=== PATIENT | female | born 1935 | race Caucasian/White ===

== ENCOUNTER 2018-09-20 08:59 | Emergency (ER) | payer MEDICARE, OTHER, SELFPAY ==
[2018-09-20] VITALS (7 sets, daily range): BP systolic 147–174; BP diastolic 60–85; PULSE 87–107; RESP 15–20; TEMP 36.8; O2SAT 95–98; BMI 32.5
--- NOTE | 2018-09-20 09:12 | DI.RAD.S_ITS ---
PROCEDURE: XR CHEST 2V INDICATIONS: SOB, orthopnea TECHNIQUE: 2 views of the chest were acquired. COMPARISON: [facility], , CHEST 1 VIEW, 02/19/2017, 9:30. FINDINGS: Surgical changes and devices: None. Lungs and pleura: Lungs are clear. No pleural effusions or pneumothorax. There may be mild scarring within the lung apices. There Mediastinum: Mediastinal contours are normal. Heart size is normal. Bones and chest wall: No suspicious bony abnormalities. 2 compression deformities are identified within the mid to lower thoracic spine, probably representing the T8 and T11 levels. There is approximately 50-60% anterior vertebral height loss at these levels. IMPRESSION: 1. No acute cardiopulmonary process is evident. 2. Age indeterminate lower thoracic compression deformities. Dictated by: Juventino Acosta M.D. on 09/20/2018 at 8:48 Approved by: Juventino Acosta M.D. on 09/20/2018 at 8:53
--- NOTE | 2018-09-20 09:12 | DI.US.S_ITS ---
PROCEDURE: US PERIPH VENOUS LOW EXTREM BI INDICATIONS: BILATERAL LEG PAIN, SWELLING, ELEVATED DIMER, SENT BY PRIMAR TECHNIQUE: Real-time imaging, as well as color and pulse Doppler interrogation, were performed of the deep veins of both legs from the inguinal ligament to the popliteal fossa. COMPARISON: None. FINDINGS: Right: The common femoral, femoral and popliteal veins are normally compressible, and free of intraluminal thrombus. Color and pulse Doppler demonstrate normal phasic intravascular flow. There is normal augmentation response to distal compression maneuver. Left: The common femoral, femoral and popliteal veins are normally compressible, and free of intraluminal thrombus. Color and pulse Doppler demonstrate normal phasic intravascular flow. There is normal augmentation response to distal compression maneuver. IMPRESSION: Negative for deep venous thrombosis. Dictated by: Venkat Tucker M.D. on 09/20/2018 at 9:14 Approved by: Venkat Tucker M.D. on 09/20/2018 at 9:16
--- NOTE | 2018-09-20 09:14 | ED.EXTPRO ---
HPI - Extremity Problem General Chief complaint: Extremity Problem,Nontraumatic Stated complaint: possible blood clots Time Seen by Provider: 09/20/18 09:03 Source: patient and family Mode of arrival: ambulatory Limitations: no limitations History of Present Illness HPI Narrative: 82F nonsmoker with history of clot presents to the emergency department with her daughter and a chief complaint bilateral lower extremity cramping and discomfort for the past few days if not weeks. Additionally over the past day or 2 she has shortness of breath with laying flat and complains of shortness of breath with exertion worsening over the past month or so. She is not dizzy or weak or lightheaded. She denies nausea, vomiting or diarrhea. She denies any numbness, tingling. She was seen by her primary care provider, some labs were ordered and she was sent here for evaluation of ?clot? Complaint: extremity pain and extremity swelling Onset (ago): day(s) Pain Consistency: constant Location: left, right and lower extremity Quality: aching Radiation: none Relieving factors: nothing Exacerbating factors: nothing Associated symptoms: shortness of breath Related Data Home Medications Medication Instructions Recorded Confirmed aspirin 162 mg PO QPM #0 05/14/17 09/20/18 amlodipine [Norvasc] 2.5 mg PO BID #0 07/28/17 09/20/18 Gas-X 1 tab PO PRN PRN 09/20/18 09/20/18 Probiotic 1 cap PO DAILY 09/20/18 09/20/18 Vitamin B-12 1 tab PO DAILY 09/20/18 09/20/18 cyclobenzaprine 10 mg PO TID 09/20/18 09/20/18 fluconazole 150 mg PO QWEEK 09/20/18 09/20/18 hydrochlorothiazide 25 mg PO DAILY 09/20/18 09/20/18 ibuprofen 100 mg PO PRN PRN 09/20/18 09/20/18 multivitamin 1 tab PO DAILY 09/20/18 09/20/18 nystatin-triamcinolone 1 applic TOPICAL DIRECTED 09/20/18 09/20/18 Allergies Allergy/AdvReac Type Severity Reaction Status Date / Time erythromycin base Allergy Severe Rash Verified 09/20/18 09:13 [ERYTHROMYCIN BASE] ibuprofen [IBUPROFEN] Allergy Severe Rash Verified 09/20/18 09:13 Iodinated Contrast- Oral and Allergy Severe Rash Verified 09/20/18 09:13 IV Dye [IODINATED CONTRAST- ORAL AND IV DYE] morphine [MORPHINE] Allergy Severe Rash Verified 09/20/18 09:13 naproxen [From ALEVE] Allergy Severe Rash Verified 09/20/18 09:13 telmisartan [TELMISARTAN] Allergy Severe Rash Verified 09/20/18 09:13 Review of Systems Constitutional Denies chills, Denies fever(s), Denies lethargy and Denies weakness Eyes Denies change in vision, Denies eye discharge, Denies irritation and Denies loss of vision ENT Ears, Nose, Mouth, and Throat: Denies change in voice, Denies neck pain and Denies sore throat Cardiovascular Denies chest pain, Reports pedal edema, Denies irregular heart rhythm, Denies lightheadedness, Denies palpitations, Reports dyspnea, Denies dyspnea on exertion and Denies orthopnea Respiratory Denies cough, Reports dyspnea, Denies dyspnea on exertion and Denies wheezing Gastrointestinal Gastrointestinal: Denies abdominal pain, Denies change in bowel habits, Denies diarrhea, Denies nausea and Denies vomiting Genitourinary Denies hematuria, Denies flank pain, Denies urinary incontinence and Denies urinary urgency Musculoskeletal Denies neck pain Integumentary/Breasts Denies pruritus, Denies erythema, Denies rash and Denies wounds Neurologic Denies confusion, Denies loss of vision and Denies weakness Psychiatric Denies anxiety, Denies confusion, Denies depression, Denies homicidal ideation and Denies suicidal ideation Endocrine Denies palpitations Hematologic/Lymphatic Denies easy bruising Allergic/Immunologic Denies wheezing PFSH Social History Smoking Status: Never smoker Social History (Reviewed 09/20/18 @ : by Ankur Nunez DO) Smoking Status: Never smoker Exam Narrative Exam Narrative: GENERAL: This is a well-nourished, well-developed patient, in mild distress. HEAD: Atraumatic. Normocephalic. No temporal or scalp tenderness. EYES: Pupils equal round and reactive. Extraocular motions intact. No scleral icterus. No injection or drainage. ENT: Nose without bleeding, purulent drainage or septal hematoma. Throat without erythema, tonsillar hypertrophy or exudate. Uvula midline. Airway patent. NECK: Trachea midline. No JVD or lymphadenopathy. Supple, nontender, no meningeal signs. CARDIOVASCULAR: Regular rate and rhythm without murmurs, gallops, or rubs. RESPIRATORY: Clear to auscultation. Breath sounds equal bilaterally. No wheezes, rales, or rhonchi. GASTROINTESTINAL: Abdomen soft, non-tender, nondistended. No hepato-splenomegaly, or palpable masses. No guarding. EXTREMITIES: No clubbing, cyanosis, or edema. No joint tenderness, effusion, or edema noted. BACK: Nontender without deformity or crepitance. No flank tenderness. NEURO: AOx3. SKIN: No rash or erythema. Initial Vital Signs Initial Vital Signs: Vital Signs Temperature 98.2 F 09/20/18 09:13 Pulse Rate 107 H 09/20/18 09:13 Respiratory Rate 18 09/20/18 09:13 Blood Pressure 174/85 H 09/20/18 09:13 Pulse Oximetry 97 09/20/18 09:13 Course Orders Ordered: ED Orders 09/20/18 09:12 US periph venous low extrem bi Stat XR chest 2V Stat 09/20/18 09:30 EKG-12 Lead Stat 09/20/18 10:15 B Type Natriuretic Peptide Stat Basic Metabolic Panel Stat Complete Blood Count AUTO DIFF Stat D Dimer Stat Troponin & CK Cardiac Panel Stat 09/20/18 11:12 CT angio chest PE protocol Stat 09/20/18 12:03 Troponin I Stat 09/20/18 13:45 EKG-12 Lead Routine Discontinued Medications Diphenhydramine HCl (Benadryl) 12.5 mg IV NOW ONE Stop: 09/20/18 11:13 Last Admin: 09/20/18 12:07 Dose: 12.5 mg Methylprednisolone (Solu-Medrol 125 Mg Vial) 125 mg IV NOW ONE Stop: 09/20/18 11:13 Last Admin: 09/20/18 12:07 Dose: 125 mg Consultations Consultation #1: call to [facility] where Dr. Johnson works, to request recent labs and clinic note Time: 09:23 Consultation #2: call to hospitalist regarding elevated troponin with worsening orthopnea and exertional dyspnea. We cannot do stress test until 09/24, requests a call to cardio hospitalist at [facility] is happy to accept patient in transfer Vital Signs - 8 hr 09/20/18 10:41 09/20/18 11:30 09/20/18 12:30 Pulse Rate 87 91 H 92 H Respiratory Rate 16 20 15 Blood Pressure Blood Pressure [Left Arm] 154/67 H 171/61 H 147/62 H Pulse Oximetry 96 98 98 09/20/18 13:30 09/20/18 14:30 09/20/18 16:19 Pulse Rate 89 93 H 98 H Respiratory Rate 16 15 15 Blood Pressure 174/75 H Blood Pressure [Left Arm] 153/65 H 164/60 H Pulse Oximetry 96 95 96 MDM - Extremity (Nontraumatic) Lab Data Result diagrams: 09/20/18 10:15 09/20/18 10:15 Lab Results 09/20/18 09/20/18 09/20/18 Range/Units 10:15 10:15 10:15 WBC 6.7 (4.5-11.0) X10^3/uL RBC 5.39 H (4.0-5.2) X10^6/uL Hgb 15.4 (12.0-16.0) g/dL Hct 46.1 H (36-46) % MCV 85.6 (80-100) fL MCH 28.5 (26-34) PG MCHC 33.3 (30-36) % RDW 14.8 (11.6-14.8) % Plt Count 247 (150-400) X10^3/uL Neut % (Auto) 55.6 (50-75) % Lymph % (Auto) 34.3 (25-40) % Bacon % (Auto) 8.5 (3-14) % Eos % (Auto) 1.3 L (2-4) % Baso % (Auto) 0.3 (0-2) % Neut # (Auto) 3700 (0247-6831) /uL Lymph # (Auto) 2300 (3262-2492) /uL Bacon # (Auto) 600 (0-900) /uL Eos # (Auto) 100 (0-450) /uL Baso # (Auto) 0 (0-100) /uL D-Dimer 283 H (<230) ng/mL Sodium 138 (137-145) mmol/L Potassium 4.0 (3.4-5.1) mmol/L Chloride 100 (98-107) mmol/L Carbon Dioxide 26 (22-32) mmol/L BUN 17 (7-17) mg/dL Creatinine 0.70 (0.52-1.04) mg/dL Estimated GFR > 60.0 (>60) mL/min BUN/Creatinine Ratio 24.3 H (6-22) Glucose 110 (80-110) mg/dL Calcium 9.4 (8.4-10.2) mg/dL Total Creatine Kinase 74 (30-135) U/L CK-MB (CK-2) TNP CK-MB (CK-2) Rel Index TNP Troponin I 0.113 H (0.01-0.034) ng/mL B-Natriuretic Peptide < 100 (<100) 09/20/18 Range/Units 12:03 WBC (4.5-11.0) X10^3/uL RBC (4.0-5.2) X10^6/uL Hgb (12.0-16.0) g/dL Hct (36-46) % MCV (80-100) fL MCH (26-34) PG MCHC (30-36) % RDW (11.6-14.8) % Plt Count (150-400) X10^3/uL Neut % (Auto) (50-75) % Lymph % (Auto) (25-40) % Bacon % (Auto) (3-14) % Eos % (Auto) (2-4) % Baso % (Auto) (0-2) % Neut # (Auto) (4313-0718) /uL Lymph # (Auto) (5139-4942) /uL Bacon # (Auto) (0-900) /uL Eos # (Auto) (0-450) /uL Baso # (Auto) (0-100) /uL D-Dimer (<230) ng/mL Sodium (137-145) mmol/L Potassium (3.4-5.1) mmol/L Chloride (98-107) mmol/L Carbon Dioxide (22-32) mmol/L BUN (7-17) mg/dL Creatinine (0.52-1.04) mg/dL Estimated GFR (>60) mL/min BUN/Creatinine Ratio (6-22) Glucose (80-110) mg/dL Calcium (8.4-10.2) mg/dL Total Creatine Kinase (30-135) U/L CK-MB (CK-2) CK-MB (CK-2) Rel Index Troponin I 0.133 H* (0.01-0.034) ng/mL B-Natriuretic Peptide (<100) Urine Dip Bedside Urine Glucose Negative Bedside Urine Bilirubin - Negative Bedside Urine Ketone - Negative Urine Specific [place] 1.015 Bedside Urine Occult Blood +/- Bedside Urine pH 7.0 Bedside Urine Protein - Negative Bedside Urine Urobilinogen - Negative Bedside Urine Nitrite - Negative Bedside Urine Leukocytes - Negative Esterase Imaging Data Chest x-ray: Radiologist's impression: [facility] DATE TYPE STATUS AUTHOR Hx 09/20/18 09:12 Juventino Acosta 09/20/18 09:12 Venkat Tucker Marie T 82, [id number] REG ER, ED.LOC - Main ED: R07 162.56cm 86.183kg BMI: 32.6kg/m? Extremity Problem,Nontraumatic Search Chart Rash Rash Rash Rash Rash Rash ONSET Today 09:13 Lida Townsend 82 F 1935 [place] [address] XRay Report Signed Patient: Lida Townsend TMR#: [id number] : 1935cct:[id number] Age/Sex: 82 / FDate of Service: 09/20/18 Loc: ED Accession Number: [id number] Procedure: XR chest 2V Ordering Provider: Ankur Nunez D.O. PROCEDURE: XR CHEST 2V INDICATIONS: SOB, orthopnea TECHNIQUE: 2 views of the chest were acquired. COMPARISON: [facility], , CHEST 1 VIEW, 02/19/2017, 9:30. FINDINGS: Surgical changes and devices: None. Lungs and pleura: Lungs are clear. No pleural effusions or pneumothorax. There may be mild scarring within the lung apices. There Mediastinum: Mediastinal contours are normal. Heart size is normal. Bones and chest wall: No suspicious bony abnormalities. 2 compression deformities are identified within the mid to lower thoracic spine, probably representing the T8 and T11 levels. There is approximately 50-60% anterior vertebral height loss at these levels. IMPRESSION: 1. No acute cardiopulmonary process is evident. 2. Age indeterminate lower thoracic compression deformities. Dictated by: Juventino Acosta M.D. on 09/20/2018 at 8:48 Approved by: Juventino Acosta M.D. on 09/20/2018 at 8:53 Venous US: Radiologist's impression: [address] [address] Ultrasound Report Signed Patient: Lida Townsend TMR#: [id number] : 1936Acct:[id number] Age/Sex: 82 / FDate of Service: 09/20/18 Loc: ED Accession Number: [id number] Procedure: US perip venous low extrem bi Ordering Provider: Ankur Nunez D.O. PROCEDURE: US PERIP VENOUS LOW EXTREM BI INDICATIONS: BILATERAL LEG PAIN, SWELLING, ELEVATED DIMER, SENT BY PRIMAR TECHNIQUE: Real-time imaging, as well as color and pulse Doppler interrogation, were performed of the deep veins of both legs from the inguinal ligament to the popliteal fossa. COMPARISON: None. FINDINGS: Right: The common femoral, femoral and popliteal veins are normally compressible, and free of intraluminal thrombus. Color and pulse Doppler demonstrate normal phasic intravascular flow. There is normal augmentation response to distal compression maneuver. Left: The common femoral, femoral and popliteal veins are normally compressible, and free of intraluminal thrombus. Color and pulse Doppler demonstrate normal phasic intravascular flow. There is normal augmentation response to distal compression maneuver. IMPRESSION: Negative for deep venous thrombosis. Dictated by: Venkat Tucker M.D. on 09/20/2018 at 9:14 ECG Data Attestation EKG: I personally reviewed and interpreted this ECG as follows: Prior ECG tracings: not available for review Interpretation: EKG is normal sinus rhythm rate [89 ] and free of any signs of ischemia or ectopy. No ST segmental elevation or depression. No T wave inversions. Incomplete right bundle-branch block. TN 181, QRS 95, QTC 356 Discharge Plan Departure Patient Disposition: [facility] Clinical Impression: Acute non-ST elevation myocardial infarction (NSTEMI) Discharge Date/Time: 09/20/18 16:20 Interventions: ED Discharge Assessment Last Done: 09/20/18 16:19 Prescriptions: No Action aspirin 81 MG tablet,delayed release (DR/EC) 162 mg PO QPM Qty: 0 RF: 0 amlodipine [Norvasc] 2.5 MG tablet 2.5 mg PO BID Qty: 0 RF: 0 cyclobenzaprine 10 mg tablet 10 mg PO TID RF: 0 fluconazole 150 mg tablet 150 mg PO QWEEK RF: 0 hydrochlorothiazide 25 mg tablet 25 mg PO DAILY RF: 0 multivitamin Tablet 1 tab PO DAILY RF: 0 nystatin-triamcinolone 100,000-0.1 unit/gram-% ointment 1 applic topical DIRECTED RF: 0 ibuprofen 200 mg Tablet 100 mg PO PRN PRN (Reason: PAIN) RF: 0 Gas-X 1 tab PO PRN PRN (Reason: gas) RF: 0 Probiotic 1 cap PO DAILY RF: 0 Vitamin B-12 1 tab PO DAILY RF: 0 Referrals: Zoe Bass PA-C [Primary Care Provider] -
--- NOTE | 2018-09-20 09:17 | ED_ITS ---
HPI - Extremity Problem General Chief complaint: Extremity Problem,Nontraumatic Stated complaint: possible blood clots Time Seen by Provider: 09/20/18 09:03 Source: patient and family Mode of arrival: ambulatory Limitations: no limitations History of Present Illness HPI Narrative: 82F nonsmoker with history of clot presents to the emergency department with her daughter and a chief complaint bilateral lower extremity cramping and discomfort for the past few days if not weeks. Additionally over the past day or 2 she has shortness of breath with laying flat and complains of shortness of breath with exertion worsening over the past month or so. She is not dizzy or weak or lightheaded. She denies nausea, vomiting or diarrhea. She denies any numbness, tingling. She was seen by her primary care provider, some labs were ordered and she was sent here for evaluation of ?clot? Complaint: extremity pain and extremity swelling Onset (ago): day(s) Pain Consistency: constant Location: left, right and lower extremity Quality: aching Radiation: none Relieving factors: nothing Exacerbating factors: nothing Associated symptoms: shortness of breath Related Data Home Medications Medication Instructions Recorded Confirmed aspirin 162 mg PO QPM #0 05/14/17 09/20/18 amlodipine [Norvasc] 2.5 mg PO BID #0 07/28/17 09/20/18 Gas-X 1 tab PO PRN PRN 09/20/18 09/20/18 Probiotic 1 cap PO DAILY 09/20/18 09/20/18 Vitamin B-12 1 tab PO DAILY 09/20/18 09/20/18 cyclobenzaprine 10 mg PO TID 09/20/18 09/20/18 fluconazole 150 mg PO QWEEK 09/20/18 09/20/18 hydrochlorothiazide 25 mg PO DAILY 09/20/18 09/20/18 ibuprofen 100 mg PO PRN PRN 09/20/18 09/20/18 multivitamin 1 tab PO DAILY 09/20/18 09/20/18 nystatin-triamcinolone 1 applic TOPICAL DIRECTED 09/20/18 09/20/18 Allergies Allergy/AdvReac Type Severity Reaction Status Date / Time erythromycin base Allergy Severe Rash Verified 09/20/18 09:13 [ERYTHROMYCIN BASE] ibuprofen [IBUPROFEN] Allergy Severe Rash Verified 09/20/18 09:13 Iodinated Contrast- Oral and Allergy Severe Rash Verified 09/20/18 09:13 IV Dye [IODINATED CONTRAST- ORAL AND IV DYE] morphine [MORPHINE] Allergy Severe Rash Verified 09/20/18 09:13 naproxen [From ALEVE] Allergy Severe Rash Verified 09/20/18 09:13 telmisartan [TELMISARTAN] Allergy Severe Rash Verified 09/20/18 09:13 Review of Systems Constitutional Denies chills, Denies fever(s), Denies lethargy and Denies weakness Eyes Denies change in vision, Denies eye discharge, Denies irritation and Denies loss of vision ENT Ears, Nose, Mouth, and Throat: Denies change in voice, Denies neck pain and Denies sore throat Cardiovascular Denies chest pain, Reports pedal edema, Denies irregular heart rhythm, Denies lightheadedness, Denies palpitations, Reports dyspnea, Denies dyspnea on exertion and Denies orthopnea Respiratory Denies cough, Reports dyspnea, Denies dyspnea on exertion and Denies wheezing Gastrointestinal Gastrointestinal: Denies abdominal pain, Denies change in bowel habits, Denies diarrhea, Denies nausea and Denies vomiting Genitourinary Denies hematuria, Denies flank pain, Denies urinary incontinence and Denies urinary urgency Musculoskeletal Denies neck pain Integumentary/Breasts Denies pruritus, Denies erythema, Denies rash and Denies wounds Neurologic Denies confusion, Denies loss of vision and Denies weakness Psychiatric Denies anxiety, Denies confusion, Denies depression, Denies homicidal ideation and Denies suicidal ideation Endocrine Denies palpitations Hematologic/Lymphatic Denies easy bruising Allergic/Immunologic Denies wheezing PFSH Social History Smoking Status: Never smoker Social History (Reviewed 09/20/18 @ : by Ankur Nunez DO) Smoking Status: Never smoker Exam Narrative Exam Narrative: GENERAL: This is a well-nourished, well-developed patient, in mild distress. HEAD: Atraumatic. Normocephalic. No temporal or scalp tenderness. EYES: Pupils equal round and reactive. Extraocular motions intact. No scleral icterus. No injection or drainage. ENT: Nose without bleeding, purulent drainage or septal hematoma. Throat without erythema, tonsillar hypertrophy or exudate. Uvula midline. Airway patent. NECK: Trachea midline. No JVD or lymphadenopathy. Supple, nontender, no meninge al signs. CARDIOVASCULAR: Regular rate and rhythm without murmurs, gallops, or rubs. RESPIRATORY: Clear to auscultation. Breath sounds equal bilaterally. No wheezes, rales, or rhonchi. GASTROINTESTINAL: Abdomen soft, non-tender, nondistended. No hepato- splenomegaly, or palpable masses. No guarding. EXTREMITIES: No clubbing, cyanosis, or edema. No joint tenderness, effusion, or edema noted. BACK: Nontender without deformity or crepitance. No flank tenderness. NEURO: AOx3. SKIN: No rash or erythema. Initial Vital Signs Initial Vital Signs: Vital Signs Temperature 98.2 F 09/20/18 09:13 Pulse Rate 107 H 09/20/18 09:13 Respiratory Rate 18 09/20/18 09:13 Blood Pressure 174/85 H 09/20/18 09:13 Pulse Oximetry 97 09/20/18 09:13 Course Orders Ordered: ED Orders 09/20/18 09:12 US periph venous low extrem bi Stat XR chest 2V Stat 09/20/18 09:30 EKG-12 Lead Stat 09/20/18 10:15 B Type Natriuretic Peptide Stat Basic Metabolic Panel Stat Complete Blood Count AUTO DIFF Stat D Dimer Stat Troponin & CK Cardiac Panel Stat 09/20/18 11:12 CT angio chest PE protocol Stat 09/20/18 12:03 Troponin I Stat 09/20/18 13:45 EKG-12 Lead Routine Discontinued Medications Diphenhydramine HCl (Benadryl) 12.5 mg IV NOW ONE Stop: 09/20/18 11:13 Last Admin: 09/20/18 12:07 Dose: 12.5 mg Methylprednisolone (Solu-Medrol 125 Mg Vial) 125 mg IV NOW ONE Stop: 09/20/18 11:13 Last Admin: 09/20/18 12:07 Dose: 125 mg Consultations Consultation #1: call to [facility] where Dr. Johnson works, to request recent labs and clinic note Time: 09:23 Consultation #2: call to hospitalist regarding elevated troponin with worsening orthopnea and exertional dyspnea. We cannot do stress test until 09/24, requests a call to cardio hospitalist at [facility] is happy to accept patient in transfer Vital Signs - 8 hr 09/20/18 10:41 09/20/18 11:30 09/20/18 12:30 Pulse Rate 87 91 H 92 H Respiratory Rate 16 20 15 Blood Pressure Blood Pressure [Left Arm] 154/67 H 171/61 H 147/62 H Pulse Oximetry 96 98 98 09/20/18 13:30 09/20/18 14:30 09/20/18 16:19 Pulse Rate 89 93 H 98 H Respiratory Rate 16 15 15 Blood Pressure 174/75 H Blood Pressure [Left Arm] 153/65 H 164/60 H Pulse Oximetry 96 95 96 MDM - Extremity (Nontraumatic) Lab Data Result diagrams: 09/20/18 10:15 09/20/18 10:15 Lab Results 09/20/18 09/20/18 09/20/18 Range/Units 10:15 10:15 10:15 WBC 6.7 (4.5-11.0) X10^3/uL RBC 5.39 H (4.0-5.2) X10^6/uL Hgb 15.4 (12.0-16.0) g/dL Hct 46.1 H (36-46) % MCV 85.6 (80-100) fL MCH 28.5 (26-34) PG MCHC 33.3 (30-36) % RDW 14.8 (11.6-14.8) % Plt Count 247 (150-400) X10^3/uL Neut % (Auto) 55.6 (50-75) % Lymph % (Auto) 34.3 (25-40) % [place] % (Auto) 8.5 (3-14) % Eos % (Auto) 1.3 L (2-4) % Baso % (Auto) 0.3 (0-2) % Neut # (Auto) 3700 (4181-0150) /uL Lymph # (Auto) 2300 (4039-4321) /uL [place] # (Auto) 600 (0-900) /uL Eos # (Auto) 100 (0-450) /uL Baso # (Auto) 0 (0-100) /uL D-Dimer 283 H (<230) ng/mL Sodium 138 (137-145) mmol/L Potassium 4.0 (3.4-5.1) mmol/L Chloride 100 (98-107) mmol/L Carbon Dioxide 26 (22-32) mmol/L BUN 17 (7-17) mg/dL Creatinine 0.70 (0.52-1.04) mg/dL Estimated GFR > 60.0 (>60) mL/min BUN/Creatinine Ratio 24.3 H (6-22) Glucose 110 (80-110) mg/dL Calcium 9.4 (8.4-10.2) mg/dL Total Creatine Kinase 74 (30-135) U/L CK-MB (CK-2) TNP CK-MB (CK-2) Rel Index TNP Troponin I 0.113 H (0.01-0.034) ng/mL B-Natriuretic Peptide < 100 (<100) 09/20/18 Range/Units 12:03 WBC (4.5-11.0) X10^3/uL RBC (4.0-5.2) X10^6/uL Hgb (12.0-16.0) g/dL Hct (36-46) % MCV (80-100) fL MCH (26-34) PG MCHC (30-36) % RDW (11.6-14.8) % Plt Count (150-400) X10^3/uL Neut % (Auto) (50-75) % Lymph % (Auto) (25-40) % [place] % (Auto) (3-14) % Eos % (Auto) (2-4) % Baso % (Auto) (0-2) % Neut # (Auto) (3296-4894) /uL Lymph # (Auto) (4507-0597) /uL [place] # (Auto) (0-900) /uL Eos # (Auto) (0-450) /uL Baso # (Auto) (0-100) /uL D-Dimer (<230) ng/mL Sodium (137-145) mmol/L Potassium (3.4-5.1) mmol/L Chloride (98-107) mmol/L Carbon Dioxide (22-32) mmol/L BUN (7-17) mg/dL Creatinine (0.52-1.04) mg/dL Estimated GFR (>60) mL/min BUN/Creatinine Ratio (6-22) Glucose (80-110) mg/dL Calcium (8.4-10.2) mg/dL Total Creatine Kinase (30-135) U/L CK-MB (CK-2) CK-MB (CK-2) Rel Index Troponin I 0.133 H* (0.01-0.034) ng/mL B-Natriuretic Peptide (<100) Urine Dip Bedside Urine Glucose Negative Bedside Urine Bilirubin - Negative Bedside Urine Ketone - Negative Urine Specific Vaughn 1.015 Bedside Urine Occult Blood +/- Bedside Urine pH 7.0 Bedside Urine Protein - Negative Bedside Urine Urobilinogen - Negative Bedside Urine Nitrite - Negative Bedside Urine Leukocytes - Negative Esterase Imaging Data Chest x-ray: Radiologist's impression: [facility] DATE TYPE STATUS AUTHOR Hx 09/20/18 09:12 Juventino Acosta 09/20/18 09:12 Venkat Tucker Marie T 82, [id number] REG ER, ED.LOC - Main ED: R07 162.56cm 86.183kg BMI: 32.6kg/m? Extremity Problem,Nontraumatic Search Chart Rash Rash Rash Rash Rash Rash ONSET Today 09:13 Lida Townsend 82 F 1935 [place] [address] XRay Report Signed Patient: Lida Townsend TMR#: [id number] : 1935cct:[id number] Age/Sex: 82 / FDate of Service: 09/20/18 Loc: ED Accession Number: [id number] Procedure: XR chest 2V Ordering Provider: Ankur Nunez D.O. PROCEDURE: XR CHEST 2V INDICATIONS: SOB, orthopnea TECHNIQUE: 2 views of the chest were acquired. COMPARISON: [facility], , CHEST 1 VIEW, 02/19/2017, 9:30. FINDINGS: Surgical changes and devices: None. Lungs and pleura: Lungs are clear. No pleural effusions or pneumothorax. There may be mild scarring within the lung apices. There Mediastinum: Mediastinal contours are normal. Heart size is normal. Bones and chest wall: No suspicious bony abnormalities. 2 compression deformities are identified within the mid to lower thoracic spine, probably representing the T8 and T11 levels. There is approximately 50-60% anterior vertebral height loss at these levels. IMPRESSION: 1. No acute cardiopulmonary process is evident. 2. Age indeterminate lower thoracic compression deformities. Dictated by: Juventino Acosta M.D. on 09/20/2018 at 8:48 Approved by: Juventino Acosta M.D. on 09/20/2018 at 8:53 Venous US: Radiologist's impression: [address] [address] Ultrasound Report Signed Patient: Lida Townsend TMR#: [id number] : 1936Acct:[id number] Age/Sex: 82 / FDate of Service: 09/20/18 Loc: ED Accession Number: [id number] Procedure: US perip venous low extrem bi Ordering Provider: Ankur Nunez D.O. PROCEDURE: US PERIP VENOUS LOW EXTREM BI INDICATIONS: BILATERAL LEG PAIN, SWELLING, ELEVATED DIMER, SENT BY PRIMAR TECHNIQUE: Real-time imaging, as well as color and pulse Doppler interrogation, were performed of the deep veins of both legs from the inguinal ligament to the popliteal fossa. COMPARISON: None. FINDINGS: Right: The common femoral, femoral and popliteal veins are normally compressible, and free of intraluminal thrombus. Color and pulse Doppler demonstrate normal phasic intravascular flow. There is normal augmentation response to distal compression maneuver. Left: The common femoral, femoral and popliteal veins are normally compressible, and free of intraluminal thrombus. Color and pulse Doppler demonstrate normal phasic intravascular flow. There is normal augmentation response to distal compression maneuver. IMPRESSION: Negative for deep venous thrombosis. Dictated by: Venkat Tucker M.D. on 09/20/2018 at 9:14 ECG Data Attestation EKG: I personally reviewed and interpreted this ECG as follows: Prior ECG tracings: not available for review Interpretation: EKG is normal sinus rhythm rate [89 ] and free of any signs of ischemia or ectopy. No ST segmental elevation or depression. No T wave inversions. Incomplete right bundle-branch block. OH 181, QRS 95, QTC 356 Discharge Plan Departure Patient Disposition: [facility] Clinical Impression: Acute non-ST elevation myocardial infarction (NSTEMI) Discharge Date/Time: 09/20/18 16:20 Interventions: ED Discharge Assessment Last Done: 09/20/18 16:19 Prescriptions: No Action aspirin 81 MG tablet,delayed release (DR/EC) 162 mg PO QPM Qty: 0 RF: 0 amlodipine [Norvasc] 2.5 MG tablet 2.5 mg PO BID Qty: 0 RF: 0 cyclobenzaprine 10 mg tablet 10 mg PO TID RF: 0 fluconazole 150 mg tablet 150 mg PO QWEEK RF: 0 hydrochlorothiazide 25 mg tablet 25 mg PO DAILY RF: 0 multivitamin Tablet 1 tab PO DAILY RF: 0 nystatin-triamcinolone 100,000-0.1 unit/gram-% ointment 1 applic topical DIRECTED RF: 0 ibuprofen 200 mg Tablet 100 mg PO PRN PRN (Reason: PAIN) RF: 0 Gas-X 1 tab PO PRN PRN (Reason: gas) RF: 0 Probiotic 1 cap PO DAILY RF: 0 Vitamin B-12 1 tab PO DAILY RF: 0 Referrals: Zoe Bass PA-C [Primary Care Provider] -
--- NOTE | 2018-09-20 09:40 | PC.NURSE ---
Patient has no veins that I can find at this time that would support an IV, states she has had IV's in her feet and neck before due to bad veins. I spoke with Dr. Nunez about just doing a blood draw to start. She also reports she has had cardiac/respiratory arrest from contrast in the past so no need for IV that is large at this time since she will not be receiving contrast CT regardless. Vascular US of legs in progress, I called lab to come draw patient.
--- NOTE | 2018-09-20 09:44 | PC.NURSE ---
Pain in bilateral legs that radiates up into her back, some swelling noted. No redness or heart.
[2018-09-20 10:26] LABS: Add Manual Diff / Slide Review NO; Basophils Absolute Auto 0 /uL (0-100); Basophils Percent Auto 0.3 % (0-2); Eosinophils Absolute Auto 100 /uL (0-450); Eosinophils Percent Auto 1.3 % (2-4); Hematocrit 46.1 % (36-46); Hemoglobin 15.4 g/dL (12.0-16.0); Lymphocytes Absolute Auto 2300 /uL (1100-4500); Lymphocytes Percent Auto 34.3 % (25-40); Mean Corpuscular HGB Conc 33.3 % (30-36); Mean Corpuscular Hemoglobin 28.5 PG (26-34); Mean Corpuscular Volume 85.6 fL (80-100); Monocytes Absolute Auto 600 /uL (0-900); Monocytes Percent Auto 8.5 % (3-14); Neutrophils Absolute Auto 3700 /uL (1500-7000); Neutrophils Percent Auto 55.6 % (50-75); Platelet Count 247 X10^3/uL (150-400); Red Blood Cell Count 5.39 X10^6/uL (4.0-5.2); Red Cell Distribution Width 14.8 % (11.6-14.8); White Blood Cell Count 6.7 X10^3/uL (4.5-11.0)
[2018-09-20 10:37] LABS: D Dimer 283 ng/mL (<230)
[2018-09-20 10:39] LABS: BUN Creatinine Ratio 24.3 (6-22); Blood Urea Nitrogen 17 mg/dL (7-17); Calcium 9.4 mg/dL (8.4-10.2); Carbon Dioxide 26 mmol/L (22-32); Chloride 100 mmol/L (98-107); Creatine Kinase 74 U/L (30-135); Estimated Glomerular Filt Rate > 60.0 mL/min (>60); Glucose 110 mg/dL (80-110); HEMOLYSIS 39 (0-50); Sodium 138 mmol/L (137-145)
[2018-09-20 10:50] LABS: Troponin I 0.113 ng/mL (0.01-0.034)
[2018-09-20 10:55] LABS: B Type Natriuretic Peptide < 100 (<100)
--- NOTE | 2018-09-20 11:12 | DI.CT.S_ITS ---
PROCEDURE: CT ANGIO CHEST PE PROTOCOL INDICATIONS: SOB, +trop, +dimer TECHNIQUE: After the administration of intravenous contrast, 2 mm thick sections acquired from the pulmonary apices to the posterior costophrenic angles. 3-dimensional maximum intensity projection (MIP) coronal and sagittal reformats were then acquired through the thorax. For radiation dose reduction, the following was used: automated exposure control, adjustment of mA and/or kV according to patient size. COMPARISON: None. FINDINGS: Image quality: Excellent. Pulmonary arteries: Pulmonary arteries are normal in size, and demonstrate no intraluminal filling defects to suggest central pulmonary embolism. Lungs and pleura: Lungs are clear. No pleural effusions or pneumothorax. Central and peripheral airways are patent. Mediastinum: Heart size is normal, without pericardial effusion. No mediastinal or hilar adenopathy. Thoracic aorta is normal in caliber and enhancement. Scattered atheromatous calcifications are present within the aortic arch. Esophagus is normal in caliber. There is a moderate-sized hiatal hernia. Bones and chest wall: There is a 2.9 x 1.9 cm soft tissue mass within the upper-outer quadrant of the right breast (series 4, image 40). Severe degenerative change is present throughout the thoracic spine. There is a severe T7 compression deformity which has a chronic, sclerotic appearance. Ribs and thoracic spine appear intact throughout. Thyroid gland is unremarkable. No axillary or supraclavicular adenopathy. Abdomen: Visualized upper abdominal solid organs appear normal in the early arterial phase of enhancement. IMPRESSION: 1. No acute pulmonary embolus. 2. Soft tissue mass within the upper-outer quadrant of the right breast. Mammogram and ultrasound recommended to further characterize finding. 3. Aortic atherosclerosis. Dictated by: Alison Connelly M.D. on 09/20/2018 at 12:37 Approved by: Alison Connelly M.D. on 09/20/2018 at 12:43
[2018-09-20] MEDS: methylPREDNISolone 125 MG/2 ML VIAL IV (12:07)
[2018-09-20] MEDS: diphenhydrAMINE 50 MG/ML VIAL 12.5 MG IV (12:07)
[2018-09-20 13:05] LABS: Troponin I 0.133 ng/mL (0.01-0.034)
== END 2018-09-20 16:20 | disposition short-term general hospital (02) ==
PROVIDERS: Emergency Provider Emergency Medicine; PCP Physician Assistant Medical
DX: I21.4 Non-ST elevation (NSTEMI) myocardial infarction (principal); M79.662 Pain in left lower leg; M79.661 Pain in right lower leg; R06.02 Shortness of breath
CPT/HCPCS: 36415; 36591; 71046; 71275; 80048; 81003; 82550; 83880; 84484; 85025; 85379; 93005; 93041; 93970; 96374; 96375; 99284; 99285; J1200; J2930; Q9967

== ENCOUNTER 2018-10-18 19:36 | Emergency (ER) | payer MEDICARE, OTHER, SELFPAY ==
[2018-10-18 19:42] VITALS: BP 130/64; PULSE 69; RESP 19; TEMP 36.7; O2SAT 97
--- NOTE | 2018-10-18 19:44 | DI.RAD.S_ITS ---
PROCEDURE: XR CHEST 1V INDICATIONS: chest pain TECHNIQUE: One view of the chest was acquired. COMPARISON: None. FINDINGS: Surgical changes and devices: None. Lungs and pleura: No acute consolidation. Scattered subsegmental atelectasis and/or scarring. No pleural effusions or pneumothorax. Mediastinum: Mediastinal contours appear normal. Heart size is normal. Bones and chest wall: No suspicious bony lesions. Overlying soft tissues appear unremarkable. IMPRESSION: No acute disease. Dictated by: Luis Damon M.D. on 10/18/2018 at 20:58 Approved by: Luis Damon M.D. on 10/18/2018 at 20:59
[2018-10-18 20:09] LABS: Add Manual Diff / Slide Review NO; Basophils Absolute Auto 100 /uL (0-100); Basophils Percent Auto 1.1 % (0-2); Eosinophils Absolute Auto 200 /uL (0-450); Eosinophils Percent Auto 2.4 % (2-4); Hematocrit 41.9 % (36-46); Hemoglobin 14.3 g/dL (12.0-16.0); Lymphocytes Absolute Auto 2900 /uL (1100-4500); Lymphocytes Percent Auto 31.2 % (25-40); Mean Corpuscular HGB Conc 34.2 % (30-36); Mean Corpuscular Hemoglobin 29.1 PG (26-34); Mean Corpuscular Volume 85.2 fL (80-100); Monocytes Absolute Auto 800 /uL (0-900); Monocytes Percent Auto 8.6 % (3-14); Neutrophils Absolute Auto 5300 /uL (1500-7000); Neutrophils Percent Auto 56.7 % (50-75); Platelet Count 274 X10^3/uL (150-400); Red Blood Cell Count 4.91 X10^6/uL (4.0-5.2); Red Cell Distribution Width 14.9 % (11.6-14.8); White Blood Cell Count 9.4 X10^3/uL (4.5-11.0)
--- NOTE | 2018-10-18 20:11 | ED_ITS ---
HPI - Chest Pain General Chief Complaint: Chest Pain Stated Complaint: CHEST TWINGES S/P STENT PLACEMENT Time Seen by Provider: 10/18/18 20:11 Source: patient Mode of arrival: ambulatory Limitations: no limitations History of Present Illness HPI narrative: Patient is an 82-year-old female with a known history of coronary artery disease. She states that she has had a ?heart attack? in the past. Has stents placed. Stated that since 0300 hours this afternoon she has had ?twinges? in the center of her chest. Stated that they do not get worse with palpation or movement or breathing. Do not radiate anywhere. She states that they come on last seconds and then completely resolved. She states she has them several times a minute. States this is different symptoms from when she was diagnosed with a heart attack. She has had constant symptoms since 1500 hours Related Data Home Medications Medication Instructions Recorded Confirmed aspirin 162 mg PO QPM #0 05/14/17 09/20/18 amlodipine [Norvasc] 2.5 mg PO BID #0 07/28/17 09/20/18 Gas-X 1 tab PO PRN PRN 09/20/18 09/20/18 Probiotic 1 cap PO DAILY 09/20/18 09/20/18 Vitamin B-12 1 tab PO DAILY 09/20/18 09/20/18 cyclobenzaprine 10 mg PO TID 09/20/18 09/20/18 fluconazole 150 mg PO QWEEK 09/20/18 09/20/18 hydrochlorothiazide 25 mg PO DAILY 09/20/18 09/20/18 ibuprofen 100 mg PO PRN PRN 09/20/18 09/20/18 multivitamin 1 tab PO DAILY 09/20/18 09/20/18 nystatin-triamcinolone 1 applic TOPICAL DIRECTED 09/20/18 09/20/18 Allergies Allergy/AdvReac Type Severity Reaction Status Date / Time erythromycin base Allergy Severe Rash Verified 09/20/18 09:13 [ERYTHROMYCIN BASE] ibuprofen [IBUPROFEN] Allergy Severe Rash Verified 09/20/18 09:13 Iodinated Contrast- Oral and Allergy Severe Rash Verified 09/20/18 09:13 IV Dye [IODINATED CONTRAST- ORAL AND IV DYE] morphine [MORPHINE] Allergy Severe Rash Verified 09/20/18 09:13 naproxen [From ALEVE] Allergy Severe Rash Verified 09/20/18 09:13 telmisartan [TELMISARTAN] Allergy Severe Rash Verified 09/20/18 09:13 Review of Systems Constitutional Denies headache(s) ENT Ears, Nose, Mouth, and Throat: Denies dizziness, Denies headache(s) and Denies disequilibrium Cardiovascular Reports chest pain, Denies diaphoresis, Denies syncope, Denies rapid heart rate, Denies edema, Denies lightheadedness, Denies palpitations and Denies slow heart rate Gastrointestinal Gastrointestinal: Denies abdominal pain, Denies nausea and Denies vomiting Genitourinary Denies dysuria Musculoskeletal Denies myalgias and Denies arthralgias Integumentary/Breasts Denies rash Neurologic Denies dizziness, Denies syncope, Denies headache(s) and Denies disequilibrium Endocrine Denies palpitations Hematologic/Lymphatic Denies easy bleeding and Denies easy bruising Allergic/Immunologic Denies urticaria [facility] Medical History Coronary artery disease (Acute) Social History Smoking Status: Never smoker Social History Smoking Status: Never smoker Exam Initial Vital Signs Initial Vital Signs: Vital Signs Temperature 98.1 F 10/18/18 19:42 Pulse Rate 69 10/18/18 19:42 Respiratory Rate 19 10/18/18 19:42 Blood Pressure 130/64 10/18/18 19:42 Pulse Oximetry 97 10/18/18 19:42 Const General: cooperative, comfortable, well developed, well groomed and No acute distress Orientation: alert, awake and oriented x3 HENMT Head: normal to inspection and normocephalic Chest Chest: normal inspection of the chest, No crepitus and No tenderness Resp Effort & Inspection: normal respiratory effort Auscultation: clear to auscultation bilaterally Cardio Rate: regular rate Rhythm: regular rhythm Pulses: radial pulses present GI Inspection: non-distended Palpation: soft, No firm and No tender Skin Lesions: no lesions Rashes: no rashes Neuro General: alert, awake and oriented x3 Cognition: normal cognition Speech: speech normal Gait: normal gait Motor: muscle tone normal throughout Extrem General: normal to inspection and capillary refill normal Psych Appearance: grossly normal and well kempt Course Orders Ordered: ED Orders 10/18/18 19:44 XR chest 1V Stat EKG-12 Lead Stat 10/18/18 20:02 Complete Blood Count AUTO DIFF Stat Comprehensive Metabolic Panel Stat Lipase Stat Partial Thromboplastin Time Stat Prothrombin Time INR Stat Troponin & CK Cardiac Panel Stat 10/18/18 22:17 Troponin I Stat Vital Signs - 8 hr 10/18/18 19:42 10/18/18 20:59 10/18/18 21:52 Temperature 98.1 F Pulse Rate 69 70 70 Respiratory Rate 19 18 18 Blood Pressure 130/64 Blood Pressure [Left Arm] 160/57 H 140/54 L Pulse Oximetry 97 96 96 10/18/18 23:20 Temperature Pulse Rate 70 Respiratory Rate 18 Blood Pressure 144/54 H Blood Pressure [Left Arm] Pulse Oximetry 98 MDM - Chest Pain Lab Data Attestation: I reviewed the patient's lab results. Result diagrams: 10/18/18 20:02 10/18/18 20:02 Lab Results 10/18/18 10/18/18 10/18/18 Range/Units 20:02 20:02 20:02 WBC 9.4 (4.5-11.0) X10^3/uL RBC 4.91 (4.0-5.2) X10^6/uL Hgb 14.3 (12.0-16.0) g/dL Hct 41.9 (36-46) % MCV 85.2 (80-100) fL MCH 29.1 (26-34) PG MCHC 34.2 (30-36) % RDW 14.9 H (11.6-14.8) % Plt Count 274 (150-400) X10^3/uL Neut % (Auto) 56.7 (50-75) % Lymph % (Auto) 31.2 (25-40) % [place] % (Auto) 8.6 (3-14) % Eos % (Auto) 2.4 (2-4) % Baso % (Auto) 1.1 (0-2) % Neut # (Auto) 5300 (4051-9765) /uL Lymph # (Auto) 2900 (1955-9955) /uL [place] # (Auto) 800 (0-900) /uL Eos # (Auto) 200 (0-450) /uL Baso # (Auto) 100 (0-100) /uL PT 11.7 (10.1-12.7) SECONDS INR 1.0 (0.9-1.3) APTT 31 (26.4-36.2) SECONDS Sodium 138 (137-145) mmol/L Potassium 3.2 L (3.4-5.1) mmol/L Chloride 97 L (98-107) mmol/L Carbon Dioxide 31 (22-32) mmol/L BUN 20 H (7-17) mg/dL Creatinine 0.80 (0.52-1.04) mg/dL Estimated GFR > 60.0 (>60) mL/min BUN/Creatinine Ratio 25.0 H (6-22) Glucose 116 H (80-110) mg/dL Calcium 9.9 (8.4-10.2) mg/dL Total Bilirubin 0.5 (0.2-1.3) mg/dL AST 23 (14-36) IU/L ALT < 6 L (9-52) IU/L Alkaline Phosphatase 58 (38-126) U/L Total Creatine Kinase 38 (30-135) U/L CK-MB (CK-2) TNP CK-MB (CK-2) Rel Index TNP Troponin I < 0.012 (0.01-0.034) ng/mL Total Protein 7.8 (6.3-8.2) g/dL Albumin 4.5 (3.5-5.0) g/dL Globulin 3.3 (1.7-4.1) g/dL Albumin/Globulin Ratio 1.4 (1.0-2.8) Lipase 133 (23-300) U/L /10/31 Range/Units 22:17 WBC (4.5-11.0) X10^3/uL RBC (4.0-5.2) X10^6/uL Hgb (12.0-16.0) g/dL Hct (36-46) % MCV (80-100) fL MCH (26-34) PG MCHC (30-36) % RDW (11.6-14.8) % Plt Count (150-400) X10^3/uL Neut % (Auto) (50-75) % Lymph % (Auto) (25-40) % [place] % (Auto) (3-14) % Eos % (Auto) (2-4) % Baso % (Auto) (0-2) % Neut # (Auto) (0419-2734) /uL Lymph # (Auto) (7232-7997) /uL [place] # (Auto) (0-900) /uL Eos # (Auto) (0-450) /uL Baso # (Auto) (0-100) /uL PT (10.1-12.7) SECONDS INR (0.9-1.3) APTT (26.4-36.2) SECONDS Sodium (137-145) mmol/L Potassium (3.4-5.1) mmol/L Chloride (98-107) mmol/L Carbon Dioxide (22-32) mmol/L BUN (7-17) mg/dL Creatinine (0.52-1.04) mg/dL Estimated GFR (>60) mL/min BUN/Creatinine Ratio (6-22) Glucose (80-110) mg/dL Calcium (8.4-10.2) mg/dL Total Bilirubin (0.2-1.3) mg/dL AST (14-36) IU/L ALT (9-52) IU/L Alkaline Phosphatase (38-126) U/L Total Creatine Kinase (30-135) U/L CK-MB (CK-2) CK-MB (CK-2) Rel Index Troponin I < 0.012 (0.01-0.034) ng/mL Total Protein (6.3-8.2) g/dL Albumin (3.5-5.0) g/dL Globulin (1.7-4.1) g/dL Albumin/Globulin Ratio (1.0-2.8) Lipase (23-300) U/L Imaging Data Chest x-ray: Radiologist's impression: Lida Townsend 82 F [address] [address] XRay Report Signed Patient: Lida Townsend TMR#: [id number] : 8Acct:[id number] Age/Sex: 82 / FDate of Service: 10/18/18 Loc: ED Accession Number: [id number] Procedure: XR chest 1V Ordering Provider: Valerio East D.O. PROCEDURE: XR CHEST 1V INDICATIONS: chest pain TECHNIQUE: One view of the chest was acquired. COMPARISON: None. FINDINGS: Surgical changes and devices: None. Lungs and pleura: No acute consolidation. Scattered subsegmental atelectasis and/or scarring. No pleural effusions or pneumothorax. Mediastinum: Mediastinal contours appear normal. Heart size is normal. Bones and chest wall: No suspicious bony lesions. Overlying soft tissues appear unremarkable. IMPRESSION: No acute disease. Dictated by: Luis Damon M.D. on 10/18/2018 at 20:58 ECG Data Attestation: I personally reviewed and interpreted this ECG as follows: Prior ECG tracings: not available for review Interpretation: Sinus rhythm Ventricular rate is 72 Normal axis Normal QRS Normal QTC Nonspecific ST T wave changes MDM Narrative Medical decision making narrative: Chest x-ray is unremarkable. EKG is unremarkable. Patient has had 2-troponins with the 2nd troponin being greater than 6 hours of the onset of her constant symptoms and they are both negative. Her symptoms are not consistent with ACS. Will have her continue the rest of her medications as directed. 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 She was given strict return precautions. She expressed understanding and agreement plan. Discharge Plan Departure Patient Disposition: Home Clinical Impression: Atypical chest pain Discharge Date/Time: 10/18/18 23:20 Interventions: ED Discharge Assessment Last Done: 10/18/18 23:20 Instructions: DI for Atypical Chest Pain Activity Restrictions/Additional Instructions: Recommend that tomorrow you contact your primary doctor and your gear machine operator general. Return to the emergency department for any new or worsening symptoms continue all of your medications as directed Prescriptions: No Action aspirin 81 MG tablet,delayed release (DR/EC) 162 mg PO QPM Qty: 0 RF: 0 amlodipine [Norvasc] 2.5 MG tablet 2.5 mg PO BID Qty: 0 RF: 0 cyclobenzaprine 10 mg tablet 10 mg PO TID RF: 0 fluconazole 150 mg tablet 150 mg PO QWEEK RF: 0 hydrochlorothiazide 25 mg tablet 25 mg PO DAILY RF: 0 multivitamin Tablet 1 tab PO DAILY RF: 0 nystatin-triamcinolone 100,000-0.1 unit/gram-% ointment 1 applic topical DIRECTED RF: 0 ibuprofen 200 mg Tablet 100 mg PO PRN PRN (Reason: PAIN) RF: 0 Gas-X 1 tab PO PRN PRN (Reason: gas) RF: 0 Probiotic 1 cap PO DAILY RF: 0 Vitamin B-12 1 tab PO DAILY RF: 0 Referrals: Zoe Bass PA-C [Primary Care Provider] -
[2018-10-18 20:16] LABS: Prothrombin Time 11.7 SECONDS (10.1-12.7)
[2018-10-18 20:18] LABS: PTT Partial Thromboplastin Tim 31 SECONDS (26.4-36.2)
[2018-10-18 20:20] LABS: Albumin 4.5 g/dL (3.5-5.0); Albumin Globulin Ratio 1.4 (1.0-2.8); Alkaline Phosphatase 58 U/L (38-126); Aspartate Aminotransferase 23 IU/L (14-36); Bilirubin Total 0.5 mg/dL (0.2-1.3); Blood Urea Nitrogen 20 mg/dL (7-17); Calcium 9.9 mg/dL (8.4-10.2); Carbon Dioxide 31 mmol/L (22-32); Chloride 97 mmol/L (98-107); Creatine Kinase 38 U/L (30-135); Estimated Glomerular Filt Rate > 60.0 mL/min (>60); Globulin 3.3 g/dL (1.7-4.1); Glucose 116 mg/dL (80-110); HEMOLYSIS < 15 (0-50); Lipase 133 U/L (23-300); Potassium 3.2 mmol/L (3.4-5.1); Sodium 138 mmol/L (137-145); Total Protein 7.8 g/dL (6.3-8.2)
[2018-10-18 20:28] LABS: Alanine Aminotransferase < 6 IU/L (9-52)
[2018-10-18 20:32] LABS: Troponin I < 0.012 ng/mL (0.01-0.034)
[2018-10-18 20:59] VITALS: BP 160/57; PULSE 70; RESP 18; O2SAT 96
[2018-10-18 21:52] VITALS: BP 140/54; PULSE 70; RESP 18; O2SAT 96
[2018-10-18 22:49] LABS: Troponin I < 0.012 ng/mL (0.01-0.034)
[2018-10-18 23:20] VITALS: BP 144/54; PULSE 70; RESP 18; O2SAT 98
== END 2018-10-18 23:20 | disposition home or self-care (01) ==
PROVIDERS: Emergency Provider Emergency Medicine; Family Provider Physician Assistant Medical; PCP Physician Assistant Medical
DX: R07.89 Other chest pain (principal); Z95.818 Presence of other cardiac implants and grafts
CPT/HCPCS: 36415; 71045; 80053; 82550; 83690; 84484; 85025; 85610; 85730; 93005; 99282; 99285

== ENCOUNTER 2018-11-18 21:02 | Emergency (ER) | payer MEDICARE, OTHER, SELFPAY ==
--- NOTE | 2018-11-18 21:05 | ED_ITS ---
HPI - General Adult General Chief complaint: Shortness of Breath/Dyspnea Stated complaint: blood pressure going up,headache,SOB Time Seen by Provider: 11/18/18 21:05 Source: patient Mode of arrival: ambulatory Limitations: no limitations History of Present Illness HPI narrative: Patient 83-year-old female sent in by her primary doctor after she called her primary doctor today stated that she was not feeling very well. She also took her blood pressure multiple times today and it was more elevated than normal. Patient reports that her systolic blood pressures were in the 130s to 150s. Eight weeks ago she underwent a cardiac catheterization with 4 stents placed. At that time she stated that she was told that she did have a heart attack. Her only symptoms that time were lower extremity weakness. She denies any chest pain. She states she is having some shortness of breath. Her symptoms started this morning after she woke up been progressively worsened throughout the day. Related Data Home Medications Medication Instructions Recorded Confirmed aspirin 81 mg PO DAILY #0 05/14/17 11/18/18 amlodipine [Norvasc] 5 mg PO BID #0 07/28/17 11/18/18 cyclobenzaprine 2 mg PO TID 09/20/18 11/18/18 hydrochlorothiazide 25 mg PO DAILY 09/20/18 11/18/18 clopidogrel 1 tab PO DAILY 11/18/18 11/18/18 cyanocobalamin (vitamin B-12) 2,000 mcg PO DAILY 11/18/18 11/18/18 ergocalciferol (vitamin D2) 2,500 unit PO DAILY 11/18/18 11/18/18 lorazepam 1 tab PO BID 11/18/18 11/18/18 nitroglycerin 1 tab SUBLINGUAL [id number] PRN 11/18/18 11/18/18 rosuvastatin 1 tab PO DAILY 11/18/18 11/18/18 Allergies Allergy/AdvReac Type Severity Reaction Status Date / Time erythromycin base Allergy Severe Rash Verified 11/18/18 21:17 [ERYTHROMYCIN BASE] ibuprofen [IBUPROFEN] Allergy Severe Rash Verified 11/18/18 21:17 Iodinated Contrast- Oral and Allergy Severe Rash Verified 11/18/18 21:17 IV Dye [IODINATED CONTRAST- ORAL AND IV DYE] morphine [MORPHINE] Allergy Severe Rash Verified 11/18/18 21:17 naproxen [From ALEVE] Allergy Severe Rash Verified 11/18/18 21:17 telmisartan [TELMISARTAN] Allergy Severe Rash Verified 11/18/18 21:17 Review of Systems Constitutional Reports chills, Reports fatigue, Denies fever(s), Reports headache(s) and Reports malaise ENT Ears, Nose, Mouth, and Throat: Reports headache(s) Cardiovascular Denies chest pain, Denies rapid heart rate, Denies palpitations and Reports dys pnea Respiratory Denies cough, Denies pain on inspiration and Reports dyspnea Gastrointestinal Gastrointestinal: Denies abdominal pain, Denies nausea and Denies vomiting Genitourinary Denies dysuria Musculoskeletal Denies myalgias and Denies arthralgias Integumentary/Breasts Denies lesions and Denies rash Neurologic Denies behavioral changes and Reports headache(s) Psychiatric Denies behavioral changes Endocrine Reports fatigue and Denies palpitations Hematologic/Lymphatic Denies easy bleeding and Denies easy bruising [facility] Medical History Hyperlipidemia (Acute) Hypertension (Acute) Coronary artery disease (Acute) Social History Smoking Status: Never smoker Social History Smoking Status: Never smoker Exam Initial Vital Signs Initial Vital Signs: Vital Signs Temperature 98.8 F 11/18/18 21:12 Pulse Rate 80 11/18/18 21:12 Respiratory Rate 20 11/18/18 21:12 Blood Pressure 177/66 H 11/18/18 21:12 Pulse Oximetry 95 11/18/18 21:12 Const General: cooperative, comfortable, well developed, well groomed and No acute distress Orientation: alert, awake and oriented x3 [facility] Throat: tonsils normal and uvula midline Resp Effort & Inspection: normal respiratory effort Auscultation: clear to auscultation bilaterally Cardio Rate: regular rate Rhythm: regular rhythm GI Inspection: non-distended Palpation: soft, No firm and No tender Skin Lesions: no lesions Rashes: no rashes Neuro General: alert, awake and oriented x3 Cognition: normal cognition Speech: speech normal Gait: normal gait Motor: muscle tone normal throughout Sensory Exam: no sensory deficits noted Extrem General: normal to inspection and capillary refill normal Psych Appearance: grossly normal and well kempt Scores GCS [place] coma scale eye opening: Spontaneous [place] coma scale verbal response: Orientated [place] coma scale motor response: Obey commands [place] coma scale total score: 15 Course Orders Ordered: ED Orders 11/18/18 21:06 XR chest 1V Stat EKG-12 Lead Stat 11/18/18 22:10 B Type Natriuretic Peptide Stat Complete Blood Count AUTO DIFF Stat Partial Thromboplastin Time Stat Prothrombin Time INR Stat 11/18/18 22:50 Comprehensive Metabolic Panel Stat Lipase Stat Troponin I Stat 11/18/18 23:29 EKG-12 Lead Stat Nitroglycerin (Nitrostat) 0.4 mg SL [id number] PRN PRN Reason: Chest Pain Last Admin: 11/19/18 00:16 Dose: 0.4 mg Admin: 11/19/18 00:12 Dose: 0.4 mg Discontinued Medications Aspirin (Aspirin Chew) 324 mg PO NOW ONE Stop: 11/19/18 00:08 Last Admin: 11/19/18 00:10 Dose: 324 mg Vital Signs - 8 hr 11/18/18 21:12 11/18/18 21:49 11/18/18 22:00 Temperature 98.8 F Pulse Rate 80 67 72 Respiratory Rate 20 15 18 Blood Pressure 177/66 H Blood Pressure [Right Arm] 162/62 H 164/56 H Pulse Oximetry 95 98 93 11/18/18 22:30 11/18/18 23:00 11/19/18 00:00 Temperature Pulse Rate 71 69 74 Respiratory Rate 20 15 13 Blood Pressure Blood Pressure [Right Arm] 164/69 H 171/68 H 147/64 H Pulse Oximetry 96 96 96 11/19/18 00:12 11/19/18 00:16 11/19/18 00:21 Temperature Pulse Rate 78 70 71 Respiratory Rate Blood Pressure 147/64 H 138/55 L 118/49 L Blood Pressure [Right Arm] Pulse Oximetry Medical Decision Making Lab Data Lab results reviewed: Yes I reviewed the patient's lab results. Result diagrams: 11/18/18 22:10 11/18/18 22:50 Lab Results 11/18/18 11/18/18 11/18/18 Range/Units 22:10 22:10 22:50 WBC 9.9 (4.5-11.0) X10^3/uL RBC 4.87 (4.0-5.2) X10^6/uL Hgb 14.2 (12.0-16.0) g/dL Hct 41.7 (36-46) % MCV 85.6 (80-100) fL MCH 29.2 (26-34) PG MCHC 34.1 (30-36) % RDW 15.5 H (11.6-14.8) % Plt Count 247 (150-400) X10^3/uL Neut % (Auto) 63.0 (50-75) % Lymph % (Auto) 26.4 (25-40) % [place] % (Auto) 7.8 (3-14) % Eos % (Auto) 1.8 L (2-4) % Baso % (Auto) 1.0 (0-2) % Neut # (Auto) 6200 (3836-8702) /uL Lymph # (Auto) 2600 (3671-5317) /uL [place] # (Auto) 800 (0-900) /uL Eos # (Auto) 200 (0-450) /uL Baso # (Auto) 100 (0-100) /uL PT 12.0 (10.1-12.7) SECONDS INR 1.0 (0.9-1.3) APTT 29 D (26.4-36.2) SECONDS Sodium 139 (137-145) mmol/L Potassium 3.8 (3.4-5.1) mmol/L Chloride 100 (98-107) mmol/L Carbon Dioxide 31 (22-32) mmol/L BUN 17 (7-17) mg/dL Creatinine 0.70 (0.52-1.04) mg/dL Estimated GFR > 60.0 (>60) mL/min BUN/Creatinine Ratio 24.3 H (6-22) Glucose 123 H (80-110) mg/dL Calcium 10.0 (8.4-10.2) mg/dL Total Bilirubin 0.7 (0.2-1.3) mg/dL AST 27 (14-36) IU/L ALT 8 L (9-52) IU/L Alkaline Phosphatase 55 (38-126) U/L Troponin I < 0.012 (0.01-0.034) ng/mL B-Natriuretic Peptide < 100 (<100) Total Protein 7.9 (6.3-8.2) g/dL Albumin 4.5 (3.5-5.0) g/dL Globulin 3.4 (1.7-4.1) g/dL Albumin/Globulin Ratio 1.3 (1.0-2.8) Lipase 121 (23-300) U/L Imaging Data Chest x-ray: Radiologist's impression: [address] [address] XRay Report Signed Patient: Lida Townsend TMR#: [id number] : 8Acct:[id number] Age/Sex: 83 / FDate of Service: 11/18/18 Loc: ED Accession Number: [id number] Procedure: XR chest 1V Ordering Provider: Valerio East D.O. PROCEDURE: XR CHEST 1V INDICATIONS: Shortness of breath TECHNIQUE: One view of the chest was acquired. COMPARISON: [facility], , XR CHEST 1V, 10/18/2018, 20:10. FINDINGS: Surgical changes and devices: None. Lungs and pleura: Lungs are clear. No pleural effusions or pneumothorax. Mediastinum: Mediastinal contours appear normal. Heart size is normal. Bones and chest wall: No suspicious bony lesions. Overlying soft tissues appear unremarkable. IMPRESSION: No acute cardiopulmonary findings. Dictated by: Alison Connelly M.D. on 11/18/2018 at 21:43 Approved by: Alison Connelly M.D. on 11/18/2018 at 21:43 ECG Data Attestation: I personally reviewed and interpreted this ECG as follows: Prior ECG tracings: not available for review Interpretation: EKG upon arrival Sinus rhythm Ventricular rate is 75 Incomplete right bundle branch block Inverted T-waves V1 and V2 Nonspecific ST T wave changes EKG during episode of chest pain Sinus rhythm Ventricular rate is 71 Inverted T-waves V1 V2 Unchanged from prior EKG MDM Narrative Medical decision making narrative: Patient's systolic blood pressure in the 170s upon arrival. Not in any respiratory distress. Not actively having chest pain upon arrival however she did develop chest pain during her stay. This was relieved with 2 sublingual nitroglycerin. Her EKG at the time of the chest pain was unchanged from arrival. Her BNP is unremarkable. Chest x-ray is unremarkable. Given her recent KS with stent placement do have concern about another cardiac event. I did discuss the case with Dr. Pearson with Cardiology who recommended that the patient have a another stress test. I did discuss the case then with with Internal Medicine who accepts the patient in transport. Patient is stable for transport she was informed of the transport. She expressed understanding and agreement. Discharge Plan Departure Patient Disposition: [facility] Clinical Impression: Hypertension, Chest pain, Coronary artery disease Prescriptions: No Action aspirin 81 MG tablet,delayed release (DR/EC) 81 mg PO DAILY Qty: 0 RF: 0 amlodipine [Norvasc] 2.5 MG tablet 5 mg PO BID Qty: 0 RF: 0 cyclobenzaprine 10 mg tablet 2 mg PO TID RF: 0 hydrochlorothiazide 25 mg tablet 25 mg PO DAILY RF: 0 clopidogrel 75 mg tablet 1 tab PO DAILY RF: 0 nitroglycerin 0.4 mg tablet, sublingual 1 tab sublingual [id number] PRN (Reason: Chest Pain) RF: 0 lorazepam 1 mg tablet 1 tab PO BID RF: 0 rosuvastatin 40 mg tablet 1 tab PO DAILY RF: 0 cyanocobalamin (vitamin B-12) 2,000 mcg Tablet 2,000 mcg PO DAILY RF: 0 ergocalciferol (vitamin D2) 2,500 unit Capsule 2,500 unit PO DAILY RF: 0 Referrals: Zoe Bass PA-C [Primary Care Provider] -
[2018-11-18 21:12] VITALS: BP 177/66; PULSE 80; RESP 20; TEMP 37.1; O2SAT 95; BMI 35.6
[2018-11-18 21:49] VITALS: BP 162/62; PULSE 67; RESP 15; O2SAT 98
[2018-11-18 22:00] VITALS: BP 164/56; PULSE 72; RESP 18; O2SAT 93
[2018-11-18 22:23] LABS: Add Manual Diff / Slide Review NO; Basophils Absolute Auto 100 /uL (0-100); Eosinophils Absolute Auto 200 /uL (0-450); Eosinophils Percent Auto 1.8 % (2-4); Hematocrit 41.7 % (36-46); Hemoglobin 14.2 g/dL (12.0-16.0); Lymphocytes Absolute Auto 2600 /uL (1100-4500); Lymphocytes Percent Auto 26.4 % (25-40); Mean Corpuscular HGB Conc 34.1 % (30-36); Mean Corpuscular Hemoglobin 29.2 PG (26-34); Mean Corpuscular Volume 85.6 fL (80-100); Monocytes Absolute Auto 800 /uL (0-900); Monocytes Percent Auto 7.8 % (3-14); Neutrophils Absolute Auto 6200 /uL (1500-7000); Platelet Count 247 X10^3/uL (150-400); Red Blood Cell Count 4.87 X10^6/uL (4.0-5.2); Red Cell Distribution Width 15.5 % (11.6-14.8); White Blood Cell Count 9.9 X10^3/uL (4.5-11.0)
[2018-11-18 22:26] LABS: PTT Partial Thromboplastin Tim 29 SECONDS (26.4-36.2)
[2018-11-18 22:30] VITALS: BP 164/69; PULSE 71; RESP 20; O2SAT 96
[2018-11-18 22:44] LABS: B Type Natriuretic Peptide < 100 (<100)
[2018-11-18 23:00] VITALS: BP 171/68; PULSE 69; RESP 15; O2SAT 96
[2018-11-18 23:08] LABS: Alanine Aminotransferase 8 IU/L (9-52); Albumin 4.5 g/dL (3.5-5.0); Albumin Globulin Ratio 1.3 (1.0-2.8); Alkaline Phosphatase 55 U/L (38-126); Aspartate Aminotransferase 27 IU/L (14-36); BUN Creatinine Ratio 24.3 (6-22); Bilirubin Total 0.7 mg/dL (0.2-1.3); Blood Urea Nitrogen 17 mg/dL (7-17); Carbon Dioxide 31 mmol/L (22-32); Chloride 100 mmol/L (98-107); Estimated Glomerular Filt Rate > 60.0 mL/min (>60); Globulin 3.4 g/dL (1.7-4.1); Glucose 123 mg/dL (80-110); HEMOLYSIS 31 (0-50); Lipase 121 U/L (23-300); Potassium 3.8 mmol/L (3.4-5.1); Sodium 139 mmol/L (137-145); Total Protein 7.9 g/dL (6.3-8.2)
[2018-11-18 23:20] LABS: Troponin I < 0.012 ng/mL (0.01-0.034)
--- NOTE | 2018-11-18 23:37 | PC.NURSE ---
Pt reports chest pain states 2/, from sternum to back, states, I just dont feel right Notified DR East and RT called for EKG.
[2018-11-19] VITALS: BP 147/64; PULSE 74; RESP 13; O2SAT 96
[2018-11-19] MEDS: ASPIRIN 81 MG TAB 324 MG PO (00:10)
[2018-11-19 00:12] VITALS: BP 147/64; PULSE 78
[2018-11-19] MEDS: NITROGLYCERIN 0.4 MG SL TAB SL ×2 (00:12→00:16)
[2018-11-19 00:16] VITALS: BP 138/55; PULSE 70
[2018-11-19 00:21] VITALS: BP 118/49; PULSE 71
[2018-11-19 01:00] VITALS: BP 154/61; PULSE 65; RESP 12; O2SAT 94
[2018-11-19 01:41] VITALS: BP 132/55; PULSE 65; RESP 13; O2SAT 96
--- NOTE | 2018-11-19 01:41 | PC.NURSE ---
Attempted to call report to Lila at [facility], not answering at this time. Will reattempt to call report. Report given to [facility]
== END 2018-11-19 01:55 | disposition short-term general hospital (02) ==
PROVIDERS: Emergency Provider Emergency Medicine; Family Provider Physician Assistant Medical; PCP Physician Assistant Medical
DX: I10 Essential (primary) hypertension (principal); R07.9 Chest pain, unspecified; I25.10 Atherosclerotic heart disease of native coronary artery without angina pectoris
CPT/HCPCS: 36415; 36591; 71045; 80053; 83690; 83880; 84484; 85025; 85610; 85730; 93005; 99284; 99285

== ENCOUNTER 2018-12-08 14:03 | Emergency (ER) | payer MEDICARE, OTHER, SELFPAY ==
[2018-12-08] VITALS (7 sets, daily range): BP systolic 136–163; BP diastolic 45–61; PULSE 66–72; RESP 12–22; TEMP 36.2; O2SAT 96–99
--- NOTE | 2018-12-08 14:29 | DI.RAD.S_ITS ---
PROCEDURE: XR CHEST 1V INDICATIONS: chest pain TECHNIQUE: One view of the chest was acquired. COMPARISON: [facility], CR, XR CHEST 1V, 11/18/2018, 21:28. FINDINGS: Surgical changes and devices: None. Lungs and pleura: There is diffuse interstitial prominence, slightly increased when compared with the prior plain film dated 11/18/18. Mediastinum: Mediastinal contours appear normal. Heart size is mildly enlarged, as before. Bones and chest wall: No suspicious bony lesions. Overlying soft tissues appear unremarkable. IMPRESSION: Cardiomegaly and interstitial prominence suggesting fluid overload. Dictated by: Alison Connelly M.D. on 12/08/2018 at 14:04 Approved by: Alison Connelly M.D. on 12/08/2018 at 14:05
[2018-12-08] MEDS: ASPIRIN 81 MG TAB 324 MG PO (14:36)
[2018-12-08 15:27] LABS: Add Manual Diff / Slide Review NO; Basophils Absolute Auto 100 /uL (0-100); Eosinophils Absolute Auto 200 /uL (0-450); Eosinophils Percent Auto 1.8 % (2-4); Hematocrit 41.2 % (36-46); Hemoglobin 13.8 g/dL (12.0-16.0); Lymphocytes Absolute Auto 2700 /uL (1100-4500); Mean Corpuscular HGB Conc 33.6 % (30-36); Mean Corpuscular Hemoglobin 29.2 PG (26-34); Monocytes Absolute Auto 700 /uL (0-900); Monocytes Percent Auto 7.9 % (3-14); Neutrophils Absolute Auto 5300 /uL (1500-7000); Neutrophils Percent Auto 59.3 % (50-75); Platelet Count 216 X10^3/uL (150-400); Red Blood Cell Count 4.74 X10^6/uL (4.0-5.2); Red Cell Distribution Width 15.8 % (11.6-14.8)
[2018-12-08 15:33] LABS: INR 1.1 (0.9-1.3); Prothrombin Time 12.4 SECONDS (10.1-12.7)
[2018-12-08 15:36] LABS: PTT Partial Thromboplastin Tim 28 SECONDS (26.4-36.2)
[2018-12-08 15:37] LABS: Alanine Aminotransferase 7 IU/L (9-52); Albumin 4.3 g/dL (3.5-5.0); Albumin Globulin Ratio 1.3 (1.0-2.8); Alkaline Phosphatase 53 U/L (38-126); Aspartate Aminotransferase 23 IU/L (14-36); Bilirubin Total 0.6 mg/dL (0.2-1.3); Blood Urea Nitrogen 14 mg/dL (7-17); Calcium 9.8 mg/dL (8.4-10.2); Carbon Dioxide 27 mmol/L (22-32); Chloride 104 mmol/L (98-107); Creatine Kinase 36 U/L (30-135); Estimated Glomerular Filt Rate > 60.0 mL/min (>60); Globulin 3.2 g/dL (1.7-4.1); Glucose 94 mg/dL (80-110); HEMOLYSIS 22 (0-50); Lipase 84 U/L (23-300); Sodium 141 mmol/L (137-145); Total Protein 7.5 g/dL (6.3-8.2)
[2018-12-08 15:49] LABS: Troponin I < 0.012 ng/mL (0.01-0.034)
[2018-12-08 15:51] LABS: B Type Natriuretic Peptide 134 (<100)
--- NOTE | 2018-12-08 16:08 | ED_ITS ---
HPI - Chest Pain General Chief Complaint: Chest Pain Stated Complaint: Fatigue, SOB, chest pain, light headed Time Seen by Provider: 12/08/18 14:26 Source: patient Mode of arrival: ambulatory Limitations: no limitations History of Present Illness HPI narrative: Patient is an 83-year-old female with known coronary artery disease presenting with chest pressure and shortness of breath along with fatigue. She actually had the symptoms similar on 11/19/2018 at which point she was transferred to [facility]. During that stay she had a stress test and echocardiogram diagnosed with stable angina and discharged. She says that she is having increasing shortness of breath with exertion over the last few days. She saw her PCP today who started her on Lasix however she went to the pharmacy to pick it up and just felt extreme fatigue and chest heaviness she took a nitroglycerin and came to the emergency department instead. She now states that her chest discomfort has resolved. She denies any fever or cough. 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 complaint: chest pain Duration: now resolved Pain location: substernal Related Data Home Medications Medication Instructions Recorded Confirmed aspirin 81 mg PO DAILY #0 05/14/17 11/18/18 amlodipine [Norvasc] 5 mg PO BID #0 07/28/17 11/18/18 cyclobenzaprine 2 mg PO TID 09/20/18 11/18/18 hydrochlorothiazide 25 mg PO DAILY 09/20/18 11/18/18 clopidogrel 1 tab PO DAILY 11/18/18 11/18/18 cyanocobalamin (vitamin B-12) 2,000 mcg PO DAILY 11/18/18 11/18/18 ergocalciferol (vitamin D2) 2,500 unit PO DAILY 11/18/18 11/18/18 lorazepam 1 tab PO BID 11/18/18 11/18/18 nitroglycerin 1 tab SUBLINGUAL [id number] PRN 11/18/18 11/18/18 rosuvastatin 1 tab PO DAILY 11/18/18 11/18/18 Allergies Allergy/AdvReac Type Severity Reaction Status Date / Time erythromycin base Allergy Severe Rash Verified 12/08/18 14:20 [ERYTHROMYCIN BASE] ibuprofen [IBUPROFEN] Allergy Severe Rash Verified 12/08/18 14:20 Iodinated Contrast- Oral and Allergy Severe Rash Verified 12/08/18 14:20 IV Dye [IODINATED CONTRAST- ORAL AND IV DYE] morphine [MORPHINE] Allergy Severe Rash Verified 12/08/18 14:20 naproxen [From ALEVE] Allergy Severe Rash Verified 12/08/18 14:20 telmisartan [TELMISARTAN] Allergy Severe Rash Verified 12/08/18 14:20 Review of Systems Review of Systems ROS Unobtainable: All systems reviewed & are unremarkable except as noted in HPI and below Constitutional Denies chills, Reports fatigue and Denies lethargy Eyes Denies change in vision, Denies eye discharge, Denies irritation and Denies loss of vision Cardiovascular Reports as per HPI, Denies dyspnea and Reports dyspnea on exertion Respiratory Denies cough, Denies dyspnea, Reports dyspnea on exertion and Denies wheezing Gastrointestinal Gastrointestinal: Denies abdominal pain, Denies change in bowel habits, Denies diarrhea, Denies nausea and Denies vomiting Genitourinary Denies hematuria, Denies flank pain, Denies urinary incontinence and Denies urinary urgency Musculoskeletal Denies back pain, Denies muscle weakness, Denies numbness and Denies tingling Integumentary/Breasts Denies pruritus, Denies erythema, Denies rash and Denies wounds Neurologic Denies loss of vision, Denies numbness and Denies tingling Endocrine Reports fatigue Allergic/Immunologic Denies wheezing [facility] Medical History Coronary artery disease (Acute) Hyperlipidemia (Acute) Hypertension (Acute) Social History Smoking Status: Never smoker Social History Smoking Status: Never smoker Exam Initial Vital Signs Initial Vital Signs: Vital Signs Temperature 97.2 F L 12/08/18 14:16 Pulse Rate 71 12/08/18 14:16 Respiratory Rate 15 12/08/18 14:16 Blood Pressure 163/61 H 12/08/18 14:16 Pulse Oximetry 99 12/08/18 14:16 GENERAL: Overweight anxious female . HEENT: Head atraumatic,EOMI, pupils reactive, face symmetric CARDIOVASCULAR: Regular rate and rhythm without murmurs, rubs or gallops. RESPIRATORY: Breath sounds equal bilaterally, no wheezes rales or rhonchi. Speaks in full sentences no respiratory distress ABDOMEN: Soft, nontender. Normoactive bowel sounds all 4 quadrants. No guarding or rebound. EXTREMITIES: Normal range of motion, no clubbing or edema. Neurovascularly intact NEUROLOGICAL: Alert and oriented x4.Normal gait and speech. Cranial nerves II through XII grossly intact. SKIN: Warm, dry, no laceration, no petechiae, no rashes or lesions. Course Orders Ordered: ED Orders 12/08/18 14:29 XR chest 1V Stat EKG-12 Lead Stat 12/08/18 15:15 B Type Natriuretic Peptide Stat Complete Blood Count AUTO DIFF Stat Comprehensive Metabolic Panel Stat Lipase Stat Partial Thromboplastin Time Stat Prothrombin Time INR Stat Troponin & CK Cardiac Panel Stat 12/08/18 17:50 EKG-12 Lead Routine 12/08/18 18:25 Troponin I Stat Discontinued Medications Aspirin (Aspirin Chew) 324 mg PO NOW ONE Stop: 12/08/18 14:30 Last Admin: 12/08/18 14:36 Dose: 243 mg Furosemide (Lasix) 40 mg IV NOW ONE Stop: 12/08/18 16:25 Last Admin: 12/08/18 16:45 Dose: 40 mg Vital Signs - 8 hr 12/08/18 14:16 12/08/18 15:00 12/08/18 15:28 Temperature 97.2 F L Pulse Rate 71 69 69 Respiratory Rate 15 14 19 Blood Pressure 163/61 H Blood Pressure [Right Arm] 148/54 H 144/45 H Pulse Oximetry 99 99 96 12/08/18 15:41 12/08/18 16:00 12/08/18 16:55 Temperature Pulse Rate 70 68 72 Respiratory Rate 22 12 18 Blood Pressure Blood Pressure [Right Arm] 136/52 L 148/50 H 157/51 H Pulse Oximetry 98 96 96 12/08/18 19:09 Temperature Pulse Rate 66 Respiratory Rate 18 Blood Pressure Blood Pressure [Right Arm] 155/53 H Pulse Oximetry 96 MDM - Chest Pain Lab Data Attestation: I reviewed the patient's lab results. Result diagrams: 12/08/18 15:15 12/08/18 15:15 Lab Results 12/08/18 12/08/18 12/08/18 Range/Units 15:15 15:15 15:15 WBC 9.0 (4.5-11.0) X10^3/uL RBC 4.74 (4.0-5.2) X10^6/uL Hgb 13.8 (12.0-16.0) g/dL Hct 41.2 (36-46) % MCV 87.0 (80-100) fL MCH 29.2 (26-34) PG MCHC 33.6 (30-36) % RDW 15.8 H (11.6-14.8) % Plt Count 216 (150-400) X10^3/uL Neut % (Auto) 59.3 (50-75) % Lymph % (Auto) 30.0 (25-40) % [place] % (Auto) 7.9 (3-14) % Eos % (Auto) 1.8 L (2-4) % Baso % (Auto) 1.0 (0-2) % Neut # (Auto) 5300 (7090-2235) /uL Lymph # (Auto) 2700 (3102-7860) /uL [place] # (Auto) 700 (0-900) /uL Eos # (Auto) 200 (0-450) /uL Baso # (Auto) 100 (0-100) /uL PT 12.4 (10.1-12.7) SECONDS INR 1.1 (0.9-1.3) APTT 28 (26.4-36.2) SECONDS Sodium 141 (137-145) mmol/L Potassium 4.0 (3.4-5.1) mmol/L Chloride 104 (98-107) mmol/L Carbon Dioxide 27 (22-32) mmol/L BUN 14 (7-17) mg/dL Creatinine 0.70 (0.52-1.04) mg/dL Estimated GFR > 60.0 (>60) mL/min BUN/Creatinine Ratio 20.0 (6-22) Glucose 94 (80-110) mg/dL Calcium 9.8 (8.4-10.2) mg/dL Total Bilirubin 0.6 (0.2-1.3) mg/dL AST 23 (14-36) IU/L ALT 7 L (9-52) IU/L Alkaline Phosphatase 53 (38-126) U/L Total Creatine Kinase 36 (30-135) U/L CK-MB (CK-2) TNP CK-MB (CK-2) Rel Index TNP Troponin I < 0.012 (0.01-0.034) ng/mL B-Natriuretic Peptide 134 H (<100) Total Protein 7.5 (6.3-8.2) g/dL Albumin 4.3 (3.5-5.0) g/dL Globulin 3.2 (1.7-4.1) g/dL Albumin/Globulin Ratio 1.3 (1.0-2.8) Lipase 84 (23-300) U/L 12/08/18 Range/Units 18:25 WBC (4.5-11.0) X10^3/uL RBC (4.0-5.2) X10^6/uL Hgb (12.0-16.0) g/dL Hct (36-46) % MCV (80-100) fL MCH (26-34) PG MCHC (30-36) % RDW (11.6-14.8) % Plt Count (150-400) X10^3/uL Neut % (Auto) (50-75) % Lymph % (Auto) (25-40) % [place] % (Auto) (3-14) % Eos % (Auto) (2-4) % Baso % (Auto) (0-2) % Neut # (Auto) (3701-5023) /uL Lymph # (Auto) (2440-3564) /uL [place] # (Auto) (0-900) /uL Eos # (Auto) (0-450) /uL Baso # (Auto) (0-100) /uL PT (10.1-12.7) SECONDS INR (0.9-1.3) APTT (26.4-36.2) SECONDS Sodium (137-145) mmol/L Potassium (3.4-5.1) mmol/L Chloride (98-107) mmol/L Carbon Dioxide (22-32) mmol/L BUN (7-17) mg/dL Creatinine (0.52-1.04) mg/dL Estimated GFR (>60) mL/min BUN/Creatinine Ratio (6-22) Glucose (80-110) mg/dL Calcium (8.4-10.2) mg/dL Total Bilirubin (0.2-1.3) mg/dL AST (14-36) IU/L ALT (9-52) IU/L Alkaline Phosphatase (38-126) U/L Total Creatine Kinase (30-135) U/L CK-MB (CK-2) CK-MB (CK-2) Rel Index Troponin I < 0.012 (0.01-0.034) ng/mL B-Natriuretic Peptide (<100) Total Protein (6.3-8.2) g/dL Albumin (3.5-5.0) g/dL Globulin (1.7-4.1) g/dL Albumin/Globulin Ratio (1.0-2.8) Lipase (23-300) U/L Imaging Data Chest x-ray: Radiologist's impression: PROCEDURE: XR CHEST 1V INDICATIONS: chest pain TECHNIQUE: One view of the chest was acquired. COMPARISON: [facility], , XR CHEST 1V, 11/18/2018, 21:28. FINDINGS: Surgical changes and devices: None. Lungs and pleura: There is diffuse interstitial prominence, slightly increased when compared with the prior plain film dated 11/18/18. Mediastinum: Mediastinal contours appear normal. Heart size is mildly enlarged, as before. Bones and chest wall: No suspicious bony lesions. Overlying soft tissues appear unremarkable. IMPRESSION: Cardiomegaly and interstitial prominence suggesting fluid overload. Dictated by: Alison Connelly M.D. on 12/08/2018 at 14:04 ECG Data Attestation: I personally reviewed and interpreted this ECG as follows: Prior ECG tracings: available for review Interpretation: EKG 1. Normal sinus rhythm rate [address] changes p.r. interval 188 similar To previous EKGs EKG 2. Normal sinus rhythm rate 65 P are interval [address] changes MDM Narrative Medical decision making narrative: Patient is given 1 dose of Lasix IV in the ER. She is quite difficult IV stick but I was able place a peripheral IV with ultrasound. Her symptoms have improved. I have reviewed her records from [facility] she had a stress test and echocardiogram this month. At this time she is chest pain-free she has urinated I think outpatient follow-up is appropriate. She already has a prescription for Lasix. I discussed all findings with the patient and family, Education has been performed regarding treatment plan, diagnosis, warning signs and symptoms and all concerns have been addressed. Verbally agree with and understood all of the above. Discharge Plan Departure Patient Disposition: Home Clinical Impression: Stable angina Instructions: DI for Angina Activity Restrictions/Additional Instructions: *You have been diagnosed with stable angina *What to do: You have had a stress test this month already which was reassuring. I recommend she follow up with her primary care physician next week. *Continue to take medications as directed PICC up and take furosemide/Lasix as previously prescribed by her PCP today *Follow up with your primary care provider in 2-3 days *Return to ER if you should have chest pressure at rest not relieved with nitro, increasing chest pain, worsening shortness of breath with exertion, increasing weakness, passing out or any new, worsening or concerning symptoms Prescriptions: No Action aspirin 81 MG tablet,delayed release (DR/EC) 81 mg PO DAILY Qty: 0 RF: 0 amlodipine [Norvasc] 2.5 MG tablet 5 mg PO BID Qty: 0 RF: 0 cyclobenzaprine 10 mg tablet 2 mg PO TID RF: 0 hydrochlorothiazide 25 mg tablet 25 mg PO DAILY RF: 0 clopidogrel 75 mg tablet 1 tab PO DAILY RF: 0 nitroglycerin 0.4 mg tablet, sublingual 1 tab sublingual [id number] PRN (Reason: Chest Pain) RF: 0 lorazepam 1 mg tablet 1 tab PO BID RF: 0 rosuvastatin 40 mg tablet 1 tab PO DAILY RF: 0 cyanocobalamin (vitamin B-12) 2,000 mcg Tablet 2,000 mcg PO DAILY RF: 0 ergocalciferol (vitamin D2) 2,500 unit Capsule 2,500 unit PO DAILY RF: 0 Referrals: Zoe Bass PA-C [Primary Care Provider] -
[2018-12-08] MEDS: FUROSEMIDE 40 MG/4 ML VIAL IV (16:45)
[2018-12-08 18:58] LABS: Troponin I < 0.012 ng/mL (0.01-0.034)
== END 2018-12-08 19:25 | disposition home or self-care (01) ==
PROVIDERS: Emergency Provider Emergency Medicine; Family Provider Internal Medicine; PCP Physician Assistant Medical
DX: I20.8 Other forms of angina pectoris (principal)
CPT/HCPCS: 36415; 71045; 80053; 82550; 83690; 83880; 84484; 85025; 85610; 85730; 93005; 96374; 99284; 99285; J1940

== ENCOUNTER 2019-01-06 09:36 | Emergency (ER) | payer MEDICARE, OTHER, SELFPAY ==
[2019-01-06] VITALS (7 sets, daily range): BP systolic 124–158; BP diastolic 45–69; PULSE 64–98; RESP 12–22; TEMP 36.9; O2SAT 94–100
--- NOTE | 2019-01-06 09:42 | DI.RAD.S_ITS ---
PROCEDURE: XR CHEST 1V INDICATIONS: chest pain TECHNIQUE: One view of the chest was acquired. COMPARISON: [facility], CR, XR CHEST 1V, 12/08/2018, 14:45. FINDINGS: Surgical changes and devices: None. Lungs and pleura: The aeration of the lungs is improved in the interim. There is slight increased attenuation within the right hilar region. No pleural effusions or pneumothorax. Mediastinum: Mediastinal contours appear normal. Heart size is normal. Bones and chest wall: No suspicious bony lesions. Overlying soft tissues appear unremarkable. IMPRESSION: Right hilar increased density may be within normal limits. The possibility of asymmetric edema, atelectasis, or pneumonia is difficult to exclude. Dictated by: Juventino Acosta M.D. on 01/06/2019 at 9:40 Approved by: Juventino Acosta M.D. on 01/06/2019 at 9:41
--- NOTE | 2019-01-06 10:29 | ED_ITS ---
HPI - SOB/Dyspnea General Chief Complaint: Shortness of Breath/Dyspnea Stated Complaint: PAIN AROUND BACK,CHILLS,COUGH Time Seen by Provider: 01/06/19 09:55 Source: patient Mode of arrival: ambulatory Limitations: no limitations History of Present Illness Female with known coronary artery disease presenting with cough and shortness of breath. She says she started noticing shortness of breath with exertion and a dry nonproductive cough over the last 2 days. She has not had fever. She feels like her chest is tight. Every time she takes a breath she starts coughing. She denies coughing anything up. Related Data Home Medications Medication Instructions Recorded Confirmed aspirin 81 mg PO DAILY #0 05/14/17 11/18/18 amlodipine [Norvasc] 5 mg PO BID #0 07/28/17 11/18/18 cyclobenzaprine 2 mg PO TID 09/20/18 11/18/18 hydrochlorothiazide 25 mg PO DAILY 09/20/18 11/18/18 clopidogrel 1 tab PO DAILY 11/18/18 11/18/18 cyanocobalamin (vitamin B-12) 2,000 mcg PO DAILY 11/18/18 11/18/18 ergocalciferol (vitamin D2) 2,500 unit PO DAILY 11/18/18 11/18/18 lorazepam 1 tab PO BID 11/18/18 11/18/18 nitroglycerin 1 tab SUBLINGUAL [id number] PRN 11/18/18 11/18/18 rosuvastatin 1 tab PO DAILY 11/18/18 11/18/18 Previous Rx's Medication Instructions Recorded albuterol sulfate 1 puff INHALATION Q4-6H PRN #8.5 01/06/19 gram Allergies Allergy/AdvReac Type Severity Reaction Status Date / Time erythromycin base Allergy Severe Rash Verified 12/08/18 14:20 [ERYTHROMYCIN BASE] ibuprofen [IBUPROFEN] Allergy Severe Rash Verified 12/08/18 14:20 Iodinated Contrast- Oral and Allergy Severe Rash Verified 12/08/18 14:20 IV Dye [IODINATED CONTRAST- ORAL AND IV DYE] morphine [MORPHINE] Allergy Severe Rash Verified 12/08/18 14:20 naproxen [From ALEVE] Allergy Severe Rash Verified 12/08/18 14:20 telmisartan [TELMISARTAN] Allergy Severe Rash Verified 12/08/18 14:20 Review of Systems Review of Systems ROS Unobtainable: All systems reviewed & are unremarkable except as noted in HPI and below Constitutional Denies body ache(s), Reports chills, Denies fatigue and Denies fever(s) Eyes Denies change in vision, Denies eye discharge, Denies irritation and Denies loss of vision ENT Ears, Nose, Mouth, and Throat: Denies change in voice, Denies neck pain and Denies sore throat Cardiovascular Denies chest pain, Denies irregular heart rhythm, Denies lightheadedness, Denies palpitations and Denies orthopnea Respiratory Reports as per HPI, Reports cough, Reports pain with cough, Denies stridor and Denies wheezing Gastrointestinal Gastrointestinal: Denies abdominal pain, Denies change in bowel habits, Denies diarrhea, Denies nausea and Denies vomiting Genitourinary Denies hematuria, Denies flank pain, Denies urinary incontinence and Denies urinary urgency Musculoskeletal Denies neck pain Integumentary/Breasts Denies pruritus, Denies erythema, Denies rash and Denies wounds Neurologic Denies confusion and Denies loss of vision Psychiatric Denies anxiety, Denies confusion, Denies depression, Denies homicidal ideation and Denies suicidal ideation Endocrine Denies fatigue and Denies palpitations Allergic/Immunologic Denies wheezing [facility] Social History Smoking Status: Never smoker Exam Initial Vital Signs Initial Vital Signs: Vital Signs Temperature 98.5 F 01/06/19 09:43 Pulse Rate 64 01/06/19 09:43 Respiratory Rate 18 01/06/19 09:43 Blood Pressure 150/62 H 01/06/19 09:43 Pulse Oximetry 100 01/06/19 09:43 GENERAL: Alert pleasant elderly female HEENT: Head atraumatic,EOMI, pupils reactive CARDIOVASCULAR: Regular rate and rhythm without murmurs, rubs or gallops. RESPIRATORY: Breath sounds equal bilaterally, no wheezes rales or rhonchi. Speaks in full sentences no difficulty ABDOMEN: Soft, nontender. Normoactive bowel sounds all 4 quadrants. No guarding or rebound. : No CVA tenderness EXTREMITIES: Normal range of motion, no clubbing or edema. Neurovascularly intact NEUROLOGICAL: Alert and oriented x4.Normal gait and speech. Cranial nerves II through XII grossly intact. SKIN: Warm, dry, no laceration, no petechiae, no rashes or lesions. Course Orders Ordered: ED Orders 01/06/19 09:42 XR chest 1V Stat Partial Thromboplastin Time Stat EKG-12 Lead Stat 01/06/19 10:46 B Type Natriuretic Peptide Stat Complete Blood Count AUTO DIFF Stat Comprehensive Metabolic Panel Stat Lipase Stat Troponin & CK Cardiac Panel Stat 01/06/19 11:45 Respiratory Panel (Film Array) Stat 01/06/19 12:39 Troponin I Stat Discontinued Medications Albuterol/Ipratropium (Duoneb) 3 ml INH NOW ONE Stop: 01/06/19 10:41 Last Admin: 01/06/19 10:56 Dose: 3 ml Vital Signs - 8 hr 01/06/19 10:26 01/06/19 10:56 01/06/19 11:30 Pulse Rate 66 67 70 Respiratory Rate 14 12 Blood Pressure [Left Arm] 149/69 H 132/48 L Pulse Oximetry 94 96 95 01/06/19 12:30 01/06/19 13:58 01/06/19 14:35 Pulse Rate 98 H 65 66 Respiratory Rate 22 17 18 Blood Pressure [Left Arm] 158/58 H 124/45 L Pulse Oximetry 97 96 96 MDM - SOB/Dyspnea Lab Data Attestation: I reviewed the patient's lab results. Result diagrams: 01/06/19 10:46 01/06/19 10:46 Lab Results 01/06/19 01/06/19 01/06/19 Range/Units 10:46 10:46 10:46 WBC 7.4 (4.5-11.0) X10^3/uL RBC 5.06 (4.0-5.2) X10^6/uL Hgb 14.6 (12.0-16.0) g/dL Hct 43.0 (36-46) % MCV 85.0 (80-100) fL MCH 28.9 (26-34) PG MCHC 34.0 (30-36) % RDW 15.5 H (11.6-14.8) % Plt Count 224 (150-400) X10^3/uL Neut % (Auto) 56.4 (50-75) % Lymph % (Auto) 34.7 (25-40) % [place] % (Auto) 6.5 (3-14) % Eos % (Auto) 1.5 L (2-4) % Baso % (Auto) 0.9 (0-2) % Neut # (Auto) 4100 (9000-9025) /uL Lymph # (Auto) 2600 (7559-3947) /uL [place] # (Auto) 500 (0-900) /uL Eos # (Auto) 100 (0-450) /uL Baso # (Auto) 100 (0-100) /uL Sodium 141 (137-145) mmol/L Potassium 4.2 (3.4-5.1) mmol/L Chloride 104 (98-107) mmol/L Carbon Dioxide 26 (22-32) mmol/L BUN 17 (7-17) mg/dL Creatinine 0.80 (0.52-1.04) mg/dL Estimated GFR > 60.0 (>60) mL/min BUN/Creatinine Ratio 21.3 (6-22) Glucose 96 (80-110) mg/dL Calcium 9.9 (8.4-10.2) mg/dL Total Bilirubin 0.7 (0.2-1.3) mg/dL AST 27 (14-36) IU/L ALT < 6 L (9-52) IU/L Alkaline Phosphatase 52 (38-126) U/L Total Creatine Kinase 56 (30-135) U/L CK-MB (CK-2) TNP CK-MB (CK-2) Rel Index TNP Troponin I TNP B-Natriuretic Peptide 119 H (<100) Total Protein 7.8 (6.3-8.2) g/dL Albumin 4.6 (3.5-5.0) g/dL Globulin 3.2 (1.7-4.1) g/dL Albumin/Globulin Ratio 1.4 (1.0-2.8) Lipase 99 (23-300) U/L Chlamy pneumoniae PCR (Not Detect) Adenovirus (PCR) (Not Detect) B.parapertussis DNA PCR (Not Detect) Coronavirus OC43 (PCR) (Not Detect) Coronavirus HKU1 (PCR) (Not Detect) Coronavirus 229E (PCR) (Not Detect) Coronavirus NL63 (PCR) (Not Detect) Human Metapneumovir PCR (Not Detect) Influenza Type A (PCR) (Not Detect) Influenza Type B (PCR) (Not Detect) M. pneumoniae (PCR) (Not Detect) Parainfluenza 1 (PCR) (Not Detect) Parainfluenza 2 (PCR) (Not Detect) Parainfluenza 3 (PCR) (Not Detect) Parainfluenza 4 (PCR) (Not Detect) RSV (PCR) (Not Detect) Entero/Rhino (PCR) (Not Detect) 01/06/19 01/06/19 Range/Units 11:45 12:39 WBC (4.5-11.0) X10^3/uL RBC (4.0-5.2) X10^6/uL Hgb (12.0-16.0) g/dL Hct (36-46) % MCV (80-100) fL MCH (26-34) PG MCHC (30-36) % RDW (11.6-14.8) % Plt Count (150-400) X10^3/uL Neut % (Auto) (50-75) % Lymph % (Auto) (25-40) % [place] % (Auto) (3-14) % Eos % (Auto) (2-4) % Baso % (Auto) (0-2) % Neut # (Auto) (4894-2460) /uL Lymph # (Auto) (8229-4849) /uL [place] # (Auto) (0-900) /uL Eos # (Auto) (0-450) /uL Baso # (Auto) (0-100) /uL Sodium (137-145) mmol/L Potassium (3.4-5.1) mmol/L Chloride (98-107) mmol/L Carbon Dioxide (22-32) mmol/L BUN (7-17) mg/dL Creatinine (0.52-1.04) mg/dL Estimated GFR (>60) mL/min BUN/Creatinine Ratio (6-22) Glucose (80-110) mg/dL Calcium (8.4-10.2) mg/dL Total Bilirubin (0.2-1.3) mg/dL AST (14-36) IU/L ALT (9-52) IU/L Alkaline Phosphatase (38-126) U/L Total Creatine Kinase (30-135) U/L CK-MB (CK-2) CK-MB (CK-2) Rel Index Troponin I < 0.012 B-Natriuretic Peptide (<100) Total Protein (6.3-8.2) g/dL Albumin (3.5-5.0) g/dL Globulin (1.7-4.1) g/dL Albumin/Globulin Ratio (1.0-2.8) Lipase (23-300) U/L Chlamy pneumoniae PCR Not detected (Not Detect) Adenovirus (PCR) Not detected (Not Detect) B.parapertussis DNA PCR Not detected (Not Detect) Coronavirus OC43 (PCR) Not detected (Not Detect) Coronavirus HKU1 (PCR) Not detected (Not Detect) Coronavirus 229E (PCR) Not detected (Not Detect) Coronavirus NL63 (PCR) Not detected (Not Detect) Human Metapneumovir PCR Not detected (Not Detect) Influenza Type A (PCR) Not detected (Not Detect) Influenza Type B (PCR) Not detected (Not Detect) M. pneumoniae (PCR) Not detected (Not Detect) Parainfluenza 1 (PCR) Not detected (Not Detect) Parainfluenza 2 (PCR) Not detected (Not Detect) Parainfluenza 3 (PCR) Not detected (Not Detect) Parainfluenza 4 (PCR) Not detected (Not Detect) RSV (PCR) Not detected (Not Detect) Entero/Rhino (PCR) Not detected (Not Detect) MDM Narrative Medical decision making narrative: Patent is a very hard IV start infection did not want an IV. Lab was able to draw some blood unable to get enough for her troponin. Based on her history troponin this area. I was able to start a peripheral IV in her right upper arm. Troponin is negative. She does have a consistent non productive a dry hacky cough. No pneumonia on x-ray no leukocytosis. Her oxygen level is within normal limits. Respiratory panel is negative. At this time this is likely a bronchitis. Discharge Plan Departure Patient Disposition: Home Clinical Impression: Bronchitis Discharge Date/Time: 01/06/19 14:56 Interventions: ED Discharge Assessment Last Done: 01/06/19 14:55 Instructions: DI for Acute Bronchitis Activity Restrictions/Additional Instructions: *You have been diagnosed with bronchitis *What to do: At this time blood work is reassuring x-ray does not show pneumonia you likely have a type of virus. *Continue to take medications as directed Albuterol inhaler 1-2 puffs every 4-6 hours if needed for shortness of *Follow up with your primary care provider in 2-3 days *Return to ER if you should have fever inability to tolerate fluids, worsening shortness of breath, chest pain or any new, worsening or concerning symptoms Prescriptions: New albuterol sulfate 90 mcg/actuation HFA aerosol inhaler 1 puff INHALATION Q4-6H PRN (Reason: shortness of breath or wheezing) Qty: 8.5 RF: 0 No Action aspirin 81 MG tablet,delayed release (DR/EC) 81 mg PO DAILY Qty: 0 RF: 0 amlodipine [Norvasc] 2.5 MG tablet 5 mg PO BID Qty: 0 RF: 0 cyclobenzaprine 10 mg tablet 2 mg PO TID RF: 0 hydrochlorothiazide 25 mg tablet 25 mg PO DAILY RF: 0 clopidogrel 75 mg tablet 1 tab PO DAILY RF: 0 nitroglycerin 0.4 mg tablet, sublingual 1 tab sublingual [id number] PRN (Reason: Chest Pain) RF: 0 lorazepam 1 mg tablet 1 tab PO BID RF: 0 rosuvastatin 40 mg tablet 1 tab PO DAILY RF: 0 cyanocobalamin (vitamin B-12) 2,000 mcg Tablet 2,000 mcg PO DAILY RF: 0 ergocalciferol (vitamin D2) 2,500 unit Capsule 2,500 unit PO DAILY RF: 0 Referrals: Zoe Bass PA-C [Primary Care Provider] -
[2019-01-06] MEDS: ALBUTEROL/IPRATROPIUM 3 ML AMPUL INH (10:56)
--- NOTE | 2019-01-06 11:01 | PC.NURSE ---
Patient alert and oriented, in no distress. Speaking in full sentences with staff and family. OK per Dr. Gardner to hold off on IV for now as patient is refusing. Patient agreeable to lab draw with butterfly needle for labwork.
[2019-01-06 11:07] LABS: Add Manual Diff / Slide Review NO; Basophils Absolute Auto 100 /uL (0-100); Basophils Percent Auto 0.9 % (0-2); Eosinophils Absolute Auto 100 /uL (0-450); Eosinophils Percent Auto 1.5 % (2-4); Hemoglobin 14.6 g/dL (12.0-16.0); Lymphocytes Absolute Auto 2600 /uL (1100-4500); Lymphocytes Percent Auto 34.7 % (25-40); Mean Corpuscular Hemoglobin 28.9 PG (26-34); Monocytes Absolute Auto 500 /uL (0-900); Monocytes Percent Auto 6.5 % (3-14); Neutrophils Absolute Auto 4100 /uL (1500-7000); Neutrophils Percent Auto 56.4 % (50-75); Platelet Count 224 X10^3/uL (150-400); Red Blood Cell Count 5.06 X10^6/uL (4.0-5.2); Red Cell Distribution Width 15.5 % (11.6-14.8); White Blood Cell Count 7.4 X10^3/uL (4.5-11.0)
[2019-01-06 11:11] LABS: Albumin 4.6 g/dL (3.5-5.0); Albumin Globulin Ratio 1.4 (1.0-2.8); Alkaline Phosphatase 52 U/L (38-126); Aspartate Aminotransferase 27 IU/L (14-36); BUN Creatinine Ratio 21.3 (6-22); Bilirubin Total 0.7 mg/dL (0.2-1.3); Blood Urea Nitrogen 17 mg/dL (7-17); Calcium 9.9 mg/dL (8.4-10.2); Carbon Dioxide 26 mmol/L (22-32); Chloride 104 mmol/L (98-107); Creatine Kinase 56 U/L (30-135); Estimated Glomerular Filt Rate > 60.0 mL/min (>60); Globulin 3.2 g/dL (1.7-4.1); Glucose 96 mg/dL (80-110); Lipase 99 U/L (23-300); Potassium 4.2 mmol/L (3.4-5.1); Sodium 141 mmol/L (137-145); Total Protein 7.8 g/dL (6.3-8.2)
[2019-01-06 11:12] LABS: Alanine Aminotransferase < 6 IU/L (9-52)
--- NOTE | 2019-01-06 11:15 | PC.NURSE ---
Ambulatory to BR with steady gait.
[2019-01-06 11:31] LABS: B Type Natriuretic Peptide 119 (<100)
[2019-01-06 13:00] LABS: Adenovirus Not Detected (Not Detect); Bordetella pertussis Not Detected (Not Detect); Chlamydophila pneumoniae Not Detected (Not Detect); Coronavirus 229E Not Detected (Not Detect); Coronavirus HKU1 Not Detected (Not Detect); Coronavirus NL 63 Not Detected (Not Detect); Coronavirus OC43 Not Detected (Not Detect); Human Metapneumovirus Not Detected (Not Detect); Human Rhinovirus/Enterovirus Not Detected (Not Detect); Influenza A Not Detected (Not Detect); Influenza B Not Detected (Not Detect); Mycoplasma pneumoniae Not Detected (Not Detect); Parainfluenza Virus 1 Not Detected (Not Detect); Parainfluenza Virus 2 Not Detected (Not Detect); Parainfluenza Virus 3 Not Detected (Not Detect); Parainfluenza Virus 4 Not Detected (Not Detect); Respiratory Syncytial Virus Not Detected (Not Detect)
[2019-01-06 13:47] LABS: Troponin I < 0.012 ng/mL (0.01-0.034)
== END 2019-01-06 14:56 | disposition home or self-care (01) ==
PROVIDERS: Emergency Provider Emergency Medicine; Family Provider Internal Medicine; PCP Physician Assistant Medical
DX: J40 Bronchitis, not specified as acute or chronic (principal); R07.9 Chest pain, unspecified
CPT/HCPCS: 36415; 71045; 80053; 82550; 83690; 83880; 84484; 85025; 87633; 93005; 94640; 99283; 99285; Q9967

== ENCOUNTER 2019-01-23 16:50 | Inpatient (IN) | payer MEDICARE, OTHER, SELFPAY ==
[2019-01-23] VITALS (14 sets, daily range): BP systolic 108–178; BP diastolic 45–60; PULSE 60–82; RESP 12–27; TEMP 36.4–36.5; O2SAT 94–100; BMI 33.6; BMI 33.3
--- NOTE | 2019-01-23 | DI.ECHO.S_ITS ---
[place] [facility]---------+ [facility] +---------+ : : [address] : [address] : : : : [id number] : : : : Phone: [phone]+ Echocardiogram Report + + :Name: BASIA العراقي Study Date: 01/24/2019 Height: 64 in : :[facility] Exam Location: [place] Weight: 194 lb : : Gender: Female BSA: 1.9 m2 : :: 1935 Age: 83 yrs BP: 126/47 mmHg: :Reason For Study: Chest pain/ Prior NSTEMI : :Ordering Physician: Nic : :Hospitalist Performed By: Dania Page : :Referring: ELLIOT CORDON : + + Interpretation Summary The left ventricle is normal in size. The left ventricular ejection fraction is normal. There are no obvious focal wall motion abnormalities noted but poor endocardial definition reduces the sensitivity for the detection of such. Diastolic parameters suggest a pseudonormalization pattern, consistent with probable elevated filling pressures. No hemodynamically significant valvular abnormalities. Overall these findings are similar to the prior echo. The diastolic function was not assessed on the prior echo. Procedure: A two-dimensional transthoracic echocardiogram with color flow and Doppler was performed. The study quality was technically adequate. Comparison is made with the echocardiogram of 11/19/2018. The patient was in normal sinus rhythm during the exam. Left Ventricle: The left ventricle is normal in size. The ejection fraction is estimated to be 60-65%. The left ventricular ejection fraction is normal. There are no obvious focal wall motion abnormalities noted but poor endocardial definition reduces the sensitivity for the detection of such. Diastolic parameters suggest a pseudonormalization pattern, consistent with probable elevated filling pressures. Right Ventricle: The right ventricle is normal in size and function. Atria: The left atrium is mildly dilated. The right atrium is mildly dilated. There is no Doppler evidence for an interatrial shunt. Mitral Valve: The mitral valve leaflets appear mildly thickened, but open well. There is mild mitral annular calcification. There is mild mitral regurgitation. Aortic Valve: The aortic valve opens well. The aortic valve is not well visualized. Despite inadequate visualization, the opening is preserved and there is no Doppler evidence of dysfunction. There is no aortic valve stenosis. There is trace aortic regurgitation. Tricuspid Valve: The tricuspid valve is normal in structure and function. There is trace tricuspid regurgitation. The right ventricular systolic pressure is estimated to be at least 32 mmHg based on an estimated right atrial pressure of 8 mm Hg. Pulmonic Valve: The pulmonic valve is not well visualized. There is mild pulmonic regurgitation. Great Vessels: The aortic root is normal size. The ascending aorta is normal in size. The pulmonary is not well visualized. The IVC is of normal diameter and collapses less than 50% with a sniff. This suggests a right atrial pressure of 8 mm Hg. Pericardium/ Pleura There is no pericardial effusion. There is no pleural effusion. MMode/2D Measurements & Calculations LVIDd: 5.2 cm Ao root diam: 3.4 cm LVIDs: 3.8 cm asc Aorta Diam: 3.2 cm FS: 26.5 % IVSd: 0.76 cm LVPWd: 0.68 cm LV nelson. diameter/BSA (cm/m^2): 2.7 LV sys. diameter/BSA (cm/m^2): 2.0 LA A2 area: 29.6 cm2 RA long axis: 5.1 cm LA A4 area: 26.7 cm2 RA area: 19.0 cm2 LA length (vol): 6.6 cm RA vol: 59.9 ml LA vol: 101.6 ml RA : 31.0 ml/m2 LA vol index: 52.6 ml/m2 IVC diam: 1.8 cm RVD1 (basal): 4.4 cm RVD2 (mid): 4.1 cm TAPSE: 2.4 cm Doppler Measurements & Calculations Ao V2 max: 133.0 cm/sec LVOT Max Wes: 113.6 cm/sec Ao V2 mean: 100.6 cm/sec LV V1 max P.2 mmHg Ao max P.1 mmHg LV V1 VTI: 28.0 cm Ao mean P.3 mmHg sev ratio: 0.91 Ao V2 VTI: 30.7 cm MV E max wes: 136.8 cm/sec TR max wes: 245.6 cm/sec MV A max wes: 125.6 cm/sec TR max P.1 mmHg MV E/A: 1.1 PA V2 max: 65.7 cm/sec Med Peak E' Wes: 4.3 cm/sec PA V2 mean: 50.0 cm/sec E/E' med: 31.6 PA mean P.1 mmHg Lat Peak E' Wes: 4.6 cm/sec PA Accel Time: 0.17 sec E/E' lat: 29.5 E/e' average: 30.5 MV P1/2t: 72.3 msec MV /2t max wes: 137.5 cm/sec MVA(2t): 3.0 cm2 Electronically signed by: Abhi Menchaca M.D. on Reading Physician:01/24/2019 04:02 PM
--- NOTE | 2019-01-23 16:56 | DI.RAD.S_ITS ---
PROCEDURE: XR CHEST 1V INDICATIONS: chest pain TECHNIQUE: One view of the chest was acquired. COMPARISON: [facility], CR, XR CHEST 1V, 01/06/2019, 10:07. FINDINGS: Surgical changes and devices: Multiple coronary artery stents. Lungs and pleura: Mild chronic interstitial prominence. No pleural effusions or pneumothorax. Mediastinum: Mediastinal contours appear normal. Heart size is normal. Bones and chest wall: No suspicious bony lesions. Overlying soft tissues appear unremarkable. Severe bilateral glenohumeral joint degenerative arthritis. IMPRESSION: Mild chronic interstitial prominence. No evidence acute pulmonary process. Dictated by: Carlito Pugh M.D. on 01/23/2019 at 17:55 Approved by: Carlito Pugh M.D. on 01/23/2019 at 17:56
--- NOTE | 2019-01-23 17:11 | PC.NURSE ---
pt states she had finished at cardiac rehab and was waiting for the paratransit bus when pain started, pt states she took 3 of her own nitro and it did not resolve. pt reports usually 1 nitro will help. pt arrives ambulatory, does not appear in distress. ambulated to bathroom without difficutly.
--- NOTE | 2019-01-23 17:32 | ED.CHESTPAIN ---
HPI - Chest Pain <Roxanna Adair MD - Last Filed: 01/24/19 19:38> General Chief Complaint: Chest Pain Stated Complaint: chest pain Time Seen by Provider: 01/23/19 16:52 Source: patient Mode of arrival: ambulatory Limitations: no limitations History of Present Illness HPI narrative: Patient comes emergency department complaining of substernal chest pain that started a couple of hours ago after leaving cardiac rehab. Patient had [address] Ellington in September after having a ?silent AR?. Patient states she went home to recover, and has done fairly well since. She states that she has been in cardiac rehab since the middle of November, and her exercise tolerance has increased significantly. She has also lost several lb. Patient states she has had occasional, mild episodes of chest pain which usually resolve just by resting, or potentially by taking 1 nitroglycerin. However, today, she states that she noticed the pain as she was walking out of cardiac rehab. She states it was located in her substernal area and felt tight, and radiated into her left arm and into her left mid trapezius area. Patient states that no other symptoms were associated. No nausea or vomiting. No diaphoresis. No lightheadedness. Patient states she has taken a total of 3 nitroglycerin with absolutely no change in the pain. Patient denies any exacerbating factors. She states that it feels a little bit better when she reclines back. Patient states she has been chronically short of breath for the last couple of weeks, but that she did not have any specific shortness of breath with this episode. No fevers or chills recently. No cough. No other complaints at this time. Patient notes she does have an appointment with Dr. Ellington the day after tomorrow. Related Data Home Medications Medication Instructions Recorded Confirmed aspirin 81 mg PO DAILY #0 05/14/17 01/23/19 clopidogrel 75 mg PO DAILY 11/18/18 01/23/19 cyanocobalamin (vitamin B-12) 2,000 mcg PO DAILY 11/18/18 01/23/19 ergocalciferol (vitamin D2) 2,500 unit PO DAILY 11/18/18 01/23/19 nitroglycerin 1 tab SUBLINGUAL [id number] PRN 11/18/18 01/23/19 rosuvastatin 40 mg PO QPM 11/18/18 01/23/19 albuterol sulfate 1 - 2 puff INHALATION Q4H PRN 01/23/19 01/23/19 amlodipine 5 mg PO BID 01/23/19 01/23/19 desonide 1 applic TOPICAL DIRECTED 01/23/19 01/23/19 furosemide 20 mg PO DAILY 01/23/19 01/23/19 ketoconazole 1 applic TOPICAL DIRECTED 01/23/19 01/23/19 losartan 100 mg PO QPM 01/23/19 01/23/19 metoprolol tartrate 12.5 mg PO BID 01/23/19 01/23/19 potassium chloride 10 meq PO DAILY 01/23/19 01/23/19 Allergies Allergy/AdvReac Type Severity Reaction Status Date / Time erythromycin base Allergy Severe Rash Verified 01/23/19 17:02 [ERYTHROMYCIN BASE] ibuprofen [IBUPROFEN] Allergy Severe Rash Verified 01/23/19 17:02 Iodinated Contrast- Oral and Allergy Severe Rash Verified 01/23/19 17:02 IV Dye [IODINATED CONTRAST- ORAL AND IV DYE] morphine [MORPHINE] Allergy Severe Rash Verified 01/23/19 17:02 naproxen [From ALEVE] Allergy Severe Rash Verified 01/23/19 17:02 telmisartan [TELMISARTAN] Allergy Severe Rash Verified 01/23/19 17:02 Review of Systems <Roxanna Adair MD - Last Filed: 01/24/19 19:38> Constitutional Constitutional: Denies chills, Denies fatigue, Denies fever(s), Denies frequent falls, Denies lethargy and Denies weakness Eyes Eyes: Denies change in vision, Denies eye discharge, Denies irritation and Denies loss of vision ENT Ears, Nose, Mouth, and Throat: Denies change in voice, Denies dizziness, Denies neck pain, Denies sore throat and Denies throat swelling Cardiovascular Cardiovascular: Reports chest pain, Denies irregular heart rhythm, Denies lightheadedness, Denies palpitations, Denies dyspnea, Denies dyspnea on exertion and Denies orthopnea Respiratory Respiratory: Denies cough, Denies dyspnea, Denies dyspnea on exertion and Denies wheezing Gastrointestinal Gastrointestinal: Denies abdominal pain, Denies change in bowel habits, Denies diarrhea, Denies nausea and Denies vomiting Genitourinary Genitourinary: Denies hematuria, Denies flank pain, Denies urinary incontinence and Denies urinary urgency Musculoskeletal Musculoskeletal: Denies back pain, Denies muscle weakness, Denies neck pain, Denies numbness and Denies tingling Integumentary/Breasts Skin/Breast: Denies pruritus, Denies erythema, Denies rash and Denies wounds Neurologic Neurologic: Denies behavioral changes, Denies confusion, Denies dizziness, Denies frequent falls, Denies loss of vision, Denies numbness, Denies tingling and Denies weakness Psychiatric Psychiatric: Denies anxiety, Denies behavioral changes, Denies confusion, Denies depression, Denies homicidal ideation and Denies suicidal ideation Endocrine Endocrine: Denies fatigue, Denies flushing and Denies palpitations Hematologic/Lymphatic Hematologic/Lymphatic: Denies easy bruising Allergic/Immunologic Allergic/Immunologic: Denies urticaria, Denies throat swelling and Denies wheezing PFSH <Roxanna Adair MD - Last Filed: 01/24/19 19:38> Medical History (Updated 01/23/19 @ 22:59 by JOJO Crocker) Cardiac arrest (Acute) Chest pain (Inactive) Coronary artery disease (Acute) Hyperlipidemia (Acute) Hypertension (Acute) Left hamstring muscle strain (Inactive) UTI (urinary tract infection) (Inactive) Surgical History (Updated 01/23/19 @ 23:11 by JOJO Crocker) History of appendectomy (Acute) History of breast implant removal (Acute) History of breast surgery (Acute) History of cholecystectomy (Acute) History of coronary artery stent placement (Acute) History of total abdominal hysterectomy (Acute) Social History household members: children Smoking Status: Never smoker Social History household members: children Smoking Status: Never smoker Exam <Roxanna Adair MD - Last Filed: 01/24/19 19:38> Initial Vital Signs Initial Vital Signs: Vital Signs Temperature 97.7 F 01/23/19 17:03 Pulse Rate 77 01/23/19 17:03 Respiratory Rate 13 01/23/19 17:03 Blood Pressure 178/60 H 01/23/19 17:03 Pulse Oximetry 100 01/23/19 17:03 Const General: cooperative and well developed Nutritional Appearance: well nourished Orientation: alert, awake, oriented x3 and not confused [facility] Head: normocephalic and atraumatic Ears: external ears normal Nose: external nose normal and No nasal discharge Face and sinus: face symmetric and No dry mucous membranes Mouth: oral mucosae normal and moist mucous membranes Teeth and gingiva: dentition normal Eyes General: appearance normal, both eyes and all related structures Eyelids: eyelids normal Conjunctivae: conjunctivae normal Sclera: sclerae normal Pupils: PERRL EOM: EOM intact bilaterally Neck Neck: normal visual inspection, trachea midline, No lymphadenopathy, No midline deformity and No JVD Lymphatic: No lymphedema Chest Chest: normal inspection of the chest Resp Effort & Inspection: normal respiratory effort, able to speak in complete sentences, no respiratory distress and no use of accessory muscles Auscultation: clear to auscultation bilaterally, no rales, no rhonchi and no wheezes Cardio Rate: regular rate Rhythm: regular rhythm Heart Sounds: no click, no gallops, no murmurs and no rubs Pulses: normal peripheral pulses GI Inspection: non-distended Palpation: soft, no hepatosplenomegaly, No guarding, No pulsatile mass and No tender Auscultation: normal bowel sounds Back/Spine/Pelvis Back: No CVA tenderness Cervical Spine: cervical ROM normal and No pain with cervical ROM Thoracic/Lumbar Spine: thoracic and lumbar spine normal to inspection Skin General: no rashes or lesions noted, No jaundice and No petechiae Neuro General: alert, oriented x3, gait normal and no focal motor deficits Speech: speech normal Extrem General: full ROM Other: Patient has mild, nonpitting edema around her bilateral ankles, with tenderness over the same distribution. Psych Appearance: well kempt Mental Status: mental status grossly normal Attitude: cooperative Thought Content: normal and suicidality Judgment: judgment good <Valerio East DO - Last Filed: 01/23/19 20:22> Initial Vital Signs Initial Vital Signs: Vital Signs Temperature 97.7 F 01/23/19 17:03 Pulse Rate 77 01/23/19 17:03 Respiratory Rate 13 01/23/19 17:03 Blood Pressure 178/60 H 01/23/19 17:03 Pulse Oximetry 100 01/23/19 17:03 Course <Roxanna Adair MD - Last Filed: 01/24/19 19:38> Course Course Narrative: Patient is worked up in the emergency department labs, EKG, and chest x-ray. EKG was unremarkable. Cardiac labs are pending at the time of this dictation. Patient signed out to Dr. Valerio East, pending laboratory studies, repeat troponin, and disposition. Orders Ordered: Acetaminophen (Tylenol) 650 mg PO Q6HR PRN PRN Reason: As Needed for Fever/Mild Pain Al Hydrox/Mg Hydrox/Simethicone (Maalox Plus) 30 ml PO Q6HR PRN PRN Reason: Dyspepsia Aspirin (Aspirin Ec) 81 mg PO DAILY [facility] Last Admin: 01/24/19 09:26 Dose: 81 mg Documented by: COOKIE Bisacodyl (Dulcolax) 10 mg MO DAILY PRN PRN Reason: Constipation Calcium Carbonate (Tums) 1,000 mg PO Q4HR PRN PRN Reason: Dyspepsia Docusate Sodium (Colace) 100 mg PO BID PRN PRN Reason: Constipation Furosemide (Lasix) 40 mg IV Q12HR [facility] Last Admin: 01/24/19 12:25 Dose: 40 mg Documented by: COOKIE Heparin Sodium (Porcine) (Heparin (Cl/Picc/Mid-Line)) 50 unit IV Q8H [facility] Last Admin: 01/24/19 14:33 Dose: 50 unit Documented by: COOKIE Heparin Sodium (Porcine) (Heparin (Cl/Picc/Mid-Line)) 50 unit IV PRN PRN PRN Reason: PROTOCOL Sodium Chloride (Normal Saline 0.9%) 1,000 mls @ 75 mls/hr IV CONT [facility] Last Infusion: 01/24/19 14:33 Dose: 0 mls/hr Documented by: Admin: 01/23/19 23:34 Dose: 75 mls/hr Documented by: LOC Famotidine (Pepcid) 20 mg in 50 mls @ 200 mls/hr IV Q12HR [facility] Last Infusion: 01/24/19 14:33 Dose: 0 mls/hr Documented by: Admin: 01/24/19 12:25 Dose: 200 mls/hr Documented by: Infusion: 01/24/19 02:00 Dose: 0 mls/hr Documented by: Admin: 01/24/19 01:20 Dose: 200 mls/hr Documented by: LOC Lorazepam (Ativan) 0.25 mg PO Q6HR PRN PRN Reason: Anxiety Last Admin: 01/23/19 23:04 Dose: 0.25 mg Documented by: ADIN Losartan Potassium (Cozaar) 100 mg PO QPM [facility] Last Admin: 01/24/19 16:53 Dose: 100 mg Documented by: ADIN Metoprolol Tartrate (Lopressor) 12.5 mg PO BID [facility] Last Admin: 01/24/19 09:23 Dose: 12.5 mg Documented by: COOKIE Nitroglycerin (Nitrostat) 0.4 mg SL [id number] PRN PRN Reason: Chest Pain Ondansetron HCl (Zofran) 4 mg IV Q8HR PRN PRN Reason: Nausea And Vomiting Rosuvastatin Calcium (Crestor) 40 mg PO QPM [facility] Last Admin: 01/24/19 16:53 Dose: 40 mg Documented by: ADIN Discontinued Medications Furosemide (Lasix) 20 mg PO DAILY [facility] Last Admin: 01/24/19 09:26 Dose: Not Given Documented by: COOKIE Heparin Sodium (Porcine) (Heparin) 5,000 unit SUBCUT BID [facility] Stop: 01/23/19 21:39 Last Admin: 01/23/19 21:41 Dose: 5,000 unit Documented by: TRIPP Heparin Sodium (Porcine) (Heparin) 7,000 unit 80 unit/kg (7000 unit) IV NOW ONE Stop: 01/23/19 21:40 Last Admin: 01/23/19 23:20 Dose: Not Given Documented by: LOC Heparin Sodium/Dextrose (Heparin Drip) 25,000 unit in 500 mls @ 21.12 mls/hr IV CONT [facility]; Protocol Last Admin: 01/23/19 23:20 Dose: Not Given Documented by: LOC Heparin Sodium/Dextrose (Heparin Drip) 25,000 unit in 500 mls @ 20 mls/hr IV CONT [facility]; Protocol Last Admin: 01/24/19 00:47 Dose: 1,056 units/hr, 21.12 mls/hr Documented by: LOC Nitroglycerin (Nitro-Bid) 0.5 inch TOP NOW ONE Stop: 01/23/19 18:46 Last Admin: 01/23/19 18:49 Dose: 0.5 inch Documented by: PHANI Nitroglycerin (Nitrostat) 0.4 mg SL NOW ONE Stop: 01/23/19 21:25 Last Admin: 01/23/19 21:54 Dose: 0.4 mg Documented by: TRIPP Nitroglycerin (Nitro-Bid) 1 inch TOP NOW ONE Stop: 01/23/19 21:36 Last Admin: 01/23/19 21:56 Dose: 1 inch Documented by: TRIPP Vital Signs Vital signs: Vital Signs - 8 hr 01/23/19 17:03 01/23/19 17:30 01/23/19 18:00 Temperature 97.7 F Pulse Rate 77 72 68 Respiratory Rate 13 13 12 Blood Pressure 178/60 H Blood Pressure [Right Arm] 154/54 H 154/47 H Pulse Oximetry 100 96 98 01/23/19 18:30 01/23/19 19:00 01/23/19 19:30 Temperature Pulse Rate 82 79 72 Respiratory Rate 27 H 19 21 Blood Pressure Blood Pressure [Right Arm] 151/54 H 150/50 H 137/54 L Pulse Oximetry 98 97 98 01/23/19 20:00 Temperature Pulse Rate 66 Respiratory Rate 15 Blood Pressure Blood Pressure [Right Arm] 134/48 L Pulse Oximetry 97 <Valerio East, DO - Last Filed: 01/23/19 20:22> Orders Ordered: Acetaminophen (Tylenol) 650 mg PO Q6HR PRN PRN Reason: As Needed for Fever/Mild Pain Al Hydrox/Mg Hydrox/Simethicone (Maalox Plus) 30 ml PO Q6HR PRN PRN Reason: Dyspepsia Aspirin (Aspirin Ec) 81 mg PO DAILY [facility] Last Admin: 01/24/19 09:26 Dose: 81 mg Documented by: COOKIE Bisacodyl (Dulcolax) 10 mg MO DAILY PRN PRN Reason: Constipation Calcium Carbonate (Tums) 1,000 mg PO Q4HR PRN PRN Reason: Dyspepsia Docusate Sodium (Colace) 100 mg PO BID PRN PRN Reason: Constipation Furosemide (Lasix) 40 mg IV Q12HR [facility] Last Admin: 01/24/19 12:25 Dose: 40 mg Documented by: COOKIE Heparin Sodium (Porcine) (Heparin (Cl/Picc/Mid-Line)) 50 unit IV Q8H [facility] Last Admin: 01/24/19 14:33 Dose: 50 unit Documented by: COOKIE Heparin Sodium (Porcine) (Heparin (Cl/Picc/Mid-Line)) 50 unit IV PRN PRN PRN Reason: PROTOCOL Sodium Chloride (Normal Saline 0.9%) 1,000 mls @ 75 mls/hr IV CONT [facility] Last Infusion: 01/24/19 14:33 Dose: 0 mls/hr Documented by: Admin: 01/23/19 23:34 Dose: 75 mls/hr Documented by: LOC Famotidine (Pepcid) 20 mg in 50 mls @ 200 mls/hr IV Q12HR [facility] Last Infusion: 01/24/19 14:33 Dose: 0 mls/hr Documented by: Admin: 01/24/19 12:25 Dose: 200 mls/hr Documented by: Infusion: 01/24/19 02:00 Dose: 0 mls/hr Documented by: Admin: 01/24/19 01:20 Dose: 200 mls/hr Documented by: LOC Lorazepam (Ativan) 0.25 mg PO Q6HR PRN PRN Reason: Anxiety Last Admin: 01/23/19 23:04 Dose: 0.25 mg Documented by: ADIN Losartan Potassium (Cozaar) 100 mg PO QPM [facility] Last Admin: 01/24/19 16:53 Dose: 100 mg Documented by: ADIN Metoprolol Tartrate (Lopressor) 12.5 mg PO BID [facility] Last Admin: 01/24/19 09:23 Dose: 12.5 mg Documented by: COOKIE Nitroglycerin (Nitrostat) 0.4 mg SL [id number] PRN PRN Reason: Chest Pain Ondansetron HCl (Zofran) 4 mg IV Q8HR PRN PRN Reason: Nausea And Vomiting Rosuvastatin Calcium (Crestor) 40 mg PO QPM [facility] Last Admin: 01/24/19 16:53 Dose: 40 mg Documented by: ADIN Discontinued Medications Furosemide (Lasix) 20 mg PO DAILY [facility] Last Admin: 01/24/19 09:26 Dose: Not Given Documented by: COOKIE Heparin Sodium (Porcine) (Heparin) 5,000 unit SUBCUT BID [facility] Stop: 01/23/19 21:39 Last Admin: 01/23/19 21:41 Dose: 5,000 unit Documented by: TRIPP Heparin Sodium (Porcine) (Heparin) 7,000 unit 80 unit/kg (7000 unit) IV NOW ONE Stop: 01/23/19 21:40 Last Admin: 01/23/19 23:20 Dose: Not Given Documented by: LOC Heparin Sodium/Dextrose (Heparin Drip) 25,000 unit in 500 mls @ 21.12 mls/hr IV CONT [facility]; Protocol Last Admin: 01/23/19 23:20 Dose: Not Given Documented by: LOC Heparin Sodium/Dextrose (Heparin Drip) 25,000 unit in 500 mls @ 20 mls/hr IV CONT [facility]; Protocol Last Admin: 01/24/19 00:47 Dose: 1,056 units/hr, 21.12 mls/hr Documented by: LOC Nitroglycerin (Nitro-Bid) 0.5 inch TOP NOW ONE Stop: 01/23/19 18:46 Last Admin: 01/23/19 18:49 Dose: 0.5 inch Documented by: PHANI Nitroglycerin (Nitrostat) 0.4 mg SL NOW ONE Stop: 01/23/19 21:25 Last Admin: 01/23/19 21:54 Dose: 0.4 mg Documented by: TRIPP Nitroglycerin (Nitro-Bid) 1 inch TOP NOW ONE Stop: 01/23/19 21:36 Last Admin: 01/23/19 21:56 Dose: 1 inch Documented by: TRIPP Vital Signs Vital signs: Vital Signs - 8 hr 01/23/19 17:03 01/23/19 17:30 01/23/19 18:00 Temperature 97.7 F Pulse Rate 77 72 68 Respiratory Rate 13 13 12 Blood Pressure 178/60 H Blood Pressure [Right Arm] 154/54 H 154/47 H Pulse Oximetry 100 96 98 01/23/19 18:30 01/23/19 19:00 01/23/19 19:30 Temperature Pulse Rate 82 79 72 Respiratory Rate 27 H 19 21 Blood Pressure Blood Pressure [Right Arm] 151/54 H 150/50 H 137/54 L Pulse Oximetry 98 97 98 01/23/19 20:00 Temperature Pulse Rate 66 Respiratory Rate 15 Blood Pressure Blood Pressure [Right Arm] 134/48 L Pulse Oximetry 97 MDM - Chest Pain <Roxanna Adair MD - Last Filed: 01/24/19 19:38> Medical Records Data Attestation: I reviewed the patient's medical records. Lab Data Attestation: I reviewed the patient's lab results. Result diagrams: 01/23/19 17:33 01/23/19 22:28 Labs: Lab Results 01/23/19 01/23/19 01/23/19 Range/Units 17:33 17:33 17:33 WBC 9.3 (4.5-11.0) X10^3/uL RBC 4.90 (4.0-5.2) X10^6/uL Hgb 14.2 (12.0-16.0) g/dL Hct 42.1 (36-46) % MCV 86.0 (80-100) fL MCH 29.0 (26-34) PG MCHC 33.7 (30-36) % RDW 16.0 H (11.6-14.8) % Plt Count 201 (150-400) X10^3/uL Neut % (Auto) 56.9 (50-75) % Lymph % (Auto) 32.0 (25-40) % Lipscomb % (Auto) 7.8 (3-14) % Eos % (Auto) 2.4 (2-4) % Baso % (Auto) 0.9 (0-2) % Neut # (Auto) 5300 (5556-4712) /uL Lymph # (Auto) 3000 (7566-6312) /uL Lipscomb # (Auto) 700 (0-900) /uL Eos # (Auto) 200 (0-450) /uL Baso # (Auto) 100 (0-100) /uL Sodium 139 (137-145) mmol/L Potassium 3.8 (3.4-5.1) mmol/L Chloride 103 (98-107) mmol/L Carbon Dioxide 24 (22-32) mmol/L BUN 18 H (7-17) mg/dL Creatinine 0.80 (0.52-1.04) mg/dL Estimated GFR > 60.0 (>60) mL/min BUN/Creatinine Ratio 22.5 H (6-22) Glucose 97 (80-110) mg/dL Calcium 9.8 (8.4-10.2) mg/dL Magnesium 2.1 (1.6-2.3) mg/dL Total Bilirubin 0.6 (0.2-1.3) mg/dL AST 26 (14-36) IU/L ALT 11 (9-52) IU/L Alkaline Phosphatase 59 (38-126) U/L Total Creatine Kinase 51 (30-135) U/L CK-MB (CK-2) TNP CK-MB (CK-2) Rel Index TNP Troponin I < 0.012 (0.01-0.034) ng/mL Total Protein 7.8 (6.3-8.2) g/dL Albumin 4.5 (3.5-5.0) g/dL Globulin 3.3 (1.7-4.1) g/dL Albumin/Globulin Ratio 1.4 (1.0-2.8) 01/23/19 Range/Units 19:28 WBC (4.5-11.0) X10^3/uL RBC (4.0-5.2) X10^6/uL Hgb (12.0-16.0) g/dL Hct (36-46) % MCV (80-100) fL MCH (26-34) PG MCHC (30-36) % RDW (11.6-14.8) % Plt Count (150-400) X10^3/uL Neut % (Auto) (50-75) % Lymph % (Auto) (25-40) % Lipscomb % (Auto) (3-14) % Eos % (Auto) (2-4) % Baso % (Auto) (0-2) % Neut # (Auto) (4146-3250) /uL Lymph # (Auto) (4489-1165) /uL Lipscomb # (Auto) (0-900) /uL Eos # (Auto) (0-450) /uL Baso # (Auto) (0-100) /uL Sodium (137-145) mmol/L Potassium (3.4-5.1) mmol/L Chloride (98-107) mmol/L Carbon Dioxide (22-32) mmol/L BUN (7-17) mg/dL Creatinine (0.52-1.04) mg/dL Estimated GFR (>60) mL/min BUN/Creatinine Ratio (6-22) Glucose (80-110) mg/dL Calcium (8.4-10.2) mg/dL Magnesium (1.6-2.3) mg/dL Total Bilirubin (0.2-1.3) mg/dL AST (14-36) IU/L ALT (9-52) IU/L Alkaline Phosphatase (38-126) U/L Total Creatine Kinase (30-135) U/L CK-MB (CK-2) CK-MB (CK-2) Rel Index Troponin I < 0.012 (0.01-0.034) ng/mL Total Protein (6.3-8.2) g/dL Albumin (3.5-5.0) g/dL Globulin (1.7-4.1) g/dL Albumin/Globulin Ratio (1.0-2.8) <Valerio East DO - Last Filed: 01/23/19 20:22> Lab Data Labs: Lab Results 01/23/19 01/23/19 01/23/19 Range/Units 17:33 17:33 17:33 WBC 9.3 (4.5-11.0) X10^3/uL RBC 4.90 (4.0-5.2) X10^6/uL Hgb 14.2 (12.0-16.0) g/dL Hct 42.1 (36-46) % MCV 86.0 (80-100) fL MCH 29.0 (26-34) PG MCHC 33.7 (30-36) % RDW 16.0 H (11.6-14.8) % Plt Count 201 (150-400) X10^3/uL Neut % (Auto) 56.9 (50-75) % Lymph % (Auto) 32.0 (25-40) % Lipscomb % (Auto) 7.8 (3-14) % Eos % (Auto) 2.4 (2-4) % Baso % (Auto) 0.9 (0-2) % Neut # (Auto) 5300 (4079-1168) /uL Lymph # (Auto) 3000 (9630-5691) /uL Lipscomb # (Auto) 700 (0-900) /uL Eos # (Auto) 200 (0-450) /uL Baso # (Auto) 100 (0-100) /uL Sodium 139 (137-145) mmol/L Potassium 3.8 (3.4-5.1) mmol/L Chloride 103 (98-107) mmol/L Carbon Dioxide 24 (22-32) mmol/L BUN 18 H (7-17) mg/dL Creatinine 0.80 (0.52-1.04) mg/dL Estimated GFR > 60.0 (>60) mL/min BUN/Creatinine Ratio 22.5 H (6-22) Glucose 97 (80-110) mg/dL Calcium 9.8 (8.4-10.2) mg/dL Magnesium 2.1 (1.6-2.3) mg/dL Total Bilirubin 0.6 (0.2-1.3) mg/dL AST 26 (14-36) IU/L ALT 11 (9-52) IU/L Alkaline Phosphatase 59 (38-126) U/L Total Creatine Kinase 51 (30-135) U/L CK-MB (CK-2) TNP CK-MB (CK-2) Rel Index TNP Troponin I < 0.012 (0.01-0.034) ng/mL Total Protein 7.8 (6.3-8.2) g/dL Albumin 4.5 (3.5-5.0) g/dL Globulin 3.3 (1.7-4.1) g/dL Albumin/Globulin Ratio 1.4 (1.0-2.8) 01/23/19 Range/Units 19:28 WBC (4.5-11.0) X10^3/uL RBC (4.0-5.2) X10^6/uL Hgb (12.0-16.0) g/dL Hct (36-46) % MCV (80-100) fL MCH (26-34) PG MCHC (30-36) % RDW (11.6-14.8) % Plt Count (150-400) X10^3/uL Neut % (Auto) (50-75) % Lymph % (Auto) (25-40) % Lipscomb % (Auto) (3-14) % Eos % (Auto) (2-4) % Baso % (Auto) (0-2) % Neut # (Auto) (7513-2951) /uL Lymph # (Auto) (8256-6170) /uL Lipscomb # (Auto) (0-900) /uL Eos # (Auto) (0-450) /uL Baso # (Auto) (0-100) /uL Sodium (137-145) mmol/L Potassium (3.4-5.1) mmol/L Chloride (98-107) mmol/L Carbon Dioxide (22-32) mmol/L BUN (7-17) mg/dL Creatinine (0.52-1.04) mg/dL Estimated GFR (>60) mL/min BUN/Creatinine Ratio (6-22) Glucose (80-110) mg/dL Calcium (8.4-10.2) mg/dL Magnesium (1.6-2.3) mg/dL Total Bilirubin (0.2-1.3) mg/dL AST (14-36) IU/L ALT (9-52) IU/L Alkaline Phosphatase (38-126) U/L Total Creatine Kinase (30-135) U/L CK-MB (CK-2) CK-MB (CK-2) Rel Index Troponin I < 0.012 (0.01-0.034) ng/mL Total Protein (6.3-8.2) g/dL Albumin (3.5-5.0) g/dL Globulin (1.7-4.1) g/dL Albumin/Globulin Ratio (1.0-2.8) Imaging Data Chest x-ray: Radiologist's impression: MDM Narrative Medical decision making narrative: Dr east: Received turned over from day provider. Reviewed patient's history and physical. Perform his own independent physical exam. Patient has had constant symptoms since 1500 hours this afternoon. She states that the symptoms have been worse and better during this time but she states she has never been completely asymptomatic. Initial EKG is nonspecific ST T wave changes. During my evaluation the patient she states that she started have a spike in the pain again. An EKG was repeated and it shows a sinus rhythm with a rate 82 with an incomplete right bundle branch block, LVH, and nonspecific ST T wave changes. Her 2nd troponin was negative. I did discuss the case with Dr. Pearson with Cardiology. He did recommend patient being admitted for trending of the troponins and a stress test. He states that she would not be taken to the log marker unless her troponin elevates she had an abnormal stress test. She did take a full-dose aspirin before coming to the emergency department. Nitropaste was placed after was ordered by myself. She did have an improvement of her symptoms however unsure whether not this was her waxing and waning symptoms or the nitro that was causing the improvement. Given her history and physical exam will admit the patient for further evaluation and treatment. Discussed the case with LAUREEN Huynh who will admit. Discussed remission with the patient. She expressed understanding and agreement. Discharge Plan Departure Patient Disposition: Admitted as Observation Clinical Impression: Chest pain Discharge Date/Time: 01/23/19 20:40 Admit Date/Time: 01/23/19 20:22 Admit Provider: Krunal Huynh
[2019-01-23 17:39] LABS: Add Manual Diff / Slide Review NO; Basophils Absolute Auto 100 /uL (0-100); Basophils Percent Auto 0.9 % (0-2); Eosinophils Absolute Auto 200 /uL (0-450); Eosinophils Percent Auto 2.4 % (2-4); Hematocrit 42.1 % (36-46); Hemoglobin 14.2 g/dL (12.0-16.0); Lymphocytes Absolute Auto 3000 /uL (1100-4500); Mean Corpuscular HGB Conc 33.7 % (30-36); Monocytes Absolute Auto 700 /uL (0-900); Monocytes Percent Auto 7.8 % (3-14); Neutrophils Absolute Auto 5300 /uL (1500-7000); Neutrophils Percent Auto 56.9 % (50-75); Platelet Count 201 X10^3/uL (150-400); White Blood Cell Count 9.3 X10^3/uL (4.5-11.0)
[2019-01-23 17:52] LABS: Alanine Aminotransferase 11 IU/L (9-52); Albumin 4.5 g/dL (3.5-5.0); Albumin Globulin Ratio 1.4 (1.0-2.8); Alkaline Phosphatase 59 U/L (38-126); Aspartate Aminotransferase 26 IU/L (14-36); BUN Creatinine Ratio 22.5 (6-22); Bilirubin Total 0.6 mg/dL (0.2-1.3); Blood Urea Nitrogen 18 mg/dL (7-17); Calcium 9.8 mg/dL (8.4-10.2); Carbon Dioxide 24 mmol/L (22-32); Chloride 103 mmol/L (98-107); Creatine Kinase 51 U/L (30-135); Estimated Glomerular Filt Rate > 60.0 mL/min (>60); Globulin 3.3 g/dL (1.7-4.1); Glucose 97 mg/dL (80-110); HEMOLYSIS 22 (0-50); Potassium 3.8 mmol/L (3.4-5.1); Sodium 139 mmol/L (137-145); Total Protein 7.8 g/dL (6.3-8.2)
[2019-01-23 18:04] LABS: Troponin I < 0.012 ng/mL (0.01-0.034)
[2019-01-23] MEDS: NITROGLYCERIN OINT 1 INCH/GM OINT...G. 0.5 INCH TOP (18:49)
[2019-01-23 19:57] LABS: Troponin I < 0.012 ng/mL (0.01-0.034)
--- NOTE | 2019-01-23 21:24 | PC.ADMIT ---
[id number] [facility] 179 Admission Note: The patient,Lida Townsend,83 y/o, was given written information regarding hospital policies, unit procedures and contact persons. Patient's smoking status: Never smoker. Vital Signs - 8 hr 01/23/19 17:03 01/23/19 17:30 01/23/19 18:00 Temperature 97.7 F Pulse Rate 77 72 68 Respiratory Rate 13 13 12 Blood Pressure 178/60 H Blood Pressure [Right Arm] 154/54 H 154/47 H Pulse Oximetry 100 96 98 01/23/19 18:30 01/23/19 19:00 01/23/19 19:30 Temperature Pulse Rate 82 79 72 Respiratory Rate 27 H 19 21 Blood Pressure Blood Pressure [Right Arm] 151/54 H 150/50 H 137/54 L Pulse Oximetry 98 97 98 01/23/19 20:00 01/23/19 20:30 01/23/19 21:16 Temperature 97.5 F L Pulse Rate 66 63 62 Respiratory Rate 15 16 18 Blood Pressure 129/49 L 152/60 H Blood Pressure [Right Arm] 134/48 L Pulse Oximetry 97 94 95 Admit to room 210 AC from ED due to chest pain unrelieved by Nitroglycerin at Home x 2. Oriented to room, environment, and plan of care. Jono URIBE at bedside.
--- NOTE | 2019-01-23 21:26 | PC.NURSE ---
Addendum entered by Jesi Gallego R.N. 01/23/19 22:46: Patient transferred to ICU via hospital bed with this RN and Manjinder HENRY. Patient on Tele monitoring and IV access established. Midline with double lumen to left upper arm by [facility] PICC nurse. Awake, alert, oriented. NO c/o chest pain. Report given earlier by phone to receiving nurse Miriam FREDERICK. VS 119/50 HR 61, 96% on RA. Daughter at bedside providing supportive care. Addendum entered by Jesi Gallego R.N. 01/23/19 21:59: 2159 Post x 1 SL nitroglycerin and 1 in Nitro past to right upper chest, Patient report NO chest pain, no dizziness, or SOB. BP 121/56 HR 61. Awake, alert, and very pleasant. Donny PICC line nurse at bedside. O2 sat 96% on RA. Patient to remain on bedrest. Will be transferring to ICU upon establishment of IV access. Original Note: Kelsey shift note: Received patient from ED to room 210, ambulated from [facility] to bed with minimal stand by assist. Awake, alert, and pleasant. C/O chest pain to left upper chest, radiates to left shoulder, and mid upper back, described as ache 5/10 at rest, exacerbated with activity. Nitroglycerin 0.4 mg SL administered x 1, pain 3/10 upon re asses,ent
[2019-01-23] MEDS: HEPARIN 5,000 UNIT/ML VIAL 5000 UNIT SUBCUT (21:41)
[2019-01-23] MEDS: NITROGLYCERIN OINT 1 INCH/GM OINT...G. TOP ×2 (21:44→21:56)
--- NOTE | 2019-01-23 21:44 | PM.HP.1 ---
History of Present Illness History of Present Illness Date Patient Seen: 01/23/19 Time Patient Seen: 21:10 Chief complaint: chest pain Narrative: Ms. Lida Townsend is an 83-year-old female patient with a history significant for coronary artery disease, NSTEMI with stent placement, hyperlipidemia hypertension recent bronchitis and cardiac arrest 40 years ago who presents to the ER today with recurrent chest pain. Patient states she had chest pain 1-2 weeks ago stat that was associated with activity for which she rested took 1 nitro with resolution of pain. Today she states she was at cardiac rehabilitation during which time it was noted her blood pressure dropped to 90 systolic and she had increased shortness of breath and fatigue. On cardiac monitoring she had sinus rhythm with what appeared to be PACs Following cardiac rehab she had an onset of chest pain at 3:00 p.m., got on the senior transport and took 3 nitro without resolution of pain. She describes the pain as substernal with radiation to the neck back and left upper arm. She had associated shortness of breath though she has had shortness of breath for the last several days and has had a continued occasional dry nonproductive cough since being treated for bronchitis 2 weeks ago. She denies pleuritic chest pain or neuropathy. She has had no nausea vomiting. Since recovering from bronchitis 2 weeks ago she has had no recent fevers or chills nasal congestion or sore throat. She did have headache from the nitro. She has persistent occasional dry cough. She denies abdominal pain diarrhea constipation and has no urinary symptoms. Arrival in the ER the patient was afebrile with a temperature of 97.7?, heart rate of 77, blood pressure of 178/60 that improved to 130 4/48. She had respirations of 14 and 100% saturation on room air. EKG obtained in the ER shows sinus rhythm with ventricular rate of 82 with an incomplete right bundle branch block. She does present with apical Q-wave and inverted T-waves in lead 3, V1, V2 unchanged from prior EKG on 01/06/2019. Chest x-ray reveals chronic interstitial prominence but no acute changes. On laboratory analysis she has a white count of 9.3, hemoglobin of 14.2, hematocrit of 42.1 platelets of 201. Her electrolytes are within normal range and has a BUN of 18 and creatinine 0.8. LFTs are unremarkable. Her nonfasting glucose is 97. Her total CK was 51 and she has had 2 troponins all remaining in the ER that were both negative at less than 0.012. The ER physician spoke with Dr. Pearson, cardiology regarding the patient who recommended admission, trending troponins and nonstress test. The patient does not have vascular access and PICC line has been ordered. Patient had 0.5 in of nitropaste applied topical anterior chest. The patient is admitted to the acute floor with stable angina. When the patient arrived on the floor she was ambulated to the bathroom and again developed substernal chest pain radiating to the left arm neck and back, consistent with her prior chest pain presentation. Repeat EKGs obtained still with no significant change from prior tracings, no change in block ST or T-wave changes. Was also identifies the patient has left lower extremity pain with positive home. The patient is transferred to ICU with unstable angina, initiation of heparin and anticipation of nitroglycerin infusion. Patient History Medical History (Updated 01/23/19 @ 22:59 by JOJO Crocker) Cardiac arrest (Acute) Chest pain (Inactive) Coronary artery disease (Acute) Hyperlipidemia (Acute) Hypertension (Acute) Left hamstring muscle strain (Inactive) UTI (urinary tract infection) (Inactive) Surgical History (Updated 01/23/19 @ 23:11 by JOJO Crocker) History of appendectomy (Acute) History of breast implant removal (Acute) History of breast surgery (Acute) History of cholecystectomy (Acute) History of coronary artery stent placement (Acute) History of total abdominal hysterectomy (Acute) Social History household members: children Smoking Status: Never smoker Family & Social History Safety & Behavioral: Feels Safe in Current Yes Environment Been Physically Hurt or No Threatened By a Person Tobacco & Substance use: Smoking Status Never smoker alcohol intake frequency holiday/special occasion Substance Use Type does not use Comment: The patient is and lives in a mobile home. She Has been living alone however her son is staying with her. She reports that her father from surgical complications at age 92. The patient reports that her mother never went to the doctor in in her 80s of unknown cause. She has a sister who is headache CABG x4 4 years ago. She has a son who has had thyroid disease and daughter who has had multiple back surgeries. Smoking: Patient has never smoked Alcohol: Patient states she drinks 3 times here on holidays. Substance use: The patient denies recreational pharmaceuticals herbal or cannabis products. Advanced directives: The patient states she has formal advanced directives and states her wish to be FULL CODE. She designates her daughter Beronica Allison to be her surrogate decision maker. Meds Home Medications and Allergies Home Medications Medication Instructions Recorded Confirmed Type aspirin 81 mg PO DAILY #0 05/14/17 01/23/19 History clopidogrel 75 mg PO DAILY 11/18/18 01/23/19 History cyanocobalamin (vitamin B-12) 2,000 mcg PO DAILY 11/18/18 01/23/19 History ergocalciferol (vitamin D2) 2,500 unit PO DAILY 11/18/18 01/23/19 History nitroglycerin 1 tab SUBLINGUAL [id number] PRN 11/18/18 01/23/19 History rosuvastatin 40 mg PO QPM 11/18/18 01/23/19 History albuterol sulfate 1 - 2 puff INHALATION Q4H PRN 01/23/19 01/23/19 History amlodipine 5 mg PO BID 01/23/19 01/23/19 History desonide 1 applic TOPICAL DIRECTED 01/23/19 01/23/19 History furosemide 20 mg PO DAILY 01/23/19 01/23/19 History ketoconazole 1 applic TOPICAL DIRECTED 01/23/19 01/23/19 History losartan 100 mg PO QPM 01/23/19 01/23/19 History metoprolol tartrate 12.5 mg PO BID 01/23/19 01/23/19 History potassium chloride 10 meq PO DAILY 01/23/19 01/23/19 History Allergies Allergy/AdvReac Type Severity Reaction Status Date / Time erythromycin base Allergy Severe Rash Verified 01/23/19 17:02 [ERYTHROMYCIN BASE] ibuprofen [IBUPROFEN] Allergy Severe Rash Verified 01/23/19 17:02 Iodinated Contrast- Oral and Allergy Severe Rash Verified 01/23/19 17:02 IV Dye [IODINATED CONTRAST- ORAL AND IV DYE] morphine [MORPHINE] Allergy Severe Rash Verified 01/23/19 17:02 naproxen [From ALEVE] Allergy Severe Rash Verified 01/23/19 17:02 telmisartan [TELMISARTAN] Allergy Severe Rash Verified 01/23/19 17:02 Review of Systems Review of Systems ROS Unobtainable: All systems reviewed & are unremarkable except as noted in HPI and below Exam Vital Signs (past 8 hours): - 01/23/19 17:03 01/23/19 17:30 01/23/19 18:00 Temperature 97.7 F Pulse Rate 77 72 68 Respiratory Rate 13 13 12 Blood Pressure 178/60 H Blood Pressure [Right Arm] 154/54 H 154/47 H Pulse Oximetry 100 96 98 01/23/19 18:30 01/23/19 19:00 01/23/19 19:30 Temperature Pulse Rate 82 79 72 Respiratory Rate 27 H 19 21 Blood Pressure Blood Pressure [Right Arm] 151/54 H 150/50 H 137/54 L Pulse Oximetry 98 97 98 01/23/19 20:00 01/23/19 20:30 01/23/19 21:16 Temperature 97.5 F L Pulse Rate 66 63 62 Respiratory Rate 15 16 18 Blood Pressure 129/49 L 152/60 H Blood Pressure [Right Arm] 134/48 L Pulse Oximetry 97 94 95 Oxygen Delivery Method Room Air Narrative Exam Narrative: GENERAL APPEARANCE: well developed, obese female who is uncomfortable appearing. HEENT: Normocephalic, PERRLA, conjunctiva clear, EOMs intact without nystagmus, no rhinorrhea, mucous membranes are moist and pink without lesions or exudate. NECK/THYROID: neck supple, no JVD, no carotid bruit, no thyromegaly, trachea midline. LYMPH NODES: no cervical or supraclavicular lymphadenopathy. SKIN: warm and dry, no suspicious lesions, no rashes, good turgor. HEART: regular rate and rhythm, S1-S2 without murmur, no rubs or gallops, brisk capillary refill, trace bilateral pedal edema LUNGS: clear to auscultation bilaterally, no coarseness crackles or wheezing, no cough present CHEST: symmetrical movement, no change in chest pain with deep inspiration, no pain to AP and lateral compression. ABDOMEN: Soft, round, no epigastric or abdominal tenderness on palpation, no guarding or peritoneal signs, no organomegaly, active bowel tones. BACK: Normal curvature, nontender to palpation EXTREMITIES: moves all extremities, left acute calf tenderness, left anterior ankle pain and swelling, strength is 5/5 and symmetrical, no deformities. NEUROLOGIC: AAO x4, cranial nerves II-XII grossly intact , sensory exam intact to light touch, hearing grossly normal to speech. PSYCH: alert, anxious, cognitive function intact, good eye contact. Objective Labs Result Diagrams: 01/23/19 17:33 01/23/19 22:28 Labs: Laboratory Results - last 24 hr 01/23/19 01/23/19 01/23/19 17:33 17:33 19:28 WBC 9.3 RBC 4.90 Hgb 14.2 Hct 42.1 MCV 86.0 MCH 29.0 MCHC 33.7 RDW 16.0 H Plt Count 201 Neut % (Auto) 56.9 Lymph % (Auto) 32.0 Doddridge % (Auto) 7.8 Eos % (Auto) 2.4 Baso % (Auto) 0.9 Neut # (Auto) 5300 Lymph # (Auto) 3000 Doddridge # (Auto) 700 Eos # (Auto) 200 Baso # (Auto) 100 Sodium 139 Potassium 3.8 Chloride 103 Carbon Dioxide 24 BUN 18 H Creatinine 0.80 Estimated GFR > 60.0 BUN/Creatinine Ratio 22.5 H Glucose 97 Calcium 9.8 Total Bilirubin 0.6 AST 26 ALT 11 Alkaline Phosphatase 59 Total Creatine Kinase 51 CK-MB (CK-2) TNP CK-MB (CK-2) Rel Index TNP Troponin I < 0.012 < 0.012 Total Protein 7.8 Albumin 4.5 Globulin 3.3 Albumin/Globulin Ratio 1.4 Assessment & Plan Assessment & Plan narrative: This is an 83-year-old female patient presents to the ER with chest pain radiating to the left arm neck and back that was unrelieved with nitro. She has had prior episodes and chest pain is provoked by activity. She is admitted to the hospital following cardiology consult for stable angina. While being admitted to the floor the patient developed chest pain walking to the bathroom while the patient had nitropaste applied to her anterior chest. Patient was given another sublingual nitro slowly resolving her chest pain. The patient is admitted to the ICU in anticipation nitroglycerin drip. 1. Chest pain, acute unstable angina, present on admission, active -history of CAD, NSTEMI in September 2018, stents x4. Patient developed chest pain post cardiac rehab today unrelieved with nitro. -patient with chest pain as above treated resolved in the ER and nitropaste was applied. Recurrent chest pain with left arm, back and neck pain resolved with 1 nitro. -PICC line is inserted, patient transferred to ICU, troponins have been negative at less than 0.012. Stat EKG is unchanged. -heparin infusion per cardiac protocol. Patient has already received 5000 units of heparin subcutaneously will start heparin drip at 1000 units titrated per protocol. -nitropaste anterior chest 1 in, patient remains pain free, will continue current therapy and initiate nitroglycerin drip for recurrent chest pain. -will trend troponins and monitor closely. -echocardiogram in the morning. Prior limited echocardiogram 11/19/2018 describes in the EF of 60-65% with normal LV we will motion without hypertrophy. -patient with positive stress test and ambulating to bathroom, previous ordered nuclear med stress test this canceled. -Dr. Pearson consulted by ER physician, the patient is followed at [facility] but they have no beds. Patient is stable at this time. Will re-evaluate patient with Cardiology in the morning. 2. Acute left calf pain, possible DVT, present on admission, active -identified left calf tenderness with positive Selvin on exam, patient previously on aspirin and Plavix. Also complains of tenderness anterior left ankle. -Wells criteria score is 2 for moderate probability, will obtain D-dimer. -patient started on heparin drip for cardiac chest pain will treat DVT concurrently if present. 3. Possible pulmonary embolism, acute, present on admission, active -patient with chest pain more likely cardiac in origin however patient has negative troponins with a stable EKG. Chest pain is nonpleuritic. -patient has had shortness of breath for several days, treated 2 weeks ago for bronchitis and has residual dry nonproductive cough. No hemoptysis. -PESI score is 111, high risk for pulmonary embolism. -patient has allergy to Radiology contrast that provoked cardiac arrest 40 years ago. -will await D-dimer and may consider CT angio of the chest if the patient becomes more dyspneic or chest pain changes. -the patient is already on heparin for cardiac chest pain conferring treatment for PE as well. Will re-evaluate indications for exam in the morning. 4. Essential Hypertension, chronic, present on admission, active. -blood pressure of 178/60 upon admission to the emergency department improved to 140 systolic. -will modify antihypertensive therapy, will continue losartan 100 mg daily, metoprolol 12.5 mg twice daily, will hold Lasix and amlodipine. 5. Hyperlipidemia, chronic, presumed stable. -will continue patient's home regimen of rosuvastatin 40 mg daily at bedtime. The patient is admitted to hospital due to the severity symptoms and risk of adverse events in complications. The patient is admitted to the ICU due to recurrent chest pain and unstable angina. The patient is admitted as an inpatient with expected length of stay to be greater than 2 midnights. Critical care time: 50 minutes involved assessing, reassessing, interpreting lab results and discussing plan of care with the patient. Scores GCS Jarek coma scale eye opening: Spontaneous Grover coma scale verbal response: Orientated Grover coma scale motor response: Obey commands Jarek coma scale total score: 15
[2019-01-23] MEDS: NITROGLYCERIN 0.4 MG SL TAB SL (21:54)
--- NOTE | 2019-01-23 21:54 | DI.US.S_ITS ---
PROCEDURE: [facility] VENOUS LOW EXTREM LT INDICATIONS: left lower leg pain, clinical concern for DVT TECHNIQUE: Real-time imaging, as well as color and pulse Doppler interrogation, were performed of the lower extremity deep veins from the inguinal ligament to the popliteal fossa. COMPARISON: [facility], , [facility] VENOUS LOW EXTREM BI, 09/20/2018, 9:36. FINDINGS: The common femoral, femoral and popliteal veins are normally compressible, and free of intraluminal thrombus. Color and pulse Doppler demonstrate normal phasic intraluminal flow. There is normal augmentation response to distal compression maneuver. At the area of clinical concern within the anterolateral left ankle, there is a potential soft tissue lipoma seen that measures 3.5 x 3.2 x 1 cm. IMPRESSION: Negative for deep venous thrombosis. Likely lipoma seen at the area of clinical concern involving the anterolateral left ankle. Dictated by: Venkat Tucker M.D. on 01/24/2019 at 11:26 Approved by: Venkat Tucker M.D. on 01/24/2019 at 11:28
[2019-01-23 22:05] LABS: Magnesium 2.1 mg/dL (1.6-2.3)
[2019-01-23 22:50] LABS: Blood Urea Nitrogen 16 mg/dL (7-17); Calcium 9.4 mg/dL (8.4-10.2); Carbon Dioxide 29 mmol/L (22-32); Chloride 104 mmol/L (98-107); Estimated Glomerular Filt Rate > 60.0 mL/min (>60); Glucose 112 mg/dL (80-110); HEMOLYSIS < 15 (0-50); Potassium 3.9 mmol/L (3.4-5.1); Sodium 138 mmol/L (137-145)
[2019-01-23 23:02] LABS: Troponin I < 0.012 ng/mL (0.01-0.034)
[2019-01-23] MEDS: LORazepam 0.5 MG TABLET 0.25 MG PO (23:04)
[2019-01-23] MEDS: SODIUM CHLORIDE 0.9% 1,000 ML 75 ML IV (23:34)
[2019-01-23 23:56] LABS: Appearance Urine UA CLEAR; Bacteria Urine None Seen; Bilirubin Urine UA NEGATIVE (NEGATIVE); Color Urine UA YELLOW; Glucose Urine UA NEGATIVE (Negative); Ketones Urine UA NEGATIVE (NEGATIVE); Leukocyte Esterase Urine UA NEGATIVE (NEGATIVE); Nitrite Urine UA NEGATIVE (Negative); Occult Blood Urine UA TRACE-INTACT (Negative); Protein Urine UA NEGATIVE (Negative); Urobilinogen Urine UA 0.2 E.U./dL (0.2); WBC Urine None Seen (0-5/HPF)
[2019-01-24] VITALS (22 sets, daily range): BP systolic 97–142; BP diastolic 39–59; PULSE 56–68; RESP 10–18; TEMP 36.2–37.5; O2SAT 94–98
[2019-01-24 00:02] LABS: RBC Urine 0-1/HPF (0-5/HPF); Squamous Epithelial Cell Urine 0-1 /HPF (0-5/HPF); pH Urine UA 6.5 (4.5-8.0)
[2019-01-24 00:03] LABS: Culture Indicated Urine Cult Not Indicated
[2019-01-24 00:24] LABS: INR 1.1 (0.9-1.3); Prothrombin Time 12.2 SECONDS (10.1-12.7)
[2019-01-24 00:27] LABS: PTT Partial Thromboplastin Tim 30 SECONDS (26.4-36.2)
[2019-01-24] MEDS: HEPARIN DRIP 25,000 UNIT/500 ML IV.SOLN 21.12 UNIT IV (00:47)
[2019-01-24 00:53] LABS: D Dimer 365 ng/mL (<230)
[2019-01-24] MEDS: FAMOTIDINE 20 MG/50 ML PIGGYBACK 200 MG IV ×3 (01:20→23:36)
--- NOTE | 2019-01-24 01:34 | PC.NURSE ---
Pt remains CP free since transfer to the ICU. VSS, afebrile. Heparin GTT infusing per Acute Coronary protocol. Next PTT at 0630.
[2019-01-24 07:28] LABS: INR 1.1 (0.9-1.3); Prothrombin Time 12.7 SECONDS (10.1-12.7)
[2019-01-24 07:36] LABS: Cholesterol 148 mg/dL (140-199); HDL Cholesterol 53 mg/dL (40-60); LDL Cholesterol Calculated 75 mg/dL (<100); Triglycerides 98 mg/dL (35-150)
[2019-01-24 07:47] LABS: Troponin I < 0.012 ng/mL (0.01-0.034)
[2019-01-24 07:52] LABS: PTT Partial Thromboplastin Tim 84 SECONDS (26.4-36.2)
[2019-01-24] MEDS: METOPROLOL IR 25 MG TABLET 12.5 MG PO ×2 (09:23→21:21)
[2019-01-24] MEDS: ASPIRIN EC 81 MG TABLET PO (09:26)
[2019-01-24] MEDS: FUROSEMIDE 40 MG/4 ML VIAL IV ×2 (12:25→23:36)
[2019-01-24 14:53] LABS: PTT Partial Thromboplastin Tim 107 SECONDS (26.4-36.2)
--- NOTE | 2019-01-24 15:19 | PC.NURSE ---
Am shift Pt is A/o x4, denies chest pain, although reports some pressure with exertion. SOB with any activity. 2L NC per protocol. Heparin gtt infusing, Labs drawn from PICC. Daughter at bedside. Lungs clear, dim to bases. 96% 2L. Doppler of LE negative for DVT, echo results pending. Heparin gtt stopped per order, Pt is changed to Floor care. Plan-If dieresis is ineffective for chest pressure, transfer to [facility] for cardiac cath may be indicated.
--- NOTE | 2019-01-24 16:29 | PM.PN.1 ---
Subjective Subjective Date Patient Seen: 01/24/19 Time Patient Seen: 16:31 Interval history: Ms. Lida Townsend is an 83-year-old female patient with a history significant for coronary artery disease, NSTEMI with stent placement, hyperlipidemia hypertension recent bronchitis and cardiac arrest 40 years ago who presents to the ER with recurrent chest pain. She was at cardiac rehab when she developed new onset left-sided chest pressure radiating to her neck, this was not relieved 3 nitros and she was brought into the ED. She has felt weaker over the past few weeks as well, but states that he she has lost some weight since starting cardiac rehab. Her dyspnea on exertion seems slightly decreased from before. Previously she would be able to walk around [place] without problems and now she can barely go to the bathroom. She states that she was admitted about a month ago with decompensated heart failure as well. On my exam she had some bibasilar rales and lower extremity edema, consistent with volume overload. An echocardiogram today revealed no significant changes compared to prior examinations. Her troponins have been negative. I called the on-call manager monitoring at [facility] Dr. Pearson who recommended diuresis today, and if chest pain continues, to call back tomorrow for a possible left heart catheterization. She is unable to get a stress test today because of a national shortage on the radioactive tracer. She complained of left leg pain, however D-dimer was negative by age cut off, and ultrasound showed no DVTs. Exam Vital Signs (past 8 hours): - 01/24/19 09:10 01/24/19 12:00 01/24/19 16:06 Temperature 97.9 F 97.8 F Pulse Rate 68 63 63 Respiratory Rate 10 L 16 16 Blood Pressure 126/47 L 109/39 L 129/56 L Pulse Oximetry 94 97 96 Oxygen Delivery Method Nasal Cannula Oxygen Flow Rate 2 Narrative Exam Narrative: GENERAL APPEARANCE: Well developed, well nourished, in no acute distress. SKIN: Inspection of the skin reveals no rashes, ulcerations or petechiae. HEENT: The sclerae were anicteric and conjunctivae were pink and moist. Extraocular movements were intact and pupils were equal, round with normal accommodation. External inspection of the ears and nose showed no scars, lesions, or masses. Lips, teeth, and gums showed normal mucosa. The oral mucosa, hard and soft palate, tongue and posterior pharynx were unremarkable. NECK: Supple and symmetric. There was no thyroid enlargement, and no tenderness, or masses were felt. CHEST: Normal AP diameter and normal contour without any kyphoscoliosis. LUNGS: Auscultation of the lungs revealed no wheezes, rhonchi. There are bibasilar rales. CARDIOVASCULAR: There was a regular rate and rhythm without any murmurs, gallops, rubs. Peripheral pulses were 2+ and symmetric. ABDOMEN: Soft and nontender with normal bowel sounds. No ascites was noted. MUSCULOSKELETAL: There was mild tenderness to the L calf muscle. Muscle strength and tone were normal. EXTREMITIES: No cyanosis, clubbing. There is 1-2+ edema bilaterally. NEUROLOGIC: Alert and oriented x 3. Normal affect. Gait was normal. Strength is +5/5 in the Upper Extremities and Lower Extremities Bilaterally. Sensation to touch was normal. Objective Labs Result Diagrams: 01/23/19 17:33 01/23/19 22:28 Labs: Laboratory Results - last 24 hr 01/23/19 01/23/19 01/23/19 17:33 17:33 17:33 WBC 9.3 RBC 4.90 Hgb 14.2 Hct 42.1 MCV 86.0 MCH 29.0 MCHC 33.7 RDW 16.0 H Plt Count 201 Neut % (Auto) 56.9 Lymph % (Auto) 32.0 Barber % (Auto) 7.8 Eos % (Auto) 2.4 Baso % (Auto) 0.9 Neut # (Auto) 5300 Lymph # (Auto) 3000 Barber # (Auto) 700 Eos # (Auto) 200 Baso # (Auto) 100 PT INR APTT D-Dimer Sodium 139 Potassium 3.8 Chloride 103 Carbon Dioxide 24 BUN 18 H Creatinine 0.80 Estimated GFR > 60.0 BUN/Creatinine Ratio 22.5 H Glucose 97 Calcium 9.8 Magnesium 2.1 Total Bilirubin 0.6 AST 26 ALT 11 Alkaline Phosphatase 59 Total Creatine Kinase 51 CK-MB (CK-2) TNP CK-MB (CK-2) Rel Index TNP Troponin I < 0.012 Total Protein 7.8 Albumin 4.5 Globulin 3.3 Albumin/Globulin Ratio 1.4 Triglycerides Cholesterol LDL Cholesterol, Calc HDL Cholesterol Urine Color Urine Appearance Urine pH Ur Specific Epping Urine Protein Urine Glucose (UA) Urine Ketones Urine Occult Blood Urine Nitrate Urine Bilirubin Urine Urobilinogen Ur Leukocyte Esterase Urine RBC Urine WBC Ur Squamous Epith Cells Urine Bacteria Ur Culture Indicated? Nasal Screen MRSA (PCR) 01/23/19 01/23/19 01/23/19 19:28 22:28 22:28 WBC Cancelled RBC Cancelled Hgb Cancelled Hct Cancelled MCV Cancelled MCH Cancelled MCHC Cancelled RDW Cancelled Plt Count Cancelled Neut % (Auto) Cancelled Lymph % (Auto) Cancelled Barber % (Auto) Cancelled Eos % (Auto) Cancelled Baso % (Auto) Cancelled Neut # (Auto) Cancelled Lymph # (Auto) Cancelled Barber # (Auto) Cancelled Eos # (Auto) Cancelled Baso # (Auto) Cancelled PT INR APTT D-Dimer Sodium 138 Potassium 3.9 Chloride 104 Carbon Dioxide 29 BUN 16 Creatinine 0.80 Estimated GFR > 60.0 BUN/Creatinine Ratio 20.0 Glucose 112 H Calcium 9.4 Magnesium Total Bilirubin AST ALT Alkaline Phosphatase Total Creatine Kinase CK-MB (CK-2) CK-MB (CK-2) Rel Index Troponin I < 0.012 Total Protein Albumin Globulin Albumin/Globulin Ratio Triglycerides Cholesterol LDL Cholesterol, Calc HDL Cholesterol Urine Color Urine Appearance Urine pH Ur Specific Epping Urine Protein Urine Glucose (UA) Urine Ketones Urine Occult Blood Urine Nitrate Urine Bilirubin Urine Urobilinogen Ur Leukocyte Esterase Urine RBC Urine WBC Ur Squamous Epith Cells Urine Bacteria Ur Culture Indicated? Nasal Screen MRSA (PCR) 01/23/19 01/23/19 01/23/19 22:28 23:54 23:58 WBC RBC Hgb Hct MCV MCH MCHC RDW Plt Count Neut % (Auto) Lymph % (Auto) Barber % (Auto) Eos % (Auto) Baso % (Auto) Neut # (Auto) Lymph # (Auto) Barber # (Auto) Eos # (Auto) Baso # (Auto) PT 12.2 INR 1.1 APTT 30 D D-Dimer Sodium Potassium Chloride Carbon Dioxide BUN Creatinine Estimated GFR BUN/Creatinine Ratio Glucose Calcium Magnesium Total Bilirubin AST ALT Alkaline Phosphatase Total Creatine Kinase CK-MB (CK-2) CK-MB (CK-2) Rel Index Troponin I < 0.012 Total Protein Albumin Globulin Albumin/Globulin Ratio Triglycerides Cholesterol LDL Cholesterol, Calc HDL Cholesterol Urine Color Yellow Urine Appearance Clear Urine pH 6.5 Ur Specific Epping 1.010 Urine Protein Negative Urine Glucose (UA) Negative Urine Ketones Negative Urine Occult Blood Trace-intact Urine Nitrate Negative Urine Bilirubin Negative Urine Urobilinogen 0.2 Ur Leukocyte Esterase Negative Urine RBC 0-1/hpf Urine WBC None seen Ur Squamous Epith Cells 0-1 /hpf Urine Bacteria None seen Ur Culture Indicated? Cult not indicated Nasal Screen MRSA (PCR) 01/23/19 01/24/19 01/24/19 23:59 02:10 06:34 WBC RBC Hgb Hct MCV MCH MCHC RDW Plt Count Neut % (Auto) Lymph % (Auto) Barber % (Auto) Eos % (Auto) Baso % (Auto) Neut # (Auto) Lymph # (Auto) Barber # (Auto) Eos # (Auto) Baso # (Auto) PT INR APTT D-Dimer 365 H Sodium Potassium Chloride Carbon Dioxide BUN Creatinine Estimated GFR BUN/Creatinine Ratio Glucose Calcium Magnesium 2.0 Total Bilirubin AST ALT Alkaline Phosphatase Total Creatine Kinase CK-MB (CK-2) CK-MB (CK-2) Rel Index Troponin I < 0.012 Total Protein Albumin Globulin Albumin/Globulin Ratio Triglycerides 98 Cholesterol 148 LDL Cholesterol, Calc 75 HDL Cholesterol 53 Urine Color Urine Appearance Urine pH Ur Specific [place]pping Urine Protein Urine Glucose (UA) Urine Ketones Urine Occult Blood Urine Nitrate Urine Bilirubin Urine Urobilinogen Ur Leukocyte Esterase Urine RBC Urine WBC Ur Squamous Epith Cells Urine Bacteria Ur Culture Indicated? Nasal Screen MRSA (PCR) Negative for mrsa 01/24/19 01/24/19 06:34 13:30 WBC RBC Hgb Hct MCV MCH MCHC RDW Plt Count Neut % (Auto) Lymph % (Auto) Barber % (Auto) Eos % (Auto) Baso % (Auto) Neut # (Auto) Lymph # (Auto) Barber # (Auto) Eos # (Auto) Baso # (Auto) PT 12.7 INR 1.1 APTT 84 H* D 107 H* D D-Dimer Sodium Potassium Chloride Carbon Dioxide BUN Creatinine Estimated GFR BUN/Creatinine Ratio Glucose Calcium Magnesium Total Bilirubin AST ALT Alkaline Phosphatase Total Creatine Kinase CK-MB (CK-2) CK-MB (CK-2) Rel Index Troponin I Total Protein Albumin Globulin Albumin/Globulin Ratio Triglycerides Cholesterol LDL Cholesterol, Calc HDL Cholesterol Urine Color Urine Appearance Urine pH Ur Specific [place] Urine Protein Urine Glucose (UA) Urine Ketones Urine Occult Blood Urine Nitrate Urine Bilirubin Urine Urobilinogen Ur Leukocyte Esterase Urine RBC Urine WBC Ur Squamous Epith Cells Urine Bacteria Ur Culture Indicated? Nasal Screen MRSA (PCR) Assessment & Plan Assessment & Plan narrative: This is an 83-year-old female patient presents to the ER with chest pain radiating to the left arm neck and back that was unrelieved with nitro. She has had prior episodes and chest pain is provoked by activity. She is admitted to the hospital following cardiology consult for new left-sided chest pain concerning for angina. 1. Angina, present on admission, active -history of CAD, NSTEMI in September 2018, stents x4. Patient developed chest pain post cardiac rehab today unrelieved with nitro. -patient with chest pain as above treated resolved in the ER and nitropaste was applied. Recurrent chest pain with left arm, back and neck pain resolved with 1 nitro. -PICC line is inserted, patient transferred to ICU, troponins have been negative at less than 0.012. Stat EKG is unchanged. -heparin infusion per cardiac protocol. An for possible DVT, however given negative troponins and no DVT it is unnecessary to continue heparin infusion at this time. There further no EKG changes throughout her hospital stay. -echocardiogram was unchanged compared to prior in November of 2018. -Dr. Pearson consulted by ER physician, the patient is followed at [facility] but they have no beds. Patient is stable at this time. He recommended continued diuresis at this time and if chest pain continues she may need a left heart catheterization and to call back tomorrow. 2. Acute left calf pain, possible DVT, present on admission, active -identified left calf tenderness with positive Selvin on exam, patient previously on aspirin and Plavix. Also complains of tenderness anterior left ankle. -D-dimer negative by age. -ultrasound negative for DVT. 3. Decompensated Heart failure with preserved ejection fraction-patient has evidence of fluid overload on exam with lower extremity edema and bibasilar crackles. In clinically with worsening fatigue, recent admission for heart failure exacerbation her symptoms may be consistent with decompensated heart failure. -will attempt diuresis today to see if improvement in symptoms with Lasix 40 mg IV b.i.d. 4. Essential Hypertension, chronic, present on admission, active. -blood pressure of 178/60 upon admission to the emergency department improved to 140 systolic. Improved today. -will modify antihypertensive therapy, will continue losartan 100 mg daily, metoprolol 12.5 mg twice daily, amlodipine on hold and lasix as noted above. 5. Hyperlipidemia, chronic, presumed stable. -will continue patient's home regimen of rosuvastatin 40 mg daily at bedtime. The the patient does not require ICU level of care, will be downgraded to the regular floor.
[2019-01-24] MEDS: ROSUVASTATIN 10 MG TABLET 40 MG PO (16:53)
[2019-01-24] MEDS: LOSARTAN 50 MG TABLET 100 MG PO (16:53)
--- NOTE | 2019-01-24 20:24 | PC.NURSE ---
2015- Patient reports that she has chest pressure and a little pain when she gets up to use the bedside commode. Patient says the discomfort goes away almost immediately upon return to bed. Patient advised to put her call light on if when she returns to bed the discomfort does not go away.
[2019-01-24] MEDS: LORazepam 0.5 MG TABLET 0.25 MG PO (23:36)
[2019-01-25] VITALS (7 sets, daily range): BP systolic 119–143; BP diastolic 44–61; PULSE 62–68; RESP 13–20; TEMP 36.3–36.8; O2SAT 96–98
[2019-01-25] MEDS: METOPROLOL IR 25 MG TABLET 12.5 MG PO (08:21)
[2019-01-25] MEDS: ASPIRIN EC 81 MG TABLET PO (08:21)
--- NOTE | 2019-01-25 09:16 | PC.NURSE ---
Am Shift Pt is sitting up in bed, denies CP when prompted, Pt reports mild pressure with activity, that immediately resolves with rest. At times, extends to a heavy feeling to her L arm. Adamantly denies this as chest Pain, discussed presentation of symptoms, resolving with rest, only with activity, and Pt verbalizes understanding of reporting symptoms honestly and freely with staff. Update to Dr Pillai,
--- NOTE | 2019-01-25 10:44 | CM.DANOTE ---
Discharge Planning/Care Management DCP: assessment: case received yesterday, EMR reviewed. Discussed in Team Rounds. Met this morning with pt and her daughter Beronica Lam: [place]: [phone]. Discussed PLF/see template below for details. Pt and Beronica both state pt with lots of family support. Beronica lives 2 blocks from pt's home and will be taking her home when she is stable for d/c. Payer: Medicare and [employer]. Admission status: INPT: confirmed by [facility] RN team PCP: Zoe Bass Discussed case then in Team Rounds. Dr. Pillai stated she will be conferring with cardiology and proceed accordingly. P: at this point: home when stable. Advanced directive, confirm from FAMILY Start: 01/23/19 22:09 Freq: Q24H Status: Active Protocol: Document 01/23/19 22:10 AKP (Rec: 01/23/19 22:10 AK [id number]) Advance Directive, confirm on record Time 22:10 Person contacted Daughter Copy received No CM Discharge Assessment Start: 01/25/19 10:20 Freq: Status: Active Protocol: Document 01/25/19 10:23 ITV (Rec: 01/25/19 10:44 ITV [id number]) Discharge Planning Assessment Advance Directives? Yes History Provided By Patient,Family Member,Medical Record Prior Living Arrangements Mobile home Household Members children Comment son Yuri lives with pt. Type of transporation used prior to Relies on Others admit Independent with ADL's Yes Is patient alert and oriented? Yes Needs Assistance With Home Chores / Shopping Caregiver for Another No Whiteboard Updated in Patient Room with Yes name and ext. # of Vp Account Director Review Status In Process
[2019-01-25 13:13] LABS: Albumin 4.1 g/dL (3.5-5.0); Albumin Globulin Ratio 1.3 (1.0-2.8); Alkaline Phosphatase 53 U/L (38-126); Aspartate Aminotransferase 21 IU/L (14-36); Bilirubin Total 0.5 mg/dL (0.2-1.3); Blood Urea Nitrogen 20 mg/dL (7-17); Calcium 9.5 mg/dL (8.4-10.2); Carbon Dioxide 30 mmol/L (22-32); Chloride 99 mmol/L (98-107); Estimated Glomerular Filt Rate 53.2 mL/min (>60); Globulin 3.1 g/dL (1.7-4.1); Glucose 130 mg/dL (80-110); HEMOLYSIS < 15 (0-50); Magnesium 1.9 mg/dL (1.6-2.3); Potassium 3.6 mmol/L (3.4-5.1); Sodium 139 mmol/L (137-145); Total Protein 7.2 g/dL (6.3-8.2)
[2019-01-25 13:14] LABS: Alanine Aminotransferase < 6 IU/L (9-52)
[2019-01-25] MEDS: LORazepam 0.5 MG TABLET 0.25 MG PO ×2 (13:22→16:38)
[2019-01-25] MEDS: FAMOTIDINE 20 MG/50 ML PIGGYBACK 200 MG IV (13:22)
[2019-01-25] MEDS: CLOPIDOGREL 75 MG TABLET PO (13:23)
[2019-01-25] MEDS: NITROGLYCERIN OINT 1 INCH/GM OINT...G. TOP (14:55)
[2019-01-25] MEDS: predniSONE 20 MG TABLET 40 MG PO (15:05)
--- NOTE | 2019-01-25 15:26 | PM.DS.1 ---
History of Present Illness History of Present Illness Date Patient Seen: 01/25/19 Chief complaint: chest pain Narrative: Written by Krunal URIBE: Ms. Lida Townsend is an 83-year-old female patient with a history significant for coronary artery disease, NSTEMI with stent placement, hyperlipidemia hypertension recent bronchitis and cardiac arrest 40 years ago who presents to the ER today with recurrent chest pain. Patient states she had chest pain 1-2 weeks ago stat that was associated with activity for which she rested took 1 nitro with resolution of pain. Today she states she was at cardiac rehabilitation during which time it was noted her blood pressure dropped to 90 systolic and she had increased shortness of breath and fatigue. On cardiac monitoring she had sinus rhythm with what appeared to be PACs Following cardiac rehab she had an onset of chest pain at 3:00 p.m., got on the senior transport and took 3 nitro without resolution of pain. She describes the pain as substernal with radiation to the neck back and left upper arm. She had associated shortness of breath though she has had shortness of breath for the last several days and has had a continued occasional dry nonproductive cough since being treated for bronchitis 2 weeks ago. She denies pleuritic chest pain or neuropathy. She has had no nausea vomiting. Since recovering from bronchitis 2 weeks ago she has had no recent fevers or chills nasal congestion or sore throat. She did have headache from the nitro. She has persistent occasional dry cough. She denies abdominal pain diarrhea constipation and has no urinary symptoms. Arrival in the ER the patient was afebrile with a temperature of 97.7?, heart rate of 77, blood pressure of 178/60 that improved to 130 4/48. She had respirations of 14 and 100% saturation on room air. EKG obtained in the ER shows sinus rhythm with ventricular rate of 82 with an incomplete right bundle branch block. She does present with apical Q-wave and inverted T-waves in lead 3, V1, V2 unchanged from prior EKG on 01/06/2019. Chest x-ray reveals chronic interstitial prominence but no acute changes. On laboratory analysis she has a white count of 9.3, hemoglobin of 14.2, hematocrit of 42.1 platelets of 201. Her electrolytes are within normal range and has a BUN of 18 and creatinine 0.8. LFTs are unremarkable. Her nonfasting glucose is 97. Her total CK was 51 and she has had 2 troponins all remaining in the ER that were both negative at less than 0.012. The ER physician spoke with Dr. Pearson, cardiology regarding the patient who recommended admission, trending troponins and nonstress test. The patient does not have vascular access and PICC line has been ordered. Patient had 0.5 in of nitropaste applied topical anterior chest. The patient is admitted to the acute floor with stable angina. When the patient arrived on the floor she was ambulated to the bathroom and again developed substernal chest pain radiating to the left arm neck and back, consistent with her prior chest pain presentation. Repeat EKGs obtained still with no significant change from prior tracings, no change in block ST or T-wave changes. Was also identifies the patient has left lower extremity pain with positive home. The patient is transferred to ICU with unstable angina, initiation of heparin and anticipation of nitroglycerin infusion. Discharge Providers Provider Date of admission: 01/23/19 20:22 Discharge Date: 01/25/19 Primary care physician: Zoe Bass PA-C Consults: 01/23/19 19:12 Consult to PICC Line RN Stat Comment: 01/23/19 21:01 Consult to Discharge Planning Routine Comment: Discharge provider: Shellie Pillai DO Summary Hospital Course Hospital Course: Lida Townsend is an 83-year-old female patient with a past medical history significant for coronary artery disease status post NSTEMI with stenting x 4, hypertension, hyperlipidemia, recent bronchitis, and remote history of cardiac arrest secondary to contrast allergy who presented to the ED with substernal chest pressure radiating to left neck and arm after cardiac rehabilitation. 1. Acute chest pain, present on admission. Active. -History of CAD status post NSTEMI with stenting x 4 in September 2018. Patient developed substernal chest pain/pressure radiating to left neck and arm after cardiac rehab that was unrelieved with nitroglycerin on day of admission. Chest pain resolved with nitropaste in ED. Recurrent chest pain with left arm, back and neck pain resolved with 1 nitro. -Serial troponin negative and < 0.012. EKG is unchanged and without acute ischemic changes. -Heparin gtt initiated per cardiac protocol but given negative troponins and no DVT discontinued. There further no EKG changes throughout her hospital stay. -Echocardiogram demonstrated stage II diastolic dysfunction unchanged compared to prior in November of 2018. -Continued cardiac medications including aspirin 81 mg daily, clopidogrel 75 mg daily, losartan 100 mg daily, metoprolol 12.5 mg twice daily, and rosuvastatin 40 mg daily at bedtime. Held amlodipine. Diuresed as below. -Continued nitropaste 0.5 inches daily. -Dr. Pearson consulted by ED physician as the patient is followed Dr. Ellington at [facility] cardiology. He recommended continued diuresis and if chest pain continues will need a left heart catheterization. Patient continues to have intermittent mild substernal chest pressure at rest radiating to left jaw, left arm, and back, therefore, transferred to [facility] for higher level of care and left heart catheterization. -Of note, the patient has history of cardiac arrest secondary to contrast allergy, therefore, started premedication for left heart catheterization with prednisone 40 mg every 8 hours and when closer to left heart catheterization would add Benadryl per her stogy roller Dr. Ellington. 2. Acute left lower extremity DVT ruled out. -Patient with left calf tenderness and positive Selvin on exam. -D-dimer negative by age. -Venous Doppler ultrasound negative for DVT. 3. Acute exacerbation of diastolic congestive heart failure stage II, present on admission. Resolving. -Patient presented with worsening shortness of breath and fatigue with evidence of fluid overload on exam with lower extremity edema and bibasilar crackles. -Cardiology recommended gentle diuresis to assess whether this would relieve the patient's chest pressure and if not then recommended transfer to [facility] for left heart cardiac catheterization. Previous provider ordered furosemide 40 mg IV twice daily in which she received 2 doses and this was discontinued as this was quite aggressive diuresis. Patient with persistent chest pressure, therefore, transferred to [facility] for left heart catheterization as above. -Continue strict I&O and daily weights. Net -2 L. -Continued to monitor electrolytes and renal function closely and replete as necessary. 4. Hypertension, chronic, present on admission. Stable. -Blood pressure of 178/60 upon admission to the emergency department improved to 140 systolic. -Continued losartan 100 mg daily, metoprolol 12.5 mg twice daily. Held amlodipine. Continued furosemide as noted above. 5. Hyperlipidemia, chronic, present on admission. Presumed stable. -Continued home rosuvastatin 40 mg daily at bedtime. Exam Vital Signs (past 8 hours): - 01/25/19 07:49 01/25/19 08:50 01/25/19 08:51 Temperature 97.4 F L Pulse Rate 62 Respiratory Rate 15 Blood Pressure 119/44 L Pulse Oximetry 98 98 96 01/25/19 12:00 01/25/19 14:55 Temperature 98.2 F Pulse Rate 68 Respiratory Rate 20 Blood Pressure 136/57 L 124/61 Pulse Oximetry 96 Oxygen Delivery Method Room Air Oxygen Flow Rate 2 Narrative Exam Narrative: General: Older female sitting in bed and in no acute distress, well-developed, well-nourished, appropriately interactive. HEENT: Normocephalic, atraumatic. External ears without defect. Pupils equal, round, and reactive to light. Anicteric sclerae, moist conjunctivae, and no lid lag. Oropharynx free of erythema and cobble stoning with moist mucosa. Neck: Supple with full range of motion. No jugular venous distension. No bruits. No lymphadenopathy or thyromegaly. Cardiovascular: Regular rate and rhythm without murmurs, rubs, or gallops appreciated. Pulmonary: Clear to auscultation bilaterally with fine bibasilar crackles. No wheezes or rhonchi. Normal respiratory effort with no use of accessory muscles. Abdomen: Soft, bowel sounds present, nontender, nondistended. No hepatosplenomegaly or masses appreciated. Extremities: No clubbing or cyanosis. Mild bipedal edema. Skin: Normal temperature, turgor, and texture; no rash, ulcers, or subcutaneous nodules appreciated. Neurological: Cranial nerves grossly intact. Psychiatric: Normal mood and affect. Alert and oriented to person, place, and time. Objective Labs Result Diagrams: 01/23/19 17:33 01/25/19 12:41 Labs: Laboratory Results - last 24 hr 01/25/19 12:41 Sodium 139 Potassium 3.6 Chloride 99 Carbon Dioxide 30 BUN 20 H Creatinine 1.00 Estimated GFR 53.2 L BUN/Creatinine Ratio 20.0 Glucose 130 H Calcium 9.5 Magnesium 1.9 Total Bilirubin 0.5 AST 21 ALT < 6 L Alkaline Phosphatase 53 Total Protein 7.2 Albumin 4.1 Globulin 3.1 Albumin/Globulin Ratio 1.3 Discharge Plan Discharge Plan Patient Disposition: [facility] Transfer to: [facility] Under care of provider: Dr. Tello, hospitalist and Dr. Pearson, cardiology Discharge Med Rec/Prescriptions Prescriptions: New prednisone 20 mg Tablet 40 mg PO Q8H Qty: 1 RF: 0 Continued aspirin 81 MG tablet,delayed release (DR/EC) 81 mg PO DAILY Qty: 0 RF: 0 clopidogrel 75 mg tablet 75 mg PO DAILY RF: 0 nitroglycerin 0.4 mg tablet, sublingual 1 tab sublingual [id number] PRN (Reason: Chest Pain) RF: 0 rosuvastatin 40 mg tablet 40 mg PO QPM RF: 0 cyanocobalamin (vitamin B-12) 2,000 mcg Tablet 2,000 mcg PO DAILY RF: 0 ergocalciferol (vitamin D2) 2,500 unit Capsule 2,500 unit PO DAILY RF: 0 potassium chloride 10 mEq capsule, extended release 10 meq PO DAILY RF: 0 ketoconazole 2 % shampoo 1 applic TOPICAL DIRECTED RF: 0 amlodipine 5 mg tablet 5 mg PO BID RF: 0 desonide 0.05 % lotion 1 applic TOPICAL DIRECTED RF: 0 furosemide 20 mg tablet 20 mg PO DAILY RF: 0 albuterol sulfate 90 mcg/actuation HFA aerosol inhaler 1 - 2 puff INHALATION Q4H PRN (Reason: cough or wheeze) RF: 0 losartan 100 mg tablet 100 mg PO QPM RF: 0 metoprolol tartrate 25 mg tablet 12.5 mg PO BID RF: 0 Follow up/Referrals: Zoe Bass PA-C [Primary Care Provider] - Provider Discharge Instructions Diet: Low-fat, Low-sodium and Low-cholesterol Activity: Activity as tolerated Discharge Data Primary Care Provider: Zoe Bass
[2019-01-25] MEDS: LOSARTAN 50 MG TABLET 100 MG PO (16:39)
[2019-01-25] MEDS: ROSUVASTATIN 10 MG TABLET 40 MG PO (16:41)
--- NOTE | 2019-01-25 16:59 | PC.NURSE ---
2005- Report called to Dorian FREDERICK at [facility]. Plan for transport via BLS at 6pm ETA. Patient medicated with additional .25mg Ativan po for anxiety per order. Will monitor.
== END 2019-01-25 18:02 | disposition short-term general hospital (02) | DRG 311 ==
LOC: ED 20:18 → ICU 01-24 08:03 → AC 01-24 13:22 → ICU 01-24 13:22
PROVIDERS: Emergency Medicine; Internal Medicine; Admitting Provider Nurse Practitioner Adult Health; Emergency Provider Emergency Medicine; Family Provider Internal Medicine; PCP Physician Assistant Medical; Visit Provider Nurse Practitioner Adult Health
DX: I20.0 Unstable angina (principal); I50.33 Acute on chronic diastolic (congestive) heart failure; M79.662 Pain in left lower leg; I11.0 Hypertensive heart disease with heart failure; I25.10 Atherosclerotic heart disease of native coronary artery without angina pectoris; E78.5 Hyperlipidemia, unspecified
CPT/HCPCS: 36415; 36569; 36592; 71045; 78452; 80048; 80053; 80061; 81001; 82550; 83735; 84484; 85025; 85379; 85610; 85730; 87797; 93005; 93010; 93016; 93017; 93018; 93041; 93306; 93971; 94760; 94762; 99284; A9502; J1642; J1644; J1940

== ENCOUNTER 2019-02-22 12:51 | Emergency (ER) | payer MEDICARE, OTHER, SELFPAY ==
[2019-01-23 21:49] VITALS: BMI 33.3
[2019-02-22 13:05] VITALS: BP 159/85; PULSE 90; RESP 18; TEMP 36.4; O2SAT 93; BMI 33.7
--- NOTE | 2019-02-22 13:37 | ED_ITS ---
HPI - Extremity Problem General Chief complaint: Extremity Problem,Nontraumatic Stated complaint: left leg pain deep inside calf,right arm also hurt Time Seen by Provider: 02/22/19 13:37 Source: patient and family Mode of arrival: Wheelchair Limitations: no limitations History of Present Illness HPI Narrative: 83-year-old female nonsmoker with history of hypertension, hyperlipidemia and coronary artery disease presents with family and a chief complaint of worsening shortness of breath over the past few days but primary complaint is deep pain and swelling to bilateral lower extremities as well as right upper extremity. She states that she can't even see the superficial veins in her right arm which is not normal for her. She was seen in September and had an NSTEMI and in followup received heart catheterization and 4 stents. She had a followup stent about 1 month ago and all stents were patent the 1 apparently had shifted slightly. She denies dizziness or lightheadedness, fever, chills or cough. She just states on the whole she feels MD Complaint: extremity pain and extremity swelling Related Data Home Medications Medication Instructions Recorded Confirmed aspirin 81 mg PO DAILY #0 05/14/17 01/23/19 clopidogrel 75 mg PO DAILY 11/18/18 02/22/19 cyanocobalamin (vitamin B-12) 2,000 mcg PO DAILY 11/18/18 01/23/19 ergocalciferol (vitamin D2) 2,500 unit PO DAILY 11/18/18 01/23/19 nitroglycerin 1 tab SUBLINGUAL [id number] PRN 11/18/18 02/22/19 rosuvastatin 40 mg PO QPM 11/18/18 02/22/19 albuterol sulfate 1 - 2 puff INHALATION Q4H PRN 01/23/19 01/23/19 amlodipine 5 mg PO BID 01/23/19 01/23/19 desonide 1 applic TOPICAL DIRECTED 01/23/19 01/23/19 furosemide 20 mg PO DAILY 01/23/19 02/22/19 ketoconazole 1 applic TOPICAL DIRECTED 01/23/19 01/23/19 losartan 100 mg PO QPM 01/23/19 02/22/19 metoprolol tartrate 12.5 mg PO BID 01/23/19 02/22/19 potassium chloride 10 meq PO DAILY 01/23/19 02/22/19 amlodipine 2.5 mg PO DAILY 02/22/19 02/22/19 isosorbide mononitrate 60 mg PO DAILY 02/22/19 02/22/19 Previous Rx's Medication Instructions Recorded prednisone 40 mg PO Q8H #1 tab 01/25/19 apixaban [Eliquis] 5 mg PO BID #60 tab 02/22/19 Allergies Allergy/AdvReac Type Severity Reaction Status Date / Time erythromycin base Allergy Severe Rash Verified 01/23/19 17:02 [ERYTHROMYCIN BASE] ibuprofen [IBUPROFEN] Allergy Severe Rash Verified 01/23/19 17:02 Iodinated Contrast Media Allergy Severe Unconscious Verified 02/22/19 13:10 [IODINATED CONTRAST- ORAL AND IV DYE] morphine [MORPHINE] Allergy Severe Rash Verified 01/23/19 17:02 naproxen [From ALEVE] Allergy Severe Rash Verified 01/23/19 17:02 telmisartan [TELMISARTAN] Allergy Severe Rash Verified 01/23/19 17:02 Review of Systems Constitutional Constitutional: Denies chills, Denies fatigue, Denies fever(s), Denies frequent falls, Denies lethargy and Denies weakness Eyes Eyes: Denies change in vision, Denies eye discharge, Denies irritation and Denies loss of vision ENT Ears, Nose, Mouth, and Throat: Denies change in voice, Denies dizziness, Denies neck pain, Denies sore throat and Denies throat swelling Cardiovascular Cardiovascular: Denies chest pain, Denies irregular heart rhythm, Reports leg edema, Denies lightheadedness, Denies palpitations, Denies dyspnea, Denies dyspnea on exertion and Denies orthopnea Comments: RUE edema Respiratory Respiratory: Denies cough, Denies dyspnea, Denies dyspnea on exertion and Denies wheezing Gastrointestinal Gastrointestinal: Denies abdominal pain, Denies change in bowel habits, Denies diarrhea, Denies nausea and Denies vomiting Genitourinary Genitourinary: Denies hematuria, Denies flank pain, Denies urinary incontinence and Denies urinary urgency Musculoskeletal Musculoskeletal: Denies back pain, Denies muscle weakness, Denies neck pain, Denies numbness and Denies tingling Integumentary/Breasts Skin/Breast: Denies pruritus, Denies erythema, Denies rash and Denies wounds Neurologic Neurologic: Denies behavioral changes, Denies confusion, Denies dizziness, Denies frequent falls, Denies loss of vision, Denies numbness, Denies tingling and Denies weakness Psychiatric Psychiatric: Denies anxiety, Denies behavioral changes, Denies confusion, Denies depression, Denies homicidal ideation and Denies suicidal ideation Endocrine Endocrine: Denies fatigue, Denies flushing and Denies palpitations Hematologic/Lymphatic Hematologic/Lymphatic: Denies easy bruising Allergic/Immunologic Allergic/Immunologic: Denies urticaria, Denies throat swelling and Denies wheezing Patient History Medical History Medical History (Updated 02/22/19 @ 17:55 by Ankur Nunez DO) Cardiac arrest (Acute) Chest pain (Inactive) Coronary artery disease (Acute) Hyperlipidemia (Acute) Hypertension (Acute) Left hamstring muscle strain (Inactive) UTI (urinary tract infection) (Inactive) Surgical History Surgical History (Updated 01/23/19 @ 23:11 by JOJO Crocker) History of appendectomy (Acute) History of breast implant removal (Acute) History of breast surgery (Acute) History of cholecystectomy (Acute) History of coronary artery stent placement (Acute) History of total abdominal hysterectomy (Acute) Social History household members: children Smoking Status: Never smoker Social History Social History household members: children Smoking Status: Never smoker alcohol intake frequency: holidays/special occasions only Substance Use Type: does not use Exam Narrative Exam Narrative: GENERAL: [83] year old patient appears stated age. Well- nourished, well-developed patient, in mild distress. HEAD: Atraumatic. Normocephalic. EYES: Pupils equal round and reactive. Extraocular motions intact. No scleral icterus. No injection or drainage. ENT: Nose without bleeding, purulent drainage. Throat without erythema, tonsillar hypertrophy or exudate. Airway patent. NECK: Trachea midline. Non tender CARDIOVASCULAR: Regular rate and rhythm without murmurs, gallops, or rubs. RESPIRATORY: Clear to auscultation. Breath sounds equal bilaterally. No wheezes, rales, or rhonchi. GASTROINTESTINAL: Abdomen soft, non-tender, nondistended. EXTREMITIES: Right upper extremity edema with newly visible superficial venous system, no warmth or redness. Bilateral lower extremity swelling and generalized tenderness BACK: Nontender without deformity or crepitance. No flank tenderness. NEURO: AOx3. SKIN: No rash or erythema of visible areas Initial Vital Signs Initial Vital Signs: Vital Signs Temperature 97.5 F L 02/22/19 13:05 Pulse Rate 90 02/22/19 13:05 Respiratory Rate 18 02/22/19 13:05 Blood Pressure 159/85 H 02/22/19 13:05 Pulse Oximetry 93 02/22/19 13:05 Course Orders Ordered: ED Orders 02/22/19 13:36 XR chest 1V Stat EKG-12 Lead Stat 02/22/19 13:39 US periph venous low extrem bi Stat US periph venous up extrem rt Stat 02/22/19 14:00 BNP [B Type Natriuretic Peptide] Stat Complete Blood Count AUTO DIFF Stat 02/22/19 14:10 Comprehensive Metabolic Panel Stat Lipase Stat Partial Thromboplastin Time Stat Prothrombin Time INR Stat Troponin & CK Cardiac Panel Stat Discontinued Medications Acetaminophen (Tylenol) 650 mg PO NOW ONE Stop: 02/22/19 18:04 Last Admin: 02/22/19 18:07 Dose: 650 mg Documented by: CARLOS Apixaban (Eliquis) 5 mg PO NOW ONE Stop: 02/22/19 17:50 Last Admin: 02/22/19 18:12 Dose: 5 mg Documented by: CARLOS Consultations Consultation #1: Discussion with patient's own die forger, Dr. Ellington whom recommend stopping aspirin, continuing Plavix and initiating Eliquis Vital Signs Vital signs: Vital Signs - 8 hr 02/22/19 13:05 02/22/19 13:41 02/22/19 15:00 Temperature 97.5 F L Pulse Rate 90 85 85 Respiratory Rate 18 22 25 H Blood Pressure 159/85 H Blood Pressure [Left Arm] 185/59 H 179/62 H Pulse Oximetry 93 98 96 02/22/19 17:48 02/22/19 18:00 Temperature Pulse Rate 84 85 Respiratory Rate 20 18 Blood Pressure Blood Pressure [Left Arm] 169/64 H 176/61 H Pulse Oximetry 95 96 MDM - Extremity (Nontraumatic) Lab Data Result diagrams: 02/22/19 14:00 02/22/19 14:10 Labs: Lab Results 02/22/19 02/22/19 02/22/19 Range/Units 14:00 14:10 14:10 WBC 7.2 (4.5-11.0) X10^3/uL RBC 4.93 (4.0-5.2) X10^6/uL Hgb 14.2 (12.0-16.0) g/dL Hct 42.3 (36-46) % MCV 85.8 (80-100) fL MCH 28.8 (26-34) PG MCHC 33.6 (30-36) % RDW 16.5 H (11.6-14.8) % Plt Count 231 (150-400) X10^3/uL Neut % (Auto) 52.3 (50-75) % Lymph % (Auto) 34.5 (25-40) % [place] % (Auto) 10.0 (3-14) % Eos % (Auto) 2.8 (2-4) % Baso % (Auto) 0.4 (0-2) % Neut # (Auto) 3700 (3015-6222) /uL Lymph # (Auto) 2500 (9154-6178) /uL [place] # (Auto) 700 (0-900) /uL Eos # (Auto) 200 (0-450) /uL Baso # (Auto) 0 (0-100) /uL PT 11.4 (10.1-12.7) SECONDS INR 1.0 (0.9-1.3) APTT 30 D (26.4-36.2) SECONDS Sodium 141 (137-145) mmol/L Potassium 3.7 (3.4-5.1) mmol/L Chloride 103 (98-107) mmol/L Carbon Dioxide 28 (22-32) mmol/L BUN 18 H (7-17) mg/dL Creatinine 0.90 (0.52-1.04) mg/dL Estimated GFR > 60.0 (>60) mL/min BUN/Creatinine Ratio 20.0 (6-22) Glucose 95 (80-110) mg/dL Calcium 9.5 (8.4-10.2) mg/dL Total Bilirubin 0.5 (0.2-1.3) mg/dL AST 26 (14-36) IU/L ALT 9 (9-52) IU/L Alkaline Phosphatase 52 (38-126) U/L Total Creatine Kinase 55 (30-135) U/L CK-MB (CK-2) TNP CK-MB (CK-2) Rel Index TNP Troponin I < 0.012 (0.01-0.034) ng/mL B-Natriuretic Peptide < 100 (<100) Total Protein 7.7 (6.3-8.2) g/dL Albumin 4.5 (3.5-5.0) g/dL Globulin 3.2 (1.7-4.1) g/dL Albumin/Globulin Ratio 1.4 (1.0-2.8) Lipase 109 (23-300) U/L Imaging Data Chest x-ray: Radiologist's impression: INDICATIONS: chest pain TECHNIQUE: One view of the chest was acquired. COMPARISON: [facility], CR, XR CHEST 1V, 01/23/2019, 17:48. [facility], CR, XR CHEST 1V, 01/06/2019, 10:07. FINDINGS: Surgical changes and devices: None. Lungs and pleura: Lungs are stable over time with a mild interstitial p rominence perhaps reflecting prior smoking history. No pleural effusions or pneumothorax. Mediastinum: Mediastinal contours appear normal. Heart size is normal. Bones and chest wall: No suspicious bony lesions. Overlying soft tissues appear unremarkable. IMPRESSION: Suspect prior smoking history, no pneumonia found, a definite source of chest pain is not seen. Dictated by: Lino Ruiz M.D. on 02/22/2019 at 14:05 Approved by: Lino Ruiz M.D. on 02/22/2019 at 14:06 Venous US: Radiologist's impression: [place] [address] Ultrasound Report Signed Patient: Lida Townsend TMR#: [id number] : 1936Acct:[id number] Age/Sex: 83 / FDate of Service: 02/22/19 Loc: ED Accession Number: [id number] Procedure: US periph venous low extrem bi Ordering Provider: Ankur Nunez D.O. PROCEDURE: US PERIPH VENOUS LOW EXTREM BI INDICATIONS: CALF PAIN TECHNIQUE: Real-time imaging, as well as color and pulse Doppler interrogation, were performed of the deep veins of both legs from the inguinal ligament to the popliteal fossa. COMPARISON: [facility], US, US PERIPH VENOUS LOW EXTREM BI, 09/20/2018, 9:36. FINDINGS: Right: The common femoral, femoral and popliteal veins are normally compressible, and free of intraluminal thrombus. Color and pulse Doppler demonstrate normal phasic intravascular flow. There is normal augmentation response to distal compression maneuver. Left: The common femoral, femoral and popliteal veins are normally compressible, and free of intraluminal thrombus. Color and pulse Doppler demonstrate normal phasic intravascular flow. There is normal augmentation response to distal compression maneuver. IMPRESSION: No DVT found. Dictated by: Lino Ruiz M.D. on 02/22/2019 at 16:08 Approved by: Lino Ruiz M.D. on 02/22/2019 at 16:08 [place] [address] Ultrasound Report Signed Patient: Lida Townsend TMR#: [id number] : 8Acct:[id number] Age/Sex: 83 / FDate of Service: 02/22/19 Loc: ED Accession Number: [id number] Procedure: US periph venous up extrem rt Ordering Provider: Ankur Nunez D.O. PROCEDURE: US PERIPH VENOUS UP EXTREM RT INDICATIONS: RIGHT ARM PAIN TECHNIQUE: Real-time imaging, as well as color and pulse Doppler interrogation, was performed of the right upper extremity deep veins from the inferior neck to the antecubital fossa. COMPARISON: None. FINDINGS: Thrombosis is seen within the mid subclavian vein tracking into the axillary vein and into the brachial vein at the right upper extremity. IMPRESSION: Right upper extremity DVT as discussed. Dictated by: Lino Ruiz M.D. on 02/22/2019 at 15:54 Approved by: Lino Ruiz M.D. on 02/22/2019 at 16:08 Discharge Plan Departure Patient Disposition: Home Clinical Impression: Acute deep vein thrombosis (DVT) of axillary vein of right upper extremity Discharge Date/Time: 02/22/19 18:31 Instructions: DI for Deep Vein Thrombosis Activity Restrictions/Additional Instructions: *You have been diagnosed with [right upper extremity DVT] *What to do: *Take medications as directed: STOP aspirin. START new prescription for Eliquis. CONTINUE Plavix *Follow up with your primary care provider in 2-3 days, call for an appointment. Let them know you were seen in the Emergency Department and that we ask that you be seen in follow up *Return to ER if you should have any new, worsening or concerning symptoms, such as [increasing pain, redness or swelling, chest pain or shortness of breath, fever or shaking chills.] Prescriptions: New Eliquis 5 mg tablet 5 mg PO BID Qty: 60 RF: 0 No Action aspirin 81 MG tablet,delayed release (DR/EC) 81 mg PO DAILY Qty: 0 RF: 0 clopidogrel 75 mg tablet 75 mg PO DAILY RF: 0 nitroglycerin 0.4 mg tablet, sublingual 1 tab sublingual [id number] PRN (Reason: Chest Pain) RF: 0 rosuvastatin 40 mg tablet 40 mg PO QPM RF: 0 cyanocobalamin (vitamin B-12) 2,000 mcg Tablet 2,000 mcg PO DAILY RF: 0 ergocalciferol (vitamin D2) 2,500 unit Capsule 2,500 unit PO DAILY RF: 0 potassium chloride 10 mEq capsule, extended release 10 meq PO DAILY RF: 0 ketoconazole 2 % shampoo 1 applic TOPICAL DIRECTED RF: 0 amlodipine 5 mg tablet 5 mg PO BID RF: 0 desonide 0.05 % lotion 1 applic TOPICAL DIRECTED RF: 0 furosemide 20 mg tablet 20 mg PO DAILY RF: 0 albuterol sulfate 90 mcg/actuation HFA aerosol inhaler 1 - 2 puff INHALATION Q4H PRN (Reason: cough or wheeze) RF: 0 losartan 100 mg tablet 100 mg PO QPM RF: 0 metoprolol tartrate 25 mg tablet 12.5 mg PO BID RF: 0 prednisone 20 mg Tablet 40 mg PO Q8H Qty: 1 RF: 0 amlodipine 2.5 mg tablet 2.5 mg PO DAILY RF: 0 isosorbide mononitrate 60 mg tablet extended release 24 hr 60 mg PO DAILY RF: 0 Referrals: Zoe Bass PA-C [Primary Care Provider] -
[2019-02-22 13:41] VITALS: BP 185/59; PULSE 85; RESP 22; O2SAT 98
[2019-02-22 14:16] LABS: Add Manual Diff / Slide Review NO; Basophils Absolute Auto 0 /uL (0-100); Basophils Percent Auto 0.4 % (0-2); Eosinophils Absolute Auto 200 /uL (0-450); Eosinophils Percent Auto 2.8 % (2-4); Hematocrit 42.3 % (36-46); Hemoglobin 14.2 g/dL (12.0-16.0); Lymphocytes Absolute Auto 2500 /uL (1100-4500); Lymphocytes Percent Auto 34.5 % (25-40); Mean Corpuscular HGB Conc 33.6 % (30-36); Mean Corpuscular Hemoglobin 28.8 PG (26-34); Mean Corpuscular Volume 85.8 fL (80-100); Monocytes Absolute Auto 700 /uL (0-900); Neutrophils Absolute Auto 3700 /uL (1500-7000); Neutrophils Percent Auto 52.3 % (50-75); Platelet Count 231 X10^3/uL (150-400); Red Blood Cell Count 4.93 X10^6/uL (4.0-5.2); Red Cell Distribution Width 16.5 % (11.6-14.8); White Blood Cell Count 7.2 X10^3/uL (4.5-11.0)
[2019-02-22 14:23] LABS: Prothrombin Time 11.4 SECONDS (10.1-12.7)
[2019-02-22 14:26] LABS: PTT Partial Thromboplastin Tim 30 SECONDS (26.4-36.2)
[2019-02-22 14:31] LABS: Albumin 4.5 g/dL (3.5-5.0); Albumin Globulin Ratio 1.4 (1.0-2.8); Alkaline Phosphatase 52 U/L (38-126); Aspartate Aminotransferase 26 IU/L (14-36); Bilirubin Total 0.5 mg/dL (0.2-1.3); Blood Urea Nitrogen 18 mg/dL (7-17); Calcium 9.5 mg/dL (8.4-10.2); Carbon Dioxide 28 mmol/L (22-32); Chloride 103 mmol/L (98-107); Creatine Kinase 55 U/L (30-135); Estimated Glomerular Filt Rate > 60.0 mL/min (>60); Globulin 3.2 g/dL (1.7-4.1); Glucose 95 mg/dL (80-110); HEMOLYSIS 17 (0-50); Lipase 109 U/L (23-300); Potassium 3.7 mmol/L (3.4-5.1); Sodium 141 mmol/L (137-145); Total Protein 7.7 g/dL (6.3-8.2)
[2019-02-22 14:41] LABS: Troponin I < 0.012 ng/mL (0.01-0.034)
[2019-02-22 14:46] LABS: B Type Natriuretic Peptide < 100 (<100)
[2019-02-22 14:47] LABS: Alanine Aminotransferase 9 IU/L (9-52)
[2019-02-22 15:00] VITALS: BP 179/62; PULSE 85; RESP 25; O2SAT 96
[2019-02-22 17:48] VITALS: BP 169/64; PULSE 84; RESP 20; O2SAT 95
[2019-02-22 18:00] VITALS: BP 176/61; PULSE 85; RESP 18; O2SAT 96
[2019-02-22] MEDS: ACETAMINOPHEN 325 MG TABLET 650 MG PO (18:07)
[2019-02-22] MEDS: APIXABAN 5 MG TABLET PO (18:12)
== END 2019-02-22 18:31 | disposition home or self-care (01) ==
PROVIDERS: Emergency Provider Emergency Medicine; Family Provider Internal Medicine; PCP Physician Assistant Medical
DX: I82.A11 Acute embolism and thrombosis of right axillary vein (principal); M79.601 Pain in right arm; R06.02 Shortness of breath; R07.9 Chest pain, unspecified; M79.662 Pain in left lower leg; M79.661 Pain in right lower leg
CPT/HCPCS: 36415; 71045; 80053; 82550; 83690; 83880; 84484; 85025; 85610; 85730; 93005; 93970; 93971; 99283; 99285

== ENCOUNTER 2019-03-21 01:33 | Emergency (ER) | payer MEDICARE, OTHER, SELFPAY ==
[2019-01-23 21:49] VITALS: BMI 33.3
--- NOTE | 2019-03-21 01:39 | DI.CT.S_ITS ---
PROCEDURE: CT ANGIO CHEST PE PROTOCOL INDICATIONS: Chest pain, shortness of breath TECHNIQUE: After the administration of intravenous contrast, 2 mm thick sections acquired from the pulmonary apices to the posterior costophrenic angles. 3-dimensional maximum intensity projection (MIP) coronal and sagittal reformats were then acquired through the thorax. For radiation dose reduction, the following was used: automated exposure control, adjustment of mA and/or kV according to patient size. COMPARISON: [facility], CT, CT ANGIO CHEST PE PROTOCOL, 09/20/2018, 12:12. FINDINGS: Image quality: Excellent. Pulmonary arteries: Pulmonary arteries are normal in size, and demonstrate no intraluminal filling defects to suggest central pulmonary embolism. Lungs and pleura: Low lung volumes. Bibasilar intralobular septal thickening, scattered groundglass opacity, and mild gravitational changes. Small bilateral pleural effusions layering posteriorly. Central and peripheral airways are patent. Mediastinum: Heart size is mildly enlarged and there is moderate coronary artery calcification.. Right paratracheal, AP window, and mild bilateral hilar adenopathy, similar compared to the prior study. Periesophageal and subcarinal adenopathy is present to a similar degree. Thoracic aorta is normal in caliber and enhancement. Esophagus is normal in caliber, with a small hiatal hernia. Bones and chest wall: Right upper outer quadrant breast mass seen previously. No suspicious bony lesions. Multiple moderate mid to lower thoracic compression fractures with end plate osteophytosis. Thyroid gland is normal. No axillary or supraclavicular adenopathy. Abdomen: Visualized upper abdominal solid organs appear normal in the early arterial phase of enhancement. IMPRESSION: 1. No pulmonary embolus. 2. Enlarged heart with mixed interstitial and alveolar changes suspicious for interstitial congestion and pulmonary edema. Alternatively, an acute infectious or inflammatory process might have this appearance. Correlate with BNP. There are small bilateral pleural effusions supporting congestive heart failure. 3. Mediastinal and hilar adenopathy to a similar degree compared to prior. This is nonspecific, but neoplasm is not excluded. 4. Right upper outer quadrant breast mass. Diagnostic mammogram and ultrasound is recommended. This has been present since the prior study. 5. Chronic appearing thoracic compression fractures. 6. Concordant with the preliminary report. Dictated by: Sherice Alexandra M.D. on 03/21/2019 at 8:31 Approved by: Sherice Alexandra M.D. on 03/21/2019 at 8:47
--- NOTE | 2019-03-21 01:39 | ED.CHESTPAIN ---
HPI - Chest Pain General Chief Complaint: Shortness of Breath/Dyspnea Stated Complaint: upper left back pain Time Seen by Provider: 03/21/19 01:34 Source: patient Mode of arrival: Ambulatory Limitations: no limitations History of Present Illness HPI narrative: 83-year-old female here for evaluation of left upper back pain. Patient states that the symptoms have been going on for the past couple days. She saw her primary doctor yesterday who ordered a chest x-ray. Patient has also been having a cough so she was placed on doxycycline. She has taken 1 dose of this medication. Recently patient did have right upper extremity DVT. She was placed on Eliquis. Since that time she was having episodes where she was passing out and had a fracture to her left foot. Patient was taken off the Eliquis since then. She does have a dietary aid. She denies any chest pain. She was told by her primary doctor that if her symptoms worsen she should come to the emergency department for concerns of potential pulmonary embolism. Related Data Home Medications Medication Instructions Recorded Confirmed aspirin 81 mg PO DAILY #0 05/14/17 01/23/19 clopidogrel 75 mg PO DAILY 11/18/18 02/22/19 cyanocobalamin (vitamin B-12) 2,000 mcg PO DAILY 11/18/18 01/23/19 ergocalciferol (vitamin D2) 2,500 unit PO DAILY 11/18/18 01/23/19 nitroglycerin 1 tab SUBLINGUAL [id number] PRN 11/18/18 02/22/19 rosuvastatin 40 mg PO QPM 11/18/18 02/22/19 albuterol sulfate 1 - 2 puff INHALATION Q4H PRN 01/23/19 01/23/19 amlodipine 5 mg PO BID 01/23/19 01/23/19 desonide 1 applic TOPICAL DIRECTED 01/23/19 01/23/19 furosemide 20 mg PO DAILY 01/23/19 02/22/19 ketoconazole 1 applic TOPICAL DIRECTED 01/23/19 01/23/19 losartan 100 mg PO QPM 01/23/19 02/22/19 metoprolol tartrate 12.5 mg PO BID 01/23/19 02/22/19 potassium chloride 10 meq PO DAILY 01/23/19 02/22/19 amlodipine 2.5 mg PO DAILY 02/22/19 02/22/19 isosorbide mononitrate 60 mg PO DAILY 02/22/19 02/22/19 Previous Rx's Medication Instructions Recorded prednisone 40 mg PO Q8H #1 tab 01/25/19 apixaban [Eliquis] 5 mg PO BID #60 tab 02/22/19 Allergies Allergy/AdvReac Type Severity Reaction Status Date / Time erythromycin base Allergy Severe Rash Verified 01/23/19 17:02 [ERYTHROMYCIN BASE] ibuprofen [IBUPROFEN] Allergy Severe Rash Verified 01/23/19 17:02 Iodinated Contrast Media Allergy Severe Unconscious Verified 02/22/19 13:10 [IODINATED CONTRAST- ORAL AND IV DYE] morphine [MORPHINE] Allergy Severe Rash Verified 01/23/19 17:02 naproxen [From ALEVE] Allergy Severe Rash Verified 01/23/19 17:02 telmisartan [TELMISARTAN] Allergy Severe Rash Verified 01/23/19 17:02 Review of Systems Constitutional Constitutional: Denies fever(s) Cardiovascular Cardiovascular: Denies chest pain Respiratory Respiratory: Reports cough Gastrointestinal Gastrointestinal: Denies abdominal pain Musculoskeletal Musculoskeletal: Reports back pain Integumentary/Breasts Skin/Breast: Denies lesions and Denies rash Neurologic Neurologic: Denies behavioral changes Psychiatric Psychiatric: Denies behavioral changes Hematologic/Lymphatic Hematologic/Lymphatic: Denies easy bleeding and Denies easy bruising Patient History Medical History Cardiac arrest (Acute) Chest pain (Inactive) Coronary artery disease (Acute) Hyperlipidemia (Acute) Hypertension (Acute) Left hamstring muscle strain (Inactive) UTI (urinary tract infection) (Inactive) Surgical History (Updated 01/23/19 @ 23:11 by JOJO Crocker) History of appendectomy (Acute) History of breast implant removal (Acute) History of breast surgery (Acute) History of cholecystectomy (Acute) History of coronary artery stent placement (Acute) History of total abdominal hysterectomy (Acute) Social History household members: children Smoking Status: Never smoker alcohol intake frequency: holidays/special occasions only Substance Use Type: does not use Exam Initial Vital Signs Initial Vital Signs: Vital Signs Temperature 97.7 F 03/21/19 01:44 Pulse Rate 84 03/21/19 01:44 Respiratory Rate 03/21/19 01:44 Blood Pressure 141/61 H 03/21/19 01:44 Pulse Oximetry 96 03/21/19 01:44 Const General: cooperative, comfortable and well developed Orientation: alert and awake HENMT Head: normal to inspection and normocephalic Resp Effort & Inspection: normal respiratory effort Auscultation: clear to auscultation bilaterally Cardio Rate: regular rate Rhythm: regular rhythm Skin Lesions: no lesions Rashes: no rashes Neuro General: alert and awake Cognition: normal cognition Speech: speech normal Motor: muscle tone normal throughout Extrem General: normal to inspection Other: Left lower foot and walking boot Psych Appearance: grossly normal and well kempt Course Orders Ordered: ED Orders 03/21/19 01:39 CT angio chest PE protocol Stat 03/21/19 01:47 EKG-12 Lead Stat 03/21/19 02:15 B Type Natriuretic Peptide Stat Complete Blood Count AUTO DIFF Stat Comprehensive Metabolic Panel Stat Lipase Stat Partial Thromboplastin Time Stat Prothrombin Time INR Stat Troponin I Stat Sodium Chloride (Normal Saline 0.9%) 1,000 mls @ 125 mls/hr IV CONT AFIA Last Admin: 03/21/19 02:30 Dose: 125 mls/hr Documented by: NIC Discontinued Medications Diphenhydramine HCl (Benadryl) 50 mg IV NOW ONE Stop: 03/21/19 01:59 Last Admin: 03/21/19 02:29 Dose: 50 mg Documented by: NIC Methylprednisolone (Solu-Medrol 125 Mg Vial) 40 mg IV NOW ONE Stop: 03/21/19 01:59 Last Admin: 03/21/19 02:29 Dose: 40 mg Documented by: NIC Vital Signs Vital signs: Vital Signs - 8 hr 03/21/19 01:44 03/21/19 03:32 Temperature 97.7 F Pulse Rate 84 55 L Respiratory Rate 19 16 Blood Pressure 141/61 H Blood Pressure [Left Arm] 125/51 L Pulse Oximetry 96 93 MDM - Chest Pain Medical Records Data Attestation: I reviewed the patient's medical records. Lab Data Attestation: I reviewed the patient's lab results. Result diagrams: 03/21/19 02:15 03/21/19 02:15 Labs: Lab Results 03/21/19 03/21/19 03/21/19 Range/Units 02:15 02:15 02:15 WBC 7.5 (4.5-11.0) X10^3/uL RBC 4.66 (4.0-5.2) X10^6/uL Hgb 13.6 (12.0-16.0) g/dL Hct 39.4 (36-46) % MCV 84.5 (80-100) fL MCH 29.1 (26-34) PG MCHC 34.5 (30-36) % RDW 15.7 H (11.6-14.8) % Plt Count 209 (150-400) X10^3/uL Neut % (Auto) 64.9 (50-75) % Lymph % (Auto) 25.8 (25-40) % [place] % (Auto) 7.2 (3-14) % Eos % (Auto) 1.7 L (2-4) % Baso % (Auto) 0.4 (0-2) % Neut # (Auto) 4900 (7685-3624) /uL Lymph # (Auto) 1900 (6673-3127) /uL [place] # (Auto) 500 (0-900) /uL Eos # (Auto) 100 (0-450) /uL Baso # (Auto) 0 (0-100) /uL PT 12.1 (10.1-12.7) SECONDS INR 1.0 (0.9-1.3) APTT 27 D (26.4-36.2) SECONDS Sodium 137 (137-145) mmol/L Potassium 3.7 (3.4-5.1) mmol/L Chloride 102 (98-107) mmol/L Carbon Dioxide 25 (22-32) mmol/L BUN 16 (7-17) mg/dL Creatinine 0.80 (0.52-1.04) mg/dL Estimated GFR > 60.0 (>60) mL/min BUN/Creatinine Ratio 20.0 (6-22) Glucose 124 H (80-110) mg/dL Calcium 9.6 (8.4-10.2) mg/dL Total Bilirubin 0.9 (0.2-1.3) mg/dL AST 24 (14-36) IU/L ALT 9 (<35) IU/L Alkaline Phosphatase 55 (38-126) U/L Troponin I (0.01-0.034) ng/mL B-Natriuretic Peptide 170 H (<100) Total Protein 7.4 (6.3-8.2) g/dL Albumin 4.5 (3.5-5.0) g/dL Globulin 2.9 (1.7-4.1) g/dL Albumin/Globulin Ratio 1.6 (1.0-2.8) Lipase (23-300) U/L 03/21/19 Range/Units 02:15 WBC (4.5-11.0) X10^3/uL RBC (4.0-5.2) X10^6/uL Hgb (12.0-16.0) g/dL Hct (36-46) % MCV (80-100) fL MCH (26-34) PG MCHC (30-36) % RDW (11.6-14.8) % Plt Count (150-400) X10^3/uL Neut % (Auto) (50-75) % Lymph % (Auto) (25-40) % [place] % (Auto) (3-14) % Eos % (Auto) (2-4) % Baso % (Auto) (0-2) % Neut # (Auto) (0986-6457) /uL Lymph # (Auto) (9212-7406) /uL [place] # (Auto) (0-900) /uL Eos # (Auto) (0-450) /uL Baso # (Auto) (0-100) /uL PT (10.1-12.7) SECONDS INR (0.9-1.3) APTT (26.4-36.2) SECONDS Sodium (137-145) mmol/L Potassium (3.4-5.1) mmol/L Chloride (98-107) mmol/L Carbon Dioxide (22-32) mmol/L BUN (7-17) mg/dL Creatinine (0.52-1.04) mg/dL Estimated GFR (>60) mL/min BUN/Creatinine Ratio (6-22) Glucose (80-110) mg/dL Calcium (8.4-10.2) mg/dL Total Bilirubin (0.2-1.3) mg/dL AST (14-36) IU/L ALT (<35) IU/L Alkaline Phosphatase (38-126) U/L Troponin I < 0.012 (0.01-0.034) ng/mL B-Natriuretic Peptide (<100) Total Protein (6.3-8.2) g/dL Albumin (3.5-5.0) g/dL Globulin (1.7-4.1) g/dL Albumin/Globulin Ratio (1.0-2.8) Lipase 109 (23-300) U/L Imaging Data CT scan - chest: Radiologist's impression: No evidence for clinically significant pulmonary embolism Focal adenopathy may reflect chronic inflammatory disease or neoplastic process Bibasilar pleural effusions with commensurate bibasilar lung consolidations, likely representing atelectasis versus infiltrate ECG Data Attestation: I personally reviewed and interpreted this ECG as follows: Prior ECG tracings: not available for review Interpretation: Sinus bradycardia Ventricular rate of 57 Normal axis Normal QRS Normal QTC No ST T wave changes MDM Narrative Medical decision making narrative: Patient not hypoxic. Not tachycardic. CT scan shows no signs of pulmonary embolism. No definitive pneumonia noted on the CT scan however she is currently being treated by her primary doctor. Informed her she should continue to take these medications. We did discuss the adenopathy. Informed her that she should talk with her primary doctor about potential workup. She has had basal cell carcinoma of the skin however no other history of cancers. Patient's back pain could also be musculoskeletal given the fact that she has been coughing for the past day or so as well. Hold on further workup for now. Patient was given return precautions and follow-up instructions. She expressed understanding and agreement with plan. Discharge Plan Departure Patient Disposition: Home Clinical Impression: Thoracic back pain Instructions: DI for Thoracic Back Pain Activity Restrictions/Additional Instructions: Recommend you take all of your medications as directed. Keep all of your scheduled medical appointments. Return to the emergency department for any new or worsening symptoms Prescriptions: No Action aspirin 81 MG tablet,delayed release (DR/EC) 81 mg PO DAILY Qty: 0 RF: 0 clopidogrel 75 mg tablet 75 mg PO DAILY RF: 0 nitroglycerin 0.4 mg tablet, sublingual 1 tab sublingual [id number] PRN (Reason: Chest Pain) RF: 0 rosuvastatin 40 mg tablet 40 mg PO QPM RF: 0 cyanocobalamin (vitamin B-12) 2,000 mcg Tablet 2,000 mcg PO DAILY RF: 0 ergocalciferol (vitamin D2) 2,500 unit Capsule 2,500 unit PO DAILY RF: 0 potassium chloride 10 mEq capsule, extended release 10 meq PO DAILY RF: 0 ketoconazole 2 % shampoo 1 applic TOPICAL DIRECTED RF: 0 amlodipine 5 mg tablet 5 mg PO BID RF: 0 desonide 0.05 % lotion 1 applic TOPICAL DIRECTED RF: 0 furosemide 20 mg tablet 20 mg PO DAILY RF: 0 albuterol sulfate 90 mcg/actuation HFA aerosol inhaler 1 - 2 puff INHALATION Q4H PRN (Reason: cough or wheeze) RF: 0 losartan 100 mg tablet 100 mg PO QPM RF: 0 metoprolol tartrate 25 mg tablet 12.5 mg PO BID RF: 0 prednisone 20 mg Tablet 40 mg PO Q8H Qty: 1 RF: 0 amlodipine 2.5 mg tablet 2.5 mg PO DAILY RF: 0 isosorbide mononitrate 60 mg tablet extended release 24 hr 60 mg PO DAILY RF: 0 Eliquis 5 mg tablet 5 mg PO BID Qty: 60 RF: 0 Referrals: Zoe Bass PA-C [Primary Care Provider] -
[2019-03-21 01:44] VITALS: BP 141/61; PULSE 84; RESP 19; TEMP 36.5; O2SAT 96; BMI 32.5
[2019-03-21 02:20] LABS: Add Manual Diff / Slide Review NO; Basophils Absolute Auto 0 /uL (0-100); Basophils Percent Auto 0.4 % (0-2); Eosinophils Absolute Auto 100 /uL (0-450); Eosinophils Percent Auto 1.7 % (2-4); Hematocrit 39.4 % (36-46); Hemoglobin 13.6 g/dL (12.0-16.0); Lymphocytes Absolute Auto 1900 /uL (1100-4500); Lymphocytes Percent Auto 25.8 % (25-40); Mean Corpuscular HGB Conc 34.5 % (30-36); Mean Corpuscular Hemoglobin 29.1 PG (26-34); Mean Corpuscular Volume 84.5 fL (80-100); Monocytes Absolute Auto 500 /uL (0-900); Monocytes Percent Auto 7.2 % (3-14); Neutrophils Absolute Auto 4900 /uL (1500-7000); Neutrophils Percent Auto 64.9 % (50-75); Platelet Count 209 X10^3/uL (150-400); Red Blood Cell Count 4.66 X10^6/uL (4.0-5.2); Red Cell Distribution Width 15.7 % (11.6-14.8); White Blood Cell Count 7.5 X10^3/uL (4.5-11.0)
[2019-03-21 02:26] LABS: Prothrombin Time 12.1 SECONDS (10.1-12.7)
[2019-03-21 02:28] LABS: PTT Partial Thromboplastin Tim 27 SECONDS (26.4-36.2)
[2019-03-21] MEDS: methylPREDNISolone 125 MG/2 ML VIAL 40 MG IV (02:29)
[2019-03-21] MEDS: diphenhydrAMINE 50 MG/ML VIAL IV (02:29)
[2019-03-21] MEDS: SODIUM CHLORIDE 0.9% 1,000 ML 125 ML IV (02:30)
[2019-03-21 02:31] LABS: Alanine Aminotransferase 9 IU/L (<35); Albumin 4.5 g/dL (3.5-5.0); Albumin Globulin Ratio 1.6 (1.0-2.8); Alkaline Phosphatase 55 U/L (38-126); Aspartate Aminotransferase 24 IU/L (14-36); Bilirubin Total 0.9 mg/dL (0.2-1.3); Blood Urea Nitrogen 16 mg/dL (7-17); Calcium 9.6 mg/dL (8.4-10.2); Carbon Dioxide 25 mmol/L (22-32); Chloride 102 mmol/L (98-107); Estimated Glomerular Filt Rate > 60.0 mL/min (>60); Globulin 2.9 g/dL (1.7-4.1); Glucose 124 mg/dL (80-110); HEMOLYSIS < 15 (0-50); Lipase 109 U/L (23-300); Potassium 3.7 mmol/L (3.4-5.1); Sodium 137 mmol/L (137-145); Total Protein 7.4 g/dL (6.3-8.2)
[2019-03-21 02:43] LABS: B Type Natriuretic Peptide 170 (<100); Troponin I < 0.012 ng/mL (0.01-0.034)
[2019-03-21 03:32] VITALS: BP 125/51; PULSE 55; RESP 16; O2SAT 93
[2019-03-21 05:35] VITALS: BP 135/56; PULSE 63; RESP 17; O2SAT 93
== END 2019-03-21 05:39 | disposition home or self-care (01) ==
PROVIDERS: Emergency Provider Emergency Medicine; Family Provider Internal Medicine; PCP Physician Assistant Medical
DX: M54.6 Pain in thoracic spine (principal); R00.1 Bradycardia, unspecified; R05 Cough
CPT/HCPCS: 36415; 71275; 80053; 83690; 83880; 84484; 85025; 85610; 85730; 93005; 93010; 96361; 96374; 96375; 99283; 99285; J1200; J2930; Q9967

== ENCOUNTER → 2019-04-15 13:24 | Outpatient (CLI) | payer MEDICARE, OTHER, SELFPAY ==
[2019-01-23 21:49] VITALS: BMI 33.3
--- NOTE | 2019-04-15 | DI.US.S_ITS ---
PROCEDURE: US PERIP VENOUS LOW EXTREM LT INDICATIONS: PAIN SWELLING IN LOWER LEFT LEG TECHNIQUE: Real-time imaging, as well as color and pulse Doppler interrogation, were performed of the lower extremity deep veins from the inguinal ligament to the popliteal fossa. COMPARISON: [facility], [facility] VENOUS LOW EXTREM LT, 01/24/2019, 12:04. FINDINGS: The common femoral, femoral and popliteal veins are normally compressible, and free of intraluminal thrombus. Color and pulse Doppler demonstrate normal phasic intraluminal flow. There is normal augmentation response to distal compression maneuver. IMPRESSION: No deep venous thrombosis identified within the left lower extremity. Dictated by: Chase Rees [facility] Interpreted: Evelina York MD on 04/15/2019 at 15:14 Approved by: Evelina York MD, PhD on 04/15/2019 at 17:05
== END ==
PROVIDERS: Family Provider Internal Medicine; PCP Physician Assistant Medical; Visit Provider Family Medicine
DX: M79.662 Pain in left lower leg (principal); M79.89 Other specified soft tissue disorders
CPT/HCPCS: 93971

== ENCOUNTER 2019-05-03 12:09 | Emergency (ER) | payer MEDICARE, OTHER, SELFPAY ==
[2019-01-23 21:49] VITALS: BMI 33.3
[2019-05-03] VITALS (22 sets, daily range): BP systolic 93–135; BP diastolic 39–72; PULSE 54–71; RESP 10–21; TEMP 36.7; O2SAT 93–98
--- NOTE | 2019-05-03 12:29 | DI.RAD.S_ITS ---
PROCEDURE: XR CHEST 1V INDICATIONS: chest pain TECHNIQUE: One view of the chest was acquired. COMPARISON: [facility], [place], XR CHEST 1 VIEW, 03/11/2019, 16:10. FINDINGS: Surgical changes and devices: Cardiac pacer/monitor has been removed in the interim. Coronary artery stent overlying the left heart border is present. Lungs and pleura: Lungs are clear. No pleural effusions or pneumothorax. Mediastinum: Mediastinal contours appear normal. Heart size is mildly enlarged. Bones and chest wall: No suspicious bony lesions. Degenerative changes of the shoulders and spine are not adequately evaluated. Overlying soft tissues appear unremarkable. IMPRESSION: Cardiomegaly without overt heart failure. Dictated by: Juventino Acosta M.D. on 05/03/2019 at 12:21 Approved by: Juventino Acosta M.D. on 05/03/2019 at 12:22
--- NOTE | 2019-05-03 12:56 | ED.CHESTPAIN ---
HPI - Chest Pain General Chief Complaint: Chest Pain Stated Complaint: weak,pain between shoulder, chest pain Time Seen by Provider: 05/03/19 12:56 Source: patient and family Mode of arrival: Wheelchair Limitations: no limitations History of Present Illness HPI narrative: This is an 83-year-old female who comes to the emergency department with complaint of chest pain and back pain. Patient states she has felt fatigued and tired a little bit nauseous the last 3 days and had a decreased appetite. She went to bed about 7:00 a.m. last night. She states she had back pain is localized took some Gas-X and some Tylenol which was not helpful and tried warm hot pack. She states that the same time she felt some chest pressure. Patient states it's been a constant presence. The pressure sort of waxes and wanes with intensity but has never resolved. She states walking does seem to make it worse. She felt a little dizzy, no syncope. She has had a mild cough that's nonproductive. No fevers although she took her temperature at home was 100.1 F. She has been nauseated but no vomiting. Denies abdominal pain, denies issues with bowel movements or urination. She states she has some similar back pain in the past on the left side and was found to have pneumonia but on antibiotics and had improvement. She was also found have a DVT in her right upper extremity in February, she was on Eliquis for about 30 days but had severe headaches, had negative head CTs but was stopped and switched aspirin and Plavix. She has had 4 stents placed in September. Her registered midwife is Dr. Ellington. She also has a broken foot on her left leg. Related Data Home Medications Medication Instructions Recorded Confirmed aspirin 81 mg PO DAILY #0 05/14/17 05/03/19 cyanocobalamin (vitamin B-12) 2,000 mcg PO DAILY 11/18/18 05/03/19 nitroglycerin 1 tab SUBLINGUAL [id number] PRN 11/18/18 05/03/19 rosuvastatin 40 mg PO QPM 11/18/18 05/03/19 albuterol sulfate 2 puff INHALATION Q4H PRN 01/23/19 05/03/19 furosemide 20 mg PO DAILY 01/23/19 05/03/19 losartan 100 mg PO QPM 01/23/19 05/03/19 metoprolol tartrate 25 mg PO BID 01/23/19 05/03/19 potassium chloride 10 meq PO DAILY 01/23/19 05/03/19 amlodipine 10 mg PO DAILY 05/03/19 05/03/19 cholecalciferol (vitamin D3) 5,000 unit PO DAILY 05/03/19 05/03/19 [Vitamin D3] clopidogrel 75 mg PO DAILY 05/03/19 05/03/19 escitalopram oxalate 5 mg PO DAILY 05/03/19 05/03/19 Allergies Allergy/AdvReac Type Severity Reaction Status Date / Time erythromycin base Allergy Severe Rash Verified 05/03/19 12:29 [ERYTHROMYCIN BASE] ibuprofen [IBUPROFEN] Allergy Severe Rash Verified 05/03/19 12:29 Iodinated Contrast Media Allergy Severe Unconscious Verified 05/03/19 12:29 [IODINATED CONTRAST- ORAL AND IV DYE] morphine [MORPHINE] Allergy Severe Rash Verified 05/03/19 12:29 naproxen [From ALEVE] Allergy Severe Rash Verified 05/03/19 12:29 telmisartan [TELMISARTAN] Allergy Severe Rash Verified 05/03/19 12:29 Review of Systems Review of Systems ROS Unobtainable: All systems reviewed & are unremarkable except as noted in HPI and below Patient History Medical History Cardiac arrest (Acute) Chest pain (Inactive) Coronary artery disease (Acute) Hyperlipidemia (Acute) Hypertension (Acute) Left hamstring muscle strain (Inactive) UTI (urinary tract infection) (Inactive) Surgical History History of appendectomy (Acute) History of breast implant removal (Acute) History of breast surgery (Acute) History of cholecystectomy (Acute) History of coronary artery stent placement (Acute) History of total abdominal hysterectomy (Acute) Social History household members: children Smoking Status: Never smoker Smoking Status: Never smoker alcohol intake frequency: holidays/special occasions only Substance Use Type: does not use Exam Narrative Exam Narrative: GEN: well nourished, well appearing female, alert and oriented x 3, patient appears to be in mild distress. HEENT: Atraumatic, pupils are equal round reactive to light, extraocular movements are intact, nares are clear, TMs are clear with no fluis. HEART: Regular rate and rhythm without murmur, clicks, rubs. No carotid bruits, pulses are equal in upper and lower extremities LUNGS:Lungs clear to auscultation, no wheezes, rales, crackles, chest moves symmetrically, no tachypnea. No accessory muscle use. ABD:bowel sounds normal, soft, non-tender, no guarding, rebound, rigidity, no masses noted, no hepatosplenomegaly :No CVA tenderness BACK: No cervical, thoracic or lumbar vertebral point tenderness. No tenderness of the muscular back. Patient has normal range of motion. Patient's gait is gait deferred. MSCL: Non-tender, no muscle atrophy, patient has a walking boot on the left lower extremity. NEURO:CN 2-12 intact, sensation normal SKIN: No rashes, no erythema or skin changes of the back or torso. Initial Vital Signs Initial Vital Signs: Vital Signs Temperature 98.0 F 05/03/19 12:10 Pulse Rate 71 05/03/19 12:10 Respiratory Rate 14 05/03/19 12:10 Blood Pressure 135/58 L 05/03/19 12:10 Pulse Oximetry 96 05/03/19 12:10 Course Orders Ordered: ED Orders 05/03/19 12:29 XR chest 1V Stat EKG-12 Lead Stat 05/03/19 12:50 Complete Blood Count AUTO DIFF Stat Comprehensive Metabolic Panel Stat Lipase Stat Magnesium Stat Partial Thromboplastin Time Stat Prothrombin Time INR Stat Troponin & CK Cardiac Panel Stat Discontinued Medications Acetaminophen (Tylenol) 650 mg PO NOW ONE Stop: 05/03/19 14:42 Last Admin: 05/03/19 14:50 Dose: 650 mg Documented by: CATRACHITA Aspirin (Aspirin Chew) 243 mg PO NOW ONE Stop: 05/03/19 13:43 Last Admin: 05/03/19 13:52 Dose: 243 mg Documented by: CATRACHITA Fentanyl (Sublimaze) 50 mcg IV NOW ONE Stop: 05/03/19 14:05 Last Admin: 05/03/19 15:27 Dose: 50 mcg Documented by: CATRACHITA Heparin Sodium (Porcine) (Heparin) 5,000 unit IV NOW ONE Stop: 05/03/19 14:20 Last Admin: 05/03/19 14:32 Dose: 5,000 unit Documented by: CATRACHITA Heparin Sodium/Dextrose (Heparin Drip) 25,000 unit in 500 mls @ 21.555 mls/hr IV CONT [facility]; Protocol Last Infusion: 05/03/19 17:13 Dose: 0 units/kg/hr, 0 mls/hr Documented by: Infusion: 05/03/19 16:14 Dose: 11.13 units/kg/hr, 20 mls/hr Documented by: Admin: 05/03/19 14:32 Dose: 12 units/kg/hr, 21.555 mls/hr Documented by: CATRACHITA Nitroglycerin (Nitroglycerin) 50 mg in 250 mls @ 1.5 mls/hr IV TITRATE [facility]; Protocol Last Titration: 05/03/19 17:13 Dose: 0 mcg/min, 0 mls/hr Documented by: Admin: 05/03/19 14:51 Dose: 5 mcg/min, 1.5 mls/hr Documented by: CATRACHITA Sodium Chloride (Normal Saline 0.9%) 1,000 mls @ 50 mls/hr IV BOLUS ONE Stop: 05/04/19 10:40 Last Infusion: 05/03/19 17:14 Dose: 0 mls/hr Documented by: Admin: 05/03/19 14:51 Dose: 50 mls/hr Documented by: CATRACHITA Nitroglycerin (Nitrostat) 0.4 mg SL [id number] PRN PRN Reason: Chest Pain Last Admin: 05/03/19 14:39 Dose: 0.4 mg Documented by: Admin: 05/03/19 14:23 Dose: 0.4 mg Documented by: Admin: 05/03/19 13:58 Dose: 0.4 mg Documented by: CATRACHITA Ondansetron HCl (Zofran) 4 mg IV NOW ONE Stop: 05/03/19 14:05 Last Admin: 05/03/19 14:17 Dose: 4 mg Documented by: CATRACHITA Vital Signs Vital signs: Vital Signs - 8 hr 05/03/19 12:10 05/03/19 12:30 05/03/19 13:38 Temperature 98.0 F Pulse Rate 71 60 54 L Respiratory Rate 14 18 10 L Blood Pressure 135/58 L Blood Pressure [Left Arm] 111/45 L 116/60 Pulse Oximetry 96 98 97 05/03/19 13:50 05/03/19 13:58 05/03/19 14:00 Temperature Pulse Rate 57 L 60 62 Respiratory Rate 14 16 Blood Pressure 125/50 L Blood Pressure [Left Arm] 126/50 L 109/49 L Pulse Oximetry 98 97 05/03/19 14:08 05/03/19 14:20 05/03/19 14:23 Temperature Pulse Rate 61 61 Respiratory Rate 18 14 Blood Pressure 132/72 Blood Pressure [Left Arm] 107/42 L 132/57 L Pulse Oximetry 98 98 05/03/19 14:30 05/03/19 14:35 05/03/19 14:39 Temperature Pulse Rate 60 60 Respiratory Rate 13 13 Blood Pressure 122/47 L Blood Pressure [Left Arm] 101/45 L 122/47 L Pulse Oximetry 97 98 05/03/19 14:45 05/03/19 14:50 05/03/19 14:51 Temperature Pulse Rate 57 L 58 L 58 L Respiratory Rate 14 16 Blood Pressure 105/46 L Blood Pressure [Left Arm] 93/39 L 105/46 L Pulse Oximetry 97 98 05/03/19 15:00 05/03/19 15:15 05/03/19 15:33 Temperature Pulse Rate 59 L 59 L 58 L Respiratory Rate 12 17 16 Blood Pressure Blood Pressure [Left Arm] 125/47 L 106/44 L 105/45 L Pulse Oximetry 98 97 98 05/03/19 16:15 05/03/19 16:30 05/03/19 16:45 Temperature Pulse Rate 58 L 58 L 63 Respiratory Rate 14 13 21 Blood Pressure Blood Pressure [Left Arm] 109/46 L 96/44 L 108/54 L Pulse Oximetry 94 95 94 05/03/19 17:00 Temperature Pulse Rate 62 Respiratory Rate 12 Blood Pressure Blood Pressure [Left Arm] 99/45 L Pulse Oximetry 93 MDM - Chest Pain Lab Data Attestation: I reviewed the patient's lab results. Result diagrams: 05/03/19 12:50 05/03/19 12:50 Labs: Lab Results 05/03/19 05/03/19 05/03/19 Range/Units 12:50 12:50 12:50 WBC 7.5 (4.5-11.0) X10^3/uL RBC 4.43 (4.0-5.2) X10^6/uL Hgb 12.9 (12.0-16.0) g/dL Hct 37.5 (36-46) % MCV 84.7 (80-100) fL MCH 29.2 (26-34) PG MCHC 34.5 (30-36) % RDW 15.4 H (11.6-14.8) % Plt Count 241 (150-400) X10^3/uL Neut % (Auto) 55.1 (50-75) % Lymph % (Auto) 34.9 (25-40) % Schley % (Auto) 8.0 (3-14) % Eos % (Auto) 1.5 L (2-4) % Baso % (Auto) 0.5 (0-2) % Neut # (Auto) 4200 (8549-8593) /uL Lymph # (Auto) 2600 (6488-5768) /uL Schley # (Auto) 600 (0-900) /uL Eos # (Auto) 100 (0-450) /uL Baso # (Auto) 0 (0-100) /uL PT 12.9 H (10.1-12.7) SECONDS INR 1.1 (0.9-1.3) APTT 28 (26.4-36.2) SECONDS Sodium 140 (137-145) mmol/L Potassium 3.4 (3.4-5.1) mmol/L Chloride 104 (98-107) mmol/L Carbon Dioxide 27 (22-32) mmol/L BUN 20 H (7-17) mg/dL Creatinine 0.90 (0.52-1.04) mg/dL Estimated GFR > 60.0 (>60) mL/min BUN/Creatinine Ratio 22.2 H (6-22) Glucose 114 H (80-110) mg/dL Calcium 9.4 (8.4-10.2) mg/dL Magnesium 1.9 (1.6-2.3) mg/dL Total Bilirubin 0.6 (0.2-1.3) mg/dL AST 22 (14-36) IU/L ALT 8 (<35) IU/L Alkaline Phosphatase 49 (38-126) U/L Total Creatine Kinase 49 (30-135) U/L CK-MB (CK-2) TNP CK-MB (CK-2) Rel Index TNP Troponin I 0.466 H* (0.01-0.034) ng/mL Total Protein 7.0 (6.3-8.2) g/dL Albumin 4.4 (3.5-5.0) g/dL Globulin 2.6 (1.7-4.1) g/dL Albumin/Globulin Ratio 1.7 (1.0-2.8) Lipase 98 (23-300) U/L Imaging Data Chest x-ray: My impression: Cardiomegaly, no acute infiltrate. Radiologist's impression: [address] [address] XRay Report Signed Patient: Lida Townsend TMR#: [id number] : 8Acct:[id number] Age/Sex: 83 / FDate of Service: 05/03/19 Loc: ED Accession Number: [id number] Procedure: XR chest 1V Ordering Provider: Cherry Riggins D.O. PROCEDURE: XR CHEST 1V INDICATIONS: chest pain TECHNIQUE: One view of the chest was acquired. COMPARISON: [facility], , XR CHEST 1 VIEW, 03/11/2019, 16:10. FINDINGS: Surgical changes and devices: Cardiac pacer/monitor has been removed in the interim. Coronary artery stent overlying the left heart border is present. Lungs and pleura: Lungs are clear. No pleural effusions or pneumothorax. Mediastinum: Mediastinal contours appear normal. Heart size is mildly enlarged. Bones and chest wall: No suspicious bony lesions. Degenerative changes of the shoulders and spine are not adequately evaluated. Overlying soft tissues appear unremarkable. IMPRESSION: Cardiomegaly without overt heart failure. Dictated by: Juventino Acosta M.D. on 05/03/2019 at 12:21 Approved by: Juventino Acosta M.D. on 05/03/2019 at 12:22 ECG Data Attestation: I personally reviewed and interpreted this ECG as follows: Prior ECG tracings: available for review Interpretation: Sinus rhythm incomplete right bundle branch, rate of 63 P are 159 QRS of 109 and QTC of 451. Patient does appear to have some depression in 3 possibly AVF. No elevation is appreciated but patient does appear to have some depression of T-waves or flattening in lateral leads as well compared to an EKG from 03/21/2019 [facility] Narrative Medical decision making narrative: Discussed with patient I would be concerned for cardiac cause although she does have potential for PE as well with her recent history of axillary DVT and being on Eliquis for 30 days. She did not have any further evaluation ultrasound after Eliquis was stopped. Patient comes in with chest pressure and back pain that's been present since last night. She has new EKG changes with depression but no elevation. Troponin is positive. Patient was given 3 additional aspirin to her normal 81 mg. She does normally take Plavix. Patient was also given nitro sublingual, and her chest pain is still present but received the nitro back shortly. Patient was seen and treated at [facility] for prior CA by Dr. Ellington. Spoke with Dr. Brayden greenfield and Lili. Both recommend transfer. Plan for heparin bolus and gtt, nitro gtt as patient is still having chest pain. They feel appropriate for transfer may need repeat cath. Asks for us to talk to hospitalist. We did discuss patient was on Eliquis for DVT in her upper extremity and was stopped early. They did not feel that we should get PE scan as there's a likelihood they're going to catheterization and they would not like her to have a double dose of contrast. To be honest patient has not been tachycardic, she has not been hypoxic on my suspicion for PE is significantly lower than ACS. Patient chest pain is 1/10 and significantly improved from earlier on nitro drip and heparin. She does have a headache and give tylenol po. Discussed findings with Dr. Tello he asked to discuss with cardiology and did with Dr. Pearson and accepts for transfer. Patient pressures have been around 100 systolic after nitro started but patient has not had any other symptoms. Discussed labs, ekg findings and cardiology recommendations. Recheck just prior to transfer patient states she is chest pain free. Patient continues to be on nitro gtt and heparin gtt. Discharge Plan Departure Patient Disposition: [facility] Clinical Impression: Non-ST elevation CA (NSTEMI) Discharge Date/Time: 05/03/19 17:22 Prescriptions: No Action aspirin 81 MG tablet,delayed release (DR/EC) 81 mg PO DAILY Qty: 0 RF: 0 clopidogrel 75 mg tablet 75 mg PO DAILY RF: 0 amlodipine 10 mg tablet 10 mg PO DAILY RF: 0 escitalopram oxalate 5 mg tablet 5 mg PO DAILY RF: 0 cholecalciferol (vitamin D3) [Vitamin D3] 5,000 unit Tablet 5,000 unit PO DAILY RF: 0 nitroglycerin 0.4 mg tablet, sublingual 1 tab sublingual [id number] PRN (Reason: Chest Pain) RF: 0 rosuvastatin 40 mg tablet 40 mg PO QPM RF: 0 cyanocobalamin (vitamin B-12) 2,000 mcg Tablet 2,000 mcg PO DAILY RF: 0 potassium chloride 10 mEq capsule, extended release 10 meq PO DAILY RF: 0 furosemide 20 mg tablet 20 mg PO DAILY RF: 0 albuterol sulfate 90 mcg/actuation HFA aerosol inhaler 2 puff INHALATION Q4H PRN (Reason: cough or wheeze) RF: 0 losartan 100 mg tablet 100 mg PO QPM RF: 0 metoprolol tartrate 25 mg tablet 25 mg PO BID RF: 0 Referrals: Zoe Bass PA-C [Primary Care Provider] -
[2019-05-03 13:02] LABS: Add Manual Diff / Slide Review NO; Basophils Absolute Auto 0 /uL (0-100); Basophils Percent Auto 0.5 % (0-2); Eosinophils Absolute Auto 100 /uL (0-450); Eosinophils Percent Auto 1.5 % (2-4); Hematocrit 37.5 % (36-46); Hemoglobin 12.9 g/dL (12.0-16.0); Lymphocytes Absolute Auto 2600 /uL (1100-4500); Lymphocytes Percent Auto 34.9 % (25-40); Mean Corpuscular HGB Conc 34.5 % (30-36); Mean Corpuscular Hemoglobin 29.2 PG (26-34); Mean Corpuscular Volume 84.7 fL (80-100); Monocytes Absolute Auto 600 /uL (0-900); Neutrophils Absolute Auto 4200 /uL (1500-7000); Neutrophils Percent Auto 55.1 % (50-75); Platelet Count 241 X10^3/uL (150-400); Red Blood Cell Count 4.43 X10^6/uL (4.0-5.2); Red Cell Distribution Width 15.4 % (11.6-14.8); White Blood Cell Count 7.5 X10^3/uL (4.5-11.0)
[2019-05-03 13:11] LABS: INR 1.1 (0.9-1.3); Prothrombin Time 12.9 SECONDS (10.1-12.7)
[2019-05-03 13:13] LABS: Alanine Aminotransferase 8 IU/L (<35); Albumin 4.4 g/dL (3.5-5.0); Albumin Globulin Ratio 1.7 (1.0-2.8); Alkaline Phosphatase 49 U/L (38-126); Aspartate Aminotransferase 22 IU/L (14-36); BUN Creatinine Ratio 22.2 (6-22); Bilirubin Total 0.6 mg/dL (0.2-1.3); Blood Urea Nitrogen 20 mg/dL (7-17); Calcium 9.4 mg/dL (8.4-10.2); Carbon Dioxide 27 mmol/L (22-32); Chloride 104 mmol/L (98-107); Creatine Kinase 49 U/L (30-135); Estimated Glomerular Filt Rate > 60.0 mL/min (>60); Globulin 2.6 g/dL (1.7-4.1); Glucose 114 mg/dL (80-110); HEMOLYSIS < 15 (0-50); Lipase 98 U/L (23-300); Magnesium 1.9 mg/dL (1.6-2.3); Potassium 3.4 mmol/L (3.4-5.1); Sodium 140 mmol/L (137-145)
[2019-05-03 13:14] LABS: PTT Partial Thromboplastin Tim 28 SECONDS (26.4-36.2)
[2019-05-03 13:47] LABS: Troponin I 0.466 ng/mL (0.01-0.034)
[2019-05-03] MEDS: ASPIRIN 81 MG CHEW TAB 243 MG PO (13:52)
[2019-05-03] MEDS: NITROGLYCERIN 0.4 MG SL TAB SL ×3 (13:58→14:39)
[2019-05-03] MEDS: ONDANSETRON 4 MG/2 ML INJ IV (14:17)
[2019-05-03] MEDS: HEPARIN 5,000 UNIT/ML VIAL 5000 UNIT IV (14:32)
[2019-05-03] MEDS: HEPARIN DRIP 25,000 UNIT/500 ML IV.SOLN 21.555 UNIT IV (14:32)
[2019-05-03] MEDS: ACETAMINOPHEN 325 MG TABLET 650 MG PO (14:50)
[2019-05-03] MEDS: SODIUM CHLORIDE 0.9% 1,000 ML 50 ML IV (14:51)
[2019-05-03] MEDS: NITROGLYCERIN 50 MG/250 ML INFUS..BTL IV (14:51)
[2019-05-03] MEDS: fentaNYL 100 MCG/2 ML INJ 50 MCG IV (15:27)
--- NOTE | 2019-05-03 17:14 | PC.NURSE ---
gtts continue w/ NWA.
== END 2019-05-03 17:22 | disposition short-term general hospital (02) ==
PROVIDERS: Emergency Provider Emergency Medicine; Family Provider Internal Medicine; PCP Physician Assistant Medical
DX: I21.4 Non-ST elevation (NSTEMI) myocardial infarction (principal)
CPT/HCPCS: 36415; 71045; 80053; 82550; 83690; 83735; 84484; 85025; 85610; 85730; 93005; 93010; 96365; 96366; 96368; 96375; 99284; 99285; 99291; 99292; J1644; J2405; J3010

== ENCOUNTER 2019-06-01 14:27 | Emergency (ER) | payer MEDICARE, OTHER, SELFPAY ==
[2019-01-23 21:49] VITALS: BMI 33.3
[2019-06-01] VITALS (13 sets, daily range): BP systolic 114–151; BP diastolic 43–77; PULSE 55–64; RESP 12–20; TEMP 37.1; O2SAT 97–99
--- NOTE | 2019-06-01 14:40 | ED_ITS ---
HPI - SOB/Dyspnea <Zarina Brittanie, DO - Last Filed: 06/03/19 11:58> General Chief Complaint: Chest Pain Stated Complaint: shortness of breath pressure in chest Time Seen by Provider: 06/01/19 14:39 Source: patient Mode of arrival: Ambulatory Limitations: no limitations History of Present Illness HPI Narrative: Patient is an 83-year-old female with history of congestive heart failure coronary artery disease presenting with increasing shortness of breath over the last 4 days. She states that she has been in the hospital she recently had stents at the end of April at [facility]. 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 She says that she has lost 10 lb. However over the last few days she is experiencing orthopnea and increasing shortness of breath with exertion. She has a dry nonproductive cough. Denies any fever chills or body aches. His however she says the breathing is getting worse and yesterday she had some chest discomfort. MD Complaint: shortness of breath and cough Related Data Home Medications Medication Instructions Recorded Confirmed aspirin 81 mg PO DAILY #0 05/14/17 06/01/19 cyanocobalamin (vitamin B-12) 2,000 mcg PO DAILY 11/18/18 06/01/19 nitroglycerin 1 tab SUBLINGUAL [id number] PRN 11/18/18 06/01/19 rosuvastatin 40 mg PO QPM 11/18/18 06/01/19 furosemide 40 mg PO DAILY 01/23/19 06/01/19 losartan 100 mg PO QPM 01/23/19 06/01/19 metoprolol tartrate 12.5 mg PO BID 01/23/19 06/01/19 potassium chloride 10 meq PO DAILY 01/23/19 06/01/19 amlodipine 10 mg PO DAILY 05/03/19 06/01/19 cholecalciferol (vitamin D3) 5,000 unit PO DAILY 05/03/19 06/01/19 [Vitamin D3] clopidogrel 75 mg PO DAILY 05/03/19 06/01/19 escitalopram oxalate 5 mg PO DAILY 05/03/19 06/01/19 alprazolam 0.5 mg PO TID PRN 06/01/19 06/01/19 lidocaine 1 patch TOPICAL DAILY PRN 06/01/19 06/01/19 Allergies Allergy/AdvReac Type Severity Reaction Status Date / Time erythromycin base Allergy Severe Rash Verified 06/01/19 20:17 [ERYTHROMYCIN BASE] ibuprofen [IBUPROFEN] Allergy Severe Rash Verified 06/01/19 20:17 Iodinated Contrast Media Allergy Severe Unconscious Verified 06/01/19 20:17 [IODINATED CONTRAST- ORAL AND IV DYE] morphine [MORPHINE] Allergy Severe Rash Verified 06/01/19 20:17 naproxen [From ALEVE] Allergy Severe Rash Verified 06/01/19 20:17 telmisartan [TELMISARTAN] Allergy Severe Rash Verified 06/01/19 20:17 Review of Systems <Zarina Gu DO - Last Filed: 06/03/19 11:58> Review of Systems ROS Unobtainable: All systems reviewed & are unremarkable except as noted in HPI and below Constitutional Constitutional: Denies chills, Denies fever(s), Denies lethargy and Denies weakness Eyes Eyes: Denies change in vision, Denies eye discharge, Denies irritation and Denies loss of vision ENT Ears, Nose, Mouth, and Throat: Denies change in voice, Denies neck pain and Denies sore throat Cardiovascular Cardiovascular: Denies chest pain, Denies irregular heart rhythm, Denies lightheadedness, Denies palpitations and Denies orthopnea Respiratory Respiratory: Reports as per HPI Musculoskeletal Musculoskeletal: Denies neck pain Integumentary/Breasts Skin/Breast: Denies pruritus, Denies erythema, Denies rash and Denies wounds Neurologic Neurologic: Denies loss of vision and Denies weakness Endocrine Endocrine: Denies palpitations Patient History <Zarina Gu DO - Last Filed: 06/03/19 11:58> Medical History Cardiac arrest (Acute) Chest pain (Inactive) Coronary artery disease (Acute) Hyperlipidemia (Acute) Hypertension (Acute) Left hamstring muscle strain (Inactive) UTI (urinary tract infection) (Inactive) Surgical History History of appendectomy (Acute) History of breast implant removal (Acute) History of breast surgery (Acute) History of cholecystectomy (Acute) History of coronary artery stent placement (Acute) History of total abdominal hysterectomy (Acute) Social History household members: children Smoking Status: Never smoker Smoking Status: Never smoker alcohol intake frequency: holidays/special occasions only Substance Use Type: does not use Exam <Zarina Gu DO - Last Filed: 06/03/19 11:58> Initial Vital Signs Initial Vital Signs: Vital Signs Temperature 98.7 F 06/01/19 14:30 Pulse Rate 59 L 06/01/19 14:30 Respiratory Rate 20 06/01/19 14:30 Blood Pressure 151/62 H 06/01/19 14:30 Pulse Oximetry 99 06/01/19 14:30 GENERAL: [Well-appearing, well-nourished] and in [no acute] distress. HEENT: Head atraumatic,EOMI, pupils reactive, face symmetric, [moist] mucous membranes CARDIOVASCULAR: Regular rate and rhythm without murmurs, rubs or gallops. RESPIRATORY: Breath sounds equal bilaterally, no wheezes rales or rhonchi. ABDOMEN: Soft, nontender. Normoactive bowel sounds all 4 quadrants. No guarding or rebound. EXTREMITIES: Normal range of motion, no clubbing or edema. Neurovascularly intact NEUROLOGICAL: Alert and oriented x4.Normal gait and speech. SKIN: Warm, dry, no laceration, no petechiae, no rashes or lesions. <Ankur Nunez DO - Last Filed: 06/01/19 23:18> Initial Vital Signs Initial Vital Signs: Vital Signs Temperature 98.7 F 06/01/19 14:30 Pulse Rate 59 L 06/01/19 14:30 Respiratory Rate 06/01/19 14:30 Blood Pressure 151/62 H 06/01/19 14:30 Pulse Oximetry 99 06/01/19 14:30 Course <Zarina Gu DO - Last Filed: 06/03/19 11:58> Orders Ordered: Discontinued Medications Heparin Sodium (Porcine) (Heparin) 6,900 unit 80 unit/kg (6900 unit) IV NOW ONE Stop: 06/01/19 21:29 Last Admin: 06/01/19 21:56 Dose: 6,900 unit Documented by: ALFREDITO Heparin Sodium/Dextrose (Heparin Drip) 25,000 unit in 500 mls @ 30.996 mls/hr IV CONT AFIA; Protocol Last Admin: 06/01/19 21:45 Dose: 18 units/kg/hr, 30.996 mls/hr Documented by: ALFREDITO Ondansetron HCl (Zofran Odt) 4 mg SL NOW ONE Stop: 06/01/19 16:39 Last Admin: 06/01/19 17:03 Dose: 4 mg Documented by: ALFREDITO Consultations Consultation #1: Dr. Erazo, cardiology at [facility] updated patient's symptoms and test results including concern for increasing shortness of breath with exertion as cardiac equivalent with recent stents. She states at this time recommends repeat echocardiogram however at this time no need for transfer, unclear exactly what is going on with patient. Request serial tropon ins. Time: 20:06 Vital Signs Vital signs: Vital Signs - 8 hr 06/01/19 16:00 06/01/19 16:30 06/01/19 17:00 Pulse Rate 57 L 60 60 Respiratory Rate 14 16 14 Blood Pressure [Left Arm] 134/46 L 147/51 H 139/47 L Pulse Oximetry 99 98 97 06/01/19 17:30 06/01/19 18:30 06/01/19 19:00 Pulse Rate 58 L 58 L 64 Respiratory Rate 12 14 15 Blood Pressure [Left Arm] 125/50 L 126/50 L 142/43 H Pulse Oximetry 98 97 97 06/01/19 20:21 06/01/19 21:16 06/01/19 22:00 Pulse Rate 63 58 L 55 L Respiratory Rate 14 13 12 Blood Pressure [Left Arm] 135/49 L 147/49 H 114/77 Pulse Oximetry 98 98 99 06/01/19 22:30 Pulse Rate 55 L Respiratory Rate 16 Blood Pressure [Left Arm] 122/45 L Pulse Oximetry 98 <Ankur Nunez, - Last Filed: 06/01/19 23:18> Course Course Narrative: Patient received in sign-out from Dr. Gu. I have performed an independent history and physical. Repeat troponin is unremarkable, D-dimer is elevated and considered positive even when age corrected and therefore treatment dose of heparin is initiated given her profound allergy to IV contrast we elect to begin treatment here and hospitalist at [facility] will administer prophylactic steroid and antihistamine prior to imaging once there. Have re-contacted the hospitalist at [facility] and they're happy to accept Orders Ordered: Discontinued Medications Heparin Sodium (Porcine) (Heparin) 6,900 unit 80 unit/kg (6900 unit) IV NOW ONE Stop: 06/01/19 21:29 Last Admin: 06/01/19 21:56 Dose: 6,900 unit Documented by: ALFREDITO Heparin Sodium/Dextrose (Heparin Drip) 25,000 unit in 500 mls @ 30.996 mls/hr IV CONT AFIA; Protocol Last Admin: 06/01/19 21:45 Dose: 18 units/kg/hr, 30.996 mls/hr Documented by: ALFREDITO Ondansetron HCl (Zofran Odt) 4 mg SL NOW ONE Stop: 06/01/19 16:39 Last Admin: 06/01/19 17:03 Dose: 4 mg Documented by: ALFREDITO Vital Signs Vital signs: Vital Signs - 8 hr 06/01/19 16:00 06/01/19 16:30 06/01/19 17:00 Pulse Rate 57 L 60 60 Respiratory Rate 14 16 14 Blood Pressure [Left Arm] 134/46 L 147/51 H 139/47 L Pulse Oximetry 99 98 97 06/01/19 17:30 06/01/19 18:30 06/01/19 19:00 Pulse Rate 58 L 58 L 64 Respiratory Rate 12 14 15 Blood Pressure [Left Arm] 125/50 L 126/50 L 142/43 H Pulse Oximetry 98 97 97 06/01/19 20:21 06/01/19 21:16 06/01/19 22:00 Pulse Rate 63 58 L 55 L Respiratory Rate 14 13 12 Blood Pressure [Left Arm] 135/49 L 147/49 H 114/77 Pulse Oximetry 98 98 99 06/01/19 22:30 Pulse Rate 55 L Respiratory Rate 16 Blood Pressure [Left Arm] 122/45 L Pulse Oximetry 98 MDM - SOB/Dyspnea <Zarina Gu DO - Last Filed: 06/03/19 11:58> Lab Data Attestation: I reviewed the patient's lab results. Result diagrams: 06/01/19 15:57 06/01/19 15:57 Labs: Lab Results 06/01/19 06/01/19 06/01/19 Range/Units 15:19 15:53 15:57 WBC 7.2 (4.5-11.0) X10^3/uL RBC 5.04 (4.0-5.2) X10^6/uL Hgb 14.3 (12.0-16.0) g/dL Hct 42.8 (36-46) % MCV 84.9 (80-100) fL MCH 28.3 (26-34) PG MCHC 33.3 (30-36) % RDW 15.3 H (11.6-14.8) % Plt Count 244 (150-400) X10^3/uL Neut % (Auto) 47.0 L (50-75) % Lymph % (Auto) 41.2 H (25-40) % [place] % (Auto) 9.2 (3-14) % Eos % (Auto) 2.1 (2-4) % Baso % (Auto) 0.5 (0-2) % Neut # (Auto) 3400 (2261-9816) /uL Lymph # (Auto) 3000 (2850-3379) /uL [place] # (Auto) 700 (0-900) /uL Eos # (Auto) 100 (0-450) /uL Baso # (Auto) 0 (0-100) /uL PT (10.1-12.7) SECONDS INR (0.9-1.3) APTT (26.4-36.2) SECONDS D-Dimer 896 H (<230) ng/mL Sodium (137-145) mmol/L Potassium (3.4-5.1) mmol/L Chloride (98-107) mmol/L Carbon Dioxide (22-32) mmol/L BUN (7-17) mg/dL Creatinine (0.52-1.04) mg/dL Estimated GFR (>60) mL/min BUN/Creatinine Ratio (6-22) Glucose (80-110) mg/dL Calcium (8.4-10.2) mg/dL Magnesium (1.6-2.3) mg/dL Total Bilirubin (0.2-1.3) mg/dL AST (14-36) IU/L ALT (<35) IU/L Alkaline Phosphatase (38-126) U/L Total Creatine Kinase (30-135) U/L CK-MB (CK-2) CK-MB (CK-2) Rel Index Troponin I (0.01-0.034) ng/mL B-Natriuretic Peptide 144 H (<100) Total Protein (6.3-8.2) g/dL Albumin (3.5-5.0) g/dL Globulin (1.7-4.1) g/dL Albumin/Globulin Ratio (1.0-2.8) Lipase (23-300) U/L Influenza A (RT-PCR) Flu a negative (NEGATIVE) Influenza B (RT-PCR) Flu b negative (NEGATIVE) 06/01/19 06/01/19 06/01/19 Range/Units 15:57 15:57 19:59 WBC (4.5-11.0) X10^3/uL RBC (4.0-5.2) X10^6/uL Hgb (12.0-16.0) g/dL Hct (36-46) % MCV (80-100) fL MCH (26-34) PG MCHC (30-36) % RDW (11.6-14.8) % Plt Count (150-400) X10^3/uL Neut % (Auto) (50-75) % Lymph % (Auto) (25-40) % [place] % (Auto) (3-14) % Eos % (Auto) (2-4) % Baso % (Auto) (0-2) % Neut # (Auto) (0098-3655) /uL Lymph # (Auto) (1213-0167) /uL [place] # (Auto) (0-900) /uL Eos # (Auto) (0-450) /uL Baso # (Auto) (0-100) /uL PT 12.6 (10.1-12.7) SECONDS INR 1.1 (0.9-1.3) APTT 30 D (26.4-36.2) SECONDS D-Dimer (<230) ng/mL Sodium 144 (137-145) mmol/L Potassium 4.5 (3.4-5.1) mmol/L Chloride 103 (98-107) mmol/L Carbon Dioxide 31 (22-32) mmol/L BUN 18 H (7-17) mg/dL Creatinine 1.00 (0.52-1.04) mg/dL Estimated GFR 53.2 L (>60) mL/min BUN/Creatinine Ratio 18.0 (6-22) Glucose 95 (80-110) mg/dL Calcium 10.0 (8.4-10.2) mg/dL Magnesium 2.2 (1.6-2.3) mg/dL Total Bilirubin 0.6 (0.2-1.3) mg/dL AST 28 (14-36) IU/L ALT 10 (<35) IU/L Alkaline Phosphatase 60 (38-126) U/L Total Creatine Kinase 35 (30-135) U/L CK-MB (CK-2) TNP CK-MB (CK-2) Rel Index TNP Troponin I 0.016 0.016 (0.01-0.034) ng/mL B-Natriuretic Peptide (<100) Total Protein 7.9 (6.3-8.2) g/dL Albumin 4.6 (3.5-5.0) g/dL Globulin 3.3 (1.7-4.1) g/dL Albumin/Globulin Ratio 1.4 (1.0-2.8) Lipase 132 (23-300) U/L Influenza A (RT-PCR) (NEGATIVE) Influenza B (RT-PCR) (NEGATIVE) Imaging Data Chest x-ray: Radiologist's Impression: PROCEDURE: XR CHEST 1V INDICATIONS: chest pain TECHNIQUE: One view of the chest was acquired. COMPARISON: [facility], CT, CT ANGIO CHEST PE PROTOCOL, 03/21/2019, 2:38. [facility], CR, XR CHEST 1V, 05/03/2019, 12:36. [facility], CR, XR CHEST 1V, 02/22/2019, 13:41. FINDINGS: Surgical changes and devices: None. Lungs and pleura: Lungs are clear, yet mildly hyperexpanded. No pleural effusions or pneumothorax. Mediastinum: The aorta is prominent tortuous. Heart size is mildly enlarged. Bones and chest wall: No suspicious bony lesions. Age-appropriate bony degenerative changes are seen. Overlying soft tissues appear unremarkable. IMPRESSION: Mild cardiomegaly. Hyperexpanded lungs. Dictated by: Venkat Tucker M.D. on 06/01/2019 at 14:00 US - DVT: Radiologist's Impression: PROCEDURE: US PERIPH VENOUS UP EXTREM RT INDICATIONS: SOB; HX RUE DVT 01-31 TECHNIQUE: Real-time imaging, as well as color and pulse Doppler interrogation, was performed of the right upper extremity deep veins from the inferior neck to the antecubital fossa. COMPARISON: [facility], [facility] VENOUS UP EXTREM RT, 02/22/2019, 14:04. FINDINGS: The internal jugular vein, visualized portions of the subclavian vein, axillary, and brachial veins are free of intraluminal thrombus. Where p hysically possible, the veins are normally compressible. Color and pulse Doppler demonstrate normal intraluminal flow, with expected phasicity and pulsatility. Additional scanning of the cephalic and basilic veins of the superficial system demonstrate normal compressibility, without thrombus. IMPRESSION: No DVT found over the right upper extremity. Dictated by: Lino Ruiz M.D. on 06/01/2019 at 20:09 PROCEDURE: US PERIP VENOUS LOW EXTREM BI INDICATIONS: SOB TECHNIQUE: Real-time imaging, as well as color and pulse Doppler interrogation, were performed of the deep veins of both legs from the inguinal ligament to the popliteal fossa. COMPARISON: [facility], [facility] VENOUS LOW EXTREM BI, 02/22/2019, 14:25. [facility] PERIP VENOUS LOW EXTREM BI, 09/20/2018, 9:36. FINDINGS: Right: The common femoral, femoral and popliteal veins are normally compressible, and free of intraluminal thrombus. Color and pulse Doppler demonstrate normal phasic intravascular flow. There is normal augmentation response to distal compression maneuver. Left: The common femoral, femoral and popliteal veins are normally compressible, and free of intraluminal thrombus. Color and pulse Doppler demonstrate normal phasic intravascular flow. There is normal augmentation response to distal compression maneuver. IMPRESSION: No DVT found bilaterally over the lower extremities. Dictated by: Lino Ruiz M.D. on 06/01/2019 at 20:09 ECG Data Attestation: I personally reviewed and interpreted this ECG as follows: Prior ECG tracings: available for review Interpretation: EKG 1. Normal sinus rhythm rate 57 p.r. interval 181, QRS [address] changes similar to previous EKG EKG 2. Normal sinus rhythm rate 58 p.r. interval 191 QRS [address] changes similar to prior MDM Narrative Medical decision making narrative: Patient has BNP which is at her baseline just above 100 she does not have significant respiratory distress at rest no evidence of pulmonary edema on x-ray. As patient is extremely hard IV start lab was able to draw her however no IV is been started. Concern for possible PE with known right upper extremity DVT and recent hospital stay. She states that she had cardiac arrest and his anaphylactic reactions to iodine and IV contrast in the past. She says that she has had some and been okay with treatment however last month when they did this 10 she had a cardiac arrest is unclear if it was due to the procedure or the dye. Ultrasounds of bilateral lower extremities and right upper extremity have been done all are negative. I have gone in to re-evaluate patient. She states now she feels her heart is flip-flopping around she has some chest discomfort. She remains in normal sinus rhythm without PVCs on the monitor with a rate of 60. Repeat EKG shows no change. 8:15pm Lino URIBE, Hospitalist, she recommend transfer to [facility] for stress test 8:22pm Dr. Kelly hospitalist refuses patient until dimer and troponin and heparin have been started. Signed out to Dr. Nunez <Ankur Nunez, DO - Last Filed: 06/01/19 23:18> Lab Data Labs: Lab Results 06/01/19 06/01/19 06/01/19 Range/Units 15:19 15:53 15:57 WBC 7.2 (4.5-11.0) X10^3/uL RBC 5.04 (4.0-5.2) X10^6/uL Hgb 14.3 (12.0-16.0) g/dL Hct 42.8 (36-46) % MCV 84.9 (80-100) fL MCH 28.3 (26-34) PG MCHC 33.3 (30-36) % RDW 15.3 H (11.6-14.8) % Plt Count 244 (150-400) X10^3/uL Neut % (Auto) 47.0 L (50-75) % Lymph % (Auto) 41.2 H (25-40) % [place] % (Auto) 9.2 (3-14) % Eos % (Auto) 2.1 (2-4) % Baso % (Auto) 0.5 (0-2) % Neut # (Auto) 3400 (7289-9513) /uL Lymph # (Auto) 3000 (3733-9119) /uL [place] # (Auto) 700 (0-900) /uL Eos # (Auto) 100 (0-450) /uL Baso # (Auto) 0 (0-100) /uL PT (10.1-12.7) SECONDS INR (0.9-1.3) APTT (26.4-36.2) SECONDS D-Dimer 896 H (<230) ng/mL Sodium (137-145) mmol/L Potassium (3.4-5.1) mmol/L Chloride (98-107) mmol/L Carbon Dioxide (22-32) mmol/L BUN (7-17) mg/dL Creatinine (0.52-1.04) mg/dL Estimated GFR (>60) mL/min BUN/Creatinine Ratio (6-22) Glucose (80-110) mg/dL Calcium (8.4-10.2) mg/dL Magnesium (1.6-2.3) mg/dL Total Bilirubin (0.2-1.3) mg/dL AST (14-36) IU/L ALT (<35) IU/L Alkaline Phosphatase (38-126) U/L Total Creatine Kinase (30-135) U/L CK-MB (CK-2) CK-MB (CK-2) Rel Index Troponin I (0.01-0.034) ng/mL B-Natriuretic Peptide 144 H (<100) Total Protein (6.3-8.2) g/dL Albumin (3.5-5.0) g/dL Globulin (1.7-4.1) g/dL Albumin/Globulin Ratio (1.0-2.8) Lipase (23-300) U/L Influenza A (RT-PCR) Flu a negative (NEGATIVE) Influenza B (RT-PCR) Flu b negative (NEGATIVE) 06/01/19 06/01/19 06/01/19 Range/Units 15:57 15:57 19:59 WBC (4.5-11.0) X10^3/uL RBC (4.0-5.2) X10^6/uL Hgb (12.0-16.0) g/dL Hct (36-46) % MCV (80-100) fL MCH (26-34) PG MCHC (30-36) % RDW (11.6-14.8) % Plt Count (150-400) X10^3/uL Neut % (Auto) (50-75) % Lymph % (Auto) (25-40) % [place] % (Auto) (3-14) % Eos % (Auto) (2-4) % Baso % (Auto) (0-2) % Neut # (Auto) (3749-2440) /uL Lymph # (Auto) (9869-7796) /uL [place] # (Auto) (0-900) /uL Eos # (Auto) (0-450) /uL Baso # (Auto) (0-100) /uL PT 12.6 (10.1-12.7) SECONDS INR 1.1 (0.9-1.3) APTT 30 D (26.4-36.2) SECONDS D-Dimer (<230) ng/mL Sodium 144 (137-145) mmol/L Potassium 4.5 (3.4-5.1) mmol/L Chloride 103 (98-107) mmol/L Carbon Dioxide 31 (22-32) mmol/L BUN 18 H (7-17) mg/dL Creatinine 1.00 (0.52-1.04) mg/dL Estimated GFR 53.2 L (>60) mL/min BUN/Creatinine Ratio 18.0 (6-22) Glucose 95 (80-110) mg/dL Calcium 10.0 (8.4-10.2) mg/dL Magnesium 2.2 (1.6-2.3) mg/dL Total Bilirubin 0.6 (0.2-1.3) mg/dL AST 28 (14-36) IU/L ALT 10 (<35) IU/L Alkaline Phosphatase 60 (38-126) U/L Total Creatine Kinase 35 (30-135) U/L CK-MB (CK-2) TNP CK-MB (CK-2) Rel Index TNP Troponin I 0.016 0.016 (0.01-0.034) ng/mL B-Natriuretic Peptide (<100) Total Protein 7.9 (6.3-8.2) g/dL Albumin 4.6 (3.5-5.0) g/dL Globulin 3.3 (1.7-4.1) g/dL Albumin/Globulin Ratio 1.4 (1.0-2.8) Lipase 132 (23-300) U/L Influenza A (RT-PCR) (NEGATIVE) Influenza B (RT-PCR) (NEGATIVE) Discharge Plan Departure Patient Disposition: [facility] Clinical Impression: Atypical chest pain Discharge Date/Time: 06/01/19 23:35 Prescriptions: No Action aspirin 81 MG tablet,delayed release (DR/EC) 81 mg PO DAILY Qty: 0 RF: 0 clopidogrel 75 mg tablet 75 mg PO DAILY RF: 0 amlodipine 10 mg tablet 10 mg PO DAILY RF: 0 escitalopram oxalate 5 mg tablet 5 mg PO DAILY RF: 0 cholecalciferol (vitamin D3) [Vitamin D3] 5,000 unit Tablet 5,000 unit PO DAILY RF: 0 nitroglycerin 0.4 mg tablet, sublingual 1 tab sublingual [id number] PRN (Reason: Chest Pain) RF: 0 rosuvastatin 40 mg tablet 40 mg PO QPM RF: 0 cyanocobalamin (vitamin B-12) 2,000 mcg Tablet 2,000 mcg PO DAILY RF: 0 potassium chloride 10 mEq capsule, extended release 10 meq PO DAILY RF: 0 furosemide 20 mg tablet 40 mg PO DAILY RF: 0 losartan 100 mg tablet 100 mg PO QPM RF: 0 metoprolol tartrate 25 mg tablet 12.5 mg PO BID RF: 0 alprazolam 0.5 mg Tablet 0.5 mg PO TID PRN (Reason: Anxiety) RF: 0 lidocaine 5 % Adhesive Patch,Medicated 1 patch TOPICAL DAILY PRN (Reason: Pain (Scale Score 1-3)) RF: 0 Referrals: Zoe Bass PA-C [Primary Care Provider] -
--- NOTE | 2019-06-01 14:41 | DI.RAD.S_ITS ---
PROCEDURE: XR CHEST 1V INDICATIONS: chest pain TECHNIQUE: One view of the chest was acquired. COMPARISON: [facility], CT, CT ANGIO CHEST PE PROTOCOL, 03/21/2019, 2:38. [facility], CR, XR CHEST 1V, 05/03/2019, 12:36. [facility], CR, XR CHEST 1V, 02/22/2019, 13:41. FINDINGS: Surgical changes and devices: None. Lungs and pleura: Lungs are clear, yet mildly hyperexpanded. No pleural effusions or pneumothorax. Mediastinum: The aorta is prominent tortuous. Heart size is mildly enlarged. Bones and chest wall: No suspicious bony lesions. Age-appropriate bony degenerative changes are seen. Overlying soft tissues appear unremarkable. IMPRESSION: Mild cardiomegaly. Hyperexpanded lungs. Dictated by: Venkat Tucker M.D. on 06/01/2019 at 14:00 Approved by: Venkat Tucker M.D. on 06/01/2019 at 14:01
[2019-06-01 16:01] LABS: Influenza A - CEPHEID Flu A NEGATIVE (NEGATIVE); Influenza B - CEPHEID Flu B NEGATIVE (NEGATIVE)
[2019-06-01 16:18] LABS: INR 1.1 (0.9-1.3); Prothrombin Time 12.6 SECONDS (10.1-12.7)
[2019-06-01 16:20] LABS: PTT Partial Thromboplastin Tim 30 SECONDS (26.4-36.2)
[2019-06-01 16:22] LABS: Add Manual Diff / Slide Review NO; Basophils Absolute Auto 0 /uL (0-100); Basophils Percent Auto 0.5 % (0-2); Eosinophils Absolute Auto 100 /uL (0-450); Eosinophils Percent Auto 2.1 % (2-4); Hematocrit 42.8 % (36-46); Hemoglobin 14.3 g/dL (12.0-16.0); Lymphocytes Absolute Auto 3000 /uL (1100-4500); Lymphocytes Percent Auto 41.2 % (25-40); Mean Corpuscular HGB Conc 33.3 % (30-36); Mean Corpuscular Hemoglobin 28.3 PG (26-34); Mean Corpuscular Volume 84.9 fL (80-100); Monocytes Absolute Auto 700 /uL (0-900); Monocytes Percent Auto 9.2 % (3-14); Neutrophils Absolute Auto 3400 /uL (1500-7000); Platelet Count 244 X10^3/uL (150-400); Red Blood Cell Count 5.04 X10^6/uL (4.0-5.2); Red Cell Distribution Width 15.3 % (11.6-14.8); White Blood Cell Count 7.2 X10^3/uL (4.5-11.0)
[2019-06-01 16:25] LABS: Alanine Aminotransferase 10 IU/L (<35); Albumin 4.6 g/dL (3.5-5.0); Albumin Globulin Ratio 1.4 (1.0-2.8); Alkaline Phosphatase 60 U/L (38-126); Aspartate Aminotransferase 28 IU/L (14-36); Bilirubin Total 0.6 mg/dL (0.2-1.3); Blood Urea Nitrogen 18 mg/dL (7-17); Carbon Dioxide 31 mmol/L (22-32); Chloride 103 mmol/L (98-107); Creatine Kinase 35 U/L (30-135); Estimated Glomerular Filt Rate 53.2 mL/min (>60); Globulin 3.3 g/dL (1.7-4.1); Glucose 95 mg/dL (80-110); HEMOLYSIS < 15 (0-50); Lipase 132 U/L (23-300); Magnesium 2.2 mg/dL (1.6-2.3); Potassium 4.5 mmol/L (3.4-5.1); Sodium 144 mmol/L (137-145); Total Protein 7.9 g/dL (6.3-8.2)
[2019-06-01 16:36] LABS: Troponin I 0.016 ng/mL (0.01-0.034)
[2019-06-01] MEDS: ONDANSETRON 4 MG ODT SL (17:03)
[2019-06-01 17:06] LABS: B Type Natriuretic Peptide 144 (<100)
--- NOTE | 2019-06-01 18:11 | DI.US.S_ITS ---
PROCEDURE: US PERIP VENOUS UP EXTREM RT INDICATIONS: SOB; HX RUE DVT 01-31 TECHNIQUE: Real-time imaging, as well as color and pulse Doppler interrogation, was performed of the right upper extremity deep veins from the inferior neck to the antecubital fossa. COMPARISON: [facility], , [place] [facility] VENOUS UP EXTREM RT, 02/22/2019, 14:04. FINDINGS: The internal jugular vein, visualized portions of the subclavian vein, axillary, and brachial veins are free of intraluminal thrombus. Where physically possible, the veins are normally compressible. Color and pulse Doppler demonstrate normal intraluminal flow, with expected phasicity and pulsatility. Additional scanning of the cephalic and basilic veins of the superficial system demonstrate normal compressibility, without thrombus. IMPRESSION: No DVT found over the right upper extremity. Dictated by: Lino Ruiz M.D. on 06/01/2019 at 20:09 Approved by: Lino Ruiz M.D. on 06/01/2019 at 20:09
--- NOTE | 2019-06-01 18:11 | DI.US.S_ITS ---
PROCEDURE: US PERIP VENOUS LOW EXTREM BI INDICATIONS: SOB TECHNIQUE: Real-time imaging, as well as color and pulse Doppler interrogation, were performed of the deep veins of both legs from the inguinal ligament to the popliteal fossa. COMPARISON: [facility], [facility] VENOUS LOW EXTREM BI, 02/22/2019, 14:25. [facility], [facility] VENOUS LOW EXTREM BI, 09/20/2018, 9:36. FINDINGS: Right: The common femoral, femoral and popliteal veins are normally compressible, and free of intraluminal thrombus. Color and pulse Doppler demonstrate normal phasic intravascular flow. There is normal augmentation response to distal compression maneuver. Left: The common femoral, femoral and popliteal veins are normally compressible, and free of intraluminal thrombus. Color and pulse Doppler demonstrate normal phasic intravascular flow. There is normal augmentation response to distal compression maneuver. IMPRESSION: No DVT found bilaterally over the lower extremities. Dictated by: Lino Ruiz M.D. on 06/01/2019 at 20:09 Approved by: Lino Ruiz M.D. on 06/01/2019 at 20:09
[2019-06-01 20:49] LABS: Troponin I 0.016 ng/mL (0.01-0.034)
[2019-06-01 21:04] LABS: D Dimer 896 ng/mL (<230)
[2019-06-01] MEDS: HEPARIN DRIP 25,000 UNIT/500 ML IV.SOLN 30.996 UNIT IV (21:45)
[2019-06-01] MEDS: HEPARIN 5,000 UNIT/ML VIAL 6900 UNIT IV (21:56)
--- NOTE | 2019-06-30 01:09 | PC.NURSE ---
Heparin @ 30.99 mLs/hr infusion stopped by [facility] at 2334 hours, continued by ALS.
== END 2019-06-01 23:35 | disposition short-term general hospital (02) ==
PROVIDERS: Emergency Medicine; Emergency Provider Emergency Medicine; Family Provider Internal Medicine; PCP Physician Assistant Medical
DX: R07.89 Other chest pain (principal); R79.89 Other specified abnormal findings of blood chemistry
CPT/HCPCS: 36415; 71045; 80053; 82550; 83690; 83735; 83880; 84484; 85025; 85379; 85610; 85730; 87502; 93005; 93010; 93970; 93971; 96365; 96366; 96375; 99285; J1644

== ENCOUNTER 2019-07-07 11:52 | Emergency (ER) | payer MEDICARE, OTHER, SELFPAY ==
[2019-01-23 21:49] VITALS: BMI 33.3
[2019-07-07] VITALS (18 sets, daily range): BP systolic 111–194; BP diastolic 54–78; PULSE 59–67; RESP 12–25; TEMP 36; O2SAT 94–97
--- NOTE | 2019-07-07 12:01 | PC.NURSE ---
pt left to the restroom.
--- NOTE | 2019-07-07 12:15 | DI.RAD.S_ITS ---
PROCEDURE: XR CHEST 1V INDICATIONS: chest pain TECHNIQUE: One view of the chest was acquired. COMPARISON: None. FINDINGS: Surgical changes and devices: None. Lungs and pleura: Lungs are clear. No pleural effusions or pneumothorax. Mediastinum: Mediastinal contours appear normal. Heart size is enlarged. Bones and chest wall: No suspicious bony lesions. Overlying soft tissues appear unremarkable. IMPRESSION: Cardiomegaly without overt heart failure. As Dictated by: Juventino Acosta M.D. on 07/07/2019 at 12:21 Approved by: Juventino Acosta M.D. on 07/07/2019 at 12:22
[2019-07-07 13:02] LABS: Add Manual Diff / Slide Review NO; Basophils Absolute Auto 0 /uL (0-100); Basophils Percent Auto 0.4 % (0-2); Eosinophils Absolute Auto 0 /uL (0-450); Eosinophils Percent Auto 0.1 % (2-4); Hematocrit 46.1 % (36-46); Hemoglobin 15.4 g/dL (12.0-16.0); Lymphocytes Absolute Auto 1900 /uL (1100-4500); Lymphocytes Percent Auto 16.3 % (25-40); Mean Corpuscular HGB Conc 33.4 % (30-36); Mean Corpuscular Hemoglobin 28.4 PG (26-34); Mean Corpuscular Volume 85.2 fL (80-100); Monocytes Absolute Auto 300 /uL (0-900); Monocytes Percent Auto 2.8 % (3-14); Neutrophils Absolute Auto 9500 /uL (1500-7000); Neutrophils Percent Auto 80.4 % (50-75); Platelet Count 274 X10^3/uL (150-400); Red Blood Cell Count 5.41 X10^6/uL (4.0-5.2); Red Cell Distribution Width 16.9 % (11.6-14.8); White Blood Cell Count 11.8 X10^3/uL (4.5-11.0)
--- NOTE | 2019-07-07 13:12 | ED_ITS ---
HPI - Chest Pain General Chief Complaint: Chest Pain Stated Complaint: Chest Pains, Has Stints Time Seen by Provider: 07/07/19 13:00 Source: patient and family Mode of arrival: Wheelchair Limitations: no limitations History of Present Illness HPI narrative: 83-year-old female nonsmoker with extensive cardiac history including CHF and coronary artery disease with 2 stents placed in her RCA on May 06. She presents today with a chief complaint of multiple near syncopal episodes with lightheadedness and diaphoresis over the past few days and then today anterior chest heaviness which started at about 11:00 a.m. while she was walking in her kitchen. She took 3 nitro which did not help but the discomfort seemed to improve with rest. She denies any radiation but admits to associated symptoms such as shortness of breath, nausea and diaphoresis. She saw her primary care provider a few days ago with complaints of shortness of breath and upon auscultating he noted wheezing and started her on a 16 day taper of prednisone. She states that her shortness of breath has improved. Related Data Home Medications Medication Instructions Recorded Confirmed aspirin 81 mg PO DAILY #0 05/14/17 06/01/19 cyanocobalamin (vitamin B-12) 2,000 mcg PO DAILY 11/18/18 06/01/19 nitroglycerin 1 tab SUBLINGUAL [id number] PRN 11/18/18 06/01/19 rosuvastatin 40 mg PO QPM 11/18/18 06/01/19 furosemide 40 mg PO DAILY 01/23/19 06/01/19 losartan 100 mg PO QPM 01/23/19 06/01/19 metoprolol tartrate 12.5 mg PO BID 01/23/19 06/01/19 potassium chloride 10 meq PO DAILY 01/23/19 06/01/19 amlodipine 10 mg PO DAILY 05/03/19 06/01/19 cholecalciferol (vitamin D3) 5,000 unit PO DAILY 05/03/19 06/01/19 [Vitamin D3] clopidogrel 75 mg PO DAILY 05/03/19 06/01/19 escitalopram oxalate 5 mg PO DAILY 05/03/19 06/01/19 alprazolam 0.5 mg PO TID PRN 06/01/19 06/01/19 lidocaine 1 patch TOPICAL DAILY PRN 06/01/19 06/01/19 Allergies Allergy/AdvReac Type Severity Reaction Status Date / Time erythromycin base Allergy Severe Rash Verified 06/01/19 20:17 [ERYTHROMYCIN BASE] ibuprofen [IBUPROFEN] Allergy Severe Rash Verified 06/01/19 20:17 Iodinated Contrast Media Allergy Severe Unconscious Verified 06/01/19 20:17 [IODINATED CONTRAST- ORAL AND IV DYE] morphine [MORPHINE] Allergy Severe Rash Verified 06/01/19 20:17 naproxen [From ALEVE] Allergy Severe Rash Verified 06/01/19 20:17 telmisartan [TELMISARTAN] Allergy Severe Rash Verified 06/01/19 20:17 Review of Systems Constitutional Constitutional: Denies chills, Denies fatigue, Denies fever(s), Denies frequent falls, Denies lethargy and Denies weakness Eyes Eyes: Denies change in vision, Denies eye discharge, Denies irritation and Denies loss of vision ENT Ears, Nose, Mouth, and Throat: Denies change in voice, Denies dizziness, Denies neck pain, Denies sore throat and Denies throat swelling Cardiovascular Cardiovascular: Reports chest pain, Denies irregular heart rhythm, Denies lightheadedness, Denies palpitations, Reports dyspnea, Reports dyspnea on exertion and Denies orthopnea Respiratory Respiratory: Denies cough, Reports dyspnea, Reports dyspnea on exertion and Denies wheezing Gastrointestinal Gastrointestinal: Denies abdominal pain, Denies change in bowel habits, Denies diarrhea, Denies nausea and Denies vomiting Genitourinary Genitourinary: Denies hematuria, Denies flank pain, Denies urinary incontinence and Denies urinary urgency Musculoskeletal Musculoskeletal: Denies back pain, Denies muscle weakness, Denies neck pain, Denies numbness and Denies tingling Integumentary/Breasts Skin/Breast: Denies pruritus, Denies erythema, Denies rash and Denies wounds Neurologic Neurologic: Denies behavioral changes, Denies confusion, Denies dizziness, Denies frequent falls, Denies loss of vision, Denies numbness, Denies tingling and Denies weakness Psychiatric Psychiatric: Denies anxiety, Denies behavioral changes, Denies confusion, Denies depression, Denies homicidal ideation and Denies suicidal ideation Endocrine Endocrine: Denies fatigue, Denies flushing and Denies palpitations Hematologic/Lymphatic Hematologic/Lymphatic: Denies easy bruising Allergic/Immunologic Allergic/Immunologic: Denies urticaria, Denies throat swelling and Denies wheezing Patient History Social History household members: children Smoking Status: Never smoker Smoking Status: Never smoker alcohol intake frequency: holidays/special occasions only Substance Use Type: does not use Exam Narrative Exam Narrative: GENERAL: [83] year old patient appears stated age. Well- nourished, well-developed patient, in mild distress. Anxious, appears unwell HEAD: Atraumatic. Normocephalic. EYES: Pupils equal round and reactive. Extraocular motions intact. No scleral icterus. No injection or drainage. ENT: Nose without bleeding, purulent drainage. Throat without erythema, tonsillar hypertrophy or exudate. Airway patent. NECK: Trachea midline. Non tender CARDIOVASCULAR: Regular rate and rhythm without murmurs, gallops, or rubs. RESPIRATORY: Clear to auscultation. Breath sounds equal bilaterally. No wheezes, rales, or rhonchi. GASTROINTESTINAL: Abdomen soft, non-tender, nondistended. EXTREMITIES: No edema or joint tenderness. BACK: Nontender without deformity or crepitance. No flank tenderness. NEURO: AOx3. SKIN: No rash or erythema of visible areas Initial Vital Signs Initial Vital Signs: Vital Signs Temperature 96.8 F L 07/07/19 12:01 Pulse Rate 62 07/07/19 12:01 Respiratory Rate 20 07/07/19 12:01 Blood Pressure 111/59 L 07/07/19 12:01 Pulse Oximetry 97 07/07/19 12:01 Course Course Course Narrative: Patient had been improving after nitro but just the exertion getting her to the bedside commode brought her chest pressure back to a 7. Orders Ordered: ED Orders 07/07/19 12:05 EKG-12 Lead Stat 07/07/19 12:15 XR chest 1V Stat 07/07/19 12:45 D Dimer Stat 07/07/19 12:50 Complete Blood Count AUTO DIFF Stat Comprehensive Metabolic Panel Stat Lipase Stat Partial Thromboplastin Time Stat Prothrombin Time INR Stat Troponin & CK Cardiac Panel Stat 07/07/19 13:50 Troponin I Stat 07/07/19 13:54 EKG-12 Lead Stat 07/07/19 18:23 Trop I [Troponin I] Stat 07/07/19 18:26 EKG-12 Lead Stat Nitroglycerin (Nitrostat) 0.4 mg SL [id number] PRN PRN Reason: Chest Pain Last Admin: 07/07/19 15:55 Dose: 0.4 mg Documented by: MEHREEN Discontinued Medications Alprazolam (Xanax) 0.5 mg PO NOW ONE Stop: 07/07/19 15:47 Last Admin: 07/07/19 16:08 Dose: 0.5 mg Documented by: MEHREEN Furosemide (Lasix) 40 mg IV NOW ONE Stop: 07/07/19 16:20 Last Admin: 07/07/19 16:25 Dose: 40 mg Documented by: MEHREEN Metoprolol Tartrate (Lopressor) 5 mg IV Q5M AFIA Stop: 07/07/19 15:11 Last Admin: 07/07/19 16:21 Dose: Not Given Documented by: Admin: 07/07/19 16:21 Dose: Not Given Documented by: Admin: 07/07/19 16:21 Dose: Not Given Documented by: MEHREEN Vital Signs Vital signs: Vital Signs - 8 hr 07/07/19 12:01 07/07/19 13:56 07/07/19 14:00 Temperature 96.8 F L Pulse Rate 62 59 L 59 L Respiratory Rate 20 16 14 Blood Pressure 111/59 L Blood Pressure [Right Arm] 194/77 H 158/72 H Pulse Oximetry 97 96 95 07/07/19 14:30 07/07/19 15:00 07/07/19 15:55 Temperature Pulse Rate 60 61 62 Respiratory Rate 12 13 Blood Pressure 185/78 H Blood Pressure [Right Arm] 178/76 H 183/77 H Pulse Oximetry 94 95 07/07/19 16:00 07/07/19 16:02 07/07/19 16:10 Temperature Pulse Rate 67 67 64 Respiratory Rate 18 16 19 Blood Pressure Blood Pressure [Right Arm] 120/54 L 111/55 L 151/71 H Pulse Oximetry 97 96 07/07/19 16:13 07/07/19 16:25 07/07/19 16:30 Temperature Pulse Rate 63 62 63 Respiratory Rate 18 21 25 H Blood Pressure Blood Pressure [Right Arm] 116/68 151/73 H 146/67 H Pulse Oximetry 96 97 96 07/07/19 16:45 07/07/19 17:00 07/07/19 17:15 Temperature Pulse Rate 61 61 62 Respiratory Rate 16 16 16 Blood Pressure Blood Pressure [Right Arm] 148/72 H 133/67 137/65 Pulse Oximetry 95 95 96 07/07/19 17:45 07/07/19 18:06 07/07/19 18:07 Temperature Pulse Rate 59 L 60 59 L Respiratory Rate 16 16 16 Blood Pressure Blood Pressure [Right Arm] 132/60 133/62 152/70 H Pulse Oximetry 97 97 97 MDM - Chest Pain Lab Data Result diagrams: 07/07/19 12:50 07/07/19 12:50 Labs: Lab Results 07/07/19 07/07/19 07/07/19 Range/Units 12:45 12:50 12:50 WBC 11.8 H (4.5-11.0) X10^3/uL RBC 5.41 H (4.0-5.2) X10^6/uL Hgb 15.4 (12.0-16.0) g/dL Hct 46.1 H (36-46) % MCV 85.2 (80-100) fL MCH 28.4 (26-34) PG MCHC 33.4 (30-36) % RDW 16.9 H (11.6-14.8) % Plt Count 274 (150-400) X10^3/uL Neut % (Auto) 80.4 H (50-75) % Lymph % (Auto) 16.3 L (25-40) % [place] % (Auto) 2.8 L (3-14) % Eos % (Auto) 0.1 L (2-4) % Baso % (Auto) 0.4 (0-2) % Neut # (Auto) 9500 H (7860-2642) /uL Lymph # (Auto) 1900 (0566-2093) /uL [place] # (Auto) 300 (0-900) /uL Eos # (Auto) 0 (0-450) /uL Baso # (Auto) 0 (0-100) /uL PT 12.1 (10.1-12.7) SECONDS INR 1.0 (0.9-1.3) APTT 25 L D (26.4-36.2) SECONDS D-Dimer 680 H (<230) ng/mL Sodium (137-145) mmol/L Potassium (3.4-5.1) mmol/L Chloride (98-107) mmol/L Carbon Dioxide (22-32) mmol/L BUN (7-17) mg/dL Creatinine (0.52-1.04) mg/dL Estimated GFR (>60) mL/min BUN/Creatinine Ratio (6-22) Glucose (80-110) mg/dL Calcium (8.4-10.2) mg/dL Total Bilirubin (0.2-1.3) mg/dL AST (14-36) IU/L ALT (<35) IU/L Alkaline Phosphatase (38-126) U/L Total Creatine Kinase (30-135) U/L CK-MB (CK-2) CK-MB (CK-2) Rel Index Troponin I (0.01-0.034) ng/mL Total Protein (6.3-8.2) g/dL Albumin (3.5-5.0) g/dL Globulin (1.7-4.1) g/dL Albumin/Globulin Ratio (1.0-2.8) Lipase (23-300) U/L 07/07/19 07/07/19 07/07/19 Range/Units 12:50 13:50 18:23 WBC (4.5-11.0) X10^3/uL RBC (4.0-5.2) X10^6/uL Hgb (12.0-16.0) g/dL Hct (36-46) % MCV (80-100) fL MCH (26-34) PG MCHC (30-36) % RDW (11.6-14.8) % Plt Count (150-400) X10^3/uL Neut % (Auto) (50-75) % Lymph % (Auto) (25-40) % [place] % (Auto) (3-14) % Eos % (Auto) (2-4) % Baso % (Auto) (0-2) % Neut # (Auto) (3535-9429) /uL Lymph # (Auto) (4988-6867) /uL [facility] # (Auto) (0-900) /uL Eos # (Auto) (0-450) /uL Baso # (Auto) (0-100) /uL PT (10.1-12.7) SECONDS INR (0.9-1.3) APTT (26.4-36.2) SECONDS D-Dimer (<230) ng/mL Sodium 138 (137-145) mmol/L Potassium 4.9 (3.4-5.1) mmol/L Chloride 99 (98-107) mmol/L Carbon Dioxide 30 (22-32) mmol/L BUN 26 H (7-17) mg/dL Creatinine 0.90 (0.52-1.04) mg/dL Estimated GFR > 60.0 (>60) mL/min BUN/Creatinine Ratio 28.9 H (6-22) Glucose 141 H (80-110) mg/dL Calcium 9.7 (8.4-10.2) mg/dL Total Bilirubin 0.6 (0.2-1.3) mg/dL AST 41 H (14-36) IU/L ALT 14 (<35) IU/L Alkaline Phosphatase 46 (38-126) U/L Total Creatine Kinase 22 L (30-135) U/L CK-MB (CK-2) TNP CK-MB (CK-2) Rel Index TNP Troponin I < 0.012 < 0.012 < 0.012 (0.01-0.034) ng/mL Total Protein 7.7 (6.3-8.2) g/dL Albumin 4.5 (3.5-5.0) g/dL Globulin 3.2 (1.7-4.1) g/dL Albumin/Globulin Ratio 1.4 (1.0-2.8) Lipase 168 (23-300) U/L Urine Dip Bedside Urine Glucose Negative Bedside Urine Bilirubin - Negative Bedside Urine Ketone - Negative Urine Specific [place] 1.015 Bedside Urine Occult Blood - Negative Bedside Urine pH 7.5 Bedside Urine Protein - Negative Bedside Urine Urobilinogen - Negative Bedside Urine Nitrite - Negative Bedside Urine Leukocytes - Negative Esterase Discharge Plan Departure Patient Disposition: [facility] Clinical Impression: Chest pain Qualifiers: Chest pain type: chest pain due to myocardial ischemia Ischemic chest pain type: unstable angina pectoris Qualified Code(s): I20.0 - Unstable angina Prescriptions: No Action aspirin 81 MG tablet,delayed release (DR/EC) 81 mg PO DAILY Qty: 0 RF: 0 clopidogrel 75 mg tablet 75 mg PO DAILY RF: 0 amlodipine 10 mg tablet 10 mg PO DAILY RF: 0 escitalopram oxalate 5 mg tablet 5 mg PO DAILY RF: 0 cholecalciferol (vitamin D3) [Vitamin D3] 5,000 unit Tablet 5,000 unit PO DAILY RF: 0 nitroglycerin 0.4 mg tablet, sublingual 1 tab sublingual [id number] PRN (Reason: Chest Pain) RF: 0 rosuvastatin 40 mg tablet 40 mg PO QPM RF: 0 cyanocobalamin (vitamin B-12) 2,000 mcg Tablet 2,000 mcg PO DAILY RF: 0 potassium chloride 10 mEq capsule, extended release 10 meq PO DAILY RF: 0 furosemide 20 mg tablet 40 mg PO DAILY RF: 0 losartan 100 mg tablet 100 mg PO QPM RF: 0 metoprolol tartrate 25 mg tablet 12.5 mg PO BID RF: 0 alprazolam 0.5 mg Tablet 0.5 mg PO TID PRN (Reason: Anxiety) RF: 0 lidocaine 5 % Adhesive Patch,Medicated 1 patch TOPICAL DAILY PRN (Reason: Pain (Scale Score 1-3)) RF: 0 Referrals: Zoe Bass PA-C [Primary Care Provider] -
[2019-07-07 13:15] LABS: Prothrombin Time 12.1 SECONDS (10.1-12.7)
[2019-07-07 13:18] LABS: PTT Partial Thromboplastin Tim 25 SECONDS (26.4-36.2)
[2019-07-07 13:20] LABS: Alanine Aminotransferase 14 IU/L (<35); Albumin 4.5 g/dL (3.5-5.0); Albumin Globulin Ratio 1.4 (1.0-2.8); Alkaline Phosphatase 46 U/L (38-126); Aspartate Aminotransferase 41 IU/L (14-36); BUN Creatinine Ratio 28.9 (6-22); Bilirubin Total 0.6 mg/dL (0.2-1.3); Blood Urea Nitrogen 26 mg/dL (7-17); Calcium 9.7 mg/dL (8.4-10.2); Carbon Dioxide 30 mmol/L (22-32); Chloride 99 mmol/L (98-107); Creatine Kinase 22 U/L (30-135); Estimated Glomerular Filt Rate > 60.0 mL/min (>60); Globulin 3.2 g/dL (1.7-4.1); Glucose 141 mg/dL (80-110); HEMOLYSIS 32 (0-50); Lipase 168 U/L (23-300); Potassium 4.9 mmol/L (3.4-5.1); Sodium 138 mmol/L (137-145); Total Protein 7.7 g/dL (6.3-8.2)
[2019-07-07 13:32] LABS: Troponin I < 0.012 ng/mL (0.01-0.034)
[2019-07-07 13:48] LABS: D Dimer 680 ng/mL (<230)
[2019-07-07 15:07] LABS: Troponin I < 0.012 ng/mL (0.01-0.034)
[2019-07-07] MEDS: NITROGLYCERIN 0.4 MG SL TAB SL (15:55)
--- NOTE | 2019-07-07 16:03 | PC.NURSE ---
skin pink,warm dry. family at .
[2019-07-07] MEDS: ALPRAZolam 0.5 MG TABLET PO (16:08)
[2019-07-07] MEDS: FUROSEMIDE 40 MG/4 ML VIAL IV (16:25)
--- NOTE | 2019-07-07 18:07 | PC.NURSE ---
reports back is sweaty, pt with multiple layers of blanket, removed, and given one fresh warm blanket. skin warm dry pink, moving all ext hall monitor baseline 59, bp [id number] reports, chest preassure the same at 09/21
[2019-07-07 18:51] LABS: Troponin I < 0.012 ng/mL (0.01-0.034)
== END 2019-07-07 19:12 | disposition short-term general hospital (02) ==
PROVIDERS: Emergency Provider Emergency Medicine; Family Provider Internal Medicine; PCP Physician Assistant Medical
DX: I25.119 Atherosclerotic heart disease of native coronary artery with unspecified angina pectoris (principal); R07.9 Chest pain, unspecified; I50.9 Heart failure, unspecified; Z95.5 Presence of coronary angioplasty implant and graft; Z79.82 Long term (current) use of aspirin
CPT/HCPCS: 36415; 71045; 80053; 81003; 82550; 83690; 84484; 85025; 85379; 85610; 85730; 93005; 96374; 99285; J1940

== ENCOUNTER 2019-09-19 20:10 | Emergency (ER) | payer MEDICARE, OTHER, SELFPAY ==
[2019-01-23 21:49] VITALS: BMI 33.3
[2019-09-19] VITALS (7 sets, daily range): BP systolic 113–177; BP diastolic 56–77; PULSE 58–71; RESP 11–17; TEMP 37.1; O2SAT 95–97; BMI 34.0
--- NOTE | 2019-09-19 20:40 | DI.RAD.S_ITS ---
PROCEDURE: XR CHEST 1V INDICATIONS: chest pain and dyspnea TECHNIQUE: One view of the chest was acquired. COMPARISON: [facility], CT, CT ANGIO CHEST PE, 07/08/2019, 11:59. [facility], CR, XR CHEST 1V, 07/07/2019, 12:51. [facility], CR, XR CHEST 1V, 06/01/2019, 14:45. FINDINGS: Surgical changes and devices: Coronary artery stent. Lungs and pleura: Prominent interstitial markings. No consolidation. No significant pleural effusions or pneumothorax. Mediastinum: Mediastinal contours appear normal. Heart size is prominent. Bones and chest wall: No suspicious bony lesions. Right greater the left shoulder DJD. Overlying soft tissues appear unremarkable. IMPRESSION: Mild fluid overload/CHF. Cardiomegaly. Dictated by: Ehsan Banegas M.D. on 09/19/2019 at 21:08 Approved by: Ehsan Banegas M.D. on 09/19/2019 at 21:09
[2019-09-19 20:55] LABS: Add Manual Diff / Slide Review NO; Basophils Absolute Auto 100 /uL (0-100); Basophils Percent Auto 0.7 % (0-2); Eosinophils Absolute Auto 200 /uL (0-450); Eosinophils Percent Auto 2.2 % (2-4); Hemoglobin 13.3 g/dL (12.0-16.0); Lymphocytes Absolute Auto 2500 /uL (1100-4500); Lymphocytes Percent Auto 31.7 % (25-40); Mean Corpuscular HGB Conc 34.2 % (30-36); Mean Corpuscular Hemoglobin 30.5 PG (26-34); Mean Corpuscular Volume 89.3 fL (80-100); Monocytes Absolute Auto 700 /uL (0-900); Monocytes Percent Auto 8.7 % (3-14); Neutrophils Absolute Auto 4400 /uL (1500-7000); Neutrophils Percent Auto 56.7 % (50-75); Platelet Count 217 X10^3/uL (150-400); Red Blood Cell Count 4.37 X10^6/uL (4.0-5.2); White Blood Cell Count 7.7 X10^3/uL (4.5-11.0)
[2019-09-19 21:03] LABS: Prothrombin Time 11.3 SECONDS (10.1-12.7)
[2019-09-19 21:06] LABS: PTT Partial Thromboplastin Tim 27 SECONDS (26.4-36.2)
[2019-09-19 21:08] LABS: Alanine Aminotransferase 10 IU/L (<35); Albumin 4.4 g/dL (3.5-5.0); Albumin Globulin Ratio 1.4 (1.0-2.8); Alkaline Phosphatase 36 U/L (38-126); BUN Creatinine Ratio 20.2 (6-22); Bilirubin Total 0.7 mg/dL (0.2-1.3); Blood Urea Nitrogen 21 mg/dL (7-17); Calcium 9.5 mg/dL (8.4-10.2); Carbon Dioxide 28 mmol/L (22-32); Chloride 102 mmol/L (98-107); Creatine Kinase 45 U/L (30-135); Estimated Glomerular Filt Rate 50.9 mL/min (>60); Globulin 3.1 g/dL (1.7-4.1); Glucose 123 mg/dL (80-110); Lipase 146 U/L (23-300); Sodium 136 mmol/L (137-145); Total Protein 7.5 g/dL (6.3-8.2)
[2019-09-19 21:12] LABS: HEMOLYSIS 138 (0-50)
[2019-09-19 21:14] LABS: Aspartate Aminotransferase 44 IU/L (14-36)
[2019-09-19 21:15] LABS: Potassium 4.9 mmol/L (3.4-5.1)
[2019-09-19 21:20] LABS: NT-proBNP (BNP-Adult 18+) 242 pg/mL (<450); Troponin I 0.015 ng/mL (0.01-0.034)
--- NOTE | 2019-09-19 22:25 | PC.NURSE ---
Pt c/o increased CP at this time, with nausea. Pt PWD. called RT for repeat EKG. 2nd troponin drawn. Dr enriquez made aware.
[2019-09-19] MEDS: ASPIRIN 81 MG CHEW TAB 324 MG PO (22:46)
[2019-09-19] MEDS: NITROGLYCERIN 0.4 MG SL TAB SL (22:47)
[2019-09-19 22:51] LABS: D Dimer 415 ng/mL (<230)
[2019-09-19 22:52] LABS: Troponin I < 0.012 ng/mL (0.01-0.034)
[2019-09-19] MEDS: ONDANSETRON 4 MG/2 ML INJ IV (22:53)
[2019-09-20] MEDS: LORazepam 2 MG/ML INJ 0.5 MG IV (00:24)
[2019-09-20] MEDS: HEPARIN DRIP 25,000 UNIT/500 ML IV.SOLN 20 UNIT IV (00:57)
[2019-09-20] MEDS: HEPARIN 5,000 UNIT/ML VIAL 5000 UNIT IV (00:57)
--- NOTE | 2019-09-20 01:14 | ED.SOB ---
HPI - SOB/Dyspnea General Chief Complaint: Shortness of Breath/Dyspnea Stated Complaint: states angina, shortness of breath Time Seen by Provider: 09/19/19 20:40 Source: patient Mode of arrival: Wheelchair Limitations: no limitations History of Present Illness HPI Narrative: 83F nonsmoker with history of coronary artery disease presents with worsening retrosternal chest pain with any exertion including profound shortness of breath with any exertion. She denies any fever chills nor runny nose, sore throat or cough. She denies nausea, vomiting or diarrhea. She was discharged [address] [facility] under similar circumstances. Most recent heart catheterization was in April and patient has been hesitant to receive another and as a result attempts to maximize medical therapies have been employed. She had very little change in her chest pain at home with the use of nitro and presented here for evaluation MD Complaint: shortness of breath and chest pain Onset (ago): hour(s) Context: occurred during exertion Severity: moderate Consistency/Duration: intermittent Relieving factors: rest Exacerbating factors: exertion Associated symptoms: chest pain Treatment prior to arrival: nitroglycerin Related Data Home oxygen amount: none Home Medications Medication Instructions Recorded Confirmed aspirin 81 mg PO DAILY #0 05/14/17 06/01/19 cyanocobalamin (vitamin B-12) 2,000 mcg PO DAILY 11/18/18 06/01/19 nitroglycerin 1 tab SUBLINGUAL [id number] PRN 11/18/18 06/01/19 rosuvastatin 40 mg PO QPM 11/18/18 06/01/19 furosemide 40 mg PO DAILY 01/23/19 06/01/19 losartan 100 mg PO QPM 01/23/19 06/01/19 metoprolol tartrate 12.5 mg PO BID 01/23/19 06/01/19 potassium chloride 10 meq PO DAILY 01/23/19 06/01/19 amlodipine 10 mg PO DAILY 05/03/19 06/01/19 cholecalciferol (vitamin D3) 5,000 unit PO DAILY 05/03/19 06/01/19 [Vitamin D3] clopidogrel 75 mg PO DAILY 05/03/19 06/01/19 escitalopram oxalate 5 mg PO DAILY 05/03/19 06/01/19 alprazolam 0.5 mg PO TID PRN 06/01/19 06/01/19 lidocaine 1 patch TOPICAL DAILY PRN 06/01/19 06/01/19 Allergies Allergy/AdvReac Type Severity Reaction Status Date / Time erythromycin base Allergy Severe Rash Verified 09/19/19 20:21 [ERYTHROMYCIN BASE] ibuprofen [IBUPROFEN] Allergy Severe Rash Verified 09/19/19 20:21 Iodinated Contrast Media Allergy Severe Unconscious Verified 09/19/19 20:21 [IODINATED CONTRAST- ORAL AND IV DYE] morphine [MORPHINE] Allergy Severe Rash Verified 09/19/19 20:21 naproxen [From ALEVE] Allergy Severe Rash Verified 09/19/19 20:21 telmisartan [TELMISARTAN] Allergy Severe Rash Verified 09/19/19 20:21 Review of Systems Constitutional Constitutional: Denies chills, Denies fatigue, Denies fever(s), Denies frequent falls, Denies lethargy and Denies weakness Eyes Eyes: Denies change in vision, Denies eye discharge, Denies irritation and Denies loss of vision ENT Ears, Nose, Mouth, and Throat: Denies change in voice, Denies dizziness, Denies neck pain, Denies sore throat and Denies throat swelling Cardiovascular Cardiovascular: Reports chest pain, Reports chest pain with activity, Denies irregular heart rhythm, Denies lightheadedness, Denies palpitations, Reports dyspnea, Reports dyspnea on exertion and Denies orthopnea Respiratory Respiratory: Denies cough, Reports dyspnea, Reports dyspnea on exertion and Denies wheezing Gastrointestinal Gastrointestinal: Denies abdominal pain, Denies change in bowel habits, Denies diarrhea, Denies nausea and Denies vomiting Genitourinary Genitourinary: Denies hematuria, Denies flank pain, Denies urinary incontinence and Denies urinary urgency Musculoskeletal Musculoskeletal: Denies back pain, Denies muscle weakness, Denies neck pain, Denies numbness and Denies tingling Integumentary/Breasts Skin/Breast: Denies pruritus, Denies erythema, Denies rash and Denies wounds Neurologic Neurologic: Denies behavioral changes, Denies confusion, Denies dizziness, Denies frequent falls, Denies loss of vision, Denies numbness, Denies tingling and Denies weakness Psychiatric Psychiatric: Denies anxiety, Denies behavioral changes, Denies confusion, Denies depression, Denies homicidal ideation and Denies suicidal ideation Endocrine Endocrine: Denies fatigue, Denies flushing and Denies palpitations Hematologic/Lymphatic Hematologic/Lymphatic: Denies easy bruising Allergic/Immunologic Allergic/Immunologic: Denies urticaria, Denies throat swelling and Denies wheezing Patient History Medical History Cardiac arrest (Acute) Chest pain (Inactive) Coronary artery disease (Acute) Hyperlipidemia (Acute) Hypertension (Acute) Left hamstring muscle strain (Inactive) UTI (urinary tract infection) (Inactive) Surgical History History of appendectomy (Acute) History of breast implant removal (Acute) History of breast surgery (Acute) History of cholecystectomy (Acute) History of coronary artery stent placement (Acute) History of total abdominal hysterectomy (Acute) Social History household members: children Smoking Status: Never smoker Smoking Status: Never smoker alcohol intake frequency: holidays/special occasions only Substance Use Type: does not use Exam Narrative Exam Narrative: GENERAL: [83] year old patient appears stated age. Well-nourished, well-developed patient, in mild distress. HEAD: Atraumatic. Normocephalic. EYES: Pupils equal round and reactive. Extraocular motions intact. No scleral icterus. No injection or drainage. ENT: Nose without bleeding, purulent drainage. Throat without erythema, tonsillar hypertrophy or exudate. Airway patent. NECK: Trachea midline. Non tender CARDIOVASCULAR: Regular rate and rhythm without murmurs, gallops, or rubs. RESPIRATORY: Clear to auscultation. Breath sounds equal bilaterally. No wheezes, rales, or rhonchi. GASTROINTESTINAL: Abdomen soft, non-tender, nondistended. EXTREMITIES: No edema or joint tenderness. BACK: Nontender without deformity or crepitance. No flank tenderness. NEURO: AOx3. SKIN: No rash or erythema of visible areas Initial Vital Signs Initial Vital Signs: Vital Signs Temperature 98.8 F 09/19/19 20:15 Pulse Rate 71 09/19/19 20:15 Respiratory Rate 14 09/19/19 20:15 Blood Pressure 165/76 H 09/19/19 20:15 Pulse Oximetry 96 09/19/19 20:15 Course Orders Ordered: ED Orders 09/19/19 20:17 EKG-12 Lead Stat 09/19/19 20:40 XR chest 1V Stat Complete Blood Count AUTO DIFF Stat Comprehensive Metabolic Panel Stat D Dimer Stat Lipase Stat NT-proBNP (BNP-Adult 18+) Stat Partial Thromboplastin Time Stat Prothrombin Time INR Stat Troponin & CK Cardiac Panel Stat 09/19/19 22:21 Troponin I Stat EKG-12 Lead Routine Heparin Sodium/Dextrose (Heparin Drip) 25,000 unit in 500 mls @ 20 mls/hr IV CONT AFIA; Protocol Last Admin: 09/20/19 00:57 Dose: 1,000 units/hr, 20 mls/hr Documented by: RYLIE Nitroglycerin (Nitrostat) 0.4 mg SL [id number] PRN PRN Reason: Chest Pain Last Admin: 09/19/19 22:47 Dose: 0.4 mg Documented by: PHANI Discontinued Medications Aspirin (Aspirin Chew) 324 mg PO NOW ONE Stop: 09/19/19 22:42 Last Admin: 09/19/19 22:46 Dose: 324 mg Documented by: PHANI Heparin Sodium (Porcine) (Heparin) 5,000 unit IV NOW ONE Stop: 09/20/19 00:39 Last Admin: 09/20/19 00:57 Dose: 5,000 unit Documented by: RYLIE Lorazepam (Ativan) 0.5 mg IV NOW ONE Stop: 09/20/19 00:15 Last Admin: 09/20/19 00:24 Dose: 0.5 mg Documented by: PHANI Ondansetron HCl (Zofran) 4 mg IV NOW ONE Stop: 09/19/19 22:52 Last Admin: 09/19/19 22:53 Dose: 4 mg Documented by: PHANI Reevaluation(s) Reevaluation #1: extensive discussion about need for cath and her historical hesitance to do so. She is willing to go to [facility] for heart cath and understands that this is the plan Reevaluation #2: improvement in pain after NG, but rather precipitous drop in BP, will withold more Consultations Consultation #1: call to Dr. Engle, case discussed. He asks that patient be transferred with heparin bolus/drip, kept NPO Consultation #2: Dr. Lama is happy to accept Vital Signs Vital signs: Vital Signs - 8 hr 09/19/19 20:15 09/19/19 20:30 09/19/19 21:00 Temperature 98.8 F Pulse Rate 71 61 60 Respiratory Rate 14 13 17 Blood Pressure 165/76 H Blood Pressure [Right Arm] 137/63 128/59 L Pulse Oximetry 96 97 97 09/19/19 21:30 09/19/19 22:00 09/19/19 22:45 Temperature Pulse Rate 58 L 60 65 Respiratory Rate 11 L 12 16 Blood Pressure Blood Pressure [Right Arm] 150/67 H 155/67 H 177/77 H Pulse Oximetry 97 97 95 09/19/19 22:56 Temperature Pulse Rate 62 Respiratory Rate 16 Blood Pressure Blood Pressure [Right Arm] 113/56 L Pulse Oximetry 96 MDM - SOB/Dyspnea Lab Data Result diagrams: 09/19/19 20:40 09/19/19 20:40 Labs: Lab Results 09/19/19 09/19/19 09/19/19 Range/Units 20:40 20:40 20:40 WBC 7.7 (4.5-11.0) X10^3/uL RBC 4.37 (4.0-5.2) X10^6/uL Hgb 13.3 (12.0-16.0) g/dL Hct 39.0 (36-46) % MCV 89.3 (80-100) fL MCH 30.5 (26-34) PG MCHC 34.2 (30-36) % RDW 16.0 H (11.6-14.8) % Plt Count 217 (150-400) X10^3/uL Neut % (Auto) 56.7 (50-75) % Lymph % (Auto) 31.7 (25-40) % [place] % (Auto) 8.7 (3-14) % Eos % (Auto) 2.2 (2-4) % Baso % (Auto) 0.7 (0-2) % Neut # (Auto) 4400 (9065-7692) /uL Lymph # (Auto) 2500 (4508-6572) /uL [place] # (Auto) 700 (0-900) /uL Eos # (Auto) 200 (0-450) /uL Baso # (Auto) 100 (0-100) /uL PT 11.3 (10.1-12.7) SECONDS INR 1.0 (0.9-1.3) APTT 27 D (26.4-36.2) SECONDS D-Dimer (<230) ng/mL Sodium 136 L (137-145) mmol/L Potassium 4.9 (3.4-5.1) mmol/L Chloride 102 (98-107) mmol/L Carbon Dioxide 28 (22-32) mmol/L BUN 21 H (7-17) mg/dL Creatinine 1.04 (0.52-1.04) mg/dL Estimated GFR 50.9 L (>60) mL/min BUN/Creatinine Ratio 20.2 (6-22) Glucose 123 H (80-110) mg/dL Calcium 9.5 (8.4-10.2) mg/dL Total Bilirubin 0.7 (0.2-1.3) mg/dL AST 44 H (14-36) IU/L ALT 10 (<35) IU/L Alkaline Phosphatase 36 L (38-126) U/L Total Creatine Kinase 45 (30-135) U/L CK-MB (CK-2) TNP CK-MB (CK-2) Rel Index TNP Troponin I 0.015 (0.01-0.034) ng/mL NT-Pro-B Natriuret Pep 242 (<450) pg/mL Total Protein 7.5 (6.3-8.2) g/dL Albumin 4.4 (3.5-5.0) g/dL Globulin 3.1 (1.7-4.1) g/dL Albumin/Globulin Ratio 1.4 (1.0-2.8) Lipase 146 (23-300) U/L 09/19/19 09/19/19 Range/Units 20:40 22:21 WBC (4.5-11.0) X10^3/uL RBC (4.0-5.2) X10^6/uL Hgb (12.0-16.0) g/dL Hct (36-46) % MCV (80-100) fL MCH (26-34) PG MCHC (30-36) % RDW (11.6-14.8) % Plt Count (150-400) X10^3/uL Neut % (Auto) (50-75) % Lymph % (Auto) (25-40) % [place] % (Auto) (3-14) % Eos % (Auto) (2-4) % Baso % (Auto) (0-2) % Neut # (Auto) (8828-4996) /uL Lymph # (Auto) (9505-0770) /uL [place] # (Auto) (0-900) /uL Eos # (Auto) (0-450) /uL Baso # (Auto) (0-100) /uL PT (10.1-12.7) SECONDS INR (0.9-1.3) APTT (26.4-36.2) SECONDS D-Dimer 415 H (<230) ng/mL Sodium (137-145) mmol/L Potassium (3.4-5.1) mmol/L Chloride (98-107) mmol/L Carbon Dioxide (22-32) mmol/L BUN (7-17) mg/dL Creatinine (0.52-1.04) mg/dL Estimated GFR (>60) mL/min BUN/Creatinine Ratio (6-22) Glucose (80-110) mg/dL Calcium (8.4-10.2) mg/dL Total Bilirubin (0.2-1.3) mg/dL AST (14-36) IU/L ALT (<35) IU/L Alkaline Phosphatase (38-126) U/L Total Creatine Kinase (30-135) U/L CK-MB (CK-2) CK-MB (CK-2) Rel Index Troponin I < 0.012 (0.01-0.034) ng/mL NT-Pro-B Natriuret Pep (<450) pg/mL Total Protein (6.3-8.2) g/dL Albumin (3.5-5.0) g/dL Globulin (1.7-4.1) g/dL Albumin/Globulin Ratio (1.0-2.8) Lipase (23-300) U/L Critical Care Time Critical Care Time Critical Care Time: Yes Total Critical Care Time: 30 Attestation: The high probability of a clinically significant, sudden or life threatening deterioration of the [CV] system(s) required my full and direct attention, intervention and personal management. The aggregate critical care time was [30] minutes. This time is in addition to time spent performing reported procedures but includes the following: [x] Data Review and interpretation [x] Patient assessment and monitoring of vital signs [x] Documentation [x] Medication orders and management Discharge Plan Departure Patient Disposition: [facility] Clinical Impression: Unstable angina Prescriptions: No Action aspirin 81 MG tablet,delayed release (DR/EC) 81 mg PO DAILY Qty: 0 RF: 0 clopidogrel 75 mg tablet 75 mg PO DAILY RF: 0 amlodipine 10 mg tablet 10 mg PO DAILY RF: 0 escitalopram oxalate 5 mg tablet 5 mg PO DAILY RF: 0 cholecalciferol (vitamin D3) [Vitamin D3] 5,000 unit Tablet 5,000 unit PO DAILY RF: 0 nitroglycerin 0.4 mg tablet, sublingual 1 tab sublingual [id number] PRN (Reason: Chest Pain) RF: 0 rosuvastatin 40 mg tablet 40 mg PO QPM RF: 0 cyanocobalamin (vitamin B-12) 2,000 mcg Tablet 2,000 mcg PO DAILY RF: 0 potassium chloride 10 mEq capsule, extended release 10 meq PO DAILY RF: 0 furosemide 20 mg tablet 40 mg PO DAILY RF: 0 losartan 100 mg tablet 100 mg PO QPM RF: 0 metoprolol tartrate 25 mg tablet 12.5 mg PO BID RF: 0 alprazolam 0.5 mg Tablet 0.5 mg PO TID PRN (Reason: Anxiety) RF: 0 lidocaine 5 % Adhesive Patch,Medicated 1 patch TOPICAL DAILY PRN (Reason: Pain (Scale Score 1-3)) RF: 0 Referrals: Zoe Bass PA-C [Primary Care Provider] -
[2019-09-20 03:32] VITALS: BP 133/73; PULSE 70; RESP 16; O2SAT 97
== END 2019-09-20 03:33 | disposition short-term general hospital (02) ==
PROVIDERS: Nurse Practitioner Family; Emergency Provider Emergency Medicine; Family Provider Internal Medicine; PCP Physician Assistant Medical
DX: I25.110 Atherosclerotic heart disease of native coronary artery with unstable angina pectoris (principal); R06.02 Shortness of breath
CPT/HCPCS: 36415; 71045; 80053; 82550; 83690; 83880; 84484; 85025; 85379; 85610; 85730; 93005; 96365; 96366; 96375; 99284; 99291; J1644; J2060; J2405

== ENCOUNTER 2019-11-06 12:19 | Emergency (ER) | payer MEDICARE, OTHER, SELFPAY ==
[2019-01-23 21:49] VITALS: BMI 33.3
[2019-11-06 12:20] VITALS: BP 185/80; PULSE 69; RESP 18; TEMP 37.3; O2SAT 94; BMI 34.7
--- NOTE | 2019-11-06 12:27 | DI.RAD.S_ITS ---
PROCEDURE: XR CHEST 1V INDICATIONS: chest pain TECHNIQUE: One view of the chest was acquired. COMPARISON: [facility], CR, XR CHEST 1V, 09/19/2019, 20:44. FINDINGS: Surgical changes and devices: None. Lungs and pleura: There is pulmonary vascular congestion. Subtle increased opacity in right infrahilar region is seen, its developing right lower lobe infiltrate cannot be excluded. No pleural effusions or pneumothorax. Mediastinum: Mediastinal contours appear normal. Heart size is enlarged. Bones and chest wall: No suspicious bony lesions. Overlying soft tissues appear unremarkable. IMPRESSION: Finding is concerning for developing right infrahilar infiltrate/atelectasis. Dictated by: Edmundo Deng M.D. on 11/06/2019 at 12:51 Approved by: Edmundo Deng M.D. on 11/06/2019 at 12:55
--- NOTE | 2019-11-06 12:36 | ED.GENADULT ---
HPI - General Adult General Chief complaint: Weakness Stated complaint: sent by doc, weak, SOB, vertigo Time Seen by Provider: 11/06/19 12:36 History of Present Illness HPI narrative: 84-year-old woman presents with a week and a half of general malaise, shortness of breath both positional and with exertion, positional vertigo at night only and dizziness during the day. Outpatient blood work a couple of days ago had indicated low sodium and higher potassium medications were changed and her symptoms have not abated. Her fish and wildlife biologist recommended that she come to the emergency room for further evaluation. Additional medical problems include a long history of coronary artery disease with multiple stents and multiple recent left heart catheterizations. She also has a history of hyperlipidemia and hypertension. She was treated for a and STEMI 09/2018 and 04/2019. Hospitalized 09/09/2019 her chest pain was felt to be noncardiac. Without admission she had cardiac stress test and echocardiography that were unremarkable. 09/20/2019 she presented with additional chest pain and underwent cardiac catheterization that showed LAD stents open and proximal right coronary artery stent open. Since June she is complaining of dyspnea on exertion and increased fatigue. She has had 5 Covid19 tests all of which have been negative. She notes mild orthopnea but no lower extremity edema. She denies any fevers. She has mild asthma denies significant cough. Was started on Flovent in late September to see if that might help the dyspnea symptoms. She continues on an albuterol inhaler. Last course of steroids was well over a month ago and did not seem to change any of her symptoms. She does report that she had some type of outpatient pulmonary function type testing at [facility] within the last couple of months but does not remember results of this. Related Data Home Medications Medication Instructions Recorded Confirmed aspirin 81 mg PO DAILY #0 05/14/17 06/01/19 cyanocobalamin (vitamin B-12) 2,000 mcg PO DAILY 11/18/18 06/01/19 nitroglycerin 1 tab SUBLINGUAL [id number] PRN 11/18/18 06/01/19 rosuvastatin 40 mg PO QPM 11/18/18 06/01/19 furosemide 40 mg PO DAILY 01/23/19 06/01/19 losartan 100 mg PO QPM 01/23/19 06/01/19 metoprolol tartrate 12.5 mg PO BID 01/23/19 06/01/19 potassium chloride 10 meq PO DAILY 01/23/19 06/01/19 amlodipine 10 mg PO DAILY 05/03/19 06/01/19 cholecalciferol (vitamin D3) 5,000 unit PO DAILY 05/03/19 06/01/19 [Vitamin D3] clopidogrel 75 mg PO DAILY 05/03/19 06/01/19 escitalopram oxalate 5 mg PO DAILY 05/03/19 06/01/19 alprazolam 0.5 mg PO TID PRN 06/01/19 06/01/19 lidocaine 1 patch TOPICAL DAILY PRN 06/01/19 06/01/19 Allergies Allergy/AdvReac Type Severity Reaction Status Date / Time erythromycin base Allergy Severe Rash Verified 11/06/19 12:57 [ERYTHROMYCIN BASE] ibuprofen [IBUPROFEN] Allergy Severe Rash Verified 11/06/19 12:57 Iodinated Contrast Media Allergy Severe Unconscious Verified 11/06/19 12:57 [IODINATED CONTRAST- ORAL AND IV DYE] morphine [MORPHINE] Allergy Severe Rash Verified 11/06/19 12:57 naproxen [From ALEVE] Allergy Severe Rash Verified 11/06/19 12:57 telmisartan [TELMISARTAN] Allergy Severe Rash Verified 11/06/19 12:57 Review of Systems Review of Systems Narrative: Pertinent positive and negative findings as per HPI Remainder of review of systems is otherwise unremarkable for ENT: No sore throat, neck pain, ear pain GI: Nausea, vomiting, diarrhea, change in bowel habits, black or bloody stools : Dysuria, hematuria, flank pain MS: Muscle weakness, numbness, joint swelling or warmth Skin: Rashes, nonhealing lesions Neuro: Syncope, dizziness, tingling Psych: Depression, anxiety, suicidal ideation Patient History Medical History Cardiac arrest (Acute) Chest pain (Inactive) Coronary artery disease (Acute) Hyperlipidemia (Acute) Hypertension (Acute) Left hamstring muscle strain (Inactive) UTI (urinary tract infection) (Inactive) Surgical History H/O right heart catheterization (Inactive) History of appendectomy (Acute) History of breast implant removal (Acute) History of breast surgery (Acute) History of cholecystectomy (Acute) History of coronary artery stent placement (Acute) History of total abdominal hysterectomy (Acute) Social History household members: children Smoking Status: Never smoker Smoking Status: Never smoker alcohol intake frequency: holidays/special occasions only Substance Use Type: does not use Exam Narrative Exam Narrative: General: Healthy appearing, in no acute distress. Able to give a complete and coherent history. Well-nourished well-developed. Comfortably speaking in full sentences with heart rate maintained in the 60s and oxygen saturations in the upper 90s with on room air. HEENT: Moist mucous membranes, normal sclera with reactive pupils, Neck: No JVD, supple Respiratory: Lungs mild scattered wheezes bilaterally in upper lung ibrahim without rales, no rhonchi. Full and symmetrical air movement Cardiac: Regular rate and rhythm no murmurs no bruits Abdomen: Soft nontender good bowel tones, no flank pain Skin: Warm and dry, no rashes Neurologic: Grossly neurologically intact with no obvious asymmetries or abnormalities Extremities: No trauma, well perfused Psych: Cooperative, appropriate insight and affect Initial Vital Signs Initial Vital Signs: Vital Signs Temperature 99.1 F 11/06/19 12:20 Pulse Rate 69 11/06/19 12:20 Respiratory Rate 18 11/06/19 12:20 Blood Pressure 185/80 H 11/06/19 12:20 Pulse Oximetry 94 11/06/19 12:20 Course Orders Ordered: ED Orders 11/06/19 12:27 XR chest 1V Stat EKG-12 Lead Stat 11/06/19 13:15 Complete Blood Count AUTO DIFF Stat Comprehensive Metabolic Panel Stat Lactate (Lactic Acid) Stat Lipase Stat Partial Thromboplastin Time Stat Procalcitonin Stat Prothrombin Time INR Stat Troponin & CK Cardiac Panel Stat 11/06/19 13:37 Blood Culture Stat 11/06/19 14:03 CT chest w con Stat Discontinued Medications Acetaminophen (Tylenol) 975 mg PO NOW ONE Stop: 11/06/19 13:29 Last Admin: 11/06/19 14:04 Dose: 975 mg Documented by: CARLOS Vital Signs Vital signs: Vital Signs - 8 hr 11/06/19 12:20 11/06/19 12:47 11/06/19 13:32 Temperature 99.1 F Pulse Rate 69 63 61 Respiratory Rate 18 20 12 Blood Pressure 185/80 H Blood Pressure [Left Arm] 173/77 H Blood Pressure [Right Arm] Pulse Oximetry 94 96 97 11/06/19 13:59 Temperature Pulse Rate Respiratory Rate Blood Pressure Blood Pressure [Left Arm] Blood Pressure [Right Arm] 166/70 H Pulse Oximetry Medical Decision Making Medical Records Medical records reviewed: Yes I reviewed the patient's medical records. Lab Data Lab results reviewed: Yes I reviewed the patient's lab results. Lab results narrative: Potassium and sodium are back to normal at this time Result diagrams: 11/06/19 13:15 11/06/19 13:15 Labs: Lab Results 11/06/19 11/06/19 11/06/19 Range/Units 13:15 13:15 13:15 WBC 7.9 (4.5-11.0) X10^3/uL RBC 4.63 (4.0-5.2) X10^6/uL Hgb 14.0 (12.0-16.0) g/dL Hct 40.6 (36-46) % MCV 87.7 (80-100) fL MCH 30.3 (26-34) PG MCHC 34.5 (30-36) % RDW 14.7 (11.6-14.8) % Plt Count 261 (150-400) X10^3/uL Neut % (Auto) 57.6 (50-75) % Lymph % (Auto) 32.1 (25-40) % [place] % (Auto) 8.1 (3-14) % Eos % (Auto) 1.7 L (2-4) % Baso % (Auto) 0.5 (0-2) % Neut # (Auto) 4600 (1654-5948) /uL Lymph # (Auto) 2600 (4446-2633) /uL [place] # (Auto) 600 (0-900) /uL Eos # (Auto) 100 (0-450) /uL Baso # (Auto) 0 (0-100) /uL PT 12.2 (10.1-12.7) SECONDS INR 1.1 (0.9-1.3) APTT 30 D (26.4-36.2) SECONDS Sodium 138 (137-145) mmol/L Potassium 3.5 (3.4-5.1) mmol/L Chloride 97 L (98-107) mmol/L Carbon Dioxide 33 H (22-32) mmol/L BUN 19 H (7-17) mg/dL Creatinine 1.07 H (0.52-1.04) mg/dL Estimated GFR 49.1 L (>60) mL/min BUN/Creatinine Ratio 17.8 (6-22) Glucose 99 (80-110) mg/dL Lactate (0.7-2.1) mmol/L Calcium 9.9 (8.4-10.2) mg/dL Total Bilirubin 0.5 (0.2-1.3) mg/dL AST 27 (14-36) IU/L ALT 8 (<35) IU/L Alkaline Phosphatase 56 (38-126) U/L Total Creatine Kinase 49 (30-135) U/L CK-MB (CK-2) TNP CK-MB (CK-2) Rel Index TNP Troponin I < 0.012 (0.01-0.034) ng/mL Total Protein 7.4 (6.3-8.2) g/dL Albumin 4.5 (3.5-5.0) g/dL Globulin 2.9 (1.7-4.1) g/dL Albumin/Globulin Ratio 1.6 (1.0-2.8) Lipase 166 (23-300) U/L Procalcitonin (<0.5) ng/mL 11/06/19 11/06/19 Range/Units 13:15 13:15 WBC (4.5-11.0) X10^3/uL RBC (4.0-5.2) X10^6/uL Hgb (12.0-16.0) g/dL Hct (36-46) % MCV (80-100) fL MCH (26-34) PG MCHC (30-36) % RDW (11.6-14.8) % Plt Count (150-400) X10^3/uL Neut % (Auto) (50-75) % Lymph % (Auto) (25-40) % [place] % (Auto) (3-14) % Eos % (Auto) (2-4) % Baso % (Auto) (0-2) % Neut # (Auto) (8356-3603) /uL Lymph # (Auto) (7597-0546) /uL [place] # (Auto) (0-900) /uL Eos # (Auto) (0-450) /uL Baso # (Auto) (0-100) /uL PT (10.1-12.7) SECONDS INR (0.9-1.3) APTT (26.4-36.2) SECONDS Sodium (137-145) mmol/L Potassium (3.4-5.1) mmol/L Chloride (98-107) mmol/L Carbon Dioxide (22-32) mmol/L BUN (7-17) mg/dL Creatinine (0.52-1.04) mg/dL Estimated GFR (>60) mL/min BUN/Creatinine Ratio (6-22) Glucose (80-110) mg/dL Lactate 1.8 (0.7-2.1) mmol/L Calcium (8.4-10.2) mg/dL Total Bilirubin (0.2-1.3) mg/dL AST (14-36) IU/L ALT (<35) IU/L Alkaline Phosphatase (38-126) U/L Total Creatine Kinase (30-135) U/L CK-MB (CK-2) CK-MB (CK-2) Rel Index Troponin I (0.01-0.034) ng/mL Total Protein (6.3-8.2) g/dL Albumin (3.5-5.0) g/dL Globulin (1.7-4.1) g/dL Albumin/Globulin Ratio (1.0-2.8) Lipase (23-300) U/L Procalcitonin < 0.05 (<0.5) ng/mL Urine Dip Bedside Urine Glucose Negative Bedside Urine Bilirubin - Negative Bedside Urine Ketone - Negative Urine Specific [place] 1.010 Bedside Urine Occult Blood - Negative Bedside Urine pH 7.5 Bedside Urine Protein - Negative Bedside Urine Urobilinogen - Negative Bedside Urine Nitrite - Negative Bedside Urine Leukocytes - Negative Esterase Point of care testing: Urine Dip Bedside Urine Glucose Negative Bedside Urine Bilirubin - Negative Bedside Urine Ketone - Negative Urine Specific [place] 1.010 Bedside Urine Occult Blood - Negative Bedside Urine pH 7.5 Bedside Urine Protein - Negative Bedside Urine Urobilinogen - Negative Bedside Urine Nitrite - Negative Bedside Urine Leukocytes - Negative Esterase Imaging Data Chest x-ray: Radiologist's Impression: IMPRESSION: Finding is concerning for developing right infrahilar infiltrate/atelectasis. Dictated by: Edmundo Deng M.D. on 11/06/2019 at 12:51 CT scan - chest: Radiologist's Impression: IMPRESSION: 1. No acute process. 2. No pulmonary embolus. 3. Mild chronic appearing interstitial lung disease. 4. Small hiatal hernia. Dictated by: Brandy Barakat M.D. on 11/06/2019 at 14:28 ECG Data Interpretation: Sinus rhythm at a rate of 64 partial right bundle branch block No acute ischemic changes MDM Narrative Medical decision making narrative: 84-year-old woman with a week and a half of malaise and worsening exertional dyspnea with orthopnea positional vertigo and dizziness during the day. She has had similar symptoms since June with significant cardiac workup including echo, stress test, heart catheterization, some type of pulmonary function testing but is not clear that she has actually had a CT scan of her chest. She has had multiple negative COVID-19 tests and at this point is simply feeling worse. Labs including potassium is sodium apparently had been off the end of last week and her fish and wildlife biologist asked her to come in for further evaluation. Repeat studies today suggests no evidence of electrolyte abnormalities. She is not in overt heart failure. She is not septic. Chest x-ray is mildly abnormal and will proceed to CT scan to follow-up on this. CT scan does not suggest an acute process. At this time electrolytes are appropriate, there is no sign of acute heart failure, no pulmonary embolism, no pulmonary infection, multiple coronavirus tests have been negative. She has mild chronic appearing interstitial lung disease. I do not have an explanation for her acute symptoms but she does not appear to need hospitalization at this time. She is safe for home discharge and will continue with outpatient follow-up. Discharge Plan Departure Patient Disposition: Home Clinical Impression: Malaise Dyspnea Qualifiers: Dyspnea type: unspecified Qualified Code(s): R06.00 - Dyspnea, unspecified Instructions: DI for Shortness of Breath Activity Restrictions/Additional Instructions: Thank you for coming in today I am glad that I did not find any life-threatening issues to explain your general malaise and dyspnea. Specifically there is no heart attack or heart attack leg syndrome, there is no pulmonary embolism, no coronavirus, no congestive heart failure, no pneumonia or other specific lung problems. Your potassium and sodium levels both are in the normal range. You do not need to make any changes to your current medications. Unfortunately, I also do not have a full explanation for your symptoms. At this point it does not appear to be life threatening and you do not need to stay in the hospital. If you do notice new or changing symptoms it would be very appropriate to return to the emergency department. I have sent a copy of this note including all of the studies and blood work to Dr. Ellington so she is aware of your progress. Prescriptions: No Action aspirin 81 MG tablet,delayed release (DR/EC) 81 mg PO DAILY Qty: 0 RF: 0 clopidogrel 75 mg tablet 75 mg PO DAILY RF: 0 amlodipine 10 mg tablet 10 mg PO DAILY RF: 0 escitalopram oxalate 5 mg tablet 5 mg PO DAILY RF: 0 cholecalciferol (vitamin D3) [Vitamin D3] 5,000 unit Tablet 5,000 unit PO DAILY RF: 0 nitroglycerin 0.4 mg tablet, sublingual 1 tab sublingual [id number] PRN (Reason: Chest Pain) RF: 0 rosuvastatin 40 mg tablet 40 mg PO QPM RF: 0 cyanocobalamin (vitamin B-12) 2,000 mcg Tablet 2,000 mcg PO DAILY RF: 0 potassium chloride 10 mEq capsule, extended release 10 meq PO DAILY RF: 0 furosemide 20 mg tablet 40 mg PO DAILY RF: 0 losartan 100 mg tablet 100 mg PO QPM RF: 0 metoprolol tartrate 25 mg tablet 12.5 mg PO BID RF: 0 alprazolam 0.5 mg Tablet 0.5 mg PO TID PRN (Reason: Anxiety) RF: 0 lidocaine 5 % Adhesive Patch,Medicated 1 patch TOPICAL DAILY PRN (Reason: Pain (Scale Score 1-3)) RF: 0 Referrals: Bethany Ellington MD [Family Provider] - Zoe Bass PA-C [Primary Care Provider] -
[2019-11-06 12:47] VITALS: BP 173/77; PULSE 63; RESP 20; O2SAT 96
[2019-11-06 13:27] LABS: Add Manual Diff / Slide Review NO; Basophils Absolute Auto 0 /uL (0-100); Basophils Percent Auto 0.5 % (0-2); Eosinophils Absolute Auto 100 /uL (0-450); Eosinophils Percent Auto 1.7 % (2-4); Hematocrit 40.6 % (36-46); Lymphocytes Absolute Auto 2600 /uL (1100-4500); Lymphocytes Percent Auto 32.1 % (25-40); Mean Corpuscular HGB Conc 34.5 % (30-36); Mean Corpuscular Hemoglobin 30.3 PG (26-34); Mean Corpuscular Volume 87.7 fL (80-100); Monocytes Absolute Auto 600 /uL (0-900); Monocytes Percent Auto 8.1 % (3-14); Neutrophils Absolute Auto 4600 /uL (1500-7000); Neutrophils Percent Auto 57.6 % (50-75); Platelet Count 261 X10^3/uL (150-400); Red Blood Cell Count 4.63 X10^6/uL (4.0-5.2); Red Cell Distribution Width 14.7 % (11.6-14.8); White Blood Cell Count 7.9 X10^3/uL (4.5-11.0)
[2019-11-06 13:32] VITALS: PULSE 61; RESP 12; O2SAT 97
[2019-11-06 13:36] LABS: INR 1.1 (0.9-1.3); Prothrombin Time 12.2 SECONDS (10.1-12.7)
[2019-11-06 13:38] LABS: PTT Partial Thromboplastin Tim 30 SECONDS (26.4-36.2)
[2019-11-06 13:40] LABS: Lactate (Lactic Acid) 1.8 mmol/L (0.7-2.1)
[2019-11-06 13:41] LABS: Alanine Aminotransferase 8 IU/L (<35); Albumin 4.5 g/dL (3.5-5.0); Albumin Globulin Ratio 1.6 (1.0-2.8); Alkaline Phosphatase 56 U/L (38-126); Aspartate Aminotransferase 27 IU/L (14-36); BUN Creatinine Ratio 17.8 (6-22); Bilirubin Total 0.5 mg/dL (0.2-1.3); Blood Urea Nitrogen 19 mg/dL (7-17); Calcium 9.9 mg/dL (8.4-10.2); Carbon Dioxide 33 mmol/L (22-32); Chloride 97 mmol/L (98-107); Creatine Kinase 49 U/L (30-135); Estimated Glomerular Filt Rate 49.1 mL/min (>60); Globulin 2.9 g/dL (1.7-4.1); Glucose 99 mg/dL (80-110); HEMOLYSIS < 15 (0-50); Lipase 166 U/L (23-300); Potassium 3.5 mmol/L (3.4-5.1); Sodium 138 mmol/L (137-145); Total Protein 7.4 g/dL (6.3-8.2)
[2019-11-06 13:52] LABS: Troponin I < 0.012 ng/mL (0.01-0.034)
[2019-11-06 13:55] LABS: Procalcitonin < 0.05 ng/mL (<0.5)
[2019-11-06 13:59] VITALS: BP 166/70
--- NOTE | 2019-11-06 14:03 | DI.CT.S_ITS ---
PROCEDURE: CT CHEST W CON INDICATIONS: dyspnea, ? developing pneumonia TECHNIQUE: After the administration of intravenous contrast, 5 mm thick sections acquired from the pulmonary apices to the posterior costophrenic angles. 1 mm axial lung, 5 mm thick coronal and sagittal reformats and 7 mm axial MIP were acquired. For radiation dose reduction, the following was used: automated exposure control, adjustment of mA and/or kV according to patient size. COMPARISON: [facility], CT, CT ANGIO CHEST PE, 07/08/2019, 11:59. FINDINGS: Image quality: Excellent. Lungs and pleura: No acute air space opacities. No change in mild chronic interstitial lung disease. No pleural effusions or pneumothorax. Central and peripheral airways are patent and normal in caliber. Mediastinum: Heart size is normal. Calcification of the coronary vasculature is present. No pericardial effusion. No mediastinal or hilar adenopathy by size criteria. Thoracic aorta and central pulmonary arteries are normal in size. Esophagus is normal in caliber. Moderate hiatal hernia. Bones and chest wall: No suspicious bony lesions. No vertebral body compression fractures. No axillary or supraclavicular adenopathy by size criteria. Thyroid gland is grossly unremarkable. Abdomen: Visualized upper abdominal solid organs appear normal. Upper abdominal bowel loops are normal in caliber. IMPRESSION: 1. No acute process. 2. No pulmonary embolus. 3. Mild chronic appearing interstitial lung disease. 4. Small hiatal hernia. Dictated by: Brandy Barakat M.D. on 11/06/2019 at 14:28 Approved by: Brandy Barakat M.D. on 11/06/2019 at 14:30
[2019-11-06] MEDS: ACETAMINOPHEN 325 MG TABLET 975 MG PO (14:04)
[2019-11-06 16:00] VITALS: BP 167/79; PULSE 67; RESP 18; O2SAT 98
== END 2019-11-06 16:35 | disposition home or self-care (01) ==
PROVIDERS: Emergency Provider Emergency Medicine; Family Provider Internal Medicine; PCP Physician Assistant Medical
DX: R06.00 Dyspnea, unspecified (principal); R53.81 Other malaise; R42 Dizziness and giddiness; I10 Essential (primary) hypertension; E78.5 Hyperlipidemia, unspecified; R07.9 Chest pain, unspecified
CPT/HCPCS: 36415; 71045; 71260; 80053; 81003; 82550; 83605; 83690; 84145; 84484; 85025; 85610; 85730; 87040; 93005; 99284; 99285

== ENCOUNTER 2019-11-18 12:08 | Emergency (ER) | payer MEDICARE, OTHER, SELFPAY ==
[2019-01-23 21:49] VITALS: BMI 33.3
[2019-11-18] VITALS (21 sets, daily range): BP systolic 125–201; BP diastolic 58–96; PULSE 54–67; RESP 7–34; TEMP 37.3; O2SAT 92–99
--- NOTE | 2019-11-18 12:25 | DI.RAD.S_ITS ---
PROCEDURE: XR CHEST 1V INDICATIONS: chest pain TECHNIQUE: One view of the chest was acquired. COMPARISON: [facility], CR, XR CHEST 1V, 11/06/2019, 12:39. [facility], CR, XR CHEST 1V, 09/19/2019, 20:44. FINDINGS: Surgical changes and devices: None. Lungs and pleura: Lungs are clear. No pleural effusions or pneumothorax. Mediastinum: Mediastinal contours appear normal. Heart size is normal. Bones and chest wall: No suspicious bony lesions. Overlying soft tissues appear unremarkable. IMPRESSION: Normal for age, source of current chest pain symptoms is not seen. Dictated by: Lino Ruiz M.D. on 11/18/2019 at 12:56 Approved by: Lino Ruiz M.D. on 11/18/2019 at 12:57
--- NOTE | 2019-11-18 13:44 | DI.CT.S_ITS ---
PROCEDURE: CT HEAD/BRAIN WO CON INDICATIONS: headache, htnsive, nausea TECHNIQUE: Noncontrast 4.5 mm thick angled axial sections acquired from the foramen magnum to the vertex, with coronal and sagittal reformats. For radiation dose reduction, the following was used: automated exposure control, adjustment of mA and/or kV according to patient size. COMPARISON: [facility], CT, CT HEAD WITHOUT CONTRAST, 03/11/2019, 18:22. FINDINGS: Image quality: Excellent. CSF spaces: Basal cisterns are patent. No extra-axial fluid collections. The ventricles are symmetric in size and shape. Brain: No intracranial bleeds or masses. There is cerebral volume loss for age, with resultant ventricular and sulcal prominence. There are periventricular and deep white matter chronic small vessel ischemic changes. There is intracranial internal carotid artery atherosclerosis. Skull and face: Calvarium and visualized facial bones appear intact, without suspicious lesions. Sinuses: Visualized sinuses and mastoids are clear. IMPRESSION: No acute intracranial disease process. Dictated by: Evelina York MD, PhD on 11/18/2019 at 13:53 Approved by: Evelina York MD, PhD on 11/18/2019 at 13:55
[2019-11-18] MEDS: CODEINE/ACETAMINOPHEN 30/300 TABLET 1 TAB PO (14:27)
[2019-11-18] MEDS: diphenhydrAMINE 25 MG TABLET PO (14:27)
[2019-11-18] MEDS: methocarbamoL 500 MG TABLET 750 MG PO (14:27)
[2019-11-18] MEDS: LIDOCAINE PATCH 1 EACH ADH..PATCH TOP (14:27)
[2019-11-18 15:20] LABS: Add Manual Diff / Slide Review NO; Basophils Absolute Auto 0 /uL (0-100); Basophils Percent Auto 0.4 % (0-2); Eosinophils Absolute Auto 0 /uL (0-450); Eosinophils Percent Auto 0.2 % (2-4); Hematocrit 43.3 % (36-46); Hemoglobin 14.4 g/dL (12.0-16.0); Lymphocytes Absolute Auto 2700 /uL (1100-4500); Lymphocytes Percent Auto 22.8 % (25-40); Mean Corpuscular HGB Conc 33.2 % (30-36); Mean Corpuscular Hemoglobin 29.2 PG (26-34); Mean Corpuscular Volume 87.9 fL (80-100); Monocytes Absolute Auto 800 /uL (0-900); Monocytes Percent Auto 6.5 % (3-14); Neutrophils Absolute Auto 8200 /uL (1500-7000); Neutrophils Percent Auto 70.1 % (50-75); Platelet Count 250 X10^3/uL (150-400); Red Blood Cell Count 4.92 X10^6/uL (4.0-5.2); Red Cell Distribution Width 15.1 % (11.6-14.8); White Blood Cell Count 11.7 X10^3/uL (4.5-11.0)
[2019-11-18 15:30] LABS: INR 1.1 (0.9-1.3); Prothrombin Time 12.2 SECONDS (10.1-12.7)
[2019-11-18 15:33] LABS: PTT Partial Thromboplastin Tim 24 SECONDS (26.4-36.2)
--- NOTE | 2019-11-18 16:52 | PC.NURSE ---
Chemistry labs remain pending. Lab contacted and advised there was an issue with the machine then the specimens were accidentally placed to the side. Running again and report 15 more minuted until resulted. Pt is alert and oriented. States her back pain is much better and headache 7/10. She originally stated 7/10 pain was tolerable but now would like to try more medication for pain control. Provider notified.
[2019-11-18 16:53] LABS: Alanine Aminotransferase 11 IU/L (<35); Albumin 4.4 g/dL (3.5-5.0); Albumin Globulin Ratio 1.5 (1.0-2.8); Alkaline Phosphatase 54 U/L (38-126); Aspartate Aminotransferase 32 IU/L (14-36); BUN Creatinine Ratio 27.1 (6-22); Bilirubin Total 0.5 mg/dL (0.2-1.3); Blood Urea Nitrogen 26 mg/dL (7-17); Calcium 9.6 mg/dL (8.4-10.2); Carbon Dioxide 29 mmol/L (22-32); Chloride 98 mmol/L (98-107); Creatine Kinase 26 U/L (30-135); Estimated Glomerular Filt Rate 55.6 mL/min (>60); Globulin 2.9 g/dL (1.7-4.1); Glucose 127 mg/dL (80-110); HEMOLYSIS < 15 (0-50); Lactate (Lactic Acid) 2.3 mmol/L (0.7-2.1); Lipase 990 U/L (23-300); Sodium 136 mmol/L (137-145); Total Protein 7.3 g/dL (6.3-8.2)
[2019-11-18] MEDS: ALPRAZolam 0.5 MG TABLET PO (17:00)
[2019-11-18 17:04] LABS: NT-proBNP (BNP-Adult 18+) 776 pg/mL (<450); Troponin I < 0.012 ng/mL (0.01-0.034)
[2019-11-18] MEDS: SODIUM CHLORIDE 0.9% 1,000 ML 1000 ML IV (17:06)
[2019-11-18 17:16] LABS: Reflexed Lactate in 2 Hours Y
[2019-11-18] MEDS: DEXAMETHASONE 10 MG/ML VIAL IV (18:19)
[2019-11-18] MEDS: METOCLOPRAMIDE 10 MG/2 ML INJ IV (18:19)
[2019-11-18] MEDS: diphenhydrAMINE 50 MG/ML VIAL 25 MG IV (18:20)
[2019-11-18 18:37] LABS: Lactate 2HR (Lactic Acid Rflx) 2.1 mmol/L (0.7-2.1)
--- NOTE | 2019-11-18 21:16 | ED.GENADULT ---
HPI - General Adult <Cherry Blake LIQUOR GALLERY OPERATOR-BC - Last Filed: 11/18/19 22:05> General Chief complaint: Hypertension Stated complaint: Headache, High BP, Lung Pain,Cough Time Seen by Provider: 11/18/19 13:08 Source: patient and family Mode of arrival: Wheelchair Limitations: no limitations History of Present Illness HPI narrative: The patient is an 84-year-old female nonsmoker with history of hypertension, back pain that she is ?sick of and a cough that has been ongoing for months. She states she woke up with a high blood pressure and headache today. She denies any chest pain, denies any abnormal shortness of breath, complains of pain on the right side of her back. She has tried Flexeril for and lidocaine patches but has not taken anything today. She denies any abdominal pain, nausea vomiting or diarrhea. She denies any thunderclap sensation. She has tried Tylenol for her headache and not taken anything else. She has had five negative coronavirus test. She denies any chest pain but complains of back pain, that has been consistent for the past several months. She denies any shortness of breath. She states she saw her primary care provider a few days ago and has an appointment tomorrow. Related Data Home Medications Medication Instructions Recorded Confirmed aspirin 81 mg PO DAILY #0 05/14/17 06/01/19 cyanocobalamin (vitamin B-12) 2,000 mcg PO DAILY 11/18/18 06/01/19 nitroglycerin 1 tab SUBLINGUAL [id number] PRN 11/18/18 06/01/19 rosuvastatin 40 mg PO QPM 11/18/18 06/01/19 furosemide 40 mg PO DAILY 01/23/19 06/01/19 losartan 100 mg PO QPM 01/23/19 06/01/19 metoprolol tartrate 12.5 mg PO BID 01/23/19 06/01/19 potassium chloride 10 meq PO DAILY 01/23/19 06/01/19 amlodipine 10 mg PO DAILY 05/03/19 06/01/19 cholecalciferol (vitamin D3) 5,000 unit PO DAILY 05/03/19 06/01/19 [Vitamin D3] clopidogrel 75 mg PO DAILY 05/03/19 06/01/19 escitalopram oxalate 5 mg PO DAILY 05/03/19 06/01/19 alprazolam 0.5 mg PO TID PRN 06/01/19 06/01/19 lidocaine 1 patch TOPICAL DAILY PRN 06/01/19 06/01/19 Previous Rx's Medication Instructions Recorded acetaminophen-codeine 1 tab PO Q4-6H PRN #7 tab 11/18/19 lidocaine 1 patch TOP DAILY PRN #15 each 11/18/19 methocarbamol 750 mg PO TID PRN #14 tab 11/18/19 Allergies Allergy/AdvReac Type Severity Reaction Status Date / Time erythromycin base Allergy Severe Rash Verified 11/06/19 12:57 [ERYTHROMYCIN BASE] ibuprofen [IBUPROFEN] Allergy Severe Rash Verified 11/06/19 12:57 Iodinated Contrast Media Allergy Severe Unconscious Verified 11/06/19 12:57 [IODINATED CONTRAST- ORAL AND IV DYE] morphine [MORPHINE] Allergy Severe Rash Verified 11/06/19 12:57 naproxen [From ALEVE] Allergy Severe Rash Verified 11/06/19 12:57 telmisartan [TELMISARTAN] Allergy Severe Rash Verified 11/06/19 12:57 Review of Systems <AMELIA Larose - Last Filed: 11/18/19 22:05> Review of Systems Narrative: GENERAL: Denies chills, fatigue, malaise, fever, sweats. HEENT: Denies sinus pain, ear pain, sore throat, difficulty swallowing, dizziness. RESPIRATORY: See HPI CARDIOVASCULAR: Denies chest pain, palpitations, orthopnea, edema, GASTROINTESTINAL: Denies nausea, vomiting, abdominal pain, diarrhea, constipation, melena. : Denies dysuria, frequency, incontinence, hematuria, urinary retention. MUSCULOSKELETAL: denies weakness, joint pain, or bony pain SKIN: Denies rash, skin lesions, or other NEUROLOGIC: See HPI PSYCHIATRIC: No concerning psychosocial issues. 12 point review of systems is negative except for those stated above Patient History <AMELIA Larose - Last Filed: 11/18/19 22:05> Medical History Cardiac arrest (Acute) Chest pain (Inactive) Coronary artery disease (Acute) Hyperlipidemia (Acute) Hypertension (Acute) Left hamstring muscle strain (Inactive) UTI (urinary tract infection) (Inactive) Surgical History H/O right heart catheterization (Inactive) History of appendectomy (Acute) History of breast implant removal (Acute) History of breast surgery (Acute) History of cholecystectomy (Acute) History of coronary artery stent placement (Acute) History of total abdominal hysterectomy (Acute) Social History household members: children Smoking Status: Never smoker Smoking Status: Never smoker alcohol intake frequency: holidays/special occasions only Substance Use Type: does not use Exam <AMELIA Larose - Last Filed: 11/18/19 22:05> Narrative Exam Narrative: GENERAL: Elderly chronically ill-appearing female no acute distress HEAD: Atraumatic. Normocephalic. No temporal or scalp tenderness. EYES: Pupils equal round and reactive. Extraocular motions intact. No scleral icterus. No injection or drainage. ENT: Nose without bleeding, purulent drainage or septal hematoma. Throat without erythema, tonsillar hypertrophy or exudate. Uvula midline. Airway patent. NECK: Trachea midline. No JVD or lymphadenopathy. Supple, nontender, no meningeal signs. CARDIOVASCULAR: Regular rate and rhythm RESPIRATORY: Clear to auscultation. Breath sounds equal bilaterally. No wheezes, rales, or rhonchi. Single dry cough. No increased respiratory effort. No accessory muscle use. GASTROINTESTINAL: Abdomen soft, non-tender, nondistended. No hepato-splenomegaly, or palpable masses. No guarding. EXTREMITIES: No clubbing, cyanosis, or edema. No joint tenderness, effusion, or edema noted. BACK: CT and L-spine are Nontender without deformity or crepitance. No flank tenderness. Pain to palpation right paraspinal muscle thoracic spine NEURO: AOx3. SKIN: No rash or erythema. Initial Vital Signs Initial Vital Signs: Vital Signs Temperature 99.1 F 11/18/19 12:13 Pulse Rate 60 11/18/19 12:13 Respiratory Rate 14 11/18/19 12:13 Blood Pressure 199/79 H 11/18/19 12:13 Pulse Oximetry 99 11/18/19 12:13 <Robby Holbrook MD - Last Filed: 12/06/19 07:47> Initial Vital Signs Initial Vital Signs: Vital Signs Temperature 99.1 F 11/18/19 12:13 Pulse Rate 60 11/18/19 12:13 Respiratory Rate 14 11/18/19 12:13 Blood Pressure 199/79 H 11/18/19 12:13 Pulse Oximetry 99 11/18/19 12:13 Scores <TESFAYE LaroseBC - Last Filed: 11/18/19 22:05> GCS Jarek coma scale eye opening: Spontaneous Jarek coma scale verbal response: Orientated Mary Esther coma scale motor response: Obey commands Jarek coma scale total score: 15 Course <AMELIA Larose - Last Filed: 11/18/19 22:05> Orders Ordered: Discontinued Medications Acetaminophen/Codeine Phosphate (Tylenol #3) 1 tab PO NOW ONE Stop: 11/18/19 14:14 Last Admin: 11/18/19 14:27 Dose: 1 tab Documented by: GRACE Alprazolam (Xanax) 0.5 mg PO NOW ONE Stop: 11/18/19 16:53 Last Admin: 11/18/19 17:00 Dose: 0.5 mg Documented by: GRACE Dexamethasone (Decadron) 10 mg IV NOW ONE Stop: 11/18/19 13:57 Last Admin: 11/18/19 14:01 Dose: Not Given Documented by: CATRACHITA Dexamethasone (Decadron) 10 mg IV NOW ONE Stop: 11/18/19 18:00 Last Admin: 11/18/19 18:19 Dose: 10 mg Documented by: GRACE Diphenhydramine HCl (Benadryl) 25 mg PO NOW ONE Stop: 11/18/19 14:14 Last Admin: 11/18/19 14:27 Dose: 25 mg Documented by: GRACE Diphenhydramine HCl (Benadryl) 25 mg IV NOW ONE Stop: 11/18/19 18:00 Last Admin: 11/18/19 18:20 Dose: 25 mg Documented by: GRACE Sodium Chloride (Normal Saline 0.9%) 1,000 mls @ 1,000 mls/hr IV BOLUS ONE Stop: 11/18/19 18:03 Last Admin: 11/18/19 17:06 Dose: 1,000 mls/hr Documented by: GRACE Lidocaine (Lidoderm) 1 each TOP NOW ONE Stop: 11/18/19 13:59 Last Admin: 11/18/19 14:27 Dose: 1 each Documented by: GRACE Methocarbamol (Robaxin) 750 mg PO NOW ONE Stop: 11/18/19 13:59 Last Admin: 11/18/19 14:27 Dose: 750 mg Documented by: GRACE Metoclopramide HCl (Reglan) 10 mg IV NOW ONE Stop: 11/18/19 18:00 Last Admin: 11/18/19 18:19 Dose: 10 mg Documented by: GRACE Vital Signs Vital signs: Vital Signs - 8 hr 11/18/19 14:01 11/18/19 14:10 11/18/19 14:35 Pulse Rate 56 L 57 L 60 Respiratory Rate 10 L 7 L 22 Blood Pressure 176/77 H 176/76 H 175/81 H Pulse Oximetry 94 94 95 11/18/19 15:00 11/18/19 15:30 11/18/19 15:40 Pulse Rate 60 54 L 55 L Respiratory Rate 14 10 L 18 Blood Pressure 194/79 H 190/76 H Pulse Oximetry 97 96 94 11/18/19 16:30 11/18/19 17:00 11/18/19 17:01 Pulse Rate 57 L 56 L 56 L Respiratory Rate 15 18 25 H Blood Pressure 189/79 H Pulse Oximetry 95 94 95 11/18/19 17:30 11/18/19 17:31 11/18/19 18:00 Pulse Rate 55 L 55 L 67 Respiratory Rate 13 20 24 Blood Pressure 163/72 H Pulse Oximetry 92 93 93 11/18/19 18:01 11/18/19 18:31 11/18/19 19:00 Pulse Rate 65 66 65 Respiratory Rate 34 H 14 20 Blood Pressure 156/67 H 135/62 Pulse Oximetry 94 95 92 11/18/19 19:01 Pulse Rate Respiratory Rate Blood Pressure 125/58 L Pulse Oximetry <Robby Holbrook MD - Last Filed: 12/06/19 07:47> Orders Ordered: Discontinued Medications Acetaminophen/Codeine Phosphate (Tylenol #3) 1 tab PO NOW ONE Stop: 11/18/19 14:14 Last Admin: 11/18/19 14:27 Dose: 1 tab Documented by: GRACE Alprazolam (Xanax) 0.5 mg PO NOW ONE Stop: 11/18/19 16:53 Last Admin: 11/18/19 17:00 Dose: 0.5 mg Documented by: GRACE Dexamethasone (Decadron) 10 mg IV NOW ONE Stop: 11/18/19 13:57 Last Admin: 11/18/19 14:01 Dose: Not Given Documented by: CATRACHITA Dexamethasone (Decadron) 10 mg IV NOW ONE Stop: 11/18/19 18:00 Last Admin: 11/18/19 18:19 Dose: 10 mg Documented by: GRACE Diphenhydramine HCl (Benadryl) 25 mg PO NOW ONE Stop: 11/18/19 14:14 Last Admin: 11/18/19 14:27 Dose: 25 mg Documented by: GRACE Diphenhydramine HCl (Benadryl) 25 mg IV NOW ONE Stop: 11/18/19 18:00 Last Admin: 11/18/19 18:20 Dose: 25 mg Documented by: GRACE Sodium Chloride (Normal Saline 0.9%) 1,000 mls @ 1,000 mls/hr IV BOLUS ONE Stop: 11/18/19 18:03 Last Admin: 11/18/19 17:06 Dose: 1,000 mls/hr Documented by: GRACE Lidocaine (Lidoderm) 1 each TOP NOW ONE Stop: 11/18/19 13:59 Last Admin: 11/18/19 14:27 Dose: 1 each Documented by: GRACE Methocarbamol (Robaxin) 750 mg PO NOW ONE Stop: 11/18/19 13:59 Last Admin: 11/18/19 14:27 Dose: 750 mg Documented by: GRACE Metoclopramide HCl (Reglan) 10 mg IV NOW ONE Stop: 11/18/19 18:00 Last Admin: 11/18/19 18:19 Dose: 10 mg Documented by: GRACE Vital Signs Vital signs: Vital Signs - 8 hr 11/18/19 14:01 11/18/19 14:10 11/18/19 14:35 Pulse Rate 56 L 57 L 60 Respiratory Rate 10 L 7 L 22 Blood Pressure 176/77 H 176/76 H 175/81 H Pulse Oximetry 94 94 95 11/18/19 15:00 11/18/19 15:30 11/18/19 15:40 Pulse Rate 60 54 L 55 L Respiratory Rate 14 10 L 18 Blood Pressure 194/79 H 190/76 H Pulse Oximetry 97 96 94 07/06/20 16:30 11/18/19 17:00 11/18/19 17:01 Pulse Rate 57 L 56 L 56 L Respiratory Rate 15 18 25 H Blood Pressure 189/79 H Pulse Oximetry 95 94 95 11/18/19 17:30 11/18/19 17:31 11/18/19 18:00 Pulse Rate 55 L 55 L 67 Respiratory Rate 13 20 24 Blood Pressure 163/72 H Pulse Oximetry 92 93 93 11/18/19 18:01 11/18/19 18:31 11/18/19 19:00 Pulse Rate 65 66 65 Respiratory Rate 34 H 14 20 Blood Pressure 156/67 H 135/62 Pulse Oximetry 94 95 92 11/18/19 19:01 Pulse Rate Respiratory Rate Blood Pressure 125/58 L Pulse Oximetry Medical Decision Making <Cherry Blake, LIQUOR GALLERY OPERATOR-BC - Last Filed: 11/18/19 22:05> Lab Data Result diagrams: 11/18/19 15:15 11/18/19 15:15 Labs: Lab Results 11/18/19 11/18/19 11/18/19 Range/Units 15:15 15:15 15:15 WBC 11.7 H (4.5-11.0) X10^3/uL RBC 4.92 (4.0-5.2) X10^6/uL Hgb 14.4 (12.0-16.0) g/dL Hct 43.3 (36-46) % MCV 87.9 (80-100) fL MCH 29.2 (26-34) PG MCHC 33.2 (30-36) % RDW 15.1 H (11.6-14.8) % Plt Count 250 (150-400) X10^3/uL Neut % (Auto) 70.1 (50-75) % Lymph % (Auto) 22.8 L (25-40) % Ashley % (Auto) 6.5 (3-14) % Eos % (Auto) 0.2 L (2-4) % Baso % (Auto) 0.4 (0-2) % Neut # (Auto) 8200 H (2832-5242) /uL Lymph # (Auto) 2700 (9263-4523) /uL Ashley # (Auto) 800 (0-900) /uL Eos # (Auto) 0 (0-450) /uL Baso # (Auto) 0 (0-100) /uL PT 12.2 (10.1-12.7) SECONDS INR 1.1 (0.9-1.3) APTT 24 L D (26.4-36.2) SECONDS Sodium 136 L (137-145) mmol/L Potassium 4.0 (3.4-5.1) mmol/L Chloride 98 (98-107) mmol/L Carbon Dioxide 29 (22-32) mmol/L BUN 26 H (7-17) mg/dL Creatinine 0.96 (0.52-1.04) mg/dL Estimated GFR 55.6 L (>60) mL/min BUN/Creatinine Ratio 27.1 H (6-22) Glucose 127 H (80-110) mg/dL Lactate (0.7-2.1) mmol/L Calcium 9.6 (8.4-10.2) mg/dL Total Bilirubin 0.5 (0.2-1.3) mg/dL AST 32 (14-36) IU/L ALT 11 (<35) IU/L Alkaline Phosphatase 54 (38-126) U/L Total Creatine Kinase 26 L (30-135) U/L CK-MB (CK-2) TNP CK-MB (CK-2) Rel Index TNP Troponin I < 0.012 (0.01-0.034) ng/mL NT-Pro-B Natriuret Pep 776 H (<450) pg/mL Total Protein 7.3 (6.3-8.2) g/dL Albumin 4.4 (3.5-5.0) g/dL Globulin 2.9 (1.7-4.1) g/dL Albumin/Globulin Ratio 1.5 (1.0-2.8) Lipase 990 H (23-300) U/L 11/18/19 11/18/19 Range/Units 15:15 18:19 WBC (4.5-11.0) X10^3/uL RBC (4.0-5.2) X10^6/uL Hgb (12.0-16.0) g/dL Hct (36-46) % MCV (80-100) fL MCH (26-34) PG MCHC (30-36) % RDW (11.6-14.8) % Plt Count (150-400) X10^3/uL Neut % (Auto) (50-75) % Lymph % (Auto) (25-40) % Ashley % (Auto) (3-14) % Eos % (Auto) (2-4) % Baso % (Auto) (0-2) % Neut # (Auto) (9941-5453) /uL Lymph # (Auto) (4218-8547) /uL Ashley # (Auto) (0-900) /uL Eos # (Auto) (0-450) /uL Baso # (Auto) (0-100) /uL PT (10.1-12.7) SECONDS INR (0.9-1.3) APTT (26.4-36.2) SECONDS Sodium (137-145) mmol/L Potassium (3.4-5.1) mmol/L Chloride (98-107) mmol/L Carbon Dioxide (22-32) mmol/L BUN (7-17) mg/dL Creatinine (0.52-1.04) mg/dL Estimated GFR (>60) mL/min BUN/Creatinine Ratio (6-22) Glucose (80-110) mg/dL Lactate 2.3 H 2.1 (0.7-2.1) mmol/L Calcium (8.4-10.2) mg/dL Total Bilirubin (0.2-1.3) mg/dL AST (14-36) IU/L ALT (<35) IU/L Alkaline Phosphatase (38-126) U/L Total Creatine Kinase (30-135) U/L CK-MB (CK-2) CK-MB (CK-2) Rel Index Troponin I (0.01-0.034) ng/mL NT-Pro-B Natriuret Pep (<450) pg/mL Total Protein (6.3-8.2) g/dL Albumin (3.5-5.0) g/dL Globulin (1.7-4.1) g/dL Albumin/Globulin Ratio (1.0-2.8) Lipase (23-300) U/L Urine Dip Bedside Urine Glucose Negative Bedside Urine Bilirubin - Negative Bedside Urine Ketone - Negative Urine Specific Troy 1.020 Bedside Urine Occult Blood - Negative Bedside Urine pH 6.0 Bedside Urine Protein - Negative Bedside Urine Urobilinogen - Negative Bedside Urine Nitrite - Negative Bedside Urine Leukocytes - Negative Esterase Point of care testing: Urine Dip Bedside Urine Glucose Negative Bedside Urine Bilirubin - Negative Bedside Urine Ketone - Negative Urine Specific Troy 1.020 Bedside Urine Occult Blood - Negative Bedside Urine pH 6.0 Bedside Urine Protein - Negative Bedside Urine Urobilinogen - Negative Bedside Urine Nitrite - Negative Bedside Urine Leukocytes - Negative Esterase Imaging Data CT scan - head: Radiologist's Impression: [address] [place] [id number] Scan Report Signed Patient: Lida Townsend TMR#: [id number] : 8Acct:[id number] Age/Sex: 84 / FDate of Service: 11/18/19 Loc: ED Accession Number: [id number] Procedure: CT head/brain wo con Ordering Provider: Cherry Blake LIQUOR GALLERY OPERATOR- PROCEDURE: CT HEAD/BRAIN WO CON INDICATIONS: headache, htnsive, nausea TECHNIQUE: Noncontrast 4.5 mm thick angled axial sections acquired from the foramen magnum to the vertex, with coronal and sagittal reformats. For radiation dose reduction, the following was used: automated exposure control, adjustment of mA and/or kV according to patient size. COMPARISON: [facility], CT, CT HEAD WITHOUT CONTRAST, 03/11/2019, 18:22. FINDINGS: Image quality: Excellent. CSF spaces: Basal cisterns are patent. No extra-axial fluid collections. The ventricles are symmetric in size and shape. Brain: No intracranial bleeds or masses. There is cerebral volume loss for age, with resultant ventricular and sulcal prominence. There are periventricular and deep white matter chronic small vessel ischemic changes. There is intracranial internal carotid artery atherosclerosis. Skull and face: Calvarium and visualized facial bones appear intact, without suspicious lesions. Sinuses: Visualized sinuses and mastoids are clear. IMPRESSION: No acute intracranial disease process. Dictated by: Evelina York MD, PhD on 11/18/2019 at 13:53 Approved by: Evelina York MD, PhD on 11/18/2019 at 13:55 Chest x-ray: Radiologist's Impression: [address] [place] [id number] XRay Report Signed Patient: Lida Townsend TMR#: [id number] : 8Acct:[id number] Age/Sex: 84 / FDate of Service: 11/18/19 Loc: ED Accession Number: [id number] Procedure: XR chest 1V Ordering Provider: Robby Holbrook MD PROCEDURE: XR CHEST 1V INDICATIONS: chest pain TECHNIQUE: One view of the chest was acquired. COMPARISON: [facility], CR, XR CHEST 1V, 11/06/2019, 12:39. [facility], CR, XR CHEST 1V, 09/19/2019, 20:44. FINDINGS: Surgical changes and devices: None. Lungs and pleura: Lungs are clear. No pleural effusions or pneumothorax. Mediastinum: Mediastinal contours appear normal. Heart size is normal. Bones and chest wall: No suspicious bony lesions. Overlying soft tissues appear unremarkable. IMPRESSION: Normal for age, source of current chest pain symptoms is not seen. Dictated by: Lino Ruiz M.D. on 11/18/2019 at 12:56 Approved by: Lino Ruiz M.D. on 11/18/2019 at 12:57 ECG Data Attestation: I personally reviewed and interpreted this ECG as follows: Interpretation: Sinus rhythm. Ventricular rate 57. P.r. interval 180. QRS 96. Viewed by Dr Holbrook MDM Narrative Medical decision making narrative: The patient is an 84-year-old female who presents with a complicated medical history with a chief complaint of a headache and hypertension this morning. Her head CT shows no acute findings, which is obtain due to her headache as well as the hypertensive blood pressures and the fact she is on Plavix. She also complains of pain that has been ongoing for the past several months and she has had multiple evaluations in this emergency department as well as by her primary care provider. She complains of mostly paraspinal muscle pain to palpation on her right thoracic paraspinal muscles. She feels much improved after the above-stated therapies initial lactate was 2.3, which improved after some fluids. The patient appeared to be dehydrated initially. Her lab work was difficult to obtain, as well as difficulties with laboratory equipment which caused a delay in her lab work. After the above-stated therapies, the patient felt much improved. I discussed the patient with Dr Holbrook,, especially given her symptoms of headache, hypertension as well as her elevated lactate and her follow-up lactate. Patient and daughter request to go home state understanding of an you return precautions including chest pain shortness of breath etcetera as well as follow-up care with primary care provider, which is scheduled tomorrow. Patient and daughter have no questions or concerns upon discharge and state understanding of return precautions as well as follow-up care. <Robby Holbrook MD - Last Filed: 12/06/19 07:47> Lab Data Labs: Lab Results 11/18/19 11/18/19 11/18/19 Range/Units 15:15 15:15 15:15 WBC 11.7 H (4.5-11.0) X10^3/uL RBC 4.92 (4.0-5.2) X10^6/uL Hgb 14.4 (12.0-16.0) g/dL Hct 43.3 (36-46) % MCV 87.9 (80-100) fL MCH 29.2 (26-34) PG MCHC 33.2 (30-36) % RDW 15.1 H (11.6-14.8) % Plt Count 250 (150-400) X10^3/uL Neut % (Auto) 70.1 (50-75) % Lymph % (Auto) 22.8 L (25-40) % Ashley % (Auto) 6.5 (3-14) % Eos % (Auto) 0.2 L (2-4) % Baso % (Auto) 0.4 (0-2) % Neut # (Auto) 8200 H (6388-4294) /uL Lymph # (Auto) 2700 (6291-8108) /uL Ashley # (Auto) 800 (0-900) /uL Eos # (Auto) 0 (0-450) /uL Baso # (Auto) 0 (0-100) /uL PT 12.2 (10.1-12.7) SECONDS INR 1.1 (0.9-1.3) APTT 24 L D (26.4-36.2) SECONDS Sodium 136 L (137-145) mmol/L Potassium 4.0 (3.4-5.1) mmol/L Chloride 98 (98-107) mmol/L Carbon Dioxide 29 (22-32) mmol/L BUN 26 H (7-17) mg/dL Creatinine 0.96 (0.52-1.04) mg/dL Estimated GFR 55.6 L (>60) mL/min BUN/Creatinine Ratio 27.1 H (6-22) Glucose 127 H (80-110) mg/dL Lactate (0.7-2.1) mmol/L Calcium 9.6 (8.4-10.2) mg/dL Total Bilirubin 0.5 (0.2-1.3) mg/dL AST 32 (14-36) IU/L ALT 11 (<35) IU/L Alkaline Phosphatase 54 (38-126) U/L Total Creatine Kinase 26 L (30-135) U/L CK-MB (CK-2) TNP CK-MB (CK-2) Rel Index TNP Troponin I < 0.012 (0.01-0.034) ng/mL NT-Pro-B Natriuret Pep 776 H (<450) pg/mL Total Protein 7.3 (6.3-8.2) g/dL Albumin 4.4 (3.5-5.0) g/dL Globulin 2.9 (1.7-4.1) g/dL Albumin/Globulin Ratio 1.5 (1.0-2.8) Lipase 990 H (23-300) U/L 11/18/19 11/18/19 Range/Units 15:15 18:19 WBC (4.5-11.0) X10^3/uL RBC (4.0-5.2) X10^6/uL Hgb (12.0-16.0) g/dL Hct (36-46) % MCV (80-100) fL MCH (26-34) PG MCHC (30-36) % RDW (11.6-14.8) % Plt Count (150-400) X10^3/uL Neut % (Auto) (50-75) % Lymph % (Auto) (25-40) % Ashley % (Auto) (3-14) % Eos % (Auto) (2-4) % Baso % (Auto) (0-2) % Neut # (Auto) (5071-2093) /uL Lymph # (Auto) (0372-2143) /uL Ashley # (Auto) (0-900) /uL Eos # (Auto) (0-450) /uL Baso # (Auto) (0-100) /uL PT (10.1-12.7) SECONDS INR (0.9-1.3) APTT (26.4-36.2) SECONDS Sodium (137-145) mmol/L Potassium (3.4-5.1) mmol/L Chloride (98-107) mmol/L Carbon Dioxide (22-32) mmol/L BUN (7-17) mg/dL Creatinine (0.52-1.04) mg/dL Estimated GFR (>60) mL/min BUN/Creatinine Ratio (6-22) Glucose (80-110) mg/dL Lactate 2.3 H 2.1 (0.7-2.1) mmol/L Calcium (8.4-10.2) mg/dL Total Bilirubin (0.2-1.3) mg/dL AST (14-36) IU/L ALT (<35) IU/L Alkaline Phosphatase (38-126) U/L Total Creatine Kinase (30-135) U/L CK-MB (CK-2) CK-MB (CK-2) Rel Index Troponin I (0.01-0.034) ng/mL NT-Pro-B Natriuret Pep (<450) pg/mL Total Protein (6.3-8.2) g/dL Albumin (3.5-5.0) g/dL Globulin (1.7-4.1) g/dL Albumin/Globulin Ratio (1.0-2.8) Lipase (23-300) U/L Urine Dip Bedside Urine Glucose Negative Bedside Urine Bilirubin - Negative Bedside Urine Ketone - Negative Urine Specific Troy 1.020 Bedside Urine Occult Blood - Negative Bedside Urine pH 6.0 Bedside Urine Protein - Negative Bedside Urine Urobilinogen - Negative Bedside Urine Nitrite - Negative Bedside Urine Leukocytes - Negative Esterase Point of care testing: Urine Dip Bedside Urine Glucose Negative Bedside Urine Bilirubin - Negative Bedside Urine Ketone - Negative Urine Specific Troy 1.020 Bedside Urine Occult Blood - Negative Bedside Urine pH 6.0 Bedside Urine Protein - Negative Bedside Urine Urobilinogen - Negative Bedside Urine Nitrite - Negative Bedside Urine Leukocytes - Negative Esterase Discharge Plan Departure Patient Disposition: Home Clinical Impression: Headache, Back muscle spasm Discharge Date/Time: 11/18/19 19:20 Instructions: DI for High Blood Pressure, DI for Headache, DI for Thoracic Back Pain, DI for Muscle Spasm Activity Restrictions/Additional Instructions: Thank you for trusting us with your care today As I discussed, your lab work came back well, your head CT came back well as well as your chest x-ray. When we treated your pain, your blood pressure improved greatly. I sent 3 prescriptions to [facility] including Tylenol 3 lidocaine patches as well as methocarbamol. Tylenol 3 has a narcotic component. I have given you a prescription of a narcotic for pain. Be aware that this can be constipating and sedating. I encouraged taking with a stool softener, pushing fluids and fiber. Do not take and drive, operate heavy machinery, etc. Do not combine it with any other sedating substances such as alcohol. The combination of narcotics and alcohol and/or other sedatives can be lethal. Please do not combine the methocarbamol with the cyclobenzaprine or Flexeril at home. These at the same kind of medications and cannot be taken together. Please follow-up with primary care provider tomorrow as previously scheduled Please come back to the emergency department for any acute concerns Prescriptions: New lidocaine 5 % adhesive patch,medicated 1 patch TOP DAILY PRN (Reason: pain) Qty: 15 RF: 0 methocarbamol 750 mg tablet 750 mg PO TID PRN (Reason: muscle spasm) Qty: 14 RF: 0 acetaminophen-codeine 300-30 mg tablet 1 tab PO Q4-6H PRN (Reason: pain) Qty: 7 RF: 0 No Action aspirin 81 MG tablet,delayed release (DR/EC) 81 mg PO DAILY Qty: 0 RF: 0 clopidogrel 75 mg tablet 75 mg PO DAILY RF: 0 amlodipine 10 mg tablet 10 mg PO DAILY RF: 0 escitalopram oxalate 5 mg tablet 5 mg PO DAILY RF: 0 cholecalciferol (vitamin D3) [Vitamin D3] 5,000 unit Tablet 5,000 unit PO DAILY RF: 0 nitroglycerin 0.4 mg tablet, sublingual 1 tab sublingual [id number] PRN (Reason: Chest Pain) RF: 0 rosuvastatin 40 mg tablet 40 mg PO QPM RF: 0 cyanocobalamin (vitamin B-12) 2,000 mcg Tablet 2,000 mcg PO DAILY RF: 0 potassium chloride 10 mEq capsule, extended release 10 meq PO DAILY RF: 0 furosemide 20 mg tablet 40 mg PO DAILY RF: 0 losartan 100 mg tablet 100 mg PO QPM RF: 0 metoprolol tartrate 25 mg tablet 12.5 mg PO BID RF: 0 alprazolam 0.5 mg Tablet 0.5 mg PO TID PRN (Reason: Anxiety) RF: 0 lidocaine 5 % Adhesive Patch,Medicated 1 patch TOPICAL DAILY PRN (Reason: Pain (Scale Score 1-3)) RF: 0 Referrals: Zoe Bass PA-C [Primary Care Provider] -
--- NOTE | 2019-12-04 13:33 | PC.NURSE ---
NS IV stop time 187
== END 2019-11-18 19:20 | disposition home or self-care (01) ==
PROVIDERS: Emergency Medicine; Emergency Provider Nurse Practitioner Family; Family Provider Internal Medicine; PCP Physician Assistant Medical
DX: M62.830 Muscle spasm of back (principal); G44.89 Other headache syndrome; I10 Essential (primary) hypertension; R05 Cough; M54.9 Dorsalgia, unspecified; R07.9 Chest pain, unspecified
CPT/HCPCS: 36415; 70450; 71045; 80053; 81003; 82550; 83605; 83690; 83880; 84484; 85025; 85610; 85730; 93005; 96361; 96374; 96375; 99285; J1100; J1200; J2765

== ENCOUNTER 2019-12-09 15:19 | Emergency (ER) | payer MEDICARE, OTHER, SELFPAY ==
[2019-01-23 21:49] VITALS: BMI 33.3
[2019-12-09] VITALS (38 sets, daily range): BP systolic 99–199; BP diastolic 52–83; PULSE 59–72; RESP 10–41; TEMP 36.7; O2SAT 93–99
--- NOTE | 2019-12-09 15:27 | DI.RAD.S_ITS ---
PROCEDURE: XR CHEST 1V INDICATIONS: chest pain TECHNIQUE: One view of the chest was acquired. COMPARISON: [facility], CR, XR CHEST 1V, 11/18/2019, 12:43. [facility], CR, XR CHEST 1V, 11/06/2019, 12:39. FINDINGS: Surgical changes and devices: None. Lungs and pleura: Lungs are abnormal with interstitial prominence. No pleural effusions or pneumothorax. Mediastinum: Mediastinal contours appear normal. Heart size is normal. Bones and chest wall: No suspicious bony lesions. Overlying soft tissues appear unremarkable. IMPRESSION: Interstitial prominence, no acute disease. Dictated by: Lino Ruiz M.D. on 12/09/2019 at 16:36 Approved by: Lino Ruiz M.D. on 12/09/2019 at 16:37
--- NOTE | 2019-12-09 15:52 | PC.NURSE ---
Reports bilateral leg pain in lower legs up into groins. Reports SOB with excertion. pain in chest started tow days ago reports. Pressure is across chest and into back between shoulder blades.
[2019-12-09 16:10] LABS: Add Manual Diff / Slide Review NO; Basophils Absolute Auto 0 /uL (0-100); Basophils Percent Auto 0.5 % (0-2); Eosinophils Absolute Auto 200 /uL (0-450); Eosinophils Percent Auto 2.8 % (2-4); Hematocrit 41.5 % (36-46); Hemoglobin 13.8 g/dL (12.0-16.0); Lymphocytes Absolute Auto 2200 /uL (1100-4500); Lymphocytes Percent Auto 39.7 % (25-40); Mean Corpuscular HGB Conc 33.2 % (30-36); Mean Corpuscular Volume 87.5 fL (80-100); Monocytes Absolute Auto 500 /uL (0-900); Monocytes Percent Auto 8.3 % (3-14); Neutrophils Absolute Auto 2700 /uL (1500-7000); Neutrophils Percent Auto 48.7 % (50-75); Platelet Count 238 X10^3/uL (150-400); Red Blood Cell Count 4.74 X10^6/uL (4.0-5.2); Red Cell Distribution Width 15.3 % (11.6-14.8); White Blood Cell Count 5.6 X10^3/uL (4.5-11.0)
[2019-12-09 16:28] LABS: Alanine Aminotransferase 10 IU/L (<35); Albumin 4.1 g/dL (3.5-5.0); Albumin Globulin Ratio 1.5 (1.0-2.8); Alkaline Phosphatase 61 U/L (38-126); Aspartate Aminotransferase 23 IU/L (14-36); BUN Creatinine Ratio 19.6 (6-22); Bilirubin Total 0.4 mg/dL (0.2-1.3); Blood Urea Nitrogen 18 mg/dL (7-17); Calcium 9.3 mg/dL (8.4-10.2); Carbon Dioxide 29 mmol/L (22-32); Chloride 101 mmol/L (98-107); Creatine Kinase 38 U/L (30-135); Estimated Glomerular Filt Rate 58.4 mL/min (>60); Globulin 2.7 g/dL (1.7-4.1); Glucose 140 mg/dL (80-110); HEMOLYSIS < 15 (0-50); Lipase 226 U/L (23-300); Potassium 3.6 mmol/L (3.4-5.1); Sodium 138 mmol/L (137-145); Total Protein 6.8 g/dL (6.3-8.2)
[2019-12-09 16:28] LABS: PTT Partial Thromboplastin Tim 29 SECONDS (26.4-36.2)
[2019-12-09 16:40] LABS: Troponin I < 0.012 ng/mL (0.01-0.034)
--- NOTE | 2019-12-09 16:45 | DI.CT.S_ITS ---
PROCEDURE: CT ANGIO CHEST PE PROTOCOL INDICATIONS: sob TECHNIQUE: After the administration of intravenous contrast, 2 mm thick sections acquired from the pulmonary apices to the posterior costophrenic angles. 3-dimensional maximum intensity projection (MIP) coronal and sagittal reformats were then acquired through the thorax. For radiation dose reduction, the following was used: automated exposure control, adjustment of mA and/or kV according to patient size. The patient was pre-medicated for an iodine allergy. No immediate contrast reactions were experienced. COMPARISON: [facility], CT, CT ANGIO CHEST PE PROTOCOL, 09/20/2018, 12:12. [facility], CR, XR CHEST 1V, 12/09/2019, 16:23. [facility], CT, CT ANGIO CHEST PE PROTOCOL, 03/21/2019, 2:38. FINDINGS: Image quality: Excellent. Pulmonary arteries: Pulmonary arteries are normal in size, and demonstrate no intraluminal filling defects to suggest central pulmonary embolism. Lungs and pleura: Mild dependent atelectasis is seen. No pleural effusions or pneumothorax. Central and peripheral airways are patent. Mediastinum: Heart size is moderately enlarged, without pericardial effusion. Coronary artery calcifications are seen. No mediastinal or hilar adenopathy. Thoracic aorta is normal in caliber and enhancement. Esophagus is normal in caliber. There is a small hiatal hernia. Bones and chest wall: There is again seen a superficial lesion involving the right superior breast, which is similar to the 09/20/2018 examination. No suspicious bony lesions. Ribs and thoracic spine appear intact throughout. Thyroid gland demonstrates no significant abnormality. No axillary or supraclavicular adenopathy. Abdomen: Visualized upper abdominal solid organs appear normal in the early arterial phase of enhancement. IMPRESSION: Negative for pulmonary embolism. Moderate cardiomegaly. Right breast lesion again seen. Incidental note is made of: Mild dependent atelectasis Small hiatal hernia Coronary artery calcification Dictated by: Venkat Tucker M.D. on 12/09/2019 at 16:26 Approved by: Venkat Tucker M.D. on 12/09/2019 at 16:29
--- NOTE | 2019-12-09 16:45 | DI.US.S_ITS ---
PROCEDURE: [facility] VENOUS LOW EXTREM BI INDICATIONS: PAIN BEHIND KNEES AND LEG SWELLING TECHNIQUE: Real-time imaging, as well as color and pulse Doppler interrogation, were performed of the deep veins of both legs from the inguinal ligament to the popliteal fossa. COMPARISON: [facility], [facility] VENOUS LOW EXTREM BI, 06/01/2019, 18:57. [facility], [facility] VENOUS LOW EXTREM BI, 02/22/2019, 14:25. FINDINGS: Right: The common femoral, femoral and popliteal veins are normally compressible, and free of intraluminal thrombus. Color and pulse Doppler demonstrate normal phasic intravascular flow. There is normal augmentation response to distal compression maneuver. Left: The common femoral, femoral and popliteal veins are normally compressible, and free of intraluminal thrombus. Color and pulse Doppler demonstrate normal phasic intravascular flow. There is normal augmentation response to distal compression maneuver. IMPRESSION: No evidence of deep vein thrombosis of the bilateral lower extremities. Dictated by: Juventino Acosta M.D. on 12/09/2019 at 16:52 Approved by: Juventino Acosta M.D. on 12/09/2019 at 16:52
--- NOTE | 2019-12-09 16:48 | ED_ITS ---
HPI - Chest Pain General Chief Complaint: Chest Pain Stated Complaint: PAIN BOTH LEGS PRESSURE OF THE CHEST Time Seen by Provider: 12/09/19 15:41 Source: patient and family Mode of arrival: Wheelchair Limitations: no limitations History of Present Illness HPI narrative: 84-year-old female with history of coronary artery disease with multiple stents heart catheterizations, hyperlipidemia hypertension she did for STEMI in April 2019, recent hospitalization 09/09/2019 chest pain was felt to be noncardiac she had a heart catheterization in 09/20/2019 which showed LAD stents open and proximal right coronary artery stent, she has also had 7-COVID-19 tests. She presents today with chest pain and shortness of breath. She says she has had some epigastric pain ongoing for the last day or so however this today it se emed worse than normal. It seems to stay in her epigastric area without radiation. She has noticed increasing shortness of breath with exertion and orthopnea. She is also complaining of leg pain behind her knees bilaterally, he says that aching have also started the last day or so. She does not like coming to the hospital because she says she always gets a heart catheterization. Related Data Home Medications Medication Instructions Recorded Confirmed aspirin 81 mg PO DAILY #0 05/14/17 06/01/19 cyanocobalamin (vitamin B-12) 2,000 mcg PO DAILY 11/18/18 06/01/19 nitroglycerin 1 tab SUBLINGUAL [id number] PRN 11/18/18 06/01/19 rosuvastatin 40 mg PO QPM 11/18/18 06/01/19 furosemide 40 mg PO DAILY 01/23/19 06/01/19 losartan 100 mg PO QPM 01/23/19 06/01/19 metoprolol tartrate 12.5 mg PO BID 01/23/19 06/01/19 potassium chloride 10 meq PO DAILY 01/23/19 06/01/19 amlodipine 10 mg PO DAILY 05/03/19 06/01/19 cholecalciferol (vitamin D3) 5,000 unit PO DAILY 05/03/19 06/01/19 [Vitamin D3] clopidogrel 75 mg PO DAILY 05/03/19 06/01/19 escitalopram oxalate 5 mg PO DAILY 05/03/19 06/01/19 alprazolam 0.5 mg PO TID PRN 06/01/19 06/01/19 lidocaine 1 patch TOPICAL DAILY PRN 06/01/19 06/01/19 Previous Rx's Medication Instructions Recorded acetaminophen-codeine 1 tab PO Q4-6H PRN #7 tab 11/18/19 lidocaine 1 patch TOP DAILY PRN #15 each 11/18/19 methocarbamol 750 mg PO TID PRN #14 tab 11/18/19 Allergies Allergy/AdvReac Type Severity Reaction Status Date / Time erythromycin base Allergy Severe Rash Verified 11/06/19 12:57 [ERYTHROMYCIN BASE] ibuprofen [IBUPROFEN] Allergy Severe Rash Verified 11/06/19 12:57 Iodinated Contrast Media Allergy Severe Unconscious Verified 11/06/19 12:57 [IODINATED CONTRAST- ORAL AND IV DYE] morphine [MORPHINE] Allergy Severe Rash Verified 11/06/19 12:57 naproxen [From ALEVE] Allergy Severe Rash Verified 11/06/19 12:57 telmisartan [TELMISARTAN] Allergy Severe Rash Verified 11/06/19 12:57 Review of Systems Review of Systems ROS Unobtainable: All systems reviewed & are unremarkable except as noted in HPI and below Constitutional Constitutional: Denies chills, Denies fever(s), Denies lethargy and Denies weakness Eyes Eyes: Denies change in vision, Denies eye discharge, Denies irritation and Denies loss of vision Cardiovascular Cardiovascular: Reports as per HPI Respiratory Respiratory: Reports as per HPI Gastrointestinal Gastrointestinal: Denies abdominal pain, Denies change in bowel habits, Denies diarrhea, Denies nausea and Denies vomiting Integumentary/Breasts Skin/Breast: Denies pruritus, Denies erythema, Denies rash and Denies wounds Neurologic Neurologic: Denies loss of vision and Denies weakness Patient History Medical History Cardiac arrest (Acute) Chest pain (Inactive) Coronary artery disease (Acute) Hyperlipidemia (Acute) Hypertension (Acute) Left hamstring muscle strain (Inactive) UTI (urinary tract infection) (Inactive) Surgical History H/O right heart catheterization (Inactive) History of appendectomy (Acute) History of breast implant removal (Acute) History of breast surgery (Acute) History of cholecystectomy (Acute) History of coronary artery stent placement (Acute) History of total abdominal hysterectomy (Acute) Social History household members: children Smoking Status: Never smoker Smoking Status: Never smoker alcohol intake frequency: holidays/special occasions only Substance Use Type: does not use Exam Initial Vital Signs Initial Vital Signs: Vital Signs Pulse Rate 70 12/09/19 15:29 Respiratory Rate 17 12/09/19 15:29 Pulse Oximetry 99 12/09/19 15:29 GENERAL: Pleasant alert elderly female no acute distress HEENT: Head atraumatic,EOMI, pupils reactive, face symmetric CARDIOVASCULAR: Regular rate and rhythm without murmurs, rubs or gallops. RESPIRATORY: Breath sounds equal bilaterally, no wheezes rales or rhonchi. ABDOMEN: Soft, nontender. Normoactive bowel sounds all 4 quadrants. No guarding or rebound. EXTREMITIES: Normal range of motion, no clubbing or edema. Neurovascularly intact NEUROLOGICAL: Alert and oriented x4.Normal gait and speech. SKIN: Warm, dry, no laceration, no petechiae, no rashes or lesions. Course Orders Ordered: Discontinued Medications Diphenhydramine HCl (Benadryl) 25 mg IV NOW ONE Stop: 12/09/19 16:51 Last Admin: 12/09/19 16:59 Dose: 25 mg Documented by: CATRACHITA Furosemide (Lasix) 40 mg IV NOW ONE Stop: 12/09/19 18:40 Last Admin: 12/09/19 18:48 Dose: 40 mg Documented by: DANIEL Methylprednisolone (Solu-Medrol 125 Mg Vial) 125 mg IV NOW ONE Stop: 12/09/19 16:51 Last Admin: 12/09/19 16:59 Dose: 125 mg Documented by: CATRACHITA Nitroglycerin (Nitrostat) 0.4 mg SL NOW ONE Stop: 12/09/19 16:46 Last Admin: 12/09/19 16:56 Dose: 0.4 mg Documented by: CATRACHITA Consultations Consultation #1: Dr. Menchaca, cardiology recommends Lasix in the ED and follow-up. Time: 18:31 Vital Signs Vital signs: Vital Signs - 8 hr 12/09/19 15:29 12/09/19 15:30 12/09/19 15:31 Temperature Pulse Rate 70 69 69 Respiratory Rate 17 13 Blood Pressure 199/80 H Pulse Oximetry 99 97 97 12/09/19 15:52 12/09/19 16:00 12/09/19 16:30 Temperature 98.0 F Pulse Rate 62 61 59 L Respiratory Rate 21 22 24 Blood Pressure 199/80 H Pulse Oximetry 98 97 96 12/09/19 16:38 12/09/19 16:56 12/09/19 16:57 Temperature Pulse Rate 62 59 L 59 L Respiratory Rate 30 H 20 Blood Pressure 110/77 177/74 H 177/74 H Pulse Oximetry 94 96 12/09/19 17:00 12/09/19 17:01 12/09/19 17:02 Temperature Pulse Rate 62 62 63 Respiratory Rate 17 17 16 Blood Pressure 99/52 L 103/55 L Pulse Oximetry 96 95 95 12/09/19 17:05 12/09/19 17:20 12/09/19 17:21 Temperature Pulse Rate 61 72 71 Respiratory Rate 23 41 H 31 H Blood Pressure 104/53 L 186/83 H Pulse Oximetry 95 95 94 MDM - Chest Pain Lab Data Attestation: I reviewed the patient's lab results. Result diagrams: 12/09/19 15:51 12/09/19 15:51 Labs: Lab Results 12/09/19 12/09/19 12/09/19 Range/Units 15:51 15:51 16:10 WBC 5.6 (4.5-11.0) X10^3/uL RBC 4.74 (4.0-5.2) X10^6/uL Hgb 13.8 (12.0-16.0) g/dL Hct 41.5 (36-46) % MCV 87.5 (80-100) fL MCH 29.0 (26-34) PG MCHC 33.2 (30-36) % RDW 15.3 H (11.6-14.8) % Plt Count 238 (150-400) X10^3/uL Neut % (Auto) 48.7 L (50-75) % Lymph % (Auto) 39.7 (25-40) % Hartley % (Auto) 8.3 (3-14) % Eos % (Auto) 2.8 (2-4) % Baso % (Auto) 0.5 (0-2) % Neut # (Auto) 2700 (1600-6228) /uL Lymph # (Auto) 2200 (8614-3488) /uL Hartley # (Auto) 500 (0-900) /uL Eos # (Auto) 200 (0-450) /uL Baso # (Auto) 0 (0-100) /uL PT (10.1-12.7) SECONDS INR (0.9-1.3) APTT (26.4-36.2) SECONDS Sodium 138 (137-145) mmol/L Potassium 3.6 (3.4-5.1) mmol/L Chloride 101 (98-107) mmol/L Carbon Dioxide 29 (22-32) mmol/L BUN 18 H (7-17) mg/dL Creatinine 0.92 (0.52-1.04) mg/dL Estimated GFR 58.4 L (>60) mL/min BUN/Creatinine Ratio 19.6 (6-22) Glucose 140 H (80-110) mg/dL Calcium 9.3 (8.4-10.2) mg/dL Total Bilirubin 0.4 (0.2-1.3) mg/dL AST 23 (14-36) IU/L ALT 10 (<35) IU/L Alkaline Phosphatase 61 (38-126) U/L Total Creatine Kinase 38 (30-135) U/L CK-MB (CK-2) TNP CK-MB (CK-2) Rel Index TNP Troponin I < 0.012 (0.01-0.034) ng/mL NT-Pro-B Natriuret Pep 408 (<450) pg/mL Total Protein 6.8 (6.3-8.2) g/dL Albumin 4.1 (3.5-5.0) g/dL Globulin 2.7 (1.7-4.1) g/dL Albumin/Globulin Ratio 1.5 (1.0-2.8) Lipase 226 (23-300) U/L // Range/Units 16:13 WBC (4.5-11.0) X10^3/uL RBC (4.0-5.2) X10^6/uL Hgb (12.0-16.0) g/dL Hct (36-46) % MCV (80-100) fL MCH (26-34) PG MCHC (30-36) % RDW (11.6-14.8) % Plt Count (150-400) X10^3/uL Neut % (Auto) (50-75) % Lymph % (Auto) (25-40) % Hartley % (Auto) (3-14) % Eos % (Auto) (2-4) % Baso % (Auto) (0-2) % Neut # (Auto) (7629-4075) /uL Lymph # (Auto) (8076-3619) /uL Hartley # (Auto) (0-900) /uL Eos # (Auto) (0-450) /uL Baso # (Auto) (0-100) /uL PT 12.0 (10.1-12.7) SECONDS INR 1.0 (0.9-1.3) APTT 29 D (26.4-36.2) SECONDS Sodium (137-145) mmol/L Potassium (3.4-5.1) mmol/L Chloride (98-107) mmol/L Carbon Dioxide (22-32) mmol/L BUN (7-17) mg/dL Creatinine (0.52-1.04) mg/dL Estimated GFR (>60) mL/min BUN/Creatinine Ratio (6-22) Glucose (80-110) mg/dL Calcium (8.4-10.2) mg/dL Total Bilirubin (0.2-1.3) mg/dL AST (14-36) IU/L ALT (<35) IU/L Alkaline Phosphatase (38-126) U/L Total Creatine Kinase (30-135) U/L CK-MB (CK-2) CK-MB (CK-2) Rel Index Troponin I (0.01-0.034) ng/mL NT-Pro-B Natriuret Pep (<450) pg/mL Total Protein (6.3-8.2) g/dL Albumin (3.5-5.0) g/dL Globulin (1.7-4.1) g/dL Albumin/Globulin Ratio (1.0-2.8) Lipase (23-300) U/L Imaging Data Chest x-ray: Radiologist's Impression: PROCEDURE: XR CHEST 1V INDICATIONS: chest pain TECHNIQUE: One view of the chest was acquired. COMPARISON: [facility], CR, XR CHEST 1V, 11/18/2019, 12:43. [facility], CR, XR CHEST 1V, 11/06/2019, 12:39. FINDINGS: Surgical changes and devices: None. Lungs and pleura: Lungs are abnormal with interstitial prominence. No pleural effusions or pneumothorax. Mediastinum: Mediastinal contours appear normal. Heart size is normal. Bones and chest wall: No suspicious bony lesions. Overlying soft tissues appear unremarkable. IMPRESSION: Interstitial prominence, no acute disease. Dictated by: Lino Ruiz M.D. on 12/09/2019 at 16:36 CT scan - chest: Radiologist's Impression: PROCEDURE: CT ANGIO CHEST PE PROTOCOL INDICATIONS: sob TECHNIQUE: After the administration of intravenous contrast, 2 mm thick sections acquired from the pulmonary apices to the posterior costophrenic angles. 3-dimensional maximum intensity projection (MIP) coronal and sagittal reformats were then acquired through the thorax. For radiation dose reduction, the following was used: automated exposure control, adjustment of mA and/or kV according to patient size. The patient was pre-medicated for an iodine allergy. No immediate contrast reactions were experienced. COMPARISON: [facility], CT, CT ANGIO CHEST PE PROTOCOL, 09/20/2018, 12:12. [facility], CR, XR CHEST 1V, 12/09/2019, 16:23. [facility], CT, CT ANGIO CHEST PE PROTOCOL, 03/21/2019, 2:38. FINDINGS: Image quality: Excellent. Pulmonary arteries: Pulmonary arteries are normal in size, and demonstrate no intraluminal filling defects to suggest central pulmonary embolism. Lungs and pleura: Mild dependent atelectasis is seen. No pleural effusions or pneumothorax. Central and peripheral airways are patent. Mediastinum: Heart size is moderately enlarged, without pericardial effusion. Coronary artery calcifications are seen. No mediastinal or hilar adenopathy. Thoracic aorta is normal in caliber and enhancement. Esophagus is normal in caliber. There is a small hiatal hernia. Bones and chest wall: There is again seen a superficial lesion involving the right superior breast, which is similar to the 09/20/2018 examination. No suspicious [place] lesions. Ribs and thoracic spine appear intact throughout. Thyroid gland demonstrates no significant abnormality. No axillary or supraclavicular adenopathy. Abdomen: Visualized upper abdominal solid organs appear normal in the early arterial phase of enhancement. IMPRESSION: Negative for pulmonary embolism. Moderate cardiomegaly. Right breast lesion again seen. Incidental note is made of: Mild dependent atelectasis Small hiatal hernia Coronary artery calcification Dictated by: Venkat Tucker M.D. on 12/09/2019 at 16:26 US - DVT: Radiologist's Impression: PROCEDURE: [facility] VENOUS LOW EXTREM BI INDICATIONS: PAIN BEHIND KNEES AND LEG SWELLING TECHNIQUE: Real-time imaging, as well as color and pulse Doppler interrogation, were performed of the deep veins of both legs from the inguinal ligament to the popliteal fossa. COMPARISON: [facility], PERIP VENOUS LOW EXTREM BI, 06/01/2019, 18:57. [facility] PERIP VENOUS LOW EXTREM BI, 02/22/2019, 14:25. FINDINGS: Right: The common femoral, femoral and popliteal veins are normally compressible, and free of intraluminal thrombus. Color and pulse Doppler demonstrate normal phasic intravascular flow. There is normal augmentation response to distal compression maneuver. Left: The common femoral, femoral and popliteal veins are normally compressible, and free of intraluminal thrombus. Color and pulse Doppler demonstrate normal phasic intravascular flow. There is normal augmentation response to distal compression maneuver. IMPRESSION: No evidence of deep vein thrombosis of the bilateral lower extremities. Dictated by: Juventino Acosta M.D. on 12/09/2019 at 16:52 ECG Data Attestation: I personally reviewed and interpreted this ECG as follows: Prior ECG tracings: available for review Interpretation: Normal sinus rhythm 68 p.r. interval 188 QRS [address] changes similar to previous EKG MDM Narrative Medical decision making narrative: Patient has negative PE workup her proBNP is actually lower than what it was previously previously was 700 today is 400. I have discussed case with Cardiology she has had multiple workups including heart catheterizations within the past few months. She did get 1 dose nitroglycerin which dropped her pressure but did help her chest discomfort. At this time patient can be discharged and follow-up with cardiology as an outpatient I discussed all findings with the patient, Education has been performed regarding treatment plan, diagnosis, warning signs and symptoms and all concerns have been addressed. Verbally agree with and understood all of the above. Discharge Plan Departure Patient Disposition: Home Clinical Impression: Atypical chest pain Discharge Date/Time: 12/09/19 19:13 Instructions: DI for Atypical Chest Pain Activity Restrictions/Additional Instructions: *You have been diagnosed with atypical chest pain *What to do: At this time here workup is reassuring however you still need to follow-up with cardiology. You do not have blood clots in her legs *Continue to take medications as directed *Follow up with your primary care provider in 2-3 days *Return to ER if you should have increasing chest pain shortness of breath or any new, worsening or concerning symptoms Prescriptions: No Action aspirin 81 MG tablet,delayed release (DR/EC) 81 mg PO DAILY Qty: 0 RF: 0 clopidogrel 75 mg tablet 75 mg PO DAILY RF: 0 amlodipine 10 mg tablet 10 mg PO DAILY RF: 0 escitalopram oxalate 5 mg tablet 5 mg PO DAILY RF: 0 cholecalciferol (vitamin D3) [Vitamin D3] 5,000 unit Tablet 5,000 unit PO DAILY RF: 0 lidocaine 5 % adhesive patch,medicated 1 patch TOP DAILY PRN (Reason: pain) Qty: 15 RF: 0 methocarbamol 750 mg tablet 750 mg PO TID PRN (Reason: muscle spasm) Qty: 14 RF: 0 acetaminophen-codeine 300-30 mg tablet 1 tab PO Q4-6H PRN (Reason: pain) Qty: 7 RF: 0 nitroglycerin 0.4 mg tablet, sublingual 1 tab sublingual [id number] PRN (Reason: Chest Pain) RF: 0 rosuvastatin 40 mg tablet 40 mg PO QPM RF: 0 cyanocobalamin (vitamin B-12) 2,000 mcg Tablet 2,000 mcg PO DAILY RF: 0 potassium chloride 10 mEq capsule, extended release 10 meq PO DAILY RF: 0 furosemide 20 mg tablet 40 mg PO DAILY RF: 0 losartan 100 mg tablet 100 mg PO QPM RF: 0 metoprolol tartrate 25 mg tablet 12.5 mg PO BID RF: 0 alprazolam 0.5 mg Tablet 0.5 mg PO TID PRN (Reason: Anxiety) RF: 0 lidocaine 5 % Adhesive Patch,Medicated 1 patch TOPICAL DAILY PRN (Reason: Pain (Scale Score 1-3)) RF: 0 Referrals: Bethany Ellington MD [Family Provider] - Zoe Bass PA-C [Primary Care Provider] -
[2019-12-09] MEDS: NITROGLYCERIN 0.4 MG SL TAB SL (16:56)
[2019-12-09] MEDS: diphenhydrAMINE 50 MG/ML VIAL 25 MG IV (16:59)
[2019-12-09] MEDS: methylPREDNISolone 125 MG/2 ML VIAL IV (16:59)
[2019-12-09 17:05] LABS: NT-proBNP (BNP-Adult 18+) 408 pg/mL (<450)
[2019-12-09] MEDS: FUROSEMIDE 40 MG/4 ML VIAL IV (18:48)
== END 2019-12-09 19:13 | disposition home or self-care (01) ==
PROVIDERS: Emergency Provider Emergency Medicine; Family Provider Internal Medicine; PCP Physician Assistant Medical
DX: R07.89 Other chest pain (principal); R06.02 Shortness of breath; I10 Essential (primary) hypertension; I25.10 Atherosclerotic heart disease of native coronary artery without angina pectoris; Z95.5 Presence of coronary angioplasty implant and graft
CPT/HCPCS: 36415; 71045; 71275; 80053; 82550; 83690; 83880; 84484; 85025; 85610; 85730; 93005; 93970; 96374; 96375; 99285; J1200; J1940; J2930; Q9967

== ENCOUNTER 2020-02-08 19:16 | Observation (INO) | payer MEDICARE, OTHER, SELFPAY ==
[2019-01-23 21:49] VITALS: BMI 33.3
[2020-02-08] VITALS (8 sets, daily range): BP systolic 141–173; BP diastolic 73–86; PULSE 59–71; RESP 14–18; TEMP 36.2; O2SAT 95–98
--- NOTE | 2020-02-08 19:49 | ED_ITS ---
HPI - Fall General Chief Complaint: Fall Stated Complaint: fall , bruised back, [facility] pain Time Seen by Provider: 02/08/20 19:24 Source: patient Mode of arrival: Ambulatory Limitations: no limitations History of Present Illness HPI Narrative: 84-year-old female. On Plavix here for evaluation of injuries that she sustained when she stated that she fell 2 days ago. She stated that she was in her bathroom at her house. She states she was trying to get something out of a shelf when she had a sudden onset of ringing in her right ear and then became very nauseous. She stated that the next thing she remembers she was on her back with the shelf on top of her. There was no loss of bowel or bladder. She stated that she new where she was and that she had fallen immediately afterwards. She thought maybe she did hit her head. Since that time she has had pain in her back and also bruising on her left side and also headache. She also states that since that time she has had episodes where she has either standing or walking and again has the ringing in her right ear, the son's sensation of feeling cold, nausea. She denies any room spinning sensation. Denies any other symptoms associated with this. She states that when this happens she needs to sit down or else she feels like that she will pass out. After she sits down her symptoms seemed to improve and then she can get up and move around. This has happened multiple times a day since she fell. Related Data Home Medications Medication Instructions Recorded Confirmed aspirin 81 mg PO DAILY #0 05/14/17 06/01/19 cyanocobalamin (vitamin B-12) 2,000 mcg PO DAILY 11/18/18 06/01/19 nitroglycerin 1 tab SUBLINGUAL [id number] PRN 11/18/18 06/01/19 rosuvastatin 40 mg PO QPM 11/18/18 06/01/19 furosemide 40 mg PO DAILY 01/23/19 06/01/19 losartan 100 mg PO QPM 01/23/19 06/01/19 metoprolol tartrate 12.5 mg PO BID 01/23/19 06/01/19 potassium chloride 10 meq PO DAILY 01/23/19 06/01/19 amlodipine 10 mg PO DAILY 05/03/19 06/01/19 cholecalciferol (vitamin D3) 5,000 unit PO DAILY 05/03/19 06/01/19 [Vitamin D3] clopidogrel 75 mg PO DAILY 05/03/19 06/01/19 escitalopram oxalate 5 mg PO DAILY 05/03/19 06/01/19 alprazolam 0.5 mg PO TID PRN 06/01/19 06/01/19 lidocaine 1 patch TOPICAL DAILY PRN 06/01/19 06/01/19 Previous Rx's Medication Instructions Recorded acetaminophen-codeine 1 tab PO Q4-6H PRN #7 tab 11/18/19 lidocaine 1 patch TOP DAILY PRN #15 each 11/18/19 methocarbamol 750 mg PO TID PRN #14 tab 11/18/19 Allergies Allergy/AdvReac Type Severity Reaction Status Date / Time erythromycin base Allergy Severe Rash Verified 11/06/19 12:57 [ERYTHROMYCIN BASE] ibuprofen [IBUPROFEN] Allergy Severe Rash Verified 11/06/19 12:57 Iodinated Contrast Media Allergy Severe Unconscious Verified 11/06/19 12:57 [IODINATED CONTRAST- ORAL AND IV DYE] morphine [MORPHINE] Allergy Severe Rash Verified 11/06/19 12:57 naproxen [From ALEVE] Allergy Severe Rash Verified 11/06/19 12:57 telmisartan [TELMISARTAN] Allergy Severe Rash Verified 11/06/19 12:57 Review of Systems Constitutional Constitutional: Reports chills, Denies fever(s), Reports headache(s) and Reports lethargy Eyes Eyes: Denies change in vision ENT Ears, Nose, Mouth, and Throat: Denies vertigo, Reports dizziness, Denies ear discharge, Reports headache(s) and Denies sore throat Comments: Ringing in the right ear Cardiovascular Cardiovascular: Denies chest pain, Denies rapid heart rate, Denies irregular heart rhythm and Denies dyspnea Respiratory Respiratory: Denies cough and Denies dyspnea Gastrointestinal Gastrointestinal: Denies abdominal pain, Denies change in bowel habits, Reports nausea and Denies vomiting Genitourinary Genitourinary: Denies dysuria Genitourinary: Denies dysuria Musculoskeletal Musculoskeletal: Reports back pain, Reports arthralgias (Left shoulder), Denies myalgias and Denies tingling Integumentary/Breasts Skin/Breast: Denies lesions and Denies rash Neurologic Neurologic: Denies confusion, Denies vertigo, Reports dizziness, Reports headache(s) and Denies tingling Psychiatric Psychiatric: Denies anxiety and Denies confusion Hematologic/Lymphatic Comments: On Plavix Allergic/Immunologic Allergic/Immunologic: Denies urticaria Patient History Medical History Cardiac arrest (Acute) Chest pain (Inactive) Coronary artery disease (Acute) Hyperlipidemia (Acute) Hypertension (Acute) Left hamstring muscle strain (Inactive) UTI (urinary tract infection) (Inactive) Surgical History H/O right heart catheterization (Inactive) History of appendectomy (Acute) History of breast implant removal (Acute) History of breast surgery (Acute) History of cholecystectomy (Acute) History of coronary artery stent placement (Acute) History of total abdominal hysterectomy (Acute) Social History household members: children Smoking Status: Never smoker Smoking Status: Never smoker alcohol intake frequency: holidays/special occasions only Substance Use Type: does not use Exam Initial Vital Signs Initial Vital Signs: Vital Signs Temperature 97.1 F L 02/08/20 19:30 Pulse Rate 60 02/08/20 19:30 Respiratory Rate 18 02/08/20 19:30 Blood Pressure 173/73 H 02/08/20 19:30 Pulse Oximetry 96 02/08/20 19:30 Const General: cooperative, comfortable, well developed, well groomed and No acute distress Limitations: mental status not altered [facility] Head: normal to inspection and normocephalic Ears: TM normal on the right (Partially obscured by cerumen), left TM abnormal (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) and EAC's normal Eyes General: appearance normal, both eyes and all related structures Pupils: PERRL Chest Chest: No crepitus and No tenderness Resp Effort & Inspection: normal respiratory effort Auscultation: clear to auscultation bilaterally Cardio Rate: regular rate Rhythm: regular rhythm GI Inspection: non-distended Palpation: soft, No firm and No tender Back/Spine/Pelvis Cervical Spine: No collar present and cervical spinal tenderness Thoracic/Lumbar Spine: No paraspinal tenderness, thoracic spinal tenderness and No lumbar spinal tenderness Skin Rashes: no rashes Other: Bruising over the lower thoracic upper lumbar region that is tender to palpation. Has ecchymosis along the left flank. Neuro General: patient alert, patient awake and patient oriented x3 Cranial Nerves: CN's II-XI intact bilaterally Cognition: normal cognition Speech: speech normal Motor: muscle tone normal throughout Sensory Exam: no sensory deficits noted Extrem General: normal to inspection and capillary refill normal Other: Tenderness to palpation posterior left shoulder Psych Appearance: grossly normal and well kempt Course Orders Ordered: ED Orders 02/08/20 20:10 Complete Blood Count AUTO DIFF Stat Comprehensive Metabolic Panel Stat Lipase Stat Partial Thromboplastin Time Stat Prothrombin Time INR Stat Troponin & CK Cardiac Panel Stat 02/08/20 20:21 XR shoulder LT min 2V Stat 02/08/20 20:22 CT abdomen pelvis w con Stat CT head/brain wo con Stat 02/08/20 20:23 CT cervical spine wo con Stat 02/09/20 00:12 COVID19 -ED/INPAT/OR/L&D Stat Discontinued Medications Acetaminophen/Codeine Phosphate (Tylenol #3) 1 tab PO NOW ONE Stop: 02/08/20 21:11 Last Admin: 02/08/20 21:17 Dose: 1 tab Documented by: JOLYNN Acetaminophen/Codeine Phosphate (Tylenol #3) 1 tab PO NOW ONE Stop: 02/09/20 00:04 Last Admin: 02/09/20 00:13 Dose: 1 tab Documented by: NAT Diphenhydramine HCl (Benadryl) 25 mg IV NOW ONE Stop: 02/08/20 20:50 Last Admin: 02/08/20 20:59 Dose: 25 mg Documented by: JOLYNN Meclizine HCl (Antivert) 25 mg PO NOW ONE Stop: 02/08/20 22:22 Last Admin: 02/08/20 22:40 Dose: 25 mg Documented by: JOLYNN Methylprednisolone (Solu-Medrol 125 Mg Vial) 40 mg IV NOW ONE Stop: 02/08/20 20:50 Last Admin: 02/08/20 20:59 Dose: 40 mg Documented by: JOLYNN Ondansetron HCl (Zofran) 4 mg IV NOW ONE Stop: 02/08/20 23:45 Last Admin: 02/08/20 23:47 Dose: 4 mg Documented by: NAT Vital Signs Vital signs: Vital Signs - 8 hr 02/08/20 19:30 02/08/20 19:45 02/08/20 20:00 Temperature 97.1 F L Pulse Rate 60 59 L 61 Pulse Rate [Orthostatic Sitting] Pulse Rate [Orthostatic Standing] Respiratory Rate 18 16 16 Blood Pressure 173/73 H Blood Pressure [Orthostatic Sitting] Blood Pressure [Orthostatic Standing] Pulse Oximetry 96 98 98 02/08/20 20:15 02/08/20 20:45 02/08/20 21:30 Temperature Pulse Rate 61 61 60 Pulse Rate [Orthostatic Sitting] Pulse Rate [Orthostatic Standing] Respiratory Rate 14 14 14 Blood Pressure Blood Pressure [Orthostatic Sitting] Blood Pressure [Orthostatic Standing] Pulse Oximetry 97 98 97 02/08/20 22:11 02/08/20 23:45 02/09/20 00:00 Temperature Pulse Rate 69 70 Pulse Rate [Orthostatic Sitting] 71 Pulse Rate [Orthostatic Standing] 71 Respiratory Rate 18 18 Blood Pressure 151/80 H 150/67 H Blood Pressure [Orthostatic Sitting] 141/79 H Blood Pressure [Orthostatic Standing] 159/86 H Pulse Oximetry 95 94 MDM - Fall Lab Data Attestation: I reviewed the patient's lab results. Result diagrams: 02/08/20 20:10 02/08/20 20:10 Labs: Lab Results 02/08/20 02/08/20 02/08/20 Range/Units 20:10 20:10 20:10 WBC 7.4 (4.5-11.0) X10^3/uL RBC 4.77 (4.0-5.2) X10^6/uL Hgb 14.2 (12.0-16.0) g/dL Hct 41.9 (36-46) % MCV 87.7 (80-100) fL MCH 29.8 (26-34) PG MCHC 34.0 (30-36) % RDW 16.1 H (11.6-14.8) % Plt Count 213 (150-400) X10^3/uL Neut % (Auto) 46.4 L (50-75) % Lymph % (Auto) 41.0 H (25-40) % [place] % (Auto) 8.8 (3-14) % Eos % (Auto) 2.8 (2-4) % Baso % (Auto) 1.0 (0-2) % Neut # (Auto) 3400 (4213-6393) /uL Lymph # (Auto) 3000 (1556-3982) /uL [place] # (Auto) 700 (0-900) /uL Eos # (Auto) 200 (0-450) /uL Baso # (Auto) 100 (0-100) /uL PT 11.9 (10.1-12.7) SECONDS INR 1.0 (0.9-1.3) APTT 27 D (26.4-36.2) SECONDS Sodium 138 (137-145) mmol/L Potassium 4.0 (3.4-5.1) mmol/L Chloride 100 (98-107) mmol/L Carbon Dioxide 31 (22-32) mmol/L BUN 21 H (7-17) mg/dL Creatinine 1.05 H (0.52-1.04) mg/dL Estimated GFR 50.2 L (>60) mL/min BUN/Creatinine Ratio 20.0 (6-22) Glucose 95 (80-110) mg/dL Calcium 9.1 (8.4-10.2) mg/dL Total Bilirubin 0.4 (0.2-1.3) mg/dL AST 23 (14-36) IU/L ALT 6 (<35) IU/L Alkaline Phosphatase 48 (38-126) U/L Total Creatine Kinase (30-135) U/L CK-MB (CK-2) CK-MB (CK-2) Rel Index Troponin I (0.01-0.034) ng/mL Total Protein 7.0 (6.3-8.2) g/dL Albumin 4.1 (3.5-5.0) g/dL Globulin 2.9 (1.7-4.1) g/dL Albumin/Globulin Ratio 1.4 (1.0-2.8) Lipase (23-300) U/L 02/08/20 Range/Units 20:10 WBC (4.5-11.0) X10^3/uL RBC (4.0-5.2) X10^6/uL Hgb (12.0-16.0) g/dL Hct (36-46) % MCV (80-100) fL MCH (26-34) PG MCHC (30-36) % RDW (11.6-14.8) % Plt Count (150-400) X10^3/uL Neut % (Auto) (50-75) % Lymph % (Auto) (25-40) % [place] % (Auto) (3-14) % Eos % (Auto) (2-4) % Baso % (Auto) (0-2) % Neut # (Auto) (8617-9986) /uL Lymph # (Auto) (6215-1835) /uL [place] # (Auto) (0-900) /uL Eos # (Auto) (0-450) /uL Baso # (Auto) (0-100) /uL PT (10.1-12.7) SECONDS INR (0.9-1.3) APTT (26.4-36.2) SECONDS Sodium (137-145) mmol/L Potassium (3.4-5.1) mmol/L Chloride (98-107) mmol/L Carbon Dioxide (22-32) mmol/L BUN (7-17) mg/dL Creatinine (0.52-1.04) mg/dL Estimated GFR (>60) mL/min BUN/Creatinine Ratio (6-22) Glucose (80-110) mg/dL Calcium (8.4-10.2) mg/dL Total Bilirubin (0.2-1.3) mg/dL AST (14-36) IU/L ALT (<35) IU/L Alkaline Phosphatase (38-126) U/L Total Creatine Kinase 38 (30-135) U/L CK-MB (CK-2) TNP CK-MB (CK-2) Rel Index TNP Troponin I < 0.012 (0.01-0.034) ng/mL Total Protein (6.3-8.2) g/dL Albumin (3.5-5.0) g/dL Globulin (1.7-4.1) g/dL Albumin/Globulin Ratio (1.0-2.8) Lipase 190 (23-300) U/L Imaging Data CT scan - head: Radiologist's Impression: [address] [address] [address] Scan Report Signed Patient: Lida Townsend TMR#: [id number] : 10/27/1936Acct:[id number] Age/Sex: 84 / FDate of Service: 02/08/20 Loc: ED Accession Number: [id number] Procedure: CT head/brain wo con Ordering Provider: Valerio East D.O. PROCEDURE: CT HEAD/BRAIN WO CON INDICATIONS: syncope TECHNIQUE: Noncontrast 4.5 mm thick angled axial sections acquired from the foramen magnum to the vertex, with coronal and sagittal reformats. For radiation dose reduction, the following was used: automated exposure control, adjustment of mA and/or kV according to patient size. COMPARISON: [facility], CT, CT HEAD/BRAIN WO CON, 11/18/2019, 13:31. FINDINGS: Image quality: Excellent. CSF spaces: Basal cisterns are patent. No extra-axial fluid collections. The ventricles are symmetric in size and shape. There is mild cerebral volume loss, with resultant ventricular and sulcal prominence. Brain: No intracranial hemorrhage, mass, or mass effect. There are subcortical, periventricular and deep white matter hypodensities consistent with mild chronic small vessel ischemic changes. There is intracranial internal carotid artery atherosclerosis. Skull and face: Calvarium and visualized facial bones appear intact, without suspicious lesions. Sinuses: Visualized sinuses and mastoids are clear. IMPRESSION: 1. No acute intracranial abnormality. 2. Mild chronic white matter small vessel ischemic changes and cerebral volume loss. Dictated by: Tony Treviño M.D. on 02/08/2020 at 21:31 Approved by: Tony Treviño M.D. on 02/08/2020 at 21:32 Extremity x-ray #1: Radiologist's Impression: [address] [address] XRay Report Signed Patient: Lida Townsend TMR#: [id number] : 8Acct:[id number] Age/Sex: 84 / FDate of Service: 02/08/20 Loc: ED Accession Number: [id number] Procedure: XR shoulder LT min 2V Ordering Provider: Valerio East D.O. PROCEDURE: XR SHOULDER LT MIN 2V INDICATIONS: fall shoulder pain TECHNIQUE: 3 views of the shoulder were acquired. COMPARISON: None. FINDINGS: Bones: No fractures or dislocations. There is moderate glenohumeral and acromioclavicular joint degeneration. No suspicious bony lesions. Visualized ribs appear intact. Soft tissues: No suspicious soft tissue calcifications. IMPRESSION: 1. No fracture or dislocation. 2. 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 Dictated by: Tony Treviño M.D. on 02/08/2020 at 21:23 Approved by: Tony Treviño M.D. on 02/08/2020 at 21:24 CT - cervical spine: Radiologist's Impression: [address] [address] [address] Scan Report Signed Patient: Lida Townsend TMR#: [id number] : 8Acct:[id number] Age/Sex: 84 / FDate of Service: 02/08/20 Loc: ED Accession Number: [id number] Procedure: CT cervical spine wo con Ordering Provider: Valerio East D.O. PROCEDURE: CT CERVICAL SPINE WO CON INDICATIONS: fall C7 midline pain TECHNIQUE: Noncontrast 3 mm thick sections acquired from the skull base to the T4 level. Sagittal and coronal reformats were then constructed. For radiation dose reduction, the following was used: automated exposure control, adjustment of mA and/or kV according to patient size. COMPARISON: None. FINDINGS: Image quality: Excellent. Bones: No acute fractures or dislocations. There is a small corticated ossicle along the posterior aspect of the C7 spinous process likely representing sequelae of a prior small avulsion fracture. There is mild to moderate degenerative disc disease at C6-C7 with endplate sclerosis and osteophytosis. Mild multilevel facet arthropathy also demonstrated in the cervical spine. Visualized superior ribs are intact. Soft tissues: Prevertebral soft tissues are normal in thickness. No paravertebral hematomas. No apical pneumothoraces. There is dependent atelectasis in the visualized lungs. IMPRESSION: 1. No acute fracture or subluxation. 2. Small corticated ossicle compatible with a prior small avulsion fracture of the C7 spinous process. Dictated by: Tony Treviño M.D. on 02/08/2020 at 21:32 Approved by: Tony Treviño M.D. on 02/08/2020 at 21:35 CT scan - abdomen/pelvis: Radiologist's Impression: [address] [address] [address] Scan Report Signed Patient: Lida Townsend TMR#: [id number] : 1936Acct:[id number] Age/Sex: 84 / FDate of Service: 02/08/20 Loc: ED Accession Number: [id number] Procedure: CT abdomen pelvis w con Ordering Provider: Valerio East D.O. PROCEDURE: CT ABDOMEN PELVIS W CON INDICATIONS: fall left flank pain concern for spleen rupture TECHNIQUE: After the administration of intravenous contrast, 5 mm thick sections acquired from the diaphragm to the symphysis. 5 mm coronal and sagittal reformats were acquired. For radiation dose reduction, the following was used: automated exposure control, adjustment of mA and/or kV according to patient size. COMPARISON: [facility], CT, KIDNEY/ URETER/BLADDER, 05/14/2017, 12:07. FINDINGS: Image quality: There is beam hardening artifact from patient's upper extremities. ABDOMEN: Lung bases: There is mild scarring in the lung bases. Heart size is normal. There is a small hiatal hernia. Solid organs: The spleen is normal in size and enhancement without evidence of lacerations. No perisplenic fluid collections. Evaluation of the liver demonstrates no focal hepatic lesions or evidence of lacerations. The gallbladder appears within normal limits without calcified gallstones. Biliary system is non-dilated. Pancreas enhances normally. No peripancreatic fat stranding or fluid collections. No pancreatic duct dilatation. No adrenal nodules. Kidneys demonstrate no hydronephrosis. Peritoneum and bowel: Bowel loops demonstrate normal wall thickness and caliber. Colonic diverticulosis is present without acute diverticulitis. No free fluid or air. Nodes and vessels: No retroperitoneal or mesenteric adenopathy by size criteria. There is mild hazy fat stranding of the mesentery. Aorta and inferior vena cava are normal in size. Miscellaneous: No ventral hernias. PELVIS: Genitourinary: Bladder wall thickness is normal. Miscellaneous: No inguinal hernias or adenopathy. Bones: No fractures of the visualized basilar ribs. No suspicious bony lesions. No acute vertebral body compression fractures. There is a mild superior endplate compression deformity of the T10 vertebral body redemonstrated. There are superior endplate Schmorl's nodes in the T11 and L2 vertebral bodies. IMPRESSION: 1. No definite acute traumatic abnormality within the abdomen or pelvis. Specif ically, no evidence of splenic laceration or perisplenic hematoma. 2. Colonic diverticulosis. Dictated by: Tony Treviño M.D. on 02/08/2020 at 21:35 Approved by: Tony Treviño M.D. on 02/08/2020 at 21:40 ECG Data Attestation: I personally reviewed and interpreted this ECG as follows: Prior ECG tracings: not available for review Interpretation: Sinus rhythm Ventricular rate is 61 Normal QRS Normal QTC Nonspecific ST T wave changes MDM Narrative Medical decision making narrative: Modified trauma call secondary to fall on Plavix. Radiologic studies unremarkable. No signs of splenic laceration. Does have ecchymosis on her left flank. EKG is unremarkable. Patient does not specifically describe a vertigo sensation. She has a nonfocal neurologic exam. We attempted to walk the patient in the emergency department after approximately 20 ft she had a recurrence of the symptoms that brought her in. Her heart rate at that time was unremarkable. She had to sit down in a wheelchair. She then started to feel better so we stood her up and then again after approximately 20 ft again had the onset of the presenting symptoms. I discussed the case with LAUREEN Huynh the night hospitalist who had asked that we try meclizine the patient. She was given a dose of this medication approximately 30 minutes we attempted to ambulate the patient again and once again her symptoms reoccurred. I am unsure the exact origin however there was concern about potential either cardiac or neurologic origin. Patient has not had any ectopy on the monitor. Will admit the patient for further evaluation and treatment. Discussed this with the patient. She expressed understanding and agreement. Discharge Plan Departure Patient Disposition: Admitted as Observation Clinical Impression: Contusion of skin Fall Qualifiers: Encounter type: initial encounter Qualified Code(s): W19.XXXA - Unspecified fall, initial encounter Syncope Qualifiers: Syncope type: unspecified Qualified Code(s): R55 - Syncope and collapse Discharge Date/Time: 02/09/20 00:36 Referrals: Zoe Bass PA-C [Primary Care Provider] - Admit Date/Time: 02/09/20 00:11 Admit Provider: Krunal Huynh
[2020-02-08 20:19] LABS: Add Manual Diff / Slide Review NO; Basophils Absolute Auto 100 /uL (0-100); Eosinophils Absolute Auto 200 /uL (0-450); Eosinophils Percent Auto 2.8 % (2-4); Hematocrit 41.9 % (36-46); Hemoglobin 14.2 g/dL (12.0-16.0); Lymphocytes Absolute Auto 3000 /uL (1100-4500); Mean Corpuscular Hemoglobin 29.8 PG (26-34); Mean Corpuscular Volume 87.7 fL (80-100); Monocytes Absolute Auto 700 /uL (0-900); Monocytes Percent Auto 8.8 % (3-14); Neutrophils Absolute Auto 3400 /uL (1500-7000); Neutrophils Percent Auto 46.4 % (50-75); Platelet Count 213 X10^3/uL (150-400); Red Blood Cell Count 4.77 X10^6/uL (4.0-5.2); Red Cell Distribution Width 16.1 % (11.6-14.8); White Blood Cell Count 7.4 X10^3/uL (4.5-11.0)
--- NOTE | 2020-02-08 20:21 | DI.RAD.S_ITS ---
PROCEDURE: XR SHOULDER LT MIN 2V INDICATIONS: fall shoulder pain TECHNIQUE: 3 views of the shoulder were acquired. COMPARISON: None. FINDINGS: Bones: No fractures or dislocations. There is moderate glenohumeral and acromioclavicular joint degeneration. No suspicious bony lesions. Visualized ribs appear intact. Soft tissues: No suspicious soft tissue calcifications. IMPRESSION: 1. No fracture or dislocation. 2. 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 Dictated by: Tony Treviño M.D. on 02/08/2020 at 21:23 Approved by: Tony Treviño M.D. on 02/08/2020 at 21:24
--- NOTE | 2020-02-08 20:22 | DI.CT.S_ITS ---
PROCEDURE: CT HEAD/BRAIN WO CON INDICATIONS: syncope TECHNIQUE: Noncontrast 4.5 mm thick angled axial sections acquired from the foramen magnum to the vertex, with coronal and sagittal reformats. For radiation dose reduction, the following was used: automated exposure control, adjustment of mA and/or kV according to patient size. COMPARISON: [facility], CT, CT HEAD/BRAIN WO CON, 11/18/2019, 13:31. FINDINGS: Image quality: Excellent. CSF spaces: Basal cisterns are patent. No extra-axial fluid collections. The ventricles are symmetric in size and shape. There is mild cerebral volume loss, with resultant ventricular and sulcal prominence. Brain: No intracranial hemorrhage, mass, or mass effect. There are subcortical, periventricular and deep white matter hypodensities consistent with mild chronic small vessel ischemic changes. There is intracranial internal carotid artery atherosclerosis. Skull and face: Calvarium and visualized facial bones appear intact, without suspicious lesions. Sinuses: Visualized sinuses and mastoids are clear. IMPRESSION: 1. No acute intracranial abnormality. 2. Mild chronic white matter small vessel ischemic changes and cerebral volume loss. Dictated by: Tony Treviño M.D. on 02/08/2020 at 21:31 Approved by: Tony Treviño M.D. on 02/08/2020 at 21:32
--- NOTE | 2020-02-08 20:22 | DI.CT.S_ITS ---
PROCEDURE: CT ABDOMEN PELVIS W CON INDICATIONS: fall left flank pain concern for spleen rupture TECHNIQUE: After the administration of intravenous contrast, 5 mm thick sections acquired from the diaphragm to the symphysis. 5 mm coronal and sagittal reformats were acquired. For radiation dose reduction, the following was used: automated exposure control, adjustment of mA and/or kV according to patient size. COMPARISON: [facility], CT, KIDNEY/ URETER/BLADDER, 05/14/2017, 12:07. FINDINGS: Image quality: There is beam hardening artifact from patient's upper extremities. ABDOMEN: Lung bases: There is mild scarring in the lung bases. Heart size is normal. There is a small hiatal hernia. Solid organs: The spleen is normal in size and enhancement without evidence of lacerations. No perisplenic fluid collections. Evaluation of the liver demonstrates no focal hepatic lesions or evidence of lacerations. The gallbladder appears within normal limits without calcified gallstones. Biliary system is non-dilated. Pancreas enhances normally. No peripancreatic fat stranding or fluid collections. No pancreatic duct dilatation. No adrenal nodules. Kidneys demonstrate no hydronephrosis. Peritoneum and bowel: Bowel loops demonstrate normal wall thickness and caliber. Colonic diverticulosis is present without acute diverticulitis. No free fluid or air. Nodes and vessels: No retroperitoneal or mesenteric adenopathy by size criteria. There is mild hazy fat stranding of the mesentery. Aorta and inferior vena cava are normal in size. Miscellaneous: No ventral hernias. PELVIS: Genitourinary: Bladder wall thickness is normal. Miscellaneous: No inguinal hernias or adenopathy. Bones: No fractures of the visualized basilar ribs. No suspicious bony lesions. No acute vertebral body compression fractures. There is a mild superior endplate compression deformity of the T10 vertebral body redemonstrated. There are superior endplate Schmorl's nodes in the T11 and L2 vertebral bodies. IMPRESSION: 1. No definite acute traumatic abnormality within the abdomen or pelvis. Specifically, no evidence of splenic laceration or perisplenic hematoma. 2. Colonic diverticulosis. Dictated by: Tony Treviño M.D. on 02/08/2020 at 21:35 Approved by: Tony Treviño M.D. on 02/08/2020 at 21:40
--- NOTE | 2020-02-08 20:23 | DI.CT.S_ITS ---
PROCEDURE: CT CERVICAL SPINE WO CON INDICATIONS: fall C7 midline pain TECHNIQUE: Noncontrast 3 mm thick sections acquired from the skull base to the T4 level. Sagittal and coronal reformats were then constructed. For radiation dose reduction, the following was used: automated exposure control, adjustment of mA and/or kV according to patient size. COMPARISON: None. FINDINGS: Image quality: Excellent. Bones: No acute fractures or dislocations. There is a small corticated ossicle along the posterior aspect of the C7 spinous process likely representing sequelae of a prior small avulsion fracture. There is mild to moderate degenerative disc disease at C6-C7 with endplate sclerosis and osteophytosis. Mild multilevel facet arthropathy also demonstrated in the cervical spine. Visualized superior ribs are intact. Soft tissues: Prevertebral soft tissues are normal in thickness. No paravertebral hematomas. No apical pneumothoraces. There is dependent atelectasis in the visualized lungs. IMPRESSION: 1. No acute fracture or subluxation. 2. Small corticated ossicle compatible with a prior small avulsion fracture of the C7 spinous process. Dictated by: Tony Treviño M.D. on 02/08/2020 at 21:32 Approved by: Tony Treviño M.D. on 02/08/2020 at 21:35
[2020-02-08 20:28] LABS: Prothrombin Time 11.9 SECONDS (10.1-12.7)
[2020-02-08 20:31] LABS: PTT Partial Thromboplastin Tim 27 SECONDS (26.4-36.2)
[2020-02-08 20:32] LABS: Alanine Aminotransferase 6 IU/L (<35); Albumin 4.1 g/dL (3.5-5.0); Albumin Globulin Ratio 1.4 (1.0-2.8); Alkaline Phosphatase 48 U/L (38-126); Aspartate Aminotransferase 23 IU/L (14-36); Bilirubin Total 0.4 mg/dL (0.2-1.3); Blood Urea Nitrogen 21 mg/dL (7-17); Calcium 9.1 mg/dL (8.4-10.2); Carbon Dioxide 31 mmol/L (22-32); Chloride 100 mmol/L (98-107); Estimated Glomerular Filt Rate 50.2 mL/min (>60); Globulin 2.9 g/dL (1.7-4.1); Glucose 95 mg/dL (80-110); HEMOLYSIS 24 (0-50); Sodium 138 mmol/L (137-145)
[2020-02-08 20:33] LABS: Creatine Kinase 38 U/L (30-135); Lipase 190 U/L (23-300)
[2020-02-08 20:44] LABS: Troponin I < 0.012 ng/mL (0.01-0.034)
[2020-02-08] MEDS: methylPREDNISolone 125 MG/2 ML VIAL 40 MG IV (20:59)
[2020-02-08] MEDS: diphenhydrAMINE 50 MG/ML VIAL 25 MG IV (20:59)
[2020-02-08] MEDS: CODEINE/ACETAMINOPHEN 30/300 TABLET 1 TAB PO (21:17)
[2020-02-08] MEDS: MECLIZINE HCL 12.5 MG TABLET 25 MG PO (22:40)
[2020-02-08] MEDS: ONDANSETRON 4 MG/2 ML INJ IV (23:47)
[2020-02-09] VITALS (7 sets, daily range): BP systolic 122–150; BP diastolic 56–76; PULSE 70–104; RESP 16–18; TEMP 36.6–36.9; O2SAT 93–95; BMI 34.0
[2020-02-09] MEDS: CODEINE/ACETAMINOPHEN 30/300 TABLET 1 TAB PO ×4 (00:13→13:31)
[2020-02-09 00:33] LABS: COVID19 -Nasal RAPID Negative (Negative)
--- NOTE | 2020-02-09 01:38 | PM.HP.1 ---
History of Present Illness History of Present Illness Date Patient Seen: 02/09/20 Time Patient Seen: 01:11 Chief complaint: fall , bruised back, achy, L shldr pain Narrative: Ms. Lida Townsend is an 83-year-old female patient with a history significant for coronary artery disease, NSTEMI with stent placement (see 09/23/2018), cardiac arrhythmia, hypertension and hyperlipidemia who presents to the ER today following a syncopal episode on with recurrent episodes of lightheadedness with associated nausea and diaphoresis. The patient experienced single episode 2 days ago at her home where she lives alone. As she was passing out she grabbed on to a shelving rack which fell on top of her. She is able to call her daughter who lives close by who assisted her. She complains of persistent neck and back pain and flank pain. Patient states his as she was passing out her vision faded, she had no complaints of chest pain and felt no palpitations. She has had no recent illness denies complaints of fevers or chills or recent COVID-19 exposure. She has a headache located in right parietal head described as throbbing relieved with Tylenol No. 3. She reports no nasal congestion or sore throat. She complains of cervical spine and midthoracic back pain. She denies complaints of shortness of breath since starting Entresto 2 months ago. She is no longer using inhalers or nebulizers has no complaints of cough or wheezing. She complains of nausea only when she becomes lightheaded in which she describes as the blood draining from her. She reports no change in his bowel habits and has occasional constipation for which she takes stool softener as needed. She endorses urinary urgency but no complaints of burning or hematuria. The patient is typically independent in her ADLs but does have a walker that is available. Upon arrival to the ER the patient's temperature 97.1?, heart rate of 60, blood pressure 173/73, respirations of 18 saturation 96% on room air. Her pain level on arrival is 6/10. Imaging is obtained including a CT of the head which demonstrates chronic white matter small-vessel ischemic changes in cerebral volume loss. She has a CT of the spine finds no fractures but identifies a a Small corticated ossicle consistent with a prior small avulsion fracture of the C7 spinous proces; CT of the abdomen and pelvis which finds no solid organ abnormalities, bowel is normal thickness and caliber, colonic diverticulosis without diverticulitis, old compression fracture of T10. Twelve lead EKG is obtained finding a sinus rhythm with ventricular rate of 61 with an incomplete bundle branch block, no change from prior tracing. On laboratory analysis she has white count of 7.4, hemoglobin of 14.2, hematocrit 41.9 and platelets 213. Her PT is 11.9, INR 1.0 and a PTT of 27. Electrolytes are all within normal limits and has a BUN 21 and creatinine of 1.05. Her estimated GFR is 50.2. Her LFTs are all within normal limits and has an albumin of 4.1. Her total CK is 38 and troponin is negative. In the ER the patient received Tylenol with codeine x2 for pain, Benadryl, methylprednisolone 40 mg mixing 25 mg and Zofran. Multiple attempts were made to ambulate the patient unsuccessfully. The patient stood next to the bed for orthostatics were found to be negative and then following ambulation for approximately 30 ft she would have recurrent systems of lightheadedness and nausea with ringing in the ears. The patient is admitted to the hospitalist service for fall secondary to syncopal episode with recurrent lightheadedness/presyncopal symptoms. PCP: Kathi Bass [employer] Dr. Ellington Patient History Medical History (Updated 02/09/20 @ 04:00 by JOJO Crocker) Cardiac arrest (Acute) Chest pain (Inactive) Coronary artery disease (Acute) Diastolic heart failure (Acute) Hyperlipidemia (Acute) Hypertension (Acute) Left hamstring muscle strain (Inactive) NSTEMI (non-ST elevated myocardial infarction) (Acute) Skin cancer (Acute) UTI (urinary tract infection) (Inactive) Surgical History (Updated 02/09/20 @ 04:00 by JOJO Crocker) H/O right heart catheterization (Inactive) History of appendectomy (Acute) History of breast implant removal (Acute) History of breast surgery (Acute) History of cholecystectomy (Acute) History of coronary artery stent placement (Acute) History of total abdominal hysterectomy (Acute) Family & Social History Family History (Updated 02/09/20 @ 04:00 by JOJO Crocker) Father Hypertension Diabetes mellitus Mother Hypertension MD (myocardial infarction) Sister MD (myocardial infarction) S/P CABG x 4 Social History: household members children Prior Living Arrangements Mobile home Safety & Behavioral: Feels Safe in Current Yes Environment Been Physically Hurt or No Threatened By a Person Suicidal Ideation Description None Suicide Plan Description No Plan Tobacco & Substance use: Smoking Status Never smoker alcohol intake frequency holiday/special occasion Substance Use Type does not use Meds Home Medications and Allergies Home Medications Medication Instructions Recorded Confirmed Type aspirin 81 mg PO DAILY #0 05/14/17 02/09/20 History cyanocobalamin (vitamin B-12) 2,000 mcg PO DAILY 11/18/18 02/09/20 History nitroglycerin 1 tab SUBLINGUAL [id number] PRN 11/18/18 02/09/20 History rosuvastatin 40 mg PO QPM 11/18/18 02/09/20 History furosemide 80 mg PO DAILY 01/23/19 02/09/20 History metoprolol tartrate 25 mg PO BID 01/23/19 02/09/20 History potassium chloride 10 meq PO DAILY 01/23/19 02/09/20 History cholecalciferol (vitamin D3) 5,000 unit PO DAILY 05/03/19 02/09/20 History [Vitamin D3] clopidogrel 75 mg PO DAILY 05/03/19 02/09/20 History escitalopram oxalate 10 mg PO DAILY 05/03/19 02/09/20 History alprazolam 0.5 mg PO TID PRN 06/01/19 02/09/20 History lidocaine 1 patch TOPICAL DAILY PRN 06/01/19 02/09/20 History acetaminophen-codeine 1 tab PO Q4-6H PRN #7 tab 11/18/19 02/09/20 Rx methocarbamol 750 mg PO TID PRN #14 tab 11/18/19 02/09/20 Rx ranolazine 500 mg PO BID 02/09/20 02/09/20 History sacubitril-valsartan [Entresto] 1 tab PO BID 02/09/20 02/09/20 History Allergies Allergy/AdvReac Type Severity Reaction Status Date / Time erythromycin base Allergy Severe Rash Verified 11/06/19 12:57 [ERYTHROMYCIN BASE] ibuprofen [IBUPROFEN] Allergy Severe Rash Verified 11/06/19 12:57 Iodinated Contrast Media Allergy Severe Unconscious Verified 11/06/19 12:57 [IODINATED CONTRAST- ORAL AND IV DYE] morphine [MORPHINE] Allergy Severe Rash Verified 11/06/19 12:57 naproxen [From ALEVE] Allergy Severe Rash Verified 11/06/19 12:57 telmisartan [TELMISARTAN] Allergy Severe Rash Verified 11/06/19 12:57 Review of Systems Review of Systems ROS: Yes All systems reviewed with the patient and are negative except as otherwise documented Exam Vital Signs (past 8 hours): - 02/08/20 19:30 02/08/20 19:45 02/08/20 20:00 Temperature 97.1 F L Pulse Rate 60 59 L 61 Pulse Rate [Orthostatic Sitting] Pulse Rate [Orthostatic Standing] Respiratory Rate 18 16 16 Blood Pressure 173/73 H Blood Pressure [Orthostatic Sitting] Blood Pressure [Orthostatic Standing] Pulse Oximetry 96 98 98 02/08/20 20:15 02/08/20 20:45 02/08/20 21:30 Temperature Pulse Rate 61 61 60 Pulse Rate [Orthostatic Sitting] Pulse Rate [Orthostatic Standing] Respiratory Rate 14 14 14 Blood Pressure Blood Pressure [Orthostatic Sitting] Blood Pressure [Orthostatic Standing] Pulse Oximetry 97 98 97 02/08/20 22:11 02/08/20 23:45 02/09/20 00:00 Temperature Pulse Rate 69 70 Pulse Rate [Orthostatic Sitting] 71 Pulse Rate [Orthostatic Standing] 71 Respiratory Rate 18 18 Blood Pressure 151/80 H 150/67 H Blood Pressure [Orthostatic Sitting] 141/79 H Blood Pressure [Orthostatic Standing] 159/86 H Pulse Oximetry 95 94 02/09/20 00:58 Temperature 97.8 F Pulse Rate 75 Pulse Rate [Orthostatic Sitting] Pulse Rate [Orthostatic Standing] Respiratory Rate 16 Blood Pressure 147/76 H Blood Pressure [Orthostatic Sitting] Blood Pressure [Orthostatic Standing] Pulse Oximetry 93 Oxygen Delivery Method Room Air Oxygen Flow Rate 0 Narrative Exam Narrative: GENERAL APPEARANCE: well developed, obese female was pleasant and briskly interactive. HEENT: Normocephalic, PERRLA, conjunctiva clear, EOMs intact without nystagmus, no sinus tenderness to percussion, no rhinorrhea or epistaxis, mucous membranes are moist and pink without lesions or exudate. NECK/THYROID: neck pain on palpation approximately C4 without muscular spasm or palpable step-off, no JVD, no carotid bruit, no thyromegaly, trachea midline. LYMPH NODES: no cervical or supraclavicular lymphadenopathy. SKIN: [place], warm and dry, no visible rashes, large ecchymotic area left lateral abdomen HEART: regular rate and rhythm, S1-S2, no murmur, no rubs or gallops, brisk capillary refill, no pedal edema LUNGS: clear to auscultation bilaterally, no coarseness crackles or wheezing, no cough present CHEST: Symmetrical movement, no accessory muscle use, good tidal volume, no pain on AP and lateral compression. ABDOMEN: Soft, dull to percussion, right lateral abdominal pain on palpation, bruising left lateral abdomen, generalized tenderness, no guarding or peritoneal signs, no organomegaly, active bowel tones. BACK: Normal curvature, pain on palpation mid thoracic spine approximately T8 level, no step offs, swelling or ecchymosis EXTREMITIES: moves all extremities, strength is 5/5 and symmetrical, no deformities or joint effusions. NEUROLOGIC: AAO x4, cranial nerves II-XII grossly intact, sensation intact to light touch, hearing grossly normal to speech. PSYCH: Good eye contact, briskly interactive, linear thought process, cooperative, appropriate with stable behavior Objective Labs Result Diagrams: 02/08/20 20:10 02/08/20 20:10 Labs: Laboratory Results - last 24 hr 02/08/20 02/08/20 02/08/20 20:10 20:10 20:10 WBC 7.4 RBC 4.77 Hgb 14.2 Hct 41.9 MCV 87.7 MCH 29.8 MCHC 34.0 RDW 16.1 H Plt Count 213 Neut % (Auto) 46.4 L Lymph % (Auto) 41.0 H Kenton % (Auto) 8.8 Eos % (Auto) 2.8 Baso % (Auto) 1.0 Neut # (Auto) 3400 Lymph # (Auto) 3000 [place]on # (Auto) 700 Eos # (Auto) 200 Baso # (Auto) 100 PT 11.9 INR 1.0 APTT 27 D Sodium 138 Potassium 4.0 Chloride 100 Carbon Dioxide 31 BUN 21 H Creatinine 1.05 H Estimated GFR 50.2 L BUN/Creatinine Ratio 20.0 Glucose 95 Calcium 9.1 Total Bilirubin 0.4 AST 23 ALT 6 Alkaline Phosphatase 48 Total Creatine Kinase CK-MB (CK-2) CK-MB (CK-2) Rel Index Troponin I Total Protein 7.0 Albumin 4.1 Globulin 2.9 Albumin/Globulin Ratio 1.4 Lipase COVID-19 PCR 02/08/20 02/09/20 20:10 00:12 WBC RBC Hgb Hct MCV MCH MCHC RDW Plt Count Neut % (Auto) Lymph % (Auto) Kenton % (Auto) Eos % (Auto) Baso % (Auto) Neut # (Auto) Lymph # (Auto) [place] # (Auto) Eos # (Auto) Baso # (Auto) PT INR APTT Sodium Potassium Chloride Carbon Dioxide BUN Creatinine Estimated GFR BUN/Creatinine Ratio Glucose Calcium Total Bilirubin AST ALT Alkaline Phosphatase Total Creatine Kinase 38 CK-MB (CK-2) TNP CK-MB (CK-2) Rel Index TNP Troponin I < 0.012 Total Protein Albumin Globulin Albumin/Globulin Ratio Lipase 190 COVID-19 PCR Negative Assessment & Plan Assessment & Plan narrative: This is an 84-year-old female who sustained a ground level fall with syncope 2 days ago and has had persistent episodes of lightheadedness with ringing in her ears, nausea and diaphoresis with ambulation. 1. Syncopal episode, 2 days ago with persistent lightheadedness nausea with diaphoresis, present on admission, active. -patient describes her vision fading out as she grabbed for a shelf in pulled over on top her as she passed out. She has an experience recurrent lightheadedness with ringing in the ears an associated nausea and intermittent diaphoresis. She describes the feeling as her blood draining out of her. -cardiac enzymes are negative, no anemia or evidence of infective processes. Twelve lead EKG is unchanged from prior tracing. -2 months ago the patient was started on Entresto and reportedly continues taking furosemide 80 mg daily and metoprolol 25 mg twice daily. -orthostatic vital signs are negative in the ER however the patient becomes symptomatic after walking 30 ft on multiple attempts. -the patient becomes symptomatic consistently when ambulating supportive of mild dehydration, will reduce Lasix to 40 mg, discontinue IV fluids and recheck orthostatics and ambulatory trials. 2. Chronic diastolic heart failure with preserved ejection fraction, present on admission, stable -patient without complaints of chest pain or shortness of breath. -most recent echocardiogram was completed 07/08/[address] Ellington with LVEF of 65-75%, PA pressure is 28 right atrial pressure of 3. -patient is taking sacubitril-valsartan (Entresto) low-dose at 24/26 mg on which the patient has described marked improvement. -patient recently had an increase in dose of furosemide to 80 mg daily. The patient has no evidence of fluid overload and appears to be intravascular depleted will decrease furosemide to 40 mg daily. -continue current Entresto dose as well as metoprolol 25 twice daily. 3. Coronary artery disease, chronic, stable -the patient has a long history of cardiac disease with MD, 6 stents -total CK is 38 and troponin is less than 0.012. -patient status post 6 stents will continue dual antiplatelet therapy with aspirin 81 mg and Plavix 75 mg. -12 lead EKG is a sinus rhythm with ventricular rate 61 with incomplete right bundle branch block unchanged from prior tracing. -will continue Entresto and metoprolol. -will continue home regimen of antianginal ranolazine 500 mg twice daily -ordered nitroglycerin sublingual every 5 minutes x3 as needed for chest pain. 4. Ground level fall secondary to syncope, active. -patient fell backwards secondary to syncope pulling over a shelving rack on top of her. -patient complains of headache, neck and back pain as well as right-sided abdominal pain. -patient underwent CT scan the head C-spine and abdominal and pelvis with no traumatic findings. -patient's pain is adequately managed with Tylenol No. 3, ordered Tylenol No. 3 every 4 hours as needed for pain. -requesting PT and OT to consult evaluate and treat. 5. Hypertension, chronic, stable -will continue home regimen of metoprolol tartrate 25 mg twice daily. 6. Hyperlipidemia, chronic, stable. -lipids reported at goal by cardiology, continue home regimen of rosuvastatin 40 mg daily. VTE prophylaxis: Heparin IV fluid: Saline lock Diet: Heart healthy low-sodium Code status: Full code, patient designates her daughter before surrogate decision maker. Patient admitted to the hospital due to the severity of her symptoms and inability return to her home setting and risk of further complications and adverse events. Patient is admitted as observation with expected length of stay to be less than 2 midnights. COVID-19 COVID-19 status: Negative Result date/Date tested (Pos, Neg/Pending): 02/09/20 Scores GCS Nesmith coma scale eye opening: Spontaneous Nesmith coma scale verbal response: Orientated Nesmith coma scale motor response: Obey commands Jarek coma scale total score: 15 Quality VTE Deep Vein Thrombosis/Pulmonary Embolism Present on Admission: No
[2020-02-09] MEDS: SODIUM CHLORIDE 0.9% 1,000 ML 75 ML IV (02:16)
[2020-02-09 08:10] LABS: Bacteria Urine None Seen
[2020-02-09 08:16] LABS: Appearance Urine UA CLEAR; Bilirubin Urine UA NEGATIVE (NEGATIVE); Color Urine UA YELLOW; Glucose Urine UA NEGATIVE (Negative); Ketones Urine UA NEGATIVE (NEGATIVE); Leukocyte Esterase Urine UA NEGATIVE (NEGATIVE); Nitrite Urine UA NEGATIVE (Negative); Occult Blood Urine UA NEGATIVE (Negative); Protein Urine UA 1+ (Negative); Urobilinogen Urine UA 0.2 E.U./dL (0.2)
[2020-02-09 08:21] LABS: BUN Creatinine Ratio 20.6 (6-22); Blood Urea Nitrogen 20 mg/dL (7-17); Carbon Dioxide 29 mmol/L (22-32); Chloride 99 mmol/L (98-107); Glucose 161 mg/dL (80-110); HEMOLYSIS 28 (0-50); Potassium 4.6 mmol/L (3.4-5.1); Sodium 135 mmol/L (137-145)
[2020-02-09 09:03] LABS: pH Urine UA 5.5 (4.5-8.0)
[2020-02-09 09:04] LABS: Calcium Oxalate Crystals Urine Occasional; RBC Urine 0-1/HPF (0-5/HPF); Squamous Epithelial Cell Urine 1-5 /HPF (0-5/HPF); WBC Urine 0-1/HPF (0-5/HPF)
[2020-02-09 09:05] LABS: Culture Indicated Urine Cult Not Indicated; Hyaline Casts Urine 0-1/LPF
[2020-02-09] MEDS: ASPIRIN EC 81 MG TABLET PO (09:46)
[2020-02-09] MEDS: FUROSEMIDE 40 MG/4 ML VIAL IV (09:47)
[2020-02-09] MEDS: DOCUSATE 100 MG CAPSULE PO (09:47)
[2020-02-09] MEDS: METOPROLOL IR 25 MG TABLET PO (09:47)
[2020-02-09] MEDS: CLOPIDOGREL 75 MG TABLET PO (09:47)
[2020-02-09] MEDS: HEPARIN 5,000 UNIT/ML VIAL 5000 UNIT SUBCUT (09:48)
[2020-02-09] MEDS: RANOLAZINE 500 MG TAB.ER.12H PO (09:49)
[2020-02-09] MEDS: SODIUM CHLORIDE 0.9% FLUSH 10 ML IV (09:49)
[2020-02-09] MEDS: ESCITALOPRAM 10 MG TABLET PO (09:50)
--- NOTE | 2020-02-09 11:08 | CM.DANOTE ---
Addendum entered by DONNELL Erickson 02/09/20 15:35: MD signed F2F for HH and PENNIE faxed to [facility] to review. BF Addendum entered by DONNELL Erickson 02/09/20 14:36: ADD: Per PT, recommending safe d/c home with HH but states that pt still has some dizziness while ambulating and being upright and feels pt remaining overnight might be the safest. SW met bedside with pt, adult Dtr Beronica, and RN and discussed some of pt's concerns/worry about discharging home. RN did well discussing safe planning for ambulation once home with adult son to remain nearby during ambulation for the first couple days while her Lasiks is adjusting. Pt agreeable and Dtr lives nearby and can be present as well. SW and RN encourage pt to speak up if she does not feel medically stable to d/c. Pt and Dtr very agreeable to HH and preference is [facility] since pt has a hx of utilizing them last year. PENNIE made referral to [facility] and faxed clinicals including d/c summary, MD orders and waiting for F2F to be signed and then will fax F2F to [facility] to review. Plan: Patient to likely d/c home with son and Dtr to assist and stay with pt 05/12 and new [facility] to follow. BF Original Note: Patient is an 84 year old female who was admitted on 02/09/20 for GLF/dizziness. Pt has [employer] for insurance and her PCP is Dr. Zoe Bass. EMR was reviewed. Per MD, pt with syncope leading to GLF likely due to being over-diuresed with Lasiks. PT/OT ordered and pending. PENNIE met bedside with pt and explained role and pt confirms that she lives at home in [place] in [place] and is mostly independent with ADL's at baseline but her adult son has been living with her recently to provide additional assist. Pt still has supportive local Dtr Beronica who is her DPOA and lives close by who also helps when needed. Pt denies any hx of SNF but states she used [facility] last year with success. SW discussed that PT would eval her to determine if any needs identified for discharge and pt agreeable and appreciative. Pt preference is home later today if stable via family POV. Plan: PENNIE to follow for PT eval and recommendations to determine if pt stable for d/c home with family later today and r/o HH or other needs. DONNELL Erickson Discharge Planning/Care Management CM Discharge Assessment Start: 02/09/20 10:58 Freq: Status: Active Protocol: Document 02/09/20 10:58 BF (Rec: 02/09/20 11:08 BF [id number]) Discharge Planning Assessment Assigned Bench Hand Machine DONNELL Sosa DPOA/Assigned Designee Name Dtr Beronica Lam Contact Information [phone] Advance Directives? Yes Advance Directives on File Yes History Provided By Patient,Family Member,Medical Record Has Patient been admitted in last 30 No days? Prior Living Arrangements Mobile home Household Members children Type of transporation used prior to Relies on Others admit Comment Adult son staying with pt currently for additional assist Independent with ADL's Yes: mostly Is patient alert and oriented? Yes Needs Assistance With Managing Medications,Home Chores / Shopping Caregiver for Another No Patient/Family Preference Home with Home Health Comment Pending PT eval and recommendations Barriers to Discharge No Discharge Plan Home with Home Health Transportation Arrangement Family local and able to transport at d/c. Additional Comment Pending PT eval and recommendations Whiteboard Updated in Patient Room with Yes name and ext. # of Bench Hand Machine Review Status In Process Please Provide Date Initial DC 02/09/20 Assessment Was Performed Next Review Type Continued Stay Review
--- NOTE | 2020-02-09 13:34 | PT.IIE ---
Surgical History (Last Updated 02/09/20 @ 04:00 by JOJO Crocker) H/O right heart catheterization (Inactive) History of appendectomy (Acute) History of breast implant removal (Acute) History of breast surgery (Acute) History of cholecystectomy (Acute) History of coronary artery stent placement (Acute) History of total abdominal hysterectomy (Acute) Medical History (Last Updated 02/09/20 @ 04:00 by JOJO Crocker) Cardiac arrest (Acute) Chest pain (Inactive) Coronary artery disease (Acute) Diastolic heart failure (Acute) Hyperlipidemia (Acute) Hypertension (Acute) Left hamstring muscle strain (Inactive) NSTEMI (non-ST elevated myocardial infarction) (Acute) Skin cancer (Acute) UTI (urinary tract infection) (Inactive) Physical Therapy Inpatient Evaluation/Re-Eval M1 PT/OT-IP Prior Functional Status Start: 02/09/20 09:32 Freq: NEEDED Status: Active Protocol: Document 02/09/20 12:09 AW (Rec: 02/09/20 13:34 AW [id number]) Medical Review Prior Functional Status Medical History Reviewed Yes Communication WNL. No known deficits Mobility and Gait Pt is independent with household mobility. She will use a power cart for shopping if one is available and occasionally uses a manual wheelchair for longer distances. Activities of Daily Living and IADL's Independent with ADL's. Pt's son helps with cleaning, some meal prep, and pet care. Prior Functional Level (Other details) Pt denies history of falls, stating her recent fall is an aberration. Social History Household Members children Living Arrangements Mobile home Number of Floors (Floors) One Floor Number of Stairs To Enter/Railing? 4 ABA with narrow bilateral rals Home Environment Standard Height Toilet,Walk in Shower Home Equipment Four Wheel Walker,Manual Wheelchair,Raised Toilet Seat w/Armrests,Shower Seat with Backrest,Grab Bars In Shower Employment Status Retired Additional Social History Comment Pt lives with her son who provides assist with cleaning, pet care, and some meal prep. Pt also has a local daughter who provides some assist. M2 PT-IP Current Condition Start: 02/09/20 09:32 Freq: NEEDED Status: Active Protocol: Document 02/09/20 12:09 AW (Rec: 02/09/20 13:34 AW [id number]) Physical Therapy Current Condition Current Condition Evaluation Date 02/09/20 Treatment Diagnosis syncope, impaired balance, difficulty in walking Onset Date 02/06/20 Precautions Other Precautions fall risk, history of vertigo M3 PT-IP Subjective Start: 02/09/20 09:32 Freq: NEEDED Status: Active Protocol: Document 02/09/20 12:09 AW (Rec: 02/09/20 13:34 AW [id number]) Subjective Physical Therapy Visit Type Type Initial Evaluation Visit Start Time 11:51 Visit Stop Time 12:09 Total Visit Minutes 18 Notes Pt's daughter present throughout evaluation. Physical Therapy Visit Comments Patient Comments Pt is willing to participate with PT. Patient Goals Return home Therapy Pain Assessment Pain When Pain Assessed During Mobility Pain Present Pain Present Denied Pain M4 PT-IP Mobility and Gait Start: 02/09/20 09:32 Freq: NEEDED Status: Active Protocol: Document 02/09/20 12:09 AW (Rec: 02/09/20 13:34 AW [id number]) PT-Transfer Assessment Sit to and From Stand Sit to and from Stand Contact Guard Assistance,1 Person Assistance,Use of Upper Extremities Equipment Transfer Assistive Device None,Gait Belt Transfers Transfer Destination Chair Transfer Technique pt ambulated without AD Transfer Ability Level of Assist Contact Guard Assistance,Use of Upper Extremities Comments Mobility Comments Pt was sitting up in the chair as PT arrived. She completed sit to stand CGA and stood 2 minutes for balance assessment before ambulating in the halls. On return to the room, she transferred back to the chair CGA with poor control of descent. Sitting BP was 145/ 58 HR 77. Standing BP 133/62 HR 85 with pt reporting mild lightheadedness. After activity, BP was 151/69 HR 83 with pt reporting improvement in lightheadedness. She was positioned on the chair with call light and all needs in reach. Gait Assessment Gait Gait Assistance Required: Contact Guard Assist Distance (Feet) 80 Assistive Devices Assistive Device None,Gait Belt Gait Deviations General Gait Pattern Decreased Stride Length, Decreased Feet Clearance, Flexed Trunk Factors Limiting Gait Function Factors Limiting Gait Function Decreased Activity Tolerance, Decreased Sensation,Decreased Strength,Poor Balance,Poor Safety Awareness Comments Gait Comments Pt ambulated without AD SBA but began reaching for furniture and ramos after ~20 feet. After ~50 feet, pt required CGA and stated I feel like everything is just draining out of my feet. Pt was safely assisted back to the chair and reported her symptoms were markedly improving but not back to normal within 2 minutes. Stair Climbing Assessment Comments Stair Climbing Comments Not assessed due to pt condition PT-Balance Assessment Sitting Balance and Reactions Static Sitting Balance Ability Good Dynamic Sitting Balance Ability Good Standing Balance and Reactions Static Standing Balance Ability Fair Dynamic Standing Balance Ability Fair Balance Tests Single Limb Standing unable Romberg NWL EO; unable EC with immediate posterior LOB M5 PT-IP Objective Assessments Start: 02/09/20 09:32 Freq: NEEDED Status: Active Protocol: Document 02/09/20 12:09 AW (Rec: 02/09/20 13:34 AW [id number]) Orientation Orientation/Cognition Level of Alertness Alert Orientation Name,Day of Week,Place, Situation Language Function Ability No Deficits Noted Safety Awareness Understands Safety Issues Memory Description No Deficits Noted Gross Range of Motion Lower Extremity ROM Assessment Within Functional Limits Strength Lower Extremity Strength Assessment Bilaterally Impaired Hip 4-/5 Knee 4/5 Ankle 4/5 Coordination Assessment Gross Coordination Gross Coordination WNL Sensation Assessment Sensation Gross Sensation Right LE Impaired,Left LE Impaired Light Touch Impaired Proprioception (Position) Impaired Comments Sensation Comments 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 Muscle Tone Muscle Tone WNL Yes M6 PT-IP Treatment Start: 02/09/20 09:32 Freq: NEEDED Status: Active Protocol: Document 02/09/20 12:09 AW (Rec: 02/09/20 13:34 AW [id number]) Physical Therapy Treatment Education Education Provided Safety Other Treatments Other Treatment Performed Provided education on role of PT, plan of care, and importance of continued mobility. M7 PT-IP Assessment and Plan Start: 02/09/20 09:32 Freq: NEEDED Status: Active Protocol: Document 02/09/20 12:09 AW (Rec: 02/09/20 13:34 AW [id number]) PT Summary Assessment and Plan Potential Rehabilitation Potential Good Status of Condition at Evaluation Evolving Summary Impairments Strength,Balance,Sensation, Transfers,Gait,Activity Tolerance Assessment Summary Lida is an 84 yo woman seen for PT evaluation after a syncopal episode and fall at home. She is independent with household mobility at baseline but states she uses a power cart for shopping and wheelchair for longer distances. On evaluation, pt required SBA to CGA and reported lightheadedness and a draining sensation during ambulation of 80 feet. Pt's mobility is limited by pre- syncopal symptoms. She will benefit from acute PT to continue to progress her safe mobility. PT anticipates she will be safe to discharge home with assist and HH PT once medically stable. Will continue to assess. Goals Bed Mobility Goal Independent Transfer Goal Independent Gait Goal Independent Gait Distance 150 Other Goals - up/down 4 steps with narrow B rails SBA Days to Meet Goals 4 Frequency of Treatment Frequency Of Treatment Once a Day Treatment Plan Physical Therapy Treatment Plan Bed Mobility Training,Transfer Training,Gait Training, Therapeutic Exercise,Balance Retraining,Post Op Education, Discharge Planning,Hot or Cold Pack,Neuromuscular Re-ed Other Recommendations and Next Treatment progress gait distance with Focus possible w/c follow, stairs when able Recommendations To Nursing Amount of Assist Needed 1 Person Assist Discharge Recommendations PT Discharge Recommendations Home with Assistance,Home Health Transportation Needs at Discharge Private Vehicle
--- NOTE | 2020-02-09 13:38 | PM.DS.1 ---
History of Present Illness History of Present Illness Chief complaint: fall , bruised back, Andrey mcleod shldr pain Narrative: Ms. Lida Townsend is an 83-year-old female patient with a history significant for coronary artery disease, NSTEMI with stent placement (see 09/23/2018), cardiac arrhythmia, hypertension and hyperlipidemia who presents to the ER today following a syncopal episode on with recurrent episodes of lightheadedness with associated nausea and diaphoresis. The patient experienced single episode 2 days ago at her home where she lives alone. As she was passing out she grabbed on to a shelving rack which fell on top of her. She is able to call her daughter who lives close by who assisted her. She complains of persistent neck and back pain and flank pain. Patient states his as she was passing out her vision faded, she had no complaints of chest pain and felt no palpitations. She has had no recent illness denies complaints of fevers or chills or recent COVID-19 exposure. She has a headache located in right parietal head described as throbbing relieved with Tylenol No. 3. She reports no nasal congestion or sore throat. She complains of cervical spine and midthoracic back pain. She denies complaints of shortness of breath since starting Entresto 2 months ago. She is no longer using inhalers or nebulizers has no complaints of cough or wheezing. She complains of nausea only when she becomes lightheaded in which she describes as the blood draining from her. She reports no change in his bowel habits and has occasional constipation for which she takes stool softener as needed. She endorses urinary urgency but no complaints of burning or hematuria. The patient is typically independent in her ADLs but does have a walker that is available. Upon arrival to the ER the patient's temperature 97.1?, heart rate of 60, blood pressure 173/73, respirations of 18 saturation 96% on room air. Her pain level on arrival is 6/10. Imaging is obtained including a CT of the head which demonstrates chronic white matter small-vessel ischemic changes in cerebral volume loss. She has a CT of the spine finds no fractures but identifies a a Small corticated ossicle consistent with a prior small avulsion fracture of the C7 spinous proces; CT of the abdomen and pelvis which finds no solid organ abnormalities, bowel is normal thickness and caliber, colonic diverticulosis without diverticulitis, old compression fracture of T10. Twelve lead EKG is obtained finding a sinus rhythm with ventricular rate of 61 with an incomplete bundle branch block, no change from prior tracing. On laboratory analysis she has white count of 7.4, hemoglobin of 14.2, hematocrit 41.9 and platelets 213. Her PT is 11.9, INR 1.0 and a PTT of 27. Electrolytes are all within normal limits and has a BUN 21 and creatinine of 1.05. Her estimated GFR is 50.2. Her LFTs are all within normal limits and has an albumin of 4.1. Her total CK is 38 and troponin is negative. In the ER the patient received Tylenol with codeine x2 for pain, Benadryl, methylprednisolone 40 mg mixing 25 mg and Zofran. Multiple attempts were made to ambulate the patient unsuccessfully. The patient stood next to the bed for orthostatics were found to be negative and then following ambulation for approximately 30 ft she would have recurrent systems of lightheadedness and nausea with ringing in the ears. The patient is admitted to the hospitalist service for fall secondary to syncopal episode with recurrent lightheadedness/presyncopal symptoms. Discharge Providers Provider Date of admission: 02/09/20 00:11 Discharge Date: 02/09/20 Primary care physician: Zoe Bass PA-C Consults: 02/09/20 01:44 Consult to Occupational Therapy Evaluate & Treat Comment: Fall secondary to syncope, neck and pain Physician Instructions: Evaluate and treat Consult to Physical Therapy Evaluate & Treat Comment: Fall secondary to syncope, neck and pain Physician Instructions: Evaluate and Treat Discharge provider: William Mast MD Summary Hospital Course Discharge Diagnosis: 1. Syncope 2. Chronic heart failure with preserved EF 3. Stable CAD 4. Multiple ecchymosis secondary to ground level fall Hospital Course: Patient admitted due to concern of syncope associated with lightheadedness. She had multiple bruises on her body secondary to ground level fall. Cardiac workup was negative. She was not orthostatic in the ER but she became very lightheaded after walking 30 ft. Presyncopal symptoms were reproducible on repeated ambulation trials. Patient received cautious fluid resuscitation in the ED and furosemide dose was held the following morning. At time of discharge she is completely asymptomatic, evaluated by PT, and able to return home. Patient was started on Entresto earlier this year and also had her furosemide dose increased from 40 to 80 mg daily which may be contributing factors to syncope. She has no signs of volume overload. Therefore we elected to discharge her on her previous furosemide dose of 40 mg daily. She will follow-up with PCP MI Bass and dual rate dealer Dr. Ellington. Status at Discharge Cognitive/behavioral status at discharge: oriented Functional status at discharge: independent ambulation Overall status at discharge: patient is back to baseline Exam Vital Signs (past 8 hours): - 02/09/20 07:44 02/09/20 08:00 02/09/20 08:55 Temperature 98.5 F Pulse Rate 75 81 Pulse Rate [Orthostatic Lying] 94 H Pulse Rate [Orthostatic Sitting] 97 H Pulse Rate [Orthostatic Standing] 104 H Respiratory Rate 18 18 Blood Pressure 148/70 H Blood Pressure [Orthostatic Lying] 124/56 L Blood Pressure [Orthostatic Sitting] 122/65 Blood Pressure [Orthostatic Standing] 129/63 Pulse Oximetry 93 95 02/09/20 11:32 Temperature 98.0 F Pulse Rate 88 Pulse Rate [Orthostatic Lying] Pulse Rate [Orthostatic Sitting] Pulse Rate [Orthostatic Standing] Respiratory Rate 18 Blood Pressure 126/56 L Blood Pressure [Orthostatic Lying] Blood Pressure [Orthostatic Sitting] Blood Pressure [Orthostatic Standing] Pulse Oximetry 94 Oxygen Delivery Method Room Air Oxygen Flow Rate 0 Objective Labs Result Diagrams: 02/08/20 20:10 02/09/20 08:03 Labs: Laboratory Results - last 24 hr 02/08/20 02/08/20 02/08/20 20:10 20:10 20:10 WBC 7.4 RBC 4.77 Hgb 14.2 Hct 41.9 MCV 87.7 MCH 29.8 MCHC 34.0 RDW 16.1 H Plt Count 213 Neut % (Auto) 46.4 L Lymph % (Auto) 41.0 H [place] % (Auto) 8.8 Eos % (Auto) 2.8 Baso % (Auto) 1.0 Neut # (Auto) 3400 Lymph # (Auto) 3000 [place] # (Auto) 700 Eos # (Auto) 200 Baso # (Auto) 100 PT 11.9 INR 1.0 APTT 27 D Sodium 138 Potassium 4.0 Chloride 100 Carbon Dioxide 31 BUN 21 H Creatinine 1.05 H Estimated GFR 50.2 L BUN/Creatinine Ratio 20.0 Glucose 95 Calcium 9.1 Magnesium Total Bilirubin 0.4 AST 23 ALT 6 Alkaline Phosphatase 48 Total Creatine Kinase CK-MB (CK-2) CK-MB (CK-2) Rel Index Troponin I Total Protein 7.0 Albumin 4.1 Globulin 2.9 Albumin/Globulin Ratio 1.4 Lipase Urine Color Urine Appearance Urine pH Ur Specific [place] Urine Protein Urine Glucose (UA) Urine Ketones Urine Occult Blood Urine Nitrate Urine Bilirubin Urine Urobilinogen Ur Leukocyte Esterase Urine RBC Urine WBC Ur Squamous Epith Cells Calcium Oxalate Crystal Urine Bacteria Hyaline Casts Ur Culture Indicated? COVID-19 PCR 02/08/20 02/08/20 02/09/20 20:10 20:10 00:12 WBC RBC Hgb Hct MCV MCH MCHC RDW Plt Count Neut % (Auto) Lymph % (Auto) [place] % (Auto) Eos % (Auto) Baso % (Auto) Neut # (Auto) Lymph # (Auto) [place] # (Auto) Eos # (Auto) Baso # (Auto) PT INR APTT Sodium Potassium Chloride Carbon Dioxide BUN Creatinine Estimated GFR BUN/Creatinine Ratio Glucose Calcium Magnesium 2.0 Total Bilirubin AST ALT Alkaline Phosphatase Total Creatine Kinase 38 CK-MB (CK-2) TNP CK-MB (CK-2) Rel Index TNP Troponin I < 0.012 Total Protein Albumin Globulin Albumin/Globulin Ratio Lipase 190 Urine Color Urine Appearance Urine pH Ur Specific [place] Urine Protein Urine Glucose (UA) Urine Ketones Urine Occult Blood Urine Nitrate Urine Bilirubin Urine Urobilinogen Ur Leukocyte Esterase Urine RBC Urine WBC Ur Squamous Epith Cells Calcium Oxalate Crystal Urine Bacteria Hyaline Casts Ur Culture Indicated? COVID-19 PCR Negative 02/09/20 02/09/20 07:39 08:03 WBC RBC Hgb Hct MCV MCH MCHC RDW Plt Count Neut % (Auto) Lymph % (Auto) [place] % (Auto) Eos % (Auto) Baso % (Auto) Neut # (Auto) Lymph # (Auto) [place] # (Auto) Eos # (Auto) Baso # (Auto) PT INR APTT Sodium 135 L Potassium 4.6 Chloride 99 Carbon Dioxide 29 BUN 20 H Creatinine 0.97 Estimated GFR 55.0 L BUN/Creatinine Ratio 20.6 Glucose 161 H Calcium 9.0 Magnesium Total Bilirubin AST ALT Alkaline Phosphatase Total Creatine Kinase CK-MB (CK-2) CK-MB (CK-2) Rel Index Troponin I Total Protein Albumin Globulin Albumin/Globulin Ratio Lipase Urine Color Yellow Urine Appearance Clear Urine pH 5.5 Ur Specific [place] 1.020 Urine Protein 1+ H Urine Glucose (UA) Negative Urine Ketones Negative Urine Occult Blood Negative Urine Nitrate Negative Urine Bilirubin Negative Urine Urobilinogen 0.2 Ur Leukocyte Esterase Negative Urine RBC 0-1/hpf Urine WBC 0-1/hpf Ur Squamous Epith Cells 1-5 /hpf Calcium Oxalate Crystal Occasional H Urine Bacteria None seen Hyaline Casts 0-1/lpf Ur Culture Indicated? Cult not indicated COVID-19 PCR Discharge Plan Discharge Plan Patient Disposition: Home Discharge orders & Medications Prescriptions: New furosemide 40 mg tablet 40 mg PO DAILY Qty: 30 RF: 0 Continued aspirin 81 MG tablet,delayed release (DR/EC) 81 mg PO DAILY Qty: 0 RF: 0 clopidogrel 75 mg tablet 75 mg PO DAILY RF: 0 escitalopram oxalate 5 mg tablet 10 mg PO DAILY RF: 0 cholecalciferol (vitamin D3) [Vitamin D3] 5,000 unit Tablet 5,000 unit PO DAILY RF: 0 methocarbamol 750 mg tablet 750 mg PO TID PRN (Reason: muscle spasm) Qty: 14 RF: 0 Entresto 24-26 mg tablet 1 tab PO BID RF: 0 ranolazine 500 mg tablet extended release 12 hr 500 mg PO BID RF: 0 acetaminophen-codeine 300-30 mg tablet 1 tab PO Q4-6H PRN (Reason: pain) Qty: 15 RF: 0 nitroglycerin 0.4 mg tablet, sublingual 1 tab sublingual [id number] PRN (Reason: Chest Pain) RF: 0 rosuvastatin 40 mg tablet 40 mg PO QPM RF: 0 cyanocobalamin (vitamin B-12) 2,000 mcg Tablet 2,000 mcg PO DAILY RF: 0 potassium chloride 10 mEq capsule, extended release 10 meq PO DAILY RF: 0 metoprolol tartrate 25 mg tablet 25 mg PO BID RF: 0 alprazolam 0.5 mg Tablet 0.5 mg PO TID PRN (Reason: Anxiety) RF: 0 lidocaine 5 % Adhesive Patch,Medicated 1 patch TOPICAL DAILY PRN (Reason: Pain (Scale Score 1-3)) RF: 0 Discontinued furosemide 20 mg tablet 80 mg PO DAILY RF: 0 Follow up/Referrals: Zoe Bass PA-C [Primary Care Provider] - Diet/Activity/Treatments Diet: Diet as Tolerated Visit Report/Discharge Packet Instructions: DI for Syncope in Adults (Fainting), DI for Heart Failure, How to Prevent Falls, DI for Prescription Opioid Use Visit Report Forms: Patient Portal/API, Stroke Signs & Symptoms Discharge Data Primary Care Provider: Zoe Bass VTE Deep Vein Thrombosis/Pulmonary Embolism Present on Admission: No
--- NOTE | 2020-02-09 14:26 | PC.NURSE ---
Addendum entered by Sergio Caban R.N. 02/09/20 15:09: Spoke with Dr. Mast about patient's concerns. He states still ok for discharge with safety instructions and home jose as discussed. Patient is wanting to go home. Patient and her daughter have no further questions or concerns at this time, and agree to call her PCP's office tomorrow to ensure a schedule for follow up appointment. Patient instructed to call 911 for medical emergency, should symptoms return or worsen. Patient escorted out via wheelchair with all her belongings to be discharged to home with her family. Original Note: Discussed discharge instructions and home care handouts with patient and her daughter. Patient feeling well sitting up in chair and had seen doctor and received discharge order to home. Patient then reported to this RN that she had had a feeling of draining after ambulation into halls with P.T. which was not reported prior and that she was in fact feeling a bit nervous about discharge. Discussed safety and discharge options extensively with patient and her daughter. Patient does want to discharge at this time. She states she has her son home with her and will have him close by when she is up, states she has a walker that she doesn't always use normally but she will use walker at all times right now and it has a seat available to sit on if she feels faint. Sheila from care management in to see patient and discuss home health options available. Waiting to hear back from MD to verify discharge as ordered. Patient already has IV out and monitor off to get dressed at this time, her ride is on the way.
== END 2020-02-09 15:14 | disposition home or self-care (01) ==
LOC: ED 02-09 00:02 → AC 02-09 09:54
PROVIDERS: Admitting Provider Nurse Practitioner Adult Health; Emergency Provider Emergency Medicine; Family Provider Internal Medicine; PCP Physician Assistant Medical; Referring Provider Emergency Medicine; Visit Provider Nurse Practitioner Adult Health
DX: M54.9 Dorsalgia, unspecified (principal); R55 Syncope and collapse; W18.30XA Fall on same level, unspecified, initial encounter; Y92.012 Bathroom of single-family (private) house as the place of occurrence of the external cause; Z79.01 Long term (current) use of anticoagulants; I25.10 Atherosclerotic heart disease of native coronary artery without angina pectoris; E78.5 Hyperlipidemia, unspecified; I25.2 Old myocardial infarction; I10 Essential (primary) hypertension; I50.32 Chronic diastolic (congestive) heart failure; Z11.59 Encounter for screening for other viral diseases
CPT/HCPCS: 36415; 70450; 72125; 73030; 74177; 80048; 80053; 81001; 82550; 83690; 83735; 84484; 85025; 85610; 85730; 87635; 93005; 94762; 96361; 96372; 96374; 96375; 97161; 99284; G0378; J1200; J1644; J1940; J2405; J2930; Q9967

== ENCOUNTER 2020-02-17 18:51 | Emergency (ER) | payer MEDICARE, OTHER, SELFPAY ==
[2020-02-09 00:42] VITALS: BMI 34.0
[2020-02-17] VITALS (10 sets, daily range): BP systolic 102–156; BP diastolic 55–68; PULSE 59–78; RESP 14–30; TEMP 36.3; O2SAT 91–98
--- NOTE | 2020-02-17 19:02 | ED_ITS ---
HPI - Dizziness General Chief Complaint: Chest Pain Stated Complaint: DIZZY WHEN STANDING COLD LEGS HURT Time Seen by Provider: 02/17/20 19:01 Source: patient and family Mode of arrival: Ambulatory Limitations: no limitations History of Present Illness HPI Narrative: 84-year-old female with history of coronary artery disease, hyperlipidemia, hypertension, cardiac arrest presents with family in the chief complaint of ongoing episodes of lightheadedness upon standing. This has been going on, increasingly over the past few days to weeks and she has in fact had a syncopal episode as recently as last week due to the lightheadedness. She was worked up in the emergency department and admitted overnight and had some alterations in her medications including removing dose of her Lasix. She states when she stands up she begins to get lightheaded which resolves in 30-60 seconds and then she can start walking. She states when this is happening she feels like her hands and legs get tingly and she develops some chest pressure. She denies any other medication or dietary change. She denies runny nose, sore thro at or cough nor exposure to persons known to have COVID-19. complaint: lightheadedness and near syncope Onset (ago): hour(s) Timing: sudden onset Description: lightheadedness and near-syncope History of similar episodes: Yes History of trauma: Yes Severity: moderate Relieving factors: other Exacerbating factors: other Related Data Home Medications Medication Instructions Recorded Confirmed aspirin 81 mg PO DAILY #0 05/14/17 02/09/20 cyanocobalamin (vitamin B-12) 2,000 mcg PO DAILY 11/18/18 02/09/20 nitroglycerin 1 tab SUBLINGUAL [id number] PRN 11/18/18 02/09/20 rosuvastatin 40 mg PO QPM 11/18/18 02/09/20 metoprolol tartrate 25 mg PO BID 01/23/19 02/09/20 potassium chloride 10 meq PO DAILY 01/23/19 02/09/20 cholecalciferol (vitamin D3) 5,000 unit PO DAILY 05/03/19 02/09/20 [Vitamin D3] clopidogrel 75 mg PO DAILY 05/03/19 02/09/20 escitalopram oxalate 10 mg PO DAILY 05/03/19 02/09/20 alprazolam 0.5 mg PO TID PRN 06/01/19 02/09/20 lidocaine 1 patch TOPICAL DAILY PRN 06/01/19 02/09/20 Entresto 1 tab PO BID 02/09/20 02/09/20 ranolazine 500 mg PO BID 02/09/20 02/09/20 Previous Rx's Medication Instructions Recorded methocarbamol 750 mg PO TID PRN #14 tab 11/18/19 acetaminophen-codeine 1 tab PO Q4-6H PRN #15 tab 02/09/20 furosemide 40 mg PO DAILY #30 tab 02/09/20 cephalexin [Keflex] 500 mg PO QID 7 Days #28 cap 02/17/20 Allergies Allergy/AdvReac Type Severity Reaction Status Date / Time erythromycin base Allergy Severe Rash Verified 11/06/19 12:57 [ERYTHROMYCIN BASE] ibuprofen [IBUPROFEN] Allergy Severe Rash Verified 11/06/19 12:57 Iodinated Contrast Media Allergy Severe Unconscious Verified 11/06/19 12:57 [IODINATED CONTRAST- ORAL AND IV DYE] morphine [MORPHINE] Allergy Severe Rash Verified 11/06/19 12:57 naproxen [From ALEVE] Allergy Severe Rash Verified 11/06/19 12:57 telmisartan [TELMISARTAN] Allergy Severe Rash Verified 11/06/19 12:57 Review of Systems Constitutional Constitutional: Denies chills, Denies fatigue, Denies fever(s), Denies frequent falls, Denies lethargy and Denies weakness Eyes Eyes: Denies change in vision, Denies eye discharge, Denies irritation and Denies loss of vision ENT Ears, Nose, Mouth, and Throat: Denies change in voice, Denies dizziness, Denies neck pain, Denies sore throat and Denies throat swelling Cardiovascular Cardiovascular: Denies chest pain, Denies irregular heart rhythm, Reports lightheadedness, Denies palpitations, Denies dyspnea, Denies dyspnea on exertion and Denies orthopnea Respiratory Respiratory: Denies cough, Denies dyspnea, Denies dyspnea on exertion and Denies wheezing Gastrointestinal Gastrointestinal: Denies abdominal pain, Denies change in bowel habits, Denies diarrhea, Denies nausea and Denies vomiting Musculoskeletal Musculoskeletal: Denies neck pain and Denies numbness Integumentary/Breasts Skin/Breast: Denies pruritus, Denies erythema, Denies rash and Denies wounds Neurologic Neurologic: Denies behavioral changes, Denies confusion, Denies dizziness, Denies frequent falls, Denies loss of vision, Denies numbness and Denies weakness Psychiatric Psychiatric: Denies anxiety, Denies behavioral changes, Denies confusion, Denies depression, Denies homicidal ideation and Denies suicidal ideation Endocrine Endocrine: Denies fatigue, Denies flushing and Denies palpitations Hematologic/Lymphatic Hematologic/Lymphatic: Denies easy bruising Allergic/Immunologic Allergic/Immunologic: Denies urticaria, Denies throat swelling and Denies wheezing Patient History Medical History Cardiac arrest (Acute) Chest pain (Inactive) Coronary artery disease (Acute) Diastolic heart failure (Acute) Hyperlipidemia (Acute) Hypertension (Acute) Left hamstring muscle strain (Inactive) NSTEMI (non-ST elevated myocardial infarction) (Acute) Skin cancer (Acute) UTI (urinary tract infection) (Inactive) Surgical History H/O right heart catheterization (Inactive) History of appendectomy (Acute) History of breast implant removal (Acute) History of breast surgery (Acute) History of cholecystectomy (Acute) History of coronary artery stent placement (Acute) History of total abdominal hysterectomy (Acute) Family History Father Hypertension Diabetes mellitus Mother Hypertension PR (myocardial infarction) Sister PR (myocardial infarction) S/P CABG x 4 Social History household members: children Smoking Status: Never smoker Smoking Status: Never smoker alcohol intake frequency: holidays/special occasions only Substance Use Type: does not use Exam Initial Vital Signs Initial Vital Signs: Vital Signs Temperature 97.4 F L 02/17/20 19:03 Pulse Rate 78 02/17/20 19:03 Respiratory Rate 20 02/17/20 19:03 Blood Pressure 113/59 L 02/17/20 19:03 Pulse Oximetry 97 02/17/20 19:03 Course Orders Ordered: Discontinued Medications Cefazolin Sodium (Keflex 250 Mg Prepack) 1 bottle MIS SEEINSTR ONE Stop: 02/17/20 21:47 Last Admin: 02/17/20 21:51 Dose: 250 mg Documented by: KGALLAG Sodium Chloride (Normal Saline 0.9%) 1,000 mls @ 125 mls/hr IV CONT AFIA Last Infusion: 02/17/20 21:58 Dose: 0 mls/hr Documented by: Admin: 02/17/20 19:36 Dose: 125 mls/hr Documented by: SHIMON MDM - Dizziness Lab Data Result diagrams: 02/17/20 19:35 02/17/20 19:35 Labs: Lab Results 02/17/20 02/17/20 02/17/20 Range/Units 19:35 19:35 19:35 WBC 8.3 (4.5-11.0) X10^3/uL RBC 4.63 (4.0-5.2) X10^6/uL Hgb 13.7 (12.0-16.0) g/dL Hct 40.6 (36-46) % MCV 87.6 (80-100) fL MCH 29.6 (26-34) PG MCHC 33.7 (30-36) % RDW 16.2 H (11.6-14.8) % Plt Count 254 (150-400) X10^3/uL Neut % (Auto) 52.3 (50-75) % Lymph % (Auto) 33.3 (25-40) % [place] % (Auto) 10.4 (3-14) % Eos % (Auto) 2.7 (2-4) % Baso % (Auto) 1.3 (0-2) % Neut # (Auto) 4300 (7721-5885) /uL Lymph # (Auto) 2800 (5086-3984) /uL [place] # (Auto) 900 (0-900) /uL Eos # (Auto) 200 (0-450) /uL Baso # (Auto) 100 (0-100) /uL Sodium 135 L (137-145) mmol/L Potassium 4.0 (3.4-5.1) mmol/L Chloride 98 (98-107) mmol/L Carbon Dioxide 31 (22-32) mmol/L BUN 26 H (7-17) mg/dL Creatinine 1.37 H (0.52-1.04) mg/dL Estimated GFR 36.9 L (>60) mL/min BUN/Creatinine Ratio 19.0 (6-22) Glucose 109 (80-110) mg/dL Calcium 9.4 (8.4-10.2) mg/dL Magnesium 2.1 (1.6-2.3) mg/dL Total Bilirubin 0.5 (0.2-1.3) mg/dL AST 32 (14-36) IU/L ALT 9 (<35) IU/L Alkaline Phosphatase 48 (38-126) U/L Total Creatine Kinase 40 (30-135) U/L CK-MB (CK-2) TNP CK-MB (CK-2) Rel Index TNP Troponin I 0.013 (0.01-0.034) ng/mL NT-Pro-B Natriuret Pep 287 (<450) pg/mL Total Protein 7.0 (6.3-8.2) g/dL Albumin 4.1 (3.5-5.0) g/dL Globulin 2.9 (1.7-4.1) g/dL Albumin/Globulin Ratio 1.4 (1.0-2.8) Urine RBC (0-5/HPF) Urine WBC (0-5/HPF) Ur Squamous Epith Cells (0-5/HPF) Urine Bacteria (None) Ur Culture Indicated? 02/17/20 Range/Units 19:40 WBC (4.5-11.0) X10^3/uL RBC (4.0-5.2) X10^6/uL Hgb (12.0-16.0) g/dL Hct (36-46) % MCV (80-100) fL MCH (26-34) PG MCHC (30-36) % RDW (11.6-14.8) % Plt Count (150-400) X10^3/uL Neut % (Auto) (50-75) % Lymph % (Auto) (25-40) % [place] % (Auto) (3-14) % Eos % (Auto) (2-4) % Baso % (Auto) (0-2) % Neut # (Auto) (1405-6491) /uL Lymph # (Auto) (7004-0164) /uL [place] # (Auto) (0-900) /uL Eos # (Auto) (0-450) /uL Baso # (Auto) (0-100) /uL Sodium (137-145) mmol/L Potassium (3.4-5.1) mmol/L Chloride (98-107) mmol/L Carbon Dioxide (22-32) mmol/L BUN (7-17) mg/dL Creatinine (0.52-1.04) mg/dL Estimated GFR (>60) mL/min BUN/Creatinine Ratio (6-22) Glucose (80-110) mg/dL Calcium (8.4-10.2) mg/dL Magnesium (1.6-2.3) mg/dL Total Bilirubin (0.2-1.3) mg/dL AST (14-36) IU/L ALT (<35) IU/L Alkaline Phosphatase (38-126) U/L Total Creatine Kinase (30-135) U/L CK-MB (CK-2) CK-MB (CK-2) Rel Index Troponin I (0.01-0.034) ng/mL NT-Pro-B Natriuret Pep (<450) pg/mL Total Protein (6.3-8.2) g/dL Albumin (3.5-5.0) g/dL Globulin (1.7-4.1) g/dL Albumin/Globulin Ratio (1.0-2.8) Urine RBC 0-1/hpf (0-5/HPF) Urine WBC 5-10/hpf H (0-5/HPF) Ur Squamous Epith Cells 1-5 /hpf (0-5/HPF) Urine Bacteria Few (2-10) H (None) Ur Culture Indicated? Specimen cultured Urine Dip Bedside Urine Glucose Negative Bedside Urine Bilirubin - Negative Bedside Urine Ketone - Negative Urine Specific [place] 1.030 Bedside Urine Occult Blood - Negative Bedside Urine pH 5.5 Bedside Urine Protein + 30 Bedside Urine Urobilinogen - Negative Bedside Urine Nitrite - Negative Bedside Urine Leukocytes - Negative Esterase Discharge Plan Departure Patient Disposition: Home Clinical Impression: Acute dehydration, Acute UTI Discharge Date/Time: 02/17/20 21:58 Activity Restrictions/Additional Instructions: *You have been diagnosed with [acute dehydration and urinary tract infection] *What to do: *Take medications as directed *Follow up with your primary care provider in 2-3 days, call for an appointment. Let them know you were seen in the Emergency Department and that we ask that you be seen in follow up *Return to ER if you should have any new, worsening or concerning symptoms Prescriptions: New cephalexin [Keflex] 500 mg capsule 500 mg PO QID 7 Days Qty: 28 RF: 0 No Action aspirin 81 MG tablet,delayed release (DR/EC) 81 mg PO DAILY Qty: 0 RF: 0 clopidogrel 75 mg tablet 75 mg PO DAILY RF: 0 escitalopram oxalate 5 mg tablet 10 mg PO DAILY RF: 0 cholecalciferol (vitamin D3) [Vitamin D3] 5,000 unit Tablet 5,000 unit PO DAILY RF: 0 methocarbamol 750 mg tablet 750 mg PO TID PRN (Reason: muscle spasm) Qty: 14 RF: 0 Entresto 24-26 mg tablet 1 tab PO BID RF: 0 ranolazine 500 mg tablet extended release 12 hr 500 mg PO BID RF: 0 furosemide 40 mg tablet 40 mg PO DAILY Qty: 30 RF: 0 acetaminophen-codeine 300-30 mg tablet 1 tab PO Q4-6H PRN (Reason: pain) Qty: 15 RF: 0 nitroglycerin 0.4 mg tablet, sublingual 1 tab sublingual [id number] PRN (Reason: Chest Pain) RF: 0 rosuvastatin 40 mg tablet 40 mg PO QPM RF: 0 cyanocobalamin (vitamin B-12) 2,000 mcg Tablet 2,000 mcg PO DAILY RF: 0 potassium chloride 10 mEq capsule, extended release 10 meq PO DAILY RF: 0 metoprolol tartrate 25 mg tablet 25 mg PO BID RF: 0 alprazolam 0.5 mg Tablet 0.5 mg PO TID PRN (Reason: Anxiety) RF: 0 lidocaine 5 % Adhesive Patch,Medicated 1 patch TOPICAL DAILY PRN (Reason: Pain (Scale Score 1-3)) RF: 0 Referrals: Zoe Bass PA-C [Primary Care Provider] -
[2020-02-17] MEDS: SODIUM CHLORIDE 0.9% 1,000 ML 125 ML IV (19:36)
[2020-02-17 19:41] LABS: Add Manual Diff / Slide Review NO; Basophils Absolute Auto 100 /uL (0-100); Basophils Percent Auto 1.3 % (0-2); Eosinophils Absolute Auto 200 /uL (0-450); Eosinophils Percent Auto 2.7 % (2-4); Hematocrit 40.6 % (36-46); Hemoglobin 13.7 g/dL (12.0-16.0); Lymphocytes Absolute Auto 2800 /uL (1100-4500); Lymphocytes Percent Auto 33.3 % (25-40); Mean Corpuscular HGB Conc 33.7 % (30-36); Mean Corpuscular Hemoglobin 29.6 PG (26-34); Mean Corpuscular Volume 87.6 fL (80-100); Monocytes Absolute Auto 900 /uL (0-900); Monocytes Percent Auto 10.4 % (3-14); Neutrophils Absolute Auto 4300 /uL (1500-7000); Neutrophils Percent Auto 52.3 % (50-75); Platelet Count 254 X10^3/uL (150-400); Red Blood Cell Count 4.63 X10^6/uL (4.0-5.2); Red Cell Distribution Width 16.2 % (11.6-14.8); White Blood Cell Count 8.3 X10^3/uL (4.5-11.0)
[2020-02-17 19:58] LABS: Alanine Aminotransferase 9 IU/L (<35); Albumin 4.1 g/dL (3.5-5.0); Albumin Globulin Ratio 1.4 (1.0-2.8); Alkaline Phosphatase 48 U/L (38-126); Aspartate Aminotransferase 32 IU/L (14-36); Bilirubin Total 0.5 mg/dL (0.2-1.3); Blood Urea Nitrogen 26 mg/dL (7-17); Calcium 9.4 mg/dL (8.4-10.2); Carbon Dioxide 31 mmol/L (22-32); Chloride 98 mmol/L (98-107); Creatine Kinase 40 U/L (30-135); Estimated Glomerular Filt Rate 36.9 mL/min (>60); Globulin 2.9 g/dL (1.7-4.1); Glucose 109 mg/dL (80-110); HEMOLYSIS 50 (0-50); Magnesium 2.1 mg/dL (1.6-2.3); Sodium 135 mmol/L (137-145)
[2020-02-17 20:06] LABS: NT-proBNP (BNP-Adult 18+) 287 pg/mL (<450)
[2020-02-17 20:09] LABS: Troponin I 0.013 ng/mL (0.01-0.034)
[2020-02-17 20:12] LABS: Bacteria Urine Few (2-10); Culture Indicated Urine Specimen Cultured; RBC Urine 0-1/HPF (0-5/HPF); Squamous Epithelial Cell Urine 1-5 /HPF (0-5/HPF); WBC Urine 5-10/HPF (0-5/HPF)
[2020-02-17] MEDS: cephALEXin 250 MG PREPACK 1 BOTTLE MISC (21:51)
== END 2020-02-17 21:58 | disposition home or self-care (01) ==
PROVIDERS: Emergency Provider Emergency Medicine; Family Provider Internal Medicine; PCP Physician Assistant Medical
DX: E86.0 Dehydration (principal); N39.0 Urinary tract infection, site not specified; I25.10 Atherosclerotic heart disease of native coronary artery without angina pectoris; E78.5 Hyperlipidemia, unspecified; I10 Essential (primary) hypertension
CPT/HCPCS: 36415; 80053; 81003; 81015; 82550; 83735; 83880; 84484; 85025; 87086; 93005; 96360; 96361; 99284

== ENCOUNTER 2020-03-14 14:58 | Emergency (ER) | payer MEDICARE, OTHER, SELFPAY ==
[2020-02-09 00:42] VITALS: BMI 34.0
[2020-03-14] VITALS (29 sets, daily range): BP systolic 90–201; BP diastolic 52–88; PULSE 59–83; RESP 10–18; TEMP 36.4; O2SAT 92–99; BMI 36.9
--- NOTE | 2020-03-14 15:09 | ED_ITS ---
HPI - Chest Pain <Zarina Brittanie, DO - Last Filed: 03/15/20 07:51> General Chief Complaint: Chest Pain Stated Complaint: pressure in chest and arms Time Seen by Provider: 03/14/20 15:09 Source: patient Mode of arrival: Wheelchair Limitations: no limitations History of Present Illness HPI narrative: Patient is an 84-year-old female with history of coronary artery disease with multiple some stents and heart catheterizations, hyperlipidemia, hypertension. She had a hospitalization 09/09/2019 chest pain was felt to be noncardiac at that time she had a heart catheterization 09/20/2019 which showed LAD stents open and proximal right coronary artery stent. She presents today with chest discomfort and pain between her shoulder blades. She had some discomfort yesterday she says today she woke up and was having severe pain has she took nitroglycerin prior to arrival which she says now made her dizzy and lightheaded. Related Data Home Medications Medication Instructions Recorded Confirmed aspirin 81 mg PO DAILY #0 05/14/17 02/09/20 cyanocobalamin (vitamin B-12) 2,000 mcg PO DAILY 11/18/18 02/09/20 nitroglycerin 1 tab SUBLINGUAL [id number] PRN 11/18/18 02/09/20 rosuvastatin 40 mg PO QPM 11/18/18 02/09/20 metoprolol tartrate 25 mg PO BID 01/23/19 02/09/20 potassium chloride 10 meq PO DAILY 01/23/19 02/09/20 cholecalciferol (vitamin D3) 5,000 unit PO DAILY 05/03/19 02/09/20 [Vitamin D3] clopidogrel 75 mg PO DAILY 05/03/19 02/09/20 escitalopram oxalate 10 mg PO DAILY 05/03/19 02/09/20 alprazolam 0.5 mg PO TID PRN 06/01/19 02/09/20 lidocaine 1 patch TOPICAL DAILY PRN 06/01/19 02/09/20 Entresto 1 tab PO BID 02/09/20 02/09/20 ranolazine 500 mg PO BID 02/09/20 02/09/20 Previous Rx's Medication Instructions Recorded methocarbamol 750 mg PO TID PRN #14 tab 11/18/19 acetaminophen-codeine 1 tab PO Q4-6H PRN #15 tab 02/09/20 furosemide 40 mg PO DAILY #30 tab 02/09/20 Allergies Allergy/AdvReac Type Severity Reaction Status Date / Time erythromycin base Allergy Severe Rash Verified 03/14/20 15:14 [ERYTHROMYCIN BASE] ibuprofen [IBUPROFEN] Allergy Severe Rash Verified 03/14/20 15:14 Iodinated Contrast Media Allergy Severe Unconscious Verified 03/14/20 15:14 [IODINATED CONTRAST- ORAL AND IV DYE] morphine [MORPHINE] Allergy Severe Rash Verified 03/14/20 15:14 naproxen [From ALEVE] Allergy Severe Rash Verified 03/14/20 15:14 telmisartan [TELMISARTAN] Allergy Severe Rash Verified 03/14/20 15:14 Review of Systems <Zarina Gu DO - Last Filed: 03/15/20 07:51> Review of Systems Narrative: GENERAL: Denies chills, fatigue, malaise, fever, sweats, travel HEENT: Denies sinus pain, ear pain, sore throat, difficulty swallowing, neck pain RESPIRATORY: Denies dyspnea, cough, wheezing, hemoptysis, sputum. CARDIOVASCULAR: See HPI GASTROINTESTINAL: Denies nausea, vomiting, abdominal pain, diarrhea, constipation, melena. : Denies dysuria, frequency, incontinence, hematuria, urinary retention, flank pain. MUSCULOSKELETAL: Denies weakness, joint pain, or bony pain SKIN: No rash, no erythema, no pruritus NEUROLOGIC: Denies weakness, dizziness, headache, numbness, change in speech, confusion PSYCHIATRIC: No concerning psychosocial issues. 12 point review of systems is negative except for those stated above and HPI Patient History <Zarina Gu DO - Last Filed: 03/15/20 07:51> Medical History (Updated 03/14/20 @ 20:26 by Zarina Gu DO) Cardiac arrest (Acute) Chest pain (Inactive) Coronary artery disease (Acute) Diastolic heart failure (Acute) Hyperlipidemia (Acute) Hypertension (Acute) Left hamstring muscle strain (Inactive) NSTEMI (non-ST elevated myocardial infarction) (Acute) Skin cancer (Acute) UTI (urinary tract infection) (Inactive) Surgical History H/O right heart catheterization (Inactive) History of appendectomy (Acute) History of breast implant removal (Acute) History of breast surgery (Acute) History of cholecystectomy (Acute) History of coronary artery stent placement (Acute) History of total abdominal hysterectomy (Acute) Family History Father Hypertension Diabetes mellitus Mother Hypertension MS (myocardial infarction) Sister MS (myocardial infarction) S/P CABG x 4 Social History household members: children Smoking Status: Never smoker Smoking Status: Never smoker alcohol intake frequency: holidays/special occasions only Substance Use Type: does not use Exam <Zarina Gu DO - Last Filed: 03/15/20 07:51> Initial Vital Signs Initial Vital Signs: Vital Signs Pulse Rate 64 03/14/20 15:10 Respiratory Rate 17 03/14/20 15:10 Pulse Oximetry 99 03/14/20 15:10 GENERAL: Alert elderly female appears to have some discomfort and in no acute distress. HEENT: Head atraumatic,EOMI, pupils reactive, face symmetric, moist mucous membranes CARDIOVASCULAR: Regular rate and rhythm without murmurs, rubs or gallops. RESPIRATORY: Breath sounds equal bilaterally, no wheezes rales or rhonchi. ABDOMEN: Soft, nontender. Normoactive bowel sounds all 4 quadrants. No guarding or rebound. EXTREMITIES: Normal range of motion, no clubbing or edema. Neurovascularly int act NEUROLOGICAL: Alert and oriented x4.Normal gait and speech. Cranial nerves II through XII grossly intact. Good [id number], good took-pb-rocb, strength equal bilaterally, no dysarthria or aphasia, sensation in tact to soft touch bilaterally, no visual changes, no facial droop SKIN: Warm, dry, no laceration, no petechiae, no rashes or lesions. <Valerio East DO - Last Filed: 03/14/20 22:02> Initial Vital Signs Initial Vital Signs: Vital Signs Pulse Rate 64 03/14/20 15:10 Respiratory Rate 17 03/14/20 15:10 Pulse Oximetry 99 03/14/20 15:10 Course <Zarina Gu DO - Last Filed: 03/15/20 07:51> Orders Ordered: Discontinued Medications Aspirin (Aspirin Chew) 324 mg PO NOW ONE Stop: 03/14/20 15:17 Last Admin: 03/14/20 15:38 Dose: 324 mg Documented by: IVAN Diphenhydramine HCl (Benadryl) 25 mg IV NOW ONE Stop: 03/14/20 17:23 Last Admin: 03/14/20 17:48 Dose: 25 mg Documented by: CARIR Hydromorphone HCl (Dilaudid) 0.5 mg IV NOW ONE Stop: 03/14/20 17:23 Last Admin: 03/14/20 17:46 Dose: 0.5 mg Documented by: KEVININOR Hydromorphone HCl (Dilaudid) 0.5 mg IV NOW ONE Stop: 03/14/20 21:35 Last Admin: 03/14/20 21:42 Dose: 0.5 mg Documented by: STEWART Sodium Chloride (Normal Saline 0.9%) 1,000 mls @ 150 mls/hr IV CONT AFIA Last Infusion: 03/14/20 22:44 Dose: 0 mls/hr Documented by: Admin: 03/14/20 15:40 Dose: 150 mls/hr Documented by: IVAN Methylprednisolone (Solu-Medrol 125 Mg Vial) 125 mg IV NOW ONE Stop: 03/14/20 17:23 Last Admin: 03/14/20 17:49 Dose: 125 mg Documented by: IVAN Nitroglycerin (Nitrostat) 0.4 mg SL NOW ONE Stop: 03/14/20 20:14 Last Admin: 03/14/20 20:18 Dose: 0.4 mg Documented by: STEWART Vital Signs Vital signs: Vital Signs - 8 hr 03/14/20 15:10 03/14/20 15:12 03/14/20 15:15 Temperature 97.6 F Pulse Rate 64 63 63 Respiratory Rate 17 18 13 Blood Pressure 90/52 L 90/52 L Pulse Oximetry 99 97 97 03/14/20 15:30 03/14/20 15:31 03/14/20 16:00 Temperature Pulse Rate 60 60 59 L Respiratory Rate 15 14 12 Blood Pressure 166/72 H Pulse Oximetry 97 97 97 03/14/20 16:01 03/14/20 16:30 03/14/20 16:31 Temperature Pulse Rate 60 61 61 Respiratory Rate 16 10 L 12 Blood Pressure 162/69 H 162/70 H Pulse Oximetry 97 97 97 03/14/20 17:00 03/14/20 17:01 03/14/20 17:30 Temperature Pulse Rate 61 61 64 Respiratory Rate 10 L 16 15 Blood Pressure 164/70 H 177/74 H Pulse Oximetry 97 97 96 03/14/20 18:08 03/14/20 18:30 03/14/20 18:46 Temperature Pulse Rate 81 71 69 Respiratory Rate 10 L 14 Blood Pressure 187/77 H Pulse Oximetry 95 97 98 03/14/20 19:00 03/14/20 19:01 03/14/20 19:30 Temperature Pulse Rate 71 71 74 Respiratory Rate 12 15 11 L Blood Pressure 192/74 H Pulse Oximetry 97 96 93 03/14/20 19:31 03/14/20 20:00 03/14/20 20:01 Temperature Pulse Rate 75 82 83 Respiratory Rate 12 16 13 Blood Pressure 201/79 H Pulse Oximetry 94 94 92 03/14/20 20:06 03/14/20 20:18 03/14/20 20:30 Temperature Pulse Rate 82 79 78 Respiratory Rate 12 18 Blood Pressure 191/88 H 191/88 H Pulse Oximetry 94 93 03/14/20 20:31 03/14/20 21:00 Temperature Pulse Rate 78 73 Respiratory Rate 18 14 Blood Pressure 165/78 H 167/76 H Pulse Oximetry 92 92 <Valerio East, - Last Filed: 03/14/20 22:02> Orders Ordered: Discontinued Medications Aspirin (Aspirin Chew) 324 mg PO NOW ONE Stop: 03/14/20 15:17 Last Admin: 03/14/20 15:38 Dose: 324 mg Documented by: MMINOR Diphenhydramine HCl (Benadryl) 25 mg IV NOW ONE Stop: 03/14/20 17:23 Last Admin: 03/14/20 17:48 Dose: 25 mg Documented by: MMINOR Hydromorphone HCl (Dilaudid) 0.5 mg IV NOW ONE Stop: 03/14/20 17:23 Last Admin: 03/14/20 17:46 Dose: 0.5 mg Documented by: MMINOR Hydromorphone HCl (Dilaudid) 0.5 mg IV NOW ONE Stop: 03/14/20 21:35 Last Admin: 03/14/20 21:42 Dose: 0.5 mg Documented by: STEWART Sodium Chloride (Normal Saline 0.9%) 1,000 mls @ 150 mls/hr IV CONT AFIA Last Infusion: 03/14/20 22:44 Dose: 0 mls/hr Documented by: Admin: 03/14/20 15:40 Dose: 150 mls/hr Documented by: IVAN Methylprednisolone (Solu-Medrol 125 Mg Vial) 125 mg IV NOW ONE Stop: 03/14/20 17:23 Last Admin: 03/14/20 17:49 Dose: 125 mg Documented by: IVAN Nitroglycerin (Nitrostat) 0.4 mg SL NOW ONE Stop: 03/14/20 20:14 Last Admin: 03/14/20 20:18 Dose: 0.4 mg Documented by: STEWART Vital Signs Vital signs: Vital Signs - 8 hr 03/14/20 15:10 03/14/20 15:12 03/14/20 15:15 Temperature 97.6 F Pulse Rate 64 63 63 Respiratory Rate 17 18 13 Blood Pressure 90/52 L 90/52 L Pulse Oximetry 99 97 97 03/14/20 15:30 03/14/20 15:31 03/14/20 16:00 Temperature Pulse Rate 60 60 59 L Respiratory Rate 15 14 12 Blood Pressure 166/72 H Pulse Oximetry 97 97 97 03/14/20 16:01 03/14/20 16:30 03/14/20 16:31 Temperature Pulse Rate 60 61 61 Respiratory Rate 16 10 L 12 Blood Pressure 162/69 H 162/70 H Pulse Oximetry 97 97 97 03/14/20 17:00 03/14/20 17:01 03/14/20 17:30 Temperature Pulse Rate 61 61 64 Respiratory Rate 10 L 16 15 Blood Pressure 164/70 H 177/74 H Pulse Oximetry 97 97 96 03/14/20 18:08 03/14/20 18:30 03/14/20 18:46 Temperature Pulse Rate 81 71 69 Respiratory Rate 10 L 14 Blood Pressure 187/77 H Pulse Oximetry 95 97 98 03/14/20 19:00 03/14/20 19:01 03/14/20 19:30 Temperature Pulse Rate 71 71 74 Respiratory Rate 12 15 11 L Blood Pressure 192/74 H Pulse Oximetry 97 96 93 03/14/20 19:31 03/14/20 20:00 03/14/20 20:01 Temperature Pulse Rate 75 82 83 Respiratory Rate 12 16 13 Blood Pressure 201/79 H Pulse Oximetry 94 94 92 03/14/20 20:06 03/14/20 20:18 03/14/20 20:30 Temperature Pulse Rate 82 79 78 Respiratory Rate 12 18 Blood Pressure 191/88 H 191/88 H Pulse Oximetry 94 93 03/14/20 20:31 03/14/20 21:00 Temperature Pulse Rate 78 73 Respiratory Rate 18 14 Blood Pressure 165/78 H 167/76 H Pulse Oximetry 92 92 MDM - Chest Pain <Zarina Gu DO - Last Filed: 03/15/20 07:51> Lab Data Attestation: I reviewed the patient's lab results. Result diagrams: 03/14/20 15:25 03/14/20 15:25 Labs: Lab Results 03/14/20 03/14/20 03/14/20 Range/Units 15:25 15:25 15:25 WBC 5.9 (4.5-11.0) X10^3/uL RBC 4.71 (4.0-5.2) X10^6/uL Hgb 13.6 (12.0-16.0) g/dL Hct 41.4 (36-46) % MCV 87.9 (80-100) fL MCH 29.0 (26-34) PG MCHC 33.0 (30-36) % RDW 16.1 H (11.6-14.8) % Plt Count 197 (150-400) X10^3/uL Neut % (Auto) 54.2 (50-75) % Lymph % (Auto) 32.6 (25-40) % Edwards % (Auto) 10.2 (3-14) % Eos % (Auto) 2.5 (2-4) % Baso % (Auto) 0.5 (0-2) % Neut # (Auto) 3200 (0000-8946) /uL Lymph # (Auto) 1900 (4113-8130) /uL Edwards # (Auto) 600 (0-900) /uL Eos # (Auto) 100 (0-450) /uL Baso # (Auto) 0 (0-100) /uL PT 12.5 (10.1-12.7) SECONDS INR 1.1 (0.9-1.3) APTT 24 L D (26.4-36.2) SECONDS Sodium 139 (137-145) mmol/L Potassium 3.9 (3.4-5.1) mmol/L Chloride 103 (98-107) mmol/L Carbon Dioxide 28 (22-32) mmol/L BUN 21 H (7-17) mg/dL Creatinine 1.17 H (0.52-1.04) mg/dL Estimated GFR 44.3 L (>60) mL/min BUN/Creatinine Ratio 17.9 (6-22) Glucose 113 H (80-110) mg/dL Calcium 9.2 (8.4-10.2) mg/dL Total Bilirubin 0.4 (0.2-1.3) mg/dL AST 22 (14-36) IU/L ALT 8 (<35) IU/L Alkaline Phosphatase 53 (38-126) U/L Total Creatine Kinase 45 (30-135) U/L CK-MB (CK-2) TNP CK-MB (CK-2) Rel Index TNP Troponin I < 0.012 (0.01-0.034) ng/mL NT-Pro-B Natriuret Pep 486 H (<450) pg/mL Total Protein 7.0 (6.3-8.2) g/dL Albumin 4.1 (3.5-5.0) g/dL Globulin 2.9 (1.7-4.1) g/dL Albumin/Globulin Ratio 1.4 (1.0-2.8) Lipase 124 (23-300) U/L COVID-19 PCR (Negative) 03/14/20 03/14/20 Range/Units 18:31 20:30 WBC (4.5-11.0) X10^3/uL RBC (4.0-5.2) X10^6/uL Hgb (12.0-16.0) g/dL Hct (36-46) % MCV (80-100) fL MCH (26-34) PG MCHC (30-36) % RDW (11.6-14.8) % Plt Count (150-400) X10^3/uL Neut % (Auto) (50-75) % Lymph % (Auto) (25-40) % Edwards % (Auto) (3-14) % Eos % (Auto) (2-4) % Baso % (Auto) (0-2) % Neut # (Auto) (2907-4449) /uL Lymph # (Auto) (5076-7572) /uL Edwards # (Auto) (0-900) /uL Eos # (Auto) (0-450) /uL Baso # (Auto) (0-100) /uL PT (10.1-12.7) SECONDS INR (0.9-1.3) APTT (26.4-36.2) SECONDS Sodium (137-145) mmol/L Potassium (3.4-5.1) mmol/L Chloride (98-107) mmol/L Carbon Dioxide (22-32) mmol/L BUN (7-17) mg/dL Creatinine (0.52-1.04) mg/dL Estimated GFR (>60) mL/min BUN/Creatinine Ratio (6-22) Glucose (80-110) mg/dL Calcium (8.4-10.2) mg/dL Total Bilirubin (0.2-1.3) mg/dL AST (14-36) IU/L ALT (<35) IU/L Alkaline Phosphatase (38-126) U/L Total Creatine Kinase (30-135) U/L CK-MB (CK-2) CK-MB (CK-2) Rel Index Troponin I < 0.012 (0.01-0.034) ng/mL NT-Pro-B Natriuret Pep (<450) pg/mL Total Protein (6.3-8.2) g/dL Albumin (3.5-5.0) g/dL Globulin (1.7-4.1) g/dL Albumin/Globulin Ratio (1.0-2.8) Lipase (23-300) U/L COVID-19 PCR Negative (Negative) Imaging Data Chest x-ray: Radiologist's Impression: PROCEDURE: XR CHEST 1V INDICATIONS: chest pain TECHNIQUE: One view of the chest was acquired. COMPARISON: [facility], , XR CHEST 1V, 12/09/2019, 16:23. FINDINGS: Surgical changes and devices: None. Lungs and pleura: Lungs are clear. No pleural effusions or pneumothorax. Mediastinum: Mediastinal contours appear normal. Heart size is normal. Bones and chest wall: No suspicious bony lesions. Overlying soft tissues appear unremarkable. IMPRESSION: No acute cardiopulmonary disease process. Dictated by: Evelina York MD, PhD on 03/14/2020 at 15:59 CT scan - chest: Radiologist's Impression: [address] [address] [address] Scan Report Signed Patient: Lida Townsend TMR#: [id number] : 8Acct:[id number] Age/Sex: 84 / FDate of Service: 03/14/20 Loc: ED Accession Number: [id number] Procedure: CT chest abd pel wwo con Ordering Provider: Zarina Gu D.O. PROCEDURE: CT ANGIO CHEST ABDOMEN PELVIS INDICATIONS: pain between shoulders, chest, arms TECHNIQUE: Precontrast 5 mm thick sections acquired from the lung apices to the iliac crests. After the administration of intravenous contrast, 2.5 mm thick sections again acquired from the lung apices to the iliac crests. Maximum intensity projection (MIP) oblique sagittal and coronal reformats were then acquired. For radiation dose reduction, the following was used: automated exposure control. COMPARISON: None. FINDINGS: Image quality: Excellent. AORTA: Intramural hematoma: Absent Maximum hematoma thickness: Not applicable. Focal contrast enhancement: Intramural blood pool (< 2 mm neck or imperceptible communication with aortic lumen): Absent. Ulcer-like projection (broad communication with aortic lumen > 3 mm): Absent. Dissection: Absent [place] classification: Not applicable Maximum aortic diameter: 3.5 cm. [If Lee A dissection, > 5.0 cm has a poorer prognosis. If Lee B dissection, > 4.0 cm has a poorer prognosis.] Periaortic hematoma: Absent. CHEST: Lungs and pleura: No acute airspace opacities. Scattered interstitial thickening of the periphery of the lungs bilaterally compatible with pulmonary fibrosis. Bronchiectasis noted in the lung bases bilaterally. No pleural effusions or pneumothorax. Central and peripheral airways are patent and normal in caliber. Mediastinum: Heart is enlarged. Atherosclerotic calcifications are noted in the aorta, great vessels and the coronary vasculature. No pericardial effusion. 1.6 centimeter short axis right hilar lymph node. No mediastinal adenopathy by size criteria. Central pulmonary arteries are normal in size. Esophagus is normal in caliber. Small hiatal hernia. Bones and chest wall: 1.8 x 4.1 centimeter soft tissue density cutaneous/subcutaneous mass noted in the anterior right upper chest wall. No axillary adenopathy by size criteria. No suspicious bony lesions. No vertebral body compression fractures. ABDOMEN: Vasculature: Celiac trunk and mesenteric arteries are patent. Renal arteries are also patent. Solid organs: Liver is normal in size and enhancement. Gallbladder is surgically absent.. Biliary system is non dilated. Pancreas enhances normally. Spleen is normal in size and enhancement. No adrenal nodules. Both kidneys are normal in size and enhancement, without hydronephrosis. Peritoneum and bowel: No free fluid or air. Bowel loops are normal in caliber and wall thickness. Colonic diverticula without evidence of diverticulitis. Nodes and vessels: No retroperitoneal or mesenteric adenopathy by size criteria. Inferior vena cava is normal in morphology. Miscellaneous: No ventral hernias. PELVIS: Genitourinary: Bladder wall thickness is normal. Uterus is absent. Miscellaneous: No inguinal hernias or adenopathy. No ventral hernias. Bones: No suspicious bony lesions. Chronic appearing T7 and T12 compression deformities. Large Schmorl's nodes noted in the superior endplate of the T10 and L2 vertebral bodies. No vertebral body compression fractures. IMPRESSION: 1. No evidence of aortic dissection or aortic aneurysm. 2. No lung consolidation or pleural effusions. 3. Atherosclerosis including dense calcifications involving the coronary vasculature. 4. Cardiomegaly. 5. Small hiatal hernia. 6. 4.1 x 1.8 centimeter soft tissue density cutaneous/subcutaneous mass in the right anterior upper chest wall. Neoplastic process cannot be excluded. Recommend correlation with clinical findings. Seven. 1.6 centimeter right hilar lymphadenopathy which could be reactive or neoplastic. 8. Colonic diverticulosis without evidence of diverticulitis. 9. 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 Dictated by: Evelina York MD, PhD on 03/14/2020 at 18:26 Approved by: Evelina York MD, PhD on 03/14/2020 at 18:35 ECG Data Attestation: I personally reviewed and interpreted this ECG as follows: Prior ECG tracings: available for review Interpretation: 64 p.r. interval 191 QRS [address] previous EKG MDM Narrative Medical decision making narrative: To arrival she has low blood pressure according to old records nitroglycerin does drop her blood pressure. She continues to have pain in both of her arms and her neck. Initial EKG and troponin are negative. However complaining of pain between her shoulder blades will get CTA to rule out any dissection. Blood pressure improves with time. She continues to have some discomfort she is given 0.5 of dilaudid which does seem to help. Patient states pain is worse than it has been previously it is now up in her neck and down her arms and feels pressure in her chest. 2020 Dr. Neal cardiology updated patient's symptoms test results she does need a nuclear stress test. Unavailable at [facility] over the weekend. Recommends admitting to hospital Signed out to Dr. East awaiting the talked to hospitalist at [facility] <Valerio East, DO - Last Filed: 03/14/20 22:02> Lab Data Labs: Lab Results 03/14/20 03/14/20 03/14/20 Range/Units 15:25 15:25 15:25 WBC 5.9 (4.5-11.0) X10^3/uL RBC 4.71 (4.0-5.2) X10^6/uL Hgb 13.6 (12.0-16.0) g/dL Hct 41.4 (36-46) % MCV 87.9 (80-100) fL MCH 29.0 (26-34) PG MCHC 33.0 (30-36) % RDW 16.1 H (11.6-14.8) % Plt Count 197 (150-400) X10^3/uL Neut % (Auto) 54.2 (50-75) % Lymph % (Auto) 32.6 (25-40) % Edwards % (Auto) 10.2 (3-14) % Eos % (Auto) 2.5 (2-4) % Baso % (Auto) 0.5 (0-2) % Neut # (Auto) 3200 (7072-6456) /uL Lymph # (Auto) 1900 (7531-7135) /uL Edwards # (Auto) 600 (0-900) /uL Eos # (Auto) 100 (0-450) /uL Baso # (Auto) 0 (0-100) /uL PT 12.5 (10.1-12.7) SECONDS INR 1.1 (0.9-1.3) APTT 24 L D (26.4-36.2) SECONDS Sodium 139 (137-145) mmol/L Potassium 3.9 (3.4-5.1) mmol/L Chloride 103 (98-107) mmol/L Carbon Dioxide 28 (22-32) mmol/L BUN 21 H (7-17) mg/dL Creatinine 1.17 H (0.52-1.04) mg/dL Estimated GFR 44.3 L (>60) mL/min BUN/Creatinine Ratio 17.9 (6-22) Glucose 113 H (80-110) mg/dL Calcium 9.2 (8.4-10.2) mg/dL Total Bilirubin 0.4 (0.2-1.3) mg/dL AST 22 (14-36) IU/L ALT 8 (<35) IU/L Alkaline Phosphatase 53 (38-126) U/L Total Creatine Kinase 45 (30-135) U/L CK-MB (CK-2) TNP CK-MB (CK-2) Rel Index TNP Troponin I < 0.012 (0.01-0.034) ng/mL NT-Pro-B Natriuret Pep 486 H (<450) pg/mL Total Protein 7.0 (6.3-8.2) g/dL Albumin 4.1 (3.5-5.0) g/dL Globulin 2.9 (1.7-4.1) g/dL Albumin/Globulin Ratio 1.4 (1.0-2.8) Lipase 124 (23-300) U/L COVID-19 PCR (Negative) 03/14/20 03/14/20 Range/Units 18:31 20:30 WBC (4.5-11.0) X10^3/uL RBC (4.0-5.2) X10^6/uL Hgb (12.0-16.0) g/dL Hct (36-46) % MCV (80-100) fL MCH (26-34) PG MCHC (30-36) % RDW (11.6-14.8) % Plt Count (150-400) X10^3/uL Neut % (Auto) (50-75) % Lymph % (Auto) (25-40) % Edwards % (Auto) (3-14) % Eos % (Auto) (2-4) % Baso % (Auto) (0-2) % Neut # (Auto) (0527-3733) /uL Lymph # (Auto) (1247-6705) /uL Edwards # (Auto) (0-900) /uL Eos # (Auto) (0-450) /uL Baso # (Auto) (0-100) /uL PT (10.1-12.7) SECONDS INR (0.9-1.3) APTT (26.4-36.2) SECONDS Sodium (137-145) mmol/L Potassium (3.4-5.1) mmol/L Chloride (98-107) mmol/L Carbon Dioxide (22-32) mmol/L BUN (7-17) mg/dL Creatinine (0.52-1.04) mg/dL Estimated GFR (>60) mL/min BUN/Creatinine Ratio (6-22) Glucose (80-110) mg/dL Calcium (8.4-10.2) mg/dL Total Bilirubin (0.2-1.3) mg/dL AST (14-36) IU/L ALT (<35) IU/L Alkaline Phosphatase (38-126) U/L Total Creatine Kinase (30-135) U/L CK-MB (CK-2) CK-MB (CK-2) Rel Index Troponin I < 0.012 (0.01-0.034) ng/mL NT-Pro-B Natriuret Pep (<450) pg/mL Total Protein (6.3-8.2) g/dL Albumin (3.5-5.0) g/dL Globulin (1.7-4.1) g/dL Albumin/Globulin Ratio (1.0-2.8) Lipase (23-300) U/L COVID-19 PCR Negative (Negative) MDM Narrative Medical decision making narrative: Dr east: Received turned over from day provider to talk to hospitalist at receiving facility. They provider already spoke with Cardiology. Since turned over patient has been stable. I did discuss the case with Dr. Dewitt hospitalist at [facility] who accepts the patient in transfer. I did discuss the transfer the patient. She expressed understanding. Patient is stable. Discharge Plan Departure Patient Disposition: [facility] Clinical Impression: Chest pain Discharge Date/Time: 03/14/20 22:46 Prescriptions: No Action aspirin 81 MG tablet,delayed release (DR/EC) 81 mg PO DAILY Qty: 0 RF: 0 clopidogrel 75 mg tablet 75 mg PO DAILY RF: 0 escitalopram oxalate 5 mg tablet 10 mg PO DAILY RF: 0 cholecalciferol (vitamin D3) [Vitamin D3] 5,000 unit Tablet 5,000 unit PO DAILY RF: 0 methocarbamol 750 mg tablet 750 mg PO TID PRN (Reason: muscle spasm) Qty: 14 RF: 0 Entresto 24-26 mg tablet 1 tab PO BID RF: 0 ranolazine 500 mg tablet extended release 12 hr 500 mg PO BID RF: 0 furosemide 40 mg tablet 40 mg PO DAILY Qty: 30 RF: 0 acetaminophen-codeine 300-30 mg tablet 1 tab PO Q4-6H PRN (Reason: pain) Qty: 15 RF: 0 nitroglycerin 0.4 mg tablet, sublingual 1 tab sublingual [id number] PRN (Reason: Chest Pain) RF: 0 rosuvastatin 40 mg tablet 40 mg PO QPM RF: 0 cyanocobalamin (vitamin B-12) 2,000 mcg Tablet 2,000 mcg PO DAILY RF: 0 potassium chloride 10 mEq capsule, extended release 10 meq PO DAILY RF: 0 metoprolol tartrate 25 mg tablet 25 mg PO BID RF: 0 alprazolam 0.5 mg Tablet 0.5 mg PO TID PRN (Reason: Anxiety) RF: 0 lidocaine 5 % Adhesive Patch,Medicated 1 patch TOPICAL DAILY PRN (Reason: Pain (Scale Score 1-3)) RF: 0 Referrals: Zoe Bass PA-C [Primary Care Provider] -
--- NOTE | 2020-03-14 15:16 | DI.RAD.S_ITS ---
PROCEDURE: XR CHEST 1V INDICATIONS: chest pain TECHNIQUE: One view of the chest was acquired. COMPARISON: [facility], CR, XR CHEST 1V, 12/09/2019, 16:23. FINDINGS: Surgical changes and devices: None. Lungs and pleura: Lungs are clear. No pleural effusions or pneumothorax. Mediastinum: Mediastinal contours appear normal. Heart size is normal. Bones and chest wall: No suspicious bony lesions. Overlying soft tissues appear unremarkable. IMPRESSION: No acute cardiopulmonary disease process. Dictated by: Evelina York MD, PhD on 03/14/2020 at 15:59 Approved by: Evelina York MD, PhD on 03/14/2020 at 16:00
[2020-03-14] MEDS: ASPIRIN 81 MG CHEW TAB 324 MG PO (15:38)
[2020-03-14] MEDS: SODIUM CHLORIDE 0.9% 1,000 ML 150 ML IV (15:40)
[2020-03-14 15:41] LABS: Add Manual Diff / Slide Review NO; Basophils Absolute Auto 0 /uL (0-100); Basophils Percent Auto 0.5 % (0-2); Eosinophils Absolute Auto 100 /uL (0-450); Eosinophils Percent Auto 2.5 % (2-4); Hematocrit 41.4 % (36-46); Hemoglobin 13.6 g/dL (12.0-16.0); Lymphocytes Absolute Auto 1900 /uL (1100-4500); Lymphocytes Percent Auto 32.6 % (25-40); Mean Corpuscular Volume 87.9 fL (80-100); Monocytes Absolute Auto 600 /uL (0-900); Monocytes Percent Auto 10.2 % (3-14); Neutrophils Absolute Auto 3200 /uL (1500-7000); Neutrophils Percent Auto 54.2 % (50-75); Platelet Count 197 X10^3/uL (150-400); Red Blood Cell Count 4.71 X10^6/uL (4.0-5.2); Red Cell Distribution Width 16.1 % (11.6-14.8); White Blood Cell Count 5.9 X10^3/uL (4.5-11.0)
[2020-03-14 15:55] LABS: Alanine Aminotransferase 8 IU/L (<35); Albumin 4.1 g/dL (3.5-5.0); Albumin Globulin Ratio 1.4 (1.0-2.8); Alkaline Phosphatase 53 U/L (38-126); Aspartate Aminotransferase 22 IU/L (14-36); BUN Creatinine Ratio 17.9 (6-22); Bilirubin Total 0.4 mg/dL (0.2-1.3); Blood Urea Nitrogen 21 mg/dL (7-17); Calcium 9.2 mg/dL (8.4-10.2); Carbon Dioxide 28 mmol/L (22-32); Chloride 103 mmol/L (98-107); Creatine Kinase 45 U/L (30-135); Estimated Glomerular Filt Rate 44.3 mL/min (>60); Globulin 2.9 g/dL (1.7-4.1); Glucose 113 mg/dL (80-110); HEMOLYSIS < 15 (0-50); Lipase 124 U/L (23-300); Potassium 3.9 mmol/L (3.4-5.1); Sodium 139 mmol/L (137-145)
[2020-03-14 15:58] LABS: INR 1.1 (0.9-1.3); Prothrombin Time 12.5 SECONDS (10.1-12.7)
[2020-03-14 16:00] LABS: PTT Partial Thromboplastin Tim 24 SECONDS (26.4-36.2)
[2020-03-14 16:04] LABS: NT-proBNP (BNP-Adult 18+) 486 pg/mL (<450)
[2020-03-14 16:24] LABS: Troponin I < 0.012 ng/mL (0.01-0.034)
--- NOTE | 2020-03-14 17:20 | DI.CT.S_ITS ---
PROCEDURE: CT ANGIO CHEST ABDOMEN PELVIS INDICATIONS: pain between shoulders, chest, arms TECHNIQUE: Precontrast 5 mm thick sections acquired from the lung apices to the iliac crests. After the administration of intravenous contrast, 2.5 mm thick sections again acquired from the lung apices to the iliac crests. Maximum intensity projection (MIP) oblique sagittal and coronal reformats were then acquired. For radiation dose reduction, the following was used: automated exposure control. COMPARISON: None. FINDINGS: Image quality: Excellent. AORTA: Intramural hematoma: Absent Maximum hematoma thickness: Not applicable. Focal contrast enhancement: Intramural blood pool (< 2 mm neck or imperceptible communication with aortic lumen): Absent. Ulcer-like projection (broad communication with aortic lumen > 3 mm): Absent. Dissection: Absent Lee classification: Not applicable Maximum aortic diameter: 3.5 cm. [If [place] A dissection, > 5.0 cm has a poorer prognosis. If [place] B dissection, > 4.0 cm has a poorer prognosis.] Periaortic hematoma: Absent. CHEST: Lungs and pleura: No acute airspace opacities. Scattered interstitial thickening of the periphery of the lungs bilaterally compatible with pulmonary fibrosis. Bronchiectasis noted in the lung bases bilaterally. No pleural effusions or pneumothorax. Central and peripheral airways are patent and normal in caliber. Mediastinum: Heart is enlarged. Atherosclerotic calcifications are noted in the aorta, great vessels and the coronary vasculature. No pericardial effusion. 1.6 centimeter short axis right hilar lymph node. No mediastinal adenopathy by size criteria. Central pulmonary arteries are normal in size. Esophagus is normal in caliber. Small hiatal hernia. Bones and chest wall: 1.8 x 4.1 centimeter soft tissue density cutaneous/subcutaneous mass noted in the anterior right upper chest wall. No axillary adenopathy by size criteria. No suspicious bony lesions. No vertebral body compression fractures. ABDOMEN: Vasculature: Celiac trunk and mesenteric arteries are patent. Renal arteries are also patent. Solid organs: Liver is normal in size and enhancement. Gallbladder is surgically absent.. Biliary system is non dilated. Pancreas enhances normally. Spleen is normal in size and enhancement. No adrenal nodules. Both kidneys are normal in size and enhancement, without hydronephrosis. Peritoneum and bowel: No free fluid or air. Bowel loops are normal in caliber and wall thickness. Colonic diverticula without evidence of diverticulitis. Nodes and vessels: No retroperitoneal or mesenteric adenopathy by size criteria. Inferior vena cava is normal in morphology. Miscellaneous: No ventral hernias. PELVIS: Genitourinary: Bladder wall thickness is normal. Uterus is absent. Miscellaneous: No inguinal hernias or adenopathy. No ventral hernias. Bones: No suspicious bony lesions. Chronic appearing T7 and T12 compression deformities. Large Schmorl's nodes noted in the superior endplate of the T10 and L2 vertebral bodies. No vertebral body compression fractures. IMPRESSION: 1. No evidence of aortic dissection or aortic aneurysm. 2. No lung consolidation or pleural effusions. 3. Atherosclerosis including dense calcifications involving the coronary vasculature. 4. Cardiomegaly. 5. Small hiatal hernia. 6. 4.1 x 1.8 centimeter soft tissue density cutaneous/subcutaneous mass in the right anterior upper chest wall. Neoplastic process cannot be excluded. Recommend correlation with clinical findings. Seven. 1.6 centimeter right hilar lymphadenopathy which could be reactive or neoplastic. 8. Colonic diverticulosis without evidence of diverticulitis. 9. 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 Dictated by: Evelina York MD, PhD on 03/14/2020 at 18:26 Approved by: Evelina York MD, PhD on 03/14/2020 at 18:35
[2020-03-14] MEDS: HYDROMORPHONE 0.5 MG INJ IV ×2 (17:46→21:42)
[2020-03-14] MEDS: diphenhydrAMINE 50 MG/ML VIAL 25 MG IV (17:48)
[2020-03-14] MEDS: methylPREDNISolone 125 MG/2 ML VIAL IV (17:49)
[2020-03-14 19:15] LABS: Troponin I < 0.012 ng/mL (0.01-0.034)
[2020-03-14] MEDS: NITROGLYCERIN 0.4 MG SL TAB SL (20:18)
[2020-03-14 20:56] LABS: COVID19 -Nasal RAPID Negative (Negative)
== END 2020-03-14 22:46 | disposition short-term general hospital (02) ==
PROVIDERS: Emergency Provider Emergency Medicine; Family Provider Internal Medicine; PCP Physician Assistant Medical
DX: R07.9 Chest pain, unspecified (principal); I95.9 Hypotension, unspecified; I25.10 Atherosclerotic heart disease of native coronary artery without angina pectoris; Z95.0 Presence of cardiac pacemaker; E78.5 Hyperlipidemia, unspecified; I10 Essential (primary) hypertension
CPT/HCPCS: 36415; 71045; 71270; 74178; 80053; 82550; 83690; 83880; 84484; 85025; 85610; 85730; 87635; 93005; 93010; 96361; 96374; 96375; 96376; 99285; J1170; J1200; J2930; Q9967

== ENCOUNTER 2020-06-26 13:49 | Emergency (ER) | payer MEDICARE, OTHER, SELFPAY ==
[2020-02-09 00:42] VITALS: BMI 34.0
[2020-06-26] VITALS (23 sets, daily range): BP systolic 127–235; BP diastolic 60–83; PULSE 61–67; RESP 11–28; TEMP 36.6; O2SAT 91–97; BMI 37.7
--- NOTE | 2020-06-26 13:50 | DI.RAD.S_ITS ---
PROCEDURE: XR CHEST 1V INDICATIONS: chest pain TECHNIQUE: One view of the chest was acquired. COMPARISON: [facility], CR, XR CHEST 1V, 03/14/2020, 15:39. [facility], CR, XR CHEST 1V, 12/09/2019, 16:23. FINDINGS: Surgical changes and devices: None. Lungs and pleura: Lungs are clear. No pleural effusions or pneumothorax. Mediastinum: Mediastinal contours appear normal. Heart size is normal. Bones and chest wall: No suspicious bony lesions. Overlying soft tissues appear unremarkable. IMPRESSION: Normal for age, source of current chest pain symptoms is not seen. Dictated by: Lino Ruiz M.D. on 06/26/2020 at 14:29 Approved by: Lino Ruiz M.D. on 06/26/2020 at 14:29
--- NOTE | 2020-06-26 13:56 | ED_ITS ---
HPI - Chest Pain <Ankur Nunez - Last Filed: 06/27/20 07:15> General Chief Complaint: Chest Pain Stated Complaint: Sent by jordan [facility] e[facility] Time Seen by Provider: 06/26/20 13:50 Source: patient and family Mode of arrival: Wheelchair Limitations: no limitations History of Present Illness HPI narrative: 84 nonsmoker with extensive cardiac history including stents x6 presents with the chief complaint of chest pain which radiates into both arms for the past 3 days. She doesn't know what she was doing when it started. She states it get worse with exertion. She has associated SOB, but denies other symptoms. Her last heart cath was April 2019 and last stress test was in February. She denies any medication or diet change. She was seen at her PCP prior to arrival and sent here due to new non-specific T wave changes. She has not taken any nitro. She denies fever, chills, N/V, dizziness, weakness, or lightheadedness. MD complaint: chest pain Onset (ago): day(s) Duration: constant Pain location: substernal Severity: moderate Quality: aching Pain radiation: RUE and LUE Relieving factors: nothing Exacerbating factors: exertion Associated symptoms: dyspnea Treatments prior to arrival chest pain: none Related Data On Oral Contraceptives: No Home Medications Medication Instructions Recorded Confirmed aspirin 81 mg PO DAILY #0 05/14/17 02/09/20 cyanocobalamin (vitamin B-12) 2,000 mcg PO DAILY 11/18/18 02/09/20 nitroglycerin 1 tab SUBLINGUAL [id number] PRN 11/18/18 02/09/20 rosuvastatin 40 mg PO QPM 11/18/18 02/09/20 metoprolol tartrate 25 mg PO BID 01/23/19 02/09/20 potassium chloride 10 meq PO DAILY 01/23/19 02/09/20 cholecalciferol (vitamin D3) 5,000 unit PO DAILY 05/03/19 02/09/20 [Vitamin D3] clopidogrel 75 mg PO DAILY 05/03/19 02/09/20 escitalopram oxalate 10 mg PO DAILY 05/03/19 02/09/20 alprazolam 0.5 mg PO TID PRN 06/01/19 02/09/20 lidocaine 1 patch TOPICAL DAILY PRN 06/01/19 02/09/20 Entresto 1 tab PO BID 02/09/20 02/09/20 ranolazine 500 mg PO BID 02/09/20 02/09/20 Previous Rx's Medication Instructions Recorded methocarbamol 750 mg PO TID PRN #14 tab 11/18/19 acetaminophen-codeine 1 tab PO Q4-6H PRN #15 tab 02/09/20 furosemide 40 mg PO DAILY #30 tab 02/09/20 Allergies Allergy/AdvReac Type Severity Reaction Status Date / Time erythromycin base Allergy Severe Rash Verified 06/26/20 13:57 [ERYTHROMYCIN BASE] ibuprofen [IBUPROFEN] Allergy Severe Rash Verified 06/26/20 13:57 Iodinated Contrast Media Allergy Severe Unconscious Verified 06/26/20 13:57 [IODINATED CONTRAST- ORAL AND IV DYE] morphine [MORPHINE] Allergy Severe Rash Verified 06/26/20 13:57 naproxen [From ALEVE] Allergy Severe Rash Verified 06/26/20 13:57 telmisartan [TELMISARTAN] Allergy Severe Rash Verified 06/26/20 13:57 Review of Systems <Ankur Nunez, - Last Filed: 06/27/20 07:15> Constitutional Constitutional: Denies chills, Denies fatigue, Denies fever(s), Denies frequent falls, Denies lethargy and Denies weakness Eyes Eyes: Denies change in vision, Denies eye discharge, Denies irritation and Denies loss of vision ENT Ears, Nose, Mouth, and Throat: Denies change in voice, Denies dizziness, Denies neck pain, Denies sore throat and Denies throat swelling Cardiovascular Cardiovascular: Reports chest pain, Denies irregular heart rhythm, Denies lightheadedness, Denies palpitations, Reports dyspnea, Reports dyspnea on exertion and Denies orthopnea Respiratory Respiratory: Denies cough, Reports dyspnea, Reports dyspnea on exertion and Denies wheezing Gastrointestinal Gastrointestinal: Denies abdominal pain, Denies change in bowel habits, Denies diarrhea, Denies nausea and Denies vomiting Musculoskeletal Musculoskeletal: Denies neck pain and Denies numbness Integumentary/Breasts Skin/Breast: Denies pruritus, Denies erythema, Denies rash and Denies wounds Neurologic Neurologic: Denies behavioral changes, Denies confusion, Denies dizziness, Denies frequent falls, Denies loss of vision, Denies numbness and Denies weakness Psychiatric Psychiatric: Denies anxiety, Denies behavioral changes, Denies confusion, Denies depression, Denies homicidal ideation and Denies suicidal ideation Endocrine Endocrine: Denies fatigue, Denies flushing and Denies palpitations Hematologic/Lymphatic Hematologic/Lymphatic: Denies easy bruising Allergic/Immunologic Allergic/Immunologic: Denies urticaria, Denies throat swelling and Denies w heezing Patient History <Ankur Nunez DO - Last Filed: 06/27/20 07:15> Medical History (Updated 06/26/20 @ 20:13 by Bhumi Addison MD) Cardiac arrest Chest pain Coronary artery disease Diastolic heart failure Hyperlipidemia Hypertension Left hamstring muscle strain NSTEMI (non-ST elevated myocardial infarction) Skin cancer UTI (urinary tract infection) Surgical History H/O right heart catheterization History of appendectomy History of breast implant removal History of breast surgery History of cholecystectomy History of coronary artery stent placement History of total abdominal hysterectomy Family History Father Hypertension Diabetes mellitus Mother Hypertension [place] (myocardial infarction) Sister [place] (myocardial infarction) S/P CABG x 4 Social History household members: children Smoking Status: Never smoker Smoking Status: Never smoker alcohol intake frequency: holidays/special occasions only Substance Use Type: does not use Exam <Ankur Nunez DO - Last Filed: 06/27/20 07:15> Narrative Exam Narrative: GENERAL: [84] year old patient appears stated age. Well- nourished, well-developed patient, in mild distress. Appears fatigued with exertion, visibly in pain HEAD: Atraumatic. Normocephalic. EYES: Pupils equal round and reactive. Extraocular motions intact. No scleral icterus. No injection or drainage. ENT: Nose without bleeding, purulent drainage. Throat without erythema, tonsillar hypertrophy or exudate. Airway patent. NECK: Trachea midline. Non tender CARDIOVASCULAR: Regular rate and rhythm without murmurs, gallops, or rubs. RESPIRATORY: Clear to auscultation. Breath sounds equal bilaterally. No wheezes, rales, or rhonchi. GASTROINTESTINAL: Abdomen soft, non-tender, nondistended. EXTREMITIES: No edema or joint tenderness. BACK: Nontender without deformity or crepitance. No flank tenderness. NEURO: AOx3. SKIN: No rash or erythema of visible areas Initial Vital Signs Initial Vital Signs: Vital Signs Respiratory Rate 24 06/26/20 13:54 Blood Pressure 127/60 06/26/20 13:54 <Bhumi Addison MD - Last Filed: 06/26/20 20:52> Initial Vital Signs Initial Vital Signs: Vital Signs Respiratory Rate 24 06/26/20 13:54 Blood Pressure 127/60 06/26/20 13:54 Course <Ankur Nunez DO - Last Filed: 06/27/20 07:15> Orders Ordered: Discontinued Medications Heparin Sodium (Porcine) (Heparin 5,000 Unit/Ml Vial) 5,000 unit IV NOW ONE Stop: 06/26/20 17:12 Last Admin: 06/26/20 17:51 Dose: 5,000 unit Documented by: SANJAYANCE Hydromorphone HCl (Hydromorphone 0.5 Mg Inj) 0.5 mg IV NOW ONE Stop: 06/26/20 16:28 Last Admin: 06/26/20 16:38 Dose: 0.5 mg Documented by: CVANCE Hydromorphone HCl (Hydromorphone 0.5 Mg Inj) 0.5 mg IV NOW ONE Stop: 06/26/20 21:11 Last Admin: 06/26/20 21:16 Dose: 0.5 mg Documented by: SHELBY Potassium Chloride 40 meq/ (Sodium Chloride) 520 mls @ 130 mls/hr IV NOW ONE Stop: 06/26/20 19:16 Last Infusion: 06/26/20 20:26 Dose: 0 mls/hr Documented by: CVANCE Cosigned by: BRIAN Admin: 06/26/20 16:09 Dose: 130 mls/hr Documented by: CVANCE Cosigned by: LENNY Heparin Sodium/Dextrose (Heparin Drip) 25,000 unit in 500 mls @ 23.188 mls/hr IV CONT AFIA; Protocol Last Titration: 06/26/20 21:17 Dose: 0 units/kg/hr, 0 mls/hr Documented by: Admin: 06/26/20 17:52 Dose: 12 units/kg/hr, 23.188 mls/hr Documented by: CVANCE Nitroglycerin (Nitroglycerin 0.4 Mg Sl Tab) 0.4 mg SL NOW ONE Stop: 06/26/20 15:04 Last Admin: 06/26/20 15:10 Dose: 0.4 mg Documented by: CVANCE Nitroglycerin (Nitroglycerin 0.4 Mg Sl Tab) 0.4 mg SL NOW ONE Stop: 06/26/20 15:36 Last Admin: 06/26/20 15:48 Dose: 0.4 mg Documented by: CVANCE Reevaluation(s) Reevaluation #1: pain down to 2/10 (from 7) after 2 NG. BP dropping. dilaudid added, which helped her extremity pain. Her chest pain now at zero as well Consultations Consultation #1: discussed with patient's own it desktop support specialist Dr. Ellington who recommends heparin, transfer for trending of enzymes, echo and stress test. Consultation #2: [facility] hospitalist paged. Time: 17:26 Vital Signs Vital signs: Vital Signs - 8 hr 06/26/20 13:54 06/26/20 13:55 06/26/20 13:57 Temperature 97.8 F Pulse Rate 66 66 Respiratory Rate 24 22 20 Blood Pressure 127/60 178/83 H 178/83 H Pulse Oximetry 93 93 06/26/20 14:00 06/26/20 14:30 06/26/20 15:00 Temperature Pulse Rate 67 62 63 Respiratory Rate 24 26 H 12 Blood Pressure 161/74 H Pulse Oximetry 97 94 97 06/26/20 15:10 06/26/20 15:12 06/26/20 15:30 Temperature Pulse Rate 65 64 63 Respiratory Rate 23 28 H 14 Blood Pressure 135/64 150/66 H 135/65 Pulse Oximetry 92 94 91 06/26/20 15:48 06/26/20 15:57 06/26/20 16:00 Temperature Pulse Rate 65 66 66 Respiratory Rate 20 11 L Blood Pressure 135/68 235/65 H Pulse Oximetry 92 92 06/26/20 16:30 06/26/20 16:42 06/26/20 17:00 Temperature Pulse Rate 66 66 63 Respiratory Rate Blood Pressure 143/65 H 134/62 Pulse Oximetry 95 95 95 06/26/20 17:30 06/26/20 18:00 06/26/20 18:30 Temperature Pulse Rate 61 64 67 Respiratory Rate Blood Pressure 127/60 138/66 135/64 Pulse Oximetry 95 93 92 06/26/20 19:00 06/26/20 19:29 06/26/20 19:30 Temperature Pulse Rate 63 64 64 Respiratory Rate 15 Blood Pressure 145/65 H 140/66 140/66 Pulse Oximetry 92 94 93 06/26/20 20:00 Temperature Pulse Rate 64 Respiratory Rate Blood Pressure 134/64 Pulse Oximetry 92 <Bhumi Addison MD - Last Filed: 06/26/20 20:52> Course Course Narrative: 84-year-old woman with recurrent chest pain today with 3 days of increasing anginal pain and eventually ending with central chest pain radiating to both arms resolved with nitroglycerin and a small dose of Dilaudid. Consultation with Dr. Ellington, her it desktop support specialist. She recommended heparin and transfer to [facility]. Care is reviewed with Dr. Gonsalves, who accepts the patient. Transport is arranged. She remains stable on heparin and pain- free at time of transfer. Orders Ordered: Discontinued Medications Heparin Sodium (Porcine) (Heparin 5,000 Unit/Ml Vial) 5,000 unit IV NOW ONE Stop: 06/26/20 17:12 Last Admin: 06/26/20 17:51 Dose: 5,000 unit Documented by: SHELBY Hydromorphone HCl (Hydromorphone 0.5 Mg Inj) 0.5 mg IV NOW ONE Stop: 06/26/20 16:28 Last Admin: 06/26/20 16:38 Dose: 0.5 mg Documented by: SANJAYANCE Hydromorphone HCl (Hydromorphone 0.5 Mg Inj) 0.5 mg IV NOW ONE Stop: 06/26/20 21:11 Last Admin: 06/26/20 21:16 Dose: 0.5 mg Documented by: SANJAYANCE Potassium Chloride 40 meq/ (Sodium Chloride) 520 mls @ 130 mls/hr IV NOW ONE Stop: 06/26/20 19:16 Last Infusion: 06/26/20 20:26 Dose: 0 mls/hr Documented by: CVEVARISTO Cosigned by: BRIAN Admin: 06/26/20 16:09 Dose: 130 mls/hr Documented by: SHELBY Cosigned by: LENNY Heparin Sodium/Dextrose (Heparin Drip) 25,000 unit in 500 mls @ 23.188 mls/hr IV CONT AFIA; Protocol Last Titration: 06/26/20 21:17 Dose: 0 units/kg/hr, 0 mls/hr Documented by: Admin: 06/26/20 17:52 Dose: 12 units/kg/hr, 23.188 mls/hr Documented by: CVANCE Nitroglycerin (Nitroglycerin 0.4 Mg Sl Tab) 0.4 mg SL NOW ONE Stop: 06/26/20 15:04 Last Admin: 06/26/20 15:10 Dose: 0.4 mg Documented by: CVANCE Nitroglycerin (Nitroglycerin 0.4 Mg Sl Tab) 0.4 mg SL NOW ONE Stop: 06/26/20 15:36 Last Admin: 06/26/20 15:48 Dose: 0.4 mg Documented by: CVANCE Vital Signs Vital signs: Vital Signs - 8 hr 06/26/20 13:54 06/26/20 13:55 06/26/20 13:57 Temperature 97.8 F Pulse Rate 66 66 Respiratory Rate 24 22 20 Blood Pressure 127/60 178/83 H 178/83 H Pulse Oximetry 93 93 06/26/20 14:00 06/26/20 14:30 06/26/20 15:00 Temperature Pulse Rate 67 62 63 Respiratory Rate 24 26 H 12 Blood Pressure 161/74 H Pulse Oximetry 97 94 97 06/26/20 15:10 06/26/20 15:12 06/26/20 15:30 Temperature Pulse Rate 65 64 63 Respiratory Rate 23 28 H 14 Blood Pressure 135/64 150/66 H 135/65 Pulse Oximetry 92 94 91 06/26/20 15:48 06/26/20 15:57 06/26/20 16:00 Temperature Pulse Rate 65 66 66 Respiratory Rate 20 11 L Blood Pressure 135/68 235/65 H Pulse Oximetry 92 92 06/26/20 16:30 06/26/20 16:42 06/26/20 17:00 Temperature Pulse Rate 66 66 63 Respiratory Rate Blood Pressure 143/65 H 134/62 Pulse Oximetry 95 95 95 06/26/20 17:30 06/26/20 18:00 06/26/20 18:30 Temperature Pulse Rate 61 64 67 Respiratory Rate Blood Pressure 127/60 138/66 135/64 Pulse Oximetry 95 93 92 06/26/20 19:00 06/26/20 19:29 06/26/20 19:30 Temperature Pulse Rate 63 64 64 Respiratory Rate 15 Blood Pressure 145/65 H 140/66 140/66 Pulse Oximetry 92 94 93 06/26/20 20:00 Temperature Pulse Rate 64 Respiratory Rate Blood Pressure 134/64 Pulse Oximetry 92 MDM - Chest Pain <Ankur Nunez DO - Last Filed: 06/27/20 07:15> Lab Data Result diagrams: 06/26/20 14:30 06/26/20 14:30 Labs: Lab Results 06/26/20 06/26/20 06/26/20 Range/Units 14:30 14:30 14:30 WBC 8.0 (4.5-11.0) X10^3/uL RBC 4.81 (4.0-5.2) X10^6/uL Hgb 13.7 (12.0-16.0) g/dL Hct 40.7 (36-46) % MCV 84.7 (80-100) fL MCH 28.5 (26-34) PG MCHC 33.7 (30-36) % RDW 15.8 H (11.6-14.8) % Plt Count 257 (150-400) X10^3/uL Neut % (Auto) 59.0 (50-75) % Lymph % (Auto) 28.7 (25-40) % [place] % (Auto) 9.6 (3-14) % Eos % (Auto) 2.2 (2-4) % Baso % (Auto) 0.5 (0-2) % Neut # (Auto) 4700 (1971-5102) /uL Lymph # (Auto) 2300 (9093-2064) /uL [place] # (Auto) 800 (0-900) /uL Eos # (Auto) 200 (0-450) /uL Baso # (Auto) 0 (0-100) /uL PT 12.9 H (10.1-12.7) SECONDS INR 1.1 (0.9-1.3) APTT 30 D (26.4-36.2) SECONDS Sodium 136 L (137-145) mmol/L Potassium 2.9 L (3.4-5.1) mmol/L Chloride 96 L (98-107) mmol/L Carbon Dioxide 36 H (22-32) mmol/L BUN 17 (7-17) mg/dL Creatinine 1.13 H (0.52-1.04) mg/dL Estimated GFR 46.1 L (>60) mL/min BUN/Creatinine Ratio 15.0 (6-22) Glucose 117 H (80-110) mg/dL Calcium 9.4 (8.4-10.2) mg/dL Magnesium (1.6-2.3) mg/dL Total Bilirubin 0.4 (0.2-1.3) mg/dL AST 25 (14-36) IU/L ALT 8 (<35) IU/L Alkaline Phosphatase 63 (38-126) U/L Total Creatine Kinase 42 (30-135) U/L CK-MB (CK-2) TNP CK-MB (CK-2) Rel Index TNP Troponin I 0.012 (0.01-0.034) ng/mL NT-Pro-B Natriuret Pep (<450) pg/mL Total Protein 7.6 (6.3-8.2) g/dL Albumin 4.4 (3.5-5.0) g/dL Globulin 3.2 (1.7-4.1) g/dL Albumin/Globulin Ratio 1.4 (1.0-2.8) Lipase 104 (23-300) U/L SARS-CoV-2 (PCR) (Negative) 06/26/20 06/26/20 Range/Units 14:30 15:51 WBC (4.5-11.0) X10^3/uL RBC (4.0-5.2) X10^6/uL Hgb (12.0-16.0) g/dL Hct (36-46) % MCV (80-100) fL MCH (26-34) PG MCHC (30-36) % RDW (11.6-14.8) % Plt Count (150-400) X10^3/uL Neut % (Auto) (50-75) % Lymph % (Auto) (25-40) % [place] % (Auto) (3-14) % Eos % (Auto) (2-4) % Baso % (Auto) (0-2) % Neut # (Auto) (0204-4217) /uL Lymph # (Auto) (4479-8880) /uL [place] # (Auto) (0-900) /uL Eos # (Auto) (0-450) /uL Baso # (Auto) (0-100) /uL PT (10.1-12.7) SECONDS INR (0.9-1.3) APTT (26.4-36.2) SECONDS Sodium (137-145) mmol/L Potassium (3.4-5.1) mmol/L Chloride (98-107) mmol/L Carbon Dioxide (22-32) mmol/L BUN (7-17) mg/dL Creatinine (0.52-1.04) mg/dL Estimated GFR (>60) mL/min BUN/Creatinine Ratio (6-22) Glucose (80-110) mg/dL Calcium (8.4-10.2) mg/dL Magnesium 1.8 (1.6-2.3) mg/dL Total Bilirubin (0.2-1.3) mg/dL AST (14-36) IU/L ALT (<35) IU/L Alkaline Phosphatase (38-126) U/L Total Creatine Kinase (30-135) U/L CK-MB (CK-2) CK-MB (CK-2) Rel Index Troponin I (0.01-0.034) ng/mL NT-Pro-B Natriuret Pep 441 (<450) pg/mL Total Protein (6.3-8.2) g/dL Albumin (3.5-5.0) g/dL Globulin (1.7-4.1) g/dL Albumin/Globulin Ratio (1.0-2.8) Lipase (23-300) U/L SARS-CoV-2 (PCR) Negative (Negative) ECG Data Attestation: I personally reviewed and interpreted this ECG as follows: Prior ECG tracings: available for review Interpretation: EKG #1: NSR rate 67. No ST Segmental elevation or depression. No obvious hyperacute T waves or T wave inversions. No ectopy. Very similar to prior EKGs. [facility] Narrative Medical decision making narrative: 84F with extensive cardiac history presents with exertional chest pain / dyspnea, concerning for cardiac event. Despite non- occlusive EKG and negative troponin her it desktop support specialist and I agree that she will require heparin, trending of enzymes, and transfer to cardiac facility given her need for provocative testing. <Bhumi Addison MD - Last Filed: 06/26/20 20:52> Lab Data Labs: Lab Results 06/26/20 06/26/20 06/26/20 Range/Units 14:30 14:30 14:30 WBC 8.0 (4.5-11.0) X10^3/uL RBC 4.81 (4.0-5.2) X10^6/uL Hgb 13.7 (12.0-16.0) g/dL Hct 40.7 (36-46) % MCV 84.7 (80-100) fL MCH 28.5 (26-34) PG MCHC 33.7 (30-36) % RDW 15.8 H (11.6-14.8) % Plt Count 257 (150-400) X10^3/uL Neut % (Auto) 59.0 (50-75) % Lymph % (Auto) 28.7 (25-40) % [place] % (Auto) 9.6 (3-14) % Eos % (Auto) 2.2 (2-4) % Baso % (Auto) 0.5 (0-2) % Neut # (Auto) 4700 (8364-5919) /uL Lymph # (Auto) 2300 (7465-3550) /uL [place] # (Auto) 800 (0-900) /uL Eos # (Auto) 200 (0-450) /uL Baso # (Auto) 0 (0-100) /uL PT 12.9 H (10.1-12.7) SECONDS INR 1.1 (0.9-1.3) APTT 30 D (26.4-36.2) SECONDS Sodium 136 L (137-145) mmol/L Potassium 2.9 L (3.4-5.1) mmol/L Chloride 96 L (98-107) mmol/L Carbon Dioxide 36 H (22-32) mmol/L BUN 17 (7-17) mg/dL Creatinine 1.13 H (0.52-1.04) mg/dL Estimated GFR 46.1 L (>60) mL/min BUN/Creatinine Ratio 15.0 (6-22) Glucose 117 H (80-110) mg/dL Calcium 9.4 (8.4-10.2) mg/dL Magnesium (1.6-2.3) mg/dL Total Bilirubin 0.4 (0.2-1.3) mg/dL AST 25 (14-36) IU/L ALT 8 (<35) IU/L Alkaline Phosphatase 63 (38-126) U/L Total Creatine Kinase 42 (30-135) U/L CK-MB (CK-2) TNP CK-MB (CK-2) Rel Index TNP Troponin I 0.012 (0.01-0.034) ng/mL NT-Pro-B Natriuret Pep (<450) pg/mL Total Protein 7.6 (6.3-8.2) g/dL Albumin 4.4 (3.5-5.0) g/dL Globulin 3.2 (1.7-4.1) g/dL Albumin/Globulin Ratio 1.4 (1.0-2.8) Lipase 104 (23-300) U/L SARS-CoV-2 (PCR) (Negative) 06/26/20 06/26/20 Range/Units 14:30 15:51 WBC (4.5-11.0) X10^3/uL RBC (4.0-5.2) X10^6/uL Hgb (12.0-16.0) g/dL Hct (36-46) % MCV (80-100) fL MCH (26-34) PG MCHC (30-36) % RDW (11.6-14.8) % Plt Count (150-400) X10^3/uL Neut % (Auto) (50-75) % Lymph % (Auto) (25-40) % [place] % (Auto) (3-14) % Eos % (Auto) (2-4) % Baso % (Auto) (0-2) % Neut # (Auto) (6786-9191) /uL Lymph # (Auto) (6393-3450) /uL [place] # (Auto) (0-900) /uL Eos # (Auto) (0-450) /uL Baso # (Auto) (0-100) /uL PT (10.1-12.7) SECONDS INR (0.9-1.3) APTT (26.4-36.2) SECONDS Sodium (137-145) mmol/L Potassium (3.4-5.1) mmol/L Chloride (98-107) mmol/L Carbon Dioxide (22-32) mmol/L BUN (7-17) mg/dL Creatinine (0.52-1.04) mg/dL Estimated GFR (>60) mL/min BUN/Creatinine Ratio (6-22) Glucose (80-110) mg/dL Calcium (8.4-10.2) mg/dL Magnesium 1.8 (1.6-2.3) mg/dL Total Bilirubin (0.2-1.3) mg/dL AST (14-36) IU/L ALT (<35) IU/L Alkaline Phosphatase (38-126) U/L Total Creatine Kinase (30-135) U/L CK-MB (CK-2) CK-MB (CK-2) Rel Index Troponin I (0.01-0.034) ng/mL NT-Pro-B Natriuret Pep 441 (<450) pg/mL Total Protein (6.3-8.2) g/dL Albumin (3.5-5.0) g/dL Globulin (1.7-4.1) g/dL Albumin/Globulin Ratio (1.0-2.8) Lipase (23-300) U/L SARS-CoV-2 (PCR) Negative (Negative) Critical Care Time <Ankur Nunez DO - Last Filed: 06/27/20 07:15> Critical Care Time Critical Care Time: Yes Total Critical Care Time: 30 Attestation: The high probability of a clinically significant, sudden or life threatening deterioration of the [CV] system(s) required my full and direct attention, intervention and personal management. The aggregate critical care time was [30] minutes. This time is in addition to time spent performing reported procedures but includes the following: [x] Data Review and interpretation [x] Patient assessment and monitoring of vital signs [x] Documentation [x] Medication orders and management Discharge Plan Departure Patient Disposition: [facility] Clinical Impression: Chest pain Qualifiers: Chest pain type: chest pain due to myocardial ischemia Ischemic chest pain type: unspecified angina pectoris type Qualified Code(s): I25.9 - Chronic ischemic heart disease, unspecified Prescriptions: No Action aspirin 81 MG tablet,delayed release (DR/EC) 81 mg PO DAILY Qty: 0 RF: 0 clopidogrel 75 mg tablet 75 mg PO DAILY RF: 0 escitalopram oxalate 5 mg tablet 10 mg PO DAILY RF: 0 cholecalciferol (vitamin D3) [Vitamin D3] 5,000 unit Tablet 5,000 unit PO DAILY RF: 0 methocarbamol 750 mg tablet 750 mg PO TID PRN (Reason: muscle spasm) Qty: 14 RF: 0 Entresto 24-26 mg tablet 1 tab PO BID RF: 0 ranolazine 500 mg tablet extended release 12 hr 500 mg PO BID RF: 0 furosemide 40 mg tablet 40 mg PO DAILY Qty: 30 RF: 0 acetaminophen-codeine 300-30 mg tablet 1 tab PO Q4-6H PRN (Reason: pain) Qty: 15 RF: 0 nitroglycerin 0.4 mg tablet, sublingual 1 tab sublingual [id number] PRN (Reason: Chest Pain) RF: 0 rosuvastatin 40 mg tablet 40 mg PO QPM RF: 0 cyanocobalamin (vitamin B-12) 2,000 mcg Tablet 2,000 mcg PO DAILY RF: 0 potassium chloride 10 mEq capsule, extended release 10 meq PO DAILY RF: 0 metoprolol tartrate 25 mg tablet 25 mg PO BID RF: 0 alprazolam 0.5 mg Tablet 0.5 mg PO TID PRN (Reason: Anxiety) RF: 0 lidocaine 5 % Adhesive Patch,Medicated 1 patch TOPICAL DAILY PRN (Reason: Pain (Scale Score 1-3)) RF: 0 Referrals: Zoe Bass PA-C [Primary Care Provider] -
[2020-06-26 14:40] LABS: Add Manual Diff / Slide Review NO; Basophils Absolute Auto 0 /uL (0-100); Basophils Percent Auto 0.5 % (0-2); Eosinophils Absolute Auto 200 /uL (0-450); Eosinophils Percent Auto 2.2 % (2-4); Hematocrit 40.7 % (36-46); Hemoglobin 13.7 g/dL (12.0-16.0); Lymphocytes Absolute Auto 2300 /uL (1100-4500); Lymphocytes Percent Auto 28.7 % (25-40); Mean Corpuscular HGB Conc 33.7 % (30-36); Mean Corpuscular Hemoglobin 28.5 PG (26-34); Mean Corpuscular Volume 84.7 fL (80-100); Monocytes Absolute Auto 800 /uL (0-900); Monocytes Percent Auto 9.6 % (3-14); Neutrophils Absolute Auto 4700 /uL (1500-7000); Platelet Count 257 X10^3/uL (150-400); Red Blood Cell Count 4.81 X10^6/uL (4.0-5.2); Red Cell Distribution Width 15.8 % (11.6-14.8)
[2020-06-26 14:47] LABS: INR 1.1 (0.9-1.3); Prothrombin Time 12.9 SECONDS (10.1-12.7)
[2020-06-26 14:49] LABS: PTT Partial Thromboplastin Tim 30 SECONDS (26.4-36.2)
[2020-06-26 14:51] LABS: Alanine Aminotransferase 8 IU/L (<35); Albumin 4.4 g/dL (3.5-5.0); Albumin Globulin Ratio 1.4 (1.0-2.8); Alkaline Phosphatase 63 U/L (38-126); Aspartate Aminotransferase 25 IU/L (14-36); Bilirubin Total 0.4 mg/dL (0.2-1.3); Blood Urea Nitrogen 17 mg/dL (7-17); Calcium 9.4 mg/dL (8.4-10.2); Carbon Dioxide 36 mmol/L (22-32); Chloride 96 mmol/L (98-107); Creatine Kinase 42 U/L (30-135); Estimated Glomerular Filt Rate 46.1 mL/min (>60); Globulin 3.2 g/dL (1.7-4.1); Glucose 117 mg/dL (80-110); HEMOLYSIS < 15 (0-50); Lipase 104 U/L (23-300); Potassium 2.9 mmol/L (3.4-5.1); Sodium 136 mmol/L (137-145); Total Protein 7.6 g/dL (6.3-8.2)
[2020-06-26 15:02] LABS: Troponin I 0.012 ng/mL (0.01-0.034)
[2020-06-26 15:08] LABS: Magnesium 1.8 mg/dL (1.6-2.3)
[2020-06-26] MEDS: NITROGLYCERIN 0.4 MG SL TAB SL ×2 (15:10→15:48)
[2020-06-26 15:17] LABS: NT-proBNP (BNP-Adult 18+) 441 pg/mL (<450)
[2020-06-26] MEDS: POTASSIUM CHLORIDE 40 MEQ in SODIUM CHLORIDE 0.9% 500 ML 130 ML IV (16:09)
[2020-06-26 16:17] LABS: COVID19 -Nasal RAPID Negative (Negative)
[2020-06-26] MEDS: HYDROMORPHONE 0.5 MG INJ IV ×2 (16:38→21:16)
[2020-06-26] MEDS: HEPARIN 5,000 UNIT/ML VIAL 5000 UNIT IV (17:51)
[2020-06-26] MEDS: HEPARIN DRIP 25,000 UNIT/500 ML IV.SOLN 23.188 UNIT IV (17:52)
--- NOTE | 2020-06-26 18:08 | PC.NURSE ---
Verified heparin dosing and admin with Hannah FREDERICK
--- NOTE | 2020-06-26 20:38 | PC.NURSE ---
Report given to Thuy Denise RN at [facility]. Transport to arrive at 2100
--- NOTE | 2020-06-26 21:18 | PC.NURSE ---
Heparin drip was stopped on our record per protocol but patient was transferred to [facility] for higher level of care with the heparin gtt running
== END 2020-06-26 21:25 | disposition short-term general hospital (02) ==
PROVIDERS: Emergency Provider Emergency Medicine; Family Provider Internal Medicine; PCP Physician Assistant Medical
DX: I25.9 Chronic ischemic heart disease, unspecified (principal); R06.02 Shortness of breath; Z79.82 Long term (current) use of aspirin; I25.10 Atherosclerotic heart disease of native coronary artery without angina pectoris; E78.5 Hyperlipidemia, unspecified; I10 Essential (primary) hypertension; Z20.822 Contact with and (suspected) exposure to COVID-19
CPT/HCPCS: 36415; 71045; 80053; 82550; 83690; 83735; 83880; 84484; 85025; 85610; 85730; 87635; 93005; 93010; 96361; 96365; 96366; 96375; 96376; 99283; 99291; C9803; J1170; J1644; J3480

== ENCOUNTER 2021-01-14 19:19 | Emergency (ER) | payer MEDICARE, OTHER, SELFPAY ==
[2020-02-09 00:42] VITALS: BMI 34.0
[2021-01-14] VITALS (12 sets, daily range): BP systolic 128–178; BP diastolic 61–79; PULSE 59–68; RESP 10–22; TEMP 36.5; O2SAT 93–97; BMI 34.7
--- NOTE | 2021-01-14 19:38 | DI.CT.S_ITS ---
PROCEDURE: CT HEAD/BRAIN WO CON INDICATIONS: severe left sided head pain TECHNIQUE: Noncontrast 4.5 mm thick angled axial sections acquired from the foramen magnum to the vertex, with coronal and sagittal reformats. For radiation dose reduction, the following was used: automated exposure control, adjustment of mA and/or kV according to patient size. COMPARISON: [facility], CT, CT HEAD/BRAIN WO CON, 02/08/2020, 21:08. FINDINGS: Image quality: Excellent. CSF spaces: Basal cisterns are patent. No extra-axial fluid collections. The ventricles are symmetric in size and shape. Brain: No intracranial bleeds or masses. There is cerebral volume loss for age, with resultant ventricular and sulcal prominence. There are periventricular and deep white matter chronic small vessel ischemic changes. There is intracranial internal carotid artery atherosclerosis. Skull and face: Calvarium and visualized facial bones appear intact, without suspicious lesions. Sinuses: Visualized sinuses and mastoids are clear. IMPRESSION: 1. No acute intracranial process. 2. Mild to moderate atrophy and chronic microvascular ischemic changes. Dictated by: Debby Sahu M.D. on 01/14/2021 at 20:01 Approved by: Debby Sahu M.D. on 01/14/2021 at 20:02
--- NOTE | 2021-01-14 20:14 | ED_ITS ---
HPI - Headache General Chief Complaint: Headache Stated Complaint: lt sided facial pain, feels weird Time Seen by Provider: 01/14/21 19:37 Mode of arrival: Ambulatory Limitations: no limitations History of Present Illness HPI Narrative: 85 nonsmoker with extensive cardiac history including stents x6 presents with the chief complaint of?moderate left sided headache over the course of the day with some reported blurring of vision in her left eye. She denies any fever or chills nor neck pain. She denies any trauma or injury. She states that her symptoms have been gradually worsening and are overlying her left yarsanism. She states her symptoms are worse with palpation but little else. She denies any jaw pain, claudication or extremity or joint pain. She denies any other focal neurologic symptoms such as trouble with speech, dizziness, difficulty with ambulation or extremity weakness. She states that her head pain started prior to her blurring of vision. She denies any eye pain or double vision. She denies any visual field cut. Related Data Home Medications Medication Instructions Recorded Confirmed aspirin 81 mg tablet,delayed 81 mg PO DAILY #0 05/14/17 02/09/20 release cyanocobalamin (vitamin B-12) 2,000 mcg PO DAILY 11/18/18 02/09/20 2,000 mcg tablet nitroglycerin 0.4 mg sublingual 1 tab SUBLINGUAL [id number] PRN 11/18/18 02/09/20 tablet rosuvastatin 40 mg tablet 40 mg PO QPM 11/18/18 02/09/20 metoprolol tartrate 25 mg tablet 25 mg PO BID 01/23/19 02/09/20 potassium chloride 10 mEq 10 meq PO DAILY 01/23/19 02/09/20 capsule,extended release cholecalciferol (vitamin D3) 125 5,000 unit PO DAILY 05/03/19 02/09/20 mcg (5,000 unit) tablet (Vitamin D3) clopidogrel 75 mg tablet 75 mg PO DAILY 05/03/19 02/09/20 escitalopram oxalate 5 mg tablet 10 mg PO DAILY 05/03/19 02/09/20 alprazolam 0.5 mg tablet 0.5 mg PO TID PRN 06/01/19 02/09/20 lidocaine 5 % topical patch 1 patch TOPICAL DAILY PRN 06/01/19 02/09/20 ranolazine 500 mg tablet,extended 500 mg PO BID 02/09/20 02/09/20 release,12 hr sacubitril 24 mg-valsartan 26 mg 1 tab PO BID 02/09/20 02/09/20 tablet (Entresto) Previous Rx's Medication Instructions Recorded methocarbamol 750 mg tablet 750 mg PO TID PRN #14 tab 11/18/19 acetaminophen 300 mg-codeine 30 mg 1 tab PO Q4-6H PRN #15 tab 02/09/20 tablet furosemide 40 mg tablet 40 mg PO DAILY #30 tab 02/09/20 Allergies Allergy/AdvReac Type Severity Reaction Status Date / Time erythromycin base Allergy Severe Rash Verified 01/14/21 19:25 [ERYTHROMYCIN BASE] ibuprofen [IBUPROFEN] Allergy Severe Rash Verified 01/14/21 19:25 Iodinated Contrast Media Allergy Severe Unconscious Verified 01/14/21 19:25 [IODINATED CONTRAST- ORAL AND IV DYE] morphine [MORPHINE] Allergy Severe Rash Verified 01/14/21 19:25 naproxen [From ALEVE] Allergy Severe Rash Verified 01/14/21 19:25 telmisartan [TELMISARTAN] Allergy Severe Rash Verified 01/14/21 19:25 Review of Systems Review of Systems Narrative: GENERAL: Denies chills, fatigue, malaise, fever, sweats. HEENT: See HPI RESPIRATORY: Denies dyspnea, cough, wheezing, hemoptysis, sputum. CARDIOVASCULAR: Denies chest pain, palpitations, orthopnea, edema, GASTROINTESTINAL: Denies nausea, vomiting, abdominal pain, diarrhea, constipation, melena. : Denies dysuria, frequency, incontinence, hematuria, urinary retention. MUSCULOSKELETAL: denies weakness, joint pain, or bony pain SKIN: Denies rash, skin lesions, or other NEUROLOGIC: See HPI PSYCHIATRIC: No concerning psychosocial issues. 12 point review of systems is negative except for those stated above Patient History Medical History Cardiac arrest Chest pain Coronary artery disease Diastolic heart failure Hyperlipidemia Hypertension Left hamstring muscle strain NSTEMI (non-ST elevated myocardial infarction) Skin cancer UTI (urinary tract infection) Surgical History H/O right heart catheterization History of appendectomy History of breast implant removal History of breast surgery History of cholecystectomy History of coronary artery stent placement History of total abdominal hysterectomy Family History Father Hypertension Diabetes mellitus Mother Hypertension [place] (myocardial infarction) Sister [place] (myocardial infarction) S/P CABG x 4 Social History household members: children Smoking Status: Never smoker Smoking Status: Never smoker alcohol intake frequency: holidays/special occasions only Substance Use Type: does not use Exam Narrative Exam Narrative: GENERAL: [85 year old patient appears stated age. Well-developed patient, in mild distress. GCS 15 HEAD: Atraumatic. Normocephalic. Tender to palpate over left yarsanism, no pulsatile, erythematous or indurated lesions. EYES: Pupils equal round and reactive. Extraocular motions intact. No scleral icterus. No injection or drainage. Visual acuity unremarkable and noted in the nurse's documentation. Left eye pressure 15 mmHg. ENT: Nose without bleeding, purulent drainage. Throat without erythema, tons illar hypertrophy or exudate. Airway patent. NECK: Trachea midline. Non tender CARDIOVASCULAR: Regular rate and rhythm without murmurs, gallops, or rubs. RESPIRATORY: Clear to auscultation. Breath sounds equal bilaterally. No wheezes, rales, or rhonchi. GASTROINTESTINAL: Abdomen soft, non-tender, nondistended. EXTREMITIES: No edema or joint tenderness. BACK: Nontender without deformity or crepitance. No flank tenderness. NEURO: AOx3. SKIN: No rash or erythema of visible areas NIH Stroke Scale 1a. LOC: Patient is alert and keenly responsive (0) 1b. LOC Questions: Patient answers both LOC questions accurately (0) 1c. LOC Commands: Patient performs both tasks correctly (0) 2. Best Gaze: Normal (0) 3. Visual: No visual loss (0) 4. Facial palsy: Normal symmetrical movements (0) 5. Motor arm: No drift (0) 6. Motor leg: No drift (0) 7. Limb ataxia: Absent (0) 8. Sensory: Normal (0) 9. Best language: No aphasia; normal (0) 10. Dysarthria: Normal (0) 11. Extinction and inattention: No abnormality (0) NIHSS: 0 Initial Vital Signs Initial Vital Signs: Vital Signs Temperature 97.7 F 01/14/21 19:25 Pulse Rate 64 01/14/21 19:25 Respiratory Rate 15 01/14/21 19:25 Blood Pressure 171/68 H 01/14/21 19:25 Pulse Oximetry 96 01/14/21 19:25 Course Orders Ordered: ED Orders 01/14/21 20:06 C-Reactive Protein Quant Stat Complete Blood Count AUTO DIFF Stat Comprehensive Metabolic Panel Stat Erythrocyte Sedimentation Rate Stat 01/15/21 00:25 Urinalysis and Microscopic Stat Urine Culture Stat Discontinued Medications Prednisone (Prednisone 20 Mg Tablet) 40 mg PO NOW ONE Stop: 01/14/21 21:56 Last Admin: 01/14/21 22:01 Dose: 40 mg Documented by: ANDRY Proparacaine HCl (Proparacaine 0.5% Ophth Lena) 1 drops EYE-LEFT NOW ONE Stop: 01/14/21 21:24 Last Admin: 01/14/21 22:00 Dose: 1 drop Documented by: ANDRY Consultations Consultation #1: Ophthalmology at [facility] to consulted. We discussed likelihood of giant cell arteritis and agreed the likelihood is quite low and there is not an indication for transfer tonight. Patient does have an veneer marker locally and can follow-up with them. Happy with single dose of steroid, no need for ongoing therapies unless ophthalmology finds it to be indicated Vital Signs Vital signs: Vital Signs - 8 hr 01/14/21 21:00 01/14/21 21:30 01/14/21 22:00 Pulse Rate 60 63 66 Respiratory Rate 10 L 20 22 Blood Pressure 138/63 154/69 H 158/72 H Pulse Oximetry 94 93 95 01/14/21 22:01 01/14/21 22:30 01/14/21 23:00 Pulse Rate 68 65 67 Respiratory Rate 21 12 13 Blood Pressure 158/72 H 144/68 H 150/67 H Pulse Oximetry 95 94 95 01/15/21 00:53 Pulse Rate 66 Respiratory Rate 18 Blood Pressure 147/100 H Pulse Oximetry 96 MDM - Headache Lab Data Result diagrams: 01/14/21 20:06 01/14/21 20:06 Labs: Lab Results 01/14/21 01/14/21 01/14/21 Range/Units 20:06 20:06 20:06 WBC 7.4 (4.5-11.0) X10^3/uL RBC 4.80 (4.0-5.2) X10^6/uL Hgb 13.5 (12.0-16.0) g/dL Hct 40.8 (36-46) % MCV 84.9 (80-100) fL MCH 28.1 (26-34) PG MCHC 33.1 (30-36) % RDW 16.6 H (11.6-14.8) % Plt Count 229 (150-400) X10^3/uL Neut % (Auto) 58.2 (50-75) % Lymph % (Auto) 29.2 (25-40) % Kay % (Auto) 8.7 (3-14) % Eos % (Auto) 2.4 (2-4) % Baso % (Auto) 1.5 (0-2) % Neut # (Auto) 4300 (8757-4684) /uL Lymph # (Auto) 2200 (2299-6134) /uL Kay # (Auto) 600 (0-900) /uL Eos # (Auto) 200 (0-450) /uL Baso # (Auto) 100 (0-100) /uL ESR 33 H (0-20) MM/HR Sodium 139 (137-145) mmol/L Potassium 3.4 (3.4-5.1) mmol/L Chloride 104 (98-107) mmol/L Carbon Dioxide 29 (22-32) mmol/L BUN 27 H (7-17) mg/dL Creatinine 1.13 H (0.52-1.04) mg/dL Estimated GFR 46.0 L (>60) mL/min BUN/Creatinine Ratio 23.9 H (6-22) Glucose 157 H (80-110) mg/dL Calcium 9.2 (8.4-10.2) mg/dL Total Bilirubin 0.4 (0.2-1.3) mg/dL AST 21 (14-36) IU/L ALT 8 (<35) IU/L Alkaline Phosphatase 52 (38-126) U/L C-Reactive Protein < 0.5 (<1.0) mg/dL Total Protein 6.8 (6.3-8.2) g/dL Albumin 4.0 (3.5-5.0) g/dL Globulin 2.8 (1.7-4.1) g/dL Albumin/Globulin Ratio 1.4 (1.0-2.8) Urine Color Urine Appearance Urine pH (4.5-8.0) Ur Specific [place] (1.000-1.035) Urine Protein (Negative) Urine Glucose (UA) (Negative) g/dL Urine Ketones (NEGATIVE) Urine Occult Blood (Negative) Urine Nitrate (Negative) Urine Bilirubin (NEGATIVE) Urine Urobilinogen (0.2) E.U./dL Ur Leukocyte Esterase (NEGATIVE) Urine RBC (0-5/HPF) Urine WBC (0-5/HPF) Ur Squamous Epith Cells (0-5/HPF) Urine Bacteria (None) Granular Casts (None) Urine Mucus (Negative) Ur Culture Indicated? 01/15/21 Range/Units 00:25 WBC (4.5-11.0) X10^3/uL RBC (4.0-5.2) X10^6/uL Hgb (12.0-16.0) g/dL Hct (36-46) % MCV (80-100) fL MCH (26-34) PG MCHC (30-36) % RDW (11.6-14.8) % Plt Count (150-400) X10^3/uL Neut % (Auto) (50-75) % Lymph % (Auto) (25-40) % Kay % (Auto) (3-14) % Eos % (Auto) (2-4) % Baso % (Auto) (0-2) % Neut # (Auto) (0294-5382) /uL Lymph # (Auto) (3409-2788) /uL Kay # (Auto) (0-900) /uL Eos # (Auto) (0-450) /uL Baso # (Auto) (0-100) /uL ESR (0-20) MM/HR Sodium (137-145) mmol/L Potassium (3.4-5.1) mmol/L Chloride (98-107) mmol/L Carbon Dioxide (22-32) mmol/L BUN (7-17) mg/dL Creatinine (0.52-1.04) mg/dL Estimated GFR (>60) mL/min BUN/Creatinine Ratio (6-22) Glucose (80-110) mg/dL Calcium (8.4-10.2) mg/dL Total Bilirubin (0.2-1.3) mg/dL AST (14-36) IU/L ALT (<35) IU/L Alkaline Phosphatase (38-126) U/L C-Reactive Protein (<1.0) mg/dL Total Protein (6.3-8.2) g/dL Albumin (3.5-5.0) g/dL Globulin (1.7-4.1) g/dL Albumin/Globulin Ratio (1.0-2.8) Urine Color Yellow Urine Appearance Clear Urine pH 5.5 (4.5-8.0) Ur Specific [place] 1.020 (1.000-1.035) Urine Protein Trace H (Negative) Urine Glucose (UA) Negative (Negative) g/dL Urine Ketones Trace H (NEGATIVE) Urine Occult Blood Negative (Negative) Urine Nitrate Negative (Negative) Urine Bilirubin Negative (NEGATIVE) Urine Urobilinogen 0.2 (0.2) E.U./dL Ur Leukocyte Esterase Trace H (NEGATIVE) Urine RBC 1-5/hpf (0-5/HPF) Urine WBC 1-5/hpf (0-5/HPF) Ur Squamous Epith Cells 5-10 /hpf H (0-5/HPF) Urine Bacteria Occasional (0-1) (None) Granular Casts 1-5/lpf (None) Urine Mucus 1+ H (Negative) Ur Culture Indicated? Specimen cultured Imaging Data CT scan - head: Radiologist's Impression: [place] [address] CT Scan Report Signed Patient: Lida Townsend MR#: [id number] : 1935 Acct:[id number] Age/Sex: 85 / F Date of Service: 01/14/21 Loc: ED Accession Number: [id number] ?? Procedure: CT head/brain wo con Ordering Provider: Ankur Nunez D.O. PROCEDURE:? CT HEAD/BRAIN WO CON ? INDICATIONS:? severe left sided head pain ? TECHNIQUE:? Noncontrast 4.5 mm thick angled axial sections acquired from the foramen magnum to the vertex, with coronal and sagittal reformats.? For radiation dose reduction, the following was used:? automated exposure control, adjustment of mA and/or kV according to patient size.? ? COMPARISON:? [facility], CT, CT HEAD/BRAIN WO CON, 02/08/2020, 21:08. ? FINDINGS:? Image quality:? Excellent.? ? CSF spaces:? Basal cisterns are patent.? No extra-axial fluid collections.? The ventricles are symmetric in size and shape.? ? Brain:? No intracranial bleeds or masses.? There is cerebral volume loss for age, with resultant ventricular and sulcal prominence.? There are periventricular and deep white matter chronic small vessel ischemic changes.? There is intracranial internal carotid artery atherosclerosis.? ? Skull and face:? Calvarium and visualized facial bones appear intact, without suspicious lesions.? ? Sinuses:? Visualized sinuses and mastoids are clear.? ? IMPRESSION:? ? 1. No acute intracranial process. ? 2. Mild to moderate atrophy and chronic microvascular ischemic changes. ? ? Dictated by: Debby Sahu M.D. on 01/14/2021 at 20:01 ? ? Approved by: Debby Sahu M.D. on 01/14/2021 at 20:02 ? MDM Narrative Medical decision making narrative: Headache considerations include, but not limited to: Subarachnoid hemorrhage, but unlikely as patient denies sudden onset of pain, not worst of life, or neck pain Meningitis considered, but thought unlikely given lack of Brudzinski's, Kernig's sign, altered mental status or fever Giant cell arteritis considered, but thought unlikely given lack of visual findings, no elevation in CRP, minimally elevated ESR, lack of jaw claudication or joint pain. HTN Emergency considered, but thought unlikely given normal vitals Other serious diagnoses considered unlikely given lack of red flag findings such as sudden onset, increasing frequency, immunocompromise, systemic signs (fever, chills, stiff neck, or rash), focal neurologic findings, trauma, blood thinners, etc. Discharge Plan Departure Patient Disposition: Home Clinical Impression: Headache Instructions: DI for Headache Activity Restrictions/Additional Instructions: *You have been diagnosed with [left-sided headache, no evidence of stroke or hypertensive emergency. Possible very early or mild giant cell arteritis *What to do: *Please continue to take your regular medications as directed. [ ] New medication prescriptions sent to your pharmacy: [ ] [ ] New medication written as a paper prescription [x ] No new medications given *Please follow up with your eye doctor in [place] later today. Call them and let them know that you were seen in the emergency department and we would like he seen today for further evaluation if you are unable to get in with your veneer marker please contact our local ophthalmology office at the number listed below *Return to ER if you should have any new, worsening or concerning symptoms, such as [ fever > 101F, neck pain or stiffness, vomiting, confusion, seizure, fo jacqueline weakness, vision change, speech deficit or other concerning symptoms ] Prescriptions: No Action aspirin 81 MG tablet,delayed release (DR/EC) 81 mg PO DAILY Qty: 0 RF: 0 clopidogrel 75 mg tablet 75 mg PO DAILY RF: 0 escitalopram oxalate 5 mg tablet 10 mg PO DAILY RF: 0 cholecalciferol (vitamin D3) [Vitamin D3] 5,000 unit Tablet 5,000 unit PO DAILY RF: 0 methocarbamol 750 mg tablet 750 mg PO TID PRN (Reason: muscle spasm) Qty: 14 RF: 0 Entresto 24-26 mg tablet 1 tab PO BID RF: 0 ranolazine 500 mg tablet extended release 12 hr 500 mg PO BID RF: 0 furosemide 40 mg tablet 40 mg PO DAILY Qty: 30 RF: 0 acetaminophen-codeine 300-30 mg tablet 1 tab PO Q4-6H PRN (Reason: pain) Qty: 15 RF: 0 nitroglycerin 0.4 mg tablet, sublingual 1 tab sublingual [id number] PRN (Reason: Chest Pain) RF: 0 rosuvastatin 40 mg tablet 40 mg PO QPM RF: 0 cyanocobalamin (vitamin B-12) 2,000 mcg Tablet 2,000 mcg PO DAILY RF: 0 potassium chloride 10 mEq capsule, extended release 10 meq PO DAILY RF: 0 metoprolol tartrate 25 mg tablet 25 mg PO BID RF: 0 alprazolam 0.5 mg Tablet 0.5 mg PO TID PRN (Reason: Anxiety) RF: 0 lidocaine 5 % Adhesive Patch,Medicated 1 patch TOPICAL DAILY PRN (Reason: Pain (Scale Score 1-3)) RF: 0 Referrals: Chris Valadez MD [Physician] - Zoe Bass PA-C [Primary Care Provider] -
[2021-01-14 20:16] LABS: Add Manual Diff / Slide Review NO; Basophils Absolute Auto 100 /uL (0-100); Basophils Percent Auto 1.5 % (0-2); Eosinophils Absolute Auto 200 /uL (0-450); Eosinophils Percent Auto 2.4 % (2-4); Hematocrit 40.8 % (36-46); Hemoglobin 13.5 g/dL (12.0-16.0); Lymphocytes Absolute Auto 2200 /uL (1100-4500); Lymphocytes Percent Auto 29.2 % (25-40); Mean Corpuscular HGB Conc 33.1 % (30-36); Mean Corpuscular Hemoglobin 28.1 PG (26-34); Mean Corpuscular Volume 84.9 fL (80-100); Monocytes Absolute Auto 600 /uL (0-900); Monocytes Percent Auto 8.7 % (3-14); Neutrophils Absolute Auto 4300 /uL (1500-7000); Neutrophils Percent Auto 58.2 % (50-75); Platelet Count 229 X10^3/uL (150-400); Red Cell Distribution Width 16.6 % (11.6-14.8); White Blood Cell Count 7.4 X10^3/uL (4.5-11.0)
[2021-01-14 20:34] LABS: Alanine Aminotransferase 8 IU/L (<35); Albumin Globulin Ratio 1.4 (1.0-2.8); Alkaline Phosphatase 52 U/L (38-126); Aspartate Aminotransferase 21 IU/L (14-36); BUN Creatinine Ratio 23.9 (6-22); Bilirubin Total 0.4 mg/dL (0.2-1.3); Blood Urea Nitrogen 27 mg/dL (7-17); C-Reactive Protein Quant < 0.5 mg/dL (<1.0); Calcium 9.2 mg/dL (8.4-10.2); Carbon Dioxide 29 mmol/L (22-32); Chloride 104 mmol/L (98-107); Globulin 2.8 g/dL (1.7-4.1); Glucose 157 mg/dL (80-110); HEMOLYSIS < 15 (0-50); Potassium 3.4 mmol/L (3.4-5.1); Sodium 139 mmol/L (137-145); Total Protein 6.8 g/dL (6.3-8.2)
--- NOTE | 2021-01-14 20:55 | PC.NURSE ---
Pt states she woke up at 0430 with a funny feeling on the L side of her face. She describes it as a dulled sensation. the sensation started at the corner of her L eye and has grown over her L forehead and slightly down her L neck. No visual changes. No other neuro symptoms. Speaking clearly. VS WNL
[2021-01-14 21:25] LABS: Erythrocyte Sedimentation Rate 33 MM/HR (0-20)
[2021-01-14] MEDS: PROPARACAINE 0.5% OPHTH SOL 1 DROPS EYE-LEFT (22:00)
[2021-01-14] MEDS: predniSONE 20 MG TABLET 40 MG PO (22:01)
[2021-01-15 00:43] LABS: Appearance Urine UA CLEAR; Bilirubin Urine UA NEGATIVE (NEGATIVE); Color Urine UA YELLOW; Glucose Urine UA NEGATIVE (Negative); Ketones Urine UA TRACE (NEGATIVE); Leukocyte Esterase Urine UA TRACE (NEGATIVE); Nitrite Urine UA NEGATIVE (Negative); Occult Blood Urine UA NEGATIVE (Negative); Protein Urine UA TRACE (Negative); Urobilinogen Urine UA 0.2 E.U./dL (0.2)
[2021-01-15 00:52] LABS: pH Urine UA 5.5 (4.5-8.0)
[2021-01-15 00:53] VITALS: BP 147/100; PULSE 66; RESP 18; O2SAT 96
[2021-01-15 00:53] LABS: RBC Urine 1-5/HPF (0-5/HPF); Squamous Epithelial Cell Urine 5-10 /HPF (0-5/HPF); WBC Urine 1-5/HPF (0-5/HPF)
[2021-01-15 00:55] LABS: Bacteria Urine Occasional (0-1); Mucus Urine 1+ (Negative)
[2021-01-15 00:57] LABS: Culture Indicated Urine Specimen Cultured; Granular Casts Urine 1-5/LPF
== END 2021-01-15 00:54 | disposition home or self-care (01) ==
PROVIDERS: Emergency Provider Emergency Medicine; Family Provider Internal Medicine; PCP Physician Assistant Medical
DX: R51.9 Headache, unspecified (principal); H53.8 Other visual disturbances
CPT/HCPCS: 36415; 70450; 80053; 81001; 85025; 85651; 86140; 87086; 99284

== ENCOUNTER 2021-03-06 10:24 | Inpatient (IN) | payer MEDICARE, OTHER, SELFPAY ==
[2020-02-09 00:42] VITALS: BMI 34.0
[2021-03-06] VITALS (22 sets, daily range): BP systolic 162–223; BP diastolic 71–113; PULSE 58–69; RESP 7–36; TEMP 36.6–37; O2SAT 88–97; BMI 36.7
--- NOTE | 2021-03-06 10:33 | PC.NURSE ---
Saw patient on arrival. 97% on room air while seated.
--- NOTE | 2021-03-06 11:25 | DI.RAD.S_ITS ---
PROCEDURE: XR CHEST 1V INDICATIONS: flu-like symptoms TECHNIQUE: One view of the chest was acquired. COMPARISON: [facility], CR, XR CHEST 1 VIEW, 07/01/2020, 11:17. [facility], CT, CT ANGIO CHEST ABDOMEN PELVIS, 03/14/2020, 17:45. [facility], CR, XR CHEST 1 VIEW, 03/17/2020, 12:22. [facility], CR, XR CHEST 1V, 03/14/2020, 15:39. [facility], CR, XR CHEST 1V, 06/26/2020, 14:02. FINDINGS: Surgical changes and devices: None. Lungs and pleura: An incomplete inspiratory result is noted, causing a crowded appearance to the lung markings. No focal infiltrates are seen. No pneumothorax is seen. There is mild blunting of the left costophrenic angle. Mild generalized interstitial prominence can be seen. Mediastinum: Mediastinal contours appear normal. Heart size is mildly enlarged. Bones and chest wall: No suspicious bony lesions. Age-appropriate bony degenerative changes are seen, particularly involving the shoulders. Overlying soft tissues appear unremarkable. IMPRESSION: Low lung volumes with diffuse interstitial prominence. Differential diagnosis includes pulmonary edema, artifact, and atypical infection (including COVID pneumonia). There is mild cardiomegaly. Potential small left-sided pleural effusion. If clinically appropriate, a short-term followup chest series (with PA and lateral views) performed in deep inspiration is suggested for further evaluation. Dictated by: Venkat Tucker M.D. on 03/06/2021 at 11:09 Approved by: Venkat Tucker M.D. on 03/06/2021 at 11:11
--- NOTE | 2021-03-06 11:25 | ED_ITS ---
HPI - SOB/Dyspnea General Chief Complaint: Shortness of Breath/Dyspnea Stated Complaint: Covid Pneumonia- worsening Time Seen by Provider: 03/06/21 10:58 History of Present Illness HPI Narrative: 85-year-old female nonsmoker with extensive history of cardiac disease presents with her daughter and a chief complaint of 2-3 days of worsening shortness of breath with minimal exertion. She has had no fever chills but has had some cough. She feels dizzy and lightheaded and generally quite unwell. She denies runny nose, sore throat. She denies any nausea, vomiting or diarrhea. She denies any new medications or changes in the dosage of her previous medications. She was diagnosed with COVID about 1 month ago and states that she took a few weeks to get over it but had been feeling okay until the past few days. Related Data Home Medications Medication Instructions Recorded Confirmed aspirin 81 mg tablet,delayed 81 mg PO DAILY #0 05/14/17 03/06/21 release nitroglycerin 0.4 mg sublingual 1 tab SUBLINGUAL [id number] PRN 11/18/18 03/06/21 tablet rosuvastatin 40 mg tablet 40 mg PO QPM 11/18/18 03/06/21 metoprolol tartrate 25 mg tablet 37.5 mg PO BID 01/23/19 03/06/21 ranolazine 500 mg tablet,extended 500 mg PO BID 02/09/20 03/06/21 release,12 hr escitalopram oxalate 20 mg tablet 20 mg PO DAILY 03/06/21 03/06/21 pantoprazole 40 mg tablet,delayed 40 mg PO DAILY 03/06/21 03/06/21 release Previous Rx's Medication Instructions Recorded furosemide 40 mg tablet 40 mg PO DAILY #30 tab 02/09/20 Allergies Allergy/AdvReac Type Severity Reaction Status Date / Time erythromycin base Allergy Severe Rash Verified 03/06/21 11:44 [ERYTHROMYCIN BASE] ibuprofen [IBUPROFEN] Allergy Severe Rash Verified 03/06/21 11:44 Iodinated Contrast Media Allergy Severe Unconscious Verified 03/06/21 11:44 [IODINATED CONTRAST- ORAL AND IV DYE] morphine [MORPHINE] Allergy Severe Rash Verified 03/06/21 11:44 naproxen [From ALEVE] Allergy Severe Rash Verified 03/06/21 11:44 telmisartan [TELMISARTAN] Allergy Severe Rash Verified 03/06/21 11:44 Review of Systems Review of Systems Narrative: GENERAL: Denies chills, fatigue, malaise, fever, sweats. HEENT: Denies sinus pain, ear pain, sore throat, difficulty swallowing, dizziness. RESPIRATORY: See HPI CARDIOVASCULAR: D see HPI GASTROINTESTINAL: Denies nausea, vomiting, abdominal pain, diarrhea, constipation, melena. : Denies dysuria, frequency, incontinence, hematuria, urinary retention. MUSCULOSKELETAL: denies weakness, joint pain, or bony pain SKIN: Denies rash, skin lesions, or other NEUROLOGIC: Denies weakness, headache, numbness, change in speech, confusion, seizures, incoordination. PSYCHIATRIC: No concerning psychosocial issues. 12 point review of systems is negative except for those stated above Patient History Medical History Cardiac arrest Chest pain Coronary artery disease Diastolic heart failure Hyperlipidemia Hypertension Left hamstring muscle strain NSTEMI (non-ST elevated myocardial infarction) Skin cancer UTI (urinary tract infection) Surgical History H/O right heart catheterization History of appendectomy History of breast implant removal History of breast surgery History of cholecystectomy History of coronary artery stent placement History of total abdominal hysterectomy Family History Father Hypertension Diabetes mellitus Mother Hypertension OK (myocardial infarction) Sister OK (myocardial infarction) S/P CABG x 4 Social History household members: children Smoking Status: Never smoker Smoking Status: Never smoker alcohol intake frequency: holidays/special occasions only Substance Use Type: does not use Exam Narrative Exam Narrative: GENERAL: [85 year old patient appears stated age. Well-developed patient, in mild distress. Minimal exertion results in significant shortness of breath with pulse ox dropping into the low 80s HEAD: Atraumatic. Normocephalic. EYES: Pupils equal round and reactive. Extraocular motions intact. No scleral icterus. No injection or drainage. ENT: Nose without bleeding, purulent drainage. Throat without erythema, tonsillar hypertrophy or exudate. Airway patent. NECK: Trachea midline. Non tender CARDIOVASCULAR: Regular rate and rhythm without murmurs, gallops, or rubs. RESPIRATORY: Faint crackles in bilateral bases GASTROINTESTINAL: Abdomen soft, non-tender, nondistended. EXTREMITIES: 2+ pitting edema bilateral lower extremities by BACK: Nontender without deformity or crepitance. No flank tenderness. NEURO: AOx3. SKIN: No rash or erythema of visible areas Initial Vital Signs Initial Vital Signs: Vital Signs Pulse Oximetry 92 03/06/21 11:04 Course Orders Ordered: Acetaminophen (Acetaminophen 325 Mg Tablet) 650 mg PO Q6HR PRN PRN Reason: Fever/Mild Pain (1-3) Alprazolam (Alprazolam 0.25 Mg Tablet) 0.25 mg PO BEDTIME PRN PRN Reason: Insomnia Last Admin: 03/06/21 23:16 Dose: 0.25 mg Documented by: RICARDO Carvedilol (Carvedilol 3.125 Mg Tablet) 6.25 mg PO BID AFIA Last Admin: 03/06/21 20:01 Dose: 6.25 mg Documented by: Admin: 03/06/21 17:20 Dose: 6.25 mg Documented by: JAKI Dexamethasone (Dexamethasone 10 Mg/Ml Vial) 6 mg IV DAILY [facility] Enoxaparin Sodium (Enoxaparin 40 Mg/0.4 Ml Syringe) 40 mg SUBCUT DAILY [facility] Furosemide (Furosemide 40 Mg/4 Ml Vial) 40 mg IV DAILY [facility] Remdesivir 100 mg/ Sodium (Chloride) 250 mls @ 250 mls/hr IV DAILY@1700 [facility] Stop: 03/10/21 17:59 Ondansetron HCl (Ondansetron 4 Mg/2 Ml Inj) 4 mg IV Q8HR PRN PRN Reason: Nausea And Vomiting Discontinued Medications Amlodipine Besylate (Amlodipine 5 Mg Tablet) 5 mg PO NOW ONE Stop: 03/06/21 16:43 Last Admin: 03/06/21 17:20 Dose: 5 mg Documented by: JAKI Dexamethasone (Dexamethasone 10 Mg/Ml Vial) 6 mg IV NOW ONE Stop: 03/06/21 14:54 Last Admin: 03/06/21 16:31 Dose: 6 mg Documented by: MALIK Furosemide (Furosemide 40 Mg/4 Ml Vial) 40 mg IV NOW ONE Stop: 03/06/21 12:59 Last Admin: 03/06/21 13:12 Dose: 40 mg Documented by: YOANDY Sodium Chloride (Normal Saline 0.9%) 1,000 mls @ 125 mls/hr IV CONT AFIA Last Infusion: 03/06/21 14:39 Dose: 0 mls/hr Documented by: Admin: 03/06/21 13:11 Dose: 125 mls/hr Documented by: YOANDY Remdesivir 200 mg/ Sodium (Chloride) 250 mls @ 250 mls/hr IV NOW ONE Stop: 03/06/21 15:52 Last Infusion: 03/06/21 17:30 Dose: 0 mls/hr Documented by: Admin: 03/06/21 16:29 Dose: 250 mls/hr Documented by: MALIK Sodium Chloride (Normal Saline 0.9%) 1,000 mls @ 1,000 mls/hr IV BOLUS ONE Stop: 03/06/21 22:22 Last Infusion: 03/06/21 22:48 Dose: 0 mls/hr Documented by: Admin: 03/06/21 21:44 Dose: 1,000 mls/hr Documented by: RICARDO Potassium Chloride (Potassium Chloride 20 Meq/15 Ml Udc) 40 meq PO NOW ONE Stop: 03/06/21 15:20 Last Admin: 03/06/21 16:31 Dose: 40 meq Documented by: MALIK Quetiapine Fumarate (Quetiapine 25 Mg Tablet) 25 mg PO BID [facility] Vital Signs Vital signs: Vital Signs - 8 hr 03/06/21 11:44 Temperature 98.3 F Pulse Rate 58 L Respiratory Rate 11 L Blood Pressure 198/83 H Pulse Oximetry 93 MDM - SOB/Dyspnea Lab Data Result diagrams: 03/06/21 11:25 03/06/21 11:25 Labs: Lab Results 03/06/21 03/06/21 03/06/21 Range/Units 11:25 11:25 11:25 WBC 9.7 (4.5-11.0) X10^3/uL RBC 4.77 (4.0-5.2) X10^6/uL Hgb 13.1 (12.0-16.0) g/dL Hct 38.8 (36-46) % MCV 81.4 (80-100) fL MCH 27.5 (26-34) PG MCHC 33.8 (30-36) % RDW 17.1 H (11.6-14.8) % Plt Count 298 (150-400) X10^3/uL Neut % (Auto) 84.1 H (50-75) % Lymph % (Auto) 12.0 L (25-40) % Mora % (Auto) 3.3 (3-14) % Eos % (Auto) 0.0 L (2-4) % Baso % (Auto) 0.6 (0-2) % Neut # (Auto) 8100 H (5805-0736) /uL Lymph # (Auto) 1200 (2690-2815) /uL Mora # (Auto) 300 (0-900) /uL Eos # (Auto) 0 (0-450) /uL Baso # (Auto) 100 (0-100) /uL D-Dimer 646 H (<230) ng/mL ABG pH (7.35-7.45) ABG pCO2 (35-45) mmHg ABG pO2 (80-100) mmHg ABG HCO3 (22-26) mmol/L ABG Total CO2 (21-31) mmol/L ABG O2 Saturation (95-100) % ABG Base Excess (-2-2) mmol/L FiO2 Sodium 137 (137-145) mmol/L Potassium 3.1 L (3.4-5.1) mmol/L Chloride 97 L (98-107) mmol/L Carbon Dioxide 31 (22-32) mmol/L BUN 12 (7-17) mg/dL Creatinine 1.12 H (0.52-1.04) mg/dL Estimated GFR 46.5 L (>60) mL/min BUN/Creatinine Ratio 10.7 (6-22) Glucose 147 H (80-110) mg/dL Lactate (0.7-2.1) mmol/L Calcium 9.3 (8.4-10.2) mg/dL Ferritin 46 (11-264) ng/mL Total Bilirubin 0.6 (0.2-1.3) mg/dL AST 26 (14-36) IU/L ALT 13 (<35) IU/L Alkaline Phosphatase 70 (38-126) U/L Lactate Dehydrogenase 619 H (313-618) U/L Total Creatine Kinase 46 (30-135) U/L CK-MB (CK-2) TNP CK-MB (CK-2) Rel Index TNP Troponin I 0.025 (0.01-0.034) ng/mL C-Reactive Protein < 0.5 (<1.0) mg/dL NT-Pro-B Natriuret Pep 3160 H (<450) pg/mL Total Protein 7.9 (6.3-8.2) g/dL Albumin 4.2 (3.5-5.0) g/dL Globulin 3.7 (1.7-4.1) g/dL Albumin/Globulin Ratio 1.1 (1.0-2.8) Procalcitonin 0.05 (<0.5) ng/mL Chlamy pneumoniae PCR (Not Detect) Adenovirus (PCR) (Not Detect) B. pertussis DNA (PCR) (Not Detecte) B.parapertussis DNA PCR (Not Detecte) Coronavirus OC43 (PCR) (Not Detect) Coronavirus HKU1 (PCR) (Not Detect) Coronavirus 229E (PCR) (Not Detect) SARS-CoV-2 (PCR) (Negative) Coronavirus NL63 (PCR) (Not Detect) Human Metapneumovir PCR (Not Detect) Influenza Type A (PCR) (Not Detect) Influenza Type B (PCR) (Not Detect) M. pneumoniae (PCR) (Not Detect) Parainfluenza 1 (PCR) (Not Detect) Parainfluenza 2 (PCR) (Not Detect) Parainfluenza 3 (PCR) (Not Detect) Parainfluenza 4 (PCR) (Not Detect) RSV (PCR) (Not Detect) Entero/Rhino (PCR) (Not Detect) 03/06/21 03/06/21 03/06/21 Range/Units 11:25 11:30 11:30 WBC (4.5-11.0) X10^3/uL RBC (4.0-5.2) X10^6/uL Hgb (12.0-16.0) g/dL Hct (36-46) % MCV (80-100) fL MCH (26-34) PG MCHC (30-36) % RDW (11.6-14.8) % Plt Count (150-400) X10^3/uL Neut % (Auto) (50-75) % Lymph % (Auto) (25-40) % Mora % (Auto) (3-14) % Eos % (Auto) (2-4) % Baso % (Auto) (0-2) % Neut # (Auto) (9532-8173) /uL Lymph # (Auto) (3674-7811) /uL Mora # (Auto) (0-900) /uL Eos # (Auto) (0-450) /uL Baso # (Auto) (0-100) /uL D-Dimer (<230) ng/mL ABG pH (7.35-7.45) ABG pCO2 (35-45) mmHg ABG pO2 (80-100) mmHg ABG HCO3 (22-26) mmol/L ABG Total CO2 (21-31) mmol/L ABG O2 Saturation (95-100) % ABG Base Excess (-2-2) mmol/L FiO2 Sodium (137-145) mmol/L Potassium (3.4-5.1) mmol/L Chloride (98-107) mmol/L Carbon Dioxide (22-32) mmol/L BUN (7-17) mg/dL Creatinine (0.52-1.04) mg/dL Estimated GFR (>60) mL/min BUN/Creatinine Ratio (6-22) Glucose (80-110) mg/dL Lactate 3.2 H (0.7-2.1) mmol/L Calcium (8.4-10.2) mg/dL Ferritin (11-264) ng/mL Total Bilirubin (0.2-1.3) mg/dL AST (14-36) IU/L ALT (<35) IU/L Alkaline Phosphatase (38-126) U/L Lactate Dehydrogenase (313-618) U/L Total Creatine Kinase (30-135) U/L CK-MB (CK-2) CK-MB (CK-2) Rel Index Troponin I (0.01-0.034) ng/mL C-Reactive Protein (<1.0) mg/dL NT-Pro-B Natriuret Pep (<450) pg/mL Total Protein (6.3-8.2) g/dL Albumin (3.5-5.0) g/dL Globulin (1.7-4.1) g/dL Albumin/Globulin Ratio (1.0-2.8) Procalcitonin (<0.5) ng/mL Chlamy pneumoniae PCR Not detected (Not Detect) Adenovirus (PCR) Not detected (Not Detect) B. pertussis DNA (PCR) Not detected (Not Detecte) B.parapertussis DNA PCR Not detected (Not Detecte) Coronavirus OC43 (PCR) Not detected (Not Detect) Coronavirus HKU1 (PCR) Not detected (Not Detect) Coronavirus 229E (PCR) Not detected (Not Detect) SARS-CoV-2 (PCR) Positive H Detected H (Negative) Coronavirus NL63 (PCR) Not detected (Not Detect) Human Metapneumovir PCR Not detected (Not Detect) Influenza Type A (PCR) Not detected (Not Detect) Influenza Type B (PCR) Not detected (Not Detect) M. pneumoniae (PCR) Not detected (Not Detect) Parainfluenza 1 (PCR) Not detected (Not Detect) Parainfluenza 2 (PCR) Not detected (Not Detect) Parainfluenza 3 (PCR) Not detected (Not Detect) Parainfluenza 4 (PCR) Not detected (Not Detect) RSV (PCR) Not detected (Not Detect) Entero/Rhino (PCR) Not detected (Not Detect) 03/06/21 03/06/21 Range/Units 12:58 14:20 WBC (4.5-11.0) X10^3/uL RBC (4.0-5.2) X10^6/uL Hgb (12.0-16.0) g/dL Hct (36-46) % MCV (80-100) fL MCH (26-34) PG MCHC (30-36) % RDW (11.6-14.8) % Plt Count (150-400) X10^3/uL Neut % (Auto) (50-75) % Lymph % (Auto) (25-40) % Mora % (Auto) (3-14) % Eos % (Auto) (2-4) % Baso % (Auto) (0-2) % Neut # (Auto) (0561-4629) /uL Lymph # (Auto) (0304-7429) /uL Mora # (Auto) (0-900) /uL Eos # (Auto) (0-450) /uL Baso # (Auto) (0-100) /uL D-Dimer (<230) ng/mL ABG pH 7.49 H (7.35-7.45) ABG pCO2 39.3 (35-45) mmHg ABG pO2 79 L (80-100) mmHg ABG HCO3 30 H (22-26) mmol/L ABG Total CO2 31 (21-31) mmol/L ABG O2 Saturation 96 (95-100) % ABG Base Excess 7.0 H (-2-2) mmol/L FiO2 21 Sodium (137-145) mmol/L Potassium (3.4-5.1) mmol/L Chloride (98-107) mmol/L Carbon Dioxide (22-32) mmol/L BUN (7-17) mg/dL Creatinine (0.52-1.04) mg/dL Estimated GFR (>60) mL/min BUN/Creatinine Ratio (6-22) Glucose (80-110) mg/dL Lactate 3.1 H (0.7-2.1) mmol/L Calcium (8.4-10.2) mg/dL Ferritin (11-264) ng/mL Total Bilirubin (0.2-1.3) mg/dL AST (14-36) IU/L ALT (<35) IU/L Alkaline Phosphatase (38-126) U/L Lactate Dehydrogenase (313-618) U/L Total Creatine Kinase (30-135) U/L CK-MB (CK-2) CK-MB (CK-2) Rel Index Troponin I (0.01-0.034) ng/mL C-Reactive Protein (<1.0) mg/dL NT-Pro-B Natriuret Pep (<450) pg/mL Total Protein (6.3-8.2) g/dL Albumin (3.5-5.0) g/dL Globulin (1.7-4.1) g/dL Albumin/Globulin Ratio (1.0-2.8) Procalcitonin (<0.5) ng/mL Chlamy pneumoniae PCR (Not Detect) Adenovirus (PCR) (Not Detect) B. pertussis DNA (PCR) (Not Detecte) B.parapertussis DNA PCR (Not Detecte) Coronavirus OC43 (PCR) (Not Detect) Coronavirus HKU1 (PCR) (Not Detect) Coronavirus 229E (PCR) (Not Detect) SARS-CoV-2 (PCR) (Negative) Coronavirus NL63 (PCR) (Not Detect) Human Metapneumovir PCR (Not Detect) Influenza Type A (PCR) (Not Detect) Influenza Type B (PCR) (Not Detect) M. pneumoniae (PCR) (Not Detect) Parainfluenza 1 (PCR) (Not Detect) Parainfluenza 2 (PCR) (Not Detect) Parainfluenza 3 (PCR) (Not Detect) Parainfluenza 4 (PCR) (Not Detect) RSV (PCR) (Not Detect) Entero/Rhino (PCR) (Not Detect) MDM Narrative Medical decision making narrative: Multiple diagnoses considered including ongoing or even reinfection of COVID vs. OK vs. bacterial pneumonia vs. PE, but most likely diagnosis would appear to be an exacerbation of CHF as is evidenced by significant exertional dyspnea, orthopnea and bilateral lower extremity edema in the setting of elevated BNP and a chest x-ray consistent with CHF. She has had no fever or chills and denies any productive cough back to moan is seems less likely. It is unclear with the elevated lactate is pointing to but it seemed unlikely to be infection at this point. This, in my opinion is not evidence of sepsis, and for this reason in addition to her apparent exacerbation of CHF would suggest against a large fluid bolus. Minimal exertion makes patient hypoxemic and though during the emergency department visit she did not require supplemental oxygen it is reported that she was beginning to have saturations in the upper 80s when the hospitalist was interviewing her for the admission. Discharge Plan Departure Patient Disposition: Admitted as Observation Clinical Impression: Acute CHF Qualifiers: Heart failure type: unspecified Qualified Code(s): I50.9 - Heart failure, unspecified Admit Date/Time: 03/06/21 14:34 Admit Provider: Edgar Simmons
[2021-03-06 11:46] LABS: Add Manual Diff / Slide Review NO; Basophils Absolute Auto 100 /uL (0-100); Basophils Percent Auto 0.6 % (0-2); Eosinophils Absolute Auto 0 /uL (0-450); Hematocrit 38.8 % (36-46); Hemoglobin 13.1 g/dL (12.0-16.0); Lymphocytes Absolute Auto 1200 /uL (1100-4500); Mean Corpuscular HGB Conc 33.8 % (30-36); Mean Corpuscular Hemoglobin 27.5 PG (26-34); Mean Corpuscular Volume 81.4 fL (80-100); Monocytes Absolute Auto 300 /uL (0-900); Monocytes Percent Auto 3.3 % (3-14); Neutrophils Absolute Auto 8100 /uL (1500-7000); Neutrophils Percent Auto 84.1 % (50-75); Platelet Count 298 X10^3/uL (150-400); Red Blood Cell Count 4.77 X10^6/uL (4.0-5.2); Red Cell Distribution Width 17.1 % (11.6-14.8); White Blood Cell Count 9.7 X10^3/uL (4.5-11.0)
[2021-03-06 11:52] LABS: Lactate (Lactic Acid) 3.2 mmol/L (0.7-2.1)
[2021-03-06 11:56] LABS: Alanine Aminotransferase 13 IU/L (<35); Albumin 4.2 g/dL (3.5-5.0); Albumin Globulin Ratio 1.1 (1.0-2.8); Alkaline Phosphatase 70 U/L (38-126); Aspartate Aminotransferase 26 IU/L (14-36); BUN Creatinine Ratio 10.7 (6-22); Bilirubin Total 0.6 mg/dL (0.2-1.3); Blood Urea Nitrogen 12 mg/dL (7-17); C-Reactive Protein Quant < 0.5 mg/dL (<1.0); Calcium 9.3 mg/dL (8.4-10.2); Carbon Dioxide 31 mmol/L (22-32); Chloride 97 mmol/L (98-107); Creatine Kinase 46 U/L (30-135); Estimated Glomerular Filt Rate 46.5 mL/min (>60); Globulin 3.7 g/dL (1.7-4.1); Glucose 147 mg/dL (80-110); HEMOLYSIS < 15 (0-50); Lactate Dehydrogenase 619 U/L (313-618); Potassium 3.1 mmol/L (3.4-5.1); Sodium 137 mmol/L (137-145); Total Protein 7.9 g/dL (6.3-8.2)
[2021-03-06 11:58] LABS: D Dimer 646 ng/mL (<230)
[2021-03-06 12:05] LABS: NT-proBNP (BNP-Adult 18+) 3160 pg/mL (<450); Troponin I 0.025 ng/mL (0.01-0.034)
[2021-03-06 12:10] LABS: Procalcitonin 0.05 ng/mL (<0.5)
[2021-03-06 12:28] LABS: Ferritin 46 ng/mL (11-264)
[2021-03-06 12:30] LABS: COVID19 -Nasal RAPID POSITIVE (Negative)
[2021-03-06 12:53] LABS: Adenovirus Not Detected (Not Detect); B. parapertussis Not Detected (Not Detecte); Bordetella pertussis Not Detected (Not Detecte); Chlamydophila pneumoniae Not Detected (Not Detect); Coronavirus 229E Not Detected (Not Detect); Coronavirus HKU1 Not Detected (Not Detect); Coronavirus NL 63 Not Detected (Not Detect); Coronavirus OC43 Not Detected (Not Detect); Human Metapneumovirus Not Detected (Not Detect); Human Rhinovirus/Enterovirus Not Detected (Not Detect); Influenza A Not Detected (Not Detect); Influenza B Not Detected (Not Detect); Mycoplasma pneumoniae Not Detected (Not Detect); Parainfluenza Virus 1 Not Detected (Not Detect); Parainfluenza Virus 2 Not Detected (Not Detect); Parainfluenza Virus 3 Not Detected (Not Detect); Parainfluenza Virus 4 Not Detected (Not Detect); Respiratory Syncytial Virus Not Detected (Not Detect)
[2021-03-06 12:54] LABS: SARS- CoV-2 Detected (Not Detecte)
[2021-03-06] MEDS: SODIUM CHLORIDE 0.9% 1,000 ML 125 ML IV (13:11)
[2021-03-06] MEDS: FUROSEMIDE 40 MG/4 ML VIAL IV (13:12)
[2021-03-06 13:36] LABS: Reflexed Lactate in 2 Hours Y
[2021-03-06 13:58] LABS: HCO3 ABG 30 mmol/L (22-26); Oxygen Saturation ABG 96 % (95-100); PCO2 ABG 39.3 mmHg (35-45); PO2 ABG 79 mmHg (80-100); TCO2 ABG 31 mmol/L (21-31); pH ABG 7.49 (7.35-7.45)
[2021-03-06 13:59] LABS: Fractionated Inspired Oxygen 21
[2021-03-06 14:57] LABS: Lactate 2HR (Lactic Acid Rflx) 3.1 mmol/L (0.7-2.1)
--- NOTE | 2021-03-06 15:12 | P.HP_ITS ---
History of Present Illness History of Present Illness Date Patient Seen: 03/06/21 Time Patient Seen: 15:00 Chief complaint: Covid Pneumonia- worsening Narrative: Ms. Townsend is a 85W with PMH CAD s/p stents, CHFpEF, HTN, HL, h/o cardiac arrest who comes to the hospital with shortness of breath. She has been vaccinated against COVID. Last month she was diagnosed with COVID and felt quite poorly for weeks, but said she mostly recovered from this infection. Over the last couple days she notes she is fatigued, short of breath with minimal activity. She has noted a productive cough with some sputum, she has noted shaking chills. No fevers. No chest pain. She has not noted fluid retention or weight gain. In the ED, workup was done vitals notable for afebrile, mild bradycardia in the 50s, elevated blood pressure, and initially normal O2 saturation. She did desat with activity into the 80s, and when I was in the room with air she would desat to the 80s on room air. Labs notable for WBC 9.7, hgb 13.1, plts 298, D-dimer 646, sodium 137, k 3.1, creatinine 1.12, LDH 619, trop 0.025, BNP 3160, procal 0.05, lactate 3.2. COVID+. Chest xray showed diffuse interstitial prominence, left sided pleural effusion, and cardiomegaly. She was ordered IV lasix, remdesivir, dexamethasone and admitted for further treatment. Patient History Medical History Cardiac arrest Chest pain Coronary artery disease Diastolic heart failure Hyperlipidemia Hypertension Left hamstring muscle strain NSTEMI (non-ST elevated myocardial infarction) Skin cancer UTI (urinary tract infection) Surgical History H/O right heart catheterization History of appendectomy History of breast implant removal History of breast surgery History of cholecystectomy History of coronary artery stent placement History of total abdominal hysterectomy Family & Social History Family History Father Hypertension Diabetes mellitus Mother Hypertension [place] (myocardial infarction) Sister [place] (myocardial infarction) S/P CABG x 4 Social History: household members children Safety & Behavioral: Feels Safe in Current Yes Environment Tobacco & Substance use: Smoking Status Never smoker alcohol intake frequency holiday/special occasion Substance Use Type does not use Meds Home Medications and Allergies Home Medications Medication Instructions Recorded Confirmed Type aspirin 81 mg tablet,delayed 81 mg PO DAILY #0 05/14/17 02/09/20 History release cyanocobalamin (vitamin B-12) 2,000 mcg PO DAILY 11/18/18 02/09/20 History 2,000 mcg tablet nitroglycerin 0.4 mg sublingual 1 tab SUBLINGUAL [id number] PRN 11/18/18 02/09/20 History tablet rosuvastatin 40 mg tablet 40 mg PO QPM 11/18/18 02/09/20 History metoprolol tartrate 25 mg tablet 25 mg PO BID 01/23/19 02/09/20 History potassium chloride 10 mEq 10 meq PO DAILY 01/23/19 02/09/20 History capsule,extended release cholecalciferol (vitamin D3) 125 5,000 unit PO DAILY 05/03/19 02/09/20 History mcg (5,000 unit) tablet (Vitamin D3) clopidogrel 75 mg tablet 75 mg PO DAILY 05/03/19 02/09/20 History escitalopram oxalate 5 mg tablet 10 mg PO DAILY 05/03/19 02/09/20 History alprazolam 0.5 mg tablet 0.5 mg PO TID PRN 06/01/19 02/09/20 History lidocaine 5 % topical patch 1 patch TOPICAL DAILY PRN 06/01/19 02/09/20 History methocarbamol 750 mg tablet 750 mg PO TID PRN #14 tab 11/18/19 02/09/20 Rx acetaminophen 300 mg-codeine 30 mg 1 tab PO Q4-6H PRN #15 tab 02/09/20 Rx tablet furosemide 40 mg tablet 40 mg PO DAILY #30 tab 02/09/20 Rx ranolazine 500 mg tablet,extended 500 mg PO BID 02/09/20 02/09/20 History release,12 hr sacubitril 24 mg-valsartan 26 mg 1 tab PO BID 02/09/20 02/09/20 History tablet (Entresto) Allergies Allergy/AdvReac Type Severity Reaction Status Date / Time erythromycin base Allergy Severe Rash Verified 03/06/21 11:44 [ERYTHROMYCIN BASE] ibuprofen [IBUPROFEN] Allergy Severe Rash Verified 03/06/21 11:44 Iodinated Contrast Media Allergy Severe Unconscious Verified 03/06/21 11:44 [IODINATED CONTRAST- ORAL AND IV DYE] morphine [MORPHINE] Allergy Severe Rash Verified 03/06/21 11:44 naproxen [From ALEVE] Allergy Severe Rash Verified 03/06/21 11:44 telmisartan [TELMISARTAN] Allergy Severe Rash Verified 03/06/21 11:44 Review of Systems Review of Systems Narrative: 14 systems reviewe and negative aside from what is noted in HPI Exam Vital Signs (past 8 hours): - 03/06/21 11:04 03/06/21 11:05 03/06/21 11:30 Temperature Pulse Rate 62 60 Respiratory Rate 24 Blood Pressure 193/113 H Pulse Oximetry 92 92 93 03/06/21 11:37 03/06/21 11:44 03/06/21 12:00 Temperature 98.3 F Pulse Rate 59 L 58 L 60 Respiratory Rate 17 11 L 7 L Blood Pressure 198/83 H 198/83 H 212/113 H Pulse Oximetry 93 93 93 03/06/21 12:30 03/06/21 13:00 03/06/21 13:01 Temperature Pulse Rate 59 L 59 L 59 L Respiratory Rate 12 8 L 7 L Blood Pressure 217/87 H Pulse Oximetry 91 91 92 03/06/21 13:30 03/06/21 13:31 03/06/21 14:00 Temperature Pulse Rate 66 64 66 Respiratory Rate 36 H 34 H 21 Blood Pressure 170/86 H 200/84 H Pulse Oximetry 88 L 89 L 93 Oxygen Delivery Method Room Air Narrative Exam Narrative: GEN: no acute distress HEENT: moist mucuous membranes, PERRL NECK: trachea midline, no JVD CV: regular rate and rhythm, no murmurs PULM: crackles bilaterally ABD: soft, nontender, nondistended, no organomegaly, normal bowel sounds EXT: warm and well perfused, with 1+ edema NEURO: awake, alert, oriented, no focal deficits PSYCH: pleasant, cooperative Objective Labs Result Diagrams: 03/06/21 11:25 03/06/21 11:25 Labs: Laboratory Results - last 24 hr 03/06/21 03/06/21 03/06/21 11:25 11:25 11:25 WBC 9.7 RBC 4.77 Hgb 13.1 Hct 38.8 MCV 81.4 MCH 27.5 MCHC 33.8 RDW 17.1 H Plt Count 298 Neut % (Auto) 84.1 H Lymph % (Auto) 12.0 L [place] % (Auto) 3.3 Eos % (Auto) 0.0 L Baso % (Auto) 0.6 Neut # (Auto) 8100 H Lymph # (Auto) 1200 [place] # (Auto) 300 Eos # (Auto) 0 Baso # (Auto) 100 D-Dimer 646 H ABG pH ABG pCO2 ABG pO2 ABG HCO3 ABG Total CO2 ABG O2 Saturation ABG Base Excess FiO2 Sodium 137 Potassium 3.1 L Chloride 97 L Carbon Dioxide 31 BUN 12 Creatinine 1.12 H Estimated GFR 46.5 L BUN/Creatinine Ratio 10.7 Glucose 147 H Lactate Calcium 9.3 Ferritin 46 Total Bilirubin 0.6 AST 26 ALT 13 Alkaline Phosphatase 70 Lactate Dehydrogenase 619 H Total Creatine Kinase 46 CK-MB (CK-2) TNP CK-MB (CK-2) Rel Index TNP Troponin I 0.025 C-Reactive Protein < 0.5 NT-Pro-B Natriuret Pep 3160 H Total Protein 7.9 Albumin 4.2 Globulin 3.7 Albumin/Globulin Ratio 1.1 Procalcitonin 0.05 Chlamy pneumoniae PCR Adenovirus (PCR) B. pertussis DNA (PCR) B.parapertussis DNA PCR Coronavirus OC43 (PCR) Coronavirus HKU1 (PCR) Coronavirus 229E (PCR) SARS-CoV-2 (PCR) Coronavirus NL63 (PCR) Human Metapneumovir PCR Influenza Type A (PCR) Influenza Type B (PCR) M. pneumoniae (PCR) Parainfluenza 1 (PCR) Parainfluenza 2 (PCR) Parainfluenza 3 (PCR) Parainfluenza 4 (PCR) RSV (PCR) Entero/Rhino (PCR) 03/06/21 03/06/21 03/06/21 11:25 11:30 11:30 WBC RBC Hgb Hct MCV MCH MCHC RDW Plt Count Neut % (Auto) Lymph % (Auto) [place] % (Auto) Eos % (Auto) Baso % (Auto) Neut # (Auto) Lymph # (Auto) [place] # (Auto) Eos # (Auto) Baso # (Auto) D-Dimer ABG pH ABG pCO2 ABG pO2 ABG HCO3 ABG Total CO2 ABG O2 Saturation ABG Base Excess FiO2 Sodium Potassium Chloride Carbon Dioxide BUN Creatinine Estimated GFR BUN/Creatinine Ratio Glucose Lactate 3.2 H Calcium Ferritin Total Bilirubin AST ALT Alkaline Phosphatase Lactate Dehydrogenase Total Creatine Kinase CK-MB (CK-2) CK-MB (CK-2) Rel Index Troponin I C-Reactive Protein NT-Pro-B Natriuret Pep Total Protein Albumin Globulin Albumin/Globulin Ratio Procalcitonin Chlamy pneumoniae PCR Not detected Adenovirus (PCR) Not detected B. pertussis DNA (PCR) Not detected B.parapertussis DNA PCR Not detected Coronavirus OC43 (PCR) Not detected Coronavirus HKU1 (PCR) Not detected Coronavirus 229E (PCR) Not detected SARS-CoV-2 (PCR) Positive H Detected H Coronavirus NL63 (PCR) Not detected Human Metapneumovir PCR Not detected Influenza Type A (PCR) Not detected Influenza Type B (PCR) Not detected M. pneumoniae (PCR) Not detected Parainfluenza 1 (PCR) Not detected Parainfluenza 2 (PCR) Not detected Parainfluenza 3 (PCR) Not detected Parainfluenza 4 (PCR) Not detected RSV (PCR) Not detected Entero/Rhino (PCR) Not detected 03/06/21 03/06/21 12:58 14:20 WBC RBC Hgb Hct MCV MCH MCHC RDW Plt Count Neut % (Auto) Lymph % (Auto) [place] % (Auto) Eos % (Auto) Baso % (Auto) Neut # (Auto) Lymph # (Auto) [place] # (Auto) Eos # (Auto) Baso # (Auto) D-Dimer ABG pH 7.49 H ABG pCO2 39.3 ABG pO2 79 L ABG HCO3 30 H ABG Total CO2 31 ABG O2 Saturation 96 ABG Base Excess 7.0 H FiO2 21 Sodium Potassium Chloride Carbon Dioxide BUN Creatinine Estimated GFR BUN/Creatinine Ratio Glucose Lactate 3.1 H Calcium Ferritin Total Bilirubin AST ALT Alkaline Phosphatase Lactate Dehydrogenase Total Creatine Kinase CK-MB (CK-2) CK-MB (CK-2) Rel Index Troponin I C-Reactive Protein NT-Pro-B Natriuret Pep Total Protein Albumin Globulin Albumin/Globulin Ratio Procalcitonin Chlamy pneumoniae PCR Adenovirus (PCR) B. pertussis DNA (PCR) B.parapertussis DNA PCR Coronavirus OC43 (PCR) Coronavirus HKU1 (PCR) Coronavirus 229E (PCR) SARS-CoV-2 (PCR) Coronavirus NL63 (PCR) Human Metapneumovir PCR Influenza Type A (PCR) Influenza Type B (PCR) M. pneumoniae (PCR) Parainfluenza 1 (PCR) Parainfluenza 2 (PCR) Parainfluenza 3 (PCR) Parainfluenza 4 (PCR) RSV (PCR) Entero/Rhino (PCR) Assessment & Plan Assessment & Plan narrative: Ms. Townsend is an 85W with PMH CAD, CHF, who presents with shortness of breath found to have COVID pneumonia and acute CHF exacerbation. 1. Acute hypoxemic respiratory failure -multifactorial etiology with evidence of both COVID pneumonia, acute on chronic CHF exacerbation -is COVID+, has chills, had sats in upper 80s when in the room -will be started on IV remdesivir, and IV dexamethasone -in addition has acute CHFpEF exacerbation, lower extremity edema noted, with pulmonary edema, and elevated BNP -did get IV lasix in ED -will trend troponins -continue IV lasix -order ECHO 2. CAD s/p stents -continue aspirin, plavix, ranolazine, statin, metoprolol, entresto 3. Depression/anxiety -continue escitalopram, prn ativan 4. Hypokalemia -replete PRN CODE: Full code, risks of poor prognosis and possible neurologic and cardiac catastrophe were discussed with patient in regards to coding someone who has COVID and is her age, she understands Proxy: Beronica Lam, daughter I have utilized all available resources to review update, and confirm his c urrent medications Time Spent With Patient Critical Care time: I spent a total of [] minutes of critical care time on this patient's care today; this time is exclusive of procedural time.
[2021-03-06 15:20] LABS: Appearance Urine UA CLEAR; Bilirubin Urine UA NEGATIVE (NEGATIVE); Color Urine UA YELLOW; Glucose Urine UA NEGATIVE (Negative); Ketones Urine UA NEGATIVE (NEGATIVE); Leukocyte Esterase Urine UA NEGATIVE (NEGATIVE); Nitrite Urine UA NEGATIVE (Negative); Occult Blood Urine UA NEGATIVE (Negative); Protein Urine UA NEGATIVE (Negative); Urobilinogen Urine UA 0.2 E.U./dL (0.2)
[2021-03-06 15:21] LABS: pH Urine UA 7.5 (4.5-8.0)
[2021-03-06 15:28] LABS: Bacteria Urine None Seen; Culture Indicated Urine Cult Not Indicated; RBC Urine None Seen (0-5/HPF); Squamous Epithelial Cell Urine 5-10 /HPF (0-5/HPF); WBC Urine None Seen (0-5/HPF)
[2021-03-06] MEDS: REMDESIVIR 200 MG in SODIUM CHLORIDE 0.9% 210 ML 250 ML IV (16:29)
[2021-03-06] MEDS: DEXAMETHASONE 10 MG/ML VIAL 6 MG IV (16:31)
[2021-03-06] MEDS: POTASSIUM CHLORIDE 20 MEQ/15 ML UDC 40 MEQ PO (16:31)
[2021-03-06] MEDS: carvediloL 3.125 MG TABLET 6.25 MG PO ×2 (17:20→20:01)
[2021-03-06] MEDS: AMLODIPINE 5 MG TABLET PO (17:20)
[2021-03-06 18:31] LABS: Lactate (Lactic Acid) 3.6 mmol/L (0.7-2.1)
--- NOTE | 2021-03-06 18:49 | PC.ADMIT ---
[id number] [facility] [address] Admission Note: Pt arrived from ED via gurney, assisted to bathroom then to bed with minimal difficulty. Placed pt on 2L NC for SpO2 86% with ambulation. Connected to monitoring equipment, oriented to room and call light system, educated not to get out of bed without assistance. Bed low and locked, call light within reach, will continue to monitor The patient,Lida Townsend,85 y/o, was given written information regarding hospital policies, unit procedures and contact persons. Patient's smoking status: Never smoker. Vital Signs - 8 hr 03/06/21 11:04 03/06/21 11:05 03/06/21 11:30 Temperature Pulse Rate 62 60 Respiratory Rate 24 Blood Pressure 193/113 H Pulse Oximetry 92 92 93 03/06/21 11:37 03/06/21 11:44 03/06/21 12:00 Temperature 98.3 F Pulse Rate 59 L 58 L 60 Respiratory Rate 17 11 L 7 L Blood Pressure 198/83 H 198/83 H 212/113 H Pulse Oximetry 93 93 93 03/06/21 12:30 03/06/21 13:00 03/06/21 13:01 Temperature Pulse Rate 59 L 59 L 59 L Respiratory Rate 12 8 L 7 L Blood Pressure 217/87 H Pulse Oximetry 91 91 92 03/06/21 13:30 03/06/21 13:31 03/06/21 14:00 Temperature Pulse Rate 66 64 66 Respiratory Rate 36 H 34 H 21 Blood Pressure 170/86 H 200/84 H Pulse Oximetry 88 L 89 L 93 03/06/21 15:51 03/06/21 16:28 03/06/21 17:20 Temperature 98.6 F Pulse Rate 69 68 Respiratory Rate 19 Blood Pressure 223/97 H 218/88 H Pulse Oximetry 97 97
[2021-03-06 20:13] LABS: Reflexed Lactate in 2 Hours Y
--- NOTE | 2021-03-06 21:22 | PC.NURSE ---
Repeat lactate came back at 5.[address] Trivedi and he is starting fluids and getting CTA of chest.
[2021-03-06 21:34] LABS: Lactate 2HR (Lactic Acid Rflx) 5.2 mmol/L (0.7-2.1)
[2021-03-06] MEDS: SODIUM CHLORIDE 0.9% 1,000 ML 1000 ML IV (21:44)
[2021-03-06] MEDS: ALPRAZolam 0.25 MG TABLET PO (23:16)
[2021-03-06 23:45] LABS: Troponin I 0.035 ng/mL (0.01-0.034)
[2021-03-07] VITALS (15 sets, daily range): BP systolic 144–195; BP diastolic 72–88; PULSE 65–77; RESP 16–19; TEMP 36.8–36.9; O2SAT 90–97
[2021-03-07] MEDS: FUROSEMIDE 40 MG/4 ML VIAL IV (08:22)
[2021-03-07] MEDS: carvediloL 3.125 MG TABLET 6.25 MG PO ×2 (08:22→20:54)
[2021-03-07] MEDS: ENOXAPARIN 40 MG/0.4 ML SYRINGE SUBCUT (08:22)
[2021-03-07] MEDS: DEXAMETHASONE 10 MG/ML VIAL 6 MG IV (08:22)
[2021-03-07 08:23] LABS: Add Manual Diff / Slide Review NO; Basophils Absolute Auto 100 /uL (0-100); Basophils Percent Auto 0.8 % (0-2); Eosinophils Absolute Auto 0 /uL (0-450); Eosinophils Percent Auto 0.4 % (2-4); Hematocrit 34.9 % (36-46); Hemoglobin 11.9 g/dL (12.0-16.0); Lymphocytes Absolute Auto 1500 /uL (1100-4500); Lymphocytes Percent Auto 16.3 % (25-40); Mean Corpuscular Hemoglobin 27.7 PG (26-34); Mean Corpuscular Volume 81.6 fL (80-100); Monocytes Absolute Auto 500 /uL (0-900); Monocytes Percent Auto 5.3 % (3-14); Neutrophils Absolute Auto 6900 /uL (1500-7000); Neutrophils Percent Auto 77.2 % (50-75); Platelet Count 264 X10^3/uL (150-400); Red Blood Cell Count 4.28 X10^6/uL (4.0-5.2); Red Cell Distribution Width 17.3 % (11.6-14.8)
[2021-03-07 08:35] LABS: Lactate (Lactic Acid) 1.9 mmol/L (0.7-2.1)
[2021-03-07 08:36] LABS: BUN Creatinine Ratio 15.8 (6-22); Blood Urea Nitrogen 15 mg/dL (7-17); Calcium 8.8 mg/dL (8.4-10.2); Carbon Dioxide 30 mmol/L (22-32); Chloride 100 mmol/L (98-107); Estimated Glomerular Filt Rate 56.2 mL/min (>60); Glucose 144 mg/dL (80-110); HEMOLYSIS < 15 (0-50); Potassium 3.1 mmol/L (3.4-5.1); Sodium 137 mmol/L (137-145)
[2021-03-07] MEDS: POTASSIUM CHLORIDE 20 MEQ TAB 40 MEQ PO (09:34)
[2021-03-07 09:36] LABS: Troponin I 0.029 ng/mL (0.01-0.034)
--- NOTE | 2021-03-07 10:57 | CM.DANOTE ---
DCP: Case received, EMR reviewed and met with patient. Called patient in her room via phone, since she is COVID+. Introduced self and role over the phone. Was able to obtain information regarding patient's baseline activity status prior to hospitalization, as well as her current living situation. DCP assessment completed with information currently available. Patient is an 85 year old female who admitted yesterday afternoon to the care of the hospitalist team. PCP: Dr. Zoe Bass. Payer: confirmed: Medicare/[employer]. Patient came to the hospital via private vehicle secondary to her having complications of COVID. Patient had already been diagnosed with COVID 19 on 02-04. had developed symptoms of worsening shortness of breath within the last 2-3 days. Patient also has history of cardiac disease as well. Her oxygen saturations had been in the upper 80s, and was Patient holds current diagnosis of acute hypoxemic resp. failure secondary to COVID/Bacterial Pneumonia. Called patient in her room. She is pleasant, alert and oriented. She resides in [place], is a , but lives with her son, Yuri. She also has a daughter named Beronica Lam, who is point of contact. She and her reside near , approximately a block away. Patient also has her grand children near by. She does not drive, stated, she never has. She does rely on family members to take her to appointments, errands, etc. She uses a FWW at her baseline. Patient indicated that she has lived in [place] for approximately 30 years, was in the . She is originally from [place]. She indicated that she had both Phfeizer vaccinations. She also indicated that her daughter and son-in-law had COVID. She thinks her son had it too, but not sure, because he won't go to the doctors. She indicated, she had just started feeling worse, to the point that she needed to come to the hospital. She stated that she has the oxygen on, but has been able to take it off if her sats improve. P: DCP to continue to follow. Patient should be able to go home when she is deemed medically stable, and no longer needs oxygen. Tanya Mccarthy RN/Central Office Frame Wirer Discharge Planning/Care Management CM Discharge Assessment Start: 03/07/21 10:50 Freq: Status: Active Protocol: Document 03/07/21 10:50 VM (Rec: 03/07/21 10:56 [id number]) Discharge Planning Assessment Assigned Foil Cutter Tanya Mccarthy RN/Central Office Frame Wirer Advance Directives? Yes Advance Directives on File Yes History Provided By Patient,Medical Record Prior Living Arrangements Mobile home Household Members children Type of transporation used prior to Relies on Others admit Comment Patient indicated, she has never driven. She relies on family members. Independent with ADL's Yes Is patient alert and oriented? Yes Needs Assistance With Home Chores / Shopping Caregiver for Another No DME Already Rented / Owned FWW / Walker Barriers to Discharge No Comment Patient lives with family, good support system. Discharge Plan Home Transportation Arrangement Family local and able to transport at d/c. Referrals Initiated None needed Whiteboard Updated in Patient Room with No name and ext. # of Foil Cutter Comment Have not entered room, patient is COVID positive. Review Status In Process Next Review Type Continued Stay Review
--- NOTE | 2021-03-07 14:46 | PC.NURSE ---
Day Shift Pt moved to room 222 from 231 at this time. All belongings with pt including cell phone, cell phone historic sites registrar, and clothing. RA all day today, SpO2 94%, decreases to 87% with activity but recovers quickly.
--- NOTE | 2021-03-07 16:42 | PM.PN.1 ---
Subjective Subjective Date Patient Seen: 03/07/21 Time Patient Seen: 08:00 Interval history: Trial of lasix did not do well. Did not improve her respiratory status and her lactate increased. She was given IV fluids and actually lactate resolved and she felt somewhat improved. She feels more energetic today. She still remains short of breath and is coughing. Exam Vital Signs (past 8 hours): - 03/07/21 09:37 03/07/21 10:00 03/07/21 12:00 Temperature Pulse Rate 68 74 Respiratory Rate 18 16 Blood Pressure 158/88 H Pulse Oximetry 90 L 94 92 03/07/21 14:28 03/07/21 15:43 Temperature 98.4 F Pulse Rate 71 73 Respiratory Rate 17 Blood Pressure 144/74 H Pulse Oximetry 90 L 94 Oxygen Delivery Method Nasal Cannula Oxygen Flow Rate 3 Narrative Exam Narrative: EN: no acute distress HEENT: moist mucuous membranes, PERRL NECK: trachea midline, no JVD CV: regular rate and rhythm, no murmurs PULM: crackles bilaterally ABD: soft, nontender, nondistended, no organomegaly, normal bowel sounds EXT: warm and well perfused, with no edema NEURO: awake, alert, oriented, no focal deficits PSYCH: pleasant, cooperative Objective Labs Result Diagrams: 03/07/21 08:10 03/07/21 08:10 Labs: Laboratory Results - last 24 hr 03/06/21 03/06/21 03/06/21 17:00 17:15 18:05 WBC RBC Hgb Hct MCV MCH MCHC RDW Plt Count Neut % (Auto) Lymph % (Auto) [place] % (Auto) Eos % (Auto) Baso % (Auto) Neut # (Auto) Lymph # (Auto) [place] # (Auto) Eos # (Auto) Baso # (Auto) Sodium Potassium Chloride Carbon Dioxide BUN Creatinine Estimated GFR BUN/Creatinine Ratio Glucose Lactate 3.6 H Calcium Magnesium Troponin I 0.030 Nasal Screen MRSA (PCR) Negative for mrsa 03/06/21 03/06/21 03/07/21 20:45 23:07 08:10 WBC 9.0 RBC 4.28 Hgb 11.9 L Hct 34.9 L MCV 81.6 MCH 27.7 MCHC 34.0 RDW 17.3 H Plt Count 264 Neut % (Auto) 77.2 H Lymph % (Auto) 16.3 L [place] % (Auto) 5.3 Eos % (Auto) 0.4 L Baso % (Auto) 0.8 Neut # (Auto) 6900 Lymph # (Auto) 1500 [place] # (Auto) 500 Eos # (Auto) 0 Baso # (Auto) 100 Sodium Potassium Chloride Carbon Dioxide BUN Creatinine Estimated GFR BUN/Creatinine Ratio Glucose Lactate 5.2 H* Calcium Magnesium Troponin I 0.035 H Nasal Screen MRSA (PCR) 03/07/21 03/07/21 03/07/21 08:10 08:10 09:16 WBC RBC Hgb Hct MCV MCH MCHC RDW Plt Count Neut % (Auto) Lymph % (Auto) [place] % (Auto) Eos % (Auto) Baso % (Auto) Neut # (Auto) Lymph # (Auto) [place] # (Auto) Eos # (Auto) Baso # (Auto) Sodium 137 Potassium 3.1 L Chloride 100 Carbon Dioxide 30 BUN 15 Creatinine 0.95 Estimated GFR 56.2 L BUN/Creatinine Ratio 15.8 Glucose 144 H Lactate 1.9 Calcium 8.8 Magnesium 2.0 Troponin I 0.029 Nasal Screen MRSA (PCR) [facility] Medical History Cardiac arrest Chest pain Coronary artery disease Diastolic heart failure Hyperlipidemia Hypertension Left hamstring muscle strain NSTEMI (non-ST elevated myocardial infarction) Skin cancer UTI (urinary tract infection) Surgical History H/O right heart catheterization History of appendectomy History of breast implant removal History of breast surgery History of cholecystectomy History of coronary artery stent placement History of total abdominal hysterectomy Family History Father Hypertension Diabetes mellitus Mother Hypertension [place] (myocardial infarction) Sister [place] (myocardial infarction) S/P CABG x 4 Social History household members: children Smoking Status: Never smoker Assessment & Plan Assessment & Plan narrative: Ms. Townsend is an 85W with PMH CAD, CHF, who presents with shortness of breath found to have COVID pneumonia and acute CHF exacerbation. 1. Acute hypoxemic respiratory failure from COVID pneumonia with cardiac demand ischemia -multifactorial etiology with evidence of both COVID pneumonia -chf exacerbation ruled out -is COVID+, has chills, had sats in upper 80s when in the room -will be started on IV remdesivir, and IV dexamethasone -did get IV lasix in ED -will trend troponins, peaked at 0.035 -dc ECHO 2. CAD s/p stents -continue aspirin, plavix, ranolazine, statin, metoprolol, entresto 3. Depression/anxiety -continue escitalopram, prn ativan 4. Hypokalemia -replete PRN CODE: Full code, risks of poor prognosis and possible neurologic and cardiac catastrophe were discussed with patient in regards to coding someone who has COVID and is her age, she understands Proxy: Beronica Lam, daughter Time Spent With Patient Critical Care time: I spent a total of [] minutes of critical care time on this patient's care today; this time is exclusive of procedural time. Quality VTE Deep Vein Thrombosis/Pulmonary Embolism Present on Admission: No
[2021-03-07] MEDS: REMDESIVIR 100 MG in SODIUM CHLORIDE 0.9% 230 ML 250 ML IV (17:44)
[2021-03-07] MEDS: ALPRAZolam 0.25 MG TABLET PO (21:00)
[2021-03-08] VITALS (15 sets, daily range): BP systolic 155–218; BP diastolic 67–92; PULSE 56–73; RESP 12–19; TEMP 36.3–37; O2SAT 96–98
[2021-03-08] MEDS: METOPROLOL IR 25 MG TABLET 37.5 MG PO ×2 (05:09→20:18)
[2021-03-08 07:07] LABS: Hematocrit 33.9 % (36-46); Hemoglobin 11.4 g/dL (12.0-16.0); Mean Corpuscular HGB Conc 33.8 % (30-36); Mean Corpuscular Hemoglobin 27.6 PG (26-34); Mean Corpuscular Volume 81.8 fL (80-100); Platelet Count 254 X10^3/uL (150-400); Red Blood Cell Count 4.14 X10^6/uL (4.0-5.2); Red Cell Distribution Width 17.3 % (11.6-14.8); White Blood Cell Count 9.9 X10^3/uL (4.5-11.0)
[2021-03-08 07:21] LABS: Blood Urea Nitrogen 22 mg/dL (7-17); Calcium 8.7 mg/dL (8.4-10.2); Carbon Dioxide 31 mmol/L (22-32); Chloride 100 mmol/L (98-107); Estimated Glomerular Filt Rate > 60.0 mL/min (>60); Glucose 148 mg/dL (80-110); HEMOLYSIS < 15 (0-50); Potassium 3.5 mmol/L (3.4-5.1); Sodium 136 mmol/L (137-145)
[2021-03-08] MEDS: DEXAMETHASONE 10 MG/ML VIAL 6 MG IV (09:58)
[2021-03-08] MEDS: carvediloL 3.125 MG TABLET 6.25 MG PO (09:58)
[2021-03-08] MEDS: ENOXAPARIN 40 MG/0.4 ML SYRINGE SUBCUT (09:59)
--- NOTE | 2021-03-08 14:44 | PC.NURSE ---
Dr Ramirez at bedside evaluating patient. Pt denies pain. C/o anxiety. Dr Ramirez aware of elevated blood pressures not controlled on current antihypertensives. Pt up in recliner. Uses BSC with stand by assist. No respiratory distress noted.
[2021-03-08] MEDS: REMDESIVIR 100 MG in SODIUM CHLORIDE 0.9% 230 ML 250 ML IV (17:46)
[2021-03-08] MEDS: ACETAMINOPHEN 325 MG TABLET 650 MG PO (17:53)
--- NOTE | 2021-03-08 18:03 | PM.PN.1 ---
Subjective Subjective Date Patient Seen: 03/08/21 Interval history: 85 y/o female admitted to the hospital with acute hypoxic respiratory failure secondary to Covid-19 pneumonia. Patient continues to have cough, appetite improving Exam Vital Signs (past 8 hours): - 03/08/21 13:00 03/08/21 13:57 Temperature 97.3 F L Pulse Rate 62 Respiratory Rate 16 Blood Pressure 191/67 H Pulse Oximetry 96 96 Oxygen Delivery Method Nasal Cannula Oxygen Flow Rate 3 Narrative Exam Narrative: ill appearing female in No acute distress Resp Other: Lungs: crackles in the bases Cardio Other: RRR nl S1 S2 GI Other: soft/ non tender/ nondistended Objective Labs Result Diagrams: 03/08/21 06:45 03/08/21 06:45 Labs: Laboratory Results - last 24 hr 03/08/21 03/08/21 06:45 06:45 WBC 9.9 RBC 4.14 Hgb 11.4 L Hct 33.9 L MCV 81.8 MCH 27.6 MCHC 33.8 RDW 17.3 H Plt Count 254 Sodium 136 L Potassium 3.5 Chloride 100 Carbon Dioxide 31 BUN 22 H Creatinine 0.88 Estimated GFR > 60.0 BUN/Creatinine Ratio 25.0 H Glucose 148 H Calcium 8.7 PFSH Medical History Cardiac arrest Chest pain Coronary artery disease Diastolic heart failure Hyperlipidemia Hypertension Left hamstring muscle strain NSTEMI (non-ST elevated myocardial infarction) Skin cancer UTI (urinary tract infection) Surgical History H/O right heart catheterization History of appendectomy History of breast implant removal History of breast surgery History of cholecystectomy History of coronary artery stent placement History of total abdominal hysterectomy Family History Father Hypertension Diabetes mellitus Mother Hypertension [place] (myocardial infarction) Sister [place] (myocardial infarction) S/P CABG x 4 Social History household members: children Smoking Status: Never smoker Assessment & Plan Assessment & Plan narrative: Acute hypoxemic respiratory failure from COVID pneumonia with cardiac demand ischemia -multifactorial etiology with evidence of both COVID pneumonia -chf exacerbation ruled out -is COVID+, has chills, had sats in upper 80s when in the room -will be started on IV remdesivir, and IV dexamethasone -did get IV lasix in ED -will trend troponins, peaked at 0.035 -dc ECHO -continue current treatment plan, continue to wean and taper oxygen 2. CAD s/p stents -continue aspirin, plavix, ranolazine, statin, metoprolol, entresto 3. Depression/anxiety -continue escitalopram, prn ativan 4. Hypokalemia -replete PRN Time Spent With Patient Critical Care time: I spent a total of [] minutes of critical care time on this patient's care today; this time is exclusive of procedural time. Quality VTE Deep Vein Thrombosis/Pulmonary Embolism Present on Admission: No
[2021-03-08] MEDS: RANOLAZINE 500 MG TAB.ER.12H PO (19:00)
[2021-03-08] MEDS: ATORVASTATIN 20 MG TABLET 80 MG PO (20:18)
[2021-03-08] MEDS: ALPRAZolam 0.25 MG TABLET PO (20:18)
[2021-03-09] VITALS (17 sets, daily range): BP systolic 154–201; BP diastolic 61–78; PULSE 53–67; RESP 16–20; TEMP 35.7–37.3; O2SAT 95–100
[2021-03-09] MEDS: ASPIRIN EC 81 MG TABLET PO (09:53)
[2021-03-09] MEDS: FUROSEMIDE 40 MG TABLET PO (09:53)
[2021-03-09] MEDS: METOPROLOL IR 25 MG TABLET 37.5 MG PO ×3 (09:53→20:36)
[2021-03-09] MEDS: PANTOPRAZOLE DR 40 MG TABLET PO (09:53)
[2021-03-09] MEDS: ESCITALOPRAM 10 MG TABLET 20 MG PO (09:54)
[2021-03-09] MEDS: ENOXAPARIN 40 MG/0.4 ML SYRINGE SUBCUT (09:54)
[2021-03-09] MEDS: DEXAMETHASONE 10 MG/ML VIAL 6 MG IV (09:54)
[2021-03-09] MEDS: RANOLAZINE 500 MG TAB.ER.12H PO ×2 (09:55→20:36)
[2021-03-09] MEDS: cloNIDine TTS 0.2 MG PATCH TOP (17:30)
[2021-03-09] MEDS: HYDRALAZINE 20 MG/ML VIAL 10 MG IV (17:30)
[2021-03-09] MEDS: REMDESIVIR 100 MG in SODIUM CHLORIDE 0.9% 230 ML 250 ML IV (17:30)
--- NOTE | 2021-03-09 17:41 | PM.PN.1 ---
Subjective Subjective Date Patient Seen: 03/09/21 Interval history: 85 y/o female vaccinated here with Covid-19 pneumonia with acute hypoxic respiratory failure. She complains of feeling very weak today. She is still short of breath. Her blood pressure remains elevated Exam Vital Signs (past 8 hours): - 03/09/21 11:00 03/09/21 12:00 03/09/21 13:00 Temperature 97.6 F Pulse Rate 57 L Respiratory Rate 18 Blood Pressure 194/72 H Pulse Oximetry 95 96 96 03/09/21 14:57 03/09/21 14:58 03/09/21 15:30 Temperature 99.1 F Pulse Rate 63 Respiratory Rate 18 Blood Pressure 194/70 H Pulse Oximetry 100 97 95 03/09/21 17:30 Temperature Pulse Rate 63 Respiratory Rate Blood Pressure 194/70 H Pulse Oximetry Oxygen Delivery Method Nasal Cannula Oxygen Flow Rate 1 Narrative Exam Narrative: Delightful elderly female lying in bed in no acute distress Resp Other: Lungs: decreased breath sounds Cardio Other: RRR nl Sl S2 GI Other: Abd: obese/ soft/ non tender/ non distended Extrem Other: 2+ edema Objective Labs Result Diagrams: 03/08/21 06:45 03/08/21 06:45 PFSH Medical History Cardiac arrest Chest pain Coronary artery disease Diastolic heart failure Hyperlipidemia Hypertension Left hamstring muscle strain NSTEMI (non-ST elevated myocardial infarction) Skin cancer UTI (urinary tract infection) Surgical History H/O right heart catheterization History of appendectomy History of breast implant removal History of breast surgery History of cholecystectomy History of coronary artery stent placement History of total abdominal hysterectomy Family History Father Hypertension Diabetes mellitus Mother Hypertension [place] (myocardial infarction) Sister [place] (myocardial infarction) S/P CABG x 4 Social History household members: children Smoking Status: Never smoker Assessment & Plan Assessment & Plan narrative: Acute hypoxemic respiratory failure from COVID pneumonia with cardiac demand ischemia -multifactorial etiology with evidence of both COVID pneumonia -chf exacerbation ruled out -is COVID+, has chills, had sats in upper 80s when in the room -will be started on IV remdesivir, and IV dexamethasone -did get IV lasix in ED -will trend troponins, peaked at 0.035 -dc ECHO -continue current treatment plan, continue to wean and taper oxygen -Physical therapy consult tomorrow as patient complains of feeling weak 2. CAD s/p stents -continue aspirin, plavix, ranolazine, statin, metoprolol, entresto 3. Depression/anxiety -continue escitalopram, prn ativan 4. Hypokalemia -replete PRN 5. Hypertension- Hydralazine prn, will add clonidine Time Spent With Patient Critical Care time: I spent a total of [] minutes of critical care time on this patient's care today; this time is exclusive of procedural time. Quality VTE Deep Vein Thrombosis/Pulmonary Embolism Present on Admission: No
[2021-03-09] MEDS: ATORVASTATIN 20 MG TABLET 80 MG PO (20:36)
[2021-03-09] MEDS: ALPRAZolam 0.25 MG TABLET PO (21:01)
[2021-03-10] VITALS (14 sets, daily range): BP systolic 162–203; BP diastolic 60–77; PULSE 56–69; RESP 12–18; TEMP 36.3–37; O2SAT 92–97
[2021-03-10] MEDS: ALPRAZolam 0.5 MG TABLET PO (04:00)
[2021-03-10] MEDS: ASPIRIN EC 81 MG TABLET PO (08:46)
[2021-03-10] MEDS: ESCITALOPRAM 10 MG TABLET 20 MG PO (08:46)
[2021-03-10] MEDS: FUROSEMIDE 40 MG TABLET PO (08:46)
[2021-03-10] MEDS: PANTOPRAZOLE DR 40 MG TABLET PO (08:47)
[2021-03-10] MEDS: METOPROLOL IR 25 MG TABLET 37.5 MG PO ×2 (08:48→14:49)
[2021-03-10] MEDS: DEXAMETHASONE 10 MG/ML VIAL 6 MG IV (08:49)
[2021-03-10] MEDS: RANOLAZINE 500 MG TAB.ER.12H PO ×2 (08:49→20:46)
[2021-03-10] MEDS: ENOXAPARIN 40 MG/0.4 ML SYRINGE SUBCUT (08:50)
[2021-03-10 09:16] LABS: BUN Creatinine Ratio 33.8 (6-22); Blood Urea Nitrogen 26 mg/dL (7-17); Calcium 8.4 mg/dL (8.4-10.2); Carbon Dioxide 30 mmol/L (22-32); Chloride 100 mmol/L (98-107); Estimated Glomerular Filt Rate > 60.0 mL/min (>60); Glucose 126 mg/dL (80-110); HEMOLYSIS 31 (0-50); Potassium 4.2 mmol/L (3.4-5.1); Sodium 134 mmol/L (137-145)
[2021-03-10 09:34] LABS: Add Manual Diff / Slide Review NO; Basophils Absolute Auto 100 /uL (0-100); Basophils Percent Auto 0.6 % (0-2); Eosinophils Absolute Auto 0 /uL (0-450); Eosinophils Percent Auto 0.1 % (2-4); Hematocrit 35.7 % (36-46); Hemoglobin 11.7 g/dL (12.0-16.0); Lymphocytes Absolute Auto 2400 /uL (1100-4500); Lymphocytes Percent Auto 22.9 % (25-40); Mean Corpuscular HGB Conc 32.9 % (30-36); Mean Corpuscular Hemoglobin 27.4 PG (26-34); Mean Corpuscular Volume 83.3 fL (80-100); Monocytes Absolute Auto 900 /uL (0-900); Monocytes Percent Auto 8.6 % (3-14); Neutrophils Absolute Auto 7200 /uL (1500-7000); Neutrophils Percent Auto 67.8 % (50-75); Red Blood Cell Count 4.28 X10^6/uL (4.0-5.2); Red Cell Distribution Width 18.4 % (11.6-14.8); White Blood Cell Count 10.6 X10^3/uL (4.5-11.0)
[2021-03-10 10:19] LABS: Platelet Count 235 X10^3/uL (150-400)
--- NOTE | 2021-03-10 11:20 | PC.NURSE ---
AM shift note. pt AO and receptive to care. pt started shift with hospital's CPAP on with 2L O2 and has since transitions to [facility] 1.5L satting 97%. Lungs diminished but clear this shift, although pt reporting she can hear some raddling to her left side. Intermittent, productive cough. pt was anxious during NOC shift but no signs so far and in positive spirits on positive thoughts on her recovery. pt has been hypertensive and improving with consistent cardiac medication regimen, most recent BP of 173/60 post AM medications. Tele: SR shanon with prolong QT. Right wrist PIV flushing and tolerating IV medications. pt up 1PA (more like SBA) to BSC and feeling steady on her feel although she reports feeling weaker than her normal self. pt able to perform ADL's IND with set up assist.
--- NOTE | 2021-03-10 12:05 | PT.IIE ---
Current Diagnoses COVID-19 (03/06/21) Surgical History (Last Reviewed 03/06/21 @ 15:21 by Edgar Simmons MD) History of breast implant removal Medical History (Last Reviewed 03/06/21 @ 15:21 by Edgar Simmons MD) Cardiac arrest Chest pain Coronary artery disease Diastolic heart failure Hyperlipidemia Hypertension Left hamstring muscle strain NSTEMI (non-ST elevated myocardial infarction) Skin cancer UTI (urinary tract infection) Physical Therapy Inpatient Evaluation/Re-Eval M1 PT/OT-IP Prior Functional Status Start: 03/10/21 13:40 Freq: NEEDED Status: Active Protocol: Document 03/10/21 12:05 AB (Rec: 03/10/21 13:56 AB [id number]) Medical Review Prior Functional Status Medical History Reviewed Yes Communication able to make needs known Mobility and Gait pt stated that she is modified independent with all mobilities and ambulation without AD but occasionally uses a 4WW due to L knee giving out Social History Household Members children Living Arrangements Mobile home Number of Floors (Floors) One Floor Number of Stairs To Enter/Railing? 4 steps B rails Home Environment Walk in Shower Home Equipment Four Wheel Walker,Bedside Commode,Shower Seat with Backrest,Grab Bars Near Toilet ,Grab Bars In Shower Additional Social History Comment pt stated that her son lives with her but son goes to work; pt's daughter who lives ~ 2 streets away may also assist her pt has 1 step to get into the toilet level has an adjustable bed and usually has the HOB elevate M2 PT-IP Current Condition Start: 03/10/21 13:40 Freq: NEEDED Status: Active Protocol: Document 03/10/21 12:05 AB (Rec: 03/10/21 13:56 AB [email or web address]) Physical Therapy Current Condition Current Condition Evaluation Date 03/10/21 Treatment Diagnosis CHF; COVID +; difficulty in walking Onset Date 03/06/21 M3 PT-IP Subjective Start: 03/10/21 13:40 Freq: NEEDED Status: Active Protocol: Document 03/10/21 12:05 AB (Rec: 03/10/21 13:56 AB [email or web address]) Subjective Physical Therapy Visit Type Type Initial Evaluation Visit Start Time 12:05 Visit Stop Time 12:46 Total Visit Minutes 41 Number of RECEPTION CLERK Visits 0 Physical Therapy Visit Comments Patient Comments pt is agreeable to do PT M4 PT-IP Mobility and Gait Start: 03/10/21 13:40 Freq: NEEDED Status: Active Protocol: Document 03/10/21 12:05 AB (Rec: 03/10/21 13:56 AB [email or web address]) PT-Bed Mobility Assessment Supine to Sit Supine to Sit Standby Assistance Sit to Supine Sit to Supine Standby Assistance,Bedrails PT-Transfer Assessment Sit to and From Stand Sit to and from Stand Contact Guard Assistance,1 Person Assistance,Use of Upper Extremities Equipment Transfer Assistive Device Gait Belt,Front Wheeled Walker Orthotic/Prosthetic Devices or Brace: No Transfers Transfer Destination Bed,Chair,Toilet Transfer Technique ambulated Transfer Ability Level of Assist Contact Guard Assistance, Minimal Assistance,1 Person Assistance,Use of Upper Extremities Comments Mobility Comments pt sitting on chair and agreeable to do PT. BP in sittin/62. O2 sat 95% with 1 1/2L/min o2 and HR 55- 57 bpm. completed sit to stand CGA and requested to use the toilet. ambulated ~ 10 ft using FWW CGA. required frequent and increase rest breaks in between tasks with (+) SOB and c/o overall weakness and muscle aches. completed sit to stand from the toilet using grab bar min A and cues and ambulated towards the bed ~ 20 ft using FWW CGA to min A and cues and standing rest breaks. completed sit<>supine SBA and cues. pt used bed rail to sit up. completed step transfer to chair using fWW CGA to min A and cues. O2 checked: 95%. positioned pt on chair. call light and table placed within reach. Gait Assessment Gait Gait Assistance Required: Contact Guard Assist,Minimum Assistance Distance (Feet) 20 Able to Maintain Weight Bearing Status Yes During Gait Assistive Devices Assistive Device Gait Belt,Front Wheeled Walker Orthotic/Prosthetic Devices or Brace: No Gait Deviations General Gait Pattern Ataxic,Decreased Feet Clearance Factors Limiting Gait Function Factors Limiting Gait Function Decreased Activity Tolerance, Decreased Strength,Poor Balance,Poor Safety Awareness, Respiratory Distress Comments Gait Comments pls refer to mobility section for details PT-Balance Assessment Sitting Balance and Reactions Static Sitting Balance Ability Good Dynamic Sitting Balance Ability Fair Standing Balance and Reactions Static Standing Balance Ability Fair Dynamic Standing Balance Ability Fair Device Used FWW M5 PT-IP Objective Assessments Start: 03/10/21 13:40 Freq: NEEDED Status: Active Protocol: Document 03/10/21 12:05 AB (Rec: 03/10/21 13:56 AB [email or web address]) Orientation Orientation/Cognition Level of Alertness Alert Orientation Name,Place,Situation Language Function Ability No Deficits Noted Safety Awareness Understands Safety Issues Memory Description No Deficits Noted Gross Range of Motion Lower Extremity ROM Assessment Within Functional Limits Strength Lower Extremity Strength Assessment Bilaterally Impaired Hip 3+/5 Knee 3+/5 Coordination Assessment Gross Coordination Gross Coordination WNL Muscle Tone Muscle Tone WNL Yes M6 PT-IP Treatment Start: 03/10/21 13:40 Freq: NEEDED Status: Active Protocol: Document 03/10/21 12:05 AB (Rec: 03/10/21 13:56 AB [email or web address]) Physical Therapy Treatment Education Education Provided Safety M7 PT-IP Assessment and Plan Start: 03/10/21 13:40 Freq: NEEDED Status: Active Protocol: Document 03/10/21 12:05 AB (Rec: 03/10/21 13:56 AB [email or web address]) PT Summary Assessment and Plan Potential Rehabilitation Potential Fair Status of Condition at Evaluation Evolving Summary Impairments Pain,ROM,Strength,Balance, Coordination,Sensation,Tone, Cognition,Bed Mobility, Transfers,Gait,Activity Tolerance Assessment Summary pt requiring CGA to min A with mobility using FWW and easily gets fatigue requiring increase rest breaks in between tasks. O2 sat 95% with 1 1/2L/min O2 on but with (+) SOB during mobility. will continue PT to improve mobility and activity tolerance to improve independence. will continue to assess progress. Goals Bed Mobility Goal Independent Transfer Goal Independent,Front Wheeled Walker,Four Wheeled Walker Gait Goal Independent,Front Wheel Walker ,Four Wheel Walker Gait Distance 150 Other Goals up/down 4 steps B rails SBA Days to Meet Goals 10 Frequency of Treatment Frequency Of Treatment Once a Day Treatment Plan Physical Therapy Treatment Plan Bed Mobility Training,Transfer Training,Gait Training, Therapeutic Exercise,Balance Retraining,Post Op Education, Discharge Planning,Hot or Cold Pack,Neuromuscular Re-ed, Coordination Retraining,Manual Therapy Other Recommendations and Next Treatment ambulation Focus Precautions Other Precautions Covid precautions Recommendations To Nursing Amount of Assist Needed 1 Person Assist Discharge Recommendations PT Discharge Recommendations Home with 24/7 Assist Available,Home Health Equipment Needed for Home Before FWW if not safe with 4WW Discharge Transportation Needs at Discharge Private Vehicle,Wheelchair/ Cabulance
[2021-03-10] MEDS: REMDESIVIR 100 MG in SODIUM CHLORIDE 0.9% 230 ML 250 ML IV (17:19)
--- NOTE | 2021-03-10 17:36 | P.PN_ITS ---
Subjective Subjective Date Patient Seen: 03/10/21 Interval history: 85-year-old female admitted to the hospital with COVID pneumonia. Patient reports she continues to feel short of breath. Complains of feeling very weak. She is not comfortable with returning home at this point given her weakness and shortness of breath. Exam Vital Signs (past 8 hours): - 03/10/21 09:56 03/10/21 13:00 03/10/21 17:29 Temperature 97.5 F L 97.3 F L Pulse Rate 56 L 65 Respiratory Rate 16 17 Blood Pressure 162/66 H 185/73 H Pulse Oximetry 97 97 95 Oxygen Delivery Method Nasal Cannula Oxygen Flow Rate 1 Narrative Exam Narrative: Ill-appearing female lying in bed Resp Other: Lungs: Decreased breath sounds but clear to auscultation Cardio Other: Cardiac exam: Regular rate and rhythm normal S1-S2 GI Other: Abdomen: Soft nontender nondistended Extrem Other: Extremity 1+ edema Objective Labs Result Diagrams: 03/10/21 08:40 03/10/21 08:40 Labs: Laboratory Results - last 24 hr 03/10/21 03/10/21 08:40 08:40 WBC 10.6 RBC 4.28 Hgb 11.7 L Hct 35.7 L MCV 83.3 MCH 27.4 MCHC 32.9 RDW 18.4 H Plt Count 235 Neut % (Auto) 67.8 Lymph % (Auto) 22.9 L [place] % (Auto) 8.6 Eos % (Auto) 0.1 L Baso % (Auto) 0.6 Neut # (Auto) 7200 H Lymph # (Auto) 2400 [place] # (Auto) 900 Eos # (Auto) 0 Baso # (Auto) 100 Sodium 134 L Potassium 4.2 Chloride 100 Carbon Dioxide 30 BUN 26 H Creatinine 0.77 Estimated GFR > 60.0 BUN/Creatinine Ratio 33.8 H Glucose 126 H Calcium 8.4 PFSH Medical History Cardiac arrest Chest pain Coronary artery disease Diastolic heart failure Hyperlipidemia Hypertension Left hamstring muscle strain NSTEMI (non-ST elevated myocardial infarction) Skin cancer UTI (urinary tract infection) Surgical History H/O right heart catheterization History of appendectomy History of breast implant removal History of breast surgery History of cholecystectomy History of coronary artery stent placement History of total abdominal hysterectomy Family History Father Hypertension Diabetes mellitus Mother Hypertension [place] (myocardial infarction) Sister [place] (myocardial infarction) S/P CABG x 4 Social History household members: children Smoking Status: Never smoker Assessment & Plan Assessment & Plan narrative: Acute hypoxemic respiratory failure from COVID pneumonia with cardiac demand ischemia -multifactorial etiology with evidence of both COVID pneumonia -chf exacerbation ruled out -is COVID+, has chills, had sats in upper 80s when in the room -will be started on IV remdesivir, and IV dexamethasone -did get IV lasix in ED -will trend troponins, peaked at 0.035 - ECHO -continue current treatment plan, continue to wean and taper oxygen -Physical therapy consult tomorrow as patient complains of feeling weak -continue taper oxygen, patient will complete both remdesivir and Decadron tomorrow -if she remains hypoxic will continue Decadron for total of 10 days or until discharge 2. CAD s/p stents -continue aspirin, plavix, ranolazine, statin, metoprolol, entresto 3. Depression/anxiety -continue escitalopram, prn ativan 4. Hypokalemia -replete PRN 5. Hypertension- Hydralazine prn, will add clonidine Blood pressure poorly controlled Increase metoprolol Anticipate discharge home in 1-2 days Time Spent With Patient Critical Care time: I spent a total of [] minutes of critical care time on this patient's care today; this time is exclusive of procedural time. Quality VTE Deep Vein Thrombosis/Pulmonary Embolism Present on Admission: No
[2021-03-10] MEDS: METOPROLOL IR 50 MG TABLET PO (20:44)
[2021-03-10] MEDS: ATORVASTATIN 20 MG TABLET 80 MG PO (20:44)
[2021-03-10] MEDS: ALPRAZolam 0.25 MG TABLET PO (20:44)
[2021-03-11] VITALS (9 sets, daily range): BP systolic 148–207; BP diastolic 44–80; PULSE 50–67; RESP 17–20; TEMP 36–36.3; O2SAT 94–97
[2021-03-11] MEDS: ESCITALOPRAM 10 MG TABLET 20 MG PO (08:38)
[2021-03-11] MEDS: METOPROLOL IR 50 MG TABLET PO ×2 (08:38→15:49)
[2021-03-11] MEDS: ASPIRIN EC 81 MG TABLET PO (08:38)
[2021-03-11] MEDS: FUROSEMIDE 40 MG TABLET PO (08:38)
[2021-03-11] MEDS: PANTOPRAZOLE DR 40 MG TABLET PO (08:38)
[2021-03-11] MEDS: ENOXAPARIN 40 MG/0.4 ML SYRINGE SUBCUT (08:39)
[2021-03-11] MEDS: RANOLAZINE 500 MG TAB.ER.12H PO (08:40)
--- NOTE | 2021-03-11 11:15 | PT.IPTN ---
Current Diagnoses COVID-19 (03/06/21) Physical Therapy Treatment Note M2 PT-IP Current Condition Start: 03/10/21 13:40 Freq: NEEDED Status: Active Protocol: Document 03/10/21 12:05 AB (Rec: 03/10/21 13:56 AB [email or web address]) Physical Therapy Current Condition Current Condition Evaluation Date 03/10/21 Treatment Diagnosis CHF; COVID +; difficulty in walking Onset Date 03/06/21 M3 PT-IP Subjective Start: 03/10/21 13:40 Freq: NEEDED Status: Active Protocol: Document 03/11/21 11:15 AB (Rec: 03/11/21 12:59 AB [email or web address]) Subjective Physical Therapy Visit Type Type Treatment Note Visit Start Time 11:15 Visit Stop Time 12:00 Total Visit Minutes 45 Number of BULK DRIVER Visits 0 Physical Therapy Visit Comments Patient Comments agreeable to do PT; requested to use the toilet M4 PT-IP Mobility and Gait Start: 03/10/21 13:40 Freq: NEEDED Status: Active Protocol: Document 03/11/21 11:15 AB (Rec: 03/11/21 12:59 AB [email or web address]) PT-Bed Mobility Assessment Supine to Sit Supine to Sit Standby Assistance PT-Transfer Assessment Sit to and From Stand Sit to and from Stand Standby Assistance,Contact Guard Assistance,1 Person Assistance,Use of Upper Extremities Equipment Transfer Assistive Device Gait Belt,Front Wheeled Walker Orthotic/Prosthetic Devices or Brace: No Transfers Transfer Destination Toilet Transfer Technique ambulated Transfer Ability Level of Assist Standby Assistance,Contact Guard Assistance,1 Person Assistance,Use of Upper Extremities Comments Mobility Comments pt in room supine in bed and requested to use the toilet. pt without O2 on and stated that the doctor took it off. O2 sat checked on room air: 95 %. pt completed supine to sit SBA. able to sit on EOB SBA. O2 sat at room air: 90%. sit to stand SBA to cGA and pt ambulated to the toilet using FWW SBA to CGA ~ 25 ft. slow shaylee and standing rest breaks in between and cued for deep breathing. O2 sat 90-97 % at RA. pt completed sit to stand from the toilet using grab bar CGA and ambulated towards the sink using FWW SBA to occasional CGA. pt was able to maintain standing leaning against the counter SBA while completing handwashing. pt ambulated to the chair ~ 8 ft using fWW SBA to CGA. (+) SOB and pt stated that she needs to take a rest. o2 sat 90%. pt rested for a few minutes and agreed to ambulate again. completed ~ 30 ft using FWW SBA to CGA. O2 sat at end of ambulation: 88% and <10 sec to recover to 90%. pt agreed to sit up on chair for lunch. positioned pt on chair. call light and table placed within reach. informed nurse and doctor regarding pt's mobility. Gait Assessment Gait Gait Assistance Required: Standby Assistance,Contact Guard Assist Distance (Feet) 30 Able to Maintain Weight Bearing Status Yes During Gait Assistive Devices Assistive Device Gait Belt,Front Wheeled Walker Orthotic/Prosthetic Devices or Brace: No Gait Deviations General Gait Pattern Decreased Stride Length, Decreased Feet Clearance Factors Limiting Gait Function Factors Limiting Gait Function Decreased Activity Tolerance, Decreased Strength,Poor Balance,Respiratory Distress M5 PT-IP Objective Assessments Start: 03/10/21 13:40 Freq: NEEDED Status: Active Protocol: Document 03/10/21 12:05 AB (Rec: 03/10/21 13:56 AB [email or web address]) Orientation Orientation/Cognition Level of Alertness Alert Orientation Name,Place,Situation Language Function Ability No Deficits Noted Safety Awareness Understands Safety Issues Memory Description No Deficits Noted Gross Range of Motion Lower Extremity ROM Assessment Within Functional Limits Strength Lower Extremity Strength Assessment Bilaterally Impaired Hip 3+/5 Knee 3+/5 Coordination Assessment Gross Coordination Gross Coordination WNL Muscle Tone Muscle Tone WNL Yes M6 PT-IP Treatment Start: 03/10/21 13:40 Freq: NEEDED Status: Active Protocol: Document 03/11/21 11:15 AB (Rec: 03/11/21 12:59 AB [email or web address]) Physical Therapy Treatment Education Education Provided Safety M7 PT-IP Assessment and Plan Start: 03/10/21 13:40 Freq: NEEDED Status: Active Protocol: Document 03/11/21 11:15 AB (Rec: 03/11/21 12:59 AB [email or web address]) PT Summary Assessment and Plan Potential Rehabilitation Potential Fair Summary Impairments Pain,ROM,Strength,Balance, Coordination,Sensation,Tone, Cognition,Bed Mobility, Transfers,Gait,Activity Tolerance Progress Towards Goals Slow Progress due to Medical Issues,Slow Progress due to Activity Tolerance Assessment Summary pt improving slowly with mobility but continues to have decrease activity tolerance affecting independence. pt stated that she is going home and son will take a few weeks off to assist her at home. will continue to assess progress. Goals Bed Mobility Goal Independent Transfer Goal Independent,Front Wheeled Walker,Four Wheeled Walker Gait Goal Independent,Front Wheel Walker ,Four Wheel Walker Gait Distance 150 Other Goals up/down 4 steps B rails SBA Days to Meet Goals 10 Frequency of Treatment Frequency Of Treatment Once a Day Treatment Plan Physical Therapy Treatment Plan Bed Mobility Training,Transfer Training,Gait Training, Therapeutic Exercise,Balance Retraining,Post Op Education, Discharge Planning,Hot or Cold Pack,Neuromuscular Re-ed, Coordination Retraining,Manual Therapy Other Recommendations and Next Treatment ambulation Focus Precautions Other Precautions Covid precautions Recommendations To Nursing Amount of Assist Needed 1 Person Assist Discharge Recommendations PT Discharge Recommendations Home with 24/7 Assist Available,Home Health Equipment Needed for Home Before FWW if not safe with 4WW Discharge Transportation Needs at Discharge Private Vehicle,Wheelchair/ Cabulance
--- NOTE | 2021-03-11 11:49 | CM.DPNOTE ---
DC Note According to Dr Ramirez, patient will be discharged home today. Placed call into patient's room; patient continues to be concerned that she is very weak today, however, does describe a support network between her son, dtr/ CARLOS that will cover 05/12 care and assist as needed. PT has cleared patient for return home w/assist. Patient has/uses a walker at baseline, states she takes frequent rest breaks using her 4WW w/seat during ambulation and will continue to do this. Patient also owns a BSC to place near her bed. Patient agreeable to HH w/no agency preference. Family to transport home. Working on HH referral now, began w/ [facility] which is out for start of care until Monday, now awaiting return call from jacy SIMMONS re availability in [place]. DENI
--- NOTE | 2021-03-11 12:23 | P.DS_ITS ---
History of Present Illness History of Present Illness Date Patient Seen: 03/11/21 Chief complaint: Covid Pneumonia- worsening Narrative: Ms. Townsend is a 85W with PMH CAD s/p stents, CHFpEF, HTN, HL, h/o cardiac arrest who comes to the hospital with shortness of breath. She has been vaccinated against COVID. Last month she was diagnosed with COVID and felt quite poorly for weeks, but said she mostly recovered from this infection. Over the last couple days she notes she is fatigued, short of breath with minimal activity. She has noted a productive cough with some sputum, she has noted shaking chills. No fevers. No chest pain. She has not noted fluid retention or weight gain. In the ED, workup was done vitals notable for afebrile, mild bradycardia in the 50s, elevated blood pressure, and initially normal O2 saturation. She did desat with activity into the 80s, and when I was in the room with air she would desat to the 80s on room air. Labs notable for WBC 9.7, hgb 13.1, plts 298, D-dimer 646, sodium 137, k 3.1, creatinine 1.12, LDH 619, trop 0.025, BNP 3160, procal 0.05, lactate 3.2. COVID+. Chest xray showed diffuse interstitial prominence, left sided pleural effusion, and cardiomegaly. She was ordered IV lasix, remdesivir, dexamethasone and admitted for further treatment. Discharge Providers Provider Date of admission: 03/06/21 14:34 Discharge Date: 03/11/21 Primary care physician: Zoe Bass PA-C Consults: 03/09/21 17:41 Consult to Physical Therapy Evaluate & Treat Comment: weakness Physician Instructions: Evaluate and Treat 03/11/21 10:56 Consult to Respiratory Therapy Evaluate & Treat Comment: home o@ eval Physician Instructions: Evaluate and treat Discharge provider: Nikkie Ramirez MD Summary Hospital Course Discharge Diagnosis: 1. Covid-19 Pneumonia 2. CAD 3. Depression/anxiety 4. Hypertension Hospital Course: The patient is an 85-year-old female who was admitted to the hospital for COVID pneumonia. She was hypoxic, symptomatic with chills, as such was started on IV did remdesivir and Decadron. She also received IV Lasix in the emergency department. The patient had improvement of her oxygenation she was able to be tapered off oxygen on room air. With activity she did desaturate to 88% however with 12nd she was able to recover. She was quite concerned about desaturation when she returned home. As such she will be sent home with oxygen for activity. The patient was somewhat hypertensive during the hospital stay her medications were adjusted accordingly. She has complained of feeling weak. As such home PT OT and a nursing evaluation will be made for her. Patient is deemed appropriate for discharge and arrangements will be made for her to discharge home. Status at Discharge Cognitive/behavioral status at discharge: oriented Functional status at discharge: uses cane/walker Overall status at discharge: patient is progressing back to baseline Exam Vital Signs (past 8 hours): - 03/11/21 05:00 03/11/21 06:56 03/11/21 09:00 Temperature 97.3 F L Pulse Rate 56 L Respiratory Rate 18 Blood Pressure 207/73 H Pulse Oximetry 96 96 97 03/11/21 09:48 03/11/21 11:15 Temperature 97.1 F L Pulse Rate 55 L Respiratory Rate 18 Blood Pressure 160/58 H Pulse Oximetry 97 95 Oxygen Delivery Method Nasal Cannula Oxygen Flow Rate 1.5 Narrative Exam Narrative: pleasant female resting in bed Resp Other: Lungs: decreased breath sounds Cardio Other: RRR nl Sl S2 GI Other: abd: soft/ non tender/ non distended Extrem Other: No Edema Objective Labs Result Diagrams: 03/10/21 08:40 03/10/21 08:40 [facility] Medical History Cardiac arrest Chest pain Coronary artery disease Diastolic heart failure Hyperlipidemia Hypertension Left hamstring muscle strain NSTEMI (non-ST elevated myocardial infarction) Skin cancer UTI (urinary tract infection) Surgical History H/O right heart catheterization History of appendectomy History of breast implant removal History of breast surgery History of cholecystectomy History of coronary artery stent placement History of total abdominal hysterectomy Family History Father Hypertension Diabetes mellitus Mother Hypertension CA (myocardial infarction) Sister CA (myocardial infarction) S/P CABG x 4 Social History household members: children Smoking Status: Never smoker Discharge Assessment & Plan Assessment and Plan Assessment: Acute Respiratory Failure secondary to Covid-19 CAD , history of stents depression/anxieity hypertension Plan of Treatment: Discharge home on oxygen Medications as prescribed Follow up with PCP next week Discharge Plan Discharge Plan Patient Disposition: Home Health Service Discharge orders & Medications Prescriptions: New metoprolol tartrate 50 mg Tablet 50 mg PO TID Qty: 60 RF: 0 Continued aspirin 81 MG tablet,delayed release (DR/EC) 81 mg PO DAILY Qty: 0 RF: 0 ranolazine 500 mg tablet extended release 12 hr 500 mg PO BID RF: 0 furosemide 40 mg tablet 40 mg PO DAILY Qty: 30 RF: 0 pantoprazole 40 mg Tablet,Delayed Release (Dr/Ec) 40 mg PO DAILY RF: 0 escitalopram oxalate 20 mg Tablet 20 mg PO DAILY RF: 0 alprazolam 0.5 mg tablet 0.5 mg PO Q6HR RF: 0 nitroglycerin 0.4 mg tablet, sublingual 1 tab sublingual [id number] PRN (Reason: Chest Pain) RF: 0 rosuvastatin 40 mg tablet 40 mg PO QPM RF: 0 Discontinued metoprolol tartrate 25 mg tablet 37.5 mg PO BID RF: 0 Follow up/Referrals: Zoe Bass PA-C [Primary Care Provider] - Diet/Activity/Treatments Diet: Low-sodium and Low-cholesterol Discharge Data Primary Care Provider: Zoe Bass Quality VTE Deep Vein Thrombosis/Pulmonary Embolism Present on Admission: No
--- NOTE | 2021-03-11 14:26 | CM.DPNOTE ---
Faxed referral packet to [facility] and received fax conf. Kelly Em CM Asst.
--- NOTE | 2021-03-11 14:43 | PC.NURSE ---
A&Ox4. Hypertensive in the 200's/ 80's this morning. BP dropped down to 160/58 after morning BP meds. No IV access. On 2L nasal cannula sating in the low to mid 90's. Sats drop to high 80's when walking to toilet or transferring to chair. Was evaluated by RT for at home O2. Denies pain. Call light within reach, bed low. Will be discharging this evening when her son gets off from work and is able to come pick her up.
--- NOTE | 2021-03-11 16:24 | PC.NURSE ---
Discharge Note- Patient discharged home. Discharge instructions and education reviewed with patient. Patient assisted with dressing and packing up personal belongings. Patient sent home with O2 tank and Home O2 services to come to patient [facility]. Reviewed O2 instructions with patient and daughter and son in law. Patient left via wheel chiar to private car at 1620.
== END 2021-03-11 16:20 | disposition home or self-care (01) | DRG 177 ==
LOC: ED 14:23 → AC 15:41 → ICU 03-07 08:22 → AC 03-07 21:40 → ICU 03-08 09:20 → AC 03-08 09:21
PROVIDERS: Family Medicine; Internal Medicine; Admitting Provider Internal Medicine; Emergency Provider Emergency Medicine; Family Provider Internal Medicine; PCP Physician Assistant Medical; Referring Provider Emergency Medicine; Visit Provider Internal Medicine
DX: U07.1 COVID-19 (principal); J12.82 Pneumonia due to coronavirus disease 2019; J96.01 Acute respiratory failure with hypoxia; I50.32 Chronic diastolic (congestive) heart failure; I24.8 Other forms of acute ischemic heart disease; I11.0 Hypertensive heart disease with heart failure; E87.6 Hypokalemia; I25.10 Atherosclerotic heart disease of native coronary artery without angina pectoris; F32.A Depression, unspecified; F41.9 Anxiety disorder, unspecified; E78.5 Hyperlipidemia, unspecified; Z95.5 Presence of coronary angioplasty implant and graft
CPT/HCPCS: 36415; 36600; 71045; 80048; 80053; 81001; 82550; 82728; 82805; 83605; 83615; 83735; 83880; 84145; 84484; 85025; 85027; 85379; 86140; 87040; 87633; 87635; 87797; 93005; 93010; 94660; 94760; 94762; 96361; 96374; 97116; 97162; 97530; 99284; C9803; J0360; J1100; J1650; J1940

== ENCOUNTER 2021-06-14 09:52 | Emergency (ER) | payer MEDICARE, OTHER, SELFPAY ==
[2021-03-06 15:08] VITALS: BMI 36.7
[2021-06-14] VITALS (11 sets, daily range): BP systolic 137–196; BP diastolic 64–79; PULSE 55–70; RESP 11–23; TEMP 36.2; O2SAT 95–99
--- NOTE | 2021-06-14 10:22 | DI.RAD.S_ITS ---
PROCEDURE: XR CHEST 1V INDICATIONS: chest pain TECHNIQUE: One view of the chest was acquired. COMPARISON: [facility], CR, XR CHEST 1V, 03/06/2021, 11:27. FINDINGS: Surgical changes and devices: None. Lungs and pleura: There is hyperinflation and chronic interstitial changes without focal infiltrate, pleural effusion or pneumothorax. Mediastinum: Mediastinal contours appear normal. Heart size is enlarged. Bones and chest wall: No suspicious bony lesions. Overlying soft tissues appear unremarkable. Generalized decrease in osseous mineralization noted. Degenerative changes involving both shoulders IMPRESSION: Cardiomegaly without vascular congestion Hyperinflation and chronic interstitial changes Osteopenia and bilateral shoulder osteoarthritis Approved by: Wu Jasso M.D. on 06/14/2021 at 9:45
--- NOTE | 2021-06-14 10:43 | ED_ITS ---
HPI - Back Pain/Injury General Chief Complaint: Back Pain/Injury Stated Complaint: MID BACK PAIN Time Seen by Provider: 06/14/21 10:18 Source: patient and family History of Present Illness HPI Narrative: 85-year-old woman with long cardiac history, hypertension, hyperlipidemia, COVID pneumonia diagnosed at the end of February with continued oxygen requirements at home presents with moderate right greater than left throbbing pain and noted bright red blood with a bowel movement this morning and describes that as minimal. She notes that she recently completed 16 days of prednisone for pleuritic-type pain after her COVID infection. 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 She is not complaining of significant dyspnea and for the most part is trying to use minimal oxygen at most 2-3 L while sleeping. She has not noted palpitations, fevers or chills. She does note that her cough is somewhat worse after recently stopping the prednisone.. She reports no orthopnea no lower ext remity edema. No specific headaches or acute neurologic changes. Related Data Home Medications Medication Instructions Recorded Confirmed aspirin 81 mg tablet,delayed 81 mg PO DAILY #0 05/14/17 03/06/21 release nitroglycerin 0.4 mg sublingual 1 tab SUBLINGUAL [id number] PRN 11/18/18 03/06/21 tablet rosuvastatin 40 mg tablet 40 mg PO QPM 11/18/18 03/06/21 ranolazine 500 mg tablet,extended 500 mg PO BID 02/09/20 03/06/21 release,12 hr escitalopram oxalate 20 mg tablet 20 mg PO DAILY 03/06/21 03/06/21 pantoprazole 40 mg tablet,delayed 40 mg PO DAILY 03/06/21 03/06/21 release alprazolam 0.5 mg tablet 0.5 mg PO Q6HR 03/10/21 03/10/21 Previous Rx's Medication Instructions Recorded furosemide 40 mg tablet 40 mg PO DAILY #30 tab 02/09/20 metoprolol tartrate 50 mg tablet 50 mg PO TID #60 tab 03/11/21 oxycodone-acetaminophen 5 mg-325 1 tab PO Q6H PRN #15 tab 06/14/21 mg tablet prednisone 5 mg tablet 5 mg PO DAILY #20 tab 06/14/21 Allergies Allergy/AdvReac Type Severity Reaction Status Date / Time erythromycin base Allergy Severe Rash Verified 06/14/21 10:19 [ERYTHROMYCIN BASE] ibuprofen [IBUPROFEN] Allergy Severe Rash Verified 06/14/21 10:19 Iodinated Contrast Media Allergy Severe Unconscious Verified 06/14/21 10:19 [IODINATED CONTRAST- ORAL AND IV DYE] morphine [MORPHINE] Allergy Severe Rash Verified 06/14/21 10:19 naproxen [From ALEVE] Allergy Severe Rash Verified 06/14/21 10:19 telmisartan [TELMISARTAN] Allergy Severe Rash Verified 06/14/21 10:19 Review of Systems Review of Systems Narrative: Remainder of complete review of systems is otherwise unremarkable except for that included in the HPI. Patient History Medical History (Updated 06/14/21 @ 12:50 by Bhumi Addison MD) Cardiac arrest Chest pain Coronary artery disease Diastolic heart failure Hyperlipidemia Hypertension Left hamstring muscle strain NSTEMI (non-ST elevated myocardial infarction) Skin cancer UTI (urinary tract infection) Surgical History H/O right heart catheterization History of appendectomy History of breast implant removal History of breast surgery History of cholecystectomy History of coronary artery stent placement History of total abdominal hysterectomy Family History Father Hypertension Diabetes mellitus Mother Hypertension PR (myocardial infarction) Sister PR (myocardial infarction) S/P CABG x 4 Social History household members: children Smoking Status: Never smoker Smoking Status: Never smoker alcohol intake frequency: holidays/special occasions only Substance Use Type: does not use Exam Initial Vital Signs Initial Vital Signs: Vital Signs Temperature 97.1 F L 06/14/21 10:10 Pulse Rate 60 06/14/21 10:10 Respiratory Rate 22 06/14/21 10:10 Blood Pressure 196/79 H 06/14/21 10:10 Pulse Oximetry 95 06/14/21 10:10 General: Mild distress secondary to posterior lung pain but Able to give a complete and coherent history speaking in full sentences with no respiratory distress. Nourished well-developed HEENT: Moist mucous membranes, normal sclera with reactive pupils, Neck: No JVD, supple Respiratory: Lungs with minor scattered wheezing in lower quadrants, no rhonchi. Full and symmetrical air movement Cardiac: Regular rate and rhythm no murmurs no bruits Abdomen: Soft, nontender, good bowel tones, no flank pain Skin: Warm and dry, no rashes Neurologic: Grossly neurologically intact with no obvious asymmetries or abnormalities Extremities: No trauma, well perfused Psych: Cooperative, appropriate insight and affect Course Orders Ordered: ED Orders 06/14/21 10:22 XR chest 1V Stat 06/14/21 10:33 EKG-12 Lead Stat 06/14/21 10:50 Complete Blood Count AUTO DIFF Stat Comprehensive Metabolic Panel Stat D Dimer Stat Lipase Stat Magnesium Stat NT-proBNP (BNP-Adult 18+) Stat Troponin & CK Cardiac Panel Stat 06/14/21 11:39 Urinalysis and Microscopic Stat Discontinued Medications Ketorolac Tromethamine (Ketorolac 30 Mg/Ml Vial) 15 mg IV NOW ONE Stop: 06/14/21 11:31 Oxycodone/Acetaminophen (Oxycodone/Acetaminophen 5/325 Tablet) 1 tab PO NOW ONE Stop: 06/14/21 11:31 Last Admin: 06/14/21 11:35 Dose: 1 tab Documented by: LENNY Vital Signs Vital signs: Vital Signs - 8 hr 06/14/21 10:10 Temperature 97.1 F L Pulse Rate 60 Respiratory Rate 22 Blood Pressure 196/79 H Pulse Oximetry 95 MDM - Back Pain/Injury Lab Data Result diagrams: 06/14/21 10:50 06/14/21 10:50 Labs: Lab Results 06/14/21 06/14/21 06/14/21 Range/Units 10:50 10:50 10:50 WBC 8.5 (4.5-11.0) X10^3/uL RBC 4.92 (4.0-5.2) X10^6/uL Hgb 14.1 (12.0-16.0) g/dL Hct 41.6 (36-46) % MCV 84.4 (80-100) fL MCH 28.6 (26-34) PG MCHC 33.9 (30-36) % RDW 18.2 H (11.6-14.8) % Plt Count 163 (150-400) X10^3/uL Neut % (Auto) 67.2 (50-75) % Lymph % (Auto) 22.6 L (25-40) % Andrew % (Auto) 7.9 (3-14) % Eos % (Auto) 1.3 L (2-4) % Baso % (Auto) 1.0 (0-2) % Neut # (Auto) 5700 (1251-8918) /uL Lymph # (Auto) 1900 (4577-0517) /uL Andrew # (Auto) 700 (0-900) /uL Eos # (Auto) 100 (0-450) /uL Baso # (Auto) 100 (0-100) /uL D-Dimer 386 H (<230) ng/mL Sodium 136 L (137-145) mmol/L Potassium 4.4 (3.4-5.1) mmol/L Chloride 100 (98-107) mmol/L Carbon Dioxide 33 H (22-32) mmol/L BUN 20 H (7-17) mg/dL Creatinine 1.18 H (0.52-1.04) mg/dL Estimated GFR 43.7 L (>60) mL/min BUN/Creatinine Ratio 16.9 (6-22) Glucose 117 H (80-110) mg/dL Calcium 9.3 (8.4-10.2) mg/dL Magnesium 2.0 (1.6-2.3) mg/dL Total Bilirubin 0.8 (0.2-1.3) mg/dL AST 26 (14-36) IU/L ALT 12 (<35) IU/L Alkaline Phosphatase 40 (38-126) U/L Total Creatine Kinase 30 (30-135) U/L CK-MB (CK-2) TNP CK-MB (CK-2) Rel Index TNP Troponin I 0.023 (0.01-0.034) ng/mL NT-Pro-B Natriuret Pep 596 H (<450) pg/mL Total Protein 6.8 (6.3-8.2) g/dL Albumin 4.0 (3.5-5.0) g/dL Globulin 2.8 (1.7-4.1) g/dL Albumin/Globulin Ratio 1.4 (1.0-2.8) Lipase 109 (23-300) U/L D-dimer is somewhat elevated however within normal range when corrected for age Imaging Data Chest x-ray: Radiologist's Impression: FINDINGS:? ? Surgical changes and devices:? None.? ? Lungs and pleura:? There is hyperinflation and chronic interstitial changes without focal infiltrate, pleural effusion or pneumothorax. ? Mediastinum:? Mediastinal contours appear normal.? Heart size is enlarged.? ? Bones and chest wall:? No suspicious bony lesions.? Overlying soft tissues appear unremarkable.? Generalized decrease in osseous mineralization noted.? Degenerative changes involving both shoulders ? IMPRESSION:? ? Cardiomegaly without vascular congestion Hyperinflation and chronic interstitial changes Osteopenia and bilateral shoulder osteoarthritis ? ? ? Approved by: Wu Jasso M.D. on 06/14/2021 at 9:45? ECG Data Interpretation: Sinus bradycardia at 56 Partial right bundle branch block No acute ischemic changes MDM Narrative Medical decision making narrative: 85-year-old woman presents with severe posterior lung pain right greater than left worse with deep breathing. She recently stopped a 16 day prednisone taper and pain is increased since. Tylenol is not controlling this. Workup does not suggest consolidated pneumonia, recurrent COVID, other viral infections, acute coronary syndrome, pneumothorax, congestive heart failure, pancreatitis. She does feel better with a single Percocet and I suspect at this point that this continues to be pleuritic chest pain after her COVID pneumonia number of months ago. I suspect that it is worse currently because of the discontinuation of the prednisone. She is intolerant nonsteroidals. Will place her on 2 more weeks of 5 mg of prednisone as well as a brief supply of oxycodone to use for severe pain. She does have MiraLax at home to help avoid constipation in the setting of opioids. All findings reviewed with patient and her daughter. Questions are answered and she is safe for home discharge Discharge Plan Departure Patient Disposition: Home Clinical Impression: Pleurisy Instructions: Pleurisy Activity Restrictions/Additional Instructions: Thank you for coming in today Your workup was very reassuring There is no sign of collapsed lung, recurrent pneumonia, heart attack, pancreatitis or other types of infection. I suspect that this is continued pleuritic chest pain and is worse because you recently stopped your prednisone. I am going to give you an additional 2 weeks of prednisone at 5 mg a day to help with the inflammation and pain. You can use Percocet sparingly for severe pain and Tylenol for moderate pain. Prescriptions were transmitted to [facility]. Please follow-up with your primary care provider and feel free to return to the emergency department if you develop new or worsening symptoms. Prescriptions: New oxycodone-acetaminophen 5-325 mg tablet 1 tab PO Q6H PRN (Reason: pain) Qty: 15 0RF prednisone 5 mg tablet 5 mg PO DAILY Qty: 20 0RF No Action aspirin 81 MG tablet,delayed release (DR/EC) 81 mg PO DAILY Qty: 0 0RF ranolazine 500 mg tablet extended release 12 hr 500 mg PO BID 0RF furosemide 40 mg tablet 40 mg PO DAILY Qty: 30 0RF pantoprazole 40 mg Tablet,Delayed Release (Dr/Ec) 40 mg PO DAILY 0RF escitalopram oxalate 20 mg Tablet 20 mg PO DAILY 0RF alprazolam 0.5 mg tablet 0.5 mg PO Q6HR 0RF metoprolol tartrate 50 mg Tablet 50 mg PO TID Qty: 60 0RF nitroglycerin 0.4 mg tablet, sublingual 1 tab sublingual [id number] PRN (Reason: Chest Pain) 0RF Label Comments: take it when needed, last dose unknown rosuvastatin 40 mg tablet 40 mg PO QPM 0RF Referrals: Zoe Bass PA-C [Primary Care Provider] -
[2021-06-14 11:03] LABS: Add Manual Diff / Slide Review NO; Basophils Absolute Auto 100 /uL (0-100); Eosinophils Absolute Auto 100 /uL (0-450); Eosinophils Percent Auto 1.3 % (2-4); Hematocrit 41.6 % (36-46); Hemoglobin 14.1 g/dL (12.0-16.0); Lymphocytes Absolute Auto 1900 /uL (1100-4500); Lymphocytes Percent Auto 22.6 % (25-40); Mean Corpuscular HGB Conc 33.9 % (30-36); Mean Corpuscular Hemoglobin 28.6 PG (26-34); Mean Corpuscular Volume 84.4 fL (80-100); Monocytes Absolute Auto 700 /uL (0-900); Monocytes Percent Auto 7.9 % (3-14); Neutrophils Absolute Auto 5700 /uL (1500-7000); Neutrophils Percent Auto 67.2 % (50-75); Platelet Count 163 X10^3/uL (150-400); Red Blood Cell Count 4.92 X10^6/uL (4.0-5.2); Red Cell Distribution Width 18.2 % (11.6-14.8); White Blood Cell Count 8.5 X10^3/uL (4.5-11.0)
[2021-06-14 11:12] LABS: D Dimer 386 ng/mL (<230)
[2021-06-14 11:14] LABS: Alanine Aminotransferase 12 IU/L (<35); Albumin Globulin Ratio 1.4 (1.0-2.8); Alkaline Phosphatase 40 U/L (38-126); Aspartate Aminotransferase 26 IU/L (14-36); BUN Creatinine Ratio 16.9 (6-22); Bilirubin Total 0.8 mg/dL (0.2-1.3); Blood Urea Nitrogen 20 mg/dL (7-17); Calcium 9.3 mg/dL (8.4-10.2); Carbon Dioxide 33 mmol/L (22-32); Chloride 100 mmol/L (98-107); Creatine Kinase 30 U/L (30-135); Estimated Glomerular Filt Rate 43.7 mL/min (>60); Globulin 2.8 g/dL (1.7-4.1); Glucose 117 mg/dL (80-110); HEMOLYSIS 41 (0-50); Lipase 109 U/L (23-300); Potassium 4.4 mmol/L (3.4-5.1); Sodium 136 mmol/L (137-145); Total Protein 6.8 g/dL (6.3-8.2)
[2021-06-14 11:25] LABS: NT-proBNP (BNP-Adult 18+) 596 pg/mL (<450); Troponin I 0.023 ng/mL (0.01-0.034)
[2021-06-14] MEDS: OXYCODONE/ACETAMINOPHEN 5/325 TABLET 1 TAB PO (11:35)
[2021-06-14 12:59] LABS: Appearance Urine UA CLEAR; Bilirubin Urine UA NEGATIVE (NEGATIVE); Color Urine UA YELLOW; Glucose Urine UA NEGATIVE (Negative); Ketones Urine UA NEGATIVE (NEGATIVE); Leukocyte Esterase Urine UA NEGATIVE (NEGATIVE); Nitrite Urine UA NEGATIVE (Negative); Occult Blood Urine UA NEGATIVE (Negative); Protein Urine UA NEGATIVE (Negative); Specific Gravity Urine UA 1.015 (1.000-1.035); Urobilinogen Urine UA 0.2 E.U./dL (0.2)
[2021-06-14 13:44] LABS: Bacteria Urine None Seen; Culture Indicated Urine Cult Not Indicated; RBC Urine 0-1/HPF (0-5/HPF); Squamous Epithelial Cell Urine None Seen (0-5/HPF); WBC Urine None Seen (0-5/HPF)
== END 2021-06-14 12:23 | disposition home or self-care (01) ==
PROVIDERS: Emergency Provider Emergency Medicine; Family Provider Internal Medicine; PCP Physician Assistant Medical
DX: R09.1 Pleurisy (principal); R00.1 Bradycardia, unspecified
CPT/HCPCS: 36415; 71045; 80053; 81001; 82550; 83690; 83735; 83880; 84484; 85025; 85379; 93005; 99284

== ENCOUNTER 2021-12-18 13:55 | Emergency (ER) | payer MEDICARE, OTHER, SELFPAY ==
[2021-03-06 15:08] VITALS: BMI 36.7
[2021-12-18] VITALS (14 sets, daily range): BP systolic 156–211; BP diastolic 67–98; PULSE 64–76; RESP 10–30; TEMP 35.9; O2SAT 95–100; BMI 37.5
--- NOTE | 2021-12-18 14:14 | DI.RAD.S_ITS ---
PROCEDURE: XR CHEST 2V INDICATIONS: shortness of breath TECHNIQUE: 2 views of the chest were acquired. COMPARISON: [facility], CT, CT CHEST WITHOUT CONTRAST, 03/17/2020, 23:02. [facility], CR, XR CHEST 1V, 03/06/2021, 11:27. [facility], CR, XR CHEST 1V, 06/14/2021, 10:29. FINDINGS: Surgical changes and devices: None. Overlying EKG wires. Lungs and pleura: Lungs are clear. No pleural effusions or pneumothorax. Hyperinflation with chronic interstitial changes. Mediastinum: Mediastinal contours are normal. Heart size is normal. Bones and chest wall: Stable compression deformity of a midthoracic vertebra. Vascular calcifications noted throughout the aorta. Soft tissues appear unremarkable. IMPRESSION: Chronic findings consistent with known fibrotic lung disease with interstitial prominence and hyperventilation. No focal consolidation or other findings to suggest an acute cardiopulmonary abnormality. Dictated by: Harry Naylor D.O. on 12/18/2021 at 14:03 Approved by: Harry Naylor D.O. on 12/18/2021 at 14:06
--- NOTE | 2021-12-18 15:10 | ED.ABDPAIN ---
HPI - Abdominal Pain General Chief Complaint: Abdominal Pain Stated Complaint: Abd/Back Pain, Hx Shingles, Ear Pain, Throwing Up Time Seen by Provider: 12/18/21 14:17 Source: patient Mode of arrival: Ambulatory History of Present Illness HPI narrative: Patient is an 86-year-old female history of COVID pneumonia now on home O2 2-3 L, congestive heart failure, coronary artery disease with multiple stents, previous shingles infection presenting today with variety of symptoms. She has for the last 10 days she has had some pain with breathing and increasing shortness of breath with exertion. She has had to go up 1 to 2 L of oxygen on occasion. She mostly feels like she has burning sensation in her chest in the exact same place that she previously had her shingles infection although she currently does not see a rash. She has not had fever chills. She has a dry nonproductive cough. Related Data Home Medications Medication Instructions Recorded Confirmed aspirin 81 mg tablet,delayed 81 mg PO DAILY ##0 05/14/17 03/06/21 release nitroglycerin 0.4 mg sublingual 1 tab sublingual [id number] PRN Chest 11/18/18 03/06/21 tablet Pain rosuvastatin 40 mg tablet 40 mg PO QPM 11/18/18 03/06/21 ranolazine 500 mg tablet,extended 500 mg PO BID 02/09/20 03/06/21 release,12 hr escitalopram oxalate 20 mg tablet 20 mg PO DAILY 03/06/21 03/06/21 pantoprazole 40 mg tablet,delayed 40 mg PO DAILY 03/06/21 03/06/21 release alprazolam 0.5 mg tablet 0.5 mg PO Q6HR anxiety 03/10/21 03/10/21 Previous Rx's Medication Instructions Recorded furosemide 40 mg tablet 40 mg PO DAILY #30 tabs 02/09/20 metoprolol tartrate 50 mg tablet 50 mg PO TID #60 tabs 03/11/21 oxycodone-acetaminophen 5 mg-325 1 tab PO Q6H PRN pain #14 tabs 06/14/21 mg tablet oxycodone-acetaminophen 5 mg-325 1 tab PO Q6H PRN pain #14 tabs 06/14/21 mg tablet oxycodone-acetaminophen 5 mg-325 1 tab PO Q6H PRN pain #15 tabs 06/14/21 mg tablet prednisone 5 mg tablet 5 mg PO DAILY #20 tabs 06/14/21 prednisone 5 mg tablet 5 mg PO DAILY #20 tabs 06/14/21 prednisone 5 mg tablet 5 mg PO DAILY #20 tabs 06/14/21 Allergies Allergy/AdvReac Type Severity Reaction Status Date / Time erythromycin base Allergy Severe Rash Verified 12/18/21 14:07 [ERYTHROMYCIN BASE] ibuprofen [IBUPROFEN] Allergy Severe Rash Verified 12/18/21 14:07 Iodinated Contrast Media Allergy Severe Unconscious Verified 12/18/21 14:07 [IODINATED CONTRAST- ORAL AND IV DYE] morphine [MORPHINE] Allergy Severe Rash Verified 12/18/21 14:07 naproxen [From ALEVE] Allergy Severe Rash Verified 12/18/21 14:07 telmisartan [TELMISARTAN] Allergy Severe Rash Verified 12/18/21 14:07 Review of Systems Review of Systems Narrative: GENERAL: Denies chills, fatigue, malaise, fever, sweats, travel HEENT: Denies sinus pain, ear pain, sore throat, difficulty swallowing, neck pain RESPIRATORY: See HPI CARDIOVASCULAR: Denies chest pain, palpitations, orthopnea, edema GASTROINTESTINAL: Denies nausea, vomiting, abdominal pain, diarrhea, constipation, melena. : Denies dysuria, frequency, incontinence, hematuria, urinary retention, flank pain. MUSCULOSKELETAL: Denies weakness, joint pain, or bony pain SKIN: No rash, no erythema, no pruritus NEUROLOGIC: Denies weakness, dizziness, headache, numbness, change in speech, confusion PSYCHIATRIC: No concerning psychosocial issues. 12 point review of systems is negative except for those stated above and HPI Patient History Medical History (Updated 12/18/21 @ 18:56 by Zarina Gu DO) Cardiac arrest Chest pain Coronary artery disease Diastolic heart failure Hyperlipidemia Hypertension Left hamstring muscle strain NSTEMI (non-ST elevated myocardial infarction) Skin cancer UTI (urinary tract infection) Surgical History H/O right heart catheterization History of appendectomy History of breast implant removal History of breast surgery History of cholecystectomy History of coronary artery stent placement History of total abdominal hysterectomy Family History Father Hypertension Diabetes mellitus Mother Hypertension [place] (myocardial infarction) Sister [place] (myocardial infarction) S/P CABG x 4 Social History household members: children Smoking Status: Never smoker Smoking Status: Never smoker alcohol intake frequency: holidays/special occasions only Substance Use Type: does not use Exam Initial Vital Signs Initial Vital Signs: Vital Signs Temperature 96.6 F L 12/18/21 14:07 Pulse Rate 70 12/18/21 14:07 Respiratory Rate 16 12/18/21 14:07 Blood Pressure 211/98 H 12/18/21 14:07 Pulse Oximetry 98 12/18/21 14:07 Oxygen Delivery Method 12/18/21 14:07 GENERAL: Alert pleasant 86-year-old female BMI 87 HEENT: Head atraumatic,EOMI, pupils reactive, face symmetric, moist mucous membranes CARDIOVASCULAR: Regular rate and rhythm without murmurs, rubs or gallops. RESPIRATORY: Breath sounds equal bilaterally, no wheezes rales or rhonchi. Dry nonproductive cough with deep breaths no respiratory distress or conversational dyspnea ABDOMEN: Soft, nontender. Normoactive bowel sounds all 4 quadrants. No guarding or rebound. EXTREMITIES: Normal range of motion, no clubbing or edema. Neurovascularly intact NEUROLOGICAL: Alert and oriented x4.Normal gait and speech SKIN: Warm, dry, no laceration, no petechiae, no rashes or lesions. Course Orders Ordered: Discontinued Medications Acetaminophen (Acetaminophen 325 Mg Tablet) 975 mg PO NOW ONE Stop: 12/18/21 16:26 Last Admin: 12/18/21 16:37 Dose: 975 mg Documented By: NR Diphenhydramine HCl (Diphenhydramine 50 Mg/Ml Vial) 25 mg IV NOW ONE Stop: 12/18/21 17:39 Last Admin: 12/18/21 17:48 Dose: 25 mg Documented By: NR Methylprednisolone (Methylprednisolone 125 Mg/2 Ml Vial) 125 mg IV NOW ONE Stop: 12/18/21 17:39 Last Admin: 12/18/21 17:47 Dose: 125 mg Documented By: NR Pantoprazole Sodium (Pantoprazole 40 Mg Vial) 40 mg IV NOW ONE Stop: 12/18/21 16:26 Last Admin: 12/18/21 16:34 Dose: Not Given Documented By: NR Vital Signs Vital signs: Vital Signs - 8 hr 12/18/21 14:07 12/18/21 14:15 12/18/21 14:30 Temperature 96.6 F L Pulse Rate 70 70 64 Respiratory Rate 16 20 Blood Pressure 211/98 H Pulse Oximetry 98 95 97 Oxygen Delivery Method Room Air 12/18/21 15:00 12/18/21 15:30 12/18/21 16:00 Temperature Pulse Rate 64 70 68 Respiratory Rate 15 29 H Blood Pressure Pulse Oximetry 98 98 98 Oxygen Delivery Method Room Air 12/18/21 16:30 12/18/21 17:00 12/18/21 17:23 Temperature Pulse Rate 72 74 Respiratory Rate 26 H 30 H Blood Pressure 156/67 H Pulse Oximetry 98 99 Oxygen Delivery Method 12/18/21 17:23 Temperature Pulse Rate 72 Respiratory Rate 20 Blood Pressure Pulse Oximetry 99 Oxygen Delivery Method MDM - Abdominal Pain Lab Data Result diagrams: 12/18/21 15:00 12/18/21 15:00 Labs: Lab Results 12/18/21 12/18/21 12/18/21 Range/Units 15:00 15:00 15:00 WBC 7.8 (4.5-11.0) X10^3/uL RBC 4.78 (4.0-5.2) X10^6/uL Hgb 13.2 (12.0-16.0) g/dL Hct 39.9 (36-46) % MCV 83.6 (80-100) fL MCH 27.6 (26-34) PG MCHC 33.0 (30-36) % RDW 17.8 H (11.6-14.8) % Plt Count 218 (150-400) X10^3/uL Neut % (Auto) 52.2 (50-75) % Lymph % (Auto) 34.7 (25-40) % [place] % (Auto) 10.2 (3-14) % Eos % (Auto) 2.4 (2-4) % Baso % (Auto) 0.5 (0-2) % Neut # (Auto) 4100 (8406-5201) /uL Lymph # (Auto) 2700 (1776-9111) /uL [place] # (Auto) 800 (0-900) /uL Eos # (Auto) 200 (0-450) /uL Baso # (Auto) 0 (0-100) /uL D-Dimer (<230) ng/mL Sodium 138 (137-145) mmol/L Potassium 4.5 (3.4-5.1) mmol/L Chloride 100 (98-107) mmol/L Carbon Dioxide 32 (22-32) mmol/L BUN 25 H (7-17) mg/dL Creatinine 1.17 H (0.52-1.04) mg/dL Estimated GFR 46 L (>60) mL/min BUN/Creatinine Ratio 21.4 (6-22) Glucose 100 (80-110) mg/dL Lactate 2.6 H (0.7-2.1) mmol/L Calcium 9.4 (8.4-10.2) mg/dL Magnesium 2.0 (1.6-2.3) mg/dL Total Bilirubin 0.6 (0.2-1.3) mg/dL AST 28 (14-36) IU/L ALT 8 (<35) IU/L Alkaline Phosphatase 49 (38-126) U/L Total Creatine Kinase 69 (30-135) U/L CK-MB (CK-2) TNP CK-MB (CK-2) Rel Index TNP Troponin I 0.016 (0.01-0.034) ng/mL NT-Pro-B Natriuret Pep (<450) pg/mL Total Protein 7.6 (6.3-8.2) g/dL Albumin 4.3 (3.5-5.0) g/dL Globulin 3.3 (1.7-4.1) g/dL Albumin/Globulin Ratio 1.3 (1.0-2.8) Lipase 130 (23-300) U/L Procalcitonin (<0.5) ng/mL Urine Color Urine Appearance Urine pH (4.5-8.0) Ur Specific [place] (1.000-1.035) Urine Protein (Negative) Urine Glucose (UA) (Negative) g/dL Urine Ketones (NEGATIVE) Urine Occult Blood (Negative) Urine Nitrate (Negative) Urine Bilirubin (NEGATIVE) Urine Urobilinogen (0.2) E.U./dL Ur Leukocyte Esterase (NEGATIVE) Urine RBC (0-5/HPF) Urine WBC (0-5/HPF) Ur Squamous Epith Cells (0-5/HPF) Amorphous Sediment Urine Bacteria (None) Ur Culture Indicated? SARS-CoV-2 (PCR) (Negative) 12/18/21 12/18/21 12/18/21 Range/Units 15:00 15:00 15:00 WBC (4.5-11.0) X10^3/uL RBC (4.0-5.2) X10^6/uL Hgb (12.0-16.0) g/dL Hct (36-46) % MCV (80-100) fL MCH (26-34) PG MCHC (30-36) % RDW (11.6-14.8) % Plt Count (150-400) X10^3/uL Neut % (Auto) (50-75) % Lymph % (Auto) (25-40) % [place] % (Auto) (3-14) % Eos % (Auto) (2-4) % Baso % (Auto) (0-2) % Neut # (Auto) (3564-3056) /uL Lymph # (Auto) (3706-7966) /uL [place] # (Auto) (0-900) /uL Eos # (Auto) (0-450) /uL Baso # (Auto) (0-100) /uL D-Dimer 290 H (<230) ng/mL Sodium (137-145) mmol/L Potassium (3.4-5.1) mmol/L Chloride (98-107) mmol/L Carbon Dioxide (22-32) mmol/L BUN (7-17) mg/dL Creatinine (0.52-1.04) mg/dL Estimated GFR (>60) mL/min BUN/Creatinine Ratio (6-22) Glucose (80-110) mg/dL Lactate (0.7-2.1) mmol/L Calcium (8.4-10.2) mg/dL Magnesium (1.6-2.3) mg/dL Total Bilirubin (0.2-1.3) mg/dL AST (14-36) IU/L ALT (<35) IU/L Alkaline Phosphatase (38-126) U/L Total Creatine Kinase (30-135) U/L CK-MB (CK-2) CK-MB (CK-2) Rel Index Troponin I (0.01-0.034) ng/mL NT-Pro-B Natriuret Pep 572 H (<450) pg/mL Total Protein (6.3-8.2) g/dL Albumin (3.5-5.0) g/dL Globulin (1.7-4.1) g/dL Albumin/Globulin Ratio (1.0-2.8) Lipase (23-300) U/L Procalcitonin (<0.5) ng/mL Urine Color Urine Appearance Urine pH (4.5-8.0) Ur Specific [place] (1.000-1.035) Urine Protein (Negative) Urine Glucose (UA) (Negative) g/dL Urine Ketones (NEGATIVE) Urine Occult Blood (Negative) Urine Nitrate (Negative) Urine Bilirubin (NEGATIVE) Urine Urobilinogen (0.2) E.U./dL Ur Leukocyte Esterase (NEGATIVE) Urine RBC (0-5/HPF) Urine WBC (0-5/HPF) Ur Squamous Epith Cells (0-5/HPF) Amorphous Sediment Urine Bacteria (None) Ur Culture Indicated? SARS-CoV-2 (PCR) Negative (Negative) 12/18/21 12/18/21 12/18/21 Range/Units 15:00 16:10 17:30 WBC (4.5-11.0) X10^3/uL RBC (4.0-5.2) X10^6/uL Hgb (12.0-16.0) g/dL Hct (36-46) % MCV (80-100) fL MCH (26-34) PG MCHC (30-36) % RDW (11.6-14.8) % Plt Count (150-400) X10^3/uL Neut % (Auto) (50-75) % Lymph % (Auto) (25-40) % [place] % (Auto) (3-14) % Eos % (Auto) (2-4) % Baso % (Auto) (0-2) % Neut # (Auto) (8079-1386) /uL Lymph # (Auto) (5023-2023) /uL [place] # (Auto) (0-900) /uL Eos # (Auto) (0-450) /uL Baso # (Auto) (0-100) /uL D-Dimer (<230) ng/mL Sodium (137-145) mmol/L Potassium (3.4-5.1) mmol/L Chloride (98-107) mmol/L Carbon Dioxide (22-32) mmol/L BUN (7-17) mg/dL Creatinine (0.52-1.04) mg/dL Estimated GFR (>60) mL/min BUN/Creatinine Ratio (6-22) Glucose (80-110) mg/dL Lactate 1.4 (0.7-2.1) mmol/L Calcium (8.4-10.2) mg/dL Magnesium (1.6-2.3) mg/dL Total Bilirubin (0.2-1.3) mg/dL AST (14-36) IU/L ALT (<35) IU/L Alkaline Phosphatase (38-126) U/L Total Creatine Kinase (30-135) U/L CK-MB (CK-2) CK-MB (CK-2) Rel Index Troponin I (0.01-0.034) ng/mL NT-Pro-B Natriuret Pep (<450) pg/mL Total Protein (6.3-8.2) g/dL Albumin (3.5-5.0) g/dL Globulin (1.7-4.1) g/dL Albumin/Globulin Ratio (1.0-2.8) Lipase (23-300) U/L Procalcitonin 0.05 (<0.5) ng/mL Urine Color Yellow Urine Appearance Clear Urine pH 5.5 (4.5-8.0) Ur Specific [place] 1.015 (1.000-1.035) Urine Protein Negative (Negative) Urine Glucose (UA) Trace H (Negative) g/dL Urine Ketones Negative (NEGATIVE) Urine Occult Blood Trace-lysed (Negative) Urine Nitrate Negative (Negative) Urine Bilirubin Negative (NEGATIVE) Urine Urobilinogen 0.2 (0.2) E.U./dL Ur Leukocyte Esterase Negative (NEGATIVE) Urine RBC None seen (0-5/HPF) Urine WBC None seen (0-5/HPF) Ur Squamous Epith Cells 5-10 /hpf H (0-5/HPF) Amorphous Sediment 1+ Urine Bacteria Occasional (0-1) (None) Ur Culture Indicated? Cult not indicated SARS-CoV-2 (PCR) (Negative) Imaging Data Chest x-ray: Radiologist's Impression: XRay Report Signed Patient: Lida Townsend MR#: [id number] : 1935 Acct:[id number] Age/Sex: 86 / F Date of Service: 12/18/21 Loc: ED Accession Number: [id number] ?? Procedure: XR chest 2V Ordering Provider: Zarina Gu D.O. PROCEDURE:? XR CHEST 2V ? INDICATIONS:? shortness of breath ? TECHNIQUE:? 2 views of the chest were acquired.? ? COMPARISON:? [facility], CT, CT CHEST WITHOUT CONTRAST, 03/17/2020, 23:02.? [facility], CR, XR CHEST 1V, 03/06/2021, 11:27.? [facility], CR, XR CHEST 1V, 06/14/2021, 10:29. ? FINDINGS:? ? Surgical changes and devices:? None.? Overlying EKG wires. ? Lungs and pleura:? Lungs are clear.? No pleural effusions or pneumothorax.? Hyperinflation with chronic interstitial changes. ? Mediastinum:? Mediastinal contours are normal.? Heart size is normal.? ? Bones and chest wall:? Stable compression deformity of a midthoracic vertebra.? Vascular calcifications noted throughout the aorta.? Soft tissues appear unremarkable.? ? IMPRESSION:? ? Chronic findings consistent with known fibrotic lung disease with interstitial prominence and hyperventilation.? No focal consolidation or other findings to suggest an acute cardiopulmonary abnormality. ? ? Dictated by: Harry Naylor D.O. on 12/18/2021 at 14:03 ? ? CT scan - chest: Radiologist's Impression: CT Scan Report Signed Patient: Lida Townsend MR#: [id number] : 1935 Acct:[id number] Age/Sex: 86 / F Date of Service: 12/18/21 Loc: ED Accession Number: [id number] ?? Procedure: CT angio chest PE protocol Ordering Provider: Zarina Gu D.O. PROCEDURE:? CT ANGIO CHEST PE PROTOCOL ? INDICATIONS:? sob hypoxia hx of covid ? TECHNIQUE:? After the administration of intravenous contrast, 2 mm thick sections acquired from the pulmonary apices to the posterior costophrenic angles.? 3-dimensional maximum intensity projection (MIP) coronal and sagittal reformats were then acquired through the thorax.? For radiation dose reduction, the following was used:? automated exposure control, adjustment of mA and/or kV according to patient size.? ? COMPARISON:? [facility], CT, CT CHEST WITHOUT CONTRAST, 03/17/2020, 23:02.? CT, CT ANGIO CHEST ABDOMEN PELVIS, 03/14/2020, 17:45.? [facility], CR, XR CHEST 2V, 12/18/2021, 14:19.? [facility], CT, CT ANGIO CHEST PE PROTOCOL, 12/09/2019, 17:08. ? FINDINGS:? Image quality:? Excellent.? ? Pulmonary arteries:? Pulmonary arteries are normal in size, and demonstrate no intraluminal filling defects to suggest central pulmonary embolism.? ? Lungs and pleura:? Bilateral subpleural septal thickening and pulmonary fibrosis..? No pleural effusions or pneumothorax.? Central and peripheral airways are patent.? ? Mediastinum:? Heart size is moderately increased.? No pericardial effusion.? Moderate coronary artery calcification consistent with atherosclerosis.? There is mild mediastinal and right hilar adenopathy.? Borderline enlarged AP window lymph node measures 1.2 cm.? There is a 1.8 cm right hilar lymph node.? Thoracic aorta is normal in caliber and enhancement.? Esophagus is normal in caliber, without hiatal hernia.? ? Bones and chest wall:? No suspicious bony lesions.? Ribs and thoracic spine appear intact throughout.? Thyroid gland is normal.? No axillary or supraclavicular adenopathy.? There is a 1.8 x 2.2 cm subcutaneous mass in the right anterior chest wall. ? Abdomen:? Visualized upper abdominal solid organs appear normal in the early arterial phase of enhancement.? ? IMPRESSION:? ? 1. No evidence for pulmonary embolism. 2. Bilateral subpleural septal thickening and pulmonary fibrosis. 3. Mild ground-glass infiltrates and mosaic attenuation.? Mild superimposed CHF may be present. 4. Moderate cardiomegaly. 5. Moderate coronary artery atherosclerosis. 6. Mild mediastinal and right hilar lymphadenopathy.? This finding is nonspecific and may be secondary to infectious, inflammatory or neoplastic etiology.? Recommend clinical correlation and follow up. 7. A 1.8 x 2.2 cm subcutaneous mass in the right anterior chest wall. ? ? ? Dictated by: Luann Bradshaw M.D. on 12/18/2021 at 19:13 ? ? Approved by: Luann Bradshaw M.D. on 12/18/2021 at 19:22 ? ECG Data Interpretation: Sinus rhythm rate is regular 190 QRS 92 QTC 4th and is to consist changes no T-wave inversions MDM Narrative Medical decision making narrative: The patient overall appears wear it while mild lactate of 2.4 no signs of sepsis. Her complaints quite vague she has some burning on the right side feels like her shingles although no rashes present yet. No evidence of a pneumonia. She is requiring more oxygen than normal D-dimer is actually slightly lower than what it was previously however she did have a hospitalization. A CT for PE is also negative. Questionable lymph node. It did discuss with both patient and daughter about following up about an abnormal lymph node with PCP Discharge Plan Departure Patient Disposition: Home Clinical Impression: Chronic shortness of breath Instructions: DI for Shortness of Breath Activity Restrictions/Additional Instructions: *You have been diagnosed with worsening shortness of breath *What to do: At this time time I do not have a great explanation for your symptoms. Please continue to monitor for recurrence of shingles which is still possible however I do not see it now. Blood work today is overall reassuring. This x-ray does not show any pneumonia. Her CT scan is negative. Please follow-up with your primary care provider. You do have a lymph node on your CT which needs to be followed. *Continue to take medications as directed *Follow up with your primary care provider in 2-3 days or call [phone] *Return to ER if you should have increasing shortness of breath, chest or any new, worsening or concerning symptoms Prescriptions: No Action aspirin 81 MG tablet,delayed release (DR/EC) 81 mg PO DAILY Qty: 0 ranolazine 500 mg tablet extended release 12 hr 500 mg PO BID furosemide 40 mg tablet 40 mg PO DAILY Qty: 30 0RF pantoprazole 40 mg Tablet,Delayed Release (Dr/Ec) 40 mg PO DAILY escitalopram oxalate 20 mg Tablet 20 mg PO DAILY alprazolam 0.5 mg tablet 0.5 mg PO Q6HR metoprolol tartrate 50 mg Tablet 50 mg PO TID Qty: 60 0RF nitroglycerin 0.4 mg tablet, sublingual 1 tab sublingual [id number] PRN (Reason: Chest Pain) Label Comments: take it when needed, last dose unknown rosuvastatin 40 mg tablet 40 mg PO QPM oxycodone-acetaminophen 5-325 mg tablet 1 tab PO Q6H PRN (Reason: pain) Qty: 15 0RF prednisone 5 mg tablet 5 mg PO DAILY Qty: 20 0RF oxycodone-acetaminophen 5-325 mg tablet 1 tab PO Q6H PRN (Reason: pain) Qty: 14 0RF prednisone 5 mg tablet 5 mg PO DAILY Qty: 20 0RF prednisone 5 mg tablet 5 mg PO DAILY Qty: 20 0RF oxycodone-acetaminophen 5-325 mg tablet 1 tab PO Q6H PRN (Reason: pain) Qty: 14 0RF Referrals: Zoe Bass PA-C [Primary Care Provider] - Visit Report Forms: Patient Portal/API
[2021-12-18 15:16] LABS: Add Manual Diff / Slide Review NO; Basophils Absolute Auto 0 /uL (0-100); Basophils Percent Auto 0.5 % (0-2); Eosinophils Absolute Auto 200 /uL (0-450); Eosinophils Percent Auto 2.4 % (2-4); Hematocrit 39.9 % (36-46); Hemoglobin 13.2 g/dL (12.0-16.0); Lymphocytes Absolute Auto 2700 /uL (1100-4500); Lymphocytes Percent Auto 34.7 % (25-40); Mean Corpuscular Hemoglobin 27.6 PG (26-34); Mean Corpuscular Volume 83.6 fL (80-100); Monocytes Absolute Auto 800 /uL (0-900); Monocytes Percent Auto 10.2 % (3-14); Neutrophils Absolute Auto 4100 /uL (1500-7000); Neutrophils Percent Auto 52.2 % (50-75); Platelet Count 218 X10^3/uL (150-400); Red Blood Cell Count 4.78 X10^6/uL (4.0-5.2); Red Cell Distribution Width 17.8 % (11.6-14.8); White Blood Cell Count 7.8 X10^3/uL (4.5-11.0)
[2021-12-18 15:22] LABS: D Dimer 290 ng/mL (<230)
[2021-12-18 15:32] LABS: COVID19 -Nasal RAPID Negative (Negative)
[2021-12-18 15:33] LABS: Lactate (Lactic Acid) 2.6 mmol/L (0.7-2.1)
[2021-12-18 15:35] LABS: Alanine Aminotransferase 8 IU/L (<35); Albumin 4.3 g/dL (3.5-5.0); Albumin Globulin Ratio 1.3 (1.0-2.8); Alkaline Phosphatase 49 U/L (38-126); Aspartate Aminotransferase 28 IU/L (14-36); BUN Creatinine Ratio 21.4 (6-22); Bilirubin Total 0.6 mg/dL (0.2-1.3); Blood Urea Nitrogen 25 mg/dL (7-17); Calcium 9.4 mg/dL (8.4-10.2); Carbon Dioxide 32 mmol/L (22-32); Chloride 100 mmol/L (98-107); Creatine Kinase 69 U/L (30-135); Estimated Glomerular Filt Rate 46 mL/min (>60); Globulin 3.3 g/dL (1.7-4.1); Glucose 100 mg/dL (80-110); Lipase 130 U/L (23-300); Potassium 4.5 mmol/L (3.4-5.1); Sodium 138 mmol/L (137-145); Total Protein 7.6 g/dL (6.3-8.2)
[2021-12-18 15:36] LABS: HEMOLYSIS 86 (0-50)
[2021-12-18 15:44] LABS: NT-proBNP (BNP-Adult 18+) 572 pg/mL (<450)
[2021-12-18 15:46] LABS: Troponin I 0.016 ng/mL (0.01-0.034)
[2021-12-18 16:13] LABS: Appearance Urine UA CLEAR; Bilirubin Urine UA NEGATIVE (NEGATIVE); Color Urine UA YELLOW; Glucose Urine UA TRACE g/dL (Negative); Ketones Urine UA NEGATIVE (NEGATIVE); Leukocyte Esterase Urine UA NEGATIVE (NEGATIVE); Nitrite Urine UA NEGATIVE (Negative); Occult Blood Urine UA TRACE-LYSED (Negative); Protein Urine UA NEGATIVE (Negative); Specific Gravity Urine UA 1.015 (1.000-1.035); Urobilinogen Urine UA 0.2 E.U./dL (0.2)
[2021-12-18 16:23] LABS: pH Urine UA 5.5 (4.5-8.0)
[2021-12-18 16:24] LABS: Amorphous Sediment Urine 1+; Bacteria Urine Occasional (0-1); Culture Indicated Urine Cult Not Indicated; RBC Urine None Seen (0-5/HPF); Squamous Epithelial Cell Urine 5-10 /HPF (0-5/HPF); WBC Urine None Seen (0-5/HPF)
[2021-12-18] MEDS: ACETAMINOPHEN 325 MG TABLET 975 MG PO (16:37)
[2021-12-18 17:05] LABS: Reflexed Lactate in 2 Hours Y
[2021-12-18 17:17] LABS: Procalcitonin 0.05 ng/mL (<0.5)
--- NOTE | 2021-12-18 17:38 | DI.CT.S_ITS ---
PROCEDURE: CT ANGIO CHEST PE PROTOCOL INDICATIONS: sob hypoxia hx of covid TECHNIQUE: After the administration of intravenous contrast, 2 mm thick sections acquired from the pulmonary apices to the posterior costophrenic angles. 3-dimensional maximum intensity projection (MIP) coronal and sagittal reformats were then acquired through the thorax. For radiation dose reduction, the following was used: automated exposure control, adjustment of mA and/or kV according to patient size. COMPARISON: [facility], CT, CT CHEST WITHOUT CONTRAST, 03/17/2020, 23:02. CT, CT ANGIO CHEST ABDOMEN PELVIS, 03/14/2020, 17:45. [facility], CR, XR CHEST 2V, 12/18/2021, 14:19. [facility], CT, CT ANGIO CHEST PE PROTOCOL, 12/09/2019, 17:08. FINDINGS: Image quality: Excellent. Pulmonary arteries: Pulmonary arteries are normal in size, and demonstrate no intraluminal filling defects to suggest central pulmonary embolism. Lungs and pleura: Bilateral subpleural septal thickening and pulmonary fibrosis.. No pleural effusions or pneumothorax. Central and peripheral airways are patent. Mediastinum: Heart size is moderately increased. No pericardial effusion. Moderate coronary artery calcification consistent with atherosclerosis. There is mild mediastinal and right hilar adenopathy. Borderline enlarged AP window lymph node measures 1.2 cm. There is a 1.8 cm right hilar lymph node. Thoracic aorta is normal in caliber and enhancement. Esophagus is normal in caliber, without hiatal hernia. Bones and chest wall: No suspicious bony lesions. Ribs and thoracic spine appear intact throughout. Thyroid gland is normal. No axillary or supraclavicular adenopathy. There is a 1.8 x 2.2 cm subcutaneous mass in the right anterior chest wall. Abdomen: Visualized upper abdominal solid organs appear normal in the early arterial phase of enhancement. IMPRESSION: 1. No evidence for pulmonary embolism. 2. Bilateral subpleural septal thickening and pulmonary fibrosis. 3. Mild ground-glass infiltrates and mosaic attenuation. Mild superimposed CHF may be present. 4. Moderate cardiomegaly. 5. Moderate coronary artery atherosclerosis. 6. Mild mediastinal and right hilar lymphadenopathy. This finding is nonspecific and may be secondary to infectious, inflammatory or neoplastic etiology. Recommend clinical correlation and follow up. 7. A 1.8 x 2.2 cm subcutaneous mass in the right anterior chest wall. Dictated by: Luann Bradshaw M.D. on 12/18/2021 at 19:13 Approved by: Luann Bradshaw M.D. on 12/18/2021 at 19:22
[2021-12-18] MEDS: methylPREDNISolone 125 MG/2 ML VIAL IV (17:47)
[2021-12-18] MEDS: diphenhydrAMINE 50 MG/ML VIAL 25 MG IV (17:48)
[2021-12-18 17:53] LABS: Lactate 2HR (Lactic Acid Rflx) 1.4 mmol/L (0.7-2.1)
== END 2021-12-18 19:52 | disposition home or self-care (01) ==
PROVIDERS: Emergency Provider Emergency Medicine; Family Provider Internal Medicine; PCP Physician Assistant Medical
DX: R06.02 Shortness of breath (principal); Z86.16 Personal history of COVID-19; Z20.822 Contact with and (suspected) exposure to COVID-19; Z86.19 Personal history of other infectious and parasitic diseases
CPT/HCPCS: 36415; 71046; 71275; 80053; 81001; 82550; 83605; 83690; 83735; 83880; 84145; 84484; 85025; 85379; 87635; 93005; 96374; 96375; 99284; 99285; C9803; J1200; J2930; Q9967

== ENCOUNTER 2022-01-15 11:29 | Emergency (ER) | payer MEDICARE, OTHER, SELFPAY ==
[2021-03-06 15:08] VITALS: BMI 36.7
[2022-01-15] VITALS (20 sets, daily range): BP systolic 144–214; BP diastolic 65–83; PULSE 58–78; RESP 16–24; TEMP 36.8; O2SAT 93–100; BMI 41.1
--- NOTE | 2022-01-15 11:54 | DI.RAD.S_ITS ---
PROCEDURE: XR CHEST 1V INDICATIONS: chest pain TECHNIQUE: One view of the chest was acquired. COMPARISON: [facility], CR, XR CHEST 2V, 12/18/2021, 14:19. FINDINGS: Surgical changes and devices: None. Lungs and pleura: Lungs are clear. No pleural effusions or pneumothorax. Mediastinum: Mediastinal contours appear normal. Heart size is is enlarged. Bones and chest wall: No suspicious bony lesions. Overlying soft tissues appear unremarkable. IMPRESSION: No acute pulmonary process. Dictated by: Debby Sahu M.D. on 01/15/2022 at 12:36 Approved by: Debby Sahu M.D. on 01/15/2022 at 12:36
--- NOTE | 2022-01-15 12:36 | PC.NURSE ---
PIV x1 unsuccessful
--- NOTE | 2022-01-15 12:55 | DI.CT.S_ITS ---
PROCEDURE: CT HEAD/BRAIN WO CON INDICATIONS: Fall and hit head TECHNIQUE: Noncontrast 4.5 mm thick angled axial sections acquired from the foramen magnum to the vertex, with coronal and sagittal reformats. For radiation dose reduction, the following was used: automated exposure control, adjustment of mA and/or kV according to patient size. COMPARISON: [facility], CT, CT HEAD/BRAIN WO CON, 01/14/2021, 19:45. FINDINGS: Image quality: Excellent. CSF spaces: Basal cisterns are patent. No extra-axial fluid collections. The ventricles are symmetric in size and shape. Brain: No intracranial bleeds or masses. There is cerebral volume loss for age, with resultant ventricular and sulcal prominence. There are periventricular and deep white matter chronic small vessel ischemic changes. There is intracranial internal carotid artery atherosclerosis. Skull and face: Sequela of prior osteotomy of the frontal sinus. No acute calvarial fracture. Sinuses: Visualized sinuses and mastoids are clear. IMPRESSION: 1. No intracranial hemorrhage. 2. Sequela of chronic microvascular ischemic disease. 3. Postsurgical changes to the frontal bone/sinus. Dictated by: Richie Lan M.D. on 01/15/2022 at 13:16 Approved by: Richie Lan M.D. on 01/15/2022 at 13:19
--- NOTE | 2022-01-15 12:58 | ED_ITS ---
HPI - Dizziness <Oliver Mendoza PA-C - Last Filed: 01/15/22 16:55> General Chief Complaint: Dizziness Stated Complaint: Fall/Hit Head/Arm/Buttock/Rib Pain/Dizzy Time Seen by Provider: 01/15/22 12:09 Source: patient and family Mode of arrival: Ambulatory History of Present Illness HPI Narrative: Patient is a 86-year-old female presents today with complaint fall. Fell on of last week while she was cleaning up animal feces. Noticed that after she failed her walker rolled onto her. Cannot recall if it was a slip or if she actually passed out. Admits to falling twice in the past been both falls were not recent, they were years ago. Admits to having a total of 6 stents 6 stents that were placed at 3 different times in 2019. Has complaints of left- sided face pain over I and left-sided pain in general. Denies any Other concerns. Related Data Home Medications Medication Instructions Recorded Confirmed aspirin 81 mg tablet,delayed 81 mg PO DAILY ##0 05/14/17 03/06/21 release nitroglycerin 0.4 mg sublingual 1 tab sublingual [id number] PRN Chest 11/18/18 03/06/21 tablet Pain rosuvastatin 40 mg tablet 40 mg PO QPM 11/18/18 03/06/21 ranolazine 500 mg tablet,extended 500 mg PO BID 02/09/20 03/06/21 release,12 hr escitalopram oxalate 20 mg tablet 20 mg PO DAILY 03/06/21 03/06/21 pantoprazole 40 mg tablet,delayed 40 mg PO DAILY 03/06/21 03/06/21 release alprazolam 0.5 mg tablet 0.5 mg PO Q6HR anxiety 03/10/21 03/10/21 Previous Rx's Medication Instructions Recorded furosemide 40 mg tablet 40 mg PO DAILY #30 tabs 02/09/20 metoprolol tartrate 50 mg tablet 50 mg PO TID #60 tabs 03/11/21 oxycodone-acetaminophen 5 mg-325 1 tab PO Q6H PRN pain #14 tabs 06/14/21 mg tablet oxycodone-acetaminophen 5 mg-325 1 tab PO Q6H PRN pain #14 tabs 06/14/21 mg tablet oxycodone-acetaminophen 5 mg-325 1 tab PO Q6H PRN pain #15 tabs 06/14/21 mg tablet prednisone 5 mg tablet 5 mg PO DAILY #20 tabs 06/14/21 prednisone 5 mg tablet 5 mg PO DAILY #20 tabs 06/14/21 prednisone 5 mg tablet 5 mg PO DAILY #20 tabs 06/14/21 Allergies Allergy/AdvReac Type Severity Reaction Status Date / Time erythromycin base Allergy Severe Rash Verified 12/18/21 14:07 [ERYTHROMYCIN BASE] ibuprofen [IBUPROFEN] Allergy Severe Rash Verified 12/18/21 14:07 Iodinated Contrast Media Allergy Severe Unconscious Verified 12/18/21 14:07 [IODINATED CONTRAST- ORAL AND IV DYE] morphine [MORPHINE] Allergy Severe Rash Verified 12/18/21 14:07 naproxen [From ALEVE] Allergy Severe Rash Verified 12/18/21 14:07 telmisartan [TELMISARTAN] Allergy Severe Rash Verified 12/18/21 14:07 Review of Systems <Oliver Mendoza PA-C - Last Filed: 01/15/22 16:55> Review of Systems Narrative: R.O.S.: General: No fever, chills or fatigue. Cardiovascular: No chest pain or palpitations Respiratory: No S.O.B. HEENT: No congestion, ear pain, rhinorrhea, sore throat or tinnitus Gastrointestinal: No nausea or vomiting Skin: No rash or associated abnormalities Musculoskeletal: No pain in muscles or joints, no limitation of range of motion, no paresthesia or numbness. ?? Neurological: Awake, alert and in not apparent distress. Pain to left face, denies changes in vision or other related neurological concerns. Patient History <Oliver Mendoza PA-C - Last Filed: 01/15/22 16:55> Medical History (Updated 01/15/22 @ 16:51 by Oliver Mendoza PA-C) Cardiac arrest Chest pain Coronary artery disease Diastolic heart failure Hyperlipidemia Hypertension Left hamstring muscle strain NSTEMI (non-ST elevated myocardial infarction) Skin cancer UTI (urinary tract infection) Surgical History H/O right heart catheterization History of appendectomy History of breast implant removal History of breast surgery History of cholecystectomy History of coronary artery stent placement History of total abdominal hysterectomy Family History Father Hypertension Diabetes mellitus Mother Hypertension [place] (myocardial infarction) Sister [place] (myocardial infarction) S/P CABG x 4 Social History household members: children Smoking Status: Never smoker Smoking Status: Never smoker alcohol intake frequency: holidays/special occasions only Substance Use Type: does not use Exam <Oliver Mendoza PA-C - Last Filed: 01/15/22 16:55> Narrative Exam Narrative: Physical Exam: ? General: normal appearance, well developed, well nourished, alert, and awake. Not in acute distress. ? Head: Normocephalic, no lesions. Chest: Lungs CTAB, no rales, rhonchi or wheezes. ?? Heart: RRR, no murmurs, rubs or gallops. Eyes: PERRLA, EOM's full, conjunctivae clear. ? Neuro: Physiological, CN3-12 intact.Note: Right pupil is smaller than left, but is reactive. ?? Extremities: Warm, well perfused, FROM, no deformities, no edema. ?? Skin: Normal, no rashes, no lesions noted. ?? PSYCHIATRIC: The mood is good, no blunted affect. Speech is clear. Thought process is linear, thought content is appropriate. The voice is without significant inflection. Gastrointestinal: Has Left sided CVA tenderness, Soft; NT; ND; Pos BS with Neg. rebound tenderness. No scars or major deformities noted on Visual Inspection. Initial Vital Signs Initial Vital Signs: Vital Signs Pulse Rate 62 01/15/22 11:43 Respiratory Rate 18 01/15/22 11:43 Pulse Oximetry 100 01/15/22 11:43 Oxygen Delivery Method 01/15/22 11:43 Oxygen Flow Rate 2 01/15/22 11:43 <Cherry Riggins DO - Last Filed: 01/16/22 07:28> Narrative Exam Narrative: Physical Exam: ? General: normal appearance, well developed, well nourished, alert, and awake. Not in acute distress. ? Head: Normocephalic, no lesions. Chest: Lungs CTAB, no rales, rhonchi or wheezes. ?? Heart: RRR, no murmurs, rubs or gallops. Eyes: PERRLA, EOM's full, conjunctivae clear. ? Neuro: Physiological, C3-12 intact.Note: Right pupil is smaller than left, but is reactive. ?? Extremities: Warm, well perfused, FROM, no deformities, no edema. ?? Skin: Normal, no rashes, no lesions noted. ?? PSYCHIATRIC: The mood is good, no blunted affect. Speech is clear. Thought process is linear, thought content is appropriate. The voice is without significant inflection. Gastrointestinal: Has Left sided CVA tenderness, Soft; NT; ND; Pos BS with Neg. rebound tenderness. No scars or major deformities noted on Visual Inspection. Initial Vital Signs Initial Vital Signs: Vital Signs Pulse Rate 62 01/15/22 11:43 Respiratory Rate 18 01/15/22 11:43 Pulse Oximetry 100 01/15/22 11:43 Oxygen Delivery Method 01/15/22 11:43 Oxygen Flow Rate 2 01/15/22 11:43 Course <Oliver Mendoza PA-C - Last Filed: 01/15/22 16:55> Orders Ordered: Discontinued Medications Acetaminophen (Acetaminophen 325 Mg Tablet) 650 mg PO NOW ONE Stop: 01/15/22 15:52 Last Admin: 01/15/22 15:59 Dose: 650 mg Documented By: RB Vital Signs Vital signs: Vital Signs - 8 hr 01/15/22 11:46 01/15/22 11:43 01/15/22 11:45 Temperature 98.2 F Pulse Rate 63 62 Respiratory Rate 20 18 Blood Pressure 214/83 H 214/83 H Pulse Oximetry 100 100 Oxygen Delivery Method Nasal Cannula Nasal Cannula Oxygen Flow Rate 2 2 01/15/22 11:45 01/15/22 12:00 01/15/22 12:01 Temperature Pulse Rate 60 58 L 58 L Respiratory Rate 18 20 22 Blood Pressure Pulse Oximetry 100 99 99 Oxygen Delivery Method Nasal Cannula Oxygen Flow Rate 2 01/15/22 12:01 01/15/22 12:16 01/15/22 12:16 Temperature Pulse Rate 61 Respiratory Rate 22 Blood Pressure 169/71 H 177/76 H Pulse Oximetry 98 Oxygen Delivery Method Oxygen Flow Rate 01/15/22 12:30 01/15/22 12:46 01/15/22 12:46 Temperature Pulse Rate 59 L 60 Respiratory Rate 21 18 Blood Pressure 176/74 H Pulse Oximetry 99 97 Oxygen Delivery Method Oxygen Flow Rate 01/15/22 13:00 01/15/22 13:00 01/15/22 13:15 Temperature Pulse Rate 58 L 60 Respiratory Rate 20 21 Blood Pressure 150/65 H Pulse Oximetry 98 97 Oxygen Delivery Method Oxygen Flow Rate 01/15/22 13:15 01/15/22 13:30 01/15/22 13:30 Temperature Pulse Rate 60 Respiratory Rate 20 Blood Pressure 158/67 H 154/67 H Pulse Oximetry 98 Oxygen Delivery Method Oxygen Flow Rate 01/15/22 14:00 01/15/22 14:30 01/15/22 14:34 Temperature Pulse Rate 67 71 68 Respiratory Rate 17 24 24 Blood Pressure Pulse Oximetry 99 99 95 Oxygen Delivery Method Oxygen Flow Rate 01/15/22 14:34 01/15/22 14:45 01/15/22 14:45 Temperature Pulse Rate 67 Respiratory Rate 22 Blood Pressure 150/67 H 159/68 H Pulse Oximetry 99 Oxygen Delivery Method Oxygen Flow Rate 01/15/22 15:03 01/15/22 15:30 01/15/22 16:00 Temperature Pulse Rate 78 71 66 Respiratory Rate 20 24 22 Blood Pressure Pulse Oximetry 93 99 99 Oxygen Delivery Method Oxygen Flow Rate 01/15/22 16:30 Temperature Pulse Rate 63 Respiratory Rate 22 Blood Pressure Pulse Oximetry 99 Oxygen Delivery Method Oxygen Flow Rate <Cherry Riggins, - Last Filed: 01/16/22 07:28> Orders Ordered: Discontinued Medications Acetaminophen (Acetaminophen 325 Mg Tablet) 650 mg PO NOW ONE Stop: 01/15/22 15:52 Last Admin: 01/15/22 15:59 Dose: 650 mg Documented By: RB Vital Signs Vital signs: Vital Signs - 8 hr 01/15/22 11:46 01/15/22 11:43 01/15/22 11:45 Temperature 98.2 F Pulse Rate 63 62 Respiratory Rate 20 18 Blood Pressure 214/83 H 214/83 H Pulse Oximetry 100 100 Oxygen Delivery Method Nasal Cannula Nasal Cannula Oxygen Flow Rate 2 2 01/15/22 11:45 01/15/22 12:00 01/15/22 12:01 Temperature Pulse Rate 60 58 L 58 L Respiratory Rate 18 20 22 Blood Pressure Pulse Oximetry 100 99 99 Oxygen Delivery Method Nasal Cannula Oxygen Flow Rate 2 01/15/22 12:01 01/15/22 12:16 01/15/22 12:16 Temperature Pulse Rate 61 Respiratory Rate 22 Blood Pressure 169/71 H 177/76 H Pulse Oximetry 98 Oxygen Delivery Method Oxygen Flow Rate 01/15/22 12:30 01/15/22 12:46 01/15/22 12:46 Temperature Pulse Rate 59 L 60 Respiratory Rate 21 18 Blood Pressure 176/74 H Pulse Oximetry 99 97 Oxygen Delivery Method Oxygen Flow Rate 01/15/22 13:00 01/15/22 13:00 01/15/22 13:15 Temperature Pulse Rate 58 L 60 Respiratory Rate 20 21 Blood Pressure 150/65 H Pulse Oximetry 98 97 Oxygen Delivery Method Oxygen Flow Rate 01/15/22 13:15 01/15/22 13:30 01/15/22 13:30 Temperature Pulse Rate 60 Respiratory Rate 20 Blood Pressure 158/67 H 154/67 H Pulse Oximetry 98 Oxygen Delivery Method Oxygen Flow Rate 01/15/22 14:00 01/15/22 14:30 01/15/22 14:34 Temperature Pulse Rate 67 71 68 Respiratory Rate 17 24 24 Blood Pressure Pulse Oximetry 99 99 95 Oxygen Delivery Method Oxygen Flow Rate 01/15/22 14:34 01/15/22 14:45 01/15/22 14:45 Temperature Pulse Rate 67 Respiratory Rate 22 Blood Pressure 150/67 H 159/68 H Pulse Oximetry 99 Oxygen Delivery Method Oxygen Flow Rate 01/15/22 15:03 01/15/22 15:30 01/15/22 16:00 Temperature Pulse Rate 78 71 66 Respiratory Rate 20 24 22 Blood Pressure Pulse Oximetry 93 99 99 Oxygen Delivery Method Oxygen Flow Rate 01/15/22 16:30 Temperature Pulse Rate 63 Respiratory Rate 22 Blood Pressure Pulse Oximetry 99 Oxygen Delivery Method Oxygen Flow Rate MDM - Dizziness <Oliver Mendoza PA-C - Last Filed: 01/15/22 16:55> Lab Data Result diagrams: 01/15/22 13:16 01/15/22 13:16 Labs: Lab Results 01/15/22 01/15/22 01/15/22 Range/Units 13:16 13:16 15:00 WBC 7.8 (4.5-11.0) X10^3/uL RBC 4.68 (4.0-5.2) X10^6/uL Hgb 12.9 (12.0-16.0) g/dL Hct 38.4 (36-46) % MCV 82.1 (80-100) fL MCH 27.5 (26-34) PG MCHC 33.5 (30-36) % RDW 17.7 H (11.6-14.8) % Plt Count 240 (150-400) X10^3/uL Neut % (Auto) 57.2 (50-75) % Lymph % (Auto) 29.3 (25-40) % [place] % (Auto) 9.6 (3-14) % Eos % (Auto) 3.2 (2-4) % Baso % (Auto) 0.7 (0-2) % Neut # (Auto) 4500 (4505-3828) /uL Lymph # (Auto) 2300 (1610-8473) /uL [place] # (Auto) 800 (0-900) /uL Eos # (Auto) 300 (0-450) /uL Baso # (Auto) 100 (0-100) /uL Sodium 138 (137-145) mmol/L Potassium 3.8 (3.4-5.1) mmol/L Chloride 102 (98-107) mmol/L Carbon Dioxide 30 (22-32) mmol/L BUN 18 H (7-17) mg/dL Creatinine 1.08 H (0.52-1.04) mg/dL Estimated GFR 51 L (>60) mL/min BUN/Creatinine Ratio 16.7 (6-22) Glucose 102 (80-110) mg/dL Calcium 8.8 (8.4-10.2) mg/dL Magnesium 2.0 (1.6-2.3) mg/dL Total Bilirubin 0.4 (0.2-1.3) mg/dL AST 20 (14-36) IU/L ALT 8 (<35) IU/L Alkaline Phosphatase 58 (38-126) U/L Total Creatine Kinase 35 (30-135) U/L CK-MB (CK-2) TNP CK-MB (CK-2) Rel Index TNP Troponin I 0.014 (0.01-0.034) ng/mL Total Protein 7.1 (6.3-8.2) g/dL Albumin 3.9 (3.5-5.0) g/dL Globulin 3.2 (1.7-4.1) g/dL Albumin/Globulin Ratio 1.2 (1.0-2.8) Lipase 122 (23-300) U/L Urine Color Yellow Urine Appearance Clear Urine pH 6.5 (4.5-8.0) Ur Specific [place] 1.010 (1.000-1.035) Urine Protein Trace H (Negative) Urine Glucose (UA) Negative (Negative) g/dL Urine Ketones Negative (NEGATIVE) Urine Occult Blood Trace-lysed (Negative) Urine Nitrate Negative (Negative) Urine Bilirubin Negative (NEGATIVE) Urine Urobilinogen 0.2 (0.2) E.U./dL Ur Leukocyte Esterase Negative (NEGATIVE) Urine RBC 1-5/hpf (0-5/HPF) Urine WBC None seen (0-5/HPF) Amorphous Sediment 3+ Urine Bacteria None seen (None) Ur Culture Indicated? Cult not indicated Micro UA Comment Microscopic normal Imaging Data Chest x-ray: Radiologist's Impression: PROCEDURE:? XR CHEST 1V ? INDICATIONS:? chest pain ? TECHNIQUE:? One view of the chest was acquired.? ? COMPARISON:? [facility], CR, XR CHEST 2V, 12/18/2021, 14:19. ? FINDINGS:? ? Surgical changes and devices:? None.? ? Lungs and pleura:? Lungs are clear.? No pleural effusions or pneumothorax.? ? Mediastinum:? Mediastinal contours appear normal.? Heart size is is enlarged. ? Bones and chest wall:? No suspicious bony lesions.? Overlying soft tissues appear unremarkable.? ? IMPRESSION:? No acute pulmonary process. ? ? Dictated by: Debby Sahu M.D. on 01/15/2022 at 12:36 ? ? Approved by: Debby Sahu M.D. on 01/15/2022 at 12:36? CT scan - head: Radiologist's Impression: PROCEDURE:? CT HEAD/BRAIN WO CON ? INDICATIONS:? Fall and hit head ? TECHNIQUE:? Noncontrast 4.5 mm thick angled axial sections acquired from the foramen magnum to the vertex, with coronal and sagittal reformats.? For radiation dose reduction, the following was used:? automated exposure control, adjustment of mA and/or kV according to patient size.? ? COMPARISON:? [facility], CT, CT HEAD/BRAIN WO CON, 01/14/2021, 19:45. ? FINDINGS:? Image quality:? Excellent.? ? CSF spaces:? Basal cisterns are patent.? No extra-axial fluid collections.? The ventricles are symmetric in size and shape.? ? Brain:? No intracranial bleeds or masses.? There is cerebral volume loss for age, with resultant ventricular and sulcal prominence.? There are periventricular and deep white matter chronic small vessel ischemic changes.? There is intracranial internal carotid artery atherosclerosis.? ? Skull and face:? 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 No acute calvarial fracture. ? Sinuses:? Visualized sinuses and mastoids are clear.? ? IMPRESSION:? 1. No intracranial hemorrhage. 2. Sequela of chronic microvascular ischemic disease.? 3. Postsurgical changes to the frontal bone/sinus.? ? Dictated by: Richie Lan M.D. on 01/15/2022 at 13:16 ? ? Approved by: Richie Lan M.D. on 01/15/2022 at 13:19 ? MDM Narrative Medical decision making narrative: Patient is an 86 year old female who presents to the emergency room today with complaint left-sided face pain after fall . Physical exam was for any region emergent acute concerns at this time. ECG was done and reviewed by Dr. Riggins to be similar to prior with no changes. CT scan of head with no contrast ordered. Labs ordered to rule out infection and other potential causes of the fall to include hypoglycemia anemia and other lab related disorders. Chest from labs and other diagnostic studies did not confirm any infections or any other acute emergent concerns. Patient is discharged home with instructions on how to prevent falls and was advised to return to the emergency room if any emergent concerns arise patient agrees to plan <Cherry Riggins, DO - Last Filed: 01/16/22 07:28> Lab Data Labs: Lab Results 01/15/22 01/15/22 01/15/22 Range/Units 13:16 13:16 15:00 WBC 7.8 (4.5-11.0) X10^3/uL RBC 4.68 (4.0-5.2) X10^6/uL Hgb 12.9 (12.0-16.0) g/dL Hct 38.4 (36-46) % MCV 82.1 (80-100) fL MCH 27.5 (26-34) PG MCHC 33.5 (30-36) % RDW 17.7 H (11.6-14.8) % Plt Count 240 (150-400) X10^3/uL Neut % (Auto) 57.2 (50-75) % Lymph % (Auto) 29.3 (25-40) % [place] % (Auto) 9.6 (3-14) % Eos % (Auto) 3.2 (2-4) % Baso % (Auto) 0.7 (0-2) % Neut # (Auto) 4500 (6751-0356) /uL Lymph # (Auto) 2300 (7580-7459) /uL [place] # (Auto) 800 (0-900) /uL Eos # (Auto) 300 (0-450) /uL Baso # (Auto) 100 (0-100) /uL Sodium 138 (137-145) mmol/L Potassium 3.8 (3.4-5.1) mmol/L Chloride 102 (98-107) mmol/L Carbon Dioxide 30 (22-32) mmol/L BUN 18 H (7-17) mg/dL Creatinine 1.08 H (0.52-1.04) mg/dL Estimated GFR 51 L (>60) mL/min BUN/Creatinine Ratio 16.7 (6-22) Glucose 102 (80-110) mg/dL Calcium 8.8 (8.4-10.2) mg/dL Magnesium 2.0 (1.6-2.3) mg/dL Total Bilirubin 0.4 (0.2-1.3) mg/dL AST 20 (14-36) IU/L ALT 8 (<35) IU/L Alkaline Phosphatase 58 (38-126) U/L Total Creatine Kinase 35 (30-135) U/L CK-MB (CK-2) TNP CK-MB (CK-2) Rel Index TNP Troponin I 0.014 (0.01-0.034) ng/mL Total Protein 7.1 (6.3-8.2) g/dL Albumin 3.9 (3.5-5.0) g/dL Globulin 3.2 (1.7-4.1) g/dL Albumin/Globulin Ratio 1.2 (1.0-2.8) Lipase 122 (23-300) U/L Urine Color Yellow Urine Appearance Clear Urine pH 6.5 (4.5-8.0) Ur Specific [place] 1.010 (1.000-1.035) Urine Protein Trace H (Negative) Urine Glucose (UA) Negative (Negative) g/dL Urine Ketones Negative (NEGATIVE) Urine Occult Blood Trace-lysed (Negative) Urine Nitrate Negative (Negative) Urine Bilirubin Negative (NEGATIVE) Urine Urobilinogen 0.2 (0.2) E.U./dL Ur Leukocyte Esterase Negative (NEGATIVE) Urine RBC 1-5/hpf (0-5/HPF) Urine WBC None seen (0-5/HPF) Amorphous Sediment 3+ Urine Bacteria None seen (None) Ur Culture Indicated? Cult not indicated Micro UA Comment Microscopic normal ECG Data Attestation: I personally reviewed and interpreted this ECG as follows: Interpretation: Sinus bradycardia incomplete right bundle-branch, rate of 50 9p are 186 QRS of 94 and QTC 485. No acute ST changes. Patient has prior from 12/18/2021 which appears similar. Discharge Plan Departure Patient Disposition: Home Clinical Impression: Fall, Face pain Instructions: How to Prevent Falls Activity Restrictions/Additional Instructions: *You have been diagnosed with fall. Labs and diagnostics were done today to rule out acute emergent concerns regarding a possible head injury or infection. Your labs and diagnostics did not confirm any emergent concern this time. I suggest she take [id number] nonsteroidal anti-inflammatories for pain and a suggestion return to the emergency room for any emergent concerns arise [ *What to do: *Please continue to take your regular medications as directed. [ ] New medication prescriptions sent to your pharmacy: [ ] [ ] New medication written as a paper prescription [x] No new medications given *Please follow up with your primary care provider in 2-3 days, call for an appointment. Let them know you were seen in the Emergency Department and that we ask that you be seen in follow up. We will electronically transmit a record of today's note if your PCP is in our system *If you do not have a primary care provider please contact the [facility] Resource line at [phone]. They will ask some questions about your medical history and help get you set up with a doctor in the community. *Return to Emergency Department if you should have any new, worsening or concerning symptoms, such as [fever greater than 101 F, shaking chills, worsening pain, persistent vomiting or other bothersome symptoms] Prescriptions: No Action aspirin 81 MG tablet,delayed release (DR/EC) 81 mg PO DAILY Qty: 0 ranolazine 500 mg tablet extended release 12 hr 500 mg PO BID furosemide 40 mg tablet 40 mg PO DAILY Qty: 30 0RF pantoprazole 40 mg Tablet,Delayed Release (Dr/Ec) 40 mg PO DAILY escitalopram oxalate 20 mg Tablet 20 mg PO DAILY alprazolam 0.5 mg tablet 0.5 mg PO Q6HR metoprolol tartrate 50 mg Tablet 50 mg PO TID Qty: 60 0RF nitroglycerin 0.4 mg tablet, sublingual 1 tab sublingual [id number] PRN (Reason: Chest Pain) Label Comments: take it when needed, last dose unknown rosuvastatin 40 mg tablet 40 mg PO QPM oxycodone-acetaminophen 5-325 mg tablet 1 tab PO Q6H PRN (Reason: pain) Qty: 15 0RF prednisone 5 mg tablet 5 mg PO DAILY Qty: 20 0RF oxycodone-acetaminophen 5-325 mg tablet 1 tab PO Q6H PRN (Reason: pain) Qty: 14 0RF prednisone 5 mg tablet 5 mg PO DAILY Qty: 20 0RF prednisone 5 mg tablet 5 mg PO DAILY Qty: 20 0RF oxycodone-acetaminophen 5-325 mg tablet 1 tab PO Q6H PRN (Reason: pain) Qty: 14 0RF Referrals: Zoe Bass PA-C [Primary Care Provider] - Visit Report Forms: Patient Portal/API <Cherry Riggins DO - Last Filed: 01/16/22 07:28> Cosign ED Attending Mony Attestation: I was immediately available in the department for consultation. Documentation has been reviewed. Case was discussed with myself based on the time frame single troponin fall appropriate, patient's EKG was seen and evaluated by myself does not show any acute or dynamic changes. Imaging and lab work were also reviewed. Agree with current plan.
[2022-01-15 13:25] LABS: Add Manual Diff / Slide Review NO; Basophils Absolute Auto 100 /uL (0-100); Basophils Percent Auto 0.7 % (0-2); Eosinophils Absolute Auto 300 /uL (0-450); Eosinophils Percent Auto 3.2 % (2-4); Hematocrit 38.4 % (36-46); Hemoglobin 12.9 g/dL (12.0-16.0); Lymphocytes Absolute Auto 2300 /uL (1100-4500); Lymphocytes Percent Auto 29.3 % (25-40); Mean Corpuscular HGB Conc 33.5 % (30-36); Mean Corpuscular Hemoglobin 27.5 PG (26-34); Mean Corpuscular Volume 82.1 fL (80-100); Monocytes Absolute Auto 800 /uL (0-900); Monocytes Percent Auto 9.6 % (3-14); Neutrophils Absolute Auto 4500 /uL (1500-7000); Neutrophils Percent Auto 57.2 % (50-75); Platelet Count 240 X10^3/uL (150-400); Red Blood Cell Count 4.68 X10^6/uL (4.0-5.2); Red Cell Distribution Width 17.7 % (11.6-14.8); White Blood Cell Count 7.8 X10^3/uL (4.5-11.0)
[2022-01-15 13:39] LABS: Alanine Aminotransferase 8 IU/L (<35); Albumin 3.9 g/dL (3.5-5.0); Albumin Globulin Ratio 1.2 (1.0-2.8); Alkaline Phosphatase 58 U/L (38-126); Aspartate Aminotransferase 20 IU/L (14-36); BUN Creatinine Ratio 16.7 (6-22); Bilirubin Total 0.4 mg/dL (0.2-1.3); Blood Urea Nitrogen 18 mg/dL (7-17); Calcium 8.8 mg/dL (8.4-10.2); Carbon Dioxide 30 mmol/L (22-32); Chloride 102 mmol/L (98-107); Creatine Kinase 35 U/L (30-135); Estimated Glomerular Filt Rate 51 mL/min (>60); Globulin 3.2 g/dL (1.7-4.1); Glucose 102 mg/dL (80-110); HEMOLYSIS < 15 (0-50); Lipase 122 U/L (23-300); Potassium 3.8 mmol/L (3.4-5.1); Sodium 138 mmol/L (137-145); Total Protein 7.1 g/dL (6.3-8.2)
[2022-01-15 13:50] LABS: Troponin I 0.014 ng/mL (0.01-0.034)
[2022-01-15 15:16] LABS: Appearance Urine UA CLEAR; Bilirubin Urine UA NEGATIVE (NEGATIVE); Color Urine UA YELLOW; Glucose Urine UA NEGATIVE (Negative); Ketones Urine UA NEGATIVE (NEGATIVE); Leukocyte Esterase Urine UA NEGATIVE (NEGATIVE); Nitrite Urine UA NEGATIVE (Negative); Occult Blood Urine UA TRACE-LYSED (Negative); Protein Urine UA TRACE (Negative); Urobilinogen Urine UA 0.2 E.U./dL (0.2)
[2022-01-15 15:18] LABS: pH Urine UA 6.5 (4.5-8.0)
[2022-01-15 15:22] LABS: RBC Urine 1-5/HPF (0-5/HPF)
[2022-01-15 15:23] LABS: Amorphous Sediment Urine 3+; Bacteria Urine None Seen; Urine Comments Microscopic Normal; WBC Urine None Seen (0-5/HPF)
[2022-01-15 15:25] LABS: Culture Indicated Urine Cult Not Indicated
[2022-01-15] MEDS: ACETAMINOPHEN 325 MG TABLET 650 MG PO (15:59)
== END 2022-01-15 17:07 | disposition home or self-care (01) ==
PROVIDERS: Emergency Medicine; Emergency Provider Physician Assistant; Family Provider Internal Medicine; PCP Physician Assistant Medical
DX: R51.9 Headache, unspecified (principal); R07.9 Chest pain, unspecified; S09.90XA Unspecified injury of head, initial encounter; R42 Dizziness and giddiness; W19.XXXA Unspecified fall, initial encounter
CPT/HCPCS: 36415; 70450; 71045; 80053; 81001; 82550; 83690; 83735; 84484; 85025; 93005; 99284; 99285

== ENCOUNTER 2022-04-25 15:35 | Observation (INO) | payer MEDICARE, OTHER, SELFPAY ==
[2021-03-06 15:08] VITALS: BMI 36.7
[2022-04-25] VITALS (21 sets, daily range): BP systolic 121–206; BP diastolic 49–86; PULSE 60–75; RESP 12–28; TEMP 36.6; O2SAT 96–99; BMI 37.8
--- NOTE | 2022-04-25 16:02 | DI.RAD.S_ITS ---
PROCEDURE: XR CHEST 1V INDICATIONS: Shortness of breath TECHNIQUE: One view of the chest was acquired. COMPARISON: [facility], , XR CHEST 1V, 01/15/2022, 12:04. FINDINGS: Surgical changes and devices: None. Lungs and pleura: Lungs are clear. No pleural effusions or pneumothorax. Mediastinum: Mediastinal contours appear normal. Heart size is enlarged. Bones and chest wall: No suspicious bony lesions. Overlying soft tissues appear unremarkable. IMPRESSION: No acute cardiopulmonary pathology. Dictated by: Edmundo Deng M.D. on 04/25/2022 at 16:20 Approved by: Edmundo Deng M.D. on 04/25/2022 at 16:23
--- NOTE | 2022-04-25 16:46 | PC.NURSE ---
PIV missed x2
[2022-04-25 18:15] LABS: Add Manual Diff / Slide Review NO; Basophils Absolute Auto 100 /uL (0-100); Basophils Percent Auto 0.8 % (0-2); Eosinophils Absolute Auto 100 /uL (0-450); Eosinophils Percent Auto 1.6 % (2-4); Hematocrit 40.1 % (36-46); Hemoglobin 13.2 g/dL (12.0-16.0); Lymphocytes Absolute Auto 2400 /uL (1100-4500); Lymphocytes Percent Auto 26.7 % (25-40); Mean Corpuscular HGB Conc 32.9 % (30-36); Mean Corpuscular Volume 82.2 fL (80-100); Monocytes Absolute Auto 700 /uL (0-900); Neutrophils Absolute Auto 5600 /uL (1500-7000); Neutrophils Percent Auto 62.9 % (50-75); Platelet Count 263 X10^3/uL (150-400); Red Blood Cell Count 4.88 X10^6/uL (4.0-5.2); Red Cell Distribution Width 17.9 % (11.6-14.8)
[2022-04-25 18:16] LABS: INR 1.1 (0.9-1.3)
[2022-04-25 18:23] LABS: Lactate (Lactic Acid) 2.5 mmol/L (0.7-2.1)
[2022-04-25 18:24] LABS: Alanine Aminotransferase 11 IU/L (<35); Albumin 4.2 g/dL (3.5-5.0); Albumin Globulin Ratio 1.2 (1.0-2.8); Alkaline Phosphatase 65 U/L (38-126); Aspartate Aminotransferase 20 IU/L (14-36); BUN Creatinine Ratio 14.6 (6-22); Bilirubin Total 0.4 mg/dL (0.2-1.3); Blood Urea Nitrogen 23 mg/dL (7-17); Calcium 9.3 mg/dL (8.4-10.2); Carbon Dioxide 30 mmol/L (22-32); Chloride 99 mmol/L (98-107); Estimated Glomerular Filt Rate 32 mL/min (>60); Globulin 3.4 g/dL (1.7-4.1); Glucose 143 mg/dL (80-110); HEMOLYSIS < 15 (0-50); Potassium 3.6 mmol/L (3.4-5.1); Sodium 139 mmol/L (137-145); Total Protein 7.6 g/dL (6.3-8.2)
[2022-04-25 18:36] LABS: NT-proBNP (BNP-Adult 18+) 630 pg/mL (<450); Troponin I 0.024 ng/mL (0.01-0.034)
--- NOTE | 2022-04-25 18:52 | DI.CT.S_ITS ---
PROCEDURE: CT HEAD/BRAIN WO CON INDICATIONS: Dizzy/syncope TECHNIQUE: Noncontrast 4.5 mm thick angled axial sections acquired from the foramen magnum to the vertex, with coronal and sagittal reformats. For radiation dose reduction, the following was used: automated exposure control, adjustment of mA and/or kV according to patient size. COMPARISON: [facility], CT, CT HEAD/BRAIN WO CON, 01/15/2022, 13:42. FINDINGS: Image quality: Excellent. CSF spaces: Basal cisterns are patent. No extra-axial fluid collections. Ventricles are normal in size and shape. Brain: Atrophy and multifocal white matter chronic ischemic change present. No intracranial hemorrhage or mass effect. No midline shift. Skull and face: Calvarium and visualized facial bones are intact, without suspicious lesions. Sinuses: There is been previous surgical frontal sinus obliteration. Remainder of the paranasal sinuses unremarkable. IMPRESSION: 1. Atrophy and white matter chronic ischemic change, stable from prior. 2. Previous surgical frontal sinus obliteration Approved by: Wu Jasso M.D. on 04/25/2022 at 18:19
--- NOTE | 2022-04-25 18:53 | ED_ITS ---
HPI - General Adult General Chief complaint: Shortness of Breath/Dyspnea Stated complaint: dizzy, leg pain, sent by [place] [facility] Time Seen by Provider: 04/25/22 18:41 Source: patient Mode of arrival: Ambulatory History of Present Illness HPI narrative: Pt here with daughter.. Complains of variety of complaints. However chiefly complains of chest discomfort substernal with dizziness and nausea 2 days ago. Has been very dizzy today. No chest pain at this time. No nausea at this time. In the past few weeks she is had 3 near syncopal episodes. One time she was in the bathroom and fell without any injury. 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 A 3rd episode when she was leaning over to pick another item up and she passed out in the living room. Patient states he is had body aches and chills for the past couple weeks. Notably she is had a lot of sinus maxillary pressure bilaterally with greenish discharge as well. However the chest discomfort was most recently new. Related Data Home Medications Medication Instructions Recorded Confirmed aspirin 81 mg tablet,delayed 81 mg PO DAILY ##0 05/14/17 03/06/21 release nitroglycerin 0.4 mg sublingual 1 tab sublingual [id number] PRN Chest 11/18/18 03/06/21 tablet Pain rosuvastatin 40 mg tablet 40 mg PO QPM 11/18/18 03/06/21 ranolazine 500 mg tablet,extended 500 mg PO BID 02/09/20 03/06/21 release,12 hr escitalopram oxalate 20 mg tablet 20 mg PO DAILY 03/06/21 03/06/21 pantoprazole 40 mg tablet,delayed 40 mg PO DAILY 03/06/21 03/06/21 release alprazolam 0.5 mg tablet 0.5 mg PO Q6HR anxiety 03/10/21 03/10/21 Previous Rx's Medication Instructions Recorded furosemide 40 mg tablet 40 mg PO DAILY #30 tabs 02/09/20 metoprolol tartrate 50 mg tablet 50 mg PO TID #60 tabs 03/11/21 oxycodone-acetaminophen 5 mg-325 1 tab PO Q6H PRN pain #14 tabs 06/14/21 mg tablet oxycodone-acetaminophen 5 mg-325 1 tab PO Q6H PRN pain #14 tabs 06/14/21 mg tablet oxycodone-acetaminophen 5 mg-325 1 tab PO Q6H PRN pain #15 tabs 06/14/21 mg tablet prednisone 5 mg tablet 5 mg PO DAILY #20 tabs 06/14/21 prednisone 5 mg tablet 5 mg PO DAILY #20 tabs 06/14/21 prednisone 5 mg tablet 5 mg PO DAILY #20 tabs 06/14/21 Allergies Allergy/AdvReac Type Severity Reaction Status Date / Time erythromycin base Allergy Severe Rash Verified 04/25/22 16:02 [ERYTHROMYCIN BASE] ibuprofen [IBUPROFEN] Allergy Severe Rash Verified 04/25/22 16:02 Iodinated Contrast Media Allergy Severe Unconscious Verified 04/25/22 16:02 [IODINATED CONTRAST- ORAL AND IV DYE] morphine [MORPHINE] Allergy Severe Rash Verified 04/25/22 16:02 naproxen [From ALEVE] Allergy Severe Rash Verified 04/25/22 16:02 telmisartan [TELMISARTAN] Allergy Severe Rash Verified 04/25/22 16:02 Review of Systems Review of Systems Narrative: GENERAL: Positive chills, fatigue, malaise, fever, sweats. HEENT: negative sinus pain, ear pain, sore throat RESPIRATORY: negative dyspnea, cough CARDIOVASCULAR: negative chest pain, palpitations, positive syncope GASTROINTESTINAL: Positive nausea, negative vomiting, abdominal pain, negative black or bloody stools : negative dysuria, frequency, hematuria MUSCULOSKELETAL: Positive muscle or bony pain SKIN: negative rash, skin lesions NEUROLOGIC: negative weakness, numbness, positive dizziness, ROS Unobtainable: All systems reviewed & are unremarkable except as noted in HPI and below Patient History Medical History Cardiac arrest Chest pain Coronary artery disease Diastolic heart failure Hyperlipidemia Hypertension Left hamstring muscle strain NSTEMI (non-ST elevated myocardial infarction) Skin cancer UTI (urinary tract infection) Surgical History H/O right heart catheterization History of appendectomy History of breast implant removal History of breast surgery History of cholecystectomy History of coronary artery stent placement History of total abdominal hysterectomy Family History Father Hypertension Diabetes mellitus Mother Hypertension [place] (myocardial infarction) Sister NC (myocardial infarction) S/P CABG x 4 Social History household members: children Smoking Status: Never smoker Smoking Status: Never smoker alcohol intake frequency: holidays/special occasions only Substance Use Type: does not use Exam Narrative Exam Narrative: GENERAL: in no distress, not toxic not dyspneic HEAD: Normocephalic. EYES: Pupils equal round No scleral icterus. ENT: Mucous membranes moist. Reproducible bilateral maxillary sinus tenderness NECK: Trachea midline. CARDIOVASCULAR: Regular rate and rhythm without murmurs RESPIRATORY: Clear to auscultation. Breath sounds equal bilaterally. No wheezes, rales, or rhonchi. GASTROINTESTINAL: Abdomen soft, non-tender EXTREMITIES: No gross deformities. BACK: No flank tenderness. NEURO: AOx4. SKIN: Warm and dry PSYCH: Not anxious, is cooperative Initial Vital Signs Initial Vital Signs: Vital Signs Temperature 97.9 F 04/25/22 15:56 Pulse Rate 68 04/25/22 15:56 Respiratory Rate 22 04/25/22 15:56 Blood Pressure 121/59 L 04/25/22 15:56 Pulse Oximetry 97 04/25/22 15:56 Oxygen Delivery Method 04/25/22 15:56 Course Course Decision to Admit Date: 04/25/22 Decision to Admit time: 18:57 Orders Ordered: Alprazolam (Alprazolam 0.5 Mg Tablet) 0.5 mg PO Q6HR PRN PRN Reason: Agitation Aspirin (Aspirin Ec 81 Mg Tablet) 81 mg PO DAILY [facility] Atorvastatin Calcium (Atorvastatin 20 Mg Tablet) 40 mg PO BEDTIME [facility] Last Admin: 04/25/22 23:24 Dose: 40 mg Documented By: CTS Enoxaparin Sodium (Enoxaparin 40 Mg/0.4 Ml Syringe) 40 mg SUBCUT DAILY [facility] Escitalopram Oxalate (Escitalopram 10 Mg Tablet) 20 mg PO DAILY [facility] Naloxone HCl (Naloxone 0.4 Mg/Ml Vial) 0.2 mg IV Q2MIN PRN PRN Reason: Opiate Reversal Ondansetron HCl (Ondansetron 4 Mg/2 Ml Inj) 4 mg IV Q8HR PRN PRN Reason: Nausea And Vomiting Ranolazine (Ranolazine 500 Mg Tab.Er.12h) 500 mg PO BID [facility] Last Admin: 04/26/22 02:05 Dose: Not Given Documented By: BV Discontinued Medications Acetaminophen (Acetaminophen 325 Mg Tablet) 650 mg PO NOW ONE Stop: 04/25/22 23:11 Last Admin: 04/25/22 23:24 Dose: 650 mg Documented By: CTS Aspirin (Aspirin 81 Mg Chew Tab) 324 mg PO NOW ONE Stop: 04/25/22 20:02 Last Admin: 04/25/22 21:18 Dose: 324 mg Documented By: LILLIAN Ondansetron HCl (Ondansetron 4 Mg/2 Ml Inj) 4 mg IV NOW ONE Stop: 04/25/22 23:18 Last Admin: 04/25/22 23:24 Dose: 4 mg Documented By: CTS Reevaluation(s) Reevaluation #1: Updated patient and daughter and they do agree for admit. Currently chest pain- free no nausea Time: 20:00 Consultations Consultation #1: Spoke with Cardiology, Dr. Hansen, recommends patient be admitted for echocardiogram and stress test. Time: 19:47 Consultation #2: Spoke with hospitalist, dr hunter, will admit Time: 20:10 Vital Signs Vital signs: Vital Signs - 8 hr 04/25/22 15:56 04/25/22 17:32 04/25/22 17:34 Temperature 97.9 F Pulse Rate 68 69 68 Respiratory Rate 22 17 Blood Pressure 121/59 L Pulse Oximetry 97 97 96 Oxygen Delivery Method Room Air 04/25/22 17:34 04/25/22 18:00 04/25/22 18:01 Temperature Pulse Rate 65 64 Respiratory Rate 15 12 Blood Pressure 189/74 H Pulse Oximetry 98 99 Oxygen Delivery Method 04/25/22 18:01 04/25/22 18:30 04/25/22 18:30 Temperature Pulse Rate 63 Respiratory Rate 13 Blood Pressure 150/65 H 153/67 H Pulse Oximetry 98 Oxygen Delivery Method 04/25/22 19:00 04/25/22 19:01 04/25/22 19:14 Temperature Pulse Rate 63 Respiratory Rate 22 Blood Pressure 128/49 L 152/69 H Pulse Oximetry 97 Oxygen Delivery Method 04/25/22 19:14 04/25/22 19:30 Temperature Pulse Rate 67 65 Respiratory Rate 28 H 25 H Blood Pressure Pulse Oximetry 98 98 Oxygen Delivery Method Medical Decision Making Differential Diagnosis Differential Diagnosis: Atypical chest pain/angina/unstable angina/sinusitis/viral syndrome/orthost Medical Records Medical records narrative: Appropriate for admission. Patient appeared to have vasovagal syncopal episodes in the past few weeks that may have been related to sinusitis however with recent chest pain with nausea and significant heart history, appropriate for admission for echocardiogram and stress test. I did review with assistant professor of biochemistry on-call and recommends admission for echocardiogram and stress test. Family and patient agree for admit. Reviewed with hospitalist agrees for admit. Lab Data Result diagrams: 04/25/22 18:00 04/25/22 18:00 Labs: Lab Results 04/25/22 04/25/22 04/25/22 Range/Units 18:00 18:00 18:00 WBC 9.0 (4.5-11.0) X10^3/uL RBC 4.88 (4.0-5.2) X10^6/uL Hgb 13.2 (12.0-16.0) g/dL Hct 40.1 (36-46) % MCV 82.2 (80-100) fL MCH 27.0 (26-34) PG MCHC 32.9 (30-36) % RDW 17.9 H (11.6-14.8) % Plt Count 263 (150-400) X10^3/uL Neut % (Auto) 62.9 (50-75) % Lymph % (Auto) 26.7 (25-40) % [place] % (Auto) 8.0 (3-14) % Eos % (Auto) 1.6 L (2-4) % Baso % (Auto) 0.8 (0-2) % Neut # (Auto) 5600 (9568-9947) /uL Lymph # (Auto) 2400 (5031-6249) /uL [place] # (Auto) 700 (0-900) /uL Eos # (Auto) 100 (0-450) /uL Baso # (Auto) 100 (0-100) /uL PT 13.0 H (10.1-12.7) SECONDS INR 1.1 (0.9-1.3) Sodium 139 (137-145) mmol/L Potassium 3.6 (3.4-5.1) mmol/L Chloride 99 (98-107) mmol/L Carbon Dioxide 30 (22-32) mmol/L BUN 23 H (7-17) mg/dL Creatinine 1.58 H (0.52-1.04) mg/dL Estimated GFR 32 L (>60) mL/min BUN/Creatinine Ratio 14.6 (6-22) Glucose 143 H (80-110) mg/dL Lactate (0.7-2.1) mmol/L Calcium 9.3 (8.4-10.2) mg/dL Total Bilirubin 0.4 (0.2-1.3) mg/dL AST 20 (14-36) IU/L ALT 11 (<35) IU/L Alkaline Phosphatase 65 (38-126) U/L Troponin I 0.024 (0.01-0.034) ng/mL NT-Pro-B Natriuret Pep 630 H (<450) pg/mL Total Protein 7.6 (6.3-8.2) g/dL Albumin 4.2 (3.5-5.0) g/dL Globulin 3.4 (1.7-4.1) g/dL Albumin/Globulin Ratio 1.2 (1.0-2.8) Chlamy pneumoniae PCR (Not Detect) Adenovirus (PCR) (Not Detect) B. pertussis DNA (PCR) (Not Detecte) B.parapertussis DNA PCR (Not Detecte) Coronavirus OC43 (PCR) (Not Detect) Coronavirus HKU1 (PCR) (Not Detect) Coronavirus 229E (PCR) (Not Detect) SARS-CoV-2 (PCR) (Not Detecte) Coronavirus NL63 (PCR) (Not Detect) Human Metapneumovir PCR (Not Detect) Influenza Type A (PCR) (Not Detect) Influenza Type B (PCR) (Not Detect) M. pneumoniae (PCR) (Not Detect) Parainfluenza 1 (PCR) (Not Detect) Parainfluenza 2 (PCR) (Not Detect) Parainfluenza 3 (PCR) (Not Detect) Parainfluenza 4 (PCR) (Not Detect) RSV (PCR) (Not Detect) Entero/Rhino (PCR) (Not Detect) 04/25/22 04/25/22 Range/Units 18:00 19:45 WBC (4.5-11.0) X10^3/uL RBC (4.0-5.2) X10^6/uL Hgb (12.0-16.0) g/dL Hct (36-46) % MCV (80-100) fL MCH (26-34) PG MCHC (30-36) % RDW (11.6-14.8) % Plt Count (150-400) X10^3/uL Neut % (Auto) (50-75) % Lymph % (Auto) (25-40) % [place] % (Auto) (3-14) % Eos % (Auto) (2-4) % Baso % (Auto) (0-2) % Neut # (Auto) (5759-3425) /uL Lymph # (Auto) (8312-7902) /uL [place] # (Auto) (0-900) /uL Eos # (Auto) (0-450) /uL Baso # (Auto) (0-100) /uL PT (10.1-12.7) SECONDS INR (0.9-1.3) Sodium (137-145) mmol/L Potassium (3.4-5.1) mmol/L Chloride (98-107) mmol/L Carbon Dioxide (22-32) mmol/L BUN (7-17) mg/dL Creatinine (0.52-1.04) mg/dL Estimated GFR (>60) mL/min BUN/Creatinine Ratio (6-22) Glucose (80-110) mg/dL Lactate 2.5 H (0.7-2.1) mmol/L Calcium (8.4-10.2) mg/dL Total Bilirubin (0.2-1.3) mg/dL AST (14-36) IU/L ALT (<35) IU/L Alkaline Phosphatase (38-126) U/L Troponin I (0.01-0.034) ng/mL NT-Pro-B Natriuret Pep (<450) pg/mL Total Protein (6.3-8.2) g/dL Albumin (3.5-5.0) g/dL Globulin (1.7-4.1) g/dL Albumin/Globulin Ratio (1.0-2.8) Chlamy pneumoniae PCR Not detected (Not Detect) Adenovirus (PCR) Not detected (Not Detect) B. pertussis DNA (PCR) Not detected (Not Detecte) B.parapertussis DNA PCR Not detected (Not Detecte) Coronavirus OC43 (PCR) Not detected (Not Detect) Coronavirus HKU1 (PCR) Not detected (Not Detect) Coronavirus 229E (PCR) Not detected (Not Detect) SARS-CoV-2 (PCR) Not detected (Not Detecte) Coronavirus NL63 (PCR) Not detected (Not Detect) Human Metapneumovir PCR Not detected (Not Detect) Influenza Type A (PCR) Not detected (Not Detect) Influenza Type B (PCR) Not detected (Not Detect) M. pneumoniae (PCR) Not detected (Not Detect) Parainfluenza 1 (PCR) Not detected (Not Detect) Parainfluenza 2 (PCR) Not detected (Not Detect) Parainfluenza 3 (PCR) Not detected (Not Detect) Parainfluenza 4 (PCR) Not detected (Not Detect) RSV (PCR) Not detected (Not Detect) Entero/Rhino (PCR) Not detected (Not Detect) Imaging Data Chest x-ray: Radiologist's Impression: [address] [id number] ReportSigned Patient: Lida Townsend TMR#: [id number]: 1935cct:[id number]/Sex: 86 / FDate of Service: 04/25/22Loc: EDAccession Number: [id number] Procedure: XR chest 1V Ordering Provider: Zarina Gu D.O. PROCEDURE: XR CHEST 1V INDICATIONS: Shortness of breath TECHNIQUE: One view of the chest was acquired. COMPARISON: [facility], , XR CHEST 1V, 01/15/2022, 12:04. FINDINGS: Surgical changes and devices: None. Lungs and pleura: Lungs are clear. No pleural effusions or pneumothorax. Mediastinum: Mediastinal contours appear normal. Heart size is enlarged. Bones and chest wall: No suspicious bony lesions. Overlying soft tissues appear unremarkable. IMPRESSION: No acute cardiopulmonary pathology. Dictated by: Edmundo Deng M.D. on 04/25/2022 at 16:20 Approved by: Edmundo Deng M.D. on 04/25/2022 at 16:23 CT scan - head: Radiologist's Impression: [address] [address] [address] Scan Report Signed Patient: Lida Townsend MR#: [id number] : 1935 Acct:[id number] Age/Sex: 86 / F Date of Service: 04/25/22 Loc: ED Accession Number: [id number] ?? Procedure: CT head/brain wo con Ordering Provider: Richie Bull MD PROCEDURE:? CT HEAD/BRAIN WO CON ? INDICATIONS:? Dizzy/syncope ? TECHNIQUE:? Noncontrast 4.5 mm thick angled axial sections acquired from the foramen magnum to the vertex, with coronal and sagittal reformats.? For radiation dose reduction, the following was used:? automated exposure control, adjustment of mA and/or kV according to patient size.? ? COMPARISON:? [facility], CT, CT HEAD/BRAIN WO CON, 01/15/2022, 13:42. ? FINDINGS:? Image quality:? Excellent.? ? CSF spaces:? Basal cisterns are patent.? No extra-axial fluid collections.? Ventricles are normal in size and shape.? ? Brain:? Atrophy and multifocal white matter chronic ischemic change present.? No intracranial hemorrhage or mass effect.? No midline shift. ? Skull and face:? Calvarium and visualized facial bones are intact, without suspicious lesions.? ? Sinuses:? 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 Remainder of the paranasal sinuses unremarkable. ? IMPRESSION:? ? 1. Atrophy and white matter chronic ischemic change, stable from prior. ? 2. Previous surgical frontal sinus obliteration ? ? ? Approved by: Wu Jasos M.D. on 04/25/2022 at 18:19? ECG Data Interpretation: Normal sinus rhythm rate [address] elevation or depression MDM Narrative Medical decision making narrative: Appropriate for admission for variable possibly related symptoms including near- syncope with chest pain and nausea. Reviewed with patient and family agree for admit. Review with hospitalist agrees for admit. Discharge Plan Departure Patient Disposition: Admitted as Observation Clinical Impression: Chest pain Admit Date/Time: 04/25/22 20:10 Admit Provider: Edgar Hunter
[2022-04-25 20:07] LABS: Reflexed Lactate in 2 Hours Y
[2022-04-25 20:44] LABS: Adenovirus Not Detected (Not Detect); B. parapertussis Not Detected (Not Detecte); Bordetella pertussis Not Detected (Not Detecte); Chlamydophila pneumoniae Not Detected (Not Detect); Coronavirus 229E Not Detected (Not Detect); Coronavirus HKU1 Not Detected (Not Detect); Coronavirus NL 63 Not Detected (Not Detect); Coronavirus OC43 Not Detected (Not Detect); Human Metapneumovirus Not Detected (Not Detect); Human Rhinovirus/Enterovirus Not Detected (Not Detect); Influenza A Not Detected (Not Detect); Influenza B Not Detected (Not Detect); Mycoplasma pneumoniae Not Detected (Not Detect); Parainfluenza Virus 1 Not Detected (Not Detect); Parainfluenza Virus 2 Not Detected (Not Detect); Parainfluenza Virus 3 Not Detected (Not Detect); Parainfluenza Virus 4 Not Detected (Not Detect); Respiratory Syncytial Virus Not Detected (Not Detect); SARS- CoV-2 Not Detected (Not Detecte)
[2022-04-25] MEDS: ASPIRIN 81 MG CHEW TAB 324 MG PO (21:18)
--- NOTE | 2022-04-25 21:29 | PM.HP.1 ---
History of Present Illness History of Present Illness Date Patient Seen: 04/25/22 Time Patient Seen: 21:00 Chief complaint: dizzy, leg pain, sent by [place] [facility] Narrative: Ms. Townsend is an 86W with PMH CAD, CHFpEF, HTN, HL, pulmonary fibrosis, remote history of cardiac arrest secondary to med reaction who presents to the hospital with chest pain and shortness of breath. She started having substernal chest discomfort starting a couple days ago. She also had dizziness and nausea. Apparently within the last week she has felt syncopal at least three times. They occurred when going to the bathroom and with positional changes. She also notes myalgias and chills. She notes sinus pressure. In the ED workup was done, vitals notable for tachypnea, O2 sats in the high 90s on room air. Labs notable for WBC 9.0, hgb 13.2, plts 263. Creatinine 1.58. Trop 0.024, BNP 630. Lactate 2.5. Chest xray with no acute process. CT head with no acute process. She was ordered for aspirin. EKG showed no acute ischemia. ED doc did call her cardiology group and documentation liaison fur finisher seamstress recommended stress test and ECHO. Respiratory panel negative. She was admitted for further evaluation. Patient History Medical History Cardiac arrest Chest pain Coronary artery disease Diastolic heart failure Hyperlipidemia Hypertension Left hamstring muscle strain NSTEMI (non-ST elevated myocardial infarction) Skin cancer UTI (urinary tract infection) Surgical History H/O right heart catheterization History of appendectomy History of breast implant removal History of breast surgery History of cholecystectomy History of coronary artery stent placement History of total abdominal hysterectomy Family & Social History Family History Father Hypertension Diabetes mellitus Mother Hypertension [place] (myocardial infarction) Sister [place] (myocardial infarction) S/P CABG x 4 Social History: household members children Prior Living Arrangements House Safety & Behavioral: Feels Safe in Current Yes Environment Been Physically Hurt or No Threatened By a Person Tobacco & Substance use: Smoking Status Never smoker alcohol intake frequency holiday/special occasion Substance Use Type does not use Meds Home Medications and Allergies Home Medications Medication Instructions Recorded Confirmed Type aspirin 81 mg tablet,delayed 81 mg PO DAILY ##0 05/14/17 03/06/21 History release nitroglycerin 0.4 mg sublingual 1 tab sublingual [id number] PRN Chest 11/18/18 03/06/21 History tablet Pain rosuvastatin 40 mg tablet 40 mg PO QPM 11/18/18 03/06/21 History furosemide 40 mg tablet 40 mg PO DAILY #30 tabs 02/09/20 03/06/21 Rx ranolazine 500 mg tablet,extended 500 mg PO BID 02/09/20 03/06/21 History release,12 hr escitalopram oxalate 20 mg tablet 20 mg PO DAILY 03/06/21 03/06/21 History pantoprazole 40 mg tablet,delayed 40 mg PO DAILY 03/06/21 03/06/21 History release alprazolam 0.5 mg tablet 0.5 mg PO Q6HR anxiety 03/10/21 03/10/21 History metoprolol tartrate 50 mg tablet 50 mg PO TID #60 tabs 03/11/21 Rx oxycodone-acetaminophen 5 mg-325 1 tab PO Q6H PRN pain #14 tabs 06/14/21 Rx mg tablet oxycodone-acetaminophen 5 mg-325 1 tab PO Q6H PRN pain #14 tabs 06/14/21 Rx mg tablet oxycodone-acetaminophen 5 mg-325 1 tab PO Q6H PRN pain #15 tabs 06/14/21 Rx mg tablet prednisone 5 mg tablet 5 mg PO DAILY #20 tabs 06/14/21 Rx prednisone 5 mg tablet 5 mg PO DAILY #20 tabs 06/14/21 Rx prednisone 5 mg tablet 5 mg PO DAILY #20 tabs 06/14/21 Rx Allergies Allergy/AdvReac Type Severity Reaction Status Date / Time erythromycin base Allergy Severe Rash Verified 04/25/22 16:02 [ERYTHROMYCIN BASE] ibuprofen [IBUPROFEN] Allergy Severe Rash Verified 04/25/22 16:02 Iodinated Contrast Media Allergy Severe Unconscious Verified 04/25/22 16:02 [IODINATED CONTRAST- ORAL AND IV DYE] morphine [MORPHINE] Allergy Severe Rash Verified 04/25/22 16:02 naproxen [From ALEVE] Allergy Severe Rash Verified 04/25/22 16:02 telmisartan [TELMISARTAN] Allergy Severe Rash Verified 04/25/22 16:02 Review of Systems Review of Systems Narrative: 14 systems reviewed and negative aside from what is noted in HPI Exam Vital Signs (past 8 hours): - 04/25/22 20:30 04/25/22 20:37 04/25/22 20:37 Temperature Pulse Rate 67 65 Respiratory Rate 18 17 Blood Pressure 164/70 H Pulse Oximetry 98 98 Oxygen Delivery Method 04/25/22 20:50 04/25/22 20:50 04/25/22 21:00 Temperature Pulse Rate 73 Respiratory Rate 15 Blood Pressure 188/79 H 173/70 H Pulse Oximetry 97 Oxygen Delivery Method 04/25/22 21:00 04/25/22 21:26 04/25/22 21:26 Temperature Pulse Rate 68 66 Respiratory Rate 23 18 Blood Pressure 155/77 H Pulse Oximetry 97 98 Oxygen Delivery Method 04/25/22 21:30 04/25/22 21:31 04/25/22 21:31 Temperature Pulse Rate 66 66 Respiratory Rate 14 12 Blood Pressure 148/67 H Pulse Oximetry 97 97 Oxygen Delivery Method 04/25/22 22:00 04/25/22 22:01 04/25/22 22:01 Temperature Pulse Rate 61 60 Respiratory Rate 14 12 Blood Pressure 139/64 Pulse Oximetry 97 96 Oxygen Delivery Method 04/26/22 00:09 04/26/22 00:53 Temperature 96.8 F L Pulse Rate 62 Respiratory Rate 19 Blood Pressure 133/41 L Pulse Oximetry 98 Oxygen Delivery Method CPAP Oxygen Delivery Method CPAP Narrative Exam Narrative: GEN: no acute distress Objective Labs Result Diagrams: 04/25/22 18:00 04/25/22 18:00 Labs: Laboratory Results - last 24 hr 04/25/22 04/25/22 04/25/22 18:00 18:00 18:00 WBC 9.0 RBC 4.88 Hgb 13.2 Hct 40.1 MCV 82.2 MCH 27.0 MCHC 32.9 RDW 17.9 H Plt Count 263 Neut % (Auto) 62.9 Lymph % (Auto) 26.7 [place] % (Auto) 8.0 Eos % (Auto) 1.6 L Baso % (Auto) 0.8 Neut # (Auto) 5600 Lymph # (Auto) 2400 [place] # (Auto) 700 Eos # (Auto) 100 Baso # (Auto) 100 PT 13.0 H INR 1.1 Sodium 139 Potassium 3.6 Chloride 99 Carbon Dioxide 30 BUN 23 H Creatinine 1.58 H Estimated GFR 32 L BUN/Creatinine Ratio 14.6 Glucose 143 H Lactate Calcium 9.3 Total Bilirubin 0.4 AST 20 ALT 11 Alkaline Phosphatase 65 Troponin I 0.024 NT-Pro-B Natriuret Pep 630 H Total Protein 7.6 Albumin 4.2 Globulin 3.4 Albumin/Globulin Ratio 1.2 Chlamy pneumoniae PCR Adenovirus (PCR) B. pertussis DNA (PCR) B.parapertussis DNA PCR Coronavirus OC43 (PCR) Coronavirus HKU1 (PCR) Coronavirus 229E (PCR) SARS-CoV-2 (PCR) Coronavirus NL63 (PCR) Human Metapneumovir PCR Influenza Type A (PCR) Influenza Type B (PCR) M. pneumoniae (PCR) Parainfluenza 1 (PCR) Parainfluenza 2 (PCR) Parainfluenza 3 (PCR) Parainfluenza 4 (PCR) RSV (PCR) Entero/Rhino (PCR) 04/25/22 04/25/22 04/26/22 18:00 19:45 02:06 WBC RBC Hgb Hct MCV MCH MCHC RDW Plt Count Neut % (Auto) Lymph % (Auto) [place] % (Auto) Eos % (Auto) Baso % (Auto) Neut # (Auto) Lymph # (Auto) [place] # (Auto) Eos # (Auto) Baso # (Auto) PT INR Sodium Potassium Chloride Carbon Dioxide BUN Creatinine Estimated GFR BUN/Creatinine Ratio Glucose Lactate 2.5 H 1.8 Calcium Total Bilirubin AST ALT Alkaline Phosphatase Troponin I NT-Pro-B Natriuret Pep Total Protein Albumin Globulin Albumin/Globulin Ratio Chlamy pneumoniae PCR Not detected Adenovirus (PCR) Not detected B. pertussis DNA (PCR) Not detected B.parapertussis DNA PCR Not detected Coronavirus OC43 (PCR) Not detected Coronavirus HKU1 (PCR) Not detected Coronavirus 229E (PCR) Not detected SARS-CoV-2 (PCR) Not detected Coronavirus NL63 (PCR) Not detected Human Metapneumovir PCR Not detected Influenza Type A (PCR) Not detected Influenza Type B (PCR) Not detected M. pneumoniae (PCR) Not detected Parainfluenza 1 (PCR) Not detected Parainfluenza 2 (PCR) Not detected Parainfluenza 3 (PCR) Not detected Parainfluenza 4 (PCR) Not detected RSV (PCR) Not detected Entero/Rhino (PCR) Not detected Assessment & Plan Assessment & Plan narrative: 1. Chest pain and shortness of breath -EKG with no acute ischemia -initial troponin 0.026, continue to trend troponins -continue aspirin, statin, ranolazine -her cardiology group recommends echo, stress test 2. Dizziness and presyncope -sounds like possible hypovolemia and orthostatic hypotension -might be secondary to lasix and diuresis -hold lasix -check orthostatics in am -hold metoprolol for now 3. FRANCESCA on CKD stage 2 -suspect secondary to hypovolemia from diuresis -recheck in am -hold lasix -hold on fluid bolus for now given CHF history 4. CHFpEF -hold lasix for now 5. Myalgias -check CK -respiratory panel pcr negative 6. Depression -continue ssri CODE: Full Proxy: Beronica Lam, daughter I have utilized all available resources to reconcile the patient's home medications Time Spent With Patient Critical Care time: I spent a total of [] minutes of critical care time on this patient's care today; this time is exclusive of procedural time. Quality VTE Deep Vein Thrombosis/Pulmonary Embolism Present on Admission: No
--- NOTE | 2022-04-25 21:43 | PC.NURSE ---
Hospitalist at the bedside
--- NOTE | 2022-04-25 22:59 | DI.ECHO.S_ITS ---
[facility] +---------+ : : [address] : [address] : : : : [id number] : : : : Phone: [phone]+ Echocardiogram Report + + :Name: BASIA العراقي Study Date: 04/26/2022 Height: 64 in : :[facility] ReadingLocation: Weight: 220 lb : : Gender: Female BSA: 2.0 m2 : :: 1935 Age: 86 yrs BP: 139/64 mmHg: :Reason For Study: CHEST PAIN, SOB, CHF : :Ordering Physician: IGGY, : :KIRSTEN Performed By: Bebe Alexandra : :Referring: KIRSTEN PARKINSON : + + Interpretation Summary 1) Mildly increased left ventricular thickness (concentric) with normal size, normal wall motion, and normal systolic function (EF 65-70%). 2) The right ventricle grossly appears normal in size with probable normal systolic function. 3) Diastolic parameters suggest a pseudonormalization pattern, consistent with probable elevated filling pressures. 4) No significant valvular abnormallities. 5) Compared to the Echo done 06/28/2020, no significant change. Procedure: A two-dimensional transthoracic echocardiogram with color flow and Doppler was performed. The study quality was technically difficult. Comparison is made with the echocardiogram of 06/28/2020. The patient was in sinus rhythm with heart rates between 60-66 bpm during the exam. Left Ventricle: The left ventricle is normal in size. There is mild concentric left ventricular hypertrophy. The ejection fraction is estimated to be 65-70%. Left ventricular systolic function appears normal without focal wall motion abnormalities. Diastolic parameters suggest a pseudonormalization pattern, consistent with probable elevated filling pressures. Right Ventricle: The right ventricle is not well visualized. The right ventricle grossly appears normal in size with probable normal systolic function. Atria: The left atrium is moderately dilated. The right atrium is normal in size. There is no Doppler evidence for an interatrial shunt. Mitral Valve: There is mild to moderate mitral annular calcification. The mitral valve leaflets are mildly calcified. The mitral valve mean gradient is 3.6 mmHg. There is trace mitral regurgitation. Aortic Valve: The aortic valve opens well. There is no aortic valve stenosis. No aortic regurgitation is present. Tricuspid Valve: The tricuspid valve is not well visualized. There is trace tricuspid regurgitation. Pulmonary artery pressures cannot be estimated because of the lack of a measurable TR jet velocity. Pulmonic Valve: The pulmonic valve is not well visualized. There is trace pulmonic regurgitation. Great Vessels: The aortic root is normal size. The dimensions of the ascending aorta are normal. The IVC is of normal diameter and collapses greater than 50% with a sniff. This suggests a low right atrial pressure of 3 mm Hg. Pericardium/ Pleura There is no pericardial effusion. There is no pleural effusion. MMode/2D Measurements & Calculations LVIDd: 4.7 cm LVOT diam: 2.0 cm LVIDs: 3.1 cm Ao root diam: 2.9 cm FS: 33.1 % asc Aorta Diam: 3.1 cm IVSd: 1.0 cm Ao Arch Diam (Prox Trans): 2.8 cm LVPWd: 1.2 cm LV nelson. diameter/BSA (cm/m^2): 2.3 LV sys. diameter/BSA (cm/m^2): 1.5 LA A2 area: 29.0 cm2 RA long axis: 5.4 cm LA A4 area: 21.7 cm2 RA area: 14.3 cm2 LA length (vol): 6.2 cm RA vol: 31.8 ml LA vol: 85.8 ml RA : 15.6 ml/m2 LA vol index: 42.1 ml/m2 IVC diam: 1.3 cm RVD1 (basal): 3.5 cm TAPSE: 2.1 cm Doppler Measurements & Calculations Ao V2 max: 154.2 cm/sec LVOT Max Wes: 115.5 cm/sec Ao V2 mean: 112.5 cm/sec LV V1 max P.3 mmHg Ao max P.5 mmHg LV V1 VTI: 28.0 cm Ao mean P.4 mmHg YULIA(I,D): 2.3 cm2 Ao V2 VTI: 39.0 cm YULIA(V,D): 2.4 cm2 sev ratio: 0.72 YULIA indexed to BSA (cm^2/m^2): 1.1 MV E max wes: 130.0 cm/sec PA V2 max: 105.7 cm/sec MV A max wes: 112.4 cm/sec PA V2 mean: 77.9 cm/sec MV E/A: 1.2 PA mean P.7 mmHg Med Peak E' Wes: 5.5 cm/sec PA pr(Accel): 27.6 mmHg E/E' med: 23.8 Lat Peak E' Wes: 6.2 cm/sec E/E' lat: 21.0 E/e' average: 22.4 MV dec time: 0.33 sec MVA(VTI): 1.8 cm2 MV V2 mean: 85.9 cm/sec SV(LVOT): 88.3 ml MV mean P.6 mmHg MV V2 VTI: 50.4 cm Reading Physician:08:59 AM
[2022-04-25] MEDS: ONDANSETRON 4 MG/2 ML INJ IV (23:24)
[2022-04-25] MEDS: ATORVASTATIN 20 MG TABLET 40 MG PO (23:24)
[2022-04-25] MEDS: ACETAMINOPHEN 325 MG TABLET 650 MG PO (23:24)
[2022-04-26] VITALS (7 sets, daily range): BP systolic 116–155; BP diastolic 40–56; PULSE 62–89; RESP 14–19; TEMP 36–36.6; O2SAT 95–99; BMI 37.8
--- NOTE | 2022-04-26 01:59 | PC.NURSE ---
2400: admit from ER : patient arrived to floor via stretcher, assisted to bed w/ 2pa. patient is a/o, voices needs. accompanied by her daughter Beronica. patient uses FWW and can walk short distances. lately has c/o cough/chest congestion. uses own CPAP which is on now. patient had several syncopal episodes prior to arriving to ED. denies dizziness at this time. i am just very tired. it's been a long day. telemetry applied: NSR @ 62. oriented patient to bed controls, call light. daughter staying overnight in room. bed made up for her. ice water provided to both ladies. call light w/in reach.
[2022-04-26 02:38] LABS: Lactate (Lactic Acid) 1.8 mmol/L (0.7-2.1)
[2022-04-26 07:04] LABS: Add Manual Diff / Slide Review NO; Basophils Absolute Auto 0 /uL (0-100); Basophils Percent Auto 0.3 % (0-2); Eosinophils Absolute Auto 200 /uL (0-450); Eosinophils Percent Auto 2.4 % (2-4); Hematocrit 36.3 % (36-46); Lymphocytes Absolute Auto 2600 /uL (1100-4500); Lymphocytes Percent Auto 37.9 % (25-40); Mean Corpuscular HGB Conc 33.1 % (30-36); Mean Corpuscular Hemoglobin 27.1 PG (26-34); Mean Corpuscular Volume 81.8 fL (80-100); Monocytes Absolute Auto 700 /uL (0-900); Monocytes Percent Auto 9.7 % (3-14); Neutrophils Absolute Auto 3400 /uL (1500-7000); Neutrophils Percent Auto 49.7 % (50-75); Platelet Count 203 X10^3/uL (150-400); Red Blood Cell Count 4.44 X10^6/uL (4.0-5.2); Red Cell Distribution Width 18.1 % (11.6-14.8); White Blood Cell Count 6.8 X10^3/uL (4.5-11.0)
[2022-04-26 07:11] LABS: D Dimer 2559 ng/ml (<500)
--- NOTE | 2022-04-26 07:17 | DI.CT.S_ITS ---
PROCEDURE: CT ANGIO CHEST PE PROTOCOL INDICATIONS: rule out PE TECHNIQUE: After the administration of intravenous contrast, 2 mm thick sections acquired from the pulmonary apices to the posterior costophrenic angles. 3-dimensional maximum intensity projection (MIP) coronal and sagittal reformats were then acquired through the thorax. For radiation dose reduction, the following was used: automated exposure control, adjustment of mA and/or kV according to patient size. COMPARISON: [facility], CT, CT ANGIO CHEST PE PROTOCOL, 12/18/2021, 18:16. FINDINGS: Image quality: Excellent. Pulmonary arteries: Pulmonary arteries are normal in size, and demonstrate no intraluminal filling defects to suggest central pulmonary embolism. Lungs and pleura: Lungs are clear. No pleural effusions or pneumothorax. Suspect trace pleural plaques at the upper thorax bilaterally, (4/26). Central airways are clear. Bronchial wall thickening is suspected and appears similar. Mild subpleural reticular thickening is similar. Mediastinum: Heart size is prominent, without pericardial effusion. Three-vessel coronary artery calcifications. No mediastinal or hilar adenopathy. Thoracic aorta is normal in caliber and enhancement. No dissection. Moderate calcified plaque. Esophagus is normal in caliber, small hiatal hernia. Bones and chest wall: No suspicious bony lesions. T7, T10 compression fractures are unchanged. Tiny left thyroid nodule. No axillary or supraclavicular adenopathy. Thickening at or asymmetry at the right upper breast, (4/45) is similar dating back to 2019. Abdomen: Visualized upper abdominal solid organs appear normal in the early arterial phase of enhancement. IMPRESSION: 1. No pulmonary embolism. 2. Mild chronic bronchial wall thickening. This could be seen in the setting of bronchitis. Subpleural reticular thickening appears similar. This could be seen in the setting of interstitial lung disease and/or atelectasis. No consolidation. 3. No pleural effusion. Dictated by: Ehsan Banegas M.D. on 04/26/2022 at 10:37 Approved by: Ehsan Banegas M.D. on 04/26/2022 at 10:52
--- NOTE | 2022-04-26 07:44 | PM.PN.1 ---
Subjective Subjective Interval history: Patient denies any chest pain. Still having myalgias and fatigue. Awaiting stress test tomorrow. Exam Vital Signs (past 8 hours): - 04/26/22 00:09 04/26/22 00:53 04/26/22 06:28 Temperature 96.8 F L 97.3 F L Pulse Rate 62 64 Respiratory Rate 19 17 Blood Pressure 133/41 L 134/49 L Pulse Oximetry 98 98 Oxygen Delivery Method CPAP Oxygen Flow Rate 3 Oxygen Delivery Method CPAP Oxygen Flow Rate 3 Narrative Exam Narrative: GEN: no acute distress, pleasant female HEENT: moist mucous membranes, PERRL NECK: trachea midline, no JVD CV: regular rate and rhythm, no murmurs PULM: clear bilaterally ABD: soft, nontender, nondistended, no organomegaly EXT: warm and well perfused with no edema NEURO: awake, alert, oriented, no focal deficits Objective Labs Result Diagrams: 04/26/22 06:15 04/26/22 06:15 Labs: Laboratory Results - last 24 hr 04/25/22 04/25/22 04/25/22 18:00 18:00 18:00 WBC 9.0 RBC 4.88 Hgb 13.2 Hct 40.1 MCV 82.2 MCH 27.0 MCHC 32.9 RDW 17.9 H Plt Count 263 Neut % (Auto) 62.9 Lymph % (Auto) 26.7 [place] % (Auto) 8.0 Eos % (Auto) 1.6 L Baso % (Auto) 0.8 Neut # (Auto) 5600 Lymph # (Auto) 2400 [place] # (Auto) 700 Eos # (Auto) 100 Baso # (Auto) 100 PT 13.0 H INR 1.1 D-Dimer Sodium 139 Potassium 3.6 Chloride 99 Carbon Dioxide 30 BUN 23 H Creatinine 1.58 H Estimated GFR 32 L BUN/Creatinine Ratio 14.6 Glucose 143 H Lactate Calcium 9.3 Total Bilirubin 0.4 AST 20 ALT 11 Alkaline Phosphatase 65 Troponin I 0.024 NT-Pro-B Natriuret Pep 630 H Total Protein 7.6 Albumin 4.2 Globulin 3.4 Albumin/Globulin Ratio 1.2 Chlamy pneumoniae PCR Adenovirus (PCR) B. pertussis DNA (PCR) B.parapertussis DNA PCR Coronavirus OC43 (PCR) Coronavirus HKU1 (PCR) Coronavirus 229E (PCR) SARS-CoV-2 (PCR) Coronavirus NL63 (PCR) Human Metapneumovir PCR Influenza Type A (PCR) Influenza Type B (PCR) M. pneumoniae (PCR) Parainfluenza 1 (PCR) Parainfluenza 2 (PCR) Parainfluenza 3 (PCR) Parainfluenza 4 (PCR) RSV (PCR) Entero/Rhino (PCR) 04/25/22 04/25/22 04/26/22 18:00 19:45 02:06 WBC RBC Hgb Hct MCV MCH MCHC RDW Plt Count Neut % (Auto) Lymph % (Auto) [place] % (Auto) Eos % (Auto) Baso % (Auto) Neut # (Auto) Lymph # (Auto) [place] # (Auto) Eos # (Auto) Baso # (Auto) PT INR D-Dimer Sodium Potassium Chloride Carbon Dioxide BUN Creatinine Estimated GFR BUN/Creatinine Ratio Glucose Lactate 2.5 H 1.8 Calcium Total Bilirubin AST ALT Alkaline Phosphatase Troponin I NT-Pro-B Natriuret Pep Total Protein Albumin Globulin Albumin/Globulin Ratio Chlamy pneumoniae PCR Not detected Adenovirus (PCR) Not detected B. pertussis DNA (PCR) Not detected B.parapertussis DNA PCR Not detected Coronavirus OC43 (PCR) Not detected Coronavirus HKU1 (PCR) Not detected Coronavirus 229E (PCR) Not detected SARS-CoV-2 (PCR) Not detected Coronavirus NL63 (PCR) Not detected Human Metapneumovir PCR Not detected Influenza Type A (PCR) Not detected Influenza Type B (PCR) Not detected M. pneumoniae (PCR) Not detected Parainfluenza 1 (PCR) Not detected Parainfluenza 2 (PCR) Not detected Parainfluenza 3 (PCR) Not detected Parainfluenza 4 (PCR) Not detected RSV (PCR) Not detected Entero/Rhino (PCR) Not detected 04/26/22 04/26/22 06:15 06:15 WBC 6.8 RBC 4.44 Hgb 12.0 Hct 36.3 MCV 81.8 MCH 27.1 MCHC 33.1 RDW 18.1 H Plt Count 203 Neut % (Auto) 49.7 L Lymph % (Auto) 37.9 [place] % (Auto) 9.7 Eos % (Auto) 2.4 Baso % (Auto) 0.3 Neut # (Auto) 3400 Lymph # (Auto) 2600 [place] # (Auto) 700 Eos # (Auto) 200 Baso # (Auto) 0 PT INR D-Dimer 2559 H Sodium Potassium Chloride Carbon Dioxide BUN Creatinine Estimated GFR BUN/Creatinine Ratio Glucose Lactate Calcium Total Bilirubin AST ALT Alkaline Phosphatase Troponin I NT-Pro-B Natriuret Pep Total Protein Albumin Globulin Albumin/Globulin Ratio Chlamy pneumoniae PCR Adenovirus (PCR) B. pertussis DNA (PCR) B.parapertussis DNA PCR Coronavirus OC43 (PCR) Coronavirus HKU1 (PCR) Coronavirus 229E (PCR) SARS-CoV-2 (PCR) Coronavirus NL63 (PCR) Human Metapneumovir PCR Influenza Type A (PCR) Influenza Type B (PCR) M. pneumoniae (PCR) Parainfluenza 1 (PCR) Parainfluenza 2 (PCR) Parainfluenza 3 (PCR) Parainfluenza 4 (PCR) RSV (PCR) Entero/Rhino (PCR) PFSH Medical History Cardiac arrest Chest pain Coronary artery disease Diastolic heart failure Hyperlipidemia Hypertension Left hamstring muscle strain NSTEMI (non-ST elevated myocardial infarction) Skin cancer UTI (urinary tract infection) Surgical History H/O right heart catheterization History of appendectomy History of breast implant removal History of breast surgery History of cholecystectomy History of coronary artery stent placement History of total abdominal hysterectomy Family History Father Hypertension Diabetes mellitus Mother Hypertension MA (myocardial infarction) Sister MA (myocardial infarction) S/P CABG x 4 Social History household members: children Smoking Status: Never smoker Assessment & Plan Assessment & Plan narrative: 1. Chest pain and shortness of breath due presumed viral illness with myalgias and fatigue -EKG with no acute ischemia, resp PCR negative -trop neg x2 -continue aspirin, statin, ranolazine -her cardiology group recommends echo, stress test -echo 04/26 with EF 65-70%, mildly concentric LV consistent with diastolic CHF -lexiscan stress test ordered for 04/27 2. Dizziness and presyncope -sounds like possible hypovolemia and orthostatic hypotension -might be secondary to lasix and diuresis in setting of viral URI -hold lasix -orthostatics negative -hold metoprolol for now 3. FRANCESCA on CKD stage 2, improving -suspect secondary to hypovolemia from diuresis -hold lasix -hold on fluid bolus for now given CHF history 4. HFpEF of 65-70% -hold lasix for now -echo as above 5. Myalgias -CK negative -respiratory panel pcr negative -consider statin as culprit if doesn't improve with time 6. Depression -continue ssri CODE: Full Proxy: Beronica Lam, daughter I have utilized all available resources to reconcile the patient's home medications Dispo: Home on 04/27 if stress test negative. Time Spent With Patient Critical Care time: I spent a total of [] minutes of critical care time on this patient's care today; this time is exclusive of procedural time. Quality VTE Deep Vein Thrombosis/Pulmonary Embolism Present on Admission: No
[2022-04-26] MEDS: ENOXAPARIN 40 MG/0.4 ML SYRINGE SUBCUT (08:33)
[2022-04-26] MEDS: ACETAMINOPHEN 325 MG TABLET 650 MG PO (08:33)
[2022-04-26] MEDS: ASPIRIN EC 81 MG TABLET PO (08:33)
[2022-04-26] MEDS: methylPREDNISolone 125 MG/2 ML VIAL IV (08:33)
[2022-04-26] MEDS: diphenhydrAMINE 50 MG/ML VIAL 25 MG IV (08:33)
[2022-04-26] MEDS: ESCITALOPRAM 10 MG TABLET 20 MG PO (08:33)
[2022-04-26 08:37] LABS: Blood Urea Nitrogen 23 mg/dL (7-17); Calcium 8.9 mg/dL (8.4-10.2); Carbon Dioxide 29 mmol/L (22-32); Chloride 102 mmol/L (98-107); Estimated Glomerular Filt Rate 36 mL/min (>60); Glucose 116 mg/dL (80-110); HEMOLYSIS < 15 (0-50); Potassium 3.6 mmol/L (3.4-5.1); Sodium 138 mmol/L (137-145)
[2022-04-26 08:42] LABS: Creatine Kinase 44 U/L (30-135)
[2022-04-26] MEDS: RANOLAZINE 500 MG TAB.ER.12H PO ×2 (08:44→20:40)
[2022-04-26 08:48] LABS: Troponin I 0.023 ng/mL (0.01-0.034)
--- NOTE | 2022-04-26 09:23 | CM.DANOTE ---
Addendum entered by Tanya Mccarthy R.N. 04/26/22 15:22: Gave patient an [facility] brochure, faxed face sheet, face to face, orders, and H&P to [facility], and updated Jeannette about referral, and that she has not yet discharged. She is familiar with patient, had her in 2020. They will just need DC Summary and update upon discharge. Addendum entered by Tanya Mccarthy R.N. 04/26/22 14:53: Patient had mentioned interest in possible home health. Met with patient in her room, daughter still in the room. Brought in Medicare Choice List. Patient indicated, she has used [facility] before, would be interested in having them for service. Agreed with nursing, P.T, and O.T. Patient does not feel that she needs a bath aide at this time. Will complete face to face and orders, and will fax to [facility]. Will then follow up with a phone call. Original Note: DCP: Case received, EMR reviewed and met with patient. Daughter, Beronica, was at bedside. Introduced self and role. Was able to obtain information regarding patient's baseline activity level prior to hospitalization, as well as her current living situation. DCP assessment completed with information currently available. Patient is an 86 year old female who admitted yesterday evening to the care of the hospitalist team. PCP: Confirmed: Dr. Zoe Bass. Payer: confirmed: Medicare/[employer]. Patient came to the hospital via private vehicle, after originally going to the walk in clinic in [place], due to having complaints of substernal chest discomfort and dizziness. Patient had mentioned, passing out after picking up something off of the floor. Patient has history of some cardiac issues, and had recently had COVID. She has had some syncopal episodes at home. Patient is here for cardiac work up, including a stress test and echo. Met with patient in her room, with daughter at bedside. Patient is pleasant, alert and oriented and sitting up in bed. Confirmed that patient resides with her son, Yuri, in [place]. Her daughter, Beronica, lives near her. Patient does not drive at baseline, she uses a four wheel walker, and is on home oxygen through [place], which she uses continuously between 2.5-3 liters. She indicated that she has had some episodes of passing out at home, but my daughter comes over and helps me up, if I am on the floor. Patient stated that she was here in February for COVID, and ended up on home oxygen. P: DCP to continue to follow. Patient is downstairs having her test now. She should be able to go home when deemed medically stable. Tanya Mccarthy RN/Shoe Handler Discharge Planning/Care Management Advanced directive, confirm from FAMILY Start: 04/26/22 00:52 Freq: Q24H Status: Active Protocol: Document 04/26/22 00:52 BV (Rec: 04/26/22 01:58 BV [id number]) Advance Directive, confirm on record Time 00:30 Person contacted patient Copy received No Advanced directive available on record No CM Discharge Assessment Start: 04/26/22 09:21 Freq: Status: Active Protocol: Document 04/26/22 09:21 (Rec: 04/26/22 09:23 [id number]) Discharge Planning Assessment Assigned Life Skills Teacher Tanya Mccarthy RN/Shoe Handler Advance Directives? Yes Advance Directives on File Yes History Provided By Patient,Medical Record Prior Living Arrangements House Household Members children Type of transporation used prior to Relies on Others admit Independent with ADL's Yes Needs Assistance With Meal Prep,Home Chores / Shopping Caregiver for Another No Community Services used prior to Oxygen Therapy admission: Comment Patient has home oxygen through [employer]. DME Already Rented / Owned FWW / Walker Comment Patient uses four wheel walker . Patient/Family Preference Home with Home Health Barriers to Discharge No Comment Patient lives with family, good support system. Discharge Plan Home Transportation Arrangement Family local and able to transport at d/c. Referrals Initiated None needed Whiteboard Updated in Patient Room with Yes name and ext. # of Life Skills Teacher Review Status In Process Next Review Type Continued Stay Review
[2022-04-26] MEDS: OXYCODONE IR 5 MG TABLET PO ×2 (12:45→19:25)
[2022-04-26] MEDS: polyethylene glycoL 3350 17 GM POWD.PACK PO (14:35)
[2022-04-26] MEDS: ATORVASTATIN 20 MG TABLET 40 MG PO (20:40)
[2022-04-26] MEDS: SODIUM CHLORIDE 0.9% FLUSH 10 ML IV (20:40)
[2022-04-27] MEDS: OXYCODONE IR 5 MG TABLET PO ×3 (00:32→12:46)
--- NOTE | 2022-04-27 01:13 | PC.NURSE ---
Patient is alert and oriented. Breath sounds CTA with sat of 95% currently on oxygen at 3L/min per NC (uses 2-3L/min at home); uses CPAP at night. Denies SOB at rest but reports SOB w/activity and conversation but is able to speak in complete sentences. Reports dry cough which has been productive of scant amounts yellow/green sputum. HRR w/telemetry reading of SR. Denies nausea. BT present and is passing flatus. Denies dysuria, frequency or urgency with urination but does dribble urine so is wearing a pad. Is able to turn herself in bed. Up to BSC with walker and SBA. Complains of generalized joint/muscle/lung discomfort and was medicated with oxycodone with relief provided. Fall risk score is high and bed alarm is activated.
[2022-04-27 03:30] VITALS: BP 163/58; PULSE 82; RESP 16; TEMP 36.2; O2SAT 96
[2022-04-27 07:00] VITALS: BP 134/53; PULSE 81; RESP 18; TEMP 36.3; O2SAT 97
--- NOTE | 2022-04-27 08:10 | P.DS_ITS ---
History of Present Illness History of Present Illness Date Patient Seen: 04/27/22 Time Patient Seen: 21:00 Chief complaint: dizzy, leg pain, sent by [facility] Narrative: Ms. Townsend is an 86W with PMH CAD, CHFpEF, HTN, HL, pulmonary fibrosis, remote history of cardiac arrest secondary to med reaction who presents to the hospital with chest pain and shortness of breath. She started having substernal chest discomfort starting a couple days ago. She also had dizziness and nausea. Apparently within the last week she has felt syncopal at least three times. They occurred when going to the bathroom and with positional changes. She also notes myalgias and chills. She notes sinus pressure. In the ED workup was done, vitals notable for tachypnea, O2 sats in the high 90s on room air. Labs notable for WBC 9.0, hgb 13.2, plts 263. Creatinine 1.58. Trop 0.024, BNP 630. Lactate 2.5. Chest xray with no acute process. CT head with no acute process. She was ordered for aspirin. EKG showed no acute ischemia. ED doc did call her cardiology group and account resolution expert computer systems engineer recommended stress test and ECHO. Respiratory panel negative. She was admitted for further evaluation. Discharge Providers Provider Date of admission: 04/25/22 20:10 Discharge Date: 04/27/22 Primary care physician: Zoe Bass PA-C Consults: 04/26/22 15:06 Consult to Home Health Routine Comment: Reason For Exam: Home Health RN, P.T, O.T. Discharge provider: David Felton DO Summary Hospital Course Discharge Diagnosis: 1. Chest pain and shortness of breath due presumed viral illness with myalgias and fatigue in setting of chronic resp failure since COVID -EKG with no acute ischemia, resp PCR negative. Had COVID one month ago and has been on 2L home O2 since then. -CTPA with no PE but evidence of bronchitis -trop neg x2 -continue aspirin, statin, ranolazine -her cardiology group recommends echo, stress test -echo 04/26 with EF 65-70%, mildly concentric LV consistent with diastolic CHF -lexiscan stress test came back reassuring with no evidence of ischemia 2. Dizziness and presyncope -sounds like possible hypovolemia and orthostatic hypotension -might be secondary to lasix and diuresis in setting of viral URI -held lasix, changed to every other day on discharge -orthostatics negative 3. FRANCESCA on CKD stage 2, improving -suspect secondary to hypovolemia from diuresis -hold lasix 4. HFpEF of 65-70% -hold lasix for now -echo as above 5. Myalgias -CK negative -respiratory panel pcr negative -consider statin as culprit if doesn't improve with time 6. Depression -continue ssri Hospital Course: Admitted for chest pain, dizziness with syncope and shortness to breath. Underwent nuclear medicine stress test which was reassuring with no evidence of ischemia. Echo showed EF 65-70%, mildly concentric LV and no focal wall motion abnormalities. And presyncope felt to be likely hypovolemia so her home Lasix was held and she was given gentle fluids. Her orthostatics were negative. She was discharged in her Lasix was changed to every other day to prevent further presyncope due to hypovolemia. She will follow-up with her computer systems engineer in clinic. Time Spent with Patient Time spent: Greater than 30 minutes Exam Vital Signs (past 8 hours): - 04/27/22 03:30 Temperature 97.1 F L Pulse Rate 82 Respiratory Rate 16 Blood Pressure 163/58 H Pulse Oximetry 96 Oxygen Flow Rate 3 Fraction of Inspired Oxygen 98 Oxygen Delivery Method Nasal Cannula Oxygen Flow Rate 3 Narrative Exam Narrative: GEN: no acute distress, pleasant female HEENT: moist mucous membranes, PERRL NECK: trachea midline, no JVD CV: regular rate and rhythm, no murmurs PULM: clear bilaterally ABD: soft, nontender, nondistended, no organomegaly EXT: warm and well perfused with no edema NEURO: awake, alert, oriented, no focal deficits Objective Labs Result Diagrams: 04/26/22 06:15 04/27/22 09:14 Labs: Laboratory Results - last 24 hr 04/26/22 04/26/22 05:00 06:15 Sodium 138 Potassium 3.6 Chloride 102 Carbon Dioxide 29 BUN 23 H Creatinine 1.44 H Estimated GFR 36 L BUN/Creatinine Ratio 16.0 Glucose 116 H Calcium 8.9 Total Creatine Kinase 44 Troponin I 0.023 [facility] Medical History Cardiac arrest Chest pain Coronary artery disease Diastolic heart failure Hyperlipidemia Hypertension Left hamstring muscle strain NSTEMI (non-ST elevated myocardial infarction) Skin cancer UTI (urinary tract infection) Surgical History H/O right heart catheterization History of appendectomy History of breast implant removal History of breast surgery History of cholecystectomy History of coronary artery stent placement History of total abdominal hysterectomy Family History Father Hypertension Diabetes mellitus Mother Hypertension [place] (myocardial infarction) Sister [place] (myocardial infarction) S/P CABG x 4 Social History household members: children Smoking Status: Never smoker Discharge Plan Discharge Plan Patient Disposition: Home Provider Discharge Comment: You were admitted for chest pain and had a negative stress test and normal echo. I think you were also dehydrated which was making you dizzy so I've changed your lasix to every other day. Discharge orders & Medications Prescriptions: Continued aspirin 81 MG tablet,delayed release (DR/EC) 81 mg PO DAILY Qty: 0 ranolazine 500 mg tablet extended release 12 hr 500 mg PO BID pantoprazole 40 mg Tablet,Delayed Release (Dr/Ec) 40 mg PO DAILY escitalopram oxalate 20 mg Tablet 20 mg PO DAILY alprazolam 0.5 mg tablet 0.5 mg PO Q6HR metoprolol tartrate 50 mg Tablet 50 mg PO TID Qty: 60 0RF oxycodone-acetaminophen 5-325 mg tablet 1 tab PO Q6H PRN (Reason: pain) Qty: 20 0RF nitroglycerin 0.4 mg tablet, sublingual 1 tab sublingual [id number] PRN (Reason: Chest Pain) Label Comments: take it when needed, last dose unknown rosuvastatin 40 mg tablet 40 mg PO QPM prednisone 5 mg tablet 5 mg PO DAILY Qty: 20 0RF oxycodone-acetaminophen 5-325 mg tablet 1 tab PO Q6H PRN (Reason: pain) Qty: 14 0RF prednisone 5 mg tablet 5 mg PO DAILY Qty: 20 0RF prednisone 5 mg tablet 5 mg PO DAILY Qty: 20 0RF Changed furosemide 40 mg tablet 40 mg PO Q OTHER DAY Qty: 30 0RF Discontinued oxycodone-acetaminophen 5-325 mg tablet 1 tab PO Q6H PRN (Reason: pain) Qty: 14 0RF Follow up/Referrals: Zoe Bass PA-C [Primary Care Provider] - Visit Report/Discharge Packet Instructions: DI for Syncope in Adults (Fainting), DI for Heart Failure, DI for Chest Pain Discharge Data Primary Care Provider: Zoe Bass Attending Provider: Edgar Simmons VTE Deep Vein Thrombosis/Pulmonary Embolism Present on Admission: No
[2022-04-27 09:46] LABS: BUN Creatinine Ratio 17.9 (6-22); Blood Urea Nitrogen 21 mg/dL (7-17); Carbon Dioxide 27 mmol/L (22-32); Chloride 97 mmol/L (98-107); Estimated Glomerular Filt Rate 46 mL/min (>60); Glucose 181 mg/dL (80-110); HEMOLYSIS < 15 (0-50); Potassium 4.3 mmol/L (3.4-5.1); Sodium 133 mmol/L (137-145)
[2022-04-27] MEDS: ASPIRIN EC 81 MG TABLET PO (10:03)
[2022-04-27] MEDS: ENOXAPARIN 40 MG/0.4 ML SYRINGE SUBCUT (10:03)
[2022-04-27] MEDS: ESCITALOPRAM 10 MG TABLET 20 MG PO (10:03)
[2022-04-27] MEDS: SODIUM CHLORIDE 0.9% FLUSH 10 ML IV (10:03)
[2022-04-27 14:15] VITALS: BP 136/60; BP 140/55; BP 145/56; PULSE 84; PULSE 86; PULSE 94
--- NOTE | 2022-04-28 08:42 | DI.NM.S_ITS ---
DATE OF SERVICE: PROCEDURE: Pharmacological perfusion study. INDICATION: Chest pain with underlying hypertension, hyperlipidemia, shortness of breath, and heart failure with reduced ejection fraction. RADIOPHARMACEUTICAL: 26.3 mCi technetium-99m Myoview IV was injected at stress and 9.4 mCi technetium-99m Myoview IV was injected at rest. CARDIAC STRESS: The patient underwent IV Lexiscan perfusion study under the supervision of an attending staff using standard protocol. She remained hemodynamically stable. Resting blood pressure 130/78. Baseline rhythm sinus. During stress, no new convincing ischemic changes seen. Occasional PVCs. Minimal dyspnea. No chest discomfort. RAW DATA: There was breast shadow seen. GATED STUDY: Stress LV ejection fraction 94 percent without any obvious wall motion abnormalities. Stress end-diastolic volume 82 mL. TID ratio 0.97, which is within normal limits. Lung/heart ratio 0.26 which is within normal limits. MYOCARDIAL PERFUSION SCAN: Stress supine and resting supine images were compared to each other. The patient has normal myocardial perfusion. CONCLUSION: This is a normal myocardial perfusion study without any obvious ischemia or infarction. Preserved left ventricular function. Overall low-risk myocardial perfusion study. Kristian Lida - SAMAN/sherri/AYANNA doc#: [id number]/job#: [id number] dd: 04/27/2022 12:44:00 dt: 04/27/2022 18:07:00 DICTATING /COPIES TO: Cristian Nick MD COPIES MNE: SHERWIN;
== END 2022-04-27 15:28 | disposition home or self-care (01) ==
LOC: ED 20:01 → AC 20:10
PROVIDERS: Emergency Medicine; Student in an Organized Health Care Education/Training Program; Admitting Provider Internal Medicine; Emergency Provider Emergency Medicine; Family Provider Internal Medicine; PCP Physician Assistant Medical; Visit Provider Internal Medicine
DX: R07.9 Chest pain, unspecified (principal); R42 Dizziness and giddiness; R53.83 Other fatigue; R06.02 Shortness of breath; I13.0 Hypertensive heart and chronic kidney disease with heart failure and stage 1 through stage 4 chronic kidney disease, or unspecified chronic kidney disease; N18.2 Chronic kidney disease, stage 2 (mild); I50.9 Heart failure, unspecified; N17.9 Acute kidney failure, unspecified; E86.0 Dehydration; M79.10 Myalgia, unspecified site; F32.A Depression, unspecified; Z86.74 Personal history of sudden cardiac arrest; I25.2 Old myocardial infarction; Z20.822 Contact with and (suspected) exposure to COVID-19
CPT/HCPCS: 36415; 70450; 71045; 71275; 78452; 80048; 80053; 82550; 83605; 83880; 84484; 85025; 85379; 85610; 87633; 93005; 93010; 93017; 93306; 96372; 96374; 96375; 99283; 99284; G0378; A9502; J1200; J1650; J2405; J2785; J2930; Q9967

== ENCOUNTER → 2022-06-08 15:21 | Outpatient (CLI) | payer MEDICARE, OTHER, SELFPAY ==
[2022-04-26 00:48] VITALS: BMI 37.8
--- NOTE | 2022-06-08 15:25 | DI.US.S_ITS ---
PROCEDURE: US PERIP VENOUS UP EXTREM RT INDICATIONS: RULE OUT DVT TECHNIQUE: Real-time imaging, as well as color and pulse Doppler interrogation, was performed of the right upper extremity deep veins from the inferior neck to the antecubital fossa. COMPARISON: [facility], , [facility] VENOUS UP EXTREM RT, 06/01/2019, 19:10. FINDINGS: The internal jugular vein, visualized portions of the subclavian vein, axillary, and brachial veins are free of intraluminal thrombus. Where physically possible, the veins are normally compressible. Color and pulse Doppler demonstrate normal intraluminal flow, with expected phasicity and pulsatility. Additional scanning of the cephalic and basilic veins of the superficial system demonstrate normal compressibility, without thrombus. IMPRESSION: No right upper extremity venous thrombosis identified. Dictated by: Chase Rees [facility] Interpreted: Yoandy Lan MD on 06/08/2022 at 16:17 Transcribed by: FREDDIE on 06/08/2022 at 16:18 Approved by: Yoandy Lan M.D. on 06/09/2022 at 8:47
== END ==
PROVIDERS: Family Provider Internal Medicine; PCP Physician Assistant Medical; Referring Provider Physician Assistant Medical; Visit Provider Physician Assistant Medical
DX: R60.0 Localized edema (principal)
CPT/HCPCS: 93971

== ENCOUNTER 2022-06-14 16:25 | Emergency (ER) | payer MEDICARE, OTHER, SELFPAY ==
[2022-04-26 00:48] VITALS: BMI 37.8
[2022-06-14 16:39] VITALS: BP 191/74; PULSE 65; RESP 22; TEMP 36.1; O2SAT 99; BMI 40.7
--- NOTE | 2022-06-14 16:46 | DI.RAD.S_ITS ---
PROCEDURE: XR CHEST 1V INDICATIONS: Shortness of breath TECHNIQUE: One view of the chest was acquired. COMPARISON: [facility], , XR CHEST 1V, 04/25/2022, 16:01. FINDINGS: Surgical changes and devices: None. Lungs and pleura: On this semiupright portable chest examination, no large pneumothorax or large pleural effusions are seen. No focal infiltrates are seen. Mediastinum: Mediastinal contours appear normal. Heart size is normal. Bones and chest wall: No suspicious bony lesions. Age-appropriate bony degenerative changes are seen. Overlying soft tissues appear unremarkable. IMPRESSION: Portable chest within normal limits. Dictated by: Venkat Tucker M.D. on 06/14/2022 at 16:20 Approved by: Venkat Tucker M.D. on 06/14/2022 at 16:20
[2022-06-14 18:09] LABS: Add Manual Diff / Slide Review NO; Basophils Absolute Auto 100 /uL (0-100); Basophils Percent Auto 0.8 % (0-2); Eosinophils Absolute Auto 200 /uL (0-450); Eosinophils Percent Auto 2.6 % (2-4); Hematocrit 37.4 % (36-46); Hemoglobin 12.3 g/dL (12.0-16.0); Lymphocytes Absolute Auto 2000 /uL (1100-4500); Lymphocytes Percent Auto 29.6 % (25-40); Mean Corpuscular HGB Conc 32.8 % (30-36); Mean Corpuscular Hemoglobin 26.7 PG (26-34); Mean Corpuscular Volume 81.3 fL (80-100); Monocytes Absolute Auto 700 /uL (0-900); Neutrophils Absolute Auto 3900 /uL (1500-7000); Platelet Count 230 X10^3/uL (150-400); Red Cell Distribution Width 18.2 % (11.6-14.8); White Blood Cell Count 6.8 X10^3/uL (4.5-11.0)
[2022-06-14 18:16] LABS: INR 1.1 (0.9-1.3); Prothrombin Time 12.4 SECONDS (10.1-12.7)
--- NOTE | 2022-06-14 18:24 | ED.SOB ---
HPI - SOB/Dyspnea General Chief Complaint: Shortness of Breath/Dyspnea Stated Complaint: sob, swelling and cough Time Seen by Provider: 06/14/22 18:07 Source: patient and family Mode of arrival: Ambulatory History of Present Illness HPI Narrative: 86F nonsmoker with extensive history of cardiac disease including hypertension, hyperlipidemia, coronary artery disease, CHF presents with generalized fatigue, weakness, and shortness of breath. She states that on the whole she is had a general decline since having COVID in 2020. She frequently has cough, but states it is not any worse than normal. She denies any headache or blurred vision. She has no runny nose or sore throat. She denies any chest pain. She denies nausea, vomiting or diarrhea. She had been taking her Lasix every other day for some time, but about a week ago she had resumed taking it every day. She has had some swelling of her bilateral lower extremities for some time. Related Data Home Medications Medication Instructions Recorded Confirmed aspirin 81 mg tablet,delayed 81 mg PO DAILY ##0 05/14/17 03/06/21 release nitroglycerin 0.4 mg sublingual 1 tab sublingual [id number] PRN Chest 11/18/18 03/06/21 tablet Pain rosuvastatin 40 mg tablet 40 mg PO QPM 11/18/18 03/06/21 ranolazine 500 mg tablet,extended 500 mg PO BID 02/09/20 03/06/21 release,12 hr escitalopram oxalate 20 mg tablet 20 mg PO DAILY 03/06/21 03/06/21 pantoprazole 40 mg tablet,delayed 40 mg PO DAILY 03/06/21 03/06/21 release alprazolam 0.5 mg tablet 0.5 mg PO Q6HR anxiety 03/10/21 03/10/21 Previous Rx's Medication Instructions Recorded metoprolol tartrate 50 mg tablet 50 mg PO TID #60 tabs 03/11/21 oxycodone-acetaminophen 5 mg-325 1 tab PO Q6H PRN pain #14 tabs 06/14/21 mg tablet prednisone 5 mg tablet 5 mg PO DAILY #20 tabs 06/14/21 prednisone 5 mg tablet 5 mg PO DAILY #20 tabs 06/14/21 prednisone 5 mg tablet 5 mg PO DAILY #20 tabs 06/14/21 furosemide 40 mg tablet 40 mg PO Q OTHER DAY #30 tabs 04/27/22 oxycodone-acetaminophen 5 mg-325 1 tab PO Q6H PRN pain #20 tabs 04/27/22 mg tablet Allergies Allergy/AdvReac Type Severity Reaction Status Date / Time ibuprofen [IBUPROFEN] Allergy Severe Rash Verified 06/14/22 16:37 Iodinated Contrast Media Allergy Severe Unconscious Verified 06/14/22 16:37 [IODINATED CONTRAST- ORAL AND IV DYE] morphine [MORPHINE] Allergy Severe Rash Verified 06/14/22 16:37 naproxen [From ALEVE] Allergy Severe Rash Verified 06/14/22 16:37 telmisartan [TELMISARTAN] Allergy Severe Rash Verified 06/14/22 16:37 Review of Systems Review of Systems Narrative: GENERAL: Denies chills, fatigue, malaise, fever, sweats. HEENT: Denies sinus pain, ear pain, sore throat, difficulty swallowing, dizziness. RESPIRATORY: See HPI CARDIOVASCULAR: See HPI GASTROINTESTINAL: Denies nausea, vomiting, abdominal pain, diarrhea, constipation, melena. : Denies dysuria, frequency, incontinence, hematuria, urinary retention. MUSCULOSKELETAL: denies weakness, joint pain, or bony pain SKIN: Denies rash, skin lesions, or other NEUROLOGIC: Denies weakness, headache, numbness, change in speech, confusion, seizures, incoordination. PSYCHIATRIC: No concerning psychosocial issues. 12 point review of systems is negative except for those stated above Patient History Medical History Cardiac arrest Chest pain Coronary artery disease Diastolic heart failure Hyperlipidemia Hypertension Left hamstring muscle strain NSTEMI (non-ST elevated myocardial infarction) Skin cancer UTI (urinary tract infection) Surgical History H/O right heart catheterization History of appendectomy History of breast implant removal History of breast surgery History of cholecystectomy History of coronary artery stent placement History of total abdominal hysterectomy Family History Father Hypertension Diabetes mellitus Mother Hypertension MD (myocardial infarction) Sister MD (myocardial infarction) S/P CABG x 4 Social History household members: children Smoking Status: Never smoker Smoking Status: Never smoker alcohol intake frequency: holidays/special occasions only Substance Use Type: does not use Exam Narrative Exam Narrative: GENERAL: [86] year old patient appears stated age. Well-developed patient, in no obvious distress. HEAD: Atraumatic. Normocephalic. EYES: Pupils equal round and reactive. Extraocular motions intact. No scleral icterus. No injection or drainage. ENT: Nose without bleeding, purulent drainage. Throat without erythema, tonsillar hypertrophy or exudate. Airway patent. NECK: Trachea midline. Non tender CARDIOVASCULAR: Regular rate and rhythm without murmurs, gallops, or rubs. RESPIRATORY: Clear to auscultation. Breath sounds equal bilaterally. No wheezes, rales, or rhonchi. GASTROINTESTINAL: Abdomen soft, non-tender, nondistended. EXTREMITIES:1+ edema bilateral LE, no pain, redness BACK: Nontender without deformity or crepitance. No flank tenderness. NEURO: AOx3. SKIN: No rash or erythema of visible areas Initial Vital Signs Initial Vital Signs: Vital Signs Temperature 97.0 F L 06/14/22 16:39 Pulse Rate 65 06/14/22 16:39 Respiratory Rate 22 06/14/22 16:39 Blood Pressure 191/74 H 06/14/22 16:39 Pulse Oximetry 99 06/14/22 16:39 Oxygen Delivery Method 06/14/22 16:39 Oxygen Flow Rate 3 06/14/22 16:39 Course Orders Ordered: ED Orders 06/14/22 16:46 XR chest 1V Stat EKG-12 Lead Stat Measure peak expiratory flow ONCE RT Consult Eval and Treat NOW 06/14/22 18:02 Complete Blood Count AUTO DIFF Stat Comprehensive Metabolic Panel Stat Lactate (Lactic Acid) Stat NT-proBNP (BNP-Adult 18+) Stat Prothrombin Time INR Stat Troponin I Stat 06/14/22 18:47 COVID19 -Nasal RAPID/Pre-Proc Stat Vital Signs Vital signs: Vital Signs - 8 hr 06/14/22 18:51 06/14/22 18:53 06/14/22 18:53 Pulse Rate 66 66 Respiratory Rate 13 9 L Blood Pressure 199/83 H Pulse Oximetry 98 98 Oxygen Delivery Method Nasal Cannula Oxygen Flow Rate 2 06/14/22 19:00 06/14/22 19:00 06/14/22 19:30 Pulse Rate 66 68 Respiratory Rate 18 20 Blood Pressure 176/73 H Pulse Oximetry 98 98 Oxygen Delivery Method Nasal Cannula Nasal Cannula Oxygen Flow Rate 2 2 MDM - SOB/Dyspnea Lab Data 06/14/22 18:02 06/14/22 18:02 Labs: Lab Results 06/14/22 06/14/22 06/14/22 Range/Units 18:02 18:02 18:02 WBC 6.8 (4.5-11.0) X10^3/uL RBC 4.60 (4.0-5.2) X10^6/uL Hgb 12.3 (12.0-16.0) g/dL Hct 37.4 (36-46) % MCV 81.3 (80-100) fL MCH 26.7 (26-34) PG MCHC 32.8 (30-36) % RDW 18.2 H (11.6-14.8) % Plt Count 230 (150-400) X10^3/uL Neut % (Auto) 57.0 (50-75) % Lymph % (Auto) 29.6 (25-40) % Douglas % (Auto) 10.0 (3-14) % Eos % (Auto) 2.6 (2-4) % Baso % (Auto) 0.8 (0-2) % Neut # (Auto) 3900 (5279-1016) /uL Lymph # (Auto) 2000 (0393-5065) /uL Douglas # (Auto) 700 (0-900) /uL Eos # (Auto) 200 (0-450) /uL Baso # (Auto) 100 (0-100) /uL PT 12.4 (10.1-12.7) SECONDS INR 1.1 (0.9-1.3) Sodium 138 (137-145) mmol/L Potassium 3.8 (3.4-5.1) mmol/L Chloride 100 (98-107) mmol/L Carbon Dioxide 30 (22-32) mmol/L BUN 13 (7-17) mg/dL Creatinine 0.95 (0.52-1.04) mg/dL Estimated GFR 59 L (>60) mL/min BUN/Creatinine Ratio 13.7 (6-22) Glucose 101 (80-110) mg/dL Lactate (0.7-2.1) mmol/L Calcium 9.0 (8.4-10.2) mg/dL Total Bilirubin 0.5 (0.2-1.3) mg/dL AST 21 (14-36) IU/L ALT 10 (<35) IU/L Alkaline Phosphatase 58 (38-126) U/L Troponin I 0.017 (0.01-0.034) ng/mL NT-Pro-B Natriuret Pep 648 H (<450) pg/mL Total Protein 7.2 (6.3-8.2) g/dL Albumin 4.0 (3.5-5.0) g/dL Globulin 3.2 (1.7-4.1) g/dL Albumin/Globulin Ratio 1.3 (1.0-2.8) SARS-CoV-2 (PCR) (Negative) 06/14/22 06/14/22 Range/Units 18:02 18:47 WBC (4.5-11.0) X10^3/uL RBC (4.0-5.2) X10^6/uL Hgb (12.0-16.0) g/dL Hct (36-46) % MCV (80-100) fL MCH (26-34) PG MCHC (30-36) % RDW (11.6-14.8) % Plt Count (150-400) X10^3/uL Neut % (Auto) (50-75) % Lymph % (Auto) (25-40) % Douglas % (Auto) (3-14) % Eos % (Auto) (2-4) % Baso % (Auto) (0-2) % Neut # (Auto) (8442-1269) /uL Lymph # (Auto) (8017-9606) /uL Douglas # (Auto) (0-900) /uL Eos # (Auto) (0-450) /uL Baso # (Auto) (0-100) /uL PT (10.1-12.7) SECONDS INR (0.9-1.3) Sodium (137-145) mmol/L Potassium (3.4-5.1) mmol/L Chloride (98-107) mmol/L Carbon Dioxide (22-32) mmol/L BUN (7-17) mg/dL Creatinine (0.52-1.04) mg/dL Estimated GFR (>60) mL/min BUN/Creatinine Ratio (6-22) Glucose (80-110) mg/dL Lactate 1.8 (0.7-2.1) mmol/L Calcium (8.4-10.2) mg/dL Total Bilirubin (0.2-1.3) mg/dL AST (14-36) IU/L ALT (<35) IU/L Alkaline Phosphatase (38-126) U/L Troponin I (0.01-0.034) ng/mL NT-Pro-B Natriuret Pep (<450) pg/mL Total Protein (6.3-8.2) g/dL Albumin (3.5-5.0) g/dL Globulin (1.7-4.1) g/dL Albumin/Globulin Ratio (1.0-2.8) SARS-CoV-2 (PCR) Negative (Negative) Imaging Data Chest x-ray: Radiologist's Impression: [address] [address] XRay Report Signed Patient: Lida Townsend MR#: [id number] : 1935 Acct:[id number] Age/Sex: 86 / F Date of Service: 06/14/22 Loc: ED Accession Number: [id number] ?? Procedure: XR chest 1V Ordering Provider: Valerio East D.O. PROCEDURE:? XR CHEST 1V ? INDICATIONS:? Shortness of breath ? TECHNIQUE:? One view of the chest was acquired.? ? COMPARISON:? [facility], CR, XR CHEST 1V, 04/25/2022, 16:01. ? FINDINGS:? ? Surgical changes and devices:? None.? ? Lungs and pleura:? On this semiupright portable chest examination, no large pneumothorax or large pleural effusions are seen.? No focal infiltrates are seen.? ? Mediastinum:? Mediastinal contours appear normal.? Heart size is normal.? ? Bones and chest wall:? No suspicious bony lesions.? Age-appropriate bony degenerative changes are seen.? Overlying soft tissues appear unremarkable.? ? ? IMPRESSION:? ? Portable chest within normal limits. ? ? ? Dictated by: Venkat Tucker M.D. on 06/14/2022 at 16:20 ? ? Approved by: Venkat Tucker M.D. on 06/14/2022 at 16:20 ? MDM Narrative Medical decision making narrative: CC: 86F with SOB, no pain, fever or chills Complicating co-morbidities: Age, CHF, HTN Data collected from: Patient Medical records reviewed: Multiple prior visits in our EMR Differential considered, but not limited to: COVID, FLU, CHF, Pneumonia, vs. other Exam documented above, pertinent findings include: No increased work of breathing or notable oxygen requirements. Being no wheezes, rales or rhonchi Lab Test results independently reviewed as above. Pertinent findings: No leukocytosis or anemia. Primary electrolytes and renal function within normal limits, slight increase in BNP Independently reviewed EKG as above Imaging studies independently reviewed: No acute process Discussion: 86-year-old female with extensive medical history complains of some shortness of breath, perhaps swelling in lower extremities and recent alterations in her diuretic. She has no significant work of breathing or increased oxygen requirements. Chest x-ray is clear labs are largely within normal limits. No evidence of COVID or flu. We did suggest increasing her Lasix for the next few days and following closely with her primary care provider Disposition: see below, along with detailed discharge instructions that have been reviewed with patient as well as indications for ED re-evaluation and additional outpatient follow up Discharge Plan Departure Patient Disposition: Home Clinical Impression: Chronic dyspnea, Cough Instructions: Cough, DI for Heart Failure Activity Restrictions/Additional Instructions: *You have been diagnosed with [acute on chronic shortness of breath, cough] as we discussed your history and physical exam as well as labs and chest x-ray are very reassuring *What to do: *Please consider increaseing your Lasix to twice daily for the next 3 days and then resume previous dosing. Otherwise, please continue to take your regular medications as directed. *Please follow up with your primary care provider in 2-3 days, call for an appointment. Let them know you were seen in the Emergency Department and that we ask that you be seen in follow up. We will electronically transmit a record of today's note if your PCP is in our system *Return to Emergency Department if you should have any new, worsening or concerning symptoms, such as [fever greater than 101 F, shaking chills, worsening pain, persistent vomiting or other bothersome symptoms] Prescriptions: No Action aspirin 81 MG tablet,delayed release (DR/EC) 81 mg PO DAILY Qty: 0 ranolazine 500 mg tablet extended release 12 hr 500 mg PO BID pantoprazole 40 mg Tablet,Delayed Release (Dr/Ec) 40 mg PO DAILY escitalopram oxalate 20 mg Tablet 20 mg PO DAILY alprazolam 0.5 mg tablet 0.5 mg PO Q6HR metoprolol tartrate 50 mg Tablet 50 mg PO TID Qty: 60 0RF furosemide 40 mg tablet 40 mg PO Q OTHER DAY Qty: 30 0RF oxycodone-acetaminophen 5-325 mg tablet 1 tab PO Q6H PRN (Reason: pain) Qty: 20 0RF nitroglycerin 0.4 mg tablet, sublingual 1 tab sublingual [id number] PRN (Reason: Chest Pain) Label Comments: take it when needed, last dose unknown rosuvastatin 40 mg tablet 40 mg PO QPM prednisone 5 mg tablet 5 mg PO DAILY Qty: 20 0RF oxycodone-acetaminophen 5-325 mg tablet 1 tab PO Q6H PRN (Reason: pain) Qty: 14 0RF prednisone 5 mg tablet 5 mg PO DAILY Qty: 20 0RF prednisone 5 mg tablet 5 mg PO DAILY Qty: 20 0RF Referrals: Zoe Bass PA-C [Primary Care Provider] - Stand Alone Forms: Patient Portal/API
[2022-06-14 18:36] LABS: Lactate (Lactic Acid) 1.8 mmol/L (0.7-2.1)
[2022-06-14 18:38] LABS: Alanine Aminotransferase 10 IU/L (<35); Albumin Globulin Ratio 1.3 (1.0-2.8); Alkaline Phosphatase 58 U/L (38-126); Aspartate Aminotransferase 21 IU/L (14-36); BUN Creatinine Ratio 13.7 (6-22); Bilirubin Total 0.5 mg/dL (0.2-1.3); Blood Urea Nitrogen 13 mg/dL (7-17); Carbon Dioxide 30 mmol/L (22-32); Chloride 100 mmol/L (98-107); Estimated Glomerular Filt Rate 59 mL/min (>60); Globulin 3.2 g/dL (1.7-4.1); Glucose 101 mg/dL (80-110); HEMOLYSIS 16 (0-50); Potassium 3.8 mmol/L (3.4-5.1); Sodium 138 mmol/L (137-145); Total Protein 7.2 g/dL (6.3-8.2)
[2022-06-14 18:49] LABS: NT-proBNP (BNP-Adult 18+) 648 pg/mL (<450); Troponin I 0.017 ng/mL (0.01-0.034)
[2022-06-14 18:51] VITALS: PULSE 66; RESP 13; O2SAT 98
[2022-06-14 18:53] VITALS: BP 199/83; PULSE 66; RESP 9; O2SAT 98
[2022-06-14 19:00] VITALS: BP 176/73; PULSE 66; RESP 18; O2SAT 98
[2022-06-14 19:18] LABS: COVID19 -Nasal RAPID Negative (Negative)
[2022-06-14 19:30] VITALS: PULSE 68; RESP 20; O2SAT 98
--- NOTE | 2022-06-14 19:31 | PC.NURSE ---
Patient taking home medications 12.5mg Metoprolol, Rosuvastatin 40mg and Ranolazine ER 500mg. Ok per Dr Nunez
== END 2022-06-14 20:00 | disposition home or self-care (01) ==
PROVIDERS: Emergency Medicine; Emergency Provider Emergency Medicine; Family Provider Internal Medicine; PCP Physician Assistant Medical; Referring Provider Physician Assistant Medical
DX: R06.00 Dyspnea, unspecified (principal); R05.9 Cough, unspecified; Z20.822 Contact with and (suspected) exposure to COVID-19
CPT/HCPCS: 36415; 71045; 80053; 83605; 83880; 84484; 85025; 85610; 87635; 93005; 99284; C9803

== ENCOUNTER 2022-07-01 12:07 | Emergency (ER) | payer MEDICARE, OTHER, SELFPAY ==
[2022-04-26 00:48] VITALS: BMI 37.8
[2022-07-01] VITALS (16 sets, daily range): BP systolic 114–205; BP diastolic 59–81; PULSE 59–72; RESP 9–29; TEMP 36.2; O2SAT 95–99; BMI 39.4
--- NOTE | 2022-07-01 12:19 | DI.RAD.S_ITS ---
PROCEDURE: XR CHEST 1V INDICATIONS: chest pain TECHNIQUE: One view of the chest was acquired. COMPARISON: [facility], CR, XR CHEST 1V, 06/14/2022, 16:48. FINDINGS: Surgical changes and devices: None. Lungs and pleura: Lungs appear clear. No pleural effusions or pneumothorax. Mediastinum: Mediastinal contours appear unchanged. Heart size is prominent. Bones and chest wall: No suspicious bony lesions. Overlying soft tissues appear unremarkable. IMPRESSION: No acute cardiopulmonary abnormality. Dictated by: Ehsan Banegas M.D. on 07/01/2022 at 13:47 Approved by: Ehsan Banegas M.D. on 07/01/2022 at 13:48
--- NOTE | 2022-07-01 13:08 | ED.CHESTPAIN ---
HPI - Chest Pain General Chief Complaint: Chest Pain Stated Complaint: pressure in chest, leg pain, lightheaded after rx Time Seen by Provider: 07/01/22 12:39 History of Present Illness HPI narrative: Patient is a 86-year-old female history of congestive heart failure, acute coronary disease, hypertension, hyperlipidemia presenting today with chest discomfort and near syncopal episodes. She says today she was sitting she stood up and had intense chest pressure she had to sit back down she felt like she might pass out. She then was able to walk to the restroom and when she sat down to rest it went away however soon as she stood up and started walking again she then had some chest pressure and did not feel well. It appears as though she was seen evaluated here 04/25/2022 for similar complaints. At that time she was admitted she underwent a nuclear stress test which was reassuring without evidence of ischemia she had an echocardiogram with an EF of 65-70% without any wall abnormalities. It was thought that her presyncopal episodes were thought to be secondary to Lasix and hypovolemia. She actually went to go see her continuing education director this week who restarted her Lasix daily. She reports significant improvement in her lower extremity edema. She denies any shortness of breath. She is normotensive here without tachycardia. She denies fever or chills. No nausea vomiting. She did not fall down or hit her head. She is no other injuries or complaints. She is followed by Dr. Ellington continuing education director Related Data Home Medications Medication Instructions Recorded Confirmed aspirin 81 mg tablet,delayed 81 mg PO DAILY ##0 05/14/17 03/06/21 release nitroglycerin 0.4 mg sublingual 1 tab sublingual [id number] PRN Chest 11/18/18 03/06/21 tablet Pain rosuvastatin 40 mg tablet 40 mg PO QPM 11/18/18 03/06/21 ranolazine 500 mg tablet,extended 500 mg PO BID 02/09/20 03/06/21 release,12 hr escitalopram oxalate 20 mg tablet 20 mg PO DAILY 03/06/21 03/06/21 pantoprazole 40 mg tablet,delayed 40 mg PO DAILY 03/06/21 03/06/21 release alprazolam 0.5 mg tablet 0.5 mg PO Q6HR anxiety 03/10/21 03/10/21 Previous Rx's Medication Instructions Recorded metoprolol tartrate 50 mg tablet 50 mg PO TID #60 tabs 03/11/21 oxycodone-acetaminophen 5 mg-325 1 tab PO Q6H PRN pain #14 tabs 06/14/21 mg tablet prednisone 5 mg tablet 5 mg PO DAILY #20 tabs 06/14/21 prednisone 5 mg tablet 5 mg PO DAILY #20 tabs 06/14/21 prednisone 5 mg tablet 5 mg PO DAILY #20 tabs 06/14/21 furosemide 40 mg tablet 40 mg PO Q OTHER DAY #30 tabs 04/27/22 oxycodone-acetaminophen 5 mg-325 1 tab PO Q6H PRN pain #20 tabs 04/27/22 mg tablet furosemide 20 mg tablet 20 mg PO DAILY #30 tabs 07/01/22 spironolactone 25 mg tablet 25 mg PO DAILY #30 tabs 07/01/22 Allergies Allergy/AdvReac Type Severity Reaction Status Date / Time ibuprofen [IBUPROFEN] Allergy Severe Rash Verified 06/14/22 16:37 Iodinated Contrast Media Allergy Severe Unconscious Verified 06/14/22 16:37 [IODINATED CONTRAST- ORAL AND IV DYE] morphine [MORPHINE] Allergy Severe Rash Verified 06/14/22 16:37 naproxen [From ALEVE] Allergy Severe Rash Verified 06/14/22 16:37 telmisartan [TELMISARTAN] Allergy Severe Rash Verified 06/14/22 16:37 Review of Systems Review of Systems ROS Unobtainable: All systems reviewed & are unremarkable except as noted in HPI and below Patient History Medical History (Updated 07/01/22 @ 16:29 by Zarina Gu DO) Cardiac arrest Chest pain Coronary artery disease Diastolic heart failure Hyperlipidemia Hypertension Left hamstring muscle strain NSTEMI (non-ST elevated myocardial infarction) Skin cancer UTI (urinary tract infection) Surgical History H/O right heart catheterization History of appendectomy History of breast implant removal History of breast surgery History of cholecystectomy History of coronary artery stent placement History of total abdominal hysterectomy Family History Father Hypertension Diabetes mellitus Mother Hypertension NE (myocardial infarction) Sister NE (myocardial infarction) S/P CABG x 4 Social History household members: children Smoking Status: Never smoker Smoking Status: Never smoker alcohol intake frequency: holidays/special occasions only Substance Use Type: does not use Exam Initial Vital Signs Initial Vital Signs: Vital Signs Temperature 97.1 F L 07/01/22 12:12 Pulse Rate 59 L 07/01/22 12:12 Respiratory Rate 16 07/01/22 12:12 Blood Pressure 114/59 L 07/01/22 12:12 Pulse Oximetry 97 07/01/22 12:12 Oxygen Delivery Method 07/01/22 12:12 GENERAL: Alert pleasant 86-year-old female and in no acute distress. HEENT: Head atraumatic,EOMI, pupils reactive, face symmetric, moist mucous membranes CARDIOVASCULAR: Regular rate and rhythm without murmurs, rubs or gallops. RESPIRATORY: Breath sounds equal bilaterally, no wheezes rales or rhonchi. ABDOMEN: Soft, nontender. Normoactive bowel sounds all 4 quadrants. No guarding or rebound. EXTREMITIES: Normal range of motion, no clubbing or edema. Neurovascularly intact NEUROLOGICAL: Alert and oriented x4.Normal gait and speech. SKIN: Warm, dry, no laceration, no petechiae, no rashes or lesions. Course Orders Ordered: Discontinued Medications Oxycodone HCl (Oxycodone Ir 5 Mg Tablet) 5 mg PO NOW ONE Stop: 07/01/22 15:33 Last Admin: 07/01/22 15:39 Dose: 5 mg Documented By: AT Vital Signs Vital signs: Vital Signs - 8 hr 07/01/22 12:12 07/01/22 12:53 07/01/22 13:00 Temperature 97.1 F L Pulse Rate 59 L 59 L 61 Respiratory Rate 16 29 H 24 Blood Pressure 114/59 L Pulse Oximetry 97 98 98 Oxygen Delivery Method Room Air Nasal Cannula Oxygen Flow Rate 3 07/01/22 13:22 07/01/22 13:22 07/01/22 13:30 Temperature Pulse Rate 63 Respiratory Rate 21 Blood Pressure 138/59 L 149/66 H Pulse Oximetry 98 Oxygen Delivery Method Nasal Cannula Oxygen Flow Rate 3 07/01/22 13:30 07/01/22 14:00 07/01/22 14:00 Temperature Pulse Rate 62 62 Respiratory Rate 18 10 L Blood Pressure 149/67 H Pulse Oximetry 99 98 Oxygen Delivery Method Nasal Cannula Nasal Cannula Oxygen Flow Rate 3 3 07/01/22 14:30 07/01/22 14:30 07/01/22 15:00 Temperature Pulse Rate 64 Respiratory Rate 9 L Blood Pressure 165/69 H 186/74 H Pulse Oximetry 98 Oxygen Delivery Method Nasal Cannula Oxygen Flow Rate 3 07/01/22 15:00 07/01/22 15:30 07/01/22 15:31 Temperature Pulse Rate 64 65 Respiratory Rate 12 18 Blood Pressure 205/77 H Pulse Oximetry 99 99 Oxygen Delivery Method Nasal Cannula Nasal Cannula Oxygen Flow Rate 3 3 07/01/22 15:31 07/01/22 16:00 07/01/22 16:01 Temperature Pulse Rate 64 62 Respiratory Rate 19 23 Blood Pressure 173/81 H Pulse Oximetry 98 98 Oxygen Delivery Method Nasal Cannula Oxygen Flow Rate 3 07/01/22 16:01 Temperature Pulse Rate 63 Respiratory Rate 18 Blood Pressure Pulse Oximetry 98 Oxygen Delivery Method Oxygen Flow Rate MDM - Chest Pain Lab Data 07/01/22 12:50 07/01/22 12:50 Labs: Lab Results 07/01/22 07/01/22 07/01/22 Range/Units 12:40 12:50 12:50 WBC 7.8 (4.5-11.0) X10^3/uL RBC 4.58 (4.0-5.2) X10^6/uL Hgb 12.2 (12.0-16.0) g/dL Hct 37.1 (36-46) % MCV 81.0 (80-100) fL MCH 26.7 (26-34) PG MCHC 33.0 (30-36) % RDW 17.3 H (11.6-14.8) % Plt Count 245 (150-400) X10^3/uL Neut % (Auto) 61.9 (50-75) % Lymph % (Auto) 26.4 (25-40) % Bay % (Auto) 9.2 (3-14) % Eos % (Auto) 1.8 L (2-4) % Baso % (Auto) 0.7 (0-2) % Neut # (Auto) 4800 (8476-4721) /uL Lymph # (Auto) 2100 (2397-2623) /uL Bay # (Auto) 700 (0-900) /uL Eos # (Auto) 100 (0-450) /uL Baso # (Auto) 100 (0-100) /uL PT 12.7 (10.1-12.7) SECONDS INR 1.1 (0.9-1.3) APTT 25 L (26-36) SECONDS Sodium (137-145) mmol/L Potassium (3.4-5.1) mmol/L Chloride (98-107) mmol/L Carbon Dioxide (22-32) mmol/L BUN (7-17) mg/dL Creatinine (0.52-1.04) mg/dL Estimated GFR (>60) mL/min BUN/Creatinine Ratio (6-22) Glucose (80-110) mg/dL Calcium (8.4-10.2) mg/dL Magnesium (1.6-2.3) mg/dL Total Bilirubin (0.2-1.3) mg/dL AST (14-36) IU/L ALT (<35) IU/L Alkaline Phosphatase (38-126) U/L Total Creatine Kinase (30-135) U/L CK-MB (CK-2) CK-MB (CK-2) Rel Index Troponin I (0.01-0.034) ng/mL NT-Pro-B Natriuret Pep (<450) pg/mL Total Protein (6.3-8.2) g/dL Albumin (3.5-5.0) g/dL Globulin (1.7-4.1) g/dL Albumin/Globulin Ratio (1.0-2.8) Lipase (23-300) U/L SARS-CoV-2 (PCR) Negative (Negative) 07/01/22 07/01/22 Range/Units 12:50 14:48 WBC (4.5-11.0) X10^3/uL RBC (4.0-5.2) X10^6/uL Hgb (12.0-16.0) g/dL Hct (36-46) % MCV (80-100) fL MCH (26-34) PG MCHC (30-36) % RDW (11.6-14.8) % Plt Count (150-400) X10^3/uL Neut % (Auto) (50-75) % Lymph % (Auto) (25-40) % Bay % (Auto) (3-14) % Eos % (Auto) (2-4) % Baso % (Auto) (0-2) % Neut # (Auto) (8796-2442) /uL Lymph # (Auto) (7189-2143) /uL Bay # (Auto) (0-900) /uL Eos # (Auto) (0-450) /uL Baso # (Auto) (0-100) /uL PT (10.1-12.7) SECONDS INR (0.9-1.3) APTT (26-36) SECONDS Sodium 138 (137-145) mmol/L Potassium 3.6 (3.4-5.1) mmol/L Chloride 97 L (98-107) mmol/L Carbon Dioxide 32 (22-32) mmol/L BUN 18 H (7-17) mg/dL Creatinine 1.13 H (0.52-1.04) mg/dL Estimated GFR 48 L (>60) mL/min BUN/Creatinine Ratio 15.9 (6-22) Glucose 127 H (80-110) mg/dL Calcium 8.9 (8.4-10.2) mg/dL Magnesium 2.0 (1.6-2.3) mg/dL Total Bilirubin 0.5 (0.2-1.3) mg/dL AST 20 (14-36) IU/L ALT 10 (<35) IU/L Alkaline Phosphatase 53 (38-126) U/L Total Creatine Kinase 40 (30-135) U/L CK-MB (CK-2) TNP CK-MB (CK-2) Rel Index TNP Troponin I 0.015 0.013 (0.01-0.034) ng/mL NT-Pro-B Natriuret Pep 658 H (<450) pg/mL Total Protein 7.1 (6.3-8.2) g/dL Albumin 4.1 (3.5-5.0) g/dL Globulin 3.0 (1.7-4.1) g/dL Albumin/Globulin Ratio 1.4 (1.0-2.8) Lipase 133 (23-300) U/L SARS-CoV-2 (PCR) (Negative) Imaging Data Chest x-ray: Radiologist's Impression: atient: KristianLida T MR#: [id number] : 1935 Acct:[id number] Age/Sex: 86 / F Date of Service: 07/01/22 Loc: ED Accession Number: [id number] ?? Procedure: XR chest 1V Ordering Provider: Zarina Gu D.O. PROCEDURE:? XR CHEST 1V ? INDICATIONS:? chest pain ? TECHNIQUE:? One view of the chest was acquired.? ? COMPARISON:? [facility], CR, XR CHEST 1V, 06/14/2022, 16:48. ? FINDINGS:? ? Surgical changes and devices:? None.? ? Lungs and pleura:? Lungs appear clear.? No pleural effusions or pneumothorax.? ? Mediastinum:? Mediastinal contours appear unchanged.? Heart size is prominent.? ? Bones and chest wall:? No suspicious bony lesions.? Overlying soft tissues appear unremarkable.? ? IMPRESSION:? No acute cardiopulmonary abnormality. ? ? ? Dictated by: Ehsan Banegas M.D. on 07/01/2022 at 13:47 ? ? ECG Data Interpretation: EKG 1. Normal sinus rhythm rate 65 NH interval 200 QRS [address] depression in V2 similar to prior and 04/25/2022 EKG 2. Sinus rhythm rate 65 no changes MDM Narrative Medical decision making narrative: Patient 86-year-old female history of coronary artery disease, diastolic congestive heart failure presenting today with presyncopal episodes and chest discomfort. This is the exact same presentation that she had in April. During that hospitalization she had nuclear stress test which not show any abnormality her presyncopal episode was thought to be secondary to over-diuresis. She just restarted her Lasix this week and started having the exact same symptoms. Today blood work is overall reassuring mild increasing creatinine of 1.1 however not out of the norm for her. Electrolytes are within normal limits. In 2 negative troponins. No recurrence of chest discomfort here. Chest x-ray has been reviewed not show any cardiopulmonary process. 1615 Dr. Pearson cardiology updated on patient's symptoms and test results he is able to review records on his side at this time recommends decreasing Lasix to 20 mg once a day adding spironolactone and stopping the potassium. Not necessarily concerned about her chest discomfort this time since it is very similar presentation and she just had a stress test. Patient vitals are stable she is not hypotensive or tachycardic here in the ED. Updated patient and family on new plan. They understand and agree. She overall is in no acute distress. Differential diagnosis is considered acute coronary syndrome, dehydration, pulmonary embolism, Discharge Plan Departure Patient Disposition: Home Clinical Impression: Atypical chest pain, CHF (congestive heart failure) Instructions: DI for Atypical Chest Pain Activity Restrictions/Additional Instructions: *You have been diagnosed with atypical chest pain and congestive heart failure *What to do: I spoke with Cardiology, Dr. Pearson, we are going to change up your medications. And you can follow-up with Dr. Ellington as scheduled *Continue to take medications as directed --> SENT TO [facility] Lasix 20 mg Spironolactone 25 mg every day Stop taking potassium chloride *Follow up with your primary care provider in 2-3 days or call [phone] Ellington as scheduled, you may call her office on Monday *Return to ER if you should have increasing chest pain dizziness passing out or any new, worsening or concerning symptoms Prescriptions: New spironolactone 25 mg tablet 25 mg PO DAILY Qty: 30 0RF furosemide 20 mg tablet 20 mg PO DAILY Qty: 30 0RF No Action aspirin 81 MG tablet,delayed release (DR/EC) 81 mg PO DAILY Qty: 0 ranolazine 500 mg tablet extended release 12 hr 500 mg PO BID pantoprazole 40 mg Tablet,Delayed Release (Dr/Ec) 40 mg PO DAILY escitalopram oxalate 20 mg Tablet 20 mg PO DAILY alprazolam 0.5 mg tablet 0.5 mg PO Q6HR metoprolol tartrate 50 mg Tablet 50 mg PO TID Qty: 60 0RF furosemide 40 mg tablet 40 mg PO Q OTHER DAY Qty: 30 0RF oxycodone-acetaminophen 5-325 mg tablet 1 tab PO Q6H PRN (Reason: pain) Qty: 20 0RF nitroglycerin 0.4 mg tablet, sublingual 1 tab sublingual [id number] PRN (Reason: Chest Pain) Label Comments: take it when needed, last dose unknown rosuvastatin 40 mg tablet 40 mg PO QPM prednisone 5 mg tablet 5 mg PO DAILY Qty: 20 0RF oxycodone-acetaminophen 5-325 mg tablet 1 tab PO Q6H PRN (Reason: pain) Qty: 14 0RF prednisone 5 mg tablet 5 mg PO DAILY Qty: 20 0RF prednisone 5 mg tablet 5 mg PO DAILY Qty: 20 0RF Referrals: Zoe Bass PA-C [Primary Care Provider] - Stand Alone Forms: Patient Portal/API
[2022-07-01 13:20] LABS: Add Manual Diff / Slide Review NO; Basophils Absolute Auto 100 /uL (0-100); Basophils Percent Auto 0.7 % (0-2); Eosinophils Absolute Auto 100 /uL (0-450); Eosinophils Percent Auto 1.8 % (2-4); Hematocrit 37.1 % (36-46); Hemoglobin 12.2 g/dL (12.0-16.0); Lymphocytes Absolute Auto 2100 /uL (1100-4500); Lymphocytes Percent Auto 26.4 % (25-40); Mean Corpuscular Hemoglobin 26.7 PG (26-34); Monocytes Absolute Auto 700 /uL (0-900); Monocytes Percent Auto 9.2 % (3-14); Neutrophils Absolute Auto 4800 /uL (1500-7000); Neutrophils Percent Auto 61.9 % (50-75); Platelet Count 245 X10^3/uL (150-400); Red Blood Cell Count 4.58 X10^6/uL (4.0-5.2); Red Cell Distribution Width 17.3 % (11.6-14.8); White Blood Cell Count 7.8 X10^3/uL (4.5-11.0)
[2022-07-01 13:25] LABS: INR 1.1 (0.9-1.3); Prothrombin Time 12.7 SECONDS (10.1-12.7)
[2022-07-01 13:26] LABS: Alanine Aminotransferase 10 IU/L (<35); Albumin 4.1 g/dL (3.5-5.0); Albumin Globulin Ratio 1.4 (1.0-2.8); Alkaline Phosphatase 53 U/L (38-126); Aspartate Aminotransferase 20 IU/L (14-36); BUN Creatinine Ratio 15.9 (6-22); Bilirubin Total 0.5 mg/dL (0.2-1.3); Blood Urea Nitrogen 18 mg/dL (7-17); Calcium 8.9 mg/dL (8.4-10.2); Carbon Dioxide 32 mmol/L (22-32); Chloride 97 mmol/L (98-107); Creatine Kinase 40 U/L (30-135); Estimated Glomerular Filt Rate 48 mL/min (>60); Glucose 127 mg/dL (80-110); Lipase 133 U/L (23-300); Potassium 3.6 mmol/L (3.4-5.1); Sodium 138 mmol/L (137-145); Total Protein 7.1 g/dL (6.3-8.2)
[2022-07-01 13:28] LABS: PTT Partial Thromboplastin Tim 25 SECONDS (26-36)
[2022-07-01 13:35] LABS: NT-proBNP (BNP-Adult 18+) 658 pg/mL (<450)
[2022-07-01 13:40] LABS: HEMOLYSIS 26 (0-50); Troponin I 0.015 ng/mL (0.01-0.034)
[2022-07-01 13:45] LABS: COVID19 -Nasal RAPID Negative (Negative)
[2022-07-01 15:23] LABS: Troponin I 0.013 ng/mL (0.01-0.034)
[2022-07-01] MEDS: OXYCODONE IR 5 MG TABLET PO (15:39)
== END 2022-07-01 17:40 | disposition home or self-care (01) ==
PROVIDERS: Emergency Provider Emergency Medicine; Family Provider Internal Medicine; PCP Physician Assistant Medical
DX: R07.89 Other chest pain (principal); I50.9 Heart failure, unspecified; R55 Syncope and collapse; Z20.822 Contact with and (suspected) exposure to COVID-19
CPT/HCPCS: 71045; 80053; 82550; 83690; 83735; 83880; 84484; 85025; 85610; 85730; 87635; 93005; 93010; 99284; C9803

== ENCOUNTER 2022-09-15 19:11 | Emergency (ER) | payer MEDICARE, OTHER, SELFPAY ==
[2022-04-26 00:48] VITALS: BMI 37.8
[2022-09-15] VITALS (7 sets, daily range): BP systolic 126–165; BP diastolic 56–72; PULSE 68–85; RESP 16–22; TEMP 36.8; O2SAT 95–100; BMI 37.8
--- NOTE | 2022-09-15 20:02 | DI.RAD.S_ITS ---
PROCEDURE: XR CHEST 1V INDICATIONS: chest pain TECHNIQUE: One view of the chest was acquired. COMPARISON: [facility], CR, XR CHEST 1V, 07/01/2022, 13:27. FINDINGS: Surgical changes and devices: None. Lungs and pleura: Lungs are clear. No pleural effusions or pneumothorax. Mediastinum: Mediastinal contours appear normal. Heart size is normal. Bones and chest wall: No suspicious bony lesions. Overlying soft tissues appear unremarkable. IMPRESSION: 1. No acute cardiopulmonary disease. Dictated by: Tony Treviño M.D. on 09/15/2022 at 20:38 Approved by: Tony Treviño M.D. on 09/15/2022 at 20:38
[2022-09-15 20:41] LABS: Add Manual Diff / Slide Review NO; Basophils Absolute Auto 100 /uL (0-100); Basophils Percent Auto 0.7 % (0-2); Eosinophils Absolute Auto 200 /uL (0-450); Eosinophils Percent Auto 2.2 % (2-4); Hematocrit 37.6 % (36-46); Hemoglobin 12.2 g/dL (12.0-16.0); Lymphocytes Absolute Auto 2600 /uL (1100-4500); Lymphocytes Percent Auto 26.3 % (25-40); Mean Corpuscular HGB Conc 32.5 % (30-36); Mean Corpuscular Hemoglobin 24.8 PG (26-34); Mean Corpuscular Volume 76.1 fL (80-100); Monocytes Absolute Auto 800 /uL (0-900); Monocytes Percent Auto 8.5 % (3-14); Neutrophils Absolute Auto 6100 /uL (1500-7000); Neutrophils Percent Auto 62.3 % (50-75); Platelet Count 251 X10^3/uL (150-400); Red Blood Cell Count 4.94 X10^6/uL (4.0-5.2); Red Cell Distribution Width 18.5 % (11.6-14.8); White Blood Cell Count 9.8 X10^3/uL (4.5-11.0)
[2022-09-15 20:49] LABS: INR 1.1 (0.9-1.3); Prothrombin Time 12.6 SECONDS (10.1-12.7)
[2022-09-15 20:51] LABS: PTT Partial Thromboplastin Tim 28 SECONDS (26-36)
[2022-09-15 20:53] LABS: Alanine Aminotransferase 11 IU/L (<35); Albumin 4.2 g/dL (3.5-5.0); Albumin Globulin Ratio 1.3 (1.0-2.8); Alkaline Phosphatase 69 U/L (38-126); Aspartate Aminotransferase 21 IU/L (14-36); Bilirubin Total 0.5 mg/dL (0.2-1.3); Blood Urea Nitrogen 18 mg/dL (7-17); Calcium 8.9 mg/dL (8.4-10.2); Carbon Dioxide 29 mmol/L (22-32); Chloride 99 mmol/L (98-107); Creatine Kinase 39 U/L (30-135); Estimated Glomerular Filt Rate 45 mL/min (>60); Globulin 3.2 g/dL (1.7-4.1); Glucose 152 mg/dL (80-110); HEMOLYSIS < 15 (0-50); Lipase 118 U/L (23-300); Potassium 3.9 mmol/L (3.4-5.1); Sodium 136 mmol/L (137-145); Total Protein 7.4 g/dL (6.3-8.2)
[2022-09-15 21:05] LABS: NT-proBNP (BNP-Adult 18+) 448 pg/mL (<450); Troponin I 0.012 ng/mL (0.01-0.034)
[2022-09-15] MEDS: diphenhydrAMINE 50 MG/ML VIAL IV (23:43)
[2022-09-15] MEDS: methylPREDNISolone 125 MG/2 ML VIAL IV (23:43)
[2022-09-15 23:59] LABS: Troponin I < 0.012 ng/mL (0.01-0.034)
[2022-09-16] VITALS (8 sets, daily range): BP systolic 163–196; BP diastolic 69–106; PULSE 78–89; RESP 18–29; O2SAT 92–97
--- NOTE | 2022-09-16 00:52 | ED_ITS ---
HPI - Chest Pain General Chief Complaint: Chest Pain Stated Complaint: Ear pain, Arm pain, Thinks possible heart problems Time Seen by Provider: 09/15/22 20:02 Source: patient and family Mode of arrival: Wheelchair Limitations: no limitations History of Present Illness HPI narrative: This is an 86-year-old female with history of congestive failure, coronary artery disease with 6 cardiac stents on Ranexa and aspirin daily, hypertension, dyslipidemia, diabetes and anxiety and on 2 L O2 daily who presents with com plaint of left ear pain that radiates towards the congregational, down the neck down her shoulder and down to the elbow. Patient states that it has been for about a week and a half it has been slowly worsening. She notes no fevers or chills but she is had some hoarseness and sore throat. She states this is new. She has not had any muffled voice. Patient states no headache, no vision changes. She has not had any new numbness, tingling or weakness. No difficulty with speech. No chest pain or shortness of breath. She denies nausea or vomiting. No diarrhea, constipation. No GI or urinary symptoms. Patient states she has not had similar symptoms in the past. She does note she has a perforated eardrum on the left. She was at walk-in clinic who sent her here for further evaluation. Patient states she had bilateral mastectomy for severe fibrocystic breast disease that was recurrently infected she did not have breast cancer. She is had 6 cardiac stents. 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 She is on home O2 daily at 2 L after she had COVID infection in the last couple of years. No tobacco, alcohol or illicit. MI bass is her primary care physician. Related Data Home Medications Medication Instructions Recorded Confirmed aspirin 81 mg tablet,delayed 81 mg PO DAILY ##0 05/14/17 03/06/21 release nitroglycerin 0.4 mg sublingual 1 tab sublingual [id number] PRN Chest 11/18/18 03/06/21 tablet Pain rosuvastatin 40 mg tablet 40 mg PO QPM 11/18/18 03/06/21 ranolazine 500 mg tablet,extended 500 mg PO BID 02/09/20 03/06/21 release,12 hr escitalopram oxalate 20 mg tablet 20 mg PO DAILY 03/06/21 03/06/21 pantoprazole 40 mg tablet,delayed 40 mg PO DAILY 03/06/21 03/06/21 release alprazolam 0.5 mg tablet 0.5 mg PO Q6HR anxiety 03/10/21 03/10/21 Previous Rx's Medication Instructions Recorded metoprolol tartrate 50 mg tablet 50 mg PO TID #60 tabs 03/11/21 oxycodone-acetaminophen 5 mg-325 1 tab PO Q6H PRN pain #14 tabs 06/14/21 mg tablet prednisone 5 mg tablet 5 mg PO DAILY #20 tabs 06/14/21 prednisone 5 mg tablet 5 mg PO DAILY #20 tabs 06/14/21 prednisone 5 mg tablet 5 mg PO DAILY #20 tabs 06/14/21 furosemide 40 mg tablet 40 mg PO Q OTHER DAY #30 tabs 04/27/22 oxycodone-acetaminophen 5 mg-325 1 tab PO Q6H PRN pain #20 tabs 04/27/22 mg tablet furosemide 20 mg tablet 20 mg PO DAILY #30 tabs 07/01/22 spironolactone 25 mg tablet 25 mg PO DAILY #30 tabs 07/01/22 Allergies Allergy/AdvReac Type Severity Reaction Status Date / Time ibuprofen [IBUPROFEN] Allergy Severe Rash Verified 06/14/22 16:37 Iodinated Contrast Media Allergy Severe Unconscious Verified 06/14/22 16:37 [IODINATED CONTRAST- ORAL AND IV DYE] morphine [MORPHINE] Allergy Severe Rash Verified 06/14/22 16:37 naproxen [From ALEVE] Allergy Severe Rash Verified 06/14/22 16:37 telmisartan [TELMISARTAN] Allergy Severe Rash Verified 06/14/22 16:37 Review of Systems Review of Systems ROS Unobtainable: All systems reviewed & are unremarkable except as noted in HPI and below Patient History Medical History (Updated 09/16/22 @ 02:33 by Cherry Riggins DO) Cardiac arrest Chest pain Coronary artery disease Diastolic heart failure Hyperlipidemia Hypertension Left hamstring muscle strain NSTEMI (non-ST elevated myocardial infarction) Skin cancer UTI (urinary tract infection) Surgical History H/O right heart catheterization History of appendectomy History of breast implant removal History of breast surgery History of cholecystectomy History of coronary artery stent placement History of total abdominal hysterectomy Family History Father Hypertension Diabetes mellitus Mother Hypertension NE (myocardial infarction) Sister NE (myocardial infarction) S/P CABG x 4 Social History household members: children Smoking Status: Never smoker Smoking Status: Never smoker alcohol intake frequency: holidays/special occasions only Substance Use Type: does not use Exam Narrative Exam Narrative: GEN: Obese, elderly female, alert and oriented x 3, patient appears to be in mild distress. HEENT: Atraumatic, pupils are equal round reactive to light, extraocular mov ements are intact, nares are clear, patient has mild cerumen on the right but TM appears intact, left TM has perforation, no erythema, no drainage, the canal itself is without any change. There is no tenderness on exam. Patient does not have any warmth erythema or skin changes of the neck or face. She does have some mild tenderness and slight fullness of the left anterior neck., there is no conjunctival pallor. Throat is clear without any exudates, erythema, tonsillar enlargement or uvular deviation, patient has slight hoarseness unclear sore throat frequently. No obvious deformity or mass. She has full range of motion. No muffled voice. No stridor no difficulty swallowing secretions. HEART: Regular rate and rhythm without murmur, clicks, rubs. No carotid bruits, pulses are equal in upper extremities LUNGS:Lungs clear to auscultation, no wheezes, rales, crackles, chest moves sym metrically ABD:bowel sounds normal, soft, non-tender, no guarding, rebound, rigidity, no masses noted, no hepatosplenomegaly :No CVA tenderness MSCL: Non-tender, no muscle atrophy, muscles strength 5/5 upper and lower extremities, full range of motion NEURO:CN 2-12 intact, sensation normal SKIN: No rash, erythema or other skin changes Initial Vital Signs Initial Vital Signs: Vital Signs Temperature 98.3 F 09/15/22 19:51 Pulse Rate 81 09/15/22 19:51 Respiratory Rate 20 09/15/22 19:51 Blood Pressure 126/56 L 09/15/22 19:51 Pulse Oximetry 97 09/15/22 19:51 Oxygen Delivery Method Room Air 09/15/22 19:51 Course Orders Ordered: ED Orders 09/15/22 20:02 XR chest 1V Stat EKG-12 Lead Stat 09/15/22 20:25 Complete Blood Count AUTO DIFF Stat Comprehensive Metabolic Panel Stat Lipase Stat NT-proBNP (BNP-Adult 18+) Stat PTT Partial Thromboplastin Garo Stat Prothrombin Time INR Stat Troponin & CK Cardiac Panel Stat 09/15/22 22:21 Troponin I Stat EKG-12 Lead Stat 09/15/22 23:25 Trop I [Troponin I] Stat 09/16/22 01:06 CT angio head and neck Stat Discontinued Medications Diphenhydramine HCl (Diphenhydramine 50 Mg/Ml Vial) 50 mg IV NOW ONE Stop: 09/15/22 23:23 Last Admin: 09/15/22 23:43 Dose: 50 mg Documented By: SHELLY Methylprednisolone (Methylprednisolone 125 Mg/2 Ml Vial) 125 mg IV NOW ONE Stop: 09/15/22 23:23 Last Admin: 09/15/22 23:43 Dose: 125 mg Documented By: SHELLY Vital Signs Vital signs: Vital Signs - 8 hr 09/15/22 19:51 09/15/22 21:46 09/15/22 22:53 Temperature 98.3 F Pulse Rate 81 68 85 Respiratory Rate 20 18 Blood Pressure 126/56 L Pulse Oximetry 97 100 96 Oxygen Delivery Method Room Air Room Air Oxygen Flow Rate 09/15/22 23:00 09/15/22 23:11 09/15/22 23:11 Temperature Pulse Rate 75 74 Respiratory Rate 18 16 Blood Pressure 145/66 H Pulse Oximetry 99 97 Oxygen Delivery Method Oxygen Flow Rate 09/15/22 23:30 09/15/22 23:31 09/15/22 23:31 Temperature Pulse Rate 77 75 Respiratory Rate 22 20 Blood Pressure 165/72 H Pulse Oximetry 95 96 Oxygen Delivery Method Oxygen Flow Rate 09/16/22 00:00 09/16/22 00:01 09/16/22 00:01 Temperature Pulse Rate 79 79 Respiratory Rate 18 22 Blood Pressure 196/106 H Pulse Oximetry 97 97 Oxygen Delivery Method Oxygen Flow Rate 09/16/22 00:07 09/16/22 00:07 09/16/22 00:30 Temperature Pulse Rate 80 Respiratory Rate 27 H Blood Pressure 181/75 H 163/72 H Pulse Oximetry 97 Oxygen Delivery Method Oxygen Flow Rate 09/16/22 00:30 09/16/22 01:01 09/16/22 01:01 Temperature Pulse Rate 78 81 Respiratory Rate 20 23 Blood Pressure 188/69 H Pulse Oximetry 97 97 Oxygen Delivery Method Oxygen Flow Rate 09/16/22 01:37 09/16/22 02:00 09/16/22 02:30 Temperature Pulse Rate 87 86 89 Respiratory Rate 19 22 29 H Blood Pressure Pulse Oximetry 97 96 92 Oxygen Delivery Method Room Air Oxygen Flow Rate 2 MDM - Chest Pain Lab Data 09/15/22 20:25 09/15/22 20:25 Labs: Lab Results 09/15/22 09/15/22 09/15/22 Range/Units 20:25 20:25 20:25 WBC 9.8 (4.5-11.0) X10^3/uL RBC 4.94 (4.0-5.2) X10^6/uL Hgb 12.2 (12.0-16.0) g/dL Hct 37.6 (36-46) % MCV 76.1 L (80-100) fL MCH 24.8 L (26-34) PG MCHC 32.5 (30-36) % RDW 18.5 H (11.6-14.8) % Plt Count 251 (150-400) X10^3/uL Neut % (Auto) 62.3 (50-75) % Lymph % (Auto) 26.3 (25-40) % [place] % (Auto) 8.5 (3-14) % Eos % (Auto) 2.2 (2-4) % Baso % (Auto) 0.7 (0-2) % Neut # (Auto) 6100 (0070-8678) /uL Lymph # (Auto) 2600 (9667-0349) /uL [place] # (Auto) 800 (0-900) /uL Eos # (Auto) 200 (0-450) /uL Baso # (Auto) 100 (0-100) /uL PT 12.6 (10.1-12.7) SECONDS INR 1.1 (0.9-1.3) APTT 28 (26-36) SECONDS Sodium 136 L (137-145) mmol/L Potassium 3.9 (3.4-5.1) mmol/L Chloride 99 (98-107) mmol/L Carbon Dioxide 29 (22-32) mmol/L BUN 18 H (7-17) mg/dL Creatinine 1.20 H (0.52-1.04) mg/dL Estimated GFR 45 L (>60) mL/min BUN/Creatinine Ratio 15.0 (6-22) Glucose 152 H (80-110) mg/dL Calcium 8.9 (8.4-10.2) mg/dL Total Bilirubin 0.5 (0.2-1.3) mg/dL AST 21 (14-36) IU/L ALT 11 (<35) IU/L Alkaline Phosphatase 69 (38-126) U/L Total Creatine Kinase 39 (30-135) U/L CK-MB (CK-2) TNP CK-MB (CK-2) Rel Index TNP Troponin I 0.012 (0.01-0.034) ng/mL NT-Pro-B Natriuret Pep 448 (<450) pg/mL Total Protein 7.4 (6.3-8.2) g/dL Albumin 4.2 (3.5-5.0) g/dL Globulin 3.2 (1.7-4.1) g/dL Albumin/Globulin Ratio 1.3 (1.0-2.8) Lipase 118 (23-300) U/L 09/15/22 Range/Units 23:25 WBC (4.5-11.0) X10^3/uL RBC (4.0-5.2) X10^6/uL Hgb (12.0-16.0) g/dL Hct (36-46) % MCV (80-100) fL MCH (26-34) PG MCHC (30-36) % RDW (11.6-14.8) % Plt Count (150-400) X10^3/uL Neut % (Auto) (50-75) % Lymph % (Auto) (25-40) % [place] % (Auto) (3-14) % Eos % (Auto) (2-4) % Baso % (Auto) (0-2) % Neut # (Auto) (8768-6481) /uL Lymph # (Auto) (4855-9554) /uL [place] # (Auto) (0-900) /uL Eos # (Auto) (0-450) /uL Baso # (Auto) (0-100) /uL PT (10.1-12.7) SECONDS INR (0.9-1.3) APTT (26-36) SECONDS Sodium (137-145) mmol/L Potassium (3.4-5.1) mmol/L Chloride (98-107) mmol/L Carbon Dioxide (22-32) mmol/L BUN (7-17) mg/dL Creatinine (0.52-1.04) mg/dL Estimated GFR (>60) mL/min BUN/Creatinine Ratio (6-22) Glucose (80-110) mg/dL Calcium (8.4-10.2) mg/dL Total Bilirubin (0.2-1.3) mg/dL AST (14-36) IU/L ALT (<35) IU/L Alkaline Phosphatase (38-126) U/L Total Creatine Kinase (30-135) U/L CK-MB (CK-2) CK-MB (CK-2) Rel Index Troponin I < 0.012 (0.01-0.034) ng/mL NT-Pro-B Natriuret Pep (<450) pg/mL Total Protein (6.3-8.2) g/dL Albumin (3.5-5.0) g/dL Globulin (1.7-4.1) g/dL Albumin/Globulin Ratio (1.0-2.8) Lipase (23-300) U/L ECG Data Attestation: I personally reviewed and interpreted this ECG as follows: Interpretation: Sinus rhythm incomplete right bundle, rate of 71 SC 184 QRS of 102 QTC of 486. No acute ST elevation. Patient has some RVH. EKG 2. Appears similar to 1st without any clear dynamic changes. Rate of 70 2p are 200, QRS of 94 QTC of 501. MDM Narrative Medical decision making narrative: This is an 86-year-old female who presents with complaint of left ear pain that radiates down her cheek into her neck, across her shoulder and down her arm. Patient has normal range of motion she does have some slight fullness of the neck, she has a perforated TM but no clear signs of infection. She is had some slight hoarseness and slight recent nasal congestion recently discussed with patient would be concerned about vascular versus possible infection or with her history of fibrocystic disease possibly mass causing her symptoms currently. Labs show a creatinine of 1.2 close to baseline, no significant changes to white count, sodium is 136 glucose is 152, troponins were negative x2 with a BNP of 448. EKGs do not show any dynamic changes. Patient was pretreated she has iodine allergy to contrast but states her 1st reaction was 50 years ago. She states she has tolerated IV contrast since then when pretreated. Plan for head and neck angio but also with soft tissue evaluation. T angio but include soft tissue is negative for any mass, infection there is no obvious dissection or aneurysm. On the other side on her right she does have s ome narrowing up to 70% with 50% on her left. Discussed patient she is well- appearing with no other acute emergent changes plan for watchful waiting she was sent prescription for Tylenol 3 for discomfort. She does not have any obvious changes such as shingles, the pattern is unlikely for giant cell arteritis when it extends to her arm. Patient and I discussed her imaging findings she is aware she is been told she has some narrowing before she is on a statin, Ranexa as well as aspirin. She will follow-up she is unsure if she would even want to pursue intervention even if she is a candidate. All questions answered and we discussed her return precautions. Discharge Plan Departure Patient Disposition: Home Clinical Impression: Facial pain Activity Restrictions/Additional Instructions: Your imaging today does not show any changes consistent with infection or mass, you have some narrowing in the right carotid that should be addressed if you would be a candidate for intervention. Please follow-up with your physician. There are no occlusions or changes to the vessels such as dissections on your imaging. You may take the Tylenol 3 prescribed from the walk-in clinic. Please follow-up for recheck. Please return for fever, rapidly worsening symptoms, severe headaches, new rash or skin changes, difficulty with swallowing, muffled voice, chest pain or shortness of breath, vomiting or other new or concerning changes. Prescriptions: No Action aspirin 81 MG tablet,delayed release (DR/EC) 81 mg PO DAILY Qty: 0 ranolazine 500 mg tablet extended release 12 hr 500 mg PO BID pantoprazole 40 mg Tablet,Delayed Release (Dr/Ec) 40 mg PO DAILY escitalopram oxalate 20 mg Tablet 20 mg PO DAILY alprazolam 0.5 mg tablet 0.5 mg PO Q6HR metoprolol tartrate 50 mg Tablet 50 mg PO TID Qty: 60 0RF furosemide 40 mg tablet 40 mg PO Q OTHER DAY Qty: 30 0RF oxycodone-acetaminophen 5-325 mg tablet 1 tab PO Q6H PRN (Reason: pain) Qty: 20 0RF nitroglycerin 0.4 mg tablet, sublingual 1 tab sublingual [id number] PRN (Reason: Chest Pain) Patient Comments: take it when needed, last dose unknown rosuvastatin 40 mg tablet 40 mg PO QPM prednisone 5 mg tablet 5 mg PO DAILY Qty: 20 0RF oxycodone-acetaminophen 5-325 mg tablet 1 tab PO Q6H PRN (Reason: pain) Qty: 14 0RF prednisone 5 mg tablet 5 mg PO DAILY Qty: 20 0RF prednisone 5 mg tablet 5 mg PO DAILY Qty: 20 0RF spironolactone 25 mg tablet 25 mg PO DAILY Qty: 30 0RF furosemide 20 mg tablet 20 mg PO DAILY Qty: 30 0RF Referrals: Bethany Ellington MD [Family Provider] - Zoe Bass PA-C [Primary Care Provider] - Stand Alone Forms: Patient Portal/API
--- NOTE | 2022-09-16 01:06 | DI.CT.S_ITS ---
PROCEDURE: CT ANGIO HEAD AND NECK INDICATIONS: pain ear/neck to arm, hoarseness, left neck pain TECHNIQUE: Pre-contrast 4.5 mm thick sections acquired from the foramen magnum to the vertex. After the administration of intravenous contrast, 1 mm thick sections acquired from the aortic arch through the [place] of [place]. Post-contrast 4.5 mm thick sections then re-acquired from the foramen magnum to the vertex. 3-dimensional rrfrpwe-gkyjrgnjk-rmzrzluijd (MIP) and/or volume rendering reformats were acquired of the central intracranial vasculature and neck separately. For radiation dose reduction, the following was used: automated exposure control, adjustment of mA and/or kV according to patient size. COMPARISON: [facility], CT, CT HEAD/BRAIN WO CON, 04/25/2022, 19:00. FINDINGS: Image quality: Excellent. BRAIN: CSF spaces: Basal cisterns are patent. No extra-axial fluid collections. There is moderate cerebral volume loss, with resultant ventricular and sulcal prominence. Brain: No intracranial hemorrhage, mass, or mass effect. There are subcortical, periventricular and deep white matter hypodensities consistent with moderate chronic small vessel ischemic changes. The barr[place]-white matter junction appears preserved. There is intracranial internal carotid artery atherosclerosis. No abnormal intracranial enhancement. Skull and face: Calvarium and facial bones appear intact, without suspicious lesions. Orbits appear normal. Sinuses: Sinuses and mastoids are clear. HEAD CT ANGIOGRAPHY: Anterior circulation: Intracranial internal carotid arteries are normal in size and appear patent bilaterally. There is mild atherosclerotic calcification along the cavernous segments of the internal carotid arteries. The paired anterior cerebral arteries appear patent bilaterally. The anterior communicating artery also appears patent. The middle cerebral arteries appear patent bilaterally. No high-grade stenosis, occlusion, or filling defects. No cerebral aneurysms identified. 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 The vertebral arteries join to form a patent basilar artery. The posterior cerebral arteries appears patent bilaterally. No high-grade stenosis, occlusion, or filling defects. No cerebral aneurysms identified. NECK CT ANGIOGRAPHY: Carotid system: The great vessels demonstrate a conventional anatomy as they arise from the aortic arch. The origins of the common carotid arteries appear patent. The common carotid arteries demonstrate normal caliber and courses. There is bilateral partially calcified atherosclerotic plaque in the carotid bulbs with severe narrowing of approximately 70% on the right and moderate narrowing of up to approximately 50% on the left. The internal carotid arteries demonstrate normal calibers and courses. Posterior circulation: The origins of the vertebral arteries both appear patent. The more superior extracranial portions of both vertebral arteries also demonstrate normal courses and calibers. They join to form a patent basilar artery. Soft tissues: Visualized neck soft tissues demonstrate no suspicious abnormalities. Bones: No suspicious bony lesions. Visualized cervical spine demonstrates straightening of the cervical lordosis. There is multilevel degenerative disc disease and facet joint arthropathy. IMPRESSION: 1. No acute intracranial abnormality. 2. Moderate cerebral volume loss and chronic white matter small vessel ischemic changes. 3. No high-grade stenosis or occlusion of the central intracranial arteries. 4. Severe narrowing in the right carotid bulb of approximately 70% and moderate narrowing of approximately 50% in the left bulb. Any quantitative measurements of stenosis were performed using NASCET criteria. Dictated by: Tony Treviño M.D. on 09/16/2022 at 1:56 Approved by: Tony Treviño M.D. on 09/16/2022 at 2:03
== END 2022-09-16 02:46 | disposition home or self-care (01) ==
PROVIDERS: Emergency Provider Emergency Medicine; Family Provider Internal Medicine; PCP Physician Assistant Medical
DX: R51.9 Headache, unspecified (principal); H92.02 Otalgia, left ear; R07.9 Chest pain, unspecified; M54.2 Cervicalgia; Z79.899 Other long term (current) drug therapy
CPT/HCPCS: 36415; 70496; 70498; 71045; 80053; 82550; 83690; 83880; 84484; 85025; 85610; 85730; 93005; 96374; 96375; 99284; J1200; J2930; Q9967

== ENCOUNTER 2022-12-13 10:03 | Emergency (ER) | payer MEDICARE, OTHER, SELFPAY ==
[2022-04-26 00:48] VITALS: BMI 37.8
[2022-12-13] VITALS (16 sets, daily range): BP systolic 137–221; BP diastolic 62–88; PULSE 56–71; RESP 12–25; TEMP 36.6–36.9; O2SAT 96–99; BMI 39.5
--- NOTE | 2022-12-13 10:26 | DI.RAD.S_ITS ---
PROCEDURE: XR CHEST 1V INDICATIONS: Shortness of breath TECHNIQUE: One view of the chest was acquired. COMPARISON: [facility], CR, XR CHEST 1V, 09/15/2022, 20:20. FINDINGS: Surgical changes and devices: None. Lungs and pleura: Obscuration left hemidiaphragm blunting the left costophrenic angle. Right lung and space clear Mediastinum: Heart size is enlarged. No significant vascular congestion Bones and chest wall: Generalized decreased osseous mineralization noted. Degenerative changes noted both shoulders IMPRESSION: Cardiomegaly and left basilar atelectasis and or infiltrate. No significant vascular congestion Approved by: Wu Jasso M.D. on 12/13/2022 at 10:36
[2022-12-13 11:08] LABS: Add Manual Diff / Slide Review NO; Basophils Absolute Auto 100 /uL (0-100); Basophils Percent Auto 0.8 % (0-2); Eosinophils Absolute Auto 100 /uL (0-450); Eosinophils Percent Auto 1.3 % (2-4); Hematocrit 41.3 % (36-46); Hemoglobin 13.4 g/dL (12.0-16.0); Lymphocytes Absolute Auto 2100 /uL (1100-4500); Lymphocytes Percent Auto 24.9 % (25-40); Mean Corpuscular HGB Conc 32.5 % (30-36); Mean Corpuscular Volume 73.9 fL (80-100); Monocytes Absolute Auto 800 /uL (0-900); Monocytes Percent Auto 9.4 % (3-14); Neutrophils Absolute Auto 5400 /uL (1500-7000); Neutrophils Percent Auto 63.6 % (50-75); Platelet Count 206 X10^3/uL (150-400); Red Cell Distribution Width 20.9 % (11.6-14.8); White Blood Cell Count 8.5 X10^3/uL (4.5-11.0)
[2022-12-13 11:16] LABS: INR 1.1 (0.9-1.3); Prothrombin Time 12.1 SECONDS (10.1-12.7)
--- NOTE | 2022-12-13 11:23 | ED_ITS ---
HPI - SOB/Dyspnea General Chief Complaint: Shortness of Breath/Dyspnea Stated Complaint: Cough, chest pain l side, fatigue, lethargic,SOB Time Seen by Provider: 12/13/22 11:01 Source: patient and family Mode of arrival: Family Vehicle Limitations: no limitations History of Present Illness HPI Narrative: Patient here with daughter for complaints of shortness of breath fever and chills, productive brown cough. Has right-sided lower chest pain with deep breath and coughing. No left-sided chest pain. Patient is on 2 or 3 L nasal cannula at home for oxygen, history of long COVID, she states had COVID pneumonia February 2021 and has required nasal cannula continuous oxygen at home. Recently she has required 3 L. No known sick contacts. Has history of CHF, she does state she is had more swelling in the legs recently. Patient in no distress at this time. No history of COPD Related Data Home Medications Medication Instructions Recorded Confirmed aspirin 81 mg tablet,delayed 81 mg PO DAILY ##0 05/14/17 03/06/21 release nitroglycerin 0.4 mg sublingual 1 tab sublingual [id number] PRN Chest 11/18/18 03/06/21 tablet Pain rosuvastatin 40 mg tablet 40 mg PO QPM 11/18/18 03/06/21 ranolazine 500 mg tablet,extended 500 mg PO BID 02/09/20 03/06/21 release,12 hr escitalopram oxalate 20 mg tablet 20 mg PO DAILY 03/06/21 03/06/21 pantoprazole 40 mg tablet,delayed 40 mg PO DAILY 03/06/21 03/06/21 release alprazolam 0.5 mg tablet 0.5 mg PO Q6HR anxiety 03/10/21 03/10/21 Previous Rx's Medication Instructions Recorded metoprolol tartrate 50 mg tablet 50 mg PO TID #60 tabs 03/11/21 oxycodone-acetaminophen 5 mg-325 1 tab PO Q6H PRN pain #14 tabs 06/14/21 mg tablet prednisone 5 mg tablet 5 mg PO DAILY #20 tabs 06/14/21 prednisone 5 mg tablet 5 mg PO DAILY #20 tabs 06/14/21 prednisone 5 mg tablet 5 mg PO DAILY #20 tabs 06/14/21 furosemide 40 mg tablet 40 mg PO Q OTHER DAY #30 tabs 04/27/22 oxycodone-acetaminophen 5 mg-325 1 tab PO Q6H PRN pain #20 tabs 04/27/22 mg tablet furosemide 20 mg tablet 20 mg PO DAILY #30 tabs 07/01/22 spironolactone 25 mg tablet 25 mg PO DAILY #30 tabs 07/01/22 benzonatate 100 mg capsule 100 mg PO TID PRN cough #20 caps 12/13/22 methylprednisolone 4 mg tablets in See Rx Instructions PO .COMPLEX 12/13/22 a dose pack (Medrol (Bryon)) #21 ea Allergies Allergy/AdvReac Type Severity Reaction Status Date / Time ibuprofen [IBUPROFEN] Allergy Severe Rash Verified 12/13/22 10:27 Iodinated Contrast Media Allergy Severe Unconscious Verified 12/13/22 10:27 [IODINATED CONTRAST- ORAL AND IV DYE] morphine [MORPHINE] Allergy Severe Rash Verified 12/13/22 10:27 naproxen [From ALEVE] Allergy Severe Rash Verified 12/13/22 10:27 telmisartan [TELMISARTAN] Allergy Severe Rash Verified 12/13/22 10:27 Review of Systems Review of Systems Narrative: GENERAL: negative chills, fatigue, malaise, positive fever, sweats. HEENT: negative sinus pain, ear pain, sore throat RESPIRATORY: Positive dyspnea, cough CARDIOVASCULAR: negative chest pain, palpitations GASTROINTESTINAL: negative nausea, vomiting, abdominal pain : negative dysuria, frequency, hematuria MUSCULOSKELETAL: negative muscle or bony pain SKIN: negative rash, skin lesions NEUROLOGIC: negative weakness, numbness ROS Unobtainable: All systems reviewed & are unremarkable except as noted in HPI and below Patient History Medical History (Updated 12/13/22 @ 15:15 by Richie Bull MD) Cardiac arrest Chest pain Coronary artery disease Diastolic heart failure Hyperlipidemia Hypertension Left hamstring muscle strain NSTEMI (non-ST elevated myocardial infarction) Skin cancer UTI (urinary tract infection) Surgical History H/O right heart catheterization History of appendectomy History of breast implant removal History of breast surgery History of cholecystectomy History of coronary artery stent placement History of total abdominal hysterectomy Family History Father Hypertension Diabetes mellitus Mother Hypertension [place] (myocardial infarction) Sister [place] (myocardial infarction) S/P CABG x 4 Social History household members: children Smoking Status: Never smoker Smoking Status: Never smoker alcohol intake frequency: holidays/special occasions only Substance Use Type: does not use Exam Narrative Exam Narrative: GENERAL: in no distress, not toxic not dyspneic HEAD: Normocephalic. EYES: Pupils equal round ENT: Mucous membranes moist. NECK: Trachea midline. CARDIOVASCULAR: Regular rate and rhythm without murmurs RESPIRATORY: Patient speaking full sentences. There is by basilar mild rales. No wheezing. Patient in no respiratory distress. Patient has right chest wall/side pain with coughing GASTROINTESTINAL: Abdomen soft, non-tender EXTREMITIES: No gross deformities. There is 2+ bilateral ankle edema BACK: No flank tenderness. NEURO: AOx4. SKIN: Warm and dry PSYCH: Not anxious, is cooperative Initial Vital Signs Initial Vital Signs: Vital Signs Pulse Rate 71 12/13/22 10:21 Pulse Oximetry 97 12/13/22 10:21 Course Orders Ordered: Discontinued Medications Albuterol (Albuterol Hfa Prepack) 1 box MISC SEEINSTR ONE Stop: 12/13/22 15:02 Last Admin: 12/13/22 15:15 Dose: 1 box Documented By: GLADYS Albuterol/Ipratropium (Albuterol/Ipratropium 3 Ml Ampul) 3 ml INH NOW ONE Stop: 12/13/22 13:52 Last Admin: 12/13/22 14:03 Dose: 3 ml Documented By: ANTONIO Benzonatate (Benzonatate 100 Mg Capsule) 100 mg PO NOW ONE Stop: 12/13/22 15:01 Last Admin: 12/13/22 15:14 Dose: 100 mg Documented By: GLADYS Prednisone (Prednisone 20 Mg Tablet) 40 mg PO NOW ONE Stop: 12/13/22 15:01 Last Admin: 12/13/22 15:15 Dose: 40 mg Documented By: GLADYS Vital Signs Vital signs: Vital Signs - 8 hr 12/13/22 10:28 12/13/22 10:21 12/13/22 10:25 Temperature 97.8 F Pulse Rate 67 71 Respiratory Rate 19 Blood Pressure 221/88 H 221/88 H Pulse Oximetry 98 97 Oxygen Delivery Method Room Air Oxygen Flow Rate 12/13/22 10:25 12/13/22 10:30 12/13/22 10:59 Temperature Pulse Rate 65 61 56 L Respiratory Rate 24 25 H Blood Pressure Pulse Oximetry 98 98 97 Oxygen Delivery Method Oxygen Flow Rate 12/13/22 10:59 12/13/22 11:00 12/13/22 11:00 Temperature Pulse Rate 56 L Respiratory Rate 16 Blood Pressure 145/65 H 143/65 H Pulse Oximetry 97 Oxygen Delivery Method Oxygen Flow Rate 12/13/22 11:30 12/13/22 12:00 12/13/22 12:00 Temperature Pulse Rate 56 L 57 L Respiratory Rate 22 12 Blood Pressure 139/63 Pulse Oximetry 97 96 Oxygen Delivery Method Oxygen Flow Rate 12/13/22 12:30 12/13/22 12:30 12/13/22 13:00 Temperature Pulse Rate 57 L Respiratory Rate 12 Blood Pressure 138/63 158/67 H Pulse Oximetry 98 Oxygen Delivery Method Nasal Cannula Oxygen Flow Rate 3 12/13/22 13:00 12/13/22 13:30 12/13/22 14:08 Temperature Pulse Rate 60 65 Respiratory Rate 12 12 Blood Pressure Pulse Oximetry 98 99 98 Oxygen Delivery Method Nasal Cannula Oxygen Flow Rate 3 12/13/22 14:00 12/13/22 14:01 12/13/22 14:01 Temperature 98.5 F Pulse Rate 62 61 Respiratory Rate 17 18 Blood Pressure 138/62 Pulse Oximetry 98 98 Oxygen Delivery Method Nasal Cannula Oxygen Flow Rate 3 12/13/22 14:30 12/13/22 14:30 Temperature Pulse Rate 63 Respiratory Rate 14 Blood Pressure 137/63 Pulse Oximetry 98 Oxygen Delivery Method Room Air Oxygen Flow Rate MDM - SOB/Dyspnea Lab Data 12/13/22 10:55 12/13/22 10:55 Labs: Lab Results 12/13/22 12/13/22 12/13/22 Range/Units 10:55 10:55 10:55 WBC 8.5 (4.5-11.0) X10^3/uL RBC 5.60 H (4.0-5.2) X10^6/uL Hgb 13.4 (12.0-16.0) g/dL Hct 41.3 (36-46) % MCV 73.9 L (80-100) fL MCH 24.0 L (26-34) PG MCHC 32.5 (30-36) % RDW 20.9 H (11.6-14.8) % Plt Count 206 (150-400) X10^3/uL Neut % (Auto) 63.6 (50-75) % Lymph % (Auto) 24.9 L (25-40) % [place] % (Auto) 9.4 (3-14) % Eos % (Auto) 1.3 L (2-4) % Baso % (Auto) 0.8 (0-2) % Neut # (Auto) 5400 (0951-5032) /uL Lymph # (Auto) 2100 (8594-8753) /uL [place] # (Auto) 800 (0-900) /uL Eos # (Auto) 100 (0-450) /uL Baso # (Auto) 100 (0-100) /uL RBC Morphology Not Reportable Anisocytosis 1+ H PT 12.1 (10.1-12.7) SECONDS INR 1.1 (0.9-1.3) Sodium 136 L (137-145) mmol/L Potassium 4.7 (3.4-5.1) mmol/L Chloride 103 (98-107) mmol/L Carbon Dioxide 24 (22-32) mmol/L BUN 15 (7-17) mg/dL Creatinine 1.24 H (0.52-1.04) mg/dL Estimated GFR 43 L (>60) mL/min BUN/Creatinine Ratio 12.1 (6-22) Glucose 107 (80-110) mg/dL Lactate (0.7-2.1) mmol/L Calcium 9.2 (8.4-10.2) mg/dL Total Bilirubin 0.8 (0.2-1.3) mg/dL AST 36 (14-36) IU/L ALT 12 (<35) IU/L Alkaline Phosphatase 53 (38-126) U/L Troponin I 0.015 (0.01-0.034) ng/mL NT-Pro-B Natriuret Pep 593 H (<450) pg/mL Total Protein 7.7 (6.3-8.2) g/dL Albumin 4.1 (3.5-5.0) g/dL Globulin 3.6 (1.7-4.1) g/dL Albumin/Globulin Ratio 1.1 (1.0-2.8) Chlamy pneumoniae PCR (Not Detect) Adenovirus (PCR) (Not Detect) B. pertussis DNA (PCR) (Not Detecte) B.parapertussis DNA PCR (Not Detecte) Coronavirus OC43 (PCR) (Not Detect) Coronavirus HKU1 (PCR) (Not Detect) Coronavirus 229E (PCR) (Not Detect) SARS-CoV-2 (PCR) (Not Detecte) Coronavirus NL63 (PCR) (Not Detect) Human Metapneumovir PCR (Not Detect) Influenza Type A (PCR) (Not Detect) Influenza Type B (PCR) (Not Detect) M. pneumoniae (PCR) (Not Detect) Parainfluenza 1 (PCR) (Not Detect) Parainfluenza 2 (PCR) (Not Detect) Parainfluenza 3 (PCR) (Not Detect) Parainfluenza 4 (PCR) (Not Detect) RSV (PCR) (Not Detect) Entero/Rhino (PCR) (Not Detect) 12/13/22 12/13/22 12/13/22 Range/Units 10:55 11:28 13:02 WBC (4.5-11.0) X10^3/uL RBC (4.0-5.2) X10^6/uL Hgb (12.0-16.0) g/dL Hct (36-46) % MCV (80-100) fL MCH (26-34) PG MCHC (30-36) % RDW (11.6-14.8) % Plt Count (150-400) X10^3/uL Neut % (Auto) (50-75) % Lymph % (Auto) (25-40) % [place] % (Auto) (3-14) % Eos % (Auto) (2-4) % Baso % (Auto) (0-2) % Neut # (Auto) (8478-7217) /uL Lymph # (Auto) (8854-4710) /uL [place] # (Auto) (0-900) /uL Eos # (Auto) (0-450) /uL Baso # (Auto) (0-100) /uL RBC Morphology Anisocytosis PT (10.1-12.7) SECONDS INR (0.9-1.3) Sodium (137-145) mmol/L Potassium (3.4-5.1) mmol/L Chloride (98-107) mmol/L Carbon Dioxide (22-32) mmol/L BUN (7-17) mg/dL Creatinine (0.52-1.04) mg/dL Estimated GFR (>60) mL/min BUN/Creatinine Ratio (6-22) Glucose (80-110) mg/dL Lactate 2.6 H 0.9 (0.7-2.1) mmol/L Calcium (8.4-10.2) mg/dL Total Bilirubin (0.2-1.3) mg/dL AST (14-36) IU/L ALT (<35) IU/L Alkaline Phosphatase (38-126) U/L Troponin I (0.01-0.034) ng/mL NT-Pro-B Natriuret Pep (<450) pg/mL Total Protein (6.3-8.2) g/dL Albumin (3.5-5.0) g/dL Globulin (1.7-4.1) g/dL Albumin/Globulin Ratio (1.0-2.8) Chlamy pneumoniae PCR Not detected (Not Detect) Adenovirus (PCR) Not detected (Not Detect) B. pertussis DNA (PCR) Not detected (Not Detecte) B.parapertussis DNA PCR Not detected (Not Detecte) Coronavirus OC43 (PCR) Not detected (Not Detect) Coronavirus HKU1 (PCR) Not detected (Not Detect) Coronavirus 229E (PCR) Not detected (Not Detect) SARS-CoV-2 (PCR) Not detected (Not Detecte) Coronavirus NL63 (PCR) Not detected (Not Detect) Human Metapneumovir PCR Not detected (Not Detect) Influenza Type A (PCR) Not detected (Not Detect) Influenza Type B (PCR) Not detected (Not Detect) M. pneumoniae (PCR) Not detected (Not Detect) Parainfluenza 1 (PCR) Not detected (Not Detect) Parainfluenza 2 (PCR) Not detected (Not Detect) Parainfluenza 3 (PCR) Not detected (Not Detect) Parainfluenza 4 (PCR) Not detected (Not Detect) RSV (PCR) Not detected (Not Detect) Entero/Rhino (PCR) Not detected (Not Detect) Imaging Data Chest x-ray: Radiologist's Impression: [address] [address] XRay Report Signed Patient: Lida Townsend MR#: [id number] : 1935 Acct:[id number] Age/Sex: 87 / F Date of Service: 12/13/22 Loc: ED Accession Number: [id number] ?? Procedure: XR chest 1V Ordering Provider: Richie Bull MD PROCEDURE:? XR CHEST 1V ? INDICATIONS:? Shortness of breath ? TECHNIQUE:? One view of the chest was acquired.? ? COMPARISON:? [facility], CR, XR CHEST 1V, 09/15/2022, 20:20. ? FINDINGS:? ? Surgical changes and devices:? None.? ? Lungs and pleura:? Obscuration left hemidiaphragm blunting the left costophrenic angle.? Right lung and space clear ? Mediastinum:? Heart size is enlarged.? No significant vascular congestion ? Bones and chest wall:? Generalized decreased osseous mineralization noted.? Degenerative changes noted both shoulders ? IMPRESSION:? ? Cardiomegaly and left basilar atelectasis and or infiltrate.? No significant vascular congestion ? ? ? Approved by: Wu Jasso M.D. on 12/13/2022 at 10:36? CT scan - chest: Radiologist's Impression: [place] [address] CT Scan Report Signed Patient: Lida Townsend MR#: [id number] : 1935 Acct:[id number] Age/Sex: 87 / F Date of Service: 12/13/22 Loc: ED Accession Number: [id number] ?? Procedure: CT chest wo con Ordering Provider: Richie Bull MD PROCEDURE:? CT CHEST WO CON ? INDICATIONS:? Dyspnea ? TECHNIQUE: Noncontrast 5 mm thick sections acquired from the pulmonary apices to the posterior costophrenic angles.? 1 mm lung window, 5 mm thick coronal and sagittal and 7 mm axial MIP reformats were then acquired.? For radiation dose reduction, the following was used:? automated exposure control, adjustment of mA and/or kV according to patient size.? ? COMPARISON:? [facility], CT, CT ANGIO CHEST PE PROTOCOL, 04/26/2022, 8:59. ? FINDINGS:? Image quality:? Excellent.? ? Lungs and pleura:? No acute air space opacities.? No pleural effusions or pneumothorax.? Central and peripheral airways are patent and normal in caliber.? Chronic interstitial changes present. ? Mediastinum:? Heart size is enlarged.? No pericardial effusion.? No mediastinal adenopathy by size criteria.? Thoracic aorta and central pulmonary arteries are normal in size.? Esophagus is normal in caliber.? Small hiatal hernia.? Dense coronary artery vascular calcification.? Aortic atherosclerotic vascular calcification ? Bones and chest wall:? Stable T7 and T10 compression fractures.? No adenopathy.? Soft tissue asymmetry noted in the right upper breast, similar prior.? Degenerative changes noted glenohumeral joints ? Abdomen:? Visualized upper abdominal solid organs and bowel loops appear normal in the absence of contrast.? ? IMPRESSION:? ? No acute CT findings in the chest. ? Stable chronic findings right breast asymmetry or nodularity, old wedge-shaped compression fractures, and degenerative bilateral shoulder arthropathy ? ? ? Approved by: Wu Jasso M.D. on 12/13/2022 at 13:45? [facility] Narrative Medical decision making narrative: Patient here with daughter for complaints of shortness of breath fever and chills, productive brown cough. Has right-sided lower chest pain with deep breath and coughing. No left-sided chest pain. Patient is on 2 or 3 L nasal cannula at home for oxygen, history of long COVID, she states had COVID pneumonia February 2021 and has required nasal cannula continuous oxygen at home. Recently she has required 3 L. No known sick contacts. Has history of CHF, she does state she is had more swelling in the legs recently. Patient in no distress at this time. No history of COPD After history and exam CBC CMP troponin BNP respiratory panel EKG chest x-ray [facility] CC: Short of breath Complicating co-morbidities: Long COVID/CHF Data collected from: Patient and her daughter Medical records reviewed: No recent visit for this complaint Differential considered: Includes but not limited to pneumonia PE CHF bronchitis pleurisy Exam documented above, pertinent findings include: Bilateral rales, bilateral ankle edema Lab Test results independently reviewed as above. Pertinent findings: WBC 8.5 hemoglobin 13.4 INR 1.1 BUN 15 creatinine 1.24 potassium 4.7 lactic acid 0.9 BNP 593 troponin 0.015 respiratory panel negative Independently reviewed EKG normal sinus rhythm rate [address] elevation or depression. There is incomplete right bundle-branch block Imaging studies independently reviewed: Chest x-ray cardiomegaly and left basilar atelectasis or infiltrate no significant vascular congestion CT chest no acute findings Consultations: None indicated at this time Treatments: DuoNeb Tessalon Perles prednisone albuterol inhaler Re-evaluations: 3:00 p.m.. Reviewed results with patient. At this time they are reassuring. No antibiotics indicated. Patient likely does have bronchitis. Does feel little bit better with DuoNeb treatment. On re-examination no rales on exam after DuoNeb treatment. Improved lung sounds. Slight wheezing on the right base. Patient speaking full sentences. Patient does desire discharge home. Return precautions reviewed with her. Albuterol inhaler will be sent home with her. Prescription for Medrol Dosepak as well as Tessalon Perle will be provided. Right side chest pain likely pleurisy Discussion: Appropriate for discharge home. Patient likely has pleurisy and bronchitis. Reviewed with patient and daughter return precautions. Breathing treatment helped patient's lung sounds. Patient will be sent home with inhaler and prescription for Medrol Dosepak and Tessalon Perles. She will continue Tylenol for pain. Return precautions reviewed. They desire discharge home. No antibiotics indicated at this time, patient on 2 L nasal cannula not requiring 3 L. Patient has recurrent upper respiratory symptoms since diagnosed with COVID. This is likely complication from it. Diagnosis: Acute bronchitis/pleurisy Discharge Plan Departure Patient Disposition: Home Clinical Impression: Acute bronchitis, Pleurisy Instructions: DI for Acute Bronchitis, DI for Pleurisy Activity Restrictions/Additional Instructions: Please see family doctor this week for re-evaluation. Return if worse if any questions or concerns. Please do continue home medications. Prescription for steroid pack, you have used in the past, has been provided to your pharmacy to continue tomorrow. Cough medication has been provided as well. May continue Tylenol for pain. May use provided inhaler 2 puffs every 4 or 6 hours as needed for shortness of breath. Return if not improving Prescriptions: New benzonatate 100 mg capsule 100 mg PO TID PRN (Reason: cough) Qty: 20 0RF methylprednisolone [Medrol (Bryon)] 4 mg tablets,dose pack See Rx Instructions .ROUTE .COMPLEX Qty: 21 0RF Rx Instructions: orally per package directions No Action aspirin 81 MG tablet,delayed release (DR/EC) 81 mg PO DAILY Qty: 0 ranolazine 500 mg tablet extended release 12 hr 500 mg PO BID pantoprazole 40 mg Tablet,Delayed Release (Dr/Ec) 40 mg PO DAILY escitalopram oxalate 20 mg Tablet 20 mg PO DAILY alprazolam 0.5 mg tablet 0.5 mg PO Q6HR metoprolol tartrate 50 mg Tablet 50 mg PO TID Qty: 60 0RF furosemide 40 mg tablet 40 mg PO Q OTHER DAY Qty: 30 0RF oxycodone-acetaminophen 5-325 mg tablet 1 tab PO Q6H PRN (Reason: pain) Qty: 20 0RF nitroglycerin 0.4 mg tablet, sublingual 1 tab sublingual [id number] PRN (Reason: Chest Pain) Patient Comments: take it when needed, last dose unknown rosuvastatin 40 mg tablet 40 mg PO QPM prednisone 5 mg tablet 5 mg PO DAILY Qty: 20 0RF oxycodone-acetaminophen 5-325 mg tablet 1 tab PO Q6H PRN (Reason: pain) Qty: 14 0RF prednisone 5 mg tablet 5 mg PO DAILY Qty: 20 0RF prednisone 5 mg tablet 5 mg PO DAILY Qty: 20 0RF spironolactone 25 mg tablet 25 mg PO DAILY Qty: 30 0RF furosemide 20 mg tablet 20 mg PO DAILY Qty: 30 0RF Referrals: Zoe Bass PA-C [Primary Care Provider] - Stand Alone Forms: Patient Portal/API
[2022-12-13 11:25] LABS: Alanine Aminotransferase 12 IU/L (<35); Albumin 4.1 g/dL (3.5-5.0); Albumin Globulin Ratio 1.1 (1.0-2.8); Alkaline Phosphatase 53 U/L (38-126); BUN Creatinine Ratio 12.1 (6-22); Bilirubin Total 0.8 mg/dL (0.2-1.3); Blood Urea Nitrogen 15 mg/dL (7-17); Calcium 9.2 mg/dL (8.4-10.2); Carbon Dioxide 24 mmol/L (22-32); Chloride 103 mmol/L (98-107); Estimated Glomerular Filt Rate 43 mL/min (>60); Globulin 3.6 g/dL (1.7-4.1); Glucose 107 mg/dL (80-110); Lactate (Lactic Acid) 2.6 mmol/L (0.7-2.1); Sodium 136 mmol/L (137-145); Total Protein 7.7 g/dL (6.3-8.2)
[2022-12-13 11:28] LABS: Anisocytosis 1+
[2022-12-13 11:30] LABS: HEMOLYSIS 90 (0-50)
[2022-12-13 11:34] LABS: Potassium 4.7 mmol/L (3.4-5.1)
[2022-12-13 11:35] LABS: Aspartate Aminotransferase 36 IU/L (14-36); NT-proBNP (BNP-Adult 18+) 593 pg/mL (<450); Troponin I 0.015 ng/mL (0.01-0.034)
[2022-12-13 12:29] LABS: Adenovirus Not Detected (Not Detect); B. parapertussis Not Detected (Not Detecte); Bordetella pertussis Not Detected (Not Detecte); Chlamydophila pneumoniae Not Detected (Not Detect); Coronavirus 229E Not Detected (Not Detect); Coronavirus HKU1 Not Detected (Not Detect); Coronavirus NL 63 Not Detected (Not Detect); Coronavirus OC43 Not Detected (Not Detect); Human Metapneumovirus Not Detected (Not Detect); Human Rhinovirus/Enterovirus Not Detected (Not Detect); Influenza A Not Detected (Not Detect); Influenza B Not Detected (Not Detect); Parainfluenza Virus 1 Not Detected (Not Detect); Parainfluenza Virus 2 Not Detected (Not Detect); Parainfluenza Virus 3 Not Detected (Not Detect); Parainfluenza Virus 4 Not Detected (Not Detect); Respiratory Syncytial Virus Not Detected (Not Detect); SARS- CoV-2 Not Detected (Not Detecte)
[2022-12-13 12:30] LABS: Mycoplasma pneumoniae Not Detected (Not Detect)
[2022-12-13 13:02] LABS: Reflexed Lactate in 2 Hours Y
--- NOTE | 2022-12-13 13:09 | DI.CT.S_ITS ---
PROCEDURE: CT CHEST WO CON INDICATIONS: Dyspnea TECHNIQUE: Noncontrast 5 mm thick sections acquired from the pulmonary apices to the posterior costophrenic angles. 1 mm lung window, 5 mm thick coronal and sagittal and 7 mm axial MIP reformats were then acquired. For radiation dose reduction, the following was used: automated exposure control, adjustment of mA and/or kV according to patient size. COMPARISON: [facility], CT, CT ANGIO CHEST PE PROTOCOL, 04/26/2022, 8:59. FINDINGS: Image quality: Excellent. Lungs and pleura: No acute air space opacities. No pleural effusions or pneumothorax. Central and peripheral airways are patent and normal in caliber. Chronic interstitial changes present. Mediastinum: Heart size is enlarged. No pericardial effusion. No mediastinal adenopathy by size criteria. Thoracic aorta and central pulmonary arteries are normal in size. Esophagus is normal in caliber. Small hiatal hernia. Dense coronary artery vascular calcification. Aortic atherosclerotic vascular calcification Bones and chest wall: Stable T7 and T10 compression fractures. No adenopathy. Soft tissue asymmetry noted in the right upper breast, similar prior. Degenerative changes noted glenohumeral joints Abdomen: Visualized upper abdominal solid organs and bowel loops appear normal in the absence of contrast. IMPRESSION: No acute CT findings in the chest. Stable chronic findings right breast asymmetry or nodularity, old wedge-shaped compression fractures, and degenerative bilateral shoulder arthropathy Approved by: Wu Jasso M.D. on 12/13/2022 at 13:45
[2022-12-13 13:46] LABS: Lactate 2HR (Lactic Acid Rflx) 0.9 mmol/L (0.7-2.1)
[2022-12-13] MEDS: ALBUTEROL/IPRATROPIUM 3 ML AMPUL INH (14:03)
[2022-12-13] MEDS: BENZONATATE 100 MG CAPSULE PO (15:14)
[2022-12-13] MEDS: predniSONE 20 MG TABLET 40 MG PO (15:15)
[2022-12-13] MEDS: ALBUTEROL HFA PREPACK 1 BOX MISC (15:15)
== END 2022-12-13 15:32 | disposition home or self-care (01) ==
PROVIDERS: Emergency Provider Emergency Medicine; Family Provider Internal Medicine; PCP Physician Assistant Medical
DX: J20.9 Acute bronchitis, unspecified (principal); R09.1 Pleurisy; R07.9 Chest pain, unspecified; Z20.822 Contact with and (suspected) exposure to COVID-19
CPT/HCPCS: 36415; 71045; 71250; 80053; 83605; 83880; 84484; 85025; 85610; 87633; 93005; 93010; 94640; 99284; 99285

== ENCOUNTER 2022-12-21 14:57 | Emergency (ER) | payer MEDICARE, OTHER, SELFPAY ==
[2022-04-26 00:48] VITALS: BMI 37.8
[2022-12-21] VITALS (33 sets, daily range): BP systolic 119–182; BP diastolic 57–77; PULSE 58–80; RESP 22; TEMP 36.6; O2SAT 94–99; BMI 36.3
--- NOTE | 2022-12-21 15:19 | DI.RAD.S_ITS ---
PROCEDURE: XR CHEST 1V INDICATIONS: Shortness of breath TECHNIQUE: One view of the chest was acquired. COMPARISON: [facility], CT, CT CHEST WO CON, 12/13/2022, 13:16. [facility], CR, XR CHEST 1V, 09/15/2022, 20:20. [facility], CR, XR CHEST 1V, 12/13/2022, 10:23. FINDINGS: Surgical changes and devices: None. Lungs and pleura: Mild chronic interstitial prominence. No focal consolidation. No pleural effusions or pneumothorax. Mediastinum: Mediastinal contours appear normal. Heart size is normal. Bones and chest wall: No suspicious bony lesions. Overlying soft tissues appear unremarkable. IMPRESSION: No acute cardiopulmonary disease. Dictated by: Luann Bradshaw M.D. on 12/21/2022 at 16:45 Approved by: Luann Bradshaw M.D. on 12/21/2022 at 16:47
[2022-12-21 15:58] LABS: Add Manual Diff / Slide Review NO; Basophils Absolute Auto 100 /uL (0-100); Basophils Percent Auto 0.8 % (0-2); Eosinophils Absolute Auto 200 /uL (0-450); Eosinophils Percent Auto 2.1 % (2-4); Hematocrit 41.3 % (36-46); Hemoglobin 13.3 g/dL (12.0-16.0); Lymphocytes Absolute Auto 3200 /uL (1100-4500); Lymphocytes Percent Auto 26.9 % (25-40); Mean Corpuscular HGB Conc 32.3 % (30-36); Mean Corpuscular Hemoglobin 23.9 PG (26-34); Monocytes Absolute Auto 1100 /uL (0-900); Neutrophils Absolute Auto 7200 /uL (1500-7000); Neutrophils Percent Auto 61.2 % (50-75); Platelet Count 275 X10^3/uL (150-400); Red Blood Cell Count 5.58 X10^6/uL (4.0-5.2); Red Cell Distribution Width 20.9 % (11.6-14.8); White Blood Cell Count 11.7 X10^3/uL (4.5-11.0)
[2022-12-21 16:02] LABS: Prothrombin Time 11.8 SECONDS (10.1-12.7)
[2022-12-21 16:04] LABS: Alanine Aminotransferase 11 IU/L (<35); Albumin 3.8 g/dL (3.5-5.0); Albumin Globulin Ratio 1.3 (1.0-2.8); Alkaline Phosphatase 58 U/L (38-126); Aspartate Aminotransferase 23 IU/L (14-36); BUN Creatinine Ratio 18.8 (6-22); Bilirubin Total 0.4 mg/dL (0.2-1.3); Blood Urea Nitrogen 22 mg/dL (7-17); Calcium 8.7 mg/dL (8.4-10.2); Carbon Dioxide 30 mmol/L (22-32); Chloride 99 mmol/L (98-107); Estimated Glomerular Filt Rate 46 mL/min (>60); Glucose 156 mg/dL (80-110); HEMOLYSIS 41 (0-50); Potassium 3.8 mmol/L (3.4-5.1); Sodium 136 mmol/L (137-145); Total Protein 6.8 g/dL (6.3-8.2)
[2022-12-21 16:05] LABS: Lactate (Lactic Acid) 2.3 mmol/L (0.7-2.1)
[2022-12-21 16:10] LABS: Anisocytosis 1+
[2022-12-21 16:16] LABS: NT-proBNP (BNP-Adult 18+) 833 pg/mL (<450); Troponin I 0.029 ng/mL (0.01-0.034)
[2022-12-21 17:45] LABS: Reflexed Lactate in 2 Hours Y
--- NOTE | 2022-12-21 19:26 | ED.SOB ---
HPI - SOB/Dyspnea General Chief Complaint: Shortness of Breath/Dyspnea Stated Complaint: weakness Time Seen by Provider: 12/21/22 18:00 Source: patient Mode of arrival: Ambulatory Limitations: no limitations History of Present Illness HPI Narrative: Patient is a 87-year-old female history of congestive heart failure, coronary artery disease with 6 stents on Ranexa, hypertension dyslipidemia diabetes anxiety chronically on 2-3 L of oxygen presenting today with increasing shortness of breath. She was seen evaluated here December 13 for something similar. She was diagnosed with bronchitis and pleurisy she was put on Medrol Dosepak which she reports made her very angry and Tessalon Perles. She reports that she is coughing up some green stuff however she does continue to be significantly short of breath with exertion and even having some conversational dyspnea. She is not needed to go up on her oxygen. She would a CT scan done last week without any contrast which did not show any abnormality. She has chronic ongoing orthopnea she is not laid flat for years however the dyspnea with exertion has gotten worse it is not really getting any better. She denies any significant chest pain, or fever. Related Data Home Medications Medication Instructions Recorded Confirmed aspirin 81 mg tablet,delayed 81 mg PO DAILY ##0 05/14/17 03/06/21 release nitroglycerin 0.4 mg sublingual 1 tab sublingual [id number] PRN Chest 11/18/18 03/06/21 tablet Pain rosuvastatin 40 mg tablet 40 mg PO QPM 11/18/18 03/06/21 ranolazine 500 mg tablet,extended 500 mg PO BID 02/09/20 03/06/21 release,12 hr escitalopram oxalate 20 mg tablet 20 mg PO DAILY 03/06/21 03/06/21 pantoprazole 40 mg tablet,delayed 40 mg PO DAILY 03/06/21 03/06/21 release alprazolam 0.5 mg tablet 0.5 mg PO Q6HR anxiety 03/10/21 03/10/21 Previous Rx's Medication Instructions Recorded metoprolol tartrate 50 mg tablet 50 mg PO TID #60 tabs 03/11/21 oxycodone-acetaminophen 5 mg-325 1 tab PO Q6H PRN pain #14 tabs 06/14/21 mg tablet prednisone 5 mg tablet 5 mg PO DAILY #20 tabs 06/14/21 prednisone 5 mg tablet 5 mg PO DAILY #20 tabs 06/14/21 prednisone 5 mg tablet 5 mg PO DAILY #20 tabs 06/14/21 furosemide 40 mg tablet 40 mg PO Q OTHER DAY #30 tabs 04/27/22 oxycodone-acetaminophen 5 mg-325 1 tab PO Q6H PRN pain #20 tabs 04/27/22 mg tablet furosemide 20 mg tablet 20 mg PO DAILY #30 tabs 07/01/22 spironolactone 25 mg tablet 25 mg PO DAILY #30 tabs 07/01/22 benzonatate 100 mg capsule 100 mg PO TID PRN cough #20 caps 12/13/22 methylprednisolone 4 mg tablets in See Rx Instructions PO .COMPLEX 12/13/22 a dose pack (Medrol (Bryon)) #21 ea Allergies Allergy/AdvReac Type Severity Reaction Status Date / Time ibuprofen [IBUPROFEN] Allergy Severe Rash Verified 12/13/22 10:27 Iodinated Contrast Media Allergy Severe Unconscious Verified 12/13/22 10:27 [IODINATED CONTRAST- ORAL AND IV DYE] morphine [MORPHINE] Allergy Severe Rash Verified 12/13/22 10:27 naproxen [From ALEVE] Allergy Severe Rash Verified 12/13/22 10:27 telmisartan [TELMISARTAN] Allergy Severe Rash Verified 12/13/22 10:27 Review of Systems Review of Systems ROS Unobtainable: All systems reviewed & are unremarkable except as noted in HPI and below Patient History Medical History (Updated 12/22/22 @ 00:44 by Zarina Gu DO) Cardiac arrest Chest pain Coronary artery disease Diastolic heart failure Hyperlipidemia Hypertension Left hamstring muscle strain NSTEMI (non-ST elevated myocardial infarction) Skin cancer UTI (urinary tract infection) Surgical History H/O right heart catheterization History of appendectomy History of breast implant removal History of breast surgery History of cholecystectomy History of coronary artery stent placement History of total abdominal hysterectomy Family History Father Hypertension Diabetes mellitus Mother Hypertension AL (myocardial infarction) Sister AL (myocardial infarction) S/P CABG x 4 Social History household members: children Smoking Status: Never smoker Smoking Status: Never smoker alcohol intake frequency: holidays/special occasions only Substance Use Type: does not use Exam Initial Vital Signs Initial Vital Signs: Vital Signs Temperature 98 F 12/21/22 15:12 Pulse Rate 63 12/21/22 15:12 Respiratory Rate 22 12/21/22 15:12 Blood Pressure 119/58 L 12/21/22 15:12 Pulse Oximetry 98 12/21/22 15:12 Oxygen Delivery Method Nasal Cannula 12/21/22 15:12 Oxygen Flow Rate 3 12/21/22 15:12 GENERAL: Alert pleasant 87-year-old female appears comfortable HEENT: Head atraumatic,EOMI, pupils reactive, face symmetric, moist mucous membranes CARDIOVASCULAR: Regular rate and rhythm without murmurs, rubs or gallops. RESPIRATORY: Breath sounds equal bilaterally, no wheezes rales or rhonchi. No obvious respiratory distress able to speak in full sentences ABDOMEN: Soft, nontender. Normoactive bowel sounds all 4 quadrants. No guarding or rebound. EXTREMITIES: Normal range of motion, no clubbing or edema. Neurovascularly intact NEUROLOGICAL: Alert and oriented x4.Normal gait and speech. SKIN: Warm, dry, no laceration, no petechiae, no rashes or lesions. Course Orders Ordered: ED Orders 12/21/22 21:23 Urine Microscopic Stat 12/21/22 22:37 CT angio chest PE protocol Stat Discontinued Medications Albuterol/Ipratropium (Albuterol/Ipratropium 3 Ml Ampul) 3 ml INH NOW ONE Stop: 12/21/22 22:38 Last Admin: 12/21/22 22:42 Dose: 3 ml Documented By: Diphenhydramine HCl (Diphenhydramine 50 Mg/Ml Vial) 25 mg IV NOW ONE Stop: 12/21/22 22:38 Last Admin: 12/21/22 22:44 Dose: 25 mg Documented By: BAYLEE Methylprednisolone (Methylprednisolone 125 Mg/2 Ml Vial) 125 mg IV NOW ONE Stop: 12/21/22 22:38 Last Admin: 12/21/22 22:42 Dose: 125 mg Documented By: OSCAR Vital Signs Vital signs: Vital Signs - 8 hr 12/21/22 20:45 12/21/22 20:45 12/21/22 21:00 Pulse Rate 65 65 Blood Pressure 127/57 L Pulse Oximetry 97 97 Oxygen Delivery Method 12/21/22 21:01 12/21/22 21:01 12/21/22 21:15 Pulse Rate 64 68 Blood Pressure 128/58 L Pulse Oximetry 97 97 Oxygen Delivery Method 12/21/22 21:15 12/21/22 21:30 12/21/22 21:32 Pulse Rate 80 Blood Pressure 145/64 H 182/77 H Pulse Oximetry 96 Oxygen Delivery Method 12/21/22 21:32 12/21/22 21:47 12/21/22 21:47 Pulse Rate 73 69 Blood Pressure 143/63 H Pulse Oximetry 99 99 Oxygen Delivery Method 12/21/22 22:00 12/21/22 22:00 12/21/22 22:15 Pulse Rate 67 Blood Pressure 141/63 H 142/58 H Pulse Oximetry 98 Oxygen Delivery Method 12/21/22 22:15 12/21/22 22:30 12/21/22 22:31 Pulse Rate 65 65 Blood Pressure 142/65 H Pulse Oximetry 98 98 Oxygen Delivery Method 12/21/22 22:31 12/21/22 22:46 12/21/22 22:46 Pulse Rate 65 67 Blood Pressure 155/67 H Pulse Oximetry 98 99 Oxygen Delivery Method 12/21/22 23:15 12/21/22 23:30 12/22/22 00:00 Pulse Rate 74 71 80 Blood Pressure Pulse Oximetry 98 94 96 Oxygen Delivery Method Room Air Room Air Room Air 12/22/22 00:23 12/22/22 00:23 12/22/22 00:30 Pulse Rate 77 Blood Pressure 149/68 H 125/62 Pulse Oximetry 97 Oxygen Delivery Method Room Air 12/22/22 00:30 Pulse Rate 77 Blood Pressure Pulse Oximetry 97 Oxygen Delivery Method Room Air MDM - SOB/Dyspnea Lab Data 12/21/22 15:39 12/21/22 15:39 Labs: Lab Results 12/21/22 12/21/22 12/21/22 Range/Units 15:39 15:39 15:39 WBC 11.7 H (4.5-11.0) X10^3/uL RBC 5.58 H (4.0-5.2) X10^6/uL Hgb 13.3 (12.0-16.0) g/dL Hct 41.3 (36-46) % MCV 74.0 L (80-100) fL MCH 23.9 L (26-34) PG MCHC 32.3 (30-36) % RDW 20.9 H (11.6-14.8) % Plt Count 275 (150-400) X10^3/uL Neut % (Auto) 61.2 (50-75) % Lymph % (Auto) 26.9 (25-40) % [place] % (Auto) 9.0 (3-14) % Eos % (Auto) 2.1 (2-4) % Baso % (Auto) 0.8 (0-2) % Neut # (Auto) 7200 H (4056-2859) /uL Lymph # (Auto) 3200 (5829-1270) /uL [place] # (Auto) 1100 H (0-900) /uL Eos # (Auto) 200 (0-450) /uL Baso # (Auto) 100 (0-100) /uL RBC Morphology See below Anisocytosis 1+ H PT 11.8 (10.1-12.7) SECONDS INR 1.0 (0.9-1.3) Sodium 136 L (137-145) mmol/L Potassium 3.8 (3.4-5.1) mmol/L Chloride 99 (98-107) mmol/L Carbon Dioxide 30 (22-32) mmol/L BUN 22 H (7-17) mg/dL Creatinine 1.17 H (0.52-1.04) mg/dL Estimated GFR 46 L (>60) mL/min BUN/Creatinine Ratio 18.8 (6-22) Glucose 156 H (80-110) mg/dL Lactate (0.7-2.1) mmol/L Calcium 8.7 (8.4-10.2) mg/dL Total Bilirubin 0.4 (0.2-1.3) mg/dL AST 23 (14-36) IU/L ALT 11 (<35) IU/L Alkaline Phosphatase 58 (38-126) U/L Total Creatine Kinase (30-135) U/L Troponin I 0.029 (0.01-0.034) ng/mL NT-Pro-B Natriuret Pep 833 H (<450) pg/mL Total Protein 6.8 (6.3-8.2) g/dL Albumin 3.8 (3.5-5.0) g/dL Globulin 3.0 (1.7-4.1) g/dL Albumin/Globulin Ratio 1.3 (1.0-2.8) Urine RBC (0-5/HPF) Urine WBC (0-5/HPF) Ur Squamous Epith Cells (0-5/HPF) Urine Bacteria (None) Urine Mucus (Negative) Ur Culture Indicated? 12/21/22 12/21/22 12/21/22 Range/Units 15:39 19:14 19:15 WBC (4.5-11.0) X10^3/uL RBC (4.0-5.2) X10^6/uL Hgb (12.0-16.0) g/dL Hct (36-46) % MCV (80-100) fL MCH (26-34) PG MCHC (30-36) % RDW (11.6-14.8) % Plt Count (150-400) X10^3/uL Neut % (Auto) (50-75) % Lymph % (Auto) (25-40) % [place] % (Auto) (3-14) % Eos % (Auto) (2-4) % Baso % (Auto) (0-2) % Neut # (Auto) (4901-9913) /uL Lymph # (Auto) (6782-6893) /uL [place] # (Auto) (0-900) /uL Eos # (Auto) (0-450) /uL Baso # (Auto) (0-100) /uL RBC Morphology Anisocytosis PT (10.1-12.7) SECONDS INR (0.9-1.3) Sodium (137-145) mmol/L Potassium (3.4-5.1) mmol/L Chloride (98-107) mmol/L Carbon Dioxide (22-32) mmol/L BUN (7-17) mg/dL Creatinine (0.52-1.04) mg/dL Estimated GFR (>60) mL/min BUN/Creatinine Ratio (6-22) Glucose (80-110) mg/dL Lactate 2.3 H 1.7 (0.7-2.1) mmol/L Calcium (8.4-10.2) mg/dL Total Bilirubin (0.2-1.3) mg/dL AST (14-36) IU/L ALT (<35) IU/L Alkaline Phosphatase (38-126) U/L Total Creatine Kinase 21 L (30-135) U/L Troponin I 0.031 (0.01-0.034) ng/mL NT-Pro-B Natriuret Pep (<450) pg/mL Total Protein (6.3-8.2) g/dL Albumin (3.5-5.0) g/dL Globulin (1.7-4.1) g/dL Albumin/Globulin Ratio (1.0-2.8) Urine RBC (0-5/HPF) Urine WBC (0-5/HPF) Ur Squamous Epith Cells (0-5/HPF) Urine Bacteria (None) Urine Mucus (Negative) Ur Culture Indicated? 12/21/22 Range/Units 21:23 WBC (4.5-11.0) X10^3/uL RBC (4.0-5.2) X10^6/uL Hgb (12.0-16.0) g/dL Hct (36-46) % MCV (80-100) fL MCH (26-34) PG MCHC (30-36) % RDW (11.6-14.8) % Plt Count (150-400) X10^3/uL Neut % (Auto) (50-75) % Lymph % (Auto) (25-40) % [place] % (Auto) (3-14) % Eos % (Auto) (2-4) % Baso % (Auto) (0-2) % Neut # (Auto) (8168-0263) /uL Lymph # (Auto) (0903-5480) /uL [place] # (Auto) (0-900) /uL Eos # (Auto) (0-450) /uL Baso # (Auto) (0-100) /uL RBC Morphology Anisocytosis PT (10.1-12.7) SECONDS INR (0.9-1.3) Sodium (137-145) mmol/L Potassium (3.4-5.1) mmol/L Chloride (98-107) mmol/L Carbon Dioxide (22-32) mmol/L BUN (7-17) mg/dL Creatinine (0.52-1.04) mg/dL Estimated GFR (>60) mL/min BUN/Creatinine Ratio (6-22) Glucose (80-110) mg/dL Lactate (0.7-2.1) mmol/L Calcium (8.4-10.2) mg/dL Total Bilirubin (0.2-1.3) mg/dL AST (14-36) IU/L ALT (<35) IU/L Alkaline Phosphatase (38-126) U/L Total Creatine Kinase (30-135) U/L Troponin I (0.01-0.034) ng/mL NT-Pro-B Natriuret Pep (<450) pg/mL Total Protein (6.3-8.2) g/dL Albumin (3.5-5.0) g/dL Globulin (1.7-4.1) g/dL Albumin/Globulin Ratio (1.0-2.8) Urine RBC None seen (0-5/HPF) Urine WBC None seen (0-5/HPF) Ur Squamous Epith Cells None seen (0-5/HPF) Urine Bacteria None seen (None) Urine Mucus 1+ H (Negative) Ur Culture Indicated? Cult not indicated Urine Dip Bedside Urine Glucose 1000 mg/dl Bedside Urine Bilirubin - Negative Bedside Urine Ketone - Negative Urine Specific [place] 1.025 Bedside Urine Occult Blood - Negative Bedside Urine pH 5.5 Bedside Urine Protein + 30 Bedside Urine Urobilinogen - Negative Bedside Urine Nitrite - Negative Bedside Urine Leukocytes - Negative Esterase Imaging Data Chest x-ray: Radiologist's Impression: PROCEDURE:? XR CHEST 1V ? INDICATIONS:? Shortness of breath ? TECHNIQUE:? One view of the chest was acquired.? ? COMPARISON:? [facility], CT, CT CHEST WO CON, 12/13/2022, 13:16.? [facility], CR, XR CHEST 1V, 09/15/2022, 20:20.? [facility], CR, XR CHEST 1V, 12/13/2022, 10:23. ? FINDINGS:? ? Surgical changes and devices:? None.? ? Lungs and pleura:? Mild chronic interstitial prominence.? No focal consolidation.? No pleural effusions or pneumothorax.? ? Mediastinum:? Mediastinal contours appear normal.? Heart size is normal.? ? Bones and chest wall:? No suspicious bony lesions.? Overlying soft tissues appear unremarkable.? ? IMPRESSION:? No acute cardiopulmonary disease. ? ? Dictated by: Luann Bradshaw M.D. on 12/21/2022 at 16:45 ? ? CT scan - chest: Radiologist's Impression: PROCEDURE:? CT ANGIO CHEST PE PROTOCOL ? INDICATIONS:? hypoxia ? TECHNIQUE:? After the administration of intravenous contrast, 2 mm thick sections acquired from the pulmonary apices to the posterior costophrenic angles.? 3-dimensional maximum intensity projection (MIP) coronal and sagittal reformats were then acquired through the thorax.? For radiation dose reduction, the following was used:? automated exposure control, adjustment of mA and/or kV according to patient size.? ? COMPARISON:? [facility], CT, CT ANGIO CHEST PE PROTOCOL, 04/26/2022, 8:59. ? FINDINGS:? Image quality:? There is motion artifact as well as beam hardening artifact from patient's upper extremities limiting evaluation.? ? Pulmonary arteries:? Pulmonary arteries demonstrate no intraluminal filling defects to suggest central pulmonary embolism.? Evaluation of distal subsegmental pulmonary arteries is limited by motion artifact.? ? Lower Neck: No lymphadenopathy by size criteria. Thyroid:? Visualized thyroid demonstrates no discrete nodules. Axillae: No lymphadenopathy by size criteria. Chest Wall:? Unremarkable.? Bones: Visualized osseous structures demonstrate no suspicious lesions. ? Lungs and Airways:? No acute consolidation.? There is peripheral subpleural reticulation suggestive of chronic interstitial lung disease.? Bilateral indistinct ground-glass opacities with mild septal thickening are demonstrated as well as mild peripheral bronchial wall thickening.? The findings are suggestive of pulmonary edema.? The trachea and central airways are patent. Pleura: No pneumothorax or pleural effusions.? ? Heart: Heart size is enlarged.? No pericardial effusion. Thoracic Vessels: The thoracic aorta is normal in size.? Mediastinum and Usha: No lymphadenopathy by size criteria. Esophagus: No wall thickening.? There is a small hiatal hernia. ? Abdomen:? Visualized upper abdominal solid organs appear normal in the early arterial phase of enhancement.? ? IMPRESSION:? ? 1. No evidence of central pulmonary embolism.? Evaluation of distal subsegmental pulmonary arteries limited by motion artifact. ? 2. Peripheral subpleural reticulation suggestive of nonspecific chronic interstitial lung disease. ? 3. Cardiomegaly with mild pulmonary edema suggestive of congestive heart failure.? ? ? Dictated by: Tony Treviño M.D. on 12/22/2022 at 0:22 ? ? Approved by: Tony Treviño M.D. on 12/22/2022 at 0:27 ? ECG Data Interpretation: EKG 1. Normal sinus rhythm rate 59 [place] interval 180 QRS 90 QTC 477 Q-waves noted he lead 2 AVF Q-waves in lead 2 are new she previously had Q-waves in 3 and AVF which are still present no ST elevation or depression EKG 2. Sinus rhythm rate 67 no changes Q-wave is resolved in lead 2 persistent in [address] changes MDM Narrative Medical decision making narrative: 87-year-old female history of multiple comorbidities including congestive heart failure chronic hypoxia, diagnosed with bronchitis and pleurisy previously presents today with increasing shortness of breath. Initially not really requiring any more oxygen she is no obvious conversational dyspnea. BNP is in the 800 she is 2- troponins. BNP 593. She does take Lasix daily. CT angio was done she is not on any anticoagulation no evidence of pulmonary embolism but there is some pulmonary edema. I suspect this is more mild congestive heart failure rather than other cause. She does not have a pneumonia no need for antibiotics. She is not in acute distress at this time I think reasonable to increase her Lasix tomorrow. Time really does not meet any admission criteria seems reasonable to be discharged home. Patient and daughter are agreeable to this. Discharge Plan Departure Patient Disposition: Home Clinical Impression: Congestive heart failure Instructions: DI for Heart Failure Activity Restrictions/Additional Instructions: *You have been diagnosed with congestive heart failure *What to do: At this time you do have some small amount of fluid on your lungs. No evidence of pneumonia no need for antibiotics *Continue to take medications as directed Increase furosemide to twice a day for 2-3 days then resume to once daily *Follow up with your primary care provider in 2-3 days or call [phone] *Return to ER if you should have increasing chest pain shortness of breath weakness confusion or any new, worsening or concerning symptoms Prescriptions: No Action aspirin 81 MG tablet,delayed release (DR/EC) 81 mg PO DAILY Qty: 0 ranolazine 500 mg tablet extended release 12 hr 500 mg PO BID pantoprazole 40 mg Tablet,Delayed Release (Dr/Ec) 40 mg PO DAILY escitalopram oxalate 20 mg Tablet 20 mg PO DAILY alprazolam 0.5 mg tablet 0.5 mg PO Q6HR metoprolol tartrate 50 mg Tablet 50 mg PO TID Qty: 60 0RF furosemide 40 mg tablet 40 mg PO Q OTHER DAY Qty: 30 0RF oxycodone-acetaminophen 5-325 mg tablet 1 tab PO Q6H PRN (Reason: pain) Qty: 20 0RF benzonatate 100 mg capsule 100 mg PO TID PRN (Reason: cough) Qty: 20 0RF methylprednisolone [Medrol (Bryon)] 4 mg tablets,dose pack See Rx Instructions .ROUTE .COMPLEX Qty: 21 0RF Rx Instructions: orally per package directions nitroglycerin 0.4 mg tablet, sublingual 1 tab sublingual [id number] PRN (Reason: Chest Pain) Patient Comments: take it when needed, last dose unknown rosuvastatin 40 mg tablet 40 mg PO QPM prednisone 5 mg tablet 5 mg PO DAILY Qty: 20 0RF oxycodone-acetaminophen 5-325 mg tablet 1 tab PO Q6H PRN (Reason: pain) Qty: 14 0RF prednisone 5 mg tablet 5 mg PO DAILY Qty: 20 0RF prednisone 5 mg tablet 5 mg PO DAILY Qty: 20 0RF spironolactone 25 mg tablet 25 mg PO DAILY Qty: 30 0RF furosemide 20 mg tablet 20 mg PO DAILY Qty: 30 0RF Referrals: Zoe Bass PA-C [Primary Care Provider] - Stand Alone Forms: Patient Portal/API
[2022-12-21 19:37] LABS: Lactate 2HR (Lactic Acid Rflx) 1.7 mmol/L (0.7-2.1)
[2022-12-21 21:49] LABS: Creatine Kinase 21 U/L (30-135)
[2022-12-21 22:02] LABS: Troponin I 0.031 ng/mL (0.01-0.034)
--- NOTE | 2022-12-21 22:37 | DI.CT.S_ITS ---
PROCEDURE: CT ANGIO CHEST PE PROTOCOL INDICATIONS: hypoxia TECHNIQUE: After the administration of intravenous contrast, 2 mm thick sections acquired from the pulmonary apices to the posterior costophrenic angles. 3-dimensional maximum intensity projection (MIP) coronal and sagittal reformats were then acquired through the thorax. For radiation dose reduction, the following was used: automated exposure control, adjustment of mA and/or kV according to patient size. COMPARISON: [facility], CT, CT ANGIO CHEST PE PROTOCOL, 04/26/2022, 8:59. FINDINGS: Image quality: There is motion artifact as well as beam hardening artifact from patient's upper extremities limiting evaluation. Pulmonary arteries: Pulmonary arteries demonstrate no intraluminal filling defects to suggest central pulmonary embolism. Evaluation of distal subsegmental pulmonary arteries is limited by motion artifact. Lower Neck: No lymphadenopathy by size criteria. Thyroid: Visualized thyroid demonstrates no discrete nodules. Axillae: No lymphadenopathy by size criteria. Chest Wall: Unremarkable. Bones: Visualized osseous structures demonstrate no suspicious lesions. Lungs and Airways: No acute consolidation. There is peripheral subpleural reticulation suggestive of chronic interstitial lung disease. Bilateral indistinct ground-glass opacities with mild septal thickening are demonstrated as well as mild peripheral bronchial wall thickening. The findings are suggestive of pulmonary edema. The trachea and central airways are patent. Pleura: No pneumothorax or pleural effusions. Heart: Heart size is enlarged. No pericardial effusion. Thoracic Vessels: The thoracic aorta is normal in size. Mediastinum and Usha: No lymphadenopathy by size criteria. Esophagus: No wall thickening. There is a small hiatal hernia. Abdomen: Visualized upper abdominal solid organs appear normal in the early arterial phase of enhancement. IMPRESSION: 1. No evidence of central pulmonary embolism. Evaluation of distal subsegmental pulmonary arteries limited by motion artifact. 2. Peripheral subpleural reticulation suggestive of nonspecific chronic interstitial lung disease. 3. Cardiomegaly with mild pulmonary edema suggestive of congestive heart failure. Dictated by: Tony Treviño M.D. on 12/22/2022 at 0:22 Approved by: Tony Treviño M.D. on 12/22/2022 at 0:27
[2022-12-21 22:41] LABS: Bacteria Urine None Seen; Culture Indicated Urine Cult Not Indicated; Mucus Urine 1+ (Negative); RBC Urine None Seen (0-5/HPF); Squamous Epithelial Cell Urine None Seen (0-5/HPF); WBC Urine None Seen (0-5/HPF)
[2022-12-21] MEDS: ALBUTEROL/IPRATROPIUM 3 ML AMPUL INH (22:42)
[2022-12-21] MEDS: methylPREDNISolone 125 MG/2 ML VIAL IV (22:42)
[2022-12-21] MEDS: diphenhydrAMINE 50 MG/ML VIAL 25 MG IV (22:44)
[2022-12-22] VITALS: PULSE 80; O2SAT 96
[2022-12-22 00:23] VITALS: BP 149/68; PULSE 77; O2SAT 97
[2022-12-22 00:30] VITALS: BP 125/62; PULSE 77; O2SAT 97
== END 2022-12-22 00:52 | disposition home or self-care (01) ==
PROVIDERS: Emergency Medicine; Emergency Provider Emergency Medicine; Family Provider Internal Medicine; PCP Physician Assistant Medical
DX: I50.9 Heart failure, unspecified (principal); R09.02 Hypoxemia
CPT/HCPCS: 36415; 71045; 71275; 80053; 81003; 81015; 82550; 83605; 83880; 84484; 85025; 85610; 93005; 93010; 96374; 96375; 99284; 99285; J1200; J2930; Q9967

== ENCOUNTER 2023-01-11 11:28 | Inpatient (IN) | payer MEDICARE, OTHER, SELFPAY ==
[2022-04-26 00:48] VITALS: BMI 37.8
[2023-01-11] VITALS (15 sets, daily range): BP systolic 112–185; BP diastolic 40–108; PULSE 58–78; RESP 10–26; TEMP 36.2–37.1; O2SAT 85–98; BMI 35.6
--- NOTE | 2023-01-11 12:01 | DI.RAD.S_ITS ---
PROCEDURE: XR CHEST 1V INDICATIONS: chest pain TECHNIQUE: One view of the chest was acquired. COMPARISON: [facility], CR, XR CHEST 1V, 12/21/2022, 15:36. FINDINGS: Surgical changes and devices: Coronary artery stent. Lungs and pleura: Lungs are clear. No pleural effusions or pneumothorax. Mediastinum: Mediastinal contours appear normal. Mild cardiomegaly Bones and chest wall: No suspicious bony lesions. Overlying soft tissues appear unremarkable. IMPRESSION: Mild cardiomegaly, coronary artery stent. No evidence acute pulmonary process. Dictated by: Carlito Pugh M.D. on 01/11/2023 at 12:22 Approved by: Carlito Pugh M.D. on 01/11/2023 at 12:23
--- NOTE | 2023-01-11 12:35 | ED.CHESTPAIN ---
HPI - Chest Pain General Chief Complaint: Chest Pain Stated Complaint: headache/heart goingcha-chaSOB/pain down in arms Time Seen by Provider: 01/11/23 12:09 Source: patient Mode of arrival: Ambulatory Limitations: no limitations History of Present Illness HPI narrative: 87-year-old female. History of heart failure. Was seen here in the emergency department several weeks ago for heart failure symptoms. She had an increase in her Lasix. She states she takes 1/2 tablet of a 20 mg Lasix on a daily basis and she was increased to 1 tablet a day. She only did that for 4 days. Since that time she is noticed that she is become more short of breath. Has lower extremity swelling. Feels like her hands are swelling and she does have pressure on her chest. She is on oxygen at home at baseline 2 L. This has happened after she would a diagnosis of COVID. She is had increase this to 3 L occasionally. She wears a CPAP at night. Related Data Home Medications Medication Instructions Recorded Confirmed aspirin 81 mg tablet,delayed 81 mg PO DAILY ##0 05/14/17 03/06/21 release nitroglycerin 0.4 mg sublingual 1 tab sublingual [id number] PRN Chest 11/18/18 03/06/21 tablet Pain rosuvastatin 40 mg tablet 40 mg PO QPM 11/18/18 03/06/21 ranolazine 500 mg tablet,extended 500 mg PO BID 02/09/20 03/06/21 release,12 hr escitalopram oxalate 20 mg tablet 20 mg PO DAILY 03/06/21 03/06/21 pantoprazole 40 mg tablet,delayed 40 mg PO DAILY 03/06/21 03/06/21 release alprazolam 0.5 mg tablet 0.5 mg PO Q6HR anxiety 03/10/21 03/10/21 Previous Rx's Medication Instructions Recorded metoprolol tartrate 50 mg tablet 50 mg PO TID #60 tabs 03/11/21 oxycodone-acetaminophen 5 mg-325 1 tab PO Q6H PRN pain #14 tabs 06/14/21 mg tablet prednisone 5 mg tablet 5 mg PO DAILY #20 tabs 06/14/21 prednisone 5 mg tablet 5 mg PO DAILY #20 tabs 06/14/21 prednisone 5 mg tablet 5 mg PO DAILY #20 tabs 01/31/22 furosemide 40 mg tablet 40 mg PO Q OTHER DAY #30 tabs 04/27/22 oxycodone-acetaminophen 5 mg-325 1 tab PO Q6H PRN pain #20 tabs 04/27/22 mg tablet furosemide 20 mg tablet 20 mg PO DAILY #30 tabs 07/01/22 spironolactone 25 mg tablet 25 mg PO DAILY #30 tabs 07/01/22 benzonatate 100 mg capsule 100 mg PO TID PRN cough #20 caps 12/13/22 methylprednisolone 4 mg tablets in See Rx Instructions PO .COMPLEX 12/13/22 a dose pack (Medrol (Bryon)) #21 ea Allergies Allergy/AdvReac Type Severity Reaction Status Date / Time ibuprofen [IBUPROFEN] Allergy Severe Rash Verified 12/13/22 10:27 Iodinated Contrast Media Allergy Severe Unconscious Verified 12/13/22 10:27 [IODINATED CONTRAST- ORAL AND IV DYE] morphine [MORPHINE] Allergy Severe Rash Verified 12/13/22 10:27 naproxen [From ALEVE] Allergy Severe Rash Verified 12/13/22 10:27 telmisartan [TELMISARTAN] Allergy Severe Rash Verified 12/13/22 10:27 Review of Systems Constitutional Constitutional: Reports system reviewed and no additional complaints, except as documented Cardiovascular Cardiovascular: Reports system reviewed and no additional complaints, except as documented Respiratory Respiratory: Reports system reviewed and no additional complaints, except as documented Gastrointestinal Gastrointestinal: Reports system reviewed and no additional complaints, except as documented Integumentary/Breasts Skin/Breast: Reports system reviewed and no additional complaints, except as documented Neurologic Neurologic: Reports system reviewed and no additional complaints, except as documented Hematologic/Lymphatic On Anticoagulants: No Patient History Medical History (Updated 01/11/23 @ 15:00 by Valerio East DO) Cardiac arrest Chest pain Coronary artery disease Diastolic heart failure Hyperlipidemia Hypertension Left hamstring muscle strain NSTEMI (non-ST elevated myocardial infarction) Skin cancer UTI (urinary tract infection) Surgical History H/O right heart catheterization History of appendectomy History of breast implant removal History of breast surgery History of cholecystectomy History of coronary artery stent placement History of total abdominal hysterectomy Family History Father Hypertension Diabetes mellitus Mother Hypertension CO (myocardial infarction) Sister CO (myocardial infarction) S/P CABG x 4 Social History household members: children Smoking Status: Never smoker Smoking Status: Never smoker alcohol intake frequency: holidays/special occasions only Substance Use Type: does not use Exam Initial Vital Signs Initial Vital Signs: Vital Signs Temperature 98.8 F 01/11/23 11:40 Pulse Rate 58 L 01/11/23 11:40 Respiratory Rate 16 01/11/23 11:40 Blood Pressure 138/77 01/11/23 11:40 Pulse Oximetry 98 01/11/23 11:40 Oxygen Delivery Method Nasal Cannula 01/11/23 11:40 Oxygen Flow Rate 3 01/11/23 11:40 HENMT Head: normal to inspection and normocephalic Resp Effort & Inspection: not labored, no respiratory distress and tachypneic Cardio Rate: regular rate Rhythm: regular rhythm GI Inspection: normal to inspection and non-distended Skin General: no rashes or lesions noted Neuro General: patient alert, patient awake and moves all extremities Extrem General: edema Course Orders Ordered: ED Orders 01/11/23 12:01 XR chest 1V Stat 01/11/23 12:02 EKG-12 Lead Stat 01/11/23 12:55 BNP [NT-proBNP (BNP-Adult 18+)] Stat Complete Blood Count AUTO DIFF Stat Comprehensive Metabolic Panel Stat Lipase Stat Magnesium Stat PTT Partial Thromboplastin Garo Stat Prothrombin Time INR Stat Troponin & CK Cardiac Panel Stat 01/11/23 13:02 COVID19 -Nasal RAPID Stat 01/11/23 14:00 Urine Microscopic Stat Discontinued Medications Aspirin (Aspirin 81 Mg Chew Tab) 324 mg PO NOW ONE Stop: 01/11/23 12:02 Last Admin: 01/11/23 13:19 Dose: Not Given Documented By: GLADYS Furosemide 60 mg/ Sodium (Chloride) 56 mls @ 112 mls/hr IV NOW ONE Stop: 01/11/23 12:36 Last Infusion: 01/11/23 13:57 Dose: 0 mls/hr Documented By: Admin: 01/11/23 13:19 Dose: 112 mls/hr Documented By: GLADYS Vital Signs Vital signs: Vital Signs - 8 hr 01/11/23 11:40 01/11/23 12:40 01/11/23 12:41 Temperature 98.8 F Pulse Rate 58 L 61 Respiratory Rate 16 24 Blood Pressure 138/77 158/72 H Pulse Oximetry 98 98 Oxygen Delivery Method Nasal Cannula Oxygen Flow Rate 3 01/11/23 12:41 01/11/23 13:00 01/11/23 13:00 Temperature Pulse Rate 61 61 Respiratory Rate 10 L 12 Blood Pressure 149/67 H Pulse Oximetry 96 98 Oxygen Delivery Method Oxygen Flow Rate 01/11/23 13:30 01/11/23 13:30 01/11/23 14:00 Temperature Pulse Rate 60 Respiratory Rate 18 Blood Pressure 141/103 H 124/57 L Pulse Oximetry 98 Oxygen Delivery Method Oxygen Flow Rate 01/11/23 14:00 01/11/23 14:30 01/11/23 14:31 Temperature Pulse Rate 61 72 Respiratory Rate 18 20 Blood Pressure 178/77 H Pulse Oximetry 97 96 Oxygen Delivery Method Oxygen Flow Rate 01/11/23 14:31 Temperature Pulse Rate 68 Respiratory Rate 20 Blood Pressure Pulse Oximetry 98 Oxygen Delivery Method Oxygen Flow Rate MDM - Chest Pain Medical Records Data Attestation: I reviewed the patient's medical records. Lab Data Attestation: I reviewed the patient's lab results. 01/11/23 12:55 01/11/23 12:55 Labs: Lab Results 01/11/23 01/11/23 01/11/23 Range/Units 12:55 12:55 12:55 WBC 6.2 (4.5-11.0) X10^3/uL RBC 5.14 (4.0-5.2) X10^6/uL Hgb 12.3 (12.0-16.0) g/dL Hct 37.9 (36-46) % MCV 73.8 L (80-100) fL MCH 24.0 L (26-34) PG MCHC 32.5 (30-36) % RDW 21.0 H (11.6-14.8) % Plt Count 215 (150-400) X10^3/uL Neut % (Auto) 53.9 (50-75) % Lymph % (Auto) 32.9 (25-40) % [place] % (Auto) 10.1 (3-14) % Eos % (Auto) 2.7 (2-4) % Baso % (Auto) 0.4 (0-2) % Neut # (Auto) 3300 (7551-9780) /uL Lymph # (Auto) 2000 (8381-3537) /uL [place] # (Auto) 600 (0-900) /uL Eos # (Auto) 200 (0-450) /uL Baso # (Auto) 0 (0-100) /uL RBC Morphology See below Anisocytosis 2+ H Microcytosis 1+ H PT 12.5 (10.1-12.7) SECONDS INR 1.1 (0.9-1.3) APTT 27 (26-36) SECONDS Sodium 139 (137-145) mmol/L Potassium 3.8 (3.4-5.1) mmol/L Chloride 102 (98-107) mmol/L Carbon Dioxide 29 (22-32) mmol/L BUN 13 (7-17) mg/dL Creatinine 1.20 H (0.52-1.04) mg/dL Estimated GFR 44 L (>60) mL/min BUN/Creatinine Ratio 10.8 (6-22) Glucose 121 H (80-110) mg/dL Calcium 8.7 (8.4-10.2) mg/dL Magnesium 2.1 (1.6-2.3) mg/dL Total Bilirubin 0.6 (0.2-1.3) mg/dL AST 23 (14-36) IU/L ALT 9 (<35) IU/L Alkaline Phosphatase 60 (38-126) U/L Total Creatine Kinase 30 (30-135) U/L Troponin I 0.021 (0.01-0.034) ng/mL NT-Pro-B Natriuret Pep (<450) pg/mL Total Protein 6.8 (6.3-8.2) g/dL Albumin 3.7 (3.5-5.0) g/dL Globulin 3.1 (1.7-4.1) g/dL Albumin/Globulin Ratio 1.2 (1.0-2.8) Lipase 97 (23-300) U/L Urine RBC (0-5/HPF) Urine WBC (0-5/HPF) Ur Squamous Epith Cells (0-5/HPF) Urine Bacteria (None) Ur Culture Indicated? Micro UA Comment SARS-CoV-2 (PCR) (Negative) 01/11/23 01/11/23 01/11/23 Range/Units 12:55 13:02 14:00 WBC (4.5-11.0) X10^3/uL RBC (4.0-5.2) X10^6/uL Hgb (12.0-16.0) g/dL Hct (36-46) % MCV (80-100) fL MCH (26-34) PG MCHC (30-36) % RDW (11.6-14.8) % Plt Count (150-400) X10^3/uL Neut % (Auto) (50-75) % Lymph % (Auto) (25-40) % [place] % (Auto) (3-14) % Eos % (Auto) (2-4) % Baso % (Auto) (0-2) % Neut # (Auto) (7027-0258) /uL Lymph # (Auto) (5612-4695) /uL [place] # (Auto) (0-900) /uL Eos # (Auto) (0-450) /uL Baso # (Auto) (0-100) /uL RBC Morphology Anisocytosis Microcytosis PT (10.1-12.7) SECONDS INR (0.9-1.3) APTT (26-36) SECONDS Sodium (137-145) mmol/L Potassium (3.4-5.1) mmol/L Chloride (98-107) mmol/L Carbon Dioxide (22-32) mmol/L BUN (7-17) mg/dL Creatinine (0.52-1.04) mg/dL Estimated GFR (>60) mL/min BUN/Creatinine Ratio (6-22) Glucose (80-110) mg/dL Calcium (8.4-10.2) mg/dL Magnesium (1.6-2.3) mg/dL Total Bilirubin (0.2-1.3) mg/dL AST (14-36) IU/L ALT (<35) IU/L Alkaline Phosphatase (38-126) U/L Total Creatine Kinase (30-135) U/L Troponin I (0.01-0.034) ng/mL NT-Pro-B Natriuret Pep 1080 H (<450) pg/mL Total Protein (6.3-8.2) g/dL Albumin (3.5-5.0) g/dL Globulin (1.7-4.1) g/dL Albumin/Globulin Ratio (1.0-2.8) Lipase (23-300) U/L Urine RBC None seen (0-5/HPF) Urine WBC None seen (0-5/HPF) Ur Squamous Epith Cells None seen (0-5/HPF) Urine Bacteria None seen (None) Ur Culture Indicated? Cult not indicated Micro UA Comment Microscopic normal SARS-CoV-2 (PCR) Negative (Negative) Urine Dip Bedside Urine Glucose 1000 mg/dl Bedside Urine Bilirubin - Negative Bedside Urine Ketone - Negative Urine Specific [place] 1.015 Bedside Urine Occult Blood +/- Bedside Urine pH 6.0 Bedside Urine Protein - Negative Bedside Urine Urobilinogen - Negative Bedside Urine Nitrite - Negative Bedside Urine Leukocytes - Negative Esterase Imaging Data Chest x-ray: Radiologist's Impression: Mild cardiomegaly, coronary artery stent, no evidence of acute pulmonary process ECG Data Attestation: I personally reviewed and interpreted this ECG as follows: Interpretation: Sinus bradycardia Ventricular rate of 58 Normal axis QTC [address] T wave changes MDM Narrative Medical decision making narrative: Clinically the patient today is has fluid retention. She does have oxygen at home. Her lungs are clear. She does have lower extremity edema and also hand edema. She was given Lasix. She states she does feel somewhat better. Had a discussion about admission to the hospital versus discharge home. Patient rather be discharged home and increase her Lasix at home. She does have enough of this medication and does not need a refill. We discussed how she should take this medication. She was given return precautions. She expressed understanding and agreement. Discharge Plan Departure Patient Disposition: Home Clinical Impression: CHF (congestive heart failure) Instructions: DI for Heart Failure Activity Restrictions/Additional Instructions: Recommend that you continue to take all of your medications as directed except increase your Lasix to 20 mg a day. You can take this like we discussed. Contact your primary doctor Khanh your web marketing specialist for a follow-up. Return to the emergency department for new or worsening symptoms. Prescriptions: No Action aspirin 81 MG tablet,delayed release (DR/EC) 81 mg PO DAILY Qty: 0 ranolazine 500 mg tablet extended release 12 hr 500 mg PO BID pantoprazole 40 mg Tablet,Delayed Release (Dr/Ec) 40 mg PO DAILY escitalopram oxalate 20 mg Tablet 20 mg PO DAILY alprazolam 0.5 mg tablet 0.5 mg PO Q6HR metoprolol tartrate 50 mg Tablet 50 mg PO TID Qty: 60 0RF furosemide 40 mg tablet 40 mg PO Q OTHER DAY Qty: 30 0RF oxycodone-acetaminophen 5-325 mg tablet 1 tab PO Q6H PRN (Reason: pain) Qty: 20 0RF benzonatate 100 mg capsule 100 mg PO TID PRN (Reason: cough) Qty: 20 0RF methylprednisolone [Medrol (Bryon)] 4 mg tablets,dose pack See Rx Instructions .ROUTE .COMPLEX Qty: 21 0RF Rx Instructions: orally per package directions nitroglycerin 0.4 mg tablet, sublingual 1 tab sublingual [id number] PRN (Reason: Chest Pain) Patient Comments: take it when needed, last dose unknown rosuvastatin 40 mg tablet 40 mg PO QPM prednisone 5 mg tablet 5 mg PO DAILY Qty: 20 0RF oxycodone-acetaminophen 5-325 mg tablet 1 tab PO Q6H PRN (Reason: pain) Qty: 14 0RF prednisone 5 mg tablet 5 mg PO DAILY Qty: 20 0RF prednisone 5 mg tablet 5 mg PO DAILY Qty: 20 0RF spironolactone 25 mg tablet 25 mg PO DAILY Qty: 30 0RF furosemide 20 mg tablet 20 mg PO DAILY Qty: 30 0RF Referrals: Zoe Bass PA-C [Primary Care Provider] - Stand Alone Forms: Patient Portal/API
[2023-01-11 13:13] LABS: Add Manual Diff / Slide Review NO; Basophils Absolute Auto 0 /uL (0-100); Basophils Percent Auto 0.4 % (0-2); Eosinophils Absolute Auto 200 /uL (0-450); Eosinophils Percent Auto 2.7 % (2-4); Hematocrit 37.9 % (36-46); Hemoglobin 12.3 g/dL (12.0-16.0); INR 1.1 (0.9-1.3); Lymphocytes Absolute Auto 2000 /uL (1100-4500); Lymphocytes Percent Auto 32.9 % (25-40); Mean Corpuscular HGB Conc 32.5 % (30-36); Mean Corpuscular Volume 73.8 fL (80-100); Monocytes Absolute Auto 600 /uL (0-900); Monocytes Percent Auto 10.1 % (3-14); Neutrophils Absolute Auto 3300 /uL (1500-7000); Neutrophils Percent Auto 53.9 % (50-75); Platelet Count 215 X10^3/uL (150-400); Prothrombin Time 12.5 SECONDS (10.1-12.7); Red Blood Cell Count 5.14 X10^6/uL (4.0-5.2); White Blood Cell Count 6.2 X10^3/uL (4.5-11.0)
[2023-01-11 13:15] LABS: PTT Partial Thromboplastin Tim 27 SECONDS (26-36)
[2023-01-11 13:18] LABS: Alanine Aminotransferase 9 IU/L (<35); Albumin 3.7 g/dL (3.5-5.0); Albumin Globulin Ratio 1.2 (1.0-2.8); Alkaline Phosphatase 60 U/L (38-126); Aspartate Aminotransferase 23 IU/L (14-36); BUN Creatinine Ratio 10.8 (6-22); Bilirubin Total 0.6 mg/dL (0.2-1.3); Blood Urea Nitrogen 13 mg/dL (7-17); Calcium 8.7 mg/dL (8.4-10.2); Carbon Dioxide 29 mmol/L (22-32); Chloride 102 mmol/L (98-107); Creatine Kinase 30 U/L (30-135); Estimated Glomerular Filt Rate 44 mL/min (>60); Globulin 3.1 g/dL (1.7-4.1); Glucose 121 mg/dL (80-110); HEMOLYSIS < 15 (0-50); Lipase 97 U/L (23-300); Magnesium 2.1 mg/dL (1.6-2.3); Potassium 3.8 mmol/L (3.4-5.1); Sodium 139 mmol/L (137-145); Total Protein 6.8 g/dL (6.3-8.2)
[2023-01-11] MEDS: FUROSEMIDE 60 MG in SODIUM CHLORIDE 0.9% 50 ML 112 MG IV (13:19)
[2023-01-11 13:25] LABS: NT-proBNP (BNP-Adult 18+) 1080 pg/mL (<450)
[2023-01-11 13:27] LABS: COVID19 -Nasal RAPID Negative (Negative)
[2023-01-11 13:29] LABS: Troponin I 0.021 ng/mL (0.01-0.034)
[2023-01-11 13:34] LABS: Anisocytosis 2+; Microcytosis 1+
--- NOTE | 2023-01-11 14:04 | PC.NURSE ---
reports headache, intermittent chest pressure that comes and goes. Increase SOB. Reports worsening lower extremity swelling bilaterally
[2023-01-11 14:19] LABS: Bacteria Urine None Seen; Culture Indicated Urine Cult Not Indicated; RBC Urine None Seen (0-5/HPF); Squamous Epithelial Cell Urine None Seen (0-5/HPF); Urine Comments Microscopic Normal; WBC Urine None Seen (0-5/HPF)
--- NOTE | 2023-01-11 15:05 | PC.NURSE ---
dizzy, weak and lightheaded with ambulation to commode
--- NOTE | 2023-01-11 15:14 | PC.NURSE ---
Addendum entered by Erika Aranda R.N. 01/11/23 15:15: Dr campos updated on patients current state. Discussion at bedside with patient and daughter. Patient agreeable to staying in hospital Original Note: Upon discussion of discharge paperwork, patient reports really not feeling well. I feel punkier than when I first came in Reports dizziness and general fatigue.
--- NOTE | 2023-01-11 15:19 | ED_ITS ---
HPI - Chest Pain General Chief Complaint: Chest Pain Stated Complaint: headache/heart goingcha-chaSOB/pain down in arms Time Seen by Provider: 01/11/23 12:09 Source: patient Mode of arrival: Ambulatory Limitations: no limitations Related Data Home Medications Medication Instructions Recorded Confirmed aspirin 81 mg tablet,delayed 81 mg PO DAILY ##0 05/14/17 03/06/21 release nitroglycerin 0.4 mg sublingual 1 tab sublingual [id number] PRN Chest 11/18/18 03/06/21 tablet Pain rosuvastatin 40 mg tablet 40 mg PO QPM 11/18/18 03/06/21 ranolazine 500 mg tablet,extended 500 mg PO BID 02/09/20 03/06/21 release,12 hr escitalopram oxalate 20 mg tablet 20 mg PO DAILY 03/06/21 03/06/21 pantoprazole 40 mg tablet,delayed 40 mg PO DAILY 03/06/21 03/06/21 release alprazolam 0.5 mg tablet 0.5 mg PO Q6HR anxiety 03/10/21 03/10/21 Previous Rx's Medication Instructions Recorded metoprolol tartrate 50 mg tablet 50 mg PO TID #60 tabs 03/11/21 oxycodone-acetaminophen 5 mg-325 1 tab PO Q6H PRN pain #14 tabs 06/14/21 mg tablet prednisone 5 mg tablet 5 mg PO DAILY #20 tabs 06/14/21 prednisone 5 mg tablet 5 mg PO DAILY #20 tabs 06/14/21 prednisone 5 mg tablet 5 mg PO DAILY #20 tabs 06/14/21 furosemide 40 mg tablet 40 mg PO Q OTHER DAY #30 tabs 04/27/22 oxycodone-acetaminophen 5 mg-325 1 tab PO Q6H PRN pain #20 tabs 04/27/22 mg tablet furosemide 20 mg tablet 20 mg PO DAILY #30 tabs 07/01/22 spironolactone 25 mg tablet 25 mg PO DAILY #30 tabs 07/01/22 benzonatate 100 mg capsule 100 mg PO TID PRN cough #20 caps 12/13/22 methylprednisolone 4 mg tablets in See Rx Instructions PO .COMPLEX 12/13/22 a dose pack (Medrol (Bryon)) #21 ea Allergies Allergy/AdvReac Type Severity Reaction Status Date / Time ibuprofen [IBUPROFEN] Allergy Severe Rash Verified 12/13/22 10:27 Iodinated Contrast Media Allergy Severe Unconscious Verified 12/13/22 10:27 [IODINATED CONTRAST- ORAL AND IV DYE] morphine [MORPHINE] Allergy Severe Rash Verified 12/13/22 10:27 naproxen [From ALEVE] Allergy Severe Rash Verified 12/13/22 10:27 telmisartan [TELMISARTAN] Allergy Severe Rash Verified 12/13/22 10:27 Review of Systems Neurologic Neurologic: Reports system reviewed and no additional complaints, except as documented Patient History Medical History (Updated 01/11/23 @ 15:00 by Valerio East DO) Cardiac arrest Chest pain Coronary artery disease Diastolic heart failure Hyperlipidemia Hypertension Left hamstring muscle strain NSTEMI (non-ST elevated myocardial infarction) Skin cancer UTI (urinary tract infection) Surgical History H/O right heart catheterization History of appendectomy History of breast implant removal History of breast surgery History of cholecystectomy History of coronary artery stent placement History of total abdominal hysterectomy Family History Father Hypertension Diabetes mellitus Mother Hypertension [place] (myocardial infarction) Sister IN (myocardial infarction) S/P CABG x 4 Social History household members: children Smoking Status: Never smoker Smoking Status: Never smoker alcohol intake frequency: holidays/special occasions only Substance Use Type: does not use Exam Initial Vital Signs Initial Vital Signs: Vital Signs Temperature 98.8 F 01/11/23 11:40 Pulse Rate 58 L 01/11/23 11:40 Respiratory Rate 16 01/11/23 11:40 Blood Pressure 138/77 01/11/23 11:40 Pulse Oximetry 98 01/11/23 11:40 Oxygen Delivery Method Nasal Cannula 01/11/23 11:40 Oxygen Flow Rate 3 01/11/23 11:40 Course Orders Ordered: ED Orders 01/11/23 12:01 XR chest 1V Stat 01/11/23 12:02 EKG-12 Lead Stat 01/11/23 12:55 BNP [NT-proBNP (BNP-Adult 18+)] Stat Complete Blood Count AUTO DIFF Stat Comprehensive Metabolic Panel Stat Lipase Stat Magnesium Stat PTT Partial Thromboplastin Garo Stat Prothrombin Time INR Stat Troponin & CK Cardiac Panel Stat 01/11/23 13:02 COVID19 -Nasal RAPID Stat 01/11/23 14:00 Urine Microscopic Stat Discontinued Medications Aspirin (Aspirin 81 Mg Chew Tab) 324 mg PO NOW ONE Stop: 01/11/23 12:02 Last Admin: 01/11/23 13:19 Dose: Not Given Documented By: GLADYS Furosemide 60 mg/ Sodium (Chloride) 56 mls @ 112 mls/hr IV NOW ONE Stop: 01/11/23 12:36 Last Infusion: 01/11/23 13:57 Dose: 0 mls/hr Documented By: Admin: 01/11/23 13:19 Dose: 112 mls/hr Documented By: GLADYS Vital Signs Vital signs: Vital Signs - 8 hr 01/11/23 11:40 01/11/23 12:40 01/11/23 12:41 Temperature 98.8 F Pulse Rate 58 L 61 Respiratory Rate 16 24 Blood Pressure 138/77 158/72 H Pulse Oximetry 98 98 Oxygen Delivery Method Nasal Cannula Oxygen Flow Rate 3 01/11/23 12:41 01/11/23 13:00 01/11/23 13:00 Temperature Pulse Rate 61 61 Respiratory Rate 10 L 12 Blood Pressure 149/67 H Pulse Oximetry 96 98 Oxygen Delivery Method Oxygen Flow Rate 01/11/23 13:30 01/11/23 13:30 01/11/23 14:00 Temperature Pulse Rate 60 Respiratory Rate 18 Blood Pressure 141/103 H 124/57 L Pulse Oximetry 98 Oxygen Delivery Method Oxygen Flow Rate 01/11/23 14:00 01/11/23 14:30 01/11/23 14:31 Temperature Pulse Rate 61 72 Respiratory Rate 18 20 Blood Pressure 178/77 H Pulse Oximetry 97 96 Oxygen Delivery Method Oxygen Flow Rate 01/11/23 14:31 01/11/23 15:00 01/11/23 15:00 Temperature Pulse Rate 68 66 Respiratory Rate 20 12 Blood Pressure 184/77 H Pulse Oximetry 98 97 Oxygen Delivery Method Oxygen Flow Rate MDM - Chest Pain Lab Data 01/11/23 12:55 01/11/23 12:55 Labs: Lab Results 01/11/23 01/11/23 01/11/23 Range/Units 12:55 12:55 12:55 WBC 6.2 (4.5-11.0) X10^3/uL RBC 5.14 (4.0-5.2) X10^6/uL Hgb 12.3 (12.0-16.0) g/dL Hct 37.9 (36-46) % MCV 73.8 L (80-100) fL MCH 24.0 L (26-34) PG MCHC 32.5 (30-36) % RDW 21.0 H (11.6-14.8) % Plt Count 215 (150-400) X10^3/uL Neut % (Auto) 53.9 (50-75) % Lymph % (Auto) 32.9 (25-40) % [place] % (Auto) 10.1 (3-14) % Eos % (Auto) 2.7 (2-4) % Baso % (Auto) 0.4 (0-2) % Neut # (Auto) 3300 (7103-0931) /uL Lymph # (Auto) 2000 (4908-8722) /uL [place] # (Auto) 600 (0-900) /uL Eos # (Auto) 200 (0-450) /uL Baso # (Auto) 0 (0-100) /uL RBC Morphology See below Anisocytosis 2+ H Microcytosis 1+ H PT 12.5 (10.1-12.7) SECONDS INR 1.1 (0.9-1.3) APTT 27 (26-36) SECONDS Sodium 139 (137-145) mmol/L Potassium 3.8 (3.4-5.1) mmol/L Chloride 102 (98-107) mmol/L Carbon Dioxide 29 (22-32) mmol/L BUN 13 (7-17) mg/dL Creatinine 1.20 H (0.52-1.04) mg/dL Estimated GFR 44 L (>60) mL/min BUN/Creatinine Ratio 10.8 (6-22) Glucose 121 H (80-110) mg/dL Calcium 8.7 (8.4-10.2) mg/dL Magnesium 2.1 (1.6-2.3) mg/dL Total Bilirubin 0.6 (0.2-1.3) mg/dL AST 23 (14-36) IU/L ALT 9 (<35) IU/L Alkaline Phosphatase 60 (38-126) U/L Total Creatine Kinase 30 (30-135) U/L Troponin I 0.021 (0.01-0.034) ng/mL NT-Pro-B Natriuret Pep (<450) pg/mL Total Protein 6.8 (6.3-8.2) g/dL Albumin 3.7 (3.5-5.0) g/dL Globulin 3.1 (1.7-4.1) g/dL Albumin/Globulin Ratio 1.2 (1.0-2.8) Lipase 97 (23-300) U/L Urine RBC (0-5/HPF) Urine WBC (0-5/HPF) Ur Squamous Epith Cells (0-5/HPF) Urine Bacteria (None) Ur Culture Indicated? Micro UA Comment SARS-CoV-2 (PCR) (Negative) 01/11/23 01/11/23 01/11/23 Range/Units 12:55 13:02 14:00 WBC (4.5-11.0) X10^3/uL RBC (4.0-5.2) X10^6/uL Hgb (12.0-16.0) g/dL Hct (36-46) % MCV (80-100) fL MCH (26-34) PG MCHC (30-36) % RDW (11.6-14.8) % Plt Count (150-400) X10^3/uL Neut % (Auto) (50-75) % Lymph % (Auto) (25-40) % [place] % (Auto) (3-14) % Eos % (Auto) (2-4) % Baso % (Auto) (0-2) % Neut # (Auto) (5846-4007) /uL Lymph # (Auto) (0023-6500) /uL [place] # (Auto) (0-900) /uL Eos # (Auto) (0-450) /uL Baso # (Auto) (0-100) /uL RBC Morphology Anisocytosis Microcytosis PT (10.1-12.7) SECONDS INR (0.9-1.3) APTT (26-36) SECONDS Sodium (137-145) mmol/L Potassium (3.4-5.1) mmol/L Chloride (98-107) mmol/L Carbon Dioxide (22-32) mmol/L BUN (7-17) mg/dL Creatinine (0.52-1.04) mg/dL Estimated GFR (>60) mL/min BUN/Creatinine Ratio (6-22) Glucose (80-110) mg/dL Calcium (8.4-10.2) mg/dL Magnesium (1.6-2.3) mg/dL Total Bilirubin (0.2-1.3) mg/dL AST (14-36) IU/L ALT (<35) IU/L Alkaline Phosphatase (38-126) U/L Total Creatine Kinase (30-135) U/L Troponin I (0.01-0.034) ng/mL NT-Pro-B Natriuret Pep 1080 H (<450) pg/mL Total Protein (6.3-8.2) g/dL Albumin (3.5-5.0) g/dL Globulin (1.7-4.1) g/dL Albumin/Globulin Ratio (1.0-2.8) Lipase (23-300) U/L Urine RBC None seen (0-5/HPF) Urine WBC None seen (0-5/HPF) Ur Squamous Epith Cells None seen (0-5/HPF) Urine Bacteria None seen (None) Ur Culture Indicated? Cult not indicated Micro UA Comment Microscopic normal SARS-CoV-2 (PCR) Negative (Negative) Urine Dip Bedside Urine Glucose 1000 mg/dl Bedside Urine Bilirubin - Negative Bedside Urine Ketone - Negative Urine Specific [place] 1.015 Bedside Urine Occult Blood +/- Bedside Urine pH 6.0 Bedside Urine Protein - Negative Bedside Urine Urobilinogen - Negative Bedside Urine Nitrite - Negative Bedside Urine Leukocytes - Negative Esterase Discharge Plan Departure Patient Disposition: Home Clinical Impression: CHF (congestive heart failure) Instructions: DI for Heart Failure Activity Restrictions/Additional Instructions: Recommend that you continue to take all of your medications as directed except increase your Lasix to 20 mg a day. You can take this like we discussed. 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 Return to the emergency department for new or worsening symptoms. Prescriptions: No Action aspirin 81 MG tablet,delayed release (DR/EC) 81 mg PO DAILY Qty: 0 ranolazine 500 mg tablet extended release 12 hr 500 mg PO BID pantoprazole 40 mg Tablet,Delayed Release (Dr/Ec) 40 mg PO DAILY escitalopram oxalate 20 mg Tablet 20 mg PO DAILY alprazolam 0.5 mg tablet 0.5 mg PO Q6HR metoprolol tartrate 50 mg Tablet 50 mg PO TID Qty: 60 0RF furosemide 40 mg tablet 40 mg PO Q OTHER DAY Qty: 30 0RF oxycodone-acetaminophen 5-325 mg tablet 1 tab PO Q6H PRN (Reason: pain) Qty: 20 0RF benzonatate 100 mg capsule 100 mg PO TID PRN (Reason: cough) Qty: 20 0RF methylprednisolone [Medrol (Bryon)] 4 mg tablets,dose pack See Rx Instructions .ROUTE .COMPLEX Qty: 21 0RF Rx Instructions: orally per package directions nitroglycerin 0.4 mg tablet, sublingual 1 tab sublingual [id number] PRN (Reason: Chest Pain) Patient Comments: take it when needed, last dose unknown rosuvastatin 40 mg tablet 40 mg PO QPM prednisone 5 mg tablet 5 mg PO DAILY Qty: 20 0RF oxycodone-acetaminophen 5-325 mg tablet 1 tab PO Q6H PRN (Reason: pain) Qty: 14 0RF prednisone 5 mg tablet 5 mg PO DAILY Qty: 20 0RF prednisone 5 mg tablet 5 mg PO DAILY Qty: 20 0RF spironolactone 25 mg tablet 25 mg PO DAILY Qty: 30 0RF furosemide 20 mg tablet 20 mg PO DAILY Qty: 30 0RF Referrals: Zoe Bass PA-C [Primary Care Provider] - Stand Alone Forms: Patient Portal/API
--- NOTE | 2023-01-11 15:48 | DI.ECHO.S_ITS ---
[facility] +---------+ : : [address] : : : : [id number] : : : : Phone: [phone]+ Echocardiogram Report + + :Name: BASIA العراقي Study Date: 01/12/2023 Height: 64 in : :[facility] ReadingLocation: Weight: 207 lb : : Gender: Female BSA: 2.0 m2 : :: 1935 Age: 87 yrs BP: 185/54 mmHg: :Reason For Study: Congestive Heart Failure : :Ordering Physician: LAURA, : :JOSE DAVID Salmon Performed By: Carole Jones : :Referring: JOSE ADVID SANCHEZ : + + Interpretation Summary The ejection fraction is estimated to be 65-70%. Diastolic function could not be accurately assessed due to contradictory data. The right ventricle is normal in size and function. There is trace aortic regurgitation. Pulmonary artery pressures cannot be estimated because of the lack of a measurable TR jet velocity. There is a small pericardial effusion noted. There are no echocardiographic indications of cardiac tamponade. Procedure: A two-dimensional transthoracic echocardiogram with color flow and Doppler was performed. The study quality was technically difficult. Comparison is made with the echocardiogram of 04/26/2022. A contrast injection of Definity was performed to improve assessment of LV function. The patient was in normal sinus rhythm during the exam. Left Ventricle: The left ventricle is normal in size and wall thickness. The ejection fraction is estimated to be 65-70%. Diastolic function could not be accurately assessed due to contradictory data. Right Ventricle: The right ventricle is normal in size and function. Atria: The left atrial size is normal. Right atrial size is normal. There is no Doppler evidence for an interatrial shunt. Mitral Valve: The mitral valve leaflets are slightly calcified. There is moderate mitral annular calcification. The mitral valve mean gradient is 4 mmHg. There is trace mitral regurgitation. Aortic Valve: The aortic valve is trileaflet. There is mild aortic valve sclerosis. There is no aortic valve stenosis. There is trace aortic regurgitation. Tricuspid Valve: The tricuspid valve is normal. There is no tricuspid stenosis. There is trace tricuspid regurgitation. Pulmonary artery pressures cannot be estimated because of the lack of a measurable TR jet velocity. Pulmonic Valve: The pulmonic valve is not well visualized. There is no pulmonic valvular stenosis. There is trace pulmonic regurgitation. Great Vessels: The aortic root is normal size. The ascending aorta is normal in size. The pulmonary artery is normal size. The inferior vena cava was not well visualized. Pericardium/ Pleura There is a small pericardial effusion noted. There are no echocardiographic indications of cardiac tamponade. There is no pleural effusion. MMode/2D Measurements & Calculations LVIDd: 4.7 cm LVOT diam: 1.7 cm LVIDs: 2.0 cm Ao root diam: 3.3 cm FS: 57.9 % asc Aorta Diam: 3.0 cm EPSS: 0.80 cm IVSd: 0.96 cm LVPWd: 0.88 cm LV nelson. diameter/BSA (cm/m^2): 2.4 LV sys. diameter/BSA (cm/m^2): 1.0 LA A2 area: 25.2 cm2 LVLs ap4: 6.3 cm LA A4 area: 16.3 cm2 LA length (vol): 6.4 cm LA vol: 54.6 ml LA vol index: 27.5 ml/m2 LVLd ap2: 7.0 cm TAPSE_phl: 2.7 cm LVLs ap2: 5.5 cm Doppler Measurements & Calculations Ao V2 max: 156.8 cm/sec LVOT Max Wes: 128.3 cm/sec Ao V2 mean: 112.0 cm/sec LV V1 max P.6 mmHg Ao max P.0 mmHg LV V1 VTI: 29.3 cm Ao mean P.0 mmHg YULIA(I,D): 1.9 cm2 Ao V2 VTI: 35.6 cm YULIA(V,D): 1.9 cm2 sev ratio: 0.82 YULIA indexed to BSA (cm^2/m^2): 0.94 MV E max wes: 123.0 cm/sec TR max wes: 186.0 cm/sec MV A max wes: 137.0 cm/sec TR max P.8 mmHg MV E/A: 0.90 PA V2 max: 111.0 cm/sec Med Peak E' Wes: 4.7 cm/sec PA V2 mean: 78.2 cm/sec E/E' med: 26.3 PA mean P.0 mmHg Lat Peak E' Wes: 4.5 cm/sec PA pr(Accel): 7.9 mmHg E/E' lat: 27.3 E/e' average: 26.8 MV dec time: 0.26 sec MVA(VTI): 1.5 cm2 MV V2 mean: 95.4 cm/sec SV(LVOT): 66.4 ml MV mean P.0 mmHg MV V2 VTI: 45.5 cm AV VR_phl: 0.82 YULIA(VTI)/BSA_phl: 0.94 Reading Physician:11:42 AM
[2023-01-11 17:01] LABS: TSH w/ Reflex to FT4 2.19 uIU/mL (0.47-4.68)
--- NOTE | 2023-01-11 17:36 | PM.HP.1 ---
History of Present Illness History of Present Illness Date Patient Seen: 01/11/23 Time Patient Seen: 18:28 Chief complaint: headache/heart goingcha-chaSOB/pain down in arms Narrative: Lida Townsend is an 86yo F with PMH of CAD s/p 6 stents, CHFpEF, HTN, HLD, pulmonary fibrosis on 2L O2, remote history of cardiac arrest secondary to med reaction who presents with worsening dyspnea and dizziness. Patient was seen in the ED for very similar symptoms 2 weeks ago. She now states her symptoms of dyspnea and diffuse achiness is much worse. She also has occasionally burning in her chest with deep respirations, which her doctor told her was most likely pleurisy. Patient also feels weak and lightheaded, especially when standing up. She doesn't drink very much water. Has been taking her lasix daily. In the ED patient found to require 3L NC and had LE edema so given 60mg IV lasix. She diuresed -1.4L. She then became quite dizzy when standing up, which she states was worse after getting the lasix. She will be admitted to acute care for workup of her SOB, dizziness and weakness. She denies NV, abd pain, cough, angina, or diarrhea. [facility] Medical History (Updated 01/11/23 @ 15:22 by Valerio East DO) Cardiac arrest Chest pain Coronary artery disease Diastolic heart failure Hyperlipidemia Hypertension Left hamstring muscle strain NSTEMI (non-ST elevated myocardial infarction) Skin cancer UTI (urinary tract infection) Surgical History H/O right heart catheterization History of appendectomy History of breast implant removal History of breast surgery History of cholecystectomy History of coronary artery stent placement History of total abdominal hysterectomy Family History Father Hypertension Diabetes mellitus Mother Hypertension [place] (myocardial infarction) Sister NE (myocardial infarction) S/P CABG x 4 Social History household members: children Smoking Status: Never smoker Meds Home Medications and Allergies Home Medications Medication Instructions Recorded Confirmed Type aspirin 81 mg tablet,delayed 81 mg PO DAILY ##0 05/14/17 01/11/23 History release nitroglycerin 0.4 mg sublingual 1 tab sublingual [id number] PRN Chest 11/18/18 01/11/23 History tablet Pain rosuvastatin 40 mg tablet 40 mg PO QPM 11/18/18 01/11/23 History ranolazine 500 mg tablet,extended 500 mg PO BID 02/09/20 01/11/23 History release,12 hr escitalopram oxalate 20 mg tablet 20 mg PO DAILY 03/06/21 01/11/23 History pantoprazole 40 mg tablet,delayed 40 mg PO DAILY 03/06/21 01/11/23 History release alprazolam 0.5 mg tablet 0.5 mg PO Q6HR anxiety 03/10/21 01/11/23 History metoprolol tartrate 50 mg tablet 50 mg PO TID #60 tabs 03/11/21 01/11/23 Rx oxycodone-acetaminophen 5 mg-325 1 tab PO Q6H PRN pain #14 tabs 06/14/21 01/11/23 Rx mg tablet benzonatate 100 mg capsule 100 mg PO TID PRN cough #20 caps 12/13/22 01/11/23 Rx methylprednisolone 4 mg tablets in See Rx Instructions PO .COMPLEX 12/13/22 01/11/23 Rx a dose pack (Medrol (Bryon)) #21 ea furosemide 20 mg tablet 10 mg PO DAILY 01/11/23 01/11/23 History Allergies Allergy/AdvReac Type Severity Reaction Status Date / Time ibuprofen [IBUPROFEN] Allergy Severe Rash Verified 12/13/22 10:27 Iodinated Contrast Media Allergy Severe Unconscious Verified 12/13/22 10:27 [IODINATED CONTRAST- ORAL AND IV DYE] morphine [MORPHINE] Allergy Severe Rash Verified 12/13/22 10:27 naproxen [From ALEVE] Allergy Severe Rash Verified 12/13/22 10:27 telmisartan [TELMISARTAN] Allergy Severe Rash Verified 12/13/22 10:27 Review of Systems Review of Systems Narrative: All other systems reviewed with the patient and are negative unless otherwise stated. Exam Vital Signs (past 8 hours): - 01/11/23 11:40 01/11/23 12:40 01/11/23 12:41 Temperature 98.8 F Pulse Rate 58 L 61 Respiratory Rate 16 24 Blood Pressure 138/77 158/72 H Pulse Oximetry 98 98 Oxygen Delivery Method Nasal Cannula Oxygen Flow Rate 3 01/11/23 12:41 01/11/23 13:00 01/11/23 13:00 Temperature Pulse Rate 61 61 Respiratory Rate 10 L 12 Blood Pressure 149/67 H Pulse Oximetry 96 98 Oxygen Delivery Method Oxygen Flow Rate 01/11/23 13:30 01/11/23 13:30 01/11/23 14:00 Temperature Pulse Rate 60 Respiratory Rate 18 Blood Pressure 141/103 H 124/57 L Pulse Oximetry 98 Oxygen Delivery Method Nasal Cannula Oxygen Flow Rate 3 01/11/23 14:00 01/11/23 14:30 01/11/23 14:31 Temperature Pulse Rate 61 72 Respiratory Rate 18 20 Blood Pressure 178/77 H Pulse Oximetry 97 96 Oxygen Delivery Method Nasal Cannula Nasal Cannula Oxygen Flow Rate 3 3 01/11/23 14:31 01/11/23 15:00 01/11/23 15:00 Temperature Pulse Rate 68 66 Respiratory Rate 20 12 Blood Pressure 184/77 H Pulse Oximetry 98 97 Oxygen Delivery Method Oxygen Flow Rate 01/11/23 15:30 01/11/23 15:31 01/11/23 15:31 Temperature Pulse Rate 71 71 Respiratory Rate 17 26 H Blood Pressure 171/108 H Pulse Oximetry 85 L 95 Oxygen Delivery Method Oxygen Flow Rate 01/11/23 15:30 01/11/23 17:15 01/11/23 17:31 Temperature 97.8 F Pulse Rate 69 70 Respiratory Rate 19 Blood Pressure 185/54 H 132/49 L Pulse Oximetry 98 Oxygen Delivery Method Nasal Cannula Oxygen Flow Rate 3 Oxygen Delivery Method Nasal Cannula Oxygen Flow Rate 3 Narrative Exam Narrative: GEN: no acute distress, pleasant elderly woman on 3L NC HEENT: dry mucous membranes, PERRL NECK: trachea midline, no JVD CV: regular rate and rhythm, no murmurs PULM: clear bilaterally ABD: soft, nontender, nondistended, no organomegaly EXT: warm and well perfused with trace edema NEURO: awake, alert, oriented, no focal deficits Objective Labs 01/11/23 12:55 01/11/23 12:55 Labs: Laboratory Results - last 24 hr 01/11/23 01/11/23 01/11/23 12:55 12:55 12:55 WBC 6.2 RBC 5.14 Hgb 12.3 Hct 37.9 MCV 73.8 L MCH 24.0 L MCHC 32.5 RDW 21.0 H Plt Count 215 Neut % (Auto) 53.9 Lymph % (Auto) 32.9 [place] % (Auto) 10.1 Eos % (Auto) 2.7 Baso % (Auto) 0.4 Neut # (Auto) 3300 Lymph # (Auto) 2000 [place] # (Auto) 600 Eos # (Auto) 200 Baso # (Auto) 0 RBC Morphology See below Anisocytosis 2+ H Microcytosis 1+ H PT 12.5 INR 1.1 APTT 27 Sodium 139 Potassium 3.8 Chloride 102 Carbon Dioxide 29 BUN 13 Creatinine 1.20 H Estimated GFR 44 L BUN/Creatinine Ratio 10.8 Glucose 121 H Calcium 8.7 Magnesium 2.1 Total Bilirubin 0.6 AST 23 ALT 9 Alkaline Phosphatase 60 Total Creatine Kinase 30 Troponin I 0.021 NT-Pro-B Natriuret Pep Total Protein 6.8 Albumin 3.7 Globulin 3.1 Albumin/Globulin Ratio 1.2 Lipase 97 TSH Urine RBC Urine WBC Ur Squamous Epith Cells Urine Bacteria Ur Culture Indicated? Micro UA Comment SARS-CoV-2 (PCR) 01/11/23 01/11/23 01/11/23 12:55 12:55 13:02 WBC RBC Hgb Hct MCV MCH MCHC RDW Plt Count Neut % (Auto) Lymph % (Auto) [place] % (Auto) Eos % (Auto) Baso % (Auto) Neut # (Auto) Lymph # (Auto) [place] # (Auto) Eos # (Auto) Baso # (Auto) RBC Morphology Anisocytosis Microcytosis PT INR APTT Sodium Potassium Chloride Carbon Dioxide BUN Creatinine Estimated GFR BUN/Creatinine Ratio Glucose Calcium Magnesium Total Bilirubin AST ALT Alkaline Phosphatase Total Creatine Kinase Troponin I NT-Pro-B Natriuret Pep 1080 H Total Protein Albumin Globulin Albumin/Globulin Ratio Lipase TSH 2.19 Urine RBC Urine WBC Ur Squamous Epith Cells Urine Bacteria Ur Culture Indicated? Micro UA Comment SARS-CoV-2 (PCR) Negative 01/11/23 14:00 WBC RBC Hgb Hct MCV MCH MCHC RDW Plt Count Neut % (Auto) Lymph % (Auto) [place] % (Auto) Eos % (Auto) Baso % (Auto) Neut # (Auto) Lymph # (Auto) [place] # (Auto) Eos # (Auto) Baso # (Auto) RBC Morphology Anisocytosis Microcytosis PT INR APTT Sodium Potassium Chloride Carbon Dioxide BUN Creatinine Estimated GFR BUN/Creatinine Ratio Glucose Calcium Magnesium Total Bilirubin AST ALT Alkaline Phosphatase Total Creatine Kinase Troponin I NT-Pro-B Natriuret Pep Total Protein Albumin Globulin Albumin/Globulin Ratio Lipase TSH Urine RBC None seen Urine WBC None seen Ur Squamous Epith Cells None seen Urine Bacteria None seen Ur Culture Indicated? Cult not indicated Micro UA Comment Microscopic normal SARS-CoV-2 (PCR) Assessment & Plan Assessment & Plan narrative: # SOB due to suspected ILD flare -patient states her lungs burn -has become acutely short of breath, no obvious explanation of CXR -start prednisone 40mg x5 days -if not improving consider CT chest and pulm consult # acute on chronic hypoxic resp failure -normally on 2L NC due to her ILD, now requiring 3L -CXR with no acute process, cardiomegaly -continue O2 to keep sats >90% # lightheadedness, orthostatic -occurs at rest mildly and alot when standing up -likely hypovolemic -hold lasix -check orthostatics qshift -IVF then reassess # diffuse muscle pain, weakness -may be secondary to statin, will hold -start scheduled tylenol -PT/OT evals # FRANCESCA on CKD stage 2 -suspect secondary to hypovolemia -recheck in am -hold lasix # CHFpEF -hold lasix for now -continue ranolazine -repeat echo ordered # Depression/anxiety -continue ssri and xanax PRN Code status is full code (wants to live until 105). DVT prophylaxis with heparin subQ. Proxy is Beronica Lam, daughter. I have reviewed home meds and used all available resources to reconcile the home meds. Case discussed with ED physician/APC and patient will be admitted to the hospitalist service for further workup and management. This patient will be admitted as observation and will require less than 2 midnights of hospital time to treat dyspnea and chest pain. Quality VTE Deep Vein Thrombosis/Pulmonary Embolism Present on Admission: No
[2023-01-11] MEDS: predniSONE 20 MG TABLET 40 MG PO (18:47)
[2023-01-11] MEDS: SODIUM CHLORIDE 0.9% 1,000 ML 100 ML IV (18:48)
[2023-01-11] MEDS: METOPROLOL IR 50 MG TABLET PO (20:48)
[2023-01-11] MEDS: HEPARIN 5,000 UNIT/ML VIAL 5000 UNIT SUBCUT (20:48)
[2023-01-11] MEDS: RANOLAZINE 500 MG TAB.ER.12H PO (20:48)
[2023-01-11] MEDS: SENNOSIDES 8.6 MG TABLET PO (20:51)
[2023-01-11] MEDS: ATORVASTATIN 20 MG TABLET 40 MG PO (21:24)
[2023-01-11] MEDS: ALPRAZolam 0.5 MG TABLET PO (21:24)
[2023-01-12] VITALS (10 sets, daily range): BP systolic 125–187; BP diastolic 38–93; PULSE 63–90; RESP 17–20; TEMP 35.9–36.8; O2SAT 93–99
[2023-01-12] MEDS: ACETAMINOPHEN 325 MG TABLET 650 MG PO ×3 (04:53→20:53)
[2023-01-12 05:24] LABS: BUN Creatinine Ratio 10.5 (6-22); Blood Urea Nitrogen 12 mg/dL (7-17); Calcium 8.7 mg/dL (8.4-10.2); Carbon Dioxide 27 mmol/L (22-32); Chloride 104 mmol/L (98-107); Estimated Glomerular Filt Rate 47 mL/min (>60); Glucose 150 mg/dL (80-110); HEMOLYSIS < 15 (0-50); Potassium 3.9 mmol/L (3.4-5.1); Sodium 137 mmol/L (137-145)
[2023-01-12 05:26] LABS: Add Manual Diff / Slide Review NO; Basophils Absolute Auto 0 /uL (0-100); Basophils Percent Auto 0.5 % (0-2); Eosinophils Absolute Auto 0 /uL (0-450); Eosinophils Percent Auto 0.1 % (2-4); Hematocrit 37.7 % (36-46); Hemoglobin 12.3 g/dL (12.0-16.0); Lymphocytes Absolute Auto 1200 /uL (1100-4500); Lymphocytes Percent Auto 20.1 % (25-40); Mean Corpuscular HGB Conc 32.6 % (30-36); Mean Corpuscular Hemoglobin 24.1 PG (26-34); Monocytes Absolute Auto 100 /uL (0-900); Monocytes Percent Auto 1.5 % (3-14); Neutrophils Absolute Auto 4600 /uL (1500-7000); Neutrophils Percent Auto 77.8 % (50-75); Platelet Count 222 X10^3/uL (150-400); Red Cell Distribution Width 20.9 % (11.6-14.8); White Blood Cell Count 5.9 X10^3/uL (4.5-11.0)
[2023-01-12 06:40] LABS: Anisocytosis 1+
--- NOTE | 2023-01-12 09:07 | OT.IP.EVAL ---
Past Medical History (Last Reviewed 01/11/23 @ 12:39 by Valerio East DO) Cardiac arrest Chest pain Coronary artery disease Diastolic heart failure Hyperlipidemia Hypertension Left hamstring muscle strain NSTEMI (non-ST elevated myocardial infarction) Skin cancer UTI (urinary tract infection) Surgical History (Last Reviewed 12/21/22 @ 22:41 by Zarina Gu DO) H/O right heart catheterization History of appendectomy History of breast implant removal History of breast surgery History of cholecystectomy History of coronary artery stent placement History of total abdominal hysterectomy Occupational Therapy Inpatient Evaluation/Re-Eval M1 PT/OT-IP Prior Functional Status Start: 01/12/23 08:38 Freq: NEEDED Status: Active Protocol: Document 01/12/23 09:07 [facility] (Rec: 01/12/23 12:48 [facility] [id number]) Medical Review Prior Functional Status Medical History Reviewed Yes Communication Independent Mobility and Gait Use of 4ww at all times. Activities of Daily Living and IADL's Pt has assist for socks and just sponges off at home. Pt has assist with bills , laundry and meals. Social History Household Members children Living Arrangements House Number of Floors (Floors) One Floor Number of Stairs To Enter/Railing? Pt has 4 steps with bilateral rails to enter. 1 step to the toilet. Home Environment Standard Height Toilet,Walk in Shower Home Equipment Four Wheel Walker,Bedside Commode,Fare Collector,Sock Aid,Grab Bars Near Toilet,Grab Bars In Shower Additional Social History Comment Pt has a adjustable bed and usually gets up on the right side with the HOB up. M2 OT-IP Current Condition Start: 01/12/23 12:18 Freq: Status: Active Protocol: Document 01/12/23 09:07 [facility] (Rec: 01/12/23 12:48 [facility] [id number]) Occupational Therapy Current Condition Current Condition Evaluation Date 01/12/23 Treatment Diagnosis Acute chronic hypoxic respiratory failure, SOB, generalized weakness Diagnosis Onset Date 01/09/23 Post Operative Precautions Posterior Hip Precautions No Hip Flexion > 90 degrees,No Hip Internal Rotation,No Hip Adduction M3 OT- IP Subjective and Pain Start: 01/12/23 12:18 Freq: Status: Active Protocol: Document 01/12/23 09:07 [facility] (Rec: 01/12/23 12:48 [facility] [id number]) OT- Subjective Occupational Therapy Visit Type Type Initial Evaluation Visit Start Time 09:07 Visit Stop Time 09:41 Total Visit Minutes 34 Occupational Therapy Visit Comments Patient Comments Pt agreed to get up and wanting to use the bathroom. Patient/Caregiver Goals To go home. OT Pain Assessment Pain When Pain Assessed At Rest Pain Present Pain Present Pain Reported Location Right Abdomen Intensity 4 Scale Used Numeric (0 - 10) M4 OT- IP ADL's Start: 01/12/23 12:18 Freq: Status: Active Protocol: Document 01/12/23 09:07 [facility] (Rec: 01/12/23 12:48 [facility] [id number]) OT [id number] General Evaluation Self-Feeding Ability Independent OT ADL-Grooming Comments OT Grooming Comments not performed OT ADL-Oral Care Comments Oral Care Comments Not performed OT ADL-Dressing General Eval Lower Body Dressing Ability Maximum Assistance Comments OT Dressing Comments assist with socks OT ADL-Toileting Comments OT Toileting Comments NOt performed. Pt states at home wears pads at all times. OT ADL-Bathing Comments OT Bathing Comments Not performed. M5 OT- IP IADL's Start: 01/12/23 12:18 Freq: Status: Active Protocol: Document 01/12/23 09:07 [facility] (Rec: 01/12/23 12:48 [facility] [id number]) OT-Instrumental Activities of Daily Living Deficits IADL Deficits Identified Deficits Home Safety Awareness Awareness of Need for Assistance at Home Good Awareness Home Safety Comments Pt has son that stays with her and daughter to assist at well. Money Management Money Management Caregiver Provides Assistance Meal Preparation Meal Preparation Caregiver Provides Assist Front Clerk Front Clerk Caregiver Provides Assist M6 OT- IP Functional Cognition Start: 01/12/23 12:18 Freq: Status: Active Protocol: Document 01/12/23 09:07 [facility] (Rec: 01/12/23 12:48 [facility] [id number]) Cognitive Factors Limiting Selfcare Function Cognitive Ability Level of Alertness Alert Patient Orientation Name,Place,Situation Attention Span Ability Capable of Focused Attention, Capable of Sustained Attention Ability to Follow Commands Able to Follow One Step Commands Cognitive Comments Cognitive Assessment Comments Pt able to follow commands for ADL and mobility needs. OT- Vision and Hearing OT- Vision Assessment Vision Assessment Comments Pt wears glasses for crocheting, pt has hear aid as well. M7 OT- IP Mobility and Balance Start: 01/12/23 12:18 Freq: Status: Active Protocol: Document 01/12/23 09:07 [facility] (Rec: 01/12/23 12:48 [facility] [id number]) OT- Bed Mobility Assessment Rolling Level of Assistance Contact Guard Assistance Supine to Sit Supine to Sit Assist Standby Assistance OT-Transfer Assessment Sit to and From Stand Sit to and from Stand Standby Assistance Comments Mobility Comments Pt CGA to get out of bed with increased time and HOB up. Pt 's BP 147/57 supine, 153/63 sitting, and standing dropped to 122/49 and 110/59 and feeling dizzy. Able to notify the hospitalist and nursing. Pt having to lie back down. OT- Balance Assessment Sitting Balance and Reactions Static Sitting Balance Ability Good Standing Balance and Reactions Static Standing Balance Ability Fair M9 OT- IP Assessment and Plan Start: 01/12/23 12:18 Freq: Status: Active Protocol: Document 01/12/23 09:07 [facility] (Rec: 01/12/23 12:48 [facility] [id number]) OT Summary Assessment and Plan Potential Rehabilitation Potential Good Analytic Complexity at Evaluation Moderate Summary OT Impairments Pain,Balance,Functional Mobility,Grooming,Dressing, Toileting,Bathing,Toilet Transfers,Shower Transfers, Activity Tolerance Progress Towards Goals Slow Progress due to Medical Issues,Slow Progress due to Activity Tolerance Assessment Summary Pt MOD complexity and main barriers are pain, decreased activity tolerance, and having orthostatic BP especially while standing at this time. Pt has a supportive family to be able to assist pt 24/7 at home and would also benefit from home health. Goals Self-Feeding Goal Independent Grooming Goal Independent Dressing Goal Minimal Assistance Toileting Goal Independent Bathing Goal Minimal Assistance Toilet Transfer Goal Independent Shower Transfer Goal Standby Assistance Days to Meet Goals 7 Frequency of Treatment Frequency Of Treatment Once a Day Treatment Plan OT Treatment Plan ADL Training,Functional Mobility,Patient/Family Education,Discharge Planning Other Treatment Recommendations and Next Stand at sink for ADL needs. Treatment Focus Discharge Recommendations OT Discharge Recommendations Home with 24/7 Assist Available,Home Health Transportation Needs at Discharge Private Vehicle
--- NOTE | 2023-01-12 09:50 | PT-IP ANOTE ---
Will hold evaluation this morning. Pt is still orthostatic with Occupational Therapy this morning. Will follow up this afternoon.
[2023-01-12] MEDS: ASPIRIN EC 81 MG TABLET PO (10:40)
[2023-01-12] MEDS: HEPARIN 5,000 UNIT/ML VIAL 5000 UNIT SUBCUT ×2 (10:41→20:52)
[2023-01-12] MEDS: AZITHROMYCIN 500 MG in DEXTROSE 5% IN WATER 250 ML 250 MG IV (10:41)
[2023-01-12] MEDS: METOPROLOL IR 50 MG TABLET PO ×3 (10:41→20:53)
[2023-01-12] MEDS: predniSONE 20 MG TABLET 40 MG PO (10:41)
[2023-01-12] MEDS: ESCITALOPRAM 10 MG TABLET 20 MG PO (10:41)
[2023-01-12] MEDS: PANTOPRAZOLE DR 40 MG TABLET PO (10:42)
[2023-01-12] MEDS: RANOLAZINE 500 MG TAB.ER.12H PO ×2 (10:43→20:53)
--- NOTE | 2023-01-12 12:18 | P.PN_ITS ---
Subjective Subjective Date Patient Seen: 01/12/23 Time Patient Seen: 08:00 Interval history: She still feels quite short of breath even with just moving around in bed which is not normal for her. She felt dizzy with standing and orthostatic blood pressures showed a drop in her standing pressure. Exam Vital Signs (past 8 hours): - 01/12/23 07:58 01/12/23 08:40 01/12/23 11:24 Temperature 97.2 F L 97.9 F Pulse Rate 72 75 Respiratory Rate 18 18 Blood Pressure 187/93 H 143/38 H Pulse Oximetry 97 99 96 Oxygen Delivery Method Nasal Cannula Oxygen Flow Rate 2 2 2 Fraction of Inspired Oxygen 28 Fraction of Inspired Oxygen 28 SaO2/FiO2 Ratio 346 Oxygen Delivery Method Nasal Cannula Oxygen Flow Rate 2 Narrative Exam Narrative: GEN: no acute distress\ CV: regular rate and rhythm, no murmurs PULM: coarse breath sounds bilaterally ABD: soft, nontender, nondistended, no organomegaly Objective Labs 01/12/23 04:46 01/12/23 04:46 Labs: Laboratory Results - last 24 hr 01/11/23 01/11/23 01/11/23 12:55 12:55 12:55 WBC 6.2 RBC 5.14 Hgb 12.3 Hct 37.9 MCV 73.8 L MCH 24.0 L MCHC 32.5 RDW 21.0 H Plt Count 215 Neut % (Auto) 53.9 Lymph % (Auto) 32.9 [place] % (Auto) 10.1 Eos % (Auto) 2.7 Baso % (Auto) 0.4 Neut # (Auto) 3300 Lymph # (Auto) 2000 [place] # (Auto) 600 Eos # (Auto) 200 Baso # (Auto) 0 RBC Morphology See below Anisocytosis 2+ H Microcytosis 1+ H PT 12.5 INR 1.1 APTT 27 Sodium 139 Potassium 3.8 Chloride 102 Carbon Dioxide 29 BUN 13 Creatinine 1.20 H Estimated GFR 44 L BUN/Creatinine Ratio 10.8 Glucose 121 H Calcium 8.7 Magnesium 2.1 Total Bilirubin 0.6 AST 23 ALT 9 Alkaline Phosphatase 60 Total Creatine Kinase 30 Troponin I 0.021 NT-Pro-B Natriuret Pep Total Protein 6.8 Albumin 3.7 Globulin 3.1 Albumin/Globulin Ratio 1.2 Lipase 97 TSH Urine RBC Urine WBC Ur Squamous Epith Cells Urine Bacteria Ur Culture Indicated? Micro UA Comment SARS-CoV-2 (PCR) 01/11/23 01/11/23 01/11/23 12:55 12:55 13:02 WBC RBC Hgb Hct MCV MCH MCHC RDW Plt Count Neut % (Auto) Lymph % (Auto) [place] % (Auto) Eos % (Auto) Baso % (Auto) Neut # (Auto) Lymph # (Auto) [place] # (Auto) Eos # (Auto) Baso # (Auto) RBC Morphology Anisocytosis Microcytosis PT INR APTT Sodium Potassium Chloride Carbon Dioxide BUN Creatinine Estimated GFR BUN/Creatinine Ratio Glucose Calcium Magnesium Total Bilirubin AST ALT Alkaline Phosphatase Total Creatine Kinase Troponin I NT-Pro-B Natriuret Pep 1080 H Total Protein Albumin Globulin Albumin/Globulin Ratio Lipase TSH 2.19 Urine RBC Urine WBC Ur Squamous Epith Cells Urine Bacteria Ur Culture Indicated? Micro UA Comment SARS-CoV-2 (PCR) Negative 01/11/23 01/12/23 01/12/23 14:00 04:46 04:46 WBC 5.9 RBC 5.10 Hgb 12.3 Hct 37.7 MCV 74.0 L MCH 24.1 L MCHC 32.6 RDW 20.9 H Plt Count 222 Neut % (Auto) 77.8 H D Lymph % (Auto) 20.1 L [place] % (Auto) 1.5 L Eos % (Auto) 0.1 L Baso % (Auto) 0.5 Neut # (Auto) 4600 Lymph # (Auto) 1200 [place] # (Auto) 100 Eos # (Auto) 0 Baso # (Auto) 0 RBC Morphology See below Anisocytosis 1+ H Microcytosis PT INR APTT Sodium 137 Potassium 3.9 Chloride 104 Carbon Dioxide 27 BUN 12 Creatinine 1.14 H Estimated GFR 47 L BUN/Creatinine Ratio 10.5 Glucose 150 H Calcium 8.7 Magnesium Total Bilirubin AST ALT Alkaline Phosphatase Total Creatine Kinase Troponin I NT-Pro-B Natriuret Pep Total Protein Albumin Globulin Albumin/Globulin Ratio Lipase TSH Urine RBC None seen Urine WBC None seen Ur Squamous Epith Cells None seen Urine Bacteria None seen Ur Culture Indicated? Cult not indicated Micro UA Comment Microscopic normal SARS-CoV-2 (PCR) [facility] Medical History (Updated 01/11/23 @ 15:22 by Valerio East DO) Cardiac arrest Chest pain Coronary artery disease Diastolic heart failure Hyperlipidemia Hypertension Left hamstring muscle strain NSTEMI (non-ST elevated myocardial infarction) Skin cancer UTI (urinary tract infection) Surgical History H/O right heart catheterization History of appendectomy History of breast implant removal History of breast surgery History of cholecystectomy History of coronary artery stent placement History of total abdominal hysterectomy Family History Father Hypertension Diabetes mellitus Mother Hypertension [place] (myocardial infarction) Sister [place] (myocardial infarction) S/P CABG x 4 Social History household members: children Smoking Status: Never smoker Assessment & Plan Assessment & Plan narrative: # SOB due to suspected ILD flare -patient states her lungs burn -has become acutely short of breath, cough with sputum production -continue steroids, start azithromycin and nebulizers -if not improving consider CT chest and pulm consult # acute on chronic hypoxic resp failure -normally on 2L NC due to her ILD, initially requiring 3L, wean as able -CXR with no acute process, cardiomegaly -continue O2 to keep sats >90% # lightheadedness, orthostatic -occurs at rest mildly and alot when standing up -likely hypovolemic -hold lasix -continue IVF # diffuse muscle pain, weakness -start scheduled tylenol -PT/OT evals # FRANCESCA on CKD stage 2 -suspect secondary to hypovolemia -recheck in am -hold lasix # CHFpEF -hold lasix for now -continue ranolazine -repeat echo ordered and showed normal EF, good RV function, small pericardial effusion with no indication of tamponade # Depression/anxiety -continue ssri and xanax PRN Quality VTE Deep Vein Thrombosis/Pulmonary Embolism Present on Admission: No
[2023-01-12] MEDS: SODIUM CHLORIDE 0.9% 500 ML 1000 ML IV (13:30)
[2023-01-12] MEDS: SODIUM CHLORIDE 0.9% 1,000 ML 100 ML IV (14:23)
--- NOTE | 2023-01-12 17:03 | PT.IIE ---
Surgical History (Last Reviewed 12/21/22 @ 22:41 by Zarina Gu DO) H/O right heart catheterization History of appendectomy History of breast implant removal History of breast surgery History of cholecystectomy History of coronary artery stent placement History of total abdominal hysterectomy Medical History (Last Reviewed 01/11/23 @ 12:39 by Valerio East DO) Cardiac arrest Chest pain Coronary artery disease Diastolic heart failure Hyperlipidemia Hypertension Left hamstring muscle strain NSTEMI (non-ST elevated myocardial infarction) Skin cancer UTI (urinary tract infection) Physical Therapy Inpatient Evaluation/Re-Eval M1 PT/OT-IP Prior Functional Status Start: 01/12/23 08:38 Freq: NEEDED Status: Active Protocol: Document 01/12/23 17:03 [facility] (Rec: 01/12/23 17:18 [facility] [id number]) Medical Review Prior Functional Status Medical History Reviewed Yes Diet/Fluid Consistency Regular Communication Independent Mobility and Gait Use of 4ww at all times. Her distances have been limited by dizziness and shortness of breath lately. She sits on her Activities of Daily Living and IADL's Pt has assist for socks and just sponges off at home. Pt has assist with bills , laundry and meals. Prior Functional Level (Other details) hx of left LE weakness with intermittent knee buckling Social History Household Members children Living Arrangements Mobile home Number of Floors (Floors) One Floor Number of Stairs To Enter/Railing? Pt has 4 steps with bilateral rails to enter. 1 step to the toilet. Home Environment Standard Height Toilet,Walk in Shower Home Equipment Four Wheel Walker,Bedside Commode,Back Digger Operator,Sock Aid,Grab Bars Near Toilet,Grab Bars In Shower Additional Social History Comment Pt has a adjustable bed and usually gets up on the right side with the HOB up. She uses oxygen at home @2 LPM . Pt lives with her Son who does not work. Her Daughter lives close and also helps with her care. M2 PT-IP Current Condition Start: 01/12/23 08:38 Freq: NEEDED Status: Active Protocol: Document 01/12/23 17:03 [facility] (Rec: 01/12/23 17:18 [facility] [id number]) Physical Therapy Current Condition Current Condition Evaluation Date 01/12/23 Treatment Diagnosis dizziness/weakness, impaired gait Onset Date 01/11/23 M3 PT-IP Subjective Start: 01/12/23 08:38 Freq: NEEDED Status: Active Protocol: Document 01/12/23 17:03 [facility] (Rec: 01/12/23 17:58 [facility] [id number]) Subjective Physical Therapy Visit Type Type Initial Evaluation Visit Start Time 16:00 Visit Stop Time 17:03 Total Visit Minutes 63 Number of OIL DEVELOPER Visits 0 Physical Therapy Visit Comments Patient Comments She reports she is still having dizziness when up moving, it is constant. She also gets dizzy when getting into bed but it is more of a spinning dizziness that gradually resolves. Patient Goals Discharge home with family to assist Therapy Pain Assessment Pain When Pain Assessed During Mobility Pain Present Pain Present Denied Pain M4 PT-IP Mobility and Gait Start: 01/12/23 08:38 Freq: NEEDED Status: Active Protocol: Document 01/12/23 17:03 [facility] (Rec: 01/12/23 17:58 [facility] [id number]) PT-Bed Mobility Assessment Rolling Type of Rolling Bilateral Level of Assist Independent Supine to Sit Supine to Sit Independent Sit to Supine Sit to Supine Independent Scooting Scooting to Edge of Bed Independent Scooting Up and Down in Bed Minimal Assistance PT-Transfer Assessment Sit to and From Stand Sit to and from Stand Standby Assistance,Use of Upper Extremities Equipment Transfer Assistive Device Gait Belt,Front Wheeled Walker Transfers Transfer Destination Chair,Wheelchair Transfer Technique Stand Step Pivot Transfer Ability Level of Assist Standby Assistance,Use of Upper Extremities Comments Mobility Comments Pt up to toilet with nursing at the start of this visit. Pt having constant dizziness. Vital signs: sitting 142/49, HR 75 (taken on right forearm) standing 154/68, HR 71 Gait Assessment Gait Gait Assistance Required: Standby Assistance Distance (Feet) 30 Assistive Devices Assistive Device Gait Belt,4 Wheeled Walker Gait Deviations General Gait Pattern Flexed Trunk Factors Limiting Gait Function Factors Limiting Gait Function Decreased Activity Tolerance Comments Gait Comments constant dizziness when up walking, no losses of balance observed, pt reports dizziness and fatigue limit her distance at this time, she describes feeling hot/sweaty this afternoon O2 sats on room air are 93% during this visit. PT-Balance Assessment Sitting Balance and Reactions Static Sitting Balance Ability Normal Dynamic Sitting Balance Ability Good Standing Balance and Reactions Static Standing Balance Ability Good Dynamic Standing Balance Ability Good Device Used 4WW Functional Assessments Other Functional Tests Performed Pt reports spinning dizziness with rolling to the left in bed with mild nystagmus, symptoms slow to fatigue. She reports very mild dizziness rolling to right without nystagmus that resolves quickly. M5 PT-IP Objective Assessments Start: 01/12/23 08:38 Freq: NEEDED Status: Active Protocol: Document 01/12/23 17:03 [facility] (Rec: 01/12/23 17:58 [facility] [id number]) Orientation Orientation/Cognition Level of Alertness Alert Orientation Name,Age,Birthday,Month,Date, Year,Day of Week,Place, Situation Language Function Ability No Deficits Noted Safety Awareness Understands Safety Issues Memory Description No Deficits Noted Gross Range of Motion Upper Extremity ROM Assessment Bilaterally Impaired Impairments left shoulder elevation to 70 degrees, right shoulder 90 degrees Lower Extremity ROM Assessment Within Functional Limits Strength Upper Extremity Strength Assessment Bilaterally Impaired Lower Extremity Strength Assessment Left Impaired Hip flex 4/5 Knee 5/5 Ankle DF 4/5 Comments Strength Comments no pain in LE's with muscle testing, pain in left shoulder with active elevation Coordination Assessment Gross Coordination Gross Coordination WNL Sensation Assessment Sensation Gross Sensation WNL Muscle Tone Muscle Tone WNL Yes M6 PT-IP Treatment Start: 01/12/23 08:38 Freq: NEEDED Status: Active Protocol: Document 01/12/23 17:03 [facility] (Rec: 01/12/23 17:58 [facility] [id number]) Physical Therapy Treatment Education Education Provided Safety Equipment Issued Equipment Type and Company pt has her 4WW from home in her room Other Treatments Other Treatment Performed Her Daughter is present and participated in education for safety M7 PT-IP Assessment and Plan Start: 01/12/23 08:38 Freq: NEEDED Status: Active Protocol: Document 01/12/23 17:03 [facility] (Rec: 01/12/23 17:58 [facility] [id number]) PT Summary Assessment and Plan Potential Rehabilitation Potential Good Status of Condition at Evaluation Evolving Summary Impairments Pain,ROM,Strength,Balance, Transfers,Gait,Activity Tolerance Assessment Summary Lida is alert and up with nursing to the bathroom. She describes constant dizziness while up moving that did not resolve nor get worse. Her vital signs are negative for orthostatic hypotension at this time. She was able to ambulate with her 4WW in the room but did not feel safe to advance to gait in the bowen. Pt gets short of breath easily with activity with a history of pulmonary fibrosis and oxygen used as needed. Noted pt also has dizziness when in bed with it worse rolling to the left compared to the right . She may need vestibular rehab once she is more medically stable. Will plan for discharge home with her family once medically cleared. She has a good support system at home. Goals Transfer Goal Independent,Front Wheeled Walker Gait Goal Independent,Four Wheel Walker Gait Distance 150 feet Other Goals up/down 4 steps with bilateral rails with SBA and help for 4WW Days to Meet Goals 4 Frequency of Treatment Frequency Of Treatment Once a Day Treatment Plan Physical Therapy Treatment Plan Transfer Training,Gait Training,Therapeutic Exercise, Balance Retraining,Discharge Planning,Neuromuscular Re-ed Other Recommendations and Next Treatment vestibular assessment as Focus tolerated by pt and medically appropriate with cardiac status Precautions Other Precautions dizziness when up moving, oxygen use as needed Recommendations To Nursing Amount of Assist Needed Standby Assistance Discharge Recommendations PT Discharge Recommendations Home with Assistance,Home Health Other Discharge Recommendations has help from family Transportation Needs at Discharge Private Vehicle
--- NOTE | 2023-01-12 18:21 | PC.NURSE ---
Pt A/O sba to BR w/o incidence. Shortness of breath on excertion SpO2 96, lungs slightly diminished. Call light w/in reach, bed alarm on for pt safety. Continue w/plan of care.
[2023-01-12] MEDS: ATORVASTATIN 20 MG TABLET 40 MG PO (20:52)
[2023-01-12] MEDS: SENNOSIDES 8.6 MG TABLET PO (20:53)
[2023-01-12] MEDS: MELATONIN 3 MG TABLET 6 MG PO (20:53)
[2023-01-12] MEDS: ALPRAZolam 0.5 MG TABLET PO (20:53)
[2023-01-12] MEDS: ALBUTEROL/IPRATROPIUM 3 ML AMPUL INH (21:37)
[2023-01-13] VITALS (9 sets, daily range): BP systolic 133–163; BP diastolic 44–56; PULSE 55–85; RESP 18–20; TEMP 35.6–36.3; O2SAT 95–99
[2023-01-13 05:50] LABS: Add Manual Diff / Slide Review NO; Basophils Absolute Auto 0 /uL (0-100); Basophils Percent Auto 0.4 % (0-2); Eosinophils Absolute Auto 100 /uL (0-450); Eosinophils Percent Auto 1.7 % (2-4); Hematocrit 34.4 % (36-46); Hemoglobin 11.1 g/dL (12.0-16.0); Lymphocytes Absolute Auto 3200 /uL (1100-4500); Lymphocytes Percent Auto 43.6 % (25-40); Mean Corpuscular HGB Conc 32.2 % (30-36); Mean Corpuscular Volume 74.5 fL (80-100); Monocytes Absolute Auto 700 /uL (0-900); Monocytes Percent Auto 9.3 % (3-14); Neutrophils Absolute Auto 3300 /uL (1500-7000); Platelet Count 221 X10^3/uL (150-400); Red Blood Cell Count 4.62 X10^6/uL (4.0-5.2); Red Cell Distribution Width 20.9 % (11.6-14.8); White Blood Cell Count 7.3 X10^3/uL (4.5-11.0)
[2023-01-13 05:58] LABS: BUN Creatinine Ratio 17.1 (6-22); Blood Urea Nitrogen 21 mg/dL (7-17); Calcium 9.1 mg/dL (8.4-10.2); Carbon Dioxide 29 mmol/L (22-32); Chloride 104 mmol/L (98-107); Estimated Glomerular Filt Rate 43 mL/min (>60); Glucose 141 mg/dL (80-110); HEMOLYSIS < 15 (0-50); Potassium 3.7 mmol/L (3.4-5.1); Sodium 137 mmol/L (137-145)
[2023-01-13 06:19] LABS: Anisocytosis 1+
[2023-01-13] MEDS: ACETAMINOPHEN 325 MG TABLET 650 MG PO ×2 (06:26→14:04)
[2023-01-13] MEDS: RANOLAZINE 500 MG TAB.ER.12H PO ×2 (08:56→20:36)
[2023-01-13] MEDS: ESCITALOPRAM 10 MG TABLET 20 MG PO (08:56)
[2023-01-13] MEDS: ASPIRIN EC 81 MG TABLET PO (08:56)
[2023-01-13] MEDS: predniSONE 20 MG TABLET 40 MG PO (08:56)
[2023-01-13] MEDS: METOPROLOL IR 50 MG TABLET PO ×3 (08:57→20:36)
[2023-01-13] MEDS: HEPARIN 5,000 UNIT/ML VIAL 5000 UNIT SUBCUT ×2 (08:57→20:36)
[2023-01-13] MEDS: PANTOPRAZOLE DR 40 MG TABLET PO (08:57)
--- NOTE | 2023-01-13 09:22 | PT.IPTN ---
Physical Therapy Treatment Note M2 PT-IP Current Condition Start: 01/12/23 08:38 Freq: NEEDED Status: Active Protocol: Document 01/12/23 17:03 DLM (Rec: 01/12/23 17:18 DLM [id number]) Physical Therapy Current Condition Current Condition Evaluation Date 01/12/23 Treatment Diagnosis dizziness/weakness, impaired gait Onset Date 01/11/23 M3 PT-IP Subjective Start: 01/12/23 08:38 Freq: NEEDED Status: Active Protocol: Document 01/13/23 10:06 TS (Rec: 01/13/23 10:26 TS [id number]) Subjective Physical Therapy Visit Type Type Treatment Note Visit Start Time 09:22 Visit Stop Time 10:00 Total Visit Minutes 38 Number of LICENSING OFFICER Visits 1 Physical Therapy Visit Comments Patient Comments Pt found resting in bed, daughter in room, agreeable to PT. Patient Goals Discharge home with family to assist M4 PT-IP Mobility and Gait Start: 01/12/23 08:38 Freq: NEEDED Status: Active Protocol: Document 01/13/23 10:06 TS (Rec: 01/13/23 10:26 TS [id number]) PT-Bed Mobility Assessment Rolling Type of Rolling Roll to Left Level of Assist Independent Supine to Sit Supine to Sit Independent Sit to Supine Sit to Supine Minimal Assistance Scooting Scooting to Edge of Bed Independent Scooting Up and Down in Bed Moderate Assistance PT-Transfer Assessment Sit to and From Stand Sit to and from Stand Standby Assistance,Use of Upper Extremities Equipment Transfer Assistive Device Gait Belt,4 Wheeled Walker Comments Mobility Comments Bp taken in supine 127/35, Spo2 95% on RA prior to mobility. Supine to sit HOB elevated 50D SBA with use of handrail. Sit to stand with 4WW SBA, BP taken in standing 141/53, pt reports some slight dizziness. She ambulated in 4WW ~40'SBA, pt became SOB, requested to sit for rest break, Spo2 91% on RA. pt continued to ambulate ~20 more ft SBA, took another rest break before stairs. She performed steps on step stool X4 CGA with use of B handrails , pt c/o weakness in LLE, provided cues for leading with R foot ascending and L for descending. Pt became more dizzy, c/o a headache and weakness, pt requested back to bed. Sit to supine Mira for LEs into bed, LEs are swollen. Pt was left in bed with call light nearby, daughter in room , all needs met, RN notified. Gait Assessment Gait Gait Assistance Required: Standby Assistance Distance (Feet) 60 Assistive Devices Assistive Device Gait Belt,4 Wheeled Walker Gait Deviations General Gait Pattern Decreased Stride Length, Decreased Feet Clearance, Flexed Trunk,Wide Based Gait Factors Limiting Gait Function Factors Limiting Gait Function Decreased Activity Tolerance, Decreased Strength,Respiratory Distress Comments Gait Comments Pt c/o less dizziness when up ambulating but increased after performing stairs. See mobility comments. Stair Climbing Assessment Evaluation Level of Assist On Stairs Contact Guard Assistance Devices Stair Climbing Assistive Devices Left Railing,Right Railing Technique/Endurance Stair Climbing Direction Ascend and Descend Stair Climbing Technique Step to Step Number of Steps Climbed 4 Comments Stair Climbing Comments See mobility comments. PT-Balance Assessment Sitting Balance and Reactions Static Sitting Balance Ability Normal Dynamic Sitting Balance Ability Good Standing Balance and Reactions Static Standing Balance Ability Good Dynamic Standing Balance Ability Good Device Used 4WW M5 PT-IP Objective Assessments Start: 01/12/23 08:38 Freq: NEEDED Status: Active Protocol: Document 01/12/23 17:03 DLM (Rec: 01/12/23 17:58 DL [id number]) Orientation Orientation/Cognition Level of Alertness Alert Orientation Name,Age,Birthday,Month,Date, Year,Day of Week,Place, Situation Language Function Ability No Deficits Noted Safety Awareness Understands Safety Issues Memory Description No Deficits Noted Gross Range of Motion Upper Extremity ROM Assessment Bilaterally Impaired Impairments left shoulder elevation to 70 degrees, right shoulder 90 degrees Lower Extremity ROM Assessment Within Functional Limits Strength Upper Extremity Strength Assessment Bilaterally Impaired Lower Extremity Strength Assessment Left Impaired Hip flex 4/5 Knee 5/5 Ankle DF 4/5 Comments Strength Comments no pain in LE's with muscle testing, pain in left shoulder with active elevation Coordination Assessment Gross Coordination Gross Coordination WNL Sensation Assessment Sensation Gross Sensation WNL Muscle Tone Muscle Tone WNL Yes M6 PT-IP Treatment Start: 01/12/23 08:38 Freq: NEEDED Status: Active Protocol: Document 01/13/23 10:06 TS (Rec: 01/13/23 10:26 TS [id number]) Physical Therapy Treatment Education Education Provided Safety Equipment Issued Equipment Type and Company pt has her 4WW from home in her room M7 PT-IP Assessment and Plan Start: 01/12/23 08:38 Freq: NEEDED Status: Active Protocol: Document 01/13/23 10:06 TS (Rec: 01/13/23 10:26 TS [id number]) PT Summary Assessment and Plan Potential Rehabilitation Potential Good Summary Impairments Pain,ROM,Strength,Balance, Transfers,Gait,Activity Tolerance Progress Towards Goals Slow Progress due to Medical Issues,Slow Progress due to Activity Tolerance Assessment Summary Pt is making some progress with her mobility but remains limited by her ongoing medical issues and activity tolerance . She is Ind for most bed mobility but required Mira for LEs into bed and ModA for scooting higher into bed. She continues to ambulate short distance with gait requiring rest breaks due to SOB. She progressed her steps to x4 CGA with B rails, requires some cueing for leading with strong leg when ascending. Her BP in supine was 127/35, increased to 141/53 in standing. She did c/o some slight dizziness intially in standing, progressed to more significant dizziness after stairs and c/ o a headache. Spo2 at rest 95% on RA desats to low 90's on Ra with mobility. PT continues to recommend home with assist and HHPT. Goals Transfer Goal Independent,Front Wheeled Walker Gait Goal Independent,Four Wheel Walker Gait Distance 150 feet Other Goals up/down 4 steps with bilateral rails with SBA and help for 4WW Days to Meet Goals 4 Frequency of Treatment Frequency Of Treatment Once a Day Treatment Plan Physical Therapy Treatment Plan Transfer Training,Gait Training,Therapeutic Exercise, Balance Retraining,Discharge Planning,Neuromuscular Re-ed Other Recommendations and Next Treatment vestibular assessment as Focus tolerated by pt and medically appropriate with cardiac status Precautions Other Precautions dizziness when up moving, oxygen use as needed Recommendations To Nursing Amount of Assist Needed 1 Person Assist Discharge Recommendations PT Discharge Recommendations Home with Assistance,Home Health Other Discharge Recommendations has help from family Transportation Needs at Discharge Private Vehicle
[2023-01-13] MEDS: AZITHROMYCIN 500 MG in DEXTROSE 5% IN WATER 250 ML 250 MG IV (10:09)
[2023-01-13] MEDS: ALBUTEROL/IPRATROPIUM 3 ML AMPUL INH ×3 (10:52→19:22)
--- NOTE | 2023-01-13 14:51 | PM.PN.1 ---
Subjective Subjective Date Patient Seen: 01/12/23 Interval history: Slightly better today, still a bit dizzy when moving around. Her breathing at rest is improved, but with exertion continues to remain much worse than normal. Exam Vital Signs (past 8 hours): - 01/13/23 08:30 01/13/23 09:21 01/13/23 10:52 Temperature 97.3 F L Pulse Rate 60 58 L Respiratory Rate 20 18 Blood Pressure 163/56 H Pulse Oximetry 99 98 Oxygen Delivery Method Room Air Nasal Cannula Oxygen Flow Rate 2 2 01/13/23 12:00 Temperature 97.3 F L Pulse Rate 61 Respiratory Rate 18 Blood Pressure 133/44 L Pulse Oximetry 99 Oxygen Delivery Method Oxygen Flow Rate 2 Fraction of Inspired Oxygen 28 SaO2/FiO2 Ratio 346 Oxygen Delivery Method Nasal Cannula Oxygen Flow Rate 2 Narrative Exam Narrative: GEN: no acute distress\ CV: regular rate and rhythm, no murmurs PULM: coarse breath sounds bilaterally ABD: soft, nontender, nondistended, no organomegaly Objective Labs 01/13/23 04:55 01/13/23 04:55 Labs: Laboratory Results - last 24 hr 01/13/23 01/13/23 04:55 04:55 WBC 7.3 RBC 4.62 Hgb 11.1 L Hct 34.4 L MCV 74.5 L MCH 24.0 L MCHC 32.2 RDW 20.9 H Plt Count 221 Neut % (Auto) 45.0 L D Lymph % (Auto) 43.6 H D [place] % (Auto) 9.3 Eos % (Auto) 1.7 L Baso % (Auto) 0.4 Neut # (Auto) 3300 Lymph # (Auto) 3200 [place] # (Auto) 700 Eos # (Auto) 100 Baso # (Auto) 0 RBC Morphology See below Anisocytosis 1+ H Sodium 137 Potassium 3.7 Chloride 104 Carbon Dioxide 29 BUN 21 H Creatinine 1.23 H Estimated GFR 43 L BUN/Creatinine Ratio 17.1 Glucose 141 H Calcium 9.1 PFSH Medical History (Updated 01/11/23 @ 15:22 by Valerio East DO) Cardiac arrest Chest pain Coronary artery disease Diastolic heart failure Hyperlipidemia Hypertension Left hamstring muscle strain NSTEMI (non-ST elevated myocardial infarction) Skin cancer UTI (urinary tract infection) Surgical History H/O right heart catheterization History of appendectomy History of breast implant removal History of breast surgery History of cholecystectomy History of coronary artery stent placement History of total abdominal hysterectomy Family History Father Hypertension Diabetes mellitus Mother Hypertension [place] (myocardial infarction) Sister [place] (myocardial infarction) S/P CABG x 4 Social History household members: children Smoking Status: Never smoker Assessment & Plan Assessment & Plan narrative: # acute on chronic hypoxic resp failure secondary to ILD flare -normally on 2L NC due to her ILD, initially requiring 3L, wean as able. Now improved to 1L at rest. Still with worsened dyspnea on exertion with activity today but improving. -continue PT/OT. -CXR with no acute process, cardiomegaly. TTE with normal EF, no evidence of CHF. Patient became orthostatic with attempted diuresis. -Goal O2 89-96% while on supplemental therapy. -continue oral prednisone and azithro given continued improvement. # lightheadedness, orthostatic hypotension -likely due to furosemide for possible CHF, improving while being held. - TTE unremarkable # diffuse muscle pain, weakness -start scheduled tylenol -PT/OT evals # FRANCESCA on CKD stage 2 -suspect secondary to hypovolemia -creatinine has been stable around 1.2, unclear if this represents progression to CKD stage III. # CHFpEF, acute ruled out. -hold lasix for now -continue ranolazine -repeat echo ordered and showed normal EF, good RV function, small pericardial effusion with no indication of tamponade # Depression/anxiety -continue ssri and xanax PRN Code: Full Dispo: plan for home, timing in 1-2 days with symptom improvement. Additional history obtained from family at bedside today regarding her activity level. Discussed with bedside staff and RN. Discussed with previous hospitalist. Quality VTE Deep Vein Thrombosis/Pulmonary Embolism Present on Admission: No
--- NOTE | 2023-01-13 15:50 | OT.IPNOTE ---
Pt getting a breathing treatment.
[2023-01-13] MEDS: ALPRAZolam 0.5 MG TABLET PO (20:36)
[2023-01-13] MEDS: ATORVASTATIN 20 MG TABLET 40 MG PO (20:36)
[2023-01-14] VITALS (7 sets, daily range): BP systolic 132–153; BP diastolic 50–59; PULSE 52–77; RESP 17–20; TEMP 35.7–36.7; O2SAT 93–99
[2023-01-14] MEDS: ACETAMINOPHEN 325 MG TABLET 650 MG PO ×2 (02:31→16:13)
[2023-01-14 05:25] LABS: BUN Creatinine Ratio 19.4 (6-22); Blood Urea Nitrogen 19 mg/dL (7-17); Calcium 9.1 mg/dL (8.4-10.2); Carbon Dioxide 29 mmol/L (22-32); Chloride 105 mmol/L (98-107); Estimated Glomerular Filt Rate 57 mL/min (>60); Glucose 148 mg/dL (80-110); HEMOLYSIS < 15 (0-50); Sodium 137 mmol/L (137-145)
[2023-01-14 05:30] LABS: Add Manual Diff / Slide Review NO; Basophils Absolute Auto 0 /uL (0-100); Basophils Percent Auto 0.3 % (0-2); Eosinophils Absolute Auto 0 /uL (0-450); Eosinophils Percent Auto 0.2 % (2-4); Hematocrit 32.7 % (36-46); Hemoglobin 10.7 g/dL (12.0-16.0); Lymphocytes Absolute Auto 2100 /uL (1100-4500); Lymphocytes Percent Auto 25.2 % (25-40); Mean Corpuscular HGB Conc 32.9 % (30-36); Mean Corpuscular Hemoglobin 24.4 PG (26-34); Mean Corpuscular Volume 74.2 fL (80-100); Monocytes Absolute Auto 600 /uL (0-900); Monocytes Percent Auto 7.8 % (3-14); Neutrophils Absolute Auto 5500 /uL (1500-7000); Neutrophils Percent Auto 66.5 % (50-75); Platelet Count 214 X10^3/uL (150-400); Red Cell Distribution Width 21.2 % (11.6-14.8); White Blood Cell Count 8.3 X10^3/uL (4.5-11.0)
[2023-01-14 05:49] LABS: Anisocytosis 2+; Microcytosis 1+
[2023-01-14] MEDS: ASPIRIN EC 81 MG TABLET PO (09:35)
[2023-01-14] MEDS: predniSONE 20 MG TABLET 40 MG PO (09:35)
[2023-01-14] MEDS: AZITHROMYCIN 500 MG in DEXTROSE 5% IN WATER 250 ML 250 MG IV (09:35)
[2023-01-14] MEDS: ESCITALOPRAM 10 MG TABLET 20 MG PO (09:36)
[2023-01-14] MEDS: PANTOPRAZOLE DR 40 MG TABLET PO (09:36)
[2023-01-14] MEDS: HEPARIN 5,000 UNIT/ML VIAL 5000 UNIT SUBCUT ×2 (09:36→20:21)
[2023-01-14] MEDS: METOPROLOL IR 50 MG TABLET PO ×2 (09:36→20:22)
[2023-01-14] MEDS: RANOLAZINE 500 MG TAB.ER.12H PO ×2 (09:36→20:21)
--- NOTE | 2023-01-14 13:10 | P.PN_ITS ---
Subjective Subjective Date Patient Seen: 01/12/23 Interval history: Slightly better today, still a bit dizzy when moving around and she feels weak. Her breathing at rest is improved, but with exertion continues to remain worse than normal. Continues to have pain with cough. Exam Vital Signs (past 8 hours): - 01/14/23 08:00 01/14/23 08:45 01/14/23 12:00 Temperature 96.4 F L 96.2 F L Pulse Rate 57 L 52 L Respiratory Rate 18 19 Blood Pressure 153/59 H 138/50 L Pulse Oximetry 99 97 Oxygen Delivery Method Nasal Cannula Oxygen Flow Rate 2 2 01/14/23 07:02 Temperature Pulse Rate Respiratory Rate Blood Pressure Pulse Oximetry 98 Oxygen Delivery Method Nasal Cannula Oxygen Flow Rate 2 Fraction of Inspired Oxygen 24 SaO2/FiO2 Ratio 395 Oxygen Delivery Method Nasal Cannula Oxygen Flow Rate 2 Narrative Exam Narrative: GEN: no acute distress\ CV: regular rate and rhythm, no murmurs PULM: coarse breath sounds bilaterally ABD: soft, nontender, nondistended, no organomegaly Objective Labs 01/14/23 05:00 01/14/23 05:00 Labs: Laboratory Results - last 24 hr 01/14/23 01/14/23 05:00 05:00 WBC 8.3 RBC 4.40 Hgb 10.7 L Hct 32.7 L MCV 74.2 L MCH 24.4 L MCHC 32.9 RDW 21.2 H Plt Count 214 Neut % (Auto) 66.5 D Lymph % (Auto) 25.2 [place] % (Auto) 7.8 Eos % (Auto) 0.2 L Baso % (Auto) 0.3 Neut # (Auto) 5500 Lymph # (Auto) 2100 [place] # (Auto) 600 Eos # (Auto) 0 Baso # (Auto) 0 RBC Morphology See below Anisocytosis 2+ H Microcytosis 1+ H Sodium 137 Potassium 4.0 Chloride 105 Carbon Dioxide 29 BUN 19 H Creatinine 0.98 Estimated GFR 57 L BUN/Creatinine Ratio 19.4 Glucose 148 H Calcium 9.1 PFSH Medical History (Updated 01/11/23 @ 15:22 by Valerio East DO) Cardiac arrest Chest pain Coronary artery disease Diastolic heart failure Hyperlipidemia Hypertension Left hamstring muscle strain NSTEMI (non-ST elevated myocardial infarction) Skin cancer UTI (urinary tract infection) Surgical History H/O right heart catheterization History of appendectomy History of breast implant removal History of breast surgery History of cholecystectomy History of coronary artery stent placement History of total abdominal hysterectomy Family History Father Hypertension Diabetes mellitus Mother Hypertension [place] (myocardial infarction) Sister [place] (myocardial infarction) S/P CABG x 4 Social History household members: children Smoking Status: Never smoker Assessment & Plan Assessment & Plan narrative: # acute on chronic hypoxic resp failure secondary to ILD flare -normally on 2L NC due to her ILD, initially requiring 3L, wean as able. Now improved to 1L at rest. Still with worsened dyspnea on exertion with activity today but improving. -continue PT/OT. -CXR with no acute process, cardiomegaly. TTE with normal EF, no evidence of CHF. Patient became orthostatic with attempted diuresis. -Goal O2 89-96% while on supplemental therapy. -continue oral prednisone and azithro given continued improvement. # lightheadedness, orthostatic hypotension -likely due to furosemide for possible CHF, improving while being held. - TTE unremarkable - continue to follow orthostatic vitals, if still continuing will need to start decreasing metoprolol dosing. # diffuse muscle pain, weakness -start scheduled tylenol, suspect due to orthostasis -PT/OT evals # FRANCESCA on CKD stage 2 -suspect secondary to hypovolemia -creatinine has been stable around 1.2, unclear if this represents progression to CKD stage III. # CHFpEF, acute ruled out. -hold lasix for now as noted above -continue ranolazine -repeat echo ordered and showed normal EF, good RV function, small pericardial effusion with no indication of tamponade # Depression/anxiety -continue ssri and xanax PRN Code: Full Dispo: plan for home, timing hopefully tomorrow. Additional history obtained from family at bedside today regarding her activity level. Discussed with bedside staff and RN. Discussed with previous hospitalist. Quality VTE Deep Vein Thrombosis/Pulmonary Embolism Present on Admission: No
[2023-01-14] MEDS: guaiFENesin ER 600 MG TAB 1200 MG PO ×2 (13:55→20:21)
--- NOTE | 2023-01-14 15:05 | CM.DANOTE ---
Initial DCP Assessment Note Pt is an 87 yo female, resident of [place], admitted INPT for management of acute on chronic hypoxic resp failure r/t interstitial lung disease w/ dizziness, weakness and orthostatic hypotension PCP: Zoe Bass Payer: [facility]/ [facility] Met w/patient and her daughter and bedside, introduced role. Patient and dtr in good spirits and thankful for the visit. Patient is mostly indp at baseline, uses 4WW at all times. Patient has assist with bills, laundry and meals. Patient lives with her son. Dtr lives nearby and assists as needed Patient requests [facility] upon discharge, says she had them in the past and it was helpful. Patient requests HH RN/PT/OT Will plan to complete F2F and HH order before referring to [facility] Plan: Anticipate discharge home over the next 24-48 hrs w/family to assist and HH services DONNELL Cueto Discharge Planning/Care Management CM Discharge Assessment Start: 01/14/23 14:53 Freq: Status: Active Protocol: Document 01/14/23 14:53 DENI (Rec: 01/14/23 15:04 DENI [id number]) Discharge Planning Assessment Assigned Fabrication Lead DONNELL Lovett DPOA/Assigned Designee Name Beronica Lam dtr Contact Information [phone] Advance Directives? Yes Advance Directives on File Yes History Provided By Patient,Family Member,Medical Record Prior Living Arrangements Mobile home Household Members children Type of transporation used prior to Relies on Others admit Independent with ADL's Yes Is patient alert and oriented? Yes Needs Assistance With Managing Medications,Home Chores / Shopping Comment Patient uses four wheel walker . Patient/Family Preference Home with Home Health Barriers to Discharge No Comment Patient lives with family, good support system. Discharge Plan Home Transportation Arrangement Family local and able to transport at d/c. Referrals Initiated None needed Additional Comment PT=Home w/assist and HH. Patient plans to return home w /supportive family and new [facility] referral for RN/PT/OT Medicare Choice List Provided Yes SNF/HH Preference [facility] Comment Referral will be sent pending completion of F2F and HH order
--- NOTE | 2023-01-14 15:35 | PT.IPTN ---
Current Diagnoses Interstitial pulmonary disease, unspecified (01/11/23) Physical Therapy Treatment Note M2 PT-IP Current Condition Start: 01/12/23 08:38 Freq: NEEDED Status: Active Protocol: Document 01/12/23 17:03 DLM (Rec: 01/12/23 17:18 DLM [id number]) Physical Therapy Current Condition Current Condition Evaluation Date 01/12/23 Treatment Diagnosis dizziness/weakness, impaired gait Onset Date 01/11/23 M3 PT-IP Subjective Start: 01/12/23 08:38 Freq: NEEDED Status: Active Protocol: Document 01/14/23 16:06 TS (Rec: 01/14/23 16:29 TS [id number]) Subjective Physical Therapy Visit Type Type Treatment Note Visit Start Time 15:35 Visit Stop Time 16:00 Total Visit Minutes 25 Number of HEAD TURBINE OPERATOR Visits 2 Physical Therapy Visit Comments Patient Comments Pt found resting in bed, reports getting up a few times to restroom today, daughter is present in room. Pt resting on 2L of o2, Spo2 97% at rest . Patient Goals Discharge home with family to assist M4 PT-IP Mobility and Gait Start: 01/12/23 08:38 Freq: NEEDED Status: Active Protocol: Document 01/14/23 16:06 TS (Rec: 01/14/23 16:29 TS [id number]) PT-Bed Mobility Assessment Supine to Sit Supine to Sit Independent Sit to Supine Sit to Supine Minimal Assistance Scooting Scooting to Edge of Bed Independent Scooting Up and Down in Bed Standby Assistance PT-Transfer Assessment Sit to and From Stand Sit to and from Stand Standby Assistance,Use of Upper Extremities Equipment Transfer Assistive Device Gait Belt,4 Wheeled Walker Comments Mobility Comments Pt removed o2 prior to mobility, Spo2 on RA 95%. Supine to sit Ind with use of bedrail for uprighting trunk and HOB elevated 30D. She scooted to EOB holding onto FWW, maintains good midline sitting EOB. BP taken in sitting 142/56, pt denied any dizziness. Sit to stand w/4WW SBA, BP taken in standing 146/ 56, pt reports some lightheadedness. Pt ambulated to restroom ~10' SBA with slow step thru gait w/4WW. After use of bathroom, pt stood with 4WW SBA and continued to ambulate another ~50' SBA, pt SOB, Spo2 91%-92% on RA. Pt sat EOB, performed squats with 4WW, heel/toe raises, knee flex/ext and standing july. Sit supine pt required Mira for LEs into bed. Pt was left in bed with call light in reach, daughter in room, RN notified of BP. Gait Assessment Gait Gait Assistance Required: Standby Assistance Distance (Feet) 60 Assistive Devices Assistive Device Gait Belt,4 Wheeled Walker Gait Deviations General Gait Pattern Decreased Stride Length, Decreased Feet Clearance, Flexed Trunk,Wide Based Gait Factors Limiting Gait Function Factors Limiting Gait Function Decreased Activity Tolerance, Decreased Strength,Respiratory Distress Comments Gait Comments See mobility comments. PT-Balance Assessment Sitting Balance and Reactions Static Sitting Balance Ability Normal Dynamic Sitting Balance Ability Good Standing Balance and Reactions Static Standing Balance Ability Good Dynamic Standing Balance Ability Good Device Used 4WW M5 PT-IP Objective Assessments Start: 01/12/23 08:38 Freq: NEEDED Status: Active Protocol: Document 01/12/23 17:03 DLM (Rec: 01/12/23 17:58 DLM [id number]) Orientation Orientation/Cognition Level of Alertness Alert Orientation Name,Age,Birthday,Month,Date, Year,Day of Week,Place, Situation Language Function Ability No Deficits Noted Safety Awareness Understands Safety Issues Memory Description No Deficits Noted Gross Range of Motion Upper Extremity ROM Assessment Bilaterally Impaired Impairments left shoulder elevation to 70 degrees, right shoulder 90 degrees Lower Extremity ROM Assessment Within Functional Limits Strength Upper Extremity Strength Assessment Bilaterally Impaired Lower Extremity Strength Assessment Left Impaired Hip flex 4/5 Knee 5/5 Ankle DF 4/5 Comments Strength Comments no pain in LE's with muscle testing, pain in left shoulder with active elevation Coordination Assessment Gross Coordination Gross Coordination WNL Sensation Assessment Sensation Gross Sensation WNL Muscle Tone Muscle Tone WNL Yes M6 PT-IP Treatment Start: 01/12/23 08:38 Freq: NEEDED Status: Active Protocol: Document 01/14/23 16:06 TS (Rec: 01/14/23 16:29 TS [id number]) Physical Therapy Treatment Education Education Provided Safety Equipment Issued Equipment Type and Company pt has her 4WW from home in her room M7 PT-IP Assessment and Plan Start: 01/12/23 08:38 Freq: NEEDED Status: Active Protocol: Document 01/14/23 16:06 TS (Rec: 01/14/23 16:29 TS [id number]) PT Summary Assessment and Plan Potential Rehabilitation Potential Good Summary Impairments Pain,ROM,Strength,Balance, Transfers,Gait,Activity Tolerance Progress Towards Goals Slow Progress due to Medical Issues,Slow Progress due to Activity Tolerance Assessment Summary Lida tolerated gait with decreased fatigue and SOB this session. Spo2 resting on RA was 95%, desats to 91%-92% after mobility. She continues to ambulate ~60' in room SBA with 4WW, has no buckling or LOB. She performed exercises of squats, knee flex/ext, hell /toe raises, and standing marches with some labored movement. PT continues to recommend home w/ assist and HHPT. Goals Transfer Goal Independent,Front Wheeled Walker Gait Goal Independent,Four Wheel Walker Gait Distance 150 feet Other Goals up/down 4 steps with bilateral rails with SBA and help for 4WW Days to Meet Goals 4 Frequency of Treatment Frequency Of Treatment Once a Day Treatment Plan Physical Therapy Treatment Plan Transfer Training,Gait Training,Therapeutic Exercise, Balance Retraining,Discharge Planning,Neuromuscular Re-ed Other Recommendations and Next Treatment vestibular assessment as Focus tolerated by pt and medically appropriate with cardiac status Precautions Other Precautions dizziness when up moving, oxygen use as needed Recommendations To Nursing Amount of Assist Needed Standby Assistance Discharge Recommendations PT Discharge Recommendations Home with Assistance,Home Health Other Discharge Recommendations has help from family Transportation Needs at Discharge Private Vehicle
[2023-01-14] MEDS: ALBUTEROL/IPRATROPIUM 3 ML AMPUL INH ×3 (16:39→20:23)
[2023-01-14] MEDS: ATORVASTATIN 20 MG TABLET 40 MG PO (20:22)
[2023-01-14] MEDS: ALPRAZolam 0.5 MG TABLET PO (20:22)
[2023-01-15] VITALS (9 sets, daily range): BP systolic 127–205; BP diastolic 43–87; PULSE 53–72; RESP 16–17; TEMP 36.2–36.6; O2SAT 95–98
[2023-01-15] MEDS: LABETALOL 20 MG/4 ML SYRINGE 10 MG IV (02:20)
[2023-01-15] MEDS: ACETAMINOPHEN 325 MG TABLET 650 MG PO (02:40)
[2023-01-15] MEDS: ALBUTEROL/IPRATROPIUM 3 ML AMPUL INH ×2 (07:23→11:18)
[2023-01-15] MEDS: predniSONE 20 MG TABLET 40 MG PO (08:36)
[2023-01-15] MEDS: PANTOPRAZOLE DR 40 MG TABLET PO (08:36)
[2023-01-15] MEDS: METOPROLOL IR 50 MG TABLET PO (08:36)
[2023-01-15] MEDS: HEPARIN 5,000 UNIT/ML VIAL 5000 UNIT SUBCUT (08:36)
[2023-01-15] MEDS: ESCITALOPRAM 10 MG TABLET 20 MG PO (08:36)
[2023-01-15] MEDS: ASPIRIN EC 81 MG TABLET PO (08:36)
[2023-01-15] MEDS: guaiFENesin ER 600 MG TAB 1200 MG PO (08:36)
[2023-01-15] MEDS: RANOLAZINE 500 MG TAB.ER.12H PO (08:38)
[2023-01-15] MEDS: AZITHROMYCIN 500 MG in DEXTROSE 5% IN WATER 250 ML 250 MG IV (10:38)
--- NOTE | 2023-01-15 13:05 | CM.DPNOTE ---
DC Note Discharge home today with supportive family. Referral made to [facility] per patient and family request, requested [facility] RN/PT/OT. Completed and signed F2F, [facility] order, demo sheet and H+P faxed to [facility]. DC Summary not currently available Provided [facility] brochure to patient and dtr, both agreeable to plan J[facility]
--- NOTE | 2023-01-15 13:15 | PC.NURSE ---
Discharge education given to patient and family, patient/family verbalized understanding, all questions answered. IV removed and tele d/c'd. All belongings are with patient, no items locked in safe. Patient will be going home with oxygen, all supplies are from home. Awaiting son-in-law to arrive with private vehicle, will wheelchair patient downstairs when ready.
--- NOTE | 2023-01-15 13:45 | PT-IP ANOTE ---
Pt refused PT today due to wanting to rest prior to d/c. She states and daughter confirms she has been ambulating to bathroom and back. Pt states she feels physically capable of returning home safely but is concerned about medical issues.
--- NOTE | 2023-01-16 18:34 | PM.DS.1 ---
History of Present Illness History of Present Illness Date Patient Seen: 01/11/23 Time Patient Seen: 18:28 Chief complaint: headache/heart goingcha-chaSOB/pain down in arms Narrative: Per admitting provider: Lida Townsend is an 86yo F with PMH of CAD s/p 6 stents, CHFpEF, HTN, HLD, pulmonary fibrosis on 2L O2, remote history of cardiac arrest secondary to med reaction who presents with worsening dyspnea and dizziness. Patient was seen in the ED for very similar symptoms 2 weeks ago. She now states her symptoms of dyspnea and diffuse achiness is much worse. She also has occasionally burning in her chest with deep respirations, which her doctor told her was most likely pleurisy. Patient also feels weak and lightheaded, especially when standing up. She doesn't drink very much water. Has been taking her lasix daily. In the ED patient found to require 3L NC and had LE edema so given 60mg IV lasix. She diuresed -1.4L. She then became quite dizzy when standing up, which she states was worse after getting the lasix. She will be admitted to acute care for workup of her SOB, dizziness and weakness. She denies NV, abd pain, cough, angina, or diarrhea. Discharge Providers Provider Date of admission: 01/11/23 15:22 Discharge Date: 01/15/23 Primary care physician: Zoe Bass PA-C Consults: 01/11/23 15:26 Consult to Occupational Therapy Evaluate & Treat Comment: Physician Instructions: Evaluate and treat Consult to Physical Therapy Evaluate & Treat Comment: Physician Instructions: Evaluate and Treat 01/15/23 11:06 Consult to Home Health Routine Comment: Reason For Exam: home health services upon DC Discharge provider: Edgar Simmons MD Summary Hospital Course Discharge Diagnosis: 1. Acute on chronic respiratory failure secondary to IDL flare 2. Orthostatic hypotension, lightheaded 3. FRANCESCA on CKD stage 2 4. CHFpEF, not in exacerbation 5. Depression, anxiety Hospital Course: Ms. Townsend was admitted with respiratory distress requiring oxygen. She has known ILD after a COVID infection in the past. She usually requires intermittent oxygen, and she did require oxygen in the hospital but it was weaned to home levels on discharge. Initially there was some thought she had CHF and she was given diuretics but this worsened her lightheadedness and did not improve her respiratory status. She was given fluids and felt improved. She should have discussion with her PCP and safety and skill based pay manager about her beta-nieves and if it should be stopped or modified to help with her lightheaded symptoms. She was discharged with a steroid taper and azithromycin for her ILD flare. Exam Vital Signs (past 8 hours): Fraction of Inspired Oxygen 24 SaO2/FiO2 Ratio 395 Oxygen Delivery Method Nasal Cannula Oxygen Flow Rate 0 Narrative Exam Narrative: GEN: no acute distress CV: regular rate and rhythm, no murmurs PULM: coarse breath sounds bilaterally ABD: soft, nontender, nondistended, no organomegaly Objective Labs 01/14/23 05:00 01/14/23 05:00 [facility] Medical History (Updated 01/11/23 @ 15:22 by Valerio East DO) Cardiac arrest Chest pain Coronary artery disease Diastolic heart failure Hyperlipidemia Hypertension Left hamstring muscle strain NSTEMI (non-ST elevated myocardial infarction) Skin cancer UTI (urinary tract infection) Surgical History H/O right heart catheterization History of appendectomy History of breast implant removal History of breast surgery History of cholecystectomy History of coronary artery stent placement History of total abdominal hysterectomy Family History Father Hypertension Diabetes mellitus Mother Hypertension [place] (myocardial infarction) Sister [place] (myocardial infarction) S/P CABG x 4 Social History household members: children Smoking Status: Never smoker Discharge Plan Discharge Plan Patient Disposition: Home Health Service Provider Discharge Comment: Ms. Townsend came in to the hospital with cough and shortness and breath. She was improving with medications, but she has ILD and will likely always need oxygen. She does have dizziness and should talk to her safety and skill based pay manager or PCP about whether stopping her metoprolol would be beneficial. Discharge orders & Medications Prescriptions: New guaifenesin [Mucus Relief ER] 600 mg Tablet Extended Release 12hr 1,200 mg PO BID Qty: 30 0RF azithromycin 500 mg tablet 500 mg PO DAILY Qty: 2 0RF prednisone 20 mg tablet 40 mg PO DAILY Qty: 6 0RF Rx Instructions: take 40mg for 2 days on 01/16 and 01/17, 20mg for 2 days on 01/18 and 9/7 Continued aspirin 81 MG tablet,delayed release (DR/EC) 81 mg PO DAILY Qty: 0 ranolazine 500 mg tablet extended release 12 hr 500 mg PO BID pantoprazole 40 mg Tablet,Delayed Release (Dr/Ec) 40 mg PO DAILY escitalopram oxalate 20 mg Tablet 20 mg PO DAILY alprazolam 0.5 mg tablet 0.5 mg PO Q6HR metoprolol tartrate 50 mg Tablet 50 mg PO TID Qty: 60 0RF benzonatate 100 mg capsule 100 mg PO TID PRN (Reason: cough) Qty: 20 0RF furosemide 20 mg tablet 10 mg PO DAILY Jardiance 10 mg tablet 10 mg PO DAILY nitroglycerin 0.4 mg tablet, sublingual 1 tab sublingual [id number] PRN (Reason: Chest Pain) Patient Comments: take it when needed, last dose unknown rosuvastatin 40 mg tablet 40 mg PO QPM oxycodone-acetaminophen 5-325 mg tablet 1 tab PO Q6H PRN (Reason: pain) Qty: 14 0RF Discontinued methylprednisolone [Medrol (Bryon)] 4 mg tablets,dose pack See Rx Instructions .ROUTE .COMPLEX Qty: 21 0RF Rx Instructions: orally per package directions Follow up/Referrals: Zoe Bass PA-C [Primary Care Provider] - 3-5 Days (follow up for hospitalization, likely ILD flare) Visit Report/Discharge Packet Instructions: DI for Heart Failure Stand Alone Forms: Patient Portal/API, Stroke Signs & Symptoms Discharge Data Primary Care Provider: Zoe Bass Discharges patient from system. Discharge Date/Time: 01/15/23 13:45 Quality VTE Deep Vein Thrombosis/Pulmonary Embolism Present on Admission: No
== END 2023-01-15 13:45 | disposition home or self-care (01) | DRG 196 ==
LOC: ED 15:22 → AC 15:46
PROVIDERS: Admitting Provider Student in an Organized Health Care Education/Training Program; Emergency Provider Emergency Medicine; Family Provider Internal Medicine; PCP Physician Assistant Medical; Referring Provider Emergency Medicine; Visit Provider Student in an Organized Health Care Education/Training Program
DX: J84.9 Interstitial pulmonary disease, unspecified (principal); J96.21 Acute and chronic respiratory failure with hypoxia; I13.0 Hypertensive heart and chronic kidney disease with heart failure and stage 1 through stage 4 chronic kidney disease, or unspecified chronic kidney disease; I50.32 Chronic diastolic (congestive) heart failure; I25.10 Atherosclerotic heart disease of native coronary artery without angina pectoris; J84.10 Pulmonary fibrosis, unspecified; F32.A Depression, unspecified; F41.9 Anxiety disorder, unspecified; N18.2 Chronic kidney disease, stage 2 (mild); I95.1 Orthostatic hypotension; E78.5 Hyperlipidemia, unspecified; Z86.16 Personal history of COVID-19; Z95.5 Presence of coronary angioplasty implant and graft; Z99.81 Dependence on supplemental oxygen
CPT/HCPCS: 36415; 71045; 80048; 80053; 81003; 81015; 82550; 83690; 83735; 83880; 84443; 84484; 85025; 85610; 85730; 87635; 93005; 93306; 94640; 94760; 96365; 97116; 97162; 97166; 97530; 99284; 99285; C9803; J1644; J1940; Q9957

== ENCOUNTER 2023-02-09 18:20 | Emergency (ER) | payer MEDICARE, OTHER, SELFPAY ==
[2023-01-11 15:28] VITALS: BMI 35.6
[2023-02-09] VITALS (24 sets, daily range): BP systolic 172–241; BP diastolic 63–109; PULSE 62–72; RESP 12–41; TEMP 36.7; O2SAT 96–98; BMI 36.3
--- NOTE | 2023-02-09 18:30 | ED_ITS ---
HPI - General Adult General Chief complaint: Chest Pain Stated complaint: pain starts in back wraps around/ache head to toe Time Seen by Provider: 02/09/23 18:25 History of Present Illness HPI narrative: 87-year-old female with extensive cardiac history and multiple stents, CHF with preserved ejection fraction, hyperlipidemia, pulmonary fibrosis on 2 L of oxygen, remote cardiac arrest from medication reaction, hypertension presents with a chief complaint of feeling gradually worse and generally unwell over the past 3-4 weeks. She states that over the past few days she is started having full body pain including her head, neck, shoulders, knees, ankles and now wrapping around both sides of her chest. The pain is constant and made worse by any attempts at moving and is not improved by any medications that she has access to. She denies runny nose, sore throat or cough. She denies any shortness of breath, nausea or vomiting. She denies any trauma or injury. She denies any change in her medications though at the time of discharge was placed on preventative azithromycin taken 3 times weekly as well as a prednisone taper. She is otherwise on a stable regimen of medications and denies any missed doses or changing in the doses. Related Data Home Medications Medication Instructions Recorded Confirmed aspirin 81 mg tablet,delayed 81 mg PO DAILY ##0 05/14/17 01/11/23 release nitroglycerin 0.4 mg sublingual 1 tab sublingual [id number] PRN Chest 11/18/18 01/11/23 tablet Pain rosuvastatin 40 mg tablet 40 mg PO QPM 11/18/18 01/11/23 ranolazine 500 mg tablet,extended 500 mg PO BID 02/09/20 01/11/23 release,12 hr escitalopram oxalate 20 mg tablet 20 mg PO DAILY 03/06/21 01/11/23 pantoprazole 40 mg tablet,delayed 40 mg PO DAILY 03/06/21 01/11/23 release alprazolam 0.5 mg tablet 0.5 mg PO Q6HR anxiety 03/10/21 01/11/23 furosemide 20 mg tablet 10 mg PO DAILY 01/11/23 01/11/23 empagliflozin 10 mg tablet 10 mg PO DAILY 01/14/23 01/14/23 (Jardiance) Previous Rx's Medication Instructions Recorded metoprolol tartrate 50 mg tablet 50 mg PO TID #60 tabs 03/11/21 oxycodone-acetaminophen 5 mg-325 1 tab PO Q6H PRN pain #14 tabs 06/14/21 mg tablet benzonatate 100 mg capsule 100 mg PO TID PRN cough #20 caps 12/13/22 azithromycin 500 mg tablet 500 mg PO DAILY #2 tabs 01/15/23 guaifenesin 600 mg tablet, 1,200 mg PO BID #30 tabs 01/15/23 extended release 12 hr (Mucus Relief ER) prednisone 20 mg tablet 40 mg PO DAILY #6 tabs 01/15/23 hydralazine 10 mg tablet 10 mg PO QID #20 tabs 02/09/23 Allergies Allergy/AdvReac Type Severity Reaction Status Date / Time ibuprofen [IBUPROFEN] Allergy Severe Rash Verified 02/09/23 18:38 Iodinated Contrast Media Allergy Severe Unconscious Verified 02/09/23 18:38 [IODINATED CONTRAST- ORAL AND IV DYE] morphine [MORPHINE] Allergy Severe Rash Verified 02/09/23 18:38 naproxen [From ALEVE] Allergy Severe Rash Verified 02/09/23 18:38 telmisartan [TELMISARTAN] Allergy Severe Rash Verified 02/09/23 18:38 Review of Systems Review of Systems Narrative: GENERAL: Denies chills, fatigue, malaise, fever, sweats. HEENT: Denies sinus pain, ear pain, sore throat, difficulty swallowing, dizziness. RESPIRATORY: Denies dyspnea, cough, wheezing, hemoptysis, sputum. CARDIOVASCULAR: Denies chest pain, palpitations, orthopnea, edema, GASTROINTESTINAL: Denies nausea, vomiting, abdominal pain, diarrhea, constipation, melena. : Denies dysuria, frequency, incontinence, hematuria, urinary retention. MUSCULOSKELETAL: See HPI SKIN: Denies rash, skin lesions, or other NEUROLOGIC: Denies weakness, headache, numbness, change in speech, confusion, seizures, incoordination. PSYCHIATRIC: No concerning psychosocial issues. 12 point review of systems is negative except for those stated above Patient History Medical History (Updated 02/09/23 @ 22:27 by Ankur Nunez DO) Cardiac arrest Chest pain Coronary artery disease Diastolic heart failure Hyperlipidemia Hypertension Left hamstring muscle strain NSTEMI (non-ST elevated myocardial infarction) Skin cancer UTI (urinary tract infection) Surgical History H/O right heart catheterization History of appendectomy History of breast implant removal History of breast surgery History of cholecystectomy History of coronary artery stent placement History of total abdominal hysterectomy Family History Father Hypertension Diabetes mellitus Mother Hypertension OR (myocardial infarction) Sister OR (myocardial infarction) S/P CABG x 4 Social History household members: children Smoking Status: Never smoker Smoking Status: Never smoker alcohol intake frequency: holidays/special occasions only Substance Use Type: does not use Exam Narrative Exam Narrative: GENERAL: [87] year old patient appears stated age. Well-developed patient, in mild distress. No increased work of breathing, GCS 15 HEAD: Atraumatic. Normocephalic. EYES: Pupils equal round and reactive. Extraocular motions intact. No scleral icterus. No injection or drainage. ENT: Nose without bleeding, purulent drainage. Throat without erythema, tonsillar hypertrophy or exudate. Airway patent. NECK: Trachea midline. Non tender CARDIOVASCULAR: Regular rate and rhythm without murmurs, gallops, or rubs. RESPIRATORY: Clear to auscultation. Breath sounds equal bilaterally. No wheezes, rales, or rhonchi. GASTROINTESTINAL: Abdomen soft, non-tender, nondistended. EXTREMITIES: Shoulders, elbows, hips and knees with full but painful range of motion, no obvious swelling, redness, no numbness, tingling or vascular compromise BACK: Nontender without deformity or crepitance. No flank tenderness. NEURO: AOx3. SKIN: No rash or erythema of visible areas Initial Vital Signs Initial Vital Signs: Vital Signs Temperature 98.1 F 02/09/23 18:34 Pulse Rate 68 02/09/23 18:34 Respiratory Rate 24 02/09/23 18:34 Blood Pressure 241/104 H 02/09/23 18:34 Pulse Oximetry 97 02/09/23 18:34 Oxygen Delivery Method Room Air 02/09/23 18:34 Course Orders Ordered: ED Orders 02/09/23 18:38 XR chest 1V Stat EKG-12 Lead Stat 02/09/23 18:46 BNP [NT-proBNP (BNP-Adult 18+)] Stat Complete Blood Count AUTO DIFF Stat Comprehensive Metabolic Panel Stat Lipase Stat Magnesium Stat PTT Partial Thromboplastin Garo Stat Prothrombin Time INR Stat Troponin & CK Cardiac Panel Stat 02/09/23 19:10 Urinalysis and Microscopic Stat 02/09/23 19:25 Respiratory Panel (Film Array) Stat 02/09/23 19:50 Blood Culture Stat Discontinued Medications Hydralazine HCl (Hydralazine 20 Mg/Ml Vial) 10 mg IV NOW ONE Stop: 02/09/23 21:46 Last Admin: 02/09/23 22:00 Dose: 10 mg Documented By: EVAN Sodium Chloride (Normal Saline 0.9%) 500 mls @ 1,000 mls/hr IV BOLUS ONE Stop: 02/09/23 19:42 Last Infusion: 02/09/23 20:10 Dose: 0 mls/hr Documented By: Admin: 02/09/23 19:40 Dose: 1,000 mls/hr Documented By: MARKIE Oxycodone/Acetaminophen (Oxycodone/Acetaminophen 5/325 Tablet) 1 tab PO NOW ONE Stop: 02/09/23 20:33 Last Admin: 02/09/23 20:48 Dose: 1 tab Documented By: EVAN Vital Signs Vital signs: Vital Signs - 8 hr 02/09/23 18:51 02/09/23 19:00 02/09/23 19:01 Pulse Rate 66 62 62 Respiratory Rate 15 21 22 Blood Pressure Pulse Oximetry 98 98 98 Oxygen Delivery Method Nasal Cannula Nasal Cannula Oxygen Flow Rate 2 2 02/09/23 19:01 02/09/23 19:02 02/09/23 19:03 Pulse Rate 62 Respiratory Rate 26 H Blood Pressure 212/84 H 204/91 H Pulse Oximetry 98 Oxygen Delivery Method Nasal Cannula Oxygen Flow Rate 2 02/09/23 19:10 02/09/23 19:30 02/09/23 19:31 Pulse Rate 72 63 63 Respiratory Rate 41 H 25 H 25 H Blood Pressure Pulse Oximetry 96 97 97 Oxygen Delivery Method Oxygen Flow Rate 02/09/23 19:31 02/09/23 20:00 02/09/23 20:01 Pulse Rate 67 Respiratory Rate 20 Blood Pressure 223/100 H 220/95 H Pulse Oximetry 97 Oxygen Delivery Method Oxygen Flow Rate 02/09/23 20:01 02/09/23 20:30 02/09/23 20:30 Pulse Rate 66 69 Respiratory Rate 15 18 Blood Pressure 233/109 H Pulse Oximetry 97 97 Oxygen Delivery Method Oxygen Flow Rate 02/09/23 21:00 02/09/23 21:01 02/09/23 21:01 Pulse Rate 65 64 Respiratory Rate 16 16 Blood Pressure 221/92 H Pulse Oximetry 97 97 Oxygen Delivery Method Oxygen Flow Rate 02/09/23 22:00 02/09/23 21:30 02/09/23 21:31 Pulse Rate 66 65 Respiratory Rate 12 Blood Pressure 217/92 H 222/93 H Pulse Oximetry 97 Oxygen Delivery Method Oxygen Flow Rate 02/09/23 21:31 02/09/23 22:00 02/09/23 22:01 Pulse Rate 65 67 66 Respiratory Rate 16 15 19 Blood Pressure Pulse Oximetry 97 97 97 Oxygen Delivery Method Oxygen Flow Rate 02/09/23 22:01 02/09/23 22:06 02/09/23 22:06 Pulse Rate 69 Respiratory Rate 17 Blood Pressure 217/92 H 218/104 H Pulse Oximetry 96 Oxygen Delivery Method Oxygen Flow Rate 02/09/23 22:10 02/09/23 22:10 02/09/23 22:15 Pulse Rate 70 69 Respiratory Rate 15 14 Blood Pressure 179/77 H Pulse Oximetry 96 96 Oxygen Delivery Method Oxygen Flow Rate 02/09/23 22:15 02/09/23 22:20 02/09/23 22:20 Pulse Rate 69 Respiratory Rate 16 Blood Pressure 174/63 H 175/74 H Pulse Oximetry 96 Oxygen Delivery Method Oxygen Flow Rate 02/09/23 22:25 02/09/23 22:25 02/09/23 22:30 Pulse Rate 71 Respiratory Rate 16 Blood Pressure 172/74 H 180/74 H Pulse Oximetry 96 Oxygen Delivery Method Oxygen Flow Rate 02/09/23 22:30 Pulse Rate 68 Respiratory Rate 12 Blood Pressure Pulse Oximetry 96 Oxygen Delivery Method Oxygen Flow Rate Medical Decision Making Lab Data 02/09/23 18:46 02/09/23 18:46 Labs: Lab Results 02/09/23 02/09/23 02/09/23 Range/Units 18:46 18:46 18:46 WBC 9.3 (4.5-11.0) X10^3/uL RBC 5.36 H (4.0-5.2) X10^6/uL Hgb 12.9 (12.0-16.0) g/dL Hct 39.6 (36-46) % MCV 73.8 L (80-100) fL MCH 24.0 L (26-34) PG MCHC 32.5 (30-36) % RDW 20.9 H (11.6-14.8) % Plt Count 254 (150-400) X10^3/uL Neut % (Auto) 69.3 (50-75) % Lymph % (Auto) 22.2 L (25-40) % [place] % (Auto) 7.4 (3-14) % Eos % (Auto) 0.0 L (2-4) % Baso % (Auto) 1.1 (0-2) % Neut # (Auto) 6500 (8790-2316) /uL Lymph # (Auto) 2100 (7518-7617) /uL [place] # (Auto) 700 (0-900) /uL Eos # (Auto) 0 (0-450) /uL Baso # (Auto) 100 (0-100) /uL RBC Morphology See below Polychromasia 1+ H Microcytosis 1+ H PT 11.8 (10.1-12.7) SECONDS INR 1.0 (0.9-1.3) APTT 22 L (26-36) SECONDS Sodium 137 (137-145) mmol/L Potassium 3.9 (3.4-5.1) mmol/L Chloride 102 (98-107) mmol/L Carbon Dioxide 30 (22-32) mmol/L BUN 25 H (7-17) mg/dL Creatinine 1.06 H (0.52-1.04) mg/dL Estimated GFR 51 L (>60) mL/min BUN/Creatinine Ratio 23.6 H (6-22) Glucose 156 H (80-110) mg/dL Calcium 8.9 (8.4-10.2) mg/dL Magnesium 2.2 (1.6-2.3) mg/dL Total Bilirubin 0.5 (0.2-1.3) mg/dL AST 21 (14-36) IU/L ALT 14 (<35) IU/L Alkaline Phosphatase 51 (38-126) U/L Total Creatine Kinase 20 L (30-135) U/L Troponin I 0.017 (0.01-0.034) ng/mL NT-Pro-B Natriuret Pep (<450) pg/mL Total Protein 6.6 (6.3-8.2) g/dL Albumin 3.9 (3.5-5.0) g/dL Globulin 2.7 (1.7-4.1) g/dL Albumin/Globulin Ratio 1.4 (1.0-2.8) Lipase 139 (23-300) U/L Urine Color Urine Appearance Urine pH (4.5-8.0) Ur Specific [place] (1.000-1.035) Urine Protein (Negative) Urine Glucose (UA) (Negative) g/dL Urine Ketones (NEGATIVE) Urine Occult Blood (Negative) Urine Nitrate (Negative) Urine Bilirubin (NEGATIVE) Urine Urobilinogen (0.2) E.U./dL Ur Leukocyte Esterase (NEGATIVE) Urine RBC (0-5/HPF) Urine WBC (0-5/HPF) Ur Squamous Epith Cells (0-5/HPF) Urine Bacteria (None) Hyaline Casts (None) Urine Yeast (None) Ur Culture Indicated? Chlamy pneumoniae PCR (Not Detect) Adenovirus (PCR) (Not Detect) B. pertussis DNA (PCR) (Not Detecte) B.parapertussis DNA PCR (Not Detecte) Coronavirus OC43 (PCR) (Not Detect) Coronavirus HKU1 (PCR) (Not Detect) Coronavirus 229E (PCR) (Not Detect) SARS-CoV-2 (PCR) (Not Detecte) Coronavirus NL63 (PCR) (Not Detect) Human Metapneumovir PCR (Not Detect) Influenza Type A (PCR) (Not Detect) Influenza Type B (PCR) (Not Detect) M. pneumoniae (PCR) (Not Detect) Parainfluenza 1 (PCR) (Not Detect) Parainfluenza 2 (PCR) (Not Detect) Parainfluenza 3 (PCR) (Not Detect) Parainfluenza 4 (PCR) (Not Detect) RSV (PCR) (Not Detect) Entero/Rhino (PCR) (Not Detect) 02/09/23 02/09/23 02/09/23 Range/Units 18:46 19:10 19:25 WBC (4.5-11.0) X10^3/uL RBC (4.0-5.2) X10^6/uL Hgb (12.0-16.0) g/dL Hct (36-46) % MCV (80-100) fL MCH (26-34) PG MCHC (30-36) % RDW (11.6-14.8) % Plt Count (150-400) X10^3/uL Neut % (Auto) (50-75) % Lymph % (Auto) (25-40) % [place] % (Auto) (3-14) % Eos % (Auto) (2-4) % Baso % (Auto) (0-2) % Neut # (Auto) (2538-9943) /uL Lymph # (Auto) (9140-7418) /uL [place] # (Auto) (0-900) /uL Eos # (Auto) (0-450) /uL Baso # (Auto) (0-100) /uL RBC Morphology Polychromasia Microcytosis PT (10.1-12.7) SECONDS INR (0.9-1.3) APTT (26-36) SECONDS Sodium (137-145) mmol/L Potassium (3.4-5.1) mmol/L Chloride (98-107) mmol/L Carbon Dioxide (22-32) mmol/L BUN (7-17) mg/dL Creatinine (0.52-1.04) mg/dL Estimated GFR (>60) mL/min BUN/Creatinine Ratio (6-22) Glucose (80-110) mg/dL Calcium (8.4-10.2) mg/dL Magnesium (1.6-2.3) mg/dL Total Bilirubin (0.2-1.3) mg/dL AST (14-36) IU/L ALT (<35) IU/L Alkaline Phosphatase (38-126) U/L Total Creatine Kinase (30-135) U/L Troponin I (0.01-0.034) ng/mL NT-Pro-B Natriuret Pep 920 H (<450) pg/mL Total Protein (6.3-8.2) g/dL Albumin (3.5-5.0) g/dL Globulin (1.7-4.1) g/dL Albumin/Globulin Ratio (1.0-2.8) Lipase (23-300) U/L Urine Color Yellow Urine Appearance Sl cloudy Urine pH 5.5 (4.5-8.0) Ur Specific [place] 1.025 (1.000-1.035) Urine Protein 1+ H (Negative) Urine Glucose (UA) 3+ H (Negative) g/dL Urine Ketones Negative (NEGATIVE) Urine Occult Blood 1+ H (Negative) Urine Nitrate Negative (Negative) Urine Bilirubin Negative (NEGATIVE) Urine Urobilinogen 0.2 (0.2) E.U./dL Ur Leukocyte Esterase Negative (NEGATIVE) Urine RBC 1-5/hpf (0-5/HPF) Urine WBC 0-1/hpf (0-5/HPF) Ur Squamous Epith Cells 1-5 /hpf (0-5/HPF) Urine Bacteria Moderate (10-30) H (None) Hyaline Casts 0-1/lpf (None) Urine Yeast 5-10/hpf H (None) Ur Culture Indicated? Cult not indicated Chlamy pneumoniae PCR Not detected (Not Detect) Adenovirus (PCR) Not detected (Not Detect) B. pertussis DNA (PCR) Not detected (Not Detecte) B.parapertussis DNA PCR Not detected (Not Detecte) Coronavirus OC43 (PCR) Not detected (Not Detect) Coronavirus HKU1 (PCR) Not detected (Not Detect) Coronavirus 229E (PCR) Not detected (Not Detect) SARS-CoV-2 (PCR) Not detected (Not Detecte) Coronavirus NL63 (PCR) Not detected (Not Detect) Human Metapneumovir PCR Not detected (Not Detect) Influenza Type A (PCR) Not detected (Not Detect) Influenza Type B (PCR) Not detected (Not Detect) M. pneumoniae (PCR) Not detected (Not Detect) Parainfluenza 1 (PCR) Not detected (Not Detect) Parainfluenza 2 (PCR) Not detected (Not Detect) Parainfluenza 3 (PCR) Not detected (Not Detect) Parainfluenza 4 (PCR) Not detected (Not Detect) RSV (PCR) Not detected (Not Detect) Entero/Rhino (PCR) Not detected (Not Detect) Urine Dip Bedside Urine Glucose 1000 mg/dl Bedside Urine Bilirubin - Negative Bedside Urine Ketone - Negative Urine Specific [place] 1.02 Bedside Urine Occult Blood ++ Bedside Urine pH 5.5 Bedside Urine Protein +/- 15 Bedside Urine Urobilinogen - Negative Bedside Urine Nitrite - Negative Bedside Urine Leukocytes - Negative Esterase Point of care testing: Urine Dip Bedside Urine Glucose 1000 mg/dl Bedside Urine Bilirubin - Negative Bedside Urine Ketone - Negative Urine Specific [place] 1.02 Bedside Urine Occult Blood ++ Bedside Urine pH 5.5 Bedside Urine Protein +/- 15 Bedside Urine Urobilinogen - Negative Bedside Urine Nitrite - Negative Bedside Urine Leukocytes - Negative Esterase MDM Narrative Medical decision making narrative: 87[] year old patient presents with full body pain Multiple etiologies for patient's symptoms considered including, but not limited to: [Hypertensive crisis versus viral infection such as COVID versus flu versus other] Prior Charts reviewed in our EMR Primary Historian: patient Labs reviewed and interpreted by myself: No leukocytosis or left shift, electrolytes and renal function at baseline, troponin negative, BNP slightly elevated at 920 Imaging reviewed: Chest x-ray demonstrates no acute process Treatments: BP well controlled with hydralazine Patient's symptoms improved over duration of stay with above-stated therapies. Her history and physical exam are reassuring and she is had this slow gradual worsening of symptoms over many weeks if not months. No obvious or significant diagnosis requiring immediate intervention noted. Symptoms improved, blood pressure moving in the right direction, no signs of sepsis, patient with plans to follow-up as an outpatient, return precautions discussed Findings and discharge diagnosis discussed with patient/family followed by verbalization of understanding Return precautions discussed with patient/family whom verbalize understanding of diagnosis and plan Discharge Plan Departure Patient Disposition: Home Clinical Impression: Hypertension, Complaints of total body pain Instructions: High Blood Pressure Activity Restrictions/Additional Instructions: *You have been diagnosed with [Hypertension ] *What to do: *Please continue to take your regular medications as directed. [x ] New medication prescriptions sent to your pharmacy: [ [facility]] [ ] New medication written as a paper prescription [ ] No new medications given *Please follow up with your primary care provider in 2-3 days, call for an appointment. Let them know you were seen in the Emergency Department and that we ask that you be seen in follow up. We will electronically transmit a record of today's note if your PCP is in our system *If you do not have a primary care provider please contact the [facility] Resource line at [phone]. They will ask some questions about your medical history and help get you set up with a doctor in the community. *Return to Emergency Department if you should have any new, worsening or concerning symptoms, such as [fever greater than 101 F, shaking chills, worsening pain, persistent vomiting or other bothersome symptoms] Prescriptions: New hydralazine 10 mg tablet 10 mg PO QID Qty: 20 0RF No Action aspirin 81 MG tablet,delayed release (DR/EC) 81 mg PO DAILY Qty: 0 ranolazine 500 mg tablet extended release 12 hr 500 mg PO BID pantoprazole 40 mg Tablet,Delayed Release (Dr/Ec) 40 mg PO DAILY escitalopram oxalate 20 mg Tablet 20 mg PO DAILY alprazolam 0.5 mg tablet 0.5 mg PO Q6HR metoprolol tartrate 50 mg Tablet 50 mg PO TID Qty: 60 0RF benzonatate 100 mg capsule 100 mg PO TID PRN (Reason: cough) Qty: 20 0RF furosemide 20 mg tablet 10 mg PO DAILY Jardiance 10 mg tablet 10 mg PO DAILY guaifenesin [Mucus Relief ER] 600 mg Tablet Extended Release 12hr 1,200 mg PO BID Qty: 30 0RF azithromycin 500 mg tablet 500 mg PO DAILY Qty: 2 0RF prednisone 20 mg tablet 40 mg PO DAILY Qty: 6 0RF Rx Instructions: take 40mg for 2 days on 01/16 and 01/17, 20mg for 2 days on 01/18 and 01/19 nitroglycerin 0.4 mg tablet, sublingual 1 tab sublingual [id number] PRN (Reason: Chest Pain) Patient Comments: take it when needed, last dose unknown rosuvastatin 40 mg tablet 40 mg PO QPM oxycodone-acetaminophen 5-325 mg tablet 1 tab PO Q6H PRN (Reason: pain) Qty: 14 0RF Referrals: Zoe Bass PA-C [Primary Care Provider] - Stand Alone Forms: Patient Portal/API
--- NOTE | 2023-02-09 18:38 | DI.RAD.S_ITS ---
PROCEDURE: XR CHEST 1V INDICATIONS: chest pain TECHNIQUE: One view of the chest was acquired. COMPARISON: [facility], CR, XR CHEST 1V, 01/11/2023, 12:06. FINDINGS: Surgical changes and devices: None. Lungs and pleura: Lungs are clear. No pleural effusions or pneumothorax. Mediastinum: Mediastinal contours appear normal. Heart size is normal. Bones and chest wall: No suspicious bony lesions. Overlying soft tissues appear unremarkable. IMPRESSION: No acute process. Dictated by: Brandy Barakat M.D. on 02/09/2023 at 18:56 Approved by: Brandy Barakat M.D. on 02/09/2023 at 18:56
[2023-02-09 18:55] LABS: Add Manual Diff / Slide Review NO; Basophils Absolute Auto 100 /uL (0-100); Basophils Percent Auto 1.1 % (0-2); Eosinophils Absolute Auto 0 /uL (0-450); Hematocrit 39.6 % (36-46); Hemoglobin 12.9 g/dL (12.0-16.0); Lymphocytes Absolute Auto 2100 /uL (1100-4500); Lymphocytes Percent Auto 22.2 % (25-40); Mean Corpuscular HGB Conc 32.5 % (30-36); Mean Corpuscular Volume 73.8 fL (80-100); Monocytes Absolute Auto 700 /uL (0-900); Monocytes Percent Auto 7.4 % (3-14); Neutrophils Absolute Auto 6500 /uL (1500-7000); Neutrophils Percent Auto 69.3 % (50-75); Platelet Count 254 X10^3/uL (150-400); Red Blood Cell Count 5.36 X10^6/uL (4.0-5.2); Red Cell Distribution Width 20.9 % (11.6-14.8); White Blood Cell Count 9.3 X10^3/uL (4.5-11.0)
[2023-02-09 19:01] LABS: Prothrombin Time 11.8 SECONDS (10.1-12.7)
[2023-02-09 19:04] LABS: PTT Partial Thromboplastin Tim 22 SECONDS (26-36)
[2023-02-09 19:06] LABS: Alanine Aminotransferase 14 IU/L (<35); Albumin 3.9 g/dL (3.5-5.0); Albumin Globulin Ratio 1.4 (1.0-2.8); Alkaline Phosphatase 51 U/L (38-126); Aspartate Aminotransferase 21 IU/L (14-36); BUN Creatinine Ratio 23.6 (6-22); Bilirubin Total 0.5 mg/dL (0.2-1.3); Blood Urea Nitrogen 25 mg/dL (7-17); Calcium 8.9 mg/dL (8.4-10.2); Carbon Dioxide 30 mmol/L (22-32); Chloride 102 mmol/L (98-107); Creatine Kinase 20 U/L (30-135); Estimated Glomerular Filt Rate 51 mL/min (>60); Globulin 2.7 g/dL (1.7-4.1); Glucose 156 mg/dL (80-110); HEMOLYSIS < 15 (0-50); Lipase 139 U/L (23-300); Magnesium 2.2 mg/dL (1.6-2.3); Potassium 3.9 mmol/L (3.4-5.1); Sodium 137 mmol/L (137-145); Total Protein 6.6 g/dL (6.3-8.2)
[2023-02-09 19:16] LABS: Troponin I 0.017 ng/mL (0.01-0.034)
[2023-02-09 19:23] LABS: Microcytosis 1+; Polychromasia 1+
[2023-02-09] MEDS: SODIUM CHLORIDE 0.9% 500 ML 1000 ML IV (19:40)
[2023-02-09 20:20] LABS: Adenovirus Not Detected (Not Detect); Coronavirus 229E Not Detected (Not Detect); Coronavirus HKU1 Not Detected (Not Detect); Coronavirus NL 63 Not Detected (Not Detect); Coronavirus OC43 Not Detected (Not Detect); Human Metapneumovirus Not Detected (Not Detect); Human Rhinovirus/Enterovirus Not Detected (Not Detect); SARS- CoV-2 Not Detected (Not Detecte)
[2023-02-09 20:21] LABS: B. parapertussis Not Detected (Not Detecte); Bordetella pertussis Not Detected (Not Detecte); Chlamydophila pneumoniae Not Detected (Not Detect); Influenza A Not Detected (Not Detect); Influenza B Not Detected (Not Detect); Mycoplasma pneumoniae Not Detected (Not Detect); Parainfluenza Virus 1 Not Detected (Not Detect); Parainfluenza Virus 2 Not Detected (Not Detect); Parainfluenza Virus 3 Not Detected (Not Detect); Parainfluenza Virus 4 Not Detected (Not Detect); Respiratory Syncytial Virus Not Detected (Not Detect)
[2023-02-09] MEDS: OXYCODONE/ACETAMINOPHEN 5/325 TABLET 1 TAB PO (20:48)
[2023-02-09 21:09] LABS: NT-proBNP (BNP-Adult 18+) 920 pg/mL (<450)
[2023-02-09 21:32] LABS: Bilirubin Urine UA NEGATIVE (NEGATIVE); Color Urine UA YELLOW; Glucose Urine UA 3+ g/dL (Negative); Ketones Urine UA NEGATIVE (NEGATIVE); Leukocyte Esterase Urine UA NEGATIVE (NEGATIVE); Nitrite Urine UA NEGATIVE (Negative); Occult Blood Urine UA 1+ (Negative); Protein Urine UA 1+ (Negative); Specific Gravity Urine UA 1.025 (1.000-1.035); Urobilinogen Urine UA 0.2 E.U./dL (0.2)
[2023-02-09 21:36] LABS: pH Urine UA 5.5 (4.5-8.0)
[2023-02-09 21:37] LABS: Appearance Urine UA SL CLOUDY; RBC Urine 1-5/HPF (0-5/HPF); WBC Urine 0-1/HPF (0-5/HPF)
[2023-02-09 21:38] LABS: Bacteria Urine Moderate (10-30); Hyaline Casts Urine 0-1/LPF; Squamous Epithelial Cell Urine 1-5 /HPF (0-5/HPF)
[2023-02-09 21:39] LABS: Culture Indicated Urine Cult Not Indicated
[2023-02-09] MEDS: HYDRALAZINE 20 MG/ML VIAL 10 MG IV (22:00)
== END 2023-02-09 22:55 | disposition home or self-care (01) ==
PROVIDERS: Emergency Provider Emergency Medicine; Family Provider Internal Medicine; PCP Physician Assistant Medical
DX: I10 Essential (primary) hypertension (principal); R52 Pain, unspecified; Z79.899 Other long term (current) drug therapy; Z20.822 Contact with and (suspected) exposure to COVID-19
CPT/HCPCS: 36415; 71045; 80053; 81001; 81003; 82550; 83690; 83735; 83880; 84484; 85025; 85610; 85730; 87040; 87633; 93005; 96374; 99284; 99285; J0360

== ENCOUNTER 2023-05-16 05:17 | Emergency (ER) | payer MEDICARE, OTHER, SELFPAY ==
[2023-01-11 15:28] VITALS: BMI 35.6
[2023-05-16] VITALS (11 sets, daily range): BP systolic 153–205; BP diastolic 67–90; PULSE 60–71; RESP 22; TEMP 36.7–36.8; O2SAT 97–99; BMI 36.1
--- NOTE | 2023-05-16 05:24 | ED_ITS ---
HPI - General Adult <Bhumi Addison MD - Last Filed: 05/17/23 22:02> General Chief complaint: Upper Respiratory Symptoms Stated complaint: freezing, cough, chest pain, losing voice, headach Time Seen by Provider: 05/16/23 05:23 History of Present Illness HPI narrative: 87-year-old woman with a history of coronary disease, multiple stents, congestive heart failure, hypertension, hyperlipidemia, pulmonary fibrosis on 2 L of oxygen at home that she increased to 3 L full-time as of yesterday presents complaining of 5 days of general malaise 3 days of increasing cough and she woke up at 3:00 a.m. this morning with severe cough and dizziness when she stood up with increased dyspnea. She does not describe any fevers, notes that she is slightly hoarse and has a mildly sore throat, she has not been having any chest pain, she has felt more short of breath. She reportedly had COVID in 2019 and has been oxygen dependent since then. She describes chronic lower extremity edema that has not changed recently. She states she is had a low-grade headache today and has not had nausea, vomiting, abdominal pain diarrhea or dysuria. Related Data Home Medications Medication Instructions Recorded Confirmed aspirin 81 mg tablet,delayed 81 mg PO DAILY ##0 05/14/17 01/11/23 release nitroglycerin 0.4 mg sublingual 1 tab sublingual [id number] PRN Chest 11/18/18 01/11/23 tablet Pain rosuvastatin 40 mg tablet 40 mg PO QPM 11/18/18 01/11/23 ranolazine 500 mg tablet,extended 500 mg PO BID 02/09/20 01/11/23 release,12 hr escitalopram oxalate 20 mg tablet 20 mg PO DAILY 03/06/21 01/11/23 pantoprazole 40 mg tablet,delayed 40 mg PO DAILY 03/06/21 01/11/23 release alprazolam 0.5 mg tablet 0.5 mg PO Q6HR anxiety 03/10/21 01/11/23 furosemide 20 mg tablet 10 mg PO DAILY 01/11/23 01/11/23 empagliflozin 10 mg tablet 10 mg PO DAILY 01/14/23 01/14/23 (Jardiance) Previous Rx's Medication Instructions Recorded metoprolol tartrate 50 mg tablet 50 mg PO TID #60 tabs 03/11/21 oxycodone-acetaminophen 5 mg-325 1 tab PO Q6H PRN pain #14 tabs 06/14/21 mg tablet benzonatate 100 mg capsule 100 mg PO TID PRN cough #20 caps 12/13/22 azithromycin 500 mg tablet 500 mg PO DAILY #2 tabs 01/15/23 guaifenesin 600 mg tablet, 1,200 mg (2 x 600 mg) PO BID #30 01/15/23 extended release 12 hr (Mucus tabs Relief ER) prednisone 20 mg tablet 40 mg (2 x 20 mg) PO DAILY #6 tabs 01/15/23 hydralazine 10 mg tablet 10 mg PO QID #20 tabs 02/09/23 Allergies Allergy/AdvReac Type Severity Reaction Status Date / Time ibuprofen [IBUPROFEN] Allergy Severe Rash Verified 02/09/23 18:38 Iodinated Contrast Media Allergy Severe Unconscious Verified 02/09/23 18:38 [IODINATED CONTRAST- ORAL AND IV DYE] morphine [MORPHINE] Allergy Severe Rash Verified 02/09/23 18:38 naproxen [From ALEVE] Allergy Severe Rash Verified 02/09/23 18:38 telmisartan [TELMISARTAN] Allergy Severe Rash Verified 02/09/23 18:38 Review of Systems <Bhumi Addison MD - Last Filed: 05/17/23 22:02> Review of Systems Narrative: Pertinent positive and negative findings as per HPI Patient History <Bhumi Addison MD - Last Filed: 05/17/23 22:02> Medical History (Updated 05/16/23 @ 08:10 by Zarina Gu DO) Skin cancer NSTEMI (non-ST elevated myocardial infarction) Diastolic heart failure Cardiac arrest Chest pain Hypertension Hyperlipidemia Coronary artery disease Left hamstring muscle strain UTI (urinary tract infection) Surgical History H/O right heart catheterization History of breast implant removal History of breast surgery History of appendectomy History of cholecystectomy History of total abdominal hysterectomy History of coronary artery stent placement Family History Father Hypertension Diabetes mellitus Mother Hypertension VT (myocardial infarction) Sister VT (myocardial infarction) S/P CABG x 4 Social History household members: children Smoking Status: Never smoker Smoking Status: Never smoker alcohol intake frequency: holidays/special occasions only Substance Use Type: does not use Exam <Bhumi Addison MD - Last Filed: 05/17/23 22:02> Narrative Exam Narrative: General: Frail-appearing older woman in no acute distress. Able to give a complete and coherent history. Well-nourished well-developed HEENT: Moist mucous membranes, normal sclera with reactive pupils, slightly flushed Neck: No JVD, supple, no significant cervical adenopathy Respiratory: Lungs are clear to auscultation, no wheezing no rales no rhonchi. Full and symmetrical air movement and they will speak in full sentences Cardiac: Regular rate and rhythm no murmurs no bruits Abdomen: Soft, nontender, good bowel tones, no flank pain Skin: Warm and dry, no rashes Neurologic: Globally weak Grossly neurologically intact with no obvious asymmetries or abnormalities Extremities: No trauma, compression socks in place with 2+ bilateral lower extremity edema that she states is her baseline Psych: Cooperative, appropriate insight and affect Initial Vital Signs Initial Vital Signs: Vital Signs Pulse Rate 71 05/16/23 05:31 Blood Pressure 205/90 H 05/16/23 05:31 Pulse Oximetry 99 05/16/23 05:31 <Zarina Gu DO - Last Filed: 05/16/23 13:33> Initial Vital Signs Initial Vital Signs: Vital Signs Pulse Rate 71 05/16/23 05:31 Blood Pressure 205/90 H 05/16/23 05:31 Pulse Oximetry 99 05/16/23 05:31 Course <Bhumi Addison MD - Last Filed: 05/17/23 22:02> Orders Ordered: ED Orders 05/16/23 05:36 XR chest 1V Stat 05/16/23 05:37 EKG-12 Lead Stat 05/16/23 06:25 Complete Blood Count AUTO DIFF Stat Comprehensive Metabolic Panel Stat Magnesium Stat NT-proBNP (BNP-Adult 18+) Stat Procalcitonin Stat Troponin I Stat 05/16/23 06:35 Respiratory Panel (Film Array) Stat Vital Signs Vital signs: Vital Signs - 8 hr 05/16/23 05:37 05/16/23 06:00 05/16/23 06:30 Temperature 98.2 F Pulse Rate 71 64 61 Respiratory Rate 22 Blood Pressure 205/90 H Pulse Oximetry 99 97 98 Oxygen Delivery Method Nasal Cannula Oxygen Flow Rate 2 05/16/23 07:00 05/16/23 07:10 05/16/23 07:10 Temperature Pulse Rate 60 63 Respiratory Rate Blood Pressure 153/67 H Pulse Oximetry 98 97 Oxygen Delivery Method Oxygen Flow Rate 05/16/23 07:30 05/16/23 07:31 05/16/23 07:31 Temperature Pulse Rate 66 64 Respiratory Rate Blood Pressure 166/72 H Pulse Oximetry 98 97 Oxygen Delivery Method Nasal Cannula Nasal Cannula Oxygen Flow Rate 3 3 05/16/23 08:00 05/16/23 08:01 05/16/23 08:01 Temperature Pulse Rate 65 64 Respiratory Rate Blood Pressure 190/74 H Pulse Oximetry 98 98 Oxygen Delivery Method Oxygen Flow Rate 05/16/23 08:23 Temperature 98.1 F Pulse Rate Respiratory Rate Blood Pressure Pulse Oximetry Oxygen Delivery Method Oxygen Flow Rate <Zarina Gu, - Last Filed: 05/16/23 13:33> Orders Ordered: ED Orders 05/16/23 05:36 XR chest 1V Stat 05/16/23 05:37 EKG-12 Lead Stat 05/16/23 06:25 Complete Blood Count AUTO DIFF Stat Comprehensive Metabolic Panel Stat Magnesium Stat NT-proBNP (BNP-Adult 18+) Stat Procalcitonin Stat Troponin I Stat 05/16/23 06:35 Respiratory Panel (Film Array) Stat Vital Signs Vital signs: Vital Signs - 8 hr 05/16/23 05:37 05/16/23 06:00 05/16/23 06:30 Temperature 98.2 F Pulse Rate 71 64 61 Respiratory Rate 22 Blood Pressure 205/90 H Pulse Oximetry 99 97 98 Oxygen Delivery Method Nasal Cannula Oxygen Flow Rate 2 05/16/23 07:00 05/16/23 07:10 05/16/23 07:10 Temperature Pulse Rate 60 63 Respiratory Rate Blood Pressure 153/67 H Pulse Oximetry 98 97 Oxygen Delivery Method Oxygen Flow Rate 05/16/23 07:30 05/16/23 07:31 05/16/23 07:31 Temperature Pulse Rate 66 64 Respiratory Rate Blood Pressure 166/72 H Pulse Oximetry 98 97 Oxygen Delivery Method Nasal Cannula Nasal Cannula Oxygen Flow Rate 3 3 05/16/23 08:00 05/16/23 08:01 05/16/23 08:01 Temperature Pulse Rate 65 64 Respiratory Rate Blood Pressure 190/74 H Pulse Oximetry 98 98 Oxygen Delivery Method Oxygen Flow Rate 05/16/23 08:23 Temperature 98.1 F Pulse Rate Respiratory Rate Blood Pressure Pulse Oximetry Oxygen Delivery Method Oxygen Flow Rate Medical Decision Making <Bhumi Addison MD - Last Filed: 05/17/23 22:02> Lab Data 05/16/23 06:25 05/16/23 06:25 Labs: Lab Results 05/16/23 05/16/23 Range/Units 06:25 06:35 WBC 7.0 (4.5-11.0) X10^3/uL RBC 5.30 H (4.0-5.2) X10^6/uL Hgb 12.7 (12.0-16.0) g/dL Hct 39.7 (36-46) % MCV 74.9 L (80-100) fL MCH 23.9 L (26-34) PG MCHC 31.9 (30-36) % RDW 19.4 H (11.6-14.8) % Plt Count 205 (150-400) X10^3/uL Neut % (Auto) 60.9 (50-75) % Lymph % (Auto) 29.3 (25-40) % [place] % (Auto) 7.3 (3-14) % Eos % (Auto) 2.0 (2-4) % Baso % (Auto) 0.5 (0-2) % Neut # (Auto) 4200 (4361-8525) /uL Lymph # (Auto) 2000 (2405-7599) /uL [place] # (Auto) 500 (0-900) /uL Eos # (Auto) 100 (0-450) /uL Baso # (Auto) 0 (0-100) /uL Sodium 136 L (137-145) mmol/L Potassium 4.0 (3.4-5.1) mmol/L Chloride 101 (98-107) mmol/L Carbon Dioxide 27 (22-32) mmol/L BUN 14 (7-17) mg/dL Creatinine 1.10 H (0.52-1.04) mg/dL Estimated GFR 49 L (>60) mL/min BUN/Creatinine Ratio 12.7 (6-22) Glucose 114 H (80-110) mg/dL Calcium 9.5 (8.4-10.2) mg/dL Magnesium 2.0 (1.6-2.3) mg/dL Total Bilirubin 0.6 (0.2-1.3) mg/dL AST TNP ALT 10 (<35) IU/L Alkaline Phosphatase 52 (38-126) U/L Troponin I 0.014 (0.01-0.034) ng/mL NT-Pro-B Natriuret Pep 460 H (<450) pg/mL Total Protein 6.9 (6.3-8.2) g/dL Albumin 3.9 (3.5-5.0) g/dL Globulin 3.0 (1.7-4.1) g/dL Albumin/Globulin Ratio 1.3 (1.0-2.8) Procalcitonin 0.06 (<0.5) ng/mL Chlamy pneumoniae PCR Not detected (Not Detect) Adenovirus (PCR) Not detected (Not Detect) B.parapertussis DNA PCR Not detected (Not Detecte) Coronavirus OC43 (PCR) Not detected (Not Detect) Coronavirus HKU1 (PCR) Not detected (Not Detect) Coronavirus 229E (PCR) Not detected (Not Detect) SARS-CoV-2 (PCR) Not detected (Not Detecte) Coronavirus NL63 (PCR) Not detected (Not Detect) Human Metapneumovir PCR Not detected (Not Detect) Influenza Type A (PCR) Not detected (Not Detect) Influenza Type B (PCR) Not detected (Not Detect) M. pneumoniae (PCR) Not detected (Not Detect) Parainfluenza 1 (PCR) Not detected (Not Detect) Parainfluenza 2 (PCR) Not detected (Not Detect) Parainfluenza 3 (PCR) Not detected (Not Detect) Parainfluenza 4 (PCR) Not detected (Not Detect) RSV (PCR) Not detected (Not Detect) Entero/Rhino (PCR) Not detected (Not Detect) MDM Narrative Medical decision making narrative: CC: 87-year-old woman with a cough for a week worse for the last 3 days and in the last 3 hours significantly more fatigued, dizzy and dyspneic. Not complaining of chest pain Complicating co-morbidities: Pulmonary fibrosis, home oxygen dependent, congestive heart failure, coronary artery disease Data collected from: patient, daughter Medical records reviewed: Discharge summary with hospitalization January of 2023 for congestive heart failure is reviewed Differential considered: Viral syndrome, bacterial pneumonia, congestive heart failure, acute coronary syndrome PE is felt to be less likely at this time Exam documented above, pertinent findings include: Slightly flushed but able to speak in full sentences, alert and appropriate. Nonproductive cough with pulmonary exam that is unremarkable. Chronic lower extremity edema that is unchanged Lab Test results independently reviewed as above. Pertinent findings: Independently reviewed EKG: Sinus rhythm at a rate of 61. Normal axis, prolonged QT at 497 milliseconds. No acute ischemic changes Imaging studies independently reviewed: Chest x-ray shows chronic findings with no new obvious congestive heart failure, cardiomegaly or pulmonary infiltrates Consultations: Treatments: Re-evaluations: Discussion: <Zarina Gu, - Last Filed: 05/16/23 13:33> Lab Data Labs: Lab Results 05/16/23 05/16/23 Range/Units 06:25 06:35 WBC 7.0 (4.5-11.0) X10^3/uL RBC 5.30 H (4.0-5.2) X10^6/uL Hgb 12.7 (12.0-16.0) g/dL Hct 39.7 (36-46) % MCV 74.9 L (80-100) fL MCH 23.9 L (26-34) PG MCHC 31.9 (30-36) % RDW 19.4 H (11.6-14.8) % Plt Count 205 (150-400) X10^3/uL Neut % (Auto) 60.9 (50-75) % Lymph % (Auto) 29.3 (25-40) % [place] % (Auto) 7.3 (3-14) % Eos % (Auto) 2.0 (2-4) % Baso % (Auto) 0.5 (0-2) % Neut # (Auto) 4200 (3909-8524) /uL Lymph # (Auto) 2000 (5002-4180) /uL [place] # (Auto) 500 (0-900) /uL Eos # (Auto) 100 (0-450) /uL Baso # (Auto) 0 (0-100) /uL Sodium 136 L (137-145) mmol/L Potassium 4.0 (3.4-5.1) mmol/L Chloride 101 (98-107) mmol/L Carbon Dioxide 27 (22-32) mmol/L BUN 14 (7-17) mg/dL Creatinine 1.10 H (0.52-1.04) mg/dL Estimated GFR 49 L (>60) mL/min BUN/Creatinine Ratio 12.7 (6-22) Glucose 114 H (80-110) mg/dL Calcium 9.5 (8.4-10.2) mg/dL Magnesium 2.0 (1.6-2.3) mg/dL Total Bilirubin 0.6 (0.2-1.3) mg/dL AST TNP ALT 10 (<35) IU/L Alkaline Phosphatase 52 (38-126) U/L Troponin I 0.014 (0.01-0.034) ng/mL NT-Pro-B Natriuret Pep 460 H (<450) pg/mL Total Protein 6.9 (6.3-8.2) g/dL Albumin 3.9 (3.5-5.0) g/dL Globulin 3.0 (1.7-4.1) g/dL Albumin/Globulin Ratio 1.3 (1.0-2.8) Procalcitonin 0.06 (<0.5) ng/mL Chlamy pneumoniae PCR Not detected (Not Detect) Adenovirus (PCR) Not detected (Not Detect) B.parapertussis DNA PCR Not detected (Not Detecte) Coronavirus OC43 (PCR) Not detected (Not Detect) Coronavirus HKU1 (PCR) Not detected (Not Detect) Coronavirus 229E (PCR) Not detected (Not Detect) SARS-CoV-2 (PCR) Not detected (Not Detecte) Coronavirus NL63 (PCR) Not detected (Not Detect) Human Metapneumovir PCR Not detected (Not Detect) Influenza Type A (PCR) Not detected (Not Detect) Influenza Type B (PCR) Not detected (Not Detect) M. pneumoniae (PCR) Not detected (Not Detect) Parainfluenza 1 (PCR) Not detected (Not Detect) Parainfluenza 2 (PCR) Not detected (Not Detect) Parainfluenza 3 (PCR) Not detected (Not Detect) Parainfluenza 4 (PCR) Not detected (Not Detect) RSV (PCR) Not detected (Not Detect) Entero/Rhino (PCR) Not detected (Not Detect) MDM Narrative Medical decision making narrative: CC: 87-year-old woman with a cough for a week worse for the last 3 days and in the last 3 hours significantly more fatigued, dizzy and dyspneic. Not complaining of chest pain Complicating co-morbidities: Pulmonary fibrosis, home oxygen dependent, congestive heart failure, coronary artery disease Data collected from: patient, daughter Medical records reviewed: Discharge summary with hospitalization January of 2023 for congestive heart failure is reviewed Differential considered: Viral syndrome, bacterial pneumonia, congestive heart failure, acute coronary syndrome PE is felt to be less likely at this time Exam documented above, pertinent findings include: Slightly flushed but able to speak in full sentences, alert and appropriate. Nonproductive cough with pulmonary exam that is unremarkable. Chronic lower extremity edema that is unchanged Lab Test results independently reviewed as above. Pertinent findings: Creatinine stable 1.1 Independently reviewed EKG: Sinus rhythm at a rate of 61. Normal axis, prolonged QT at 497 milliseconds. No acute ischemic changes Imaging studies independently reviewed: Chest x-ray shows chronic findings with no new obvious congestive heart failure, cardiomegaly or pulmonary infiltrates Consultations: Treatments: Re-evaluations: Discussion: Dr. Gu-patient signed out to me by Dr. Addison I have seen evaluated patient myself. Patient is chronically on oxygen. She has had upper respiratory like infections with nonproductive cough ongoing for couple days. No significant fever. But generally has decreased appetite but maintaining drinking. At this time no need for antibiotics or admission. Blood work and imaging has been reviewed. Discussed results with family now agree to go. #65: Appropriate Treatment for Patients with URI x The patient was diagnosed with upper respiratory infection and was not prescribed or dispensed an antibiotic. [SATISFIES MIPS PERFORMANCE] [] The patient has competing comorbid condition within the last 12 months. The comorbid condition was [] (e.g., neutropenia, cystic fibrosis, chronic bronchitis, pulmonary edema, respiratory failure, rheumatoid lung disease). [MIPS PERFORMANCE EXCEPTION/EXCLUSION] [] The patient is already on antibiotics, or has taken them within the last 30 days. [MIPS PERFORMANCE EXCEPTION/EXCLUSION] [] The patient had a competing diagnosis of [] (e.g. acute otitis media, chronic sinusitis, cellulitis, UTI, etc.). [[facility] PERFORMANCE EXCEPTION/EXCLUSION] [] The patient was diagnosed with upper respiratory infection and was prescribed or dispensed an antibiotic. [DOES NOT SATISFY MIPS PERFORMANCE] Discharge Plan Departure Patient Disposition: Home Clinical Impression: Upper respiratory infection Instructions: DI for Viral Upper Respiratory Infection -- Adult Activity Restrictions/Additional Instructions: *You have been diagnosed with upper respiratory infection *What to do: At this time no need for antibiotics. This will take time. Please continue to stay hydrated eat as you want. Tylenol Motrin as needed for pain or fever *Continue to take medications as directed *Follow up with your primary care provider in 2-3 days or call [phone] *Return to ER if you should have increasing oxygen 4-5 L, decreased appetite increasing confusion or any new, worsening or concerning symptoms Prescriptions: No Action aspirin 81 MG tablet,delayed release (DR/EC) 81 mg PO DAILY Qty: 0 ranolazine 500 mg tablet extended release 12 hr 500 mg PO BID pantoprazole 40 mg Tablet,Delayed Release (Dr/Ec) 40 mg PO DAILY escitalopram oxalate 20 mg Tablet 20 mg PO DAILY alprazolam 0.5 mg tablet 0.5 mg PO Q6HR metoprolol tartrate 50 mg Tablet 50 mg PO TID Qty: 60 0RF benzonatate 100 mg capsule 100 mg PO TID PRN (Reason: cough) Qty: 20 0RF furosemide 20 mg tablet 10 mg PO DAILY Jardiance 10 mg tablet 10 mg PO DAILY guaifenesin [Mucus Relief ER] 600 mg Tablet Extended Release 12hr 1,200 mg PO BID Qty: 30 0RF azithromycin 500 mg tablet 500 mg PO DAILY Qty: 2 0RF prednisone 20 mg tablet 40 mg PO DAILY Qty: 6 0RF Rx Instructions: take 40mg for 2 days on 01/16 and 01/17, 20mg for 2 days on 01/18 and 01/19 nitroglycerin 0.4 mg tablet, sublingual 1 tab sublingual [id number] PRN (Reason: Chest Pain) Patient Comments: take it when needed, last dose unknown rosuvastatin 40 mg tablet 40 mg PO QPM oxycodone-acetaminophen 5-325 mg tablet 1 tab PO Q6H PRN (Reason: pain) Qty: 14 0RF hydralazine 10 mg tablet 10 mg PO QID Qty: 20 0RF Referrals: Zoe Bass PA-C [Primary Care Provider] - Stand Alone Forms: Patient Portal/API
--- NOTE | 2023-05-16 05:36 | DI.RAD.S_ITS ---
PROCEDURE: XR CHEST 1V INDICATIONS: cough TECHNIQUE: One view of the chest was acquired. COMPARISON: CT, CT CHEST WO CON, 12/13/2022, 13:16. [facility], CR, XR CHEST 1V, 02/09/2023, 18:40. [facility], CR, XR CHEST 1V, 01/11/2023, 12:06. FINDINGS: Surgical changes and devices: None. Lungs and pleura: Diffusely pulmonary interstitium, unchanged.. No pleural effusions or pneumothorax. Mediastinum: Mediastinal contours appear normal. Heart size is normal. Bones and chest wall: No suspicious bony lesions. Overlying soft tissues appear unremarkable. IMPRESSION: 1. Chronic prominence of pulmonary interstitium. No acute cardiopulmonary disease. No significant discrepancy with the night order selector radiology preliminary report. Dictated by: Luann Bradshaw M.D. on 05/16/2023 at 8:36 Approved by: Luann Bradshaw M.D. on 05/16/2023 at 8:38
[2023-05-16 06:46] LABS: Add Manual Diff / Slide Review NO; Basophils Absolute Auto 0 /uL (0-100); Basophils Percent Auto 0.5 % (0-2); Eosinophils Absolute Auto 100 /uL (0-450); Hematocrit 39.7 % (36-46); Hemoglobin 12.7 g/dL (12.0-16.0); Lymphocytes Absolute Auto 2000 /uL (1100-4500); Lymphocytes Percent Auto 29.3 % (25-40); Mean Corpuscular HGB Conc 31.9 % (30-36); Mean Corpuscular Hemoglobin 23.9 PG (26-34); Mean Corpuscular Volume 74.9 fL (80-100); Monocytes Absolute Auto 500 /uL (0-900); Monocytes Percent Auto 7.3 % (3-14); Neutrophils Absolute Auto 4200 /uL (1500-7000); Neutrophils Percent Auto 60.9 % (50-75); Platelet Count 205 X10^3/uL (150-400); Red Cell Distribution Width 19.4 % (11.6-14.8)
[2023-05-16 06:56] LABS: Alanine Aminotransferase 10 IU/L (<35); Albumin 3.9 g/dL (3.5-5.0); Albumin Globulin Ratio 1.3 (1.0-2.8); Alkaline Phosphatase 52 U/L (38-126); BUN Creatinine Ratio 12.7 (6-22); Bilirubin Total 0.6 mg/dL (0.2-1.3); Blood Urea Nitrogen 14 mg/dL (7-17); Calcium 9.5 mg/dL (8.4-10.2); Carbon Dioxide 27 mmol/L (22-32); Chloride 101 mmol/L (98-107); Estimated Glomerular Filt Rate 49 mL/min (>60); Glucose 114 mg/dL (80-110); HEMOLYSIS < 15 (0-50); Sodium 136 mmol/L (137-145); Total Protein 6.9 g/dL (6.3-8.2)
[2023-05-16 07:08] LABS: NT-proBNP (BNP-Adult 18+) 460 pg/mL (<450); Troponin I 0.014 ng/mL (0.01-0.034)
[2023-05-16 07:13] LABS: Procalcitonin 0.06 ng/mL (<0.5)
[2023-05-16 07:36] LABS: Adenovirus Not Detected (Not Detect); B. parapertussis Not Detected (Not Detecte); Bordetella pertussis Not Detected (Not Detect); Chlamydophila pneumoniae Not Detected (Not Detect); Coronavirus 229E Not Detected (Not Detect); Coronavirus HKU1 Not Detected (Not Detect); Coronavirus NL 63 Not Detected (Not Detect); Coronavirus OC43 Not Detected (Not Detect); Human Metapneumovirus Not Detected (Not Detect); Human Rhinovirus/Enterovirus Not Detected (Not Detect); Influenza A Not Detected (Not Detect); Influenza B Not Detected (Not Detect); Mycoplasma pneumoniae Not Detected (Not Detect); Parainfluenza Virus 1 Not Detected (Not Detect); Parainfluenza Virus 2 Not Detected (Not Detect); Parainfluenza Virus 3 Not Detected (Not Detect); Parainfluenza Virus 4 Not Detected (Not Detect); Respiratory Syncytial Virus Not Detected (Not Detect); SARS- CoV-2 Not Detected (Not Detecte)
[2023-05-19 14:48] LABS: Aspartate Aminotransferase 25 IU/L (14-36)
== END 2023-05-16 08:24 | disposition home or self-care (01) ==
PROVIDERS: Emergency Medicine; Emergency Provider Emergency Medicine; Family Provider Internal Medicine; PCP Physician Assistant Medical
DX: J06.9 Acute upper respiratory infection, unspecified (principal); R07.9 Chest pain, unspecified; Z20.822 Contact with and (suspected) exposure to COVID-19
CPT/HCPCS: 36415; 71045; 80053; 83735; 83880; 84145; 84484; 85025; 87633; 93005; 99284

== ENCOUNTER 2023-08-12 11:21 | Emergency (ER) | payer MEDICARE, OTHER, SELFPAY ==
[2023-01-11 15:28] VITALS: BMI 35.6
[2023-08-12] VITALS (14 sets, daily range): BP systolic 140–193; BP diastolic 66–105; PULSE 58–67; RESP 13–23; TEMP 37.1; O2SAT 98–99; BMI 39.9
--- NOTE | 2023-08-12 11:35 | DI.RAD.S_ITS ---
PROCEDURE: XR RIBS LT MIN 3V W CXR1V INDICATIONS: fall/pain/shortness of breath TECHNIQUE: 2 views of the ribs were acquired, along with a single view chest. COMPARISON: None. FINDINGS: Surgical changes and devices: None. Bones and chest wall: No fractures or dislocations. No suspicious bony lesions. Overlying soft tissues appear unremarkable. Lungs and pleura: No pleural effusions or pneumothorax. Lungs appear clear. Mediastinum: Mediastinal contours appear normal. Heart size is enlarged. IMPRESSION: No displaced rib fracture or pneumothorax. Dictated by: Edmundo Deng M.D. on 08/12/2023 at 12:47 Approved by: Edmundo Deng M.D. on 08/12/2023 at 12:47
[2023-08-12 12:24] LABS: Lactate (Lactic Acid) 2.6 mmol/L (0.7-2.1)
[2023-08-12 12:25] LABS: Alanine Aminotransferase 9 IU/L (<35); Albumin 4.1 g/dL (3.5-5.0); Albumin Globulin Ratio 1.3 (1.0-2.8); Alkaline Phosphatase 55 U/L (38-126); Aspartate Aminotransferase 18 IU/L (14-36); BUN Creatinine Ratio 15.3 (6-22); Bilirubin Total 0.6 mg/dL (0.2-1.3); Blood Urea Nitrogen 17 mg/dL (7-17); Calcium 9.3 mg/dL (8.4-10.2); Carbon Dioxide 29 mmol/L (22-32); Chloride 105 mmol/L (98-107); Estimated Glomerular Filt Rate 49 mL/min (>60); Globulin 3.1 g/dL (1.7-4.1); Glucose 128 mg/dL (80-110); Sodium 140 mmol/L (137-145); Total Protein 7.2 g/dL (6.3-8.2)
[2023-08-12 12:37] LABS: Troponin I < 0.012 ng/mL (0.01-0.034)
[2023-08-12 13:47] LABS: Add Manual Diff / Slide Review NO; Basophils Absolute Auto 0 /uL (0-100); Basophils Percent Auto 0.4 % (0-2); Eosinophils Absolute Auto 200 /uL (0-450); Eosinophils Percent Auto 2.7 % (2-4); Hematocrit 37.7 % (36-46); Hemoglobin 12.1 g/dL (12.0-16.0); Lymphocytes Absolute Auto 2200 /uL (1100-4500); Lymphocytes Percent Auto 27.5 % (25-40); Mean Corpuscular Hemoglobin 24.7 PG (26-34); Mean Corpuscular Volume 77.1 fL (80-100); Monocytes Absolute Auto 700 /uL (0-900); Monocytes Percent Auto 9.1 % (3-14); Neutrophils Absolute Auto 4900 /uL (1500-7000); Neutrophils Percent Auto 60.3 % (50-75); Platelet Count 216 X10^3/uL (150-400); Red Blood Cell Count 4.89 X10^6/uL (4.0-5.2); Red Cell Distribution Width 19.6 % (11.6-14.8); White Blood Cell Count 8.1 X10^3/uL (4.5-11.0)
[2023-08-12 13:51] LABS: NT-proBNP (BNP-Adult 18+) 530 pg/mL (<450)
[2023-08-12 13:52] LABS: Reflexed Lactate in 2 Hours Y
[2023-08-12 13:53] LABS: HEMOLYSIS 153 (0-50)
[2023-08-12 14:06] LABS: Lactate 2HR (Lactic Acid Rflx) 1.7 mmol/L (0.7-2.1)
--- NOTE | 2023-08-12 14:28 | ED.FALL ---
HPI - Fall General Chief Complaint: Shortness of Breath/Dyspnea Stated Complaint: fall T-3/ L/side pain/back pain Time Seen by Provider: 08/12/23 14:15 Source: patient Mode of arrival: Wheelchair History of Present Illness HPI Narrative: 87-year-old female here with left-sided chest wall pain after a ground level fall 3 days ago. Says that she got tangled up in her walker and fell down did not hit her head, she has not on blood thinners. She reports pain on the left side of her chest and in her lower back on the left side with breathing. She is oxygen dependent, has gone from 2-3 L of oxygen. She has not having ischemic chest pain she has not having abdominal pain she has not having vomiting she does not have a headache she does not have any new numbness or weakness. The left leg also has a bit of an abrasion below the knee. Related Data Home Medications Medication Instructions Recorded Confirmed aspirin 81 mg tablet,delayed 81 mg PO DAILY ##0 05/14/17 01/11/23 release nitroglycerin 0.4 mg sublingual 1 tab sublingual [id number] PRN Chest 11/18/18 01/11/23 tablet Pain rosuvastatin 40 mg tablet 40 mg PO QPM 11/18/18 01/11/23 ranolazine 500 mg tablet,extended 500 mg PO BID 02/09/20 01/11/23 release,12 hr escitalopram oxalate 20 mg tablet 20 mg PO DAILY 03/06/21 01/11/23 pantoprazole 40 mg tablet,delayed 40 mg PO DAILY 03/06/21 01/11/23 release alprazolam 0.5 mg tablet 0.5 mg PO Q6HR anxiety 03/10/21 01/11/23 furosemide 20 mg tablet 10 mg PO DAILY 01/11/23 01/11/23 empagliflozin 10 mg tablet 10 mg PO DAILY 01/14/23 01/14/23 (Jardiance) Previous Rx's Medication Instructions Recorded metoprolol tartrate 50 mg tablet 50 mg PO TID #60 tabs 03/11/21 oxycodone-acetaminophen 5 mg-325 1 tab PO Q6H PRN pain #14 tabs 06/14/21 mg tablet benzonatate 100 mg capsule 100 mg PO TID PRN cough #20 caps 08/01/23 azithromycin 500 mg tablet 500 mg PO DAILY #2 tabs 01/15/23 guaifenesin 600 mg tablet, 1,200 mg (2 x 600 mg) PO BID #30 01/15/23 extended release 12 hr (Mucus tabs Relief ER) prednisone 20 mg tablet 40 mg (2 x 20 mg) PO DAILY #6 tabs 01/15/23 hydralazine 10 mg tablet 10 mg PO QID #20 tabs 02/09/23 Allergies Allergy/AdvReac Type Severity Reaction Status Date / Time ibuprofen [IBUPROFEN] Allergy Severe Rash Verified 02/09/23 18:38 Iodinated Contrast Media Allergy Severe Unconscious Verified 02/09/23 18:38 [IODINATED CONTRAST- ORAL AND IV DYE] morphine [MORPHINE] Allergy Severe Rash Verified 02/09/23 18:38 naproxen [From ALEVE] Allergy Severe Rash Verified 02/09/23 18:38 telmisartan [TELMISARTAN] Allergy Severe Rash Verified 02/09/23 18:38 Patient History Medical History (Updated 08/12/23 @ 14:30 by Gus Hickey MD) Skin cancer NSTEMI (non-ST elevated myocardial infarction) Diastolic heart failure Cardiac arrest Chest pain Hypertension Hyperlipidemia Coronary artery disease Left hamstring muscle strain UTI (urinary tract infection) Surgical History H/O right heart catheterization History of breast implant removal History of breast surgery History of appendectomy History of cholecystectomy History of total abdominal hysterectomy History of coronary artery stent placement Family History Father Hypertension Diabetes mellitus Mother Hypertension SD (myocardial infarction) Sister SD (myocardial infarction) S/P CABG x 4 Social History household members: children Smoking Status: Never smoker Smoking Status: Never smoker alcohol intake frequency: holidays/special occasions only Substance Use Type: does not use Exam Narrative Exam Narrative: Alert, no acute distress HEENT: Normocephalic, atraumaitic moist mucus membranes, pupils are equal round and reactive extraocular movements are intact Neck: Supple no midline tenderness Chest wall: There is no crepitance. There is bruising along the posterior chest wall on the left side. No crepitance. There is no tenderness of the cervical thoracic or lumbar spine in the midline. She has a mild left flank tenderness without abrasion or bruising. Lungs: Clear to ascultaion, no respiratory distress. Breath sounds are equal she is speaking in full sentences. Heart: Regular rhythm and rate no murmur Abdomen: Normal bowel sounds, soft and nontender Extremeties: Full range of motion no deformity. Abrasion to left leg just below the knee good active range of motion of the knee. Neuro: Alert and oriented, normal speech moves x4 Initial Vital Signs Initial Vital Signs: Vital Signs Temperature 98.8 F 08/12/23 11:26 Pulse Rate 59 L 08/12/23 11:26 Respiratory Rate 22 08/12/23 11:26 Blood Pressure 140/105 H 08/12/23 11:26 Pulse Oximetry 98 08/12/23 11:26 Oxygen Delivery Method Nasal Cannula 08/12/23 11:26 Oxygen Flow Rate 3 08/12/23 11:26 Course Orders Ordered: ED Orders 08/12/23 11:35 XR ribs LT min 3V w CXR1V Stat EKG-12 Lead Stat Measure peak expiratory flow ONCE RT Consult Eval and Treat NOW 08/12/23 12:00 Comprehensive Metabolic Panel Stat Lactate (Lactic Acid) Stat NT-proBNP (BNP-Adult 18+) Stat Troponin I Stat 08/12/23 13:20 Complete Blood Count AUTO DIFF Stat Prothrombin Time INR Stat Vital Signs Vital signs: Vital Signs - 8 hr 08/12/23 11:26 08/12/23 11:41 08/12/23 11:42 Temperature 98.8 F Pulse Rate 59 L 67 Respiratory Rate 22 23 Blood Pressure 140/105 H 193/81 H Pulse Oximetry 98 98 Oxygen Delivery Method Nasal Cannula Oxygen Flow Rate 3 08/12/23 11:42 08/12/23 12:00 08/12/23 12:27 Temperature Pulse Rate 66 59 L Respiratory Rate 15 19 Blood Pressure 179/74 H Pulse Oximetry 98 99 Oxygen Delivery Method Oxygen Flow Rate 08/12/23 12:27 08/12/23 12:30 08/12/23 12:30 Temperature Pulse Rate 60 59 L Respiratory Rate 16 17 Blood Pressure 173/67 H Pulse Oximetry 99 99 Oxygen Delivery Method Oxygen Flow Rate 08/12/23 12:58 08/12/23 12:59 08/12/23 12:59 Temperature Pulse Rate 58 L 58 L Respiratory Rate 13 15 Blood Pressure 164/69 H Pulse Oximetry 98 99 Oxygen Delivery Method Oxygen Flow Rate 08/12/23 13:00 08/12/23 13:00 08/12/23 13:15 Temperature Pulse Rate 58 L Respiratory Rate 13 Blood Pressure 157/67 H 153/68 H Pulse Oximetry 99 Oxygen Delivery Method Oxygen Flow Rate 08/12/23 13:15 08/12/23 13:30 08/12/23 13:30 Temperature Pulse Rate 58 L 59 L Respiratory Rate 18 19 Blood Pressure 155/69 H Pulse Oximetry 99 99 Oxygen Delivery Method Oxygen Flow Rate 08/12/23 13:45 08/12/23 13:45 08/12/23 14:00 Temperature Pulse Rate 59 L Respiratory Rate 16 Blood Pressure 159/66 H 163/70 H Pulse Oximetry 99 Oxygen Delivery Method Oxygen Flow Rate 08/12/23 14:00 08/12/23 14:15 08/12/23 14:15 Temperature Pulse Rate 60 62 Respiratory Rate 13 16 Blood Pressure 162/69 H Pulse Oximetry 99 99 Oxygen Delivery Method Oxygen Flow Rate MDM - Fall Lab Data 08/12/23 13:20 08/12/23 12:00 Labs: Lab Results 08/12/23 08/12/23 Range/Units 12:00 13:20 WBC 8.1 (4.5-11.0) X10^3/uL RBC 4.89 (4.0-5.2) X10^6/uL Hgb 12.1 (12.0-16.0) g/dL Hct 37.7 (36-46) % MCV 77.1 L (80-100) fL MCH 24.7 L (26-34) PG MCHC 32.0 (30-36) % RDW 19.6 H (11.6-14.8) % Plt Count 216 (150-400) X10^3/uL Neut % (Auto) 60.3 (50-75) % Lymph % (Auto) 27.5 (25-40) % [place] % (Auto) 9.1 (3-14) % Eos % (Auto) 2.7 (2-4) % Baso % (Auto) 0.4 (0-2) % Neut # (Auto) 4900 (0220-2571) /uL Lymph # (Auto) 2200 (5943-9710) /uL [place] # (Auto) 700 (0-900) /uL Eos # (Auto) 200 (0-450) /uL Baso # (Auto) 0 (0-100) /uL Sodium 140 (137-145) mmol/L Potassium 4.0 (3.4-5.1) mmol/L Chloride 105 (98-107) mmol/L Carbon Dioxide 29 (22-32) mmol/L BUN 17 (7-17) mg/dL Creatinine 1.11 H (0.52-1.04) mg/dL Estimated GFR 49 L (>60) mL/min BUN/Creatinine Ratio 15.3 (6-22) Glucose 128 H (80-110) mg/dL Lactate 2.6 H 1.7 (0.7-2.1) mmol/L Calcium 9.3 (8.4-10.2) mg/dL Total Bilirubin 0.6 (0.2-1.3) mg/dL AST 18 (14-36) IU/L ALT 9 (<35) IU/L Alkaline Phosphatase 55 (38-126) U/L Troponin I < 0.012 (0.01-0.034) ng/mL NT-Pro-B Natriuret Pep 530 H (<450) pg/mL Total Protein 7.2 (6.3-8.2) g/dL Albumin 4.1 (3.5-5.0) g/dL Globulin 3.1 (1.7-4.1) g/dL Albumin/Globulin Ratio 1.3 (1.0-2.8) Imaging Data Chest x-ray: My Impression: Independent review of chest x-ray, no rib fractures no pneumothorax no infiltrate or pulmonary contusion Radiologist's Impression: [address] [address] XRay Report Signed Patient: Lida Townsend MR#: [id number] : 1935 Acct:[id number] Age/Sex: 87 / F Date of Service: 08/12/23 Loc: ED Accession Number: [id number] Procedure: XR ribs LT min 3V w CXR1V Ordering Provider: Gus Hickey MD PROCEDURE: XR RIBS LT MIN 3V W CXR1V INDICATIONS: fall/pain/shortness of breath TECHNIQUE: 2 views of the ribs were acquired, along with a single view chest. COMPARISON: None. FINDINGS: Surgical changes and devices: None. Bones and chest wall: No fractures or dislocations. No suspicious bony lesions. Overlying soft tissues appear unremarkable. Lungs and pleura: No pleural effusions or pneumothorax. Lungs appear clear. Mediastinum: Mediastinal contours appear normal. Heart size is enlarged. IMPRESSION: No displaced rib fracture or pneumothorax. Dictated by: Edmundo Deng M.D. on 08/12/2023 at 12:47 Approved by: Edmundo Deng M.D. on 08/12/2023 at 12:47 [facility] Narrative Medical decision making narrative: 87-year-old female with a ground level fall resulting in a chest wall injury. Not anticoagulated and did not hit her head exam is atraumatic mental status is baseline. She is endorsing some shortness of breath, does not have a pneumothorax does not have evidence of a pulmonary contusion or rib fracture on imaging. Given that she 3 days out from her injury, she appears quite stable. Does not have evidence of intra-abdominal injury. Recommended continued symptomatic treatment and primary care follow up Discharge Plan Departure Patient Disposition: Home Clinical Impression: Chest wall contusion Qualifiers: Encounter type: initial encounter Laterality: left Qualified Code(s): S20.212A - Contusion of left front wall of thorax, initial encounter Activity Restrictions/Additional Instructions: Emergency department workup today is reassuring. You definitely have a bruise on your chest wall, but underlying ribs look okay on x-ray and underlying lung looks okay on x-ray. I think it is safe to go home, you should expect to be sore for several more days. You can use acetaminophen (Tylenol) as needed for pain. Acetaminophen (tylenol) should be dosed at 650 mg every 4 hours or 1000mg every 6 hours. It can be given as needed but is more effective if given on a scheduled basis. Total daily dose should not exceed 4,000mg. If you were prescribed norco (hydrocodone/apap) or percocet (oxycodone/apap) each tablet of these contains 325 mg of acetaminophen and should be included when calculating daily dose. If you use the Tylenol number threes that you previously had, remember that each 1 of these has Tylenol in it generally is 325 mg. It is important to get a good deep breath in periodically during the day, activity as tolerated. Follow up soon with her primary care provider. If you are having increasing shortness of breath fevers or other acute symptoms recheck in the emergency department Prescriptions: No Action aspirin 81 MG tablet,delayed release (DR/EC) 81 mg PO DAILY Qty: 0 ranolazine 500 mg tablet extended release 12 hr 500 mg PO BID pantoprazole 40 mg Tablet,Delayed Release (Dr/Ec) 40 mg PO DAILY escitalopram oxalate 20 mg Tablet 20 mg PO DAILY alprazolam 0.5 mg tablet 0.5 mg PO Q6HR metoprolol tartrate 50 mg Tablet 50 mg PO TID Qty: 60 0RF benzonatate 100 mg capsule 100 mg PO TID PRN (Reason: cough) Qty: 20 0RF furosemide 20 mg tablet 10 mg PO DAILY Jardiance 10 mg tablet 10 mg PO DAILY guaifenesin [Mucus Relief ER] 600 mg Tablet Extended Release 12hr 1,200 mg PO BID Qty: 30 0RF azithromycin 500 mg tablet 500 mg PO DAILY Qty: 2 0RF prednisone 20 mg tablet 40 mg PO DAILY Qty: 6 0RF Rx Instructions: take 40mg for 2 days on 01/16 and 01/17, 20mg for 2 days on 01/18 and 01/19 nitroglycerin 0.4 mg tablet, sublingual 1 tab sublingual [id number] PRN (Reason: Chest Pain) Patient Comments: take it when needed, last dose unknown rosuvastatin 40 mg tablet 40 mg PO QPM oxycodone-acetaminophen 5-325 mg tablet 1 tab PO Q6H PRN (Reason: pain) Qty: 14 0RF hydralazine 10 mg tablet 10 mg PO QID Qty: 20 0RF Referrals: Zoe Bass PA-C [Primary Care Provider] - Stand Alone Forms: Patient Portal/API
[2023-08-12 14:36] LABS: INR 1.1 (0.9-1.3); Prothrombin Time 12.5 SECONDS (9.4-12.5)
== END 2023-08-12 14:42 | disposition home or self-care (01) ==
PROVIDERS: Emergency Provider Emergency Medicine; Family Provider Internal Medicine; PCP Physician Assistant Medical
DX: S20.212A Contusion of left front wall of thorax, initial encounter (principal); R06.02 Shortness of breath; W19.XXXA Unspecified fall, initial encounter
CPT/HCPCS: 36415; 71101; 80053; 83605; 83880; 84484; 85025; 85610; 99284

== ENCOUNTER 2023-09-23 12:03 | Emergency (ER) | payer MEDICARE, OTHER, SELFPAY ==
[2023-01-11 15:28] VITALS: BMI 35.6
[2023-09-23] VITALS (14 sets, daily range): BP systolic 128–200; BP diastolic 60–84; PULSE 63–72; RESP 13–27; TEMP 36.6; O2SAT 97–100
--- NOTE | 2023-09-23 12:40 | ED_ITS ---
HPI - General Adult General Chief complaint: Shortness of Breath/Dyspnea Stated complaint: Weakness/Lightheaded/Arm Pain Time Seen by Provider: 09/23/23 12:05 Source: patient Mode of arrival: Wheelchair History of Present Illness HPI narrative: 87-year-old female with extensive medical history including cardiac ischemia, CHF, syncopal episodes presents with her daughter with a chief complaint of 4 days of gradually worsening symptoms including runny nose, nasal congestion, sore throat cough. Additionally she just feels worn out and generally weak. She denies nausea, vomiting or diarrhea and has no urinary complaints. She denies any change in medications or oxygen requirements. She denies any trauma or injury. No recent travel Related Data Home Medications Medication Instructions Recorded Confirmed aspirin 81 mg tablet,delayed 81 mg PO DAILY ##0 05/14/17 01/11/23 release nitroglycerin 0.4 mg sublingual 1 tab sublingual [id number] PRN Chest 11/18/18 01/11/23 tablet Pain rosuvastatin 40 mg tablet 40 mg PO QPM 11/18/18 01/11/23 ranolazine 500 mg tablet,extended 500 mg PO BID 02/09/20 01/11/23 release,12 hr escitalopram oxalate 20 mg tablet 20 mg PO DAILY 03/06/21 01/11/23 pantoprazole 40 mg tablet,delayed 40 mg PO DAILY 03/06/21 01/11/23 release alprazolam 0.5 mg tablet 0.5 mg PO Q6HR anxiety 03/10/21 01/11/23 furosemide 20 mg tablet 10 mg PO DAILY 01/11/23 01/11/23 empagliflozin 10 mg tablet 10 mg PO DAILY 01/14/23 01/14/23 (Jardiance) Previous Rx's Medication Instructions Recorded metoprolol tartrate 50 mg tablet 50 mg PO TID #60 tabs 03/11/21 oxycodone-acetaminophen 5 mg-325 1 tab PO Q6H PRN pain #14 tabs 06/14/21 mg tablet benzonatate 100 mg capsule 100 mg PO TID PRN cough #20 caps 12/13/22 azithromycin 500 mg tablet 500 mg PO DAILY #2 tabs 01/15/23 guaifenesin 600 mg tablet, 1,200 mg (2 x 600 mg) PO BID #30 01/15/23 extended release 12 hr (Mucus tabs Relief ER) prednisone 20 mg tablet 40 mg (2 x 20 mg) PO DAILY #6 tabs 01/15/23 hydralazine 10 mg tablet 10 mg PO QID #20 tabs 02/09/23 Allergies Allergy/AdvReac Type Severity Reaction Status Date / Time ibuprofen [IBUPROFEN] Allergy Severe Rash Verified 02/09/23 18:38 Iodinated Contrast Media Allergy Severe Unconscious Verified 02/09/23 18:38 [IODINATED CONTRAST- ORAL AND IV DYE] morphine [MORPHINE] Allergy Severe Rash Verified 02/09/23 18:38 naproxen [From ALEVE] Allergy Severe Rash Verified 02/09/23 18:38 telmisartan [TELMISARTAN] Allergy Severe Rash Verified 02/09/23 18:38 Review of Systems Review of Systems Narrative: GENERAL: See HPI HEENT: See HPI RESPIRATORY: See HPI CARDIOVASCULAR: See HPI GASTROINTESTINAL: Denies nausea, vomiting, abdominal pain, diarrhea, constipation, melena. : Denies dysuria, frequency, incontinence, hematuria, urinary retention. MUSCULOSKELETAL: denies weakness, joint pain, or bony pain SKIN: Denies rash, skin lesions, or other NEUROLOGIC: Denies weakness, headache, numbness, change in speech, confusion, seizures, incoordination. PSYCHIATRIC: No concerning psychosocial issues. 12 point review of systems is negative except for those stated above Patient History Medical History (Updated 10/08/23 @ 00:01 by ) Skin cancer NSTEMI (non-ST elevated myocardial infarction) Diastolic heart failure Cardiac arrest Chest pain Hypertension Hyperlipidemia Coronary artery disease Left hamstring muscle strain UTI (urinary tract infection) Surgical History H/O right heart catheterization History of breast implant removal History of breast surgery History of appendectomy History of cholecystectomy History of total abdominal hysterectomy History of coronary artery stent placement Family History Father Hypertension Diabetes mellitus Mother Hypertension SC (myocardial infarction) Sister SC (myocardial infarction) S/P CABG x 4 Social History household members: children Smoking Status: Never smoker Smoking Status: Never smoker alcohol intake frequency: holidays/special occasions only Substance Use Type: does not use Exam Narrative Exam Narrative: GENERAL: [87] year old patient appears stated age. Well-developed patient, in mild distress. On nasal cannula, at her baseline HEAD: Atraumatic. Normocephalic. EYES: Pupils equal round and reactive. Extraocular motions intact. No scleral icterus. No injection or drainage. ENT: Nose without bleeding, purulent drainage. Throat without erythema, tonsillar hypertrophy or exudate. Airway patent. NECK: Trachea midline. Non tender CARDIOVASCULAR: Regular rate and rhythm without murmurs, gallops, or rubs. RESPIRATORY: Clear to auscultation. Breath sounds equal bilaterally. No wheezes, rales, or rhonchi. GASTROINTESTINAL: Abdomen soft, non-tender, nondistended. EXTREMITIES: No edema or joint tenderness. BACK: Nontender without deformity or crepitance. No flank tenderness. NEURO: AOx3. SKIN: No rash or erythema of visible areas Initial Vital Signs Initial Vital Signs: Vital Signs Temperature 97.8 F 09/23/23 12:09 Pulse Rate 63 09/23/23 12:09 Respiratory Rate 24 09/23/23 12:09 Blood Pressure 133/63 09/23/23 12:09 Pulse Oximetry 97 09/23/23 12:09 Oxygen Delivery Method Nasal Cannula 09/23/23 12:09 Oxygen Flow Rate 3 09/23/23 12:09 Course Orders Ordered: Discontinued Medications Acetaminophen (Acetaminophen 325 Mg Tablet) 975 mg PO NOW ONE Stop: 09/23/23 14:08 Last Admin: 09/23/23 14:10 Dose: 975 mg Documented By: KEITH Aspirin (Aspirin 81 Mg Chew Tab) 324 mg PO NOW ONE Stop: 09/23/23 12:42 Last Admin: 09/23/23 12:59 Dose: 324 mg Documented By: JOSHUA Sodium Chloride (Normal Saline 0.9%) 1,000 mls @ 150 mls/hr IV CONT AFIA Last Admin: 09/23/23 12:59 Dose: 150 mls/hr Documented By: JOSHUA Vital Signs Vital signs: Vital Signs - 8 hr 09/23/23 12:09 09/23/23 12:22 09/23/23 12:23 Temperature 97.8 F Pulse Rate 63 72 Respiratory Rate 24 27 H Blood Pressure 133/63 200/84 H Pulse Oximetry 97 97 Oxygen Delivery Method Nasal Cannula Nasal Cannula Oxygen Flow Rate 3 2 09/23/23 12:23 09/23/23 12:30 09/23/23 12:30 Temperature Pulse Rate 71 66 Respiratory Rate 19 15 Blood Pressure 199/84 H Pulse Oximetry 97 99 Oxygen Delivery Method Oxygen Flow Rate 09/23/23 13:00 09/23/23 13:01 09/23/23 13:01 Temperature Pulse Rate 64 65 Respiratory Rate 19 24 Blood Pressure 159/66 H Pulse Oximetry 99 99 Oxygen Delivery Method Oxygen Flow Rate 09/23/23 13:30 09/23/23 13:30 09/23/23 14:00 Temperature Pulse Rate 64 Respiratory Rate 13 Blood Pressure 157/65 H 178/76 H Pulse Oximetry 100 Oxygen Delivery Method Oxygen Flow Rate 09/23/23 14:00 09/23/23 14:30 09/23/23 14:31 Temperature Pulse Rate 66 63 Respiratory Rate 20 Blood Pressure 163/67 H Pulse Oximetry 100 99 Oxygen Delivery Method Oxygen Flow Rate 09/23/23 14:31 Temperature Pulse Rate 64 Respiratory Rate 14 Blood Pressure Pulse Oximetry 99 Oxygen Delivery Method Oxygen Flow Rate Medical Decision Making Lab Data 09/23/23 12:33 09/23/23 12:33 Labs: Lab Results 09/23/23 09/23/23 09/23/23 Range/Units 12:33 13:47 15:07 WBC 8.4 (4.5-11.0) X10^3/uL RBC 5.01 (4.0-5.2) X10^6/uL Hgb 12.2 (12.0-16.0) g/dL Hct 38.4 (36-46) % MCV 76.7 L (80-100) fL MCH 24.4 L (26-34) PG MCHC 31.8 (30-36) % RDW 19.2 H (11.6-14.8) % Plt Count 243 (150-400) X10^3/uL Neut % (Auto) 56.8 (50-75) % Lymph % (Auto) 31.1 (25-40) % [place] % (Auto) 9.1 (3-14) % Eos % (Auto) 2.3 (2-4) % Baso % (Auto) 0.7 (0-2) % Neut # (Auto) 4800 (7362-4638) /uL Lymph # (Auto) 2600 (6873-0992) /uL [place] # (Auto) 800 (0-900) /uL Eos # (Auto) 200 (0-450) /uL Baso # (Auto) 100 (0-100) /uL Sodium 139 (137-145) mmol/L Potassium 3.9 (3.4-5.1) mmol/L Chloride 103 (98-107) mmol/L Carbon Dioxide 27 (22-32) mmol/L BUN 16 (7-17) mg/dL Creatinine 1.27 H (0.52-1.04) mg/dL Estimated GFR 41 L (>60) mL/min BUN/Creatinine Ratio 12.6 (6-22) Glucose 145 H (80-110) mg/dL Calcium 9.3 (8.4-10.2) mg/dL Total Bilirubin 0.6 (0.2-1.3) mg/dL AST 44 H (14-36) IU/L ALT 9 (<35) IU/L Alkaline Phosphatase 56 (38-126) U/L Total Creatine Kinase 47 (30-135) U/L Troponin I 0.015 (0.01-0.034) ng/mL NT-Pro-B Natriuret Pep 471 H (<450) pg/mL Total Protein 7.4 (6.3-8.2) g/dL Albumin 4.4 (3.5-5.0) g/dL Globulin 3.0 (1.7-4.1) g/dL Albumin/Globulin Ratio 1.5 (1.0-2.8) Lipase 147 (23-300) U/L Procalcitonin 0.05 (<0.5) ng/mL Urine Color Yellow Urine Appearance Clear Urine pH 6.0 (4.5-8.0) Ur Specific [place] 1.020 (1.000-1.035) Urine Protein 1+ H (Negative) Urine Glucose (UA) 3+ H (Negative) g/dL Urine Ketones Negative (NEGATIVE) Urine Occult Blood Negative (Negative) Urine Nitrate Negative (Negative) Urine Bilirubin Negative (NEGATIVE) Urine Urobilinogen 0.2 (0.2) E.U./dL Ur Leukocyte Esterase Negative (NEGATIVE) Urine RBC 0-1/hpf (0-5/HPF) Urine WBC 0-1/hpf (0-5/HPF) Ur Squamous Epith Cells 10-30 /hpf H D (0-5/HPF) Urine Bacteria Occasional (0-1) (None) Hyaline Casts 0-1/lpf (None) Urine Mucus 1+ H (Negative) Urine Yeast 1-5/hpf H (None) Ur Culture Indicated? Cult not indicated Vol Urine Centrifuged 10ml (spun) Chlamy pneumoniae PCR Not detected (Not Detect) Adenovirus (PCR) Not detected (Not Detect) B.parapertussis DNA PCR Not detected (Not Detecte) Coronavirus OC43 (PCR) Not detected (Not Detect) Coronavirus HKU1 (PCR) Not detected (Not Detect) Coronavirus 229E (PCR) Not detected (Not Detect) SARS-CoV-2 (PCR) Not detected (Not Detecte) Coronavirus NL63 (PCR) Not detected (Not Detect) Human Metapneumovir PCR Not detected (Not Detect) Influenza Type A (PCR) Not detected (Not Detect) Influenza Type B (PCR) Not detected (Not Detect) M. pneumoniae (PCR) Not detected (Not Detect) Parainfluenza 1 (PCR) Not detected (Not Detect) Parainfluenza 2 (PCR) Not detected (Not Detect) Parainfluenza 3 (PCR) Not detected (Not Detect) Parainfluenza 4 (PCR) Not detected (Not Detect) RSV (PCR) Not detected (Not Detect) Entero/Rhino (PCR) Not detected (Not Detect) MDM Narrative Medical decision making narrative: [87] year old patient presents with weakness and lightheadedness Multiple etiologies for patient's symptoms considered including, but not limited to: [Cardiac ischemia versus infectious process versus anemia versus CHF versus other] Prior Charts reviewed in our EMR Primary Historian: patient Labs reviewed and interpreted by myself: No leukocytosis or left shift, no signs of anemia, primary electrolytes within normal range, creatinine slightly above baseline at 1.27 up from 1.11 Imaging reviewed: CXR notes cardiomegaly and moderate vascular congestion Patient's symptoms improved over duration of stay with above-stated therapies. Findings and discharge diagnosis discussed with patient/family followed by verbalization of understanding Return precautions discussed with patient/family whom verbalize understanding of diagnosis and plan Discharge Plan Departure Patient Disposition: Home Clinical Impression: Fatigue, General weakness Activity Restrictions/Additional Instructions: *You have been diagnosed with [fatigue and generalized weakness. Thankfully, as we discussed your history and physical exam as well as labs and imaging are reassuring and there is no evidence of a diagnosis that requires a specific or immediate intervention today.] *What to do: *Please continue to take your regular medications as directed. [ ] New medication prescriptions sent to your pharmacy: [ ] [ ] New medication written as a paper prescription [ ] No new medications given *Please follow up with your primary care provider in 2-3 days, call for an appointment. Let them know you were seen in the Emergency Department and that we ask that you be seen in follow up. We will electronically transmit a record of today's note if your PCP is in our system *Return to Emergency Department if you should have any new, worsening or concerning symptoms, such as [fever greater than 101 F, shaking chills, worsening pain, persistent vomiting or other bothersome symptoms] Prescriptions: No Action aspirin 81 MG tablet,delayed release (DR/EC) 81 mg PO DAILY Qty: 0 ranolazine 500 mg tablet extended release 12 hr 500 mg PO BID pantoprazole 40 mg Tablet,Delayed Release (Dr/Ec) 40 mg PO DAILY escitalopram oxalate 20 mg Tablet 20 mg PO DAILY alprazolam 0.5 mg tablet 0.5 mg PO Q6HR metoprolol tartrate 50 mg Tablet 50 mg PO TID Qty: 60 0RF benzonatate 100 mg capsule 100 mg PO TID PRN (Reason: cough) Qty: 20 0RF furosemide 20 mg tablet 10 mg PO DAILY Jardiance 10 mg tablet 10 mg PO DAILY guaifenesin [Mucus Relief ER] 600 mg Tablet Extended Release 12hr 1,200 mg PO BID Qty: 30 0RF azithromycin 500 mg tablet 500 mg PO DAILY Qty: 2 0RF prednisone 20 mg tablet 40 mg PO DAILY Qty: 6 0RF Rx Instructions: take 40mg for 2 days on 01/16 and 01/17, 20mg for 2 days on 01/18 and 01/19 nitroglycerin 0.4 mg tablet, sublingual 1 tab sublingual [id number] PRN (Reason: Chest Pain) Patient Comments: take it when needed, last dose unknown rosuvastatin 40 mg tablet 40 mg PO QPM oxycodone-acetaminophen 5-325 mg tablet 1 tab PO Q6H PRN (Reason: pain) Qty: 14 0RF hydralazine 10 mg tablet 10 mg PO QID Qty: 20 0RF Referrals: Zoe Bass PA-C [Primary Care Provider] - Stand Alone Forms: Patient Portal/API
--- NOTE | 2023-09-23 12:41 | DI.RAD.S_ITS ---
PROCEDURE: XR CHEST 1V INDICATIONS: chest pain / weakness TECHNIQUE: One view of the chest was acquired. COMPARISON: [facility], CR, XR CHEST 1V, 05/16/2023, 5:47. FINDINGS: Surgical changes and devices: None. Lungs and pleura: Lungs are clear. No pleural effusions or pneumothorax. Mediastinum: Heart size is enlarged. Moderate vascular congestion. Low lung volumes accentuate pulmonary interstitium and heart size. Bones and chest wall: No suspicious bony lesions. Overlying soft tissues appear unremarkable. Osteopenia and bilateral shoulder osteoarthritis IMPRESSION: Cardiomegaly and moderate vascular congestion accentuated by low lung volumes Approved by: Wu Jasso M.D. on 09/23/2023 at 12:43
[2023-09-23 12:54] LABS: Add Manual Diff / Slide Review NO; Basophils Absolute Auto 100 /uL (0-100); Basophils Percent Auto 0.7 % (0-2); Eosinophils Absolute Auto 200 /uL (0-450); Eosinophils Percent Auto 2.3 % (2-4); Hematocrit 38.4 % (36-46); Hemoglobin 12.2 g/dL (12.0-16.0); Lymphocytes Absolute Auto 2600 /uL (1100-4500); Lymphocytes Percent Auto 31.1 % (25-40); Mean Corpuscular HGB Conc 31.8 % (30-36); Mean Corpuscular Hemoglobin 24.4 PG (26-34); Mean Corpuscular Volume 76.7 fL (80-100); Monocytes Absolute Auto 800 /uL (0-900); Monocytes Percent Auto 9.1 % (3-14); Neutrophils Absolute Auto 4800 /uL (1500-7000); Neutrophils Percent Auto 56.8 % (50-75); Platelet Count 243 X10^3/uL (150-400); Red Blood Cell Count 5.01 X10^6/uL (4.0-5.2); Red Cell Distribution Width 19.2 % (11.6-14.8); White Blood Cell Count 8.4 X10^3/uL (4.5-11.0)
[2023-09-23] MEDS: ASPIRIN 81 MG CHEW TAB 324 MG PO (12:59)
[2023-09-23] MEDS: SODIUM CHLORIDE 0.9% 1,000 ML 150 ML IV (12:59)
[2023-09-23 13:00] LABS: Alanine Aminotransferase 9 IU/L (<35); Albumin 4.4 g/dL (3.5-5.0); Albumin Globulin Ratio 1.5 (1.0-2.8); Alkaline Phosphatase 56 U/L (38-126); Aspartate Aminotransferase 44 IU/L (14-36); BUN Creatinine Ratio 12.6 (6-22); Bilirubin Total 0.6 mg/dL (0.2-1.3); Blood Urea Nitrogen 16 mg/dL (7-17); Calcium 9.3 mg/dL (8.4-10.2); Carbon Dioxide 27 mmol/L (22-32); Chloride 103 mmol/L (98-107); Creatine Kinase 47 U/L (30-135); Estimated Glomerular Filt Rate 41 mL/min (>60); Glucose 145 mg/dL (80-110); HEMOLYSIS 32 (0-50); Lipase 147 U/L (23-300); Potassium 3.9 mmol/L (3.4-5.1); Sodium 139 mmol/L (137-145); Total Protein 7.4 g/dL (6.3-8.2)
[2023-09-23 13:09] LABS: NT-proBNP (BNP-Adult 18+) 471 pg/mL (<450)
[2023-09-23 13:12] LABS: Troponin I 0.015 ng/mL (0.01-0.034)
[2023-09-23 13:16] LABS: Procalcitonin 0.05 ng/mL (<0.5)
[2023-09-23] MEDS: ACETAMINOPHEN 325 MG TABLET 975 MG PO (14:10)
--- NOTE | 2023-09-23 15:14 | PC.NURSE ---
Pt up to [facility] with stand by assist. Pt stated that she became very dizzy. O2 dropped to 89%. Dr Nunez notified.
[2023-09-23 15:17] LABS: Appearance Urine UA CLEAR; Bilirubin Urine UA NEGATIVE (NEGATIVE); Color Urine UA YELLOW; Glucose Urine UA 3+ g/dL (Negative); Ketones Urine UA NEGATIVE (NEGATIVE); Leukocyte Esterase Urine UA NEGATIVE (NEGATIVE); Nitrite Urine UA NEGATIVE (Negative); Occult Blood Urine UA NEGATIVE (Negative); Protein Urine UA 1+ (Negative); Urobilinogen Urine UA 0.2 E.U./dL (0.2)
[2023-09-23 15:24] LABS: Bacteria Urine Occasional (0-1); RBC Urine 0-1/HPF (0-5/HPF); Squamous Epithelial Cell Urine 10-30 /HPF (0-5/HPF); Urine Volume 10mL (spun); WBC Urine 0-1/HPF (0-5/HPF)
[2023-09-23 15:25] LABS: Culture Indicated Urine Cult Not Indicated; Hyaline Casts Urine 0-1/LPF; Mucus Urine 1+ (Negative)
[2023-09-23 15:49] LABS: Adenovirus Not Detected (Not Detect); B. parapertussis Not Detected (Not Detecte); Bordetella pertussis Not Detected (Not Detect); Chlamydophila pneumoniae Not Detected (Not Detect); Coronavirus 229E Not Detected (Not Detect); Coronavirus HKU1 Not Detected (Not Detect); Coronavirus NL 63 Not Detected (Not Detect); Coronavirus OC43 Not Detected (Not Detect); Human Metapneumovirus Not Detected (Not Detect); Human Rhinovirus/Enterovirus Not Detected (Not Detect); Influenza A Not Detected (Not Detect); Influenza B Not Detected (Not Detect); Mycoplasma pneumoniae Not Detected (Not Detect); Parainfluenza Virus 1 Not Detected (Not Detect); Parainfluenza Virus 2 Not Detected (Not Detect); Parainfluenza Virus 3 Not Detected (Not Detect); Parainfluenza Virus 4 Not Detected (Not Detect); Respiratory Syncytial Virus Not Detected (Not Detect); SARS- CoV-2 Not Detected (Not Detecte)
== END 2023-09-23 16:20 | disposition home or self-care (01) ==
PROVIDERS: Emergency Provider Emergency Medicine; Family Provider Internal Medicine; PCP Physician Assistant Medical
DX: R53.83 Other fatigue (principal); R53.1 Weakness; R05.9 Cough, unspecified; R07.9 Chest pain, unspecified; Z20.822 Contact with and (suspected) exposure to COVID-19; Z79.899 Other long term (current) drug therapy
CPT/HCPCS: 71045; 80053; 81001; 82550; 83690; 83880; 84145; 84484; 85025; 87633; 93005; 93010; 99284; 99285

== ENCOUNTER → 2024-01-19 08:50 | Outpatient (CLI) | payer MEDICARE, OTHER, SELFPAY ==
[2023-01-11 15:28] VITALS: BMI 35.6
--- NOTE | 2024-01-19 08:51 | DI.CT.S_ITS ---
PROCEDURE: CT SINUS SCREEN WO CON INDICATIONS: SINUS INFECTION TECHNIQUE: Noncontrast 3.0 mm axial images acquired from the frontal sinuses to the mid-sella, with coronal and sagittal reformats. For radiation dose reduction, the following was used: automated exposure control, adjustment of mA and/or kV according to patient size. COMPARISON: [facility], CT, CT SINUS WITHOUT CONTRAST, 11/08/2021, 10:38. FINDINGS: Image quality: Excellent. Maxillary Sinuses: No bony remodeling or destruction. Sinuses are clear. Ethmoid Air Cells: No bony remodeling or destruction. Sinuses are clear. Sphenoid Sinuses: No bony remodeling or destruction. Sinuses are clear. Frontal Sinuses: Surgical changes of the anterior frontal sinus, with craniotomy changes. There is mucosal thickening of the maxillary sinuses, which persists compared with prior. Ostiomeatal Complexes: Ostiomeatal complexes are patent. No [place] cells. Miscellaneous: Visualized intra-orbital contents are normal. No ramy bullosa or paradoxical turbinate curvature. No nasal septal deviation. IMPRESSION: Bifrontal craniotomy. Mucosal thickening of the frontal sinuses, with bony remodeling to suggest acute on chronic etiology. Dictated by: Grady Dela Cruz M.D. on 01/25/2024 at 15:02 Approved by: Grady Dela Cruz M.D. on 01/25/2024 at 15:09
== END ==
LOC: CT 08:50
PROVIDERS: Family Provider Internal Medicine; PCP Physician Assistant Medical; Referring Provider Physician Assistant Medical; Visit Provider Physician Assistant Medical
DX: J32.1 Chronic frontal sinusitis; Z98.890 Other specified postprocedural states
CPT/HCPCS: 70486

== ENCOUNTER 2024-01-25 16:20 | Inpatient (IN) | payer MEDICARE, OTHER, SELFPAY ==
[2023-01-11 15:28] VITALS: BMI 35.6
[2024-01-25] VITALS (18 sets, daily range): BP systolic 123–197; BP diastolic 45–79; PULSE 63–88; RESP 0–30; TEMP 35.8–36.4; O2SAT 92–99; BMI 41.5; BMI 42.5
--- NOTE | 2024-01-25 16:53 | DI.RAD.S_ITS ---
PROCEDURE: XR CHEST 1V INDICATIONS: Shortness of breath TECHNIQUE: One view of the chest was acquired. COMPARISON: [facility], CR, XR CHEST 1V, 09/23/2023, 12:45. [facility], CR, XR CHEST 1V, 05/16/2023, 5:47. FINDINGS: Surgical changes and devices: None. Lungs and pleura: Moderately prominent interstitium. No drainable effusions. Possible trace effusions versus thickening. Low lung volumes. Mediastinum: Cardiomegaly unchanged Bones and chest wall: Degenerative findings IMPRESSION: Prominence of the interstitium could represent edema in the setting of cardiomegaly. Possible trace effusions. Differential includes atypical infection. Consider future imaging surveillance to assess for resolution. Low lung volumes. Dictated by: Jeramy Wilcox M.D. on 01/25/2024 at 17:21 Approved by: Jeramy Wilcox M.D. on 01/25/2024 at 17:22
--- NOTE | 2024-01-25 17:36 | EKG_ITS ---
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
[2024-01-25 18:05] LABS: Adenovirus Not Detected (Not Detect); B. parapertussis Not Detected (Not Detecte); Bordetella pertussis Not Detected (Not Detect); Chlamydophila pneumoniae Not Detected (Not Detect); Coronavirus 229E Not Detected (Not Detect); Coronavirus HKU1 Not Detected (Not Detect); Coronavirus NL 63 Not Detected (Not Detect); Coronavirus OC43 Not Detected (Not Detect); Human Metapneumovirus Not Detected (Not Detect); Human Rhinovirus/Enterovirus Not Detected (Not Detect); Influenza A Not Detected (Not Detect); Influenza B Not Detected (Not Detect); Mycoplasma pneumoniae Not Detected (Not Detect); Parainfluenza Virus 1 Not Detected (Not Detect); Parainfluenza Virus 2 Not Detected (Not Detect); Parainfluenza Virus 3 Not Detected (Not Detect); Parainfluenza Virus 4 Not Detected (Not Detect); Respiratory Syncytial Virus Not Detected (Not Detect); SARS- CoV-2 Not Detected (Not Detecte)
[2024-01-25 18:22] LABS: Add Manual Diff / Slide Review NO; Basophils Absolute Auto 100 /uL (0-100); Basophils Percent Auto 1.1 % (0-2); Eosinophils Absolute Auto 200 /uL (0-450); Eosinophils Percent Auto 2.9 % (2-4); Hematocrit 37.1 % (36-46); Hemoglobin 11.9 g/dL (12.0-16.0); Lymphocytes Absolute Auto 2300 /uL (1100-4500); Lymphocytes Percent Auto 29.8 % (25-40); Mean Corpuscular Hemoglobin 23.9 PG (26-34); Mean Corpuscular Volume 74.7 fL (80-100); Monocytes Absolute Auto 800 /uL (0-900); Monocytes Percent Auto 10.4 % (3-14); Neutrophils Absolute Auto 4400 /uL (1500-7000); Neutrophils Percent Auto 55.8 % (50-75); Platelet Count 228 X10^3/uL (150-400); Red Blood Cell Count 4.97 X10^6/uL (4.0-5.2); Red Cell Distribution Width 21.4 % (11.6-14.8); White Blood Cell Count 7.8 X10^3/uL (4.5-11.0)
[2024-01-25 18:43] LABS: INR 1.1 (0.9-1.3); Prothrombin Time 13.1 SECONDS (9.4-12.5)
[2024-01-25 19:00] LABS: Alanine Aminotransferase 7 IU/L (<35); Albumin Globulin Ratio 1.3 (1.0-2.8); Alkaline Phosphatase 62 U/L (38-126); Aspartate Aminotransferase 23 IU/L (14-36); BUN Creatinine Ratio 13.9 (6-22); Bilirubin Total 0.7 mg/dL (0.2-1.3); Blood Urea Nitrogen 15 mg/dL (7-17); Calcium 9.2 mg/dL (8.4-10.2); Carbon Dioxide 29 mmol/L (22-32); Chloride 102 mmol/L (98-107); Estimated Glomerular Filt Rate 50 mL/min (>60); Glucose 103 mg/dL (80-110); HEMOLYSIS 28 (0-50); Potassium 3.6 mmol/L (3.4-5.1); Sodium 138 mmol/L (137-145)
[2024-01-25 19:01] LABS: Lactate (Lactic Acid) 1.4 mmol/L (0.7-2.1)
[2024-01-25 19:11] LABS: NT-proBNP (BNP-Adult 18+) 786 pg/mL (<450); Troponin I 0.014 ng/mL (0.01-0.034)
--- NOTE | 2024-01-25 19:25 | PC.NURSE ---
Pt states she dropped a metal water bottle with ice and water in it on her right foot about a week ago.
--- NOTE | 2024-01-25 19:46 | ED.SOB ---
HPI - SOB/Dyspnea General Chief Complaint: Shortness of Breath/Dyspnea Stated Complaint: bad cough, wheezing, chest tightness Time Seen by Provider: 01/25/24 19:45 Source: patient, RN notes reviewed and old records reviewed Mode of arrival: Ambulatory Limitations: no limitations History of Present Illness HPI Narrative: 88-year-old female history of coronary artery disease with 6 stents, CHF, syncopal episodes, COPD on home O2, diabetes. Patient has complaint of shortness of breath, cough, weakness, body aches headache nausea vomiting decreased appetite for awhile but has been progressively getting worse and notes some rattling in her chest. Patient states has been going on for several weeks. She has been to the walk-in clinic was told she might have pneumonia and started on doxycycline which she finished today. She describes chills but no fevers, productive cough she states been green and yellow although has kind of a clear foamy coloration here. Been going on for several weeks. She is felt tired, fatigued notes that she has had increased shortness of breath with activity but also lying flat. She denies any chest pain or pressure. Notes increased swelling of her hands and feet. Patient is on, Ranexa, metoprolol, Lasix 10 mg, Jardiance for CHF, Crestor, Lexapro has a nebulizer has been using it recently but states it has not helpful. Does have an inhaler as needed. Patient has not had any changes in her daily medications recently. She is on 2-3 L nasal cannula at home has bumped up to 4 in the last several days. History of cholecystectomy total hysterectomy, bilateral mastectomy for fibrocystic breast disease, [address] No tobacco, alcohol 3 times yearly, no recreational drugs. Her primary care provider is Dr. 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 Related Data Home Medications Medication Instructions Recorded Confirmed aspirin 81 mg tablet,delayed 81 mg PO DAILY ##0 05/14/17 01/26/24 release nitroglycerin 0.4 mg sublingual 1 tab sublingual [id number] PRN Chest 11/18/18 01/26/24 tablet Pain rosuvastatin 40 mg tablet 40 mg PO QPM 11/18/18 01/26/24 escitalopram oxalate 20 mg tablet 20 mg PO DAILY 03/06/21 01/26/24 pantoprazole 40 mg tablet,delayed 40 mg PO DAILY 03/06/21 01/26/24 release furosemide 20 mg tablet 10 mg PO DAILY 01/11/23 01/26/24 empagliflozin 10 mg tablet 10 mg PO DAILY 01/14/23 01/26/24 (Jardiance) Previous Rx's Medication Instructions Recorded metoprolol tartrate 50 mg tablet 50 mg PO TID #60 tabs 03/11/21 Allergies Allergy/AdvReac Type Severity Reaction Status Date / Time ibuprofen [IBUPROFEN] Allergy Severe Rash Verified 02/09/23 18:38 Iodinated Contrast Media Allergy Severe Unconscious Verified 02/09/23 18:38 [IODINATED CONTRAST- ORAL AND IV DYE] morphine [MORPHINE] Allergy Severe Rash Verified 02/09/23 18:38 naproxen [From ALEVE] Allergy Severe Rash Verified 02/09/23 18:38 telmisartan [TELMISARTAN] Allergy Severe Rash Verified 02/09/23 18:38 Review of Systems Review of Systems ROS Unobtainable: All systems reviewed & are unremarkable except as noted in HPI and below Patient History Medical History (Updated 01/25/24 @ 20:43 by Cherry Riggins DO) Skin cancer NSTEMI (non-ST elevated myocardial infarction) Diastolic heart failure Cardiac arrest Chest pain Hypertension Hyperlipidemia Coronary artery disease Left hamstring muscle strain UTI (urinary tract infection) Surgical History H/O right heart catheterization History of breast implant removal History of breast surgery History of appendectomy History of cholecystectomy History of total abdominal hysterectomy History of coronary artery stent placement Family History Father Hypertension Diabetes mellitus Mother Hypertension [place] (myocardial infarction) Sister SD (myocardial infarction) S/P CABG x 4 Social History household members: children Smoking Status: Never smoker Smoking Status: Never smoker alcohol intake frequency: holidays/special occasions only Substance Use Type: does not use Exam Narrative Exam Narrative: GENERAL: Alert and oriented x three, obese female in mild distress. HEENT: Head normocephalic, atraumatic, EOMI, pupils reactive, face symmetric, moist mucous membranes NECK: Supple, full range of motion CARDIOVASCULAR: Regular rate and rhythm without murmurs, rubs or gallops. Patient has bilateral lower extremity edema 2+. Patient also has some edema bilateral hands. RESPIRATORY: Breath sounds equal bilaterally, no tachypnea, no wheeze, patient has crackles bilaterally to the mid bases, does have a cough that is significantly worsened with any sort of activity or movement. ABDOMEN: Soft, nontender. Normoactive bowel sounds all 4 quadrants. No guarding or rebound, rigidity, no mass : No CVA tenderness EXTREMITIES: Normal range of motion. Neurovascularly intact. NEUROLOGICAL: Cranial nerves II through XII grossly intact. Moving all extremities SKIN: Warm, dry, no petechiae, no rashes or lesions. Initial Vital Signs Initial Vital Signs: Vital Signs Temperature 97.5 F L 01/25/24 16:44 Pulse Rate 63 01/25/24 16:44 Respiratory Rate 19 01/25/24 16:44 Blood Pressure 172/72 H 01/25/24 16:44 Pulse Oximetry 98 01/25/24 16:44 Oxygen Delivery Method Nasal Cannula 01/25/24 16:44 Oxygen Flow Rate 4 01/25/24 16:44 Course Orders Ordered: ED Orders 01/25/24 20:55 Trop I [Troponin I] Stat 01/25/24 23:11 Education, smoking cessation ONGOING Acetaminophen (Acetaminophen 325 Mg Tablet) 650 mg PO Q6H PRN PRN Reason: Fever/Mild Pain (1-3) Last Admin: 01/26/24 01:09 Dose: 650 mg Documented By: Albuterol/Ipratropium (Albuterol/Ipratropium 3 Ml Ampul) 3 ml INH RTQ4HR PRN PRN Reason: Shortness Of Breath Aspirin (Aspirin Ec 81 Mg Tablet) 81 mg PO DAILY AFIA Atorvastatin Calcium (Atorvastatin 20 Mg Tablet) 80 mg PO BEDTIME AFIA Enoxaparin Sodium (Enoxaparin 40 Mg/0.4 Ml Syringe) 40 mg SUBCUT DAILY AFIA Escitalopram Oxalate (Escitalopram 10 Mg Tablet) 20 mg PO DAILY AFIA Furosemide (Furosemide 40 Mg/4 Ml Vial) 40 mg IV Q8H AFIA Furosemide (Furosemide 20 Mg Tablet) 10 mg PO DAILY AFIA Azithromycin 500 mg/ Dextrose 250 mls @ 250 mls/hr IV Q24H AFIA Methylprednisolone (Methylprednisolone 40 Mg/Ml Vial) 40 mg IV Q8HR AFIA Naloxone HCl (Naloxone 0.4 Mg/Ml Vial) 0.2 mg IV Q2MIN PRN PRN Reason: Opiate Reversal Nitroglycerin (Nitroglycerin 0.4 Mg Sl Tab) 0.4 mg SL [id number] PRN PRN Reason: Chest Pain Ondansetron HCl (Ondansetron 4 Mg/2 Ml Inj) 4 mg IV Q8HR PRN PRN Reason: Nausea And Vomiting Pantoprazole Sodium (Pantoprazole Dr 40 Mg Tablet) 40 mg PO DAILY AFIA Discontinued Medications Azithromycin (Azithromycin 250 Mg Tablet) 500 mg PO NOW ONE Stop: 01/25/24 23:12 Last Admin: 01/25/24 23:17 Dose: 500 mg Documented By: Furosemide (Furosemide 40 Mg/4 Ml Vial) 40 mg IV NOW ONE Stop: 01/25/24 20:23 Last Admin: 01/25/24 20:35 Dose: 40 mg Documented By: LEYLA Methylprednisolone (Methylprednisolone 125 Mg/2 Ml Vial) 125 mg IV NOW ONE Stop: 01/25/24 23:12 Last Admin: 01/25/24 23:17 Dose: 125 mg Documented By: Vital Signs Vital signs: Vital Signs - 8 hr 01/25/24 19:15 01/25/24 19:15 01/25/24 19:30 Pulse Rate 72 Respiratory Rate Blood Pressure 197/79 H 179/77 H Pulse Oximetry 98 Oxygen Delivery Method Oxygen Flow Rate 01/25/24 19:30 01/25/24 20:00 01/25/24 20:00 Pulse Rate 71 72 Respiratory Rate 24 29 H Blood Pressure 185/79 H Pulse Oximetry 98 99 Oxygen Delivery Method Nasal Cannula Oxygen Flow Rate 01/25/24 20:30 01/25/24 20:30 01/25/24 21:00 Pulse Rate 75 79 Respiratory Rate 26 H Blood Pressure 176/74 H Pulse Oximetry 97 97 Oxygen Delivery Method Nasal Cannula Oxygen Flow Rate 01/25/24 21:01 01/25/24 21:01 01/25/24 21:30 Pulse Rate 76 80 Respiratory Rate 22 Blood Pressure 131/60 Pulse Oximetry 98 98 Oxygen Delivery Method Nasal Cannula Oxygen Flow Rate 01/25/24 21:31 01/25/24 21:31 01/25/24 22:00 Pulse Rate 80 Respiratory Rate 30 H Blood Pressure 123/53 L 137/58 L Pulse Oximetry 97 Oxygen Delivery Method Oxygen Flow Rate 01/25/24 22:00 01/25/24 22:34 01/25/24 22:35 Pulse Rate 72 88 Respiratory Rate 16 26 H Blood Pressure 152/68 H Pulse Oximetry 97 92 Oxygen Delivery Method Oxygen Flow Rate 01/25/24 22:35 01/25/24 23:00 01/25/24 23:00 Pulse Rate 83 73 Respiratory Rate 0 L 16 Blood Pressure 151/67 H Pulse Oximetry 96 97 Oxygen Delivery Method Nasal Cannula Oxygen Flow Rate 4 01/25/24 23:10 Pulse Rate Respiratory Rate Blood Pressure Pulse Oximetry 98 Oxygen Delivery Method Nasal Cannula Oxygen Flow Rate 4 MDM - SOB/Dyspnea Lab Data 01/25/24 18:07 01/25/24 18:07 Labs: Lab Results 01/25/24 01/25/24 01/25/24 Range/Units 17:05 18:07 20:55 WBC 7.8 (4.5-11.0) X10^3/uL RBC 4.97 (4.0-5.2) X10^6/uL Hgb 11.9 L (12.0-16.0) g/dL Hct 37.1 (36-46) % MCV 74.7 L (80-100) fL MCH 23.9 L (26-34) PG MCHC 32.0 (30-36) % RDW 21.4 H (11.6-14.8) % Plt Count 228 (150-400) X10^3/uL Neut % (Auto) 55.8 (50-75) % Lymph % (Auto) 29.8 (25-40) % [place] % (Auto) 10.4 (3-14) % Eos % (Auto) 2.9 (2-4) % Baso % (Auto) 1.1 (0-2) % Neut # (Auto) 4400 (6999-7025) /uL Lymph # (Auto) 2300 (0646-3935) /uL [place] # (Auto) 800 (0-900) /uL Eos # (Auto) 200 (0-450) /uL Baso # (Auto) 100 (0-100) /uL RBC Morphology See below Anisocytosis 1+ H Microcytosis 1+ H PT 13.1 H (9.4-12.5) SECONDS INR 1.1 (0.9-1.3) Sodium 138 (137-145) mmol/L Potassium 3.6 (3.4-5.1) mmol/L Chloride 102 (98-107) mmol/L Carbon Dioxide 29 (22-32) mmol/L BUN 15 (7-17) mg/dL Creatinine 1.08 H (0.52-1.04) mg/dL Estimated GFR 50 L (>60) mL/min BUN/Creatinine Ratio 13.9 (6-22) Glucose 103 (80-110) mg/dL Lactate 1.4 (0.7-2.1) mmol/L Calcium 9.2 (8.4-10.2) mg/dL Total Bilirubin 0.7 (0.2-1.3) mg/dL AST 23 (14-36) IU/L ALT 7 (<35) IU/L Alkaline Phosphatase 62 (38-126) U/L Troponin I 0.014 0.015 (0.01-0.034) ng/mL NT-Pro-B Natriuret Pep 786 H (<450) pg/mL Total Protein 7.0 (6.3-8.2) g/dL Albumin 4.0 (3.5-5.0) g/dL Globulin 3.0 (1.7-4.1) g/dL Albumin/Globulin Ratio 1.3 (1.0-2.8) Chlamy pneumoniae PCR Not detected (Not Detect) Adenovirus (PCR) Not detected (Not Detect) B.parapertussis DNA PCR Not detected (Not Detecte) Coronavirus OC43 (PCR) Not detected (Not Detect) Coronavirus HKU1 (PCR) Not detected (Not Detect) Coronavirus 229E (PCR) Not detected (Not Detect) SARS-CoV-2 (PCR) Not detected (Not Detecte) Coronavirus NL63 (PCR) Not detected (Not Detect) Human Metapneumovir PCR Not detected (Not Detect) Influenza Type A (PCR) Not detected (Not Detect) Influenza Type B (PCR) Not detected (Not Detect) M. pneumoniae (PCR) Not detected (Not Detect) Parainfluenza 1 (PCR) Not detected (Not Detect) Parainfluenza 2 (PCR) Not detected (Not Detect) Parainfluenza 3 (PCR) Not detected (Not Detect) Parainfluenza 4 (PCR) Not detected (Not Detect) RSV (PCR) Not detected (Not Detect) Entero/Rhino (PCR) Not detected (Not Detect) Imaging Data Chest x-ray: Radiologist's Impression: [address] [address] XRay Report Signed Patient: Lida Townsend MR#: [id number] : 1935 Acct:[id number] Age/Sex: 88 / F Date of Service: 01/25/24 Loc: ED Accession Number: [id number] Procedure: XR chest 1V Ordering Provider: Zarina Gu D.O. PROCEDURE: XR CHEST 1V INDICATIONS: Shortness of breath TECHNIQUE: One view of the chest was acquired. COMPARISON: [facility], CR, XR CHEST 1V, 09/23/2023, 12:45. [facility], CR, XR CHEST 1V, 05/16/2023, 5:47. FINDINGS: Surgical changes and devices: None. Lungs and pleura: Moderately prominent interstitium. No drainable effusions. Possible trace effusions versus thickening. Low lung volumes. Mediastinum: Cardiomegaly unchanged Bones and chest wall: Degenerative findings IMPRESSION: Prominence of the interstitium could represent edema in the setting of cardiomegaly. Possible trace effusions. Differential includes atypical infection. Consider future imaging surveillance to assess for resolution. Low lung volumes. Dictated by: Jeramy Wilcox M.D. on 01/25/2024 at 17:21 Approved by: Jeramy Wilcox M.D. on 01/25/2024 at 17:22 ECG Data Attestation: I personally reviewed and interpreted this ECG as follows: Prior ECG tracings: available for review Interpretation: Rate of 69 SD 210 QRS of 98 QTC of 492. Computer interpretation notes suspected lead reversal although tech states that they tablet checked it several times. Sinus rhythm first-degree AV block incomplete right bundle. Patient has prior from 09/23/2023 which appears similar. MDM Narrative Medical decision making narrative: 88-year-old female with known coronary artery disease, CHF, COPD on home O2 patient has been treated recently for pneumonia with doxycycline although she states she had a negative chest x-ray and negative COVID swab last week. She has had increasing tiredness fatigue, cough, also notes increased swelling of her extremities. Labs show white count of 7.8 hemoglobin 11.9 platelets of 228. INR is 1.1 sodium is 138 potassium 3.6 chloride 102 CO2 of 29 BUN 15 creatinine 1.08 appears consistent with prior from September of 2023 glucose is 103 lactate 1.4 these are negative troponins 0.014, BNP 786. Repeat troponin is less than 0.012 Respiratory panel is negative Chest x-ray shows prominence of interstitium could represent edema in the setting cardiomegaly possible trace effusions differential includes atypical infection. Low lung volumes. EKG shows sinus rhythm first-degree AV block incomplete right bundle has prior from 09/23/2023 with no acute changes. Patient's BNP is slightly elevated but patient's exam is most consistent with CHF. She has bilateral lower extremity edema some in her hands crackles on exam bilaterally with describes some chills but also orthopnea and does have a history of CHF as well. Does not appear to be having a COPD exacerbation her lungs do have any wheezes she does not sound tight. She has had increased O2 requirements up to 4 L at home. No significant tachypnea. Patient was given Lasix 40 mg. Patient has had about 300 mL patient has had minimal improvement. Attempted ambulatory pulse ox patient maintain O2 but had significant work of breathing tachypnea and required some assistance with ambulation. Spoke with tele hospitalist Dr. Adan , discussed patient's vitals overall are appropriate but her work of breathing increases significantly with ambulation. Has slightly elevated BNP but clinically seems to be more CHF. He asked if we can add Solu-Medrol 120 and azithromycin 500 mg. Accepts for inpatient Med tele. Discharge Plan Departure Patient Disposition: Admitted As Inpatient Clinical Impression: Acute exacerbation of CHF (congestive heart failure) Admit Date/Time: 01/25/24 23:11 Admit Provider: Guido Adan
[2024-01-25 20:03] LABS: Anisocytosis 1+; Microcytosis 1+
[2024-01-25] MEDS: FUROSEMIDE 40 MG/4 ML VIAL IV (20:35)
[2024-01-25 21:48] LABS: Troponin I 0.015 ng/mL (0.01-0.034)
[2024-01-25] MEDS: AZITHROMYCIN 250 MG TABLET 500 MG PO (23:17)
[2024-01-25] MEDS: methylPREDNISolone 125 MG/2 ML VIAL IV (23:17)
--- NOTE | 2024-01-26 00:47 | P.HP_ITS ---
History of Present Illness History of Present Illness Chief complaint: bad cough, wheezing, chest tightness Narrative: 88 year old female with past medical history of CAD s/p stents, CHF, COPD/interstitial lung disease on 2L of O2 at baseline, HTN, HLD and depression presents with coughing, wheezing, and generalized body aches. Per the patient's report, the patient started to have these symptoms over the last few weeks. The patient however started to noticed increasing LE edema over the last few days with shortness of breath. The patient however denies any chills, fever, nausea, vomiting or diarrhea. The patient was seen last week and was given Doxyclcin for possible pneumonia as outpatient. Despite completing this antibiotics yesterday, the patient continue to have and productive cough. In our ER, the patient was hemodynamically stable but did require 4L of O2 per NC. Patient labs were relatively benign except for BNP in the 700s (baseline 400s). The patient also has CXR that shows possible edema vs atypical pneumonia. The patient was given IV Lasix 40mg x 1 as well as Azithromycin. IV solu-medrol and Nebs were also given. [facility] Medical History (Updated 01/25/24 @ 20:43 by Cherry Riggins DO) Skin cancer NSTEMI (non-ST elevated myocardial infarction) Diastolic heart failure Cardiac arrest Chest pain Hypertension Hyperlipidemia Coronary artery disease Left hamstring muscle strain UTI (urinary tract infection) Surgical History H/O right heart catheterization History of breast implant removal History of breast surgery History of appendectomy History of cholecystectomy History of total abdominal hysterectomy History of coronary artery stent placement Family History Father Hypertension Diabetes mellitus Mother Hypertension [place] (myocardial infarction) Sister [place] (myocardial infarction) S/P CABG x 4 Social History household members: children Smoking Status: Never smoker Meds Home Medications and Allergies Home Medications Medication Instructions Recorded Confirmed Type aspirin 81 mg tablet,delayed 81 mg PO DAILY ##0 05/14/17 01/26/24 History release nitroglycerin 0.4 mg sublingual 1 tab sublingual [id number] PRN Chest 11/18/18 01/26/24 History tablet Pain rosuvastatin 40 mg tablet 40 mg PO QPM 11/18/18 01/26/24 History ranolazine 500 mg tablet,extended 500 mg PO BID 02/09/20 01/11/23 History release,12 hr escitalopram oxalate 20 mg tablet 20 mg PO DAILY 03/06/21 01/26/24 History pantoprazole 40 mg tablet,delayed 40 mg PO DAILY 03/06/21 01/26/24 History release metoprolol tartrate 50 mg tablet 50 mg PO TID #60 tabs 03/11/21 01/11/23 Rx furosemide 20 mg tablet 10 mg PO DAILY 01/11/23 01/26/24 History empagliflozin 10 mg tablet 10 mg PO DAILY 01/14/23 01/26/24 History (Jardiance) Allergies Allergy/AdvReac Type Severity Reaction Status Date / Time ibuprofen [IBUPROFEN] Allergy Severe Rash Verified 02/09/23 18:38 Iodinated Contrast Media Allergy Severe Unconscious Verified 02/09/23 18:38 [IODINATED CONTRAST- ORAL AND IV DYE] morphine [MORPHINE] Allergy Severe Rash Verified 02/09/23 18:38 naproxen [From ALEVE] Allergy Severe Rash Verified 02/09/23 18:38 telmisartan [TELMISARTAN] Allergy Severe Rash Verified 02/09/23 18:38 Review of Systems Review of Systems Narrative: 12 points of ROS are negative except for what was mentioned per HPI. Exam Vital Signs (past 8 hours): - 01/25/24 19:00 01/25/24 19:07 01/25/24 19:15 Pulse Rate 70 Respiratory Rate Blood Pressure 197/79 H Pulse Oximetry 98 99 Oxygen Delivery Method Room Air Oxygen Flow Rate 4 01/25/24 19:15 01/25/24 19:30 01/25/24 19:30 Pulse Rate 72 71 Respiratory Rate 24 Blood Pressure 179/77 H Pulse Oximetry 98 98 Oxygen Delivery Method Nasal Cannula Oxygen Flow Rate 4 01/25/24 20:00 01/25/24 20:00 01/25/24 20:30 Pulse Rate 72 Respiratory Rate 29 H Blood Pressure 185/79 H 176/74 H Pulse Oximetry 99 Oxygen Delivery Method Oxygen Flow Rate 01/25/24 20:30 01/25/24 21:00 01/25/24 21:01 Pulse Rate 75 79 Respiratory Rate 26 H Blood Pressure 131/60 Pulse Oximetry 97 97 Oxygen Delivery Method Nasal Cannula Oxygen Flow Rate 4 01/25/24 21:01 01/25/24 21:30 01/25/24 21:31 Pulse Rate 76 80 Respiratory Rate 22 Blood Pressure 123/53 L Pulse Oximetry 98 98 Oxygen Delivery Method Nasal Cannula Oxygen Flow Rate 4 01/25/24 21:31 01/25/24 22:00 01/25/24 22:00 Pulse Rate 80 72 Respiratory Rate 30 H 16 Blood Pressure 137/58 L Pulse Oximetry 97 97 Oxygen Delivery Method Oxygen Flow Rate 01/25/24 22:34 01/25/24 22:35 01/25/24 22:35 Pulse Rate 88 83 Respiratory Rate 26 H 0 L Blood Pressure 152/68 H Pulse Oximetry 92 96 Oxygen Delivery Method Nasal Cannula Oxygen Flow Rate 4 01/25/24 23:00 01/25/24 23:00 01/25/24 23:30 Pulse Rate 73 Respiratory Rate 16 Blood Pressure 151/67 H 155/67 H Pulse Oximetry 97 Oxygen Delivery Method Oxygen Flow Rate 01/25/24 23:30 Pulse Rate 68 Respiratory Rate 18 Blood Pressure Pulse Oximetry 97 Oxygen Delivery Method Oxygen Flow Rate Oxygen Delivery Method Nasal Cannula Oxygen Flow Rate 4 Narrative Exam Narrative: GENERAL: The patient is not in any acute distressed. Awake and alert. HEENT: Nonicteric sclerae, PERRLA, EOMI. Oropharynx clear. Moist mucous membranes. Conjunctivae appear well perfused. HEART: Regular rate and rhythm without murmurs. 1+ lower extremities edema. LUNGS: Bilateral rhonchi with some basilar crackles but otherwise Clear to auscultation bilaterally. No wheezing ABDOMEN: Soft, positive bowel sounds, nontender. SKIN: No rash, no excessive bruising, petechiae, or purpura. NEUROLOGIC: AxO x 3. Cranial nerves II-XII intact without motor/sensory deficit. Objective Labs 01/25/24 18:07 01/25/24 18:07 Labs: Laboratory Results - last 24 hr 01/25/24 01/25/24 01/25/24 17:05 18:07 20:55 WBC 7.8 RBC 4.97 Hgb 11.9 L Hct 37.1 MCV 74.7 L MCH 23.9 L MCHC 32.0 RDW 21.4 H Plt Count 228 Neut % (Auto) 55.8 Lymph % (Auto) 29.8 [place] % (Auto) 10.4 Eos % (Auto) 2.9 Baso % (Auto) 1.1 Neut # (Auto) 4400 Lymph # (Auto) 2300 [place] # (Auto) 800 Eos # (Auto) 200 Baso # (Auto) 100 RBC Morphology See below Anisocytosis 1+ H Microcytosis 1+ H PT 13.1 H INR 1.1 Sodium 138 Potassium 3.6 Chloride 102 Carbon Dioxide 29 BUN 15 Creatinine 1.08 H Estimated GFR 50 L BUN/Creatinine Ratio 13.9 Glucose 103 Lactate 1.4 Calcium 9.2 Total Bilirubin 0.7 AST 23 ALT 7 Alkaline Phosphatase 62 Troponin I 0.014 0.015 NT-Pro-B Natriuret Pep 786 H Total Protein 7.0 Albumin 4.0 Globulin 3.0 Albumin/Globulin Ratio 1.3 Chlamy pneumoniae PCR Not detected Adenovirus (PCR) Not detected B.parapertussis DNA PCR Not detected Coronavirus OC43 (PCR) Not detected Coronavirus HKU1 (PCR) Not detected Coronavirus 229E (PCR) Not detected SARS-CoV-2 (PCR) Not detected Coronavirus NL63 (PCR) Not detected Human Metapneumovir PCR Not detected Influenza Type A (PCR) Not detected Influenza Type B (PCR) Not detected M. pneumoniae (PCR) Not detected Parainfluenza 1 (PCR) Not detected Parainfluenza 2 (PCR) Not detected Parainfluenza 3 (PCR) Not detected Parainfluenza 4 (PCR) Not detected RSV (PCR) Not detected Entero/Rhino (PCR) Not detected Assessment & Plan Assessment & Plan narrative: Acute on chronic HF (unclear type). Admit to medical telemetry inpatient. s/p IV lasix 40mg x 1 in ER. Continue IV lasix 40mg q8hr x 2 additional doses and reassess. Strict I/Os and daily weight. Possible atypical pneumonia. Continue Azithromycin and monitor for sepsis. COPD/Interstitial lung disease exacerbation. Continue Solumedrol and nebs. Acute on chronic respiratory failure with hypoxemia. Continue to treat above and wean down O2 as able. Note patient baseline O2 is 2L and now 3-4L. HTN. Monitor BP and treat accordingly. NIDDM. Hold home medications. Glucose now 100s. Monitor for now and treat with SQ insulin if needed. HLD. Resume home Statin. CAD s/p stents. Denies any chest pain trop and EKG normal. DVT PPx Lovenox Code status full code Disposition home in 2-3 days Time-Based Coding :: [TOTAL MINUTES] spent with patient and on the chart (including review of chart, obtaining history, exam, reviewing outside data, placing orders, documenting exam and treatment plan, and counseling patient) on [DATE].
[2024-01-26] MEDS: ACETAMINOPHEN 325 MG TABLET 650 MG PO ×3 (01:09→14:58)
--- NOTE | 2024-01-26 02:03 | PC.ADMIT ---
Addendum entered by Meena Lezama R.N. 01/26/24 02:16: Patient unable to confirm correct dose of metoprolol. Original Note: [email or web address] [facility] Admission Note: Admitted to AC unit at 23:55 from ED. Alert and oriented x 4, pleasant. Presents at 98% on 4L nasal cannula. Daughter present at bedside. Oriented to room and call light, call light within reach. The patient,Lida Townsend,88 y/o, was given written information regarding hospital policies, unit procedures and contact persons. Patient's smoking status: Never smoker. Vital Signs - 8 hr 01/25/24 19:00 01/25/24 19:07 01/25/24 19:15 Temperature Pulse Rate 70 Respiratory Rate Blood Pressure 197/79 H Pulse Oximetry 98 99 Oxygen Delivery Method Room Air Oxygen Flow Rate 4 01/25/24 19:15 01/25/24 19:30 01/25/24 19:30 Temperature Pulse Rate 72 71 Respiratory Rate 24 Blood Pressure 179/77 H Pulse Oximetry 98 98 Oxygen Delivery Method Nasal Cannula Oxygen Flow Rate 4 01/25/24 20:00 01/25/24 20:00 01/25/24 20:30 Temperature Pulse Rate 72 Respiratory Rate 29 H Blood Pressure 185/79 H 176/74 H Pulse Oximetry 99 Oxygen Delivery Method Oxygen Flow Rate 01/25/24 20:30 01/25/24 21:00 01/25/24 21:01 Temperature Pulse Rate 75 79 Respiratory Rate 26 H Blood Pressure 131/60 Pulse Oximetry 97 97 Oxygen Delivery Method Nasal Cannula Oxygen Flow Rate 4 01/25/24 21:01 01/25/24 21:30 01/25/24 21:31 Temperature Pulse Rate 76 80 Respiratory Rate 22 Blood Pressure 123/53 L Pulse Oximetry 98 98 Oxygen Delivery Method Nasal Cannula Oxygen Flow Rate 4 01/25/24 21:31 01/25/24 22:00 01/25/24 22:00 Temperature Pulse Rate 80 72 Respiratory Rate 30 H 16 Blood Pressure 137/58 L Pulse Oximetry 97 97 Oxygen Delivery Method Oxygen Flow Rate 01/25/24 22:34 01/25/24 22:35 01/25/24 22:35 Temperature Pulse Rate 88 83 Respiratory Rate 26 H 0 L Blood Pressure 152/68 H Pulse Oximetry 92 96 Oxygen Delivery Method Nasal Cannula Oxygen Flow Rate 4 01/25/24 23:00 01/25/24 23:00 01/25/24 23:10 Temperature Pulse Rate 73 Respiratory Rate 16 Blood Pressure 151/67 H Pulse Oximetry 97 98 Oxygen Delivery Method Nasal Cannula Oxygen Flow Rate 4 01/25/24 23:22 01/25/24 23:30 01/25/24 23:30 Temperature Pulse Rate 68 Respiratory Rate 18 Blood Pressure 155/67 H Pulse Oximetry 97 Oxygen Delivery Method Nasal Cannula Oxygen Flow Rate 01/25/24 23:50 Temperature 96.4 F L Pulse Rate 66 Respiratory Rate 20 Blood Pressure 138/45 L Pulse Oximetry 98 Oxygen Delivery Method Oxygen Flow Rate 4
[2024-01-26 04:30] VITALS: BP 133/62; PULSE 82; RESP 20; TEMP 35.8; O2SAT 97
[2024-01-26 05:43] LABS: Add Manual Diff / Slide Review NO; Basophils Absolute Auto 0 /uL (0-100); Basophils Percent Auto 0.1 % (0-2); Eosinophils Absolute Auto 0 /uL (0-450); Eosinophils Percent Auto 0.2 % (2-4); Hematocrit 35.7 % (36-46); Hemoglobin 11.6 g/dL (12.0-16.0); Lymphocytes Absolute Auto 1000 /uL (1100-4500); Lymphocytes Percent Auto 14.2 % (25-40); Mean Corpuscular HGB Conc 32.5 % (30-36); Mean Corpuscular Hemoglobin 24.2 PG (26-34); Mean Corpuscular Volume 74.6 fL (80-100); Monocytes Absolute Auto 100 /uL (0-900); Monocytes Percent Auto 1.3 % (3-14); Neutrophils Absolute Auto 6200 /uL (1500-7000); Neutrophils Percent Auto 84.2 % (50-75); Platelet Count 220 X10^3/uL (150-400); Red Blood Cell Count 4.79 X10^6/uL (4.0-5.2); Red Cell Distribution Width 20.8 % (11.6-14.8); White Blood Cell Count 7.4 X10^3/uL (4.5-11.0)
[2024-01-26 05:55] LABS: BUN Creatinine Ratio 12.2 (6-22); Blood Urea Nitrogen 15 mg/dL (7-17); Calcium 9.2 mg/dL (8.4-10.2); Carbon Dioxide 30 mmol/L (22-32); Chloride 100 mmol/L (98-107); Estimated Glomerular Filt Rate 43 mL/min (>60); Glucose 168 mg/dL (80-110); HEMOLYSIS < 15 (0-50); Potassium 3.7 mmol/L (3.4-5.1); Sodium 137 mmol/L (137-145)
[2024-01-26] MEDS: FUROSEMIDE 40 MG/4 ML VIAL IV ×3 (06:39→21:10)
[2024-01-26 06:44] LABS: Anisocytosis 2+; Microcytosis 1+
--- NOTE | 2024-01-26 07:44 | P.PN_ITS ---
Subjective Subjective Interval history: From night doctor: 88 year old female with past medical history of CAD s/p stents, CHF, COPD/interstitial lung disease on 2L of O2 at baseline, HTN, HLD and depression presents with coughing, wheezing, and generalized body aches. Per the patient's report, the patient started to have these symptoms over the last few weeks. The patient however started to noticed increasing LE edema over the last few days with shortness of breath. The patient however denies any chills, fever, nausea, vomiting or diarrhea. The patient was seen last week and was given Doxyclcin for possible pneumonia as outpatient. Despite completing this antibiotics yesterday, the patient continue to have and productive cough. In our ER, the patient was hemodynamically stable but did require 4L of O2 per NC. Patient labs were relatively benign except for BNP in the 700s (baseline 400s). The patient also has CXR that shows possible edema vs atypical pneumonia. The patient was given IV Lasix 40mg x 1 as well as Azithromycin. IV solu-medrol and Nebs were also given. S: She was on doxycycline for a week. She has a history of interstitial lung disease. She used to see a catering administrative assistant in [place] but has not for some time. She was a nonproductive cough and feels like it is hard to mobilize from her lower lungs. She denies fevers, or chills. She was chronic gross leg edema. She also has hand edema. Exam Vital Signs (past 8 hours): - 01/25/24 23:50 01/26/24 04:30 Temperature 96.4 F L 96.4 F L Pulse Rate 66 82 Respiratory Rate 20 20 Blood Pressure 138/45 L 133/62 Pulse Oximetry 98 97 Oxygen Flow Rate 4 4 Oxygen Delivery Method Nasal Cannula Oxygen Flow Rate 4 Narrative Exam Narrative: NAD, alert and oriented. Fluent speech. Lungs are clear, normal rate and effort. She was globally diminished breath sounds and crackles at the bases. Minimal wheezing. Heart is regular, no murmur gallop or rub. Abdomen is soft, non distended. Extremities are notable for edema of the hands and legs, 2+. Objective Imaging Chest x-ray: My impression: Prominent interstitial markings throughout. Radiologist's impression: Prominence of the interstitium could represent edema in the setting of cardiomegaly. Possible trace effusions. Differential includes atypical infection. Consider future imaging surveillance to assess for resolution. Labs 01/26/24 04:55 01/26/24 04:55 Labs: Laboratory Results - last 24 hr 01/25/24 01/25/24 01/25/24 17:05 18:07 20:55 WBC 7.8 RBC 4.97 Hgb 11.9 L Hct 37.1 MCV 74.7 L MCH 23.9 L MCHC 32.0 RDW 21.4 H Plt Count 228 Neut % (Auto) 55.8 Lymph % (Auto) 29.8 [place] % (Auto) 10.4 Eos % (Auto) 2.9 Baso % (Auto) 1.1 Neut # (Auto) 4400 Lymph # (Auto) 2300 [place] # (Auto) 800 Eos # (Auto) 200 Baso # (Auto) 100 RBC Morphology See below Anisocytosis 1+ H Microcytosis 1+ H PT 13.1 H INR 1.1 Sodium 138 Potassium 3.6 Chloride 102 Carbon Dioxide 29 BUN 15 Creatinine 1.08 H Estimated GFR 50 L BUN/Creatinine Ratio 13.9 Glucose 103 Lactate 1.4 Calcium 9.2 Total Bilirubin 0.7 AST 23 ALT 7 Alkaline Phosphatase 62 Troponin I 0.014 0.015 NT-Pro-B Natriuret Pep 786 H Total Protein 7.0 Albumin 4.0 Globulin 3.0 Albumin/Globulin Ratio 1.3 Chlamy pneumoniae PCR Not detected Adenovirus (PCR) Not detected B.parapertussis DNA PCR Not detected Coronavirus OC43 (PCR) Not detected Coronavirus HKU1 (PCR) Not detected Coronavirus 229E (PCR) Not detected SARS-CoV-2 (PCR) Not detected Coronavirus NL63 (PCR) Not detected Human Metapneumovir PCR Not detected Influenza Type A (PCR) Not detected Influenza Type B (PCR) Not detected M. pneumoniae (PCR) Not detected Parainfluenza 1 (PCR) Not detected Parainfluenza 2 (PCR) Not detected Parainfluenza 3 (PCR) Not detected Parainfluenza 4 (PCR) Not detected RSV (PCR) Not detected Entero/Rhino (PCR) Not detected 01/26/24 04:55 WBC 7.4 RBC 4.79 Hgb 11.6 L Hct 35.7 L MCV 74.6 L MCH 24.2 L MCHC 32.5 RDW 20.8 H Plt Count 220 Neut % (Auto) 84.2 H D Lymph % (Auto) 14.2 L [place] % (Auto) 1.3 L Eos % (Auto) 0.2 L Baso % (Auto) 0.1 Neut # (Auto) 6200 Lymph # (Auto) 1000 L [place] # (Auto) 100 Eos # (Auto) 0 Baso # (Auto) 0 RBC Morphology See below Anisocytosis 2+ H Microcytosis 1+ H PT INR Sodium 137 Potassium 3.7 Chloride 100 Carbon Dioxide 30 BUN 15 Creatinine 1.23 H Estimated GFR 43 L BUN/Creatinine Ratio 12.2 Glucose 168 H Lactate Calcium 9.2 Total Bilirubin AST ALT Alkaline Phosphatase Troponin I NT-Pro-B Natriuret Pep Total Protein Albumin Globulin Albumin/Globulin Ratio Chlamy pneumoniae PCR Adenovirus (PCR) B.parapertussis DNA PCR Coronavirus OC43 (PCR) Coronavirus HKU1 (PCR) Coronavirus 229E (PCR) SARS-CoV-2 (PCR) Coronavirus NL63 (PCR) Human Metapneumovir PCR Influenza Type A (PCR) Influenza Type B (PCR) M. pneumoniae (PCR) Parainfluenza 1 (PCR) Parainfluenza 2 (PCR) Parainfluenza 3 (PCR) Parainfluenza 4 (PCR) RSV (PCR) Entero/Rhino (PCR) PFS Medical History Skin cancer NSTEMI (non-ST elevated myocardial infarction) Diastolic heart failure Cardiac arrest Chest pain Hypertension Hyperlipidemia Coronary artery disease Left hamstring muscle strain UTI (urinary tract infection) Surgical History H/O right heart catheterization History of breast implant removal History of breast surgery History of appendectomy History of cholecystectomy History of total abdominal hysterectomy History of coronary artery stent placement Family History Father Hypertension Diabetes mellitus Mother Hypertension [place] (myocardial infarction) Sister [place] (myocardial infarction) S/P CABG x 4 Social History household members: children Smoking Status: Never smoker Assessment & Plan Assessment & Plan narrative: 1. Possible atypical pneumonia. Continue Azithromycin and monitor for sepsis. 2. Interstitial lung disease exacerbation. Continue Solumedrol and nebs. 3. Acute on chronic respiratory failure with hypoxemia. Continue to treat above and wean down O2 as able. Note patient baseline O2 is 2L and now 3-4L. 4. HTN. Monitor BP and treat accordingly. 5. NIDDM. Hold home medications. Glucose now 100s. Monitor for now and treat with SQ insulin if needed. 6. HLD. Resume home Statin. 7. CAD s/p stents. Denies any chest pain trop and EKG normal. 8. Probable chronic right-sided heart failure with edema, present on admission and active. PLAN: -continue Abx (3-5 day course) -treat for ILD exacerbation with steroids and Abx. -ECHO to assess LV EF as well as look for evidence of pulmonary hypertension. BJ: 01/27. DVT PPx Lovenox Code status full code Time-Based Coding :: [TOTAL MINUTES] spent with patient and on the chart (including review of chart, obtaining history, exam, reviewing outside data, placing orders, documenting exam and treatment plan, and counseling patient) on [DATE].
[2024-01-26 08:11] VITALS: BP 176/80; PULSE 87; RESP 20; TEMP 36.1; O2SAT 98
--- NOTE | 2024-01-26 08:38 | DI.ECHO.S_ITS ---
[facility] : : [id number] : [place] : : [id number] : : Phone: [phone] Echocardiogram Report + + :Name: BASIA العراقي Study Date: 01/26/2024 Height: 61 in : :Hospital ReadingLocation: Weight: 224 lb : : Gender: Female BSA: 2.0 m2 : :: 1935 Age: 88 yrs BP: 176/80 mmHg: :Reason For Study: DYSPNEA AND EDEMA : :Ordering Physician: DIYA, : :TITUS Balderas Performed By: Bebe Alexandra : :Referring: TITUS KEANE : + + Interpretation Summary The ejection fraction is estimated to be 60-65%. There is mild mitral stenosis. The mitral valve mean gradient is 5.3 mmHg. There is mildly reduced leaflet mobility. The calculated aortic valve area is 1.8 cm2. There is no pericardial effusion. Procedure: A two-dimensional transthoracic echocardiogram with color flow and Doppler was performed. The study quality was technically adequate. Comparison is made with the echocardiogram of 01/12/2023. The heart rate ranged between 87-90 bpm during the study. Left Ventricle: The left ventricle is normal in size. There is mild concentric left ventricular hypertrophy. The ejection fraction is estimated to be 60-65%. Left ventricular wall motion is normal. Diastolic function could not be accurately assessed due to confounding valvular disease. Right Ventricle: The right ventricle is normal in size and function. Atria: The left atrium is mildly dilated. Right atrial size is normal. There is no Doppler evidence for an interatrial shunt. Mitral Valve: There is moderate mitral annular calcification. The mitral valve leaflets are mildly calcified. There is mild mitral stenosis. The mitral valve mean gradient is 5.3 mmHg. There is trace mitral regurgitation. Aortic Valve: The aortic valve is trileaflet. The aortic valve is slightly calcified. There is mildly reduced leaflet mobility. The peak aortic velocity is 1.9 m/sec. The aortic valve mean gradient is 9.2 mmHg. The calculated aortic valve area is 1.8 cm2. There is trace aortic regurgitation. Tricuspid Valve: The tricuspid valve is normal. There is a trace or physiologic amount of tricuspid regurgitation. Pulmonary artery pressures cannot be estimated because of the lack of a measurable TR jet velocity. Pulmonic Valve: The pulmonic valve is not well seen, but is grossly normal. There is mild pulmonic regurgitation. Great Vessels: The aortic root is normal size. The dimensions of the ascending aorta are normal. The IVC is of normal diameter and collapses greater than 50% with a sniff. This suggests a low right atrial pressure of 3 mm Hg. Pericardium/ Pleura There is no pericardial effusion. There is no pleural effusion. MMode/2D Measurements & Calculations LVIDd: 5.2 cm LVOT diam: 2.0 cm LVIDs: 3.4 cm Ao root diam: 3.3 cm FS: 34.4 % asc Aorta Diam: 2.9 cm IVSd: 1.2 cm Ao Arch Diam (Prox Trans): 2.8 cm LVPWd: 1.1 cm LV nelson. diameter/BSA (cm/m^2): 2.6 LV sys. diameter/BSA (cm/m^2): 1.7 LA A2 area: 25.9 cm2 RA long axis: 4.9 cm LA A4 area: 22.0 cm2 RA area: 14.0 cm2 LA length (vol): 6.3 cm RA vol: 34.5 ml LA vol: 77.0 ml RA : 17.4 ml/m2 LA vol index: 38.9 ml/m2 IVC diam: 1.6 cm RVD1 (basal): 2.9 cm TAPSE: 1.8 cm Doppler Measurements & Calculations Ao V2 max: 199.3 cm/sec LVOT Max Wes: 114.4 cm/sec Ao V2 mean: 145.3 cm/sec LV V1 max P.2 mmHg Ao max P.9 mmHg LV V1 VTI: 23.6 cm Ao mean P.2 mmHg YULIA(I,D): 1.8 cm2 Ao V2 VTI: 39.1 cm YULIA(V,D): 1.8 cm2 sev ratio: 0.60 YULIA indexed to BSA (cm^2/m^2): 0.93 Med Peak E' Wes: 5.7 cm/sec PA V2 max: 134.3 cm/sec Lat Peak E' Wes: 5.9 cm/sec PA V2 mean: 96.0 cm/sec MVA(VTI): 1.9 cm2 PA mean P.1 mmHg PA pr(Accel): 37.9 mmHg MV V2 mean: 104.5 cm/sec SV(LVOT): 72.1 ml MV mean P.3 mmHg MV V2 VTI: 38.6 cm Reading Physician:01:09 PM
[2024-01-26] MEDS: ENOXAPARIN 40 MG/0.4 ML SYRINGE SUBCUT ×2 (09:02→21:10)
[2024-01-26] MEDS: ESCITALOPRAM 10 MG TABLET 20 MG PO (09:02)
[2024-01-26] MEDS: FUROSEMIDE 20 MG TABLET 10 MG PO (09:02)
[2024-01-26] MEDS: ASPIRIN EC 81 MG TABLET PO (09:02)
[2024-01-26] MEDS: PANTOPRAZOLE DR 40 MG TABLET PO (09:02)
[2024-01-26] MEDS: cefTRIAXone 1,000 MG in SODIUM CHLORIDE 0.9% 100 ML 200 MG IV (09:03)
[2024-01-26 10:30] VITALS: O2SAT 96
--- NOTE | 2024-01-26 12:29 | CM.DANOTE ---
DCP Assessment Note: Pt is a 88yo female, resident of [place], is admitted for CHF exacerbation. Pt lives in a mobile home with her son, Yuri. Daughter/DPOA, Beronica, is also nearby. Pt's Primary Care Provider is Zoe Bass PA-C and insurance is Medicare and [employer]. Reviewed chart and team rounds for pt's medical status and initial discharge needs. Results pending from echo, scheduled 3-5 day course of ABX. DCP met w/patient at bedside; introduced self and role. Present in the room is pt's daughter, Beronica. Patient was found in bed, alert and oriented, cooperative with assessment. Pt confirmed living situation and good support in family; has all DME (nebulizer, CPAP) necessary. Pt expressed preference in returning home when medically stable. Pt has a hx of Stella SIMMONS. Pt agreeable to HH if necessary, declined any need for SNF Rehab. Plan: Anticipating discharge home with family when medically cleared (possibly Monday, 01/27). CM team will follow closely for coordination of discharge plans. JANE Melendez Discharge Planning/Care Management CM Discharge Assessment Start: 01/26/24 12:22 Freq: Status: Active Protocol: Document 01/26/24 12:23 MW (Rec: 01/26/24 12:29 MW [id number]) Discharge Planning Assessment Assigned Cloth Shrinking Supervisor DONNELL Dodge DPJEANMARIE/Assigned Designee Name Abrahan Plasencia Contact Information [phone] Advance Directives? No: Created but not notarized, discussed witnesses Advance Directives on File No History Provided By Patient,Family Member,Medical Record Expected Length of Stay 2 Has Patient been admitted in last 30 No days? Prior Living Arrangements Mobile home Household Members children Comment Son, Yuri, lives with patient and assists with ADLs. Type of transporation used prior to Relies on Others admit Independent with ADL's No Is patient alert and oriented? Yes Caregiver for Another No Comment Hx of Stella SIMMONS. DME Already Rented / Owned FWW / Walker,Nebulizer Comment CPAP Patient/Family Preference Home with Home Health Barriers to Discharge No Comment Patient lives with family, good support system. Discharge Plan Home Transportation Arrangement Family local and able to transport at d/c. Referrals Initiated None needed Whiteboard Updated in Patient Room with Yes name and ext. # of Cloth Shrinking Supervisor Comment [phone] Please Provide Date Initial DC 01/26/24 Assessment Was Performed Next Review Type Continued Stay Review
[2024-01-26 13:24] VITALS: BP 154/60; PULSE 94; RESP 19; TEMP 36.5; O2SAT 94
[2024-01-26] MEDS: LORazepam 0.5 MG TABLET PO (16:46)
[2024-01-26 18:58] VITALS: BP 159/91; PULSE 96; RESP 19; TEMP 36.1; O2SAT 99
[2024-01-26] MEDS: ATORVASTATIN 20 MG TABLET 80 MG PO (21:10)
[2024-01-26] MEDS: AZITHROMYCIN 500 MG in DEXTROSE 5% IN WATER 250 ML 250 MG IV (23:15)
[2024-01-27] VITALS (7 sets, daily range): BP systolic 167–178; BP diastolic 62–72; PULSE 81–99; RESP 16–20; TEMP 36.1–36.5; O2SAT 93–99
[2024-01-27] MEDS: ACETAMINOPHEN 325 MG TABLET 650 MG PO ×2 (05:38→21:02)
[2024-01-27] MEDS: FUROSEMIDE 40 MG/4 ML VIAL IV ×2 (05:38→12:15)
--- NOTE | 2024-01-27 06:09 | PC.NURSE ---
Patient has been resting in bed most of the shift. Started having generalized pain at the end of the shift, Tylenol effective. Patient did have a incontinent episode through the night d/t sleeping soundly. Patient has been A&O, calm and cooperative.
--- NOTE | 2024-01-27 08:04 | P.PN_ITS ---
Subjective Subjective Interval history: Admitted with ILD exacerbation. ECHO: The ejection fraction is estimated to be 60-65%. There is mild mitral stenosis. The mitral valve mean gradient is 5.3 mmHg. There is mildly reduced leaflet mobility. The calculated aortic valve area is 1.8 cm2. There is no pericardial effusion. S: She still feels poorly. She was dyspneic with any exertion and even talking. She was a dry cough. If she takes a deep breath she was pain in the right thorax and coughs. No fevers or chills. He has been several years since her last CT scan. Exam Vital Signs (past 8 hours): - 01/27/24 00:09 01/27/24 05:26 Temperature 97.6 F 97.7 F Pulse Rate 99 H 89 Respiratory Rate 17 16 Blood Pressure 172/67 H 171/67 H Pulse Oximetry 95 96 Oxygen Flow Rate 2 2 Oxygen Delivery Method Nasal Cannula Oxygen Flow Rate 2 Narrative Exam Narrative: NAD, alert and oriented. Fluent speech. She looks generally uncomfortable. Lungs are with diminished breath sounds and dry crackles in her bases bilaterally. She was normal rate and effort. Heart is regular, no murmur gallop or rub. Abdomen is soft, non distended. Extremities are with gross edema. Objective Imaging Chest x-ray: Radiologist's impression: Prominence of the interstitium could represent edema in the setting of cardiomegaly. Possible trace effusions. Differential includes atypical infection. Consider future imaging surveillance to assess for resolution. Low lung volumes. Echo: Radiologist's impression: The ejection fraction is estimated to be 60-65%. There is mild mitral stenosis. The mitral valve mean gradient is 5.3 mmHg. There is mildly reduced leaflet mobility. The calculated aortic valve area is 1.8 cm2. There is no pericardial effusion. The tricuspid valve is normal. There is a trace or physiologic amount of tricuspid regurgitation. Pulmonary artery pressures cannot be estimated because of the lack of a measurable TR jet velocity. Pulmonic Valve: The pulmonic valve is not well seen, but is grossly normal. There is mild pulmonic regurgitation. Labs 01/26/24 04:55 01/26/24 04:55 [facility] Medical History Skin cancer NSTEMI (non-ST elevated myocardial infarction) Diastolic heart failure Cardiac arrest Chest pain Hypertension Hyperlipidemia Coronary artery disease Left hamstring muscle strain UTI (urinary tract infection) Surgical History H/O right heart catheterization History of breast implant removal History of breast surgery History of appendectomy History of cholecystectomy History of total abdominal hysterectomy History of coronary artery stent placement Family History Father Hypertension Diabetes mellitus Mother Hypertension [place] (myocardial infarction) Sister [place] (myocardial infarction) S/P CABG x 4 Social History household members: children Smoking Status: Never smoker Assessment & Plan Assessment & Plan narrative: 1. Possible atypical pneumonia. Continue Azithromycin and monitor for sepsis. 2. Interstitial lung disease exacerbation. Continue Solumedrol and nebs. 3. Acute on chronic respiratory failure with hypoxemia. Continue to treat above and wean down O2 as able. Note patient baseline O2 is 2L and now 3-4L. 4. HTN. Monitor BP . 5. NIDDM. Hold home medications. Glucose now 100s. Monitor for now and treat with SQ insulin. 6. HLD. Resume home Statin. 7. CAD s/p stents. Denies any chest pain trop and EKG normal. 8. Probable chronic right-sided heart failure with edema, present on admission and active. ECHO fairly normal PLAN: -continue Abx (3-5 day course) -treat for ILD exacerbation with steroids and Abx. -Continue diuresis -CT scan to assess ILD, no contrast (H/O severe reaction). BJ: 01/28. Time-Based Coding :: [TOTAL MINUTES] spent with patient and on the chart (including review of chart, obtaining history, exam, reviewing outside data, placing orders, documenting exam and treatment plan, and counseling patient) on [DATE].
[2024-01-27] MEDS: ESCITALOPRAM 10 MG TABLET 20 MG PO (09:06)
[2024-01-27] MEDS: ASPIRIN EC 81 MG TABLET PO (09:06)
[2024-01-27] MEDS: cefTRIAXone 1,000 MG in SODIUM CHLORIDE 0.9% 100 ML 200 MG IV (09:06)
[2024-01-27] MEDS: ENOXAPARIN 40 MG/0.4 ML SYRINGE SUBCUT ×2 (09:06→20:52)
[2024-01-27] MEDS: PANTOPRAZOLE DR 40 MG TABLET PO (09:06)
[2024-01-27] MEDS: FUROSEMIDE 20 MG TABLET 10 MG PO (09:09)
[2024-01-27] MEDS: LORazepam 0.5 MG TABLET PO (10:12)
--- NOTE | 2024-01-27 11:15 | DI.CT.S_ITS ---
PROCEDURE: CT CHEST WO CON INDICATIONS: Progression of ILD TECHNIQUE: Noncontrast 5 mm thick sections acquired from the pulmonary apices to the posterior costophrenic angles. 1 mm lung window, 5 mm thick coronal and sagittal and 7 mm axial MIP reformats were then acquired. For radiation dose reduction, the following was used: automated exposure control, adjustment of mA and/or kV according to patient size. COMPARISON: [facility], CT, CT CHEST WO CON, 12/13/2022, 13:16. FINDINGS: Image quality: Diagnostic. Lower Neck: No enlarged lymph nodes. Thyroid: No thyroid nodules which require sonographic follow up, per consensus guidelines. Axillae: No enlarged lymph nodes. Chest Wall: Stable in appearance. No suspicious soft tissue lesions. Bones: No acute vertebral body compression fractures. Multilevel spondylitic changes throughout the imaged spine. No suspicious osseous lesions. Stable appearance of chronic compression deformities of mid and lower thoracic vertebral bodies. Lungs and Pleura: No pneumothorax or pleural effusions. No new suspicious or enlarging pulmonary nodules. No septal thickening or nodularity. No acute consolidation seen. Redemonstration of chronic interstitial changes with relatively stable appearance of subpleural reticular scarring. No evidence for honeycombing or significant pulmonary fibrosis. Visualized airways appear clear. Heart: Heart size is enlarged. No pericardial effusion. Multivessel atherosclerotic calcifications of the coronary arteries. Thoracic Vessels: The aorta and pulmonary arteries demonstrate normal size. Mediastinum and Usha: No enlarged lymph nodes. Esophagus: No wall thickening. Small hiatal hernia. Upper Abdomen: Visualized upper abdomen solid organs and bowel loops appear unremarkable. IMPRESSION: CT chest without acute cardiopulmonary abnormalities. Stable appearance of chronic interstitial changes and mild subpleural reticular scarring of the bilateral hemithoraces. No evidence for honeycombing to suggest significant pulmonary fibrosis. Moderate atherosclerotic vascular calcifications. Stable appearance of chronic anterior compression deformities of multiple mid and lower thoracic vertebral bodies. Small hiatal hernia. Mild cardiomegaly, stable. Dictated by: Volodymyr Velasquez M.D. on 01/27/2024 at 11:41 Approved by: Volodymyr Velasquez M.D. on 01/27/2024 at 11:57
[2024-01-27] MEDS: METOPROLOL IR 25 MG TABLET 12.5 MG PO ×2 (11:29→20:51)
--- NOTE | 2024-01-27 11:45 | CM.DPC ---
DCP Continued: Reviewed EMR and team rounds for pt?s medical status. Per hospitalist, pt has CT scan scheduled today to assess lung disease exacerbation. No needs identified at this time. Plan: Anticipating discharge home with family on 01/28 when abx course complete and stable. CM Team will continue to follow for coordination of discharge plans. JANE Melendez
[2024-01-27] MEDS: INSULIN LISPRO 100 UNIT/ML 3ML VIAL SUBCUT ×3 (12:15→20:47)
[2024-01-27] MEDS: ATORVASTATIN 20 MG TABLET 80 MG PO (20:52)
[2024-01-27] MEDS: AZITHROMYCIN 500 MG in DEXTROSE 5% IN WATER 250 ML 250 MG IV (23:27)
[2024-01-28] VITALS: BP 160/71; PULSE 89; RESP 20; TEMP 35.7; O2SAT 91
[2024-01-28] MEDS: FUROSEMIDE 40 MG/4 ML VIAL IV ×3 (00:45→23:44)
[2024-01-28] MEDS: ACETAMINOPHEN 325 MG TABLET 650 MG PO ×2 (02:44→15:00)
[2024-01-28 04:00] VITALS: BP 165/75; PULSE 70; RESP 18; TEMP 36.3; O2SAT 92
--- NOTE | 2024-01-28 07:52 | PM.PN.1 ---
Subjective Subjective Interval history: 88-year-old female, admitted with exacerbation of interstitial lung disease. Repeat CT scan reveals fairly stable lung disease. S: Her breathing feels about the same today. She does feel extremely fatigued. No nausea. She was still has a reactive cough if she takes a deep breath or breathes out too quickly. No fevers. Exam Vital Signs (past 8 hours): - 01/28/24 00:00 01/28/24 04:00 Temperature 96.2 F L 97.4 F L Pulse Rate 89 70 Respiratory Rate 20 18 Blood Pressure 160/71 H 165/75 H Pulse Oximetry 91 92 Oxygen Flow Rate 2 2 Oxygen Delivery Method Nasal Cannula Oxygen Flow Rate 2 Narrative Exam Narrative: NAD, alert and oriented. Fluent speech. Lungs are clear, normal rate and effort. Dry crackles in the posterior bases, minimal expiratory wheezing. Heart is regular, no murmur gallop or rub. Abdomen is soft, non distended. Extremities are free of edema. Objective Imaging CT scan - chest: Radiologist's impression: CT chest without acute cardiopulmonary abnormalities. Stable appearance of chronic interstitial changes and mild subpleural reticular scarring of the bilateral hemithoraces. No evidence for honeycombing to suggest significant pulmonary fibrosis. Moderate atherosclerotic vascular calcifications. Stable appearance of chronic anterior compression deformities of multiple mid and lower thoracic vertebral bodies. Small hiatal hernia. Mild cardiomegaly, stable. Echo: Radiologist's impression: The ejection fraction is estimated to be 60-65%. There is mild mitral stenosis. The mitral valve mean gradient is 5.3 mmHg. There is mildly reduced leaflet mobility. The calculated aortic valve area is 1.8 cm2. There is no pericardial effusion. Labs 01/28/24 09:00 01/28/24 09:00 [facility] Medical History Skin cancer NSTEMI (non-ST elevated myocardial infarction) Diastolic heart failure Cardiac arrest Chest pain Hypertension Hyperlipidemia Coronary artery disease Left hamstring muscle strain UTI (urinary tract infection) Surgical History H/O right heart catheterization History of breast implant removal History of breast surgery History of appendectomy History of cholecystectomy History of total abdominal hysterectomy History of coronary artery stent placement Family History Father Hypertension Diabetes mellitus Mother Hypertension SD (myocardial infarction) Sister SD (myocardial infarction) S/P CABG x 4 Social History household members: children Smoking Status: Never smoker Assessment & Plan Assessment & Plan narrative: 1. Possible atypical pneumonia. Continue antibiotics. 2. Interstitial lung disease exacerbation. Continue Solumedrol and nebs. 3. Acute on chronic respiratory failure with hypoxemia. Continue to treat above and wean down O2 as able. Note patient baseline O2 is 2L and now 3-4L. 4. Anasarca, present on admission and active. Diuresing. 5. HTN. Monitor BP . 6. NIDDM. Hold home medications. Glucose now 100s. Monitor for now and treat with SQ insulin. 7. HLD. Resume home Statin. 8. CAD s/p stents. Denies any chest pain trop and EKG normal. 9. Probable chronic right-sided heart failure with edema, present on admission and active. ECHO fairly normal PLAN: -continue Abx (3-5 day course) -treat for ILD exacerbation with steroids and Abx. -Continue diuresis, switch to oral medications on 01/28. -PT/OT consults. -out of bed to chair as much as possible. -she was having very slow progression, she may require intermediate facility transition. BJ: 01/29 Time-Based Coding :: [TOTAL MINUTES] spent with patient and on the chart (including review of chart, obtaining history, exam, reviewing outside data, placing orders, documenting exam and treatment plan, and counseling patient) on [DATE].
[2024-01-28 08:00] VITALS: BP 179/72; PULSE 78; RESP 18; TEMP 36.1; O2SAT 95
[2024-01-28] MEDS: INSULIN LISPRO 100 UNIT/ML 3ML VIAL SUBCUT ×4 (08:04→22:05)
[2024-01-28] MEDS: cefTRIAXone 1,000 MG in SODIUM CHLORIDE 0.9% 100 ML 200 MG IV (08:05)
[2024-01-28] MEDS: ENOXAPARIN 40 MG/0.4 ML SYRINGE SUBCUT (08:06)
[2024-01-28] MEDS: METOPROLOL IR 25 MG TABLET 12.5 MG PO ×2 (08:07→22:06)
[2024-01-28] MEDS: ESCITALOPRAM 10 MG TABLET 20 MG PO (08:07)
[2024-01-28] MEDS: PANTOPRAZOLE DR 40 MG TABLET PO (08:07)
[2024-01-28] MEDS: ASPIRIN EC 81 MG TABLET PO (08:08)
[2024-01-28 09:11] LABS: Hematocrit 37.6 % (36-46); Mean Corpuscular HGB Conc 31.9 % (30-36); Mean Corpuscular Hemoglobin 23.7 PG (26-34); Mean Corpuscular Volume 74.3 fL (80-100); Platelet Count 272 X10^3/uL (150-400); Red Blood Cell Count 5.06 X10^6/uL (4.0-5.2); Red Cell Distribution Width 20.8 % (11.6-14.8); White Blood Cell Count 11.1 X10^3/uL (4.5-11.0)
[2024-01-28 09:19] LABS: BUN Creatinine Ratio 29.9 (6-22); Blood Urea Nitrogen 35 mg/dL (7-17); Calcium 8.7 mg/dL (8.4-10.2); Carbon Dioxide 35 mmol/L (22-32); Chloride 91 mmol/L (98-107); Estimated Glomerular Filt Rate 45 mL/min (>60); Glucose 343 mg/dL (80-110); HEMOLYSIS < 15 (0-50); Potassium 2.9 mmol/L (3.4-5.1); Sodium 134 mmol/L (137-145)
[2024-01-28 09:22] LABS: Hemoglobin A1C% w Est Avg Glu 6.1 % (4.0-6.0)
--- NOTE | 2024-01-28 09:47 | PC.NURSE ---
Addendum entered by Thad Paniagua R.N. 01/28/24 12:24: provider notified of BS: 412, suggested a change in short acting insulin sliding scale from low to high dose. Provider agreeable and new orders placed. Patient received first dose of Lantus as well. See MAR for details. Original Note: patinet was found to still be bleeding from yesterdays enoxaparin inj. site. Patient was cleaned up and blood was noted to be slowly ozzing from site. Patient was given AM enoxaprin inj. and immediately blood gushed from the inj. site. Provider was notified and this nurse asked if we could get a CBC and A1c ordered on patient. Provider agreeable to suggestion. Will cont. to monitor injection sites. Compression drg. was placed on inj. site to reduce bleeding.
--- NOTE | 2024-01-28 10:33 | CM.DPNOTE ---
DCP Note DRILLER MACHINE reviewed EMR. Per hospitalist in morning rounds, chest CT showed stable lung disease. Likely here another few days. No needs identified at this time. Plan: Anticipating discharge home with family when medically stable. CM Team will continue to follow for coordination of discharge plans. r/o need for HH closer to dc (Hx of [facility]) DONNELL Villanueva
[2024-01-28] MEDS: INSULIN GLARGINE 100 UNIT/ML 3ML PEN 10 UNIT SUBCUT (11:33)
[2024-01-28] MEDS: POTASSIUM CHLORIDE 20 MEQ TAB 40 MEQ PO ×2 (11:33→17:30)
[2024-01-28 16:00] VITALS: BP 139/54; PULSE 66; RESP 18; TEMP 36.1; O2SAT 98
[2024-01-28] MEDS: LORazepam 0.5 MG TABLET PO (16:53)
[2024-01-28 19:00] VITALS: BP 188/69; PULSE 81; RESP 20; TEMP 36.1; O2SAT 97
[2024-01-28] MEDS: ALBUTEROL/IPRATROPIUM 3 ML AMPUL INH (20:49)
[2024-01-28 20:54] VITALS: O2SAT 93
[2024-01-28] MEDS: ATORVASTATIN 20 MG TABLET 80 MG PO (22:06)
[2024-01-28] MEDS: AZITHROMYCIN 500 MG in DEXTROSE 5% IN WATER 250 ML 250 MG IV (23:44)
[2024-01-29] VITALS (11 sets, daily range): BP systolic 140–207; BP diastolic 49–86; PULSE 70–89; RESP 20–23; TEMP 36–37; O2SAT 95–97
--- NOTE | 2024-01-29 02:49 | PC.NURSE ---
Addendum entered by Alexandra Matt R.N. 01/29/24 04:53: Responding to pt call light, found pt with saturated brief; pt stated that normally continent but has been peeing a lot due to coughing. Educated on Purewick option; pt refused. Jacki HERNANDEZ and this RN changed bed/brief. Addendum entered by Alexandra Matt R.N. 01/29/24 04:43: NOC: Pt blood pressure persistently high (SBP 180s-200s), notified MD Adan who ordered 05.mg hydralazine IV. Original Note: NOC: Per Thad yang RN and pt report, BID 40mg enoxaparin injections making patient bleed and bruise profusely and difficult to stop. Upon assessment, this RN noted bruising in back of right arm and abd. MD Adan made aware; holding enoxaparin PM injection per .
[2024-01-29] MEDS: HYDRALAZINE 20 MG/ML VIAL 10 MG IV (04:02)
[2024-01-29 05:58] LABS: Hematocrit 35.3 % (36-46); Hemoglobin 11.5 g/dL (12.0-16.0); Mean Corpuscular HGB Conc 32.7 % (30-36); Mean Corpuscular Volume 73.4 fL (80-100); Platelet Count 252 X10^3/uL (150-400); Red Blood Cell Count 4.81 X10^6/uL (4.0-5.2); Red Cell Distribution Width 20.7 % (11.6-14.8); White Blood Cell Count 9.4 X10^3/uL (4.5-11.0)
[2024-01-29 06:03] LABS: BUN Creatinine Ratio 41.3 (6-22); Blood Urea Nitrogen 43 mg/dL (7-17); Calcium 8.7 mg/dL (8.4-10.2); Carbon Dioxide 33 mmol/L (22-32); Chloride 92 mmol/L (98-107); Estimated Glomerular Filt Rate 52 mL/min (>60); Glucose 289 mg/dL (80-110); HEMOLYSIS < 15 (0-50); Potassium 3.6 mmol/L (3.4-5.1); Sodium 132 mmol/L (137-145)
[2024-01-29] MEDS: cefTRIAXone 1,000 MG in SODIUM CHLORIDE 0.9% 100 ML 200 MG IV (07:57)
[2024-01-29] MEDS: ASPIRIN EC 81 MG TABLET PO (08:00)
[2024-01-29] MEDS: ESCITALOPRAM 10 MG TABLET 20 MG PO (08:00)
[2024-01-29] MEDS: METOPROLOL IR 25 MG TABLET 12.5 MG PO ×2 (08:00→20:48)
[2024-01-29] MEDS: PANTOPRAZOLE DR 40 MG TABLET PO (08:00)
[2024-01-29] MEDS: INSULIN LISPRO 100 UNIT/ML 3ML VIAL SUBCUT ×4 (08:27→20:47)
[2024-01-29] MEDS: INSULIN GLARGINE 100 UNIT/ML 3ML PEN 10 UNIT SUBCUT (08:28)
[2024-01-29] MEDS: ENOXAPARIN 40 MG/0.4 ML SYRINGE SUBCUT ×2 (08:30→20:50)
--- NOTE | 2024-01-29 12:08 | OT.IP.EVAL ---
Current Diagnoses Pneumonia, unspecified organism (01/25/24) Past Medical History (Last Reviewed 01/26/24 @ 07:46 by William Velázquez MD) Cardiac arrest Chest pain Coronary artery disease Diastolic heart failure Hyperlipidemia Hypertension Left hamstring muscle strain NSTEMI (non-ST elevated myocardial infarction) Skin cancer UTI (urinary tract infection) Surgical History (Last Reviewed 01/26/24 @ 07:46 by William Velázquez MD) H/O right heart catheterization History of appendectomy History of breast implant removal History of breast surgery History of cholecystectomy History of coronary artery stent placement History of total abdominal hysterectomy Occupational Therapy Inpatient Evaluation/Re-Eval M1 PT/OT-IP Prior Functional Status Start: 01/29/24 10:38 Freq: NEEDED Status: Active Protocol: Document 01/29/24 11:36 MB (Rec: 01/29/24 12:28 MB [id number]) Medical Review Prior Functional Status Medical History Reviewed Yes Diet/Fluid Consistency Regular Communication WNLs Mobility and Gait Mod I with 4WRW in the house and daughter CGA at steps to get into the house Activities of Daily Living and IADL's Sponge baths and usually does on bathing and dressing Social History Household Members children Living Arrangements Mobile home Number of Floors (Floors) One Floor Number of Stairs To Enter/Railing? 4 steps with two rails to enter, 1 step to toilet Home Environment Walk in Shower Home Equipment Four Wheel Walker,Raised Toilet Seat Without Armrests, Lift Recliner,Grab Bars Near Toilet,Grab Bars In Shower Employment Status Retired Additional Social History Comment Shower seat M1 PT/OT-IP Prior Functional Status Start: 01/29/24 12:15 Freq: NEEDED Status: Active Protocol: Document 01/29/24 12:15 CGR (Rec: 01/29/24 12:34 CGR [id number]) Medical Review Prior Functional Status Medical History Reviewed Yes Communication Pt is an effective verbal communicator but becomes SOB with talking. Mobility and Gait Pt was MOD I with 4WW for mobility but limited with distance d/t SOB. Activities of Daily Living and IADL's Pt was IND in all ADLs but gets help from her kids with bills, laundry and meals. Pt states she no longer showers and only does sponge baths. Social History Household Members children Living Arrangements Mobile home Number of Floors (Floors) One Floor Number of Stairs To Enter/Railing? Pt has 4 steps to enter with B railings. Home Environment Standard Height Toilet,Walk in Shower Home Equipment Four Wheel Walker,Bedside Commode,Shower Seat without Backrest,Shop Assistant,Sock Aid,Lift Recliner,Grab Bars Near Toilet,Grab Bars In Shower Employment Status Retired Additional Social History Comment Pt has an adjustable bed and one step up to the toilet. 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 M2 OT-IP Current Condition Start: 01/29/24 12:15 Freq: Status: Active Protocol: Document 01/29/24 12:15 CGR (Rec: 01/29/24 12:34 CGR [id number]) Occupational Therapy Current Condition Current Condition Evaluation Date 01/29/24 Treatment Diagnosis exacerbation of lung disease Diagnosis Onset Date 01/25/24 M3 OT- IP Subjective and Pain Start: 01/29/24 12:15 Freq: Status: Active Protocol: Document 01/29/24 12:15 CGR (Rec: 01/29/24 12:34 CGR [id number]) OT- Subjective Occupational Therapy Visit Type Type Initial Evaluation Visit Start Time 11:37 Visit Stop Time 12:08 Notes partial co-eval with P.T. OT Pain Assessment Pain When Pain Assessed At Rest Pain Present Pain Present Pain Reported Location Bilateral Ribs Intensity 6 Scale Used Numeric (0 - 10) Management Techniques Modification of Treatment,Re- positioning M4 OT- IP ADL's Start: 01/29/24 12:15 Freq: Status: Active Protocol: Document 01/29/24 12:15 CGR (Rec: 01/29/24 12:34 CGR [id number]) OT [id number] Comments OT Self-Feeding Comments not meal time OT ADL-Grooming General Evaluation Grooming Ability Standby Assistance Comments OT Grooming Comments for washing hands standing at sink OT ADL-Oral Care Comments Oral Care Comments not performed OT ADL-Dressing Comments OT Dressing Comments not performed OT ADL-Toileting Comments OT Toileting Comments pt just performed with nursing prior to OT arrival. OT ADL-Bathing Comments OT Bathing Comments not performed M5 OT- IP IADL's Start: 01/29/24 12:15 Freq: Status: Active Protocol: Document 01/29/24 12:15 CGR (Rec: 01/29/24 12:34 CGR [id number]) OT-Instrumental Activities of Daily Living Deficits IADL Deficits Identified No Deficits Home Safety Awareness Awareness of Need for Assistance at Home Good Awareness Ability to Problem Solve Emergency Able to Problem Solve Situations Medication Management Medication Management No Deficits Identified Money Management Money Management Caregiver Provides Assistance Meal Preparation Meal Preparation Caregiver Provides Assist Posting Clerk Posting Clerk Caregiver Provides Assist Driving Driving Comments Pt does not drive at baseline. M6 OT- IP Functional Cognition Start: 01/29/24 12:15 Freq: Status: Active Protocol: Document 01/29/24 12:15 CGR (Rec: 01/29/24 12:34 CGR [id number]) Cognitive Factors Limiting Selfcare Function Cognitive Ability Level of Alertness Alert Patient Orientation Name,Age,Birthday,Month,Date, Year,Day of Week,Place, Situation Attention Span Ability Capable of Focused Attention, Capable of Sustained Attention Ability to Follow Commands Able to Follow Multi-Step Commands OT- Vision and Hearing OT- Hearing Assessment OT- Hearing Assessment Use of Hearing Aids OT- Vision Assessment Visual Acuity Glasses For Reading Visual Attentiveness WFL Occular Pursuits WFL Visual Convergence WFL M7 OT- IP Mobility and Balance Start: 01/29/24 12:15 Freq: Status: Active Protocol: Document 01/29/24 12:15 CGR (Rec: 01/29/24 12:34 CGR [id number]) OT-Transfer Assessment Sit to and From Stand Sit to and from Stand Contact Guard Assistance Transfers Transfer Ability Contact Guard Assistance Technique Transfer Destination Chair Transfer Technique Stand Step Pivot Devices Transfer Assistive Devices Gait Belt,Front Wheeled Walker Comments Mobility Comments ambulated from chair to sink with FWW OT- Balance Assessment Sitting Balance and Reactions Static Sitting Balance Ability Good Dynamic Sitting Balance Ability Good M8 OT- IP Objective Assessments Start: 01/29/24 12:15 Freq: Status: Active Protocol: Document 01/29/24 12:15 CGR (Rec: 01/29/24 12:34 CGR [id number]) OT Gross Range of Motion Upper Extremity Range of Motion Assessment Within Functional Limits ROM Impairments B shlds 0-90 OT Strength Upper Extremity Strength Assessment Within Functional Limits Comments Strength Comments grossly 4+/5 OT- Coordination Assessment Upper Extremity Finger to Nose Test Within Functional Limits Finger Tapping Test Within Functional Limits OT-Muscle Tone Assessment Muscle Tone WNL Yes OT Sensation Assessment Edema Edema Absent M9 OT- IP Assessment and Plan Start: 01/29/24 12:15 Freq: Status: Active Protocol: Document 01/29/24 12:15 CGR (Rec: 01/29/24 12:34 CGR [id number]) OT Summary Assessment and Plan Potential Rehabilitation Potential Good Analytic Complexity at Evaluation Moderate Summary OT Impairments Pain,Range of Motion,Balance, Functional Mobility,Grooming, Dressing,Toileting,Bathing, Toilet Transfers,Shower Transfers,Activity Tolerance Progress Towards Goals Progressing Toward Goals Assessment Summary Pt presents as a moderate complexity evaluation s/p admit for exacerbation of lung disease. Pt is highly motivated but feeling fatigued and out of breath with activity and talking. Pt ambulated to sink for washing hands. Pt is progressing well and will be appropriate for discharge home with family support and home health and shower aid to assist with showers at home. Goals Grooming Goal Independent Dressing Goal Independent Toileting Goal Independent Bathing Goal Minimal Assistance Toilet Transfer Goal Independent Shower Transfer Goal Contact Guard Assistance Days to Meet Goals 10 Frequency of Treatment Other frequency 5x per week. Treatment Plan OT Treatment Plan ADL Training,Functional Mobility,Patient/Family Education,Discharge Planning Other Treatment Recommendations and Next energy conservation training. Treatment Focus Discharge Recommendations OT Discharge Recommendations Home with 05/12 Assist Available,Home Health Other Discharge Recommendations home health aid for bathing. Transportation Needs at Discharge Private Vehicle
[2024-01-29] MEDS: ACETAMINOPHEN 325 MG TABLET 650 MG PO (12:09)
--- NOTE | 2024-01-29 12:28 | PT.IIE ---
Current Diagnoses Pneumonia, unspecified organism (01/25/24) Surgical History (Last Reviewed 01/26/24 @ 07:46 by William Velázquez MD) H/O right heart catheterization History of appendectomy History of breast implant removal History of breast surgery History of cholecystectomy History of coronary artery stent placement History of total abdominal hysterectomy Medical History (Last Reviewed 01/26/24 @ 07:46 by William Velázquez MD) Cardiac arrest Chest pain Coronary artery disease Diastolic heart failure Hyperlipidemia Hypertension Left hamstring muscle strain NSTEMI (non-ST elevated myocardial infarction) Skin cancer UTI (urinary tract infection) Physical Therapy Inpatient Evaluation/Re-Eval M1 PT/OT-IP Prior Functional Status Start: 01/29/24 10:38 Freq: NEEDED Status: Active Protocol: Document 01/29/24 11:36 MB (Rec: 01/29/24 12:28 MB [id number]) Medical Review Prior Functional Status Medical History Reviewed Yes Diet/Fluid Consistency Regular Communication WNLs Mobility and Gait Mod I with 4WRW in the house and daughter CGA at steps to get into the house Activities of Daily Living and IADL's Sponge baths and usually does on bathing and dressing Social History Household Members children Living Arrangements Mobile home Number of Floors (Floors) One Floor Number of Stairs To Enter/Railing? 4 steps with two rails to enter, 1 step to toilet Home Environment Walk in Shower Home Equipment Four Wheel Walker,Raised Toilet Seat Without Armrests, Lift Recliner,Grab Bars Near Toilet,Grab Bars In Shower Employment Status Retired Additional Social History Comment Shower seat M2 PT-IP Current Condition Start: 01/29/24 10:38 Freq: NEEDED Status: Active Protocol: Document 01/29/24 11:36 MB (Rec: 01/29/24 12:28 MB [id number]) Physical Therapy Current Condition Current Condition Evaluation Date 01/29/24 Treatment Diagnosis Coughing and wheezing M3 PT-IP Subjective Start: 01/29/24 10:38 Freq: NEEDED Status: Active Protocol: Document 01/29/24 11:36 MB (Rec: 01/29/24 12:28 MB [id number]) Subjective Physical Therapy Visit Type Type Initial Evaluation Visit Start Time 11:36 Visit Stop Time 11:55 Number of PROCUREMENT ENGINEER Visits 0 Physical Therapy Visit Comments Patient Comments Pt states that she is hoping to live to 89 y/o like her grandmother and that she wants to see the great grandkids grow up. Therapy Pain Assessment Pain When Pain Assessed At Rest Pain Present Pain Present Pain Reported Location Right Ribs Intensity 6 Scale Used Numeric (0 - 10) M4 PT-IP Mobility and Gait Start: 01/29/24 10:38 Freq: NEEDED Status: Active Protocol: Document 01/29/24 11:36 MB (Rec: 01/29/24 12:28 MB [id number]) PT-Transfer Assessment Sit to and From Stand Sit to and from Stand Contact Guard Assistance Equipment Transfer Assistive Device Gait Belt,Front Wheeled Walker Orthotic/Prosthetic Devices or Brace: No Transfers Transfer Technique Ambulation to sink Transfer Ability Level of Assist Contact Guard Assistance,1 Person Assistance,Use of Upper Extremities Comments Mobility Comments Pt declines bed mobility as she just got up with LUMP ROLLER, she requires CGA for STS from chair, gait 10'x2, standing at sink and return to chair Gait Assessment Gait Gait Assistance Required: Contact Guard Assist Distance (Feet) 10 Assistive Devices Assistive Device Gait Belt,Front Wheeled Walker Orthotic/Prosthetic Devices or Brace: No Gait Deviations General Gait Pattern Decreased Feet Clearance, Flexed Trunk,Wide Based Gait Factors Limiting Gait Function Factors Limiting Gait Function Decreased Activity Tolerance, Decreased Sensation,Decreased Strength,Pain,Poor Balance, Poor Safety Awareness Comments Gait Comments Pt with WILSON and O2 sats on 3. 5L O2 remain at least 98% with mobility PT-Balance Assessment Sitting Balance and Reactions Static Sitting Balance Ability Good Dynamic Sitting Balance Ability Good Standing Balance and Reactions Static Standing Balance Ability Good Dynamic Standing Balance Ability Good Device Used RW M5 PT-IP Objective Assessments Start: 01/29/24 10:38 Freq: NEEDED Status: Active Protocol: Document 01/29/24 11:36 MB (Rec: 01/29/24 12:28 MB [id number]) Orientation Orientation/Cognition Level of Alertness Alert Orientation Name,Age,Birthday,Month,Date, Year,Day of Week,Place, Situation Language Function Ability No Deficits Noted Safety Awareness Understands Safety Issues Memory Description No Deficits Noted Gross Range of Motion Upper Extremity ROM Impairments Defer to OT and more restrictions in left shoulder Lower Extremity ROM Assessment Right Impaired Impairments Decreased right ankle movement and ankle with ecchymosis laterally Strength Lower Extremity Strength Assessment Bilaterally Impaired Knee R knee flexion and extension 4 /5; left knee flexion and extension 4+/5 Ankle R ankle DF 3/5, left 4/5; right great toe extension 3-/5 and left 4/5 Coordination Assessment Gross Coordination Gross Coordination Impaired Sensation Assessment Sensation Sensation Description Numbness Comments Sensation Comments Decreased sensation B LEs Muscle Tone Muscle Tone WNL Yes M6 PT-IP Treatment Start: 01/29/24 10:38 Freq: NEEDED Status: Active Protocol: Document 01/29/24 11:36 MB (Rec: 01/29/24 12:28 MB [id number]) Physical Therapy Treatment Exercises Exercises Ankle Pumps Education Education Provided Safety M7 PT-IP Assessment and Plan Start: 01/29/24 10:38 Freq: NEEDED Status: Active Protocol: Document 01/29/24 11:36 MB (Rec: 01/29/24 12:28 MB [id number]) PT Summary Assessment and Plan Potential Rehabilitation Potential Fair Status of Condition at Evaluation Evolving Summary Impairments Pain,ROM,Strength,Balance, Coordination,Sensation,Bed Mobility,Transfers,Gait, Activity Tolerance Progress Towards Goals Slow Progress due to Activity Tolerance Assessment Summary Pt is an 88 y/o female presenting with WILSON and currently on 3.5L O2 at rest and with mobility today and sats are 98-100%. Pt requires rest breaks, even with talking . She declines bed mobility as she recently got up with LUMP ROLLER and is agreeable to transfers and gait to sink and back. Daughter is nearby for treatment. Pt c/o rib pain with mobility and coughing. Pt gait trains with 4WRW at home and may progress towards this during acute stay as pt in hospital. Goals Bed Mobility Goal Independent Transfer Goal Independent,Front Wheeled Walker,Four Wheeled Walker Gait Goal Independent,Front Wheel Walker ,Four Wheel Walker Gait Distance 50 Other Goals Pt will ascend and descend 4 steps with two rails and no more than CGA to allow safe home entrance. Days to Meet Goals 5 Frequency of Treatment Frequency Of Treatment Once a Day Treatment Plan Physical Therapy Treatment Plan Bed Mobility Training,Transfer Training,Gait Training, Therapeutic Exercise,Balance Retraining,Discharge Planning, Hot or Cold Pack,Neuromuscular Re-ed,Coordination Retraining ,Manual Therapy Precautions Other Precautions O2 Weight Bearing Status Allowed Weight Bearing Amount (enter % No WB restrictions or #) (%) Recommendations To Nursing Amount of Assist Needed 1 Person Assist Discharge Recommendations PT Discharge Recommendations Home with Assistance,Home Health Transportation Needs at Discharge Private Vehicle
[2024-01-29] MEDS: FUROSEMIDE 40 MG/4 ML VIAL IV (12:45)
--- NOTE | 2024-01-29 15:16 | CM.DPNOTE ---
DCP Note PER DIEM CLERK reviewed EMR. Per multidisciplinary team in morning rounds, hospitalist unsure on BJ. PT/OT rec home with assistance and HH. PER DIEM CLERK met with pt and dtr in room. report that hospitalist told them he wants to have her here a few more days. Open and agreeable to restarting care with [facility]. Deny other needs or questions at this time. PER DIEM CLERK faxed initial referral information to [facility]. Spoke with [facility], no red flags why they couldn't accept pt back, acceptance pending but will review. PER DIEM CLERK completed f2f and order P: home with dtr and [facility] when medically stable. CM team will continue to follow closely DONNELL Villanueva
--- NOTE | 2024-01-29 15:50 | PM.PN.1 ---
Subjective Subjective Interval history: 88-year-old female, admitted with exacerbation of interstitial lung disease vs PNA vs CHF exacerbation. Repeat CT scan reveals fairly stable lung disease. S: Her breathing feels about the same today. She does feel extremely fatigued. No nausea. She was still has a reactive cough if she takes a deep breath or breathes out too quickly. No fevers. Exam Vital Signs (past 8 hours): - 01/29/24 08:00 01/29/24 08:04 01/29/24 09:24 Temperature 97.9 F Pulse Rate 86 Respiratory Rate 23 Blood Pressure 197/77 H 147/58 H Pulse Oximetry 95 97 Oxygen Delivery Method Nasal Cannula Oxygen Flow Rate 2 Fraction of Inspired Oxygen 28 01/29/24 14:00 Temperature 97.8 F Pulse Rate 72 Respiratory Rate 20 Blood Pressure 140/49 L Pulse Oximetry 97 Oxygen Delivery Method Oxygen Flow Rate 2 Fraction of Inspired Oxygen Fraction of Inspired Oxygen 28 SaO2/FiO2 Ratio 346 Oxygen Delivery Method Nasal Cannula Oxygen Flow Rate 2 Narrative Exam Narrative: NAD, alert and oriented. Fluent speech. Lungs are clear, normal rate and effort. Dry crackles in the posterior bases, minimal expiratory wheezing. Heart is regular, no murmur gallop or rub. Abdomen is soft, non distended. Extremities are free of edema. Objective Labs 01/29/24 04:50 01/29/24 04:50 Labs: Laboratory Results - last 24 hr 01/29/24 04:50 WBC 9.4 RBC 4.81 Hgb 11.5 L Hct 35.3 L MCV 73.4 L MCH 24.0 L MCHC 32.7 RDW 20.7 H Plt Count 252 Sodium 132 L Potassium 3.6 Chloride 92 L Carbon Dioxide 33 H BUN 43 H Creatinine 1.04 Estimated GFR 52 L BUN/Creatinine Ratio 41.3 H Glucose 289 H Calcium 8.7 PFSH Medical History Skin cancer NSTEMI (non-ST elevated myocardial infarction) Diastolic heart failure Cardiac arrest Chest pain Hypertension Hyperlipidemia Coronary artery disease Left hamstring muscle strain UTI (urinary tract infection) Surgical History H/O right heart catheterization History of breast implant removal History of breast surgery History of appendectomy History of cholecystectomy History of total abdominal hysterectomy History of coronary artery stent placement Family History Father Hypertension Diabetes mellitus Mother Hypertension MD (myocardial infarction) Sister MD (myocardial infarction) S/P CABG x 4 Social History household members: children Smoking Status: Never smoker Assessment & Plan Assessment & Plan narrative: 1. Possible atypical pneumonia. Continue antibiotics. 2. Interstitial lung disease exacerbation. Continue Solumedrol and nebs. 3. Acute on chronic respiratory failure with hypoxemia. Continue to treat above and wean down O2 as able. 4. Anasarca, present on admission and active. Diuresing. 5. HTN. Monitor BP . 6. NIDDM. Hold home medications. Glucose now 100s. Monitor for now and treat with SQ insulin. 7. HLD. Resume home Statin. 8. CAD s/p stents. Denies any chest pain trop and EKG normal. 9. Acute on chronic diastolic heart failure, present on admission and active PLAN: -continue Abx (5 day course) -reduce steroids to prednisone 60 mg daily for possible ILD exacerbation. Outpatient pulmonary referral. Was also previously on Advair (?) , will add back formulary alternative nebulizer therapies. RT evaluation and treatment. -Continue diuresis with BID furosemide -PT/OT consults, recommended SNF but patient refuses. Will discharge home with home health once improved -TTE with normal EF and mild aortic stenosis. Likely discharge home with home health in a couple of days. Time-Based Coding :: [TOTAL MINUTES] spent with patient and on the chart (including review of chart, obtaining history, exam, reviewing outside data, placing orders, documenting exam and treatment plan, and counseling patient) on [DATE].
[2024-01-29] MEDS: LORazepam 0.5 MG TABLET PO (18:21)
[2024-01-29] MEDS: BUDESONIDE 0.5 MG/2 ML NEB INH (19:39)
[2024-01-29] MEDS: ALBUTEROL/IPRATROPIUM 3 ML AMPUL INH (19:39)
[2024-01-29] MEDS: guaiFENesin ER 600 MG TAB PO (20:48)
[2024-01-29] MEDS: ATORVASTATIN 20 MG TABLET 80 MG PO (20:49)
[2024-01-29] MEDS: AZITHROMYCIN 500 MG in DEXTROSE 5% IN WATER 250 ML 250 MG IV (22:49)
[2024-01-30] VITALS (10 sets, daily range): BP systolic 142–204; BP diastolic 50–81; PULSE 66–83; RESP 17–20; TEMP 35.8–36.4; O2SAT 94–99
[2024-01-30] MEDS: FUROSEMIDE 40 MG/4 ML VIAL IV ×2 (00:30→11:51)
[2024-01-30] MEDS: HYDRALAZINE 20 MG/ML VIAL 10 MG IV (04:20)
[2024-01-30] MEDS: ACETAMINOPHEN 325 MG TABLET 650 MG PO ×2 (04:28→21:02)
[2024-01-30 04:56] LABS: Add Manual Diff / Slide Review NO; Basophils Absolute Auto 0 /uL (0-100); Eosinophils Absolute Auto 0 /uL (0-450); Hematocrit 35.4 % (36-46); Hemoglobin 11.7 g/dL (12.0-16.0); Lymphocytes Absolute Auto 1800 /uL (1100-4500); Lymphocytes Percent Auto 15.4 % (25-40); Mean Corpuscular Hemoglobin 23.9 PG (26-34); Mean Corpuscular Volume 72.4 fL (80-100); Monocytes Absolute Auto 1000 /uL (0-900); Monocytes Percent Auto 8.2 % (3-14); Neutrophils Absolute Auto 9000 /uL (1500-7000); Neutrophils Percent Auto 76.4 % (50-75); Platelet Count 253 X10^3/uL (150-400); Red Cell Distribution Width 20.7 % (11.6-14.8); White Blood Cell Count 11.7 X10^3/uL (4.5-11.0)
[2024-01-30 05:08] LABS: Alanine Aminotransferase 12 IU/L (<35); Albumin 3.9 g/dL (3.5-5.0); Albumin Globulin Ratio 1.3 (1.0-2.8); Alkaline Phosphatase 50 U/L (38-126); Aspartate Aminotransferase 25 IU/L (14-36); BUN Creatinine Ratio 47.4 (6-22); Bilirubin Total 0.5 mg/dL (0.2-1.3); Blood Urea Nitrogen 46 mg/dL (7-17); Calcium 8.7 mg/dL (8.4-10.2); Carbon Dioxide 33 mmol/L (22-32); Chloride 91 mmol/L (98-107); Estimated Glomerular Filt Rate 57 mL/min (>60); Glucose 243 mg/dL (80-110); HEMOLYSIS < 15 (0-50); Magnesium 2.2 mg/dL (1.6-2.3); Potassium 3.2 mmol/L (3.4-5.1); Sodium 132 mmol/L (137-145); Total Protein 6.9 g/dL (6.3-8.2)
[2024-01-30] MEDS: BUDESONIDE 0.5 MG/2 ML NEB INH ×2 (07:59→20:33)
[2024-01-30] MEDS: ALBUTEROL/IPRATROPIUM 3 ML AMPUL INH ×3 (07:59→20:33)
[2024-01-30] MEDS: ASPIRIN EC 81 MG TABLET PO (08:18)
[2024-01-30] MEDS: ESCITALOPRAM 10 MG TABLET 20 MG PO (08:18)
[2024-01-30] MEDS: METOPROLOL IR 25 MG TABLET 12.5 MG PO ×2 (08:18→21:03)
[2024-01-30] MEDS: guaiFENesin ER 600 MG TAB PO ×2 (08:19→21:03)
[2024-01-30] MEDS: PANTOPRAZOLE DR 40 MG TABLET PO (08:19)
[2024-01-30] MEDS: predniSONE 20 MG TABLET 60 MG PO (08:19)
[2024-01-30] MEDS: ENOXAPARIN 40 MG/0.4 ML SYRINGE SUBCUT ×2 (08:28→21:02)
[2024-01-30] MEDS: INSULIN LISPRO 100 UNIT/ML 3ML VIAL SUBCUT ×4 (08:29→21:04)
[2024-01-30] MEDS: INSULIN GLARGINE 100 UNIT/ML 3ML PEN 10 UNIT SUBCUT (08:30)
[2024-01-30] MEDS: cefTRIAXone 1,000 MG in SODIUM CHLORIDE 0.9% 100 ML 200 MG IV (08:37)
--- NOTE | 2024-01-30 09:58 | PT.IPTN ---
Current Diagnoses Pneumonia, unspecified organism (01/25/24) Physical Therapy Treatment Note M2 PT-IP Current Condition Start: 01/29/24 10:38 Freq: NEEDED Status: Active Protocol: Document 01/29/24 11:36 MB (Rec: 01/29/24 12:28 MB [id number]) Physical Therapy Current Condition Current Condition Evaluation Date 01/29/24 Treatment Diagnosis Coughing and wheezing M3 PT-IP Subjective Start: 01/29/24 10:38 Freq: NEEDED Status: Active Protocol: Document 01/30/24 10:27 TS (Rec: 01/30/24 10:37 TS [id number]) Subjective Physical Therapy Visit Type Type Treatment Note Visit Start Time 09:58 Visit Stop Time 10:25 Number of STAVE LOG CUT OFF SAW OPERATOR Visits 1 Physical Therapy Visit Comments Patient Comments Pt reports feeling weak, she is agreeable to PT. M4 PT-IP Mobility and Gait Start: 01/29/24 10:38 Freq: NEEDED Status: Active Protocol: Document 01/30/24 10:27 TS (Rec: 01/30/24 10:37 TS [id number]) PT-Bed Mobility Assessment Supine to Sit Supine to Sit Standby Assistance Scooting Scooting to Edge of Bed Standby Assistance PT-Transfer Assessment Sit to and From Stand Sit to and from Stand Standby Assistance Equipment Transfer Assistive Device Gait Belt,Front Wheeled Walker Orthotic/Prosthetic Devices or Brace: No Comments Mobility Comments Pt resting on 2.5L's of o2 at 99%, BP 170/58 in sitting. Supine to sit SBA with BUE support, pt requires extra time to come into sitting due to fatigue. STS with FWW SBA. She ambulates ~20' in the room with FWW, pt has some SOB, Spo2 96%. Pt was left in the chair, all needs met. Gait Assessment Gait Gait Assistance Required: Standby Assistance Distance (Feet) 20 Assistive Devices Assistive Device Gait Belt,Front Wheeled Walker Orthotic/Prosthetic Devices or Brace: No Gait Deviations General Gait Pattern Decreased Feet Clearance, Flexed Trunk,Wide Based Gait Factors Limiting Gait Function Factors Limiting Gait Function Decreased Activity Tolerance, Decreased Sensation,Decreased Strength,Pain,Poor Balance, Poor Safety Awareness PT-Balance Assessment Sitting Balance and Reactions Static Sitting Balance Ability Good Dynamic Sitting Balance Ability Good Standing Balance and Reactions Static Standing Balance Ability Good Dynamic Standing Balance Ability Good Device Used FWW M5 PT-IP Objective Assessments Start: 01/29/24 10:38 Freq: NEEDED Status: Active Protocol: Document 01/29/24 11:36 MB (Rec: 01/29/24 12:28 MB [id number]) Orientation Orientation/Cognition Level of Alertness Alert Orientation Name,Age,Birthday,Month,Date, Year,Day of Week,Place, Situation Language Function Ability No Deficits Noted Safety Awareness Understands Safety Issues Memory Description No Deficits Noted Gross Range of Motion Upper Extremity ROM Impairments Defer to OT and more restrictions in left shoulder Lower Extremity ROM Assessment Right Impaired Impairments Decreased right ankle movement and ankle with ecchymosis laterally Strength Lower Extremity Strength Assessment Bilaterally Impaired Knee R knee flexion and extension 4 /5; left knee flexion and extension 4+/5 Ankle R ankle DF 3/5, left 4/5; right great toe extension 3-/5 and left 4/5 Coordination Assessment Gross Coordination Gross Coordination Impaired Sensation Assessment Sensation Sensation Description Numbness Comments Sensation Comments Decreased sensation B LEs Muscle Tone Muscle Tone WNL Yes M6 PT-IP Treatment Start: 01/29/24 10:38 Freq: NEEDED Status: Active Protocol: Document 01/30/24 10:27 TS (Rec: 01/30/24 10:37 TS [id number]) Physical Therapy Treatment Education Education Provided Safety M7 PT-IP Assessment and Plan Start: 01/29/24 10:38 Freq: NEEDED Status: Active Protocol: Document 01/30/24 10:27 TS (Rec: 01/30/24 10:37 TS [id number]) PT Summary Assessment and Plan Potential Rehabilitation Potential Fair Summary Impairments Pain,ROM,Strength,Balance, Coordination,Sensation,Bed Mobility,Transfers,Gait, Activity Tolerance Progress Towards Goals Slow Progress due to Activity Tolerance Assessment Summary Lida continues to have to difficulty with her mobility due to decreased activity tolerance She fatigues quickly with bed mobility and ambulating short distances in the room. PT is recommending return home with assist and HHPT. Goals Bed Mobility Goal Independent Transfer Goal Independent,Front Wheeled Walker,Four Wheeled Walker Gait Goal Independent,Front Wheel Walker ,Four Wheel Walker Gait Distance 50 Other Goals Pt will ascend and descend 4 steps with two rails and no more than CGA to allow safe home entrance. Days to Meet Goals 5 Frequency of Treatment Frequency Of Treatment Once a Day Treatment Plan Physical Therapy Treatment Plan Bed Mobility Training,Transfer Training,Gait Training, Therapeutic Exercise,Balance Retraining,Discharge Planning, Hot or Cold Pack,Neuromuscular Re-ed,Coordination Retraining ,Manual Therapy Precautions Other Precautions O2 Weight Bearing Status Allowed Weight Bearing Amount (enter % No WB restrictions or #) (%) Recommendations To Nursing Amount of Assist Needed 1 Person Assist Discharge Recommendations PT Discharge Recommendations Home with Assistance,Home Health Transportation Needs at Discharge Private Vehicle
--- NOTE | 2024-01-30 10:58 | DIET.CONS ---
Dietary Consultation Note Admission Date: 01/25/2024 23:11 Assessment: 88 y F admitted for exacerbation of interstitial lung disease vs PNA vs CHF exacerbation. Nutrition screened for LOS. Attempted visit this morning, pt working with PT. Chart reviewed. Per H&P report, pt reported decrease appetite for awhile. Recorded po intakes 75-100%, DFM reviewed for meal composition. No recent weight loss. Edema noted in progress note. Will monitor po intakes. No nutrition intervention needed at this time. Ht: 154.94 cm Wt: 99.6 kg BMI: 42.5 UBW: 95.7 kg on 08/12/23 Last BM: 01/29/24 (01/29/24 14:00) MNA: 13 Cirilo Score: 19 Diet: 01/26/24 Lunch caregiver tray [Courtesy Tray (Peds, comfort care)] Diet Modifications: 01/28/24 Lunch Carbohydrate Consistent Diet Diet Modifications: Carbohydrate level: Large (4 CHO) Reflex DM orders: No Food Texture: Level 7 - Regular Liquid Consistency: Level 0 - Thin Nutrition Percent Meal Consumed 100% 01/30/24 09:19 Percent Meal Consumed 100% 01/29/24 18:00 Percent Meal Consumed 75% 01/29/24 14:00 Percent Meal Consumed 75% 01/29/24 09:03 Percent Meal Consumed 25% 01/28/24 18:00 Percent Meal Consumed 75% 01/28/24 13:05 Labs: RBC 4.90 X10^6/uL (4.0-5.2) 01/30/24 04:10 Hgb 11.7 g/dL (12.0-16.0) L 01/30/24 04:10 Hct 35.4 % (36-46) L 01/30/24 04:10 Creatinine 0.97 mg/dL (0.52-1.04) 01/30/24 04:10 Hemoglobin A1c 6.1 % (4.0-6.0) H 01/28/24 09:00 Lactate 1.4 mmol/L (0.7-2.1) 01/25/24 18:07 NT-Pro-B Natriuret Pep 786 pg/mL (<450) H 01/25/24 18:07 Electronically Signed by: Dori Barrera 01/30/24 10:58 Clinical Dietitian [address] [place] [address]
--- NOTE | 2024-01-30 11:20 | CM.DPNOTE ---
DCP Note [employer] reviewed EMR. Per hospitalist in morning rounds, pt at baseline O2. Per Mahnaz at [facility], able to accept pt. [facility] [employer] met with pt and dtr in room. [employer] [employer] answered HH questions to best of ability. In agreement with plan. Report CARLOS or grand daughter could transport pt home when pt discharges. P: dc home with family and [facility] when medically stable. CM team will continue to follow as needed DONNELL Villanueva
[2024-01-30] MEDS: POTASSIUM CHLORIDE 20 MEQ TAB 40 MEQ PO (11:51)
[2024-01-30 12:47] LABS: Anisocytosis 1+; Microcytosis 1+
--- NOTE | 2024-01-30 15:32 | OT.IP.TRT ---
Current Diagnoses Pneumonia, unspecified organism (01/25/24) Occupational Therapy Treatment Note M2 OT-IP Current Condition Start: 01/29/24 12:15 Freq: Status: Active Protocol: Document 01/29/24 12:15 CGR (Rec: 01/29/24 12:34 CGR [id number]) Occupational Therapy Current Condition Current Condition Evaluation Date 01/29/24 Treatment Diagnosis exacerbation of lung disease Diagnosis Onset Date 01/25/24 M3 OT- IP Subjective and Pain Start: 01/29/24 12:15 Freq: Status: Active Protocol: Document 01/30/24 15:51 CCC (Rec: 01/30/24 15:56 CCC [id number]) OT- Subjective Occupational Therapy Visit Type Type Treatment Note Visit Start Time 15:32 Visit Stop Time 15:45 Occupational Therapy Visit Comments Patient Comments Pt states too tired as just got into bed. Pt agreed to go over energy conservation strategies for home use. Patient/Caregiver Goals TO go home. OT Pain Assessment Pain When Pain Assessed At Rest Pain Present Pain Present Pain Reported M4 OT- IP ADL's Start: 01/29/24 12:15 Freq: Status: Active Protocol: Document 01/30/24 15:51 [facility] (Rec: 01/30/24 15:56 [facility] [id number]) OT ADL-Dressing Comments OT Dressing Comments Able to go over energy conservation needs for ADL's. M5 OT- IP IADL's Start: 01/29/24 12:15 Freq: Status: Active Protocol: Document 01/29/24 12:15 CGR (Rec: 01/29/24 12:34 CGR [id number]) OT-Instrumental Activities of Daily Living Deficits IADL Deficits Identified No Deficits Home Safety Awareness Awareness of Need for Assistance at Home Good Awareness Ability to Problem Solve Emergency Able to Problem Solve Situations Medication Management Medication Management No Deficits Identified Money Management Money Management Caregiver Provides Assistance Meal Preparation Meal Preparation Caregiver Provides Assist Brand Director Brand Director Caregiver Provides Assist Driving Driving Comments Pt does not drive at baseline. M6 OT- IP Functional Cognition Start: 01/29/24 12:15 Freq: Status: Active Protocol: Document 01/30/24 15:51 [facility] (Rec: 01/30/24 15:56 [facility] [id number]) Cognitive Factors Limiting Selfcare Function Cognitive Comments Cognitive Assessment Comments INtact and able to go over energy conservation needs with pt. Pt states looking into getting a motorized wc for in house as have to walk 100ft at times. Encouraged pt to walk and try to sit more often so not to get weak if just using a motorized wc to get around. M7 OT- IP Mobility and Balance Start: 01/29/24 12:15 Freq: Status: Active Protocol: Document 01/29/24 12:15 CGR (Rec: 01/29/24 12:34 CGR [id number]) OT-Transfer Assessment Sit to and From Stand Sit to and from Stand Contact Guard Assistance Transfers Transfer Ability Contact Guard Assistance Technique Transfer Destination Chair Transfer Technique Stand Step Pivot Devices Transfer Assistive Devices Gait Belt,Front Wheeled Walker Comments Mobility Comments ambulated from chair to sink with FWW OT- Balance Assessment Sitting Balance and Reactions Static Sitting Balance Ability Good Dynamic Sitting Balance Ability Good M8 OT- IP Objective Assessments Start: 01/29/24 12:15 Freq: Status: Active Protocol: Document 01/29/24 12:15 CGR (Rec: 01/29/24 12:34 CGR [id number]) OT Gross Range of Motion Upper Extremity Range of Motion Assessment Within Functional Limits ROM Impairments B shlds 0-90 OT Strength Upper Extremity Strength Assessment Within Functional Limits Comments Strength Comments grossly 4+/5 OT- Coordination Assessment Upper Extremity Finger to Nose Test Within Functional Limits Finger Tapping Test Within Functional Limits OT-Muscle Tone Assessment Muscle Tone WNL Yes OT Sensation Assessment Edema Edema Absent M9 OT- IP Assessment and Plan Start: 01/29/24 12:15 Freq: Status: Active Protocol: Document 01/30/24 15:51 [facility] (Rec: 01/30/24 15:56 [facility] [id number]) OT Summary Assessment and Plan Potential Rehabilitation Potential Good Analytic Complexity at Evaluation Moderate Summary OT Impairments Pain,Range of Motion,Balance, Functional Mobility,Grooming, Dressing,Toileting,Bathing, Toilet Transfers,Shower Transfers,Activity Tolerance Progress Towards Goals Progressing Toward Goals Assessment Summary Went over energy conservation needs with pt for ADL and mobility needs. Pt to go home with home health when medically stable and benefit from a shower aid. Goals Grooming Goal Independent Dressing Goal Independent Toileting Goal Independent Bathing Goal Minimal Assistance Toilet Transfer Goal Independent Shower Transfer Goal Contact Guard Assistance Days to Meet Goals 9 Frequency of Treatment Other frequency 5x per week. Treatment Plan OT Treatment Plan ADL Training,Functional Mobility,Patient/Family Education,Discharge Planning Discharge Recommendations OT Discharge Recommendations Home with 24/7 Assist Available,Home Health Other Discharge Recommendations home health aid for bathing. Transportation Needs at Discharge Private Vehicle
--- NOTE | 2024-01-30 16:28 | PM.PN.1 ---
Subjective Subjective Interval history: 88-year-old female, admitted with exacerbation of interstitial lung disease vs PNA vs CHF exacerbation. S: Her breathing feels about the same today. Her cough is a bit more productive so sputum sample ordered. She does feel extremely fatigued. No nausea. She was still has a reactive cough if she takes a deep breath or breathes out too quickly. No fevers. Exam Vital Signs (past 8 hours): - 01/30/24 12:00 01/30/24 13:56 Temperature 96.7 F L Pulse Rate 66 69 Respiratory Rate 18 20 Blood Pressure 151/56 H Pulse Oximetry 97 97 Oxygen Delivery Method Nasal Cannula Oxygen Flow Rate 2 2 Fraction of Inspired Oxygen 28 Fraction of Inspired Oxygen 28 SaO2/FiO2 Ratio 346 Oxygen Delivery Method Nasal Cannula Oxygen Flow Rate 2 Narrative Exam Narrative: NAD, alert and oriented. Fluent speech. Lungs are clear, normal rate and effort. Dry crackles in the posterior bases, minimal expiratory wheezing. Heart is regular, no murmur gallop or rub. Abdomen is soft, non distended. Extremities are free of edema. Objective Labs 01/30/24 04:10 01/30/24 04:10 Labs: Laboratory Results - last 24 hr 01/30/24 04:10 WBC 11.7 H RBC 4.90 Hgb 11.7 L Hct 35.4 L MCV 72.4 L MCH 23.9 L MCHC 33.0 RDW 20.7 H Plt Count 253 Neut % (Auto) 76.4 H Lymph % (Auto) 15.4 L Dolores % (Auto) 8.2 Eos % (Auto) 0.0 L Baso % (Auto) 0.0 Neut # (Auto) 9000 H Lymph # (Auto) 1800 Dolores # (Auto) 1000 H Eos # (Auto) 0 Baso # (Auto) 0 RBC Morphology See below Anisocytosis 1+ H Microcytosis 1+ H Sodium 132 L Potassium 3.2 L Chloride 91 L Carbon Dioxide 33 H BUN 46 H Creatinine 0.97 Estimated GFR 57 L BUN/Creatinine Ratio 47.4 H Glucose 243 H Calcium 8.7 Magnesium 2.2 Total Bilirubin 0.5 AST 25 ALT 12 Alkaline Phosphatase 50 Total Protein 6.9 Albumin 3.9 Globulin 3.0 Albumin/Globulin Ratio 1.3 PFSH Medical History Skin cancer NSTEMI (non-ST elevated myocardial infarction) Diastolic heart failure Cardiac arrest Chest pain Hypertension Hyperlipidemia Coronary artery disease Left hamstring muscle strain UTI (urinary tract infection) Surgical History H/O right heart catheterization History of breast implant removal History of breast surgery History of appendectomy History of cholecystectomy History of total abdominal hysterectomy History of coronary artery stent placement Family History Father Hypertension Diabetes mellitus Mother Hypertension [place] (myocardial infarction) Sister [place] (myocardial infarction) S/P CABG x 4 Social History household members: children Smoking Status: Never smoker Assessment & Plan Assessment & Plan narrative: 1. Possible atypical bacterial pneumonia. Continue antibiotics. 2. Interstitial lung disease exacerbation. Continue Solumedrol and nebs. 3. Acute on chronic respiratory failure with hypoxemia. Continue to treat above and wean down O2 as able. 4. Anasarca, present on admission and active. Diuresing. 5. HTN. Monitor BP . 6. NIDDM. Hold home medications. Glucose now 100s. Monitor for now and treat with SQ insulin. 7. HLD. Resume home Statin. 8. CAD s/p stents. Denies any chest pain trop and EKG normal. 9. Acute on chronic diastolic heart failure, present on admission and active PLAN: -continue Abx (5 day course), consider additional days if WBC continuing to rise or alternative therapy depending on sputum culture results. -reduced steroids to prednisone 60 mg daily for possible ILD exacerbation. Outpatient pulmonary referral. Was also previously on Advair (?) , will add back formulary alternative nebulizer therapies. RT evaluation and treatment. -Continue diuresis with BID furosemide -PT/OT consults, recommended SNF but patient refuses. Will discharge home with home health once improved likely 1-2 days -TTE with normal EF and mild aortic stenosis. -follow up sputum culture ordered today. -WBC 11.7 Likely discharge home with home health in a couple of days. Time-Based Coding :: [TOTAL MINUTES] spent with patient and on the chart (including review of chart, obtaining history, exam, reviewing outside data, placing orders, documenting exam and treatment plan, and counseling patient) on [DATE].
[2024-01-30] MEDS: ATORVASTATIN 20 MG TABLET 80 MG PO (21:03)
[2024-01-30] MEDS: LORazepam 0.5 MG TABLET PO (22:17)
[2024-01-31] VITALS (14 sets, daily range): BP systolic 125–190; BP diastolic 40–72; PULSE 60–94; RESP 16–20; TEMP 35.7–36.5; O2SAT 92–100
[2024-01-31] MEDS: AZITHROMYCIN 500 MG in DEXTROSE 5% IN WATER 250 ML 250 MG IV (00:16)
[2024-01-31] MEDS: FUROSEMIDE 40 MG/4 ML VIAL IV ×2 (00:16→12:01)
[2024-01-31] MEDS: HYDRALAZINE 20 MG/ML VIAL 10 MG IV ×2 (00:34→16:52)
[2024-01-31 06:08] LABS: Alanine Aminotransferase 12 IU/L (<35); Albumin 3.9 g/dL (3.5-5.0); Albumin Globulin Ratio 1.5 (1.0-2.8); Alkaline Phosphatase 51 U/L (38-126); Aspartate Aminotransferase 25 IU/L (14-36); BUN Creatinine Ratio 44.1 (6-22); Bilirubin Total 0.5 mg/dL (0.2-1.3); Blood Urea Nitrogen 45 mg/dL (7-17); Calcium 9.1 mg/dL (8.4-10.2); Carbon Dioxide 32 mmol/L (22-32); Chloride 93 mmol/L (98-107); Estimated Glomerular Filt Rate 54 mL/min (>60); Globulin 2.6 g/dL (1.7-4.1); Glucose 199 mg/dL (80-110); HEMOLYSIS < 15 (0-50); Magnesium 2.2 mg/dL (1.6-2.3); Potassium 3.1 mmol/L (3.4-5.1); Sodium 134 mmol/L (137-145); Total Protein 6.5 g/dL (6.3-8.2)
[2024-01-31 06:55] LABS: Add Manual Diff / Slide Review NO; Basophils Absolute Auto 0 /uL (0-100); Basophils Percent Auto 0.1 % (0-2); Eosinophils Absolute Auto 0 /uL (0-450); Eosinophils Percent Auto 0.1 % (2-4); Hematocrit 36.3 % (36-46); Hemoglobin 11.8 g/dL (12.0-16.0); Lymphocytes Absolute Auto 2400 /uL (1100-4500); Lymphocytes Percent Auto 19.5 % (25-40); Mean Corpuscular HGB Conc 32.5 % (30-36); Mean Corpuscular Hemoglobin 23.7 PG (26-34); Mean Corpuscular Volume 72.9 fL (80-100); Monocytes Absolute Auto 1200 /uL (0-900); Monocytes Percent Auto 9.9 % (3-14); Neutrophils Absolute Auto 8800 /uL (1500-7000); Neutrophils Percent Auto 70.4 % (50-75); Platelet Count 263 X10^3/uL (150-400); Red Blood Cell Count 4.97 X10^6/uL (4.0-5.2); Red Cell Distribution Width 20.8 % (11.6-14.8); White Blood Cell Count 12.4 X10^3/uL (4.5-11.0)
[2024-01-31] MEDS: INSULIN GLARGINE 100 UNIT/ML 3ML PEN 10 UNIT SUBCUT (08:05)
[2024-01-31] MEDS: INSULIN LISPRO 100 UNIT/ML 3ML VIAL SUBCUT ×4 (08:05→20:59)
[2024-01-31] MEDS: ENOXAPARIN 40 MG/0.4 ML SYRINGE SUBCUT ×2 (08:07→20:58)
[2024-01-31] MEDS: METOPROLOL IR 25 MG TABLET 12.5 MG PO ×2 (08:08→20:59)
[2024-01-31] MEDS: predniSONE 20 MG TABLET 60 MG PO (08:08)
[2024-01-31] MEDS: PANTOPRAZOLE DR 40 MG TABLET PO (08:08)
[2024-01-31] MEDS: guaiFENesin ER 600 MG TAB PO ×2 (08:08→20:59)
[2024-01-31] MEDS: ACETAMINOPHEN 325 MG TABLET 650 MG PO ×3 (08:08→20:58)
[2024-01-31] MEDS: ESCITALOPRAM 10 MG TABLET 20 MG PO (08:08)
[2024-01-31] MEDS: ASPIRIN EC 81 MG TABLET PO (08:08)
[2024-01-31 08:16] LABS: Anisocytosis 1+; Microcytosis 1+
[2024-01-31] MEDS: ALBUTEROL/IPRATROPIUM 3 ML AMPUL INH ×2 (09:12→18:50)
[2024-01-31] MEDS: BUDESONIDE 0.5 MG/2 ML NEB INH ×2 (09:13→18:51)
--- NOTE | 2024-01-31 11:38 | PT.IPTN ---
Current Diagnoses Pneumonia, unspecified organism (01/25/24) Physical Therapy Treatment Note M2 PT-IP Current Condition Start: 01/29/24 10:38 Freq: NEEDED Status: Active Protocol: Document 01/29/24 11:36 MB (Rec: 01/29/24 12:28 MB [id number]) Physical Therapy Current Condition Current Condition Evaluation Date 01/29/24 Treatment Diagnosis Coughing and wheezing M3 PT-IP Subjective Start: 01/29/24 10:38 Freq: NEEDED Status: Active Protocol: Document 01/31/24 13:14 TS (Rec: 01/31/24 13:27 TS [id number]) Subjective Physical Therapy Visit Type Type Treatment Note Visit Start Time 11:38 Visit Stop Time 12:02 Number of FURNISHINGS CONSERVATOR Visits 2 Physical Therapy Visit Comments Patient Comments Pt continues to report feeling weak, she is agreeable to PT. M4 PT-IP Mobility and Gait Start: 01/29/24 10:38 Freq: NEEDED Status: Active Protocol: Document 01/31/24 13:14 TS (Rec: 01/31/24 13:27 TS [id number]) PT-Bed Mobility Assessment Supine to Sit Supine to Sit Standby Assistance Scooting Scooting to Edge of Bed Standby Assistance PT-Transfer Assessment Sit to and From Stand Sit to and from Stand Standby Assistance Equipment Transfer Assistive Device Gait Belt,Front Wheeled Walker Orthotic/Prosthetic Devices or Brace: No Comments Mobility Comments Pt found resting in bed on 2. 5L's of o2. She performs heel slides, ankle pumps and SLR. Supine to sit SBA with HOB elevated, pt reports a headache sitting EOB. STS with FWW SBA, pt is slow to stand. She ambulated ~50'SBA with a slow step thru gait, pt has some SOB and fatigues quickly. Pt sat in chair, all needs met. Gait Assessment Gait Gait Assistance Required: Standby Assistance Distance (Feet) 50 Assistive Devices Assistive Device Gait Belt,Front Wheeled Walker Orthotic/Prosthetic Devices or Brace: No Gait Deviations General Gait Pattern Decreased Feet Clearance, Flexed Trunk,Wide Based Gait Factors Limiting Gait Function Factors Limiting Gait Function Decreased Activity Tolerance, Decreased Sensation,Decreased Strength,Pain,Poor Balance, Poor Safety Awareness PT-Balance Assessment Sitting Balance and Reactions Static Sitting Balance Ability Good Dynamic Sitting Balance Ability Good Standing Balance and Reactions Static Standing Balance Ability Good Dynamic Standing Balance Ability Good Device Used FWW M5 PT-IP Objective Assessments Start: 01/29/24 10:38 Freq: NEEDED Status: Active Protocol: Document 01/29/24 11:36 MB (Rec: 01/29/24 12:28 MB [id number]) Orientation Orientation/Cognition Level of Alertness Alert Orientation Name,Age,Birthday,Month,Date, Year,Day of Week,Place, Situation Language Function Ability No Deficits Noted Safety Awareness Understands Safety Issues Memory Description No Deficits Noted Gross Range of Motion Upper Extremity ROM Impairments Defer to OT and more restrictions in left shoulder Lower Extremity ROM Assessment Right Impaired Impairments Decreased right ankle movement and ankle with ecchymosis laterally Strength Lower Extremity Strength Assessment Bilaterally Impaired Knee R knee flexion and extension 4 /5; left knee flexion and extension 4+/5 Ankle R ankle DF 3/5, left 4/5; right great toe extension 3-/5 and left 4/5 Coordination Assessment Gross Coordination Gross Coordination Impaired Sensation Assessment Sensation Sensation Description Numbness Comments Sensation Comments Decreased sensation B LEs Muscle Tone Muscle Tone WNL Yes M6 PT-IP Treatment Start: 01/29/24 10:38 Freq: NEEDED Status: Active Protocol: Document 01/31/24 13:14 TS (Rec: 01/31/24 13:27 TS [id number]) Physical Therapy Treatment Exercises Exercises Ankle Pumps,Heel Slides, Straight Leg Raises Education Education Provided Safety M7 PT-IP Assessment and Plan Start: 01/29/24 10:38 Freq: NEEDED Status: Active Protocol: Document 01/31/24 13:14 TS (Rec: 01/31/24 13:27 [id number]) PT Summary Assessment and Plan Potential Rehabilitation Potential Fair Summary Impairments Pain,ROM,Strength,Balance, Coordination,Sensation,Bed Mobility,Transfers,Gait, Activity Tolerance Progress Towards Goals Slow Progress due to Activity Tolerance Assessment Summary Lida continues to make slow progress with her mobility due to low activity tolerance. She continues to be SBA for all bed mobility. She progressed her gait to ~50'SBA with FWW. She continues to fatigue quickly when up on her feet and has some SOB. PT continues to recommend home with assist and HHPT. Goals Bed Mobility Goal Independent Transfer Goal Independent,Front Wheeled Walker,Four Wheeled Walker Gait Goal Independent,Front Wheel Walker ,Four Wheel Walker Gait Distance 50 Other Goals Pt will ascend and descend 4 steps with two rails and no more than CGA to allow safe home entrance. Days to Meet Goals 5 Frequency of Treatment Frequency Of Treatment Once a Day Treatment Plan Physical Therapy Treatment Plan Bed Mobility Training,Transfer Training,Gait Training, Therapeutic Exercise,Balance Retraining,Discharge Planning, Hot or Cold Pack,Neuromuscular Re-ed,Coordination Retraining ,Manual Therapy Precautions Other Precautions O2 Weight Bearing Status Allowed Weight Bearing Amount (enter % No WB restrictions or #) (%) Recommendations To Nursing Amount of Assist Needed 1 Person Assist Discharge Recommendations PT Discharge Recommendations Home with Assistance,Home Health Transportation Needs at Discharge Private Vehicle
[2024-01-31] MEDS: POTASSIUM CHLORIDE 20 MEQ TAB 40 MEQ PO ×2 (11:59→16:52)
--- NOTE | 2024-01-31 14:00 | P.PN_ITS ---
Subjective Subjective Interval history: 88-year-old female, admitted with exacerbation of interstitial lung disease vs PNA vs CHF exacerbation. S: Her breathing feels about the same today. sputum sample ordered but none has been able to come up she states. She does feel extremely fatigued. No nausea. She was still has a reactive cough if she takes a deep breath or breathes out too quickly. No fevers. Exam Vital Signs (past 8 hours): - 01/31/24 07:00 01/31/24 08:00 01/31/24 09:16 Temperature 96.6 F L Pulse Rate 74 Respiratory Rate 16 Blood Pressure 184/67 H Pulse Oximetry 100 93 Oxygen Delivery Method Nasal Cannula Nasal Cannula Oxygen Flow Rate 2 2 Fraction of Inspired Oxygen 28 01/31/24 09:32 01/31/24 11:44 Temperature 97.6 F Pulse Rate 60 72 Respiratory Rate 16 Blood Pressure 125/40 L 175/68 H Pulse Oximetry 97 Oxygen Delivery Method Oxygen Flow Rate 2 Fraction of Inspired Oxygen Fraction of Inspired Oxygen 28 SaO2/FiO2 Ratio 332 Oxygen Delivery Method Nasal Cannula Oxygen Flow Rate 2 Narrative Exam Narrative: NAD, alert and oriented. Fluent speech. Oral thrush with some posterior pharyngeal white exudates. Lungs are clear, normal rate and effort. Dry crackles in the posterior bases, minimal expiratory wheezing. Heart is regular, no murmur gallop or rub. Abdomen is soft, non distended. Extremities are free of edema. Objective Labs 01/31/24 04:50 01/31/24 04:50 Labs: Laboratory Results - last 24 hr 01/31/24 04:50 WBC 12.4 H RBC 4.97 Hgb 11.8 L Hct 36.3 MCV 72.9 L MCH 23.7 L MCHC 32.5 RDW 20.8 H Plt Count 263 Neut % (Auto) 70.4 Lymph % (Auto) 19.5 L [place] % (Auto) 9.9 Eos % (Auto) 0.1 L Baso % (Auto) 0.1 Neut # (Auto) 8800 H Lymph # (Auto) 2400 [place] # (Auto) 1200 H Eos # (Auto) 0 Baso # (Auto) 0 RBC Morphology See below Anisocytosis 1+ H Microcytosis 1+ H Sodium 134 L Potassium 3.1 L Chloride 93 L Carbon Dioxide 32 BUN 45 H Creatinine 1.02 Estimated GFR 54 L BUN/Creatinine Ratio 44.1 H Glucose 199 H Calcium 9.1 Magnesium 2.2 Total Bilirubin 0.5 AST 25 ALT 12 Alkaline Phosphatase 51 Total Protein 6.5 Albumin 3.9 Globulin 2.6 Albumin/Globulin Ratio 1.5 PFSH Medical History Skin cancer NSTEMI (non-ST elevated myocardial infarction) Diastolic heart failure Cardiac arrest Chest pain Hypertension Hyperlipidemia Coronary artery disease Left hamstring muscle strain UTI (urinary tract infection) Surgical History H/O right heart catheterization History of breast implant removal History of breast surgery History of appendectomy History of cholecystectomy History of total abdominal hysterectomy History of coronary artery stent placement Family History Father Hypertension Diabetes mellitus Mother Hypertension PA (myocardial infarction) Sister PA (myocardial infarction) S/P CABG x 4 Social History household members: children Smoking Status: Never smoker Assessment & Plan Assessment & Plan narrative: 1. Possible atypical bacterial pneumonia. Continue antibiotics. 2. Interstitial lung disease exacerbation. Continue Solumedrol and nebs. 3. Acute on chronic respiratory failure with hypoxemia. Continue to treat above and wean down O2 as able. 4. Anasarca, present on admission and active. Diuresing. 5. HTN. Monitor BP . 6. NIDDM. Hold home medications. Glucose now 100s. Monitor for now and treat with SQ insulin. 7. HLD. Resume home Statin. 8. CAD s/p stents. Denies any chest pain trop and EKG normal. 9. Acute on chronic diastolic heart failure, present on admission and active 10. Thrush PLAN: -continue Abx (5 day course), consider additional days if WBC continuing to rise or alternative therapy depending on sputum culture results. -reduced steroids to prednisone 60 mg daily for possible ILD exacerbation. Outpatient pulmonary referral. Was also previously on Advair (?) , added back formulary alternative nebulizer therapies. RT evaluation and treatment. -Continue diuresis with BID furosemide -PT/OT consults, recommended SNF but patient refuses. Will discharge home with home health hopefully tomorrow. -TTE with normal EF and mild aortic stenosis. -follow up sputum culture ordered yesterday but none sent thus far. -WBC 12.4 -start diflucan for candidiasis and presumed esophagitis, 400 mg today, 200 mg daily for 14 days. Likely discharge home with home health tomorrow. Time-Based Coding :: [TOTAL MINUTES] spent with patient and on the chart (including review of chart, obtaining history, exam, reviewing outside data, placing orders, documenting exam and treatment plan, and counseling patient) on [DATE].
[2024-01-31] MEDS: FLUCONAZOLE 100 MG TABLET 400 MG PO (14:30)
[2024-01-31] MEDS: LORazepam 0.5 MG TABLET PO ×2 (14:35→20:58)
[2024-01-31] MEDS: AMOXICILLIN/CLAV 875/125 MG 1 TAB PO (20:59)
[2024-01-31] MEDS: ATORVASTATIN 20 MG TABLET 80 MG PO (20:59)
[2024-02-01] MEDS: FUROSEMIDE 40 MG/4 ML VIAL IV ×2 (00:19→12:16)
[2024-02-01 02:00] VITALS: BP 161/58; PULSE 84; RESP 18; TEMP 36.4; O2SAT 97
[2024-02-01 05:11] LABS: Add Manual Diff / Slide Review NO; Basophils Absolute Auto 100 /uL (0-100); Basophils Percent Auto 0.5 % (0-2); Eosinophils Absolute Auto 0 /uL (0-450); Eosinophils Percent Auto 0.3 % (2-4); Hematocrit 35.4 % (36-46); Hemoglobin 11.4 g/dL (12.0-16.0); Lymphocytes Absolute Auto 2100 /uL (1100-4500); Lymphocytes Percent Auto 15.6 % (25-40); Mean Corpuscular HGB Conc 32.3 % (30-36); Mean Corpuscular Hemoglobin 23.7 PG (26-34); Mean Corpuscular Volume 73.4 fL (80-100); Monocytes Absolute Auto 1000 /uL (0-900); Monocytes Percent Auto 7.4 % (3-14); Neutrophils Absolute Auto 10200 /uL (1500-7000); Neutrophils Percent Auto 76.2 % (50-75); Platelet Count 238 X10^3/uL (150-400); Red Blood Cell Count 4.82 X10^6/uL (4.0-5.2); Red Cell Distribution Width 20.8 % (11.6-14.8); White Blood Cell Count 13.4 X10^3/uL (4.5-11.0)
[2024-02-01 05:35] LABS: Anisocytosis 1+; Microcytosis 1+
[2024-02-01 05:49] LABS: Alanine Aminotransferase 11 IU/L (<35); Albumin 3.6 g/dL (3.5-5.0); Albumin Globulin Ratio 1.3 (1.0-2.8); Alkaline Phosphatase 42 U/L (38-126); Aspartate Aminotransferase 21 IU/L (14-36); Bilirubin Total 0.5 mg/dL (0.2-1.3); Blood Urea Nitrogen 48 mg/dL (7-17); Calcium 9.4 mg/dL (8.4-10.2); Carbon Dioxide 34 mmol/L (22-32); Chloride 93 mmol/L (98-107); Estimated Glomerular Filt Rate 56 mL/min (>60); Globulin 2.8 g/dL (1.7-4.1); Glucose 206 mg/dL (80-110); HEMOLYSIS < 15 (0-50); Magnesium 2.2 mg/dL (1.6-2.3); Potassium 4.2 mmol/L (3.4-5.1); Sodium 132 mmol/L (137-145); Total Protein 6.4 g/dL (6.3-8.2)
[2024-02-01 06:00] VITALS: BP 169/60; PULSE 63; RESP 20; TEMP 35.9; O2SAT 99
[2024-02-01 07:52] VITALS: BP 184/62; PULSE 60; RESP 16; TEMP 36.1; O2SAT 99
[2024-02-01] MEDS: predniSONE 20 MG TABLET 60 MG PO (08:28)
[2024-02-01] MEDS: FLUCONAZOLE 100 MG TABLET 200 MG PO (08:28)
[2024-02-01] MEDS: ASPIRIN EC 81 MG TABLET PO (08:28)
[2024-02-01] MEDS: guaiFENesin ER 600 MG TAB PO (08:28)
[2024-02-01] MEDS: AMOXICILLIN/CLAV 875/125 MG 1 TAB PO (08:29)
[2024-02-01] MEDS: METOPROLOL IR 25 MG TABLET 12.5 MG PO (08:29)
[2024-02-01] MEDS: ENOXAPARIN 40 MG/0.4 ML SYRINGE SUBCUT (08:30)
[2024-02-01] MEDS: ESCITALOPRAM 10 MG TABLET 20 MG PO (08:30)
[2024-02-01] MEDS: PANTOPRAZOLE DR 40 MG TABLET PO (08:30)
--- NOTE | 2024-02-01 08:30 | PM.DS.1 ---
History of Present Illness History of Present Illness Date Patient Seen: 02/01/24 Time Patient Seen: 08:30 Chief complaint: bad cough, wheezing, chest tightness Narrative: Per admitting provider, 88 year old female with past medical history of CAD s/p stents, CHF, COPD/interstitial lung disease on 2L of O2 at baseline, HTN, HLD and depression presents with coughing, wheezing, and generalized body aches. Per the patient's report, the patient started to have these symptoms over the last few weeks. The patient however started to noticed increasing LE edema over the last few days with shortness of breath. The patient however denies any chills, fever, nausea, vomiting or diarrhea. The patient was seen last week and was given Doxyclcin for possible pneumonia as outpatient. Despite completing this antibiotics yesterday, the patient continue to have and productive cough. In our ER, the patient was hemodynamically stable but did require 4L of O2 per NC. Patient labs were relatively benign except for BNP in the 700s (baseline 400s). The patient also has CXR that shows possible edema vs atypical pneumonia. The patient was given IV Lasix 40mg x 1 as well as Azithromycin. IV solu-medrol and Nebs were also given. Discharge Providers Provider Date of admission: 01/25/24 23:11 Discharge Date: 02/01/24 Primary care physician: Zoe Bass PA-C Consults: 01/28/24 14:22 Consult to Physical Therapy Evaluate & Treat Comment: Physician Instructions: Evaluate and Treat 01/28/24 14:23 Consult to Occupational Therapy Evaluate & Treat Comment: Physician Instructions: Evaluate and treat 01/29/24 15:24 Consult to Home Health Routine Comment: Reason For Exam: RN/PT/OT Discharge provider: Krunal Maldonado DO Summary Hospital Course Discharge Diagnosis: 1. Possible atypical bacterial pneumonia. Continue antibiotics. 2. Interstitial lung disease exacerbation. Continue Solumedrol and nebs. 3. Acute on chronic respiratory failure with hypoxemia. Continue to treat above and wean down O2 as able. 4. Anasarca, present on admission and active. Diuresing. 5. HTN. Monitor BP . 6. NIDDM. Hold home medications. Glucose now 100s. Monitor for now and treat with SQ insulin. 7. HLD. Resume home Statin. 8. CAD s/p stents. Denies any chest pain trop and EKG normal. 9. Acute on chronic diastolic heart failure, present on admission and active 10. Thrush PLAN: -continue Abx (5 day course), consider additional days if WBC continuing to rise or alternative therapy depending on sputum culture results. -reduced steroids to prednisone 60 mg daily for possible ILD exacerbation. Outpatient pulmonary referral. Was also previously on Advair (?) , added back formulary alternative nebulizer therapies. RT evaluation and treatment. -Continue diuresis with BID furosemide -PT/OT consults, recommended SNF but patient refuses. Will discharge home with home health hopefully tomorrow. -TTE with normal EF and mild aortic stenosis. -follow up sputum culture ordered yesterday but none sent thus far. -WBC 12.4 -start diflucan for candidiasis and presumed esophagitis, 400 mg today, 200 mg daily for 14 days. Hospital Course: This is an 88-year-old female with a past medical history of interstitial lung disease, chronic respiratory failure, and multiple other medical problems who was admitted with shortness of breath and acute on chronic respiratory with hypoxia. The etiology for respiratory failure could not quite be determined, as she was treated with antibiotics, prednisone for possible ILD exacerbation and was diuresed for just as possible acute on chronic diastolic heart failure. She was evaluated by Physical therapy and recommended for a residential facility, but the patient refused. She continued to with cough, intermittently productive. She did have some mild improvement with resumption of scheduled nebulizer treatments, and she did report prior use of Advair which had not been restarted since her COVID infection a few years ago. Over the course of her hospital stay, a sputum culture was able to be sent, but results are currently pending at the time of discharge. She appeared to be euvolemic discharge so she was continued on her home furosemide dosing discharge. Echocardiogram showed no significant changes compared to prior studies with a normal EF and mild aortic stenosis. She was also treated with ceftriaxone and azithromycin while in the hospital, and will complete antibiotic course with another 4 days of Augmentin at home. On the day prior to discharge, she developed oral thrush, which appeared to extend into her pharynx, and while esophagitis could not be confirmed she was treated with oral fluconazole for presumed esophagitis. Her blood sugars were elevated prednisone therapy, history of interstitial lung disease she was treated as a possible ILD flare with 60 mg of steroids. She was started on a taper at the time of discharge. She will continue 40 mg for 1 week, and each subsequently taper by 10 mg for a 4 week total course. I did place a referral to pulmonology as well, and sent the patient a prescription to restart her Advair in addition to her home nebulizer therapies. With regards to her blood sugars, this should improve with the resumption of her home Jardiance which was held during her stay. She was prescribed a glucometer and told if her glucose was consistently above 200 to start 5 units of Lantus at night, but to re-evaluate subsequent drop in her prednisone dose. Prompt follow-up with primary care provider is recommended. Time Spent with Patient Time spent: Greater than 30 minutes Exam Vital Signs (past 8 hours): - 02/01/24 02:00 02/01/24 06:00 02/01/24 07:52 Temperature 97.6 F 96.7 F L 96.9 F L Pulse Rate 84 63 60 Respiratory Rate 18 20 16 Blood Pressure 161/58 H 169/60 H 184/62 H Pulse Oximetry 97 99 99 Oxygen Flow Rate 2 2 Fraction of Inspired Oxygen 32 SaO2/FiO2 Ratio 300 Oxygen Delivery Method Nasal Cannula Oxygen Flow Rate 2 Objective Labs 02/01/24 04:40 02/01/24 04:40 Labs: Laboratory Results - last 24 hr 02/01/24 04:40 WBC 13.4 H RBC 4.82 Hgb 11.4 L Hct 35.4 L MCV 73.4 L MCH 23.7 L MCHC 32.3 RDW 20.8 H Plt Count 238 Neut % (Auto) 76.2 H Lymph % (Auto) 15.6 L [place] % (Auto) 7.4 Eos % (Auto) 0.3 L Baso % (Auto) 0.5 Neut # (Auto) 44271 H Lymph # (Auto) 2100 [place] # (Auto) 1000 H Eos # (Auto) 0 Baso # (Auto) 100 RBC Morphology Not Reportable Anisocytosis 1+ H Microcytosis 1+ H Sodium 132 L Potassium 4.2 Chloride 93 L Carbon Dioxide 34 H BUN 48 H Creatinine 0.98 Estimated GFR 56 L BUN/Creatinine Ratio 49.0 H Glucose 206 H Calcium 9.4 Magnesium 2.2 Total Bilirubin 0.5 AST 21 ALT 11 Alkaline Phosphatase 42 Total Protein 6.4 Albumin 3.6 Globulin 2.8 Albumin/Globulin Ratio 1.3 PFSH Medical History (Updated 02/01/24 @ 19:10 by Krunal Maldonado DO) Chronic respiratory failure with hypoxia Skin cancer NSTEMI (non-ST elevated myocardial infarction) Diastolic heart failure Cardiac arrest Chest pain Hypertension Hyperlipidemia Coronary artery disease Left hamstring muscle strain UTI (urinary tract infection) Surgical History H/O right heart catheterization History of breast implant removal History of breast surgery History of appendectomy History of cholecystectomy History of total abdominal hysterectomy History of coronary artery stent placement Family History Father Hypertension Diabetes mellitus Mother Hypertension MA (myocardial infarction) Sister MA (myocardial infarction) S/P CABG x 4 Social History household members: children Smoking Status: Never smoker Discharge Plan Discharge Plan Patient Disposition: Home Provider Discharge Comment: You were admitted to the hospital with shortness of breath. Unclear if this was due to fluid overload/heart failure, ILD flare, or pneumonia. Treated for all the above. Your blood sugars are a bit high with the steroids. While on steroid taper, I've sent a meter and test strip prescription to your pharmacy. If your blood sugars are >200 at home, start 5U of lantus. This is unlikely to happen with Jardiance. 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 Complete steroid taper, antibiotics, and antifungals at home. Discharge orders & Medications Prescriptions: New amoxicillin-pot clavulanate 875-125 mg Tablet 1 tab PO BID 4 Days Qty: 8 0RF fluconazole 200 mg tablet 200 mg PO DAILY 12 Days Qty: 12 0RF prednisone 10 mg tablet 10 mg PO DIRECTED Qty: 70 0RF Rx Instructions: Take 40 mg daily for 1 week, 30 mg daily for 1 week, 20 mg daily for 1 week, 10 mg daily for 1 week then stop insulin glargine 100 unit/mL (3 mL) insulin pen 5 unit SUBCUT DAILY 30 Days Qty: 3 0RF (DME) pen needle, diabetic [Pen Needle] 31 gauge x 3/16 needle See Rx Instructions .Route Qty: 100 0RF Rx Instructions: Once daily with insulin pen needle (DME) blood-glucose meter [Blood Glucose Monitoring] Kit See Rx Instructions .Route Qty: 1 0RF Rx Instructions: One blood glucose meter (DME) Blood Glucose Test Strip See Rx Instructions .Route Qty: 100 0RF Rx Instructions: Check glucose 3-4 times daily, in AM and before meals fluticasone propion-salmeterol [Advair Diskus] 250-50 mcg/dose blister with device 1 inh inhalation BID 30 Days Qty: 60 0RF Continued aspirin 81 MG tablet,delayed release (DR/EC) 81 mg PO DAILY Qty: 0 pantoprazole 40 mg Tablet,Delayed Release (Dr/Ec) 40 mg PO DAILY escitalopram oxalate 20 mg Tablet 20 mg PO DAILY furosemide 20 mg tablet 10 mg PO DAILY Jardiance 10 mg tablet 10 mg PO DAILY metoprolol tartrate 25 mg tablet 12.5 mg PO BID nitroglycerin 0.4 mg tablet, sublingual 1 tab sublingual [id number] PRN (Reason: Chest Pain) Patient Comments: take it when needed, last dose unknown rosuvastatin 40 mg tablet 40 mg PO QPM Follow up/Referrals: Zoe Bass PA-C [Primary Care Provider] - Other Ambulatory Orders: Referral to: (Schedule) Timeframe: 1 Week Location: Determined by Patient Ordered By: Krunal Maldonado Diet/Activity/Treatments Diet: Diet as Tolerated and Carb-consistent/Diabetic Activity: As tolerated, no restrictions Oxygen: Supplemental O2 to get O2 90-96%. Visit Report/Discharge Packet Instructions: DI for Heart Failure, How to Prevent Falls Stand Alone Forms: Patient Portal/API, Stroke Signs & Symptoms Discharge Data Primary Care Provider: Zoe Bass
[2024-02-01] MEDS: ALBUTEROL/IPRATROPIUM 3 ML AMPUL INH ×2 (09:40→14:11)
[2024-02-01] MEDS: BUDESONIDE 0.5 MG/2 ML NEB INH (09:40)
[2024-02-01 09:42] VITALS: O2SAT 99
[2024-02-01 11:00] VITALS: BP 179/53; PULSE 71; RESP 16; TEMP 36.4; O2SAT 98
[2024-02-01] MEDS: INSULIN LISPRO 100 UNIT/ML 3ML VIAL SUBCUT (12:16)
--- NOTE | 2024-02-01 14:09 | PT.IPTN ---
Current Diagnoses Pneumonia, unspecified organism (01/25/24) Hyperglycemia, unspecified (01/25/24) Physical Therapy Treatment Note M2 PT-IP Current Condition Start: 01/29/24 10:38 Freq: NEEDED Status: Active Protocol: Document 01/29/24 11:36 MB (Rec: 01/29/24 12:28 MB [id number]) Physical Therapy Current Condition Current Condition Evaluation Date 01/29/24 Treatment Diagnosis Coughing and wheezing M3 PT-IP Subjective Start: 01/29/24 10:38 Freq: NEEDED Status: Active Protocol: Document 02/01/24 14:32 TS (Rec: 02/01/24 14:39 TS [id number]) Subjective Physical Therapy Visit Type Type Treatment Note Visit Start Time 14:09 Visit Stop Time 14:28 Number of CVIR TECH Visits 3 Physical Therapy Visit Comments Patient Comments Pt found asleep, alert when awakened. She is agreeable to PT. M4 PT-IP Mobility and Gait Start: 01/29/24 10:38 Freq: NEEDED Status: Active Protocol: Document 02/01/24 14:32 TS (Rec: 02/01/24 14:39 TS [id number]) PT-Bed Mobility Assessment Supine to Sit Supine to Sit Standby Assistance Scooting Scooting to Edge of Bed Standby Assistance PT-Transfer Assessment Sit to and From Stand Sit to and from Stand Standby Assistance Equipment Transfer Assistive Device Gait Belt,Front Wheeled Walker Orthotic/Prosthetic Devices or Brace: No Comments Mobility Comments Supine to sit SBA with BUE support from flat bed. STS with FWW SBA, pt is slow to stand. She ambulates ~20'SBA with FWW, stops for stadning rest breaks. She was left sitting in chair, daughter in the room. Gait Assessment Gait Gait Assistance Required: Standby Assistance Distance (Feet) 20 Assistive Devices Assistive Device Gait Belt,Front Wheeled Walker Orthotic/Prosthetic Devices or Brace: No Gait Deviations General Gait Pattern Decreased Feet Clearance, Flexed Trunk,Wide Based Gait Factors Limiting Gait Function Factors Limiting Gait Function Decreased Activity Tolerance, Decreased Sensation,Decreased Strength,Pain,Poor Balance, Poor Safety Awareness PT-Balance Assessment Sitting Balance and Reactions Static Sitting Balance Ability Good Dynamic Sitting Balance Ability Good Standing Balance and Reactions Static Standing Balance Ability Good Dynamic Standing Balance Ability Good Device Used FWW M5 PT-IP Objective Assessments Start: 01/29/24 10:38 Freq: NEEDED Status: Active Protocol: Document 01/29/24 11:36 MB (Rec: 01/29/24 12:28 MB [id number]) Orientation Orientation/Cognition Level of Alertness Alert Orientation Name,Age,Birthday,Month,Date, Year,Day of Week,Place, Situation Language Function Ability No Deficits Noted Safety Awareness Understands Safety Issues Memory Description No Deficits Noted Gross Range of Motion Upper Extremity ROM Impairments Defer to OT and more restrictions in left shoulder Lower Extremity ROM Assessment Right Impaired Impairments Decreased right ankle movement and ankle with ecchymosis laterally Strength Lower Extremity Strength Assessment Bilaterally Impaired Knee R knee flexion and extension 4 /5; left knee flexion and extension 4+/5 Ankle R ankle DF 3/5, left 4/5; right great toe extension 3-/5 and left 4/5 Coordination Assessment Gross Coordination Gross Coordination Impaired Sensation Assessment Sensation Sensation Description Numbness Comments Sensation Comments Decreased sensation B LEs Muscle Tone Muscle Tone WNL Yes M6 PT-IP Treatment Start: 01/29/24 10:38 Freq: NEEDED Status: Active Protocol: Document 02/01/24 14:32 TS (Rec: 02/01/24 14:39 TS [id number]) Physical Therapy Treatment Education Education Provided Safety M7 PT-IP Assessment and Plan Start: 01/29/24 10:38 Freq: NEEDED Status: Active Protocol: Document 02/01/24 14:32 TS (Rec: 02/01/24 14:39 TS [id number]) PT Summary Assessment and Plan Potential Rehabilitation Potential Fair Summary Impairments Pain,ROM,Strength,Balance, Coordination,Sensation,Bed Mobility,Transfers,Gait, Activity Tolerance Progress Towards Goals Slow Progress due to Activity Tolerance Assessment Summary Lida is making slow progress with her mobility. She continues to fatigue quickly with mobility and have poor activity tolerance. PT continues to recommend home with assist and HHPT. Goals Bed Mobility Goal Independent Transfer Goal Independent,Front Wheeled Walker,Four Wheeled Walker Gait Goal Independent,Front Wheel Walker ,Four Wheel Walker Gait Distance 50 Other Goals Pt will ascend and descend 4 steps with two rails and no more than CGA to allow safe home entrance. Days to Meet Goals 5 Frequency of Treatment Frequency Of Treatment Once a Day Treatment Plan Physical Therapy Treatment Plan Bed Mobility Training,Transfer Training,Gait Training, Therapeutic Exercise,Balance Retraining,Discharge Planning, Hot or Cold Pack,Neuromuscular Re-ed,Coordination Retraining ,Manual Therapy Precautions Other Precautions O2 Weight Bearing Status Allowed Weight Bearing Amount (enter % No WB restrictions or #) (%) Recommendations To Nursing Amount of Assist Needed Standby Assistance Discharge Recommendations PT Discharge Recommendations Home with Assistance,Home Health Transportation Needs at Discharge Private Vehicle
--- NOTE | 2024-02-01 14:29 | CM.DPC ---
DCP Discharge Home with HH Per MD, pt is medically stable to discharge home today with Home Health and family assist and no identified barriers to discharge. Per PT/OT, cleared pt for home with family assist and HH. Per RN, pt to d/c home this afternoon and no concerns noted. KUSHAL Mendoza kindly sent Stella pt's discharge summary, completed F2F and HH orders. Plan: Patient to d/c home today via family POV and new Stella to start after discharge. No further SW needs at this time. DONNELL Erickson
[2024-02-01 14:54] VITALS: PULSE 68; RESP 18; O2SAT 96
--- NOTE | 2024-02-01 16:42 | PC.NURSE ---
Pt and adult daughter agreeable to discharge plan. Education provided on stroke s/s, CHF fact sheet provided, fall prevention, and new medication education. IV discontinued. Pt attached to home O2 at discharge, wheeled via wheelchair to private vehicle with daughter and granddaughter at approximately 1635.
== END 2024-02-01 16:35 | disposition home health service (06) | DRG 196 ==
LOC: ED 19:45 → AC 23:12
PROVIDERS: Emergency Medicine; Hospitalist; Internal Medicine; Admitting Provider Internal Medicine; Emergency Provider Emergency Medicine; Family Provider Internal Medicine; PCP Physician Assistant Medical; Referring Provider Emergency Medicine; Visit Provider Internal Medicine
DX: J84.9 Interstitial pulmonary disease, unspecified (principal); I50.33 Acute on chronic diastolic (congestive) heart failure; J96.21 Acute and chronic respiratory failure with hypoxia; J15.9 Unspecified bacterial pneumonia; I25.10 Atherosclerotic heart disease of native coronary artery without angina pectoris; I11.0 Hypertensive heart disease with heart failure; E11.9 Type 2 diabetes mellitus without complications; E78.5 Hyperlipidemia, unspecified; B37.9 Candidiasis, unspecified; I35.0 Nonrheumatic aortic (valve) stenosis; Z95.5 Presence of coronary angioplasty implant and graft; Z99.81 Dependence on supplemental oxygen; Z79.84 Long term (current) use of oral hypoglycemic drugs
CPT/HCPCS: 36415; 71045; 71250; 80048; 80053; 82962; 83036; 83605; 83735; 83880; 84484; 85025; 85027; 85610; 87070; 87077; 87205; 87633; 93005; 93306; 94640; 94760; 94762; 96374; 96375; 97116; 97161; 97166; 97530; 97535; 99285; J0360; J0696; J1650; J1815; J1940; J2919

== ENCOUNTER 2024-05-26 09:53 | Emergency (ER) | payer MEDICARE, OTHER, SELFPAY ==
[2024-01-25 23:22] VITALS: BMI 42.5
[2024-05-26] VITALS (22 sets, daily range): BP systolic 152–207; BP diastolic 73–90; PULSE 66–76; RESP 16–29; TEMP 36.4; O2SAT 93–100; BMI 41.1
--- NOTE | 2024-05-26 09:56 | ED_ITS ---
HPI - General Adult General Chief complaint: Shortness of Breath/Dyspnea Stated complaint: feels terrible, SOB, chest tightness Time Seen by Provider: 05/26/24 09:55 History of Present Illness HPI narrative: 88-year-old woman with a history of coronary artery disease post stenting, congestive heart failure, COPD/interstitial lung disease on 2 L of oxygen at home, hypertension, hyperlipidemia who notes she went to urgent care about 3 weeks ago was told she had a viral infection, she did have a swab done at that time, felt like she was getting somewhat better in about a week ago clearly started getting worse again. She does not describe significant fevers, her usual oxygen at 2 L has been increased to 3 L over the last week. She describes dramatic fatigue no orthopnea, no vomiting or diarrhea. She describes pain in both arms, legs, lower abdomen. Related Data Home Medications Medication Instructions Recorded Confirmed aspirin 81 mg tablet,delayed 81 mg PO DAILY ##0 05/14/17 01/26/24 release nitroglycerin 0.4 mg sublingual 1 tab sublingual [id number] PRN Chest 11/18/18 01/26/24 tablet Pain rosuvastatin 40 mg tablet 40 mg PO QPM 11/18/18 01/26/24 escitalopram oxalate 20 mg tablet 20 mg PO DAILY 03/06/21 01/26/24 pantoprazole 40 mg tablet,delayed 40 mg PO DAILY 03/06/21 01/26/24 release furosemide 20 mg tablet 10 mg PO DAILY 01/11/23 01/26/24 empagliflozin 10 mg tablet 10 mg PO DAILY 01/14/23 01/26/24 (Jardiance) metoprolol tartrate 25 mg tablet 12.5 mg PO BID 01/31/24 01/31/24 Previous Rx's Medication Instructions Recorded blood sugar diagnostic (Blood #100 ea 02/01/24 Glucose Test strips) blood-glucose meter (Blood Glucose #1 ea 02/01/24 Monitoring kit) pen needle, diabetic 31 gauge x #100 ea 02/01/2407/28 (Pen Needle) prednisone 10 mg tablet 10 mg PO DIRECTED #70 tabs 02/01/24 cephalexin 500 mg capsule 500 mg PO TID #15 caps 05/26/24 Allergies Allergy/AdvReac Type Severity Reaction Status Date / Time ibuprofen [IBUPROFEN] Allergy Severe Rash Verified 02/09/23 18:38 Iodinated Contrast Media Allergy Severe Unconscious Verified 02/09/23 18:38 [IODINATED CONTRAST- ORAL AND IV DYE] morphine [MORPHINE] Allergy Severe Rash Verified 02/09/23 18:38 naproxen [From ALEVE] Allergy Severe Rash Verified 02/09/23 18:38 telmisartan [TELMISARTAN] Allergy Severe Rash Verified 02/09/23 18:38 Review of Systems Review of Systems Narrative: Pertinent positive and negative findings as per HPI Patient History Medical History (Updated 05/26/24 @ 14:56 by Bhumi Addison MD) Chronic respiratory failure with hypoxia Skin cancer NSTEMI (non-ST elevated myocardial infarction) Diastolic heart failure Cardiac arrest Chest pain Hypertension Hyperlipidemia Coronary artery disease Left hamstring muscle strain UTI (urinary tract infection) Surgical History H/O right heart catheterization History of breast implant removal History of breast surgery History of appendectomy History of cholecystectomy History of total abdominal hysterectomy History of coronary artery stent placement Family History Father Hypertension Diabetes mellitus Mother Hypertension [place] (myocardial infarction) Sister [place] (myocardial infarction) S/P CABG x 4 Social History household members: children Smoking Status: Never smoker Smoking Status: Never smoker alcohol intake frequency: holidays/special occasions only Exam Narrative Exam Narrative: General: Chronically ill-appearing slightly worse, not acutely toxic, dyspneic getting into bed and globally weak HEENT: Moist mucous membranes, normal sclera with reactive pupils, Neck: No JVD, supple Respiratory: Lungs diminished lung sounds throughout without significant rhonchi or wheezing. She does not have significant reproducible chest wall pain Cardiac: Regular rate and rhythm no murmurs no bruits Abdomen: Soft, nontender, good bowel tones, no flank pain Skin: Slightly pale but otherwise Warm and dry, no rashes Neurologic: Globally weak but otherwise Grossly neurologically intact with no obvious asymmetries or abnormalities Extremities: No trauma, chronic venous stasis changes with 1+ bilateral edema Psych: Cooperative, appropriate insight and affect Initial Vital Signs Initial Vital Signs: Vital Signs Pulse Rate 75 05/26/24 09:59 Pulse Oximetry 93 05/26/24 09:59 Course Orders Ordered: ED Orders 05/26/24 10:11 XR chest 1V Stat EKG-12 Lead Stat 05/26/24 10:15 Complete Blood Count AUTO DIFF Stat Comprehensive Metabolic Panel Stat Lactate (Lactic Acid) Stat Magnesium Stat NT-proBNP (BNP-Adult 18+) Stat Procalcitonin Stat Troponin & CK Cardiac Panel Stat Troponin I Stat 05/26/24 11:03 Blood Culture Stat 05/26/24 11:45 Covid-19 + FLU A/B + RSV - PCR Stat 05/26/24 11:50 Urinalysis and Microscopic Stat Urine Culture Stat 05/26/24 13:00 Respiratory Panel (Film Array) Stat Discontinued Medications Sodium Chloride (Normal Saline 0.9%) 1,000 mls @ 1,000 mls/hr IV BOLUS ONE Stop: 05/26/24 12:21 Last Infusion: 05/26/24 13:30 Dose: Infused Documented By: Admin: 05/26/24 11:36 Dose: 1,000 mls/hr Documented By: Ceftriaxone Sodium 2,000 mg/ (Sodium Chloride) 100 mls @ 200 mls/hr IV NOW ONE Stop: 05/26/24 12:19 Last Infusion: 05/26/24 13:30 Dose: Infused Documented By: Admin: 05/26/24 12:56 Dose: 200 mls/hr Documented By: CLYDE Vital Signs Vital signs: Vital Signs - 8 hr 05/26/24 09:59 05/26/24 10:00 05/26/24 10:00 Temperature Pulse Rate 75 76 Respiratory Rate Blood Pressure 152/73 H Pulse Oximetry 93 98 Oxygen Delivery Method Oxygen Flow Rate 05/26/24 10:03 05/26/24 10:30 05/26/24 11:00 Temperature 97.5 F L Pulse Rate 73 68 68 Respiratory Rate 16 16 19 Blood Pressure 152/73 H Pulse Oximetry 98 100 99 Oxygen Delivery Method Room Air Oxygen Flow Rate 05/26/24 11:30 05/26/24 11:31 05/26/24 11:31 Temperature Pulse Rate 66 66 Respiratory Rate 24 29 H Blood Pressure 205/81 H Pulse Oximetry 98 98 Oxygen Delivery Method Oxygen Flow Rate 05/26/24 12:00 05/26/24 12:01 05/26/24 12:01 Temperature Pulse Rate 72 71 Respiratory Rate Blood Pressure 207/82 H Pulse Oximetry 100 100 Oxygen Delivery Method Oxygen Flow Rate 05/26/24 12:30 05/26/24 12:31 05/26/24 12:31 Temperature Pulse Rate 68 69 Respiratory Rate Blood Pressure 183/78 H Pulse Oximetry 100 99 Oxygen Delivery Method Oxygen Flow Rate 05/26/24 13:00 05/26/24 13:01 05/26/24 13:01 Temperature Pulse Rate 72 73 Respiratory Rate Blood Pressure 205/88 H Pulse Oximetry 100 100 Oxygen Delivery Method Oxygen Flow Rate 05/26/24 13:30 05/26/24 13:31 05/26/24 13:31 Temperature Pulse Rate 74 72 Respiratory Rate Blood Pressure 177/90 H Pulse Oximetry 99 99 Oxygen Delivery Method Oxygen Flow Rate 05/26/24 14:00 05/26/24 14:01 05/26/24 14:01 Temperature Pulse Rate 69 69 Respiratory Rate Blood Pressure 184/77 H Pulse Oximetry 99 99 Oxygen Delivery Method Oxygen Flow Rate 05/26/24 14:30 05/26/24 14:31 05/26/24 14:31 Temperature Pulse Rate 71 71 Respiratory Rate Blood Pressure 195/81 H Pulse Oximetry 100 100 Oxygen Delivery Method Oxygen Flow Rate 05/26/24 15:00 05/26/24 15:01 05/26/24 15:01 Temperature Pulse Rate 68 69 Respiratory Rate Blood Pressure 164/73 H Pulse Oximetry 99 99 Oxygen Delivery Method Oxygen Flow Rate 05/26/24 15:15 Temperature Pulse Rate 69 Respiratory Rate 22 Blood Pressure 164/73 H Pulse Oximetry 99 Oxygen Delivery Method Nasal Cannula Oxygen Flow Rate 2 Medical Decision Making Lab Data 05/26/24 10:15 05/26/24 10:15 Labs: Lab Results 05/26/24 05/26/24 05/26/24 Range/Units 10:15 10:15 11:45 WBC 9.1 (4.5-11.0) X10^3/uL RBC 5.23 H (4.0-5.2) X10^6/uL Hgb 12.2 (12.0-16.0) g/dL Hct 38.4 (36-46) % MCV 73.6 L (80-100) fL MCH 23.3 L (26-34) PG MCHC 31.7 (30-36) % RDW 20.6 H (11.6-14.8) % Plt Count 271 (150-400) X10^3/uL Neut % (Auto) 67.6 (50-75) % Lymph % (Auto) 22.5 L (25-40) % [place]osh % (Auto) 7.5 (3-14) % Eos % (Auto) 1.7 L (2-4) % Baso % (Auto) 0.7 (0-2) % Neut # (Auto) 6200 (9895-0858) /uL Lymph # (Auto) 2100 (6147-8299) /uL [place] # (Auto) 700 (0-900) /uL Eos # (Auto) 200 (0-450) /uL Baso # (Auto) 100 (0-100) /uL RBC Morphology Not Reportable Anisocytosis 1+ H Sodium 136 L (137-145) mmol/L Potassium 4.4 (3.4-5.1) mmol/L Chloride 100 (98-107) mmol/L Carbon Dioxide 28 (22-32) mmol/L BUN 18 H (7-17) mg/dL Creatinine 0.97 (0.52-1.04) mg/dL Estimated GFR 57 L (>60) mL/min BUN/Creatinine Ratio 18.6 (6-22) Glucose 139 H (80-110) mg/dL Lactate 2.5 H (0.7-2.1) mmol/L Calcium 9.3 (8.4-10.2) mg/dL Magnesium 2.0 (1.6-2.3) mg/dL Total Bilirubin 0.7 (0.2-1.3) mg/dL AST 39 H (14-36) IU/L ALT 15 (<35) IU/L Alkaline Phosphatase 50 (38-126) U/L Total Creatine Kinase 65 (30-135) U/L Troponin I 0.015 0.015 (0.01-0.034) ng/mL NT-Pro-B Natriuret Pep 386 (<450) pg/mL Total Protein 7.4 (6.3-8.2) g/dL Albumin 4.4 (3.5-5.0) g/dL Globulin 3.0 (1.7-4.1) g/dL Albumin/Globulin Ratio 1.5 (1.0-2.8) Procalcitonin 0.047 (<0.5) ng/mL Urine Color Urine Appearance Urine pH (4.5-8.0) Ur Specific [place] (1.000-1.035) Urine Protein (Negative) Urine Glucose (UA) (Negative) g/dL Urine Ketones (NEGATIVE) Urine Occult Blood (Negative) Urine Nitrate (Negative) Urine Bilirubin (NEGATIVE) Urine Urobilinogen (0.2) E.U./dL Ur Leukocyte Esterase (NEGATIVE) Urine RBC (0-5/HPF) Urine WBC (0-5/HPF) Ur Squamous Epith Cells (0-5/HPF) Urine Bacteria (None) Ur Culture Indicated? Vol Urine Centrifuged Chlamy pneumoniae PCR (Not Detect) Adenovirus (PCR) (Not Detect) B. pertussis DNA (PCR) (Not Detect) B.parapertussis DNA PCR (Not Detecte) Coronavirus OC43 (PCR) (Not Detect) Coronavirus HKU1 (PCR) (Not Detect) Coronavirus 229E (PCR) (Not Detect) SARS-CoV-2 (PCR) Negative (Negative) Coronavirus NL63 (PCR) (Not Detect) Human Metapneumovir PCR (Not Detect) Influenza A (RT-PCR) Flu a negative (NEGATIVE) Influenza Type A (PCR) (Not Detect) Influenza B (RT-PCR) Flu b negative (NEGATIVE) Influenza Type B (PCR) (Not Detect) M. pneumoniae (PCR) (Not Detect) Parainfluenza 1 (PCR) (Not Detect) Parainfluenza 2 (PCR) (Not Detect) Parainfluenza 3 (PCR) (Not Detect) Parainfluenza 4 (PCR) (Not Detect) RSV (PCR) Negative (Negative) Entero/Rhino (PCR) (Not Detect) 05/26/24 05/26/24 05/26/24 Range/Units 11:50 12:35 13:00 WBC (4.5-11.0) X10^3/uL RBC (4.0-5.2) X10^6/uL Hgb (12.0-16.0) g/dL Hct (36-46) % MCV (80-100) fL MCH (26-34) PG MCHC (30-36) % RDW (11.6-14.8) % Plt Count (150-400) X10^3/uL Neut % (Auto) (50-75) % Lymph % (Auto) (25-40) % [place] % (Auto) (3-14) % Eos % (Auto) (2-4) % Baso % (Auto) (0-2) % Neut # (Auto) (0725-1072) /uL Lymph # (Auto) (0176-2485) /uL [place] # (Auto) (0-900) /uL Eos # (Auto) (0-450) /uL Baso # (Auto) (0-100) /uL RBC Morphology Anisocytosis Sodium (137-145) mmol/L Potassium (3.4-5.1) mmol/L Chloride (98-107) mmol/L Carbon Dioxide (22-32) mmol/L BUN (7-17) mg/dL Creatinine (0.52-1.04) mg/dL Estimated GFR (>60) mL/min BUN/Creatinine Ratio (6-22) Glucose (80-110) mg/dL Lactate 1.5 (0.7-2.1) mmol/L Calcium (8.4-10.2) mg/dL Magnesium (1.6-2.3) mg/dL Total Bilirubin (0.2-1.3) mg/dL AST (14-36) IU/L ALT (<35) IU/L Alkaline Phosphatase (38-126) U/L Total Creatine Kinase (30-135) U/L Troponin I (0.01-0.034) ng/mL NT-Pro-B Natriuret Pep (<450) pg/mL Total Protein (6.3-8.2) g/dL Albumin (3.5-5.0) g/dL Globulin (1.7-4.1) g/dL Albumin/Globulin Ratio (1.0-2.8) Procalcitonin (<0.5) ng/mL Urine Color Yellow Urine Appearance Sl cloudy Urine pH 6.0 (4.5-8.0) Ur Specific [place] 1.010 (1.000-1.035) Urine Protein Negative (Negative) Urine Glucose (UA) Negative (Negative) g/dL Urine Ketones Negative (NEGATIVE) Urine Occult Blood 2+ H (Negative) Urine Nitrate Negative (Negative) Urine Bilirubin Negative (NEGATIVE) Urine Urobilinogen 0.2 (0.2) E.U./dL Ur Leukocyte Esterase 3+ H (NEGATIVE) Urine RBC 5-10/hpf H (0-5/HPF) Urine WBC 30-100/hpf H (0-5/HPF) Ur Squamous Epith Cells None seen D (0-5/HPF) Urine Bacteria None seen (None) Ur Culture Indicated? Specimen cultured Vol Urine Centrifuged 10ml (spun) Chlamy pneumoniae PCR Not detected (Not Detect) Adenovirus (PCR) Not detected (Not Detect) B. pertussis DNA (PCR) Not detected (Not Detect) B.parapertussis DNA PCR Not detected (Not Detecte) Coronavirus OC43 (PCR) Not detected (Not Detect) Coronavirus HKU1 (PCR) Not detected (Not Detect) Coronavirus 229E (PCR) Not detected (Not Detect) SARS-CoV-2 (PCR) Not detected (Negative) Coronavirus NL63 (PCR) Not detected (Not Detect) Human Metapneumovir PCR Not detected (Not Detect) Influenza A (RT-PCR) (NEGATIVE) Influenza Type A (PCR) Not detected (Not Detect) Influenza B (RT-PCR) (NEGATIVE) Influenza Type B (PCR) Not detected (Not Detect) M. pneumoniae (PCR) Not detected (Not Detect) Parainfluenza 1 (PCR) Not detected (Not Detect) Parainfluenza 2 (PCR) Not detected (Not Detect) Parainfluenza 3 (PCR) Not detected (Not Detect) Parainfluenza 4 (PCR) Not detected (Not Detect) RSV (PCR) Not detected (Negative) Entero/Rhino (PCR) Not detected (Not Detect) MDM Narrative Medical decision making narrative: CC: Increasing dyspnea and general malaise Complicating co-morbidities: Coronary artery disease, COPD, oxygen dependent home, recent viral episode Data collected from: patient, daughter Medical records reviewed: Hospitalization in January for acute congestive heart failure is reviewed. Notes and respiratory swab from recently mentioned urgent care visit are not immediately available Differential considered: Pneumonia, developing sepsis, congestive heart failure, acute coronary syndrome, pneumothorax, pulmonary embolism is considered less likely given her essentially unchanged oxygen saturations and no evidence of tachycardia Exam documented above, pertinent findings include: Fatigued appearing, slightly dyspneic, distant lung sounds but otherwise minimally remarkable lung exam. Lab Test results independently reviewed as above. Pertinent findings: CBC does not show significant leukocytosis Chemistries are notable for unchanged renal function Liver studies were reassuring Troponin is undetectable ProBNP is not elevated Lactic acid is elevated at 2.5 Procalcitonin is normal Respiratory panel does not suggest acute respiratory viral etiology as screen for Urine shows blood leukocyte esterase, red cells white cells it has been cultured. Independently reviewed EKG: Sinus rhythm at a rate of 70. Right bundle branch block. Nonspecific STT wave changes. No acute ischemia Imaging studies independently reviewed: Chest x-ray is unremarkable Treatments: 1 L of fluid, ceftriaxone for possible urinary tract infection Re-evaluations: Patient is re-evaluated. States she still feels globally weak. Lungs are re- examined perhaps some mild clock crackles and developing rhonchi at the right base but certainly no significant wheeze and fairly symmetrical pulmonary noises such that COPD exacerbation seems less likely. Congestive heart failure and acute coronary syndrome are unlikely based on lab tests. There was no respiratory distress. Her urine may be infected. In looking back through prior microbiology results she has not had a positive urinary culture as noted in our medical records. White blood cell count is not significantly elevated nor is procalcitonin. Suspect that this is dehydration and likely viral syndrome. Viral panel for flu, COVID and RSV is pending if this is negative I believe full respiratory panel would actually add to the diagnostic workup. At this point dehydration seems more of the issue rather than sepsis. Discussion: 88-year-old woman with chronic COPD, home oxygen feeling worse over the last few days. Workup does not suggest significant bacterial infection, sepsis, respiratory panel is unremarkable, she has not wheezing I do not suspect an acute COPD exacerbation, chemistries do not suggest acute abnormalities, no evidence of acute coronary syndrome, congestive heart failure. Lactate was slightly elevated and has responded nicely to fluids. Patient does feel slightly better after fluids. She was given 2 g of ceftriaxone with a presumed positive urinalysis suggesting urinary tract infection. Findings reviewed with the patient in light of weakness as her main complaint and help available at home with oxygen available at home for her chronic oxygen needs and no evidence of sepsis I believe she is safe for discharge. Patient was actually quite pleased with that as her disposition. Questions are answered and she will follow up with her primary care physician Discharge Plan Departure Patient Disposition: Home Clinical Impression: Acute dehydration, Acute UTI Instructions: DI for Urinary Tract Infection (UTI) Activity Restrictions/Additional Instructions: Thank you for coming in today I do not have full explanation for why you are feeling so much worse. You are not having a heart attack, there is not heart failure you are not septic there was not a large pneumonia, you do not have any of the 19 respiratory viruses that we can check for. Your lab work did suggest mild dehydration and your urinalysis suggested a bladder infection. You have been given a L of fluid as well as antibiotics for the bladder infection and a [facility] for 5 additional [facility] [place] If you find that you are having worsening symptoms or new findings, please do return to the emergency department for further evaluation Prescriptions: New cephalexin 500 mg capsule 500 mg PO TID Qty: 15 0RF No Action aspirin 81 MG tablet,delayed release (DR/EC) 81 mg PO DAILY Qty: 0 pantoprazole 40 mg Tablet,Delayed Release (Dr/Ec) 40 mg PO DAILY escitalopram oxalate 20 mg Tablet 20 mg PO DAILY furosemide 20 mg tablet 10 mg PO DAILY Jardiance 10 mg tablet 10 mg PO DAILY metoprolol tartrate 25 mg tablet 12.5 mg PO BID prednisone 10 mg tablet 10 mg PO DIRECTED Qty: 70 0RF Rx Instructions: Take 40 mg daily for 1 week, 30 mg daily for 1 week, 20 mg daily for 1 week, 10 mg daily for 1 week then stop (DME) pen needle, diabetic [Pen Needle] 31 gauge x 3/16 needle See Rx Instructions .Route Qty: 100 0RF Rx Instructions: Once daily with insulin pen needle (DME) blood-glucose meter [Blood Glucose Monitoring] Kit See Rx Instructions .Route Qty: 1 0RF Rx Instructions: One blood glucose meter (DME) Blood Glucose Test Strip See Rx Instructions .Route Qty: 100 0RF Rx Instructions: Check glucose 3-4 times daily, in AM and before meals nitroglycerin 0.4 mg tablet, sublingual 1 tab sublingual [id number] PRN (Reason: Chest Pain) Patient Comments: take it when needed, last dose unknown rosuvastatin 40 mg tablet 40 mg PO QPM Referrals: Zoe Bass PA-C [Primary Care Provider] - Stand Alone Forms: Patient Portal/API/Survey
--- NOTE | 2024-05-26 10:06 | EKG_ITS ---
[address] [address] Test Date: 2024-05-26 Pat Name: Lida Townsend Department: Room: Gender: Female Ingredient Specialist: HERNANDEZ : 1935 Requested By: Order Number: [id number] Reading MD: Robby Whitney MD Measurements Intervals [place] Rate: 70 P: 77 VT: 216 QRS: 107 QRSD: 102 T: 33 QT: 452 QTc: 488 Interpretive Statements Sinus rhythm with 1st degree AV block Incomplete right bundle branch block Possible Right ventricular hypertrophy Nonspecific T wave abnormality Prolonged QT NO SIGNIFICANT CHANGE FROM PRIOR TRACING Electronically Signed On 05-27-2024 16:45:19 PST by Robby Whitney MD
--- NOTE | 2024-05-26 10:11 | EKG_ITS ---
[address] [address] Test Date: 2024-05-26 Pat Name: Lida Townsend Department: Room: Gender: Female Liquor Department Manager: : 1935 Requested By: Order Number: [id number] Reading MD: Robby Whitney MD Measurements Intervals [place] Rate: 72 P: 96 [place]: 208 QRS: 109 QRSD: 100 T: 27 QT: 444 QTc: 486 Interpretive Statements Suspect arm lead reversal, interpretation assumes no reversal Normal sinus rhythm Incomplete right bundle branch block Possible Right ventricular hypertrophy NO SIGNIFICANT CHANGE FROM PRIOR TRACING Electronically Signed On 05-27-2024 7:33:33 PST by Robby Whitney MD
--- NOTE | 2024-05-26 10:11 | DI.RAD.S_ITS ---
PROCEDURE: XR CHEST 1V INDICATIONS: dyspnea TECHNIQUE: One view of the chest was acquired. COMPARISON: [facility], CR, XR CHEST 1V, 01/25/2024, 17:03. FINDINGS: Surgical changes and devices: None. Lungs and pleura: Lungs are clear. No pleural effusions or pneumothorax. Mediastinum: Mediastinal contours appear normal. Heart size is enlarged. Bones and chest wall: No suspicious bony lesions. Overlying soft tissues appear unremarkable. IMPRESSION: No acute pulmonary process. Dictated by: Debby Sahu M.D. on 05/26/2024 at 10:59 Approved by: Debby Sahu M.D. on 05/26/2024 at 10:59
[2024-05-26 10:25] LABS: Add Manual Diff / Slide Review NO; Basophils Absolute Auto 100 /uL (0-100); Basophils Percent Auto 0.7 % (0-2); Eosinophils Absolute Auto 200 /uL (0-450); Eosinophils Percent Auto 1.7 % (2-4); Hematocrit 38.4 % (36-46); Hemoglobin 12.2 g/dL (12.0-16.0); Lymphocytes Absolute Auto 2100 /uL (1100-4500); Lymphocytes Percent Auto 22.5 % (25-40); Mean Corpuscular HGB Conc 31.7 % (30-36); Mean Corpuscular Hemoglobin 23.3 PG (26-34); Mean Corpuscular Volume 73.6 fL (80-100); Monocytes Absolute Auto 700 /uL (0-900); Monocytes Percent Auto 7.5 % (3-14); Neutrophils Absolute Auto 6200 /uL (1500-7000); Neutrophils Percent Auto 67.6 % (50-75); Platelet Count 271 X10^3/uL (150-400); Red Blood Cell Count 5.23 X10^6/uL (4.0-5.2); Red Cell Distribution Width 20.6 % (11.6-14.8); White Blood Cell Count 9.1 X10^3/uL (4.5-11.0)
[2024-05-26 10:34] LABS: Alanine Aminotransferase 15 IU/L (<35); Albumin 4.4 g/dL (3.5-5.0); Albumin Globulin Ratio 1.5 (1.0-2.8); Alkaline Phosphatase 50 U/L (38-126); Aspartate Aminotransferase 39 IU/L (14-36); BUN Creatinine Ratio 18.6 (6-22); Bilirubin Total 0.7 mg/dL (0.2-1.3); Blood Urea Nitrogen 18 mg/dL (7-17); Calcium 9.3 mg/dL (8.4-10.2); Carbon Dioxide 28 mmol/L (22-32); Chloride 100 mmol/L (98-107); Creatine Kinase 65 U/L (30-135); Estimated Glomerular Filt Rate 57 mL/min (>60); Glucose 139 mg/dL (80-110); Potassium 4.4 mmol/L (3.4-5.1); Sodium 136 mmol/L (137-145); Total Protein 7.4 g/dL (6.3-8.2)
[2024-05-26 10:35] LABS: Lactate (Lactic Acid) 2.5 mmol/L (0.7-2.1)
[2024-05-26 10:36] LABS: HEMOLYSIS 105 (0-50)
[2024-05-26 10:37] LABS: Anisocytosis 1+
[2024-05-26 10:46] LABS: NT-proBNP (BNP-Adult 18+) 386 pg/mL (<450); Troponin I 0.015 ng/mL (0.01-0.034)
[2024-05-26 10:48] LABS: Troponin I 0.015 ng/mL (0.01-0.034)
[2024-05-26 10:51] LABS: Procalcitonin 0.047 ng/mL (<0.5)
[2024-05-26] MEDS: SODIUM CHLORIDE 0.9% 1,000 ML 1000 ML IV (11:36)
[2024-05-26 11:56] LABS: Reflexed Lactate in 2 Hours Y
[2024-05-26 12:04] LABS: Appearance Urine UA SL CLOUDY; Bilirubin Urine UA NEGATIVE (NEGATIVE); Color Urine UA YELLOW; Glucose Urine UA NEGATIVE (Negative); Ketones Urine UA NEGATIVE (NEGATIVE); Leukocyte Esterase Urine UA 3+ (NEGATIVE); Nitrite Urine UA NEGATIVE (Negative); Occult Blood Urine UA 2+ (Negative); Protein Urine UA NEGATIVE (Negative); Urobilinogen Urine UA 0.2 E.U./dL (0.2)
[2024-05-26 12:09] LABS: Bacteria Urine None Seen; RBC Urine 5-10/HPF (0-5/HPF); Squamous Epithelial Cell Urine None Seen (0-5/HPF); Urine Volume 10mL (spun); WBC Urine 30-100/HPF (0-5/HPF)
[2024-05-26 12:10] LABS: Culture Indicated Urine Specimen Cultured
[2024-05-26 12:26] LABS: COVID-19 CEPHEID 4-PLEX PCR Negative (Negative); Influenza A - CEPHEID Flu A NEGATIVE (NEGATIVE); Influenza B - CEPHEID Flu B NEGATIVE (NEGATIVE); Respiratory Syncytial Virus Negative (Negative)
[2024-05-26] MEDS: cefTRIAXone 2,000 MG in SODIUM CHLORIDE 0.9% 100 ML 200 MG IV (12:56)
[2024-05-26 13:02] LABS: Lactate 2HR (Lactic Acid Rflx) 1.5 mmol/L (0.7-2.1)
[2024-05-26 13:58] LABS: Adenovirus Not Detected (Not Detect); B. parapertussis Not Detected (Not Detecte); Bordetella pertussis Not Detected (Not Detect); Chlamydophila pneumoniae Not Detected (Not Detect); Coronavirus 229E Not Detected (Not Detect); Coronavirus HKU1 Not Detected (Not Detect); Coronavirus NL 63 Not Detected (Not Detect); Coronavirus OC43 Not Detected (Not Detect); Human Metapneumovirus Not Detected (Not Detect); Human Rhinovirus/Enterovirus Not Detected (Not Detect); Influenza A Not Detected (Not Detect); Influenza B Not Detected (Not Detect); Mycoplasma pneumoniae Not Detected (Not Detect); Parainfluenza Virus 1 Not Detected (Not Detect); Parainfluenza Virus 2 Not Detected (Not Detect); Parainfluenza Virus 3 Not Detected (Not Detect); Parainfluenza Virus 4 Not Detected (Not Detect); Respiratory Syncytial Virus Not Detected (Not Detect); SARS- CoV-2 Not Detected (Not Detecte)
== END 2024-05-26 15:47 | disposition home or self-care (01) ==
PROVIDERS: Emergency Provider Emergency Medicine; Family Provider Internal Medicine; PCP Physician Assistant Medical
DX: N39.0 Urinary tract infection, site not specified (principal); E86.0 Dehydration; R06.00 Dyspnea, unspecified; I45.10 Unspecified right bundle-branch block
CPT/HCPCS: 0241U; 36415; 71045; 80053; 81001; 82550; 83605; 83735; 83880; 84145; 84484; 85025; 87040; 87086; 87633; 93005; 96361; 96365; 99284; J0696

== ENCOUNTER 2024-07-03 11:13 | Emergency (ER) | payer MEDICARE, OTHER, SELFPAY ==
[2024-01-25 23:22] VITALS: BMI 42.5
[2024-07-03] VITALS (14 sets, daily range): BP systolic 94–188; BP diastolic 57–82; PULSE 59–85; RESP 14–24; TEMP 37–37.4; O2SAT 97–100; BMI 41.5
--- NOTE | 2024-07-03 11:22 | DI.RAD.S_ITS ---
PROCEDURE: XR CHEST 1V INDICATIONS: chest pain TECHNIQUE: One view of the chest was acquired. COMPARISON: [facility], CR, XR CHEST 1V, 05/26/2024, 10:24. [facility], CR, XR CHEST 1V, 01/25/2024, 17:03. FINDINGS AND IMPRESSION: On this single view study, no dense airspace consolidation or pleural effusion. Cardiomegaly again seen, with aortic calcifications. Degenerative osseous changes. Dictated by: Jeramy Wilcox M.D. on 07/03/2024 at 12:20 Approved by: Jeramy Wilcox M.D. on 07/03/2024 at 12:21
--- NOTE | 2024-07-03 11:34 | EKG_ITS ---
[address] [address] Test Date: 2024-07-03 Pat Name: Lida Townsend Department: Room: Gender: Female Institution Director: RAY : 1935 Requested By: Order Number: [id number] Reading MD: Robby Whitney MD Measurements Intervals [place] Rate: 59 P: 82 [place]: 206 QRS: 108 QRSD: 94 T: 34 QT: 500 QTc: 495 Interpretive Statements Sinus bradycardia Incomplete right bundle branch block Possible Right ventricular hypertrophy Prolonged QT NO SIGNIFICANT CHANGE FROM PRIOR TRACING Electronically Signed On 07-04-2024 7:36:38 PST by Robby Whitney MD
[2024-07-03 12:39] LABS: INR 1.1 (0.9-1.3); Prothrombin Time 12.5 SECONDS (9.4-12.5)
[2024-07-03 12:40] LABS: Add Manual Diff / Slide Review NO; Basophils Absolute Auto 100 /uL (0-100); Basophils Percent Auto 0.8 % (0-2); Eosinophils Absolute Auto 200 /uL (0-450); Eosinophils Percent Auto 2.1 % (2-4); Lymphocytes Absolute Auto 2200 /uL (1100-4500); Lymphocytes Percent Auto 24.6 % (25-40); Mean Corpuscular HGB Conc 31.7 % (30-36); Mean Corpuscular Hemoglobin 22.8 PG (26-34); Mean Corpuscular Volume 71.9 fL (80-100); Monocytes Absolute Auto 700 /uL (0-900); Monocytes Percent Auto 7.5 % (3-14); Neutrophils Absolute Auto 5900 /uL (1500-7000); Platelet Count 269 X10^3/uL (150-400); Red Blood Cell Count 5.28 X10^6/uL (4.0-5.2); Red Cell Distribution Width 20.6 % (11.6-14.8); White Blood Cell Count 9.1 X10^3/uL (4.5-11.0)
[2024-07-03 12:42] LABS: PTT Partial Thromboplastin Tim 31 SECONDS (25.1-36.5)
[2024-07-03 12:43] LABS: Alanine Aminotransferase 11 IU/L (<35); Albumin 4.3 g/dL (3.5-5.0); Albumin Globulin Ratio 1.3 (1.0-2.8); Alkaline Phosphatase 60 U/L (38-126); Aspartate Aminotransferase 26 IU/L (14-36); BUN Creatinine Ratio 15.8 (6-22); Bilirubin Total 0.5 mg/dL (0.2-1.3); Blood Urea Nitrogen 19 mg/dL (7-17); Calcium 9.5 mg/dL (8.4-10.2); Carbon Dioxide 28 mmol/L (22-32); Chloride 97 mmol/L (98-107); Creatine Kinase 42 U/L (30-135); Estimated Glomerular Filt Rate 44 mL/min (>60); Globulin 3.2 g/dL (1.7-4.1); Glucose 109 mg/dL (80-110); HEMOLYSIS < 15 (0-50); Lipase 160 U/L (23-300); Magnesium 2.1 mg/dL (1.6-2.3); Potassium 4.1 mmol/L (3.4-5.1); Sodium 135 mmol/L (137-145); Total Protein 7.5 g/dL (6.3-8.2)
[2024-07-03 12:54] LABS: NT-proBNP (BNP-Adult 18+) 463 pg/mL (<450); Troponin I 0.013 ng/mL (0.01-0.034)
[2024-07-03 13:29] LABS: Anisocytosis 1+
--- NOTE | 2024-07-03 16:02 | ED_ITS ---
HPI - Chest Pain General Chief Complaint: Chest Pain Stated Complaint: Chest tightness , hard time breathing,leg pain Time Seen by Provider: 07/03/24 15:38 Mode of arrival: Wheelchair History of Present Illness HPI narrative: Patient here with daughter. Has history of CHF interstitial fibrosis of the lungs, cardiac amyloidosis. Patient does not have established maintenance repairman. Patient sees Dr. Ellington with Cardiology as [facility]. Has had a very hard cough in the past 6 days. Hurts to take a deep breath/cough bilateral ribs hurt. Patient is on 2 L nasal cannula continuously at home but now needs 3 L. she has not taken breathing treatment since this past Monday. Has diminished lung sounds bilaterally. Leg swelling is not new for her CHF. No changes. Related Data Home Medications Medication Instructions Recorded Confirmed aspirin 81 mg tablet,delayed 81 mg PO DAILY ##0 05/14/17 07/03/24 release nitroglycerin 0.4 mg sublingual 1 tab sublingual [id number] PRN Chest 11/18/18 07/03/24 tablet Pain rosuvastatin 40 mg tablet 40 mg PO QPM 11/18/18 07/03/24 escitalopram oxalate 20 mg tablet 20 mg PO DAILY 03/06/21 07/03/24 pantoprazole 40 mg tablet,delayed 40 mg PO DAILY 03/06/21 07/03/24 release furosemide 20 mg tablet 20 mg PO DAILY 01/11/23 07/03/24 metoprolol tartrate 25 mg tablet 12.5 mg PO BID 01/31/24 07/03/24 acetaminophen 300 mg-codeine 30 mg 1 tab PO BID PRN pain 07/03/24 07/03/24 tablet alprazolam 0.5 mg tablet 0.25 mg PO USEASDIRECTD 07/03/24 07/03/24 buspirone 10 mg tablet 10 mg PO BID PRN anxiety 07/03/24 07/03/24 ipratropium 0.5 mg-albuterol 3 mg 3 ml inhalation DIRECTED PRN 07/03/24 07/03/24 (2.5 mg base)/3 mL nebulization sob, wheezing soln ranolazine 500 mg tablet,extended 500 mg PO BID 07/03/24 07/03/24 release,12 hr Previous Rx's Medication Instructions Recorded blood sugar diagnostic (Blood #100 ea 02/01/24 Glucose Test strips) blood-glucose meter (Blood Glucose #1 ea 02/01/24 Monitoring kit) pen needle, diabetic 31 gauge x #100 ea 02/01/24/ (Pen Needle) amoxicillin 875 mg-potassium 1 tab PO BID #14 tabs 07/03/24 clavulanate 125 mg tablet benzonatate 100 mg capsule 100 mg PO TID PRN cough #20 caps 07/03/24 doxycycline monohydrate 100 mg 100 mg PO BID #14 caps 07/03/24 capsule Allergies Allergy/AdvReac Type Severity Reaction Status Date / Time ibuprofen [IBUPROFEN] Allergy Severe Rash Verified 07/03/24 11:21 Iodinated Contrast Media Allergy Severe Unconscious Verified 07/03/24 11:21 [IODINATED CONTRAST- ORAL AND IV DYE] morphine [MORPHINE] Allergy Severe Rash Verified 07/03/24 11:21 naproxen [From ALEVE] Allergy Severe Rash Verified 07/03/24 11:21 telmisartan [TELMISARTAN] Allergy Severe Rash Verified 07/03/24 11:21 Review of Systems Review of Systems Narrative: GENERAL: Negative chills, fatigue, malaise, fever, sweats. HEENT: Negative sinus pain, ear pain, sore throat RESPIRATORY: Positive dyspnea, cough CARDIOVASCULAR: Negative chest pain, palpitations, positive peripheral edema GASTROINTESTINAL: Negative nausea, vomiting, abdominal pain : Negative dysuria, frequency, hematuria MUSCULOSKELETAL: Negative muscle or bony pain SKIN: Negative rash, skin lesions NEUROLOGIC: Negative weakness, numbness ROS Unobtainable: All systems reviewed & are unremarkable except as noted in HPI and below Patient History Medical History (Updated 07/03/24 @ 18:14 by Richie Bull MD) Chronic respiratory failure with hypoxia Skin cancer NSTEMI (non-ST elevated myocardial infarction) Diastolic heart failure Cardiac arrest Chest pain Hypertension Hyperlipidemia Coronary artery disease Left hamstring muscle strain UTI (urinary tract infection) Surgical History H/O right heart catheterization History of breast implant removal History of breast surgery History of appendectomy History of cholecystectomy History of total abdominal hysterectomy History of coronary artery stent placement Family History Father Hypertension Diabetes mellitus Mother Hypertension CO (myocardial infarction) Sister CO (myocardial infarction) S/P CABG x 4 Social History household members: children Smoking Status: Never smoker Smoking Status: Never smoker alcohol intake frequency: holidays/special occasions only Exam Narrative Exam Narrative: GENERAL: in no distress, not toxic not dyspneic HEAD: Normocephalic. EYES: Pupils equal round ENT: Mucous membranes moist. NECK: Trachea midline. CARDIOVASCULAR: Regular rate and rhythm RESPIRATORY: Patient is speaking comfortably in full sentences. No respiratory distress, mildly coarse bibasilar lung sounds. No rhonchi wheezing rales GASTROINTESTINAL: Abdomen soft, non-tender EXTREMITIES: No gross deformities. Mild bilateral ankle edema which patient states is not new. Calves are nontender. No palpable cords. Negative Homans test negative Vargas test. Strong bilateral posterior tibial pulses legs are warm soft and pink BACK: No flank tenderness. NEURO: AOx4. Clear speech SKIN: Warm and dry PSYCH: Not anxious, is cooperative Initial Vital Signs Initial Vital Signs: Vital Signs Temperature 98.6 F 07/03/24 11:22 Pulse Rate 59 L 07/03/24 11:22 Respiratory Rate 16 07/03/24 11:22 Blood Pressure 123/57 L 07/03/24 11:22 Pulse Oximetry 98 07/03/24 11:22 Oxygen Delivery Method Room Air 07/03/24 11:22 Course Orders Ordered: Discontinued Medications Albuterol/Ipratropium (Albuterol/Ipratropium 3 Ml Ampul) 3 ml INH NOW ONE Stop: 07/03/24 16:02 Last Admin: 07/03/24 16:29 Dose: 3 ml Documented By: DAVIAN Amoxicillin/Clavulanate Potassium (Amoxicillin/Clav 875/125 Mg) 1 tab PO NOW ONE Stop: 07/03/24 18:09 Last Admin: 07/03/24 18:25 Dose: 1 tab Documented By: JOSHUA Benzonatate (Benzonatate 100 Mg Capsule) 100 mg PO NOW ONE Stop: 07/03/24 16:02 Last Admin: 07/03/24 16:21 Dose: 100 mg Documented By: JOSHUA(2) Doxycycline Hyclate (Doxycycline Hyclate 100 Mg Tablet) 100 mg PO NOW ONE Stop: 07/03/24 18:09 Last Admin: 07/03/24 18:25 Dose: 100 mg Documented By: JOSHUA Methylprednisolone (Methylprednisolone 125 Mg/2 Ml Vial) 125 mg IV NOW ONE Stop: 07/03/24 16:02 Last Admin: 07/03/24 16:21 Dose: 125 mg Documented By: JOSHUA(2) Vital Signs Vital signs: Vital Signs - 8 hr 07/03/24 11:22 07/03/24 14:08 07/03/24 15:23 Temperature 98.6 F 99.4 F Pulse Rate 59 L 65 73 Respiratory Rate 16 Blood Pressure 123/57 L 94/59 L Pulse Oximetry 98 100 97 Oxygen Delivery Method Room Air Nasal Cannula Nasal Cannula Oxygen Flow Rate 3 3 07/03/24 15:24 07/03/24 15:24 07/03/24 15:30 Temperature Pulse Rate 73 Respiratory Rate Blood Pressure 141/63 H 139/62 Pulse Oximetry 97 Oxygen Delivery Method Nasal Cannula Oxygen Flow Rate 3 07/03/24 15:30 07/03/24 16:00 07/03/24 16:00 Temperature Pulse Rate 69 72 Respiratory Rate 22 22 Blood Pressure 143/62 H Pulse Oximetry 100 98 Oxygen Delivery Method Nasal Cannula Nasal Cannula Oxygen Flow Rate 3 3 07/03/24 16:30 07/03/24 16:41 07/03/24 17:00 Temperature Pulse Rate 76 72 72 Respiratory Rate 21 16 18 Blood Pressure Pulse Oximetry 99 97 99 Oxygen Delivery Method Nasal Cannula Nasal Cannula Oxygen Flow Rate 2 3 07/03/24 17:30 07/03/24 17:36 07/03/24 17:36 Temperature Pulse Rate 74 74 Respiratory Rate 18 24 Blood Pressure 170/69 H Pulse Oximetry 99 98 Oxygen Delivery Method Nasal Cannula Nasal Cannula Oxygen Flow Rate 3 3 07/03/24 17:47 07/03/24 17:47 Temperature Pulse Rate 85 Respiratory Rate 20 Blood Pressure 188/82 H Pulse Oximetry 98 Oxygen Delivery Method Nasal Cannula Oxygen Flow Rate 3 MDM - Chest Pain Lab Data 07/03/24 11:22 07/03/24 11:22 Labs: Lab Results 07/03/24 07/03/24 Range/Units 11:22 16:04 WBC 9.1 (4.5-11.0) X10^3/uL RBC 5.28 H (4.0-5.2) X10^6/uL Hgb 12.0 (12.0-16.0) g/dL Hct 38.0 (36-46) % MCV 71.9 L (80-100) fL MCH 22.8 L (26-34) PG MCHC 31.7 (30-36) % RDW 20.6 H (11.6-14.8) % Plt Count 269 (150-400) X10^3/uL Neut % (Auto) 65.0 (50-75) % Lymph % (Auto) 24.6 L (25-40) % Pine % (Auto) 7.5 (3-14) % Eos % (Auto) 2.1 (2-4) % Baso % (Auto) 0.8 (0-2) % Neut # (Auto) 5900 (2707-0712) /uL Lymph # (Auto) 2200 (7273-0544) /uL Pine # (Auto) 700 (0-900) /uL Eos # (Auto) 200 (0-450) /uL Baso # (Auto) 100 (0-100) /uL RBC Morphology See below Anisocytosis 1+ H PT 12.5 (9.4-12.5) SECONDS INR 1.1 (0.9-1.3) APTT 31 (25.1-36.5) SECONDS Sodium 135 L (137-145) mmol/L Potassium 4.1 (3.4-5.1) mmol/L Chloride 97 L (98-107) mmol/L Carbon Dioxide 28 (22-32) mmol/L BUN 19 H (7-17) mg/dL Creatinine 1.20 H (0.52-1.04) mg/dL Estimated GFR 44 L (>60) mL/min BUN/Creatinine Ratio 15.8 (6-22) Glucose 109 (80-110) mg/dL Calcium 9.5 (8.4-10.2) mg/dL Magnesium 2.1 (1.6-2.3) mg/dL Total Bilirubin 0.5 (0.2-1.3) mg/dL AST 26 (14-36) IU/L ALT 11 (<35) IU/L Alkaline Phosphatase 60 (38-126) U/L Total Creatine Kinase 42 (30-135) U/L Troponin I 0.013 (0.01-0.034) ng/mL NT-Pro-B Natriuret Pep 463 H (<450) pg/mL Total Protein 7.5 (6.3-8.2) g/dL Albumin 4.3 (3.5-5.0) g/dL Globulin 3.2 (1.7-4.1) g/dL Albumin/Globulin Ratio 1.3 (1.0-2.8) Lipase 160 (23-300) U/L Chlamy pneumoniae PCR Not detected (Not Detect) Adenovirus (PCR) Not detected (Not Detect) B. pertussis DNA (PCR) Not detected (Not Detect) B.parapertussis DNA PCR Not detected (Not Detecte) Coronavirus OC43 (PCR) Not detected (Not Detect) Coronavirus HKU1 (PCR) Not detected (Not Detect) Coronavirus 229E (PCR) Not detected (Not Detect) SARS-CoV-2 (PCR) Not detected (Not Detecte) Coronavirus NL63 (PCR) Not detected (Not Detect) Human Metapneumovir PCR Not detected (Not Detect) Influenza Type A (PCR) Not detected (Not Detect) Influenza Type B (PCR) Not detected (Not Detect) M. pneumoniae (PCR) Not detected (Not Detect) Parainfluenza 1 (PCR) Not detected (Not Detect) Parainfluenza 2 (PCR) Not detected (Not Detect) Parainfluenza 3 (PCR) Not detected (Not Detect) Parainfluenza 4 (PCR) Not detected (Not Detect) RSV (PCR) Not detected (Not Detect) Entero/Rhino (PCR) Not detected (Not Detect) Imaging Data Chest x-ray: Radiologist's Impression: [address] [address] XRay Report Signed Patient: Lida Townsend MR#: [id number] : 1935 Acct:[id number] Age/Sex: 88 / F Date of Service: 07/03/24 Loc: ED Accession Number: [id number] Procedure: XR chest 1V Ordering Provider: Richie Bull MD PROCEDURE: XR CHEST 1V INDICATIONS: chest pain TECHNIQUE: One view of the chest was acquired. COMPARISON: [facility], CR, XR CHEST 1V, 05/26/2024, 10:24. [facility], CR, XR CHEST 1V, 01/25/2024, 17:03. FINDINGS AND IMPRESSION: On this single view study, no dense airspace consolidation or pleural effusion. Cardiomegaly again seen, with aortic calcifications. Degenerative osseous changes. Dictated by: Jeramy Wilcox M.D. on 07/03/2024 at 12:20 Approved by: Jeramy Wilcox M.D. on 07/03/2024 at 12:21 CT scan - chest: Radiologist's Impression: [address] [address] [address] Scan Report Signed Patient: Lida Townsend MR#: [id number] : 1935 Acct:[id number] Age/Sex: 88 / F Date of Service: 07/03/24 Loc: ED Accession Number: [id number] Procedure: CT chest wo con Ordering Provider: Richie Bull MD PROCEDURE: CT CHEST WO CON INDICATIONS: Dyspnea TECHNIQUE: Noncontrast 5 mm thick sections acquired from the pulmonary apices to the posterior costophrenic angles. 1 mm lung window, 5 mm thick coronal and sagittal and 7 mm axial MIP reformats were then acquired. For radiation dose reduction, the following was used: automated exposure control, adjustment of mA and/or kV according to patient size. COMPARISON: [facility], CT, CT CHEST WO CON, 01/27/2024, 11:31. FINDINGS: Image quality: Diagnostic. Lower Neck: No enlarged lymph nodes. Thyroid: No thyroid nodules which require sonographic follow up, per consensus guidelines. Axillae: No enlarged lymph nodes. Chest Wall: Bilateral mastectomies. Nodular soft tissue in the right upper chest is stable compared to prior.. Bones: Degenerative changes of the spine with several stable compression deformities. Decreased osseous mineralization. Lungs and Pleura: No pneumothorax or pleural effusions. Subtle patchy areas of ground-glass within the left upper lobe are new. Redemonstration of bilateral subpleural reticulations with areas of bronchiectasis and bronchial wall thickening. Heart: Heart size is enlarged. Severe coronary artery calcifications. Trace pericardial effusion. Thoracic Vessels: The aorta and pulmonary arteries demonstrate normal size. Atherosclerotic vascular calcifications. Mediastinum and Usha: Mildly increased size of prominent and mildly enlarged mediastinal lymph nodes. For example within the AP window, there is a rounded 1.3 cm lymph node (2/39). Esophagus: No wall thickening. Small hiatal hernia. Upper Abdomen: Visualized upper abdomen solid organs and bowel loops appear normal. IMPRESSION: 1. Subtle patchy areas of ground-glass in the left upper lobe are new compared to prior. Findings may be infectious or inflammatory in etiology. 2. Stable chronic interstitial changes with subpleural reticulations. No honeycombing. 3. Increased size of prominent and mildly enlarged mediastinal lymph nodes including a rounded 1.3 cm lymph node. While these may be reactive, metastases cannot be excluded. 4. Severe coronary artery calcifications. 5. Please see above for additional findings. Dictated by: Juan Irving M.D. on 07/03/2024 at 17:05 Approved by: Juan Irving M.D. on 07/03/2024 at 17:12 [facility] Narrative Medical decision making narrative: Patient here with daughter. Has history of CHF interstitial fibrosis of the lungs, cardiac amyloidosis. Patient does not have established maintenance repairman. Patient sees Dr. Ellington with Cardiology as [facility]. Has had a very hard cough in the past 6 days. Hurts to take a deep breath/cough bilateral ribs hurt. Patient is on 2 L nasal cannula continuously at home but now needs 3 L. she has not taken breathing treatment since this past Monday. Has diminished lung sounds bilaterally. Leg swelling is not new for her CHF. No changes. After history and exam CBC CMP troponin EKG chest x-ray respiratory panel DuoNeb Solu-Medrol CT chest BNP [facility] Medical records reviewed: No recent visit for this complaint Differential considered: Includes but not limited to COVID influenza rhinovirus metapneumovirus bronchitis pneumonia CHF exacerbation Lab Test results independently reviewed as above. Pertinent findings: WBC 9.1 hemoglobin 12 INR 1.1 sodium 135 potassium 4.1 BUN 19 creatinine 1.2 GFR 44 troponin 0.013 BNP 463 Independently reviewed EKG sinus bradycardia rate [address] elevation or depression QT 500 Imaging studies independently reviewed: Chest x-ray no acute finding, CT chest opacity left upper lung Consultations: None indicated at this time. Treatments: Solu-Medrol DuoNeb Augmentin Tessalon Perles doxycycline Re-evaluations: 6:10 p.m.. Patient feeling much better after Tessalon Perles breathing treatment and steroids. Reviewed with patient and daughter results. They do desire discharge home and feel very comfortable for outpatient management of pneumonia. Augmentin doxycycline will be started. Return precautions reviewed. They desire discharge home. Patient in no distress. Lung sounds have improved Discussion: Appropriate for discharge home. Although patient requiring 3 L instead of 2 L nasal cannula. Patient feels very well enough to go home after breathing treatment and steroids. Antibiotics have been started. Return precautions reviewed. She desires discharge home. No blood cultures indicated at this time. Patient afebrile. Not toxic not septic. Chest discomfort tightness pain is from coughing. And likely from pneumonia. Leg discomfort likely from chronic leg swelling which she states is not new. No ultrasound of leg indicated at this time. Clinically not DVT or SVT Diagnosis: Community acquired pneumonia Discharge Plan Departure Patient Disposition: Home Clinical Impression: Community acquired pneumonia Qualifiers: Laterality: left Lung location: upper lobe of lung Qualified Code(s): J18.9 - Pneumonia, unspecified organism Instructions: DI for Pneumonia -- Adult Activity Restrictions/Additional Instructions: Antibiotics have been started to treat for pneumonia. Please see your family doctor this week for re-evaluation. Continue your home breathing treatments. Return if worse if any questions or concerns. Prescriptions have been sent to your pharmacy to continue. Prescriptions: New benzonatate 100 mg capsule 100 mg PO TID PRN (Reason: cough) Qty: 20 0RF doxycycline monohydrate 100 mg capsule 100 mg PO BID Qty: 14 0RF amoxicillin-pot clavulanate 875-125 mg tablet 1 tab PO BID Qty: 14 0RF No Action aspirin 81 MG tablet,delayed release (DR/EC) 81 mg PO DAILY Qty: 0 pantoprazole 40 mg Tablet,Delayed Release (Dr/Ec) 40 mg PO DAILY escitalopram oxalate 20 mg Tablet 20 mg PO DAILY furosemide 20 mg tablet 20 mg PO DAILY metoprolol tartrate 25 mg tablet 12.5 mg PO BID Rx Instructions: 1/2 tablet = 12.5 mg BID - AM & PM (DME) pen needle, diabetic [Pen Needle] 31 gauge x 3/16 needle See Rx Instructions .Route Qty: 100 0RF Rx Instructions: Once daily with insulin pen needle (DME) blood-glucose meter [Blood Glucose Monitoring] Kit See Rx Instructions .Route Qty: 1 0RF Rx Instructions: One blood glucose meter (DME) Blood Glucose Test Strip See Rx Instructions .Route Qty: 100 0RF Rx Instructions: Check glucose 3-4 times daily, in AM and before meals nitroglycerin 0.4 mg tablet, sublingual 1 tab sublingual [id number] PRN (Reason: Chest Pain) Patient Comments: take it when needed, last dose unknown rosuvastatin 40 mg tablet 40 mg PO QPM acetaminophen-codeine 300-30 mg tablet 1 tab PO BID PRN (Reason: pain) alprazolam 0.5 mg tablet 0.25 mg PO USEASDIRECTD Patient Comments: take 1/2 tablet by mouth EN ROUTE TO CARDIAC IMAGING take ANOTHER... (REFER TO PRESCRIPTION NOTES). Rx Instructions: take 1/2 tablet by mouth EN ROUTE TO CARDIAC IMAGING take ipratropium-albuterol 0.5 mg-3 mg(2.5 mg base)/3 mL solution for nebulization 3 ml inhalation DIRECTED PRN (Reason: sob, wheezing) buspirone 10 mg tablet 10 mg PO BID PRN (Reason: anxiety) Rx Instructions: has not taken yet 07/03/24 --RN ranolazine 500 mg tablet extended release 12 hr 500 mg PO BID Referrals: Zoe Bass PA-C [Primary Care Provider] - Stand Alone Forms: Patient Portal/API/Survey
[2024-07-03] MEDS: methylPREDNISolone 125 MG/2 ML VIAL IV (16:21)
[2024-07-03] MEDS: BENZONATATE 100 MG CAPSULE PO (16:21)
[2024-07-03] MEDS: ALBUTEROL/IPRATROPIUM 3 ML AMPUL INH (16:29)
[2024-07-03 17:07] LABS: Adenovirus Not Detected (Not Detect); B. parapertussis Not Detected (Not Detecte); Bordetella pertussis Not Detected (Not Detect); Chlamydophila pneumoniae Not Detected (Not Detect); Coronavirus 229E Not Detected (Not Detect); Coronavirus HKU1 Not Detected (Not Detect); Coronavirus NL 63 Not Detected (Not Detect); Coronavirus OC43 Not Detected (Not Detect); Human Metapneumovirus Not Detected (Not Detect); Human Rhinovirus/Enterovirus Not Detected (Not Detect); Influenza A Not Detected (Not Detect); Influenza B Not Detected (Not Detect); Mycoplasma pneumoniae Not Detected (Not Detect); Parainfluenza Virus 1 Not Detected (Not Detect); Parainfluenza Virus 2 Not Detected (Not Detect); Parainfluenza Virus 3 Not Detected (Not Detect); Parainfluenza Virus 4 Not Detected (Not Detect); Respiratory Syncytial Virus Not Detected (Not Detect); SARS- CoV-2 Not Detected (Not Detecte)
[2024-07-03] MEDS: AMOXICILLIN/CLAV 875/125 MG 1 TAB PO (18:25)
[2024-07-03] MEDS: DOXYCYCLINE HYCLATE 100 MG TABLET PO (18:25)
== END 2024-07-03 18:57 | disposition home or self-care (01) ==
PROVIDERS: Emergency Provider Emergency Medicine; Family Provider Internal Medicine; PCP Physician Assistant Medical
DX: J18.9 Pneumonia, unspecified organism (principal); R06.00 Dyspnea, unspecified; R00.1 Bradycardia, unspecified; R07.9 Chest pain, unspecified
CPT/HCPCS: 36415; 71045; 71250; 80053; 82550; 83690; 83735; 83880; 84484; 85025; 85610; 85730; 87633; 93005; 94640; 96374; 99285; J2919

== ENCOUNTER 2024-07-30 10:26 | Emergency (ER) | payer MEDICARE, OTHER, SELFPAY ==
[2024-01-25 23:22] VITALS: BMI 42.5
[2024-07-30] VITALS (15 sets, daily range): BP systolic 140–211; BP diastolic 65–119; PULSE 61–72; RESP 13–25; TEMP 36.9; O2SAT 93–99; BMI 41.5
--- NOTE | 2024-07-30 10:34 | DI.RAD.S_ITS ---
PROCEDURE: XR CHEST 1V INDICATIONS: Shortness of breath TECHNIQUE: One view of the chest was acquired. COMPARISON: [facility], CR, XR CHEST 1V, 07/03/2024, 11:46. Located Within [facility], CR, XR CHEST 1V, 05/26/2024, 10:24. FINDINGS AND IMPRESSION: Slightly increased interstitial prominence likely atypical infection versus edema. There are likely background fibrotic changes better assessed on CT. Slight nodular area is seen in the right mid lung. Consider future imaging surveillance to assess for resolution. Cardiomegaly. Degenerative osseous changes. Dictated by: Jeramy Wilcox M.D. on 07/30/2024 at 11:06 Approved by: Jeramy Wilcox M.D. on 07/30/2024 at 11:08
--- NOTE | 2024-07-30 10:49 | EKG_ITS ---
[address] [address] Test Date: 2024-07-30 Pat Name: Lida Townsend Department: Room: Gender: Female [employer] Operator: NIKO : 1935 Requested By: Order Number: [id number] Reading MD: Robby Whitney MD Measurements Intervals [place] Rate: 64 P: 56 [place]: 202 QRS: 103 QRSD: 102 T: 33 QT: 466 QTc: 480 Interpretive Statements Normal sinus rhythm Incomplete right bundle branch block Possible Right ventricular hypertrophy NO SIGNIFICANT CHANGE FROM PRIOR TRACING Electronically Signed On 07-30-2024 11:01:42 PDT by Robby Whitney MD
--- NOTE | 2024-07-30 11:03 | ED_ITS ---
HPI - Abdominal Pain General Chief Complaint: Abdominal Pain Stated Complaint: Lower right side stomach pain Time Seen by Provider: 07/30/24 10:53 Source: patient Mode of arrival: Wheelchair History of Present Illness HPI narrative: Patient here with family, daughter at bedside. Complains of onset of pain 3:00 a.m. this morning. Generalized upper lower left and right abdominal pain. Upper and lower back pain as well as chest pain. She has had urinary frequency at nighttime. Patient recently seen here last month for community-acquired pneumonia. Patient is on 3 L nasal cannula continuously at home. This is not new. Patient has had Dilaudid in the past for pain control without difficulty. Related Data Home Medications Medication Instructions Recorded Confirmed aspirin 81 mg tablet,delayed 81 mg PO DAILY ##0 05/14/17 07/03/24 release nitroglycerin 0.4 mg sublingual 1 tab sublingual [id number] PRN Chest 11/18/18 07/03/24 tablet Pain rosuvastatin 40 mg tablet 40 mg PO QPM 11/18/18 07/03/24 escitalopram oxalate 20 mg tablet 20 mg PO DAILY 03/06/21 07/03/24 pantoprazole 40 mg tablet,delayed 40 mg PO DAILY 03/06/21 07/03/24 release furosemide 20 mg tablet 20 mg PO DAILY 01/11/23 07/03/24 metoprolol tartrate 25 mg tablet 12.5 mg PO BID 01/31/24 07/03/24 acetaminophen 300 mg-codeine 30 mg 1 tab PO BID PRN pain 07/03/24 07/03/24 tablet alprazolam 0.5 mg tablet 0.25 mg PO USEASDIRECTD 07/03/24 07/03/24 buspirone 10 mg tablet 10 mg PO BID PRN anxiety 07/03/24 07/03/24 ipratropium 0.5 mg-albuterol 3 mg 3 ml inhalation DIRECTED PRN 07/03/24 07/03/24 (2.5 mg base)/3 mL nebulization sob, wheezing soln ranolazine 500 mg tablet,extended 500 mg PO BID 07/03/24 07/03/24 release,12 hr Previous Rx's Medication Instructions Recorded blood sugar diagnostic (Blood #100 ea 02/01/24 Glucose Test strips) blood-glucose meter (Blood Glucose #1 ea 02/01/24 Monitoring kit) pen needle, diabetic 31 gauge x #100 02/01/24 3/16 (Pen Needle) amoxicillin 875 mg-potassium 1 tab PO BID #14 tabs 07/03/24 clavulanate 125 mg tablet benzonatate 100 mg capsule 100 mg PO TID PRN cough #20 caps 07/03/24 doxycycline monohydrate 100 mg 100 mg PO BID #14 caps 07/03/24 capsule benzonatate 100 mg capsule 100 mg PO TID PRN cough #20 caps 07/30/24 hydrocodone 5 mg-acetaminophen 325 1 tab PO Q8H PRN pain #20 tabs 07/30/24 mg tablet Allergies Allergy/AdvReac Type Severity Reaction Status Date / Time ibuprofen [IBUPROFEN] Allergy Severe Rash Verified 07/30/24 10:31 Iodinated Contrast Media Allergy Severe Unconscious Verified 07/30/24 10:31 [IODINATED CONTRAST- ORAL AND IV DYE] morphine [MORPHINE] Allergy Severe Rash Verified 07/30/24 10:31 naproxen [From ALEVE] Allergy Severe Rash Verified 07/30/24 10:31 telmisartan [TELMISARTAN] Allergy Severe Rash Verified 07/30/24 10:31 Review of Systems Review of Systems Narrative: GENERAL: Negative chills, fatigue, malaise, fever, sweats. HEENT: Negative sinus pain, ear pain, sore throat RESPIRATORY: Positive dyspnea, cough, CARDIOVASCULAR: Negative chest pain, palpitations GASTROINTESTINAL: Negative vomiting, nausea, positive abdominal pain, : Negative dysuria, positive frequency, negative hematuria MUSCULOSKELETAL: Positive muscle or bony pain SKIN: Negative rash, skin lesions NEUROLOGIC: Negative weakness, numbness ROS Unobtainable: All systems reviewed & are unremarkable except as noted in HPI and below Patient History Medical History (Updated 07/30/24 @ 13:57 by Richie Bull MD) Chronic respiratory failure with hypoxia Skin cancer NSTEMI (non-ST elevated myocardial infarction) Diastolic heart failure Cardiac arrest Chest pain Hypertension Hyperlipidemia Coronary artery disease Left hamstring muscle strain UTI (urinary tract infection) Surgical History H/O right heart catheterization History of breast implant removal History of breast surgery History of appendectomy History of cholecystectomy History of total abdominal hysterectomy History of coronary artery stent placement Family History Father Hypertension Diabetes mellitus Mother Hypertension [place] (myocardial infarction) Sister [place] (myocardial infarction) S/P CABG x 4 Social History household members: children Smoking Status: Never smoker Smoking Status: Never smoker alcohol intake frequency: holidays/special occasions only Exam Narrative Exam Narrative: GENERAL: in no distress, not toxic not dyspneic HEAD: Normocephalic. EYES: Pupils equal round ENT: Mucous membranes moist. NECK: Trachea midline. CARDIOVASCULAR: Regular rate and rhythm RESPIRATORY: Clear to auscultation. Breath sounds equal bilaterally. No wheezes, rales, or rhonchi. Reproducible upper chest tenderness on palpation and coughing and movement. GASTROINTESTINAL: Abdomen soft, there is generalized generalized abdominal tenderness upper half lower half and bilaterally. Also bilateral upper and lower back muscle tenderness. Examination of left upper and lower half of the abdomen, no palpable abscess or mass that patient describes on the left side laterally. No peritoneal signs. No pain on portion exam. No guarding no rebound. EXTREMITIES: No gross deformities. BACK: No flank tenderness. However there is diffuse upper and lower back tenderness bilaterally NEURO: AOx4. Clear speech SKIN: Warm and dry PSYCH: Not anxious, is cooperative Initial Vital Signs Initial Vital Signs: Vital Signs Temperature 98.4 F 07/30/24 10:31 Pulse Rate 62 07/30/24 10:31 Respiratory Rate 17 07/30/24 10:31 Blood Pressure 145/66 H 07/30/24 10:31 Pulse Oximetry 96 07/30/24 10:31 Oxygen Delivery Method Room Air 07/30/24 10:31 Course Orders Ordered: Discontinued Medications Hydromorphone HCl (Hydromorphone 0.5 Mg Inj) 0.5 mg IV NOW ONE Stop: 07/30/24 12:23 Last Admin: 07/30/24 12:27 Dose: 0.5 mg Documented By: ANA Vital Signs Vital signs: Vital Signs - 8 hr 07/30/24 10:31 Temperature 98.4 F Pulse Rate 62 Respiratory Rate 17 Blood Pressure 145/66 H Pulse Oximetry 96 Oxygen Delivery Method Room Air MDM - Abdominal Pain Lab Data 07/30/24 11:13 07/30/24 11:13 Labs: Lab Results 03/18/25 03/18/25 Range/Units 10:58 11:13 WBC 8.5 (4.5-11.0) X10^3/uL RBC 5.18 (4.0-5.2) X10^6/uL Hgb 12.1 (12.0-16.0) g/dL Hct 37.8 (36-46) % MCV 73.0 L (80-100) fL MCH 23.3 L (26-34) PG MCHC 31.9 (30-36) % RDW 22.3 H (11.6-14.8) % Plt Count 281 (150-400) X10^3/uL Neut % (Auto) 68.0 (50-75) % Lymph % (Auto) 22.8 L (25-40) % [place] % (Auto) 6.6 (3-14) % Eos % (Auto) 2.1 (2-4) % Baso % (Auto) 0.5 (0-2) % Neut # (Auto) 5800 (7947-7494) /uL Lymph # (Auto) 1900 (2720-6952) /uL [place] # (Auto) 600 (0-900) /uL Eos # (Auto) 200 (0-450) /uL Baso # (Auto) 0 (0-100) /uL RBC Morphology See below Anisocytosis 1+ H Microcytosis 1+ H Ovalocytes 1+ H PT 12.8 H (9.4-12.5) SECONDS INR 1.1 (0.9-1.3) Sodium 136 L (137-145) mmol/L Potassium 4.0 (3.4-5.1) mmol/L Chloride 100 (98-107) mmol/L Carbon Dioxide 28 (22-32) mmol/L BUN 16 (7-17) mg/dL Creatinine 0.95 (0.52-1.04) mg/dL Estimated GFR 58 L (>60) mL/min BUN/Creatinine Ratio 16.8 (6-22) Glucose 129 H (80-110) mg/dL Lactate 2.0 (0.7-2.1) mmol/L Calcium 9.6 (8.4-10.2) mg/dL Total Bilirubin 0.8 (0.2-1.3) mg/dL AST 25 (14-36) IU/L ALT 12 (<35) IU/L Alkaline Phosphatase 65 (38-126) U/L Troponin I 0.017 (0.01-0.034) ng/mL NT-Pro-B Natriuret Pep 699 H (<450) pg/mL Total Protein 7.3 (6.3-8.2) g/dL Albumin 4.2 (3.5-5.0) g/dL Globulin 3.1 (1.7-4.1) g/dL Albumin/Globulin Ratio 1.4 (1.0-2.8) Lipase 131 (23-300) U/L Urine Color Yellow Urine Appearance Clear Urine pH 6.0 (4.5-8.0) Ur Specific [place] 1.010 (1.000-1.035) Urine Protein Negative (Negative) Urine Glucose (UA) Negative (Negative) g/dL Urine Ketones Negative (NEGATIVE) Urine Occult Blood Trace-intact (Negative) Urine Nitrate Negative (Negative) Urine Bilirubin Negative (NEGATIVE) Urine Urobilinogen 0.2 (0.2) E.U./dL Ur Leukocyte Esterase Negative (NEGATIVE) Urine RBC 0-1/hpf (0-5/HPF) Urine WBC None seen (0-5/HPF) Ur Squamous Epith Cells 0-1 /hpf (0-5/HPF) Urine Bacteria None seen (None) Ur Culture Indicated? Cult not indicated Vol Urine Centrifuged 10ml (spun) Imaging Data Chest x-ray: Radiologist's Impression: [address] [address] XRay Report Signed Patient: Lida Townsend MR#: [id number] : 1935 Acct:[id number] Age/Sex: 88 / F Date of Service: 07/30/24 Loc: ED Accession Number: [id number] Procedure: XR chest 1V Ordering Provider: Richie Bull MD PROCEDURE: XR CHEST 1V INDICATIONS: Shortness of breath TECHNIQUE: One view of the chest was acquired. COMPARISON: [facility], CR, XR CHEST 1V, 07/03/2024, 11:46. [facility], CR, XR CHEST 1V, 05/26/2024, 10:24. FINDINGS AND IMPRESSION: Slightly increased interstitial prominence likely atypical infection versus edema. There are likely background fibrotic changes better assessed on CT. Slight nodular area is seen in the right mid lung. Consider future imaging surveillance to assess for resolution. Cardiomegaly. Degenerative osseous changes. Dictated by: Jeramy Wilcox M.D. on 07/30/2024 at 11:06 Approved by: Jeramy Wilcox M.D. on 07/30/2024 at 11:08 CT chest abdomen pelvis: Radiologist's Impression: [address] [address] [address] Scan Report Signed Patient: Lida Townsend MR#: [id number] : 1935 Acct:[id number] Age/Sex: 88 / F Date of Service: 07/30/24 Loc: ED Accession Number: [id number] Procedure: CT chest abd pel wo con Ordering Provider: Richie Bull MD PROCEDURE: CT CHEST ABD PEL WO CON INDICATIONS: Chest pain abdominal pain back pain TECHNIQUE: After the administration of oral contrast, 5 mm thick sections acquired from the lung apices to the symphysis pubis. 5 mm thick coronal and sagittal reformats acquired, with additional 7 mm coronal MIP reformats through the lungs. For radiation dose reduction, the following was used: automated exposure control, adjustment of mA and/or kV according to patient size. COMPARISON: [facility], CT, CT ABDOMEN PELVIS W CON, 02/08/2020, 21:08. [facility], CT, CT CHEST WO CON, 07/03/2024, 16:21. FINDINGS: Image quality: Diagnostic Lungs and pleura: Small bilateral effusions, slightly increased. Background reticular changes and septal thickening in the lungs, similar to prior. Mild basal atelectasis. Mediastinum, heart, and esophagus: Cardiomegaly and coronary calcifications. Small hiatal hernia. There are enlarged mediastinal lymph nodes again seen, for example AP window node measures 1.2 cm in short axis. Chest wall and thyroid: Unremarkable Liver: No contour deforming mass. Solid organs are not well assessed without IV contrast Gallbladder and biliary system: Nondilated biliary system. Gallbladder not seen. Pancreas: No ductal dilation Spleen: Nonenlarged Adrenals: Mild thickening Kidneys: No contour deforming mass or hydronephrosis Vessels and lymph nodes: No abdominal aortic aneurysm. Atherosclerotic calcifications are present. No pathologic lymphadenopathy by size criteria Bowel and peritoneum: No small bowel obstruction. No pathologic ascites. Colonic diverticula are seen. Mild wall thickening is seen at the distal colon. This is likely chronic diverticular disease, consider age-appropriate colonoscopy correlation if indicated. Body wall: Postsurgical changes Pelvis: Bladder is unremarkable. Uterus is absent Bones: Similar small sclerotic lesion of the left iliac. There are degenerative changes. No aggressive appearing focal osseous abnormality. Height loss is seen at multiple vertebral bodies, for example T8, T11, T12. These are similar to prior. IMPRESSION: Small pleural effusions, slightly increased. Background reticular changes and septal thickening, likely fibrosis and edema. Consider future surveillance chest CT. Differential includes atypical infection. Cardiomegaly and coronary calcifications. Enlarged mediastinal lymph nodes again seen, possibly reactive. Attention on follow-up. On this noncontrast CT, no acute intra-abdominal or intrapelvic pathology is identified. Multi vertebral body height loss similar to prior. MRI is more sensitive for acute components if clinically necessary. Other findings above. Dictated by: Jeramy Wilcox M.D. on 07/30/2024 at 11:42 Approved by: Jeramy Wilcox M.D. on 07/30/2024 at 11:49 [facility] Narrative Medical decision making narrative: Patient here with family, daughter at bedside. Complains of onset of pain 3:00 a.m. this morning. Generalized upper lower left and right abdominal pain. Upper and lower back pain as well as chest pain. She has had urinary frequency at nighttime. Patient recently seen here last month for community-acquired pneumonia. Patient is on 3 L nasal cannula continuously at home. This is not new. Patient has had Dilaudid in the past for pain control without difficulty. After history and exam, CBC CMP lipase troponin EKG CT chest abdomen pelvis Dilaudid Zofran urinalysis, patient does have reproducible generalized abdominal tenderness/pain [facility] Medical records reviewed: No recent visit for this complaint Differential considered: Includes but not limited to STEMI non-STEMI pneumonia aortic dissection appendicitis pancreatitis cholelithiasis UTI sepsis Lab Test results independently reviewed as above. Pertinent findings: WBC 8.5 hemoglobin 12.1 INR 1.1 sodium 136 potassium 4.0 BUN 16 creatinine 0.95 GFR 58 glucose 129 AST 25 ALT 12 troponin 0.017 BNP 699 lipase 131 urinalysis negative ketones negative nitrate negative leukocyte esterase Independently reviewed EKG normal sinus rhythm rate [address] elevation or depression Imaging studies independently reviewed: Chest x-ray and CT chest abdomen pelvis no acute finding Consultations: None indicated Treatments: Dilaudid Re-evaluations: 2:00 p.m.. Updated patient and family at bedside results. Pain is controlled. Review with her likely from her pneumonia and frequent coughing that she has strained her abdominal muscles back muscles and chest wall muscles as they are reproducible on exam. Prescription for hydrocodone, patient has had before without difficulty has been provided for pain. Tessurya Cueto prescribed as well. She agrees with treatment plan. They desire discharge home. Discussion: Appropriate for discharge home exam is reassuring. Return precautions reviewed with patient. Nontoxic at discharge. Patient is on baseline home oxygen not requiring more. Pain is controlled. No antibiotics are indicated. Patient is still finishing up her antibiotics for pneumonia. She desires discharge home. BNP and laboratory studies are essentially at baseline. No diuretics or indicated at this time. Clinically not CHF exacerbation. Diagnosis: Muscle strain Discharge Plan Departure Patient Disposition: Home Clinical Impression: Muscle strain Instructions: DI for Abdominal Muscle Strain Activity Restrictions/Additional Instructions: Your exam and laboratory studies imaging studies are reassuring. Your generalized abdominal pain back pain chest pain is reproducible and likely from the frequent coughing that you are having while being treated for pneumonia. Please complete the prescription antibiotics for the pneumonia. Short course of pain medication has been provided for you to help for the discomfort. Continue home medications. Return if worse if any questions or concerns. Continue home breathing treatments. Prescriptions: New hydrocodone-acetaminophen 5-325 mg tablet 1 tab PO Q8H PRN (Reason: pain) Qty: 20 0RF benzonatate 100 mg capsule 100 mg PO TID PRN (Reason: cough) Qty: 20 0RF No Action aspirin 81 MG tablet,delayed release (DR/EC) 81 mg PO DAILY Qty: 0 pantoprazole 40 mg Tablet,Delayed Release (Dr/Ec) 40 mg PO DAILY escitalopram oxalate 20 mg Tablet 20 mg PO DAILY furosemide 20 mg tablet 20 mg PO DAILY metoprolol tartrate 25 mg tablet 12.5 mg PO BID Rx Instructions: 1/2 tablet = 12.5 mg BID - AM & PM (DME) pen needle, diabetic [Pen Needle] 31 gauge x 3/16 needle See Rx Instructions .Route Qty: 100 0RF Rx Instructions: Once daily with insulin pen needle (DME) blood-glucose meter [Blood Glucose Monitoring] Kit See Rx Instructions .Route Qty: 1 0RF Rx Instructions: One blood glucose meter (DME) Blood Glucose Test Strip See Rx Instructions .Route Qty: 100 0RF Rx Instructions: Check glucose 3-4 times daily, in AM and before meals nitroglycerin 0.4 mg tablet, sublingual 1 tab sublingual [id number] PRN (Reason: Chest Pain) Patient Comments: take it when needed, last dose unknown rosuvastatin 40 mg tablet 40 mg PO QPM acetaminophen-codeine 300-30 mg tablet 1 tab PO BID PRN (Reason: pain) alprazolam 0.5 mg tablet 0.25 mg PO USEASDIRECTD Patient Comments: take 1/2 tablet by mouth EN ROUTE TO CARDIAC IMAGING take ANOTHER... (REFER TO PRESCRIPTION NOTES). Rx Instructions: take 1/2 tablet by mouth EN ROUTE TO CARDIAC IMAGING take ipratropium-albuterol 0.5 mg-3 mg(2.5 mg base)/3 mL solution for nebulization 3 ml inhalation DIRECTED PRN (Reason: sob, wheezing) buspirone 10 mg tablet 10 mg PO BID PRN (Reason: anxiety) Rx Instructions: has not taken yet 07/03/24 --RN ranolazine 500 mg tablet extended release 12 hr 500 mg PO BID benzonatate 100 mg capsule 100 mg PO TID PRN (Reason: cough) Qty: 20 0RF doxycycline monohydrate 100 mg capsule 100 mg PO BID Qty: 14 0RF amoxicillin-pot clavulanate 875-125 mg tablet 1 tab PO BID Qty: 14 0RF Referrals: Zoe Bass PA-C [Primary Care Provider] - Stand Alone Forms: Patient Portal/API/Survey
--- NOTE | 2024-07-30 11:07 | DI.CT.S_ITS ---
PROCEDURE: CT CHEST ABD PEL WO CON INDICATIONS: Chest pain abdominal pain back pain TECHNIQUE: After the administration of oral contrast, 5 mm thick sections acquired from the lung apices to the symphysis pubis. 5 mm thick coronal and sagittal reformats acquired, with additional 7 mm coronal MIP reformats through the lungs. For radiation dose reduction, the following was used: automated exposure control, adjustment of mA and/or kV according to patient size. COMPARISON: [facility], CT, CT ABDOMEN PELVIS W CON, 02/08/2020, 21:08. [facility], CT, CT CHEST WO CON, 07/03/2024, 16:21. FINDINGS: Image quality: Diagnostic Lungs and pleura: Small bilateral effusions, slightly increased. Background reticular changes and septal thickening in the lungs, similar to prior. Mild basal atelectasis. Mediastinum, heart, and esophagus: Cardiomegaly and coronary calcifications. Small hiatal hernia. There are enlarged mediastinal lymph nodes again seen, for example AP window node measures 1.2 cm in short axis. Chest wall and thyroid: Unremarkable Liver: No contour deforming mass. Solid organs are not well assessed without IV contrast Gallbladder and biliary system: Nondilated biliary system. Gallbladder not seen. Pancreas: No ductal dilation Spleen: Nonenlarged Adrenals: Mild thickening Kidneys: No contour deforming mass or hydronephrosis Vessels and lymph nodes: No abdominal aortic aneurysm. Atherosclerotic calcifications are present. No pathologic lymphadenopathy by size criteria Bowel and peritoneum: No small bowel obstruction. No pathologic ascites. Colonic diverticula are seen. Mild wall thickening is seen at the distal colon. This is likely chronic diverticular disease, consider age-appropriate colonoscopy correlation if indicated. Body wall: Postsurgical changes Pelvis: Bladder is unremarkable. Uterus is absent Bones: Similar small sclerotic lesion of the left iliac. There are degenerative changes. No aggressive appearing focal osseous abnormality. Height loss is seen at multiple vertebral bodies, for example T8, T11, T12. These are similar to prior. IMPRESSION: Small pleural effusions, slightly increased. Background reticular changes and septal thickening, likely fibrosis and edema. Consider future surveillance chest CT. Differential includes atypical infection. Cardiomegaly and coronary calcifications. Enlarged mediastinal lymph nodes again seen, possibly reactive. Attention on follow-up. On this noncontrast CT, no acute intra-abdominal or intrapelvic pathology is identified. Multi vertebral body height loss similar to prior. MRI is more sensitive for acute components if clinically necessary. Other findings above. Dictated by: Jeramy Wilcox M.D. on 07/30/2024 at 11:42 Approved by: Jeramy Wilcox M.D. on 07/30/2024 at 11:49
[2024-07-30 11:16] LABS: Appearance Urine UA CLEAR; Bilirubin Urine UA NEGATIVE (NEGATIVE); Color Urine UA YELLOW; Glucose Urine UA NEGATIVE (Negative); Ketones Urine UA NEGATIVE (NEGATIVE); Leukocyte Esterase Urine UA NEGATIVE (NEGATIVE); Nitrite Urine UA NEGATIVE (Negative); Occult Blood Urine UA TRACE-INTACT (Negative); Protein Urine UA NEGATIVE (Negative); Urobilinogen Urine UA 0.2 E.U./dL (0.2)
[2024-07-30 11:24] LABS: Add Manual Diff / Slide Review NO; Basophils Absolute Auto 0 /uL (0-100); Basophils Percent Auto 0.5 % (0-2); Eosinophils Absolute Auto 200 /uL (0-450); Eosinophils Percent Auto 2.1 % (2-4); Hematocrit 37.8 % (36-46); Hemoglobin 12.1 g/dL (12.0-16.0); Lymphocytes Absolute Auto 1900 /uL (1100-4500); Lymphocytes Percent Auto 22.8 % (25-40); Mean Corpuscular HGB Conc 31.9 % (30-36); Mean Corpuscular Hemoglobin 23.3 PG (26-34); Monocytes Absolute Auto 600 /uL (0-900); Monocytes Percent Auto 6.6 % (3-14); Neutrophils Absolute Auto 5800 /uL (1500-7000); Platelet Count 281 X10^3/uL (150-400); Red Blood Cell Count 5.18 X10^6/uL (4.0-5.2); Red Cell Distribution Width 22.3 % (11.6-14.8); White Blood Cell Count 8.5 X10^3/uL (4.5-11.0)
[2024-07-30 11:28] LABS: INR 1.1 (0.9-1.3); Prothrombin Time 12.8 SECONDS (9.4-12.5)
[2024-07-30 11:29] LABS: Bacteria Urine None Seen; Culture Indicated Urine Cult Not Indicated; RBC Urine 0-1/HPF (0-5/HPF); Squamous Epithelial Cell Urine 0-1 /HPF (0-5/HPF); Urine Volume 10mL (spun); WBC Urine None Seen (0-5/HPF)
[2024-07-30 11:34] LABS: Lipase 131 U/L (23-300)
[2024-07-30 11:35] LABS: Alanine Aminotransferase 12 IU/L (<35); Albumin 4.2 g/dL (3.5-5.0); Albumin Globulin Ratio 1.4 (1.0-2.8); Alkaline Phosphatase 65 U/L (38-126); Aspartate Aminotransferase 25 IU/L (14-36); BUN Creatinine Ratio 16.8 (6-22); Bilirubin Total 0.8 mg/dL (0.2-1.3); Blood Urea Nitrogen 16 mg/dL (7-17); Calcium 9.6 mg/dL (8.4-10.2); Carbon Dioxide 28 mmol/L (22-32); Chloride 100 mmol/L (98-107); Estimated Glomerular Filt Rate 58 mL/min (>60); Globulin 3.1 g/dL (1.7-4.1); Glucose 129 mg/dL (80-110); HEMOLYSIS < 15 (0-50); Sodium 136 mmol/L (137-145); Total Protein 7.3 g/dL (6.3-8.2)
[2024-07-30 11:42] LABS: Anisocytosis 1+; Microcytosis 1+; Ovalocytes 1+
[2024-07-30 11:46] LABS: NT-proBNP (BNP-Adult 18+) 699 pg/mL (<450); Troponin I 0.017 ng/mL (0.01-0.034)
[2024-07-30] MEDS: HYDROMORPHONE 0.5 MG INJ IV (12:27)
== END 2024-07-30 14:55 | disposition home or self-care (01) ==
PROVIDERS: Emergency Provider Emergency Medicine; Family Provider Internal Medicine; PCP Physician Assistant Medical
DX: S39.011A Strain of muscle, fascia and tendon of abdomen, initial encounter (principal); M54.6 Pain in thoracic spine; M54.50 Low back pain, unspecified; R07.9 Chest pain, unspecified; R10.12 Left upper quadrant pain; R10.11 Right upper quadrant pain; R06.02 Shortness of breath; I45.10 Unspecified right bundle-branch block
CPT/HCPCS: 36415; 71045; 71250; 74176; 80053; 81001; 83605; 83690; 83880; 84484; 85025; 85610; 93005; 93010; 96374; 99284; J1171

== ENCOUNTER 2024-08-06 14:24 | Emergency (ER) | payer MEDICARE, OTHER, SELFPAY ==
[2024-01-25 23:22] VITALS: BMI 42.5
[2024-08-06] VITALS (14 sets, daily range): BP systolic 113–228; BP diastolic 59–115; PULSE 64–84; RESP 13–23; TEMP 36.6; O2SAT 94–99; BMI 41.5
--- NOTE | 2024-08-06 14:55 | DI.RAD.S_ITS ---
PROCEDURE: XR CHEST 1V INDICATIONS: Shortness of breath TECHNIQUE: One view of the chest was acquired. COMPARISON: [facility], CT, CT CHEST ABD PEL WO CON, 07/30/2024, 11:21. [facility], CR, XR CHEST 1V, 07/30/2024, 10:44. [facility], CR, XR CHEST 1V, 07/03/2024, 11:46. FINDINGS: Surgical changes and devices: None. Lungs and pleura: Increased pulmonary markings. Peribronchial cuffing. New hazy right upper lung zone opacity. Mediastinum: Mediastinal contours appear normal. Heart size is normal. Bones and chest wall: No suspicious bony lesions. Overlying soft tissues appear unremarkable. IMPRESSION: Mild pulmonary edema. New hazy right upper lung zone opacity, could represent artifact or developing infection. Dictated by: Grady Dela Cruz M.D. on 08/06/2024 at 15:12 Approved by: Grady Dela Cruz M.D. on 08/06/2024 at 15:14
--- NOTE | 2024-08-06 15:54 | EKG_ITS ---
[address] [address] Test Date: 2024-08-06 Pat Name: Lida Townsend Department: Room: Gender: Female Leather [employer]: NIKO : 1935 Requested By: Order Number: [id number] Reading MD: Robby Whitney MD Measurements Intervals [place] Rate: 68 P: 87 IA: 202 QRS: 103 QRSD: 100 T: 25 QT: 472 QTc: 501 Interpretive Statements Normal sinus rhythm Incomplete right bundle branch block Possible Right ventricular hypertrophy Prolonged QT NO SIGNIFICANT CHANGE FROM PRIOR TRACING Electronically Signed On 08-07-2024 6:43:18 PDT by Robby Whitney MD
[2024-08-06 15:59] LABS: Add Manual Diff / Slide Review NO; Basophils Absolute Auto 100 /uL (0-100); Basophils Percent Auto 0.8 % (0-2); Eosinophils Absolute Auto 100 /uL (0-450); Eosinophils Percent Auto 1.5 % (2-4); Hematocrit 37.4 % (36-46); Hemoglobin 11.8 g/dL (12.0-16.0); Lymphocytes Absolute Auto 2500 /uL (1100-4500); Lymphocytes Percent Auto 26.7 % (25-40); Mean Corpuscular HGB Conc 31.6 % (30-36); Mean Corpuscular Hemoglobin 23.2 PG (26-34); Mean Corpuscular Volume 73.4 fL (80-100); Monocytes Absolute Auto 800 /uL (0-900); Monocytes Percent Auto 8.8 % (3-14); Neutrophils Absolute Auto 5800 /uL (1500-7000); Neutrophils Percent Auto 62.2 % (50-75); Platelet Count 252 X10^3/uL (150-400); Red Blood Cell Count 5.09 X10^6/uL (4.0-5.2); Red Cell Distribution Width 22.4 % (11.6-14.8); White Blood Cell Count 9.3 X10^3/uL (4.5-11.0)
[2024-08-06 16:06] LABS: INR 1.1 (0.9-1.3); Prothrombin Time 12.6 SECONDS (9.4-12.5)
[2024-08-06 16:11] LABS: Alanine Aminotransferase 11 IU/L (<35); Albumin 3.9 g/dL (3.5-5.0); Albumin Globulin Ratio 1.3 (1.0-2.8); Alkaline Phosphatase 38 U/L (38-126); Aspartate Aminotransferase 32 IU/L (14-36); BUN Creatinine Ratio 27.8 (6-22); Bilirubin Total 0.6 mg/dL (0.2-1.3); Blood Urea Nitrogen 27 mg/dL (7-17); Calcium 9.7 mg/dL (8.4-10.2); Carbon Dioxide 27 mmol/L (22-32); Chloride 101 mmol/L (98-107); Estimated Glomerular Filt Rate 57 mL/min (>60); Glucose 133 mg/dL (80-110); HEMOLYSIS 77 (0-50); Lactate (Lactic Acid) 1.5 mmol/L (0.7-2.1); Potassium 4.3 mmol/L (3.4-5.1); Sodium 136 mmol/L (137-145); Total Protein 6.9 g/dL (6.3-8.2)
[2024-08-06 16:22] LABS: NT-proBNP (BNP-Adult 18+) 659 pg/mL (<450)
[2024-08-06 16:23] LABS: Anisocytosis 2+; Microcytosis 1+; Platelet Estimate Adequate on smear
--- NOTE | 2024-08-06 18:09 | ED_ITS ---
HPI - SOB/Dyspnea General Chief Complaint: Shortness of Breath/Dyspnea Stated Complaint: ER return, SOB; back, leg and arm pain Time Seen by Provider: 08/06/24 17:53 History of Present Illness HPI Narrative: Patient is an 88-year-old female with a history of anemia, diastolic heart failure, chronic respiratory failure with hypoxia, coronary artery disease, and recurrent UTIs who presents with worsening shortness of breath. The patient reports that she was diagnosed with pneumonia a couple of weeks ago and completed a course of antibiotics, but her symptoms have not improved. She is on home oxygen at 3 liters per minute. She also reports leg pain and increased swelling in her legs. She denies chest pain, fever, chills, or recent exposure to COVID-19 or flu. Her blood pressure is usually around 160/70-80 mmHg, and she takes multiple medications including aspirin, metoprolol, and Lasix. Medications: Aspirin, metoprolol, Lasix, antibiotics (specifics unknown). Allergies: None mentioned. Past Medical History: Anemia, diastolic heart failure, chronic respiratory failure with hypoxia, coronary artery disease, recurrent UTIs. Surgical History: Six stents placed in the heart. Related Data Home Medications Medication Instructions Recorded Confirmed aspirin 81 mg tablet,delayed 81 mg PO DAILY ##0 05/14/17 07/03/24 release nitroglycerin 0.4 mg sublingual 1 tab sublingual [id number] PRN Chest 11/18/18 07/03/24 tablet Pain rosuvastatin 40 mg tablet 40 mg PO QPM 11/18/18 07/03/24 escitalopram oxalate 20 mg tablet 20 mg PO DAILY 03/06/21 07/03/24 pantoprazole 40 mg tablet,delayed 40 mg PO DAILY 03/06/21 07/03/24 release furosemide 20 mg tablet 20 mg PO DAILY 01/11/23 07/03/24 metoprolol tartrate 25 mg tablet 12.5 mg PO BID 01/31/24 07/03/24 acetaminophen 300 mg-codeine 30 mg 1 tab PO BID PRN pain 07/03/24 07/03/24 tablet alprazolam 0.5 mg tablet 0.25 mg PO USEASDIRECTD 07/03/24 07/03/24 buspirone 10 mg tablet 10 mg PO BID PRN anxiety 07/03/24 07/03/24 ipratropium 0.5 mg-albuterol 3 mg 3 ml inhalation DIRECTED PRN 07/03/24 07/03/24 (2.5 mg base)/3 mL nebulization sob, wheezing soln ranolazine 500 mg tablet,extended 500 mg PO BID 07/03/24 07/03/24 release,12 hr Previous Rx's Medication Instructions Recorded blood sugar diagnostic (Blood #100 ea 02/01/24 Glucose Test strips) blood-glucose meter (Blood Glucose #1 ea 02/01/24 Monitoring kit) pen needle, diabetic 31 gauge x #100 ea 02/01/2407/28 (Pen Needle) amoxicillin 875 mg-potassium 1 tab PO BID #14 tabs 07/03/24 clavulanate 125 mg tablet benzonatate 100 mg capsule 100 mg PO TID PRN cough #20 caps 07/03/24 doxycycline monohydrate 100 mg 100 mg PO BID #14 caps 07/03/24 capsule benzonatate 100 mg capsule 100 mg PO TID PRN cough #20 caps 07/30/24 hydrocodone 5 mg-acetaminophen 325 1 tab PO Q8H PRN pain #20 tabs 07/30/24 mg tablet amoxicillin 875 mg-potassium 1 tab PO BID #14 tabs 08/06/24 clavulanate 125 mg tablet doxycycline hyclate 100 mg capsule 100 mg PO BID #14 caps 08/06/24 Allergies Allergy/AdvReac Type Severity Reaction Status Date / Time ibuprofen [IBUPROFEN] Allergy Severe Rash Verified 07/30/24 10:31 Iodinated Contrast Media Allergy Severe Unconscious Verified 07/30/24 10:31 [IODINATED CONTRAST- ORAL AND IV DYE] morphine [MORPHINE] Allergy Severe Rash Verified 07/30/24 10:31 naproxen [From ALEVE] Allergy Severe Rash Verified 07/30/24 10:31 telmisartan [TELMISARTAN] Allergy Severe Rash Verified 07/30/24 10:31 Review of Systems Review of Systems ROS Unobtainable: All systems reviewed & are unremarkable except as noted in HPI and below Patient History Medical History (Updated 08/06/24 @ 21:51 by Volodymyr Gonzales MD) Chronic respiratory failure with hypoxia Skin cancer NSTEMI (non-ST elevated myocardial infarction) Diastolic heart failure Cardiac arrest Chest pain Hypertension Hyperlipidemia Coronary artery disease Left hamstring muscle strain UTI (urinary tract infection) Surgical History H/O right heart catheterization History of breast implant removal History of breast surgery History of appendectomy History of cholecystectomy History of total abdominal hysterectomy History of coronary artery stent placement Family History Father Hypertension Diabetes mellitus Mother Hypertension [place] (myocardial infarction) Sister [place] (myocardial infarction) S/P CABG x 4 Social History household members: children Smoking Status: Never smoker Smoking Status: Never smoker alcohol intake frequency: holidays/special occasions only Exam Narrative Exam Narrative: General: Alert and oriented. Skin: Good turgor, no rash, unusual bruising or prominent lesions. Head: Normocephalic, atraumatic. HEENT: Conjunctiva clear, EOM intact, PERRL, Mucous membranes moist. Neck: Supple, normal ROM. Heart: Regular rate and rhythm, no murmur or gallop or rubs. Lungs: Clear to auscultation bilaterally. Abdomen: Soft and non-tender. Back: Spine normal without deformity or tenderness, no CVA tenderness. Extremities: Evidence of edema in bilateral lower extremities, non-pitting, symmetric, with no overlying erythema. Peripheral pulses intact. Neurologic: CN 2-12 normal. Normal sensation and motor exam. Psychiatric: Oriented X3. Normal mood and affect. Initial Vital Signs Initial Vital Signs: Vital Signs Temperature 97.8 F 08/06/24 14:52 Pulse Rate 64 08/06/24 14:52 Respiratory Rate 20 08/06/24 14:52 Blood Pressure 113/59 L 08/06/24 14:52 Pulse Oximetry 95 08/06/24 14:52 Oxygen Delivery Method Room Air 08/06/24 14:52 Scores CURB-65 Confusion: No BUN >19mg/dL (>7mmol/L): Yes Respiratory rate greater or equal to 30: No SBP <90mmHg or DBP less or equal to 60mmHg: No Age 65 or Older: Yes CURB-65 Total: 2 Score 0-1 Outpatient care, Score 2 Inpt vs. Obs, Score 3 or over Inpt admit with ICU for score of 4-5 Course Orders Ordered: ED Orders 08/06/24 18:35 Covid-19 + FLU A/B + RSV - PCR Stat Discontinued Medications Albuterol/Ipratropium (Albuterol/Ipratropium 3 Ml Ampul) 3 ml INH NOW ONE Stop: 08/06/24 18:10 Last Admin: 08/06/24 18:47 Dose: 3 ml Documented By: VINCE Amoxicillin/Clavulanate Potassium (Amoxicillin/Clav 875/125 Mg) 1 tab PO NOW ONE Stop: 08/06/24 18:17 Last Admin: 08/06/24 18:40 Dose: 1 tab Documented By: JAZMINE Doxycycline Hyclate (Doxycycline Hyclate 100 Mg Tablet) 100 mg PO NOW ONE Stop: 08/06/24 18:17 Last Admin: 08/06/24 18:40 Dose: 100 mg Documented By: JAZMINE Furosemide (Furosemide 40 Mg/4 Ml Vial) 40 mg IV NOW ONE Stop: 08/06/24 18:07 Last Admin: 08/06/24 18:40 Dose: 40 mg Documented By: JAZMINE Ketorolac Tromethamine (Ketorolac 30 Mg/Ml Vial) 15 mg IV NOW ONE Stop: 08/06/24 19:15 Last Admin: 08/06/24 19:21 Dose: 15 mg Documented By: JAZMINE Vital Signs Vital signs: Vital Signs - 8 hr 08/06/24 19:01 08/06/24 19:31 08/06/24 20:01 Pulse Rate 71 74 76 Respiratory Rate 13 16 18 Blood Pressure 213/83 H 207/88 H 177/75 H Pulse Oximetry 97 99 98 Oxygen Delivery Method Oxygen Flow Rate 08/06/24 20:30 08/06/24 21:01 08/06/24 21:30 Pulse Rate 78 78 77 Respiratory Rate 23 20 20 Blood Pressure 190/76 H 176/72 H 163/70 H Pulse Oximetry 98 99 98 Oxygen Delivery Method Nasal Cannula Oxygen Flow Rate 3 08/06/24 21:49 Pulse Rate 84 Respiratory Rate 20 Blood Pressure Pulse Oximetry 94 Oxygen Delivery Method Oxygen Flow Rate MDM - SOB/Dyspnea Differential Diagnosis Differential diagnosis: Likely acute exacerbation of chronic obstructive airways disease, community acquired pneumonia and asthma with exacerbation Medical Records Attestation: I reviewed the patient's medical records. Medical records narrative: Reviewed patient's most recent ED visit and discharged with Augmentin doxycycline, patient improved initially with this antibiotic regimen Lab Data Attestation: I reviewed the patient's lab results. Lab results narrative: Patient's labs are overall reassuring white blood cell count 9.3, hemoglobin 11.8. Patient has no significant electrolyte abnormalities requiring ED intervention. BUN creatinine do not appear to be significantly changed from prior and has overall good renal function. Patient's troponin found to be below threshold of normal, BNP only mildly elevated consistent with her previous BNP levels -COVID influenza testing negative 08/06/24 15:50 08/06/24 15:50 Labs: Lab Results 08/06/24 08/06/24 Range/Units 15:50 18:35 WBC 9.3 (4.5-11.0) X10^3/uL RBC 5.09 (4.0-5.2) X10^6/uL Hgb 11.8 L (12.0-16.0) g/dL Hct 37.4 (36-46) % MCV 73.4 L (80-100) fL MCH 23.2 L (26-34) PG MCHC 31.6 (30-36) % RDW 22.4 H (11.6-14.8) % Plt Count 252 (150-400) X10^3/uL Neut % (Auto) 62.2 (50-75) % Lymph % (Auto) 26.7 (25-40) % [place] % (Auto) 8.8 (3-14) % Eos % (Auto) 1.5 L (2-4) % Baso % (Auto) 0.8 (0-2) % Neut # (Auto) 5800 (2982-1964) /uL Lymph # (Auto) 2500 (7741-7564) /uL [place] # (Auto) 800 (0-900) /uL Eos # (Auto) 100 (0-450) /uL Baso # (Auto) 100 (0-100) /uL Platelet Estimate Adequate on smear RBC Morphology See below Anisocytosis 2+ H Microcytosis 1+ H PT 12.6 H (9.4-12.5) SECONDS INR 1.1 (0.9-1.3) Sodium 136 L (137-145) mmol/L Potassium 4.3 (3.4-5.1) mmol/L Chloride 101 (98-107) mmol/L Carbon Dioxide 27 (22-32) mmol/L BUN 27 H (7-17) mg/dL Creatinine 0.97 (0.52-1.04) mg/dL Estimated GFR 57 L (>60) mL/min BUN/Creatinine Ratio 27.8 H (6-22) Glucose 133 H (80-110) mg/dL Lactate 1.5 (0.7-2.1) mmol/L Calcium 9.7 (8.4-10.2) mg/dL Total Bilirubin 0.6 (0.2-1.3) mg/dL AST 32 (14-36) IU/L ALT 11 (<35) IU/L Alkaline Phosphatase 38 (38-126) U/L Troponin I 0.020 (0.01-0.034) ng/mL NT-Pro-B Natriuret Pep 659 H (<450) pg/mL Total Protein 6.9 (6.3-8.2) g/dL Albumin 3.9 (3.5-5.0) g/dL Globulin 3.0 (1.7-4.1) g/dL Albumin/Globulin Ratio 1.3 (1.0-2.8) SARS-CoV-2 (PCR) Negative (Negative) Influenza A (RT-PCR) Flu a negative (NEGATIVE) Influenza B (RT-PCR) Flu b negative (NEGATIVE) RSV (PCR) Negative (Negative) Imaging Data Chest x-ray: My Impression: Appears to show signs of mild pulmonary edema, potential consolidation Radiologist's Impression: Radiology report confirms small amount of volume and potential developing infection in the right upper lobe. ECG Data Attestation: I personally reviewed and interpreted this ECG as follows: Interpretation: Patient's EKGs shows rate of 68 appears to be normal sinus rhythm, NE interval is 202, QTC 501, no dropped beats no signs of significant arrhythmia no ST segment elevation or depression meeting STEMI criteria. No previous for comparison no signs of acute right heart strain no signs of acute ischemia MDM Narrative Medical decision making narrative: 88-year-old female with chronic lung disease, heart failure, cardiac stents and recent treatment for pneumonia presenting secondary to ongoing shortness of breath on her 3 L nasal cannula which is her home baseline. INITIAL EVALUATION AND PLAN: - Administer IV Lasix to reduce fluid overload and manage blood pressure. - Review and possibly adjust current antibiotic regimen to address persistent pneumonia. - Follow up with primary care physician for ongoing management. - Monitor response to Lasix and reassess fluid status and blood pressure. - Consider potential heart failure exacerbation and manage accordingly. Differential diagnosis includes but is not limited to: CHF exacerbation, pneumonia, pneumothorax, COPD or asthma exacerbation, pulmonary embolism Patient presents alert and in no acute distress she is hypertensive with systolics in the low 200s, states that she usually runs in the 160s to 200 range, no missed doses of her home medications. Patient takes 20 of Lasix daily has not double doses recently or missed any doses recently. Given good kidney function signs of mild volume overload will give 40 of IV Lasix in order to help with blood pressure and volume. Patient's chest x-ray with signs of potential pneumonia patient subjectively feeling body aches fevers chills. We will obtain COVID and influenza panel as well as plan to treat for a community-acquired pneumonia. Patient is lower risk via curb 65 is at her baseline oxygen requirement and I do not believe requires emergent hospital admission at this time -patient had good diuresis after IV Lasix approximately 650 cc of urine out while in the ED, was able to ambulate without significant desaturations and states that she is feeling clinically better after dose of Toradol and antibiotics. We discussed return precautions to the emergency department she was prescribed antibiotics for presumed pneumonia instructed to follow up with her primary care doctor for re-evaluation as soon as possible. We discussed speaking with her primary care team about her current dose of furosemide and whether or not she needs to go up. -patient's blood pressure improved after Lasix administration the clinic the patient is feeling better -low suspicion for ACS given negative troponin, negative BNP, nonischemic EKG, low suspicion for PE given an alternative source and pulmonary embolisms signs of volume overload no pleuritic chest pain she is not significantly tachypneic or hypoxic at this time over her baseline. Her lower extremity edema symmetric in more consistent with volume overload than clot. Discharge Plan Departure Patient Disposition: Home Clinical Impression: CHF (congestive heart failure), Pneumonia Instructions: DI for Cough -- Adult Activity Restrictions/Additional Instructions: You were seen in the emergency department and found to likely have a developing pneumonia which may be causing some of your symptoms please take antibiotics as prescribed, please also talk to your primary care doctor about whether or not you need to go on a higher dose of her Lasix as you have some evidence of volume overload as well. Prescriptions: New amoxicillin-pot clavulanate 875-125 mg tablet 1 tab PO BID Qty: 14 0RF doxycycline hyclate 100 mg capsule 100 mg PO BID Qty: 14 0RF No Action aspirin 81 MG tablet,delayed release (DR/EC) 81 mg PO DAILY Qty: 0 pantoprazole 40 mg Tablet,Delayed Release (Dr/Ec) 40 mg PO DAILY escitalopram oxalate 20 mg Tablet 20 mg PO DAILY furosemide 20 mg tablet 20 mg PO DAILY metoprolol tartrate 25 mg tablet 12.5 mg PO BID Rx Instructions: 1/2 tablet = 12.5 mg BID - AM & PM (DME) pen needle, diabetic [Pen Needle] 31 gauge x 3/16 needle See Rx Instructions .Route Qty: 100 0RF Rx Instructions: Once daily with insulin pen needle (DME) blood-glucose meter [Blood Glucose Monitoring] Kit See Rx Instructions .Route Qty: 1 0RF Rx Instructions: One blood glucose meter (DME) Blood Glucose Test Strip See Rx Instructions .Route Qty: 100 0RF Rx Instructions: Check glucose 3-4 times daily, in AM and before meals nitroglycerin 0.4 mg tablet, sublingual 1 tab sublingual [id number] PRN (Reason: Chest Pain) Patient Comments: take it when needed, last dose unknown rosuvastatin 40 mg tablet 40 mg PO QPM acetaminophen-codeine 300-30 mg tablet 1 tab PO BID PRN (Reason: pain) alprazolam 0.5 mg tablet 0.25 mg PO USEASDIRECTD Patient Comments: take 1/2 tablet by mouth EN ROUTE TO CARDIAC IMAGING take ANOTHER... (REFER TO PRESCRIPTION NOTES). Rx Instructions: take 1/2 tablet by mouth EN ROUTE TO CARDIAC IMAGING take ipratropium-albuterol 0.5 mg-3 mg(2.5 mg base)/3 mL solution for nebulization 3 ml inhalation DIRECTED PRN (Reason: sob, wheezing) buspirone 10 mg tablet 10 mg PO BID PRN (Reason: anxiety) Rx Instructions: has not taken yet 07/03/24 LESLEY--RN ranolazine 500 mg tablet extended release 12 hr 500 mg PO BID benzonatate 100 mg capsule 100 mg PO TID PRN (Reason: cough) Qty: 20 0RF doxycycline monohydrate 100 mg capsule 100 mg PO BID Qty: 14 0RF amoxicillin-pot clavulanate 875-125 mg tablet 1 tab PO BID Qty: 14 0RF hydrocodone-acetaminophen 5-325 mg tablet 1 tab PO Q8H PRN (Reason: pain) Qty: 20 0RF benzonatate 100 mg capsule 100 mg PO TID PRN (Reason: cough) Qty: 20 0RF Referrals: Zoe Bass PA-C [Primary Care Provider] - Stand Alone Forms: Patient Portal/API/Survey
[2024-08-06] MEDS: AMOXICILLIN/CLAV 875/125 MG 1 TAB PO (18:40)
[2024-08-06] MEDS: FUROSEMIDE 40 MG/4 ML VIAL IV (18:40)
[2024-08-06] MEDS: DOXYCYCLINE HYCLATE 100 MG TABLET PO (18:40)
[2024-08-06] MEDS: ALBUTEROL/IPRATROPIUM 3 ML AMPUL INH (18:47)
[2024-08-06 19:20] LABS: Influenza A - CEPHEID Flu A NEGATIVE (NEGATIVE); Influenza B - CEPHEID Flu B NEGATIVE (NEGATIVE); Respiratory Syncytial Virus Negative (Negative)
[2024-08-06] MEDS: KETOROLAC 30 MG/ML VIAL 15 MG IV (19:21)
[2024-08-06 19:22] LABS: COVID-19 CEPHEID 4-PLEX PCR Negative (Negative)
== END 2024-08-06 22:01 | disposition home or self-care (01) ==
PROVIDERS: Family Medicine; Emergency Provider Emergency Medicine; Family Provider Internal Medicine; PCP Physician Assistant Medical
DX: I11.0 Hypertensive heart disease with heart failure (principal); I50.9 Heart failure, unspecified; J18.9 Pneumonia, unspecified organism; I25.10 Atherosclerotic heart disease of native coronary artery without angina pectoris; Z95.5 Presence of coronary angioplasty implant and graft; Z99.81 Dependence on supplemental oxygen
CPT/HCPCS: 0241U; 36415; 71045; 80053; 83605; 83880; 84484; 85025; 85610; 93005; 93010; 94640; 96374; 96375; 99285; J1885; J1940

== ENCOUNTER → 2024-08-16 15:23 | Outpatient (CLI) | payer MEDICARE, OTHER, SELFPAY ==
[2024-01-25 23:22] VITALS: BMI 42.5
[2024-08-16 18:06] LABS: Add Manual Diff / Slide Review NO; Basophils Absolute Auto 0 /uL (0-100); Basophils Percent Auto 0.2 % (0-2); Eosinophils Absolute Auto 0 /uL (0-450); Eosinophils Percent Auto 0.5 % (2-4); Hematocrit 39.2 % (36-46); Hemoglobin 12.5 g/dL (12.0-16.0); Lymphocytes Absolute Auto 1900 /uL (1100-4500); Lymphocytes Percent Auto 18.2 % (25-40); Mean Corpuscular HGB Conc 31.9 % (30-36); Mean Corpuscular Hemoglobin 23.5 PG (26-34); Mean Corpuscular Volume 73.8 fL (80-100); Monocytes Absolute Auto 500 /uL (0-900); Monocytes Percent Auto 5.1 % (3-14); Neutrophils Absolute Auto 7800 /uL (1500-7000); Platelet Count 241 X10^3/uL (150-400); Red Cell Distribution Width 21.8 % (11.6-14.8); White Blood Cell Count 10.3 X10^3/uL (4.5-11.0)
[2024-08-16 19:11] LABS: Rheumatoid Factor < 8.6 IU/mL (<12.0)
[2024-08-16 19:46] LABS: Anisocytosis 1+; Microcytosis 1+
[2024-08-20 09:09] LABS: Angiotensin Converting Enzyme 27 U/L (14-82)
[2024-08-20 12:12] LABS: ANA Screen, IFA Negative (.)
== END ==
PROVIDERS: Family Provider Internal Medicine; PCP Physician Assistant Medical; Referring Provider Internal Medicine Critical Care Medicine; Visit Provider Internal Medicine Critical Care Medicine
DX: J84.9 Interstitial pulmonary disease, unspecified (principal); J18.9 Pneumonia, unspecified organism; J96.11 Chronic respiratory failure with hypoxia; G47.33 Obstructive sleep apnea (adult) (pediatric)
CPT/HCPCS: 36415; 82164; 85025; 86038; 86430; 99215

== ENCOUNTER 2024-08-22 19:00 | Emergency (ER) | payer MEDICARE, OTHER, SELFPAY ==
[2024-01-25 23:22] VITALS: BMI 42.5
[2024-08-22 19:28] VITALS: BP 132/60; PULSE 68; RESP 20; TEMP 36.3; O2SAT 98; BMI 41.5
[2024-08-22 20:44] LABS: Bacteria Urine Moderate (10-30); RBC Urine None Seen (0-5/HPF); Squamous Epithelial Cell Urine 10-30 /HPF (0-5/HPF); Urine Volume 10mL (spun); WBC Urine 5-10/HPF (0-5/HPF)
[2024-08-22 20:45] LABS: Culture Indicated Urine Specimen Cultured
--- NOTE | 2024-08-22 23:24 | DI.RAD.S_ITS ---
PROCEDURE: XR CHEST 1V INDICATIONS: chest pain TECHNIQUE: One view of the chest was acquired. COMPARISON: [facility], CR, XR CHEST 1V, 08/06/2024, 14:52. FINDINGS: Surgical changes and devices: None. Lungs and pleura: Lungs are clear. No pleural effusions or pneumothorax. Mediastinum: Mediastinal contours appear normal. Heart size is enlarged. Bones and chest wall: No suspicious bony lesions. Overlying soft tissues appear unremarkable. IMPRESSION: No acute pulmonary process. Dictated by: Debby Sahu M.D. on 08/23/2024 at 0:01 Approved by: Debby Sahu M.D. on 08/23/2024 at 0:01
--- NOTE | 2024-08-22 23:24 | EKG_ITS ---
[place] [id number] [place] [id number] Test Date: 2024-08-22 Pat Name: Lida [place] Department: [facility] Room: Gender: Female [employer] Helper: : 1935 Requested By: Order Number: [id number] Reading MD: Krunal Maldonado Measurements Intervals [place] Rate: 68 P: 73 ID: [id number] QRS: 103 QRSD: 102 T: 33 QT: 482 QTc: 512 Interpretive Statements Sinus rhythm with 1st degree AV block Possible Right ventricular hypertrophy Prolonged QT Electronically Signed On 08-27-2024 20:09:05 PDT by Krunal Maldonado
[2024-08-23 00:20] LABS: Influenza A - CEPHEID Flu A NEGATIVE (NEGATIVE); Influenza B - CEPHEID Flu B NEGATIVE (NEGATIVE); Respiratory Syncytial Virus Negative (Negative)
[2024-08-23 00:22] LABS: COVID-19 CEPHEID 4-PLEX PCR Negative (Negative)
--- NOTE | 2024-08-23 00:22 | ED_ITS ---
HPI - General Adult General Chief complaint: Urogenital-Female Stated complaint: coughing, sob, urinary problem Time Seen by Provider: 08/23/24 00:21 Source: patient Mode of arrival: Wheelchair History of Present Illness HPI narrative: Patient is a 88-year-old female with a past medical history of CHF, interstitial lung disease, hypertension, comes into the ED from home for evaluation of multiple complaints. Patient states that she has been having some lower abdominal cramping associated with right-sided flank pain and increased urinary frequency for the past 2 days states it was hit and alert to when she has had a UTI. Also states that she has been having increased shortness of breath and cough however she states that she does require oxygen at home at baseline, she has not needed to increase this states it is 3-4 L nasal cannula. She is worried she also has a pneumonia. She denies any other symptoms such as headache visual disturbances fever chills nausea vomiting or any other GI/ symptoms time. Related Data Home Medications Medication Instructions Recorded Confirmed aspirin 81 mg tablet,delayed 81 mg PO DAILY ##0 05/14/17 07/03/24 release nitroglycerin 0.4 mg sublingual 1 tab sublingual [id number] PRN Chest 11/18/18 07/03/24 tablet Pain rosuvastatin 40 mg tablet 40 mg PO QPM 11/18/18 07/03/24 escitalopram oxalate 20 mg tablet 20 mg PO DAILY 03/06/21 07/03/24 pantoprazole 40 mg tablet,delayed 40 mg PO DAILY 03/06/21 07/03/24 release furosemide 20 mg tablet 20 mg PO DAILY 01/11/23 07/03/24 metoprolol tartrate 25 mg tablet 12.5 mg PO BID 01/31/24 07/03/24 acetaminophen 300 mg-codeine 30 mg 1 tab PO BID PRN pain 07/03/24 07/03/24 tablet alprazolam 0.5 mg tablet 0.25 mg PO USEASDIRECTD 07/03/24 07/03/24 buspirone 10 mg tablet 10 mg PO BID PRN anxiety 07/03/24 07/03/24 ipratropium 0.5 mg-albuterol 3 mg 3 ml inhalation DIRECTED PRN 07/03/24 07/03/24 (2.5 mg base)/3 mL nebulization sob, wheezing soln ranolazine 500 mg tablet,extended 500 mg PO BID 07/03/24 07/03/24 release,12 hr Previous Rx's Medication Instructions Recorded blood sugar diagnostic (Blood #100 ea 02/01/24 Glucose Test strips) blood-glucose meter (Blood Glucose #1 02/01/24 Monitoring kit) pen needle, diabetic 31 gauge x #100 02/01/2407/28 (Pen Needle) amoxicillin 875 mg-potassium 1 tab PO BID #14 tabs 07/03/24 clavulanate 125 mg tablet benzonatate 100 mg capsule 100 mg PO TID PRN cough #20 caps 07/03/24 doxycycline monohydrate 100 mg 100 mg PO BID #14 caps 07/03/24 capsule benzonatate 100 mg capsule 100 mg PO TID PRN cough #20 caps 07/30/24 hydrocodone 5 mg-acetaminophen 325 1 tab PO Q8H PRN pain #20 tabs 07/30/24 mg tablet amoxicillin 875 mg-potassium 1 tab PO BID #14 tabs 08/06/24 clavulanate 125 mg tablet doxycycline hyclate 100 mg capsule 100 mg PO BID #14 caps 08/06/24 cephalexin 500 mg capsule 500 mg PO Q8H 7 days #21 caps 08/23/24 Allergies Allergy/AdvReac Type Severity Reaction Status Date / Time ibuprofen [IBUPROFEN] Allergy Severe Rash Verified 08/16/24 14:15 Iodinated Contrast Media Allergy Severe Unconscious Verified 08/16/24 14:15 [IODINATED CONTRAST- ORAL AND IV DYE] morphine [MORPHINE] Allergy Severe Rash Verified 08/16/24 14:15 naproxen [From ALEVE] Allergy Severe Rash Verified 08/16/24 14:15 telmisartan [TELMISARTAN] Allergy Severe Rash Verified 08/16/24 14:15 Review of Systems Review of Systems Narrative: General: Denies fever, chills, weight loss HEENT: Denies headache, eye drainage, eye irritation, head trauma, sore throat, voice change Cardiovascular: Denies any chest pain, palpitations, tachycardia Respiratory: Positive cough, shortness breath, denies wheeze stridor GI/: Positive urinary frequency and dysuria Denies any abdominal pain, nausea, vomiting, diarrhea, bright red blood per rectum, melanotic stools,, urinary retention,, hematuria MSK: Denies any joint pain, muscle pains, swelling Skin: Denies any rashes, lesions, discoloration Neuro: Denies any headache, lightheadedness, dizziness, fainting, weakness Psych: Denies SI/HI Patient History Medical History (Updated 08/23/24 @ 01:38 by Krunal Rg DO) Chronic respiratory failure with hypoxia Skin cancer NSTEMI (non-ST elevated myocardial infarction) Diastolic heart failure Cardiac arrest Chest pain Hypertension Hyperlipidemia Coronary artery disease Left hamstring muscle strain UTI (urinary tract infection) Surgical History H/O right heart catheterization History of breast implant removal History of breast surgery History of appendectomy History of cholecystectomy History of total abdominal hysterectomy History of coronary artery stent placement Family History Father Hypertension Diabetes mellitus Mother Hypertension DC (myocardial infarction) Sister DC (myocardial infarction) S/P CABG x 4 Social History household members: children alcohol intake frequency: holidays/special occasions only Exam Narrative Exam Narrative: General: Cooperative, well-developed, not in acute distress HEENT: Normocephalic, atraumatic, PERRLA, normal sclera, eyelids normal Neck: Active full range of motion, atraumatic Chest: Normal to inspection, negative crepitus, no overlying erythema ecchymosis Respiratory: Patient on 4 L nasal cannula this is baseline, Normal respiratory effort, not in acute respiratory distress, clear to auscultation bilaterally negative cough, wheeze, tachypnea, rhonchi, rales Cardiology: Regular rate rhythm negative gallop, murmur, rubs GI/: Very mild tenderness to palpation diffusely to the abdomen, soft, non rigid, normal to inspection, exam deferred MSK: Full active range of motion in all 4 extremities, atraumatic, no tenderness to palpation of any bony prominences Skin: No rashes or lesions noted Neuro: Alert awake oriented x3, moves all 4 extremities spontaneously, cranial nerves intact, able to answer all questions appropriately follows commands appropriately Psych: Cooperative, negative suicidal or homicidal ideations Initial Vital Signs Initial Vital Signs: Vital Signs Temperature 97.4 F L 08/22/24 19:28 Pulse Rate 68 08/22/24 19:28 Respiratory Rate 20 08/22/24 19:28 Blood Pressure 132/60 08/22/24 19:28 Pulse Oximetry 98 08/22/24 19:28 Oxygen Delivery Method Nasal Cannula 08/22/24 19:28 Oxygen Flow Rate 3 08/22/24 19:28 Course Orders Ordered: ED Orders 08/22/24 19:38 Urine Culture Stat Urine Microscopic Stat 08/22/24 23:21 Covid-19 + FLU A/B + RSV - PCR Stat 08/22/24 23:24 XR chest 1V Stat Complete Blood Count AUTO DIFF Stat Comprehensive Metabolic Panel Stat Lipase Stat Magnesium Stat NT-proBNP (BNP-Adult 18+) Stat PTT Partial Thromboplastin Garo Stat Prothrombin Time INR Stat Troponin & CK Cardiac Panel Stat EKG-12 Lead Stat 08/23/24 00:43 CT abdomen pelvis wo con Stat 08/23/24 00:50 Lactate (Lactic Acid) Stat Discontinued Medications Ceftriaxone Sodium 2,000 mg/ (Sodium Chloride) 100 mls @ 200 mls/hr IV NOW ONE Stop: 08/23/24 00:44 Last Admin: 08/23/24 01:00 Dose: 200 mls/hr Vital Signs Vital signs: Vital Signs - 8 hr 08/22/24 19:28 Temperature 97.4 F L Pulse Rate 68 Respiratory Rate 20 Blood Pressure 132/60 Pulse Oximetry 98 Oxygen Delivery Method Nasal Cannula Oxygen Flow Rate 3 Medical Decision Making Differential Diagnosis Differential Diagnosis: Urinary tract infection, electrolyte abnormality, ACS, pneumonia, COVID,flu Lab Data 08/23/24 01:15 08/23/24 00:30 Labs: Lab Results 08/22/24 08/22/24 08/23/24 Range/Units 19:38 23:21 00:30 WBC (4.5-11.0) X10^3/uL RBC (4.0-5.2) X10^6/uL Hgb (12.0-16.0) g/dL Hct (36-46) % MCV (80-100) fL MCH (26-34) PG MCHC (30-36) % RDW (11.6-14.8) % Plt Count (150-400) X10^3/uL Neut % (Auto) (50-75) % Lymph % (Auto) (25-40) % Rogers % (Auto) (3-14) % Eos % (Auto) (2-4) % Baso % (Auto) (0-2) % Neut # (Auto) (4910-7416) /uL Lymph # (Auto) (3843-8956) /uL Rogers # (Auto) (0-900) /uL Eos # (Auto) (0-450) /uL Baso # (Auto) (0-100) /uL PT 11.9 (9.4-12.5) SECONDS INR 1.1 (0.9-1.3) APTT 26 (25.1-36.5) SECONDS Sodium 133 L (137-145) mmol/L Potassium 4.1 (3.4-5.1) mmol/L Chloride 98 (98-107) mmol/L Carbon Dioxide 30 (22-32) mmol/L BUN 22 H (7-17) mg/dL Creatinine 0.96 (0.52-1.04) mg/dL Estimated GFR 58 L (>60) mL/min BUN/Creatinine Ratio 22.9 H (6-22) Glucose 123 H (80-110) mg/dL Lactate (0.7-2.1) mmol/L Calcium 9.8 (8.4-10.2) mg/dL Magnesium 2.0 (1.6-2.3) mg/dL Total Bilirubin 0.4 (0.2-1.3) mg/dL AST 25 (14-36) IU/L ALT 13 (<35) IU/L Alkaline Phosphatase 49 (38-126) U/L Total Creatine Kinase 26 L (30-135) U/L Troponin I 0.017 (0.01-0.034) ng/mL NT-Pro-B Natriuret Pep 675 H (<450) pg/mL Total Protein 6.8 (6.3-8.2) g/dL Albumin 4.0 (3.5-5.0) g/dL Globulin 2.8 (1.7-4.1) g/dL Albumin/Globulin Ratio 1.4 (1.0-2.8) Lipase 730 H (23-300) U/L Urine RBC None seen (0-5/HPF) Urine WBC 5-10/hpf H (0-5/HPF) Ur Squamous Epith Cells 10-30 /hpf H D (0-5/HPF) Urine Bacteria Moderate (10-30) H (None) Ur Culture Indicated? Specimen cultured Vol Urine Centrifuged 10ml (spun) SARS-CoV-2 (PCR) Negative (Negative) Influenza A (RT-PCR) Flu a negative (NEGATIVE) Influenza B (RT-PCR) Flu b negative (NEGATIVE) RSV (PCR) Negative (Negative) 08/23/24 08/23/24 Range/Units 00:38 01:15 WBC 10.8 (4.5-11.0) X10^3/uL RBC 4.98 (4.0-5.2) X10^6/uL Hgb 12.1 (12.0-16.0) g/dL Hct 36.9 (36-46) % MCV 74.1 L (80-100) fL MCH 24.2 L (26-34) PG MCHC 32.7 (30-36) % RDW 22.3 H (11.6-14.8) % Plt Count 254 (150-400) X10^3/uL Neut % (Auto) 62.3 (50-75) % Lymph % (Auto) 27.7 (25-40) % Rogers % (Auto) 8.0 (3-14) % Eos % (Auto) 1.1 L (2-4) % Baso % (Auto) 0.9 (0-2) % Neut # (Auto) 6700 (2089-3162) /uL Lymph # (Auto) 3000 (9706-3508) /uL Rogers # (Auto) 900 (0-900) /uL Eos # (Auto) 100 (0-450) /uL Baso # (Auto) 100 (0-100) /uL PT (9.4-12.5) SECONDS INR (0.9-1.3) APTT (25.1-36.5) SECONDS Sodium (137-145) mmol/L Potassium (3.4-5.1) mmol/L Chloride (98-107) mmol/L Carbon Dioxide (22-32) mmol/L BUN (7-17) mg/dL Creatinine (0.52-1.04) mg/dL Estimated GFR (>60) mL/min BUN/Creatinine Ratio (6-22) Glucose (80-110) mg/dL Lactate 0.9 (0.7-2.1) mmol/L Calcium (8.4-10.2) mg/dL Magnesium (1.6-2.3) mg/dL Total Bilirubin (0.2-1.3) mg/dL AST (14-36) IU/L ALT (<35) IU/L Alkaline Phosphatase (38-126) U/L Total Creatine Kinase (30-135) U/L Troponin I (0.01-0.034) ng/mL NT-Pro-B Natriuret Pep (<450) pg/mL Total Protein (6.3-8.2) g/dL Albumin (3.5-5.0) g/dL Globulin (1.7-4.1) g/dL Albumin/Globulin Ratio (1.0-2.8) Lipase (23-300) U/L Urine RBC (0-5/HPF) Urine WBC (0-5/HPF) Ur Squamous Epith Cells (0-5/HPF) Urine Bacteria (None) Ur Culture Indicated? Vol Urine Centrifuged SARS-CoV-2 (PCR) (Negative) Influenza A (RT-PCR) (NEGATIVE) Influenza B (RT-PCR) (NEGATIVE) RSV (PCR) (Negative) Urine Dip Bedside Urine Glucose Negative Bedside Urine Bilirubin - Negative Bedside Urine Ketone - Negative Urine Specific [place] 1.030 Bedside Urine Occult Blood + Bedside Urine pH 6.0 Bedside Urine Protein +/- 15 Bedside Urine Urobilinogen - Negative Bedside Urine Nitrite - Negative Bedside Urine Leukocytes - Negative Esterase Point of care testing: Urine Dip Bedside Urine Glucose Negative Bedside Urine Bilirubin - Negative Bedside Urine Ketone - Negative Urine Specific [place] 1.030 Bedside Urine Occult Blood + Bedside Urine pH 6.0 Bedside Urine Protein +/- 15 Bedside Urine Urobilinogen - Negative Bedside Urine Nitrite - Negative Bedside Urine Leukocytes - Negative Esterase Imaging Data Chest x-ray: Radiologist's Impression: [address] [address] XRay Report Signed Patient: Lida Townsend MR#: [id number] : 1935 Acct:[id number] Age/Sex: 88 / F Date of Service: 08/22/24 Loc: ED Accession Number: [id number] Procedure: XR chest 1V Ordering Provider: Krunal Rg D.O. PROCEDURE: XR CHEST 1V INDICATIONS: chest pain TECHNIQUE: One view of the chest was acquired. COMPARISON: [facility], CR, XR CHEST 1V, 08/06/2024, 14:52. FINDINGS: Surgical changes and devices: None. Lungs and pleura: Lungs are clear. No pleural effusions or pneumothorax. Mediastinum: Mediastinal contours appear normal. Heart size is enlarged. Bones and chest wall: No suspicious bony lesions. Overlying soft tissues appear unremarkable. IMPRESSION: No acute pulmonary process. CT scan - abdomen/pelvis: Radiologist's Impression: [address] [address] [address] Scan Report Signed Patient: Lida Townsend MR#: [id number] : 1935 Acct:[id number] Age/Sex: 88 / F Date of Service: 08/23/24 Loc: ED Accession Number: [id number] Procedure: CT abdomen pelvis wo con Ordering Provider: Krunal Rg D.O. PROCEDURE: CT ABDOMEN PELVIS WO CON INDICATIONS: diffuse abd pain TECHNIQUE: Axial sections were acquired from the lung bases to the pubic symphysis. Coronal and sagittal reformats were performed. For radiation dose reduction, the following was used: automated exposure control, adjustment of mA and/or kV according to patient size. COMPARISON: [facility], CT, CT CHEST ABD PEL WO CON, 07/30/2024, 11:21. FINDINGS: Image quality: Diagnostic. Lower Chest: Heart is enlarged. URINARY: Right Kidney: No stones or hydronephrosis. Right Ureter: No hydroureter. Left Kidney: No stones or hydronephrosis. Left Ureter: No hydroureter. Bladder: Normal wall thickness. No stones. ABDOMEN: Liver: No contour-deforming solid mass. Gallbladder: Not visualized. Biliary ducts: No biliary dilation. Pancreas: No ductal dilation. Spleen: Size is within normal limits. Adrenal Glands: No adrenal nodules. Stomach and Bowel: Normal colonic caliber, without significant wall thickening. Appendix is normal. Minimal scattered diverticula. Peritoneum: No abnormal intraperitoneal fluid. No free air. Ventral Wall: No hernia. Abdominal Nodes: No enlarged retroperitoneal or mesenteric lymph nodes. Vessels: Aorta and inferior vena cava are normal in size. PELVIS: Pelvic Organs: Unremarkable. Pelvic Nodes: Unremarkable. Miscellaneous: No inguinal hernias are seen. Bones: Multilevel degenerative changes including T10 compression deformity, unchanged. IMPRESSION: No visualized acute intra-abdominal or pelvic process. ECG Data Interpretation: EKG interpreted ED physician sinus 68 beats per minute QTC 512, normal axis nonspecific ST changes no STEMI MDM Narrative Medical decision making narrative: A 88-year-old female with a past medical history of CHF, interstitial lung disease, does require 3-4 L nasal cannula oxygen at baseline, comes into the ED for evaluation of multiple complaints. She states that she has been having a cough and shortness of breath worried that she might have a pneumonia again, however she has not required an increase in her oxygen. Patient also complaining of abdominal pain and urinary frequency and dysuria. Patient had chest x-ray without any acute cardiopulmonary abnormalities, EKG nonischemic in nature, urinalysis was consistent with acute urinary tract infection, CT scan without any acute findings, lab work without any signs of leukocytosis, Chem panel unremarkable, troponin indeterminate at 0.017 however this does appear to be patient's baseline from previous history, BNP 675, lipase is slightly elevated at 730, however she has no pain to the epigastric region, CT scan not consistent with acute pancreatitis, however did mention to pinching into try to do liquid diet for the next 24 hours and to have repeat lab work performed by her primary care. Patient will be sent home with antibiotics for urinary tract infection she was given strict return precautions she verbalized understanding of this and agrees to being discharged home with outpatient follow up. Discharge Plan Departure Patient Disposition: Home Clinical Impression: Urinary tract infection Instructions: DI for Urinary Tract Infection (UTI) Activity Restrictions/Additional Instructions: Please follow up with your primary care doctor Please read the discharge instructions sheet carefully and bring all papers to all doctor follow-up visits, as it may contain information that your doctor may want to see. Disease processes change and evolve, if your symptoms worsen or if you develop any new symptoms that are concerning to you please return for evaluation. Your evaluation today does not show any evidence of any life- threatening/serious illnesses requiring admission to the hospital or surgery. Please follow-up with your doctor for re-evaluation in approximately 1 day. Seek immediate medical attention for any worrisome symptoms. *If you do not have a primary care provider please contact the [facility] Resource line at [phone]. They will ask some questions about your medical history and help get you set up with a doctor in the community. Prescriptions: New cephalexin 500 mg capsule 500 mg PO Q8H 7 Days Qty: 21 0RF No Action aspirin 81 MG tablet,delayed release (DR/EC) 81 mg PO DAILY Qty: 0 pantoprazole 40 mg Tablet,Delayed Release (Dr/Ec) 40 mg PO DAILY escitalopram oxalate 20 mg Tablet 20 mg PO DAILY furosemide 20 mg tablet 20 mg PO DAILY metoprolol tartrate 25 mg tablet 12.5 mg PO BID Rx Instructions: 1/2 tablet = 12.5 mg BID - AM & PM (DME) pen needle, diabetic [Pen Needle] 31 gauge x 3/16 needle See Rx Instructions .Route Qty: 100 0RF Rx Instructions: Once daily with insulin pen needle (DME) blood-glucose meter [Blood Glucose Monitoring] Kit See Rx Instructions .Route Qty: 1 0RF Rx Instructions: One blood glucose meter (DME) Blood Glucose Test Strip See Rx Instructions .Route Qty: 100 0RF Rx Instructions: Check glucose 3-4 times daily, in AM and before meals nitroglycerin 0.4 mg tablet, sublingual 1 tab sublingual [id number] PRN (Reason: Chest Pain) Patient Comments: take it when needed, last dose unknown rosuvastatin 40 mg tablet 40 mg PO QPM acetaminophen-codeine 300-30 mg tablet 1 tab PO BID PRN (Reason: pain) alprazolam 0.5 mg tablet 0.25 mg PO USEASDIRECTD Patient Comments: take 1/2 tablet by mouth EN ROUTE TO CARDIAC IMAGING take ANOTHER... (REFER TO PRESCRIPTION NOTES). Rx Instructions: take 1/2 tablet by mouth EN ROUTE TO CARDIAC IMAGING take ipratropium-albuterol 0.5 mg-3 mg(2.5 mg base)/3 mL solution for nebulization 3 ml inhalation DIRECTED PRN (Reason: sob, wheezing) buspirone 10 mg tablet 10 mg PO BID PRN (Reason: anxiety) Rx Instructions: has not taken yet 07/03/24 LESLEY--RN ranolazine 500 mg tablet extended release 12 hr 500 mg PO BID benzonatate 100 mg capsule 100 mg PO TID PRN (Reason: cough) Qty: 20 0RF doxycycline monohydrate 100 mg capsule 100 mg PO BID Qty: 14 0RF amoxicillin-pot clavulanate 875-125 mg tablet 1 tab PO BID Qty: 14 0RF hydrocodone-acetaminophen 5-325 mg tablet 1 tab PO Q8H PRN (Reason: pain) Qty: 20 0RF benzonatate 100 mg capsule 100 mg PO TID PRN (Reason: cough) Qty: 20 0RF amoxicillin-pot clavulanate 875-125 mg tablet 1 tab PO BID Qty: 14 0RF doxycycline hyclate 100 mg capsule 100 mg PO BID Qty: 14 0RF Referrals: Zoe Bass PA-C [Primary Care Provider] - Stand Alone Forms: Patient Portal/API/Survey
--- NOTE | 2024-08-23 00:43 | DI.CT.S_ITS ---
PROCEDURE: CT ABDOMEN PELVIS WO CON INDICATIONS: diffuse abd pain TECHNIQUE: Axial sections were acquired from the lung bases to the pubic symphysis. Coronal and sagittal reformats were performed. For radiation dose reduction, the following was used: automated exposure control, adjustment of mA and/or kV according to patient size. COMPARISON: [facility], CT, CT CHEST ABD PEL WO CON, 07/30/2024, 11:21. FINDINGS: Image quality: Diagnostic. Lower Chest: Heart is enlarged. URINARY: Right Kidney: No stones or hydronephrosis. Right Ureter: No hydroureter. Left Kidney: No stones or hydronephrosis. Left Ureter: No hydroureter. Bladder: Normal wall thickness. No stones. ABDOMEN: Liver: No contour-deforming solid mass. Gallbladder: Not visualized. Biliary ducts: No biliary dilation. Pancreas: No ductal dilation. Spleen: Size is within normal limits. Adrenal Glands: No adrenal nodules. Stomach and Bowel: Normal colonic caliber, without significant wall thickening. Appendix is normal. Minimal scattered diverticula. Peritoneum: No abnormal intraperitoneal fluid. No free air. Ventral Wall: No hernia. Abdominal Nodes: No enlarged retroperitoneal or mesenteric lymph nodes. Vessels: Aorta and inferior vena cava are normal in size. PELVIS: Pelvic Organs: Unremarkable. Pelvic Nodes: Unremarkable. Miscellaneous: No inguinal hernias are seen. Bones: Multilevel degenerative changes including T10 compression deformity, unchanged. IMPRESSION: No visualized acute intra-abdominal or pelvic process. Dictated by: Debby Sahu M.D. on 08/23/2024 at 1:25 Approved by: Debby Sahu M.D. on 08/23/2024 at 1:27
[2024-08-23 00:51] LABS: INR 1.1 (0.9-1.3); Prothrombin Time 11.9 SECONDS (9.4-12.5)
[2024-08-23 00:54] LABS: PTT Partial Thromboplastin Tim 26 SECONDS (25.1-36.5)
[2024-08-23 00:56] LABS: Alanine Aminotransferase 13 IU/L (<35); Albumin Globulin Ratio 1.4 (1.0-2.8); Alkaline Phosphatase 49 U/L (38-126); Aspartate Aminotransferase 25 IU/L (14-36); BUN Creatinine Ratio 22.9 (6-22); Bilirubin Total 0.4 mg/dL (0.2-1.3); Blood Urea Nitrogen 22 mg/dL (7-17); Calcium 9.8 mg/dL (8.4-10.2); Carbon Dioxide 30 mmol/L (22-32); Chloride 98 mmol/L (98-107); Creatine Kinase 26 U/L (30-135); Estimated Glomerular Filt Rate 58 mL/min (>60); Globulin 2.8 g/dL (1.7-4.1); Glucose 123 mg/dL (80-110); HEMOLYSIS < 15 (0-50); Lipase 730 U/L (23-300); Potassium 4.1 mmol/L (3.4-5.1); Sodium 133 mmol/L (137-145); Total Protein 6.8 g/dL (6.3-8.2)
[2024-08-23] MEDS: cefTRIAXone 2,000 MG in SODIUM CHLORIDE 0.9% 100 ML 200 MG IV (01:00)
[2024-08-23 01:01] LABS: Lactate (Lactic Acid) 0.9 mmol/L (0.7-2.1)
[2024-08-23 01:08] LABS: NT-proBNP (BNP-Adult 18+) 675 pg/mL (<450); Troponin I 0.017 ng/mL (0.01-0.034)
[2024-08-23 01:32] LABS: Add Manual Diff / Slide Review NO; Basophils Absolute Auto 100 /uL (0-100); Basophils Percent Auto 0.9 % (0-2); Eosinophils Absolute Auto 100 /uL (0-450); Eosinophils Percent Auto 1.1 % (2-4); Hematocrit 36.9 % (36-46); Hemoglobin 12.1 g/dL (12.0-16.0); Lymphocytes Absolute Auto 3000 /uL (1100-4500); Lymphocytes Percent Auto 27.7 % (25-40); Mean Corpuscular HGB Conc 32.7 % (30-36); Mean Corpuscular Hemoglobin 24.2 PG (26-34); Mean Corpuscular Volume 74.1 fL (80-100); Monocytes Absolute Auto 900 /uL (0-900); Neutrophils Absolute Auto 6700 /uL (1500-7000); Neutrophils Percent Auto 62.3 % (50-75); Platelet Count 254 X10^3/uL (150-400); Red Blood Cell Count 4.98 X10^6/uL (4.0-5.2); Red Cell Distribution Width 22.3 % (11.6-14.8); White Blood Cell Count 10.8 X10^3/uL (4.5-11.0)
[2024-08-23 01:59] VITALS: BP 138/58; PULSE 66; RESP 18; O2SAT 97
[2024-08-23 02:00] LABS: Anisocytosis 2+; Microcytosis 1+
== END 2024-08-23 02:00 | disposition home or self-care (01) ==
PROVIDERS: Emergency Provider Student in an Organized Health Care Education/Training Program; Family Provider Internal Medicine; PCP Physician Assistant Medical
DX: N39.0 Urinary tract infection, site not specified (principal); R35.0 Frequency of micturition; R06.02 Shortness of breath; R05.9 Cough, unspecified; R07.9 Chest pain, unspecified; J84.9 Interstitial pulmonary disease, unspecified; I50.9 Heart failure, unspecified
CPT/HCPCS: 0241U; 36415; 71045; 74176; 80053; 81003; 81015; 82550; 83605; 83690; 83735; 83880; 84484; 85025; 85610; 85730; 87077; 87086; 87186; 93005; 96365; 99284; J0696

== ENCOUNTER → 2024-09-03 09:53 | Outpatient (CLI) | payer MEDICARE, OTHER, SELFPAY ==
[2024-01-25 23:22] VITALS: BMI 42.5
== END ==
PROVIDERS: Family Provider Internal Medicine; PCP Physician Assistant Medical; Referring Provider Internal Medicine Critical Care Medicine; Visit Provider Internal Medicine Critical Care Medicine
DX: R06.02 Shortness of breath (principal); Z86.16 Personal history of COVID-19; R94.2 Abnormal results of pulmonary function studies; J18.9 Pneumonia, unspecified organism
CPT/HCPCS: 94060; 94726; 94729

== ENCOUNTER 2024-10-25 10:52 | Emergency (ER) | payer MEDICARE, OTHER, SELFPAY ==
[2024-01-25 23:22] VITALS: BMI 42.5
[2024-10-25] VITALS (24 sets, daily range): BP systolic 118–198; BP diastolic 54–104; PULSE 56–78; RESP 12–24; TEMP 36.6; O2SAT 96–99; BMI 41.5
--- NOTE | 2024-10-25 11:05 | DI.RAD.S_ITS ---
PROCEDURE: XR CHEST 1V INDICATIONS: Shortness of breath TECHNIQUE: One view of the chest was acquired. COMPARISON: [facility], CR, XR CHEST 1V, 08/22/2024, 23:23. FINDINGS: Surgical changes and devices: None. Lungs and pleura: Lungs are clear. No pleural effusions or pneumothorax. Mediastinum: Mediastinal contours appear normal. Heart size is enlarged. Bones and chest wall: No suspicious bony lesions. Overlying soft tissues appear unremarkable. IMPRESSION: No acute cardiopulmonary pathology. Dictated by: Edmundo Deng M.D. on 10/25/2024 at 11:33 Approved by: Edmundo Deng M.D. on 10/25/2024 at 11:33
--- NOTE | 2024-10-25 11:05 | EKG_ITS ---
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
[2024-10-25 11:58] LABS: Add Manual Diff / Slide Review NO; Basophils Absolute Auto 100 /uL (0-100); Basophils Percent Auto 0.8 % (0-2); Eosinophils Absolute Auto 100 /uL (0-450); Eosinophils Percent Auto 0.7 % (2-4); Hematocrit 36.2 % (36-46); Hemoglobin 11.6 g/dL (12.0-16.0); Lymphocytes Absolute Auto 1700 /uL (1100-4500); Lymphocytes Percent Auto 15.6 % (25-40); Mean Corpuscular HGB Conc 32.1 % (30-36); Mean Corpuscular Hemoglobin 25.2 PG (26-34); Mean Corpuscular Volume 78.6 fL (80-100); Monocytes Absolute Auto 600 /uL (0-900); Monocytes Percent Auto 5.5 % (3-14); Neutrophils Absolute Auto 8300 /uL (1500-7000); Neutrophils Percent Auto 77.4 % (50-75); Platelet Count 106 X10^3/uL (150-400); Red Blood Cell Count 4.61 X10^6/uL (4.0-5.2); Red Cell Distribution Width 19.2 % (11.6-14.8); White Blood Cell Count 10.7 X10^3/uL (4.5-11.0)
[2024-10-25 12:00] LABS: Alanine Aminotransferase 11 IU/L (<35); Albumin 3.9 g/dL (3.5-5.0); Albumin Globulin Ratio 1.4 (1.0-2.8); Alkaline Phosphatase 47 U/L (38-126); Aspartate Aminotransferase 23 IU/L (14-36); BUN Creatinine Ratio 21.5 (6-22); Bilirubin Total 0.6 mg/dL (0.2-1.3); Blood Urea Nitrogen 20 mg/dL (7-17); Calcium 9.1 mg/dL (8.4-10.2); Carbon Dioxide 28 mmol/L (22-32); Chloride 100 mmol/L (98-107); Estimated Glomerular Filt Rate 60 mL/min (>60); Globulin 2.7 g/dL (1.7-4.1); Glucose 128 mg/dL (70-99); HEMOLYSIS 16 (0-50); Potassium 4.4 mmol/L (3.4-5.1); Sodium 135 mmol/L (137-145); Total Protein 6.6 g/dL (6.3-8.2)
[2024-10-25 12:12] LABS: NT-proBNP (BNP-Adult 18+) 754 pg/mL (<450); Troponin I 0.026 ng/mL (0.01-0.034)
--- NOTE | 2024-10-25 13:12 | ED.SOB ---
HPI - SOB/Dyspnea General Chief Complaint: Shortness of Breath/Dyspnea Stated Complaint: SOB X 2 days , Pain left lung area Time Seen by Provider: 10/25/24 13:00 Source: patient, RN notes reviewed and old records reviewed Mode of arrival: Wheelchair Limitations: no limitations History of Present Illness HPI Narrative: 88-year-old female history of CHF, coronary artery disease with prior cardiac stents, hypertension, dyslipidemia, interstitial lung disease on home O2 at 3 L who presents with complaint of increased shortness of breath and some left-sided chest pain. Patient states has been slowly progressive for about the last week she describes chest discomfort has a left side worse with exertion and deep inhalation. She notes she was had dyspnea exertion but does not have increased shortness of breath at rest. Notes that she will bump up her O2 to 4 L when she tries to ambulate but bumps back down to her normal 3 L. she denies fevers or chills. She was had a cough but states it has not been productive. She denies any nausea or vomiting. No syncope but has felt lightheaded. Denies any new diarrhea or constipation. No new urinary symptoms. States her legs have not been more swollen lately. She does have some chronic issues with the edema. Patient states no recent medication changes. Patient states has a history of cardiac stents x6, denies any other cardiac interventions. Reported allergy to contrast which made her unconscious or have cardiac arrest but states that her patient intake coordinator figured out if she has steroids and Benadryl she does fine, also report to morphine and telmisartan for rash. MI bass as her primary care physician. Dr. Ellington is her patient intake coordinator. Patient does note she recently traveled to [place] and a [employer] van with her family over several days was there and then returned and a long distance car trip. They note they were sitting for prolonged periods, this is a proximally 3 weeks ago. She states she also had a CT at we would be in her primary care physician call her with the results but she did not recall exactly with the words were or what they meant but was told to go to the ER. Related Data Home Medications ?Medication ?Instructions ?Recorded ?Confirmed aspirin 81 mg tablet,delayed 81 mg PO DAILY ##0 05/14/17 10/16/24 release nitroglycerin 0.4 mg sublingual 1 tab sublingual [id number] PRN Chest 11/18/18 10/16/24 tablet Pain rosuvastatin 40 mg tablet 40 mg PO QPM 11/18/18 10/16/24 escitalopram oxalate 20 mg tablet 20 mg PO DAILY 03/06/21 10/16/24 pantoprazole 40 mg tablet,delayed 40 mg PO DAILY 03/06/21 10/16/24 release furosemide 20 mg tablet 20 mg PO DAILY 01/11/23 10/16/24 metoprolol tartrate 25 mg tablet 12.5 mg PO BID 01/31/24 10/16/24 acetaminophen 300 mg-codeine 30 mg 1 tab PO BID PRN pain 07/03/24 10/16/24 tablet ipratropium 0.5 mg-albuterol 3 mg 3 ml inhalation DIRECTED PRN 07/03/24 10/16/24 (2.5 mg base)/3 mL nebulization sob, wheezing soln ranolazine 500 mg tablet,extended 500 mg PO BID 07/03/24 10/16/24 release,12 hr Previous Rx's ?Medication ?Instructions ?Recorded blood sugar diagnostic (Blood #100 ea 02/01/24 Glucose Test strips) blood-glucose meter (Blood Glucose #1 ea 02/01/24 Monitoring kit) pen needle, diabetic 31 gauge x #100 ea 02/01/2407/28 (Pen Needle) prednisone 10 mg tablets in a dose See Rx Instructions PO .COMPLEX 10/25/24 pack #30 ea prednisone 10 mg tablets in a dose 10 mg PO DAILY #21 ea 10/26/24 pack Allergies Allergy/AdvReac Type Severity Reaction Status Date / Time Iodinated Contrast Media Allergy Severe Unconscious Verified 10/25/24 10:59 (IODINATED CONTRAST- ORAL AND IV DYE) morphine (MORPHINE) Allergy Severe Rash Verified 10/25/24 10:59 telmisartan (TELMISARTAN) Allergy Severe Rash Verified 10/25/24 10:59 Review of Systems Review of Systems ROS Unobtainable: All systems reviewed & are unremarkable except as noted in HPI and below Patient History Medical History Chronic respiratory failure with hypoxia Skin cancer NSTEMI (non-ST elevated myocardial infarction) Diastolic heart failure Cardiac arrest Chest pain Hypertension Hyperlipidemia Coronary artery disease Left hamstring muscle strain UTI (urinary tract infection) Surgical History H/O right heart catheterization History of breast implant removal History of breast surgery History of appendectomy History of cholecystectomy History of total abdominal hysterectomy History of coronary artery stent placement Family History Father Hypertension Diabetes mellitus Mother Hypertension [place] (myocardial infarction) Sister [place] (myocardial infarction) S/P CABG x 4 Social History household members: children Smoking Status: Never smoker Smoking Status: Never smoker alcohol intake frequency: holidays/special occasions only Exam Narrative Exam Narrative: GENERAL: Alert and oriented x three, obese female in mild distress. HEENT: Head normocephalic, atraumatic, EOMI, pupils reactive, face symmetric, moist mucous membranes, nasal cannula in place. NECK: Supple, full range of motion CARDIOVASCULAR: Regular rate and rhythm without murmurs, rubs or gallops. Bilateral lower extremity edema. RESPIRATORY: Breath sounds equal bilaterally, no wheezes rales or rhonchi. No tachypnea. No accessory muscle use. Speaks in full sentences. ABDOMEN: Soft, nontender. Normoactive bowel sounds all 4 quadrants. No guarding or rebound, rigidity, no mass : No CVA tenderness EXTREMITIES: Normal range of motion. Neurovascularly intact. NEUROLOGICAL: Cranial nerves II through XII grossly intact. Moving all extremities SKIN: Warm, dry, no petechiae, no rashes or lesions. Initial Vital Signs Initial Vital Signs: Vital Signs Temperature 98 F 10/25/24 10:57 Pulse Rate 56 L 10/25/24 10:57 Respiratory Rate 24 10/25/24 10:57 Blood Pressure 118/54 L 10/25/24 10:57 Pulse Oximetry 99 10/25/24 10:57 Oxygen Delivery Method Nasal Cannula 10/25/24 10:57 Oxygen Flow Rate 3 10/25/24 10:57 Course Orders Ordered: Discontinued Medications Diphenhydramine HCl (Diphenhydramine 50 Mg/Ml Vial) 50 mg IV NOW ONE Stop: 10/25/24 13:39 Last Admin: 10/25/24 13:56 Dose: 50 mg Documented By: TIM Methylprednisolone (Methylprednisolone 125 Mg/2 Ml Vial) 125 mg IV NOW ONE Stop: 10/25/24 13:35 Last Admin: 10/25/24 13:55 Dose: 125 mg Documented By: TIM Vital Signs Vital signs: Vital Signs - 8 hr 10/25/24 10:57 10/25/24 11:11 10/25/24 11:12 Temperature 98 F Pulse Rate 56 L 68 68 Respiratory Rate 24 Blood Pressure 118/54 L Pulse Oximetry 99 96 97 Oxygen Delivery Method Nasal Cannula Nasal Cannula Nasal Cannula Oxygen Flow Rate 3 3 3 10/25/24 11:12 10/25/24 11:30 10/25/24 11:39 Temperature Pulse Rate 61 61 Respiratory Rate 22 18 Blood Pressure 141/65 H Pulse Oximetry 99 98 Oxygen Delivery Method Nasal Cannula Nasal Cannula Oxygen Flow Rate 3 3 10/25/24 11:39 10/25/24 12:00 10/25/24 12:00 Temperature Pulse Rate 59 L Respiratory Rate 16 Blood Pressure 172/71 H 153/66 H Pulse Oximetry 98 Oxygen Delivery Method Nasal Cannula Oxygen Flow Rate 3 10/25/24 12:30 10/25/24 12:30 10/25/24 13:00 Temperature Pulse Rate 63 63 Respiratory Rate 16 12 Blood Pressure 174/74 H Pulse Oximetry 98 98 Oxygen Delivery Method Nasal Cannula Nasal Cannula Oxygen Flow Rate 3 3 10/25/24 13:01 10/25/24 13:01 10/25/24 13:30 Temperature Pulse Rate 62 67 Respiratory Rate 15 23 Blood Pressure 165/72 H Pulse Oximetry 98 98 Oxygen Delivery Method Nasal Cannula Nasal Cannula Oxygen Flow Rate 3 3 10/25/24 13:30 10/25/24 14:00 10/25/24 14:00 Temperature Pulse Rate 67 Respiratory Rate 20 Blood Pressure 170/70 H 194/88 H Pulse Oximetry 99 Oxygen Delivery Method Nasal Cannula Oxygen Flow Rate 3 10/25/24 14:48 10/25/24 14:49 10/25/24 14:49 Temperature Pulse Rate 72 Respiratory Rate 19 22 Blood Pressure 194/84 H Pulse Oximetry Oxygen Delivery Method Oxygen Flow Rate 10/25/24 15:00 10/25/24 15:00 10/25/24 15:30 Temperature Pulse Rate 69 68 Respiratory Rate 13 Blood Pressure 198/80 H Pulse Oximetry 98 98 Oxygen Delivery Method Nasal Cannula Nasal Cannula Nasal Cannula Oxygen Flow Rate 3 3 3 10/25/24 16:00 10/25/24 16:32 06/13/25 16:45 Temperature Pulse Rate 68 78 Respiratory Rate 16 Blood Pressure 144/104 H Pulse Oximetry 99 Oxygen Delivery Method Nasal Cannula Oxygen Flow Rate 3 10/25/24 16:45 10/25/24 17:00 10/25/24 17:01 Temperature Pulse Rate 73 73 Respiratory Rate 20 16 Blood Pressure 174/72 H Pulse Oximetry 98 96 Oxygen Delivery Method Nasal Cannula Nasal Cannula Oxygen Flow Rate 3 3 10/25/24 17:01 10/25/24 17:30 10/25/24 17:31 Temperature Pulse Rate 74 72 Respiratory Rate 21 23 Blood Pressure 175/73 H Pulse Oximetry 96 97 Oxygen Delivery Method Nasal Cannula Oxygen Flow Rate 3 10/25/24 17:31 10/25/24 18:00 10/25/24 18:00 Temperature Pulse Rate 74 73 Respiratory Rate 19 Blood Pressure 176/74 H Pulse Oximetry 97 98 Oxygen Delivery Method Oxygen Flow Rate MDM - SOB/Dyspnea Lab Data 10/25/24 11:36 10/25/24 11:36 Labs: Lab Results 10/25/24 10/25/24 10/25/24 Range/Units 11:36 13:38 13:50 WBC 10.7 (4.5-11.0) X10^3/uL RBC 4.61 (4.0-5.2) X10^6/uL Hgb 11.6 L (12.0-16.0) g/dL Hct 36.2 (36-46) % MCV 78.6 L (80-100) fL MCH 25.2 L (26-34) PG MCHC 32.1 (30-36) % RDW 19.2 H (11.6-14.8) % Plt Count 106 L (150-400) X10^3/uL Neut % (Auto) 77.4 H (50-75) % Lymph % (Auto) 15.6 L (25-40) % [place] % (Auto) 5.5 (3-14) % Eos % (Auto) 0.7 L (2-4) % Baso % (Auto) 0.8 (0-2) % Neut # (Auto) 8300 H (3133-5476) /uL Lymph # (Auto) 1700 (9303-0708) /uL [place] # (Auto) 600 (0-900) /uL Eos # (Auto) 100 (0-450) /uL Baso # (Auto) 100 (0-100) /uL PT 11.0 (9.4-12.5) SECONDS INR 1.0 (0.9-1.3) Sodium 135 L (137-145) mmol/L Potassium 4.4 (3.4-5.1) mmol/L Chloride 100 (98-107) mmol/L Carbon Dioxide 28 (22-32) mmol/L BUN 20 H (7-17) mg/dL Creatinine 0.93 (0.52-1.04) mg/dL Estimated GFR 60 (>60) mL/min BUN/Creatinine Ratio 21.5 (6-22) Glucose 128 H (70-99) mg/dL Lactate 2.0 (0.7-2.1) mmol/L Calcium 9.1 (8.4-10.2) mg/dL Total Bilirubin 0.6 (0.2-1.3) mg/dL AST 23 (14-36) IU/L ALT 11 (<35) IU/L Alkaline Phosphatase 47 (38-126) U/L Troponin I 0.026 0.024 (0.01-0.034) ng/mL NT-Pro-B Natriuret Pep 754 H (<450) pg/mL Total Protein 6.6 (6.3-8.2) g/dL Albumin 3.9 (3.5-5.0) g/dL Globulin 2.7 (1.7-4.1) g/dL Albumin/Globulin Ratio 1.4 (1.0-2.8) SARS-CoV-2 (PCR) Negative (Negative) Influenza A (RT-PCR) Flu a negative (NEGATIVE) Influenza B (RT-PCR) Flu b negative (NEGATIVE) RSV (PCR) Negative (Negative) ECG Data Attestation: I personally reviewed and interpreted this ECG as follows: Prior ECG tracings: available for review Interpretation: Sinus rhythm first-degree AV block, incomplete right bundle, rate of 68 NV 218 QRS of 102 QTC of 497. Patient was prior from 08/23/2019 which shows no acute changes appears similar to today. MDM Narrative Medical decision making narrative: Labs show a white count of 10 hemoglobin 11.6 looks like she was 11-12 at baseline for the past 2 months, microcytic, platelets are 106 was 254 in August. INR is 1. Sodium 135, BUN 20, electrolytes are otherwise appropriate glucose is 128, lactate 2, LFTs are negative, BNP is 754, troponin 0.026. Repeat troponin slightly down at 0.024 Chest x-ray shows no acute cardiopulmonary pathology. EKG EKG shows sinus rhythm first-degree AV block incomplete right bundle. CT angio, was not attempted patient has contrast infiltrated. Discussed with the patient with the baby willing to attempt again if we can obtain IV access. They are willing did obtain CT chest from [facility] CT without contrast on 10/14/2024 from outside facility report nose nonspecific peripheral reticular thickening most consistent with a interstitial lung disease not significantly changed compared to 2019, trace bilateral pleural effusions. Nodular thickening right breast. The nipple not significantly changed could be scarring. CT angio on re-attempt shows no pulmonary embolism, trace bilateral pleural effusions, moderate cardiomegaly. Moderate prominent coronary artery calcification can seen. Subpleural pulmonary fibrotic changes seen. Stable nodular thickening of the right breast seen superior to the nipple if not already previously worked up follow up diagnostic mammogram to be recommended if clinically appropriate. Patient had PFT on September 03, 2024 notes patient has been on O2 since COVID-19 positive in 2020 I FVC was found to be acceptable but not reproducible very effort on all attempts otherwise meeting ats criteria for acceptability reproducibility 2.5 mg albuterol use his bronchodilator. Moderate restrictive ventilatory defect no air trapping no definite obstruction. No significant response to bronchodilators severe depressed gas exchange. Flow volume loop is normal. No prior study for comparison. Patient did have infiltration, ice packs were applied, area was bandaged discussed discharge instructions and treatment for this in particular these were reviewed with the patient. Watch signs and symptoms to watch for. Patient notes the change hob of her right breast is a piece of silicone that has keep from prior implant. She was aware of it. Discharge Plan Departure Patient Disposition: Home Clinical Impression: Dyspnea on exertion Activity Restrictions/Additional Instructions: Your workup today does not show any blood clots, I would recommend short increase in your steroids to see if that is helpful and a brief increase in your Lasix. You do have a lot of coronary artery calcifications so would be appropriate to follow up with your physician for further cardiac evaluation. That is also noted that you have stable nodular thickening of the right breast superior to the nipple, if you have not been following with mammograms regularly you should have one. You can take steroids daily until gone. I would recommend increasing your furosemide to 40 mg daily for the next 3 days (prescription printed) Prescription sent to [facility] in [place]. Please return if you have new or worsening symptoms. Prescriptions: New prednisone 10 mg tablets,dose pack See Rx Instructions .ROUTE .COMPLEX Qty: 30 0RF Rx Instructions: Take 40 mg x 3 days, then 30 mg x 3 days, then 20 mg x 3 days, then 10 mg x 3 days, then return to your normal dose of 5 mg daily prednisone 10 mg tablets,dose pack 10 mg PO DAILY Qty: 21 0RF No Action aspirin 81 MG tablet,delayed release (DR/EC) 81 mg PO DAILY Qty: 0 pantoprazole 40 mg Tablet,Delayed Release (Dr/Ec) 40 mg PO DAILY escitalopram oxalate 20 mg Tablet 20 mg PO DAILY furosemide 20 mg tablet 20 mg PO DAILY metoprolol tartrate 25 mg tablet 12.5 mg PO BID Rx Instructions: 1/2 tablet = 12.5 mg BID - AM & PM (DME) pen needle, diabetic [Pen Needle] 31 gauge x 3/16 needle See Rx Instructions .Route Qty: 100 0RF Rx Instructions: Once daily with insulin pen needle (DME) blood-glucose meter [Blood Glucose Monitoring] Kit See Rx Instructions .Route Qty: 1 0RF Rx Instructions: One blood glucose meter (DME) Blood Glucose Test Strip See Rx Instructions .Route Qty: 100 0RF Rx Instructions: Check glucose 3-4 times daily, in AM and before meals nitroglycerin 0.4 mg tablet, sublingual 1 tab sublingual [id number] PRN (Reason: Chest Pain) Patient Comments: take it when needed, last dose unknown rosuvastatin 40 mg tablet 40 mg PO QPM acetaminophen-codeine 300-30 mg tablet 1 tab PO BID PRN (Reason: pain) ipratropium-albuterol 0.5 mg-3 mg(2.5 mg base)/3 mL solution for nebulization 3 ml inhalation DIRECTED PRN (Reason: sob, wheezing) ranolazine 500 mg tablet extended release 12 hr 500 mg PO BID Referrals: Zoe Bass PA-C [Primary Care Provider, Medical] Stand Alone Forms: Patient Portal/API
--- NOTE | 2024-10-25 13:28 | DI.CT.S_ITS ---
PROCEDURE: CT ANGIO CHEST PE PROTOCOL INDICATIONS: L chest pain, increased dyspnea, leg swelling, travel TECHNIQUE: After the administration of intravenous contrast, 2 mm thick sections acquired from the pulmonary apices to the posterior costophrenic angles. 3-dimensional maximum intensity projection (MIP) coronal and sagittal reformats were then acquired through the thorax. For radiation dose reduction, the following was used: automated exposure control, adjustment of mA and/or kV according to patient size. COMPARISON: Outside Facility, CT, CT CHEST WO CON, 10/14/2024, 10:25. [facility], CR, XR CHEST 1V, 10/25/2024, 11:14. [facility], CT, CT ANGIO CHEST PE PROTOCOL, 12/21/2022, 22:52. FINDINGS: Image quality: Diagnostic. Pulmonary arteries: Pulmonary arteries are normal in size, and demonstrate no intraluminal filling defects to suggest central pulmonary embolism. Lower Neck: No enlarged lymph nodes. Thyroid: No thyroid nodules which require sonographic follow up, per consensus guidelines. Axillae: No enlarged lymph nodes. Chest Wall: There is stable nodular thickening seen of the right breast superior to the nipple. Bones: Generalized degenerative changes are seen, including involving both shoulders. Accentuated thoracic kyphosis is seen. Chronic, stable anterior wedge deformities are seen, including at T7 and T10 Lungs and Pleura: Trace bilateral pleural effusions can be seen. Mild subpleural fibrosis can be seen, which is worst inferiorly. Heart: Heart size is moderately enlarged. No pericardial effusion. There is a moderate to prominent coronary artery calcification. Thoracic Vessels: No aortic aneurysm. Mediastinum and [place]: No enlarged lymph nodes. Esophagus: No wall thickening. There is a moderate hiatal hernia. Upper Abdomen: Visualized upper abdomen solid organs and bowel loops appear normal. IMPRESSION: No pulmonary embolus. Trace bilateral pleural effusions are seen. There is moderate cardiomegaly. Moderate to prominent coronary artery calcification can be seen. Subpleural pulmonary fibrotic changes are seen. Stable nodular thickening of the right breast can be seen superior to the nipple. If not already previously worked up, then follow-up diagnostic mammogram would be recommended, if clinically appropriate. Additional findings: Stable chronic thoracic spine anterior wedge deformities the Moderate hiatal hernia Dictated by: Venkat Tucker M.D. on 10/25/2024 at 16:15 Approved by: Venkat Tucker M.D. on 10/25/2024 at 16:19
[2024-10-25] MEDS: methylPREDNISolone 125 MG/2 ML VIAL IV (13:55)
[2024-10-25] MEDS: diphenhydrAMINE 50 MG/ML VIAL IV (13:56)
[2024-10-25 14:19] LABS: Influenza A - CEPHEID Flu A NEGATIVE (NEGATIVE); Influenza B - CEPHEID Flu B NEGATIVE (NEGATIVE); Respiratory Syncytial Virus Negative (Negative)
[2024-10-25 14:25] LABS: Troponin I 0.024 ng/mL (0.01-0.034)
[2024-10-25 14:26] LABS: COVID-19 CEPHEID 4-PLEX PCR Negative (Negative)
--- NOTE | 2024-10-25 15:44 | PC.NURSE ---
MD Riggins informed of hg and hct labels.
== END 2024-10-25 18:50 | disposition home or self-care (01) ==
PROVIDERS: Emergency Provider Emergency Medicine; Family Provider Internal Medicine; PCP Physician Assistant Medical
DX: R06.09 Other forms of dyspnea (principal); J84.9 Interstitial pulmonary disease, unspecified; Z99.81 Dependence on supplemental oxygen; I45.10 Unspecified right bundle-branch block; I44.0 Atrioventricular block, first degree
CPT/HCPCS: 0241U; 36415; 71045; 71275; 80053; 83605; 83880; 84484; 85025; 85610; 93005; 96374; 96375; 99285; J1200; J2919; Q9967

== ENCOUNTER 2024-12-15 12:34 | Inpatient (IN) | payer MEDICARE, OTHER, SELFPAY ==
[2024-01-25 23:22] VITALS: BMI 42.5
[2024-12-15] VITALS (20 sets, daily range): BP systolic 135–198; BP diastolic 43–110; PULSE 64–82; RESP 20–26; TEMP 35.9–36.5; O2SAT 96–100; BMI 43.4; BMI 42.9
--- NOTE | 2024-12-15 12:47 | DI.RAD.S_ITS ---
PROCEDURE: XR CHEST 1V INDICATIONS: Chest Pain TECHNIQUE: One view of the chest was acquired. COMPARISON: [facility], CT, CT ANGIO CHEST PE PROTOCOL, 10/25/2024, 16:07. [facility], CR, XR CHEST 1V, 08/22/2024, 23:23. [facility], CR, XR CHEST 1V, 10/25/2024, 11:14. FINDINGS: Surgical changes and devices: None. Lungs and pleura: An incomplete inspiratory result is noted, causing a crowded appearance to the lung markings. No focal infiltrates are seen. Mild interstitial prominence can be seen. No pneumothorax or significant pleural effusions are seen. Mediastinum: Mediastinal contours appear normal. Heart size is moderately enlarged. Atherosclerotic calcification of the aortic arch is noted. Bones and chest wall: No suspicious bony lesions. Age-appropriate bony degenerative changes are seen. Overlying soft tissues appear unremarkable. IMPRESSION: Low lung volumes with mild interstitial prominence and cardiomegaly. Please consider CHF. Dictated by: Venkat Tucker M.D. on 12/15/2024 at 12:38 Approved by: Venkat Tucker M.D. on 12/15/2024 at 12:39
--- NOTE | 2024-12-15 12:53 | EKG_ITS ---
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
--- NOTE | 2024-12-15 15:51 | ED.SOB ---
HPI - SOB/Dyspnea General Chief Complaint: Shortness of Breath/Dyspnea Stated Complaint: SOB, pain in upper abd, cough, light headed Time Seen by Provider: 12/15/24 15:29 Source: patient Mode of arrival: Wheelchair Limitations: no limitations History of Present Illness HPI Narrative: 88-year-old female history of CHF, coronary artery disease with prior cardiac stents, hypertension, dyslipidemia, interstitial lung disease on home O2 at 3 L who presents with complaint of increased shortness of breath. She has an anasarca picture and has gained 10lbs over the past week. She has increased her lasix from 20mg to 40mg recently but still is gaining weight rapidly. She denies chest pain or any other symptoms. [employer] otherwise negative Related Data Home Medications ?Medication ?Instructions ?Recorded ?Confirmed aspirin 81 mg tablet,delayed 81 mg PO DAILY ##0 05/14/17 10/16/24 release nitroglycerin 0.4 mg sublingual 1 tab sublingual [id number] PRN Chest 11/18/18 10/16/24 tablet Pain rosuvastatin 40 mg tablet 40 mg PO QPM 11/18/18 10/16/24 escitalopram oxalate 20 mg tablet 20 mg PO DAILY 03/06/21 10/16/24 pantoprazole 40 mg tablet,delayed 40 mg PO DAILY 03/06/21 10/16/24 release furosemide 20 mg tablet 20 mg PO DAILY 01/11/23 10/16/24 metoprolol tartrate 25 mg tablet 12.5 mg PO BID 01/31/24 10/16/24 acetaminophen 300 mg-codeine 30 mg 1 tab PO BID PRN pain 07/03/24 10/16/24 tablet ipratropium 0.5 mg-albuterol 3 mg 3 ml inhalation DIRECTED PRN 07/03/24 10/16/24 (2.5 mg base)/3 mL nebulization sob, wheezing soln ranolazine 500 mg tablet,extended 500 mg PO BID 07/03/24 10/16/24 release,12 hr Previous Rx's ?Medication ?Instructions ?Recorded blood sugar diagnostic (Blood #100 ea 02/01/24 Glucose Test strips) blood-glucose meter (Blood Glucose #1 ea 02/01/24 Monitoring kit) pen needle, diabetic 31 gauge x #100 ea 02/01/2407/28 (Pen Needle) prednisone 10 mg tablets in a dose See Rx Instructions PO .COMPLEX 10/25/24 pack #30 ea prednisone 10 mg tablets in a dose 10 mg PO DAILY #21 ea 10/26/24 pack Allergies Allergy/AdvReac Type Severity Reaction Status Date / Time Iodinated Contrast Media Allergy Severe Unconscious Verified 12/15/24 12:43 (IODINATED CONTRAST- ORAL AND IV DYE) morphine (MORPHINE) Allergy Severe Rash Verified 12/15/24 12:43 telmisartan (TELMISARTAN) Allergy Severe Rash Verified 12/15/24 12:43 Patient History Medical History Chronic respiratory failure with hypoxia Skin cancer NSTEMI (non-ST elevated myocardial infarction) Diastolic heart failure Cardiac arrest Chest pain Hypertension Hyperlipidemia Coronary artery disease Left hamstring muscle strain UTI (urinary tract infection) Surgical History H/O right heart catheterization History of breast implant removal History of breast surgery History of appendectomy History of cholecystectomy History of total abdominal hysterectomy History of coronary artery stent placement Family History Father Hypertension Diabetes mellitus Mother Hypertension [place] (myocardial infarction) Sister MS (myocardial infarction) S/P CABG x 4 Social History household members: children Smoking Status: Never smoker Smoking Status: Never smoker alcohol intake frequency: holidays/special occasions only Exam Narrative Exam Narrative: General: Patient appears to be in no acute distress, acting appropriately Head: normocephalic, atraumatic, HEENT: Pupils equal round reactive, eyes tracking well, neck supple, no JVD ext: 3-4 plus pitting edema/anasarca picture Heart: regular rate and rhythm, no murmurs, rubs, or gallops heard Lungs: clear to auscultation, no adventitious sounds Abdomen: distended, full Neurological: no focal neurological signs, moving all extremities well, alert and oriented x3, Psych: good judgment ,good insight, mood is normal. Initial Vital Signs Initial Vital Signs: Vital Signs Temperature 97.7 F 12/15/24 12:42 Pulse Rate 64 12/15/24 12:42 Respiratory Rate 20 12/15/24 12:42 Blood Pressure 152/65 H 12/15/24 12:42 Pulse Oximetry 99 12/15/24 12:42 Oxygen Delivery Method Nasal Cannula 12/15/24 12:42 Oxygen Flow Rate 4 12/15/24 12:42 Course Course Course Narrative: We will treat the patient as a CHF exacerbation versus interstitial lung disease. We will give the patient a breathing treatment as well as Lasix 40 mg IV. Patient will likely need to be admitted for more diuresing. Orders Ordered: ED Orders 12/15/24 12:47 XR chest 1V Stat EKG-12 Lead Stat 12/15/24 16:19 Complete Blood Count AUTO DIFF Stat Comprehensive Metabolic Panel Stat Lipase Stat Magnesium Stat NT-proBNP (BNP-Adult 18+) Stat Troponin & CK Cardiac Panel Stat 12/15/24 17:10 PTT Partial Thromboplastin Garo Stat Prothrombin Time INR Stat Discontinued Medications Albuterol (Albuterol 2.5 Mg/3 Ml Neb (Adult)) 2.5 mg INH NOW ONE Stop: 12/15/24 15:52 Last Admin: 12/15/24 15:54 Dose: 2.5 mg Documented By: ANTONIO Aspirin (Aspirin 81 Mg Chew Tab) 324 mg PO NOW ONE Stop: 12/15/24 12:48 Last Admin: 12/15/24 16:07 Dose: 324 mg Documented By: JOSHUA Furosemide (Furosemide 40 Mg/4 Ml Vial) 40 mg IV NOW ONE Stop: 12/15/24 15:42 Last Admin: 12/15/24 16:07 Dose: 40 mg Documented By: JOSHUA Consultations Consultation #1: consulted Dr. Saini who graciously we will admit the patient for a CHF exacerbation. Vital Signs Vital signs: Vital Signs - 8 hr 12/15/24 12:42 12/15/24 15:19 12/15/24 15:19 Temperature 97.7 F Pulse Rate 64 80 Respiratory Rate 20 Blood Pressure 152/65 H 177/110 H Pulse Oximetry 99 98 Oxygen Delivery Method Nasal Cannula Nasal Cannula Oxygen Flow Rate 4 2 12/15/24 15:21 12/15/24 15:21 12/15/24 15:30 Temperature Pulse Rate 78 77 Respiratory Rate Blood Pressure 196/91 H Pulse Oximetry 100 100 Oxygen Delivery Method Nasal Cannula Oxygen Flow Rate 2 12/15/24 15:31 12/15/24 15:31 12/15/24 16:00 Temperature Pulse Rate 73 76 Respiratory Rate Blood Pressure 171/76 H Pulse Oximetry 100 99 Oxygen Delivery Method Nasal Cannula Nasal Cannula Oxygen Flow Rate 2 2 MDM - SOB/Dyspnea Differential Diagnosis Differential diagnosis: Likely congestive heart failure, pulmonary embolism and other (interstitial lung disease ) Lab Data 12/15/24 16:19 12/15/24 16:19 Labs: Lab Results 12/15/24 12/15/24 Range/Units 16:19 17:10 WBC 10.2 (4.5-11.0) X10^3/uL RBC 4.96 (4.0-5.2) X10^6/uL Hgb 12.4 (12.0-16.0) g/dL Hct 38.7 (36-46) % MCV 78.1 L (80-100) fL MCH 24.9 L (26-34) PG MCHC 31.9 (30-36) % RDW 18.8 H (11.6-14.8) % Plt Count 229 (150-400) X10^3/uL Neut % (Auto) 76.8 H (50-75) % Lymph % (Auto) 16.4 L (25-40) % [place] % (Auto) 5.7 (3-14) % Eos % (Auto) 0.5 L (2-4) % Baso % (Auto) 0.6 (0-2) % Neut # (Auto) 7800 H (6247-1060) /uL Lymph # (Auto) 1700 (3414-3185) /uL [place] # (Auto) 600 (0-900) /uL Eos # (Auto) 100 (0-450) /uL Baso # (Auto) 100 (0-100) /uL PT 11.7 (9.4-12.5) SECONDS INR 1.0 (0.9-1.3) APTT 23 L (25.1-36.5) SECONDS Sodium 133 L (137-145) mmol/L Potassium 4.3 (3.4-5.1) mmol/L Chloride 98 (98-107) mmol/L Carbon Dioxide 23 (22-32) mmol/L BUN 24 H (7-17) mg/dL Creatinine 1.07 H (0.52-1.04) mg/dL Estimated GFR 50 L (>60) mL/min BUN/Creatinine Ratio 22.4 H (6-22) Glucose 267 H (70-99) mg/dL Calcium 9.3 (8.4-10.2) mg/dL Magnesium 1.9 (1.6-2.3) mg/dL Total Bilirubin 0.7 (0.2-1.3) mg/dL AST 31 (14-36) IU/L ALT 12 (<35) IU/L Alkaline Phosphatase 51 (38-126) U/L Total Creatine Kinase 109 (30-135) U/L Troponin I 0.031 (0.01-0.034) ng/mL NT-Pro-B Natriuret Pep 736 H (<450) pg/mL Total Protein 6.6 (6.3-8.2) g/dL Albumin 4.0 (3.5-5.0) g/dL Globulin 2.6 (1.7-4.1) g/dL Albumin/Globulin Ratio 1.5 (1.0-2.8) Lipase 170 (23-300) U/L ECG Data Interpretation: EKG shows a normal sinus rhythm with a rightward axis and an incomplete right bundle branch block prolonged QT. Previous EKG showed the following below Sinus rhythm with 1st degree AV block Incomplete right bundle branch block Possible Right ventricular hypertrophy Prolonged QT MDM Narrative Medical decision making narrative: Due to the patient's CHF fluid overload picture, it was decided to admit the patient for a CHF exacerbation. Patient given 40 mg IV Lasix to begin diuresis. Discharge Plan Departure Patient Disposition: Admitted As Inpatient Clinical Impression: CHF (congestive heart failure) Qualifiers: Heart failure type: unspecified Heart failure chronicity: acute on chronic Qualified Code(s): I50.9 - Heart failure, unspecified
[2024-12-15] MEDS: ALBUTEROL 2.5 MG/3 ML NEB (ADULT) INH (15:54)
[2024-12-15] MEDS: ASPIRIN 81 MG CHEW TAB 324 MG PO (16:07)
[2024-12-15] MEDS: FUROSEMIDE 40 MG/4 ML VIAL IV (16:07)
[2024-12-15 16:36] LABS: Add Manual Diff / Slide Review NO; Hematocrit 38.7 % (36-46); Hemoglobin 12.4 g/dL (12.0-16.0); Lymphocytes Absolute Auto 1700 /uL (1100-4500); Mean Corpuscular HGB Conc 31.9 % (30-36); Mean Corpuscular Hemoglobin 24.9 PG (26-34); Mean Corpuscular Volume 78.1 fL (80-100); Platelet Count 229 X10^3/uL (150-400)
[2024-12-15 16:57] LABS: Alanine Aminotransferase 12 IU/L (<35); Albumin 4.0 g/dL (3.5-5.0); Albumin Globulin Ratio 1.5 (1.0-2.8); Alkaline Phosphatase 51 U/L (38-126); Blood Urea Nitrogen 24 mg/dL (7-17); Calcium 9.3 mg/dL (8.4-10.2); Carbon Dioxide 23 mmol/L (22-32); Chloride 98 mmol/L (98-107); Creatine Kinase 109 U/L (30-135); Estimated Glomerular Filt Rate 50 mL/min (>60); Globulin 2.6 g/dL (1.7-4.1); Glucose 267 mg/dL (70-99); Lipase 170 U/L (23-300); Magnesium 1.9 mg/dL (1.6-2.3); Sodium 133 mmol/L (137-145); Total Protein 6.6 g/dL (6.3-8.2)
[2024-12-15 16:59] LABS: HEMOLYSIS 81 (0-50); Potassium 4.3 mmol/L (3.4-5.1)
[2024-12-15 17:21] LABS: NT-proBNP (BNP-Adult 18+) 736 pg/mL (<450); Troponin I 0.031 ng/mL (0.01-0.034)
[2024-12-15 17:23] LABS: INR 1.0 (0.9-1.3); Prothrombin Time 11.7 SECONDS (9.4-12.5)
[2024-12-15 17:25] LABS: PTT Partial Thromboplastin Tim 23 SECONDS (25.1-36.5)
--- NOTE | 2024-12-15 19:11 | PM.HP.IH.1 ---
History of Present Illness History of Present Illness Date Patient Seen: 12/15/24 Time Patient Seen: 17:30 Chief complaint: SOB, pain in upper abd, cough, light headed Narrative: 89-year-old woman under the primary care of Dr. Zoe Bass, [facility], and Dr. Eva Ellington of Cardiology with Chronic diastolic CHF (HFpEF) presents with 1 week of progressive edema and weight gain. She initially gained 3 lb and took an extra dose of Lasix, and when up to 4 lb, took another extra dose, but failed to see an improvement and gained 10 lb of fluid, with associated abdominal distention and increasing fluid retention in her legs, with associated orthopnea and paroxysmal nocturnal dyspnea. She presented with her daughter to the emergency department with normal oxygen levels, elevated NT pro BNP of 736, clinical and radiographic findings of congestive heart failure, and administered IV furosemide. She is admitted for further evaluation and management. [facility] Medical History Cardiac arrest Chest pain Chronic respiratory failure with hypoxia Coronary artery disease Diastolic heart failure Hyperlipidemia Hypertension Left hamstring muscle strain NSTEMI (non-ST elevated myocardial infarction) Skin cancer UTI (urinary tract infection) Surgical History H/O right heart catheterization History of appendectomy History of breast implant removal History of breast surgery History of cholecystectomy History of coronary artery stent placement History of total abdominal hysterectomy Family History Father Hypertension Diabetes mellitus Mother Hypertension [place] (myocardial infarction) Sister [place] (myocardial infarction) S/P CABG x 4 Social History household members: children Smoking Status: Never smoker Meds Home Medications and Allergies Home Medications ?Medication ?Instructions ?Recorded ?Confirmed ?Type aspirin 81 mg tablet,delayed 81 mg PO DAILY ##0 05/14/17 10/16/24 History release nitroglycerin 0.4 mg sublingual 1 tab sublingual [id number] PRN Chest 11/18/18 10/16/24 History tablet Pain rosuvastatin 40 mg tablet 40 mg PO QPM 11/18/18 10/16/24 History escitalopram oxalate 20 mg tablet 20 mg PO DAILY 03/06/21 10/16/24 History pantoprazole 40 mg tablet,delayed 40 mg PO DAILY 03/06/21 10/16/24 History release furosemide 20 mg tablet 20 mg PO DAILY 01/11/23 10/16/24 History metoprolol tartrate 25 mg tablet 12.5 mg PO BID 01/31/24 10/16/24 History blood sugar diagnostic (Blood #100 ea 02/01/24 10/16/24 Rx Glucose Test strips) blood-glucose meter (Blood Glucose #1 ea 02/01/24 10/16/24 Rx Monitoring kit) pen needle, diabetic 31 gauge x #100 ea 02/01/24 10/16/24 Rx 3/16 (Pen Needle) acetaminophen 300 mg-codeine 30 mg 1 tab PO BID PRN pain 07/03/24 10/16/24 History tablet ipratropium 0.5 mg-albuterol 3 mg 3 ml inhalation DIRECTED PRN 07/03/24 10/16/24 History (2.5 mg base)/3 mL nebulization sob, wheezing soln ranolazine 500 mg tablet,extended 500 mg PO BID 07/03/24 10/16/24 History release,12 hr prednisone 10 mg tablets in a dose See Rx Instructions PO .COMPLEX 10/25/24 Rx pack #30 ea prednisone 10 mg tablets in a dose 10 mg PO DAILY #21 ea 10/26/24 Rx pack Allergies Allergy/AdvReac Type Severity Reaction Status Date / Time Iodinated Contrast Media Allergy Severe Unconscious Verified 12/15/24 12:43 (IODINATED CONTRAST- ORAL AND IV DYE) morphine (MORPHINE) Allergy Severe Rash Verified 12/15/24 12:43 telmisartan (TELMISARTAN) Allergy Severe Rash Verified 12/15/24 12:43 Review of Systems Review of Systems ROS: Yes All systems reviewed with the patient and are negative except as otherwise documented Exam Vital Signs (past 8 hours): - 12/15/24 12:42 12/15/24 15:19 12/15/24 15:19 Temperature 97.7 F Pulse Rate 64 80 Respiratory Rate 20 Blood Pressure 152/65 H 177/110 H Pulse Oximetry 99 98 Oxygen Delivery Method Nasal Cannula Nasal Cannula Oxygen Flow Rate 4 2 12/15/24 15:21 12/15/24 15:21 12/15/24 15:30 Temperature Pulse Rate 78 77 Respiratory Rate Blood Pressure 196/91 H Pulse Oximetry 100 100 Oxygen Delivery Method Nasal Cannula Oxygen Flow Rate 2 12/15/24 15:31 12/15/24 15:31 12/15/24 16:00 Temperature Pulse Rate 73 76 Respiratory Rate Blood Pressure 171/76 H Pulse Oximetry 100 99 Oxygen Delivery Method Nasal Cannula Nasal Cannula Oxygen Flow Rate 2 2 12/15/24 16:30 12/15/24 16:52 12/15/24 16:52 Temperature Pulse Rate 76 75 Respiratory Rate Blood Pressure 167/68 H Pulse Oximetry 99 97 Oxygen Delivery Method Oxygen Flow Rate 12/15/24 17:00 12/15/24 17:00 12/15/24 17:30 Temperature Pulse Rate 72 82 Respiratory Rate Blood Pressure 161/68 H Pulse Oximetry 98 97 Oxygen Delivery Method Nasal Cannula Oxygen Flow Rate 2 12/15/24 17:31 12/15/24 17:31 12/15/24 18:00 Temperature Pulse Rate 80 77 Respiratory Rate Blood Pressure 198/80 H Pulse Oximetry 97 98 Oxygen Delivery Method Nasal Cannula Nasal Cannula Oxygen Flow Rate 2 2 12/15/24 18:01 12/15/24 18:01 12/15/24 18:30 Temperature Pulse Rate 77 74 Respiratory Rate Blood Pressure 165/71 H Pulse Oximetry 98 98 Oxygen Delivery Method Nasal Cannula Oxygen Flow Rate 2 12/15/24 18:30 Temperature Pulse Rate Respiratory Rate Blood Pressure 152/73 H Pulse Oximetry Oxygen Delivery Method Oxygen Flow Rate Oxygen Delivery Method Nasal Cannula Oxygen Flow Rate 2 Narrative Exam Narrative: GENERAL: This is a well-nourished, well-developed patient, mildly dyspneic with speaking, otherwise in no apparent distress. HEAD: Atraumatic. Normocephalic. No temporal or scalp tenderness. EYES: Pupils equal round and reactive. Extraocular motions intact. No scleral icterus. No injection or drainage. ENT: Mucous membranes pink and moist. NECK: Supple, nontender, no meningeal signs. JVD difficult to assess due to obesity. CARDIOVASCULAR: Regular rate and rhythm without murmurs, gallops, or rubs. RESPIRATORY: Coarse crackles lower 1/3 bilaterally, reduced breath sounds. GASTROINTESTINAL: Abdomen soft, non-tender, distended. EXTREMITIES: 1+ edema. BACK: Nontender without deformity or crepitance. No flank tenderness. NEUROLOGIC: Alert, oriented, speech fluent, full upper and lower motor strength, no focal deficits evident. DERMATOLOGIC: No rashes or skin lesions. Objective ECG Impression: Normal sinus rhythm at 64 beats per minute Rightward axis Incomplete right bundle branch block Prolonged QTc 495msec Imaging Chest x-ray: Radiologist's impression: Low lung volumes with mild interstitial prominence and cardiomegaly. Please consider CHF. Echocardiogram 01/26/2024:: Radiologist's impression: The ejection fraction is estimated to be 60-65%. There is mild mitral stenosis. The mitral valve mean gradient is 5.3 mmHg. There is mildly reduced leaflet mobility. The calculated aortic valve area is 1.8 cm2. There is no pericardial effusion. Labs 12/15/24 16:19 12/15/24 16:19 Labs: Laboratory Results - last 24 hr 12/15/24 12/15/24 16:19 17:10 WBC 10.2 RBC 4.96 Hgb 12.4 Hct 38.7 MCV 78.1 L MCH 24.9 L MCHC 31.9 RDW 18.8 H Plt Count 229 Neut % (Auto) 76.8 H Lymph % (Auto) 16.4 L [place] % (Auto) 5.7 Eos % (Auto) 0.5 L Baso % (Auto) 0.6 Neut # (Auto) 7800 H Lymph # (Auto) 1700 [place] # (Auto) 600 Eos # (Auto) 100 Baso # (Auto) 100 PT 11.7 INR 1.0 APTT 23 L Sodium 133 L Potassium 4.3 Chloride 98 Carbon Dioxide 23 BUN 24 H Creatinine 1.07 H Estimated GFR 50 L BUN/Creatinine Ratio 22.4 H Glucose 267 H Calcium 9.3 Magnesium 1.9 Total Bilirubin 0.7 AST 31 ALT 12 Alkaline Phosphatase 51 Total Creatine Kinase 109 Troponin I 0.031 NT-Pro-B Natriuret Pep 736 H Total Protein 6.6 Albumin 4.0 Globulin 2.6 Albumin/Globulin Ratio 1.5 Lipase 170 Assessment & Plan Assessment & Plan narrative: 1. Acute on chronic heart failure with preserved ejection fraction. Admit to observation, diurese, follow clinically. Repeat echocardiogram. 2. Coronary artery disease with history of non STEMI and cardiac arrest. Monitor serial cardiac enzymes, normal at this point. 3. Hypertension. Continue routine medication. 4. Hyperlipidemia. Continue statin therapy. 5. GERD. Continue PPI. plan: - admit to observation -IV furosemide 40 mg every 8 hours -serial cardiac enzymes -monitor on telemetry -Monitor electrolytes DVT prophylaxis: Subcutaneous Lovenox Code status: Full code. The patient clearly states she wishes full measures in the in cardiac arrest, and that her surrogate decision maker is her daughter Beronica sewell. [employer] Document charge(s): No Charge Codes Initial inpatient/observation care: [id number]
--- NOTE | 2024-12-15 19:17 | DI.ECHO.S_ITS ---
[place]---------+ [facility] : : [address] : [address] [address] : : [id number] : : Phone: [phone] Echocardiogram Report + + :Name: BASIA العراقي Study Date: 12/16/2024 Height: 61 in : :Hospital ReadingLocation: Weight: 230 lb : : Gender: Female BSA: 2.0 m2 : :: 1935 Age: 89 yrs BP: 115/40 mmHg: :Reason For Study: CONGESTIVE HEART FAILURE : :Ordering Physician: NEW, : :REJI Performed By: Bebe Alexandra : :Referring: REJI WOLFF : + + Interpretation Summary The study quality was technically difficult. The left ventricular cavity is small. The ejection fraction is estimated to be 65-70%. Diastolic parameters suggest a relaxation abnormality of the left ventricle, consistent with probable normal filling pressures. There is no hemodynamically significant valvular aortic stenosis. There is mild to moderate mitral annular calcification. The mitral valve mean gradient is 3.3 mmHg. Comparison is made with the echocardiogram of 01/26/2024, no significant change. Procedure: A two-dimensional transthoracic echocardiogram with color flow and Doppler was performed. The study quality was technically difficult. Comparison is made with the echocardiogram of 01/26/2024. The patient was in sinus rhythm with heart rates between 68-74 bpm during the exam. Left Ventricle: The left ventricular cavity is small. The ejection fraction is estimated to be 65-70%. There are no focal wall motion abnormalities. Diastolic parameters suggest a relaxation abnormality of the left ventricle, consistent with probable normal filling pressures. Right Ventricle: The right ventricle grossly appears normal in size with probable normal systolic function. Atria: The left atrial size is normal. Right atrium not well visualized. There is no Doppler evidence for an interatrial shunt. Interatrial septal thickening is noted. Mitral Valve: The mitral valve chordae are thickened and/or calcified. There is mild to moderate mitral annular calcification. The mitral valve leaflets are mildly calcified. The mitral valve mean gradient is 3.3 mmHg. There is trace mitral regurgitation. Aortic Valve: The aortic valve is trileaflet. The aortic valve is mildly calcified. There is no hemodynamically significant valvular aortic stenosis. The peak aortic velocity is 2.05 m/sec. The aortic valve mean gradient is 9 mmHg. The calculated aortic valve area is 1.6 cm2. There is trace aortic regurgitation. Tricuspid Valve: The tricuspid valve is not well visualized. No tricuspid regurgitation. Pulmonary artery pressures cannot be estimated because of the lack of a measurable TR jet velocity but the IVC suggests a CVP of around 3 mmHg. Pulmonic Valve: The pulmonic valve is not well seen, but is grossly normal. There is trace pulmonic regurgitation. Great Vessels: The aortic root is normal size. The dimensions of the ascending aorta are normal. The IVC is of normal diameter and collapses greater than 50% with a sniff. This suggests a low right atrial pressure of 3 mm Hg. Pericardium/ Pleura There is a trivial to small pericardial effusion noted. There is no pleural effusion. MMode/2D Measurements & Calculations LVIDd: 4.8 cm LVOT diam: 2.0 cm LVIDs: 3.5 cm Ao root diam: 3.2 cm FS: 27.6 % asc Aorta Diam: 3.1 cm IVSd: 0.84 cm Ao Arch Diam (Prox Trans): 2.6 cm LVPWd: 0.91 cm LV nelson. diameter/BSA (cm/m^2): 2.4 LV sys. diameter/BSA (cm/m^2): 1.7 LA A2 area: 24.5 cm2 IVC diam: 1.1 cm LA A4 area: 16.9 cm2 LA length (vol): 6.1 cm LA vol: 57.9 ml LA vol index: 28.9 ml/m2 RVD1 (basal): 3.0 cm RVD2 (mid): 2.4 cm TAPSE: 1.5 cm Doppler Measurements & Calculations Ao V2 max: 205.1 cm/sec LVOT Max Wes: 106.7 cm/sec Ao V2 mean: 139.8 cm/sec LV V1 max P.6 mmHg Ao max P.8 mmHg LV V1 VTI: 20.9 cm Ao mean P.1 mmHg YULIA(I,D): 1.6 cm2 Ao V2 VTI: 39.4 cm YULIA(V,D): 1.6 cm2 sev ratio: 0.53 YULIA indexed to BSA (cm^2/m^2): 0.79 MV E max wes: 109.3 cm/sec PA V2 max: 108.5 cm/sec MV A max wes: 111.1 cm/sec PA V2 mean: 74.2 cm/sec MV E/A: 0.98 PA mean P.5 mmHg Med Peak E' Wes: 5.0 cm/sec PA pr(Accel): 26.8 mmHg E/E' med: 22.0 Lat Peak E' Wes: 5.9 cm/sec E/E' lat: 18.4 E/e' average: 20.2 MV dec time: 0.31 sec MVA(VTI): 1.5 cm2 MV V2 mean: 84.4 cm/sec SV(LVOT): 62.5 ml MV mean P.3 mmHg MV V2 VTI: 40.8 cm Electronically signed by: Marcella Montalvo on Reading Physician:12/16/2024 03:06 PM
[2024-12-15] MEDS: CODEINE/ACETAMINOPHEN 30/300 TABLET 1 TAB PO (21:14)
[2024-12-15] MEDS: ATORVASTATIN 20 MG TABLET 80 MG PO (21:15)
[2024-12-15] MEDS: METOPROLOL IR 25 MG TABLET 12.5 MG PO (21:15)
[2024-12-15] MEDS: RANOLAZINE 500 MG TAB.ER.12H PO (21:15)
[2024-12-16] VITALS (7 sets, daily range): BP systolic 115–165; BP diastolic 40–64; PULSE 64–69; RESP 16–20; TEMP 35.9–36.1; O2SAT 96–98
[2024-12-16] MEDS: FUROSEMIDE 40 MG/4 ML VIAL IV ×4 (00:06→23:18)
--- NOTE | 2024-12-16 02:38 | PC.NURSE ---
Pt to room 214 from ER at approx. 2030. Pt is awake, alert and oriented. Daughter Beronica is at the bedside. Pt states she is comfortable in bed. Denies nausea. States she is having pain to her left shoulder and ribs from coughing. Pt denies shortness of breath currently. Pt oriented to room, call light, bed controls, and tv controls. Daughter rooming in and was set up with items for sleep and comfort. Pt agrees to call for assistance as needed.
[2024-12-16] MEDS: ONDANSETRON 4 MG ODT SL (06:29)
[2024-12-16 06:32] LABS: Blood Urea Nitrogen 26 mg/dL (7-17); Calcium 9.1 mg/dL (8.4-10.2); Carbon Dioxide 32 mmol/L (22-32); Chloride 97 mmol/L (98-107); Estimated Glomerular Filt Rate 45 mL/min (>60); Glucose 149 mg/dL (70-99); HEMOLYSIS < 15 (0-50); Potassium 3.4 mmol/L (3.4-5.1); Sodium 136 mmol/L (137-145)
[2024-12-16 06:35] LABS: Add Manual Diff / Slide Review NO; Hematocrit 36.3 % (36-46); Hemoglobin 11.7 g/dL (12.0-16.0); Lymphocytes Absolute Auto 2600 /uL (1100-4500); Mean Corpuscular HGB Conc 32.3 % (30-36); Mean Corpuscular Hemoglobin 24.9 PG (26-34); Mean Corpuscular Volume 77.1 fL (80-100); Platelet Count 226 X10^3/uL (150-400)
[2024-12-16 06:45] LABS: Troponin I 0.044 ng/mL (0.01-0.034)
[2024-12-16] MEDS: METOPROLOL IR 25 MG TABLET 12.5 MG PO ×2 (09:09→20:14)
[2024-12-16] MEDS: RANOLAZINE 500 MG TAB.ER.12H PO ×2 (09:09→20:15)
[2024-12-16] MEDS: ENOXAPARIN 40 MG/0.4 ML SYRINGE SUBCUT (09:09)
[2024-12-16] MEDS: ASPIRIN EC 81 MG TABLET PO (09:09)
[2024-12-16] MEDS: PANTOPRAZOLE DR 40 MG TABLET PO (09:10)
[2024-12-16] MEDS: ESCITALOPRAM 10 MG TABLET 20 MG PO (09:10)
--- NOTE | 2024-12-16 10:30 | PC.NURSE ---
Patient is alert and oriented x4, she denies pain. LS to lower lobes with crackles, patient is on 2L of oxygen and sats are mid 90s. She has 2+ edema to her arms, legs, and lower extremities. Lasix iv given to patient along with her other medications. She is visiting with her daughter now.
--- NOTE | 2024-12-16 13:05 | P.PN_ITS ---
Subjective Subjective Date Patient Seen: 12/16/24 Interval history: Chief complaint: SOB, pain in upper abd, cough, light headed with acute on chronic diastolic congestive heart failure History of present illness: 12/15: 89-year-old woman under the primary care of Dr. Zoe Bass, [facility], and Dr. Eva Ellington of Cardiology with Chronic diastolic CHF (HFpEF) presents with 1 week of progressive edema and weight gain. She initially gained 3 lb and took an extra dose of Lasix, and when up to 4 lb, took another extra dose, but failed to see an improvement and gained 10 lb of fluid, with associated abdominal distention and increasing fluid retention in her legs, with associated orthopnea and paroxysmal nocturnal dyspnea. She presented with her daughter to the emergency department with normal oxygen levels, elevated NT pro BNP of 736, clinical and radiographic findings of congestive heart failure, and administered IV furosemide. She is admitted for further evaluation and management. Hospital course: 12/16: Cough throughout the night and episodes of paroxysmal nocturnal dyspnea urinating using the external catheter no episodes of chest pain fevers or chills and cough is nonproductive. Urine output reported 1200 overnight with a net of 1100- output. Cardiac exam is unremarkable today pulmonary exam has rales in the lower 2/3 of lung ibrahim extremities have 2+ edema of hands and feet ring finger has a wedding ring that has been on there for 67 years there is no signs of compromise of the ring finger but it is tight Review of systems: No fever or chills headache diplopia No difficulty swallowing No chest pains or palpitations No nausea vomiting or diarrhea No urinary discomfort Physical exam: Very pleasant elderly female morbidly obese HEENT unremarkable Heart sounds distant no murmurs appreciated Lungs with rales in the lower 2/3 bilaterally Abdomen nontender nondistended Extremities 1 to 2+ edema x4 Alert and oriented neurologic nonfocal For objective laboratory and imaging please see the bottom of the note: Assessment and plan: 1. Acute on chronic heart failure with preserved ejection fraction. * Repeat echocardiogram. * Intravenous diuresis * Monitor daily basic metabolic profile * Significant bilateral pulmonary edema data symptomatic 2. Coronary artery disease with history of non STEMI and cardiac arrest. Monitor serial cardiac enzymes, normal at this point. * Continue all core measures 3. Hypertension. Continue routine medication. 4. Hyperlipidemia. Continue statin therapy. 5. GERD. Continue PPI. DVT prophylaxis: * subcutaneous Lovenox Code status: * Full code. The patient clearly states she wishes full measures in the in cardiac arrest, and that her surrogate decision maker is her daughter Beronica Disposition: * Acute inpatient status for acute on chronic diastolic congestive heart failure with acute hypoxic respiratory failure secondary to pulmonary edema * Anticipate 3 days of hospitalization: * Forecast for discharge on Monday 12/18 equals 50% 12/19 equals 75% 35 minutes were involved in the management of this care of this patient including grvy-lw-awct evaluation physical examination review of records objective laboratory and imaging findings and previous medical records Exam Vital Signs (past 8 hours): - 12/16/24 08:00 12/16/24 12:00 Temperature 96.7 F L 97.0 F L Pulse Rate 64 69 Respiratory Rate 18 16 Blood Pressure 115/40 L 121/40 L Pulse Oximetry 96 97 Oxygen Flow Rate 1 1 Oxygen Delivery Method Nasal Cannula Oxygen Flow Rate 1 Objective Labs 12/16/24 05:20 12/16/24 05:20 Labs: Laboratory Results - last 24 hr 12/15/24 12/15/24 12/16/24 16:19 17:10 05:20 WBC 10.2 9.3 RBC 4.96 4.71 Hgb 12.4 11.7 L Hct 38.7 36.3 MCV 78.1 L 77.1 L MCH 24.9 L 24.9 L MCHC 31.9 32.3 RDW 18.8 H 19.2 H Plt Count 229 226 Neut % (Auto) 76.8 H 62.0 Lymph % (Auto) 16.4 L 28.1 Cassia % (Auto) 5.7 8.0 Eos % (Auto) 0.5 L 1.3 L Baso % (Auto) 0.6 0.6 Neut # (Auto) 7800 H 5700 Lymph # (Auto) 1700 2600 Cassia # (Auto) 600 700 Eos # (Auto) 100 100 Baso # (Auto) 100 100 PT 11.7 INR 1.0 APTT 23 L Sodium 133 L 136 L Potassium 4.3 3.4 Chloride 98 97 L Carbon Dioxide 23 32 BUN 24 H 26 H Creatinine 1.07 H 1.18 H Estimated GFR 50 L 45 L BUN/Creatinine Ratio 22.4 H 22.0 Glucose 267 H 149 H D Calcium 9.3 9.1 Magnesium 1.9 Total Bilirubin 0.7 AST 31 ALT 12 Alkaline Phosphatase 51 Total Creatine Kinase 109 Troponin I 0.031 0.044 H NT-Pro-B Natriuret Pep 736 H Total Protein 6.6 Albumin 4.0 Globulin 2.6 Albumin/Globulin Ratio 1.5 Lipase 170 PFSH Medical History Cardiac arrest Chest pain Chronic respiratory failure with hypoxia Coronary artery disease Diastolic heart failure Hyperlipidemia Hypertension Left hamstring muscle strain NSTEMI (non-ST elevated myocardial infarction) Skin cancer UTI (urinary tract infection) Surgical History H/O right heart catheterization History of appendectomy History of breast implant removal History of breast surgery History of cholecystectomy History of coronary artery stent placement History of total abdominal hysterectomy Family History Father Hypertension Diabetes mellitus Mother Hypertension [place] (myocardial infarction) Sister [place] (myocardial infarction) S/P CABG x 4 Social History household members: children Smoking Status: Never smoker alcohol intake: never Assessment & Plan Time-Based Coding :: [TOTAL MINUTES] spent with patient and on the chart (including review of chart, obtaining history, exam, reviewing outside data, placing orders, documenting exam and treatment plan, and counseling patient) on [DATE].
--- NOTE | 2024-12-16 14:53 | CM.DANOTE ---
Patient is an 89 yo female who was admitted on 12/15/24 for SOB. Pt has [employer] for insurance and her PCP is Zoe Bass. EMR was reviewed. Per MD, pt with respiratory failure and to have Echo and remains on increased O2 than her baseline and not yet stable to discharge. SW met bedside with pt and her Dtr Beronica and explained role and they confirm that pt lives in a mobile home in [place] with her adult son and is mostly independent with ADLs at baseline. Pt typically uses a 4WW for ambulation and has home O2 2-3L at baseline. Pt no longer drives and either her son or granddtr typically drive. Pt's Dtr Beronica is her informal POA and lives a few minutes from pt and son. SW provided the POA brochure and pwk to review and discussed the importance and pt and family very appreciative. Pt confirms she has a hx of using [facility] and found them helpful and would be agreeable to HH if needed at d/c. Pt denies any hx of SNF and states her preference is home via family POV when stable. Family and pt do not anticipate any further needs besides possible HH. Plan: SW to follow closely for possible need of PT eval to confirm safe plan of home and r/o HH. SW to follow for any further identified discharge planning needs. DONNELL Erickson Discharge Planning/Care Management Advanced directive, confirm from FAMILY Start: 12/15/24 20:36 Freq: Q24H Status: Active Protocol: Document 12/15/24 20:39 MW (Rec: 12/15/24 20:40 MW [id number]) Advance Directive, confirm on record Time 20:40 Person contacted pt Copy received No CM Discharge Assessment Start: 12/15/24 19:49 Freq: Status: Active Protocol: Document 12/16/24 14:50 BF (Rec: 12/16/24 14:52 BF [id number]) Discharge Planning Assessment Assigned Discharge DONNELL Sosa [employer] DPOA/Assigned informally Dtr Beronica Designee Name Contact Information [phone] Advance Directives? Yes Advance Directives No on File History Provided By Patient,Family Member,Medical Record Has Patient been No admitted in last 30 days? Prior Living House Arrangements Household Members children Comment Lives with adult son, Dtr lives few min away Type of Relies on Others transporation used prior to admit Comment Granddtr provides transport Independent with ADL Yes 's Is patient alert and Yes oriented? Needs Assistance Home Chores / Shopping With Caregiver for No Another Comment Hx of [facility] DME Already Rented / FWW / Walker Owned Comment CPAP , home O2 2-3 L at baseline Patient/Family Home with Home Health Preference Barriers to No Discharge Comment Patient lives with family, good support system. Discharge Plan Home Transportation Family local and able to transport at d/c. Arrangement Additional Comment Follow for possible PT/OT eval and recommendations Whiteboard Updated Yes in Patient Room with name and ext. # of Manager Location Review Status In Process Please Provide Date 12/16/24 Initial DC Assessment Was Performed Next Review Type Continued Stay Review
[2024-12-16] MEDS: CODEINE/ACETAMINOPHEN 30/300 TABLET 1 TAB PO (19:44)
[2024-12-16] MEDS: ATORVASTATIN 20 MG TABLET 80 MG PO (20:15)
[2024-12-16] MEDS: HEPARIN 5,000 UNIT/ML VIAL 7500 UNIT SUBCUT (21:41)
[2024-12-16] MEDS: diphenhydrAMINE 25 MG TABLET PO (21:52)
[2024-12-17] VITALS (7 sets, daily range): BP systolic 114–157; BP diastolic 44–57; PULSE 65–78; RESP 14–18; TEMP 35.8–36.2; O2SAT 94–99
[2024-12-17] MEDS: HEPARIN 5,000 UNIT/ML VIAL 7500 UNIT SUBCUT ×2 (06:00→17:44)
[2024-12-17] MEDS: ONDANSETRON 4 MG ODT SL (09:08)
[2024-12-17] MEDS: CODEINE/ACETAMINOPHEN 30/300 TABLET 1 TAB PO ×2 (09:08→20:11)
[2024-12-17] MEDS: RANOLAZINE 500 MG TAB.ER.12H PO ×2 (09:08→20:11)
[2024-12-17] MEDS: ESCITALOPRAM 10 MG TABLET 20 MG PO (09:09)
[2024-12-17] MEDS: ASPIRIN EC 81 MG TABLET PO (09:09)
[2024-12-17] MEDS: FUROSEMIDE 40 MG/4 ML VIAL IV ×2 (09:09→17:44)
[2024-12-17] MEDS: PANTOPRAZOLE DR 40 MG TABLET PO (09:09)
[2024-12-17] MEDS: METOPROLOL IR 25 MG TABLET 12.5 MG PO ×2 (09:09→20:12)
--- NOTE | 2024-12-17 13:18 | P.PN_ITS ---
Subjective Subjective Date Patient Seen: 12/17/24 Interval history: Chief complaint: SOB, pain in upper abd, cough, light headed with acute on chronic diastolic congestive heart failure History of present illness: 12/15: 89-year-old woman under the primary care of Dr. Zoe Bass, [facility], and Dr. Eva Ellington of Cardiology with Chronic diastolic CHF (HFpEF) presents with 1 week of progressive edema and weight gain. She initially gained 3 lb and took an extra dose of Lasix, and when up to 4 lb, took another extra dose, but failed to see an improvement and gained 10 lb of fluid, with associated abdominal distention and increasing fluid retention in her legs, with associated orthopnea and paroxysmal nocturnal dyspnea. She presented with her daughter to the emergency department with normal oxygen levels, elevated NT pro BNP of 736, clinical and radiographic findings of congestive heart failure, and administered IV furosemide. She is admitted for further evaluation and management. Hospital course: 12/16: Cough throughout the night and episodes of paroxysmal nocturnal dyspnea urinating using the external catheter no episodes of chest pain fevers or chills and cough is nonproductive. Urine output reported 1200 overnight with a net of 1100- output. Cardiac exam is unremarkable today pulmonary exam has rales in the lower 2/3 of lung ibrahim extremities have 2+ edema of hands and feet ring finger has a wedding ring that has been on there for 67 years there is no signs of compromise of the ring finger but it is tight /: Coughing up yellow phlegm lower pelvic pain and dysuria no fevers or chills overnight. She has bibasilar rales still today which still has 1 to 2+ edema in all 4 extremities Review of systems: No fever or chills headache diplopia No difficulty swallowing No chest pains or palpitations No nausea vomiting or diarrhea No urinary discomfort Physical exam: Very pleasant elderly female morbidly obese HEENT unremarkable Heart sounds distant no murmurs appreciated Lungs with rales in the lower 2/3 bilaterally Abdomen nontender nondistended Extremities 1 to 2+ edema x4 Alert and oriented neurologic nonfocal For objective laboratory and imaging please see the bottom of the note: Assessment and plan: 1. Acute on chronic heart failure with preserved ejection fraction. * Repeat echocardiogram. * Intravenous diuresis * Monitor daily basic metabolic profile * Significant bilateral pulmonary edema data symptomatic 2. Coronary artery disease with history of non STEMI and cardiac arrest. Monitor serial cardiac enzymes, normal at this point. * Continue all core measures 3. Hypertension. Continue routine medication. 4. Hyperlipidemia. Continue statin therapy. 5. GERD. Continue PPI. DVT prophylaxis: * subcutaneous Lovenox Code status: * Full code. The patient clearly states she wishes full measures in the in cardiac arrest, and that her surrogate decision maker is her daughter Beronica Disposition: * Acute inpatient status for acute on chronic diastolic congestive heart failure with acute hypoxic respiratory failure secondary to pulmonary edema * Anticipate 3 days of hospitalization: * Forecast for discharge on Monday 12/18 equals 50% 12/19 equals 75% 35 minutes were involved in the management of this care of this patient including osyf-ru-[id number] evaluation physical examination review of records objective laboratory and imaging findings and previous medical records Exam Vital Signs (past 8 hours): - 12/17/24 08:00 12/17/24 08:19 12/17/24 12:00 Temperature 96.6 F L 96.4 F L Pulse Rate 75 65 Respiratory Rate 18 17 Blood Pressure 118/44 L 114/48 L Pulse Oximetry 97 95 99 Oxygen Delivery Method Nasal Cannula Oxygen Flow Rate 3 2 0 Oxygen Delivery Method Nasal Cannula Oxygen Flow Rate 0 Objective Labs 12/16/24 05:20 12/16/24 05:20 [facility] Medical History Cardiac arrest Chest pain Chronic respiratory failure with hypoxia Coronary artery disease Diastolic heart failure Hyperlipidemia Hypertension Left hamstring muscle strain NSTEMI (non-ST elevated myocardial infarction) Skin cancer UTI (urinary tract infection) Surgical History H/O right heart catheterization History of appendectomy History of breast implant removal History of breast surgery History of cholecystectomy History of coronary artery stent placement History of total abdominal hysterectomy Family History Father Hypertension Diabetes mellitus Mother Hypertension [place] (myocardial infarction) Sister [place] (myocardial infarction) S/P CABG x 4 Social History household members: children Smoking Status: Never smoker alcohol intake: never Assessment & Plan Time-Based Coding :: [TOTAL MINUTES] spent with patient and on the chart (including review of chart, obtaining history, exam, reviewing outside data, placing orders, documenting exam and treatment plan, and counseling patient) on [DATE].
[2024-12-17] MEDS: ATORVASTATIN 20 MG TABLET 80 MG PO (20:12)
[2024-12-18] VITALS: BP 169/55; PULSE 69; RESP 15; TEMP 35.7; O2SAT 96
[2024-12-18] MEDS: FUROSEMIDE 40 MG/4 ML VIAL IV ×3 (00:17→16:15)
[2024-12-18 04:00] VITALS: BP 146/45; PULSE 66; RESP 16; TEMP 35.8; O2SAT 95
[2024-12-18] MEDS: HEPARIN 5,000 UNIT/ML VIAL 7500 UNIT SUBCUT ×3 (06:09→21:05)
[2024-12-18 08:00] VITALS: BP 115/56; PULSE 64; RESP 16; TEMP 35.7; O2SAT 100
[2024-12-18 08:38] LABS: Appearance Urine UA CLEAR; Bilirubin Urine UA NEGATIVE (NEGATIVE); Color Urine UA YELLOW; Glucose Urine UA NEGATIVE (Negative); Ketones Urine UA NEGATIVE (NEGATIVE); Leukocyte Esterase Urine UA NEGATIVE (NEGATIVE); Nitrite Urine UA NEGATIVE (Negative); Occult Blood Urine UA NEGATIVE (Negative); Protein Urine UA TRACE (Negative); Specific Gravity Urine UA 1.010 (1.000-1.035); Urobilinogen Urine UA 0.2 E.U./dL (0.2)
[2024-12-18 08:41] LABS: pH Urine UA 5.5 (4.5-8.0)
[2024-12-18 08:44] LABS: Culture Indicated Urine Cult Not Indicated
[2024-12-18] MEDS: METOPROLOL IR 25 MG TABLET 12.5 MG PO ×2 (09:09→20:22)
[2024-12-18] MEDS: ESCITALOPRAM 10 MG TABLET 20 MG PO (09:09)
[2024-12-18] MEDS: RANOLAZINE 500 MG TAB.ER.12H PO ×2 (09:09→20:23)
[2024-12-18] MEDS: PANTOPRAZOLE DR 40 MG TABLET PO (09:10)
[2024-12-18] MEDS: ASPIRIN EC 81 MG TABLET PO (09:10)
[2024-12-18] MEDS: CODEINE/ACETAMINOPHEN 30/300 TABLET 1 TAB PO ×2 (09:10→20:22)
[2024-12-18] MEDS: SODIUM CHLORIDE 0.9% FLUSH 10 ML IV ×2 (09:11→21:14)
--- NOTE | 2024-12-18 10:19 | CM.DPC ---
DCP Cont. Reviewed EMR and team rounds for pt's medical status and updates. Per Hospitalist, pt will need 1-more day before being medically stable for home d/c. Monitoring for final d/c needs.
--- NOTE | 2024-12-18 13:57 | P.PN_ITS ---
Subjective Subjective Date Patient Seen: 12/18/24 Interval history: History of present illness: 12/15: 89-year-old woman under the primary care of Dr. Zoe Bass, [facility], and Dr. Eva Ellington of Cardiology with Chronic diastolic CHF (HFpEF) presents with 1 week of progressive edema and weight gain. She initially gained 3 lb and took an extra dose of Lasix, and when up to 4 lb, took another extra dose, but failed to see an improvement and gained 10 lb of fluid, with associated abdominal distention and increasing fluid retention in her legs, with associated orthopnea and paroxysmal nocturnal dyspnea. She presented with her daughter to the emergency department with normal oxygen levels, elevated NT pro BNP of 736, clinical and radiographic findings of congestive heart failure, and administered IV furosemide. She is admitted for further evaluation and management. Hospital course: 12/16: Cough throughout the night and episodes of paroxysmal nocturnal dyspnea urinating using the external catheter no episodes of chest pain fevers or chills and cough is nonproductive. Urine output reported 1200 overnight with a net of 1100- output. Cardiac exam is unremarkable today pulmonary exam has rales in the lower 2/3 of lung ibrahim extremities have 2+ edema of hands and feet ring finger has a wedding ring that has been on there for 67 years there is no signs of compromise of the ring finger but it is tight 8/5: Coughing up yellow phlegm lower pelvic pain and dysuria no fevers or chills overnight. She has bibasilar rales still today which still has 1 to 2+ edema in all 4 extremities 8/6: Patient feeling somewhat fatigued and malaise still producing phlegm swelling in the hands is improved swelling in the feet seems improved as well. Crackles in the lower lung bases now Review of systems: No fever or chills headache diplopia No difficulty swallowing No chest pains or palpitations No nausea vomiting or diarrhea No urinary discomfort Physical exam: Very pleasant elderly female morbidly obese HEENT unremarkable Heart sounds distant no murmurs appreciated Lungs with rales in the bases bilaterally Abdomen nontender nondistended Extremities 1 to 2+ edema x4 Alert and oriented neurologic nonfocal For objective laboratory and imaging please see the bottom of the note: Assessment and plan: Possible superimposed pneumonia: * Ceftriaxone empirically * Sputum culture Acute on chronic heart failure with preserved ejection fraction. * Repeat echocardiogram. * Intravenous diuresis * Monitor daily basic metabolic profile * Significant bilateral pulmonary edema data symptomatic Coronary artery disease with history of non STEMI and cardiac arrest. Monitor serial cardiac enzymes, normal at this point. * Continue all core measures Hypertension. Continue routine medication. Hyperlipidemia. Continue statin therapy. GERD. Continue PPI. DVT prophylaxis: * subcutaneous Lovenox Code status: * Full code. The patient clearly states she wishes full measures in the in cardiac arrest, and that her surrogate decision maker is her daughter Beronica Disposition: * Acute inpatient status for acute on chronic diastolic congestive heart failure with acute hypoxic respiratory failure secondary to pulmonary edema * Anticipate 2 days of hospitalization: * Forecast for discharge on 12/19 equals 30%, 60% for 12/20 35 minutes were involved in the management of this care of this patient including [id number] evaluation physical examination review of records objective laboratory and imaging findings and previous medical records Exam Vital Signs (past 8 hours): - 12/18/24 08:00 12/18/24 08:00 Temperature 96.3 F L Pulse Rate 64 Respiratory Rate 16 Blood Pressure 115/56 L Pulse Oximetry 100 Oxygen Delivery Method Nasal Cannula Oxygen Delivery Method Nasal Cannula Oxygen Flow Rate 0 Objective Labs 12/16/24 05:20 12/16/24 05:20 Labs: Laboratory Results - last 24 hr 12/18/24 08:20 Urine Color Yellow Urine Appearance Clear Urine pH 5.5 Ur Specific [place] 1.010 Urine Protein Trace H Urine Glucose (UA) Negative Urine Ketones Negative Urine Occult Blood Negative Urine Nitrate Negative Urine Bilirubin Negative Urine Urobilinogen 0.2 Ur Leukocyte Esterase Negative Urine RBC None seen Urine WBC None seen Ur Squamous Epith Cells None seen D Urine Bacteria None seen Ur Culture Indicated? Cult not indicated Vol Urine Centrifuged 10ml (spun) [facility] Medical History Cardiac arrest Chest pain Chronic respiratory failure with hypoxia Coronary artery disease Diastolic heart failure Hyperlipidemia Hypertension Left hamstring muscle strain NSTEMI (non-ST elevated myocardial infarction) Skin cancer UTI (urinary tract infection) Surgical History H/O right heart catheterization History of appendectomy History of breast implant removal History of breast surgery History of cholecystectomy History of coronary artery stent placement History of total abdominal hysterectomy Family History Father Hypertension Diabetes mellitus Mother Hypertension CT (myocardial infarction) Sister CT (myocardial infarction) S/P CABG x 4 Social History household members: children Smoking Status: Never smoker alcohol intake: never Assessment & Plan Time-Based Coding :: [TOTAL MINUTES] spent with patient and on the chart (including review of chart, obtaining history, exam, reviewing outside data, placing orders, documenting exam and treatment plan, and counseling patient) on [DATE].
[2024-12-18 16:00] VITALS: BP 174/60; PULSE 68; RESP 18; TEMP 36; O2SAT 99
[2024-12-18] MEDS: ATORVASTATIN 20 MG TABLET 80 MG PO (20:22)
[2024-12-18] MEDS: diphenhydrAMINE 25 MG TABLET PO (20:23)
[2024-12-18 20:58] VITALS: BP 137/48; PULSE 71; RESP 16; TEMP 35.9; O2SAT 99
[2024-12-18] MEDS: BENZOCAINE/MENTHOL 1 LOZ PKT 1 EACH PO (21:05)
[2024-12-19] VITALS (7 sets, daily range): BP systolic 129–172; BP diastolic 46–72; PULSE 66–83; RESP 16–18; TEMP 35.8–36.2; O2SAT 96–98
[2024-12-19] MEDS: FUROSEMIDE 40 MG/4 ML VIAL IV ×3 (00:12→16:27)
[2024-12-19] MEDS: HEPARIN 5,000 UNIT/ML VIAL 7500 UNIT SUBCUT ×3 (06:29→21:20)
[2024-12-19] MEDS: ESCITALOPRAM 10 MG TABLET 20 MG PO (08:21)
[2024-12-19] MEDS: RANOLAZINE 500 MG TAB.ER.12H PO ×2 (08:21→20:25)
[2024-12-19] MEDS: METOPROLOL IR 25 MG TABLET 12.5 MG PO ×2 (08:22→20:25)
[2024-12-19] MEDS: PANTOPRAZOLE DR 40 MG TABLET PO (08:22)
[2024-12-19] MEDS: ASPIRIN EC 81 MG TABLET PO (08:22)
[2024-12-19] MEDS: SODIUM CHLORIDE 0.9% FLUSH 10 ML IV ×2 (08:22→20:26)
[2024-12-19] MEDS: CODEINE/ACETAMINOPHEN 30/300 TABLET 1 TAB PO ×2 (08:26→20:26)
--- NOTE | 2024-12-19 09:14 | DI.RAD.S_ITS ---
PROCEDURE: XR CHEST 1V INDICATIONS: chf TECHNIQUE: One view of the chest was acquired. COMPARISON: [facility], CR, XR CHEST 1V, 12/15/2024, 13:09. FINDINGS: Heart, mediastinum and pulmonary vascular: Heart is moderately enlarged.. Mediastinum is unremarkable. Pulmonary vascular is normal. Lungs: Scattered airspace disease throughout both lungs likely reflects fibrosis. Pleural spaces: Normal-no effusions or pneumothorax. Bones and soft tissues: Normal IMPRESSION: Mild cardiomegaly and scattered fibrosis. No acute cardiopulmonary disease Dictated by: Robby Sanchez M.D. on 12/20/2024 at 13:40 Approved by: Robby Sanchez M.D. on 12/20/2024 at 13:41
--- NOTE | 2024-12-19 11:04 | PM.PN.1 ---
Subjective Subjective Date Patient Seen: 12/19/24 Interval history: Chief complaint: Dyspnea shortness for breath peripheral edema secondary to acute congestive heart failure and lower respiratory infection History of present illness: 12/15: 89-year-old woman under the primary care of Dr. Zeo Bass, [facility], and Dr. Eva Ellington of Cardiology with Chronic diastolic CHF (HFpEF) presents with 1 week of progressive edema and weight gain. She initially gained 3 lb and took an extra dose of Lasix, and when up to 4 lb, took another extra dose, but failed to see an improvement and gained 10 lb of fluid, with associated abdominal distention and increasing fluid retention in her legs, with associated orthopnea and paroxysmal nocturnal dyspnea. She presented with her daughter to the emergency department with normal oxygen levels, elevated NT pro BNP of 736, clinical and radiographic findings of congestive heart failure, and administered IV furosemide. She is admitted for further evaluation and management. Hospital course: 12/16: Cough throughout the night and episodes of paroxysmal nocturnal dyspnea urinating using the external catheter no episodes of chest pain fevers or chills and cough is nonproductive. Urine output reported 1200 overnight with a net of 1100- output. Cardiac exam is unremarkable today pulmonary exam has rales in the lower 2/3 of lung ibrahim extremities have 2+ edema of hands and feet ring finger has a wedding ring that has been on there for 67 years there is no signs of compromise of the ring finger but it is tight /: Coughing up yellow phlegm lower pelvic pain and dysuria no fevers or chills overnight. She has bibasilar rales still today which still has 1 to 2+ edema in all 4 extremities 8: Patient feeling somewhat fatigued and malaise still producing phlegm swelling in the hands is improved swelling in the feet seems improved as well. Crackles in the lower lung bases now 12/19: Patient not feeling back to her baseline but improvement from yesterday still short of breath still fatigued coughing up copious amounts of yellow and greenish phlegm decreased swelling in her hands notable Review of systems: No fever or chills headache diplopia No difficulty swallowing No chest pains or palpitations No nausea vomiting or diarrhea No urinary discomfort Physical exam: Very pleasant elderly female morbidly obese HEENT unremarkable Heart sounds distant no murmurs appreciated Lungs with rales in the bases bilaterally Abdomen nontender nondistended Extremities 1 + edema x4 Alert and oriented neurologic nonfocal For objective laboratory and imaging please see the bottom of the note: Assessment and plan: Possible superimposed pneumonia: Ceftriaxone azithromycin empirically Sputum culture pending Acute on chronic diastolic congestive heart failure. Repeat echocardiogram. The left ventricular cavity is small. The ejection fraction is estimated to be 65-70%. Diastolic parameters suggest a relaxation abnormality of the left ventricle, consistent with probable normal filling pressures. There is no hemodynamically significant valvular aortic stenosis. There is mild to moderate mitral annular calcification. The mitral valve mean gradient is 3.3 mmHg. Comparison is made with the echocardiogram of 01/26/2024, no significant change. Continue Intravenous diuresis Monitor daily basic metabolic profile Significant bilateral pulmonary edema data symptomatic Coronary artery disease with history of non STEMI and cardiac arrest. Monitor serial cardiac enzymes, normal at this point. Continue all core measures Hypertension. Continue routine medication. Hyperlipidemia. Continue statin therapy. GERD. Continue PPI. DVT prophylaxis: subcutaneous LovenoxCode status: Full code. The patient clearly states she wishes full measures in the in cardiac arrest, and that her surrogate decision maker is her daughter Beronica Disposition: Acute inpatient status for acute on chronic diastolic congestive heart failure with acute hypoxic respiratory failure secondary to pulmonary edema Anticipate 2 days of hospitalization: Forecast for discharge on 12/19 equals 30%, 60% for 12/20 35 minutes were involved in the management of this care of this patient including [id number] evaluation physical examination review of records objective laboratory and imaging findings and previous medical records Exam Vital Signs (past 8 hours): - 12/19/24 04:59 12/19/24 09:00 12/19/24 10:13 Temperature 97.1 F L Pulse Rate 66 Respiratory Rate 16 Blood Pressure 148/62 H Pulse Oximetry 97 96 Oxygen Delivery Method Nasal Cannula Nasal Cannula Oxygen Flow Rate 2.5 2.5 Oxygen Delivery Method Nasal Cannula Oxygen Flow Rate 2.5 Objective Labs 12/16/24 05:20 12/16/24 05:20 [facility] Medical History Cardiac arrest Chest pain Chronic respiratory failure with hypoxia Coronary artery disease Diastolic heart failure Hyperlipidemia Hypertension Left hamstring muscle strain NSTEMI (non-ST elevated myocardial infarction) Skin cancer UTI (urinary tract infection) Surgical History H/O right heart catheterization History of appendectomy History of breast implant removal History of breast surgery History of cholecystectomy History of coronary artery stent placement History of total abdominal hysterectomy Family History Father Hypertension Diabetes mellitus Mother Hypertension MA (myocardial infarction) Sister MA (myocardial infarction) S/P CABG x 4 Social History household members: children Smoking Status: Never smoker alcohol intake: never Assessment & Plan Time-Based Coding :: [TOTAL MINUTES] spent with patient and on the chart (including review of chart, obtaining history, exam, reviewing outside data, placing orders, documenting exam and treatment plan, and counseling patient) on [DATE].
[2024-12-19] MEDS: BENZOCAINE/MENTHOL 1 LOZ PKT 1 EACH PO ×2 (11:06→20:25)
[2024-12-19] MEDS: DOXYCYCLINE HYCLATE 100 MG TABLET PO ×2 (12:08→20:26)
[2024-12-19] MEDS: ATORVASTATIN 20 MG TABLET 80 MG PO (20:25)
[2024-12-19] MEDS: diphenhydrAMINE 25 MG TABLET PO (20:25)
[2024-12-20] MEDS: SODIUM CHLORIDE 0.9% FLUSH 10 ML IV ×3 (00:04→20:10)
[2024-12-20] MEDS: FUROSEMIDE 40 MG/4 ML VIAL IV ×3 (00:04→15:01)
[2024-12-20] MEDS: HEPARIN 5,000 UNIT/ML VIAL 7500 UNIT SUBCUT ×3 (06:19→21:32)
[2024-12-20] MEDS: RANOLAZINE 500 MG TAB.ER.12H PO ×2 (08:31→20:09)
[2024-12-20] MEDS: ESCITALOPRAM 10 MG TABLET 20 MG PO (08:31)
[2024-12-20] MEDS: ASPIRIN EC 81 MG TABLET PO (08:31)
[2024-12-20] MEDS: PANTOPRAZOLE DR 40 MG TABLET PO (08:31)
[2024-12-20] MEDS: METOPROLOL IR 25 MG TABLET 12.5 MG PO ×2 (08:31→20:09)
[2024-12-20] MEDS: DOXYCYCLINE HYCLATE 100 MG TABLET PO ×2 (08:37→20:07)
--- NOTE | 2024-12-20 09:00 | OT.IP.EVAL ---
Current Diagnoses Acute on chronic diastolic (congestive) heart failure (12/16/24) Past Medical History (Last Reviewed 12/15/24 @ 19:14 by Valentin Saini MD) Cardiac arrest Chest pain Chronic respiratory failure with hypoxia Coronary artery disease Diastolic heart failure Hyperlipidemia Hypertension Left hamstring muscle strain NSTEMI (non-ST elevated myocardial infarction) Skin cancer UTI (urinary tract infection) Surgical History (Last Reviewed 12/15/24 @ 19:14 by Valentin Saini MD) H/O right heart catheterization History of appendectomy History of breast implant removal History of breast surgery History of cholecystectomy History of coronary artery stent placement History of total abdominal hysterectomy Occupational Therapy Inpatient Evaluation/Re-Eval M1 PT/OT-IP Prior Functional Status Start: 12/20/24 09:27 Freq: NEEDED Status: Active Protocol: Document 12/20/24 09:28 [facility] (Rec: 12/20/24 09:42 [facility] Desktop) Medical Review Prior Functional Status Communication I Mobility and Gait Pt uses her 4ww in the house and normally on 2-3L on O2 . Activities of Daily Pt needing increased time for ADL's and sponges off Living and IADL's only and has assist for her socks/shoes. Pt has assist for IADL needs. Social History Household Members children Living Arrangements House Number of Floors ( One Floor Floors) Number of Stairs To 4 steps with bilateral wide rail, one step up to the Enter/Railing? toilet. Home Environment Standard Height Toilet,Walk in Shower Home Equipment Four Wheel Walker,Shower Seat without Backrest,Hand Held Shower,Lift Recliner,Bed Rails,Grab Bars Near Toilet,Grab Bars In Shower Additional Social Pt sleeps in an adjustable bed and just purchased bed History Comment rails. M2 OT-IP Current Condition Start: 12/20/24 09:27 Freq: Status: Active Protocol: Document 12/20/24 09:28 [facility] (Rec: 12/20/24 09:42 [facility] Desktop) Occupational Therapy Current Condition Current Condition Evaluation Date 12/20/24 Treatment Diagnosis CHF Diagnosis Onset Date 12/16/24 M3 OT- IP Subjective and Pain Start: 12/20/24 09:27 Freq: Status: Active Protocol: Document 12/20/24 09:28 [facility] (Rec: 12/20/24 09:42 [facility] Desktop) OT- Subjective Occupational Therapy Visit Type Type Initial Evaluation Visit Start Time 09:05 Visit Stop Time 09:30 Occupational Therapy Visit Comments Patient Comments Pt agreed to get up to use the BSC. Patient/Caregiver TO go home. Goals OT Pain Assessment Pain When Pain Assessed At Rest Pain Present Pain Present Pain Reported Location Left Shoulder Intensity 8 Scale Used Numeric (0 - 10) M4 OT- IP ADL's Start: 12/20/24 09:27 Freq: Status: Active Protocol: Document 12/20/24 09:28 [facility] (Rec: 12/20/24 09:42 [facility] Desktop) OT [id number] Comments OT Self-Feeding Not at meal time. Comments OT ADL-Grooming Comments OT Grooming Comments Pt states did prior. OT ADL-Oral Care Comments Oral Care Comments Pt states did prior. OT ADL-Dressing General Eval Lower Body Dressing Maximum Assistance Ability Areas Needing Underpants/Brief,Socks Assistance Comments OT Dressing Comments Assist with socks and assist to help get her feet into the brief. Pt states will call her daughter to come over to assist as needed. OT ADL-Toileting General Evaluation Toileting Ability Moderate Assistance Comments OT Toileting Pt able to wipe and needing assist for brief management Comments needs. OT ADL-Bathing Comments OT Bathing Comments Pt normally just sponges off. M5 OT- IP IADL's Start: 12/20/24 09:27 Freq: Status: Active Protocol: Document 12/20/24 09:28 [facility] (Rec: 12/20/24 09:42 [facility] Desktop) OT-Instrumental Activities of Daily Living Home Safety Awareness Awareness of Need Good Awareness for Assistance at Home Ability to Problem Able to Problem Solve Solve Emergency Situations Medication Management Medication No Deficits Identified Management Money Management Money Management No Deficits Identified Meal Preparation Meal Preparation Caregiver Provides Assist Foot And Ankle Surgeon Foot And Ankle Surgeon Caregiver Provides Assist M6 OT- IP Functional Cognition Start: 12/20/24 09:27 Freq: Status: Active Protocol: Document 12/20/24 09:28 [facility] (Rec: 12/20/24 09:42 [facility] Desktop) Cognitive Factors Limiting Selfcare Function Cognitive Ability Level of Alertness Alert Patient Orientation Name,Place,Situation Attention Span Capable of Focused Attention,Capable of Sustained Ability Attention Ability to Follow Able to Follow Multi-Step Commands Commands Cognitive Comments Cognitive Assessment Pt appears intact and able to follow commands for all Comments ADl and mobility needs. OT- Vision and Hearing OT- Hearing Assessment OT- Hearing Hearing Impaired,Use of Hearing Aids Assessment OT- Vision Assessment Visual Acuity Glasses For Reading Visual Attentiveness WFL Occular Pursuits WFL Vision Assessment Pt's hearing aids not in. Comments M7 OT- IP Mobility and Balance Start: 12/20/24 09:27 Freq: Status: Active Protocol: Document 12/20/24 09:28 [facility] (Rec: 12/20/24 09:42 [facility] Desktop) OT- Bed Mobility Assessment Supine to Sit Supine to Sit Assist Standby Assistance,Head of Bed Elevated,Bedrails Sit to Supine Sit to Supine Assist Moderate Assistance OT-Transfer Assessment Sit to and From Stand Sit to and from Standby Assistance,Contact Guard Assistance Stand Transfers Transfer Ability Standby Assistance,Contact Guard Assistance Technique Transfer Destination Bed,Bedside Commode Transfer Technique Stand Step Pivot Devices Transfer Assistive Gait Belt,Front Wheeled Walker Devices Comments Mobility Comments Pt BP drop when up to go to the [place] and symptomatic while sitting from 131/50's to 110/50's. O2 on 1.5 L and at 96%, after exertion drops to 88% for a brief moment and increasing to 95% and pt complaining of being SOB and requesting to increase O2 to 2.5L, nursing notified. Pt able to transfer to and from the [place] with CGA/close SBA with the FWW. OT- Balance Assessment Sitting Balance and Reactions Static Sitting Normal Balance Ability Dynamic Sitting Good Balance Ability Standing Balance and Reactions Static Standing Good Balance Ability Dynamic Standing Fair Balance Ability M8 OT- IP Objective Assessments Start: 12/20/24 09:27 Freq: Status: Active Protocol: Document 12/20/24 09:28 [facility] (Rec: 12/20/24 09:42 [facility] Desktop) OT Gross Range of Motion Upper Extremity Range of Motion Assessment Bilaterally Impaired ROM Impairments LUE 0-80, RUE 0-100 OT Strength Comments Strength Comments BUE grossly LUE 4+/5, RUE 4/5 M9 OT- IP Assessment and Plan Start: 12/20/24 09:27 Freq: Status: Active Protocol: Document 12/20/24 09:28 [facility] (Rec: 12/20/24 09:42 [facility] Desktop) OT Summary Assessment and Plan Potential Rehabilitation Good Potential Analytic Complexity Moderate at Evaluation Summary OT Impairments Pain,Balance,Functional Mobility,Dressing,Toileting, Bathing,Toilet Transfers,Shower Transfers,Activity Tolerance Progress Towards Slow Progress due to Medical Issues,Slow Progress due Goals to Activity Tolerance Assessment Summary Pt MOD complexity and main barriers are steps, decreased activity tolerance and easily gets SOB. Pt has drop of BP when from supine to sitting and after standing and symptomatic.Pt has a very supportive family to be able to assist her at home. Pt to go home with 24/7 available assist and home health when medically stable. Goals Self-Feeding Goal Independent Grooming Goal Independent Dressing Goal Minimal Assistance Toileting Goal Independent Bathing Goal Independent Toilet Transfer Goal Independent Shower Transfer Goal Independent Days to Meet Goals 7 Frequency of Treatment Other frequency 5x/week Treatment Plan OT Treatment Plan ADL Training,Functional Mobility,Patient/Family Education,Discharge Planning Other Treatment ADL's at the sink to help increase activity tolerance. Recommendations and Next Treatment Focus Discharge Recommendations OT Discharge Home with 24/7 Assist Available,Home Health Recommendations Transportation Needs Private Vehicle at Discharge
[2024-12-20 09:18] VITALS: O2SAT 96
--- NOTE | 2024-12-20 09:35 | PT.IIE ---
Current Diagnoses Acute on chronic diastolic (congestive) heart failure (12/16/24) Surgical History (Last Reviewed 12/20/24 @ 12:02 by William Velázquez MD) H/O right heart catheterization History of appendectomy History of breast implant removal History of breast surgery History of cholecystectomy History of coronary artery stent placement History of total abdominal hysterectomy Medical History (Last Reviewed 12/20/24 @ 12:02 by William Velázquez MD) Cardiac arrest Chest pain Chronic respiratory failure with hypoxia Coronary artery disease Diastolic heart failure Hyperlipidemia Hypertension Left hamstring muscle strain NSTEMI (non-ST elevated myocardial infarction) Skin cancer UTI (urinary tract infection) Physical Therapy Inpatient Evaluation/Re-Eval M1 PT/OT-IP Prior Functional Status Start: 12/20/24 12:38 Freq: NEEDED Status: Active Protocol: Document 12/20/24 09:35 [facility] (Rec: 12/20/24 12:52 AB [id number]) Medical Review Prior Functional Status Medical History Yes Reviewed Communication able to make needs known Mobility and Gait pt stated that she was modified independent with all mobilities and ambulation using 4WW but occasionally will need assistance with bed mobility where her son assists her Activities of Daily per OT note: Pt needing increased time for ADL's and Living and IADL's sponges off only and has assist for her socks/shoes. Pt has assist for IADL needs. Social History Household Members children Living Arrangements Mobile home Number of Floors ( One Floor Floors) Number of Stairs To Has 4 steps with bilateral wide rail to enter and can Enter/Railing? only hold on to one rail at at [place] Has one step up from bathroom to toilet Home Environment Standard Height Toilet,Walk in Shower Home Equipment Four Wheel Walker,Bedside Commode,Shower Seat with Backrest,Hand Held Shower,Lift Recliner,Bed Rails,Grab Bars In Shower Additional Social pt lives with son who can assist her History Comment pt has an adjustable bed with R side bed cane M2 PT-IP Current Condition Start: 12/20/24 12:38 Freq: NEEDED Status: Active Protocol: Document 12/20/24 09:35 [facility] (Rec: 12/20/24 12:52 AB [id number]) Physical Therapy Current Condition Current Condition Evaluation Date 12/20/24 Treatment Diagnosis CHF; difficulty in walking Onset Date 12/16/24 M3 PT-IP Subjective Start: 12/20/24 12:38 Freq: NEEDED Status: Active Protocol: Document 12/20/24 09:35 [facility] (Rec: 12/20/24 12:52 AB [id number]) Subjective Physical Therapy Visit Type Type Initial Evaluation Visit Start Time 09:35 Visit Stop Time 10:55 Notes pt seen for split visits: 935 am to 947 am and 1030 to 1055 Number of IMPACT HAMMER OPERATOR Visits 0 Physical Therapy Visit Comments Patient Comments agreeable to do PT Therapy Pain Assessment Location Left Shoulder Intensity 8 Scale Used Numeric (0 - 10) Pain Management Distraction,Modification of Treatment,Re-positioning, Techniques Timing of Activity with Medications M4 PT-IP Mobility and Gait Start: 12/20/24 12:38 Freq: NEEDED Status: Active Protocol: Document 12/20/24 09:35 [facility] (Rec: 12/20/24 12:52 [id number]) PT-Bed Mobility Assessment Supine to Sit Supine to Sit Minimal Assistance,Head of Bed Elevated,Bedrails PT-Transfer Assessment Sit to and From Stand Sit to and from Moderate Assistance,1 Person Assistance,Use of Upper Stand Extremities Equipment Transfer Assistive Gait Belt,Front Wheeled Walker Device Orthotic/Prosthetic No Devices or Brace: Transfers Transfer Destination Chair Transfer Technique ambulated Transfer Ability Level of Assist Moderate Assistance,1 Person Assistance,Use of Upper Extremities Comments Mobility Comments pt in bed and daughter in room. obtained PLOF and home set up. BP: 120/73. O2 sat with 2.5L/min O2: 94% pt completed bed mobility supine to sit HOB elevated and use of R bed rail. (+) SOB. O2 sat: 93-94%. c/o dizziness but stated that she has chronic dizziness. BP checked: 130/103. pt rested. BP rechecked: 124/74. pt stated that she has to lay back in bed. asked pt if she really wants to go back in bed or can she ambulate to the chair. pt stated that she will try. sit to stand from EOB mod A and ambulated to the chair using FWW mod A and cues ~ 12 ft. presents with slow unsteady steps. O2 sat after ambulation: 91-92%. cued for deep breathing. positioned pt on the chair. call light and table placed within reach. Encouraged pt to stay up on the chair. Gait Assessment Gait Gait Assistance Moderate Assistance Required: Distance (Feet) 12 Able to Maintain Yes Weight Bearing Status During Gait Assistive Devices Assistive Device Gait Belt,Front Wheeled Walker Orthotic/Prosthetic No Devices or Brace: Gait Deviations General Gait Pattern Antalgic,Decreased Stride Length,Decreased Feet Clearance Factors Limiting Gait Function Factors Limiting Decreased Activity Tolerance,Decreased Strength, Gait Function Difficulty Following Directions,Limited Range of Motion ,Pain,Poor Balance,Poor Safety Awareness,Respiratory Distress PT-Balance Assessment Sitting Balance and Reactions Static Sitting Normal Balance Ability Dynamic Sitting Good Balance Ability Standing Balance and Reactions Static Standing Fair Balance Ability Dynamic Standing Fair Balance Ability Device Used FWW M5 PT-IP Objective Assessments Start: 12/20/24 12:38 Freq: NEEDED Status: Active Protocol: Document 12/20/24 09:35 [facility] (Rec: 12/20/24 12:52 AB [id number]) Orientation Orientation/Cognition Level of Alertness Alert Orientation Name,Place,Situation Language Function Hard of Hearing Ability Safety Awareness Decreased Safety Awareness Memory Description Short Term Impaired Gross Range of Motion Lower Extremity ROM Assessment Within Functional Limits Strength Lower Extremity Strength Assessment Within Functional Limits Muscle Tone Muscle Tone WNL Yes M6 PT-IP Treatment Start: 12/20/24 12:38 Freq: NEEDED Status: Active Protocol: Document 12/20/24 09:35 AB (Rec: 12/20/24 12:52 AB [id number]) Physical Therapy Treatment Education Education Provided Safety M7 PT-IP Assessment and Plan Start: 12/20/24 12:38 Freq: NEEDED Status: Active Protocol: Document 12/20/24 09:35 AB (Rec: 12/20/24 12:52 AB [id number]) PT Summary Assessment and Plan Potential Rehabilitation Fair Potential Status of Condition Evolving at Evaluation Summary Impairments Pain,ROM,Strength,Balance,Coordination,Sensation,Tone, Cognition,Bed Mobility,Transfers,Gait,Activity Tolerance Assessment Summary pt is an 89 y/o F who is admitted for CHF. pt requiring min A for bed mobility and mod A for transfers/ ambulation using FWW. pt presents with decrease activity tolerance affecting mobility. pt lives with son who can assist her if needed. will continue to assess progress. Recommending use of FWW at this time. Goals Bed Mobility Goal Independent Transfer Goal Independent,Front Wheeled Walker Gait Goal Independent,Front Wheel Walker Gait Distance 150 Other Goals improve transfers and ambulation using 4WW ~ 150 ft mod I up/down 4 steps 1 rail SBA up/down 1 step using 4WW SBA Days to Meet Goals 10 Frequency of Treatment Frequency Of Once a Day Treatment Treatment Plan Physical Therapy Bed Mobility Training,Transfer Training,Gait Training, Treatment Plan Therapeutic Exercise,Balance Retraining,Discharge Planning,Hot or Cold Pack,Neuromuscular Re-ed, Coordination Retraining Precautions Other Precautions O2 sat Recommendations To Nursing Amount of Assist 1 Person Assist Needed Discharge Recommendations Equipment Needed for FWW if not safe with 4WW Home Before Discharge Transportation Needs Private Vehicle,Wheelchair/Cabulance at Discharge - PT assist 1
[2024-12-20] MEDS: CODEINE/ACETAMINOPHEN 30/300 TABLET 1 TAB PO ×2 (11:01→20:25)
[2024-12-20 11:38] VITALS: BP 129/61; PULSE 68; RESP 14; TEMP 36; O2SAT 100
--- NOTE | 2024-12-20 11:59 | CM.DPNOTE ---
DCP Continued: Reviewed EMR and team rounds for pt?s medical status. Per RN, pt working with PT/OT and could be discharging today or tomorrow, 12/21 with family. It is identified that pt has services open with [facility] currently and was agreeable to referral sent there if recommended by PT/OT. PT eval pending, OT recommending home with home health. DCP sent referral with signed [id number] orders to [facility] via secure email. Plan: Anticipating dc home with daughter to transport on 12/20 or Monday, 12/21. CM Team will continue to follow for coordination of discharge plans. KOLBY MelendezSW
--- NOTE | 2024-12-20 12:00 | P.PN_ITS ---
Subjective Subjective Interval history: Hospital course: 12/15: 89-year-old woman under the primary care of Dr. Zoe Bass, [facility], and Dr. Eva Ellington of Cardiology with Chronic diastolic CHF (HFpEF) presents with 1 week of progressive edema and weight gain. She initially gained 3 lb and took an extra dose of Lasix, and when up to 4 lb, took another extra dose, but failed to see an improvement and gained 10 lb of fluid, with associated abdominal distention and increasing fluid retention in her legs, with associated orthopnea and paroxysmal nocturnal dyspnea. She presented with her daughter to the emergency department with normal oxygen levels, elevated NT pro BNP of 736, clinical and radiographic findings of congestive heart failure, and administered IV furosemide. She is admitted for further evaluation and management. Hospital course: 12/16: Cough throughout the night and episodes of paroxysmal nocturnal dyspnea urinating using the external catheter no episodes of chest pain fevers or chills and cough is nonproductive. Urine output reported 1200 overnight with a net of 1100- output. Cardiac exam is unremarkable today pulmonary exam has rales in the lower 2/3 of lung ibrahim extremities have 2+ edema of hands and feet ring finger has a wedding ring that has been on there for 67 years there is no signs of compromise of the ring finger but it is tight 8/5: Coughing up yellow phlegm lower pelvic pain and dysuria no fevers or chills overnight. She has bibasilar rales still today which still has 1 to 2+ edema in all 4 extremities 8/6: Patient feeling somewhat fatigued and malaise still producing phlegm swelling in the hands is improved swelling in the feet seems improved as well. Crackles in the lower lung bases now 8: Patient not feeling back to her baseline but improvement from yesterday still short of breath still fatigued coughing up copious amounts of yellow and greenish phlegm decreased swelling in her hands notable S: She remains with significant dyspnea on exertion and edema. She was improving but still is coughing and generally uncomfortable. She was on 3 L of oxygen, this is her baseline. Exam Vital Signs (past 8 hours): - 12/20/24 09:18 Pulse Oximetry 96 Oxygen Delivery Method Nasal Cannula Oxygen Flow Rate 1.5 Oxygen Delivery Method Nasal Cannula Oxygen Flow Rate 1.5 Narrative Exam Narrative: NAD, alert and oriented. Fluent speech. On 3 L O2 NC Lungs are notable for scattered rales, normal rate and effort. Heart is regular, no murmur gallop or rub. Abdomen is soft, non distended. Extremities are free of edema. Objective Labs 12/16/24 05:20 12/16/24 05:20 [facility] Medical History Chronic respiratory failure with hypoxia Skin cancer NSTEMI (non-ST elevated myocardial infarction) Diastolic heart failure Cardiac arrest Chest pain Hypertension Hyperlipidemia Coronary artery disease Left hamstring muscle strain UTI (urinary tract infection) Surgical History H/O right heart catheterization History of breast implant removal History of breast surgery History of appendectomy History of cholecystectomy History of total abdominal hysterectomy History of coronary artery stent placement Family History Father Hypertension Diabetes mellitus Mother Hypertension [place] (myocardial infarction) Sister [place] (myocardial infarction) S/P CABG x 4 Social History household members: children Smoking Status: Never smoker alcohol intake: never Assessment & Plan Assessment & Plan narrative: Possible superimposed pneumonia: * Ceftriaxone azithromycin empirically * Sputum culture pending 1. Acute on chronic diastolic congestive heart failure. Active. * Repeat echocardiogram. The left ventricular cavity is small. The ejection fraction is estimated to be 65-70%. Diastolic parameters suggest a relaxation abnormality of the left ventricle, consistent with probable normal filling pressures. There is no hemodynamically significant valvular aortic stenosis. There is mild to moderate mitral annular calcification. The mitral valve mean gradient is 3.3 mmHg. Comparison is made with the echocardiogram of 01/26/2024, no significant change. * Continue Intravenous diuresis * Monitor daily basic metabolic profile * Significant bilateral pulmonary edema data symptomatic * 2. Coronary artery disease with history of non STEMI and cardiac arrest. Monitor serial cardiac enzymes, normal at this point. * Continue all core measures 3. Hypertension. Continue routine medication. 4. Hyperlipidemia. Continue statin therapy. 5. GERD. Continue PPI. PLAN: -we will continue to diurese for an additional 1-2 days. -she was on her baseline oxygen. -we will monitor cough and degree of dyspnea with exertion. She does live independently. BJ: 1-2 days. DVT prophylaxis: * subcutaneous LovenoxCode status: * Full code. The patient clearly states she wishes full measures in the in cardiac arrest, and that her surrogate decision maker is her daughter LisaDisposition: Time-Based Coding :: [TOTAL MINUTES] spent with patient and on the chart (including review of chart, obtaining history, exam, reviewing outside data, placing orders, documenting exam and treatment plan, and counseling patient) on [DATE].
[2024-12-20] MEDS: ATORVASTATIN 20 MG TABLET 80 MG PO (20:08)
[2024-12-20] MEDS: diphenhydrAMINE 25 MG TABLET PO (20:08)
[2024-12-20 22:34] VITALS: O2SAT 94
[2024-12-20 23:00] VITALS: BP 108/49; PULSE 68; RESP 16; TEMP 36.5; O2SAT 96
[2024-12-21] MEDS: FUROSEMIDE 40 MG/4 ML VIAL IV ×4 (00:30→23:23)
[2024-12-21] MEDS: HEPARIN 5,000 UNIT/ML VIAL 7500 UNIT SUBCUT ×3 (06:07→21:39)
--- NOTE | 2024-12-21 07:45 | P.PN_ITS ---
Subjective Subjective Interval history: S: She still does not feel great. She was coughing up yellow sputum. She is still generally weak and has malaise. Her oxygen is stable on 2-3 L. She takes 3 L at home. She 5 mg. Exam Vital Signs (past 8 hours): Oxygen Delivery Method Nasal Cannula Oxygen Flow Rate 1.5 Narrative Exam Narrative: NAD, alert and oriented. Fluent speech. On 3 L O2 NC Lungs are notable for scattered rales, normal rate and effort. Globally diminished breath sounds, some prolongation of expiratory phase with bronchospasm and a cough on forced expiration. Heart is regular, no murmur gallop or rub. Abdomen is soft, non distended. Extremities are free of edema. Objective Labs 12/16/24 05:20 12/16/24 05:20 [facility] Medical History Chronic respiratory failure with hypoxia Skin cancer NSTEMI (non-ST elevated myocardial infarction) Diastolic heart failure Cardiac arrest Chest pain Hypertension Hyperlipidemia Coronary artery disease Left hamstring muscle strain UTI (urinary tract infection) Surgical History H/O right heart catheterization History of breast implant removal History of breast surgery History of appendectomy History of cholecystectomy History of total abdominal hysterectomy History of coronary artery stent placement Family History Father Hypertension Diabetes mellitus Mother Hypertension [place] (myocardial infarction) Sister [place] (myocardial infarction) S/P CABG x 4 Social History household members: children Smoking Status: Never smoker alcohol intake: never Assessment & Plan Assessment & Plan narrative: 1. Possible superimposed pneumonia: * Ceftriaxone azithromycin empirically * Sputum culture pending 2. Acute on chronic diastolic congestive heart failure. Active. * Repeat echocardiogram.The left ventricular cavity is small. The ejection fraction is estimated to be 65-70%. Diastolic parameters suggest a relaxation abnormality of the left ventricle, consistent with probable normal filling pressures. There is no hemodynamically significant valvular aortic stenosis. There is mild to moderate mitral annular calcification. The mitral valve mean gradient is 3.3 mmHg. Comparison is made with the echocardiogram of 01/26/2024, no significant change. * Continue Intravenous diuresis * Monitor daily basic metabolic profile * Significant bilateral pulmonary edema data symptomatic * 2. Coronary artery disease with history of non STEMI and cardiac arrest. Monitor serial cardiac enzymes, normal at this point. * Continue all core measures 3. Hypertension. Continue routine medication. 4. Hyperlipidemia. Continue statin therapy. 5. GERD. Continue PPI. PLAN: -we will continue to diurese for an additional 1-2 days. -she is on her baseline oxygen. -repeat CXR -Increase prednisone to 40 mg a day for bronchospasm and possible reactive airways component. -sputum culture. BJ: 1-2 days. Time-Based Coding :: [TOTAL MINUTES] spent with patient and on the chart (including review of chart, obtaining history, exam, reviewing outside data, placing orders, documenting exam and treatment plan, and counseling patient) on [DATE].
[2024-12-21 08:00] VITALS: BP 172/67; PULSE 67; RESP 20; TEMP 36.4; O2SAT 98
[2024-12-21] MEDS: METOPROLOL IR 25 MG TABLET 12.5 MG PO ×2 (08:20→20:34)
[2024-12-21] MEDS: PANTOPRAZOLE DR 40 MG TABLET PO (08:20)
[2024-12-21] MEDS: RANOLAZINE 500 MG TAB.ER.12H PO ×2 (08:20→20:34)
[2024-12-21] MEDS: ASPIRIN EC 81 MG TABLET PO (08:21)
[2024-12-21] MEDS: ESCITALOPRAM 10 MG TABLET 20 MG PO (08:21)
[2024-12-21] MEDS: DOXYCYCLINE HYCLATE 100 MG TABLET PO ×2 (08:21→20:33)
[2024-12-21] MEDS: SODIUM CHLORIDE 0.9% FLUSH 10 ML IV ×2 (08:22→20:35)
[2024-12-21 09:18] VITALS: O2SAT 95
--- NOTE | 2024-12-21 10:10 | PT.IPTN ---
Current Diagnoses Acute on chronic diastolic (congestive) heart failure (12/16/24) Physical Therapy Treatment Note M2 PT-IP Current Condition Start: 12/20/24 12:38 Freq: NEEDED Status: Active Protocol: Document 12/20/24 09:35 AB (Rec: 12/20/24 12:52 AB [id number]) Physical Therapy Current Condition Current Condition Evaluation Date 12/20/24 Treatment Diagnosis CHF; difficulty in walking Onset Date 12/16/24 M3 PT-IP Subjective Start: 12/20/24 12:38 Freq: NEEDED Status: Active Protocol: Document 12/21/24 10:10 AB (Rec: 12/21/24 13:23 AB Desktop) Subjective Physical Therapy Visit Type Type Treatment Note Visit Start Time 10:10 Visit Stop Time 10:35 Number of [employer] RAFTING GUIDE Visits 0 Physical Therapy Visit Comments Patient Comments agreeable to do PT M4 PT-IP Mobility and Gait Start: 12/20/24 12:38 Freq: NEEDED Status: Active Protocol: Document 12/21/24 10:10 AB (Rec: 12/21/24 13:23 AB Desktop) PT-Bed Mobility Assessment Supine to Sit Supine to Sit Minimal Assistance,1 Person Assistance,Head of Bed Elevated,Bedrails PT-Transfer Assessment Sit to and From Stand Sit to and from Minimal Assistance,1 Person Assistance,Use of Upper Stand Extremities Equipment Transfer Assistive Gait Belt,Front Wheeled Walker Device Orthotic/Prosthetic No Devices or Brace: Transfers Transfer Destination Chair Transfer Technique ambulated Transfer Ability Level of Assist Minimal Assistance,1 Person Assistance,Use of Upper Extremities Comments Mobility Comments pt in bed and agreeable to do PT. pt's daughter in room. pt completed supine to sit min A and cues. HOB elevated and pt used R rail to assist. pt sat on EOB to rest. O2 sat: 94%. sit to stand min A and pt ambulated to the chair using FWW min A and cues. pt sat back on the chair. O2 sat: 92-93%. pt refused to ambulate more and just wants to rest on the chair. positioned pt on the chair. call light and table placed within reach. informed pt and daughter regarding borrowing a FWW for pt and both stated that they will get one for pt. also informed pt regarding stairs to enter the house and stated that she has other family members that will assist her to get into the house. Gait Assessment Gait Gait Assistance Minimum Assistance Required: Distance (Feet) 15 Able to Maintain Yes Weight Bearing Status During Gait Assistive Devices Assistive Device Gait Belt,Front Wheeled Walker Orthotic/Prosthetic No Devices or Brace: Gait Deviations General Gait Pattern Decreased Stride Length,Decreased Feet Clearance,Step- to Gait Factors Limiting Gait Function Factors Limiting Decreased Activity Tolerance,Decreased Strength,Poor Gait Function Balance,Poor Safety Awareness,Respiratory Distress M5 PT-IP Objective Assessments Start: 12/20/24 12:38 Freq: NEEDED Status: Active Protocol: Document 12/20/24 09:35 AB (Rec: 12/20/24 12:52 AB [id number]) Orientation Orientation/Cognition Level of Alertness Alert Orientation Name,Place,Situation Language Function Hard of Hearing Ability Safety Awareness Decreased Safety Awareness Memory Description Short Term Impaired Gross Range of Motion Lower Extremity ROM Assessment Within Functional Limits Strength Lower Extremity Strength Assessment Within Functional Limits Muscle Tone Muscle Tone WNL Yes M6 PT-IP Treatment Start: 12/20/24 12:38 Freq: NEEDED Status: Active Protocol: Document 12/21/24 10:10 AB (Rec: 12/21/24 13:23 AB Desktop) Physical Therapy Treatment Education Education Provided Safety M7 PT-IP Assessment and Plan Start: 12/20/24 12:38 Freq: NEEDED Status: Active Protocol: Document 12/21/24 10:10 AB (Rec: 12/21/24 13:23 AB Desktop) PT Summary Assessment and Plan Potential Rehabilitation Fair Potential Summary Impairments Pain,ROM,Strength,Balance,Coordination,Sensation,Tone, Cognition,Bed Mobility,Transfers,Gait,Activity Tolerance Progress Towards Slow Progress due to Medical Issues,Slow Progress due Goals to Activity Tolerance Assessment Summary pt progressing slowly with mobility and able to ambulate today using fWW min A ~ 20 ft. pt continues to have decrease activity tolerance and will need 24/7 assist at home. pt lives with her son who can provide assistance to pt. pt will also benefit from HHPT. Goals Bed Mobility Goal Independent Transfer Goal Independent,Front Wheeled Walker Gait Goal Independent,Front Wheel Walker Gait Distance 150 Other Goals improve transfers and ambulation using 4WW ~ 150 ft mod I up/down 4 steps 1 rail SBA up/down 1 step using 4WW SBA Days to Meet Goals 10 Frequency of Treatment Frequency Of Once a Day Treatment Treatment Plan Physical Therapy Bed Mobility Training,Transfer Training,Gait Training, Treatment Plan Therapeutic Exercise,Balance Retraining,Discharge Planning,Hot or Cold Pack,Neuromuscular Re-ed, Coordination Retraining Precautions Other Precautions O2 sat Recommendations To Nursing Amount of Assist 1 Person Assist Needed Discharge Recommendations Transportation Needs Private Vehicle,Wheelchair/Cabulance at Discharge - PT assist 1
--- NOTE | 2024-12-21 14:57 | DI.RAD.S_ITS ---
PROCEDURE: XR CHEST 1V INDICATIONS: dyspnea TECHNIQUE: One view of the chest was acquired. COMPARISON: [facility], CR, XR CHEST 1V, 12/19/2024, 12:55. FINDINGS: Surgical changes and devices: None. Lungs and pleura: Mild bibasilar interstitial markings, likely fibrosis and/or scarring. No concerning consolidation. No pleural effusion. No pneumothorax. Mediastinum: Cardiomegaly, unchanged. Bones and chest wall: No suspicious bony lesions. Overlying soft tissues appear unremarkable. IMPRESSION: Cardiomegaly with stable scarring. No acute cardiopulmonary findings. Dictated by: Richie Lan M.D. on 12/21/2024 at 14:16 Approved by: Richie Lan M.D. on 12/21/2024 at 14:17
[2024-12-21 15:23] LABS: Hematocrit 34.8 % (36-46); Hemoglobin 11.2 g/dL (12.0-16.0); Mean Corpuscular HGB Conc 32.3 % (30-36); Mean Corpuscular Hemoglobin 24.9 PG (26-34); Mean Corpuscular Volume 77.1 fL (80-100); Platelet Count 224 X10^3/uL (150-400)
[2024-12-21 15:36] LABS: Alanine Aminotransferase 13 IU/L (<35); Albumin 3.9 g/dL (3.5-5.0); Albumin Globulin Ratio 1.4 (1.0-2.8); Alkaline Phosphatase 53 U/L (38-126); Blood Urea Nitrogen 36 mg/dL (7-17); Calcium 9.3 mg/dL (8.4-10.2); Carbon Dioxide 37 mmol/L (22-32); Chloride 86 mmol/L (98-107); Estimated Glomerular Filt Rate 39 mL/min (>60); Globulin 2.8 g/dL (1.7-4.1); Glucose 243 mg/dL (70-99); HEMOLYSIS < 15 (0-50); Potassium 3.9 mmol/L (3.4-5.1); Sodium 131 mmol/L (137-145); Total Protein 6.7 g/dL (6.3-8.2)
[2024-12-21 20:00] VITALS: BP 150/60; PULSE 78; RESP 19; TEMP 36.4; O2SAT 99
[2024-12-21] MEDS: ATORVASTATIN 20 MG TABLET 80 MG PO (20:33)
[2024-12-21] MEDS: diphenhydrAMINE 25 MG TABLET PO (20:34)
[2024-12-21] MEDS: CODEINE/ACETAMINOPHEN 30/300 TABLET 1 TAB PO (20:34)
--- NOTE | 2024-12-22 05:25 | PC.NURSE ---
Assumed care of patient at 1130 on 12/22/24
[2024-12-22] MEDS: HEPARIN 5,000 UNIT/ML VIAL 7500 UNIT SUBCUT ×3 (06:40→21:09)
--- NOTE | 2024-12-22 07:49 | P.PN_ITS ---
Subjective Subjective Interval history: Summary: 89-year-old female with a history of diastolic heart failure presented with progressive edema and dyspnea on exertion. She noted a 10 lb weight gain. Initial imaging consistent with pulmonary edema and she was started on diuretics. 12/15: Clinical and radiographic findings of congestive heart failure, and administered IV furosemide. She is admitted for further evaluation and management. 8: Cough throughout the night and episodes of paroxysmal nocturnal dyspnea urinating using the external catheter no episodes of chest pain fevers or chills and cough is nonproductive. Urine output reported 1200 overnight with a net of 1100- output. Cardiac exam is unremarkable today pulmonary exam has rales in the lower 2/3 of lung ibrahim extremities have 2+ edema of hands and feet ring finger has a wedding ring that has been on there for 67 years there is no signs of compromise of the ring finger but it is tight. 85: Coughing up yellow phlegm lower pelvic pain and dysuria no fevers or chills overnight. She has bibasilar rales still today which still has 1 to 2+ edema in all 4 extremities. 86: Patient feeling somewhat fatigued and malaise still producing phlegm swelling in the hands is improved swelling in the feet seems improved as well. Crackles in the lower lung bases now. 8: Patient not feeling back to her baseline but improvement from yesterday still short of breath still fatigued coughing up copious amounts of yellow and greenish phlegm decreased swelling in her hands notable. 8: Marginal improvement of general energy level and breathing. On oxygen at 3 L, her baseline. Edema improving. She does have good response to diuretics as evidenced by output and her PureWick. 8: Feels about the same, improved edema but persistent fatigue and dyspnea with exertion. Sputum was obtained, a green dixon expectoration. No growth on culture. S: She was started on prednisone yesterday due to expiratory bronchospasm and coughing for possible reactive airways component. She was feel better today. She did reasonably well physical therapy. She was intermittent cough of dixon phlegm. A CT without contrast and leg ultrasounds were obtained to both evaluate lungs and rule out thromboembolism. She was history of contrast allergy so a CTA was deferred. Exam Vital Signs (past 8 hours): Oxygen Delivery Method Nasal Cannula,CPAP Oxygen Flow Rate 3 Narrative Exam Narrative: NAD, alert and oriented. Fluent speech. On 3 L O2 NC Lungs are notable for bibasilar rales, normal rate and effort. Cough with forced expiration. Abdomen is soft, non distended. Extremities are free of edema. Objective ECG Impression: ntervals [place] Rate: 64 P: 74 CT: 190 QRS: 99 QRSD: 96 T: 44 QT: 480 QTc: 495 Interpretive Statements Normal sinus rhythm Rightward axis Incomplete right bundle branch block Prolonged QT Imaging Multiple studies:: Radiologist's impression: Chest x-ray December 21: Cardiomegaly with stable scarring. No acute cardiopulmonary findings. Chest x-ray December 19: Mild cardiomegaly and scattered fibrosis. No acute cardiopulmonary disease Echo December 15: The study quality was technically difficult. The left ventricular cavity is small. The ejection fraction is estimated to be 65-70%. Diastolic parameters suggest a relaxation abnormality of the left ventricle, consistent with probable normal filling pressures. There is no hemodynamically significant valvular aortic stenosis. There is mild to moderate mitral annular calcification. The mitral valve mean gradient is 3.3 mmHg. Comparison is made with the echocardiogram of 01/26/2024, no significant change. Right Ventricle: The right ventricle grossly appears normal in size with probable normal systolic function. Chest x-ray December 15: Low lung volumes with mild interstitial prominence and cardiomegaly. Please consider CHF. Chest CTA October 25: No pulmonary embolus. Trace bilateral pleural effusions are seen. There is moderate cardiomegaly. Moderate to prominent coronary artery calcification can be seen. Subpleural pulmonary fibrotic changes are seen. Stable nodular thickening of the right breast can be seen superior to the nipple. If not already previously worked up, then follow-up diagnostic mammogram would be recommended, if clinically appropriate. Additional findings: Stable chronic thoracic spine anterior wedge deformities the Moderate hiatal hernia Labs 12/21/24 15:17 12/21/24 15:17 Labs: Laboratory Results - last 24 hr 12/21/24 15:17 WBC 11.5 H RBC 4.51 Hgb 11.2 L Hct 34.8 L MCV 77.1 L MCH 24.9 L MCHC 32.3 RDW 19.0 H Plt Count 224 Sodium 131 L Potassium 3.9 Chloride 86 L Carbon Dioxide 37 H BUN 36 H Creatinine 1.31 H Estimated GFR 39 L BUN/Creatinine Ratio 27.5 H Glucose 243 H Calcium 9.3 Total Bilirubin 0.4 AST 31 ALT 13 Alkaline Phosphatase 53 Total Protein 6.7 Albumin 3.9 Globulin 2.8 Albumin/Globulin Ratio 1.4 PFSH Medical History Chronic respiratory failure with hypoxia Skin cancer NSTEMI (non-ST elevated myocardial infarction) Diastolic heart failure Cardiac arrest Chest pain Hypertension Hyperlipidemia Coronary artery disease Left hamstring muscle strain UTI (urinary tract infection) Surgical History H/O right heart catheterization History of breast implant removal History of breast surgery History of appendectomy History of cholecystectomy History of total abdominal hysterectomy History of coronary artery stent placement Family History Father Hypertension Diabetes mellitus Mother Hypertension [place] (myocardial infarction) Sister [place] (myocardial infarction) S/P CABG x 4 Social History household members: children Smoking Status: Never smoker alcohol intake: never Assessment & Plan Assessment & Plan narrative: 1. Possible superimposed pneumonia (CT negative): * Ceftriaxone azithromycin empirically Diastolic parameters suggest a relaxation abnormality of the left ventricle, consistent with probable normal filling pressures. There is no hemodynamically significant valvular aortic stenosis. There is mild to moderate mitral annular calcification. The mitral valve mean gradient is 3.3 mmHg. Comparison is made with the echocardiogram of 01/26/2024, no significant change. * Continue Intravenous diuresis * Monitor daily basic metabolic profile * Significant bilateral pulmonary edema data symptomatic * 2. Coronary artery disease with history of non STEMI and cardiac arrest. Monitor serial cardiac enzymes, normal at this point. * Continue all core measures3. Hypertension. Continue routine medication. 2. Acute on chronic diastolic heart failure, improved. 3. CAD with history of NSTEMI, stable. 4. Hyperlipidemia. Continue statin therapy. 5. GERD. Continue PPI. 6. Cardiac amyloid, stable. 7. Morbid obesity with BMI of 43. PLAN: -we will transitioned to oral Lasix. -we will continue prednisone of 40 a day for about 5 days and then go back to baseline dosing of 5. -sputum culture was negative. -we will continue antibiotics for a total course of 5-7 days. -she has fibrotic lung disease and chronic hypoxic respiratory failure and remains on her home oxygen level at 3 L. -I indicated that she would likely go home in the next 1 day or so on oral steroids and she seemed relatively comfortable with this. BJ: 1-2 days. Time-Based Coding :: [TOTAL MINUTES] spent with patient and on the chart (including review of chart, obtaining history, exam, reviewing outside data, placing orders, documenting exam and treatment plan, and counseling patient) on [DATE].
[2024-12-22 08:55] VITALS: BP 163/56; PULSE 63; RESP 16; TEMP 35.9; O2SAT 99
[2024-12-22] MEDS: FUROSEMIDE 40 MG/4 ML VIAL IV ×2 (09:00→15:52)
[2024-12-22] MEDS: SODIUM CHLORIDE 0.9% FLUSH 10 ML IV ×2 (09:00→21:06)
[2024-12-22] MEDS: ASPIRIN EC 81 MG TABLET PO (09:05)
[2024-12-22] MEDS: ESCITALOPRAM 10 MG TABLET 20 MG PO (09:05)
[2024-12-22] MEDS: RANOLAZINE 500 MG TAB.ER.12H PO ×2 (09:05→21:07)
[2024-12-22] MEDS: PANTOPRAZOLE DR 40 MG TABLET PO (09:05)
[2024-12-22] MEDS: METOPROLOL IR 25 MG TABLET 12.5 MG PO ×2 (09:05→21:06)
[2024-12-22] MEDS: DOXYCYCLINE HYCLATE 100 MG TABLET PO ×2 (09:05→21:08)
[2024-12-22 09:35] VITALS: O2SAT 98
--- NOTE | 2024-12-22 09:45 | PT.IPTN ---
Current Diagnoses Acute on chronic diastolic (congestive) heart failure (12/16/24) Physical Therapy Treatment Note M2 PT-IP Current Condition Start: 12/20/24 12:38 Freq: NEEDED Status: Active Protocol: Document 12/20/24 09:35 AB (Rec: 12/20/24 12:52 AB [id number]) Physical Therapy Current Condition Current Condition Evaluation Date 12/20/24 Treatment Diagnosis CHF; difficulty in walking Onset Date 12/16/24 M3 PT-IP Subjective Start: 12/20/24 12:38 Freq: NEEDED Status: Active Protocol: Document 12/22/24 09:26 MB (Rec: 12/22/24 09:45 MB Desktop) Subjective Physical Therapy Visit Type Type Treatment Note Visit Start Time 09:26 Visit Stop Time 09:41 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 0 Physical Therapy Visit Comments Patient Comments Agreeable to PT Therapy Pain Assessment Pain Present Pain Present Denied Pain M4 PT-IP Mobility and Gait Start: 12/20/24 12:38 Freq: NEEDED Status: Active Protocol: Document 12/22/24 09:26 MB (Rec: 12/22/24 09:45 MB Desktop) PT-Bed Mobility Assessment Rolling Type of Rolling Roll to Left Level of Assist Standby Assistance Supine to Sit Supine to Sit Standby Assistance,1 Person Assistance,Head of Bed Elevated,Bedrails Scooting Scooting to Edge of Standby Assistance Bed PT-Transfer Assessment Sit to and From Stand Sit to and from Standby Assistance,1 Person Assistance,Use of Upper Stand Extremities Equipment Transfer Assistive Gait Belt,Front Wheeled Walker Device Orthotic/Prosthetic No Devices or Brace: Transfers Transfer Destination Bedside Commode Transfer Technique Stepping Transfer Ability Level of Assist Contact Guard Assistance,1 Person Assistance,Use of Upper Extremities Comments Mobility Comments O2 sats on 3L O2 after getting up to EOB are 90% and then 92%, BP and HR in LUE are 142/68, 69-70 BPM. Pt wishes to sit up on the BSC to try for BM Gait Assessment Gait Gait Assistance Contact Guard Assist,1 Person Assist Required: Distance (Feet) 2 Assistive Devices Assistive Device Gait Belt,Front Wheeled Walker Orthotic/Prosthetic No Devices or Brace: Gait Deviations General Gait Pattern Decreased Stride Length,Decreased Feet Clearance,Flexed Trunk Factors Limiting Gait Function Factors Limiting Decreased Activity Tolerance Gait Function PT-Balance Assessment Sitting Balance and Reactions Static Sitting Normal Balance Ability Dynamic Sitting Good Balance Ability Standing Balance and Reactions Static Standing Fair Balance Ability Dynamic Standing Fair Balance Ability Device Used FWW M5 PT-IP Objective Assessments Start: 12/20/24 12:38 Freq: NEEDED Status: Active Protocol: Document 12/20/24 09:35 AB (Rec: 12/20/24 12:52 AB [id number]) Orientation Orientation/Cognition Level of Alertness Alert Orientation Name,Place,Situation Language Function Hard of Hearing Ability Safety Awareness Decreased Safety Awareness Memory Description Short Term Impaired Gross Range of Motion Lower Extremity ROM Assessment Within Functional Limits Strength Lower Extremity Strength Assessment Within Functional Limits Muscle Tone Muscle Tone WNL Yes M6 PT-IP Treatment Start: 12/20/24 12:38 Freq: NEEDED Status: Active Protocol: Document 12/21/24 10:10 AB (Rec: 12/21/24 13:23 AB Desktop) Physical Therapy Treatment Education Education Provided Safety M7 PT-IP Assessment and Plan Start: 12/20/24 12:38 Freq: NEEDED Status: Active Protocol: Document 12/22/24 09:26 MB (Rec: 12/22/24 09:45 MB Desktop) PT Summary Assessment and Plan Potential Rehabilitation Fair Potential Status of Condition Evolving at Evaluation Summary Impairments Strength,Balance,Transfers,Gait,Activity Tolerance Progress Towards Slow Progress due to Activity Tolerance Goals Assessment Summary Pt reports light-headedness with getting up. Left up on BSC with SENIOR PROCESS ANALYST assistance, BP higher with sitting and sats WNLs on 3L today. Goals Bed Mobility Goal Independent Transfer Goal Independent,Front Wheeled Walker Gait Goal Independent,Front Wheel Walker Gait Distance 75 Other Goals improve transfers and ambulation using 4WW ~ 150 ft mod I up/down 4 steps 1 rail SBA up/down 1 step using 4WW SBA Days to Meet Goals 10 Frequency of Treatment Frequency Of Once a Day Treatment Treatment Plan Physical Therapy Bed Mobility Training,Transfer Training,Gait Training, Treatment Plan Therapeutic Exercise,Balance Retraining,Discharge Planning,Hot or Cold Pack,Neuromuscular Re-ed, Coordination Retraining Precautions Other Precautions O2 sat Recommendations To Nursing Amount of Assist 1 Person Assist Needed Discharge Recommendations PT Discharge Home with 24/ Assist Available,Home Health,SNF Rehab Recommendations Transportation Needs Private Vehicle,Wheelchair/Cabulance at Discharge - PT assist x1
--- NOTE | 2024-12-22 11:34 | DI.CT.S_ITS ---
PROCEDURE: CT CHEST WO CON INDICATIONS: dyspnea TECHNIQUE: Noncontrast 5 mm thick sections acquired from the pulmonary apices to the posterior costophrenic angles. 1 mm lung window, 5 mm thick coronal and sagittal and 7 mm axial MIP reformats were then acquired. For radiation dose reduction, the following was used: automated exposure control, adjustment of mA and/or kV according to patient size. COMPARISON: [facility], CT, CT CHEST WO CON, 10/14/2024, 10:25. FINDINGS: Image quality: Diagnostic. Lower Neck: No enlarged lymph nodes. Thyroid: No thyroid nodules which require sonographic follow up, per consensus guidelines. Axillae: No enlarged lymph nodes. Chest Wall: Nodular thickening of the superior right breast the spiculations. Bones: Advanced osteoarthritic changes of the shoulder. Moderate spondylitic changes of the visualized spine. No acute fracture. Lungs and Pleura: No concerning consolidation. Moderate reticulations most prominent within the lung bases with traction bronchiectasis. No honeycombing. No pleural effusion No pleural effusion Heart: Heart size is normal. No pericardial effusion. Severe coronary calcifications. Thoracic Vessels: The aorta and pulmonary arteries demonstrate normal size. Mediastinum and Usha: No enlarged lymph nodes. Esophagus: No wall thickening. No hiatal hernia. Upper Abdomen: Visualized upper abdomen solid organs and bowel loops appear normal. IMPRESSION: 1. Unchanged appearance of reticular thickening consistent residual lung disease. 2. Advanced shoulder osteoarthritic changes. 3. Nodular thickening of the right breast, correlate with mammography and surgical history to exclude mass. Dictated by: Richie Lan M.D. on 12/22/2024 at 11:27 Approved by: Richie Lan M.D. on 12/22/2024 at 11:33
--- NOTE | 2024-12-22 11:34 | DI.US.S_ITS ---
PROCEDURE: US PERIPH VENOUS LOW EXTREM BI INDICATIONS: rule out DVT TECHNIQUE: Real-time imaging, as well as color and pulse Doppler interrogation, were performed of the deep veins of both legs from the inguinal ligament to the popliteal fossa, with documentation of the visualized calf veins. COMPARISON: [facility], , US PERIP VENOUS LOW EXTREM BI, 12/09/2019, 17:20. FINDINGS: Right: The common femoral, femoral, popliteal, and the visualized calf veins are normally compressible, and free of intraluminal thrombus. Color and pulse Doppler demonstrate normal phasic intravascular flow. There is normal augmentation response to distal compression maneuver. Left: The common femoral, femoral, popliteal, and the visualized calf veins are normally compressible, and free of intraluminal thrombus. Color and pulse Doppler demonstrate normal phasic intravascular flow. There is normal augmentation response to distal compression maneuver. IMPRESSION: No findings of deep venous thrombosis in either lower extremity. Dictated by: Richie Lan M.D. on 12/22/2024 at 13:33 Approved by: Richie Lan M.D. on 12/22/2024 at 13:37
--- NOTE | 2024-12-22 14:00 | CM.DPC ---
DCP Cont: Per MD, pt clinically appears to be improving but pt continues to feel poorly and started on steroids and had CT scan today and sputum collected to r/o any further medical needs. Per PT, recommending HH vs SNF pending progress. SW met bedside with pt and Dtr, remembered from earlier last week, and discussed HH vs SNF. 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 Pt and family feel they can safely manage her needs at home with [facility]. Pt hopeful to get home in the next 1-2 days and states she is starting to feel a little better. Plan: SW to follow for ongoing plan of discharge home with family assist when medically stable and [facility]. DONNELL Erickson
[2024-12-22 20:00] VITALS: BP 121/99; PULSE 76; RESP 16; TEMP 36.1; O2SAT 95
[2024-12-22] MEDS: diphenhydrAMINE 25 MG TABLET PO (21:07)
[2024-12-22] MEDS: ATORVASTATIN 20 MG TABLET 80 MG PO (21:07)
[2024-12-22] MEDS: CODEINE/ACETAMINOPHEN 30/300 TABLET 1 TAB PO (21:08)
[2024-12-22] MEDS: BENZOCAINE/MENTHOL 1 LOZ PKT 1 EACH PO (21:43)
[2024-12-23] MEDS: FUROSEMIDE 40 MG/4 ML VIAL IV ×2 (00:18→08:55)
[2024-12-23] MEDS: HEPARIN 5,000 UNIT/ML VIAL 7500 UNIT SUBCUT (05:56)
[2024-12-23] MEDS: ASPIRIN EC 81 MG TABLET PO (08:54)
[2024-12-23] MEDS: METOPROLOL IR 25 MG TABLET 12.5 MG PO (08:54)
[2024-12-23] MEDS: DOXYCYCLINE HYCLATE 100 MG TABLET PO (08:54)
[2024-12-23] MEDS: PANTOPRAZOLE DR 40 MG TABLET PO (08:54)
[2024-12-23] MEDS: ESCITALOPRAM 10 MG TABLET 20 MG PO (08:55)
[2024-12-23] MEDS: RANOLAZINE 500 MG TAB.ER.12H PO (08:55)
[2024-12-23 09:00] VITALS: BP 139/48; PULSE 67; RESP 17; TEMP 36.1; O2SAT 97
[2024-12-23] MEDS: SODIUM CHLORIDE 0.9% FLUSH 10 ML IV (09:00)
--- NOTE | 2024-12-23 09:24 | OT.IPNOTE ---
Pt reclined in bed with dtr present. Pt reports she is d/c today. OT offered to assist her in performing ADLs, pt declined stating she had just received lasix. OT offered to assist in sink side ADLs and/or t/f to chair. Pt declined these as well. Pt left reclined in bed with needs met and dtr present.
--- NOTE | 2024-12-23 09:28 | PM.DS.1 ---
History of Present Illness History of Present Illness Date Patient Seen: 12/23/24 Chief complaint: SOB, pain in upper abd, cough, light headed Narrative: Chief complaint: Shortness for breath secondary to acute on chronic diastolic congestive heart failure and lower respiratory infection with chronic fibrotic lung change History of present illness: 12/15: 89-year-old woman under the primary care of Dr. Zoe Bass, [facility], and Dr. Eva Ellington of Cardiology with Chronic diastolic CHF (HFpEF) presents with 1 week of progressive edema and weight gain. She initially gained 3 lb and took an extra dose of Lasix, and when up to 4 lb, took another extra dose, but failed to see an improvement and gained 10 lb of fluid, with associated abdominal distention and increasing fluid retention in her legs, with associated orthopnea and paroxysmal nocturnal dyspnea. She presented with her daughter to the emergency department with normal oxygen levels, elevated NT pro BNP of 736, clinical and radiographic findings of congestive heart failure, and administered IV furosemide. She is admitted for further evaluation and management. Hospital course: 12/16: Cough throughout the night and episodes of paroxysmal nocturnal dyspnea urinating using the external catheter no episodes of chest pain fevers or chills and cough is nonproductive. Urine output reported 1200 overnight with a net of 1100- output. Cardiac exam is unremarkable today pulmonary exam has rales in the lower 2/3 of lung ibrahim extremities have 2+ edema of hands and feet ring finger has a wedding ring that has been on there for 67 years there is no signs of compromise of the ring finger but it is tight 12/17: Coughing up yellow phlegm lower pelvic pain and dysuria no fevers or chills overnight. She has bibasilar rales still today which still has 1 to 2+ edema in all 4 extremities 12/18: Patient feeling somewhat fatigued and malaise still producing phlegm swelling in the hands is improved swelling in the feet seems improved as well. Crackles in the lower lung bases now 12/19: Patient not feeling back to her baseline but improvement from yesterday still short of breath still fatigued coughing up copious amounts of yellow and greenish phlegm decreased swelling in her hands notable 12/20: Marginal improvement of general energy level and breathing. On oxygen at 3 L, her baseline. Edema improving. She does have good response to diuretics as evidenced by output and her PureWick. 12/21: Feels about the same, improved edema but persistent fatigue and dyspnea with exertion. Sputum was obtained, a green dixon expectoration. No growth on culture. 12/22: She was started on prednisone yesterday due to expiratory bronchospasm and coughing for possible reactive airways component. She was feel better today. She did reasonably well physical therapy. She was intermittent cough of dixon phlegm. A CT without contrast and leg ultrasounds were obtained to both evaluate lungs and rule out thromboembolism. She was history of contrast allergy so a CTA was deferred. Review of systems: No fever or chills headache diplopia No difficulty swallowing No chest pains or palpitations No nausea vomiting or diarrhea No urinary discomfort Physical exam: Very pleasant elderly female morbidly obese HEENT unremarkable Heart sounds distant no murmurs appreciated Lungs with rales in the bases bilaterally Abdomen nontender nondistended Extremities 1 + edema x4 Alert and oriented neurologic nonfocal For objective findings please see the bottom of the note Assessment and plan: Acute on chronic respiratory failure secondary to Acute on chronic diastolic congestive heart failure and fibrotic lung disease. Repeat echocardiogram. The left ventricular cavity is small. The ejection fraction is estimated to be 65-70%. Diastolic parameters suggest a relaxation abnormality of the left ventricle, consistent with probable normal filling pressures. There is no hemodynamically significant valvular aortic stenosis. There is mild to moderate mitral annular calcification. The mitral valve mean gradient is 3.3 mmHg. Comparison is made with the echocardiogram of 01/26/2024, no significant change. Continue Intravenous diuresis Monitor daily basic metabolic profile Significant bilateral pulmonary edema data symptomatic Coronary artery disease with history of non STEMI and cardiac arrest. Monitor serial cardiac enzymes, normal at this point. Continue all core measures Hypertension. Continue routine medication. Hyperlipidemia. Continue statin therapy. GERD. Continue PPI. 35 minutes were involved in the management of this care of this patient including [id number] evaluation physical examination review of records objective laboratory and imaging findings and previous medical records Discharge Providers Provider Date of admission: 12/16/24 15:47 Discharge Date: 12/23/24 Primary care physician: Zoe Bass PA-C Consults: 12/15/24 20:36 Consult to Pastoral Services Routine Comment: per pt request 12/19/24 12:45 Consult to Physical Therapy Evaluate & Treat Comment: Physician Instructions: Evaluate and Treat 12/19/24 12:46 Consult to Occupational Therapy Evaluate & Treat Comment: Physician Instructions: Evaluate and treat 12/20/24 11:51 Consult to Home Health Routine Comment: RN, PT, OT Reason For Exam: Pneumonia, CHF, HTN, CAD with NSTEMI Discharge provider: Lino Soni MD Exam Vital Signs (past 8 hours): - 12/23/24 09:00 Temperature 96.9 F L Pulse Rate 67 Respiratory Rate 17 Blood Pressure 139/48 L Pulse Oximetry 97 Oxygen Flow Rate 3 Oxygen Delivery Method Nasal Cannula Oxygen Flow Rate 3 Objective Labs 12/21/24 15:17 12/21/24 15:17 [facility] Medical History Chronic respiratory failure with hypoxia Skin cancer NSTEMI (non-ST elevated myocardial infarction) Diastolic heart failure Cardiac arrest Chest pain Hypertension Hyperlipidemia Coronary artery disease Left hamstring muscle strain UTI (urinary tract infection) Surgical History H/O right heart catheterization History of breast implant removal History of breast surgery History of appendectomy History of cholecystectomy History of total abdominal hysterectomy History of coronary artery stent placement Family History Father Hypertension Diabetes mellitus Mother Hypertension NC (myocardial infarction) Sister NC (myocardial infarction) S/P CABG x 4 Social History household members: children Smoking Status: Never smoker alcohol intake: never Discharge Plan Discharge Plan Patient Disposition: Home Discharge orders & Medications Prescriptions: New furosemide [Lasix] 40 mg tablet 40 mg PO BID Qty: 60 3RF prednisone 10 mg tablet 10 mg PO DIRECTED Qty: 90 0RF Rx Instructions: Two tablets daily for 10 days then 1 tablet daily as maintenance Continued aspirin 81 MG tablet,delayed release (DR/EC) 81 mg PO DAILY Qty: 0 pantoprazole 40 mg Tablet,Delayed Release (Dr/Ec) 40 mg PO DAILY escitalopram oxalate 20 mg Tablet 20 mg PO DAILY metoprolol tartrate 25 mg tablet 12.5 mg PO BID Rx Instructions: /2 tablet = 12.5 mg BID - AM & PM (DME) pen needle, diabetic [Pen Needle] 31 gauge x 3/16 needle See Rx Instructions .Route Qty: 100 0RF Rx Instructions: Once daily with insulin pen needle (DME) blood-glucose meter [Blood Glucose Monitoring] Kit See Rx Instructions .Route Qty: 1 0RF Rx Instructions: One blood glucose meter (DME) Blood Glucose Test Strip See Rx Instructions .Route Qty: 100 0RF Rx Instructions: Check glucose 3-4 times daily, in AM and before meals nitroglycerin 0.4 mg tablet, sublingual 1 tab sublingual [id number] PRN (Reason: Chest Pain) Patient Comments: take it when needed, last dose unknown rosuvastatin 40 mg tablet 40 mg PO QPM acetaminophen-codeine 300-30 mg tablet 1 tab PO BID PRN (Reason: pain) ipratropium-albuterol 0.5 mg-3 mg(2.5 mg base)/3 mL solution for nebulization 3 ml inhalation DIRECTED PRN (Reason: sob, wheezing) ranolazine 500 mg tablet extended release 12 hr 500 mg PO BID Discontinued furosemide 20 mg tablet 20 mg PO DAILY prednisone 5 mg tablet 5 mg PO DAILY Follow up/Referrals: Zoe Bass PA-C [Primary Care Provider, Medical] Visit Report/Discharge Packet Stand Alone Forms: Patient Portal/API, Stroke Signs & Symptoms Discharge Data Primary Care Provider: Zoe Bass
--- NOTE | 2024-12-23 10:54 | CM.DPC ---
Addendum entered by DONNELL Erickson 12/23/24 11:05: ADD: Edit, HH is with [facility] not [facility]. BF Original Note: DCP Discharge Home Per MD, pt is medically stable to d/c home today with HH and outpt f/u and no identified barriers to discharge. SW secure emailed [facility] pt's discharge summary (F2F and orders previously sent) and notified them of pt's d/c home today. Pt and Dtr agreeable to d/c home today and feel confident with support and HH. DONNELL Erickson
--- NOTE | 2024-12-23 11:42 | PC.NURSE ---
Discharge Notes: Patient wheeled down by YOLY Aguilera. Patient left with son-in-law and daughter in private vehicle at 11:30 AM. Patient left with everything including personal CPAP personal portable O2 unit. Daughter and YOLY Aguilera double checked room for any belongings that may have been missed, and patient Lida confirmed that she had everything that she came with.
== END 2024-12-23 11:30 | disposition home health service (06) | DRG 291 ==
LOC: ED 17:50 → AC 18:28
PROVIDERS: Hospitalist; Internal Medicine; Admitting Provider Internal Medicine; Emergency Provider Family Medicine; Family Provider Internal Medicine; PCP Physician Assistant Medical; Referring Provider Family Medicine; Visit Provider Internal Medicine
DX: I11.0 Hypertensive heart disease with heart failure (principal); I50.33 Acute on chronic diastolic (congestive) heart failure; J96.21 Acute and chronic respiratory failure with hypoxia; Z68.41 Body mass index [BMI] 40.0-44.9, adult; E85.4 Organ-limited amyloidosis; I25.10 Atherosclerotic heart disease of native coronary artery without angina pectoris; E78.5 Hyperlipidemia, unspecified; K21.9 Gastro-esophageal reflux disease without esophagitis; E66.01 Morbid (severe) obesity due to excess calories; I43 Cardiomyopathy in diseases classified elsewhere; J45.909 Unspecified asthma, uncomplicated; J84.10 Pulmonary fibrosis, unspecified; Z99.81 Dependence on supplemental oxygen; Z91.041 Radiographic dye allergy status; Z95.5 Presence of coronary angioplasty implant and graft
CPT/HCPCS: 36415; 71045; 71250; 80048; 80053; 81001; 82550; 83690; 83735; 83880; 84484; 85025; 85027; 85610; 85730; 87070; 87077; 87205; 93005; 93306; 93970; 96374; 97162; 97166; 97530; 99285; G0378; J0696; J1644; J1650; J1938; J7613

== ENCOUNTER 2025-01-17 10:28 | Inpatient (IN) | payer MEDICARE, OTHER, SELFPAY ==
[2024-12-15 20:31] VITALS: BMI 42.9
[2025-01-17] VITALS (45 sets, daily range): BP systolic 73–208; BP diastolic 42–127; PULSE 60–98; RESP 10–32; TEMP 34.2–36.6; O2SAT 95–100; BMI 43.6; BMI 42.5
--- NOTE | 2025-01-17 10:51 | EKG_ITS ---
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
--- NOTE | 2025-01-17 10:51 | DI.RAD.S_ITS ---
PROCEDURE: XR CHEST 1V INDICATIONS: Shortness of breath TECHNIQUE: One view of the chest was acquired. COMPARISON: [facility], CR, XR CHEST 1V, 12/21/2024, 14:55. FINDINGS: Surgical changes and devices: None. Lungs and pleura: Lungs are clear. Chronic interstitial prominence. No pleural effusions or pneumothorax. Mediastinum: Mediastinal contours appear normal. Heart size is enlarged. Bones and chest wall: No suspicious bony lesions. Overlying soft tissues appear unremarkable. IMPRESSION: Cardiomegaly, chronic interstitial prominence. Dictated by: Carlito Pugh M.D. on 01/17/2025 at 12:00 Approved by: Carlito Pugh M.D. on 01/17/2025 at 12:01
--- NOTE | 2025-01-17 11:01 | ED.SOB ---
HPI - SOB/Dyspnea General Chief Complaint: Shortness of Breath/Dyspnea Stated Complaint: SOB, Pain under left rib cage, legs feel tight Time Seen by Provider: 01/17/25 10:39 Source: patient Mode of arrival: Family Vehicle Limitations: no limitations History of Present Illness HPI Narrative: 89-year-old female history of COPD on 3 L, CAD with stent, hypertension dyslipidemia presents with gradual increase in shortness breath dyspnea on exertion and leg leg heaviness bilaterally over the last few weeks she does asleep and she also reports having chest pain and that it hurts to take a deep breath radiating to the back. Other than what is stated 14 point review of system is negative. Related Data Home Medications ?Medication ?Instructions ?Recorded ?Confirmed aspirin 81 mg tablet,delayed 81 mg PO DAILY ##0 05/14/17 12/15/24 release nitroglycerin 0.4 mg sublingual 1 tab sublingual [id number] PRN Chest 11/18/18 12/15/24 tablet Pain rosuvastatin 40 mg tablet 40 mg PO QPM 11/18/18 12/15/24 escitalopram oxalate 20 mg tablet 20 mg PO DAILY 03/06/21 12/15/24 pantoprazole 40 mg tablet,delayed 40 mg PO DAILY 03/06/21 12/15/24 release metoprolol tartrate 25 mg tablet 12.5 mg PO BID 01/31/24 12/15/24 acetaminophen 300 mg-codeine 30 mg 1 tab PO BID PRN pain 07/03/24 12/15/24 tablet ipratropium 0.5 mg-albuterol 3 mg 3 ml inhalation DIRECTED PRN 07/03/24 12/15/24 (2.5 mg base)/3 mL nebulization sob, wheezing soln ranolazine 500 mg tablet,extended 500 mg PO BID 07/03/24 12/15/24 release,12 hr Previous Rx's ?Medication ?Instructions ?Recorded blood sugar diagnostic (Blood #100 ea 02/01/24 Glucose Test strips) blood-glucose meter (Blood Glucose #1 ea 02/01/24 Monitoring kit) pen needle, diabetic 31 gauge x #100 ea 02/01/24 3/16 (Pen Needle) furosemide 40 mg tablet (Lasix) 40 mg PO BID #60 tabs 12/23/24 prednisone 10 mg tablet 10 mg PO DIRECTED #90 tabs 12/23/24 Allergies Allergy/AdvReac Type Severity Reaction Status Date / Time Iodinated Contrast Media Allergy Severe Unconscious Verified 12/15/24 12:43 (IODINATED CONTRAST- ORAL AND IV DYE) morphine (MORPHINE) Allergy Severe Rash Verified 12/15/24 12:43 telmisartan (TELMISARTAN) Allergy Severe Rash Verified 12/15/24 12:43 Review of Systems Review of Systems ROS Unobtainable: All systems reviewed & are unremarkable except as noted in HPI and below Patient History Medical History Chronic respiratory failure with hypoxia Skin cancer NSTEMI (non-ST elevated myocardial infarction) Diastolic heart failure Cardiac arrest Chest pain Hypertension Hyperlipidemia Coronary artery disease Left hamstring muscle strain UTI (urinary tract infection) Surgical History H/O right heart catheterization History of breast implant removal History of breast surgery History of appendectomy History of cholecystectomy History of total abdominal hysterectomy History of coronary artery stent placement Family History Father Hypertension Diabetes mellitus Mother Hypertension IA (myocardial infarction) Sister IA (myocardial infarction) S/P CABG x 4 Social History household members: children Smoking Status: Never smoker alcohol intake: never Smoking Status: Never smoker alcohol intake frequency: holidays/special occasions only Exam Narrative Exam Narrative: GENERAL: [89] year old patient appears stated age. Well-developed patient, in mild distress. HEAD: Atraumatic. Normocephalic. EYES: Pupils equal round and reactive. Extraocular motions intact. No scleral icterus. No injection or drainage. ENT: Nose without bleeding, purulent drainage. Throat without erythema, tonsillar hypertrophy or exudate. Airway patent. NECK: Trachea midline. Non tender CARDIOVASCULAR: Regular rate and rhythm without murmurs, gallops, or rubs. RESPIRATORY: Decreased breath sounds b/l GASTROINTESTINAL: Abdomen soft, non-tender, nondistended. EXTREMITIES: No edema or joint tenderness. BACK: Nontender without deformity or crepitance. No flank tenderness. NEURO: AOx3. SKIN: No rash or erythema of visible areas Initial Vital Signs Initial Vital Signs: Vital Signs Pulse Rate 70 01/17/25 10:44 Blood Pressure 137/59 L 01/17/25 10:44 Pulse Oximetry 97 01/17/25 10:44 Scores HEART Score Heart Score history: Moderately Suspicious Heart Score EKG: Non-Specific repolarization disturbance Heart Score Age: > or = 65 years old Heart Score risk factors: 1-2 risk factors Heart Score troponin: 1-3 times normal limit Heart Score Total: 6 Course Orders Ordered: ED Orders 01/17/25 10:51 XR chest 1V Stat EKG-12 Lead Stat RT Consult Eval and Treat STAT 01/17/25 11:04 CT angio chest PE protocol Stat Venous Blood Gas STAT 01/17/25 11:20 Complete Blood Count AUTO DIFF Stat Comprehensive Metabolic Panel Stat Covid-19 + FLU A/B + RSV - PCR Stat Lactate (Lactic Acid) Stat NT-proBNP (BNP-Adult 18+) Stat Prothrombin Time INR Stat Troponin I Stat 01/17/25 11:52 Venous Blood Gas Routine 01/17/25 13:35 Troponin I Stat Famotidine (Famotidine 20 Mg/2 Ml Vial) 20 mg IV NOW AFIA Last Admin: 01/17/25 11:24 Dose: 20 mg Documented By: Discontinued Medications Albuterol/Ipratropium (Albuterol/Ipratropium 3 Ml Ampul) 3 ml INH NOW ONE Stop: 01/17/25 11:05 Last Admin: 01/17/25 11:32 Dose: 3 ml Documented By: VINCE Diphenhydramine HCl (Diphenhydramine 50 Mg/Ml Vial) 50 mg IV NOW ONE Stop: 01/17/25 11:09 Last Admin: 01/17/25 11:24 Dose: 50 mg Documented By: Furosemide (Furosemide 40 Mg/4 Ml Vial) 40 mg IV NOW ONE Stop: 01/17/25 12:44 Last Admin: 01/17/25 12:59 Dose: 40 mg Documented By: Methylprednisolone (Methylprednisolone Succ 125 Mg/2 Ml Vial) 125 mg IV NOW ONE Stop: 01/17/25 11:09 Last Admin: 01/17/25 11:25 Dose: 125 mg Documented By: Vital Signs Vital signs: Vital Signs - 8 hr 01/17/25 10:44 01/17/25 10:44 01/17/25 10:53 Temperature 97.8 F Pulse Rate 70 70 Respiratory Rate 18 Blood Pressure 137/59 L 137/59 L Pulse Oximetry 97 99 Oxygen Delivery Method Nasal Cannula Oxygen Flow Rate 3 Fraction of Inspired Oxygen 01/17/25 11:00 01/17/25 11:01 01/17/25 11:01 Temperature Pulse Rate 62 62 Respiratory Rate 26 H 21 Blood Pressure 160/127 H Pulse Oximetry 99 97 Oxygen Delivery Method Nasal Cannula Oxygen Flow Rate 3 Fraction of Inspired Oxygen 01/17/25 11:28 01/17/25 11:28 01/17/25 11:30 Temperature Pulse Rate 60 Respiratory Rate 22 Blood Pressure 169/73 H 178/75 H Pulse Oximetry 99 Oxygen Delivery Method Oxygen Flow Rate Fraction of Inspired Oxygen 01/17/25 11:30 01/17/25 11:34 01/17/25 12:11 Temperature Pulse Rate 60 61 66 Respiratory Rate 21 20 23 Blood Pressure Pulse Oximetry 99 99 99 Oxygen Delivery Method Nasal Cannula Oxygen Flow Rate 3 Fraction of Inspired Oxygen 32 01/17/25 12:12 01/17/25 12:12 01/17/25 12:30 Temperature Pulse Rate 64 63 Respiratory Rate 16 18 Blood Pressure 208/84 H Pulse Oximetry 98 99 Oxygen Delivery Method Oxygen Flow Rate Fraction of Inspired Oxygen 01/17/25 12:31 01/17/25 12:31 01/17/25 13:00 Temperature Pulse Rate 63 66 Respiratory Rate 17 21 Blood Pressure 193/78 H Pulse Oximetry 99 98 Oxygen Delivery Method Oxygen Flow Rate Fraction of Inspired Oxygen 01/17/25 13:00 01/17/25 13:29 01/17/25 13:29 Temperature Pulse Rate 67 Respiratory Rate 21 Blood Pressure 193/78 H 73/47 L Pulse Oximetry 98 Oxygen Delivery Method Oxygen Flow Rate Fraction of Inspired Oxygen 01/17/25 13:30 01/17/25 13:30 01/17/25 13:40 Temperature Pulse Rate 67 Respiratory Rate 19 Blood Pressure 182/78 H 96/58 L Pulse Oximetry 97 Oxygen Delivery Method Oxygen Flow Rate Fraction of Inspired Oxygen MDM - SOB/Dyspnea Lab Data 01/17/25 11:20 01/17/25 11:20 Labs: Lab Results 01/17/25 01/17/25 01/17/25 Range/Units 11:20 11:52 13:35 WBC 9.7 (4.5-11.0) X10^3/uL RBC 4.67 (4.0-5.2) X10^6/uL Hgb 11.8 L (12.0-16.0) g/dL Hct 36.6 (36-46) % MCV 78.3 L (80-100) fL MCH 25.2 L (26-34) PG MCHC 32.2 (30-36) % RDW 19.8 H (11.6-14.8) % Plt Count 182 (150-400) X10^3/uL Neut % (Auto) 77.1 H (50-75) % Lymph % (Auto) 15.8 L (25-40) % [place] % (Auto) 5.4 (3-14) % Eos % (Auto) 1.0 L (2-4) % Baso % (Auto) 0.7 (0-2) % Neut # (Auto) 7500 H (5828-5368) /uL Lymph # (Auto) 1500 (5972-0589) /uL [place] # (Auto) 500 (0-900) /uL Eos # (Auto) 100 (0-450) /uL Baso # (Auto) 100 (0-100) /uL PT 11.6 (9.4-12.5) SECONDS INR 1.0 (0.9-1.3) VBG pH 7.41 (7.33-7.43) VBG pCO2 54.8 H (45-50) mmHg VBG pO2 27 L (35-45) mmHg VBG HCO3 34 H (24-28) mmol/L VBG Total CO2 33 H (24-29) mmol/L VBG O2 Saturation 50 L (70-75) % VBG Base Excess 7.8 H (0-4) mmol/L Sodium 134 L (137-145) mmol/L Potassium 3.6 (3.4-5.1) mmol/L Chloride 96 L (98-107) mmol/L Carbon Dioxide 30 (22-32) mmol/L BUN 19 H (7-17) mg/dL Creatinine 1.09 H (0.52-1.04) mg/dL Estimated GFR 49 L (>60) mL/min BUN/Creatinine Ratio 17.4 (6-22) Glucose 292 H (70-99) mg/dL Lactate 3.0 H 1.6 (0.7-2.1) mmol/L Calcium 8.9 (8.4-10.2) mg/dL Total Bilirubin 0.6 (0.2-1.3) mg/dL AST 22 (14-36) IU/L ALT 12 (<35) IU/L Alkaline Phosphatase 55 (38-126) U/L Troponin I 0.057 H 0.055 H (0.01-0.034) ng/mL NT-Pro-B Natriuret Pep 956 H (<450) pg/mL Total Protein 6.1 L (6.3-8.2) g/dL Albumin 3.6 (3.5-5.0) g/dL Globulin 2.5 (1.7-4.1) g/dL Albumin/Globulin Ratio 1.4 (1.0-2.8) SARS-CoV-2 (PCR) Negative (Negative) Influenza A (RT-PCR) Flu a negative (NEGATIVE) Influenza B (RT-PCR) Flu b negative (NEGATIVE) RSV (PCR) Negative (Negative) Imaging Data Chest x-ray: Radiologist's Impression: [place] [address] XRay Report Signed Patient: Lida Townsend MR#: [id number] : 1935 Acct:[id number] Age/Sex: 89 / F Date of Service: 01/17/25 Loc: ED Accession Number: [id number] Procedure: XR chest 1V Ordering Provider: Robby Deleon D.O. PROCEDURE: XR CHEST 1V INDICATIONS: Shortness of breath TECHNIQUE: One view of the chest was acquired. COMPARISON: [facility], , XR CHEST 1V, 12/21/2024, 14:55. FINDINGS: Surgical changes and devices: None. Lungs and pleura: Lungs are clear. Chronic interstitial prominence. No pleural effusions or pneumothorax. Mediastinum: Mediastinal contours appear normal. Heart size is enlarged. Bones and chest wall: No suspicious bony lesions. Overlying soft tissues appear unremarkable. IMPRESSION: Cardiomegaly, chronic interstitial prominence. CT scan - chest: Radiologist's Impression: [address] [address] [address] Scan Report Signed Patient: Lida Tonwsend MR#: [id number] : 1935 Acct:[id number] Age/Sex: 89 / F Date of Service: 01/17/25 Loc: ED Accession Number: [id number] Procedure: CT angio chest PE protocol Ordering Provider: Robby Deleon D.O. PROCEDURE: CT ANGIO CHEST PE PROTOCOL INDICATIONS: sob garcia TECHNIQUE: After the administration of intravenous contrast, 2 mm thick sections acquired from the pulmonary apices to the posterior costophrenic angles. 3-dimensional maximum intensity projection (MIP) coronal and sagittal reformats were then acquired through the thorax. For radiation dose reduction, the following was used: automated exposure control, adjustment of mA and/or kV according to patient size. COMPARISON: [facility], CT, CT ANGIO CHEST PE PROTOCOL, 10/25/2024, 16:07. [facility], CT, CT CHEST WO CON, 12/22/2024, 12:00. FINDINGS: Image quality: Diagnostic Lungs and pleura: Background reticulation particularly at the peripheries, likely mild background fibrosis. There is increased septal thickening and mild ground-glass opacities in the lower lungs. Overall low lung volumes. Bibasilar atelectasis and trace effusions. Mediastinum, heart, and esophagus: Three-vessel coronary calcifications. Cardiomegaly. Unremarkable esophagus. Prominent lymph nodes are present for example right paratracheal node measures 0.8 cm in short axis. There is no acute pulmonary embolism. Possible lipomatous hypertrophy of the interatrial septum. Chest wall and thyroid: Unremarkable thyroid. A nodular density is seen again at the right breast. Upper abdomen: No gross abnormality on these arterial phase images. Bones: There are degenerative osseous changes. No aggressive appearing abnormality. Height loss of multiple thoracic vertebral bodies similar to prior, likely remote fractures and Schmorl's nodes. IMPRESSION: No acute pulmonary embolism. Increased pulmonary septal thickening and mild ground-glass opacities. Trace effusions. Findings favored to represent edema, though differential includes infection. Mild background pulmonary parenchymal fibrotic changes. Consider continued chest surveillance imaging to monitor for progression. Prominent mediastinal lymph nodes, indeterminate possibly reactive. Three-vessel coronary calcifications and cardiomegaly. Other findings above. ECG Data Interpretation: Sinus Rhythm HR 62 AR 216 QRS [address]-t wave change Unchanged from 12/15/24 [facility] Narrative Medical decision making narrative: Vital signs, nurse triage note, medication list, previous ER visits, and all imaging studies reviewed. Chest x-ray showed cardiomegaly chronic interstitial prominence. CTA showed no acute PE. Increased pulmonary septal thickening and mild ground-glass opacity trace effusion. Findings favor to represent edema. Mild background pulmonary parenchymal fibrotic changes. Three-vessel coronary calcification cardiomegaly. EKG showed sinus rhythm incomplete right bundle branch block unchanged from 12/15/2024. Case discussed with Dr. Saini who has graciously accepted the patient for inpatient admission. Differential diagnosis COPD CHF PE NSTEMI STEMI sepsis. Discharge Plan Departure Patient Disposition: Admitted as Observation Clinical Impression: CHF (congestive heart failure) Qualifiers: Heart failure type: unspecified Heart failure chronicity: acute on chronic Qualified Code(s): I50.9 - Heart failure, unspecified COPD (chronic obstructive pulmonary disease) Qualifiers: COPD type: COPD with acute exacerbation Qualified Code(s): J44.1 - Chronic obstructive pulmonary disease with (acute) exacerbation Admit Date/Time: 01/17/25 15:16 Admit Provider: Valentin Saini V
--- NOTE | 2025-01-17 11:04 | DI.CT.S_ITS ---
PROCEDURE: CT ANGIO CHEST PE PROTOCOL INDICATIONS: sob garcia TECHNIQUE: After the administration of intravenous contrast, 2 mm thick sections acquired from the pulmonary apices to the posterior costophrenic angles. 3-dimensional maximum intensity projection (MIP) coronal and sagittal reformats were then acquired through the thorax. For radiation dose reduction, the following was used: automated exposure control, adjustment of mA and/or kV according to patient size. COMPARISON: [facility], CT, CT ANGIO CHEST PE PROTOCOL, 10/25/2024, 16:07. [facility], CT, CT CHEST WO CON, 12/22/2024, 12:00. FINDINGS: Image quality: Diagnostic Lungs and pleura: Background reticulation particularly at the peripheries, likely mild background fibrosis. There is increased septal thickening and mild ground-glass opacities in the lower lungs. Overall low lung volumes. Bibasilar atelectasis and trace effusions. Mediastinum, heart, and esophagus: Three-vessel coronary calcifications. Cardiomegaly. Unremarkable esophagus. Prominent lymph nodes are present for example right paratracheal node measures 0.8 cm in short axis. There is no acute pulmonary embolism. Possible lipomatous hypertrophy of the interatrial septum. Chest wall and thyroid: Unremarkable thyroid. A nodular density is seen again at the right breast. Upper abdomen: No gross abnormality on these arterial phase images. Bones: There are degenerative osseous changes. No aggressive appearing abnormality. Height loss of multiple thoracic vertebral bodies similar to prior, likely remote fractures and Schmorl's nodes. IMPRESSION: No acute pulmonary embolism. Increased pulmonary septal thickening and mild ground-glass opacities. Trace effusions. Findings favored to represent edema, though differential includes infection. Mild background pulmonary parenchymal fibrotic changes. Consider continued chest surveillance imaging to monitor for progression. Prominent mediastinal lymph nodes, indeterminate possibly reactive. Three-vessel coronary calcifications and cardiomegaly. Other findings above. Dictated by: Jeramy Wilcox M.D. on 01/17/2025 at 12:21 Approved by: Jeramy Wilcox M.D. on 01/17/2025 at 12:26
[2025-01-17] MEDS: diphenhydrAMINE 50 MG/ML VIAL IV (11:24)
[2025-01-17] MEDS: FAMOTIDINE 20 MG/2 ML VIAL IV (11:24)
[2025-01-17] MEDS: methylPREDNISolone succ 125 MG/2 ML VIAL IV (11:25)
[2025-01-17] MEDS: ALBUTEROL/IPRATROPIUM 3 ML AMPUL INH (11:32)
--- NOTE | 2025-01-17 11:43 | PC.NURSE ---
Pt speaking in full sentences. Appears in NAD.
[2025-01-17 11:45] LABS: Add Manual Diff / Slide Review NO; Hematocrit 36.6 % (36-46); Hemoglobin 11.8 g/dL (12.0-16.0); Lymphocytes Absolute Auto 1500 /uL (1100-4500); Mean Corpuscular HGB Conc 32.2 % (30-36); Mean Corpuscular Hemoglobin 25.2 PG (26-34); Mean Corpuscular Volume 78.3 fL (80-100); Platelet Count 182 X10^3/uL (150-400)
[2025-01-17 11:51] LABS: INR 1.0 (0.9-1.3); Prothrombin Time 11.6 SECONDS (9.4-12.5)
[2025-01-17 11:55] LABS: Base Excess VBG 7.8 mmol/L (0-4); HCO3 VBG 34 mmol/L (24-28); Oxygen Saturation VBG 50 % (70-75); PCO2 VBG 54.8 mmHg (45-50); PO2 VBG 27 mmHg (35-45); Total CO2 VBG 33 mmol/L (24-29); pH VBG 7.41 (7.33-7.43)
[2025-01-17 11:56] LABS: Lactate (Lactic Acid) 3.0 mmol/L (0.7-2.1)
[2025-01-17 11:57] LABS: Alanine Aminotransferase 12 IU/L (<35); Albumin 3.6 g/dL (3.5-5.0); Albumin Globulin Ratio 1.4 (1.0-2.8); Alkaline Phosphatase 55 U/L (38-126); Blood Urea Nitrogen 19 mg/dL (7-17); Calcium 8.9 mg/dL (8.4-10.2); Carbon Dioxide 30 mmol/L (22-32); Chloride 96 mmol/L (98-107); Estimated Glomerular Filt Rate 49 mL/min (>60); Globulin 2.5 g/dL (1.7-4.1); Glucose 292 mg/dL (70-99); HEMOLYSIS < 15 (0-50); Potassium 3.6 mmol/L (3.4-5.1); Sodium 134 mmol/L (137-145); Total Protein 6.1 g/dL (6.3-8.2)
[2025-01-17 12:08] LABS: NT-proBNP (BNP-Adult 18+) 956 pg/mL (<450); Troponin I 0.057 ng/mL (0.01-0.034)
[2025-01-17 12:27] LABS: COVID-19 CEPHEID 4-PLEX PCR Negative (Negative); Influenza A - CEPHEID Flu A NEGATIVE (NEGATIVE); Influenza B - CEPHEID Flu B NEGATIVE (NEGATIVE)
[2025-01-17] MEDS: FUROSEMIDE 40 MG/4 ML VIAL IV ×2 (12:59→19:51)
[2025-01-17 13:17] LABS: Reflexed Lactate in 2 Hours Y
[2025-01-17 13:58] LABS: Lactate 2HR (Lactic Acid Rflx) 1.6 mmol/L (0.7-2.1)
[2025-01-17 14:10] LABS: Troponin I 0.055 ng/mL (0.01-0.034)
--- NOTE | 2025-01-17 17:50 | P.HP_ITS ---
History of Present Illness History of Present Illness Date Patient Seen: 01/17/25 Chief complaint: SOB, Pain under left rib cage, legs feel tight Narrative: Chief complaint: Increased dyspnea with acute on chronic hypoxic respiratory failure secondary to COPD and diastolic congestive heart failure History of present illness: 89-year-old female with history of COPD chronically on 3 L coronary artery disease diastolic congestive heart failure. Findings in the emergency department significant for: Venous blood gas pH 7.41 pCO2 55 PO2 27 Sodium 134 potassium 3.6 BUN creatinine 191.0 Lactate 3.0 corrected to 1.6 with oxygen Troponin 0.57 Brain natriuretic peptide 956 COVID flu A/B and RSV negative CTA chest: No pulmonary embolus Lungs and pleura: Background reticulation particularly at the peripheries, likely mild background fibrosis. There is increased septal thickening and mild ground-glass opacities in the lower lungs. Overall low lung volumes. Bibasilar atelectasis and trace effusions. Past medical history: * Chronic respiratory failure with hypoxia * Skin cancer * NSTEMI (non-ST elevated myocardial infarction) status post PCI * Diastolic heart failure * Cardiac arrest * Chest pain * Hypertension * Hyperlipidemia Past surgical history: * History of breast implant removal * History of breast surgery * History of appendectomy * History of cholecystectomy * History of total abdominal hysterectomy Patient referred for admission for acute on chronic hypoxic respiratory failure with acute on chronic diastolic congestive heart failure Review of systems: No fever or chills headache diplopia No difficulty swallowing No chest pains or palpitations No nausea vomiting or diarrhea No urinary discomfort Physical exam: Very pleasant elderly female morbidly obese HEENT unremarkable Heart sounds distant no murmurs appreciated Lungs with rales in the bases bilaterally Abdomen nontender nondistended Extremities 1 + edema x4 Alert and oriented neurologic nonfocal For objective laboratory and imaging please see the bottom of the note: Assessment and plan: Acute on chronic hypoxic and hypercapnic respiratory failure with acute on chronic diastolic congestive heart failure and COPD with mild elevation brain natriuretic peptide and borderline troponin * Diuresis * Moderate corticosteroids * Levaquin * Chest physiotherapy * Mucolytic * Trend troponins * Monitor electrolytes Chronic coronary artery disease * Continue all core measures COPD with possible mild exacerbation * Low-dose Solu-Medrol and doxycycline bronchodilators Chronic medical problems: * Chronic respiratory failure with hypoxia * Skin cancer * NSTEMI (non-ST elevated myocardial infarction) status post PCI * Diastolic heart failure * Cardiac arrest * Chest pain * Hypertension * Hyperlipidemia DVT prophylaxis: * Subcutaneous heparin Disposition: * Admit to inpatient anticipate 2 days possibly 3 2 trend the patient's troponin manage acute on chronic diastolic congestive heart failure and COPD exacerbation Code status: * Full code blue 55 minutes were involved in the management of this patient including a [id number] evaluation in-person physical examination of the patient review of objective laboratory and imaging data including direct visualization of imaging discussion with emergency provider discussing with nursing treatment team review of previous medical records [facility] Medical History Chronic respiratory failure with hypoxia Skin cancer NSTEMI (non-ST elevated myocardial infarction) Diastolic heart failure Cardiac arrest Chest pain Hypertension Hyperlipidemia Coronary artery disease Left hamstring muscle strain UTI (urinary tract infection) Surgical History H/O right heart catheterization History of breast implant removal History of breast surgery History of appendectomy History of cholecystectomy History of total abdominal hysterectomy History of coronary artery stent placement Family History Father Hypertension Diabetes mellitus Mother Hypertension [place] (myocardial infarction) Sister [place] (myocardial infarction) S/P CABG x 4 Social History household members: children Smoking Status: Never smoker alcohol intake: never Meds Home Medications and Allergies Home Medications ?Medication ?Instructions ?Recorded ?Confirmed ?Type aspirin 81 mg tablet,delayed 81 mg PO DAILY ##0 12/15/24 History release nitroglycerin 0.4 mg sublingual 1 tab sublingual Q5MIN X3 PRN Chest 11/18/18 12/15/24 History tablet Pain rosuvastatin 40 mg tablet 40 mg PO QPM 11/18/18 History escitalopram oxalate 20 mg tablet 20 mg PO DAILY 03/0612/15/24 History pantoprazole 40 mg tablet,delayed 40 mg PO DAILY 03/0612/15/24 History release metoprolol tartrate 25 mg tablet 12.5 mg PO BID 12/15/24 History blood sugar diagnostic (Blood #100 ea 02/01/24 5 Rx Glucose Test strips) blood-glucose meter (Blood Glucose #1 ea 02/01/24 08/0 08/06 Rx Monitoring kit) pen needle, diabetic 31 gauge x #100 ea 02/01/2412/15 Rx /16 (Pen Needle) acetaminophen 300 mg-codeine 30 mg 1 tab PO BID PRN pa in 07/03/24 12/15/24 History tablet ipratropium 0.5 mg-albuterol 3 mg 3 ml inhalation D IRECTED PRN 07/03/24 12/15/24 History (2.5 mg base)/3 mL nebulization sob, wheezing soln ranolazine 500 mg tablet,extended 500 mg PO BID 12/15/24 History release,12 hr furosemide 40 mg tablet (Lasix) 40 mg PO BID #60 tabs 12/23/24 Rx prednisone 10 mg tablet 10 mg PO DIRECTED #90 tab s 12/23/24 Rx Allergies Allergy/AdvReac Type Severity Reaction Status Date / Time Iodinated Contrast Media Allergy Severe Unconscious Verified 12/15/24 12:43 (IODINATED CONTRAST- ORAL AND IV DYE) morphine (MORPHINE) Allergy Severe Rash Verified 12/15/24 12:43 telmisartan (TELMISARTAN) Allergy Severe Rash Verified 12/15/24 12:43 Exam Vital Signs (past 8 hours): - 01/17/25 10:44 01/17/25 10:44 01/17/25 10:53 Temperature 97.8 F Pulse Rate 70 70 Respiratory Rate 18 Blood Pressure 137/59 L 137/59 L Pulse Oximetry 97 99 Oxygen Delivery Method Nasal Cannula Oxygen Flow Rate 3 Fraction of Inspired Oxygen 01/17/25 11:00 01/17/25 11:01 01/17/25 11:01 Temperature Pulse Rate 62 62 Respiratory Rate 26 H 21 Blood Pressure 160/127 H Pulse Oximetry 99 97 Oxygen Delivery Method Nasal Cannula Oxygen Flow Rate 3 Fraction of Inspired Oxygen 01/17/25 11:28 01/17/25 11:28 01/17/25 11:30 Temperature Pulse Rate 60 Respiratory Rate 22 Blood Pressure 169/73 H 178/75 H Pulse Oximetry 99 Oxygen Delivery Method Oxygen Flow Rate Fraction of Inspired Oxygen 01/17/25 11:30 01/17/25 11:34 01/17/25 12:11 Temperature Pulse Rate 60 61 66 Respiratory Rate 21 20 23 Blood Pressure Pulse Oximetry 99 99 99 Oxygen Delivery Method Nasal Cannula Oxygen Flow Rate 3 Fraction of Inspired Oxygen 32 01/17/25 12:12 01/17/25 12:12 01/17/25 12:30 Temperature Pulse Rate 64 63 Respiratory Rate 16 18 Blood Pressure 208/84 H Pulse Oximetry 98 99 Oxygen Delivery Method Oxygen Flow Rate Fraction of Inspired Oxygen 01/17/25 12:31 01/17/25 12:31 01/17/25 13:00 Temperature Pulse Rate 63 66 Respiratory Rate 17 21 Blood Pressure 193/78 H Pulse Oximetry 99 98 Oxygen Delivery Method Oxygen Flow Rate Fraction of Inspired Oxygen 01/17/25 13:00 01/17/25 13:29 01/17/25 13:29 Temperature Pulse Rate 67 Respiratory Rate 21 Blood Pressure 193/78 H 73/47 L Pulse Oximetry 98 Oxygen Delivery Method Oxygen Flow Rate Fraction of Inspired Oxygen 01/17/25 13:30 01/17/25 13:30 01/17/25 13:40 Temperature Pulse Rate 67 Respiratory Rate 19 Blood Pressure 182/78 H 96/58 L Pulse Oximetry 97 Oxygen Delivery Method Oxygen Flow Rate Fraction of Inspired Oxygen 01/17/25 14:26 01/17/25 14:26 01/17/25 14:28 Temperature Pulse Rate 68 Respiratory Rate 28 H Blood Pressure 108/68 115/74 Pulse Oximetry 97 Oxygen Delivery Method Oxygen Flow Rate Fraction of Inspired Oxygen 01/17/25 14:28 01/17/25 14:30 01/17/25 14:30 Temperature Pulse Rate 79 Respiratory Rate 29 H Blood Pressure 127/75 169/72 H Pulse Oximetry 100 Oxygen Delivery Method Nasal Cannula Oxygen Flow Rate 3 Fraction of Inspired Oxygen 01/17/25 14:30 01/17/25 14:30 01/17/25 14:36 Temperature Pulse Rate 80 73 Respiratory Rate 22 32 H Blood Pressure 162/100 H Pulse Oximetry 100 97 Oxygen Delivery Method Oxygen Flow Rate Fraction of Inspired Oxygen 01/17/25 14:36 01/17/25 14:38 01/17/25 14:38 Temperature Pulse Rate 89 72 Respiratory Rate 10 L 24 Blood Pressure 147/77 H Pulse Oximetry 96 99 Oxygen Delivery Method Oxygen Flow Rate Fraction of Inspired Oxygen 01/17/25 14:40 01/17/25 14:40 01/17/25 14:42 Temperature Pulse Rate 71 Respiratory Rate 22 Blood Pressure 125/61 130/75 Pulse Oximetry 99 Oxygen Delivery Method Oxygen Flow Rate Fraction of Inspired Oxygen 01/17/25 14:42 01/17/25 14:44 01/17/25 14:44 Temperature Pulse Rate 92 H 72 Respiratory Rate 15 13 Blood Pressure 166/84 H Pulse Oximetry 100 99 Oxygen Delivery Method Oxygen Flow Rate Fraction of Inspired Oxygen 01/17/25 14:46 01/17/25 14:46 01/17/25 14:48 Temperature Pulse Rate 71 Respiratory Rate 16 Blood Pressure 168/88 H 156/95 H Pulse Oximetry 99 Oxygen Delivery Method Oxygen Flow Rate Fraction of Inspired Oxygen 01/17/25 14:48 01/17/25 14:49 01/17/25 14:49 Temperature 93.6 F L Pulse Rate 72 91 H Respiratory Rate 30 H 15 Blood Pressure 163/89 H Pulse Oximetry 99 100 Oxygen Delivery Method Oxygen Flow Rate Fraction of Inspired Oxygen 01/17/25 14:50 01/17/25 14:50 01/17/25 14:52 Temperature 93.6 F L Pulse Rate 72 98 H Respiratory Rate 25 H Blood Pressure 169/87 H Pulse Oximetry 98 100 Oxygen Delivery Method Oxygen Flow Rate Fraction of Inspired Oxygen 01/17/25 14:52 01/17/25 14:54 01/17/25 14:54 Temperature 93.7 F L Pulse Rate 91 H Respiratory Rate 15 Blood Pressure 147/79 H 153/82 H Pulse Oximetry 100 Oxygen Delivery Method Oxygen Flow Rate Fraction of Inspired Oxygen 01/17/25 14:56 01/17/25 14:56 01/17/25 14:58 Temperature 93.9 F L 93.9 F L Pulse Rate 90 88 Respiratory Rate 15 15 Blood Pressure 159/89 H Pulse Oximetry 100 100 Oxygen Delivery Method Oxygen Flow Rate Fraction of Inspired Oxygen 01/17/25 14:58 01/17/25 15:00 01/17/25 15:00 Temperature 93.9 F L Pulse Rate 90 Respiratory Rate 15 Blood Pressure 165/84 H 165/81 H Pulse Oximetry 100 Oxygen Delivery Method Oxygen Flow Rate Fraction of Inspired Oxygen 01/17/25 15:00 01/17/25 15:00 01/17/25 15:03 Temperature Pulse Rate 72 73 Respiratory Rate 16 16 Blood Pressure 165/81 H Pulse Oximetry 98 98 Oxygen Delivery Method Oxygen Flow Rate Fraction of Inspired Oxygen 01/17/25 15:03 01/17/25 15:04 01/17/25 15:04 Temperature Pulse Rate 73 Respiratory Rate 17 Blood Pressure 159/76 H 172/79 H Pulse Oximetry 98 Oxygen Delivery Method Oxygen Flow Rate Fraction of Inspired Oxygen 01/17/25 15:06 01/17/25 15:06 01/17/25 15:08 Temperature Pulse Rate 72 Respiratory Rate 19 Blood Pressure 154/84 H 156/81 H Pulse Oximetry 98 Oxygen Delivery Method Oxygen Flow Rate Fraction of Inspired Oxygen 01/17/25 15:08 01/17/25 15:10 01/17/25 15:10 Temperature 93.9 F L 93.9 F L Pulse Rate 89 88 Respiratory Rate 15 15 Blood Pressure 146/78 H Pulse Oximetry 100 100 Oxygen Delivery Method Nasal Cannula Oxygen Flow Rate 3 Fraction of Inspired Oxygen 01/17/25 15:12 01/17/25 15:12 01/17/25 15:14 Temperature Pulse Rate 73 Respiratory Rate 18 Blood Pressure 148/80 H 148/80 H Pulse Oximetry 99 Oxygen Delivery Method Oxygen Flow Rate Fraction of Inspired Oxygen 01/17/25 15:14 01/17/25 15:16 01/17/25 15:16 Temperature 93.9 F L Pulse Rate 87 74 Respiratory Rate 15 14 Blood Pressure 147/80 H Pulse Oximetry 100 98 Oxygen Delivery Method Oxygen Flow Rate Fraction of Inspired Oxygen 01/17/25 15:18 01/17/25 15:18 01/17/25 15:20 Temperature Pulse Rate 74 74 Respiratory Rate 13 14 Blood Pressure 145/75 H Pulse Oximetry 98 99 Oxygen Delivery Method Oxygen Flow Rate Fraction of Inspired Oxygen 01/17/25 15:20 01/17/25 15:22 01/17/25 15:22 Temperature 93.9 F L Pulse Rate 87 Respiratory Rate 15 Blood Pressure 134/75 129/76 Pulse Oximetry 100 Oxygen Delivery Method Oxygen Flow Rate Fraction of Inspired Oxygen Fraction of Inspired Oxygen 32 SaO2/FiO2 Ratio 309 Oxygen Delivery Method Nasal Cannula Oxygen Flow Rate 3 Objective Labs 01/17/25 11:20 01/17/25 11:20 Labs: Laboratory Results - last 24 hr 01/17/25 01/17/25 01/17/25 11:20 11:52 13:35 WBC 9.7 RBC 4.67 Hgb 11.8 L Hct 36.6 MCV 78.3 L MCH 25.2 L MCHC 32.2 RDW 19.8 H Plt Count 182 Neut % (Auto) 77.1 H Lymph % (Auto) 15.8 L [place] % (Auto) 5.4 Eos % (Auto) 1.0 L Baso % (Auto) 0.7 Neut # (Auto) 7500 H Lymph # (Auto) 1500 [place] # (Auto) 500 Eos # (Auto) 100 Baso # (Auto) 100 PT 11.6 INR 1.0 VBG pH 7.41 VBG pCO2 54.8 H VBG pO2 27 L VBG HCO3 34 H VBG Total CO2 33 H VBG O2 Saturation 50 L VBG Base Excess 7.8 H Sodium 134 L Potassium 3.6 Chloride 96 L Carbon Dioxide 30 BUN 19 H Creatinine 1.09 H Estimated GFR 49 L BUN/Creatinine Ratio 17.4 Glucose 292 H Lactate 3.0 H 1.6 Calcium 8.9 Total Bilirubin 0.6 AST 22 ALT 12 Alkaline Phosphatase 55 Troponin I 0.057 H 0.055 H NT-Pro-B Natriuret Pep 956 H Total Protein 6.1 L Albumin 3.6 Globulin 2.5 Albumin/Globulin Ratio 1.4 SARS-CoV-2 (PCR) Negative Influenza A (RT-PCR) Flu a negative Influenza B (RT-PCR) Flu b negative RSV (PCR) Negative Assessment & Plan Assessment and plan (1) Interstitial lung disease: Status: Acute Time-Based Coding :: [TOTAL MINUTES] spent with patient and on the chart (including review of chart, obtaining history, exam, reviewing outside data, placing orders, documenting exam and treatment plan, and counseling patient) on [DATE].
[2025-01-17] MEDS: CODEINE/ACETAMINOPHEN 30/300 TABLET 1 TAB PO (19:59)
[2025-01-17] MEDS: METOPROLOL IR 25 MG TABLET 12.5 MG PO (21:31)
[2025-01-17] MEDS: DOCUSATE 100 MG CAPSULE PO (21:31)
[2025-01-17] MEDS: ATORVASTATIN 20 MG TABLET 80 MG PO (21:31)
[2025-01-17] MEDS: RANOLAZINE 500 MG TAB.ER.12H PO (21:31)
[2025-01-17] MEDS: HEPARIN 5,000 UNIT/ML VIAL 5000 UNIT SUBCUT (21:31)
[2025-01-17] MEDS: methylPREDNISolone succ 40 MG/ML VIAL IV (21:32)
[2025-01-18 00:50] VITALS: O2SAT 97
[2025-01-18 03:19] VITALS: BP 151/57; PULSE 72; RESP 20; TEMP 36.7; O2SAT 96
[2025-01-18] MEDS: FUROSEMIDE 40 MG/4 ML VIAL IV ×3 (06:07→19:01)
[2025-01-18] MEDS: methylPREDNISolone succ 40 MG/ML VIAL IV (06:07)
[2025-01-18] MEDS: PANTOPRAZOLE DR 40 MG TABLET PO (06:07)
[2025-01-18 06:39] LABS: Blood Urea Nitrogen 26 mg/dL (7-17); Calcium 8.8 mg/dL (8.4-10.2); Carbon Dioxide 30 mmol/L (22-32); Chloride 94 mmol/L (98-107); Estimated Glomerular Filt Rate 48 mL/min (>60); Glucose 376 mg/dL (70-99); HEMOLYSIS < 15 (0-50); Potassium 3.6 mmol/L (3.4-5.1); Sodium 132 mmol/L (137-145)
[2025-01-18 08:25] VITALS: BP 131/54; PULSE 77; RESP 16; TEMP 36.1; O2SAT 97
--- NOTE | 2025-01-18 08:49 | P.PN_ITS ---
Subjective Subjective Date Patient Seen: 01/18/25 Interval history: Chief complaint: Increased dyspnea with acute on chronic hypoxic respiratory failure secondary to COPD and diastolic congestive heart failure History of present illness: 89-year-old female with history of COPD chronically on 3 L, coronary artery disease diastolic congestive heart failure. Comes in with progressive shortness for breath for the past 3 days and nonproductive cough feeling weak and fatigued with diminished appetite Findings in the emergency department significant for: Venous blood gas pH 7.41 pCO2 55 PO2 27 Sodium 134 potassium 3.6 BUN creatinine 191.0 Lactate 3.0 corrected to 1.6 with oxygen Troponin 0.57 Brain natriuretic peptide 956 COVID flu A/B and RSV negative CTA chest: No pulmonary embolus Lungs and pleura: Background reticulation particularly at the peripheries, likely mild background fibrosis. There is increased septal thickening and mild ground-glass opacities in the lower lungs. Overall low lung volumes. Bibasilar atelectasis and trace effusions. Hospital course: 01/18: Feeling ?sick and fatigued? and coughing incessantly brisk diuresis. Review of systems: No fever or chills headache diplopia No difficulty swallowing No chest pains or palpitations No nausea vomiting or diarrhea No urinary discomfort Physical exam: Very pleasant elderly female morbidly obese HEENT unremarkable Heart sounds distant no murmurs appreciated Lungs with rales in the bases bilaterally Abdomen nontender nondistended Extremities 1 + edema x4 Alert and oriented neurologic nonfocal For objective laboratory and imaging please see the bottom of the note: Assessment and plan: Bronchiectasis with Acute on chronic hypoxic and hypercapnic respiratory failure with acute on chronic diastolic congestive heart failure and COPD with mild elevation brain natriuretic peptide and borderline troponin * Diuresis initially we will deescalate * Moderate corticosteroids also deescalate * Levaquin monotherapy to begin with, additional ceftazidime for dual anti pseudomonal coverage in bronchiectasis * Chest physiotherapy * Mucolytic * Trend troponins * Monitor electrolytes Chronic coronary artery disease * Continue all core measures COPD with possible mild exacerbation and bronchiectasis * Low-dose Solu-Medrol and Levaquin ceftazidime and bronchodilators Chronic medical problems: * Chronic respiratory failure with hypoxia * Skin cancer * NSTEMI (non-ST elevated myocardial infarction) status post PCI * Diastolic heart failure * Cardiac arrest * Chest pain * Hypertension * Hyperlipidemia DVT prophylaxis: Subcutaneous heparin Disposition: * Admit to inpatient anticipate 2 days possibly 3), (bronchiectasis is often refractory) acute on chronic diastolic congestive heart failure and COPD exacerbation Code status: Full code blue Time based billin minutes were involved in the management of this patient including a [id number] evaluation in-person physical examination of the patient review of objective laboratory and imaging data including direct visualization of imaging discussing with nursing treatment team review of previous medical records Exam Vital Signs (past 8 hours): - 01/18/25 00:50 01/18/25 03:19 Temperature 98.0 F Pulse Rate 72 Respiratory Rate 20 Blood Pressure 151/57 H Pulse Oximetry 97 96 Oxygen Delivery Method Nasal Cannula Oxygen Flow Rate 3 3 Fraction of Inspired Oxygen 32 Fraction of Inspired Oxygen 32 SaO2/FiO2 Ratio 303 Oxygen Delivery Method Nasal Cannula Oxygen Flow Rate 3 Objective Labs 01/17/25 11:20 01/18/25 06:21 Labs: Laboratory Results - last 24 hr 01/17/25 01/17/25 01/17/25 11:20 11:52 13:35 WBC 9.7 RBC 4.67 Hgb 11.8 L Hct 36.6 MCV 78.3 L MCH 25.2 L MCHC 32.2 RDW 19.8 H Plt Count 182 Neut % (Auto) 77.1 H Lymph % (Auto) 15.8 L [place] % (Auto) 5.4 Eos % (Auto) 1.0 L Baso % (Auto) 0.7 Neut # (Auto) 7500 H Lymph # (Auto) 1500 [place] # (Auto) 500 Eos # (Auto) 100 Baso # (Auto) 100 PT 11.6 INR 1.0 VBG pH 7.41 VBG pCO2 54.8 H VBG pO2 27 L VBG HCO3 34 H VBG Total CO2 33 H VBG O2 Saturation 50 L VBG Base Excess 7.8 H Sodium 134 L Potassium 3.6 Chloride 96 L Carbon Dioxide 30 BUN 19 H Creatinine 1.09 H Estimated GFR 49 L BUN/Creatinine Ratio 17.4 Glucose 292 H Lactate 3.0 H 1.6 Calcium 8.9 Total Bilirubin 0.6 AST 22 ALT 12 Alkaline Phosphatase 55 Troponin I 0.057 H 0.055 H NT-Pro-B Natriuret Pep 956 H Total Protein 6.1 L Albumin 3.6 Globulin 2.5 Albumin/Globulin Ratio 1.4 SARS-CoV-2 (PCR) Negative Influenza A (RT-PCR) Flu a negative Influenza B (RT-PCR) Flu b negative RSV (PCR) Negative 01/18/25 06:21 WBC RBC Hgb Hct MCV MCH MCHC RDW Plt Count Neut % (Auto) Lymph % (Auto) [place] % (Auto) Eos % (Auto) Baso % (Auto) Neut # (Auto) Lymph # (Auto) [place] # (Auto) Eos # (Auto) Baso # (Auto) PT INR VBG pH VBG pCO2 VBG pO2 VBG HCO3 VBG Total CO2 VBG O2 Saturation VBG Base Excess Sodium 132 L Potassium 3.6 Chloride 94 L Carbon Dioxide 30 BUN 26 H Creatinine 1.11 H Estimated GFR 48 L BUN/Creatinine Ratio 23.4 H Glucose 376 H Lactate Calcium 8.8 Total Bilirubin AST ALT Alkaline Phosphatase Troponin I NT-Pro-B Natriuret Pep Total Protein Albumin Globulin Albumin/Globulin Ratio SARS-CoV-2 (PCR) Influenza A (RT-PCR) Influenza B (RT-PCR) RSV (PCR) PFSH Medical History Chronic respiratory failure with hypoxia Skin cancer NSTEMI (non-ST elevated myocardial infarction) Diastolic heart failure Cardiac arrest Chest pain Hypertension Hyperlipidemia Coronary artery disease Left hamstring muscle strain UTI (urinary tract infection) Surgical History H/O right heart catheterization History of breast implant removal History of breast surgery History of appendectomy History of cholecystectomy History of total abdominal hysterectomy History of coronary artery stent placement Family History Father Hypertension Diabetes mellitus Mother Hypertension [place] (myocardial infarction) Sister [place] (myocardial infarction) S/P CABG x 4 Social History household members: children Smoking Status: Never smoker alcohol intake: never Assessment & Plan Time-Based Coding :: [TOTAL MINUTES] spent with patient and on the chart (including review of chart, obtaining history, exam, reviewing outside data, placing orders, documenting exam and treatment plan, and counseling patient) on [DATE]. Quality VTE Deep Vein Thrombosis/Pulmonary Embolism Present on Admission: No
[2025-01-18] MEDS: ACETAMINOPHEN 325 MG TABLET 650 MG PO (10:08)
[2025-01-18] MEDS: HEPARIN 5,000 UNIT/ML VIAL 5000 UNIT SUBCUT ×2 (10:08→21:09)
[2025-01-18] MEDS: ASPIRIN EC 81 MG TABLET PO (10:08)
[2025-01-18] MEDS: ESCITALOPRAM 10 MG TABLET 20 MG PO (10:10)
[2025-01-18] MEDS: RANOLAZINE 500 MG TAB.ER.12H PO ×2 (10:10→21:09)
[2025-01-18] MEDS: METOPROLOL IR 25 MG TABLET 12.5 MG PO ×2 (10:18→21:09)
[2025-01-18] MEDS: guaiFENesin Solution 100 MG/5 ML UDC PO (10:21)
[2025-01-18 12:00] VITALS: BP 146/55; PULSE 83; RESP 15; TEMP 36.4; O2SAT 97
[2025-01-18 12:39] LABS: Glucose 598 mg/dL (70-99)
[2025-01-18] MEDS: INSULIN LISPRO 100 UNIT/ML 3ML VIAL 15 UNIT SUBCUT (12:54)
[2025-01-18] MEDS: INSULIN LISPRO 100 UNIT/ML 3ML VIAL 20 UNIT SUBCUT (14:13)
--- NOTE | 2025-01-18 15:15 | CM.DANOTE ---
Initial DCP Assessment Note Patient is an 89 yo female, lives in [place] with family. INS: MCR and LIFE PCP is Zoe Bass. was reviewed. Per MD, pt with respiratory failure, CHF, COPD exac with acute resp failure. Patient lives in a mobile home in [place] with her adult son and is mostly independent with ADLs at baseline. Pt typically uses a 4WW for ambulation and has home O2 2-3L at baseline. Pt no longer drives and either her son or granddtr typically drive. Pt's Dtr Beronica is her informal POA and lives a few minutes from pt and son. [facility] was [facility], discharged home with family and jacy SIMMONS. jacy will need new F2F, resumption orders. Plan: Anticipate discharge home w.family and resumptin of jacy SIMMONS. SW team following closely for coordination. DONNELL Cueto Discharge Planning/Care Management CM Discharge Assessment Start: 01/17/25 17:54 Freq: Status: Active Protocol: Document 01/18/25 15:06 DENI (Rec: 01/18/25 15:15 DENI [id number]) Discharge Planning Assessment Assigned Discharge [facility]NELL [facility] Receptionist Provider Zoe Bass Insurance Comment MCR/ for Life DPOA/Assigned Beronica Lam, daughter Designee Name Contact Information [phone] Advance Directives? Yes Advance Directives No on File History Provided By Patient,Family Member,Medical Record Prior Living House Arrangements Household Members children Type of Relies on Others transporation used prior to admit Independent with ADL Yes 's Is patient alert and Yes oriented? Needs Assistance Meal Prep,Home Chores / Shopping With Comment Needs assist from family for IADLs uses FWW Comment CPAP , home O2 2-3 L at baseline Patient/Family Home with Home Health Preference Comment Patient lives with family, good support system. Discharge Plan Home Transportation Family local and able to transport at d/c. Arrangement Referrals Initiated Home Health Additional Comment Resumption orders needed for jacy SIMMONS
[2025-01-18 15:42] LABS: Glucose 454 mg/dL (70-99)
[2025-01-18 15:49] VITALS: BP 128/48; PULSE 73; RESP 16; TEMP 36.1; O2SAT 98
[2025-01-18] MEDS: INSULIN GLARGINE 100 UNIT/ML 3ML PEN 10 UNIT SUBCUT (15:50)
[2025-01-18] MEDS: INSULIN LISPRO 100 UNIT/ML 3ML VIAL SUBCUT ×2 (16:53→21:13)
[2025-01-18] MEDS: ONDANSETRON 4 MG/2 ML INJ IV (16:59)
[2025-01-18 20:00] VITALS: BP 110/59; PULSE 74; RESP 20; TEMP 36; O2SAT 97
--- NOTE | 2025-01-18 20:18 | PC.NURSE ---
Late entry: This RN called down to the pharmacy at approximately 10AM asking where the pt's ceftazidime was and if it was stored in the fridge. Pharmacy, Mustapha, stated that he would mix the medication and send it up. Medication arrived at approximately 1025 and this RN proceeded to immediately scan the medication, confirm the pt's medication rights. Then at approximately 1030 a second bag of the same medication came up for the pt. At approximately 1030, I sent the second bag down to the pharmacy with a note saying duplicate and this when YOLY Avery came over to the [facility] asking if I had seen an abx from pharmacy for her pt. I told YOLY Avery that I had not but that pharmacy had sent up a second bag of ceftazidime for my pt and this is when YOLY Avery stated that she was looking for a similar abx that started with cef from pharmacy. I immediately stopped my pt's IV abx, pharmacy was called and since Mustapha could not confirm if the current labeled bag of ceftazidime was for my pt with the correct abx in the bag or if it was for YOLY Avery pt. I took the first bag of ceftazidime was stopped, emptied, and pt's IV was flushed, monitored for any adverse reactions. The pharmacy sent up a new bag of ceftazidime, medication was scanned, pt's rights for medication were followed and pt received full prescribed dose of ceftazidime.?
[2025-01-18] MEDS: ATORVASTATIN 20 MG TABLET 80 MG PO (21:08)
[2025-01-18] MEDS: SODIUM CHLORIDE 0.9% FLUSH 10 ML IV (21:10)
[2025-01-19] VITALS (12 sets, daily range): BP systolic 106–197; BP diastolic 46–86; PULSE 64–74; RESP 16–19; TEMP 35.5–36.6; O2SAT 94–99
[2025-01-19] MEDS: FUROSEMIDE 40 MG/4 ML VIAL IV (04:01)
[2025-01-19] MEDS: PANTOPRAZOLE DR 40 MG TABLET PO (05:24)
[2025-01-19] MEDS: methylPREDNISolone succ 40 MG/ML VIAL 20 MG IV ×2 (05:24→18:04)
[2025-01-19 07:11] LABS: Blood Urea Nitrogen 35 mg/dL (7-17); Calcium 8.7 mg/dL (8.4-10.2); Carbon Dioxide 32 mmol/L (22-32); Chloride 92 mmol/L (98-107); Estimated Glomerular Filt Rate 40 mL/min (>60); Glucose 193 mg/dL (70-99); HEMOLYSIS < 15 (0-50); Potassium 3.3 mmol/L (3.4-5.1); Sodium 132 mmol/L (137-145)
[2025-01-19] MEDS: METOPROLOL IR 25 MG TABLET 12.5 MG PO ×2 (08:58→20:30)
[2025-01-19] MEDS: DOCUSATE 100 MG CAPSULE PO ×2 (08:58→20:36)
[2025-01-19] MEDS: RANOLAZINE 500 MG TAB.ER.12H PO ×2 (08:58→20:36)
[2025-01-19] MEDS: ASPIRIN EC 81 MG TABLET PO (08:58)
[2025-01-19] MEDS: ESCITALOPRAM 10 MG TABLET 20 MG PO (08:59)
[2025-01-19] MEDS: INSULIN LISPRO 100 UNIT/ML 3ML VIAL SUBCUT ×4 (08:59→20:41)
[2025-01-19] MEDS: HEPARIN 5,000 UNIT/ML VIAL 5000 UNIT SUBCUT ×2 (08:59→20:36)
[2025-01-19] MEDS: SODIUM CHLORIDE 0.9% FLUSH 10 ML IV ×2 (09:00→20:45)
--- NOTE | 2025-01-19 09:31 | P.PN_ITS ---
Subjective Subjective Date Patient Seen: 01/19/25 Time Patient Seen: 08:17 Interval history: Chief complaint: Increased dyspnea with acute on chronic hypoxic respiratory failure secondary to COPD and diastolic congestive heart failure History of present illness: 89-year-old female with history of COPD chronically on 3 L, coronary artery disease diastolic congestive heart failure. Comes in with progressive shortness for breath for the past 3 days and nonproductive cough feeling weak and fatigued with diminished appetite Findings in the emergency department significant for: Venous blood gas pH 7.41 pCO2 55 PO2 27 Sodium 134 potassium 3.6 BUN creatinine 191.0 Lactate 3.0 corrected to 1.6 with oxygen Troponin 0.57 Brain natriuretic peptide 956 COVID flu A/B and RSV negative CTA chest: No pulmonary embolus Lungs and pleura: Background reticulation particularly at the peripheries, likely mild background fibrosis. There is increased septal thickening and mild ground-glass opacities in the lower lungs. Overall low lung volumes. Bibasilar atelectasis and trace effusions. Hospital course: 01/18: Feeling ?sick and fatigued? and coughing incessantly brisk diuresis. 01/19: She states she feels better but still very weak and coughing frequently. She had severe hyperglycemia yesterday and was given a single dose of Lantus insulin with high-dose sliding scale coverage, and steroid dosing was decreased. She does not have a prior history of diabetes but has had impaired fasting glucose / prediabetes. Exam Vital Signs (past 8 hours): - 01/19/25 04:00 Temperature 97.3 F L Pulse Rate 66 Respiratory Rate 16 Blood Pressure 146/60 H Pulse Oximetry 99 Oxygen Flow Rate 2 Fraction of Inspired Oxygen 32 SaO2/FiO2 Ratio 303 Oxygen Delivery Method Nasal Cannula,CPAP Oxygen Flow Rate 2 Narrative Exam Narrative: Very pleasant elderly female morbidly obese HEENT unremarkable Heart sounds distant no murmurs appreciated Lungs with rales in the bases bilaterally, occasional rhonchi Abdomen nontender nondistended Extremities 1 + edema Alert and oriented neurologic nonfocal Objective Labs 01/17/25 11:20 01/19/25 06:53 Labs: Laboratory Results - last 24 hr 01/18/25 01/18/25 01/18/25 11:40 11:42 12:08 Sodium Potassium Chloride Carbon Dioxide BUN Creatinine Estimated GFR BUN/Creatinine Ratio Glucose 598 H* D POC Whole Bld Glucose > 500 H* > 500 H* Calcium 01/18/25 01/18/25 01/18/25 13:45 14:53 15:20 Sodium Potassium Chloride Carbon Dioxide BUN Creatinine Estimated GFR BUN/Creatinine Ratio Glucose 454 H* D POC Whole Bld Glucose > 500 H* > 500 H* Calcium 01/18/25 01/18/25 01/18/25 15:55 16:50 17:46 Sodium Potassium Chloride Carbon Dioxide BUN Creatinine Estimated GFR BUN/Creatinine Ratio Glucose POC Whole Bld Glucose 389 H D 297 H 272 H Calcium 01/18/25 01/19/25 01/19/25 20:56 06:53 07:52 Sodium 132 L Potassium 3.3 L Chloride 92 L Carbon Dioxide 32 BUN 35 H Creatinine 1.30 H Estimated GFR 40 L BUN/Creatinine Ratio 26.9 H Glucose 193 H D POC Whole Bld Glucose 229 H 228 H Calcium 8.7 PFSH Medical History Cardiac arrest Chest pain Chronic respiratory failure with hypoxia Coronary artery disease Diastolic heart failure Hyperlipidemia Hypertension Left hamstring muscle strain NSTEMI (non-ST elevated myocardial infarction) Skin cancer UTI (urinary tract infection) Surgical History H/O right heart catheterization History of appendectomy History of breast implant removal History of breast surgery History of cholecystectomy History of coronary artery stent placement History of total abdominal hysterectomy Family History Father Hypertension Diabetes mellitus Mother Hypertension [place] (myocardial infarction) Sister [place] (myocardial infarction) S/P CABG x 4 Social History household members: children Smoking Status: Never smoker alcohol intake: never Assessment & Plan Assessment & Plan narrative: Bronchiectasis with Acute on chronic hypoxic and hypercapnic respiratory failure with acute on chronic diastolic congestive heart failure and COPD with mild elevation brain natriuretic peptide and borderline troponin * Stop diuretics 01/19 and monitor * Methylprednisolone 20 mg IV every 12 hours, consider stopping if hyperglycemia persists * Levaquin and ceftazidime for dual anti pseudomonal coverage in bronchiectasis * Chest physiotherapy * Mucolytic * Monitor electrolytes, replete mild hypokalemia. Borderline diabetes with severe steroid-induced hyperglycemia * continue low-carbohydrate diet with sliding scale insulin coverage * Single dose of Lantus insulin given on 01/18, monitor off long-acting insulin at this point Chronic coronary artery disease * Continue all core measures COPD with possible mild exacerbation and bronchiectasis * Low-dose Solu-Medrol and Levaquin ceftazidime and bronchodilators Chronic medical problems: * Chronic respiratory failure with hypoxia * Skin cancer * NSTEMI (non-ST elevated myocardial infarction) status post PCI * Diastolic heart failure * Cardiac arrest * Chest pain * Hypertension * Hyperlipidemia DVT prophylaxis: Subcutaneous heparin Disposition: * Admit to inpatient anticipate 2 days possibly 3), (bronchiectasis is often refractory) acute on chronic diastolic congestive heart failure and COPD exacerbation Code status: Full code Quality VTE Deep Vein Thrombosis/Pulmonary Embolism Present on Admission: No IH PROFEE Personnel Security Assistant Document charge(s): No Charge Codes Subsequent inpatient/observation care: 22016
[2025-01-19] MEDS: POTASSIUM CHLORIDE 20 MEQ/15 ML UDC 40 MEQ PO (10:32)
--- NOTE | 2025-01-19 11:32 | CM.DPNOTE ---
DCP Cont Resumption orders for home health emailed to Carole at [facility]. Included F2F, Order, H+P. Plan: Anticipate discharge home w/family, resumption of [facility]. Family to transport. PENNIE team following for coordination of discharge plan. JW
--- NOTE | 2025-01-19 12:56 | PC.NURSE ---
Patient is alert and oriented x4. LS cta, she is in the high 90s. Patient bs 357 at lunch 12u of insulin given and patient is visiting with her daughter. She has a pure wick in and is putting out yellow urine.
[2025-01-19] MEDS: INSULIN GLARGINE 100 UNIT/ML 3ML PEN 10 UNIT SUBCUT ×2 (18:18→20:44)
[2025-01-19] MEDS: ATORVASTATIN 20 MG TABLET 80 MG PO (20:36)
--- NOTE | 2025-01-19 22:58 | PC.NURSE ---
Addendum entered by Soo Bey RN 01/20/25 07:25: 0700 Report given to celia FREDERICK. Plan of care discussed. Addendum entered by Soo Bey RN 01/19/25 23:40: 1110 Patient BP rechecked and SBP over 180. Message sent to MD. Adan regarding orders. MD to place orders for Hydralazine PRN. Original Note: 1929 Report received from celia FREDERICK. Patient AAO x's 4. Able to RODRIGUES. Nasal cannula noted infusing 3L. Patient denies numbness and tingling. Pain rated 6/10 to L rib cage. RN offered pain medication patient stated, sure, but no doyle. Medication to be administered. Family at the bedside. Call light within reach and bed in lowest position. 1999 Patient cleansed and changed and linens changed at this time. 2099 CPAP applied by family.
[2025-01-19] MEDS: hydrALAZINE 20 MG/ML VIAL 10 MG IV (23:29)
[2025-01-20] VITALS (8 sets, daily range): BP systolic 141–177; BP diastolic 54–77; PULSE 66–80; RESP 15–20; TEMP 35.9–36.6; O2SAT 95–99
[2025-01-20 05:32] LABS: Add Manual Diff / Slide Review NO; Hematocrit 35.0 % (36-46); Hemoglobin 11.5 g/dL (12.0-16.0); Lymphocytes Absolute Auto 1700 /uL (1100-4500); Mean Corpuscular HGB Conc 32.9 % (30-36); Mean Corpuscular Hemoglobin 25.1 PG (26-34); Mean Corpuscular Volume 76.2 fL (80-100); Platelet Count 207 X10^3/uL (150-400)
[2025-01-20] MEDS: PANTOPRAZOLE DR 40 MG TABLET PO (05:32)
[2025-01-20] MEDS: methylPREDNISolone succ 40 MG/ML VIAL 20 MG IV ×2 (05:32→18:33)
[2025-01-20 05:45] LABS: Blood Urea Nitrogen 39 mg/dL (7-17); Calcium 9.1 mg/dL (8.4-10.2); Carbon Dioxide 30 mmol/L (22-32); Chloride 93 mmol/L (98-107); Estimated Glomerular Filt Rate 48 mL/min (>60); Glucose 216 mg/dL (70-99); HEMOLYSIS 25 (0-50); Potassium 4.2 mmol/L (3.4-5.1); Sodium 130 mmol/L (137-145)
--- NOTE | 2025-01-20 07:56 | P.PN_ITS ---
Subjective Subjective Interval history: Hospital course: 01/18: Feeling ?sick and fatigued? and coughing incessantly brisk diuresis. 01/19: She states she feels better but still very weak and coughing frequently. She had severe hyperglycemia yesterday and was given a single dose of Lantus insulin with high-dose sliding scale coverage, and steroid dosing was decreased. She does not have a prior history of diabetes but has had impaired fasting glucose / prediabetes. S: She remained short of breath and weak. She did well for about 1 week after going home from the hospital in his had a deterioration over the last 7 days. She was mostly short of breath, and has a dry cough. She is globally weak. O: NAD, alert and oriented. Fluent speech. Lungs are clear, normal rate and effort. Heart is regular, no murmur gallop or rub. Abdomen is soft, non distended. Extremities are free of edema. A/P: 1. Bronchiectasis with Acute on chronic hypoxic and hypercapnic respiratory failure with acute on chronic diastolic congestive heart failure and COPD with mild elevation brain natriuretic peptide and borderline troponin * Stop diuretics 01/19 and monitor * Methylprednisolone 20 mg IV every 12 hours, consider stopping if hyperglycemia persists * Levaquin and ceftazidime for dual anti pseudomonal coverage in bronchiectasis * Chest physiotherapy * Mucolytic * Monitor electrolytes, replete mild hypokalemia. 2. Borderline diabetes with severe steroid-induced hyperglycemia * continue low-carbohydrate diet with sliding scale insulin coverage * Single dose of Lantus insulin given on 01/18, monitor off long-acting insulin at this point 3. Chronic coronary artery disease * Continue all core measures 4. COPD with possible mild exacerbation and bronchiectasis * Low-dose Solu-Medrol and Levaquin ceftazidime and bronchodilators 5. Chronic medical problems: * Chronic respiratory failure with hypoxia * Skin cancer * NSTEMI (non-ST elevated myocardial infarction) status post PCI * Diastolic heart failure * Cardiac arrest * Chest pain * Hypertension * Hyperlipidemia PLAN: -holding diuretics. -continuing IV steroids. -continuing antibiotics for Pseudomonas coverage. She was bronchiectasis. -PT eval 01/21 if doing clinically better. DVT prophylaxis: Subcutaneous heparin Disposition: * Admit to inpatient, anticipate 2 MN, (bronchiectasis is often refractory) acute on chronic diastolic congestive heart failure and COPD exacerbation. * Code status: Full code Exam Vital Signs (past 8 hours): - 01/20/25 00:45 01/20/25 00:45 01/20/25 04:00 Temperature 97.0 F L Pulse Rate 66 66 68 Respiratory Rate 16 Blood Pressure 167/59 H 167/59 H 177/69 H Pulse Oximetry 99 Fraction of Inspired Oxygen 32 SaO2/FiO2 Ratio 309 Oxygen Delivery Method Nasal Cannula Oxygen Flow Rate 3 Objective Labs 01/20/25 05:00 01/20/25 05:00 Labs: Laboratory Results - last 24 hr 01/19/25 01/19/25 01/19/25 07:52 11:50 16:30 WBC RBC Hgb Hct MCV MCH MCHC RDW Plt Count Neut % (Auto) Lymph % (Auto) [place] % (Auto) Eos % (Auto) Baso % (Auto) Neut # (Auto) Lymph # (Auto) [place] # (Auto) Eos # (Auto) Baso # (Auto) Sodium Potassium Chloride Carbon Dioxide BUN Creatinine Estimated GFR BUN/Creatinine Ratio Glucose POC Whole Bld Glucose 228 H 357 H D 340 H Calcium 01/19/25 01/20/25 19:52 05:00 WBC 11.2 H RBC 4.59 Hgb 11.5 L Hct 35.0 L MCV 76.2 L MCH 25.1 L MCHC 32.9 RDW 19.6 H Plt Count 207 Neut % (Auto) 77.6 H Lymph % (Auto) 15.3 L [place] % (Auto) 6.9 Eos % (Auto) 0.0 L Baso % (Auto) 0.2 Neut # (Auto) 8700 H Lymph # (Auto) 1700 [place] # (Auto) 800 Eos # (Auto) 0 Baso # (Auto) 0 Sodium 130 L Potassium 4.2 Chloride 93 L Carbon Dioxide 30 BUN 39 H Creatinine 1.12 H Estimated GFR 48 L BUN/Creatinine Ratio 34.8 H Glucose 216 H POC Whole Bld Glucose 326 H Calcium 9.1 PFSH Medical History Cardiac arrest Chest pain Chronic respiratory failure with hypoxia Coronary artery disease Diastolic heart failure Hyperlipidemia Hypertension Left hamstring muscle strain NSTEMI (non-ST elevated myocardial infarction) Skin cancer UTI (urinary tract infection) Surgical History H/O right heart catheterization History of appendectomy History of breast implant removal History of breast surgery History of cholecystectomy History of coronary artery stent placement History of total abdominal hysterectomy Family History Father Hypertension Diabetes mellitus Mother Hypertension [place] (myocardial infarction) Sister [place] (myocardial infarction) S/P CABG x 4 Social History household members: children Smoking Status: Never smoker alcohol intake: never Assessment & Plan Time-Based Coding :: [TOTAL MINUTES] spent with patient and on the chart (including review of chart, obtaining history, exam, reviewing outside data, placing orders, documenting exam and treatment plan, and counseling patient) on [DATE]. Quality VTE Deep Vein Thrombosis/Pulmonary Embolism Present on Admission: No
[2025-01-20] MEDS: INSULIN LISPRO 100 UNIT/ML 3ML VIAL SUBCUT ×6 (08:01→21:25)
[2025-01-20] MEDS: ESCITALOPRAM 10 MG TABLET 20 MG PO (08:43)
[2025-01-20] MEDS: HEPARIN 5,000 UNIT/ML VIAL 5000 UNIT SUBCUT ×2 (08:43→20:41)
[2025-01-20] MEDS: RANOLAZINE 500 MG TAB.ER.12H PO ×2 (08:44→20:40)
[2025-01-20] MEDS: ASPIRIN EC 81 MG TABLET PO (08:44)
[2025-01-20] MEDS: DOCUSATE 100 MG CAPSULE PO ×2 (08:44→20:40)
[2025-01-20] MEDS: METOPROLOL IR 25 MG TABLET 12.5 MG PO ×2 (08:44→20:40)
[2025-01-20] MEDS: CODEINE/ACETAMINOPHEN 30/300 TABLET 1 TAB PO (10:24)
[2025-01-20] MEDS: SODIUM CHLORIDE 0.9% FLUSH 10 ML IV ×2 (10:25→20:41)
--- NOTE | 2025-01-20 13:56 | PC.NURSE ---
Patient encouraged to get out of the bed and sit up for at least one meal and she has refused thus far. We will ask again to see if she wants to get up for dinner. She is using the purewick and she is able to get out of bed with one person assist. She is on 3l of oxygen per her baseline at home. Her daughter stays in her room day and night and has a courtesy tray brought for her breakfast, lunch, and dinner. Given t3 for pain and discomfort this morning. Resting comfortably. Patient has been having discomfort to her left rib area.
[2025-01-20] MEDS: ATORVASTATIN 20 MG TABLET 80 MG PO (20:40)
[2025-01-20] MEDS: FUROSEMIDE 40 MG TABLET PO (20:41)
[2025-01-20] MEDS: INSULIN GLARGINE 100 UNIT/ML 3ML PEN 12 UNIT SUBCUT (21:24)
[2025-01-21] VITALS (8 sets, daily range): BP systolic 122–192; BP diastolic 43–98; PULSE 73–88; RESP 15–18; TEMP 35.7–36.6; O2SAT 98–100
[2025-01-21] MEDS: methylPREDNISolone succ 40 MG/ML VIAL 20 MG IV ×2 (05:37→18:00)
[2025-01-21] MEDS: PANTOPRAZOLE DR 40 MG TABLET PO (05:37)
[2025-01-21] MEDS: hydrALAZINE 20 MG/ML VIAL 10 MG IV (05:45)
--- NOTE | 2025-01-21 07:17 | P.PN_ITS ---
Subjective Subjective Interval history: Hospital course: 01/18: Feeling ?sick and fatigued? and coughing incessantly brisk diuresis. 01/19: She states she feels better but still very weak and coughing frequently. She had severe hyperglycemia yesterday and was given a single dose of Lantus insulin with high-dose sliding scale coverage, and steroid dosing was decreased. She does not have a prior history of diabetes but has had impaired fasting glucose / prediabetes. 01/20: Minimal improvement, PO lasix restarted. Remains weak and dyspneic. S: She was feeling a little bit better today. In reviewing her last hospitalization she improved only after IV steroids were started. She does take chronic prednisone at 5 mg a day and is followed by Pulmonary at [facility] every [address] Goode. She gets her chronic steroids from her primary care physician. She understands that she has interstitial lung disease but has not heard of bronchiectasis before. She also does feel fluid overloaded and feels that she was Lasix. O: VS below. NAD, alert and oriented. Fluent speech. Lungs are clear, normal rate and effort. Heart is regular, no murmur gallop or rub. Abdomen is soft, non distended. Extremities are free of edema. Labs: will repeat 01/22. A/P: 1. Bronchiectasis with 2. Acute on chronic hypoxic and hypercapnic respiratory failure with 3. Acute on chronic diastolic congestive heart failure and 4. COPD with mild elevation brain natriuretic peptide and borderline troponin 5. Borderline diabetes with severe steroid-induced hyperglycemia * continue low-carbohydrate diet with sliding scale insulin coverage * Single dose of Lantus insulin given on 01/18, monitor off long-acting insulin at this point 6. Chronic coronary artery disease * Continue all core measures4. COPD with possible mild exacerbation and bronchiectasis * Low-dose Solu-Medrol and Levaquin ceftazidime and bronchodilators5. Chronic medical problems: 7. ILD. Chronic respiratory failure with hypoxia * Skin cancer * NSTEMI (non-ST elevated myocardial infarction) status post PCI * Diastolic heart failure * Cardiac arrest * Chest pain * Hypertension * Hyperlipidemia PLAN: -resume diuretics. -continuing IV steroids. -continuing antibiotics for Pseudomonas coverage. She may have bronchiectasis. -can likely simplify her antibiotics in a couple of days. -bronchodilators will be continued as well. -PT eval 01/22 if doing clinically better. DVT prophylaxis: Subcutaneous heparin Exam Vital Signs (past 8 hours): - 01/21/25 01:34 01/21/25 03:00 01/21/25 05:45 Temperature 96.9 F L Pulse Rate 76 Respiratory Rate 16 Blood Pressure 192/77 H 192/77 H Pulse Oximetry 98 98 Oxygen Delivery Method Nasal Cannula Oxygen Flow Rate 3 Fraction of Inspired Oxygen 32 01/21/25 06:15 Temperature Pulse Rate Respiratory Rate Blood Pressure 144/43 H Pulse Oximetry Oxygen Delivery Method Oxygen Flow Rate Fraction of Inspired Oxygen Fraction of Inspired Oxygen 32 SaO2/FiO2 Ratio 306 Oxygen Delivery Method Nasal Cannula Oxygen Flow Rate 3 Objective Labs 01/20/25 05:00 01/20/25 05:00 Labs: Laboratory Results - last 24 hr 01/20/25 01/20/25 01/20/25 11:48 16:45 21:24 POC Whole Bld Glucose 305 H 252 H 333 H PFSH Medical History Cardiac arrest Chest pain Chronic respiratory failure with hypoxia Coronary artery disease Diastolic heart failure Hyperlipidemia Hypertension Left hamstring muscle strain NSTEMI (non-ST elevated myocardial infarction) Skin cancer UTI (urinary tract infection) Surgical History H/O right heart catheterization History of appendectomy History of breast implant removal History of breast surgery History of cholecystectomy History of coronary artery stent placement History of total abdominal hysterectomy Family History Father Hypertension Diabetes mellitus Mother Hypertension [place] (myocardial infarction) Sister [place] (myocardial infarction) S/P CABG x 4 Social History household members: children Smoking Status: Never smoker alcohol intake: never Assessment & Plan Time-Based Coding :: [TOTAL MINUTES] spent with patient and on the chart (including review of chart, obtaining history, exam, reviewing outside data, placing orders, documenting exam and treatment plan, and counseling patient) on [DATE]. Quality VTE Deep Vein Thrombosis/Pulmonary Embolism Present on Admission: No
[2025-01-21] MEDS: INSULIN LISPRO 100 UNIT/ML 3ML VIAL SUBCUT ×7 (08:49→20:50)
[2025-01-21] MEDS: HEPARIN 5,000 UNIT/ML VIAL 5000 UNIT SUBCUT ×2 (08:49→20:48)
[2025-01-21] MEDS: RANOLAZINE 500 MG TAB.ER.12H PO ×2 (08:50→20:48)
[2025-01-21] MEDS: FUROSEMIDE 40 MG TABLET PO ×2 (08:50→20:48)
[2025-01-21] MEDS: METOPROLOL IR 25 MG TABLET 12.5 MG PO ×2 (08:50→20:49)
[2025-01-21] MEDS: DOCUSATE 100 MG CAPSULE PO ×2 (08:50→20:48)
[2025-01-21] MEDS: ESCITALOPRAM 10 MG TABLET 20 MG PO (08:51)
[2025-01-21] MEDS: SODIUM CHLORIDE 0.9% FLUSH 10 ML IV ×2 (08:51→20:51)
[2025-01-21] MEDS: ASPIRIN EC 81 MG TABLET PO (08:51)
[2025-01-21] MEDS: ALBUTEROL/IPRATROPIUM 3 ML AMPUL INH (09:08)
[2025-01-21] MEDS: CODEINE/ACETAMINOPHEN 30/300 TABLET 1 TAB PO ×2 (11:40→19:24)
--- NOTE | 2025-01-21 14:20 | PT.IIE ---
Current Diagnoses Bronchiectasis, uncomplicated (01/17/25) Interstitial pulmonary disease, unspecified (01/17/25) Surgical History (Last Reviewed 01/19/25 @ 09:32 by Valentin Saini MD) H/O right heart catheterization History of appendectomy History of breast implant removal History of breast surgery History of cholecystectomy History of coronary artery stent placement History of total abdominal hysterectomy Medical History (Last Reviewed 01/19/25 @ 09:32 by Valentin Saini MD) Cardiac arrest Chest pain Chronic respiratory failure with hypoxia Coronary artery disease Diastolic heart failure Hyperlipidemia Hypertension Left hamstring muscle strain NSTEMI (non-ST elevated myocardial infarction) Skin cancer UTI (urinary tract infection) Physical Therapy Inpatient Evaluation/Re-Eval M1 PT/OT-IP Prior Functional Status Start: 01/21/25 15:43 Freq: NEEDED Status: Active Protocol: Document 01/21/25 14:20 AB (Rec: 01/21/25 15:55 AB [id number]) Medical Review Prior Functional Status Medical History Yes Reviewed Communication able to make needs known Mobility and Gait pt stated that she was modified independent with all mobilities and ambulation using a 4WW Social History Household Members children Living Arrangements House Number of Floors ( Two Floors Floors) Number of Stairs To 4 steps has bilateral wide rails and can only hold on Enter/Railing? to one rail at a time has 1 step down from bathroom to toilet Home Environment Standard Height Toilet,Walk in Shower Home Equipment Four Wheel Walker,Bedside Commode,Shower Seat with Backrest,Hand Held Shower,Lift Recliner,Grab Bars Near Toilet,Grab Bars In Shower Additional Social pt lives with her son who assists her at home; daughter History Comment also lives a few blocks away from pt and can assist if needed pt stated that she sponge bathes and does not take showers pt has an adjustable bed and R side bed cane M2 PT-IP Current Condition Start: 01/21/25 15:43 Freq: NEEDED Status: Active Protocol: Document 01/21/25 14:20 AB (Rec: 01/21/25 15:55 AB [id number]) Physical Therapy Current Condition Current Condition Evaluation Date 01/21/25 Treatment Diagnosis CHF; difficulty in walking Onset Date 01/17/25 M3 PT-IP Subjective Start: 01/21/25 15:43 Freq: NEEDED Status: Active Protocol: Document 01/21/25 14:20 AB (Rec: 01/21/25 15:55 AB [id number]) Subjective Physical Therapy Visit Type Type Initial Evaluation Visit Start Time 14:20 Visit Stop Time 15:05 Number of CONTRACT NEGOTIATION SPECIALIST Visits 0 Physical Therapy Visit Comments Patient Comments agreeable to do PT M4 PT-IP Mobility and Gait Start: 01/21/25 15:43 Freq: NEEDED Status: Active Protocol: Document 01/21/25 14:20 AB (Rec: 01/21/25 15:55 AB [id number]) PT-Bed Mobility Assessment Supine to Sit Supine to Sit Standby Assistance,Head of Bed Elevated,Bedrails Sit to Supine Sit to Supine Standby Assistance,Head of Bed Elevated,Bedrails PT-Transfer Assessment Sit to and From Stand Sit to and from Standby Assistance,1 Person Assistance,Use of Upper Stand Extremities Equipment Transfer Assistive Gait Belt,4 Wheeled Walker Device Orthotic/Prosthetic No Devices or Brace: Comments Mobility Comments pt in bed and daughter in room. obtained PLOF and home set up. O2 sat with 2L/min O2: 98-100%. completed supine to sit HOB elevated and use of R rail SBA. able to sit on EOB SBA. pt requiring frequent rest breaks in between tasks due to (+) SOB but O2 sat stable: 96- 100% with activity MN: 77-84 sit to stand from EOB SBA and ambulated in room using 4WW SBA ~ 35 with standing rest breaks in between walking. pt sat on EOB and rested. agreed to walk again and completed another 35 ft 4WW SBA. pt refused to sit on the chair and wants to go back in bed. sit to supine SBA. positioned pt in bed. call light and table placed within reach. Gait Assessment Gait Gait Assistance Standby Assistance Required: Distance (Feet) 35 Able to Maintain Yes Weight Bearing Status During Gait Assistive Devices Assistive Device Gait Belt,4 Wheeled Walker Orthotic/Prosthetic No Devices or Brace: Gait Deviations General Gait Pattern Decreased Stride Length,Decreased Feet Clearance Factors Limiting Gait Function Factors Limiting Decreased Activity Tolerance,Decreased Strength, Gait Function Respiratory Distress PT-Balance Assessment Sitting Balance and Reactions Static Sitting Normal Balance Ability Dynamic Sitting Normal Balance Ability Standing Balance and Reactions Static Standing Good Balance Ability Dynamic Standing Fair Balance Ability Device Used 4WW M5 PT-IP Objective Assessments Start: 01/21/25 15:43 Freq: NEEDED Status: Active Protocol: Document 01/21/25 14:20 AB (Rec: 01/21/25 15:55 AB [id number]) Orientation Orientation/Cognition Level of Alertness Alert Orientation Name,Place,Situation Language Function Hard of Hearing Ability Safety Awareness Decreased Safety Awareness Memory Description Short Term Impaired Gross Range of Motion Lower Extremity ROM Assessment Within Functional Limits Strength Lower Extremity Strength Assessment Within Functional Limits Coordination Assessment Gross Coordination Gross Coordination WNL Sensation Assessment Sensation Gross Sensation WNL Muscle Tone Muscle Tone WNL Yes M6 PT-IP Treatment Start: 01/21/25 15:43 Freq: NEEDED Status: Active Protocol: Document 01/21/25 14:20 AB (Rec: 01/21/25 15:55 AB [id number]) Physical Therapy Treatment Education Education Provided Safety M7 PT-IP Assessment and Plan Start: 01/21/25 15:43 Freq: NEEDED Status: Active Protocol: Document 01/21/25 14:20 AB (Rec: 01/21/25 15:55 AB [id number]) PT Summary Assessment and Plan Potential Rehabilitation Fair Potential Status of Condition Evolving at Evaluation Summary Impairments Pain,ROM,Strength,Balance,Coordination,Sensation, Cognition,Bed Mobility,Transfers,Gait,Activity Tolerance Assessment Summary pt is an 89 y/o F who is admitted for CHF. pt requiring SBA with mobility using 4WW but has decrease activity tolerance needing increase rest breaks in between activities with (+) SOB but stable O2 sat: 96-100% with activity. pt lives with her son who can assist her if needed. pt will benefit from HHPT. Goals Bed Mobility Goal Independent Transfer Goal Independent,Four Wheeled Walker Gait Goal Independent,Four Wheel Walker Gait Distance 100 Other Goals up/down 4 steps 1 rail SBA Days to Meet Goals 10 Frequency of Treatment Frequency Of Once a Day Treatment Treatment Plan Physical Therapy Bed Mobility Training,Transfer Training,Gait Training, Treatment Plan Therapeutic Exercise,Balance Retraining,Discharge Planning,Hot or Cold Pack,Neuromuscular Re-ed, Coordination Retraining Recommendations To Nursing Amount of Assist 1 Person Assist Needed Discharge Recommendations PT Discharge Home with Assistance,Home Health Recommendations Transportation Needs Private Vehicle at Discharge - PT assist 1
[2025-01-21] MEDS: ATORVASTATIN 20 MG TABLET 80 MG PO (20:48)
[2025-01-21] MEDS: INSULIN GLARGINE 100 UNIT/ML 3ML PEN 15 UNIT SUBCUT (20:50)
[2025-01-22] VITALS (8 sets, daily range): BP systolic 124–194; BP diastolic 58–97; PULSE 60–74; RESP 16–18; TEMP 35.6–36.7; O2SAT 95–99
[2025-01-22] MEDS: PANTOPRAZOLE DR 40 MG TABLET PO (05:27)
[2025-01-22] MEDS: methylPREDNISolone succ 40 MG/ML VIAL 20 MG IV (05:27)
[2025-01-22] MEDS: hydrALAZINE 20 MG/ML VIAL 10 MG IV (05:29)
[2025-01-22] MEDS: CODEINE/ACETAMINOPHEN 30/300 TABLET 1 TAB PO (05:30)
[2025-01-22 07:52] LABS: Add Manual Diff / Slide Review NO; Hematocrit 36.2 % (36-46); Hemoglobin 11.7 g/dL (12.0-16.0); Lymphocytes Absolute Auto 1100 /uL (1100-4500); Mean Corpuscular HGB Conc 32.5 % (30-36); Mean Corpuscular Hemoglobin 24.8 PG (26-34); Mean Corpuscular Volume 76.3 fL (80-100); Platelet Count 212 X10^3/uL (150-400)
[2025-01-22 08:18] LABS: Blood Urea Nitrogen 35 mg/dL (7-17); Calcium 9.2 mg/dL (8.4-10.2); Carbon Dioxide 28 mmol/L (22-32); Chloride 94 mmol/L (98-107); Estimated Glomerular Filt Rate 55 mL/min (>60); Glucose 228 mg/dL (70-99); HEMOLYSIS < 15 (0-50); Potassium 4.2 mmol/L (3.4-5.1); Sodium 129 mmol/L (137-145)
[2025-01-22] MEDS: RANOLAZINE 500 MG TAB.ER.12H PO ×2 (08:40→20:14)
[2025-01-22] MEDS: METOPROLOL IR 25 MG TABLET 12.5 MG PO ×2 (08:40→20:15)
[2025-01-22] MEDS: ESCITALOPRAM 10 MG TABLET 20 MG PO (08:40)
[2025-01-22] MEDS: ASPIRIN EC 81 MG TABLET PO (08:40)
[2025-01-22] MEDS: FUROSEMIDE 40 MG TABLET PO ×2 (08:40→20:15)
[2025-01-22] MEDS: DOCUSATE 100 MG CAPSULE PO ×2 (08:40→20:15)
[2025-01-22] MEDS: INSULIN LISPRO 100 UNIT/ML 3ML VIAL SUBCUT ×5 (08:41→21:15)
[2025-01-22] MEDS: HEPARIN 5,000 UNIT/ML VIAL 5000 UNIT SUBCUT ×2 (08:41→20:13)
--- NOTE | 2025-01-22 10:07 | PT.IPTN ---
Current Diagnoses Bronchiectasis, uncomplicated (01/17/25) Interstitial pulmonary disease, unspecified (01/17/25) Physical Therapy Treatment Note M2 PT-IP Current Condition Start: 01/21/25 15:43 Freq: NEEDED Status: Active Protocol: Document 01/21/25 14:20 AB (Rec: 01/21/25 15:55 AB [id number]) Physical Therapy Current Condition Current Condition Evaluation Date 01/21/25 Treatment Diagnosis CHF; difficulty in walking Onset Date 01/17/25 M3 PT-IP Subjective Start: 01/21/25 15:43 Freq: NEEDED Status: Active Protocol: Document 01/22/25 10:07 AB (Rec: 01/22/25 12:26 AB [id number]) Subjective Physical Therapy Visit Type Type Treatment Note Visit Start Time 10:07 Visit Stop Time 11:00 Number of TAXATION ECONOMIST Visits 0 Physical Therapy Visit Comments Patient Comments agreeable to do PT M4 PT-IP Mobility and Gait Start: 01/21/25 15:43 Freq: NEEDED Status: Active Protocol: Document 01/22/25 10:07 AB (Rec: 01/22/25 12:26 AB [id number]) PT-Bed Mobility Assessment Supine to Sit Supine to Sit Minimal Assistance,1 Person Assistance,Head of Bed Elevated,Bedrails Sit to Supine Sit to Supine Minimal Assistance,1 Person Assistance PT-Transfer Assessment Sit to and From Stand Sit to and from Contact Guard Assistance,1 Person Assistance,Use of Stand Upper Extremities Equipment Transfer Assistive Gait Belt,4 Wheeled Walker Device Orthotic/Prosthetic No Devices or Brace: Transfers Transfer Destination Bed,Chair,Toilet Transfer Technique ambulated Transfer Ability Level of Assist Contact Guard Assistance,1 Person Assistance,Use of Upper Extremities Comments Mobility Comments pt in bed and agreeable to do PT. supine to sit min A and cues. (+) SOB but O2 sat: 98%. pt requiring frequent and increase rest breaks in between activities with (+) SOB but O2 sat stable: 96-100% with 3L/min O2 . MS: 76-82bpm. sit to stand from EOB CGA and ambulated in room using 4WW ~ 20 ft CGA. pt with standing rest breaks in between walks. sat on EOb and rested. completed up/down step stool using FWW for support CGA. pt ambulated to the chair using 4WW CGA. pt needing to be cleaned up and brief change. sit to stand from chair CGA and ambulated to the toilet using 4WW CGA. Assisted pt with hygiene care and brief change. sit to stand from the toilet CGA using grab bar. pt requested to go back to bed and ambulated to the bed using 4WW CGA. sit to supine min A with LE elevation to bed. positioned pt in bed. call light and table placed within reach. Gait Assessment Gait Gait Assistance Contact Guard Assist Required: Distance (Feet) 20 Able to Maintain Yes Weight Bearing Status During Gait Assistive Devices Assistive Device Gait Belt,4 Wheeled Walker Orthotic/Prosthetic No Devices or Brace: Gait Deviations General Gait Pattern Decreased Stride Length,Decreased Feet Clearance Factors Limiting Gait Function Factors Limiting Decreased Activity Tolerance,Decreased Strength,Poor Gait Function Balance,Poor Safety Awareness,Respiratory Distress Stair Climbing Assessment Comments Stair Climbing up/down step stool using FWW for support: pt stated Comments that she can hold on to 2 rails at home even if they are far apart. M5 PT-IP Objective Assessments Start: 01/21/25 15:43 Freq: NEEDED Status: Active Protocol: Document 01/21/25 14:20 AB (Rec: 01/21/25 15:55 AB [id number]) Orientation Orientation/Cognition Level of Alertness Alert Orientation Name,Place,Situation Language Function Hard of Hearing Ability Safety Awareness Decreased Safety Awareness Memory Description Short Term Impaired Gross Range of Motion Lower Extremity ROM Assessment Within Functional Limits Strength Lower Extremity Strength Assessment Within Functional Limits Coordination Assessment Gross Coordination Gross Coordination WNL Sensation Assessment Sensation Gross Sensation WNL Muscle Tone Muscle Tone WNL Yes M6 PT-IP Treatment Start: 01/21/25 15:43 Freq: NEEDED Status: Active Protocol: Document 01/22/25 10:07 AB (Rec: 01/22/25 12:26 [id number]) Physical Therapy Treatment Education Education Provided Safety M7 PT-IP Assessment and Plan Start: 01/21/25 15:43 Freq: NEEDED Status: Active Protocol: Document 01/22/25 10:07 AB (Rec: 01/22/25 12:26 [id number]) PT Summary Assessment and Plan Potential Rehabilitation Fair Potential Summary Impairments Pain,ROM,Strength,Balance,Coordination,Sensation,Tone, Cognition,Bed Mobility,Transfers,Gait,Activity Tolerance Progress Towards Slow Progress due to Medical Issues,Slow Progress due Goals to Activity Tolerance Assessment Summary Pt improving slowly with mobility but continues to have decrease activity tolerance needing increase and frequent rest breaks in between tasks. pt plans to go home and will have her family to assist her. Goals Bed Mobility Goal Independent Transfer Goal Independent,Four Wheeled Walker Gait Goal Independent,Four Wheel Walker Gait Distance 100 Other Goals up/down 4 steps 1 rail SBA Days to Meet Goals 10 Frequency of Treatment Frequency Of Once a Day Treatment Treatment Plan Physical Therapy Bed Mobility Training,Transfer Training,Gait Training, Treatment Plan Therapeutic Exercise,Balance Retraining,Discharge Planning,Hot or Cold Pack,Neuromuscular Re-ed, Coordination Retraining Recommendations To Nursing Amount of Assist 1 Person Assist Needed Discharge Recommendations PT Discharge Home with Assistance,Home Health Recommendations Transportation Needs Private Vehicle at Discharge - PT assist 1
[2025-01-22] MEDS: INSULIN LISPRO 100 UNIT/ML 3ML VIAL 7 UNIT SUBCUT ×2 (11:54→16:54)
--- NOTE | 2025-01-22 13:43 | CM.DPC ---
DCP Cont. Reviewed EMR and team rounds for pt's status updates. She continues to slowly improve on IV antibiotics. Monitoring for any further evolving home d/c needs.
--- NOTE | 2025-01-22 15:42 | DIET.CONS ---
Dietary Consultation Note Admission Date: 01/17/2025 15:16 Assessment: 89 y F admitted for resp failure. Dietitian screened for LOS. EMR reviewed. 75-100% recorded PO intakes. DFM reviewed for meal composition. Elevated BG 236-394 in ast 24 hours, on methylprednisolone. Lantus and humalog both titrated up today per pharmacy. Ht: 154.94 cm Wt: 102 kg BMI: 42.5 UBW: 99-105 kg per EMR over the last year Last BM: 01/17/25 (01/17/25 20:51) MNA: 11 Cirilo Score: 18 Diet: 01/17/25 Dinner Heart Healthy Diet Diet Modifications: 01/19/25 Dinner Courtesy Tray (Peds, comfort care) Diet Modifications: Nutrition Percent Meal Consumed 100% 01/21/25 18:00 Percent Meal Consumed 100% 01/21/25 13:48 Percent Meal Consumed 100% 01/20/25 18:00 Labs: RBC 4.74 X10^6/uL (4.0-5.2) 01/22/25 07:45 Hgb 11.7 g/dL (12.0-16.0) L 01/22/25 07:45 Hct 36.2 % (36-46) 01/22/25 07:45 Creatinine 0.99 mg/dL (0.52-1.04) 01/22/25 07:45 Lactate 1.6 mmol/L (0.7-2.1) 01/17/25 13:35 NT-Pro-B Natriuret Pep 956 pg/mL (<450) H 01/17/25 11:20 Monitoring/Evaluations: monitoring BG, per DFM review, meals already 30-45 g CHO, can switch to CCD as needed Electronically Signed by: Dori Barrera 01/22/25 15:42 Clinical Dietitian [address] [id number]
--- NOTE | 2025-01-22 16:29 | P.PN_ITS ---
Subjective Subjective Date Patient Seen: 01/22/25 Interval history: Chief complaint: Increased dyspnea with acute on chronic hypoxic respiratory failure secondary to COPD and diastolic congestive heart failure History of present illness: 89-year-old female with history of COPD chronically on 3 L, coronary artery disease diastolic congestive heart failure. Comes in with progressive shortness for breath for the past 3 days and nonproductive cough feeling weak and fatigued with diminished appetite Findings in the emergency department significant for: Venous blood gas pH 7.41 pCO2 55 PO2 27 Sodium 134 potassium 3.6 BUN creatinine 191.0 Lactate 3.0 corrected to 1.6 with oxygen Troponin 0.57 Brain natriuretic peptide 956 COVID flu A/B and RSV negative CTA chest: No pulmonary embolus Lungs and pleura: Background reticulation particularly at the peripheries, likely mild background fibrosis. There is increased septal thickening and mild ground-glass opacities in the lower lungs. Overall low lung volumes. Bibasilar atelectasis and trace effusions. Hospital course: 01/18: Feeling ?sick and fatigued? and coughing incessantly brisk diuresis. 01/19: She states she feels better but still very weak and coughing frequently. She had severe hyperglycemia yesterday and was given a single dose of Lantus insulin with high-dose sliding scale coverage, and steroid dosing was decreased. She does not have a prior history of diabetes but has had impaired fasting glucose / prediabetes. 01/20: Minimal improvement, PO lasix restarted. Remains weak and dyspneic. 01/21: She was feeling a little bit better today. In reviewing her last hospitalization she improved only after IV steroids were started. She does take chronic prednisone at 5 mg a day and is followed by Pulmonary at [facility] every [address] Goode. She gets her chronic steroids from her primary care physician. She understands that she has interstitial lung disease but has not heard of bronchiectasis before. She also does feel fluid overloaded and feels that she was Lasix. 01/22: Less short of breath but fatigued by the end of the day Review of systems: No fever or chills headache diplopia No difficulty swallowing No chest pains or palpitations No nausea vomiting or diarrhea No urinary discomfort Physical exam: Very pleasant elderly female morbidly obese HEENT unremarkable Heart sounds distant no murmurs appreciated Lungs with markedly diminished breath sounds bilaterally Abdomen nontender nondistended Extremities 1 + edema x4 Alert and oriented neurologic nonfocal For objective laboratory and imaging please see the bottom of the note: Assessment and plan: Bronchiectasis with Acute on chronic hypoxic and hypercapnic respiratory failure with acute on chronic diastolic congestive heart failure and COPD with mild elevation brain natriuretic peptide and borderline troponin * Diuresis initially we will deescalate * Moderate corticosteroids also deescalate * Levaquin monotherapy to begin with, additional ceftazidime for dual anti pseudomonal coverage in bronchiectasis * Chest physiotherapy * Mucolytic * Trend troponins * Monitor electrolytes Chronic coronary artery disease * Continue all core measures COPD with possible mild exacerbation and bronchiectasis * Low-dose Solu-Medrol and Levaquin ceftazidime and bronchodilators Chronic medical problems: * Chronic respiratory failure with hypoxia * Skin cancer * NSTEMI (non-ST elevated myocardial infarction) status post PCI * Diastolic heart failure * Cardiac arrest * Chest pain * Hypertension * Hyperlipidemia DVT prophylaxis: Subcutaneous heparin Disposition: * Admit to inpatient anticipate 2 days possibly 3), (bronchiectasis is often refractory) acute on chronic diastolic congestive heart failure and COPD exacerbation Code status: Full code blue Time based billin minutes were involved in the management of this patient including a [id number] evaluation in-person physical examination of the patient review of objective laboratory and imaging data including direct visualization of imaging discussing with nursing treatment team review of previous medical records Exam Vital Signs (past 8 hours): - 01/22/25 11:00 01/22/25 15:00 Temperature 96.5 F L 96.7 F L Pulse Rate 72 74 Respiratory Rate 18 18 Blood Pressure 157/63 H 151/64 H Pulse Oximetry 95 99 Fraction of Inspired Oxygen 32 SaO2/FiO2 Ratio 306 Oxygen Delivery Method Nasal Cannula Oxygen Flow Rate 3 Objective Labs 01/22/25 07:45 01/22/25 07:45 Labs: Laboratory Results - last 24 hr 01/21/25 01/21/25 01/22/25 16:54 19:56 07:45 WBC 9.4 RBC 4.74 Hgb 11.7 L Hct 36.2 MCV 76.3 L MCH 24.8 L MCHC 32.5 RDW 19.4 H Plt Count 212 Neut % (Auto) 81.4 H Lymph % (Auto) 12.1 L [place] % (Auto) 5.9 Eos % (Auto) 0.2 L Baso % (Auto) 0.4 Neut # (Auto) 7600 H Lymph # (Auto) 1100 [place] # (Auto) 600 Eos # (Auto) 0 Baso # (Auto) 0 Sodium 129 L Potassium 4.2 Chloride 94 L Carbon Dioxide 28 BUN 35 H Creatinine 0.99 Estimated GFR 55 L BUN/Creatinine Ratio 35.4 H Glucose 228 H POC Whole Bld Glucose 247 H D 360 H D Calcium 9.2 01/22/25 01/22/25 01/22/25 07:57 11:28 11:51 WBC RBC Hgb Hct MCV MCH MCHC RDW Plt Count Neut % (Auto) Lymph % (Auto) [place] % (Auto) Eos % (Auto) Baso % (Auto) Neut # (Auto) Lymph # (Auto) [place] # (Auto) Eos # (Auto) Baso # (Auto) Sodium Potassium Chloride Carbon Dioxide BUN Creatinine Estimated GFR BUN/Creatinine Ratio Glucose POC Whole Bld Glucose 236 H D 357 H D 394 H Calcium PFSH Medical History Cardiac arrest Chest pain Chronic respiratory failure with hypoxia Coronary artery disease Diastolic heart failure Hyperlipidemia Hypertension Left hamstring muscle strain NSTEMI (non-ST elevated myocardial infarction) Skin cancer UTI (urinary tract infection) Surgical History H/O right heart catheterization History of appendectomy History of breast implant removal History of breast surgery History of cholecystectomy History of coronary artery stent placement History of total abdominal hysterectomy Family History Father Hypertension Diabetes mellitus Mother Hypertension [place] (myocardial infarction) Sister [place] (myocardial infarction) S/P CABG x 4 Social History household members: children Smoking Status: Never smoker alcohol intake: never Assessment & Plan Time-Based Coding :: [TOTAL MINUTES] spent with patient and on the chart (including review of chart, obtaining history, exam, reviewing outside data, placing orders, documenting exam and treatment plan, and counseling patient) on [DATE]. Quality VTE Deep Vein Thrombosis/Pulmonary Embolism Present on Admission: No
[2025-01-22] MEDS: ATORVASTATIN 20 MG TABLET 80 MG PO (20:14)
[2025-01-22] MEDS: INSULIN GLARGINE 100 UNIT/ML 3ML PEN 20 UNIT SUBCUT (21:14)
[2025-01-23] VITALS: BP 175/58; PULSE 69; RESP 18; TEMP 36.6; O2SAT 97
[2025-01-23 04:00] VITALS: BP 144/57; PULSE 69; RESP 17; TEMP 36.4; O2SAT 98
[2025-01-23 05:08] LABS: Add Manual Diff / Slide Review NO; Hematocrit 36.4 % (36-46); Hemoglobin 11.6 g/dL (12.0-16.0); Lymphocytes Absolute Auto 1100 /uL (1100-4500); Mean Corpuscular HGB Conc 31.9 % (30-36); Mean Corpuscular Hemoglobin 24.5 PG (26-34); Mean Corpuscular Volume 76.9 fL (80-100); Platelet Count 217 X10^3/uL (150-400)
[2025-01-23 05:19] LABS: Blood Urea Nitrogen 39 mg/dL (7-17); Calcium 8.7 mg/dL (8.4-10.2); Carbon Dioxide 30 mmol/L (22-32); Chloride 93 mmol/L (98-107); Estimated Glomerular Filt Rate 43 mL/min (>60); Glucose 226 mg/dL (70-99); HEMOLYSIS < 15 (0-50); Potassium 4.3 mmol/L (3.4-5.1); Sodium 130 mmol/L (137-145)
[2025-01-23] MEDS: PANTOPRAZOLE DR 40 MG TABLET PO (05:57)
[2025-01-23 08:00] VITALS: BP 155/61; PULSE 74; RESP 19; TEMP 35.9; O2SAT 98
[2025-01-23] MEDS: INSULIN LISPRO 100 UNIT/ML 3ML VIAL SUBCUT ×2 (08:42→12:02)
[2025-01-23] MEDS: INSULIN LISPRO 100 UNIT/ML 3ML VIAL 7 UNIT SUBCUT ×2 (08:44→12:00)
--- NOTE | 2025-01-23 08:52 | P.DS_ITS ---
History of Present Illness History of Present Illness Date Patient Seen: 01/23/25 Chief complaint: SOB, Pain under left rib cage, legs feel tight Narrative: Chief complaint: Increased dyspnea with acute on chronic hypoxic respiratory failure secondary to COPD and diastolic congestive heart failure History of present illness: 89-year-old female with history of COPD chronically on 3 L coronary artery disease diastolic congestive heart failure. Findings in the emergency department significant for: Venous blood gas pH 7.41 pCO2 55 PO2 27 Sodium 134 potassium 3.6 BUN creatinine 191.0 Lactate 3.0 corrected to 1.6 with oxygen Troponin 0.57 Brain natriuretic peptide 956 COVID flu A/B and RSV negative CTA chest: No pulmonary embolus Lungs and pleura: Background reticulation particularly at the peripheries, likely mild background fibrosis. There is increased septal thickening and mild ground-glass opacities in the lower lungs. Overall low lung volumes. Bibasilar atelectasis and trace effusions. Past medical history: * Chronic respiratory failure with hypoxia * Skin cancer * NSTEMI (non-ST elevated myocardial infarction) status post PCI * Diastolic heart failure * Cardiac arrest * Chest pain * Hypertension * Hyperlipidemia Past surgical history: * History of breast implant removal * History of breast surgery * History of appendectomy * History of cholecystectomy * History of total abdominal hysterectomy Patient referred for admission for acute on chronic hypoxic respiratory failure with acute on chronic diastolic congestive heart failure Hospital course: 01/18: Feeling ?sick and fatigued? and coughing incessantly brisk diuresis. 01/19: She states she feels better but still very weak and coughing frequently. She had severe hyperglycemia yesterday and was given a single dose of Lantus insulin with high-dose sliding scale coverage, and steroid dosing was decreased. She does not have a prior history of diabetes but has had impaired fasting glucose / prediabetes. 01/20: Minimal improvement, PO lasix restarted. Remains weak and dyspneic. 01/21: She was feeling a little bit better today. In reviewing her last hospitalization she improved only after IV steroids were started. She does take chronic prednisone at 5 mg a day and is followed by Pulmonary at [facility] every [address] Goode. She gets her chronic steroids from her primary care physician. She understands that she has interstitial lung disease but has not heard of bronchiectasis before. She also does feel fluid overloaded and feels that she was Lasix. 01/22: Less short of breath but fatigued by the end of the day de-escalated all medications to oral 01/23: Patient feeling pretty well ready for discharge today we will discharge on slow prednisone taper and daily azithromycin for 9 months Review of systems: No fever or chills headache diplopia No difficulty swallowing No chest pains or palpitations No nausea vomiting or diarrhea No urinary discomfort Physical exam: Very pleasant elderly female morbidly obese HEENT unremarkable Heart sounds distant no murmurs appreciated Lungs with rales in the bases bilaterally Abdomen nontender nondistended Extremities 1 + edema x4 Alert and oriented neurologic nonfocal For objective laboratory and imaging please see the bottom of the note: Assessment and plan: Acute on chronic hypoxic and hypercapnic respiratory failure with acute on chronic diastolic congestive heart failure and COPD with mild elevation brain natriuretic peptide and borderline troponin * Diuresis * Moderate corticosteroids * Levaquin * Chest physiotherapy * Mucolytic * Trend troponins * Monitor electrolytes Chronic coronary artery disease * Continue all core measures COPD with possible mild exacerbation * Low-dose Solu-Medrol and doxycycline bronchodilators Chronic medical problems: * Chronic respiratory failure with hypoxia * Skin cancer * NSTEMI (non-ST elevated myocardial infarction) status post PCI * Diastolic heart failure * Cardiac arrest * Chest pain * Hypertension * Hyperlipidemia DVT prophylaxis: * Subcutaneous heparin Disposition: * Discharge to home Code status: Full code blue 35 minutes were involved in the management of this patient including a [id number] evaluation in-person physical examination of the patient review of objective laboratory and imaging data including direct visualization of imaging discussion with emergency provider discussing with nursing treatment team review of previous medical records Discharge Providers Provider Date of admission: 01/17/25 15:16 Discharge Date: 01/23/25 Primary care physician: Zoe Bass PA-C Consults: 01/19/25 11:28 Consult to Home Health Routine Comment: Reason For Exam: Resumption of home health services upon discharge 01/21/25 07:19 Consult to Physical Therapy Evaluate & Treat Comment: Physician Instructions: Evaluate and Treat Discharge provider: Lino Soni MD Exam Vital Signs (past 8 hours): - 01/23/25 04:00 01/23/25 08:00 Temperature 97.6 F 96.7 F L Pulse Rate 69 74 Respiratory Rate 17 19 Blood Pressure 144/57 H 155/61 H Pulse Oximetry 98 98 Oxygen Flow Rate 0 3 Fraction of Inspired Oxygen 32 SaO2/FiO2 Ratio 306 Oxygen Delivery Method Nasal Cannula,CPAP Oxygen Flow Rate 3 Objective Labs 01/23/25 04:26 01/23/25 04:26 Labs: Laboratory Results - last 24 hr 01/22/25 01/22/25 01/22/25 11:28 11:51 16:32 WBC RBC Hgb Hct MCV MCH MCHC RDW Plt Count Neut % (Auto) Lymph % (Auto) [place] % (Auto) Eos % (Auto) Baso % (Auto) Neut # (Auto) Lymph # (Auto) [place] # (Auto) Eos # (Auto) Baso # (Auto) Sodium Potassium Chloride Carbon Dioxide BUN Creatinine Estimated GFR BUN/Creatinine Ratio Glucose POC Whole Bld Glucose 357 H D 394 H 228 H D Calcium 01/22/25 01/23/25 01/23/25 20:03 04:26 07:51 WBC 8.1 RBC 4.73 Hgb 11.6 L Hct 36.4 MCV 76.9 L MCH 24.5 L MCHC 31.9 RDW 19.4 H Plt Count 217 Neut % (Auto) 84.1 H Lymph % (Auto) 13.2 L [place] % (Auto) 2.6 L Eos % (Auto) 0.1 L Baso % (Auto) 0.0 Neut # (Auto) 6800 Lymph # (Auto) 1100 [place] # (Auto) 200 Eos # (Auto) 0 Baso # (Auto) 0 Sodium 130 L Potassium 4.3 Chloride 93 L Carbon Dioxide 30 BUN 39 H Creatinine 1.21 H Estimated GFR 43 L BUN/Creatinine Ratio 32.2 H Glucose 226 H POC Whole Bld Glucose 223 H 245 H Calcium 8.7 PFSH Medical History Cardiac arrest Chest pain Chronic respiratory failure with hypoxia Coronary artery disease Diastolic heart failure Hyperlipidemia Hypertension Left hamstring muscle strain NSTEMI (non-ST elevated myocardial infarction) Skin cancer UTI (urinary tract infection) Surgical History H/O right heart catheterization History of appendectomy History of breast implant removal History of breast surgery History of cholecystectomy History of coronary artery stent placement History of total abdominal hysterectomy Family History Father Hypertension Diabetes mellitus Mother Hypertension [place] (myocardial infarction) Sister [place] (myocardial infarction) S/P CABG x 4 Social History household members: children Smoking Status: Never smoker alcohol intake: never Discharge Plan Discharge Plan Patient Disposition: Home Discharge orders & Medications Prescriptions: New furosemide 40 mg Tablet 40 mg PO BID Qty: 180 0RF insulin lispro [Admelog U-100 Insulin lispro] 100 unit/mL Solution 7 unit SUBCUT AC Qty: 30 0RF insulin lispro [Admelog U-100 Insulin lispro] 100 unit/mL Solution 0 unit SUBCUT ACHS Qty: 30 0RF insulin glargine [Lantus Solostar U-100 Insulin] 100 unit/mL (3 mL) Insulin Pen 20 unit SUBCUT BEDTIME Qty: 30 0RF guaifenesin [Mucus Relief ER] 600 mg Tablet Extended Release 12hr 600 mg PO BID Qty: 60 0RF prednisone 20 mg tablet See Rx Instructions .ROUTE .COMPLEX Qty: 100 1RF Rx Instructions: 20 mg 3 tablets twice a day for 5 days then 2 tablets twice a day for 5 days then 1 tablet twice a day azithromycin 500 mg tablet 500 mg PO DAILY 180 Days Qty: 90 2RF Continued aspirin 81 MG tablet,delayed release (DR/EC) 81 mg PO DAILY Qty: 0 pantoprazole 40 mg Tablet,Delayed Release (Dr/Ec) 40 mg PO DAILY escitalopram oxalate 20 mg Tablet 20 mg PO DAILY metoprolol tartrate 25 mg tablet 12.5 mg PO BID Rx Instructions: 1/2 tablet = 12.5 mg BID - AM & PM prednisone 10 mg tablet 25 mg PO DIRECTED Patient Comments: currently on 25mg portion of taper Rx Instructions: Two tablets daily for 10 days then 1 tablet daily as maintenance nitroglycerin 0.4 mg tablet, sublingual 1 tab sublingual [id number] PRN (Reason: Chest Pain) Patient Comments: take it when needed, last dose unknown rosuvastatin 40 mg tablet 40 mg PO QPM acetaminophen-codeine 300-30 mg tablet 1 tab PO BID PRN (Reason: pain) ipratropium-albuterol 0.5 mg-3 mg(2.5 mg base)/3 mL solution for nebulization 3 ml inhalation DIRECTED PRN (Reason: sob, wheezing) ranolazine 500 mg tablet extended release 12 hr 500 mg PO BID Discontinued furosemide [Lasix] 40 mg tablet 40 mg PO BID Qty: 60 3RF Follow up/Referrals: Zoe Bass PA-C [Primary Care Provider, Medical] Visit Report/Discharge Packet Stand Alone Forms: Patient Portal/API, Stroke Signs & Symptoms Discharge Data Primary Care Provider: Zoe Bass Quality VTE Deep Vein Thrombosis/Pulmonary Embolism Present on Admission: No
[2025-01-23] MEDS: FUROSEMIDE 40 MG TABLET PO (09:20)
[2025-01-23] MEDS: HEPARIN 5,000 UNIT/ML VIAL 5000 UNIT SUBCUT (09:20)
[2025-01-23] MEDS: ESCITALOPRAM 10 MG TABLET 20 MG PO (09:20)
[2025-01-23] MEDS: ASPIRIN EC 81 MG TABLET PO (09:20)
[2025-01-23] MEDS: METOPROLOL IR 25 MG TABLET 12.5 MG PO (09:21)
[2025-01-23] MEDS: SODIUM CHLORIDE 0.9% FLUSH 10 ML IV (09:45)
[2025-01-23] MEDS: RANOLAZINE 500 MG TAB.ER.12H PO (09:51)
[2025-01-23] MEDS: DOCUSATE 100 MG CAPSULE PO (09:56)
--- NOTE | 2025-01-23 11:45 | CM.DPC ---
Addendum entered by DONNELL Erickson 01/23/25 15:23: ADD: Per Pharmacist, did some medication teach bedside and recommendation of outpt referral to [employer] due to new diabetes education and new insulin teach. PENNIE called pt's provider's office [facility]oe [facility] in [place] and requested referral for [place] [facility] due to above reasons and msg sent to Provider requesting referral as urgent request. Per Pharmacist Anahi [place] [facility] [facility] Damari aware of new referral request and holding spot for patient on the schedule. BF Original Note: DCP Discharge Home with HH Per MD, pt is medically stable to discharge home today with ongoing HH and outpt f/u. No identified barriers to discharge. PENNIE secure emailed discharge summary to [facility], F2F and orders previously sent. Family plans to provide transport home for patient today and have plans in the future for a road trip to see new born baby twins in the extended family. DONNELL Erickson
[2025-01-23 12:00] VITALS: BP 126/52; PULSE 68; RESP 20; TEMP 35.7; O2SAT 98
--- NOTE | 2025-01-23 15:39 | PC.NURSE ---
Pt A/O. med x one for discomfort early in shift, w/good relief. CBG 245; 272 both covered by S/S as per orders. Orders for D/C received. Home instruction given. Time spend on Insulin education given in depth by Pharmacist Anahi Pt escorted by staff via W/C to waiting vehicle. D/C in stable status.
== END 2025-01-23 15:10 | disposition home health service (06) | DRG 291 ==
LOC: ED 14:54 → AC 15:19
PROVIDERS: Hospitalist; Internal Medicine; Admitting Provider Internal Medicine; Emergency Provider Family Medicine; Family Provider Internal Medicine; PCP Physician Assistant Medical; Referring Provider Family Medicine; Visit Provider Internal Medicine
DX: I11.0 Hypertensive heart disease with heart failure (principal); I50.33 Acute on chronic diastolic (congestive) heart failure; J96.21 Acute and chronic respiratory failure with hypoxia; J96.22 Acute and chronic respiratory failure with hypercapnia; J44.1 Chronic obstructive pulmonary disease with (acute) exacerbation; I25.10 Atherosclerotic heart disease of native coronary artery without angina pectoris; J47.9 Bronchiectasis, uncomplicated; R79.89 Other specified abnormal findings of blood chemistry; E11.65 Type 2 diabetes mellitus with hyperglycemia; T38.0X5A Adverse effect of glucocorticoids and synthetic analogues, initial encounter; E78.5 Hyperlipidemia, unspecified; I25.2 Old myocardial infarction; Z79.52 Long term (current) use of systemic steroids; Z99.81 Dependence on supplemental oxygen; Z95.5 Presence of coronary angioplasty implant and graft
CPT/HCPCS: 36415; 71045; 71275; 80048; 80053; 82805; 82947; 82962; 83605; 83880; 84484; 85025; 85610; 87637; 93005; 94640; 96374; 96375; 97162; 97530; 99285; J0360; J0713; J1171; J1200; J1644; J1815; J1938; J2405; J2919; Q9967

== ENCOUNTER → 2025-01-30 10:25 | Outpatient (CLI) | payer MEDICARE, OTHER, SELFPAY ==
[2025-01-17 20:51] VITALS: BMI 42.5
--- NOTE | 2025-01-30 14:04 | DIAB.MNT ---
Initial Diabetes Medical Nutrition Therapy Assessment Name: Lida Townsend Date: 01/30/25 Time: 1040-1140a Dx: Type II Diabetes Provider: Kali Hilton presents for initial Dm visit, accompanied by daughter Beronica. Newly dx during recent hospitalization for CHF. Currently on prednisone, which is impacting glucose. Reducing prednisone q 5 days. BG continues above goal, however hoping this improves with reduced prednisone. May benefit from increased insulin. Does use SSI. Waiting on Mounjaro rx approval. Interested in CGM. Today we placed a Dexcom G7, will need an rx. RD to message/fax provider's office to update with visit summary and rec for rx. Daughter brought labels of recent foods for review. Most portions reported are in goal for CHO. Using plant based higher protein pastas. Choosing more veggies. Supplementing with low CHO ONS when not feeling hunger. Daughter would prefer that she chooses whole foods over ONS. Eating TID. States she is usually a grazer Has questions about fruit intake Plans to go on a family road trip to [place] to see newly born great grandchildren. Leaving Feb 12. Anthropometrics: Ht: 61 Wt: 227# per referral Physical Activity: Not discussed today Self-Monitoring Blood Glucose: All BG above goal. Plans to start GLP1 once approved. Plans to reduce prednisone per PCP recs. Date Pre Post Pre Post Pre Post HS 01/24 257 372 01/25 305 241 422 430 01/26 264 259 425 462 01/27 215 237 163 01/28 170 299 370 01/29 259 261 267 348 01/30 229 Diabetes Medications: 20u Glargine HS 7u + SSI 2u q 50mg/dl over goal 2.5mg Mounjaro-- not started yet Pertinent Labs: HgA1c: 228mg/dl 01/22/25 226mg/dl 01/23/25 Past Medical History: (Last Reviewed 01/19/25 @ 09:32 by Valentin Saini MD) Cardiac arrest Forty years ago reported as complication from medication reaction. Chest pain Chronic respiratory failure with hypoxia Coronary artery disease Diastolic heart failure Preserved EF Hyperlipidemia Hypertension Left hamstring muscle strain NSTEMI (non-ST elevated myocardial infarction) Skin cancer UTI (urinary tract infection) Nutrition Rx: Carbohydrates: Meal:30g (max 45g) Snack:15-30g Nutrition Diagnosis: - Nutrition and food related knowledge deficit r/t newly dx T2Dm aeb elevated BG >200mg/dl and PCP referral and pt report Intervention: This participant was very receptive. Provided appropriate educational handouts. Discussed the following topics: Completed intake assessment. Bg review and goals CGM education, self placement, precautions, and benefits Plate Method, impact of macronutrients on blood sugar, carb recommendations, pairing macronutrients and spreading out carbohydrates for better blood glucose management Recommended servings for carbohydrates at meals and snacks Use of ONS at this time as a meal replacment Label reading review for net CHO Created SMART goals for patient self-care and success. Goals: Wear CGM Try to limit meals to 30g CHO at this time Follow-up: JASME[facility] JJ follow-up in 2 weeks. Offered follow-up with [facility] program. Patient reports she would like to come to [facility] at this time. Encouraged her to go to either program based on her convenience. If she continues to come to , RD will send visit summaries to PCP. Damari Corado RDN, АННА Certified [employer] and [employer] Person P: [phone] Thank you for this referral
== END ==
LOC: DIET 10:26
PROVIDERS: Family Provider Internal Medicine; PCP Physician Assistant Medical; Referring Provider Physician Assistant Medical
DX: E11.9 Type 2 diabetes mellitus without complications (principal); Z71.3 Dietary counseling and surveillance; I50.9 Heart failure, unspecified; Z79.4 Long term (current) use of insulin; Z79.52 Long term (current) use of systemic steroids
CPT/HCPCS: 97802

== ENCOUNTER 2025-02-03 12:10 | Inpatient (IN) | payer MEDICARE, OTHER, SELFPAY ==
[2025-01-17 20:51] VITALS: BMI 42.5
[2025-02-03] VITALS (26 sets, daily range): BP systolic 119–187; BP diastolic 54–82; PULSE 61–79; RESP 11–24; TEMP 35.9–37.1; O2SAT 96–99; BMI 42.9; BMI 43.1
--- NOTE | 2025-02-03 12:53 | DI.RAD.S_ITS ---
PROCEDURE: XR CHEST 1V INDICATIONS: Shortness of breath TECHNIQUE: One view of the chest was acquired. COMPARISON: [facility], , XR CHEST 1V, 01/17/2025, 11:10. FINDINGS: Surgical changes and devices: None. Lungs and pleura: Lungs are clear. No pleural effusions or pneumothorax. Mediastinum: Mediastinal contours appear normal. Heart size is enlarged. Bones and chest wall: No suspicious bony lesions. Overlying soft tissues appear unremarkable. IMPRESSION: No acute cardiopulmonary pathology. Dictated by: Edmundo Deng M.D. on 02/03/2025 at 13:31 Approved by: Edmundo Deng M.D. on 02/03/2025 at 13:32
--- NOTE | 2025-02-03 12:53 | EKG_ITS ---
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
[2025-02-03 13:09] LABS: Add Manual Diff / Slide Review NO; Hematocrit 39.1 % (36-46); Hemoglobin 12.5 g/dL (12.0-16.0); Lymphocytes Absolute Auto 800 /uL (1100-4500); Mean Corpuscular HGB Conc 32.0 % (30-36); Mean Corpuscular Hemoglobin 24.3 PG (26-34); Mean Corpuscular Volume 76.1 fL (80-100); Platelet Count 222 X10^3/uL (150-400)
[2025-02-03 13:14] LABS: INR 1.0 (0.9-1.3); Prothrombin Time 11.8 SECONDS (9.4-12.5)
[2025-02-03 13:19] LABS: Alanine Aminotransferase 18 IU/L (<35); Albumin 3.6 g/dL (3.5-5.0); Albumin Globulin Ratio 1.5 (1.0-2.8); Alkaline Phosphatase 45 U/L (38-126); Blood Urea Nitrogen 42 mg/dL (7-17); Calcium 8.7 mg/dL (8.4-10.2); Carbon Dioxide 32 mmol/L (22-32); Chloride 95 mmol/L (98-107); Estimated Glomerular Filt Rate 55 mL/min (>60); Globulin 2.4 g/dL (1.7-4.1); Glucose 272 mg/dL (70-99); HEMOLYSIS < 15 (0-50); Lactate (Lactic Acid) 2.3 mmol/L (0.7-2.1); Potassium 3.7 mmol/L (3.4-5.1); Sodium 134 mmol/L (137-145); Total Protein 6.0 g/dL (6.3-8.2)
[2025-02-03 13:31] LABS: NT-proBNP (BNP-Adult 18+) 1740 pg/mL (<450)
[2025-02-03 14:01] LABS: Troponin I 0.129 ng/mL (0.01-0.034)
--- NOTE | 2025-02-03 14:07 | ED_ITS ---
HPI - SOB/Dyspnea <Cherry Riggins, DO - Last Filed: 02/09/25 20:45> General Chief Complaint: Shortness of Breath/Dyspnea Stated Complaint: confusion, SOB, CHF Time Seen by Provider: 02/03/25 14:07 Source: patient and EMS Mode of arrival: EMS Limitations: no limitations History of Present Illness HPI Narrative: 89-year-old female history of COPD on 3 L nasal cannula, diabetes on insulin, hypertension, dyslipidemia, congestive heart failure, coronary artery disease with prior cardiac stent on aspirin 81 mg daily patient was not admitted 01/17 25 through 01/17/2011 for acute on chronic hypoxic and hypercapnic respiratory failure with a acute on chronic diastolic congestive heart failure and COPD patient received antibiotics, steroids and bronchodilators during her stay had troponins trended but never positive. Patient presents with complaint of persistent symptoms from her hospitalization and she feels like there little bit worse. She has had persistent cough particularly nighttime coughs up phlegm states it is typically the color of whatever she has had to drink but has not vomiting. She describes persistent right-sided chest pain since her hospitalization maybe little bit worse but never resolves she denies radiation. States she feels very fluid overloaded and feels like she needs to be diuresed. She notes increased swelling of her lower extremities. She has mostly been able to get around but notes she has been bumping up her O2 to 4 L nasal cannula from her normal 3 when attempting to ambulate. Patient states today was harder to get around. She notes she has been having some diaphoresis. No fevers. No nausea or vomiting. No issues with bowel movements. She has not appreciate any issues with urination. She is currently taking Lasix 40 mg b.i.d., states maybe had some medication changes for diabetes since she left the hospital states she was still taking oral antibiotics but looks like she should have completed this based on her discharge summary. She states she does not feel improved from her hospitalization. She follows with Dr. Ellington for cardiology at [facility]. [place] dias as her primary care physician. No tobacco, occasional alcohol, no recreational drugs. Related Data Home Medications ?Medication ?Instructions ?Recorded ?Confirmed aspirin 81 mg tablet,delayed 81 mg PO DAILY ##0 02/03/25 release nitroglycerin 0.4 mg sublingual 1 tab sublingual Q5MIN X3 PRN Chest 11/18/18 02/03/25 tablet Pain rosuvastatin 40 mg tablet 40 mg PO QPM 11/18/18 escitalopram oxalate 20 mg tablet 20 mg PO DAILY 03/0602/03/25 pantoprazole 40 mg tablet,delayed 40 mg PO DAILY 03/0602/03/25 release metoprolol tartrate 25 mg tablet 12.5 mg PO BID 02/03/25 acetaminophen 300 mg-codeine 30 mg 1 tab PO BID PRN pa in 07/03/24 02/03/25 tablet ipratropium 0.5 mg-albuterol 3 mg 3 ml inhalation D IRECTED PRN 07/03/24 02/03/25 (2.5 mg base)/3 mL nebulization sob, wheezing soln ranolazine 500 mg tablet,extended 500 mg PO BID 02/03/25 release,12 hr lancets 28 gauge (FreeStyle 02/03/25 02/03/25 Lancets) Previous Rx's ?Medication ?Instructions ?Recorded furosemide 40 mg tablet 40 mg PO BID #180 tabs 01/23 guaifenesin 600 mg tablet, 600 mg PO BID #60 tabs 01/13 06/08 extended release 12 hr (Mucus Relief ER) insulin glargine 100 unit/mL (3 20 unit (0.2 mL) SUBCU T BEDTIME 01/23/25 mL) subcutaneous pen (Lantus #30 mL Solostar U-100 Insulin) insulin lispro 100 unit/mL 0 unit (0 mL) SUBCUT ACHS # 30 mL 01/23/25 subcutaneous solution (Admelog U-100 Insulin lispro) insulin lispro 100 unit/mL 7 unit (0.07 mL) SUBCUT AC #30 mL 01/23/25 subcutaneous solution (Admelog U-100 Insulin lispro) miscellaneous medical supply #100 ea 01/23/25 nystatin 100,000 unit/gram topical 1 applic topical BI D #120 grams 01/23/25 ointment nystatin 100,000 unit/mL oral 100,000 unit PO QID #500 mL 01/23/25 suspension prednisone 20 mg tablet See Rx Instructions .Route 0 01/23/25 .COMPLEX #100 tabs Allergies Allergy/AdvReac Type Severity Reaction Status Date / Time Iodinated Contrast Media Allergy Severe Unconscious Verified 12/15/24 12:43 (IODINATED CONTRAST- ORAL AND IV DYE) morphine (MORPHINE) Allergy Severe Rash Verified 12/15/24 12:43 telmisartan (TELMISARTAN) Allergy Severe Rash Verified 12/15/24 12:43 Review of Systems <Cherry Riggins DO - Last Filed: 02/09/25 20:45> Review of Systems ROS Unobtainable: All systems reviewed & are unremarkable except as noted in HPI and below Patient History <Cherry Riggins DO - Last Filed: 02/09/25 20:45> Medical History Chronic respiratory failure with hypoxia Skin cancer NSTEMI (non-ST elevated myocardial infarction) Diastolic heart failure Cardiac arrest Chest pain Hypertension Hyperlipidemia Coronary artery disease Left hamstring muscle strain UTI (urinary tract infection) Surgical History H/O right heart catheterization History of breast implant removal History of breast surgery History of appendectomy History of cholecystectomy History of total abdominal hysterectomy History of coronary artery stent placement Family History Father Hypertension Diabetes mellitus Mother Hypertension AK (myocardial infarction) Sister AK (myocardial infarction) S/P CABG x 4 Social History household members: children Smoking Status: Never smoker alcohol intake: never Smoking Status: Never smoker alcohol intake frequency: holidays/special occasions only Exam <Cherry Riggins DO - Last Filed: 02/09/25 20:45> Narrative Exam Narrative: GENERAL: Alert and oriented x three, obese female in mild distress HEENT: Head normocephalic, atraumatic, EOMI, pupils reactive, face symmetric, moist mucous membranes, nasal cannula in place. NECK: Supple, full range of motion CARDIOVASCULAR: Regular rate and rhythm without murmurs, rubs or gallops. Bilateral lower extremity edema. RESPIRATORY: Breath sounds equal bilaterally, no wheezes rales or rhonchi. No tachypnea, no accessory muscle use. ABDOMEN: Soft, nontender. Normoactive bowel sounds all 4 quadrants. No guarding or rebound, rigidity, no mass : No CVA tenderness EXTREMITIES: Normal range of motion, cap refill less than 2 seconds bilateral lower extremity. Neurovascularly intact NEUROLOGICAL: Cranial nerves II through XII grossly intact. Moving all extremities SKIN: Warm, dry, no petechiae, no rashes or lesions. Initial Vital Signs Initial Vital Signs: Vital Signs Pulse Rate 67 02/03/25 12:12 Pulse Oximetry 96 02/03/25 12:12 Oxygen Delivery Method Nasal Cannula 02/03/25 12:12 Oxygen Flow Rate 3 02/03/25 12:12 <Bhumi Addison MD - Last Filed: 02/03/25 17:21> Initial Vital Signs Initial Vital Signs: Vital Signs Pulse Rate 67 02/03/25 12:12 Pulse Oximetry 96 02/03/25 12:12 Oxygen Delivery Method Nasal Cannula 02/03/25 12:12 Oxygen Flow Rate 3 02/03/25 12:12 Course <Cherry Riggins DO - Last Filed: 02/09/25 20:45> Orders Ordered: Acetaminophen (Acetaminophen 325 Mg Tablet) 650 mg PO Q6H PRN PRN Reason: Fever/Mild Pain (1-3) Aspirin (Aspirin Ec 81 Mg Tablet) 81 mg PO DAILY [facility] Last Admin: 02/09/25 08:30 Dose: 81 mg Documented By: Admin: 02/08/25 09:56 Dose: 81 mg Documented By: Admin: 02/07/25 09:41 Dose: 81 mg Documented By: Admin: 02/06/25 08:42 Dose: 81 mg Documented By: Admin: 02/05/25 09:19 Dose: 81 mg Documented By: Admin: 02/04/25 10:19 Dose: 81 mg Documented By: CELINE Atorvastatin Calcium (Atorvastatin 20 Mg Tablet) 80 mg PO BEDTIME [facility] Last Admin: 02/09/25 20:35 Dose: 80 mg Documented By: Admin: 02/08/25 20:44 Dose: 80 mg Documented By: Admin: 02/07/25 20:46 Dose: 80 mg Documented By: Admin: 02/06/25 21:07 Dose: 80 mg Documented By: Admin: 02/05/25 21:28 Dose: 80 mg Documented By: Admin: 02/04/25 20:54 Dose: 80 mg Documented By: Admin: 02/03/25 20:56 Dose: 80 mg Documented By: LEESA Escitalopram Oxalate (Escitalopram 10 Mg Tablet) 20 mg PO DAILY [facility] Last Admin: 02/09/25 08:30 Dose: 20 mg Documented By: Admin: 02/08/25 09:56 Dose: 20 mg Documented By: Admin: 02/07/25 09:42 Dose: 20 mg Documented By: Admin: 02/06/25 08:42 Dose: 20 mg Documented By: Admin: 02/05/25 09:20 Dose: 20 mg Documented By: Admin: 02/04/25 10:19 Dose: 20 mg Documented By: CELINE Furosemide (Furosemide 20 Mg Tablet) 20 mg PO 0800,1700 [facility] Guaifenesin (Guaifenesin Er 600 Mg Tab) 600 mg PO BID [facility] Last Admin: 02/09/25 20:35 Dose: 600 mg Documented By: LEESA Guaifenesin/Dextromethorphan (Guaifenesin/Dm 200 Mg/20 Mg/10 Ml Syrup) 10 ml PO Q6HR [facility] Last Admin: 02/09/25 18:35 Dose: 10 ml Documented By: Admin: 02/09/25 11:21 Dose: 10 ml Documented By: EVAN Heparin Sodium (Porcine) (Heparin 5,000 Unit/Ml Vial) 7,500 unit SUBCUT Q8HR [facility] Dextrose (D10w) 100 mls @ 999 mls/hr IV PRN PRN PRN Reason: Hypoglycemia Sodium Chloride (Normal Saline 0.9%) 1,000 mls @ 1,000 mls/hr IV BOLUS PRN PRN Reason: Fluid replacement Azithromycin 500 mg/ Dextrose 250 mls @ 250 mls/hr IV Q24H [facility] Stop: 02/11/25 15:00 Last Infusion: 02/09/25 16:43 Dose: Infused Documented By: Admin: 02/09/25 14:54 Dose: 250 mls/hr Documented By: EVAN Insulin Glargine (Insulin Glargine 100 Unit/Ml 3ml Pen) 25 unit SUBCUT BEDTIME [facility] Last Admin: 02/09/25 20:36 Dose: 25 unit Documented By: AT Co-signed By: SUAD Admin: 02/08/25 21:02 Dose: Not Given Documented By: Admin: 02/07/25 20:45 Dose: 25 unit Documented By: MASSIEL Co-signed By: Insulin Glargine (Insulin Glargine 100 Unit/Ml 3ml Pen) 10 unit SUBCUT DAILY [facility] Last Admin: 02/09/25 08:32 Dose: 10 unit Documented By: EVAN Co-signed By: SUAD(2) Admin: 02/08/25 09:23 Dose: 10 unit Documented By: ADILENE Co-signed By: HARRISON Insulin Human Lispro (Insulin Lispro 100 Unit/Ml 3ml Vial) 0 unit SUBCUT ACHS [facility]; Protocol Last Admin: 02/09/25 20:36 Dose: 2 unit Documented By: AT Co-signed By: SUAD Admin: 02/09/25 17:02 Dose: 5 unit Documented By: BARAK Co-signed By: EVAN Admin: 02/09/25 12:00 Dose: 3 unit Documented By: EVAN Co-signed By: ADILENE Admin: 02/09/25 08:30 Dose: 1 unit Documented By: EVAN Co-signed By: SUAD(2) Admin: 02/08/25 21:02 Dose: Not Given Documented By: Admin: 02/08/25 17:37 Dose: 1 unit Documented By: ADILENE Co-signed By: ADEN Admin: 02/08/25 13:31 Dose: 3 unit Documented By: ADILENE Co-signed By: ADEN Admin: 02/08/25 09:23 Dose: 3 unit Documented By: ADILENE Co-signed By: HARRISON Admin: 02/07/25 20:43 Dose: 5 unit Documented By: MASSIEL Co-signed By: Admin: 02/07/25 17:03 Dose: 5 unit Documented By: ADILENE Co-signed By: TUSHAR Admin: 02/07/25 11:56 Dose: 3 unit Documented By: ADILENE Co-signed By: CONSTANTINO Admin: 02/07/25 08:29 Dose: Not Given Documented By: Admin: 02/06/25 21:08 Dose: 5 unit Documented By: CHRIS Co-signed By: SCOTTY Admin: 02/06/25 16:56 Dose: 1 unit Documented By: CELINE Co-signed By: JIM Admin: 02/06/25 12:08 Dose: 3 unit Documented By: CELINE Co-signed By: CESILIA Admin: 02/06/25 07:55 Dose: Not Given Documented By: Admin: 02/05/25 21:28 Dose: 3 unit Documented By: LAWSON Co-signed By: CONSTANTINO Admin: 02/05/25 17:00 Dose: 3 unit Documented By: CELINE Co-signed By: CONSTANTINO Admin: 02/05/25 11:57 Dose: 1 unit Documented By: CELINE Co-signed By: MOMO Admin: 02/05/25 08:26 Dose: Not Given Documented By: Admin: 02/04/25 20:29 Dose: 5 unit Documented By: HENRIQUE Co-signed By: MAIN Admin: 02/04/25 17:10 Dose: 8 unit Documented By: CELINE Co-signed By: CHAYA Insulin Human Lispro (Insulin Lispro 100 Unit/Ml 3ml Vial) 10 unit SUBCUT [facility] Last Admin: 02/09/25 17:02 Dose: 10 unit Documented By: BARAK Co-signed By: EVAN Metoprolol Tartrate (Metoprolol Ir 25 Mg Tablet) 12.5 mg PO BID [facility] Last Admin: 02/09/25 20:35 Dose: 12.5 mg Documented By: Admin: 02/09/25 08:32 Dose: 12.5 mg Documented By: Admin: 02/08/25 20:44 Dose: 12.5 mg Documented By: Admin: 02/08/25 09:56 Dose: 12.5 mg Documented By: Admin: 02/07/25 20:45 Dose: 12.5 mg Documented By: Admin: 02/07/25 09:41 Dose: 12.5 mg Documented By: Admin: 02/06/25 21:07 Dose: 12.5 mg Documented By: Admin: 02/06/25 08:42 Dose: 12.5 mg Documented By: Admin: 02/05/25 21:28 Dose: 12.5 mg Documented By: Admin: 02/05/25 09:20 Dose: 12.5 mg Documented By: Admin: 02/04/25 20:54 Dose: 12.5 mg Documented By: Admin: 02/04/25 10:18 Dose: 12.5 mg Documented By: Admin: 02/03/25 20:56 Dose: 12.5 mg Documented By: AT Naloxone HCl (Naloxone 0.4 Mg/Ml Vial) 0.2 mg IV Q2MIN PRN PRN Reason: Opiate Reversal Ondansetron HCl (Ondansetron 4 Mg Odt) 4 mg SL Q6HR PRN PRN Reason: Nausea Last Admin: 02/08/25 09:29 Dose: 4 mg Documented By: ADILENE Potassium Chloride (Potassium Chloride 20 Meq Tab) 20 meq PO BIDWM [facility] Last Admin: 02/09/25 17:04 Dose: 20 meq Documented By: Admin: 02/09/25 08:30 Dose: 20 meq Documented By: Admin: 02/08/25 17:43 Dose: Not Given Documented By: Admin: 02/08/25 09:56 Dose: 20 meq Documented By: Admin: 02/07/25 17:03 Dose: 20 meq Documented By: Admin: 02/07/25 09:41 Dose: 20 meq Documented By: Admin: 02/06/25 17:33 Dose: 20 meq Documented By: Admin: 02/06/25 08:43 Dose: 20 meq Documented By: Admin: 02/05/25 17:36 Dose: 20 meq Documented By: CELINE Prednisone (Prednisone 5 Mg Tablet) 20 mg PO DAILY [facility] Last Admin: 02/09/25 08:29 Dose: 20 mg Documented By: Admin: 02/08/25 09:58 Dose: 20 mg Documented By: Admin: 02/07/25 09:43 Dose: 20 mg Documented By: Admin: 02/06/25 08:42 Dose: 20 mg Documented By: Admin: 02/05/25 09:20 Dose: 20 mg Documented By: CELINE Ranolazine (Ranolazine 500 Mg Tab.Er.12h) 500 mg PO BID [facility] Last Admin: 02/09/25 20:35 Dose: 500 mg Documented By: Admin: 02/09/25 08:30 Dose: 500 mg Documented By: Admin: 02/08/25 20:43 Dose: 500 mg Documented By: Admin: 02/08/25 09:56 Dose: 500 mg Documented By: Admin: 02/07/25 20:45 Dose: 500 mg Documented By: Admin: 02/07/25 09:41 Dose: 500 mg Documented By: Admin: 02/06/25 21:07 Dose: 500 mg Documented By: Admin: 02/06/25 08:42 Dose: 500 mg Documented By: Admin: 02/05/25 21:28 Dose: 500 mg Documented By: Admin: 02/05/25 09:19 Dose: 500 mg Documented By: Admin: 02/04/25 20:54 Dose: 500 mg Documented By: Admin: 02/04/25 10:19 Dose: 500 mg Documented By: Admin: 02/03/25 20:58 Dose: 500 mg Documented By: LEESA Sodium Chloride (Sodium Chloride 0.9% Flush) 10 ml IV PRN PRN PRN Reason: Flush Sodium Chloride (Sodium Chloride 0.9% Flush) 10 ml IV BID [facility] Last Admin: 02/09/25 20:36 Dose: 10 ml Documented By: Admin: 02/09/25 08:32 Dose: 10 ml Documented By: Admin: 02/08/25 21:00 Dose: 10 ml Documented By: Admin: 02/08/25 10:06 Dose: 10 ml Documented By: ADILENE Discontinued Medications Aspirin (Aspirin 81 Mg Chew Tab) 324 mg PO NOW ONE Stop: 02/03/25 14:28 Last Admin: 02/03/25 14:48 Dose: 324 mg Documented By: TIM Diphenhydramine HCl (Diphenhydramine 50 Mg/Ml Vial) 50 mg IV NOW ONE Stop: 02/03/25 14:28 Last Admin: 02/03/25 14:49 Dose: 50 mg Documented By: TIM Enoxaparin Sodium (Enoxaparin 40 Mg/0.4 Ml Syringe) 40 mg SUBCUT BID [facility] Last Admin: 02/09/25 08:31 Dose: 40 mg Documented By: Admin: 02/08/25 20:44 Dose: 40 mg Documented By: Admin: 02/08/25 09:58 Dose: 40 mg Documented By: Admin: 02/07/25 20:46 Dose: 40 mg Documented By: Admin: 02/07/25 09:41 Dose: 40 mg Documented By: Admin: 02/06/25 21:08 Dose: 40 mg Documented By: Admin: 02/06/25 12:08 Dose: 40 mg Documented By: CELINE Furosemide (Furosemide 40 Mg/4 Ml Vial) 40 mg IV NOW ONE Stop: 02/03/25 14:28 Last Admin: 02/03/25 14:53 Dose: 40 mg Documented By: TIM Furosemide (Furosemide 40 Mg/4 Ml Vial) 40 mg IV Q12HR [facility] Last Admin: 02/04/25 23:06 Dose: 40 mg Documented By: Admin: 02/04/25 13:41 Dose: 40 mg Documented By: Admin: 02/03/25 23:14 Dose: 40 mg Documented By: LAWSON Furosemide (Furosemide 40 Mg/4 Ml Vial) 40 mg IV 0700,1700 [facility] Last Admin: 02/06/25 07:03 Dose: 40 mg Documented By: Admin: 02/05/25 17:36 Dose: 40 mg Documented By: Admin: 02/05/25 09:40 Dose: 40 mg Documented By: CELINE Furosemide (Furosemide 20 Mg Tablet) 20 mg PO 0800,1700 [facility] Last Admin: 02/09/25 11:20 Dose: Not Given Documented By: EVAN Heparin Sodium (Porcine) (Heparin 5,000 Unit/Ml Vial) 5,000 unit IV NOW ONE Stop: 02/03/25 14:28 Last Admin: 02/03/25 15:24 Dose: 5,000 unit Documented By: TIM Heparin Sodium (Porcine) (Heparin 5,000 Unit/Ml Vial) 5,000 unit SUBCUT BID [facility] Heparin Sodium (Porcine) (Heparin 5,000 Unit/Ml Vial) 2,500 unit 25 unit/kg (2500 unit) IV NOW ONE Stop: 02/04/25 13:35 Last Admin: 02/04/25 13:40 Dose: 2,500 unit Documented By: CELINE Heparin Sodium (Porcine) (Heparin 5,000 Unit/Ml Vial) 2,500 unit 25 unit/kg (2500 unit) IV NOW ONE Stop: 02/05/25 09:23 Last Admin: 02/05/25 10:13 Dose: 2,500 unit Documented By: CELINE Heparin Sodium/Dextrose (Heparin Drip) 25,000 unit in 500 mls @ 24.712 mls/hr IV CONT [facility]; Protocol Last Titration: 02/05/25 15:19 Dose: Infused Documented By: CELINE Co-signed By: MOMO Titration: 02/05/25 10:13 Dose: 6.5 units/kg/hr, 13.385 mls/hr Documented By: CELINE Co-signed By: MOMO Admin: 02/05/25 04:56 Dose: 5.5 units/kg/hr, 11.326 mls/hr Documented By: HENRIQUE Co-signed By: AT Titration: 02/05/25 03:45 Dose: Infused Documented By: HENRIQUE Co-signed By: AT Titration: 02/04/25 20:30 Dose: 5.5 units/kg/hr, 11.326 mls/hr Documented By: HENRIQUE Co-signed By: LAWSON Titration: 02/04/25 00:27 Dose: 6.5 units/kg/hr, 13.385 mls/hr Documented By: LAWSON Co-signed By: LOREN Titration: 02/03/25 23:08 Dose: 0 units/kg/hr, 0 mls/hr Documented By: LAWSON Co-signed By: LOREN Admin: 02/03/25 15:29 Dose: 9.5 units/kg/hr, 19.563 mls/hr Documented By: TIM Co-signed By: JAZMINE Piperacillin Sod/Tazobactam (Sod 4.5 gm/ Sodium Chloride) 100 mls @ 200 mls/hr IV NOW ONE Stop: 02/03/25 14:28 Last Infusion: 02/03/25 15:45 Dose: Infused Documented By: Admin: 02/03/25 14:56 Dose: 200 mls/hr Documented By: TIM Furosemide 80 mg/ Sodium (Chloride) 58 mls @ 116 mls/hr IV 0700,1700 [facility] Last Infusion: 02/07/25 06:37 Dose: Infused Documented By: Admin: 02/07/25 05:55 Dose: 116 mls/hr Documented By: Infusion: 02/06/25 18:24 Dose: Infused Documented By: Admin: 02/06/25 17:33 Dose: 116 mls/hr Documented By: CELINE Furosemide 80 mg/ Sodium (Chloride) 58 mls @ 116 mls/hr IV Q8H [facility] Last Admin: 02/07/25 22:44 Dose: Not Given Documented By: MASSIEL Furosemide 80 mg/ Sodium (Chloride) 58 mls @ 116 mls/hr IV Q8HR [facility] Last Admin: 02/09/25 06:20 Dose: Not Given Documented By: Admin: 02/08/25 21:03 Dose: Not Given Documented By: Infusion: 02/08/25 15:54 Dose: Infused Documented By: Admin: 02/08/25 14:24 Dose: 116 mls/hr Documented By: Infusion: 02/08/25 06:42 Dose: Infused Documented By: Admin: 02/08/25 06:00 Dose: 116 mls/hr Documented By: Infusion: 02/07/25 22:41 Dose: Infused Documented By: Admin: 02/07/25 21:46 Dose: 116 mls/hr Documented By: Infusion: 02/07/25 16:25 Dose: Infused Documented By: Admin: 02/07/25 14:13 Dose: 116 mls/hr Documented By: ADILENE Insulin Glargine (Insulin Glargine 100 Unit/Ml 3ml Pen) 15 unit SUBCUT 2100 [facility] Last Admin: 02/03/25 21:10 Dose: 15 unit Documented By: LEESA Co-signed By: LAWSON Insulin Glargine (Insulin Glargine 100 Unit/Ml 3ml Pen) 5 unit SUBCUT NOW ONE Stop: 02/04/25 11:46 Last Admin: 02/04/25 12:03 Dose: 5 unit Documented By: CELINE Co-signed By: MOMO Insulin Glargine (Insulin Glargine 100 Unit/Ml 3ml Pen) 30 unit SUBCUT BEDTIME [facility] Last Admin: 02/06/25 21:08 Dose: 30 unit Documented By: CHRIS Co-signed By: SCOTTY Admin: 02/05/25 21:28 Dose: 30 unit Documented By: LAWSON Co-signed By: CONSTANTINO Admin: 02/04/25 20:26 Dose: 30 unit Documented By: HENRIQUE Co-signed By: MAIN Insulin Human Lispro (Insulin Lispro 100 Unit/Ml 3ml Vial) 0 unit SUBCUT ACHS [facility]; Protocol Last Admin: 02/04/25 12:02 Dose: 3 unit Documented By: CELINE Co-signed By: MOMO Admin: 02/04/25 08:05 Dose: 2 unit Documented By: CELINE Co-signed By: JAZIEL Admin: 02/03/25 21:09 Dose: 4 unit Documented By: LEESA Co-signed By: LAWSON Insulin Human Lispro (Insulin Lispro 100 Unit/Ml 3ml Vial) 5 unit SUBCUT AC [facility] Last Admin: 02/04/25 12:02 Dose: 5 unit Documented By: CELINE Co-signed By: MOMO Insulin Human Lispro (Insulin Lispro 100 Unit/Ml 3ml Vial) 7 unit SUBCUT AC [facility] Last Admin: 02/05/25 16:59 Dose: 7 unit Documented By: CELINE Co-signed By: CONSTANTINO Admin: 02/05/25 11:57 Dose: 7 unit Documented By: CELINE Co-signed By: MOMO Admin: 02/05/25 08:26 Dose: 7 unit Documented By: CELINE Co-signed By: MOMO Admin: 02/04/25 17:10 Dose: 7 unit Documented By: CELINE Co-signed By: CHAYA Insulin Human Lispro (Insulin Lispro 100 Unit/Ml 3ml Vial) 7 unit SUBCUT AC [facility] Insulin Human Lispro (Insulin Lispro 100 Unit/Ml 3ml Vial) 8 unit SUBCUT 0745 [facility] Last Admin: 02/09/25 08:31 Dose: 8 unit Documented By: EVAN Co-signed By: SUAD(2) Admin: 02/08/25 09:24 Dose: 8 unit Documented By: ADILENE Co-signed By: HARRISON Admin: 02/07/25 09:32 Dose: Not Given Documented By: Admin: 02/06/25 07:57 Dose: 8 unit Documented By: CELINE Co-signed By: SCOTTY Insulin Human Lispro (Insulin Lispro 100 Unit/Ml 3ml Vial) 10 unit SUBCUT 1145,1645 [facility] Last Admin: 02/09/25 11:59 Dose: 10 unit Documented By: EVAN Co-signed By: ADILENE Admin: 02/08/25 17:34 Dose: Not Given Documented By: Admin: 02/08/25 13:31 Dose: 10 unit Documented By: ADILENE Co-signed By: EV Admin: 02/07/25 17:03 Dose: 10 unit Documented By: ADILENE Co-signed By: TUSHAR Admin: 02/07/25 11:57 Dose: 10 unit Documented By: ADILENE Co-signed By: CONSTANTINO Admin: 02/06/25 16:56 Dose: 10 unit Documented By: CELINE Co-signed By: JIM Admin: 02/06/25 12:08 Dose: 10 unit Documented By: CELINE Co-signed By: CLL Insulin Human Regular (Insulin Regular 100 Unit/Ml 3 Ml Vial) 15 unit SUBCUT NOW ONE Stop: 02/03/25 22:59 Last Admin: 02/03/25 23:14 Dose: 15 unit Documented By: LAWSON Co-signed By: MASSIEL Insulin Human Regular (Insulin Regular 100 Unit/Ml 3 Ml Vial) 10 unit SUBCUT NOW ONE Stop: 02/04/25 02:31 Last Admin: 02/04/25 02:49 Dose: 10 unit Documented By: LEESA Co-signed By: LAWSON Methylprednisolone (Methylprednisolone Succ 125 Mg/2 Ml Vial) 125 mg IV NOW ONE Stop: 02/03/25 14:28 Last Admin: 02/03/25 14:50 Dose: 125 mg Documented By: TIM Metolazone (Metolazone 2.5 Mg Tablet) 5 mg PO 0800 [facility] Last Admin: 02/09/25 08:30 Dose: 5 mg Documented By: Admin: 02/08/25 10:01 Dose: 5 mg Documented By: Admin: 02/07/25 11:56 Dose: 5 mg Documented By: ADILENE Ondansetron HCl (Ondansetron 4 Mg/2 Ml Inj) 4 mg IV Q6HR PRN PRN Reason: Nausea And Vomiting Potassium Chloride (Potassium Chloride 20 Meq Tab) 20 meq PO BIDWM [facility] Potassium Chloride (Potassium Chloride 20 Meq Tab) 40 meq PO NOW ONE Stop: 02/05/25 09:46 Last Admin: 02/05/25 09:39 Dose: 40 meq Documented By: CELINE Prednisone (Prednisone 5 Mg Tablet) 10 mg PO DAILY [facility] Last Admin: 02/04/25 10:18 Dose: 10 mg Documented By: CELINE Vital Signs Vital signs: Vital Signs - 8 hr 02/03/25 12:12 02/03/25 12:17 02/03/25 12:17 Temperature Pulse Rate 67 67 Respiratory Rate Blood Pressure 187/82 H Pulse Oximetry 96 99 Oxygen Delivery Method Nasal Cannula Nasal Cannula Oxygen Flow Rate 3 3 02/03/25 12:21 02/03/25 12:30 02/03/25 12:31 Temperature 98.7 F Pulse Rate 66 63 63 Respiratory Rate 24 15 20 Blood Pressure 187/82 H Pulse Oximetry 99 99 99 Oxygen Delivery Method Nasal Cannula Nasal Cannula Nasal Cannula Oxygen Flow Rate 9 3 3 02/03/25 12:31 02/03/25 13:00 02/03/25 13:00 Temperature Pulse Rate 62 Respiratory Rate 11 L Blood Pressure 163/71 H 162/70 H Pulse Oximetry 99 Oxygen Delivery Method Nasal Cannula Oxygen Flow Rate 3 02/03/25 13:30 02/03/25 13:30 02/03/25 14:00 Temperature Pulse Rate 61 62 Respiratory Rate Blood Pressure 150/65 H Pulse Oximetry 98 99 Oxygen Delivery Method Nasal Cannula Nasal Cannula Oxygen Flow Rate 3 3 02/03/25 14:00 02/03/25 14:30 02/03/25 14:31 Temperature Pulse Rate 62 62 Respiratory Rate 19 12 Blood Pressure 157/72 H Pulse Oximetry 98 99 Oxygen Delivery Method Nasal Cannula Nasal Cannula Oxygen Flow Rate 3 3 02/03/25 14:31 Temperature Pulse Rate Respiratory Rate Blood Pressure 150/67 H Pulse Oximetry Oxygen Delivery Method Oxygen Flow Rate <Bhumi Addison MD - Last Filed: 02/03/25 17:21> Orders Ordered: Acetaminophen (Acetaminophen 325 Mg Tablet) 650 mg PO Q6H PRN PRN Reason: Fever/Mild Pain (1-3) Aspirin (Aspirin Ec 81 Mg Tablet) 81 mg PO DAILY [facility] Last Admin: 02/09/25 08:30 Dose: 81 mg Documented By: Admin: 02/08/25 09:56 Dose: 81 mg Documented By: Admin: 02/07/25 09:41 Dose: 81 mg Documented By: Admin: 02/06/25 08:42 Dose: 81 mg Documented By: Admin: 02/05/25 09:19 Dose: 81 mg Documented By: Admin: 02/04/25 10:19 Dose: 81 mg Documented By: CELINE Atorvastatin Calcium (Atorvastatin 20 Mg Tablet) 80 mg PO BEDTIME [facility] Last Admin: 02/09/25 20:35 Dose: 80 mg Documented By: Admin: 02/08/25 20:44 Dose: 80 mg Documented By: Admin: 02/07/25 20:46 Dose: 80 mg Documented By: Admin: 02/06/25 21:07 Dose: 80 mg Documented By: Admin: 02/05/25 21:28 Dose: 80 mg Documented By: Admin: 02/04/25 20:54 Dose: 80 mg Documented By: Admin: 02/03/25 20:56 Dose: 80 mg Documented By: AT Escitalopram Oxalate (Escitalopram 10 Mg Tablet) 20 mg PO DAILY [facility] Last Admin: 02/09/25 08:30 Dose: 20 mg Documented By: Admin: 02/08/25 09:56 Dose: 20 mg Documented By: Admin: 02/07/25 09:42 Dose: 20 mg Documented By: Admin: 02/06/25 08:42 Dose: 20 mg Documented By: Admin: 02/05/25 09:20 Dose: 20 mg Documented By: Admin: 02/04/25 10:19 Dose: 20 mg Documented By: CELINE Furosemide (Furosemide 20 Mg Tablet) 20 mg PO 0800,1700 [facility] Guaifenesin (Guaifenesin Er 600 Mg Tab) 600 mg PO BID [facility] Last Admin: 02/09/25 20:35 Dose: 600 mg Documented By: AT Guaifenesin/Dextromethorphan (Guaifenesin/Dm 200 Mg/20 Mg/10 Ml Syrup) 10 ml PO Q6HR [facility] Last Admin: 02/09/25 18:35 Dose: 10 ml Documented By: Admin: 02/09/25 11:21 Dose: 10 ml Documented By: EVAN Heparin Sodium (Porcine) (Heparin 5,000 Unit/Ml Vial) 7,500 unit SUBCUT Q8HR [facility] Dextrose (D10w) 100 mls @ 999 mls/hr IV PRN PRN PRN Reason: Hypoglycemia Sodium Chloride (Normal Saline 0.9%) 1,000 mls @ 1,000 mls/hr IV BOLUS PRN PRN Reason: Fluid replacement Azithromycin 500 mg/ Dextrose 250 mls @ 250 mls/hr IV Q24H [facility] Stop: 02/11/25 15:00 Last Infusion: 02/09/25 16:43 Dose: Infused Documented By: Admin: 02/09/25 14:54 Dose: 250 mls/hr Documented By: EVAN Insulin Glargine (Insulin Glargine 100 Unit/Ml 3ml Pen) 25 unit SUBCUT BEDTIME [facility] Last Admin: 02/09/25 20:36 Dose: 25 unit Documented By: LEESA Co-signed By: SUAD Admin: 02/08/25 21:02 Dose: Not Given Documented By: Admin: 02/07/25 20:45 Dose: 25 unit Documented By: MASSIEL Co-signed By: Insulin Glargine (Insulin Glargine 100 Unit/Ml 3ml Pen) 10 unit SUBCUT DAILY [facility] Last Admin: 02/09/25 08:32 Dose: 10 unit Documented By: EVAN Co-signed By: SUAD(2) Admin: 02/08/25 09:23 Dose: 10 unit Documented By: ADILENE Co-signed By: HARRISON Insulin Human Lispro (Insulin Lispro 100 Unit/Ml 3ml Vial) 0 unit SUBCUT [facility]; Protocol Last Admin: 02/09/25 20:36 Dose: 2 unit Documented By: AT Co-signed By: SUAD Admin: 02/09/25 17:02 Dose: 5 unit Documented By: AKT Co-signed By: EVAN Admin: 02/09/25 12:00 Dose: 3 unit Documented By: EVAN Co-signed By: ADILENE Admin: 02/09/25 08:30 Dose: 1 unit Documented By: EVAN Co-signed By: SUAD(2) Admin: 02/08/25 21:02 Dose: Not Given Documented By: Admin: 02/08/25 17:37 Dose: 1 unit Documented By: ADILENE Co-signed By: ADEN Admin: 02/08/25 13:31 Dose: 3 unit Documented By: ADILENE Co-signed By: ADEN Admin: 02/08/25 09:23 Dose: 3 unit Documented By: ADILENE Co-signed By: HARRISON Admin: 02/07/25 20:43 Dose: 5 unit Documented By: MASSIEL Co-signed By: Admin: 02/07/25 17:03 Dose: 5 unit Documented By: ADILENE Co-signed By: TUSHAR Admin: 02/07/25 11:56 Dose: 3 unit Documented By: ADILENE Co-signed By: CONSTANTINO Admin: 02/07/25 08:29 Dose: Not Given Documented By: Admin: 02/06/25 21:08 Dose: 5 unit Documented By: CHRIS Co-signed By: SCOTTY Admin: 02/06/25 16:56 Dose: 1 unit Documented By: CELINE Co-signed By: JIM Admin: 02/06/25 12:08 Dose: 3 unit Documented By: CELINE Co-signed By: CESILIA Admin: 02/06/25 07:55 Dose: Not Given Documented By: Admin: 02/05/25 21:28 Dose: 3 unit Documented By: LAWSON Co-signed By: CONSTANTINO Admin: 02/05/25 17:00 Dose: 3 unit Documented By: CELNIE Co-signed By: CONSTANTINO Admin: 02/05/25 11:57 Dose: 1 unit Documented By: CELINE Co-signed By: MOMO Admin: 02/05/25 08:26 Dose: Not Given Documented By: Admin: 02/04/25 20:29 Dose: 5 unit Documented By: HENRIQUE Co-signed By: MAIN Admin: 02/04/25 17:10 Dose: 8 unit Documented By: CELINE Co-signed By: CHAYA Insulin Human Lispro (Insulin Lispro 100 Unit/Ml 3ml Vial) 10 unit SUBCUT AC [facility] Last Admin: 02/09/25 17:02 Dose: 10 unit Documented By: BARAK Co-signed By: EVAN Metoprolol Tartrate (Metoprolol Ir 25 Mg Tablet) 12.5 mg PO BID [facility] Last Admin: 02/09/25 20:35 Dose: 12.5 mg Documented By: Admin: 02/09/25 08:32 Dose: 12.5 mg Documented By: Admin: 02/08/25 20:44 Dose: 12.5 mg Documented By: Admin: 02/08/25 09:56 Dose: 12.5 mg Documented By: Admin: 02/07/25 20:45 Dose: 12.5 mg Documented By: Admin: 02/07/25 09:41 Dose: 12.5 mg Documented By: Admin: 02/06/25 21:07 Dose: 12.5 mg Documented By: Admin: 02/06/25 08:42 Dose: 12.5 mg Documented By: Admin: 02/05/25 21:28 Dose: 12.5 mg Documented By: Admin: 02/05/25 09:20 Dose: 12.5 mg Documented By: Admin: 02/04/25 20:54 Dose: 12.5 mg Documented By: Admin: 02/04/25 10:18 Dose: 12.5 mg Documented By: Admin: 02/03/25 20:56 Dose: 12.5 mg Documented By: AT Naloxone HCl (Naloxone 0.4 Mg/Ml Vial) 0.2 mg IV Q2MIN PRN PRN Reason: Opiate Reversal Ondansetron HCl (Ondansetron 4 Mg Odt) 4 mg SL Q6HR PRN PRN Reason: Nausea Last Admin: 02/08/25 09:29 Dose: 4 mg Documented By: ADILENE Potassium Chloride (Potassium Chloride 20 Meq Tab) 20 meq PO BIDWM [facility] Last Admin: 02/09/25 17:04 Dose: 20 meq Documented By: Admin: 02/09/25 08:30 Dose: 20 meq Documented By: Admin: 02/08/25 17:43 Dose: Not Given Documented By: Admin: 02/08/25 09:56 Dose: 20 meq Documented By: Admin: 02/07/25 17:03 Dose: 20 meq Documented By: Admin: 02/07/25 09:41 Dose: 20 meq Documented By: Admin: 02/06/25 17:33 Dose: 20 meq Documented By: Admin: 02/06/25 08:43 Dose: 20 meq Documented By: Admin: 02/05/25 17:36 Dose: 20 meq Documented By: CELINE Prednisone (Prednisone 5 Mg Tablet) 20 mg PO DAILY [facility] Admin: 02/09/25 08:29 Dose: 20 mg Documented By: Admin: 02/08/25 09:58 Dose: 20 mg Documented By: Admin: 02/07/25 09:43 Dose: 20 mg Documented By: Admin: 02/06/25 08:42 Dose: 20 mg Documented By: Admin: 02/05/25 09:20 Dose: 20 mg Documented By: CELINE Ranolazine (Ranolazine 500 Mg Tab.Er.12h) 500 mg PO BID [facility] Admin: 02/09/25 20:35 Dose: 500 mg Documented By: Admin: 02/09/25 08:30 Dose: 500 mg Documented By: Admin: 02/08/25 20:43 Dose: 500 mg Documented By: Admin: 02/08/25 09:56 Dose: 500 mg Documented By: Admin: 02/07/25 20:45 Dose: 500 mg Documented By: Admin: 02/07/25 09:41 Dose: 500 mg Documented By: Admin: 02/06/25 21:07 Dose: 500 mg Documented By: Admin: 02/06/25 08:42 Dose: 500 mg Documented By: Admin: 02/05/25 21:28 Dose: 500 mg Documented By: Admin: 02/05/25 09:19 Dose: 500 mg Documented By: Admin: 02/04/25 20:54 Dose: 500 mg Documented By: Admin: 02/04/25 10:19 Dose: 500 mg Documented By: Admin: 02/03/25 20:58 Dose: 500 mg Documented By: LEESA Sodium Chloride (Sodium Chloride 0.9% Flush) 10 ml IV PRN PRN PRN Reason: Flush Sodium Chloride (Sodium Chloride 0.9% Flush) 10 ml IV BID [facility] Last Admin: 02/09/25 20:36 Dose: 10 ml Documented By: Admin: 02/09/25 08:32 Dose: 10 ml Documented By: Admin: 02/08/25 21:00 Dose: 10 ml Documented By: Admin: 02/08/25 10:06 Dose: 10 ml Documented By: ADILENE Discontinued Medications Aspirin (Aspirin 81 Mg Chew Tab) 324 mg PO NOW ONE Stop: 02/03/25 14:28 Last Admin: 02/03/25 14:48 Dose: 324 mg Documented By: TIM Diphenhydramine HCl (Diphenhydramine 50 Mg/Ml Vial) 50 mg IV NOW ONE Stop: 02/03/25 14:28 Last Admin: 02/03/25 14:49 Dose: 50 mg Documented By: TIM Enoxaparin Sodium (Enoxaparin 40 Mg/0.4 Ml Syringe) 40 mg SUBCUT BID [facility] Last Admin: 02/09/25 08:31 Dose: 40 mg Documented By: Admin: 02/08/25 20:44 Dose: 40 mg Documented By: Admin: 02/08/25 09:58 Dose: 40 mg Documented By: Admin: 02/07/25 20:46 Dose: 40 mg Documented By: Admin: 02/07/25 09:41 Dose: 40 mg Documented By: Admin: 02/06/25 21:08 Dose: 40 mg Documented By: Admin: 02/06/25 12:08 Dose: 40 mg Documented By: CELINE Furosemide (Furosemide 40 Mg/4 Ml Vial) 40 mg IV NOW ONE Stop: 02/03/25 14:28 Last Admin: 02/03/25 14:53 Dose: 40 mg Documented By: TIM Furosemide (Furosemide 40 Mg/4 Ml Vial) 40 mg IV Q12HR [facility] Last Admin: 02/04/25 23:06 Dose: 40 mg Documented By: Admin: 02/04/25 13:41 Dose: 40 mg Documented By: Admin: 02/03/25 23:14 Dose: 40 mg Documented By: LAWSON Furosemide (Furosemide 40 Mg/4 Ml Vial) 40 mg IV 0700,1700 [facility] Last Admin: 02/06/25 07:03 Dose: 40 mg Documented By: Admin: 02/05/25 17:36 Dose: 40 mg Documented By: Admin: 02/05/25 09:40 Dose: 40 mg Documented By: CELINE Furosemide (Furosemide 20 Mg Tablet) 20 mg PO 0800,1700 [facility] Last Admin: 02/09/25 11:20 Dose: Not Given Documented By: EVAN Heparin Sodium (Porcine) (Heparin 5,000 Unit/Ml Vial) 5,000 unit IV NOW ONE Stop: 02/03/25 14:28 Last Admin: 02/03/25 15:24 Dose: 5,000 unit Documented By: TIM Heparin Sodium (Porcine) (Heparin 5,000 Unit/Ml Vial) 5,000 unit SUBCUT BID [facility] Heparin Sodium (Porcine) (Heparin 5,000 Unit/Ml Vial) 2,500 unit 25 unit/kg (2500 unit) IV NOW ONE Stop: 02/04/25 13:35 Last Admin: 02/04/25 13:40 Dose: 2,500 unit Documented By: CELINE Heparin Sodium (Porcine) (Heparin 5,000 Unit/Ml Vial) 2,500 unit 25 unit/kg (2500 unit) IV NOW ONE Stop: 02/05/25 09:23 Last Admin: 02/05/25 10:13 Dose: 2,500 unit Documented By: CELINE Heparin Sodium/Dextrose (Heparin Drip) 25,000 unit in 500 mls @ 24.712 mls/hr IV CONT [facility]; Protocol Last Titration: 02/05/25 15:19 Dose: Infused Documented By: CELINE Co-signed By: MOMO Titration: 02/05/25 10:13 Dose: 6.5 units/kg/hr, 13.385 mls/hr Documented By: CELINE Co-signed By: MOMO Admin: 02/05/25 04:56 Dose: 5.5 units/kg/hr, 11.326 mls/hr Documented By: HENRIQUE Co-signed By: AT Titration: 02/05/25 03:45 Dose: Infused Documented By: HENRIQUE Co-signed By: AT Titration: 02/04/25 20:30 Dose: 5.5 units/kg/hr, 11.326 mls/hr Documented By: HENRIQUE Co-signed By: LAWSON Titration: 02/04/25 00:27 Dose: 6.5 units/kg/hr, 13.385 mls/hr Documented By: LAWSON Co-signed By: LOREN Titration: 02/03/25 23:08 Dose: 0 units/kg/hr, 0 mls/hr Documented By: LAWSON Co-signed By: LOREN Admin: 02/03/25 15:29 Dose: 9.5 units/kg/hr, 19.563 mls/hr Documented By: TIM Co-signed By: JAZMINE Piperacillin Sod/Tazobactam (Sod 4.5 gm/ Sodium Chloride) 100 mls @ 200 mls/hr IV NOW ONE Stop: 02/03/25 14:28 Last Infusion: 02/03/25 15:45 Dose: Infused Documented By: Admin: 02/03/25 14:56 Dose: 200 mls/hr Documented By: TIM Furosemide 80 mg/ Sodium (Chloride) 58 mls @ 116 mls/hr IV 0700,1700 [facility] Last Infusion: 02/07/25 06:37 Dose: Infused Documented By: Admin: 02/07/25 05:55 Dose: 116 mls/hr Documented By: Infusion: 02/06/25 18:24 Dose: Infused Documented By: Admin: 02/06/25 17:33 Dose: 116 mls/hr Documented By: CELINE Furosemide 80 mg/ Sodium (Chloride) 58 mls @ 116 mls/hr IV Q8H [facility] Last Admin: 02/07/25 22:44 Dose: Not Given Documented By: MASSIEL Furosemide 80 mg/ Sodium (Chloride) 58 mls @ 116 mls/hr IV Q8HR [facility] Last Admin: 02/09/25 06:20 Dose: Not Given Documented By: Admin: 02/08/25 21:03 Dose: Not Given Documented By: Infusion: 02/08/25 15:54 Dose: Infused Documented By: Admin: 02/08/25 14:24 Dose: 116 mls/hr Documented By: Infusion: 02/08/25 06:42 Dose: Infused Documented By: Admin: 02/08/25 06:00 Dose: 116 mls/hr Documented By: Infusion: 02/07/25 22:41 Dose: Infused Documented By: Admin: 02/07/25 21:46 Dose: 116 mls/hr Documented By: Infusion: 02/07/25 16:25 Dose: Infused Documented By: Admin: 02/07/25 14:13 Dose: 116 mls/hr Documented By: ADILENE Insulin Glargine (Insulin Glargine 100 Unit/Ml 3ml Pen) 15 unit SUBCUT 2100 [facility] Last Admin: 02/03/25 21:10 Dose: 15 unit Documented By: LEESA Co-signed By: LAWSON Insulin Glargine (Insulin Glargine 100 Unit/Ml 3ml Pen) 5 unit SUBCUT NOW ONE Stop: 02/04/25 11:46 Last Admin: 02/04/25 12:03 Dose: 5 unit Documented By: CELINE Co-signed By: MOMO Insulin Glargine (Insulin Glargine 100 Unit/Ml 3ml Pen) 30 unit SUBCUT BEDTIME [facility] Last Admin: 02/06/25 21:08 Dose: 30 unit Documented By: CHRIS Co-signed By: SCOTTY Admin: 02/05/25 21:28 Dose: 30 unit Documented By: LAWSON Co-signed By: CONSTANTINO Admin: 02/04/25 20:26 Dose: 30 unit Documented By: HENRIQUE Co-signed By: AMIN Insulin Human Lispro (Insulin Lispro 100 Unit/Ml 3ml Vial) 0 unit SUBCUT ACHS [facility]; Protocol Last Admin: 02/04/25 12:02 Dose: 3 unit Documented By: CELINE Co-signed By: MOMO Admin: 02/04/25 08:05 Dose: 2 unit Documented By: CELINE Co-signed By: JAZIEL Admin: 02/03/25 21:09 Dose: 4 unit Documented By: LEESA Co-signed By: LAWSON Insulin Human Lispro (Insulin Lispro 100 Unit/Ml 3ml Vial) 5 unit SUBCUT AC [facility] Last Admin: 02/04/25 12:02 Dose: 5 unit Documented By: CELINE Co-signed By: MOMO Insulin Human Lispro (Insulin Lispro 100 Unit/Ml 3ml Vial) 7 unit SUBCUT AC [facility] Last Admin: 02/05/25 16:59 Dose: 7 unit Documented By: CELINE Co-signed By: CONSTANTINO Admin: 02/05/25 11:57 Dose: 7 unit Documented By: CELINE Co-signed By: MOMO Admin: 02/05/25 08:26 Dose: 7 unit Documented By: CELINE Co-signed By: MOMO Admin: 02/04/25 17:10 Dose: 7 unit Documented By: CELINE Co-signed By: CHAYA Insulin Human Lispro (Insulin Lispro 100 Unit/Ml 3ml Vial) 7 unit SUBCUT AC [facility] Insulin Human Lispro (Insulin Lispro 100 Unit/Ml 3ml Vial) 8 unit SUBCUT 0745 [facility] Last Admin: 02/09/25 08:31 Dose: 8 unit Documented By: EVAN Co-signed By: SUAD(2) Admin: 02/08/25 09:24 Dose: 8 unit Documented By: ADILENE Co-signed By: HARRISON Admin: 02/07/25 09:32 Dose: Not Given Documented By: Admin: 02/06/25 07:57 Dose: 8 unit Documented By: CELINE Co-signed By: SCOTTY Insulin Human Lispro (Insulin Lispro 100 Unit/Ml 3ml Vial) 10 unit SUBCUT 1145,1645 [facility] Last Admin: 02/09/25 11:59 Dose: 10 unit Documented By: EVAN Co-signed By: ADILENE Admin: 02/08/25 17:34 Dose: Not Given Documented By: Admin: 02/08/25 13:31 Dose: 10 unit Documented By: ADILENE Co-signed By: EV Admin: 02/07/25 17:03 Dose: 10 unit Documented By: ADILENE Co-signed By: TUSHAR Admin: 02/07/25 11:57 Dose: 10 unit Documented By: ADILENE Co-signed By: RANCHOK Admin: 02/06/25 16:56 Dose: 10 unit Documented By: CELINE Co-signed By: JIM Admin: 02/06/25 12:08 Dose: 10 unit Documented By: CELINE Co-signed By: CESILIA Insulin Human Regular (Insulin Regular 100 Unit/Ml 3 Ml Vial) 15 unit SUBCUT NOW ONE Stop: 02/03/25 22:59 Last Admin: 02/03/25 23:14 Dose: 15 unit Documented By: LAWSON Co-signed By: MASSIEL Insulin Human Regular (Insulin Regular 100 Unit/Ml 3 Ml Vial) 10 unit SUBCUT NOW ONE Stop: 02/04/25 02:31 Last Admin: 02/04/25 02:49 Dose: 10 unit Documented By: AT Co-signed By: LAWSON Methylprednisolone (Methylprednisolone Succ 125 Mg/2 Ml Vial) 125 mg IV NOW ONE Stop: 02/03/25 14:28 Last Admin: 02/03/25 14:50 Dose: 125 mg Documented By: TIM Metolazone (Metolazone 2.5 Mg Tablet) 5 mg PO 0800 [facility] Last Admin: 02/09/25 08:30 Dose: 5 mg Documented By: Admin: 02/08/25 10:01 Dose: 5 mg Documented By: Admin: 02/07/25 11:56 Dose: 5 mg Documented By: ADILENE Ondansetron HCl (Ondansetron 4 Mg/2 Ml Inj) 4 mg IV Q6HR PRN PRN Reason: Nausea And Vomiting Potassium Chloride (Potassium Chloride 20 Meq Tab) [facility] Potassium Chloride (Potassium Chloride 20 Meq Tab) 40 meq PO NOW ONE Stop: 02/05/25 09:46 Last Admin: 02/05/25 09:39 Dose: 40 meq Documented By: CELINE Prednisone (Prednisone 5 Mg Tablet) 10 mg PO DAILY [facility] Last Admin: 02/04/25 10:18 Dose: 10 mg Documented By: CELINE Vital Signs Vital signs: Vital Signs - 8 hr 02/03/25 12:12 02/03/25 12:17 02/03/25 12:17 Temperature Pulse Rate 67 67 Respiratory Rate Blood Pressure 187/82 H Pulse Oximetry 96 99 Oxygen Delivery Method Nasal Cannula Nasal Cannula Oxygen Flow Rate 3 3 02/03/25 12:21 02/03/25 12:30 02/03/25 12:31 Temperature 98.7 F Pulse Rate 66 63 63 Respiratory Rate 24 15 20 Blood Pressure 187/82 H Pulse Oximetry 99 99 99 Oxygen Delivery Method Nasal Cannula Nasal Cannula Nasal Cannula Oxygen Flow Rate 9 3 3 02/03/25 12:31 02/03/25 13:00 02/03/25 13:00 Temperature Pulse Rate 62 Respiratory Rate 11 L Blood Pressure 163/71 H 162/70 H Pulse Oximetry 99 Oxygen Delivery Method Nasal Cannula Oxygen Flow Rate 3 02/03/25 13:30 02/03/25 13:30 02/03/25 14:00 Temperature Pulse Rate 61 62 Respiratory Rate Blood Pressure 150/65 H Pulse Oximetry 98 99 Oxygen Delivery Method Nasal Cannula Nasal Cannula Oxygen Flow Rate 3 3 02/03/25 14:00 02/03/25 14:30 02/03/25 14:31 Temperature Pulse Rate 62 62 Respiratory Rate 19 12 Blood Pressure 157/72 H Pulse Oximetry 98 99 Oxygen Delivery Method Nasal Cannula Nasal Cannula Oxygen Flow Rate 3 3 02/03/25 14:31 Temperature Pulse Rate Respiratory Rate Blood Pressure 150/67 H Pulse Oximetry Oxygen Delivery Method Oxygen Flow Rate MDM - SOB/Dyspnea <Cherry Riggins, DO - Last Filed: 02/09/25 20:45> Lab Data 02/09/25 09:20 02/09/25 09:20 Labs: Lab Results 02/03/25 02/03/25 02/03/25 Range/Units 12:41 12:45 14:52 WBC 19.2 H 17.9 H (4.5-11.0) X10^3/uL RBC 5.13 5.07 (4.0-5.2) X10^6/uL Hgb 12.5 12.3 (12.0-16.0) g/dL Hct 39.1 38.2 (36-46) % MCV 76.1 L 75.3 L (80-100) fL MCH 24.3 L 24.3 L (26-34) PG MCHC 32.0 32.2 (30-36) % RDW 19.8 H 20.1 H (11.6-14.8) % Plt Count 222 223 (150-400) X10^3/uL Neut % (Auto) 89.9 H 92.1 H (50-75) % Lymph % (Auto) 4.4 L 5.5 L (25-40) % [place] % (Auto) 5.5 2.2 L (3-14) % Eos % (Auto) 0.1 L 0.0 L (2-4) % Baso % (Auto) 0.1 0.2 (0-2) % Neut # (Auto) 48366 H 18679 H (4356-3651) /uL Lymph # (Auto) 800 L 1000 L (0967-2782) /uL [place] # (Auto) 1000 H 400 (0-900) /uL Eos # (Auto) 0 0 (0-450) /uL Baso # (Auto) 0 0 (0-100) /uL RBC Morphology See below Anisocytosis 1+ H PT 11.8 11.7 (9.4-12.5) SECONDS INR 1.0 1.0 (0.9-1.3) APTT 19 L (25.1-36.5) SECONDS Sodium 134 L (137-145) mmol/L Potassium 3.7 (3.4-5.1) mmol/L Chloride 95 L (98-107) mmol/L Carbon Dioxide 32 (22-32) mmol/L BUN 42 H (7-17) mg/dL Creatinine 1.00 (0.52-1.04) mg/dL Estimated GFR 55 L (>60) mL/min BUN/Creatinine Ratio 42.0 H (6-22) Glucose 272 H (70-99) mg/dL POC Whole Bld Glucose 290 H (70-99) mg/dL Lactate 2.3 H 1.9 (0.7-2.1) mmol/L Calcium 8.7 (8.4-10.2) mg/dL Total Bilirubin 0.7 (0.2-1.3) mg/dL AST 26 (14-36) IU/L ALT 18 (<35) IU/L Alkaline Phosphatase 45 (38-126) U/L Troponin I 0.129 H* 0.130 H* (0.01-0.034) ng/mL NT-Pro-B Natriuret Pep 1740 H (<450) pg/mL Total Protein 6.0 L (6.3-8.2) g/dL Albumin 3.6 (3.5-5.0) g/dL Globulin 2.4 (1.7-4.1) g/dL Albumin/Globulin Ratio 1.5 (1.0-2.8) Procalcitonin 0.054 (<0.5) ng/mL Point of Care Testing Glucose POC 290 ECG Data Attestation: I personally reviewed and interpreted this ECG as follows: Prior ECG tracings: available for review Interpretation: Sinus rhythm first-degree AV block rate of 66 MD 210 QRS 86 QTC 492, appears similar to prior from 01/17/2025. Sinus rhythm rate of 65 MD 194 QRS 88 QTC of 507, no acute ST elevation or depression noted. No dynamic changes appreciated from 1st to 2nd EKG. MDM Narrative Medical decision making narrative: Labs show white count of 19.2, hemoglobin of 12.5 patient has microcytic which appears similar to prior hemoglobin slightly improved from prior, platelets are 222. Patient has predominance of neutrophils. INR is 1, creatinine is 1 with prior on 01/23/2025 of 1.21 sodium is 134 potassium is 3 7 chloride 95 with a CO2 of 32 and a BUN of 42, glucose is 272. Lactate today is 2.3. Initial troponin is elevated at 0.129 patient had indeterminate troponins earlier this month during hospitalization but was never positive. BNP today is 1740 this is almost double patient's BNP during hospitalization which was 956. Chest x-ray shows no acute cardiopulmonary pathology. EKG shows sinus rhythm first-degree AV block rate of 66 MD 210 QRS 86 QTC of 492. No acute ST changes compared to prior 01/17/2025. CT angio chest ordered. Patient's white count is 19 questionably has a component of persistent pneumonia was treated here in the hospital for pneumonia and had changes on CT, I suspect more fluid overload possibly demand ischemia versus NSTEMI causing worsening CHF. We will repeat troponin, patient to be started on anticoagulation, Lasix, aspirin, we will also cover with antibiotic for potential persistent pneumonia. We will repeat CT to evaluate for any progressive pneumonia changes versus edema versus pulmonary embolism patient had recent hospitalization he is on an aspirin daily. Discussed with the patient we will likely require transfer for evaluation with Cardiology. Patient signed out to Dr. Addison. <Bhumi Addison MD - Last Filed: 02/03/25 17:21> Lab Data Labs: Lab Results 02/03/25 02/03/25 02/03/25 Range/Units 12:41 12:45 14:52 WBC 19.2 H 17.9 H (4.5-11.0) X10^3/uL RBC 5.13 5.07 (4.0-5.2) X10^6/uL Hgb 12.5 12.3 (12.0-16.0) g/dL Hct 39.1 38.2 (36-46) % MCV 76.1 L 75.3 L (80-100) fL MCH 24.3 L 24.3 L (26-34) PG MCHC 32.0 32.2 (30-36) % RDW 19.8 H 20.1 H (11.6-14.8) % Plt Count 222 223 (150-400) X10^3/uL Neut % (Auto) 89.9 H 92.1 H (50-75) % Lymph % (Auto) 4.4 L 5.5 L (25-40) % [place] % (Auto) 5.5 2.2 L (3-14) % Eos % (Auto) 0.1 L 0.0 L (2-4) % Baso % (Auto) 0.1 0.2 (0-2) % Neut # (Auto) 32232 H 01854 H ([id number]) /uL Lymph # (Auto) 800 L 1000 L ([id number]) /uL [place] # (Auto) 1000 H 400 (0-900) /uL Eos # (Auto) 0 0 (0-450) /uL Baso # (Auto) 0 0 (0-100) /uL RBC Morphology See below Anisocytosis 1+ H PT 11.8 11.7 (9.4-12.5) SECONDS INR 1.0 1.0 (0.9-1.3) APTT 19 L (25.1-36.5) SECONDS Sodium 134 L (137-145) mmol/L Potassium 3.7 (3.4-5.1) mmol/L Chloride 95 L (98-107) mmol/L Carbon Dioxide 32 (22-32) mmol/L BUN 42 H (7-17) mg/dL Creatinine 1.00 (0.52-1.04) mg/dL Estimated GFR 55 L (>60) mL/min BUN/Creatinine Ratio 42.0 H (6-22) Glucose 272 H (70-99) mg/dL POC Whole Bld Glucose 290 H (70-99) mg/dL Lactate 2.3 H 1.9 (0.7-2.1) mmol/L Calcium 8.7 (8.4-10.2) mg/dL Total Bilirubin 0.7 (0.2-1.3) mg/dL AST 26 (14-36) IU/L ALT 18 (<35) IU/L Alkaline Phosphatase 45 (38-126) U/L Troponin I 0.129 H* 0.130 H* (0.01-0.034) ng/mL NT-Pro-B Natriuret Pep 1740 H (<450) pg/mL Total Protein 6.0 L (6.3-8.2) g/dL Albumin 3.6 (3.5-5.0) g/dL Globulin 2.4 (1.7-4.1) g/dL Albumin/Globulin Ratio 1.5 (1.0-2.8) Procalcitonin 0.054 (<0.5) ng/mL Point of Care Testing Glucose POC [address] scan - chest: Radiologist's Impression: PROCEDURE: CT ANGIO CHEST PE PROTOCOL INDICATIONS: +NSTEMI, R chest pain, recent pna, chf TECHNIQUE: After the administration of intravenous contrast, 2 mm thick sections acquired from the pulmonary apices to the posterior costophrenic angles. 3-dimensional maximum intensity projection (MIP) coronal and sagittal reformats were then acquired through the thorax. For radiation dose reduction, the following was used: automated exposure control, adjustment of mA and/or kV according to patient size. COMPARISON: [facility], CT, CT ANGIO CHEST PE PROTOCOL, 01/17/2025, 12:05. FINDINGS: Image quality: Diagnostic. Pulmonary arteries: Pulmonary arteries are normal in size, and demonstrate no intraluminal filling defects to suggest central pulmonary embolism. Lower Neck: No enlarged lymph nodes. Thyroid: No thyroid nodules which require sonographic follow up, per consensus guidelines. Axillae: No enlarged lymph nodes. Chest Wall: There is a subcutaneous density in the medial region of the right breast measuring 3.7 x 2.5 cm Bones: Unremarkable. Lungs and Pleura: No pneumothorax or pleural effusions. Persistent interlobular septal thickening and ground-glass density, mildly improved. Heart: Cardiomegaly. Extensive coronary artery calcifications. No pericardial effusion. Thoracic Vessels: No aortic aneurysm. Mediastinum and Usha: No enlarged lymph nodes. Esophagus: No wall thickening. No hiatal hernia. Upper Abdomen: Visualized upper abdomen solid organs and bowel loops appear normal. IMPRESSION: 1. No signs of pulmonary emboli. 2. Findings suggestive of interstitial and alveolar pulmonary edema, mildly improved, no pleural effusion seen at this time. 3. Persistent subcutaneous density in the right breast medially, please correlate with findings from local examination for the possibility of malignancy. Dictated by: Mohamud Elmore M.D. on 02/03/2025 at 16:21 MDM Narrative Medical decision making narrative: Labs show white count of 19.2, hemoglobin of 12.5 patient has microcytic which appears similar to prior hemoglobin slightly improved from prior, platelets are 222. Patient has predominance of neutrophils. INR is 1, creatinine is 1 with prior on 01/23/2025 of 1.21 sodium is 134 potassium is 3 7 chloride 95 with a CO2 of 32 and a BUN of 42, glucose is 272. Lactate today is 2.3. Initial troponin is elevated at 0.129 patient had indeterminate troponins earlier this month during hospitalization but was never positive. BNP today is 1740 this is almost double patient's BNP during hospitalization which was 956. Chest x-ray shows no acute cardiopulmonary pathology. EKG shows sinus rhythm first-degree AV block rate of 66 MD 210 QRS 86 QTC of 492. No acute ST changes compared to prior 01/17/2025. CT angio chest ordered. Patient's white count is 19 questionably has a component of persistent pneumonia was treated here in the hospital for pneumonia and had changes on CT, I suspect more fluid overload possibly demand ischemia versus NSTEMI causing worsening CHF. We will repeat troponin, patient to be started on anticoagulation, Lasix, aspirin, we will also cover with antibiotic for potential persistent pneumonia. We will repeat CT to evaluate for any progressive pneumonia changes versus edema versus pulmonary embolism patient had recent hospitalization he is on an aspirin daily. Discussed with the patient we will likely require transfer for evaluation with Cardiology. Patient signed out to Dr. Addison. Dr Addison. Care is assumed, chart is reviewed, patient is independently evaluated Chest CT shows interstitial and alveolar pulmonary edema, mildly improved, no pleural effusion seen at this time. incidental finding: Persistent subcutaneous density in the right breast medially, please correlate with findings from local examination for the possibility of malignancy. In summary, 89-year-old woman discharged from 6 day hospital stay on January 22 with acute congestive heart failure, mildly elevated troponin and COPD exacerbation, all symptoms slightly worse since hospital discharge Worsening congestive heart, slightly elevated troponin now with concerns for secondary pneumonia with leukocytosis (however her procalcitonin is not elevated), she is not hypotensive I do not suspect sepsis at this hong. With shared decision-making patient states that she would definitely not want to have another angiogram. She currently has 7 stents. She would much prefer treatment at [facility] and is alert appropriate and very reasonable in that request. will talk to our hospitalist service. Critical Care Time <Cherry Riggins, DO - Last Filed: 02/09/25 20:45> Critical Care Time Critical Care Time: Yes Attestation: The high probability of a clinically significant, sudden or life threatening deterioration of the cardiac/pulmonary system(s) required my full and direct attention, intervention and personal management. The aggregate critical care time was [--] minutes. This time is in addition to time spent performing reported procedures but includes the following: [x] Data Review and interpretation [x] Patient assessment and monitoring of vital signs [x] Documentation [x] Medication orders and management <Bhumi Addison MD - Last Filed: 02/03/25 17:21> Critical Care Time Total Critical Care Time: 37 Discharge Plan Departure Patient Disposition: Admitted As Inpatient Clinical Impression: Elevated troponin Acute CHF Qualifiers: Heart failure type: unspecified Qualified Code(s): I50.9 - Heart failure, unspecified Pneumonia Qualifiers: Pneumonia type: due to unspecified organism Admit Date/Time: 02/03/25 17:24 Admit Provider: William Velázquez
--- NOTE | 2025-02-03 14:08 | CM.SWNOTE ---
ED REFERRAL NURSE Note: REFERRAL NURSE received a call from YOLY Luna Coordinator at [facility]. She states the patient has established services with them currently and they will be following discharge plans. KOLBY MelendezSW
--- NOTE | 2025-02-03 14:27 | DI.CT.S_ITS ---
PROCEDURE: CT ANGIO CHEST PE PROTOCOL INDICATIONS: +NSTEMI, R chest pain, recent pna, chf TECHNIQUE: After the administration of intravenous contrast, 2 mm thick sections acquired from the pulmonary apices to the posterior costophrenic angles. 3-dimensional maximum intensity projection (MIP) coronal and sagittal reformats were then acquired through the thorax. For radiation dose reduction, the following was used: automated exposure control, adjustment of mA and/or kV according to patient size. COMPARISON: [facility], CT, CT ANGIO CHEST PE PROTOCOL, 01/17/2025, 12:05. FINDINGS: Image quality: Diagnostic. Pulmonary arteries: Pulmonary arteries are normal in size, and demonstrate no intraluminal filling defects to suggest central pulmonary embolism. Lower Neck: No enlarged lymph nodes. Thyroid: No thyroid nodules which require sonographic follow up, per consensus guidelines. Axillae: No enlarged lymph nodes. Chest Wall: There is a subcutaneous density in the medial region of the right breast measuring 3.7 x 2.5 cm Bones: Unremarkable. Lungs and Pleura: No pneumothorax or pleural effusions. Persistent interlobular septal thickening and ground-glass density, mildly improved. Heart: Cardiomegaly. Extensive coronary artery calcifications. No pericardial effusion. Thoracic Vessels: No aortic aneurysm. Mediastinum and Usha: No enlarged lymph nodes. Esophagus: No wall thickening. No hiatal hernia. Upper Abdomen: Visualized upper abdomen solid organs and bowel loops appear normal. IMPRESSION: 1. No signs of pulmonary emboli. 2. Findings suggestive of interstitial and alveolar pulmonary edema, mildly improved, no pleural effusion seen at this time. 3. Persistent subcutaneous density in the right breast medially, please correlate with findings from local examination for the possibility of malignancy. Dictated by: Mohamud Elmore M.D. on 02/03/2025 at 16:21 Approved by: Mohamud Elmore M.D. on 02/03/2025 at 16:27
[2025-02-03 14:34] LABS: Reflexed Lactate in 2 Hours Y
[2025-02-03] MEDS: ASPIRIN 81 MG CHEW TAB 324 MG PO (14:48)
[2025-02-03] MEDS: diphenhydrAMINE 50 MG/ML VIAL IV (14:49)
[2025-02-03] MEDS: methylPREDNISolone succ 125 MG/2 ML VIAL IV (14:50)
[2025-02-03] MEDS: FUROSEMIDE 40 MG/4 ML VIAL IV ×2 (14:53→23:14)
[2025-02-03] MEDS: PIPERACILLIN/TAZO 4.5 GM in SODIUM CHLORIDE 0.9% 100 ML IV (14:56)
--- NOTE | 2025-02-03 15:06 | EKG_ITS ---
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
[2025-02-03 15:15] LABS: INR 1.0 (0.9-1.3); Prothrombin Time 11.7 SECONDS (9.4-12.5)
[2025-02-03 15:22] LABS: Add Manual Diff / Slide Review NO; Hematocrit 38.2 % (36-46); Hemoglobin 12.3 g/dL (12.0-16.0); Lymphocytes Absolute Auto 1000 /uL (1100-4500); Mean Corpuscular HGB Conc 32.2 % (30-36); Mean Corpuscular Hemoglobin 24.3 PG (26-34); Mean Corpuscular Volume 75.3 fL (80-100); Platelet Count 223 X10^3/uL (150-400)
[2025-02-03] MEDS: HEPARIN 5,000 UNIT/ML VIAL 5000 UNIT IV (15:24)
[2025-02-03 15:27] LABS: Lactate 2HR (Lactic Acid Rflx) 1.9 mmol/L (0.7-2.1)
[2025-02-03] MEDS: HEPARIN DRIP 25,000 UNIT/500 ML IV.SOLN 19.563 UNIT IV (15:29)
[2025-02-03 15:35] LABS: PTT Partial Thromboplastin Tim 19 SECONDS (25.1-36.5)
[2025-02-03 15:44] LABS: Troponin I 0.130 ng/mL (0.01-0.034)
[2025-02-03 16:22] LABS: Procalcitonin 0.054 ng/mL (<0.5)
[2025-02-03 16:24] LABS: Anisocytosis 1+
--- NOTE | 2025-02-03 18:47 | PM.HP.1 ---
History of Present Illness History of Present Illness Date Patient Seen: 02/03/25 Time Patient Seen: 18:47 Chief complaint: confusion, SOB, CHF Narrative: She was an 89-year-old female with history of COPD, chronic hypoxic respiratory failure, CAD and 6 cardiac stents. She was in the hospital from January 17 to and was treated for heart failure as well as COPD exacerbation. She would well for about a week and then has developed recurrent shortness a breath. She was on her baseline 3 L of oxygen has some rhinorrhea and a cough. She does have some leg edema and notes that she has difficulty with oral Lasix causing a diuresis and in fact her legs tend to feel heavier. In the ED, her troponins were elevated she was started on a heparin drip. In addition, she was given antibiotics for possible infection and bronchodilators. She denies any chest pain. She was mixed feelings about ongoing cardiac procedures but would likely consider a repeat coronary angiogram if her special effects specialist Dr. Ellington recommended it. [facility] Medical History Chronic respiratory failure with hypoxia Skin cancer NSTEMI (non-ST elevated myocardial infarction) Diastolic heart failure Cardiac arrest Chest pain Hypertension Hyperlipidemia Coronary artery disease Left hamstring muscle strain UTI (urinary tract infection) Surgical History H/O right heart catheterization History of breast implant removal History of breast surgery History of appendectomy History of cholecystectomy History of total abdominal hysterectomy History of coronary artery stent placement Family History Father Hypertension Diabetes mellitus Mother Hypertension NE (myocardial infarction) Sister NE (myocardial infarction) S/P CABG x 4 Social History household members: children Smoking Status: Never smoker alcohol intake: never Meds Home Medications and Allergies Home Medications ?Medication ?Instructions ?Recorded ?Confirmed ?Type aspirin 81 mg tablet,delayed 81 mg PO DAILY ##0 05/14/17 01/17/25 History release nitroglycerin 0.4 mg sublingual 1 tab sublingual [id number] PRN Chest 11/18/18 01/17/25 History tablet Pain rosuvastatin 40 mg tablet 40 mg PO QPM 11/18/18 01/17/25 History escitalopram oxalate 20 mg tablet 20 mg PO DAILY 03/06/21 01/17/25 History pantoprazole 40 mg tablet,delayed 40 mg PO DAILY 03/06/21 01/17/25 History release metoprolol tartrate 25 mg tablet 12.5 mg PO BID 01/31/24 01/17/25 History acetaminophen 300 mg-codeine 30 mg 1 tab PO BID PRN pain 07/03/24 01/17/25 History tablet ipratropium 0.5 mg-albuterol 3 mg 3 ml inhalation DIRECTED PRN 07/03/24 01/17/25 History (2.5 mg base)/3 mL nebulization sob, wheezing soln ranolazine 500 mg tablet,extended 500 mg PO BID 07/03/24 01/21/25 History release,12 hr prednisone 10 mg tablet 25 mg PO DIRECTED 01/17/25 01/21/25 History azithromycin 500 mg tablet 500 mg PO DAILY 180 days #90 tabs 01/23/25 Rx furosemide 40 mg tablet 40 mg PO BID #180 tabs 01/23/25 Rx guaifenesin 600 mg tablet, 600 mg PO BID #60 tabs 01/23/25 Rx extended release 12 hr (Mucus Relief ER) insulin glargine 100 unit/mL (3 20 unit (0.2 mL) SUBCUT BEDTIME 01/23/25 Rx mL) subcutaneous pen (Lantus #30 mL Solostar U-100 Insulin) insulin lispro 100 unit/mL 0 unit (0 mL) SUBCUT ACHS #30 mL 01/23/25 Rx subcutaneous solution (Admelog U-100 Insulin lispro) insulin lispro 100 unit/mL 7 unit (0.07 mL) SUBCUT AC #30 mL 01/23/25 Rx subcutaneous solution (Admelog U-100 Insulin lispro) miscellaneous medical supply #100 ea 01/23/25 Rx nystatin 100,000 unit/gram topical 1 applic topical BID #120 grams 01/23/25 Rx ointment nystatin 100,000 unit/mL oral 100,000 unit PO QID #500 mL 01/23/25 Rx suspension prednisone 20 mg tablet See Rx Instructions .Route 01/23/25 Rx .COMPLEX #100 tabs Allergies Allergy/AdvReac Type Severity Reaction Status Date / Time Iodinated Contrast Media Allergy Severe Unconscious Verified 12/15/24 12:43 (IODINATED CONTRAST- ORAL AND IV DYE) morphine (MORPHINE) Allergy Severe Rash Verified 12/15/24 12:43 telmisartan (TELMISARTAN) Allergy Severe Rash Verified 12/15/24 12:43 Review of Systems Review of Systems Narrative: All else reviewed and otherwise unremarkable except as noted in the history and physical. Exam Vital Signs (past 8 hours): - 02/03/25 12:12 02/03/25 12:17 02/03/25 12:17 Temperature Pulse Rate 67 67 Respiratory Rate Blood Pressure 187/82 H Pulse Oximetry 96 99 Oxygen Delivery Method Nasal Cannula Nasal Cannula Oxygen Flow Rate 3 3 02/03/25 12:21 02/03/25 12:30 02/03/25 12:31 Temperature 98.7 F Pulse Rate 66 63 63 Respiratory Rate 24 15 20 Blood Pressure 187/82 H Pulse Oximetry 99 99 99 Oxygen Delivery Method Nasal Cannula Nasal Cannula Nasal Cannula Oxygen Flow Rate 9 3 3 02/03/25 12:31 02/03/25 13:00 02/03/25 13:00 Temperature Pulse Rate 62 Respiratory Rate 11 L Blood Pressure 163/71 H 162/70 H Pulse Oximetry 99 Oxygen Delivery Method Nasal Cannula Oxygen Flow Rate 3 02/03/25 13:30 02/03/25 13:30 02/03/25 14:00 Temperature Pulse Rate 61 62 Respiratory Rate Blood Pressure 150/65 H Pulse Oximetry 98 99 Oxygen Delivery Method Nasal Cannula Nasal Cannula Oxygen Flow Rate 3 3 02/03/25 14:00 02/03/25 14:30 02/03/25 14:31 Temperature Pulse Rate 62 62 Respiratory Rate 19 12 Blood Pressure 157/72 H Pulse Oximetry 98 99 Oxygen Delivery Method Nasal Cannula Nasal Cannula Oxygen Flow Rate 3 3 02/03/25 14:31 02/03/25 15:00 02/03/25 15:30 Temperature Pulse Rate 65 67 Respiratory Rate 21 Blood Pressure 150/67 H Pulse Oximetry 98 Oxygen Delivery Method Nasal Cannula Oxygen Flow Rate 3 02/03/25 15:52 02/03/25 15:52 02/03/25 16:00 Temperature Pulse Rate 66 66 Respiratory Rate 14 24 Blood Pressure 160/72 H Pulse Oximetry 98 98 Oxygen Delivery Method Nasal Cannula Nasal Cannula Oxygen Flow Rate 3 3 02/03/25 16:00 02/03/25 16:30 02/03/25 16:31 Temperature Pulse Rate 70 68 Respiratory Rate Blood Pressure 142/65 H Pulse Oximetry 97 99 Oxygen Delivery Method Nasal Cannula Nasal Cannula Oxygen Flow Rate 3 3 02/03/25 16:31 02/03/25 17:00 02/03/25 17:01 Temperature Pulse Rate 64 64 Respiratory Rate 17 14 Blood Pressure 133/73 Pulse Oximetry 99 99 Oxygen Delivery Method Nasal Cannula Nasal Cannula Oxygen Flow Rate 3 3 02/03/25 17:01 02/03/25 17:30 02/03/25 17:31 Temperature Pulse Rate 69 70 Respiratory Rate 14 16 Blood Pressure 164/73 H Pulse Oximetry 99 99 Oxygen Delivery Method Nasal Cannula Nasal Cannula Oxygen Flow Rate 3 3 02/03/25 17:31 02/03/25 18:00 02/03/25 18:00 Temperature Pulse Rate 72 Respiratory Rate 18 Blood Pressure 143/64 H 147/61 H Pulse Oximetry 99 Oxygen Delivery Method Nasal Cannula Oxygen Flow Rate 3 Oxygen Delivery Method Nasal Cannula Oxygen Flow Rate 3 Narrative Exam Narrative: NAD, alert and oriented, fluent speech, calm. Normocephalic skull, EOMI, anicteric sclera, symmetric pupils. Oropharynx unremarkable, no droop. Neck supple, midline trachea, no adenopathy. Lungs clear, normal rate and effort. Heart regular, no murmur gallop or rub. Abdomen is soft, non distended and non tender. Extremities are with 2+ edema. Skin is free of rash or lesions. Joints are not swollen or deformed. Judgment appears to be normal. Objective ECG Impression: Intervals [place] Rate: 66 P: 66 MT: 210 QRS: 81 QRSD: 86 T: 62 QT: 470 QTc: 492 Interpretive Statements Sinus rhythm with 1st degree AV block Prolonged QT Imaging Multiple studies: : Radiologist's impression: Chest CTA: 1. No signs of pulmonary emboli. 2. Findings suggestive of interstitial and alveolar pulmonary edema, mildly improved, no pleural effusion seen at this time. 3. Persistent subcutaneous density in the right breast medially, please correlate with findings from local examination for the possibility of malignancy. CXR: No acute cardiopulmonary pathology. Labs 02/03/25 14:52 02/03/25 12:45 Labs: Laboratory Results - last 24 hr 02/03/25 02/03/25 02/03/25 12:41 12:45 14:52 WBC 19.2 H 17.9 H RBC 5.13 5.07 Hgb 12.5 12.3 Hct 39.1 38.2 MCV 76.1 L 75.3 L MCH 24.3 L 24.3 L MCHC 32.0 32.2 RDW 19.8 H 20.1 H Plt Count 222 223 Neut % (Auto) 89.9 H 92.1 H Lymph % (Auto) 4.4 L 5.5 L Richardson % (Auto) 5.5 2.2 L Eos % (Auto) 0.1 L 0.0 L Baso % (Auto) 0.1 0.2 Neut # (Auto) 35010 H 59525 H Lymph # (Auto) 800 L 1000 L Richardson # (Auto) 1000 H 400 Eos # (Auto) 0 0 Baso # (Auto) 0 0 RBC Morphology See below Anisocytosis 1+ H PT 11.8 11.7 INR 1.0 1.0 APTT 19 L Sodium 134 L Potassium 3.7 Chloride 95 L Carbon Dioxide 32 BUN 42 H Creatinine 1.00 Estimated GFR 55 L BUN/Creatinine Ratio 42.0 H Glucose 272 H POC Whole Bld Glucose 290 H Lactate 2.3 H 1.9 Calcium 8.7 Total Bilirubin 0.7 AST 26 ALT 18 Alkaline Phosphatase 45 Troponin I 0.129 H* 0.130 H* NT-Pro-B Natriuret Pep 1740 H Total Protein 6.0 L Albumin 3.6 Globulin 2.4 Albumin/Globulin Ratio 1.5 Procalcitonin 0.054 Assessment & Plan Assessment & Plan narrative: 1. Acute diastolic heart failure, active. 2. Demand ischemia, active. 3. Chronic hypoxic respiratory failure, stable. 4. Possible component of COPD exacerbation, active. 5. CAD with 6 previous cardiac stents, active. 6. Hypertension, active. 7. Hyperlipidemia, active. Plan: -heparin drip for 48 hours, continue other chronic medical therapy. -trend troponins. -diurese. -continue prednisone at current dosing of 25 mg a day. -bronchodilators as needed. -usual insulin glargine and Lantus for sugar control. -review with her special effects specialist tomorrow. She was full code Daughter is proxy decision maker. Anticipate at least 2 midnights in the hospital, supporting inpatient status. Time-Based Coding :: 35 min spent with patient and on the chart (including review of chart, obtaining history, exam, reviewing outside data, placing orders, documenting exam and treatment plan, and counseling patient) on 02/03. Quality MIPS - Admit I confirm the patient?s Advance Care Plan is present, Code status is documented, Surrogate decision maker is in patient?s record [If Yes, STOP here]: Yes MIPS - Meds 'Current medications' to include all prescriptions, [id number] products, herbals, cannabis/cannabidiol products, and vitamin/mineral/dietary (nutritional) supplements. I have utilized all available resources to obtain, update, or review the patient?s current medications. [If Yes, STOP here]: Yes
[2025-02-03] MEDS: METOPROLOL IR 25 MG TABLET 12.5 MG PO (20:56)
[2025-02-03] MEDS: ATORVASTATIN 20 MG TABLET 80 MG PO (20:56)
[2025-02-03] MEDS: RANOLAZINE 500 MG TAB.ER.12H PO (20:58)
[2025-02-03] MEDS: INSULIN LISPRO 100 UNIT/ML 3ML VIAL SUBCUT (21:09)
[2025-02-03] MEDS: INSULIN GLARGINE 100 UNIT/ML 3ML PEN 15 UNIT SUBCUT (21:10)
[2025-02-03 22:25] LABS: PTT Partial Thromboplastin Tim 102 SECONDS (25.1-36.5)
[2025-02-03 22:35] LABS: Troponin I 0.131 ng/mL (0.01-0.034)
[2025-02-03 22:40] LABS: Glucose 459 mg/dL (70-99)
[2025-02-03] MEDS: INSULIN REGULAR 100 UNIT/ML 3 ML VIAL 15 UNIT SUBCUT (23:14)
[2025-02-04] VITALS (8 sets, daily range): BP systolic 109–175; BP diastolic 61–82; PULSE 62–77; RESP 14–18; TEMP 36–36.8; O2SAT 95–99
[2025-02-04] MEDS: INSULIN REGULAR 100 UNIT/ML 3 ML VIAL 10 UNIT SUBCUT (02:49)
[2025-02-04 06:27] LABS: Hematocrit 36.2 % (36-46); Hemoglobin 11.8 g/dL (12.0-16.0); Platelet Count 195 X10^3/uL (150-400)
[2025-02-04 06:38] LABS: PTT Partial Thromboplastin Tim 56 SECONDS (25.1-36.5)
--- NOTE | 2025-02-04 07:30 | PM.PN.1 ---
Subjective Subjective Interval history: Summary: S: 02/03 admit, She is an 89-year-old female with history of COPD, chronic hypoxic respiratory failure, CAD and 6 cardiac stents. She was in the hospital from January 17 to and was treated for heart failure as well as COPD exacerbation. She would well for about a week and then has developed recurrent shortness a breath. She was on her baseline 3 L of oxygen has some rhinorrhea and a cough. She does have some leg edema and notes that she has difficulty with oral Lasix causing a diuresis and in fact her legs tend to feel heavier. In the ED, her troponins were elevated she was started on a heparin drip. In addition, she was given antibiotics for possible infection and bronchodilators. She denies any chest pain. She was mixed feelings about ongoing cardiac procedures but would likely consider a repeat coronary angiogram if her cook's assistant Dr. Ellington recommended it. troponins: 0.129, 0.130, 0.131. S: Remains on a heparin drip, has completed 24 hours and can stop after 48. No chest pain, but quite fatigued. Mild dyspnea and a dry cough. ECG: Intervals [place] Rate: 66 P: 66 CA: 210 QRS: 81 QRSD: 86 T: 62 QT: 470 QTc: 492 Interpretive Statements Sinus rhythm with 1st degree AV block Prolonged QT O: NAD, alert and oriented. Fluent speech. Lungs are clear, normal rate and effort. Heart is regular, no murmur gallop or rub. Abdomen is soft, non distended. Extremities are wtih 1+ edema. Imaging: Chest CTA: 1. No signs of pulmonary emboli. 2. Findings suggestive of interstitial and alveolar pulmonary edema, mildly improved, no pleural effusion seen at this time. 3. Persistent subcutaneous density in the right breast medially, please correlate with findings from local examination for the possibility of malignancy. CXR: No acute cardiopulmonary pathology. A/P: 1. Acute diastolic heart failure, active. 2. Demand ischemia, active. 3. Chronic hypoxic respiratory failure, stable. 4. Possible component of COPD exacerbation, active. 5. CAD with 6 previous cardiac stents, active. 6. Hypertension, active. 7. Hyperlipidemia, active. PLAN: -heparin drip for 48 hours, continue other chronic medical therapy. -diurese with Lasix 40 IV q.12. -continue prednisone at current dosing of 25 mg a day. -bronchodilators as needed. -usual insulin glargine (20 HS) and Lispro (7 AC) for sugar control. -reviewed with her cook's assistant, Dr. Ellington. Recommends outpatient follow up with consideration of repeat coronary angiogram. This was shared with the patient today. She was full code Daughter is proxy decision maker. Anticipate at least 2 midnights in the hospital, supporting inpatient status. Exam Vital Signs (past 8 hours): - 02/04/25 00:00 02/04/25 04:31 Temperature 97.5 F L 96.9 F L Pulse Rate 62 69 Respiratory Rate 18 17 Blood Pressure 140/69 151/76 H Pulse Oximetry 98 98 Fraction of Inspired Oxygen 32 SaO2/FiO2 Ratio 306 Oxygen Delivery Method Nasal Cannula Oxygen Flow Rate 3 Objective Labs 02/04/25 06:10 02/03/25 21:54 Labs: Laboratory Results - last 24 hr 02/03/25 02/03/25 02/03/25 12:41 12:45 14:52 WBC 19.2 H 17.9 H RBC 5.13 5.07 Hgb 12.5 12.3 Hct 39.1 38.2 MCV 76.1 L 75.3 L MCH 24.3 L 24.3 L MCHC 32.0 32.2 RDW 19.8 H 20.1 H Plt Count 222 223 Neut % (Auto) 89.9 H 92.1 H Lymph % (Auto) 4.4 L 5.5 L [place] % (Auto) 5.5 2.2 L Eos % (Auto) 0.1 L 0.0 L Baso % (Auto) 0.1 0.2 Neut # (Auto) 93830 H 10653 H Lymph # (Auto) 800 L 1000 L [place] # (Auto) 1000 H 400 Eos # (Auto) 0 0 Baso # (Auto) 0 0 RBC Morphology See below Anisocytosis 1+ H PT 11.8 11.7 INR 1.0 1.0 APTT 19 L Sodium 134 L Potassium 3.7 Chloride 95 L Carbon Dioxide 32 BUN 42 H Creatinine 1.00 Estimated GFR 55 L BUN/Creatinine Ratio 42.0 H Glucose 272 H POC Whole Bld Glucose 290 H Lactate 2.3 H 1.9 Calcium 8.7 Total Bilirubin 0.7 AST 26 ALT 18 Alkaline Phosphatase 45 Troponin I 0.129 H* 0.130 H* NT-Pro-B Natriuret Pep 1740 H Total Protein 6.0 L Albumin 3.6 Globulin 2.4 Albumin/Globulin Ratio 1.5 Procalcitonin 0.054 02/03/25 02/03/25 02/03/25 20:27 21:46 21:54 WBC RBC Hgb Hct MCV MCH MCHC RDW Plt Count Neut % (Auto) Lymph % (Auto) [place] % (Auto) Eos % (Auto) Baso % (Auto) Neut # (Auto) Lymph # (Auto) [place] # (Auto) Eos # (Auto) Baso # (Auto) RBC Morphology Anisocytosis PT INR APTT 102 H* D Sodium Potassium Chloride Carbon Dioxide BUN Creatinine Estimated GFR BUN/Creatinine Ratio Glucose 459 H* D POC Whole Bld Glucose > 500 H* D > 500 H* Lactate Calcium Total Bilirubin AST ALT Alkaline Phosphatase Troponin I 0.131 H* NT-Pro-B Natriuret Pep Total Protein Albumin Globulin Albumin/Globulin Ratio Procalcitonin 02/03/25 02/04/25 02/04/25 23:55 02:11 04:23 WBC RBC Hgb Hct MCV MCH MCHC RDW Plt Count Neut % (Auto) Lymph % (Auto) [place] % (Auto) Eos % (Auto) Baso % (Auto) Neut # (Auto) Lymph # (Auto) [place] # (Auto) Eos # (Auto) Baso # (Auto) RBC Morphology Anisocytosis PT INR APTT Sodium Potassium Chloride Carbon Dioxide BUN Creatinine Estimated GFR BUN/Creatinine Ratio Glucose POC Whole Bld Glucose 401 H 332 H 305 H Lactate Calcium Total Bilirubin AST ALT Alkaline Phosphatase Troponin I NT-Pro-B Natriuret Pep Total Protein Albumin Globulin Albumin/Globulin Ratio Procalcitonin 02/04/25 06:10 WBC RBC Hgb 11.8 L Hct 36.2 MCV MCH MCHC RDW Plt Count 195 Neut % (Auto) Lymph % (Auto) [place] % (Auto) Eos % (Auto) Baso % (Auto) Neut # (Auto) Lymph # (Auto) [place] # (Auto) Eos # (Auto) Baso # (Auto) RBC Morphology Anisocytosis PT INR APTT 56 H D Sodium Potassium Chloride Carbon Dioxide BUN Creatinine Estimated GFR BUN/Creatinine Ratio Glucose POC Whole Bld Glucose Lactate Calcium Total Bilirubin AST ALT Alkaline Phosphatase Troponin I NT-Pro-B Natriuret Pep Total Protein Albumin Globulin Albumin/Globulin Ratio Procalcitonin [facility] Medical History Chronic respiratory failure with hypoxia Skin cancer NSTEMI (non-ST elevated myocardial infarction) Diastolic heart failure Cardiac arrest Chest pain Hypertension Hyperlipidemia Coronary artery disease Left hamstring muscle strain UTI (urinary tract infection) Surgical History H/O right heart catheterization History of breast implant removal History of breast surgery History of appendectomy History of cholecystectomy History of total abdominal hysterectomy History of coronary artery stent placement Family History Father Hypertension Diabetes mellitus Mother Hypertension [place] (myocardial infarction) Sister [place] (myocardial infarction) S/P CABG x 4 Social History household members: children Smoking Status: Never smoker alcohol intake: never Assessment & Plan Time-Based Coding :: [TOTAL MINUTES] spent with patient and on the chart (including review of chart, obtaining history, exam, reviewing outside data, placing orders, documenting exam and treatment plan, and counseling patient) on [DATE].
[2025-02-04] MEDS: INSULIN LISPRO 100 UNIT/ML 3ML VIAL SUBCUT ×5 (08:05→20:29)
[2025-02-04] MEDS: METOPROLOL IR 25 MG TABLET 12.5 MG PO ×2 (10:18→20:54)
[2025-02-04] MEDS: ESCITALOPRAM 10 MG TABLET 20 MG PO (10:19)
[2025-02-04] MEDS: RANOLAZINE 500 MG TAB.ER.12H PO ×2 (10:19→20:54)
[2025-02-04] MEDS: ASPIRIN EC 81 MG TABLET PO (10:19)
[2025-02-04] MEDS: INSULIN GLARGINE 100 UNIT/ML 3ML PEN SUBCUT (12:03)
[2025-02-04 12:51] LABS: PTT Partial Thromboplastin Tim 41 SECONDS (25.1-36.5)
[2025-02-04] MEDS: HEPARIN 5,000 UNIT/ML VIAL 2500 UNIT IV (13:40)
[2025-02-04] MEDS: FUROSEMIDE 40 MG/4 ML VIAL IV ×2 (13:41→23:06)
[2025-02-04 14:24] LABS: Hemoglobin A1C% w Est Avg Glu 9.1 % (4.0-6.0)
--- NOTE | 2025-02-04 16:40 | DIET.CONS2 ---
Dietary Inpatient Consultation Note Admission Date: 02/03/2025 17:24 Received call from RN that pt had questions about CGM. Met with pt and daughter. They have noted inaccurate readings from the CGM based on finger pricks. Discussed calibration of dexcom director of diversity and inclusion as needed and provided instructions. Encouraged finger pricks as always most accurate and to check with those if suspecting CGM is inaccurate. Diet: 02/03/25 Dinner Carbohydrate Consistent Diet Diet Modifications: Carbohydrate level: Medium (3 CHO) Reflex DM orders: No Food Texture: Level 7 - Regular Liquid Consistency: Level 0 - Thin 02/04/25 Dinner Courtesy Tray (Peds, comfort care) Diet Modifications: Nutrition Percent Meal Consumed 100% 02/04/25 13:10 Electronically Signed by: Dori Barrera 02/04/25 16:40 Clinical Dietitian [address] [id number]
[2025-02-04] MEDS: INSULIN LISPRO 100 UNIT/ML 3ML VIAL 7 UNIT SUBCUT (17:10)
[2025-02-04 20:05] LABS: PTT Partial Thromboplastin Tim 83 SECONDS (25.1-36.5)
[2025-02-04] MEDS: INSULIN GLARGINE 100 UNIT/ML 3ML PEN 30 UNIT SUBCUT (20:26)
[2025-02-04] MEDS: ATORVASTATIN 20 MG TABLET 80 MG PO (20:54)
[2025-02-05] VITALS (8 sets, daily range): BP systolic 139–171; BP diastolic 57–85; PULSE 60–77; RESP 16–22; TEMP 35.7–36.2; O2SAT 97–100
[2025-02-05 02:50] LABS: Hematocrit 35.3 % (36-46); Hemoglobin 11.5 g/dL (12.0-16.0); Platelet Count 168 X10^3/uL (150-400)
[2025-02-05 02:55] LABS: PTT Partial Thromboplastin Tim 53 SECONDS (25.1-36.5)
[2025-02-05 02:56] LABS: Blood Urea Nitrogen 38 mg/dL (7-17); Calcium 8.4 mg/dL (8.4-10.2); Carbon Dioxide 35 mmol/L (22-32); Chloride 93 mmol/L (98-107); Estimated Glomerular Filt Rate 50 mL/min (>60); Glucose 129 mg/dL (70-99); HEMOLYSIS < 15 (0-50); Potassium 3.1 mmol/L (3.4-5.1); Sodium 132 mmol/L (137-145)
[2025-02-05 03:14] LABS: Magnesium 2.2 mg/dL (1.6-2.3)
[2025-02-05] MEDS: HEPARIN DRIP 25,000 UNIT/500 ML IV.SOLN 11.326 UNIT IV (04:56)
--- NOTE | 2025-02-05 08:03 | PM.PN.1 ---
Subjective Subjective Date Patient Seen: 02/05/25 Interval history: 02/03 admit, She is an 89-year-old female with history of COPD, chronic hypoxic respiratory failure, CAD and 6 cardiac stents. She was in the hospital from January 17 to and was treated for heart failure as well as COPD exacerbation. She would well for about a week and then has developed recurrent shortness a breath. She was on her baseline 3 L of oxygen has some rhinorrhea and a cough. She does have some leg edema and notes that she has difficulty with oral Lasix causing a diuresis and in fact her legs tend to feel heavier. In the ED, her troponins were elevated she was started on a heparin drip. In addition, she was given antibiotics for possible infection and bronchodilators. She denies any chest pain. She was mixed feelings about ongoing cardiac procedures but would likely consider a repeat coronary angiogram if her blankbook forwarder Dr. Ellington recommended it. troponins: 0.129, 0.130, 0.131. S: 02/05 Remains on a heparin drip, completing 48 hours this afternoon. No chest pain, but quite fatigued. Mild dyspnea and a dry cough. She has not been back to her baseline walking in her room yet but has been able to transfer to the bedside chair. She tells me that she lives in [place] with her son and follows up with [facility] in [place]. She will be started on PT/OT today. She remains on oxygen at her baseline of 3-4 L. Her family are hoping to take her on a road trip in their RV within the next 2 weeks. The potassium is 3.1. This will be supplemented with 20 mEq p.o. b.i.d.. Imaging: Chest CTA: 1. No signs of pulmonary emboli. 2. Findings suggestive of interstitial and alveolar pulmonary edema, mildly improved, no pleural effusion seen at this time. 3. Persistent subcutaneous density in the right breast medially, please correlate with findings from local examination for the possibility of malignancy. CXR: No acute cardiopulmonary pathology. A/P: 1. Acute diastolic heart failure, active. 2. Demand ischemia, active. 3. Chronic hypoxic respiratory failure, stable. 4. Possible component of COPD exacerbation, active. 5. CAD with 6 previous cardiac stents, active. 6. Hypertension, active. 7. Hyperlipidemia, active. 8. Hypokalemia: K 3.1 on 02/05. Begin Oral Kcl. 9. CT scan Right Breast abnormality, correlate with PCP exam as an outpatient. PLAN: -heparin drip for 48 hours completed, continue other chronic medical therapy. -diurese with Lasix 40 mg IV q.12. -supplement for hypokalemia -continue prednisone at current dosing of 25 mg a day. -bronchodilators as needed. -usual insulin glargine (20 HS) and Lispro (7 AC) for sugar control. -reviewed with her blankbook forwarder, Dr. Ellington. Recommends outpatient follow up with consideration of repeat coronary angiogram. -PT/OT for placement requirements She is full code Daughter is proxy decision maker. Exam Vital Signs (past 8 hours): - 02/05/25 04:00 Temperature 97.2 F L Pulse Rate 61 Respiratory Rate 16 Blood Pressure 142/60 H Pulse Oximetry 98 Oxygen Flow Rate 3 Fraction of Inspired Oxygen 32 SaO2/FiO2 Ratio 309 Oxygen Delivery Method Nasal Cannula Oxygen Flow Rate 3 Narrative Exam Narrative: Heart is regular rate and rhythm without murmur Lungs have left base crackles Extremities have no ankle edema She looks very weak but is alert and oriented x3, in no apparent distress. Objective Labs 02/05/25 02:29 02/05/25 02:29 Labs: Laboratory Results - last 24 hr 02/04/25 02/04/25 02/04/25 06:10 11:48 12:20 Hgb Hct Plt Count APTT 41 H D Sodium Potassium Chloride Carbon Dioxide BUN Creatinine Estimated GFR BUN/Creatinine Ratio Glucose POC Whole Bld Glucose 279 H Hemoglobin A1c 9.1 H Calcium Magnesium 02/04/25 02/04/25 02/04/25 16:35 19:30 20:21 Hgb Hct Plt Count APTT 83 H* D Sodium Potassium Chloride Carbon Dioxide BUN Creatinine Estimated GFR BUN/Creatinine Ratio Glucose POC Whole Bld Glucose 366 H 336 H Hemoglobin A1c Calcium Magnesium 02/05/25 02/05/25 02:29 07:51 Hgb 11.5 L Hct 35.3 L Plt Count 168 APTT 53 H D Sodium 132 L Potassium 3.1 L Chloride 93 L Carbon Dioxide 35 H BUN 38 H Creatinine 1.08 H Estimated GFR 50 L BUN/Creatinine Ratio 35.2 H Glucose 129 H D POC Whole Bld Glucose 78 D Hemoglobin A1c Calcium 8.4 Magnesium 2.2 PFSH Medical History Chronic respiratory failure with hypoxia Skin cancer NSTEMI (non-ST elevated myocardial infarction) Diastolic heart failure Cardiac arrest Chest pain Hypertension Hyperlipidemia Coronary artery disease Left hamstring muscle strain UTI (urinary tract infection) Surgical History H/O right heart catheterization History of breast implant removal History of breast surgery History of appendectomy History of cholecystectomy History of total abdominal hysterectomy History of coronary artery stent placement Family History Father Hypertension Diabetes mellitus Mother Hypertension [place] (myocardial infarction) Sister [place] (myocardial infarction) S/P CABG x 4 Social History household members: children Smoking Status: Never smoker alcohol intake: never Assessment & Plan Time-Based Coding :: [TOTAL MINUTES] spent with patient and on the chart (including review of chart, obtaining history, exam, reviewing outside data, placing orders, documenting exam and treatment plan, and counseling patient) on [DATE].
[2025-02-05] MEDS: INSULIN LISPRO 100 UNIT/ML 3ML VIAL 7 UNIT SUBCUT ×3 (08:26→16:59)
[2025-02-05 09:03] LABS: PTT Partial Thromboplastin Tim 41 SECONDS (25.1-36.5)
[2025-02-05] MEDS: ASPIRIN EC 81 MG TABLET PO (09:19)
[2025-02-05] MEDS: RANOLAZINE 500 MG TAB.ER.12H PO ×2 (09:19→21:28)
[2025-02-05] MEDS: METOPROLOL IR 25 MG TABLET 12.5 MG PO ×2 (09:20→21:28)
[2025-02-05] MEDS: ESCITALOPRAM 10 MG TABLET 20 MG PO (09:20)
[2025-02-05] MEDS: POTASSIUM CHLORIDE 20 MEQ TAB 40 MEQ PO (09:39)
[2025-02-05] MEDS: FUROSEMIDE 40 MG/4 ML VIAL IV ×2 (09:40→17:36)
[2025-02-05] MEDS: HEPARIN 5,000 UNIT/ML VIAL 2500 UNIT IV (10:13)
[2025-02-05] MEDS: INSULIN LISPRO 100 UNIT/ML 3ML VIAL SUBCUT ×3 (11:57→21:28)
--- NOTE | 2025-02-05 12:25 | OT.IP.EVAL ---
Current Diagnoses Acute diastolic (congestive) heart failure (02/03/25) Past Medical History (Last Reviewed 02/03/25 @ 18:49 by William Velázquez MD) Cardiac arrest Chest pain Chronic respiratory failure with hypoxia Coronary artery disease Diastolic heart failure Hyperlipidemia Hypertension Left hamstring muscle strain NSTEMI (non-ST elevated myocardial infarction) Skin cancer UTI (urinary tract infection) Surgical History (Last Reviewed 02/03/25 @ 18:49 by William Velázquez MD) H/O right heart catheterization History of appendectomy History of breast implant removal History of breast surgery History of cholecystectomy History of coronary artery stent placement History of total abdominal hysterectomy Occupational Therapy Inpatient Evaluation/Re-Eval M1 PT/OT-IP Prior Functional Status Start: 02/05/25 12:45 Freq: NEEDED Status: Active Protocol: Document 02/05/25 12:46 [facility] (Rec: 02/05/25 13:07 [facility] Desktop) Medical Review Prior Functional Status Communication I Mobility and Gait Use of 4ww in the house. Activities of Daily Pt needs assist for IADL needs, and assist for socks Living and IADL's and shoes. Pt sponges off only at home. Social History Household Members children Living Arrangements Mobile home Number of Floors ( One Floor Floors) Number of Stairs To 4 steps with wide bilateral rails. Pt has one step to Enter/Railing? get to the toilet and now has a rail to hold to. Pt sleep in her adjustable bed. Home Environment Standard Height Toilet,Walk in Shower Home Equipment Four Wheel Walker,Bedside Commode,Shower Seat without Backrest,Hand Held Shower,Lift Recliner,Grab Bars Near Toilet,Grab Bars In Shower M2 OT-IP Current Condition Start: 02/05/25 12:45 Freq: Status: Active Protocol: Document 02/05/25 12:46 [facility] (Rec: 02/05/25 13:07 [facility] Desktop) Occupational Therapy Current Condition Current Condition Evaluation Date 02/05/25 Treatment Diagnosis CHF Diagnosis Onset Date 02/03/25 Post Operative Precautions Other Precautions Per Dr. Trivedi pt ok to turn down O2 as long as pt above 92%. Pt was at 100% on 3L. Able to notify nursing. M3 OT- IP Subjective and Pain Start: 02/05/25 12:45 Freq: Status: Active Protocol: Document 02/05/25 12:46 [facility] (Rec: 02/05/25 13:07 [facility] Desktop) OT- Subjective Occupational Therapy Visit Type Type Initial Evaluation Visit Start Time 11:40 Visit Stop Time 12:25 Occupational Therapy Visit Comments Patient Comments Pt agreed to get up. Patient/Caregiver TO go home when able. Goals OT Pain Assessment Pain When Pain Assessed At Rest Pain Present Pain Present Denied Pain M4 OT- IP ADL's Start: 02/05/25 12:45 Freq: Status: Active Protocol: Document 02/05/25 12:46 [facility] (Rec: 02/05/25 13:07 [facility] Desktop) OT [id number] General Evaluation Self-Feeding Ability Standby Assistance Areas Needing Opening Containers Assistance Comments OT Self-Feeding Assist for set-up. Comments OT ADL-Grooming General Evaluation Areas Needing Retrieving/Set-up of Grooming Items Assistance Comments OT Grooming Comments Pt able to wash her face after set-up. OT ADL-Oral Care Comments Oral Care Comments Not observed. OT ADL-Dressing General Eval Lower Body Dressing Maximum Assistance Ability Areas Needing Socks Assistance OT ADL-Toileting General Evaluation Toileting Ability Maximum Assistance Comments OT Toileting Pt using purewick. Pt not wanting to use the BSC at Comments this time. Purewick taken out and pt aware to call for nursing to be assisted to the BSC. OT ADL-Bathing Comments OT Bathing Comments Not performed. M5 OT- IP IADL's Start: 02/05/25 12:45 Freq: Status: Active Protocol: Document 02/05/25 12:46 [facility] (Rec: 02/05/25 13:07 [facility] Desktop) OT-Instrumental Activities of Daily Living Home Safety Awareness Awareness of Need Good Awareness for Assistance at Home Meal Preparation Meal Preparation Caregiver Provides Assist Architect Manager Architect Manager Caregiver Provides Assist M6 OT- IP Functional Cognition Start: 02/05/25 12:45 Freq: Status: Active Protocol: Document 02/05/25 12:46 [facility] (Rec: 02/05/25 13:07 [facility] Desktop) Cognitive Factors Limiting Selfcare Function Cognitive Ability Level of Alertness Alert Patient Orientation Name,Place,Situation Attention Span Capable of Focused Attention,Capable of Sustained Ability Attention Ability to Follow Able to Follow One Step Commands with Increased Time, Commands Able to Follow One Step Commands with Repetition Cognitive Comments Cognitive Assessment Pt able to follow commands for ADL and mobility needs. Comments Pt able to make the realization that she tends to hold her breath at home when trying to walk to the bathroom. Spoke to pt of trying to be more mindful of how she feels during exertion and at rest. Pt needing vc to push up from surfaces versus grab her 4ww which does not lock appropriately. Suggested pt get another 4ww. OT- Vision and Hearing OT- Hearing Assessment OT- Hearing Hearing Impaired,Use of Hearing Aids Assessment OT- Vision Assessment Visual Acuity Glasses For Reading Visual Attentiveness WFL Occular Pursuits WFL M7 OT- IP Mobility and Balance Start: 02/05/25 12:45 Freq: Status: Active Protocol: Document 02/05/25 12:46 [facility] (Rec: 02/05/25 13:07 [facility] Desktop) OT- Bed Mobility Assessment Supine to Sit Supine to Sit Assist Contact Guard Assistance OT-Transfer Assessment Sit to and From Stand Sit to and from Contact Guard Assistance Stand Transfers Transfer Ability Contact Guard Assistance Technique Transfer Destination Bed,Chair Transfer Technique Stand Step Pivot Devices Transfer Assistive Gait Belt,4 Wheeled Walker Devices Comments Mobility Comments Pt's 4ww is broken and needing therapist to hold it in place. Pt able to stand from the bed with CGA and transfer to the recliner. O2 on 3L-pt at 100%. Spoke to the hospitalist and states pt okay to be above 92% and okay to turn down the O2. Pt on RA while talking after 15 minutes drops to 91% at the lowest on RA but wavers around 92-96%. Pt wanting to have O2 back on and able to place on pt at 1L and at 96%. Nursing notified. Pt states feels tired and sweaty through out during bed mobility and transfer to the recliner. OT- Balance Assessment Sitting Balance and Reactions Static Sitting Good Balance Ability Dynamic Sitting Good Balance Ability Standing Balance and Reactions Static Standing Fair Balance Ability Dynamic Standing Fair Balance Ability M8 OT- IP Objective Assessments Start: 02/05/25 12:45 Freq: Status: Active Protocol: Document 02/05/25 12:46 [facility] (Rec: 02/05/25 13:07 [facility] Desktop) OT Gross Range of Motion Upper Extremity Range of Motion Assessment Bilaterally Impaired ROM Impairments RUE 0-100 shoulder flexion LUE 0-80 shoulder flexion OT Strength Comments Strength Comments Pt elbow to distal WFL. M9 OT- IP Assessment and Plan Start: 02/05/25 12:45 Freq: Status: Active Protocol: Document 02/05/25 12:46 [facility] (Rec: 02/05/25 13:07 [facility] Desktop) OT Summary Assessment and Plan Potential Rehabilitation Good Potential Analytic Complexity Moderate at Evaluation Summary OT Impairments Balance,Functional Mobility,Grooming,Dressing,Toileting ,Bathing,Toilet Transfers,Shower Transfers,Activity Tolerance Progress Towards Slow Progress due to Medical Issues,Slow Progress due Goals to Activity Tolerance Assessment Summary Pt MOD complexity and main barriers are decreased activity tolerance and O2 on 3L initially when OT came into the room. Per hospitalist ok to turn down O2 but maintain above 92%. Pt on RA 91-100% wavers mainly from 93-96%. Pt states wanting to have O2 back on as still feeling weak and sweaty. O2 on 1L and pt at 96%, nursing notified. Pt refusing SNF and wants to go home when medically stable. Goals Self-Feeding Goal Independent Grooming Goal Independent Dressing Goal Moderate Assistance Toileting Goal Standby Assistance Bathing Goal Standby Assistance Toilet Transfer Goal Independent Shower Transfer Goal Standby Assistance Days to Meet Goals 10 Frequency of Treatment Other frequency 5x/week Treatment Plan OT Treatment Plan ADL Training,Functional Mobility,Patient/Family Education,Discharge Planning Discharge Recommendations OT Discharge Home with 05/12 Assist Available,Home Health Recommendations Transportation Needs Private Vehicle at Discharge
--- NOTE | 2025-02-05 16:28 | PT-IP ANOTE ---
PT eval order received and EMR Reviewed. checked on pt this afternoon and refused PT. stated that she has been moving a lot and is tired and does not want to do PT. NAC stated that pt just got up to use the commode and got back in bed. checked on pt after ~ 1 hour and pt asleep. daughter in room and wants pt to just rest for now and to try PT tomorrow.
--- NOTE | 2025-02-05 17:06 | PC.NURSE ---
Pt attempted to wean supplimental oxygen, pt sustained 97% on 1L, however breathing was labored, respiratory rate was increased and pt felt significantly SOB. The oxygen rate increased back to 3L (pt's baseline) and pt felt comfort.
[2025-02-05] MEDS: POTASSIUM CHLORIDE 20 MEQ TAB PO (17:36)
[2025-02-05] MEDS: INSULIN GLARGINE 100 UNIT/ML 3ML PEN 30 UNIT SUBCUT (21:28)
[2025-02-05] MEDS: ATORVASTATIN 20 MG TABLET 80 MG PO (21:28)
[2025-02-06] VITALS: BP 165/66; PULSE 63; RESP 16; TEMP 35.9; O2SAT 98
[2025-02-06 05:00] VITALS: BP 133/68; PULSE 60; RESP 19; TEMP 35.3; O2SAT 99
[2025-02-06 06:05] LABS: Blood Urea Nitrogen 35 mg/dL (7-17); Calcium 8.4 mg/dL (8.4-10.2); Carbon Dioxide 33 mmol/L (22-32); Chloride 95 mmol/L (98-107); Estimated Glomerular Filt Rate 53 mL/min (>60); Glucose 127 mg/dL (70-99); HEMOLYSIS 21 (0-50); Magnesium 2.4 mg/dL (1.6-2.3); Potassium 4.0 mmol/L (3.4-5.1); Sodium 133 mmol/L (137-145)
[2025-02-06] MEDS: FUROSEMIDE 40 MG/4 ML VIAL IV (07:03)
--- NOTE | 2025-02-06 07:10 | PM.PN.1 ---
Subjective Subjective Date Patient Seen: 02/06/25 Interval history: 02/03 admit, She is an 89-year-old female with history of COPD, chronic hypoxic respiratory failure, CAD and 6 cardiac stents. She was in the hospital from January 17 to and was treated for heart failure as well as COPD exacerbation. She would well for about a week and then has developed recurrent shortness a breath. She was on her baseline 3 L of oxygen has some rhinorrhea and a cough. She does have some leg edema and notes that she has difficulty with oral Lasix causing a diuresis and in fact her legs tend to feel heavier. In the ED, her troponins were elevated she was started on a heparin drip. In addition, she was given antibiotics for possible infection and bronchodilators. She denies any chest pain. She was mixed feelings about ongoing cardiac procedures but would likely consider a repeat coronary angiogram if her herbarium curator Dr. Ellington recommended it. troponins: 0.129, 0.130, 0.131. S: 02/05 Remains on a heparin drip, completing 48 hours this afternoon. No chest pain, but quite fatigued. Mild dyspnea and a dry cough. She has not been back to her baseline walking in her room yet but has been able to transfer to the bedside chair. She tells me that she lives in [place] with her son and follows up with [facility] in [place]. She will be started on PT/OT today. She remains on oxygen at her baseline of 3-4 L. Her family are hoping to take her on a road trip in their RV within the next 2 weeks. The potassium is 3.1. This will be supplemented with 20 mEq p.o. b.i.d. 02/06: Her daughter is asking that her daily azithromycin be resumed. This was apparently started during a recent admission in an attempt to decrease her recurrent pulmonary infection risk. Her chest x-ray has not shown pneumonia but her blood count was elevated. So far we have not been using antibiotics for her. She complains of puffy hands which indeed are present but there is no actual edema. She points to her right lower chest and says that she feels like there is some fluid there that needs to come up. We will increase her Lasix dose to 80 mg IV b.i.d. from 40. The magnesium level is 2.4 with a creatinine of 1.02 and a potassium that came up from 3.1 up to 4.0. Imaging: Chest CTA: 1. No signs of pulmonary emboli. 2. Findings suggestive of interstitial and alveolar pulmonary edema, mildly improved, no pleural effusion seen at this time. 3. Persistent subcutaneous density in the right breast medially, please correlate with findings from local examination for the possibility of malignancy. CXR: No acute cardiopulmonary pathology. A/P: 1. Acute diastolic heart failure, active. 2. Demand ischemia, active. 3. Chronic hypoxic respiratory failure, stable. 4. Possible component of COPD exacerbation, active. 5. CAD with 6 previous cardiac stents, active. 6. Hypertension, active. 7. Hyperlipidemia, active. 8. Hypokalemia: K 3.1 on 02/05. Started on Oral Kcl. 9. CT scan Right Breast abnormality, correlate with PCP exam as an outpatient. PLAN: -heparin drip for 48 hours completed, continue other chronic medical therapy. -diurese with Lasix 40 mg IV q.12. -supplement for hypokalemia -continue prednisone at current dosing of 25 mg a day. -bronchodilators as needed. -usual insulin glargine (20 HS) and Lispro (7 AC) for sugar control. -reviewed with her herbarium curator, Dr. Ellington. Recommends outpatient follow up with consideration of repeat coronary angiogram. -PT/OT for placement requirements -consider resumption of daily azithromycin at discharge. -repeat chest x-ray, follow up leukocytosis She is full code Daughter is proxy decision maker. Lovenox for DVT prevention Exam Vital Signs (past 8 hours): - 02/06/25 00:00 02/06/25 05:00 Temperature 96.6 F L 95.6 F L Pulse Rate 63 60 Respiratory Rate 16 19 Blood Pressure 165/66 H 133/68 Pulse Oximetry 98 99 Oxygen Flow Rate 3 Fraction of Inspired Oxygen 32 SaO2/FiO2 Ratio 309 Oxygen Delivery Method Nasal Cannula Oxygen Flow Rate 3 Objective Labs 02/05/25 02:29 02/06/25 05:23 Labs: Laboratory Results - last 24 hr 02/05/25 02/05/25 02/05/25 07:51 08:32 11:20 APTT 41 H D Sodium Potassium Chloride Carbon Dioxide BUN Creatinine Estimated GFR BUN/Creatinine Ratio Glucose POC Whole Bld Glucose 78 D 182 H D Calcium Magnesium 02/05/25 02/05/25 02/06/25 16:47 21:03 05:23 APTT Sodium 133 L Potassium 4.0 Chloride 95 L Carbon Dioxide 33 H BUN 35 H Creatinine 1.02 Estimated GFR 53 L BUN/Creatinine Ratio 34.3 H Glucose 127 H POC Whole Bld Glucose 248 H 286 H Calcium 8.4 Magnesium 2.4 H PFSH Medical History Chronic respiratory failure with hypoxia Skin cancer NSTEMI (non-ST elevated myocardial infarction) Diastolic heart failure Cardiac arrest Chest pain Hypertension Hyperlipidemia Coronary artery disease Left hamstring muscle strain UTI (urinary tract infection) Surgical History H/O right heart catheterization History of breast implant removal History of breast surgery History of appendectomy History of cholecystectomy History of total abdominal hysterectomy History of coronary artery stent placement Family History Father Hypertension Diabetes mellitus Mother Hypertension [place] (myocardial infarction) Sister [place] (myocardial infarction) S/P CABG x 4 Social History household members: children Smoking Status: Never smoker alcohol intake: never Assessment & Plan Time-Based Coding :: [TOTAL MINUTES] spent with patient and on the chart (including review of chart, obtaining history, exam, reviewing outside data, placing orders, documenting exam and treatment plan, and counseling patient) on [DATE].
[2025-02-06] MEDS: INSULIN LISPRO 100 UNIT/ML 3ML VIAL 8 UNIT SUBCUT (07:57)
[2025-02-06] MEDS: RANOLAZINE 500 MG TAB.ER.12H PO ×2 (08:42→21:07)
[2025-02-06] MEDS: ASPIRIN EC 81 MG TABLET PO (08:42)
[2025-02-06] MEDS: ESCITALOPRAM 10 MG TABLET 20 MG PO (08:42)
[2025-02-06] MEDS: METOPROLOL IR 25 MG TABLET 12.5 MG PO ×2 (08:42→21:07)
[2025-02-06] MEDS: POTASSIUM CHLORIDE 20 MEQ TAB PO ×2 (08:43→17:33)
[2025-02-06 11:09] VITALS: BP 150/59; PULSE 69; RESP 18; TEMP 36.1; O2SAT 100
--- NOTE | 2025-02-06 11:16 | PT.IIE ---
Current Diagnoses Acute diastolic (congestive) heart failure (02/03/25) Surgical History (Last Reviewed 02/03/25 @ 18:49 by William Velázquez MD) H/O right heart catheterization History of appendectomy History of breast implant removal History of breast surgery History of cholecystectomy History of coronary artery stent placement History of total abdominal hysterectomy Medical History (Last Reviewed 02/03/25 @ 18:49 by William Velázquez MD) Cardiac arrest Chest pain Chronic respiratory failure with hypoxia Coronary artery disease Diastolic heart failure Hyperlipidemia Hypertension Left hamstring muscle strain NSTEMI (non-ST elevated myocardial infarction) Skin cancer UTI (urinary tract infection) Physical Therapy Inpatient Evaluation/Re-Eval M1 PT/OT-IP Prior Functional Status Start: 02/05/25 12:45 Freq: NEEDED Status: Active Protocol: Document 02/06/25 11:16 DLM (Rec: 02/06/25 14:23 DLM Desktop) Medical Review Prior Functional Status Medical History Yes Reviewed Diet/Fluid Regular Consistency Communication Independent Mobility and Gait Use of 4ww in the house. Can do the one step in the bathroom with a pole for support. She goes up/down the 4 steps at the entrance of the house with family assist and rail. She ambulates 60 feet to get to the bathroom . Pt using 3 LPM oxygen at baseline. Activities of Daily Pt needs assist for IADL needs, and assist for socks Living and IADL's and shoes. Pt sponges off only at home. Bedside commode is over the toilet only. Prior Functional Hospitalized 01/17- Level (Other details ) Social History Household Members children Living Arrangements Mobile home Number of Floors ( One Floor Floors) Number of Stairs To 4 steps with wide bilateral rails. Pt has one step to Enter/Railing? get to the toilet and now has a pole to hold to. Pt sleep in her adjustable bed. Home Environment Standard Height Toilet,Walk in Shower Home Equipment Four Wheel Walker,Bedside Commode,Shower Seat without Backrest,Hand Held Shower,Lift Recliner,Grab Bars Near Toilet,Grab Bars In Shower Additional Social she keeps the bedside commode over the toilet but has a History Comment bucket for it if needed. She lives with her Son but her Daughter lives close. M2 PT-IP Current Condition Start: 02/06/25 13:54 Freq: NEEDED Status: Active Protocol: Document 02/06/25 11:16 DLM (Rec: 02/06/25 14:23 DLM Desktop) Physical Therapy Current Condition Current Condition Evaluation Date 02/06/25 Treatment Diagnosis CHF, impaired gait and activity tolerance Onset Date 02/03/25 M3 PT-IP Subjective Start: 02/06/25 13:54 Freq: NEEDED Status: Active Protocol: Document 02/06/25 11:16 DLM (Rec: 02/06/25 14:23 DLM Desktop) Subjective Physical Therapy Visit Type Type Initial Evaluation Visit Start Time 10:30 Visit Stop Time 11:16 Notes 46 min Number of ETHYLBENZENE CONVERTER OPERATOR Visits 0 Physical Therapy Visit Comments Patient Comments she describes feeling very tired with activity, she was light-headed with initial sitting on edge of bed Patient Goals she wants to be able to go home Therapy Pain Assessment Pain When Pain Assessed During Mobility Pain Present Pain Present Pain Reported Location Chest Intensity 5 Scale Used Numeric (0 - 10) Description Aching,Tender,With Movement Pain Behaviors Facial Grimacing,Holding Area Pain Management Modification of Treatment,Re-positioning Techniques M4 PT-IP Mobility and Gait Start: 02/06/25 13:54 Freq: NEEDED Status: Active Protocol: Document 02/06/25 11:16 DLM (Rec: 02/06/25 14:23 DLM Desktop) PT-Bed Mobility Assessment Supine to Sit Supine to Sit Minimal Assistance Scooting Scooting to Edge of Standby Assistance Bed PT-Transfer Assessment Sit to and From Stand Sit to and from Contact Guard Assistance,Use of Upper Extremities Stand Equipment Transfer Assistive Gait Belt,4 Wheeled Walker Device Transfers Transfer Destination Chair Transfer Technique Stand Step Pivot Transfer Ability Level of Assist Contact Guard Assistance Comments Mobility Comments pt up to bedside commode to urinate and a very small BM pt stayed up in recliner after gait with feet elevated and call light close Gait Assessment Gait Gait Assistance Contact Guard Assist,Minimum Assistance Required: Distance (Feet) 5 Assistive Devices Assistive Device Gait Belt,4 Wheeled Walker Gait Deviations General Gait Pattern Decreased Stride Length,Flexed Trunk,Step-to Gait Factors Limiting Gait Function Factors Limiting Decreased Activity Tolerance,Decreased Strength,Pain, Gait Function Poor Safety Awareness,Respiratory Distress Comments Gait Comments pt using 3 LPM oxygen, she reports pain in right rib area laterally She ambulated in room but fatigue limited her distance. She ambulated 2 x 5 feet with seated rest break between them. Stair Climbing Assessment Comments Stair Climbing unable this visit Comments PT-Balance Assessment Sitting Balance and Reactions Static Sitting Good Balance Ability Dynamic Sitting Good Balance Ability Standing Balance and Reactions Static Standing Good Balance Ability Dynamic Standing Fair Balance Ability Device Used 4WW M5 PT-IP Objective Assessments Start: 02/06/25 13:54 Freq: NEEDED Status: Active Protocol: Document 02/06/25 11:16 DLM (Rec: 02/06/25 14:23 DLM Desktop) Orientation Orientation/Cognition Level of Alertness Alert Orientation Name,Age,Birthday,Month,Date,Year,Day of Week,Place, Situation Language Function No Deficits Noted Ability Safety Awareness Understands Safety Issues Memory Description No Deficits Noted Gross Range of Motion Upper Extremity ROM Assessment Within Functional Limits Lower Extremity ROM Assessment Within Functional Limits Strength Upper Extremity Strength Assessment Within Functional Limits Lower Extremity Strength Assessment Within Functional Limits Coordination Assessment Gross Coordination Gross Coordination WNL Sensation Assessment Sensation Gross Sensation WNL Muscle Tone Muscle Tone WNL Yes M6 PT-IP Treatment Start: 02/06/25 13:54 Freq: NEEDED Status: Active Protocol: Document 02/06/25 11:16 DLM (Rec: 02/06/25 14:23 DLM Desktop) Physical Therapy Treatment Exercises Exercises Ankle Pumps,Heel Slides Education Education Provided Safety Other Treatments Other Treatment Her Daughter is present this visit. Performed M7 PT-IP Assessment and Plan Start: 02/06/25 13:54 Freq: NEEDED Status: Active Protocol: Document 02/06/25 11:16 DLM (Rec: 02/06/25 14:23 DLM Desktop) PT Summary Assessment and Plan Potential Rehabilitation Good Potential Status of Condition Evolving at Evaluation Summary Impairments Pain,Strength,Balance,Bed Mobility,Transfers,Gait, Activity Tolerance Assessment Summary Lida is alert and resting in bed this visit. She was hospitalized earlier this month and has returned with increased weakness that was preventing gait at home. She reports no falls at home. Pt is using 3 LPM oxygen which is her baseline at home. She reports ongoing weakness and fatigue this visit that limited her distance of gait to 5 feet. Fatigue seems to be more limiting than shortness of breath at this time. Pt agreed to stay up in the recliner after gait. Pt and her family reports she needs to be strong enough to safely ambulate to the bathroom and back at home with her 4WW (about 60 feet each direction). She has 4 stairs to enter her home and one step up in the bathroom to get to the toilet. She is not safe to discharge home at this time due to her limited gait and activity tolerance. She is very motivated to return home at discharge. She may need SNF rehab at discharge to continue to progress her gait and activity tolerance . Will continue to assess as she improves medically. Goals Bed Mobility Goal Independent Transfer Goal Independent,Four Wheeled Walker Gait Goal Standby Assistance,Front Wheel Walker Gait Distance 60 feet Other Goals up/down 4 steps with one rail and CG assist Days to Meet Goals 5 Frequency of Treatment Frequency Of Once a Day Treatment Treatment Plan Physical Therapy Bed Mobility Training,Transfer Training,Gait Training, Treatment Plan Therapeutic Exercise,Balance Retraining,Post Op Education,Discharge Planning,Neuromuscular Re-ed Other she has her 4WW from home in the room Recommendations and Next Treatment Focus Precautions Other Precautions 3 LPM oxygen at baseline Recommendations To Nursing Amount of Assist 1 Person Assist Needed Discharge Recommendations PT Discharge Home vs SNF Recommendations Other Discharge has to be able to do stairs to go home with family (see Recommendations assessment) Transportation Needs Private Vehicle at Discharge - PT assist 1
[2025-02-06] MEDS: ENOXAPARIN 40 MG/0.4 ML SYRINGE SUBCUT ×2 (12:08→21:08)
[2025-02-06] MEDS: INSULIN LISPRO 100 UNIT/ML 3ML VIAL SUBCUT ×3 (12:08→21:08)
[2025-02-06] MEDS: INSULIN LISPRO 100 UNIT/ML 3ML VIAL 10 UNIT SUBCUT ×2 (12:08→16:56)
--- NOTE | 2025-02-06 14:03 | DI.RAD.S_ITS ---
PROCEDURE: XR CHEST 1V INDICATIONS: CHF TECHNIQUE: One view of the chest was acquired. COMPARISON: [facility], CT, CT ANGIO CHEST PE PROTOCOL, 02/03/2025, 15:42. [facility], CR, XR CHEST 1V, 01/17/2025, 11:10. [facility], CR, XR CHEST 1V, 02/03/2025, 12:54. FINDINGS: Surgical changes and devices: None. Lungs and pleura: An incomplete inspiratory result is noted, causing a crowded appearance to the lung markings. No focal infiltrates are seen. Mild generalized interstitial prominence can be seen. No pneumothorax or significant pleural effusions are seen. Mediastinum: The cardiac contours are moderately enlarged. The aorta demonstrates calcification and tortuosity. Bones and chest wall: No suspicious bony lesions. Overlying soft tissues appear unremarkable. IMPRESSION: Cardiomegaly and mild interstitial prominence are seen, which are consistent with the given clinical history of CHF. Dictated by: Venkat Tucker M.D. on 02/06/2025 at 13:48 Approved by: Venkat Tucker M.D. on 02/06/2025 at 13:50
--- NOTE | 2025-02-06 14:30 | OT.IP.TRT ---
Current Diagnoses Acute diastolic (congestive) heart failure (02/03/25) Occupational Therapy Treatment Note M2 OT-IP Current Condition Start: 02/05/25 12:45 Freq: Status: Active Protocol: Document 02/05/25 12:46 [facility] (Rec: 02/05/25 13:07 [facility] Desktop) Occupational Therapy Current Condition Current Condition Evaluation Date 02/05/25 Treatment Diagnosis CHF Diagnosis Onset Date 02/03/25 Post Operative Precautions Other Precautions Per Dr. Trivedi pt ok to turn down O2 as long as pt around 92%. Pt was at 100% on 3L. Able to notify nursing. M3 OT- IP Subjective and Pain Start: 02/05/25 12:45 Freq: Status: Active Protocol: Document 02/06/25 14:00 [facility] (Rec: 02/06/25 14:49 [facility] Desktop) OT- Subjective Occupational Therapy Visit Type Visit Start Time 14:00 Visit Stop Time 14:30 Occupational Therapy Visit Comments Patient Comments Pt wanting to use the BSC and then get back to bed. Patient/Caregiver To go home. Goals M4 OT- IP ADL's Start: 02/05/25 12:45 Freq: Status: Active Protocol: Document 02/06/25 14:00 [facility] (Rec: 02/06/25 14:49 [facility] Desktop) OT ADL-Toileting General Evaluation Toileting Ability Maximum Assistance Areas Needing Manage Clothing,Perform Perineal Hygiene Assistance Comments OT Toileting Pt states has a toilet paper aid she uses at home. When Comments her daughter is there usually during meal times will assist her with hygiene needs after toileting and just walk behind her as she walks to the toilet and back. Pt states her son does not assist her for any toileting or sponging off. Suggested pt will benefit from a bidet and someone to be there to assist her for completeness and safety. Pt not able to reach to wipe, having to assist pt for completeness. Able to use wet wipes and wash cloth and still residue and pt not clean. Nursing aid came in to take over. M5 OT- IP IADL's Start: 02/05/25 12:45 Freq: Status: Active Protocol: Document 02/05/25 12:46 [facility] (Rec: 02/05/25 13:07 [facility] Desktop) OT-Instrumental Activities of Daily Living Home Safety Awareness Awareness of Need Good Awareness for Assistance at Home Meal Preparation Meal Preparation Caregiver Provides Assist Customer Specialist Customer Specialist Caregiver Provides Assist M6 OT- IP Functional Cognition Start: 02/05/25 12:45 Freq: Status: Active Protocol: Document 02/06/25 14:00 [facility] (Rec: 02/06/25 14:49 [facility] Desktop) Cognitive Factors Limiting Selfcare Function Cognitive Ability Level of Alertness Alert Patient Orientation Name,Place,Situation Attention Span Capable of Focused Attention,Capable of Sustained Ability Attention Ability to Follow Able to Follow One Step Commands Commands Cognitive Comments Cognitive Assessment Pt still adamant of not going to skilled rehab. Pt is Comments aware and states not planning on going on a trip to see her great grand kids. Pt getting tired while sitting on the BSC , O2 on 3L and at 100%. M7 OT- IP Mobility and Balance Start: 02/05/25 12:45 Freq: Status: Active Protocol: Document 02/06/25 14:00 [facility] (Rec: 02/06/25 14:49 [facility] Desktop) OT-Transfer Assessment Sit to and From Stand Sit to and from Contact Guard Assistance Stand Transfers Transfer Ability Contact Guard Assistance Technique Transfer Destination Bedside Commode,Chair Transfer Technique Stand Step Pivot Devices Transfer Assistive Gait Belt,4 Wheeled Walker Devices Comments Mobility Comments CGA with FWW to the BSC. Called nursing aid to assist as pt still having residue but feels that she is done using the BSC. Pt only able to walk 5 ft to the BSC from the recliner with 4ww and getting SOB/tired but O2 on 3L at 100%. OT- Balance Assessment Sitting Balance and Reactions Static Sitting Good Balance Ability Dynamic Sitting Good Balance Ability Standing Balance and Reactions Static Standing Fair Balance Ability Dynamic Standing Fair Balance Ability M8 OT- IP Objective Assessments Start: 02/05/25 12:45 Freq: Status: Active Protocol: Document 02/05/25 12:46 [facility] (Rec: 02/05/25 13:07 [facility] Desktop) OT Gross Range of Motion Upper Extremity Range of Motion Assessment Bilaterally Impaired ROM Impairments RUE 0-100 shoulder flexion LUE 0-80 shoulder flexion OT Strength Comments Strength Comments Pt elbow to distal WFL. M9 OT- IP Assessment and Plan Start: 02/05/25 12:45 Freq: Status: Active Protocol: Document 02/06/25 14:00 [facility] (Rec: 02/06/25 14:49 [facility] Desktop) OT Summary Assessment and Plan Potential Rehabilitation Fair Potential Analytic Complexity Moderate at Evaluation Summary OT Impairments Balance,Functional Mobility,Grooming,Dressing,Toileting ,Bathing,Toilet Transfers,Shower Transfers,Activity Tolerance Progress Towards Slow Progress due to Medical Issues,Slow Progress due Goals to Activity Tolerance Assessment Summary Pt still having decreased activity tolerance and only able to walk 5 ft to the [facility] with 4ww and getting SOB. Pt insistent on going home and not to skilled rehab. Therefore if going home pt will benefit from 24/7 hands on assistance especially for ADL needs- toileting and bathing. Per pt, her son that lives with her does not assist with toileting needs. Pt's daughter assists her when there during meal times, but does not stay with her. Goals Self-Feeding Goal Independent Grooming Goal Independent Dressing Goal Moderate Assistance Toileting Goal Minimal Assistance Bathing Goal Minimal Assistance Toilet Transfer Goal Independent Shower Transfer Goal Standby Assistance Days to Meet Goals 10 Frequency of Treatment Other frequency 5x/week Treatment Plan OT Treatment Plan ADL Training,Functional Mobility,Patient/Family Education,Discharge Planning Discharge Recommendations OT Discharge Home with 24/7 Assist Available,Home Health,SNF Rehab Recommendations Transportation Needs Private Vehicle,Wheelchair/Cabulance at Discharge
[2025-02-06 15:00] VITALS: BP 128/49; PULSE 67; RESP 18; TEMP 35.9; O2SAT 100
--- NOTE | 2025-02-06 15:42 | CM.DPC ---
DCP Cont: Per MD, pt getting closer to being ready for discharge and pending progress with PT/OT might be able to d/c home by tomorrow Monday. Per OT, home with family and HH. Per PT, HH vs SNF pending progress as pt has multiple readmits and weakness. Pt strongly declines SNF and really wants home with family and continued [facility]. Secure emailed pt's clinicals to [facility] to review for Resumption of HH services at d/c and possible discharge tomorrow if stable. Plan: SW to follow closely to confirm safe d/c home with family and Resumption of [facility] and r/o SNF at d/c. DONNELL Erickson
[2025-02-06] MEDS: FUROSEMIDE 80 MG in SODIUM CHLORIDE 0.9% 50 ML 116 MG IV (17:33)
[2025-02-06 20:00] VITALS: BP 142/65; PULSE 83; RESP 18; TEMP 35.8; O2SAT 100
[2025-02-06] MEDS: ATORVASTATIN 20 MG TABLET 80 MG PO (21:07)
[2025-02-06] MEDS: INSULIN GLARGINE 100 UNIT/ML 3ML PEN 30 UNIT SUBCUT (21:08)
[2025-02-06 23:28] VITALS: O2SAT 96
[2025-02-07] VITALS: BP 99/59; PULSE 59; RESP 18; TEMP 35.6; O2SAT 100
[2025-02-07 04:00] VITALS: BP 166/70; PULSE 65; RESP 18; TEMP 35.7; O2SAT 100
[2025-02-07] MEDS: FUROSEMIDE 80 MG in SODIUM CHLORIDE 0.9% 50 ML 116 MG IV ×3 (05:55→21:46)
--- NOTE | 2025-02-07 06:47 | P.PN_ITS ---
Subjective Subjective Date Patient Seen: 02/07/25 Interval history: 02/03 admit, She is an 89-year-old female with history of COPD, chronic hypoxic respiratory failure, CAD and 6 cardiac stents. She was in the hospital from January 17 to and was treated for heart failure as well as COPD exacerbation. She would well for about a week and then has developed recurrent shortness a breath. She was on her baseline 3 L of oxygen has some rhinorrhea and a cough. She does have some leg edema and notes that she has difficulty with oral Lasix causing a diuresis and in fact her legs tend to feel heavier. In the ED, her troponins were elevated she was started on a heparin drip. In addition, she was given antibiotics for possible infection and bronchodilators. She denies any chest pain. She was mixed feelings about ongoing cardiac procedures but would likely consider a repeat coronary angiogram if her door installer Dr. Ellington recommended it. troponins: 0.129, 0.130, 0.131. S: 02/05 Remains on a heparin drip, completing 48 hours this afternoon. No chest pain, but quite fatigued. Mild dyspnea and a dry cough. She has not been back to her baseline walking in her room yet but has been able to transfer to the bedside chair. She tells me that she lives in [place] with her son and follows up with [facility] in [place]. She will be started on PT/OT today. She remains on oxygen at her baseline of 3-4 L. Her family are hoping to take her on a road trip in their RV within the next 2 weeks. The potassium is 3.1. This will be supplemented with 20 mEq p.o. b.i.d. 02/06: Her daughter is asking that her daily azithromycin be resumed. This was apparently started during a recent admission in an attempt to decrease her recurrent pulmonary infection risk. Her chest x-ray has not shown pneumonia but her blood count was elevated. So far we have not been using antibiotics for her. She complains of puffy hands which indeed are present but there is no actual edema. She points to her right lower chest and says that she feels like there is some fluid there that needs to come up. We will increase her Lasix dose to 80 mg IV b.i.d. from 40. The magnesium level is 2.4 with a creatinine of 1.02 and a potassium that came up from 3.1 up to 4.0. Imaging: Chest CTA: 1. No signs of pulmonary emboli. 2. Findings suggestive of interstitial and alveolar pulmonary edema, mildly improved, no pleural effusion seen at this time. 3. Persistent subcutaneous density in the right breast medially, please correlate with findings from local examination for the possibility of malignancy. CXR: No acute cardiopulmonary pathology. A/P: 1. Acute diastolic heart failure, active. 2. Demand ischemia, active. 3. Chronic hypoxic respiratory failure, stable. 4. Possible component of COPD exacerbation, active. 5. CAD with 6 previous cardiac stents, active. 6. Hypertension, active. 7. Hyperlipidemia, active. 8. Hypokalemia: K 3.1 on 02/05. Started on Oral Kcl. 9. CT scan Right Breast abnormality, correlate with PCP exam as an outpatient. PLAN: -heparin drip for 48 hours completed, continue other chronic medical therapy. -diurese with Lasix 40 mg IV q.12. -supplement for hypokalemia -continue prednisone at current dosing of 25 mg a day. -bronchodilators as needed. -usual insulin glargine (20 HS) and Lispro (7 AC) for sugar control. -reviewed with her door installer, Dr. Ellington. Recommends outpatient follow up with consideration of repeat coronary angiogram. -PT/OT for placement requirements -consider resumption of daily azithromycin at discharge. -repeat chest x-ray, follow up leukocytosis She is full code Daughter is proxy decision maker. Lovenox for DVT prevention Exam Vital Signs (past 8 hours): - 02/06/25 23:28 02/07/25 00:00 02/07/25 04:00 Temperature 96.1 F L 96.2 F L Pulse Rate 59 L 65 Respiratory Rate 18 18 Blood Pressure 99/59 L 166/70 H Pulse Oximetry 96 100 100 Oxygen Delivery Method CPAP Oxygen Flow Rate 3 0 3 Fraction of Inspired Oxygen 32 SaO2/FiO2 Ratio 309 Oxygen Delivery Method CPAP Oxygen Flow Rate 3 Objective Labs 02/05/25 02:29 02/06/25 05:23 Labs: Laboratory Results - last 24 hr 02/06/25 02/06/25 02/06/25 07:24 10:59 16:06 POC Whole Bld Glucose 116 H D 194 H 162 H 02/06/25 21:09 POC Whole Bld Glucose 326 H D PFSH Medical History Chronic respiratory failure with hypoxia Skin cancer NSTEMI (non-ST elevated myocardial infarction) Diastolic heart failure Cardiac arrest Chest pain Hypertension Hyperlipidemia Coronary artery disease Left hamstring muscle strain UTI (urinary tract infection) Surgical History H/O right heart catheterization History of breast implant removal History of breast surgery History of appendectomy History of cholecystectomy History of total abdominal hysterectomy History of coronary artery stent placement Family History Father Hypertension Diabetes mellitus Mother Hypertension CT (myocardial infarction) Sister CT (myocardial infarction) S/P CABG x 4 Social History household members: children Smoking Status: Never smoker alcohol intake: never Assessment & Plan Time-Based Coding :: [TOTAL MINUTES] spent with patient and on the chart (including review of chart, obtaining history, exam, reviewing outside data, placing orders, documenting exam and treatment plan, and counseling patient) on [DATE].
[2025-02-07 07:53] VITALS: BP 157/57; PULSE 65; RESP 18; TEMP 36.4; O2SAT 99
[2025-02-07] MEDS: RANOLAZINE 500 MG TAB.ER.12H PO ×2 (09:41→20:45)
[2025-02-07] MEDS: METOPROLOL IR 25 MG TABLET 12.5 MG PO ×2 (09:41→20:45)
[2025-02-07] MEDS: ASPIRIN EC 81 MG TABLET PO (09:41)
[2025-02-07] MEDS: ENOXAPARIN 40 MG/0.4 ML SYRINGE SUBCUT ×2 (09:41→20:46)
[2025-02-07] MEDS: POTASSIUM CHLORIDE 20 MEQ TAB PO ×2 (09:41→17:03)
[2025-02-07] MEDS: ESCITALOPRAM 10 MG TABLET 20 MG PO (09:42)
--- NOTE | 2025-02-07 10:52 | PT-IP ANOTE ---
Attempted Pt this am, pt refuses stating she's too tired. Will try later today.
[2025-02-07 11:00] VITALS: BP 132/55; PULSE 72; RESP 100; TEMP 35.8; O2SAT 100
--- NOTE | 2025-02-07 11:35 | P.PN_ITS ---
Subjective Subjective Date Patient Seen: 02/07/25 Time Patient Seen: 11:15 Interval history: 02/03 admit, She is an 89-year-old female with history of COPD, chronic hypoxic respiratory failure, CAD and 6 cardiac stents. She was in the hospital from January 17 to and was treated for heart failure as well as COPD exacerbation. She would well for about a week and then has developed recurrent shortness a breath. She was on her baseline 3 L of oxygen has some rhinorrhea and a cough. She does have some leg edema and notes that she has difficulty with oral Lasix causing a diuresis and in fact her legs tend to feel heavier. In the ED, her troponins were elevated she was started on a heparin drip. In addition, she was given antibiotics for possible infection and bronchodilators. She denies any chest pain. She was mixed feelings about ongoing cardiac procedures but would likely consider a repeat coronary angiogram if her calender roll press operator Dr. Ellington recommended it. troponins: 0.129, 0.130, 0.131. S: 02/05 Remains on a heparin drip, completing 48 hours this afternoon. No chest pain, but quite fatigued. Mild dyspnea and a dry cough. She has not been back to her baseline walking in her room yet but has been able to transfer to the bedside chair. She tells me that she lives in [place] with her son and follows up with [facility] in [place]. She will be started on PT/OT today. She remains on oxygen at her baseline of 3-4 L. Her family are hoping to take her on a road trip in their RV within the next 2 weeks. The potassium is 3.1. This will be supplemented with 20 mEq p.o. b.i.d. 02/06: Her daughter is asking that her daily azithromycin be resumed. This was apparently started during a recent admission in an attempt to decrease her recurrent pulmonary infection risk. Her chest x-ray has not shown pneumonia but her blood count was elevated. So far we have not been using antibiotics for her. She complains of puffy hands which indeed are present but there is no actual edema. She points to her right lower chest and says that she feels like there is some fluid there that needs to come up. We will increase her Lasix dose to 80 mg IV b.i.d. from 40. The magnesium level is 2.4 with a creatinine of 1.02 and a potassium that came up from 3.1 up to 4.0. 02/07: She reports persistent shortness of breath and weakness. Furosemide was increased yesterday but no significant diuresis noted. She notes right lower chest wall tenderness persists but is less. Imaging: Chest CTA: 1. No signs of pulmonary emboli. 2. Findings suggestive of interstitial and alveolar pulmonary edema, mildly improved, no pleural effusion seen at this time. 3. Persistent subcutaneous density in the right breast medially, please correlate with findings from local examination for the possibility of malignancy. CXR 02/06: Cardiomegaly and mild interstitial prominence are seen, which are consistent with the given clinical history of CHF. A/P: 1. Acute diastolic heart failure, active. 2. Demand ischemia, active. 3. Chronic hypoxic respiratory failure, stable. 4. Possible component of COPD exacerbation, active. 5. CAD with 6 previous cardiac stents, active. 6. Hypertension, active. 7. Hyperlipidemia, active. 8. Hypokalemia: K 3.1 on 02/05. Started on Oral Kcl. 9. CT scan Right Breast abnormality, correlate with PCP exam as an outpatient. PLAN: -heparin drip for 48 hours completed, continue other chronic medical therapy. -diurese with Lasix 80 mg IV q.8. -add metolazone 5mg daily -supplement for hypokalemia -continue prednisone at current dosing of 20 mg a day. -bronchodilators as needed. -usual insulin glargine (20 HS) and Lispro (7 AC) for sugar control. -reviewed with her calender roll press operator, Dr. Ellington on admission. Recommends outpatient follow up with consideration of repeat coronary angiogram. -PT/OT for placement requirements -consider resumption of daily azithromycin at discharge. -monitor labs She is full code Daughter is proxy decision maker. Lovenox for DVT prevention Exam Vital Signs (past 8 hours): - 02/07/25 04:00 02/07/25 07:53 02/07/25 08:00 Temperature 96.2 F L 97.6 F Pulse Rate 65 65 Respiratory Rate 18 18 Blood Pressure 166/70 H 157/57 H Pulse Oximetry 100 99 Oxygen Delivery Method Nasal Cannula Oxygen Flow Rate 3 Fraction of Inspired Oxygen 32 SaO2/FiO2 Ratio 309 Oxygen Delivery Method Nasal Cannula Oxygen Flow Rate 3 Narrative Exam Narrative: Heart is regular rate and rhythm without murmur Lungs have bibasilar crackles Abdomen soft with pitting edema Extremities have no ankle edema, bilateral hand 1+ edema She looks very weak but is alert and oriented x3, in no apparent distress. Objective Labs 02/05/25 02:29 02/06/25 05:23 Labs: Laboratory Results - last 24 hr 02/06/25 02/06/25 02/07/25 16:06 21:09 07:32 POC Whole Bld Glucose 162 H 326 H D 80 D 02/07/25 11:28 POC Whole Bld Glucose 223 H D [facility] Medical History Chronic respiratory failure with hypoxia Skin cancer NSTEMI (non-ST elevated myocardial infarction) Diastolic heart failure Cardiac arrest Chest pain Hypertension Hyperlipidemia Coronary artery disease Left hamstring muscle strain UTI (urinary tract infection) Surgical History H/O right heart catheterization History of breast implant removal History of breast surgery History of appendectomy History of cholecystectomy History of total abdominal hysterectomy History of coronary artery stent placement Family History Father Hypertension Diabetes mellitus Mother Hypertension ND (myocardial infarction) Sister ND (myocardial infarction) S/P CABG x 4 Social History household members: children Smoking Status: Never smoker alcohol intake: never [facility] [employer]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
--- NOTE | 2025-02-07 11:36 | CM.DPNOTE ---
Addendum entered by DONNELL Anand 02/07/25 15:42: DCP Updated: DCP entered room to meet with pt and daughter at bedside, they confirm that they decline SNF at this time and would like to discharge home with [facility] when medically cleared and back at baseline. ROHIT Melendez Original Note: DCP Continued: Reviewed EMR and team rounds for pt?s medical status. Per hospitalist, pt seems to be back at baseline (physically) and pending some lab results before dc determination. Per PT, pt feeling fatigued and would like to try PT later in the afternoon. [facility] updated with resumption orders, will need dc summary when completed sent to [facility] team. Plan: Anticipating dc home with daughter to transport on Monday, 02/08 or when medically cleared. CM Team will continue to follow for coordination of discharge plans. ROHIT Melendez
[2025-02-07] MEDS: INSULIN LISPRO 100 UNIT/ML 3ML VIAL SUBCUT ×3 (11:56→20:43)
[2025-02-07] MEDS: INSULIN LISPRO 100 UNIT/ML 3ML VIAL 10 UNIT SUBCUT ×2 (11:57→17:03)
[2025-02-07 14:14] LABS: Add Manual Diff / Slide Review NO; Hematocrit 38.0 % (36-46); Hemoglobin 11.9 g/dL (12.0-16.0); Lymphocytes Absolute Auto 1000 /uL (1100-4500); Mean Corpuscular HGB Conc 31.5 % (30-36); Mean Corpuscular Hemoglobin 24.2 PG (26-34); Mean Corpuscular Volume 76.9 fL (80-100); Platelet Count 163 X10^3/uL (150-400)
--- NOTE | 2025-02-07 14:35 | PT.IPTN ---
Current Diagnoses Acute diastolic (congestive) heart failure (02/03/25) Physical Therapy Treatment Note M2 PT-IP Current Condition Start: 02/06/25 13:54 Freq: NEEDED Status: Active Protocol: Document 02/06/25 11:16 DLM (Rec: 02/06/25 14:23 DLM Desktop) Physical Therapy Current Condition Current Condition Evaluation Date 02/06/25 Treatment Diagnosis CHF, impaired gait and activity tolerance Onset Date 02/03/25 M3 PT-IP Subjective Start: 02/06/25 13:54 Freq: NEEDED Status: Active Protocol: Document 02/07/25 14:29 KJ (Rec: 02/07/25 14:35 KJ [id number]) Subjective Physical Therapy Visit Type Type Treatment Note Visit Start Time 14:02 Visit Stop Time 14:29 Physical Therapy Visit Comments Patient Comments Feels a little dizzy when up. M4 PT-IP Mobility and Gait Start: 02/06/25 13:54 Freq: NEEDED Status: Active Protocol: Document 02/07/25 14:29 KJ (Rec: 02/07/25 14:35 KJ [id number]) PT-Bed Mobility Assessment Rolling Type of Rolling Roll to Left Level of Assist Minimal Assistance Supine to Sit Supine to Sit Minimal Assistance Scooting Scooting to Edge of Contact Guard Assistance Bed PT-Transfer Assessment Sit to and From Stand Sit to and from Contact Guard Assistance Stand Equipment Transfer Assistive Gait Belt,Front Wheeled Walker Device Transfers Transfer Destination Chair Transfer Technique Stand Step Pivot Transfer Ability Level of Assist Contact Guard Assistance Comments Mobility Comments Attempted to ambulate. Pt was unable to take steps forward. Sit to/from stand x 3. Required frequent rests. Pt feels sob but O2 sats are 100% on 3l. PT-Balance Assessment Sitting Balance and Reactions Static Sitting Good Balance Ability Dynamic Sitting Good Balance Ability Standing Balance and Reactions Static Standing Good Balance Ability Dynamic Standing Fair Balance Ability M5 PT-IP Objective Assessments Start: 02/06/25 13:54 Freq: NEEDED Status: Active Protocol: Document 02/06/25 11:16 DLM (Rec: 02/06/25 14:23 DLM Desktop) Orientation Orientation/Cognition Level of Alertness Alert Orientation Name,Age,Birthday,Month,Date,Year,Day of Week,Place, Situation Language Function No Deficits Noted Ability Safety Awareness Understands Safety Issues Memory Description No Deficits Noted Gross Range of Motion Upper Extremity ROM Assessment Within Functional Limits Lower Extremity ROM Assessment Within Functional Limits Strength Upper Extremity Strength Assessment Within Functional Limits Lower Extremity Strength Assessment Within Functional Limits Coordination Assessment Gross Coordination Gross Coordination WNL Sensation Assessment Sensation Gross Sensation WNL Muscle Tone Muscle Tone WNL Yes M6 PT-IP Treatment Start: 02/06/25 13:54 Freq: NEEDED Status: Active Protocol: Document 02/07/25 14:29 KJ (Rec: 02/07/25 14:35 KJ [id number]) Physical Therapy Treatment Exercises Exercises Ankle Pumps,Gluteal Sets,Quad Sets Education Education Provided Safety Other Treatments Other Treatment Monitored HR and O2 sats during activity Performed M7 PT-IP Assessment and Plan Start: 02/06/25 13:54 Freq: NEEDED Status: Active Protocol: Document 02/07/25 14:29 KJ (Rec: 02/07/25 14:35 KJ [id number]) PT Summary Assessment and Plan Potential Rehabilitation Fair Potential Status of Condition Evolving at Evaluation Summary Impairments Bed Mobility,Transfers,Gait,Activity Tolerance Progress Towards Slow Progress due to Medical Issues Goals Assessment Summary Pt is not progressing much in mobility. She will need to go up 3-4 stairs to get into the house and will need to be able to ambulate the the bathroom. Discussed these requirements with patient and daughter. Lou says she already has a wheelchair but plans on getting a commode for the living room. Goals Bed Mobility Goal Contact Guard Assistance Transfer Goal Contact Guard Assistance Gait Goal Contact Guard Assistance Treatment Plan Other Continue to work on mobility needed to go home. Recommendations and Next Treatment Focus Discharge Recommendations PT Discharge SNF Rehab Recommendations
[2025-02-07 14:41] LABS: Blood Urea Nitrogen 36 mg/dL (7-17); Calcium 8.9 mg/dL (8.4-10.2); Carbon Dioxide 34 mmol/L (22-32); Chloride 92 mmol/L (98-107); Estimated Glomerular Filt Rate 49 mL/min (>60); Glucose 247 mg/dL (70-99); HEMOLYSIS 50 (0-50); Potassium 4.5 mmol/L (3.4-5.1); Sodium 131 mmol/L (137-145)
[2025-02-07 15:00] VITALS: BP 175/72; PULSE 69; RESP 18; TEMP 36.4; O2SAT 100
--- NOTE | 2025-02-07 16:42 | OT.IPNOTE ---
Attempted to see pt for OT and pt already up in the recliner and refusing at this time as too tired.
--- NOTE | 2025-02-07 17:34 | DIET.PN1 ---
Dietary Progress Note Assessment: 89 y/o F familiar to this RD/АННА r/t outpatient visits. Has been adjusting insulin and steroid therapy in OP setting. Started CGM in our last visit. Plans to replace with personal CGM tomorrow. States CGM has not lined up with BG checks. Encouraged calibration of CGM with inpatient BG checks. BG running elevated pre meal per flowsheet. May benefit from increase in ac insulin. On CCD. Appetite is adequate. RD/CDCES outpatient visit scheduled for Monday. She reports diabetes is confusing based on how much her numbers change. Ht: 154.94 cm Wt: 103.5 kg BMI: 43.1 Last BM: 02/02/25 (02/03/25 20:17) MNA: 13 Cirilo Score: 18 Diet: 02/03/25 Dinner Carbohydrate Consistent Diet Diet Modifications: Carbohydrate level: Medium (3 CHO) Reflex DM orders: No Food Texture: Level 7 - Regular Liquid Consistency: Level 0 - Thin 02/04/25 Dinner Courtesy Tray (Peds, comfort care) Diet Modifications: Nutrition Percent Meal Consumed 100% 02/07/25 13:00 Percent Meal Consumed 100% 02/07/25 09:01 Percent Meal Consumed 100% 02/06/25 18:00 Percent Meal Consumed 100% 02/06/25 15:56 Percent Meal Consumed 100% 02/05/25 18:00 Labs: RBC 4.93 X10^6/uL (4.0-5.2) 02/07/25 14:00 Hgb 11.9 g/dL (12.0-16.0) L 02/07/25 14:00 Hct 38.0 % (36-46) 02/07/25 14:00 Creatinine 1.10 mg/dL (0.52-1.04) H 02/07/25 14:00 Hemoglobin A1c 9.1 % (4.0-6.0) H 02/04/25 06:10 Lactate 1.9 mmol/L (0.7-2.1) 02/03/25 14:52 NT-Pro-B Natriuret Pep 1740 pg/mL (<450) H 02/03/25 12:45 Nutrition Diagnosis: Altered nutrition related lab value r/t endocrine dysfunction aeb BG >200mg/dl Interventions: Reviewed how to calibrate CGM Discussed impact of steroid therapy on BG EER: 45g CHO per meal; 15-30g CHO per snack Monitoring/Evaluations: OP follow-up next week Electronically Signed by: Damari Corado 02/07/25 17:34 Clinical Dietitian [address] [address]
[2025-02-07 20:00] VITALS: BP 155/66; PULSE 79; RESP 18; TEMP 35.7; O2SAT 100
[2025-02-07] MEDS: INSULIN GLARGINE 100 UNIT/ML 3ML PEN 25 UNIT SUBCUT (20:45)
[2025-02-07] MEDS: ATORVASTATIN 20 MG TABLET 80 MG PO (20:46)
[2025-02-08] VITALS: BP 151/71; PULSE 74; RESP 18; TEMP 36.2; O2SAT 99
[2025-02-08 04:00] VITALS: BP 139/54; PULSE 69; RESP 18; TEMP 36.5; O2SAT 98
[2025-02-08] MEDS: FUROSEMIDE 80 MG in SODIUM CHLORIDE 0.9% 50 ML 116 MG IV ×2 (06:00→14:24)
[2025-02-08 08:39] LABS: Blood Urea Nitrogen 44 mg/dL (7-17); Calcium 9.2 mg/dL (8.4-10.2); Chloride 83 mmol/L (98-107); Estimated Glomerular Filt Rate 42 mL/min (>60); Glucose 175 mg/dL (70-99); Potassium 4.2 mmol/L (3.4-5.1); Sodium 130 mmol/L (137-145)
[2025-02-08 08:41] LABS: Add Manual Diff / Slide Review NO; Hematocrit 43.6 % (36-46); Hemoglobin 14.3 g/dL (12.0-16.0); Lymphocytes Absolute Auto 2900 /uL (1100-4500); Mean Corpuscular HGB Conc 32.7 % (30-36); Mean Corpuscular Hemoglobin 24.8 PG (26-34); Mean Corpuscular Volume 75.8 fL (80-100); Platelet Count 159 X10^3/uL (150-400)
--- NOTE | 2025-02-08 08:50 | PM.PN.IH.1 ---
Subjective Subjective Date Patient Seen: 02/08/25 Time Patient Seen: 08:05 Interval history: 02/03 admit, She is an 89-year-old female with history of COPD, chronic hypoxic respiratory failure, CAD and 6 cardiac stents. She was in the hospital from January 17 to and was treated for heart failure as well as COPD exacerbation. She would well for about a week and then has developed recurrent shortness a breath. She was on her baseline 3 L of oxygen has some rhinorrhea and a cough. She does have some leg edema and notes that she has difficulty with oral Lasix causing a diuresis and in fact her legs tend to feel heavier. In the ED, her troponins were elevated she was started on a heparin drip. In addition, she was given antibiotics for possible infection and bronchodilators. She denies any chest pain. She was mixed feelings about ongoing cardiac procedures but would likely consider a repeat coronary angiogram if her credit union field examiner Dr. Ellington recommended it. troponins: 0.129, 0.130, 0.131. S: 02/05 Remains on a heparin drip, completing 48 hours this afternoon. No chest pain, but quite fatigued. Mild dyspnea and a dry cough. She has not been back to her baseline walking in her room yet but has been able to transfer to the bedside chair. She tells me that she lives in [place] with her son and follows up with [facility] in [place]. She will be started on PT/OT today. She remains on oxygen at her baseline of 3-4 L. Her family are hoping to take her on a road trip in their RV within the next 2 weeks. The potassium is 3.1. This will be supplemented with 20 mEq p.o. b.i.d. 02/06: Her daughter is asking that her daily azithromycin be resumed. This was apparently started during a recent admission in an attempt to decrease her recurrent pulmonary infection risk. Her chest x-ray has not shown pneumonia but her blood count was elevated. So far we have not been using antibiotics for her. She complains of puffy hands which indeed are present but there is no actual edema. She points to her right lower chest and says that she feels like there is some fluid there that needs to come up. We will increase her Lasix dose to 80 mg IV b.i.d. from 40. The magnesium level is 2.4 with a creatinine of 1.02 and a potassium that came up from 3.1 up to 4.0. 02/07: She reports persistent shortness of breath and weakness. Furosemide was increased yesterday but no significant diuresis noted. She notes right lower chest wall tenderness persists but is less. 02/08: She states she is feeling better with net negative 2500ml urine output since furosemide was increased to 80mg q8hr and metolazone 5mg daily added. Imaging: Chest CTA: 1. No signs of pulmonary emboli. 2. Findings suggestive of interstitial and alveolar pulmonary edema, mildly improved, no pleural effusion seen at this time. 3. Persistent subcutaneous density in the right breast medially, please correlate with findings from local examination for the possibility of malignancy. CXR 02/06: Cardiomegaly and mild interstitial prominence are seen, which are consistent with the given clinical history of CHF. A/P: 1. Acute diastolic heart failure, active. Slow to resolve but significant output overnight with net -2500ml balance since midnight 2. Demand ischemia, active. 3. Chronic hypoxic respiratory failure, stable. 4. Possible component of COPD exacerbation, active. 5. CAD with 6 previous cardiac stents, active. 6. Hypertension, active. 7. Hyperlipidemia, active. 8. Hypokalemia: K 3.1 on 02/05. Started on Oral Kcl. 9. CT scan Right Breast abnormality, correlate with PCP exam as an outpatient. PLAN: -heparin drip for 48 hours completed, continue other chronic medical therapy. -diurese with Lasix 80 mg IV q.8., increased 02/07 -continue metolazone 5mg daily added 02/07 -supplement for hypokalemia -continue prednisone at current dosing of 20 mg a day. -bronchodilators as needed. -usual insulin glargine (25 HS) and Lispro (7 AC) for sugar control. -reviewed with her credit union field examiner, Dr. Ellington on admission. Recommends outpatient follow up with consideration of repeat coronary angiogram. -PT/OT for placement requirements -consider resumption of daily azithromycin at discharge. -monitor labs, pending today She is full code Daughter is proxy decision maker. Lovenox for DVT prevention Exam Vital Signs (past 8 hours): - 02/08/25 04:00 Temperature 97.7 F Pulse Rate 69 Respiratory Rate 18 Blood Pressure 139/54 L Pulse Oximetry 98 Oxygen Flow Rate 0 Fraction of Inspired Oxygen 32 SaO2/FiO2 Ratio 309 Oxygen Delivery Method Nasal Cannula,CPAP Oxygen Flow Rate 0 Narrative Exam Narrative: Heart is regular rate and rhythm without murmur Lungs have bibasilar crackles Abdomen soft with pitting edema, improved from yesterday Extremities have no ankle edema, bilateral hand trace to 1+ edema She looks very weak but is alert and oriented x3, in no apparent distress. Objective Labs 02/07/25 14:00 02/07/25 14:00 Labs: Laboratory Results - last 24 hr 02/07/25 02/07/25 02/07/25 11:28 14:00 16:40 WBC 12.2 H RBC 4.93 Hgb 11.9 L Hct 38.0 MCV 76.9 L MCH 24.2 L MCHC 31.5 RDW 19.9 H Plt Count 163 Neut % (Auto) 86.8 H Lymph % (Auto) 8.5 L [place] % (Auto) 3.6 Eos % (Auto) 0.5 L Baso % (Auto) 0.6 Neut # (Auto) 30524 H Lymph # (Auto) 1000 L [place] # (Auto) 400 Eos # (Auto) 100 Baso # (Auto) 100 Sodium 131 L Potassium 4.5 Chloride 92 L Carbon Dioxide 34 H BUN 36 H Creatinine 1.10 H Estimated GFR 49 L BUN/Creatinine Ratio 32.7 H Glucose 247 H D POC Whole Bld Glucose 223 H D 290 H Calcium 8.9 02/07/25 20:32 WBC RBC Hgb Hct MCV MCH MCHC RDW Plt Count Neut % (Auto) Lymph % (Auto) [place] % (Auto) Eos % (Auto) Baso % (Auto) Neut # (Auto) Lymph # (Auto) [place] # (Auto) Eos # (Auto) Baso # (Auto) Sodium Potassium Chloride Carbon Dioxide BUN Creatinine Estimated GFR BUN/Creatinine Ratio Glucose POC Whole Bld Glucose 347 H Calcium PFSH Medical History Chronic respiratory failure with hypoxia Skin cancer NSTEMI (non-ST elevated myocardial infarction) Diastolic heart failure Cardiac arrest Chest pain Hypertension Hyperlipidemia Coronary artery disease Left hamstring muscle strain UTI (urinary tract infection) Surgical History H/O right heart catheterization History of breast implant removal History of breast surgery History of appendectomy History of cholecystectomy History of total abdominal hysterectomy History of coronary artery stent placement Family History Father Hypertension Diabetes mellitus Mother Hypertension [place] (myocardial infarction) Sister [place] (myocardial infarction) S/P CABG x 4 Social History household members: children Smoking Status: Never smoker alcohol intake: never IH PROFEE Health Inspector Document charge(s): No Charge Codes Subsequent inpatient/observation care: [id number]
[2025-02-08 08:55] LABS: Carbon Dioxide 37 mmol/L (22-32)
[2025-02-08 08:59] LABS: HEMOLYSIS 94 (0-50)
[2025-02-08 09:06] VITALS: BP 150/69; PULSE 77; RESP 15; TEMP 36.1; O2SAT 99
[2025-02-08] MEDS: INSULIN GLARGINE 100 UNIT/ML 3ML PEN 10 UNIT SUBCUT (09:23)
[2025-02-08] MEDS: INSULIN LISPRO 100 UNIT/ML 3ML VIAL SUBCUT ×3 (09:23→17:37)
[2025-02-08] MEDS: INSULIN LISPRO 100 UNIT/ML 3ML VIAL 8 UNIT SUBCUT (09:24)
[2025-02-08] MEDS: ONDANSETRON 4 MG ODT SL (09:29)
[2025-02-08] MEDS: ESCITALOPRAM 10 MG TABLET 20 MG PO (09:56)
[2025-02-08] MEDS: METOPROLOL IR 25 MG TABLET 12.5 MG PO ×2 (09:56→20:44)
[2025-02-08] MEDS: RANOLAZINE 500 MG TAB.ER.12H PO ×2 (09:56→20:43)
[2025-02-08] MEDS: POTASSIUM CHLORIDE 20 MEQ TAB PO (09:56)
[2025-02-08] MEDS: ASPIRIN EC 81 MG TABLET PO (09:56)
[2025-02-08] MEDS: ENOXAPARIN 40 MG/0.4 ML SYRINGE SUBCUT ×2 (09:58→20:44)
[2025-02-08] MEDS: SODIUM CHLORIDE 0.9% FLUSH 10 ML IV ×2 (10:06→21:00)
--- NOTE | 2025-02-08 11:35 | PT.IPTN ---
Current Diagnoses Acute diastolic (congestive) heart failure (02/03/25) Physical Therapy Treatment Note M2 PT-IP Current Condition Start: 02/06/25 13:54 Freq: NEEDED Status: Active Protocol: Document 02/06/25 11:16 DLM (Rec: 02/06/25 14:23 DLM Desktop) Physical Therapy Current Condition Current Condition Evaluation Date 02/06/25 Treatment Diagnosis CHF, impaired gait and activity tolerance Onset Date 02/03/25 M3 PT-IP Subjective Start: 02/06/25 13:54 Freq: NEEDED Status: Active Protocol: Document 02/08/25 11:35 AB (Rec: 02/08/25 12:42 AB Desktop) Subjective Physical Therapy Visit Type Type Treatment Note Visit Start Time 11:35 Visit Stop Time 12:05 Number of AUTO CAMP ATTENDANT Visits 0 Physical Therapy Visit Comments Patient Comments agreed to do PT M4 PT-IP Mobility and Gait Start: 02/06/25 13:54 Freq: NEEDED Status: Active Protocol: Document 02/08/25 11:35 AB (Rec: 02/08/25 12:42 AB Desktop) PT-Bed Mobility Assessment Supine to Sit Supine to Sit Maximum Assistance,1 Person Assistance,Head of Bed Elevated,Bedrails Sit to Supine Sit to Supine Maximum Assistance,1 Person Assistance,2 Person Assistance,Bedrails PT-Transfer Assessment Sit to and From Stand Sit to and from Minimal Assistance,Maximum Assistance,1 Person Stand Assistance,2 Person Assistance,Use of Upper Extremities Equipment Transfer Assistive Gait Belt,4 Wheeled Walker Device Orthotic/Prosthetic No Devices or Brace: Transfers Transfer Destination Bed,Chair,Toilet Transfer Technique Stand Step Pivot Transfer Ability Level of Assist Minimal Assistance,Maximum Assistance,1 Person Assistance,2 Person Assistance,Use of Upper Extremities Comments Mobility Comments pt in bed and agreeable to do PT. supine to sit max A and max cues. HOB elevated and pt used bed rail to assist. BP sitting on EOB: 121/48, O2 sat: 97% and MT: 71. c/o dizziness but decreased after a few minutes of sitting on EOB. pt requested to use the toilet. sit to stand min a and step transfer to bedside commode min A and cues using 4WW. pt c/o increase dizziness and stated that she feels she is going to pass out. call light on and notified nursing staff. BP checked: 88/55 MT: 56 and O2 sat: 95. nurse aware of BP. NAC in room to assist and assisted pt with hygiene care. pt tends to keep her eyes closed due to dizziness. assisted pt back to EOB max A x 2 and max cues for step pivot transfers. max A x 2 for sit to supine. positioned pt in bed. BP checked: 135/53, O2 sat: 100 MT: 87. call light and table placed within reach. M5 PT-IP Objective Assessments Start: 02/06/25 13:54 Freq: NEEDED Status: Active Protocol: Document 02/06/25 11:16 DLM (Rec: 02/06/25 14:23 DLM Desktop) Orientation Orientation/Cognition Level of Alertness Alert Orientation Name,Age,Birthday,Month,Date,Year,Day of Week,Place, Situation Language Function No Deficits Noted Ability Safety Awareness Understands Safety Issues Memory Description No Deficits Noted Gross Range of Motion Upper Extremity ROM Assessment Within Functional Limits Lower Extremity ROM Assessment Within Functional Limits Strength Upper Extremity Strength Assessment Within Functional Limits Lower Extremity Strength Assessment Within Functional Limits Coordination Assessment Gross Coordination Gross Coordination WNL Sensation Assessment Sensation Gross Sensation WNL Muscle Tone Muscle Tone WNL Yes M6 PT-IP Treatment Start: 02/06/25 13:54 Freq: NEEDED Status: Active Protocol: Document 02/08/25 11:35 AB (Rec: 02/08/25 12:42 AB Desktop) Physical Therapy Treatment Education Education Provided Safety M7 PT-IP Assessment and Plan Start: 02/06/25 13:54 Freq: NEEDED Status: Active Protocol: Document 02/08/25 11:35 AB (Rec: 02/08/25 12:42 AB Desktop) PT Summary Assessment and Plan Potential Rehabilitation Fair Potential Summary Impairments Pain Progress Towards Slow Progress due to Medical Issues,Slow Progress due Goals to Activity Tolerance,Slow Progress - Other Assessment Summary pt requiring min A for transfers using 4WW but required max A x 2 for transfer back to bed due to hypotension. BP in sittin/48 and decreased to 88/55 after step transfer to bedside commode. pt with c/o dizziness . nurse aware of decrease BP. will continue to assess progress. Goals Bed Mobility Goal Independent Transfer Goal Independent,Four Wheeled Walker Gait Goal Standby Assistance,Front Wheel Walker Gait Distance 60 feet Other Goals up/down 4 steps with one rail and CG assist Days to Meet Goals 5 Frequency of Treatment Frequency Of Once a Day Treatment Treatment Plan Physical Therapy Bed Mobility Training,Transfer Training,Gait Training, Treatment Plan Therapeutic Exercise,Balance Retraining,Post Op Education,Discharge Planning,Neuromuscular Re-ed Precautions Other Precautions 3 LPM oxygen at baseline BP Recommendations To Nursing Amount of Assist 1 Person Assist Needed Discharge Recommendations PT Discharge Home with 05/12 Assist Available,Home Health,SNF Rehab, Recommendations Home vs SNF Transportation Needs Private Vehicle,Wheelchair/Cabulance at Discharge - PT assist 1
[2025-02-08] MEDS: INSULIN LISPRO 100 UNIT/ML 3ML VIAL 10 UNIT SUBCUT (13:31)
[2025-02-08 13:32] VITALS: BP 150/62; PULSE 80; RESP 17; TEMP 35.9; O2SAT 99
[2025-02-08 20:07] VITALS: BP 137/70; PULSE 81; RESP 19; TEMP 36.4; O2SAT 99
[2025-02-08] MEDS: ATORVASTATIN 20 MG TABLET 80 MG PO (20:44)
[2025-02-09] VITALS (8 sets, daily range): BP systolic 92–161; BP diastolic 55–74; PULSE 65–84; RESP 15–18; TEMP 35.7–36.5; O2SAT 92–100
[2025-02-09] MEDS: POTASSIUM CHLORIDE 20 MEQ TAB PO ×2 (08:30→17:04)
[2025-02-09] MEDS: ASPIRIN EC 81 MG TABLET PO (08:30)
[2025-02-09] MEDS: RANOLAZINE 500 MG TAB.ER.12H PO ×2 (08:30→20:35)
[2025-02-09] MEDS: INSULIN LISPRO 100 UNIT/ML 3ML VIAL SUBCUT ×4 (08:30→20:36)
[2025-02-09] MEDS: ESCITALOPRAM 10 MG TABLET 20 MG PO (08:30)
[2025-02-09] MEDS: ENOXAPARIN 40 MG/0.4 ML SYRINGE SUBCUT (08:31)
[2025-02-09] MEDS: INSULIN LISPRO 100 UNIT/ML 3ML VIAL 8 UNIT SUBCUT (08:31)
[2025-02-09] MEDS: METOPROLOL IR 25 MG TABLET 12.5 MG PO ×2 (08:32→20:35)
[2025-02-09] MEDS: SODIUM CHLORIDE 0.9% FLUSH 10 ML IV ×2 (08:32→20:36)
[2025-02-09] MEDS: INSULIN GLARGINE 100 UNIT/ML 3ML PEN 10 UNIT SUBCUT (08:32)
[2025-02-09 09:35] LABS: Add Manual Diff / Slide Review NO; Hematocrit 41.4 % (36-46); Hemoglobin 13.7 g/dL (12.0-16.0); Lymphocytes Absolute Auto 2200 /uL (1100-4500); Mean Corpuscular HGB Conc 33.2 % (30-36); Mean Corpuscular Hemoglobin 25.1 PG (26-34); Mean Corpuscular Volume 75.6 fL (80-100); Platelet Count 163 X10^3/uL (150-400)
[2025-02-09 09:50] LABS: Blood Urea Nitrogen 57 mg/dL (7-17); Calcium 9.2 mg/dL (8.4-10.2); Chloride 80 mmol/L (98-107); Estimated Glomerular Filt Rate 31 mL/min (>60); Glucose 198 mg/dL (70-99); HEMOLYSIS < 15 (0-50); Potassium 3.5 mmol/L (3.4-5.1); Sodium 129 mmol/L (137-145)
[2025-02-09 09:58] LABS: Carbon Dioxide 39 mmol/L (22-32)
[2025-02-09] MEDS: guaiFENesin/DM 200 mg/20 mg/10 mL SYRUP PO ×2 (11:21→18:35)
[2025-02-09] MEDS: INSULIN LISPRO 100 UNIT/ML 3ML VIAL 10 UNIT SUBCUT ×2 (11:59→17:02)
--- NOTE | 2025-02-09 13:57 | P.PN_ITS ---
Subjective Subjective Interval history: 89 yo female w/hx of chronic hypoxic respiratory failure on 3lpm, ILD, CAD s/p 6 stents, and chronic CHFpEF, admitted w/on shortness of breath, difficulty expectorating her sputum) she also reported to the emergency department physician that her sputum appeared to be the color of whatever it was she was drinking, implying she is aspirating), and having a persistent nighttime cough. Since admission, she was placed on IV diuresis with some improvement. However, she notes she developed nausea, vomiting, and diarrhea yesterday. She states she has felt worse each day in terms of feeling weaker and lightheaded. Today, she states she feels dizzy simply sitting up. She has had no further nausea, vomiting, or diarrhea. She states she feels as though nobody has been listening to her in regard to her symptoms. She continues to feel as though she needs to expectorate sputum but is unable to do so. Exam Vital Signs (past 8 hours): - 02/09/25 08:00 02/09/25 12:00 Temperature 97.7 F Pulse Rate 84 Pulse Rate [Orthostatic Lying] 72 Pulse Rate [Orthostatic Standing] 77 Respiratory Rate 15 Blood Pressure 107/63 Blood Pressure [Orthostatic Lying] 148/74 H Blood Pressure [Orthostatic Standing] 92/55 L Pulse Oximetry 94 Oxygen Flow Rate 3 Fraction of Inspired Oxygen 32 SaO2/FiO2 Ratio 309 Oxygen Delivery Method Nasal Cannula,CPAP Oxygen Flow Rate 3 Narrative Exam Narrative: GEN: Very pleasant elderly female, Alert and oriented x 3, NAD HEENT:NC, Face symmetric CHEST: Respiratory excursions symmetric, course in the bases, otherwise CTAB CV: RRR, no M/R/G ABD: Soft, obese, NT/ND, BT present in all 4 quadrants, body habitus limits exam EXTR: warm, well perfused, no C/C/E SKIN: warm and dry, no rash NEURO: Alert and oriented x 3, nonfocal Objective Labs 02/09/25 09:20 02/09/25 09:20 Labs: Laboratory Results - last 24 hr 02/08/25 02/08/25 02/09/25 17:23 20:20 08:17 WBC RBC Hgb Hct MCV MCH MCHC RDW Plt Count Neut % (Auto) Lymph % (Auto) [place] % (Auto) Eos % (Auto) Baso % (Auto) Neut # (Auto) Lymph # (Auto) [place] # (Auto) Eos # (Auto) Baso # (Auto) Sodium Potassium Chloride Carbon Dioxide BUN Creatinine Estimated GFR BUN/Creatinine Ratio Glucose POC Whole Bld Glucose 155 H 135 H 148 H Calcium 02/09/25 02/09/25 09:20 11:25 WBC 12.6 H RBC 5.47 H Hgb 13.7 Hct 41.4 MCV 75.6 L MCH 25.1 L MCHC 33.2 RDW 19.9 H Plt Count 163 Neut % (Auto) 75.2 H Lymph % (Auto) 17.7 L [place] % (Auto) 6.3 Eos % (Auto) 0.3 L Baso % (Auto) 0.5 Neut # (Auto) 9500 H Lymph # (Auto) 2200 [place] # (Auto) 800 Eos # (Auto) 0 Baso # (Auto) 100 Sodium 129 L Potassium 3.5 Chloride 80 L Carbon Dioxide 39 H BUN 57 H Creatinine 1.59 H Estimated GFR 31 L BUN/Creatinine Ratio 35.8 H Glucose 198 H POC Whole Bld Glucose 239 H Calcium 9.2 PFSH Medical History Chronic respiratory failure with hypoxia Skin cancer NSTEMI (non-ST elevated myocardial infarction) Diastolic heart failure Cardiac arrest Chest pain Hypertension Hyperlipidemia Coronary artery disease Left hamstring muscle strain UTI (urinary tract infection) Surgical History H/O right heart catheterization History of breast implant removal History of breast surgery History of appendectomy History of cholecystectomy History of total abdominal hysterectomy History of coronary artery stent placement Family History Father Hypertension Diabetes mellitus Mother Hypertension [place] (myocardial infarction) Sister [place] (myocardial infarction) S/P CABG x 4 Social History household members: children Smoking Status: Never smoker alcohol intake: never Assessment & Plan Assessment & Plan narrative: 1. Suspected interstitial lung disease flare Patient has had interstitial lung disease dating back for approximately 6 years. She has been having increasing symptoms. She reports last month she believes she was having increased congestive heart failure symptoms, but this admission felt different to her. Will decrease diuresis, as Cardiology had her on only 20 mg a day. At that dose she definitely gained weight and developed a CHF flare. However, the current dose to be too high for her. She is receiving 40 mg twice daily on an outpatient basis. She is over diuresed presently as she is getting orthostatic just by simply sitting up in bed. Will plan to reduce her outpatient dose of Lasix to 20 mg twice daily to be held for systolic blood pressure less than 110. Will give a small fluid bolus 500 cc today and plan to restart Lasix tomorrow morning if her orthostatic symptoms have resolved. Will continue prednisone at 20 mg daily. Will give a 3 day course of azithromycin both for anti-inflammatory purposes and on the off chance she does have a mild infectious etiology. However, if she is in fact aspirating this would not cover anaerobic organisms. Will add dextromethorphan and guaifenesin as well. Discussed taking Delsym on an outpatient basis as that is pure dextromethorphan and Mucinex 1200 mg b.i.d. which would help her interstitial lung disease cough. 2. Orthostatic hypotension in the setting of chronic congestive heart failure with preserved ejection fraction As above will give a 500 cc normal saline bolus. She appears to be over diuresed. We will plan to DC IV diuresis and resume furosemide at a lower dose 20 mg twice daily. She does have some FRANCESCA as well. Would recommend that be her ongoing outpatient dose as at home her daughter noted she would become pale and dizzy on the 40 mg twice daily dosing as well. We did discuss that she would take an extra dose of furosemide where she would gained 3 lb in 24 hours or 5 lb in [address] Ellington her intermediate accountant had instructed previously. 3. Chronic hypoxic respiratory failure Remains on baseline oxygen need at 3 liters/minute. 4. Right breast mass This was seen as far back as [address] scan. It is unclear if she has pursued any sort of workup. Does need to have an outpatient diagnostic mammogram if she wants to pursue further diagnosis. 5. Coronary artery disease Presently asymptomatic. Previous stenting. Continue atorvastatin, Ranexa, aspirin. 6. Diabetes mellitus type 2, insulin requiring Overall, blood sugars ranged from 135-239. Suspect her blood sugars are more difficult to control related to prednisone. 7. Generalized weakness nursing home was recommended but she has declined. I have recommended that she stay in bed today secondary to her orthostasis. Would recommend therapies reassessed tomorrow. 8. Class 3 obesity BMI is 43.1. She would greatly benefit from weight reduction as she has an increased morbidity and mortality Code status Full Prophylaxis On heparin Disposition Pending Time-Based Coding :: [TOTAL MINUTES] spent with patient and on the chart (including review of chart, obtaining history, exam, reviewing outside data, placing orders, documenting exam and treatment plan, and counseling patient) on [DATE].
--- NOTE | 2025-02-09 14:21 | CM.DPC ---
DCP note DELIVERY NURSE reviewed EMR anticipate dc tomorrow per provider. labs improving but not ideal for dc yet. Per PT, continues to not tolerate much with mobility. 5ft of ambulation. per previous CM notes pt adamantly refuses SNF. P: dc home with dtr and Stella SIMMONS at dc. will continue to follow closely for DCP Coordination Genesis grullon, DELIVERY NURSE
[2025-02-09] MEDS: AZITHROMYCIN 500 MG in DEXTROSE 5% IN WATER 250 ML 250 MG IV (14:54)
[2025-02-09] MEDS: ATORVASTATIN 20 MG TABLET 80 MG PO (20:35)
[2025-02-09] MEDS: INSULIN GLARGINE 100 UNIT/ML 3ML PEN 25 UNIT SUBCUT (20:36)
[2025-02-09] MEDS: HEPARIN 5,000 UNIT/ML VIAL 7500 UNIT SUBCUT (21:12)
[2025-02-10] VITALS: BP 139/62; PULSE 56; RESP 18; TEMP 36.4; O2SAT 100
[2025-02-10 04:55] VITALS: BP 138/69; PULSE 63; RESP 16; TEMP 35.6; O2SAT 97
[2025-02-10] MEDS: HEPARIN 5,000 UNIT/ML VIAL 7500 UNIT SUBCUT ×3 (05:55→21:10)
[2025-02-10] MEDS: guaiFENesin/DM 200 mg/20 mg/10 mL SYRUP PO (05:55)
[2025-02-10 06:47] LABS: Add Manual Diff / Slide Review NO; Hematocrit 39.1 % (36-46); Hemoglobin 13.0 g/dL (12.0-16.0); Lymphocytes Absolute Auto 2400 /uL (1100-4500); Mean Corpuscular HGB Conc 33.3 % (30-36); Mean Corpuscular Hemoglobin 25.2 PG (26-34); Mean Corpuscular Volume 75.5 fL (80-100); Platelet Count 146 X10^3/uL (150-400)
[2025-02-10 07:02] LABS: Blood Urea Nitrogen 52 mg/dL (7-17); Calcium 9.4 mg/dL (8.4-10.2); Chloride 82 mmol/L (98-107); Estimated Glomerular Filt Rate 37 mL/min (>60); Glucose 110 mg/dL (70-99); HEMOLYSIS < 15 (0-50); Potassium 3.4 mmol/L (3.4-5.1); Sodium 127 mmol/L (137-145)
[2025-02-10 07:34] LABS: Carbon Dioxide 39 mmol/L (22-32)
[2025-02-10 08:45] VITALS: BP 136/99; PULSE 68; RESP 16; TEMP 35.9; O2SAT 96
[2025-02-10] MEDS: RANOLAZINE 500 MG TAB.ER.12H PO ×2 (09:17→21:08)
[2025-02-10] MEDS: ESCITALOPRAM 10 MG TABLET 20 MG PO (09:17)
[2025-02-10] MEDS: METOPROLOL IR 25 MG TABLET 12.5 MG PO ×2 (09:17→21:09)
[2025-02-10] MEDS: ASPIRIN EC 81 MG TABLET PO (09:17)
[2025-02-10] MEDS: POTASSIUM CHLORIDE 10 MEQ TAB 20 MEQ PO ×2 (09:18→16:48)
[2025-02-10] MEDS: INSULIN LISPRO 100 UNIT/ML 3ML VIAL 10 UNIT SUBCUT (09:18)
[2025-02-10] MEDS: SODIUM CHLORIDE 0.9% FLUSH 10 ML IV ×2 (09:18→21:10)
[2025-02-10] MEDS: INSULIN GLARGINE 100 UNIT/ML 3ML PEN 10 UNIT SUBCUT (09:20)
[2025-02-10] MEDS: FUROSEMIDE 20 MG TABLET PO (09:52)
--- NOTE | 2025-02-10 10:44 | SLP.IPNOTE ---
BRUSH MACHINE SETTER reviewed Pt chart, however unable to determine why speech eval was ordered. BRUSH MACHINE SETTER communicated with nursing who reports no observed swallowing difficulties by Pt. BRUSH MACHINE SETTER communicated with Pt and Pt daugther who also report no current swallow difficulties or history of swallow difficulties, except when taking steroid medication, however takes it cut in half without trouble. BRUSH MACHINE SETTER communicated with MD Soni who okayed for order to be d/c'd at this time. BRUSH MACHINE SETTER recommended another referral be placed if change in Pt's status occur.
--- NOTE | 2025-02-10 11:51 | PT.IPTN ---
Current Diagnoses Acute diastolic (congestive) heart failure (02/03/25) Physical Therapy Treatment Note M2 PT-IP Current Condition Start: 02/06/25 13:54 Freq: NEEDED Status: Active Protocol: Document 02/06/25 11:16 DLM (Rec: 02/06/25 14:23 DLM Desktop) Physical Therapy Current Condition Current Condition Evaluation Date 02/06/25 Treatment Diagnosis CHF, impaired gait and activity tolerance Onset Date 02/03/25 M3 PT-IP Subjective Start: 02/06/25 13:54 Freq: NEEDED Status: Active Protocol: Document 02/10/25 11:43 AMB (Rec: 02/10/25 11:51 AMB [id number]) Subjective Physical Therapy Visit Type Type Treatment Note Visit Start Time 11:05 Visit Stop Time 11:40 Number of TOLL TEST WORKER Visits 0 Physical Therapy Visit Comments Patient Comments Agreeable to PT, daughter at bedside M4 PT-IP Mobility and Gait Start: 02/06/25 13:54 Freq: NEEDED Status: Active Protocol: Document 02/10/25 11:43 AMB (Rec: 02/10/25 11:51 AMB [id number]) PT-Bed Mobility Assessment Rolling Type of Rolling Roll to Left Level of Assist Minimal Assistance Supine to Sit Supine to Sit Maximum Assistance,1 Person Assistance,Head of Bed Elevated,Bedrails Sit to Supine Sit to Supine Maximum Assistance,1 Person Assistance,Bedrails PT-Transfer Assessment Comments Mobility Comments Pt continues to note significant dizziness that is limiting mobility. BP in supine 159/65, with rolling and sitting edge of bed BP 138/68. Patient then states I need to lie down after sitting EOB for 2 minutes to see if dizziness would resolve. Attempted sitting EOB 1 more time and again patient stated too dizzy to stand. M5 PT-IP Objective Assessments Start: 02/06/25 13:54 Freq: NEEDED Status: Active Protocol: Document 02/06/25 11:16 DLM (Rec: 02/06/25 14:23 DLM Desktop) Orientation Orientation/Cognition Level of Alertness Alert Orientation Name,Age,Birthday,Month,Date,Year,Day of Week,Place, Situation Language Function No Deficits Noted Ability Safety Awareness Understands Safety Issues Memory Description No Deficits Noted Gross Range of Motion Upper Extremity ROM Assessment Within Functional Limits Lower Extremity ROM Assessment Within Functional Limits Strength Upper Extremity Strength Assessment Within Functional Limits Lower Extremity Strength Assessment Within Functional Limits Coordination Assessment Gross Coordination Gross Coordination WNL Sensation Assessment Sensation Gross Sensation WNL Muscle Tone Muscle Tone WNL Yes M6 PT-IP Treatment Start: 02/06/25 13:54 Freq: NEEDED Status: Active Protocol: Document 02/10/25 11:43 AMB (Rec: 02/10/25 11:51 AMB [id number]) Physical Therapy Treatment Other Treatments Other Treatment Monitored HR and O2 sats during activity Performed M7 PT-IP Assessment and Plan Start: 02/06/25 13:54 Freq: NEEDED Status: Active Protocol: Document 02/10/25 11:43 AMB (Rec: 02/10/25 11:51 AMB [id number]) PT Summary Assessment and Plan Potential Rehabilitation Fair Potential Summary Impairments Pain Progress Towards Slow Progress due to Medical Issues,Slow Progress due Goals to Activity Tolerance,Slow Progress - Other Assessment Summary Discussed patient's dizziness and blood pressure with her and daughter. Daughter states she is planning to get a commode to put next to patient's chair, as patient states her goal is to get back to her chair. PT explained that she is not yet transferring independently and needs to be able to do so for safe d/ c plan home. Goals Bed Mobility Goal Independent Transfer Goal Independent,Four Wheeled Walker Gait Goal Standby Assistance,Front Wheel Walker Gait Distance 60 feet Other Goals up/down 4 steps with one rail and CG assist Days to Meet Goals 5 Frequency of Treatment Frequency Of Once a Day Treatment Treatment Plan Physical Therapy Bed Mobility Training,Transfer Training,Gait Training, Treatment Plan Therapeutic Exercise,Balance Retraining,Post Op Education,Discharge Planning,Neuromuscular Re-ed Precautions Other Precautions 3 LPM oxygen at baseline BP Recommendations To Nursing Amount of Assist 1 Person Assist Needed Discharge Recommendations PT Discharge Home with 05/12 Assist Available,Home Health,SNF Rehab, Recommendations Home vs SNF Transportation Needs Private Vehicle,Wheelchair/Cabulance at Discharge - PT assist 1
[2025-02-10] MEDS: INSULIN LISPRO 100 UNIT/ML 3ML VIAL SUBCUT ×3 (12:19→21:09)
[2025-02-10] MEDS: INSULIN LISPRO 100 UNIT/ML 3ML VIAL 12 UNIT SUBCUT ×2 (12:20→16:44)
--- NOTE | 2025-02-10 13:04 | P.PN_ITS ---
Subjective Subjective Date Patient Seen: 02/10/25 Interval history: Chief complaint: Shortness for breath multifactorial including interstitial lung disease acute on chronic diastolic congestive heart History of present illness: 02/03: 89-year-old female with history of COPD, chronic hypoxic respiratory failure, CAD and 6 cardiac stents. She was in the hospital from January 17 to and was treated for heart failure as well as COPD exacerbation. She would well for about a week and then has developed recurrent shortness a breath. She was on her baseline 3 L of oxygen has some rhinorrhea and a cough. She does have some leg edema and notes that she has difficulty with oral Lasix causing a diuresis and in fact her legs tend to feel heavier. In the ED, her troponins were elevated she was started on a heparin drip. In addition, she was given antibiotics for possible infection and bronchodilators. She denies any chest pain. She was mixed feelings about ongoing cardiac procedures but would likely consider a repeat coronary angiogram if her blast furnace tender Dr. Ellington recommended it. Hospital course: troponins: 0.129, 0.130, 0.131. 02/05 Remains on a heparin drip, completing 48 hours this afternoon. No chest pain, but quite fatigued. Mild dyspnea and a dry cough. She has not been back to her baseline walking in her room yet but has been able to transfer to the bedside chair. She tells me that she lives in [place] with her son and follows up with [facility] in [place]. She will be started on PT/OT today. She remains on oxygen at her baseline of 3-4 L. Her family are hoping to take her on a road trip in their RV within the next 2 weeks. The potassium is 3.1. This will be supplemented with 20 mEq p.o. b.i.d. 02/06: Her daughter is asking that her daily azithromycin be resumed. This was apparently started during a recent admission in an attempt to decrease her recurrent pulmonary infection risk. Her chest x-ray has not shown pneumonia but her blood count was elevated. So far we have not been using antibiotics for her. She complains of puffy hands which indeed are present but there is no actual edema. She points to her right lower chest and says that she feels like there is some fluid there that needs to come up. We will increase her to 10 minute dose to 80 mg IV b.i.d. from 40. The magnesium level is 2.4 with a creatinine of 1.02 and a potassium that came up from 3.1 up to 4.0. 02/07: She reports persistent shortness of breath and weakness. Furosemide was increased yesterday but no significant diuresis noted. She notes right lower chest wall tenderness persists but is less. 02/08: She states she is feeling better with net negative 2500ml urine output since furosemide was increased to 80mg q8hr and metolazone 5mg daily added. 02/09: Since admission, she was placed on IV diuresis with some improvement. However, she notes she developed nausea, vomiting, and diarrhea yesterday. She states she has felt worse each day in terms of feeling weaker and lightheaded. Today, she states she feels dizzy simply sitting up. She has had no further nausea, vomiting, or diarrhea. She states she feels as though nobody has been listening to her in regard to her symptoms. She continues to feel as though she needs to expectorate sputum but is unable to do so. 02/10: Patient wants to continue therapeutic treatment but feels just completely drained after taking furosemide. Patient says I want to live she has had 2 babies in an ICU that she wants to see in [place]. I expressed misgivings about this venture her condition could decompensate while on the road and it could be very very uncomfortable. The upshot of the discussions that we will reduce Lasix to 10 mg work with physical therapy get her mobile. I expressed that she may do better with shelter. Patient said many times through the interview I am not ready to yet. PT-Transfer Assessment Comments Mobility Comments Pt continues to note significant dizziness that is limiting mobility. BP in supine 159/65, with rolling and sitting edge of bed BP 138/68. Patient then states I need to lie down after sitting EOB for 2 minutes to see if dizziness would resolve. Attempted sitting EOB 1 more time and again patient stated too dizzy to stand. Imaging: Chest CTA: 1. No signs of pulmonary emboli. 2. Findings suggestive of interstitial and alveolar pulmonary edema, mildly improved, no pleural effusion seen at this time. 3. Persistent subcutaneous density in the right breast medially, please correlate with findings from local examination for the possibility of malignancy. CXR 9/25: Cardiomegaly and mild interstitial prominence are seen, which are consistent with the given clinical history of CHF. Review of systems: No chest pain The nausea vomit A diary Physical exam: Elderly female very pleasant HEENT unremarkable Heart sounds distant Lung sounds distant 1+ edema of lower extremities Abdomen benign Assessment and plan: 1. Suspected interstitial lung disease flare * Patient has had interstitial lung disease dating back for approximately 6 years. She has been having increasing symptoms. She reports last month she believes she was having increased congestive heart failure symptoms, but this admission felt different to her. Will decrease diuresis, as Cardiology had her on only 20 mg a day. At that dose she definitely gained weight and developed a CHF flare. * However, the current dose to be too high for her. She is receiving 40 mg twice daily on an outpatient basis. She is over diuresed presently as she is getting orthostatic just by simply sitting up in bed. Will plan to reduce her outpatient dose of Lasix to 20 mg twice daily to be held for systolic blood pressure less than 110. Will give a small fluid bolus 500 cc today and plan to restart Lasix tomorrow morning if her orthostatic symptoms have resolved. * Will continue prednisone at 20 mg daily. Will give a 3 day course of azithromycin both for anti-inflammatory purposes and on the off chance she does have a mild infectious etiology. However, if she is in fact aspirating this would not cover anaerobic organisms. * Will add dextromethorphan and guaifenesin as well. Discussed taking Delsym on an outpatient basis as that is pure dextromethorphan and Mucinex 1200 mg b.i.d. which would help her interstitial lung disease cough. 2. Orthostatic hypotension in the setting of chronic congestive heart failure with preserved ejection fraction * As above will give a 500 cc normal saline bolus. She appears to be over diuresed. * We will plan to DC IV diuresis and resume furosemide at a lower dose 20 mg twice daily. * She does have some FRANCESCA as well. Would recommend that be her ongoing outpatient dose as at home her daughter noted she would become pale and dizzy on the 40 mg twice daily dosing as well. * We did discuss that she would take an extra dose of furosemide where she would gained 3 lb in 24 hours or 5 lb in [address] Ellington her blast furnace tender had instructed previously. 3. Chronic hypoxic respiratory failure * Remains on baseline oxygen need at 3 liters/minute. 4. Right breast mass * This was seen as far back as [address] scan. It is unclear if she has pursued any sort of workup. Does need to have an outpatient diagnostic mammogram if she wants to pursue further diagnosis. 5. Coronary artery disease * Presently asymptomatic. Previous stenting. Continue atorvastatin, Ranexa, aspirin. 6. Diabetes mellitus type 2, insulin requiring * Overall, blood sugars ranged from 135-239. Suspect her blood sugars are more difficult to control related to prednisone. 7. Generalized weakness * care home was recommended but she has declined. I have recommended that she stay in bed today secondary to her orthostasis. Would recommend therapies reassessed tomorrow. 8. Class 3 obesity * BMI is 43.1. She would greatly benefit from weight reduction as she has an increased morbidity and mortality Code status * Full Prophylaxis * On heparin Disposition * Pending preference of the patient is to discharged home with home health care * Prognosis is guarded for this being workable even in the short term Time-Based Coding 35 minutes [id number] spent with patient and on the chart, including review of chart, obtaining history, exam, reviewing outside data, placing orders, documenting exam and treatment plan, and counseling patient Exam Vital Signs (past 8 hours): - 02/10/25 08:45 Temperature 96.6 F L Pulse Rate 68 Respiratory Rate 16 Blood Pressure 136/99 H Pulse Oximetry 96 Oxygen Flow Rate 0 Fraction of Inspired Oxygen 32 SaO2/FiO2 Ratio 306 Oxygen Delivery Method Nasal Cannula Oxygen Flow Rate 0 Objective Labs 02/10/25 06:35 02/10/25 06:35 Labs: Laboratory Results - last 24 hr 02/09/25 02/09/25 02/10/25 16:33 19:30 06:35 WBC 10.6 RBC 5.18 Hgb 13.0 Hct 39.1 MCV 75.5 L MCH 25.2 L MCHC 33.3 RDW 20.3 H Plt Count 146 L Neut % (Auto) 67.9 Lymph % (Auto) 22.5 L [place] % (Auto) 8.4 Eos % (Auto) 0.5 L Baso % (Auto) 0.7 Neut # (Auto) 7200 H Lymph # (Auto) 2400 [place] # (Auto) 900 Eos # (Auto) 100 Baso # (Auto) 100 Sodium 127 L Potassium 3.4 Chloride 82 L Carbon Dioxide 39 H BUN 52 H Creatinine 1.37 H Estimated GFR 37 L BUN/Creatinine Ratio 38.0 H Glucose 110 H POC Whole Bld Glucose 287 H 232 H Calcium 9.4 02/10/25 02/10/25 08:24 12:01 WBC RBC Hgb Hct MCV MCH MCHC RDW Plt Count Neut % (Auto) Lymph % (Auto) [place] % (Auto) Eos % (Auto) Baso % (Auto) Neut # (Auto) Lymph # (Auto) [place] # (Auto) Eos # (Auto) Baso # (Auto) Sodium Potassium Chloride Carbon Dioxide BUN Creatinine Estimated GFR BUN/Creatinine Ratio Glucose POC Whole Bld Glucose 99 D 150 H Calcium PFSH Medical History Chronic respiratory failure with hypoxia Skin cancer NSTEMI (non-ST elevated myocardial infarction) Diastolic heart failure Cardiac arrest Chest pain Hypertension Hyperlipidemia Coronary artery disease Left hamstring muscle strain UTI (urinary tract infection) Surgical History H/O right heart catheterization History of breast implant removal History of breast surgery History of appendectomy History of cholecystectomy History of total abdominal hysterectomy History of coronary artery stent placement Family History Father Hypertension Diabetes mellitus Mother Hypertension MS (myocardial infarction) Sister MS (myocardial infarction) S/P CABG x 4 Social History household members: children Smoking Status: Never smoker alcohol intake: never Assessment & Plan Time-Based Coding :: [TOTAL MINUTES] spent with patient and on the chart (including review of chart, obtaining history, exam, reviewing outside data, placing orders, documenting exam and treatment plan, and counseling patient) on [DATE].
--- NOTE | 2025-02-10 14:04 | CM.DPC ---
DCP Cont. Reviewed EMR and team rounds for pt's medical status and updates. Per Hospitalist, pt will need 1-more day before being medically stable for home d/c. Monitoring for final needs, and will fax the d/c summary and resumption of care order to [facility] prior to her departure.
[2025-02-10] MEDS: AZITHROMYCIN 250 MG TABLET 500 MG PO (14:07)
[2025-02-10 15:50] VITALS: BP 137/58; PULSE 66; RESP 16; TEMP 36.2; O2SAT 99
[2025-02-10] MEDS: FUROSEMIDE 20 MG TABLET 10 MG PO (16:48)
--- NOTE | 2025-02-10 16:52 | OT.OP.TRT ---
Visit Care Team Role Provider Type Bhumi Addison MD Referring Provider Physician Specialty: Emergency Medicine Address: [address] [place] [address], [address] Email: Zoe Bass PA-C Primary Care Provider Non-Staff Specialty: Medical Address: [address] [place] [address] [address], [place], [address] Email: Bethany Ellington MD Family Provider Physician Specialty: Cardiology Address: [address] [place] [address], [address], [place], [address] Email: [email or web address] Emergency Provider Physician Specialty: Emergency Medicine Address: [address] [place] [address], [address] Email: [email or web address] William Velázquez MD Admit Provider Physician Attending Provider Specialty: Internal Medicine Address: [address] [place] [address], [address] Email: [email or web address]
[2025-02-10 20:45] VITALS: BP 151/57; PULSE 72; RESP 16; TEMP 36.1; O2SAT 97
[2025-02-10] MEDS: ATORVASTATIN 20 MG TABLET 80 MG PO (21:08)
[2025-02-10] MEDS: INSULIN GLARGINE 100 UNIT/ML 3ML PEN 25 UNIT SUBCUT (21:10)
[2025-02-10 22:00] VITALS: O2SAT 96
[2025-02-11] VITALS (7 sets, daily range): BP systolic 125–148; BP diastolic 43–78; PULSE 60–70; RESP 16–21; TEMP 35.6–36.6; O2SAT 97–100
[2025-02-11] MEDS: HEPARIN 5,000 UNIT/ML VIAL 7500 UNIT SUBCUT ×3 (05:07→21:22)
[2025-02-11 06:49] LABS: Blood Urea Nitrogen 46 mg/dL (7-17); Calcium 9.6 mg/dL (8.4-10.2); Chloride 83 mmol/L (98-107); Estimated Glomerular Filt Rate 43 mL/min (>60); Glucose 122 mg/dL (70-99); HEMOLYSIS < 15 (0-50); Potassium 3.6 mmol/L (3.4-5.1); Sodium 127 mmol/L (137-145)
[2025-02-11 06:54] LABS: Carbon Dioxide 36 mmol/L (22-32)
[2025-02-11] MEDS: INSULIN LISPRO 100 UNIT/ML 3ML VIAL 12 UNIT SUBCUT (08:59)
[2025-02-11] MEDS: ESCITALOPRAM 10 MG TABLET 20 MG PO (09:09)
[2025-02-11] MEDS: POTASSIUM CHLORIDE 10 MEQ TAB 20 MEQ PO ×2 (09:09→17:41)
[2025-02-11] MEDS: FUROSEMIDE 20 MG TABLET 10 MG PO ×2 (09:09→17:41)
[2025-02-11] MEDS: RANOLAZINE 500 MG TAB.ER.12H PO ×2 (09:10→21:24)
[2025-02-11] MEDS: ASPIRIN EC 81 MG TABLET PO (09:10)
[2025-02-11] MEDS: SODIUM CHLORIDE 0.9% FLUSH 10 ML IV ×2 (09:10→21:24)
[2025-02-11] MEDS: METOPROLOL IR 25 MG TABLET 12.5 MG PO ×2 (09:10→21:23)
[2025-02-11] MEDS: INSULIN GLARGINE 100 UNIT/ML 3ML PEN 10 UNIT SUBCUT (09:11)
--- NOTE | 2025-02-11 11:55 | CM.DPC ---
DCP Cont. Reviewed EMR and team rounds for pt's medical updates and status. Per Hospitalist, pt will need 1-more day to improve enough for safe d/c home. Monitoring for any evolving, final d/c needs.
[2025-02-11] MEDS: INSULIN LISPRO 100 UNIT/ML 3ML VIAL 6 UNIT SUBCUT ×2 (12:36→17:32)
--- NOTE | 2025-02-11 14:25 | PT.IPTN ---
Current Diagnoses Acute diastolic (congestive) heart failure (02/03/25) Physical Therapy Treatment Note M2 PT-IP Current Condition Start: 02/06/25 13:54 Freq: NEEDED Status: Active Protocol: Document 02/06/25 11:16 DLM (Rec: 02/06/25 14:23 DLM Desktop) Physical Therapy Current Condition Current Condition Evaluation Date 02/06/25 Treatment Diagnosis CHF, impaired gait and activity tolerance Onset Date 02/03/25 M3 PT-IP Subjective Start: 02/06/25 13:54 Freq: NEEDED Status: Active Protocol: Document 02/11/25 14:25 AB (Rec: 02/11/25 16:24 AB [id number]) Subjective Physical Therapy Visit Type Type Treatment Note Visit Start Time 14:25 Visit Stop Time 14:55 Number of CRUSHER LOADER EQUIPMENT OPERATOR Visits 0 Physical Therapy Visit Comments Patient Comments needs motivation to participate M4 PT-IP Mobility and Gait Start: 02/06/25 13:54 Freq: NEEDED Status: Active Protocol: Document 02/11/25 14:25 AB (Rec: 02/11/25 16:24 AB [id number]) PT-Bed Mobility Assessment Supine to Sit Supine to Sit Moderate Assistance,1 Person Assistance,Head of Bed Elevated,Bedrails PT-Transfer Assessment Sit to and From Stand Sit to and from Moderate Assistance,Maximum Assistance,1 Person Stand Assistance,Use of Upper Extremities Equipment Transfer Assistive Gait Belt,Front Wheeled Walker Device Orthotic/Prosthetic No Devices or Brace: Transfers Transfer Destination Bedside Commode Transfer Technique Stand Step Pivot Transfer Ability Level of Assist Minimal Assistance,1 Person Assistance,Use of Upper Extremities Comments Mobility Comments pt in bed and daughter in room. pt initially refusing PT and stated that she is tired and just want to sleep. Encouraged pt to get up with PT. daughter also encouraging pt. pt agreed to get up and wants to use the toilet. supine to sit mod A and cues. pt needing increase rest breaks in between activities. (+) SOB but O2 sat at 98 -100% with 3L/min O2. sit to stand max A and max cues and step transfer to bedside commode min A and cues using FWW. pt needing assist with brief management. pt with L posterior arm bleeding and daughter stated that this is from the heparin shot. needed gown change and assist pt. informed nurse regarding bleeding. pt also assisted with brief management. sit to stand mod to max A and max cues. nurse assisted with hygiene care . min A for standing balance using fWW. pt was able to take ~ 3-4 steps using FWW to transfer to the chair min A and cues. refused further activities. positioned pt on the chair. call light and table placed within reach. Gait Assessment Comments Gait Comments was able to take 3-4 steps using fWW from bedside commode to chair M5 PT-IP Objective Assessments Start: 02/06/25 13:54 Freq: NEEDED Status: Active Protocol: Document 02/06/25 11:16 DLM (Rec: 02/06/25 14:23 DLM Desktop) Orientation Orientation/Cognition Level of Alertness Alert Orientation Name,Age,Birthday,Month,Date,Year,Day of Week,Place, Situation Language Function No Deficits Noted Ability Safety Awareness Understands Safety Issues Memory Description No Deficits Noted Gross Range of Motion Upper Extremity ROM Assessment Within Functional Limits Lower Extremity ROM Assessment Within Functional Limits Strength Upper Extremity Strength Assessment Within Functional Limits Lower Extremity Strength Assessment Within Functional Limits Coordination Assessment Gross Coordination Gross Coordination WNL Sensation Assessment Sensation Gross Sensation WNL Muscle Tone Muscle Tone WNL Yes M6 PT-IP Treatment Start: 02/06/25 13:54 Freq: NEEDED Status: Active Protocol: Document 02/11/25 14:25 AB (Rec: 02/11/25 16:24 AB [id number]) Physical Therapy Treatment Education Education Provided Safety M7 PT-IP Assessment and Plan Start: 02/06/25 13:54 Freq: NEEDED Status: Active Protocol: Document 02/11/25 14:25 AB (Rec: 02/11/25 16:24 AB [id number]) PT Summary Assessment and Plan Potential Rehabilitation Fair Potential Summary Impairments Pain,ROM,Strength,Balance,Coordination,Sensation,Tone, Cognition,Bed Mobility,Transfers,Gait,Activity Tolerance Progress Towards Slow Progress due to Medical Issues,Slow Progress due Goals to Activity Tolerance Assessment Summary pt requiring mod to max A for sit to stand and min A for transfers using FWW. pt continues to have decrease activity tolerance and not able to ambulate but able to take 3-4 steps using fWW to transfer min A. d/c plan depending on progress. pt will require 24/ assist and may benefit from SNF rehab to improve overall strength and mobility independence. will continue to assess. Goals Bed Mobility Goal Independent Transfer Goal Independent,Four Wheeled Walker Gait Goal Standby Assistance,Front Wheel Walker Gait Distance 60 feet Other Goals up/down 4 steps with one rail and CG assist Days to Meet Goals 5 Frequency of Treatment Frequency Of Once a Day Treatment Treatment Plan Physical Therapy Bed Mobility Training,Transfer Training,Gait Training, Treatment Plan Therapeutic Exercise,Balance Retraining,Post Op Education,Discharge Planning,Neuromuscular Re-ed Recommendations To Nursing Amount of Assist 1 Person Assist Needed Discharge Recommendations PT Discharge Home with 05/12 Assist Available,Home Health,SNF Rehab, Recommendations Home vs SNF Transportation Needs Private Vehicle,Wheelchair/Cabulance at Discharge - PT assist 1
--- NOTE | 2025-02-11 14:57 | OT.IPNOTE ---
Pt just got up with PT and resting in the recliner. To check on pt tomorrow.
[2025-02-11] MEDS: AZITHROMYCIN 250 MG TABLET 500 MG PO (15:03)
--- NOTE | 2025-02-11 16:53 | DIET.PN1 ---
Dietary Progress Note Assessment: 89 y/o F familiar to this RD/[facility] r/t outpatient visits. Today we were scheduled in OP for a visit. Daughter called with questions regarding CGM calibration and false lows. BG improved since last week, though having some elevations postprandial mostly after dinner per CGM data. Hypoglycemia in CGM data is not accurate. In hospital BG numbers did not show lows. This likely occurred r/t new sensor placement and potential bleeding at site interfereing with readings. Lantus increased from 20u at home to 30u while admitted, which has very much improved FBG. Daughter reports they plan to f/u with PCP soon after discharge. Will also reschedule our OP visit. Likely needs increased prandial insulin coverage at dinner. Ht: 154.94 cm Wt: 103.5 kg BMI: 43.1 UBW: Last BM: 02/08/25 (02/08/25 11:30) MNA: 13 Cirilo Score: 18 Diet: 02/03/25 Dinner Carbohydrate Consistent Diet Diet Modifications: Carbohydrate level: Medium (3 CHO) Reflex DM orders: No Food Texture: Level 7 - Regular Liquid Consistency: Level 0 - Thin 02/04/25 Dinner Courtesy Tray (Peds, comfort care) Diet Modifications: Nutrition Percent Meal Consumed 90 02/10/25 18:00 Percent Meal Consumed 45 02/10/25 10:15 Percent Meal Consumed 50% 02/09/25 18:00 Labs: RBC 5.18 X10^6/uL (4.0-5.2) 02/10/25 06:35 Hgb 13.0 g/dL (12.0-16.0) 02/10/25 06:35 Hct 39.1 % (36-46) 02/10/25 06:35 Creatinine 1.21 mg/dL (0.52-1.04) H 02/11/25 06:30 Hemoglobin A1c 9.1 % (4.0-6.0) H 02/04/25 06:10 Lactate 1.9 mmol/L (0.7-2.1) 02/03/25 14:52 NT-Pro-B Natriuret Pep 1740 pg/mL (<450) H 02/03/25 12:45 Nutrition Diagnosis: Altered nutrition related lab value r/t endocrine dysfunction aeb BG >200mg/dl Interventions: Reviewed how to calibrate CGM Reviewed CGM data and provided print out for PCP visit Will fax PCP CGM reports as well Reviewed false lows with new sensor placement Discussed benefits of increased basal insulin on FBG EER: 30-45g CHO per meal; 15-30g CHO per snack Monitoring/Evaluations: OP follow-up Electronically Signed by: Damari Corado 02/11/25 16:[address] [address]
[2025-02-11] MEDS: INSULIN LISPRO 100 UNIT/ML 3ML VIAL SUBCUT ×2 (17:32→21:17)
[2025-02-11] MEDS: INSULIN GLARGINE 100 UNIT/ML 3ML PEN 25 UNIT SUBCUT (21:18)
[2025-02-11] MEDS: ATORVASTATIN 20 MG TABLET 80 MG PO (21:24)
[2025-02-12] VITALS: BP 137/54; PULSE 60; TEMP 37.1; O2SAT 99
[2025-02-12 03:35] VITALS: BP 126/54; PULSE 63; RESP 16; TEMP 35.8; O2SAT 100
[2025-02-12] MEDS: HEPARIN 5,000 UNIT/ML VIAL 7500 UNIT SUBCUT (05:24)
--- NOTE | 2025-02-12 07:31 | P.PN_ITS ---
Subjective Subjective Interval history: Summary: 02/03: 89-year-old female with history of COPD, chronic hypoxic respiratory failure, CAD and 6 cardiac stents. She was in the hospital from January 17 to and was treated for heart failure as well as COPD exacerbation. She would well for about a week and then has developed recurrent shortness a breath. She was on her baseline 3 L of oxygen has some rhinorrhea and a cough. She does have some leg edema and notes that she has difficulty with oral Lasix causing a diuresis and in fact her legs tend to feel heavier. In the ED, her troponins were elevated she was started on a heparin drip. In addition, she was given antibiotics for possible infection and bronchodilators. She denies any chest pain. She was mixed feelings about ongoing cardiac procedures but would likely consider a repeat coronary angiogram if her surgery teacher Dr. Ellington recommended it. Hospital course: 02/03: 89-year-old female with history of COPD, chronic hypoxic respiratory failure, CAD and 6 cardiac stents. She was in the hospital from January 17 to and was treated for heart failure as well as COPD exacerbation. She would well for about a week and then has developed recurrent shortness a breath. She was on her baseline 3 L of oxygen has some rhinorrhea and a cough. She does have some leg edema and notes that she has difficulty with oral Lasix causing a diuresis and in fact her legs tend to feel heavier. In the ED, her troponins were elevated she was started on a heparin drip. In addition, she was given antibiotics for possible infection and bronchodilators. She denies any chest pain. She was mixed feelings about ongoing cardiac procedures but would likely consider a repeat coronary angiogram if her surgery teacher Dr. Ellington recommended it. troponins: 0.129, 0.130, 0.131. 02/05 Remains on a heparin drip, completing 48 hours this afternoon. No chest pain, but quite fatigued. Mild dyspnea and a dry cough. She has not been back to her baseline walking in her room yet but has been able to transfer to the bedside chair. She tells me that she lives in [place] with her son and follows up with [facility] in [place]. She will be started on PT/OT today. She remains on oxygen at her baseline of 3-4 L. Her family are hoping to take her on a road trip in their RV within the next 2 weeks. The potassium is 3.1. This will be supplemented with 20 mEq p.o. b.i.d. 02/06: Her daughter is asking that her daily azithromycin be resumed. This was apparently started during a recent admission in an attempt to decrease her recurrent pulmonary infection risk. Her chest x-ray has not shown pneumonia but her blood count was elevated. So far we have not been using antibiotics for her. She complains of puffy hands which indeed are present but there is no actual edema. She points to her right lower chest and says that she feels like there is some fluid there that needs to come up. We will increase her to 10 minute dose to 80 mg IV b.i.d. from 40. The magnesium level is 2.4 with a creatinine of 1.02 and a potassium that came up from 3.1 up to 4.0. 02/07: She reports persistent shortness of breath and weakness. Furosemide was increased yesterday but no significant diuresis noted. She notes right lower chest wall tenderness persists but is less. 02/08: She states she is feeling better with net negative 2500ml urine output since furosemide was increased to 80mg q8hr and metolazone 5mg daily added. 02/09: Since admission, she was placed on IV diuresis with some improvement. However, she notes she developed nausea, vomiting, and diarrhea yesterday. She states she has felt worse each day in terms of feeling weaker and lightheaded. Today, she states she feels dizzy simply sitting up. She has had no further nausea, vomiting, or diarrhea. She states she feels as though nobody has been listening to her in regard to her symptoms. She continues to feel as though she needs to expectorate sputum but is unable to do so. 02/10: Patient wants to continue therapeutic treatment but feels just completely drained after taking furosemide. Patient says I want to live she has had 2 babies in an ICU that she wants to see in [place]. I expressed misgivings about this venture her condition could decompensate while on the road and it could be very very uncomfortable. The upshot of the discussions that we will reduce Lasix to 10 mg work with physical therapy get her mobile. I expressed that she may do better with snf. Patient said many times through the interview I am not ready to yet. S: Overall, she does feel better today. She would like to keep the Lasix at 5 twice a day, her baseline dosing. She would like to return home tomorrow if feasible. O: NAD, alert and oriented. Fluent speech. Lungs are clear, normal rate and effort. Heart is regular, no murmur gallop or rub. Abdomen is soft, non distended. Extremities are free of edema. IMAGING: Chest CTA: 1. No signs of pulmonary emboli. 2. Findings suggestive of interstitial and alveolar pulmonary edema, mildly improved, no pleural effusion seen at this time. 3. Persistent subcutaneous density in the right breast medially, please correlate with findings from local examination for the possibility of malignancy. CXR 02/06: Cardiomegaly and mild interstitial prominence are seen, which are consistent with the given clinical history of CHF. A/P: 1. Suspected interstitial lung disease flare * Patient has had interstitial lung disease dating back for approximately 6 years. She has been having increasing symptoms. She reports last month she believes she was having increased congestive heart failure symptoms, but this admission felt different to her. Will decrease diuresis, as Cardiology had her on only 20 mg a day. At that dose she definitely gained weight and developed a CHF flare. * However, the current dose to be too high for her. She is receiving 40 mg twice daily on an outpatient basis. She is over diuresed presently as she is getting orthostatic just by simply sitting up in bed. Will plan to reduce her outpatient dose of Lasix to 20 mg twice daily to be held for systolic blood pressure less than 110. Will give a small fluid bolus 500 cc today and plan to restart Lasix tomorrow morning if her orthostatic symptoms have resolved. * Will continue prednisone at 20 mg daily. Will give a 3 day course of azithromycin both for anti-inflammatory purposes and on the off chance she does have a mild infectious etiology. However, if she is in fact aspirating this would not cover anaerobic organisms. * Will add dextromethorphan and guaifenesin as well. Discussed taking Delsym on an outpatient basis as that is pure dextromethorphan and Mucinex 1200 mg b.i.d. which would help her interstitial lung disease cough. 2. Orthostatic hypotension in the setting of chronic congestive heart failure with preserved ejection fraction * As above will give a 500 cc normal saline bolus. She appears to be over diuresed. * We will plan to DC IV diuresis and resume furosemide at a lower dose 20 mg twice daily. * She does have some FRANCESCA as well. Would recommend that be her ongoing outpatient dose as at home her daughter noted she would become pale and dizzy on the 40 mg twice daily dosing as well. * We did discuss that she would take an extra dose of furosemide where she would gained 3 lb in 24 hours or 5 lb in [address] Ellington her surgery teacher had instructed previously. 3. Chronic hypoxic respiratory failure * Remains on baseline oxygen need at 3 liters/minute. 4. Right breast mass * This was seen as far back as [address] scan. It is unclear if she has pursued any sort of workup. Does need to have an outpatient diagnostic mammogram if she wants to pursue further diagnosis. 5. Coronary artery disease * Presently asymptomatic. Previous stenting. Continue atorvastatin, Ranexa, aspirin. 6. Diabetes mellitus type 2, insulin requiring * Overall, blood sugars ranged from 135-239. Suspect her blood sugars are more difficult to control related to prednisone. 7. Generalized weakness * residential was recommended but she has declined. I have recommended that she stay in bed today secondary to her orthostasis. Would recommend therapies reassessed tomorrow. 8. Class 3 obesity * BMI is 43.1. She would greatly benefit from weight reduction as she has an increased morbidity and mortality PLAN: -reduce Lasix to 5 b.i.d. and continue prednisone at current dosing. -anticipate discharge to home on February 13. Code status * Full Prophylaxis * On heparin Disposition * Pending preference of the patient is to discharged home with home health care * Prognosis is guarded for this being workable even in the short term Exam Vital Signs (past 8 hours): - 02/12/25 00:00 02/12/25 03:35 Temperature 98.7 F 96.5 F L Pulse Rate 60 63 Respiratory Rate 16 Blood Pressure 137/54 L 126/54 L Pulse Oximetry 99 100 Oxygen Flow Rate 3 Fraction of Inspired Oxygen 32 SaO2/FiO2 Ratio 306 Oxygen Delivery Method Nasal Cannula,CPAP Oxygen Flow Rate 3 Objective Labs 02/10/25 06:35 02/11/25 06:30 Labs: Laboratory Results - last 24 hr 02/11/25 02/11/25 02/11/25 08:19 11:58 17:03 POC Whole Bld Glucose 112 H D 127 H 201 H 02/11/25 20:46 POC Whole Bld Glucose 278 H PFSH Medical History Chronic respiratory failure with hypoxia Skin cancer NSTEMI (non-ST elevated myocardial infarction) Diastolic heart failure Cardiac arrest Chest pain Hypertension Hyperlipidemia Coronary artery disease Left hamstring muscle strain UTI (urinary tract infection) Surgical History H/O right heart catheterization History of breast implant removal History of breast surgery History of appendectomy History of cholecystectomy History of total abdominal hysterectomy History of coronary artery stent placement Family History Father Hypertension Diabetes mellitus Mother Hypertension [place] (myocardial infarction) Sister [place] (myocardial infarction) S/P CABG x 4 Social History household members: children Smoking Status: Never smoker alcohol intake: never Assessment & Plan Time-Based Coding :: [TOTAL MINUTES] spent with patient and on the chart (including review of chart, obtaining history, exam, reviewing outside data, placing orders, documenting exam and treatment plan, and counseling patient) on [DATE].
[2025-02-12 08:00] VITALS: BP 140/63; PULSE 68; RESP 16; TEMP 36.2; O2SAT 98
[2025-02-12] MEDS: ASPIRIN EC 81 MG TABLET PO (08:08)
[2025-02-12] MEDS: ESCITALOPRAM 10 MG TABLET 20 MG PO (08:08)
[2025-02-12] MEDS: RANOLAZINE 500 MG TAB.ER.12H PO ×2 (08:08→20:47)
[2025-02-12] MEDS: METOPROLOL IR 25 MG TABLET 12.5 MG PO ×2 (08:09→20:47)
[2025-02-12] MEDS: INSULIN LISPRO 100 UNIT/ML 3ML VIAL 6 UNIT SUBCUT ×2 (08:12→12:17)
[2025-02-12] MEDS: INSULIN GLARGINE 100 UNIT/ML 3ML PEN 10 UNIT SUBCUT (08:13)
[2025-02-12] MEDS: SODIUM CHLORIDE 0.9% FLUSH 10 ML IV ×2 (08:13→20:48)
[2025-02-12] MEDS: INSULIN LISPRO 100 UNIT/ML 3ML VIAL SUBCUT ×3 (08:13→16:52)
--- NOTE | 2025-02-12 11:47 | OT.IP.TRT ---
Current Diagnoses Acute diastolic (congestive) heart failure (02/03/25) Occupational Therapy Treatment Note M2 OT-IP Current Condition Start: 02/05/25 12:45 Freq: Status: Active Protocol: Document 02/05/25 12:46 [facility] (Rec: 02/05/25 13:07 [facility] Desktop) Occupational Therapy Current Condition Current Condition Evaluation Date 02/05/25 Treatment Diagnosis CHF Diagnosis Onset Date 02/03/25 Post Operative Precautions Other Precautions Per Dr. Trivedi pt ok to turn down O2 as long as pt around 92%. Pt was at 100% on 3L. Able to notify nursing. M3 OT- IP Subjective and Pain Start: 02/05/25 12:45 Freq: Status: Active Protocol: Document 02/12/25 12:43 [facility] (Rec: 02/12/25 12:57 [facility] Desktop) OT- Subjective Occupational Therapy Visit Type Type Treatment Note Visit Start Time 11:20 Visit Stop Time 11:47 Occupational Therapy Visit Comments Patient Comments Pt agreed to get up to use the BSC and then get to the recliner. Patient/Caregiver TO go home. Goals OT Pain Assessment Pain When Pain Assessed During Mobility Pain Present Pain Present Denied Pain M4 OT- IP ADL's Start: 02/05/25 12:45 Freq: Status: Active Protocol: Document 02/12/25 12:43 [facility] (Rec: 02/12/25 12:57 [facility] Desktop) OT ADL-Grooming General Evaluation Grooming Ability Minimal Assistance Areas Needing Combing/Brushing Hair Assistance Comments OT Grooming Comments Pt's daughter assist to comb and braid her hair. OT ADL-Dressing General Eval Lower Body Dressing Maximum Assistance Ability Areas Needing Underpants/Brief,Socks Assistance OT ADL-Toileting General Evaluation Toileting Ability Maximum Assistance Areas Needing Manage Clothing,Perform Perineal Hygiene Assistance Comments OT Toileting Pt needing assist for toileting and brief needs. Comments M5 OT- IP IADL's Start: 02/05/25 12:45 Freq: Status: Active Protocol: Document 02/05/25 12:46 [facility] (Rec: 02/05/25 13:07 [facility] Desktop) OT-Instrumental Activities of Daily Living Home Safety Awareness Awareness of Need Good Awareness for Assistance at Home Meal Preparation Meal Preparation Caregiver Provides Assist Drop Wire Builder Drop Wire Builder Caregiver Provides Assist M6 OT- IP Functional Cognition Start: 02/05/25 12:45 Freq: Status: Active Protocol: Document 02/12/25 12:43 [facility] (Rec: 02/12/25 12:57 [facility] Desktop) Cognitive Factors Limiting Selfcare Function Cognitive Comments Cognitive Assessment Pt still wanting to go home. Pt more alert this morning Comments and moving better. M7 OT- IP Mobility and Balance Start: 02/05/25 12:45 Freq: Status: Active Protocol: Document 02/12/25 12:43 [facility] (Rec: 02/12/25 12:57 [facility] Desktop) OT-Transfer Assessment Sit to and From Stand Sit to and from Standby Assistance,Contact Guard Assistance Stand Transfers Transfer Ability Standby Assistance,Contact Guard Assistance Technique Transfer Destination Bedside Commode,Chair Transfer Technique Stand Step Pivot Devices Transfer Assistive Gait Belt,Front Wheeled Walker Devices Comments Mobility Comments Pt moving better with SBA to get to the edge of the bed , CGA/close SBA with FWW to the BSC and then the recliner. OT- Balance Assessment Sitting Balance and Reactions Static Sitting Good Balance Ability Dynamic Sitting Good Balance Ability Standing Balance and Reactions Static Standing Good Balance Ability Dynamic Standing Fair Balance Ability M8 OT- IP Objective Assessments Start: 02/05/25 12:45 Freq: Status: Active Protocol: Document 02/05/25 12:46 [facility] (Rec: 02/05/25 13:07 [facility] Desktop) OT Gross Range of Motion Upper Extremity Range of Motion Assessment Bilaterally Impaired ROM Impairments RUE 0-100 shoulder flexion LUE 0-80 shoulder flexion OT Strength Comments Strength Comments Pt elbow to distal WFL. M9 OT- IP Assessment and Plan Start: 02/05/25 12:45 Freq: Status: Active Protocol: Document 02/12/25 12:43 [facility] (Rec: 02/12/25 12:57 [facility] Desktop) OT Summary Assessment and Plan Potential Rehabilitation Fair Potential Analytic Complexity Moderate at Evaluation Summary OT Impairments Balance,Functional Mobility,Grooming,Dressing,Toileting ,Bathing,Toilet Transfers,Shower Transfers,Activity Tolerance Progress Towards Progressing Toward Goals Goals Assessment Summary Pt feeling a little better and able to to transfer to BSC and recliner with CGA to close SBA. Pt still needing assist for dressing/toileting needs. Pt will benefit from / assist if going home. Goals Self-Feeding Goal Independent Grooming Goal Independent Dressing Goal Minimal Assistance Toileting Goal Minimal Assistance Bathing Goal Minimal Assistance Toilet Transfer Goal Independent Shower Transfer Goal Standby Assistance Days to Meet Goals 10 Frequency of Treatment Other frequency 5x/week Treatment Plan OT Treatment Plan ADL Training,Functional Mobility,Patient/Family Education,Discharge Planning Discharge Recommendations OT Discharge Home with Assistance,Home with / Assist Available Recommendations Transportation Needs Private Vehicle at Discharge
[2025-02-12 12:00] VITALS: BP 121/52; PULSE 66; RESP 18; TEMP 36.1; O2SAT 99
--- NOTE | 2025-02-12 15:01 | PT-IP ANOTE ---
checked on pt and pt refused PT. educated and encouraged pt to do PT but pt continues to refuse. daughter in room also encouraging pt but pt continues to refuse.
[2025-02-12] MEDS: FUROSEMIDE 20 MG TABLET 5 MG PO (16:51)
[2025-02-12] MEDS: POTASSIUM CHLORIDE 10 MEQ TAB 20 MEQ PO (16:51)
[2025-02-12] MEDS: INSULIN LISPRO 100 UNIT/ML 3ML VIAL 12 UNIT SUBCUT (16:52)
--- NOTE | 2025-02-12 17:05 | PC.NURSE ---
Alert and oriented x4. Up to chair for lunch- 1 min assist with FWW. patient states, I feel better today. Ambulated in room with RN on 3L NC. Patient still getting dizzy with movement, but less dizzy than yesterday. Back to chair. Call light in reach.
[2025-02-12 20:00] VITALS: BP 151/68; PULSE 70; RESP 15; TEMP 36.9; O2SAT 97
[2025-02-12] MEDS: ATORVASTATIN 20 MG TABLET 80 MG PO (20:46)
[2025-02-12] MEDS: INSULIN GLARGINE 100 UNIT/ML 3ML PEN 25 UNIT SUBCUT (20:47)
--- NOTE | 2025-02-13 00:16 | PC.NURSE ---
Patient is alert and oriented. Breath sounds diminished at bases but CTA with sat of 97% on baseline O2 at 3L/min bled into CPAP for sleep. HRR w/BP of 151/68. Denied nausea. BT present and is passing flatus. Has urinary incontinence so is using Purewick at night; urine is clear, cole. Is able to turn herself in bed w/prn staff assistance. Bilateral calf SCD's applied at time of assessment. Denied pain. Noted to have bruising of all extremites and abdomen. Fall risk score is high and bed alarm is activated. Daughter, Beronica, rooming in. Expecting to discharge home later today.
[2025-02-13] MEDS: FUROSEMIDE 20 MG TABLET 5 MG PO (05:58)
[2025-02-13 06:00] VITALS: BP 129/63; PULSE 60; RESP 12; TEMP 35.8; O2SAT 95
[2025-02-13 06:49] LABS: INR 0.9 (0.9-1.3); Prothrombin Time 10.7 SECONDS (9.4-12.5)
[2025-02-13 06:52] LABS: PTT Partial Thromboplastin Tim 26 SECONDS (25.1-36.5)
[2025-02-13 08:23] LABS: Add Manual Diff / Slide Review NO; Hematocrit 34.4 % (36-46); Hemoglobin 11.4 g/dL (12.0-16.0); Lymphocytes Absolute Auto 1700 /uL (1100-4500); Mean Corpuscular HGB Conc 33.1 % (30-36); Mean Corpuscular Hemoglobin 25.2 PG (26-34); Mean Corpuscular Volume 76.3 fL (80-100); Platelet Count 107 X10^3/uL (150-400)
[2025-02-13 08:44] LABS: Alanine Aminotransferase 18 IU/L (<35); Albumin 3.4 g/dL (3.5-5.0); Albumin Globulin Ratio 1.5 (1.0-2.8); Alkaline Phosphatase 48 U/L (38-126); Blood Urea Nitrogen 47 mg/dL (7-17); Calcium 9.7 mg/dL (8.4-10.2); Carbon Dioxide 33 mmol/L (22-32); Chloride 87 mmol/L (98-107); Estimated Glomerular Filt Rate 40 mL/min (>60); Globulin 2.3 g/dL (1.7-4.1); Glucose 124 mg/dL (70-99); HEMOLYSIS < 15 (0-50); Potassium 3.2 mmol/L (3.4-5.1); Sodium 126 mmol/L (137-145); Total Protein 5.7 g/dL (6.3-8.2)
[2025-02-13] MEDS: INSULIN LISPRO 100 UNIT/ML 3ML VIAL 6 UNIT SUBCUT (09:04)
[2025-02-13] MEDS: INSULIN GLARGINE 100 UNIT/ML 3ML PEN 10 UNIT SUBCUT (09:05)
[2025-02-13] MEDS: POTASSIUM CHLORIDE 10 MEQ TAB 20 MEQ PO (09:15)
[2025-02-13] MEDS: RANOLAZINE 500 MG TAB.ER.12H PO (09:15)
[2025-02-13] MEDS: ASPIRIN EC 81 MG TABLET PO (09:15)
[2025-02-13] MEDS: ESCITALOPRAM 10 MG TABLET 20 MG PO (09:15)
[2025-02-13] MEDS: METOPROLOL IR 25 MG TABLET 12.5 MG PO (09:16)
[2025-02-13] MEDS: SODIUM CHLORIDE 0.9% FLUSH 10 ML IV (09:16)
--- NOTE | 2025-02-13 09:33 | PT.IPTN ---
Current Diagnoses Acute diastolic (congestive) heart failure (02/03/25) Physical Therapy Treatment Note M2 PT-IP Current Condition Start: 02/06/25 13:54 Freq: NEEDED Status: Active Protocol: Document 02/13/25 09:14 [facility] (Rec: 02/13/25 09:43 [facility] [id number]) Physical Therapy Current Condition Current Condition Evaluation Date 02/06/25 Treatment Diagnosis CHF, impaired gait and activity tolerance Onset Date 02/03/25 M3 PT-IP Subjective Start: 02/06/25 13:54 Freq: NEEDED Status: Active Protocol: Document 02/13/25 09:14 [facility] (Rec: 02/13/25 09:43 [facility] [id number]) Subjective Physical Therapy Visit Type Type Treatment Note Visit Start Time 09:14 Visit Stop Time 09:33 Number of MAKEUP INSTRUCTOR Visits 0 Physical Therapy Visit Comments Patient Comments Pt seated EOB with nursing, about to get to recliner. Agreeable to work with PT. Daughter in room. M4 PT-IP Mobility and Gait Start: 02/06/25 13:54 Freq: NEEDED Status: Active Protocol: Document 02/13/25 09:14 [facility] (Rec: 02/13/25 09:43 [facility] [id number]) PT-Transfer Assessment Sit to and From Stand Sit to and from Contact Guard Assistance,1 Person Assistance,Use of Stand Upper Extremities Equipment Transfer Assistive Gait Belt,Front Wheeled Walker Device Gait Assessment Gait Distance (Feet) 5 Assistive Devices Assistive Device Gait Belt,Front Wheeled Walker Gait Deviations General Gait Pattern Decreased Stride Length,Decreased Feet Clearance M5 PT-IP Objective Assessments Start: 02/06/25 13:54 Freq: NEEDED Status: Active Protocol: Document 02/06/25 11:16 [facility] (Rec: 02/06/25 14:23 [facility] Desktop) Orientation Orientation/Cognition Level of Alertness Alert Orientation Name,Age,Birthday,Month,Date,Year,Day of Week,Place, Situation Language Function No Deficits Noted Ability Safety Awareness Understands Safety Issues Memory Description No Deficits Noted Gross Range of Motion Upper Extremity ROM Assessment Within Functional Limits Lower Extremity ROM Assessment Within Functional Limits Strength Upper Extremity Strength Assessment Within Functional Limits Lower Extremity Strength Assessment Within Functional Limits Coordination Assessment Gross Coordination Gross Coordination WNL Sensation Assessment Sensation Gross Sensation WNL Muscle Tone Muscle Tone WNL Yes M6 PT-IP Treatment Start: 02/06/25 13:54 Freq: NEEDED Status: Active Protocol: Document 02/13/25 09:14 [facility] (Rec: 02/13/25 09:43 [facility] [id number]) Physical Therapy Treatment Other Treatments Other Treatment Monitored HR and O2 sats during activity Performed M7 PT-IP Assessment and Plan Start: 02/06/25 13:54 Freq: NEEDED Status: Active Protocol: Document 02/13/25 09:14 [facility] (Rec: 02/13/25 09:43 [facility] [id number]) PT Summary Assessment and Plan Potential Rehabilitation Fair Potential Summary Impairments Pain,ROM,Strength,Balance,Coordination,Sensation,Tone, Cognition,Bed Mobility,Transfers,Gait,Activity Tolerance Progress Towards Slow Progress due to Medical Issues,Slow Progress due Goals to Activity Tolerance Assessment Summary Pt demonstrating improved independence for transfers and ambulation, able to perform sit<->stand and ambulation with CGA. Upon standing, pt noted that her brief was damp and she would like to get changed before sitting in chair. VAULT WORKER returned to room to assist with change. Pt was unable to remain standing for the entire change, so performed 3 sit<->stands at bedside due to fatigue in standing, but was able to eventually get changed and assist with pericare. By the time this was done and pt ambulated 5 feet to recliner, pt was quite fatigued, O2 sat remained 99%. When discussing needs for potential d/c home, were discussing stairs, but daughter noted that they also have a ramp they can push her up in a wheelchair, which does remove a barrier of concern regarding a discharge home. Goals Bed Mobility Goal Independent Transfer Goal Independent,Four Wheeled Walker Gait Goal Standby Assistance,Front Wheel Walker Gait Distance 60 feet Other Goals up/down 4 steps with one rail and CG assist Days to Meet Goals 5 Frequency of Treatment Frequency Of Once a Day Treatment Treatment Plan Physical Therapy Bed Mobility Training,Transfer Training,Gait Training, Treatment Plan Therapeutic Exercise,Balance Retraining,Post Op Education,Discharge Planning,Neuromuscular Re-ed Recommendations To Nursing Amount of Assist 1 Person Assist Needed Discharge Recommendations PT Discharge Home with 05/12 Assist Available,Home Health,SNF Rehab, Recommendations Home vs SNF Transportation Needs Private Vehicle,Wheelchair/Cabulance at Discharge
[2025-02-13 10:25] VITALS: BP 135/60; PULSE 63; RESP 18; TEMP 35.6; O2SAT 99
--- NOTE | 2025-02-13 10:27 | OT.IPNOTE ---
Attempted to see pt for showering and pt refusing at this time. Pt looking to go home today.
[2025-02-13] MEDS: INSULIN LISPRO 100 UNIT/ML 3ML VIAL SUBCUT (12:04)
[2025-02-13] MEDS: INSULIN LISPRO 100 UNIT/ML 3ML VIAL 12 UNIT SUBCUT (12:04)
[2025-02-13] MEDS: POTASSIUM CHLORIDE 20 MEQ TAB 40 MEQ PO (12:05)
--- NOTE | 2025-02-13 12:54 | P.DS_ITS ---
History of Present Illness History of Present Illness Chief complaint: confusion, SOB, CHF Narrative: She was an 89-year-old female with history of COPD, chronic hypoxic respiratory failure, CAD and 6 cardiac stents. She was in the hospital from January 17 to and was treated for heart failure as well as COPD exacerbation. She would well for about a week and then has developed recurrent shortness a breath. She was on her baseline 3 L of oxygen has some rhinorrhea and a cough. She does have some leg edema and notes that she has difficulty with oral Lasix causing a diuresis and in fact her legs tend to feel heavier. In the ED, her troponins were elevated she was started on a heparin drip. In addition, she was given antibiotics for possible infection and bronchodilators. She denies any chest pain. She was mixed feelings about ongoing cardiac procedures but would likely consider a repeat coronary angiogram if her wheel blocker Dr. Ellington recommended it. Discharge Providers Provider Date of admission: 02/03/25 17:24 Discharge Date: 02/13/25 Primary care physician: Zoe Bass PA-C Consults: 02/05/25 10:29 Consult to Occupational Therapy Evaluate & Treat Comment: Physician Instructions: Evaluate and treat Consult to Physical Therapy Evaluate & Treat Comment: Physician Instructions: Evaluate and Treat 02/07/25 10:17 Consult to Pharmacy Routine Comment: Per MAR to order. Asking for a pharmacy review. 02/10/25 11:35 Consult to Pharmacy Routine Comment: at discharge if new meds. 02/10/25 14:06 Consult to Home Health Routine Comment: Resumption of Care Reason For Exam: Home Health Services Discharge provider: William Velázquez MD Summary Hospital Course Discharge Diagnosis: 1. Suspected interstitial lung disease flare. Mildly improved. 2. Orthostatic hypotension in the setting of chronic congestive heart failure with preserved ejection fraction. 3. Chronic hypoxic respiratory failure. 4. Right breast mass (retained silicone per her response). 5. Coronary artery disease. Stable. 6. Diabetes mellitus type 2, insulin requiring. 7. Generalized weakness, stable. 8. Class 3 obesity. 9. Acute on chronic diastolic heart failure, improved. Hospital Course: 02/03: 89-year-old female with history of COPD, chronic hypoxic respiratory failure, CAD and 6 cardiac stents. She was in the hospital from January 17 to and was treated for heart failure as well as COPD exacerbation. She would well for about a week and then has developed recurrent shortness a breath. She was on her baseline 3 L of oxygen has some rhinorrhea and a cough. She does have some leg edema and notes that she has difficulty with oral Lasix causing a diuresis and in fact her legs tend to feel heavier. In the ED, her troponins were elevated she was started on a heparin drip. In addition, she was given antibiotics for possible infection and bronchodilators. She denies any chest pain. She was mixed feelings about ongoing cardiac procedures but would likely consider a repeat coronary angiogram if her wheel blocker Dr. Ellington recommended it. troponins: 0.129, 0.130, 0.131. 02/05 Remains on a heparin drip, completing 48 hours this afternoon. No chest pain, but quite fatigued. Mild dyspnea and a dry cough. She has not been back to her baseline walking in her room yet but has been able to transfer to the bedside chair. She tells me that she lives in [place] with her son and follows up with [facility] in [place]. She will be started on PT/OT today. She remains on oxygen at her baseline of 3-4 L. Her family are hoping to take her on a road trip in their RV within the next 2 weeks. The potassium is 3.1. This will be supplemented with 20 mEq p.o. b.i.d. 02/06: Her daughter is asking that her daily azithromycin be resumed. This was apparently started during a recent admission in an attempt to decrease her recurrent pulmonary infection risk. Her chest x-ray has not shown pneumonia but her blood count was elevated. So far we have not been using antibiotics for her. She complains of puffy hands which indeed are present but there is no actual edema. She points to her right lower chest and says that she feels like there is some fluid there that needs to come up. We will increase her to 10 minute dose to 80 mg IV b.i.d. from 40. The magnesium level is 2.4 with a creatinine of 1.02 and a potassium that came up from 3.1 up to 4.0. 02/07: She reports persistent shortness of breath and weakness. Furosemide was increased yesterday but no significant diuresis noted. She notes right lower chest wall tenderness persists but is less. 02/08: She states she is feeling better with net negative 2500ml urine output since furosemide was increased to 80mg q8hr and metolazone 5mg daily added. 02/09: Since admission, she was placed on IV diuresis with some improvement. However, she notes she developed nausea, vomiting, and diarrhea yesterday. She states she has felt worse each day in terms of feeling weaker and lightheaded. Today, she states she feels dizzy simply sitting up. She has had no further nausea, vomiting, or diarrhea. She states she feels as though nobody has been listening to her in regard to her symptoms. She continues to feel as though she needs to expectorate sputum but is unable to do so. 02/10: Patient wants to continue therapeutic treatment but feels just completely drained after taking furosemide. Patient says I want to live she has had 2 babies in an ICU that she wants to see in [place]. I expressed misgivings about this venture her condition could decompensate while on the road and it could be very very uncomfortable. The upshot of the discussions that we will reduce Lasix to 10 mg work with physical therapy get her mobile. I expressed that she may do [facility]. Patient said many times through the interview I am not ready to yet. 02/11: Clinically about the same, but stay and that she would like to go home. She really believes that she feels more fatigued from Lasix and prednisone medication. We discussed how these are really the only options to treat her lung disease and volume overload. We did reduce her doses 2 5 mg twice a day of Lasix. 10/!: Doing about the same. We discussed her being realistic about the fact that she likely will not improve much from this functional baseline with her energy level or breathing. She would like to go home today. She was open to reducing dose of prednisone to 10 mg a day and trying torsemide instead of Lasix to see if she tolerates this diuretic better. This will be started at a low dose. Her real goals are to be at home as much as possible, we did talk about the possibility of home health and increase support at home to try to avoid trips to the hospital and ultimately that she may benefit from hospice if and when her condition deteriorates further. Status at Discharge Cognitive/behavioral status at discharge: oriented Functional status at discharge: uses cane/walker Overall status at discharge: patient is progressing back to baseline Time Spent with Patient Time spent: Greater than 30 minutes Exam Vital Signs (past 8 hours): - 02/13/25 06:00 02/13/25 09:00 Temperature 96.4 F L Pulse Rate 60 Respiratory Rate 12 Blood Pressure 129/63 Pulse Oximetry 95 Oxygen Delivery Method Nasal Cannula CPAP Oxygen Flow Rate 3 Fraction of Inspired Oxygen 32 SaO2/FiO2 Ratio 306 Oxygen Delivery Method Nasal Cannula,CPAP Oxygen Flow Rate 3 Narrative Exam Narrative: NAD, alert and oriented. Fluent speech. Lungs are clear, normal rate and effort. Heart is regular, no murmur gallop or rub. Abdomen is soft, non distended. Extremities are with 2+ edema. Objective Imaging Multiple studies:: Radiologist's impression: CXR: Cardiomegaly and mild interstitial prominence are seen, which are consistent with the given clinical history of CHF. Chest CTA: 1. No signs of pulmonary emboli. 2. Findings suggestive of interstitial and alveolar pulmonary edema, mildly improved, no pleural effusion seen at this time. 3. Persistent subcutaneous density in the right breast medially, please correlate with findings from local examination for the possibility of malignancy. CXR: No acute cardiopulmonary pathology. Labs 02/13/25 08:12 02/13/25 08:12 Labs: Laboratory Results - last 24 hr 02/12/25 02/12/25 02/12/25 16:18 19:38 20:53 WBC RBC Hgb Hct MCV MCH MCHC RDW Plt Count Neut % (Auto) Lymph % (Auto) [place] % (Auto) Eos % (Auto) Baso % (Auto) Neut # (Auto) Lymph # (Auto) [place] # (Auto) Eos # (Auto) Baso # (Auto) PT INR APTT Sodium Potassium Chloride Carbon Dioxide BUN Creatinine Estimated GFR BUN/Creatinine Ratio Glucose POC Whole Bld Glucose 173 H 171 H 162 H Calcium Total Bilirubin AST ALT Alkaline Phosphatase Total Protein Albumin Globulin Albumin/Globulin Ratio 02/13/25 02/13/25 02/13/25 06:35 07:25 08:12 WBC 8.0 RBC 4.51 Hgb 11.4 L Hct 34.4 L MCV 76.3 L MCH 25.2 L MCHC 33.1 RDW 20.0 H Plt Count 107 L Neut % (Auto) 69.1 Lymph % (Auto) 22.0 L [place] % (Auto) 7.9 Eos % (Auto) 0.5 L Baso % (Auto) 0.5 Neut # (Auto) 5500 Lymph # (Auto) 1700 [place] # (Auto) 600 Eos # (Auto) 0 Baso # (Auto) 0 PT 10.7 INR 0.9 APTT 26 Sodium 126 L Potassium 3.2 L Chloride 87 L Carbon Dioxide 33 H BUN 47 H Creatinine 1.30 H Estimated GFR 40 L BUN/Creatinine Ratio 36.2 H Glucose 124 H POC Whole Bld Glucose 124 H Calcium 9.7 Total Bilirubin 0.7 AST 35 ALT 18 Alkaline Phosphatase 48 Total Protein 5.7 L Albumin 3.4 L Globulin 2.3 Albumin/Globulin Ratio 1.5 02/13/25 11:50 WBC RBC Hgb Hct MCV MCH MCHC RDW Plt Count Neut % (Auto) Lymph % (Auto) [place] % (Auto) Eos % (Auto) Baso % (Auto) Neut # (Auto) Lymph # (Auto) [place] # (Auto) Eos # (Auto) Baso # (Auto) PT INR APTT Sodium Potassium Chloride Carbon Dioxide BUN Creatinine Estimated GFR BUN/Creatinine Ratio Glucose POC Whole Bld Glucose 177 H Calcium Total Bilirubin AST ALT Alkaline Phosphatase Total Protein Albumin Globulin Albumin/Globulin Ratio PFSH Medical History Chronic respiratory failure with hypoxia Skin cancer NSTEMI (non-ST elevated myocardial infarction) Diastolic heart failure Cardiac arrest Chest pain Hypertension Hyperlipidemia Coronary artery disease Left hamstring muscle strain UTI (urinary tract infection) Surgical History H/O right heart catheterization History of breast implant removal History of breast surgery History of appendectomy History of cholecystectomy History of total abdominal hysterectomy History of coronary artery stent placement Family History Father Hypertension Diabetes mellitus Mother Hypertension IA (myocardial infarction) Sister IA (myocardial infarction) S/P CABG x 4 Social History household members: children Smoking Status: Never smoker alcohol intake: never Discharge Assessment & Plan Assessment and Plan Assessment: 1. Suspected interstitial lung disease flare. Mildly improved. 2. Orthostatic hypotension in the setting of chronic congestive heart failure with preserved ejection fraction. 3. Chronic hypoxic respiratory failure. 4. Right breast mass (retained silicone per her response). 5. Coronary artery disease. Stable. 6. Diabetes mellitus type 2, insulin requiring. 7. Generalized weakness, stable. 8. Class 3 obesity. Plan of Treatment: Discharge home with torsemide instead of lasix and reduced prednisone dose. Discharge Plan Discharge Plan Patient Disposition: Home Health Service Provider Discharge Comment: Stable for discharge. Discharge orders & Medications Prescriptions: New metoprolol tartrate 25 mg Tablet 12.5 mg PO BID Qty: 30 0RF prednisone 10 mg tablet 10 mg PO DAILY Qty: 30 2RF torsemide 10 mg tablet 10 mg PO BID Qty: 60 1RF potassium chloride 20 mEq tablet extended release 20 meq PO BID Qty: 60 2RF Continued aspirin 81 MG tablet,delayed release (DR/EC) 81 mg PO DAILY Qty: 0 pantoprazole 40 mg Tablet,Delayed Release (Dr/Ec) 40 mg PO DAILY escitalopram oxalate 20 mg Tablet 20 mg PO DAILY insulin lispro [Admelog U-100 Insulin lispro] 100 unit/mL Solution 7 unit SUBCUT AC Qty: 30 0RF insulin lispro [Admelog U-100 Insulin lispro] 100 unit/mL Solution 0 unit SUBCUT ACHS Qty: 30 0RF insulin glargine [Lantus Solostar U-100 Insulin] 100 unit/mL (3 mL) Insulin Pen 20 unit SUBCUT BEDTIME Qty: 30 0RF guaifenesin [Mucus Relief ER] 600 mg Tablet Extended Release 12hr 600 mg PO BID Qty: 60 0RF (DME) miscellaneous medical supply Package See Rx Instructions .Route Qty: 100 2RF Rx Instructions: Needle tips for insulin pen U 100 insulin syringes nystatin 100,000 unit/mL suspension 100,000 unit PO QID Qty: 500 0RF Rx Instructions: administer 1/2 of dose in each side of the mouth nystatin 100,000 unit/gram ointment 1 applic topical BID Qty: 120 1RF nitroglycerin 0.4 mg tablet, sublingual 1 tab sublingual [id number] PRN (Reason: Chest Pain) Patient Comments: take it when needed, last dose unknown rosuvastatin 40 mg tablet 40 mg PO QPM acetaminophen-codeine 300-30 mg tablet 1 tab PO BID PRN (Reason: pain) ipratropium-albuterol 0.5 mg-3 mg(2.5 mg base)/3 mL solution for nebulization 3 ml inhalation DIRECTED PRN (Reason: sob, wheezing) ranolazine 500 mg tablet extended release 12 hr 500 mg PO BID (DME) lancets [FreeStyle Lancets] 28 gauge misc 1 ea MISCELLANEOUS 3XD Discontinued metoprolol tartrate 25 mg tablet 12.5 mg PO BID Rx Instructions: / tablet = 12.5 mg BID - AM & PM furosemide 40 mg Tablet 40 mg PO BID Qty: 180 0RF prednisone 20 mg tablet See Rx Instructions .ROUTE .COMPLEX Qty: 100 1RF Rx Instructions: 20 mg 3 tablets twice a day for 5 days then 2 tablets twice a day for 5 days then 1 tablet twice a day Medication counseling provided by Pharmacist: Yes Follow up/Referrals: Zoe Bass PA-C [Primary Care Provider, Medical] Diet/Activity/Treatments Diet: Carb-consistent/Diabetic Diet comment: Low salt. Activity: As tolerated. Visit Report/Discharge Packet Instructions: Heart Failure, Idiopathic Pulmonary Fibrosis, DI for Heart Failure, How to Prevent Falls Stand Alone Forms: Congestive Heart Failure, Patient Portal/API, Stroke Signs & Symptoms Discharge Data Primary Care Provider: Zoe Bass
--- NOTE | 2025-02-13 13:02 | CM.DPC ---
Addendum entered by DONNELL Hoskins 02/13/25 15:14: ADD: Emailed resumption orders to [facility] at [email or web address] which included face sheet, order- RN/PT/OT, F2F and DC Summary. Receipt confirmed by Jeannette Ott at [facility]. Original Note: DCP Cont. Reviewed EMR and team rounds for pt's status updates. Pt has been medically cleared for home d/c. Her dtr will transport her home. No further CM d/c assistance or resource needs identified at this time.
--- NOTE | 2025-02-13 15:54 | PC.NURSE ---
Day shift: Paperwork signed and all questions answered. left unit at approx 1520. Has all personal belongings. Daughter in room for teachings. Left unit via WC and taken by MARY Be. NEw MD scripts sent to Pt's pharmacy.
== END 2025-02-13 15:20 | disposition home health service (06) | DRG 291 ==
LOC: ED 17:21 → AC 17:25
PROVIDERS: Family Medicine; Internal Medicine; Pharmacist Pharmacist Clinician (PhC)/ Clinical Pharmacy Specialist; Admitting Provider Hospitalist; Emergency Provider Emergency Medicine; Family Provider Internal Medicine; PCP Physician Assistant Medical; Referring Provider Emergency Medicine; Visit Provider Hospitalist
DX: I11.0 Hypertensive heart disease with heart failure (principal); I50.33 Acute on chronic diastolic (congestive) heart failure; I24.89 Other forms of acute ischemic heart disease; J96.11 Chronic respiratory failure with hypoxia; N17.9 Acute kidney failure, unspecified; Z68.41 Body mass index [BMI] 40.0-44.9, adult; J84.9 Interstitial pulmonary disease, unspecified; I25.10 Atherosclerotic heart disease of native coronary artery without angina pectoris; E78.5 Hyperlipidemia, unspecified; E87.6 Hypokalemia; R92.8 Other abnormal and inconclusive findings on diagnostic imaging of breast; I95.1 Orthostatic hypotension; E11.9 Type 2 diabetes mellitus without complications; R53.1 Weakness; E66.813 Obesity, class 3; J44.9 Chronic obstructive pulmonary disease, unspecified; G47.33 Obstructive sleep apnea (adult) (pediatric); I25.2 Old myocardial infarction; Z79.4 Long term (current) use of insulin; Z95.5 Presence of coronary angioplasty implant and graft; Z99.81 Dependence on supplemental oxygen
CPT/HCPCS: 36415; 71045; 71275; 80048; 80053; 82947; 82962; 83036; 83605; 83735; 83880; 84145; 84484; 85014; 85018; 85025; 85049; 85610; 85730; 87040; 93005; 93010; 94760; 96365; 96366; 96367; 96368; 96375; 97110; 97162; 97166; 97530; 97535; 99285; 99291; J1200; J1644; J1650; J1815; J1938; J2543; J2919; Q9967

== ENCOUNTER → 2025-02-26 14:36 | Outpatient (CLI) | payer MEDICARE, OTHER, SELFPAY ==
[2025-02-03 20:17] VITALS: BMI 43.1
--- NOTE | 2025-02-26 14:41 | DI.US.S_ITS ---
PROCEDURE: US PERIPH VENOUS UP EXTREM RT INDICATIONS: EDEMA TECHNIQUE: Real-time imaging, as well as color and pulse Doppler interrogation, was performed of the upper extremity deep veins from the inferior neck to the antecubital fossa. COMPARISON: [facility], CR, XR CHEST 1V, 02/06/2025, 14:22. [facility], CT, CT ANGIO CHEST PE PROTOCOL, 02/03/2025, 15:42. FINDINGS: The internal jugular vein, visualized portions of the subclavian vein, axillary, and brachial veins are free of intraluminal thrombus. Where physically possible, the veins are normally compressible. Color and pulse Doppler demonstrate normal intraluminal flow, with expected phasicity and pulsatility. Additional scanning of the cephalic and basilic veins of the superficial system demonstrates normal compressibility, without thrombus. There is a complex fluid collection seen within the right elbow/forearm anteriorly, measuring 4.9 x 2.2 x 0.8 cm. No abnormal vascularity can be seen. Distal wrist soft tissue edema is seen. IMPRESSION: No findings of upper extremity deep venous thrombosis can be seen. Complex collection seen within the right elbow/forearm, without abnormal vascularity. This has the appearance of a soft tissue hematoma. Dictated by: Venkat Tucker M.D. on 02/26/2025 at 14:58 Approved by: Venkat Tucker M.D. on 02/26/2025 at 14:59
== END ==
PROVIDERS: Family Provider Internal Medicine; PCP Physician Assistant Medical; Referring Provider Physician Assistant Medical; Visit Provider Physician Assistant Medical
DX: R60.9 Edema, unspecified (principal); I82.409 Acute embolism and thrombosis of unspecified deep veins of unspecified lower extremity
CPT/HCPCS: 93971

== ENCOUNTER 2025-03-17 19:25 | Emergency (ER) | payer MEDICARE, OTHER, SELFPAY ==
[2025-02-03 20:17] VITALS: BMI 43.1
[2025-03-17] VITALS (11 sets, daily range): BP systolic 128–170; BP diastolic 56–78; PULSE 73–80; RESP 16–20; TEMP 36.1; O2SAT 96–98; BMI 47.0
--- NOTE | 2025-03-17 19:38 | DI.RAD.S_ITS ---
PROCEDURE: XR CHEST 1V
--- NOTE | 2025-03-17 19:38 | EKG_ITS ---
[facility]
[2025-03-17 20:12] LABS: Add Manual Diff / Slide Review NO; Hematocrit 35.9 % (36-46); Hemoglobin 11.2 g/dL (12.0-16.0); Lymphocytes Absolute Auto 1700 /uL (1100-4500); Mean Corpuscular HGB Conc 31.3 % (30-36); Mean Corpuscular Hemoglobin 23.5 PG (26-34); Mean Corpuscular Volume 75.2 fL (80-100); Platelet Count 249 X10^3/uL (150-400)
[2025-03-17 20:15] LABS: INR 1.0 (0.9-1.3); Prothrombin Time 11.8 SECONDS (9.4-12.5)
[2025-03-17 20:18] LABS: Lactate (Lactic Acid) 1.6 mmol/L (0.7-2.1)
[2025-03-17 20:19] LABS: Alanine Aminotransferase 15 IU/L (<35); Albumin 4.1 g/dL (3.5-5.0); Albumin Globulin Ratio 1.5 (1.0-2.8); Alkaline Phosphatase 44 U/L (38-126); Blood Urea Nitrogen 23 mg/dL (7-17); Calcium 9.0 mg/dL (8.4-10.2); Carbon Dioxide 33 mmol/L (22-32); Chloride 98 mmol/L (98-107); Estimated Glomerular Filt Rate 55 mL/min (>60); Globulin 2.8 g/dL (1.7-4.1); Glucose 144 mg/dL (70-99); HEMOLYSIS < 15 (0-50); Potassium 3.9 mmol/L (3.4-5.1); Sodium 136 mmol/L (137-145); Total Protein 6.9 g/dL (6.3-8.2)
--- NOTE | 2025-03-17 20:26 | ED_ITS ---
HPI - SOB/Dyspnea
--- NOTE | 2025-03-17 20:26 | ED.SOB ---
HPI - SOB/Dyspnea <Robby Deleon, DO - Last Filed: 03/17/25 22:53> General Chief Complaint: Shortness of Breath/Dyspnea Stated Complaint: SOB Time Seen by Provider: 03/17/25 20:19 Source: patient and EMS Mode of arrival: EMS Limitations: no limitations History of Present Illness HPI Narrative: 89-year-old female history of COPD on 3 L nasal cannula diabetes on insulin hypertension dyslipidemia CHF coronary artery disease with prior cardiac stenting on aspirin presents with cough nonproductive with shortness of breath and leg swelling despite increasing her Lasix dose for the past few days. She denies any active chest pain at this time nausea, vomiting, diarrhea, back pain, abdominal pain, fever, chills, body aches, urinary complaints. Other than what is stated 14 point review of system is negative Related Data Home Medications ?Medication ?Instructions ?Recorded ?Confirmed aspirin 81 mg tablet,delayed 81 mg PO DAILY ##0 05/14/17 02/03/25 release nitroglycerin 0.4 mg sublingual 1 tab sublingual [id number] PRN Chest 11/18/18 02/03/25 tablet Pain rosuvastatin 40 mg tablet 40 mg PO QPM 11/18/18 02/03/25 escitalopram oxalate 20 mg tablet 20 mg PO DAILY 03/06/21 02/03/25 pantoprazole 40 mg tablet,delayed 40 mg PO DAILY 03/06/21 02/03/25 release acetaminophen 300 mg-codeine 30 mg 1 tab PO BID PRN pain 07/03/24 02/03/25 tablet ipratropium 0.5 mg-albuterol 3 mg 3 ml inhalation DIRECTED PRN 07/03/24 02/03/25 (2.5 mg base)/3 mL nebulization sob, wheezing soln ranolazine 500 mg tablet,extended 500 mg PO BID 07/03/24 02/03/25 release,12 hr lancets 28 gauge (FreeStyle 02/03/25 02/03/25 Lancets) Previous Rx's ?Medication ?Instructions ?Recorded guaifenesin 600 mg tablet, 600 mg PO BID #60 tabs 01/23/25 extended release 12 hr (Mucus Relief ER) insulin glargine 100 unit/mL (3 20 unit (0.2 mL) SUBCUT BEDTIME 01/23/25 mL) subcutaneous pen (Lantus #30 mL Solostar U-100 Insulin) insulin lispro 100 unit/mL 0 unit (0 mL) SUBCUT ACHS #30 mL 01/23/25 subcutaneous solution (Admelog U-100 Insulin lispro) insulin lispro 100 unit/mL 7 unit (0.07 mL) SUBCUT AC #30 mL 01/23/25 subcutaneous solution (Admelog U-100 Insulin lispro) miscellaneous medical supply #100 ea 01/23/25 nystatin 100,000 unit/gram topical 1 applic topical BID #120 grams 01/23/25 ointment nystatin 100,000 unit/mL oral 100,000 unit PO QID #500 mL 01/23/25 suspension metoprolol tartrate 25 mg tablet 12.5 mg (1/2 x 25 mg) PO BID #30 02/13/25 tabs potassium chloride 20 mEq 20 meq PO BID #60 tabs 02/13/25 tablet,extended release prednisone 10 mg tablet 10 mg PO DAILY #30 tabs 02/13/25 torsemide 10 mg tablet 10 mg PO BID #60 tabs 02/13/25 doxycycline hyclate 100 mg capsule 100 mg PO BID #20 caps 03/18/25 prednisone 20 mg tablet 40 mg (2 x 20 mg) PO DAILY 5 days 03/18/25 #10 tabs Allergies Allergy/AdvReac Type Severity Reaction Status Date / Time Iodinated Contrast Media Allergy Severe Unconscious Verified 03/17/25 19:34 (IODINATED CONTRAST- ORAL AND IV DYE) morphine (MORPHINE) Allergy Severe Rash Verified 03/17/25 19:34 telmisartan (TELMISARTAN) Allergy Severe Rash Verified 03/17/25 19:34 Review of Systems <Robby Deleon DO - Last Filed: 03/17/25 22:53> Review of Systems ROS Unobtainable: All systems reviewed & are unremarkable except as noted in HPI and below Patient History <Robby Deleon DO - Last Filed: 03/17/25 22:53> Medical History Chronic respiratory failure with hypoxia Skin cancer NSTEMI (non-ST elevated myocardial infarction) Diastolic heart failure Cardiac arrest Chest pain Hypertension Hyperlipidemia Coronary artery disease Left hamstring muscle strain UTI (urinary tract infection) Surgical History H/O right heart catheterization History of breast implant removal History of breast surgery History of appendectomy History of cholecystectomy History of total abdominal hysterectomy History of coronary artery stent placement Family History Father Hypertension Diabetes mellitus Mother Hypertension VT (myocardial infarction) Sister VT (myocardial infarction) S/P CABG x 4 Social History household members: children alcohol intake: never alcohol intake frequency: holidays/special occasions only Exam <Robby Deleon DO - Last Filed: 03/17/25 22:53> Narrative Exam Narrative: GENERAL: [89] year old patient appears stated age. Well-developed patient, in mild distress. HEAD: Atraumatic. Normocephalic. EYES: Pupils equal round and reactive. Extraocular motions intact. No scleral icterus. No injection or drainage. ENT: Nose without bleeding, purulent drainage. Throat without erythema, tonsillar hypertrophy or exudate. Airway patent. NECK: Trachea midline. Non tender CARDIOVASCULAR: Regular rate and rhythm without murmurs, gallops, or rubs. RESPIRATORY: Crackles bilateral. GASTROINTESTINAL: Abdomen soft, non-tender, nondistended. EXTREMITIES: +1 edema b/l BACK: Nontender without deformity or crepitance. No flank tenderness. NEURO: AOx3. SKIN: No rash or erythema of visible areas Initial Vital Signs Initial Vital Signs: Vital Signs Temperature 97.0 F L 03/17/25 19:34 Pulse Rate 79 03/17/25 19:34 Respiratory Rate 20 03/17/25 19:34 Blood Pressure 170/78 H 03/17/25 19:34 Pulse Oximetry 96 03/17/25 19:34 Oxygen Delivery Method Nasal Cannula 03/17/25 19:34 Oxygen Flow Rate 3 03/17/25 19:34 <Stiven Sanches MD - Last Filed: 03/18/25 02:51> Initial Vital Signs Initial Vital Signs: Vital Signs Temperature 97.0 F L 03/17/25 19:34 Pulse Rate 79 03/17/25 19:34 Respiratory Rate 20 03/17/25 19:34 Blood Pressure 170/78 H 03/17/25 19:34 Pulse Oximetry 96 03/17/25 19:34 Oxygen Delivery Method Nasal Cannula 03/17/25 19:34 Oxygen Flow Rate 3 03/17/25 19:34 Course <Robby Deleon, DO - Last Filed: 03/17/25 22:53> Orders Ordered: ED Orders 03/17/25 19:38 XR chest 1V Stat EKG-12 Lead Stat 03/17/25 19:50 Complete Blood Count AUTO DIFF Stat Comprehensive Metabolic Panel Stat Lactate (Lactic Acid) Stat NT-proBNP (BNP-Adult 18+) Stat Prothrombin Time INR Stat Troponin I Stat 03/17/25 20:40 Covid-19 + FLU A/B + RSV - PCR Stat 03/17/25 23:07 Troponin I Stat 03/18/25 02:41 Troponin I Stat Discontinued Medications Albuterol (Albuterol Hfa Prepack) 1 box MISC DIRECTED ONE Stop: 03/18/25 02:02 Last Admin: 03/18/25 02:48 Dose: 1 box Albuterol/Ipratropium (Albuterol/Ipratropium 3 Ml Ampul) 3 ml INH NOW ONE Stop: 03/17/25 20:35 Last Admin: 03/17/25 21:30 Dose: 3 ml Documented By: DAVIAN Doxycycline Hyclate (Doxycycline Hyclate 100 Mg Tablet) 100 mg PO NOW ONE Stop: 03/17/25 23:56 Last Admin: 03/18/25 00:07 Dose: 100 mg Documented By: LESLEY Furosemide (Furosemide 40 Mg/4 Ml Vial) 40 mg IV NOW ONE Stop: 03/17/25 20:35 Last Admin: 03/17/25 20:54 Dose: 40 mg Documented By: LESLEY Methylprednisolone (Methylprednisolone Succ 125 Mg/2 Ml Vial) 125 mg IV NOW ONE Stop: 03/17/25 23:37 Last Admin: 03/18/25 00:07 Dose: 125 mg Documented By: LESLEY Vital Signs Vital signs: Vital Signs - 8 hr 03/17/25 19:34 03/17/25 20:35 03/17/25 20:36 Temperature 97.0 F L Pulse Rate 79 74 Respiratory Rate 20 Blood Pressure 170/78 H 136/64 Pulse Oximetry 96 97 Oxygen Delivery Method Nasal Cannula Oxygen Flow Rate 3 03/17/25 20:36 03/17/25 21:00 03/17/25 21:01 Temperature Pulse Rate 74 73 Respiratory Rate 20 Blood Pressure 130/60 Pulse Oximetry 97 97 Oxygen Delivery Method Oxygen Flow Rate 03/17/25 21:01 03/17/25 21:30 03/17/25 21:30 Temperature Pulse Rate 80 73 Respiratory Rate Blood Pressure 158/72 H Pulse Oximetry 97 97 Oxygen Delivery Method Oxygen Flow Rate 03/17/25 21:36 03/17/25 22:00 03/17/25 22:00 Temperature Pulse Rate 75 73 Respiratory Rate 16 Blood Pressure 128/56 L Pulse Oximetry 97 98 Oxygen Delivery Method Nasal Cannula Oxygen Flow Rate 3 03/17/25 22:30 03/17/25 22:30 Temperature Pulse Rate 76 Respiratory Rate Blood Pressure 144/68 H Pulse Oximetry 97 Oxygen Delivery Method Oxygen Flow Rate <Stiven Sanches MD - Last Filed: 03/18/25 02:51> Orders Ordered: ED Orders 03/17/25 19:38 XR chest 1V Stat EKG-12 Lead Stat 03/17/25 19:50 Complete Blood Count AUTO DIFF Stat Comprehensive Metabolic Panel Stat Lactate (Lactic Acid) Stat NT-proBNP (BNP-Adult 18+) Stat Prothrombin Time INR Stat Troponin I Stat 03/17/25 20:40 Covid-19 + FLU A/B + RSV - PCR Stat 03/17/25 23:07 Troponin I Stat 03/18/25 02:41 Troponin I Stat Discontinued Medications Albuterol (Albuterol Hfa Prepack) 1 box MISC DIRECTED ONE Stop: 03/18/25 02:02 Last Admin: 03/18/25 02:48 Dose: 1 box Albuterol/Ipratropium (Albuterol/Ipratropium 3 Ml Ampul) 3 ml INH NOW ONE Stop: 03/17/25 20:35 Last Admin: 03/17/25 21:30 Dose: 3 ml Documented By: DAVIAN Doxycycline Hyclate (Doxycycline Hyclate 100 Mg Tablet) 100 mg PO NOW ONE Stop: 03/17/25 23:56 Last Admin: 03/18/25 00:07 Dose: 100 mg Documented By: LESLEY Furosemide (Furosemide 40 Mg/4 Ml Vial) 40 mg IV NOW ONE Stop: 03/17/25 20:35 Last Admin: 03/17/25 20:54 Dose: 40 mg Documented By: LESLEY Methylprednisolone (Methylprednisolone Succ 125 Mg/2 Ml Vial) 125 mg IV NOW ONE Stop: 03/17/25 23:37 Last Admin: 03/18/25 00:07 Dose: 125 mg Documented By: LESLEY Vital Signs Vital signs: Vital Signs - 8 hr 03/17/25 19:34 03/17/25 20:35 03/17/25 20:36 Temperature 97.0 F L Pulse Rate 79 74 Respiratory Rate 20 Blood Pressure 170/78 H 136/64 Pulse Oximetry 96 97 Oxygen Delivery Method Nasal Cannula Oxygen Flow Rate 3 03/17/25 20:36 03/17/25 21:00 03/17/25 21:01 Temperature Pulse Rate 74 73 Respiratory Rate 20 Blood Pressure 130/60 Pulse Oximetry 97 97 Oxygen Delivery Method Oxygen Flow Rate 03/17/25 21:01 03/17/25 21:30 03/17/25 21:30 Temperature Pulse Rate 80 73 Respiratory Rate Blood Pressure 158/72 H Pulse Oximetry 97 97 Oxygen Delivery Method Oxygen Flow Rate 03/17/25 21:36 03/17/25 22:00 03/17/25 22:00 Temperature Pulse Rate 75 73 Respiratory Rate 16 Blood Pressure 128/56 L Pulse Oximetry 97 98 Oxygen Delivery Method Nasal Cannula Oxygen Flow Rate 3 03/17/25 22:30 03/17/25 22:30 Temperature Pulse Rate 76 Respiratory Rate Blood Pressure 144/68 H Pulse Oximetry 97 Oxygen Delivery Method Oxygen Flow Rate MDM - SOB/Dyspnea <Robby Deleon, DO - Last Filed: 03/17/25 22:53> Lab Data 03/17/25 19:50 03/17/25 19:50 Labs: Lab Results 03/17/25 03/17/25 03/17/25 Range/Units 19:50 20:40 23:07 WBC 8.9 (4.5-11.0) X10^3/uL RBC 4.77 (4.0-5.2) X10^6/uL Hgb 11.2 L (12.0-16.0) g/dL Hct 35.9 L (36-46) % MCV 75.2 L (80-100) fL MCH 23.5 L (26-34) PG MCHC 31.3 (30-36) % RDW 21.6 H (11.6-14.8) % Plt Count 249 (150-400) X10^3/uL Neut % (Auto) 71.2 (50-75) % Lymph % (Auto) 19.4 L (25-40) % [place] % (Auto) 8.5 (3-14) % Eos % (Auto) 0.2 L (2-4) % Baso % (Auto) 0.7 (0-2) % Neut # (Auto) 6400 (2149-8330) /uL Lymph # (Auto) 1700 (6389-3647) /uL [place] # (Auto) 800 (0-900) /uL Eos # (Auto) 0 (0-450) /uL Baso # (Auto) 100 (0-100) /uL PT 11.8 (9.4-12.5) SECONDS INR 1.0 (0.9-1.3) Sodium 136 L (137-145) mmol/L Potassium 3.9 (3.4-5.1) mmol/L Chloride 98 (98-107) mmol/L Carbon Dioxide 33 H (22-32) mmol/L BUN 23 H (7-17) mg/dL Creatinine 1.00 (0.52-1.04) mg/dL Estimated GFR 55 L (>60) mL/min BUN/Creatinine Ratio 23.0 H (6-22) Glucose 144 H (70-99) mg/dL Lactate 1.6 (0.7-2.1) mmol/L Calcium 9.0 (8.4-10.2) mg/dL Total Bilirubin 0.5 (0.2-1.3) mg/dL AST 26 (14-36) IU/L ALT 15 (<35) IU/L Alkaline Phosphatase 44 (38-126) U/L Troponin I 0.055 H 0.065 H (0.01-0.034) ng/mL NT-Pro-B Natriuret Pep 1040 H (<450) pg/mL Total Protein 6.9 (6.3-8.2) g/dL Albumin 4.1 (3.5-5.0) g/dL Globulin 2.8 (1.7-4.1) g/dL Albumin/Globulin Ratio 1.5 (1.0-2.8) SARS-CoV-2 (PCR) Negative (Negative) Influenza A (RT-PCR) Flu a negative (NEGATIVE) Influenza B (RT-PCR) Flu b negative (NEGATIVE) RSV (PCR) Negative (Negative) 03/18/25 Range/Units 02:16 WBC (4.5-11.0) X10^3/uL RBC (4.0-5.2) X10^6/uL Hgb (12.0-16.0) g/dL Hct (36-46) % MCV (80-100) fL MCH (26-34) PG MCHC (30-36) % RDW (11.6-14.8) % Plt Count (150-400) X10^3/uL Neut % (Auto) (50-75) % Lymph % (Auto) (25-40) % [place] % (Auto) (3-14) % Eos % (Auto) (2-4) % Baso % (Auto) (0-2) % Neut # (Auto) (8862-6070) /uL Lymph # (Auto) (4658-5273) /uL [place] # (Auto) (0-900) /uL Eos # (Auto) (0-450) /uL Baso # (Auto) (0-100) /uL PT (9.4-12.5) SECONDS INR (0.9-1.3) Sodium (137-145) mmol/L Potassium (3.4-5.1) mmol/L Chloride (98-107) mmol/L Carbon Dioxide (22-32) mmol/L BUN (7-17) mg/dL Creatinine (0.52-1.04) mg/dL Estimated GFR (>60) mL/min BUN/Creatinine Ratio (6-22) Glucose (70-99) mg/dL Lactate (0.7-2.1) mmol/L Calcium (8.4-10.2) mg/dL Total Bilirubin (0.2-1.3) mg/dL AST (14-36) IU/L ALT (<35) IU/L Alkaline Phosphatase (38-126) U/L Troponin I 0.062 H (0.01-0.034) ng/mL NT-Pro-B Natriuret Pep (<450) pg/mL Total Protein (6.3-8.2) g/dL Albumin (3.5-5.0) g/dL Globulin (1.7-4.1) g/dL Albumin/Globulin Ratio (1.0-2.8) SARS-CoV-2 (PCR) (Negative) Influenza A (RT-PCR) (NEGATIVE) Influenza B (RT-PCR) (NEGATIVE) RSV (PCR) (Negative) Imaging Data Chest x-ray: Radiologist's Impression: [address] [address] XRay Report Signed Patient: Lida Townsend MR#: [id number] : 1935 Acct:[id number] Age/Sex: 89 / F Date of Service: 03/17/25 Loc: ED Accession Number: [id number] Procedure: XR chest 1V Ordering Provider: Robby Deleon D.O. PROCEDURE: XR CHEST 1V INDICATIONS: Shortness of breath TECHNIQUE: One view of the chest was acquired. COMPARISON: [facility], CR, XR CHEST 1V, 02/06/2025, 14:22. [facility], CR, XR CHEST 1V, 02/03/2025, 12:54. FINDINGS AND IMPRESSION: Mild diffuse interstitial prominence likely edema or atypical infection. Possible trace effusions. Cardiomegaly. Aortic calcifications. Degenerative osseous changes. Dictated by: Jeramy Wilcox M.D. on 03/17/2025 at 20:29 ECG Data Interpretation: NSR RAD WI 74 WI 206 QRS [address]-t wave change Unchanged from 02/03/25 MDM Narrative Medical decision making narrative: All lab work, vital signs, nurse triage note, medication list, previous ER visits, and all imaging studies reviewed. BNP 1040 troponin 1st set 0.055. WBC 8.9 hemoglobin 11.2 platelets 249 INR 1.0 sodium 136 has not 3.9 chloride 98 CO2 33 BUN 23 creatinine 1.0 glucose 144 lactic acid 1.6. Chest x-ray showed diffuse interstitial prominence likely edema or atypical infection. . Possible trace effusion cardio megaly aortic calcification. Degenerative osseous changes. Second set troponin pending patient signed out to Dr. Sanches at shift change pending final disposition. <Stiven Sanches MD - Last Filed: 03/18/25 02:51> Lab Data Labs: Lab Results 03/17/25 03/17/25 03/17/25 Range/Units 19:50 20:40 23:07 WBC 8.9 (4.5-11.0) X10^3/uL RBC 4.77 (4.0-5.2) X10^6/uL Hgb 11.2 L (12.0-16.0) g/dL Hct 35.9 L (36-46) % MCV 75.2 L (80-100) fL MCH 23.5 L (26-34) PG MCHC 31.3 (30-36) % RDW 21.6 H (11.6-14.8) % Plt Count 249 (150-400) X10^3/uL Neut % (Auto) 71.2 (50-75) % Lymph % (Auto) 19.4 L (25-40) % [place] % (Auto) 8.5 (3-14) % Eos % (Auto) 0.2 L (2-4) % Baso % (Auto) 0.7 (0-2) % Neut # (Auto) 6400 (1085-1259) /uL Lymph # (Auto) 1700 (7307-2968) /uL [place] # (Auto) 800 (0-900) /uL Eos # (Auto) 0 (0-450) /uL Baso # (Auto) 100 (0-100) /uL PT 11.8 (9.4-12.5) SECONDS INR 1.0 (0.9-1.3) Sodium 136 L (137-145) mmol/L Potassium 3.9 (3.4-5.1) mmol/L Chloride 98 (98-107) mmol/L Carbon Dioxide 33 H (22-32) mmol/L BUN 23 H (7-17) mg/dL Creatinine 1.00 (0.52-1.04) mg/dL Estimated GFR 55 L (>60) mL/min BUN/Creatinine Ratio 23.0 H (6-22) Glucose 144 H (70-99) mg/dL Lactate 1.6 (0.7-2.1) mmol/L Calcium 9.0 (8.4-10.2) mg/dL Total Bilirubin 0.5 (0.2-1.3) mg/dL AST 26 (14-36) IU/L ALT 15 (<35) IU/L Alkaline Phosphatase 44 (38-126) U/L Troponin I 0.055 H 0.065 H (0.01-0.034) ng/mL NT-Pro-B Natriuret Pep 1040 H (<450) pg/mL Total Protein 6.9 (6.3-8.2) g/dL Albumin 4.1 (3.5-5.0) g/dL Globulin 2.8 (1.7-4.1) g/dL Albumin/Globulin Ratio 1.5 (1.0-2.8) SARS-CoV-2 (PCR) Negative (Negative) Influenza A (RT-PCR) Flu a negative (NEGATIVE) Influenza B (RT-PCR) Flu b negative (NEGATIVE) RSV (PCR) Negative (Negative) 03/18/25 Range/Units 02:16 WBC (4.5-11.0) X10^3/uL RBC (4.0-5.2) X10^6/uL Hgb (12.0-16.0) g/dL Hct (36-46) % MCV (80-100) fL MCH (26-34) PG MCHC (30-36) % RDW (11.6-14.8) % Plt Count (150-400) X10^3/uL Neut % (Auto) (50-75) % Lymph % (Auto) (25-40) % [place] % (Auto) (3-14) % Eos % (Auto) (2-4) % Baso % (Auto) (0-2) % Neut # (Auto) (5357-2174) /uL Lymph # (Auto) (4084-3153) /uL [place] # (Auto) (0-900) /uL Eos # (Auto) (0-450) /uL Baso # (Auto) (0-100) /uL PT (9.4-12.5) SECONDS INR (0.9-1.3) Sodium (137-145) mmol/L Potassium (3.4-5.1) mmol/L Chloride (98-107) mmol/L Carbon Dioxide (22-32) mmol/L BUN (7-17) mg/dL Creatinine (0.52-1.04) mg/dL Estimated GFR (>60) mL/min BUN/Creatinine Ratio (6-22) Glucose (70-99) mg/dL Lactate (0.7-2.1) mmol/L Calcium (8.4-10.2) mg/dL Total Bilirubin (0.2-1.3) mg/dL AST (14-36) IU/L ALT (<35) IU/L Alkaline Phosphatase (38-126) U/L Troponin I 0.062 H (0.01-0.034) ng/mL NT-Pro-B Natriuret Pep (<450) pg/mL Total Protein (6.3-8.2) g/dL Albumin (3.5-5.0) g/dL Globulin (1.7-4.1) g/dL Albumin/Globulin Ratio (1.0-2.8) SARS-CoV-2 (PCR) (Negative) Influenza A (RT-PCR) (NEGATIVE) Influenza B (RT-PCR) (NEGATIVE) RSV (PCR) (Negative) MDM Narrative Medical decision making narrative: All lab work, vital signs, nurse triage note, medication list, previous ER visits, and all imaging studies reviewed. BNP 1040 troponin 1st set 0.055. WBC 8.9 hemoglobin 11.2 platelets 249 INR 1.0 sodium 136 has not 3.9 chloride 98 CO2 33 BUN 23 creatinine 1.0 glucose 144 lactic acid 1.6. Chest x-ray showed diffuse interstitial prominence likely edema or atypical infection. Possible trace effusion cardio megaly aortic calcification. Degenerative osseous changes. Second set troponin pending patient signed out to Dr. Sanches at shift change pending final disposition. 03/17/2025, 2300, Myron. 89-year-old female with history of COPD, using 3 L/min oxygen at baseline, with recent increased shortness of breath and cough, right-sided chest pain worse with inspiration, increase in baseline bilateral extremity edema, with some shortness of breath with exertion. Chest radiograph with some possible edema, possible atypical infection. Given nebulized bronchodilators, IV Solu-Medrol to be given, IV Lasix given. Initial troponin indeterminate range. Repeat troponin pending, has had indeterminate range troponins in the past. Assumed care. 0030, interval repeat troponin 0.065 slight increase, will further trend. 0200, interval 3rd troponin 0.062, not further increased. Patient on her baseline usual 3 L per minute home oxygen rate. Feels better. Does not want admission when offered. Patient would like to go home. Sent prescriptions for further prednisone to her requested pharmacy. Home pack of albuterol/spacer with instructions to use 2 puffs 4 times daily for the next week and then as needed. Atypical pneumonia changes mentioned on chest x-ray, oral dose of doxycycline given, prescription for further course doxycycline antibiotics sent to her requested pharmacy. Recheck advised next couple of days with PCP. Home with family. Return precautions discussed. Discharge Plan Departure Clinical Impression: Asthma exacerbation in COPD Instructions: DI for Asthma -- Adult, DI for Chronic Obstructive Pulmonary Disease Activity Restrictions/Additional Instructions: History of COPD on baseline 3 L/min oxygen, recent cough and increased shortness of breath. Labs and chest x-ray suspicious for some fluid overload, IV Lasix given. Blood tests not convincing for heart attack, mild elevation of the troponin as you have had in the past but not trending up. Chest x-ray also mentioned possible atypical pneumonia. Doxycycline antibiotic given oral dose in the emergency department, further antibiotics prescription sent to your requested pharmacy. IV steroid given for your COPD exacerbation, consider taking further oral steroids prednisone for 5 days, prescription sent to your requested pharmacy. Refill of inhaler, to use with spacer, 2 puffs 4 times daily for the next week or so, then as needed. We did discuss admission, however you felt better and wanted to go home. Further attempted treatment as an outpatient for now. Follow up with your regular doctor advised in the next couple of days. Return to this/nearest emergency department for any change worsening symptoms or any concerns prior. Prescriptions: New doxycycline hyclate 100 mg capsule 100 mg PO BID Qty: 20 0RF prednisone 20 mg tablet 40 mg PO DAILY 5 Days Qty: 10 0RF No Action aspirin 81 MG tablet,delayed release (DR/EC) 81 mg PO DAILY Qty: 0 pantoprazole 40 mg Tablet,Delayed Release (Dr/Ec) 40 mg PO DAILY escitalopram oxalate 20 mg Tablet 20 mg PO DAILY insulin lispro [Admelog U-100 Insulin lispro] 100 unit/mL Solution 7 unit SUBCUT AC Qty: 30 0RF insulin lispro [Admelog U-100 Insulin lispro] 100 unit/mL Solution 0 unit SUBCUT ACHS Qty: 30 0RF insulin glargine [Lantus Solostar U-100 Insulin] 100 unit/mL (3 mL) Insulin Pen 20 unit SUBCUT BEDTIME Qty: 30 0RF guaifenesin [Mucus Relief ER] 600 mg Tablet Extended Release 12hr 600 mg PO BID Qty: 60 0RF (DME) miscellaneous medical supply Package See Rx Instructions .Route Qty: 100 2RF Rx Instructions: Needle tips for insulin pen U 100 insulin syringes nystatin 100,000 unit/mL suspension 100,000 unit PO QID Qty: 500 0RF Rx Instructions: administer 1/2 of dose in each side of the mouth nystatin 100,000 unit/gram ointment 1 applic topical BID Qty: 120 1RF nitroglycerin 0.4 mg tablet, sublingual 1 tab sublingual [id number] PRN (Reason: Chest Pain) Patient Comments: take it when needed, last dose unknown rosuvastatin 40 mg tablet 40 mg PO QPM acetaminophen-codeine 300-30 mg tablet 1 tab PO BID PRN (Reason: pain) ipratropium-albuterol 0.5 mg-3 mg(2.5 mg base)/3 mL solution for nebulization 3 ml inhalation DIRECTED PRN (Reason: sob, wheezing) ranolazine 500 mg tablet extended release 12 hr 500 mg PO BID (DME) lancets [FreeStyle Lancets] 28 gauge misc 1 ea MISCELLANEOUS 3XD metoprolol tartrate 25 mg Tablet 12.5 mg PO BID Qty: 30 0RF prednisone 10 mg tablet 10 mg PO DAILY Qty: 30 2RF torsemide 10 mg tablet 10 mg PO BID Qty: 60 1RF potassium chloride 20 mEq tablet extended release 20 meq PO BID Qty: 60 2RF Referrals: Zoe Bass PA-C [Primary Care Provider, Family Practice]
[2025-03-17 20:31] LABS: NT-proBNP (BNP-Adult 18+) 1040 pg/mL (<450); Troponin I 0.055 ng/mL (0.01-0.034)
--- NOTE | 2025-03-17 20:45 | PC.NURSE ---
pt has had increasing SOB over the last 24hrs and pain with inspiration, hx of copd and chf, is on 4L O2 per NC and is able to speak in complete sentences
[2025-03-17] MEDS: FUROSEMIDE 40 MG/4 ML VIAL IV (20:54)
--- NOTE | 2025-03-17 21:11 | PC.NURSE ---
pt cleaned and changed of wet pullups and purewick placed
[2025-03-17 21:24] LABS: COVID-19 CEPHEID 4-PLEX PCR Negative (Negative); Influenza A - CEPHEID Flu A NEGATIVE (NEGATIVE); Influenza B - CEPHEID Flu B NEGATIVE (NEGATIVE)
[2025-03-17] MEDS: ALBUTEROL/IPRATROPIUM 3 ML AMPUL INH (21:30)
[2025-03-17 23:56] LABS: Troponin I 0.065 ng/mL (0.01-0.034)
[2025-03-18] VITALS: BP 140/63; PULSE 75; O2SAT 98
[2025-03-18] MEDS: methylPREDNISolone succ 125 MG/2 ML VIAL IV (00:07)
[2025-03-18] MEDS: DOXYCYCLINE HYCLATE 100 MG TABLET PO (00:07)
[2025-03-18 00:30] VITALS: PULSE 76; O2SAT 98
[2025-03-18 01:00] VITALS: PULSE 78; O2SAT 99
[2025-03-18 01:30] VITALS: PULSE 79; O2SAT 98
[2025-03-18 02:00] VITALS: PULSE 81; O2SAT 98
[2025-03-18 02:30] VITALS: PULSE 83; O2SAT 97
[2025-03-18 02:44] LABS: Troponin I 0.062 ng/mL (0.01-0.034)
[2025-03-18] MEDS: ALBUTEROL HFA PREPACK 1 BOX MISC (02:48)
== END 2025-03-18 03:13 | disposition home or self-care (01) ==
PROVIDERS: Family Medicine; Emergency Provider Emergency Medicine; Family Provider Internal Medicine; PCP Physician Assistant Medical
DX: J44.1 Chronic obstructive pulmonary disease with (acute) exacerbation (principal); Z99.81 Dependence on supplemental oxygen; E11.9 Type 2 diabetes mellitus without complications; Z79.4 Long term (current) use of insulin; Z86.79 Personal history of other diseases of the circulatory system; Z79.01 Long term (current) use of anticoagulants
CPT/HCPCS: 36415; 71045; 80053; 83605; 83880; 84484; 85025; 85610; 87637; 93005; 94640; 96374; 96375; 99285; J1938; J2919

== ENCOUNTER 2025-04-16 20:43 | Inpatient (IN) | payer MEDICARE, OTHER, SELFPAY ==
[2025-02-03 20:17] VITALS: BMI 43.1
[2025-04-16] VITALS (19 sets, daily range): BP systolic 128–221; BP diastolic 75–90; PULSE 82–91; RESP 14–24; TEMP 37.2; O2SAT 96–99; BMI 41.3
--- NOTE | 2025-04-16 20:49 | ED.SOB ---
HPI - SOB/Dyspnea General Chief Complaint: Shortness of Breath/Dyspnea Stated Complaint: SOB History of Present Illness HPI Narrative: 89-year-old female history of COPD on 3 L nasal cannula, diabetes on insulin, hypertension, dyslipidemia, CAD with prior cardiac stenting 6 stents presents via EMS with cough shortness of breath dyspnea on exertion for the past few days given DuoNeb prior to arrival by sats were in the high 80s prior to arrival up to 98% on 6 L. Other than what is stated 14 point review of system is negative Related Data Home Medications ?Medication ?Instructions ?Recorded ?Confirmed aspirin 81 mg tablet,delayed 81 mg PO DAILY ##0 05/14/17 02/03/25 release nitroglycerin 0.4 mg sublingual 1 tab sublingual [id number] PRN Chest 11/18/18 02/03/25 tablet Pain rosuvastatin 40 mg tablet 40 mg PO QPM 11/18/18 02/03/25 escitalopram oxalate 20 mg tablet 20 mg PO DAILY 03/06/21 02/03/25 pantoprazole 40 mg tablet,delayed 40 mg PO DAILY 03/06/21 02/03/25 release acetaminophen 300 mg-codeine 30 mg 1 tab PO BID PRN pain 07/03/24 02/03/25 tablet ipratropium 0.5 mg-albuterol 3 mg 3 ml inhalation DIRECTED PRN 07/03/24 02/03/25 (2.5 mg base)/3 mL nebulization sob, wheezing soln ranolazine 500 mg tablet,extended 500 mg PO BID 07/03/24 02/03/25 release,12 hr lancets 28 gauge (FreeStyle 02/03/25 02/03/25 Lancets) Previous Rx's ?Medication ?Instructions ?Recorded guaifenesin 600 mg tablet, 600 mg PO BID #60 tabs 01/23/25 extended release 12 hr (Mucus Relief ER) insulin glargine 100 unit/mL (3 20 unit (0.2 mL) SUBCUT BEDTIME 01/23/25 mL) subcutaneous pen (Lantus #30 mL Solostar U-100 Insulin) insulin lispro 100 unit/mL 0 unit (0 mL) SUBCUT ACHS #30 mL 01/23/25 subcutaneous solution (Admelog U-100 Insulin lispro) insulin lispro 100 unit/mL 7 unit (0.07 mL) SUBCUT AC #30 mL 01/23/25 subcutaneous solution (Admelog U-100 Insulin lispro) miscellaneous medical supply #100 ea 01/23/25 nystatin 100,000 unit/gram topical 1 applic topical BID #120 grams 01/23/25 ointment nystatin 100,000 unit/mL oral 100,000 unit PO QID #500 mL 01/23/25 suspension metoprolol tartrate 25 mg tablet 12.5 mg (1/2 x 25 mg) PO BID #30 02/13/25 tabs potassium chloride 20 mEq 20 meq PO BID #60 tabs 02/13/25 tablet,extended release prednisone 10 mg tablet 10 mg PO DAILY #30 tabs 02/13/25 torsemide 10 mg tablet 10 mg PO BID #60 tabs 02/13/25 doxycycline hyclate 100 mg capsule 100 mg PO BID #20 caps 03/18/25 Allergies Allergy/AdvReac Type Severity Reaction Status Date / Time Iodinated Contrast Media Allergy Severe Unconscious Verified 03/17/25 19:34 (IODINATED CONTRAST- ORAL AND IV DYE) morphine (MORPHINE) Allergy Severe Rash Verified 03/17/25 19:34 telmisartan (TELMISARTAN) Allergy Severe Rash Verified 03/17/25 19:34 Review of Systems Review of Systems ROS Unobtainable: All systems reviewed & are unremarkable except as noted in HPI and below Patient History Medical History Chronic respiratory failure with hypoxia Skin cancer NSTEMI (non-ST elevated myocardial infarction) Diastolic heart failure Cardiac arrest Chest pain Hypertension Hyperlipidemia Coronary artery disease Left hamstring muscle strain UTI (urinary tract infection) Surgical History H/O right heart catheterization History of breast implant removal History of breast surgery History of appendectomy History of cholecystectomy History of total abdominal hysterectomy History of coronary artery stent placement Family History Father Hypertension Diabetes mellitus Mother Hypertension IA (myocardial infarction) Sister IA (myocardial infarction) S/P CABG x 4 Social History household members: children Smoking Status: Never smoker alcohol intake: never alcohol intake frequency: holidays/special occasions only Exam Narrative Exam Narrative: GENERAL: [89] year old patient appears stated age. Well-developed patient, in mild distress. HEAD: Atraumatic. Normocephalic. EYES: Pupils equal round and reactive. Extraocular motions intact. No scleral icterus. No injection or drainage. ENT: Nose without bleeding, purulent drainage. Throat without erythema, tonsillar hypertrophy or exudate. Airway patent. NECK: Trachea midline. Non tender CARDIOVASCULAR: Regular rate and rhythm without murmurs, gallops, or rubs. RESPIRATORY: Dec breath sounds with crackles at bases GASTROINTESTINAL: Abdomen soft, non-tender, nondistended. EXTREMITIES: trace edema b/l l/e BACK: Nontender without deformity or crepitance. No flank tenderness. NEURO: AOx3. SKIN: No rash or erythema of visible areas Initial Vital Signs Initial Vital Signs: Vital Signs Temperature 99 F 04/16/25 20:40 Pulse Rate 90 04/16/25 20:40 Respiratory Rate 24 04/16/25 20:40 Blood Pressure 128/75 04/16/25 20:40 Pulse Oximetry 97 04/16/25 20:40 Oxygen Delivery Method Nasal Cannula 04/16/25 20:40 Oxygen Flow Rate 2 04/16/25 20:40 Course Orders Ordered: ED Orders 04/16/25 20:51 CT angio chest PE protocol Stat Respiratory Panel (Film Array) Stat EKG-12 Lead Stat Venous Blood Gas STAT 04/16/25 21:00 Blood Culture Stat Complete Blood Count AUTO DIFF Stat Comprehensive Metabolic Panel Stat Lactate (Lactic Acid) Stat Lipase Stat Magnesium Stat NT-proBNP (BNP-Adult 18+) Stat Troponin I Stat 04/16/25 21:09 Venous Blood Gas Routine Famotidine (Famotidine 20 Mg/2 Ml Vial) 20 mg IV NOW AFIA Discontinued Medications Albuterol/Ipratropium (Albuterol/Ipratropium 3 Ml Ampul) 3 ml INH NOW ONE Stop: 04/16/25 20:53 Last Admin: 04/16/25 21:17 Dose: 3 ml Documented By: PV Diphenhydramine HCl (Diphenhydramine 50 Mg/Ml Vial) 50 mg IV NOW ONE Stop: 04/16/25 20:56 Last Admin: 04/16/25 21:10 Dose: 50 mg Documented By: BZ Methylprednisolone (Methylprednisolone Succ 125 Mg/2 Ml Vial) 125 mg IV NOW ONE Stop: 04/16/25 20:56 Last Admin: 04/16/25 21:10 Dose: 125 mg Documented By: RICCO Vital Signs Vital signs: Vital Signs - 8 hr 04/16/25 20:40 04/16/25 21:17 Temperature 99 F Pulse Rate 90 88 Respiratory Rate 24 20 Blood Pressure 128/75 Pulse Oximetry 97 97 Oxygen Delivery Method Nasal Cannula Nasal Cannula Oxygen Flow Rate 2 2 Fraction of Inspired Oxygen 28 MDM - SOB/Dyspnea Lab Data 04/16/25 21:00 04/16/25 21:00 Labs: Lab Results 04/16/25 04/16/25 Range/Units 21:00 21:09 WBC 15.7 H (4.5-11.0) X10^3/uL RBC 4.88 (4.0-5.2) X10^6/uL Hgb 11.2 L (12.0-16.0) g/dL Hct 36.1 (36-46) % MCV 73.9 L (80-100) fL MCH 23.0 L (26-34) PG MCHC 31.1 (30-36) % RDW 22.1 H (11.6-14.8) % VBG pH 7.45 H (7.33-7.43) VBG pCO2 53.7 H (45-50) mmHg VBG pO2 36 (35-45) mmHg VBG HCO3 38 H (24-28) mmol/L VBG Total CO2 36 H (24-29) mmol/L VBG O2 Saturation 69 L (70-75) % VBG Base Excess 11.5 H (0-4) mmol/L FiO2 % 28.0 % % Sodium 136 L (137-145) mmol/L Potassium 3.7 (3.4-5.1) mmol/L Chloride 95 L (98-107) mmol/L Carbon Dioxide 33 H (22-32) mmol/L BUN 28 H (7-17) mg/dL Creatinine 1.01 (0.52-1.04) mg/dL Estimated GFR 54 L (>60) mL/min BUN/Creatinine Ratio 27.7 H (6-22) Glucose 200 H (70-99) mg/dL Lactate 3.2 H (0.7-2.1) mmol/L Calcium 9.0 (8.4-10.2) mg/dL Magnesium 1.9 (1.6-2.3) mg/dL Total Bilirubin 0.4 (0.2-1.3) mg/dL AST 28 (14-36) IU/L ALT 14 (<35) IU/L Alkaline Phosphatase 50 (38-126) U/L Total Protein 6.8 (6.3-8.2) g/dL Albumin 4.1 (3.5-5.0) g/dL Globulin 2.7 (1.7-4.1) g/dL Albumin/Globulin Ratio 1.5 (1.0-2.8) Lipase 127 (23-300) U/L Imaging Data CT scan - chest: Radiologist's Impression: [address] [address] [address] Scan Report Signed Patient: Lida Townsend MR#: [id number] : 1935 Acct:[id number] Age/Sex: 89 / F Date of Service: 04/16/25 Loc: ED Accession Number: [id number] Procedure: CT angio chest PE protocol Ordering Provider: Robby Deleon D.O. PROCEDURE: CT ANGIO CHEST PE PROTOCOL INDICATIONS: sob TECHNIQUE: After the administration of intravenous contrast, 2 mm thick sections acquired from the pulmonary apices to the posterior costophrenic angles. 3-dimensional maximum intensity projection (MIP) coronal and sagittal reformats were then acquired through the thorax. For radiation dose reduction, the following was used: automated exposure control, adjustment of mA and/or kV according to patient size. COMPARISON: [facility], CT, CT ANGIO CHEST PE PROTOCOL, 02/03/2025, 15:42. FINDINGS: Image quality: Diagnostic. Pulmonary arteries: Pulmonary arteries are normal in size, and demonstrate no intraluminal filling defects to suggest central pulmonary embolism. Lower Neck: No enlarged lymph nodes. Thyroid: No thyroid nodules which require sonographic follow up, per consensus guidelines. Axillae: No enlarged lymph nodes. Chest Wall: Stable size of subcutaneous mass/density in the right chest wall, medial region of the breast, measuring 3.6 x 2.1 cm ().. Bones: Chronic multilevel thoracic spine compression deformities. Exaggerated thoracic kyphosis. Degenerative changes of the spine is severe bilateral glenohumeral joint and acromioclavicular degenerative change. Lungs and Pleura: No pneumothorax or pleural effusions. Mild interlobular septal thickening, predominantly at the lung bases, as well as areas of mosaic attenuation, suggestive of mild pulmonary edema. Mild bilateral dependent atelectasis. Heart: Stable cardiomegaly. No pericardial effusion. Severe coronary artery calcifications. Thoracic Vessels: No aortic aneurysm. Mediastinum and Usha: No enlarged lymph nodes. Esophagus: No wall thickening. No hiatal hernia. Upper Abdomen: Visualized upper abdomen solid organs and bowel loops appear normal. IMPRESSION: No pulmonary embolus. Mild pulmonary edema. No significant pleural effusion. Stable appearance of right subcutaneous chest wall mass/density measuring 3.6 cm. Correlate with dedicated breast imaging. Dictated by: Esequiel Hylton M.D. on 04/16/2025 at 22:00 Approved by: Esequiel Hylton M.D. on 04/16/2025 at 22:09 ECG Data Interpretation: NSR HR 88 TN 190 QRS [address]-t wave change Unchanged from 03/17/25 MDM Narrative Medical decision making narrative: All lab work, vital signs, nurse triage note, medication list, previous ER visits, and all imaging studies reviewed. WBC 15.7 Hg 11.2 Plt ph 7.45 pC02 53.7 HCO3 38. NA 136 K 3.7 Cl 95 CO2 33 Bun 28 Cr 1.01 Glu 200 lactic acid 3.2. Trop 0.097 and 2nd set 0.086. BNP 1060 lipase 127. CTA showed no pulmonary embolus. Mild pulmonary edema. No significant pleural effusion. Stable appearance of right subcutaneous chest wall mass density measuring 3.6 cm. Patient given Rocephin Zithromax Solu-Medrol and Lasix here with UOP 500ml. Case d/w who did not have believe this was a true acute IA and to admit to hospitalist service. Case discussed with who has graciously accepted pt for inpatient admission. Differential dx chf, copd, sepsis, covid/flu/rsv, stemi, nstemi Discharge Plan Departure Patient Disposition: Admitted As Inpatient Clinical Impression: Rhinovirus infection, Acute exacerbation of chronic obstructive pulmonary disease, Acute exacerbation of CHF (congestive heart failure) Admit Date/Time: 04/17/25 01:22 Admit Provider: Guido Adan
--- NOTE | 2025-04-16 20:51 | EKG_ITS ---
[place] [id number] [place] [id number] Test Date: 2025-04-16 Pat Name: Lida Healdton Department: [facility] Room: Gender: Female Cook Fry: ROSA : 1935 Requested By: Order Number: [id number] Reading MD: William Velázquez Measurements Intervals [place] Rate: 88 P: 62 SD: 190 QRS: 95 QRSD: 88 T: 26 QT: 420 QTc: 508 Interpretive Statements Normal sinus rhythm Right ventricular hypertrophy with repolarization abnormality Electronically Signed On 04-19-2025 12:57:19 PST by William Velázquez
[2025-04-16] MEDS: methylPREDNISolone succ 125 MG/2 ML VIAL IV (21:10)
[2025-04-16] MEDS: diphenhydrAMINE 50 MG/ML VIAL IV (21:10)
[2025-04-16 21:12] LABS: Base Excess VBG 11.5 mmol/L (0-4); HCO3 VBG 38 mmol/L (24-28); Oxygen Saturation VBG 69 % (70-75); PCO2 VBG 53.7 mmHg (45-50); PO2 VBG 36 mmHg (35-45); Total CO2 VBG 36 mmol/L (24-29); pH VBG 7.45 (7.33-7.43)
[2025-04-16] MEDS: ALBUTEROL/IPRATROPIUM 3 ML AMPUL INH (21:17)
[2025-04-16 21:24] LABS: Add Manual Diff / Slide Review NO; Hematocrit 36.1 % (36-46); Hemoglobin 11.2 g/dL (12.0-16.0); Lymphocytes Absolute Auto 4900 /uL (1100-4500); Mean Corpuscular HGB Conc 31.1 % (30-36); Mean Corpuscular Hemoglobin 23.0 PG (26-34); Mean Corpuscular Volume 73.9 fL (80-100); Platelet Count 232 X10^3/uL (150-400)
[2025-04-16 21:32] LABS: Lactate (Lactic Acid) 3.2 mmol/L (0.7-2.1)
[2025-04-16 21:33] LABS: Alanine Aminotransferase 14 IU/L (<35); Albumin 4.1 g/dL (3.5-5.0); Albumin Globulin Ratio 1.5 (1.0-2.8); Alkaline Phosphatase 50 U/L (38-126); Blood Urea Nitrogen 28 mg/dL (7-17); Calcium 9.0 mg/dL (8.4-10.2); Carbon Dioxide 33 mmol/L (22-32); Chloride 95 mmol/L (98-107); Estimated Glomerular Filt Rate 54 mL/min (>60); Globulin 2.7 g/dL (1.7-4.1); Glucose 200 mg/dL (70-99); HEMOLYSIS 29 (0-50); Lipase 127 U/L (23-300); Magnesium 1.9 mg/dL (1.6-2.3); Potassium 3.7 mmol/L (3.4-5.1); Sodium 136 mmol/L (137-145); Total Protein 6.8 g/dL (6.3-8.2)
[2025-04-16 21:44] LABS: Microcytosis 1+
[2025-04-16 21:45] LABS: NT-proBNP (BNP-Adult 18+) 1060 pg/mL (<450); Troponin I 0.097 ng/mL (0.01-0.034)
[2025-04-16] MEDS: FAMOTIDINE 20 MG/2 ML VIAL IV (22:00)
[2025-04-16 22:45] LABS: Reflexed Lactate in 2 Hours Y
[2025-04-16] MEDS: FUROSEMIDE 40 MG/4 ML VIAL IV (23:04)
[2025-04-16 23:12] LABS: Coronavirus NL 63 Not Detected (Not Detect); SARS- CoV-2 Not Detected (Not Detecte)
[2025-04-16 23:13] LABS: Culture Indicated Urine Cult Not Indicated
[2025-04-16] MEDS: AZITHROMYCIN 500 MG in DEXTROSE 5% IN WATER 250 ML 250 MG IV (23:50)
[2025-04-17] VITALS (12 sets, daily range): BP systolic 149–194; BP diastolic 53–92; PULSE 80–100; RESP 14–20; TEMP 36.2–36.7; O2SAT 93–99; BMI 41.3
[2025-04-17 00:04] LABS: Lactate 2HR (Lactic Acid Rflx) 2.1 mmol/L (0.7-2.1)
[2025-04-17 00:17] LABS: Troponin I 0.086 ng/mL (0.01-0.034)
--- NOTE | 2025-04-17 03:45 | PM.HP.1 ---
History of Present Illness History of Present Illness Date Patient Seen: 04/17/25 Time Patient Seen: 02:10 Chief complaint: SOB Narrative: 89-year-old female with past medical history of chronic diastolic heart failure, coronary disease status post 6 stents, COPD with chronic 3 L of oxygen per nasal cannula, insulin-dependent diabetes, hyperlipidemia and hypertension presents with a cough and shortness of breath. Per the patient's report, over the last few days, the patient has had increasing shortness of breath despite using her DuoNebs at home. The patient also noted that her oxygenation was in the 80s despite using. 3 and increasing to 4 L of oxygen per nasal cannula. Otherwise the patient denies any fever, chills, nausea, vomiting, diarrhea, chest pain or syncope. In the emergency room, the patient was requiring 6 L of oxygen per nasal cannula. Patient otherwise hemodynamically stable. Labs shows a WBC of 15 bicarb of 33 glucose 200 lactate 3.2 troponin 0.09 and repeat 0.08. BNP 1060. VBG shows a pH of 7.45 pCO2 of 53 and bicarb of 38. Chest x-ray suggested pulmonary edema that is mild. The patient was given IV Lasix along with Rocephin azithromycin mycin Solu-Medrol and DuoNebs. FOR[facility]LY [facility] Medical History Chronic respiratory failure with hypoxia Skin cancer NSTEMI (non-ST elevated myocardial infarction) Diastolic heart failure Cardiac arrest Chest pain Hypertension Hyperlipidemia Coronary artery disease Left hamstring muscle strain UTI (urinary tract infection) Surgical History H/O right heart catheterization History of breast implant removal History of breast surgery History of appendectomy History of cholecystectomy History of total abdominal hysterectomy History of coronary artery stent placement Family History Father Hypertension Diabetes mellitus Mother Hypertension DC (myocardial infarction) Sister DC (myocardial infarction) S/P CABG x 4 Social History household members: children Smoking Status: Never smoker alcohol intake: never Meds Home Medications and Allergies Home Medications ?Medication ?Instructions ?Recorded ?Confirmed ?Type aspirin 81 mg tablet,delayed 81 mg PO DAILY ##0 05/14/17 02/03/25 History release nitroglycerin 0.4 mg sublingual 1 tab sublingual [id number] PRN Chest 11/18/18 02/03/25 History tablet Pain rosuvastatin 40 mg tablet 40 mg PO QPM 11/18/18 02/03/25 History escitalopram oxalate 20 mg tablet 20 mg PO DAILY 03/06/21 02/03/25 History pantoprazole 40 mg tablet,delayed 40 mg PO DAILY 03/06/21 02/03/25 History release acetaminophen 300 mg-codeine 30 mg 1 tab PO BID PRN pain 07/03/24 02/03/25 History tablet ipratropium 0.5 mg-albuterol 3 mg 3 ml inhalation DIRECTED PRN 07/03/24 02/03/25 History (2.5 mg base)/3 mL nebulization sob, wheezing soln ranolazine 500 mg tablet,extended 500 mg PO BID 07/03/24 02/03/25 History release,12 hr guaifenesin 600 mg tablet, 600 mg PO BID #60 tabs 01/23/25 02/03/25 Rx extended release 12 hr (Mucus Relief ER) insulin glargine 100 unit/mL (3 20 unit (0.2 mL) SUBCUT BEDTIME 01/23/25 02/03/25 Rx mL) subcutaneous pen (Lantus #30 mL Solostar U-100 Insulin) insulin lispro 100 unit/mL 0 unit (0 mL) SUBCUT ACHS #30 mL 01/23/25 02/03/25 Rx subcutaneous solution (Admelog U-100 Insulin lispro) insulin lispro 100 unit/mL 7 unit (0.07 mL) SUBCUT AC #30 mL 01/23/25 02/03/25 Rx subcutaneous solution (Admelog U-100 Insulin lispro) miscellaneous medical supply #100 ea 01/23/25 02/03/25 Rx nystatin 100,000 unit/gram topical 1 applic topical BID #120 grams 01/23/25 02/03/25 Rx ointment nystatin 100,000 unit/mL oral 100,000 unit PO QID #500 mL 01/23/25 02/03/25 Rx suspension lancets 28 gauge (FreeStyle 02/03/25 02/03/25 History Lancets) metoprolol tartrate 25 mg tablet 12.5 mg (1/2 x 25 mg) PO BID #30 02/13/25 Rx tabs potassium chloride 20 mEq 20 meq PO BID #60 tabs 02/13/25 Rx tablet,extended release prednisone 10 mg tablet 10 mg PO DAILY #30 tabs 02/13/25 Rx torsemide 10 mg tablet 10 mg PO BID #60 tabs 02/13/25 Rx doxycycline hyclate 100 mg capsule 100 mg PO BID #20 caps 03/18/25 Rx Allergies Allergy/AdvReac Type Severity Reaction Status Date / Time Iodinated Contrast Media Allergy Severe Unconscious Verified 03/17/25 19:34 (IODINATED CONTRAST- ORAL AND IV DYE) morphine (MORPHINE) Allergy Severe Rash Verified 03/17/25 19:34 telmisartan (TELMISARTAN) Allergy Severe Rash Verified 03/17/25 19:34 Review of Systems Review of Systems ROS: Yes All systems reviewed with the patient and are negative except as otherwise documented Exam Vital Signs (past 8 hours): - 04/16/25 20:40 04/16/25 20:49 04/16/25 21:00 Temperature 99 F Pulse Rate 90 89 87 Respiratory Rate 24 21 Blood Pressure 128/75 Pulse Oximetry 97 97 99 Oxygen Delivery Method Nasal Cannula Nasal Cannula Oxygen Flow Rate 2 2 Fraction of Inspired Oxygen 04/16/25 21:02 04/16/25 21:02 04/16/25 21:06 Temperature Pulse Rate 88 85 Respiratory Rate 18 18 Blood Pressure 128/75 Pulse Oximetry 98 97 Oxygen Delivery Method Oxygen Flow Rate Fraction of Inspired Oxygen 04/16/25 21:07 04/16/25 21:09 04/16/25 21:09 Temperature Pulse Rate 86 85 Respiratory Rate 23 20 Blood Pressure 203/81 H Pulse Oximetry 97 98 Oxygen Delivery Method Room Air Oxygen Flow Rate 2 Fraction of Inspired Oxygen 04/16/25 21:17 04/16/25 21:31 04/16/25 21:34 Temperature Pulse Rate 88 91 H Respiratory Rate 20 Blood Pressure 209/79 H Pulse Oximetry 97 96 Oxygen Delivery Method Nasal Cannula Oxygen Flow Rate 2 Fraction of Inspired Oxygen 28 04/16/25 21:34 04/16/25 21:57 04/16/25 21:57 Temperature Pulse Rate 90 85 Respiratory Rate 14 21 Blood Pressure 179/82 H Pulse Oximetry 98 99 Oxygen Delivery Method Oxygen Flow Rate Fraction of Inspired Oxygen 04/16/25 22:00 04/16/25 22:00 04/16/25 22:30 Temperature Pulse Rate 84 84 Respiratory Rate 17 15 Blood Pressure 173/76 H Pulse Oximetry 99 98 Oxygen Delivery Method Oxygen Flow Rate Fraction of Inspired Oxygen 04/16/25 22:30 04/16/25 22:32 04/16/25 22:32 Temperature Pulse Rate 83 Respiratory Rate 22 Blood Pressure 200/78 H 199/90 H Pulse Oximetry 98 Oxygen Delivery Method Room Air Oxygen Flow Rate 2 Fraction of Inspired Oxygen 04/16/25 23:00 04/16/25 23:01 04/16/25 23:01 Temperature Pulse Rate 83 83 Respiratory Rate 21 21 Blood Pressure 221/89 H Pulse Oximetry 99 99 Oxygen Delivery Method Oxygen Flow Rate Fraction of Inspired Oxygen 04/16/25 23:10 04/16/25 23:10 04/16/25 23:30 Temperature Pulse Rate 84 83 Respiratory Rate 15 14 Blood Pressure 209/87 H Pulse Oximetry 99 97 Oxygen Delivery Method Nasal Cannula Oxygen Flow Rate 3 Fraction of Inspired Oxygen 04/16/25 23:31 04/16/25 23:31 04/17/25 00:00 Temperature Pulse Rate 82 82 Respiratory Rate 19 14 Blood Pressure 206/81 H Pulse Oximetry 98 98 Oxygen Delivery Method Oxygen Flow Rate Fraction of Inspired Oxygen 04/17/25 00:01 04/17/25 00:01 04/17/25 00:30 Temperature Pulse Rate 81 80 Respiratory Rate 14 16 Blood Pressure 194/77 H Pulse Oximetry 99 99 Oxygen Delivery Method Nasal Cannula Nasal Cannula Oxygen Flow Rate 3 3 Fraction of Inspired Oxygen 04/17/25 00:31 04/17/25 00:31 04/17/25 01:00 Temperature Pulse Rate 80 Respiratory Rate 16 Blood Pressure 180/76 H 183/78 H Pulse Oximetry 99 Oxygen Delivery Method Oxygen Flow Rate Fraction of Inspired Oxygen 04/17/25 01:00 Temperature Pulse Rate 80 Respiratory Rate 18 Blood Pressure Pulse Oximetry 99 Oxygen Delivery Method Nasal Cannula Oxygen Flow Rate 3 Fraction of Inspired Oxygen Fraction of Inspired Oxygen 28 SaO2/FiO2 Ratio 346 Oxygen Delivery Method Nasal Cannula Oxygen Flow Rate 3 Narrative Exam Narrative: Physical Exam: GENERAL: The patient is not in any acute distressed. Awake and alert. HEENT: Nonicteric sclerae, PERRLA, EOMI. Oropharynx clear. Moist mucous membranes. Conjunctivae appear well perfused. HEART: Regular rate and rhythm without murmurs. 1+ lower extremities edema. LUNGS: Bilateral crackles at bases otherwise Clear to auscultation bilaterally. No wheezing, or rhonchi ABDOMEN: Soft, positive bowel sounds, nontender. SKIN: No rash, no excessive bruising, petechiae, or purpura. NEUROLOGIC: AxO x 3. Cranial nerves II-XII intact without motor/sensory deficit. Objective Labs 04/16/25 21:00 04/16/25 21:00 Labs: Laboratory Results - last 24 hr 04/16/25 04/16/25 04/16/25 21:00 21:09 22:12 WBC 15.7 H RBC 4.88 Hgb 11.2 L Hct 36.1 MCV 73.9 L MCH 23.0 L MCHC 31.1 RDW 22.1 H Plt Count 232 Neut % (Auto) 60.9 Lymph % (Auto) 31.0 Calloway % (Auto) 7.0 Eos % (Auto) 0.3 L Baso % (Auto) 0.8 Neut # (Auto) 9600 H Lymph # (Auto) 4900 H Calloway # (Auto) 1100 H Eos # (Auto) 0 Baso # (Auto) 100 RBC Morphology See below Microcytosis 1+ H VBG pH 7.45 H VBG pCO2 53.7 H VBG pO2 36 VBG HCO3 38 H VBG Total CO2 36 H VBG O2 Saturation 69 L VBG Base Excess 11.5 H FiO2 % 28.0 % Sodium 136 L Potassium 3.7 Chloride 95 L Carbon Dioxide 33 H BUN 28 H Creatinine 1.01 Estimated GFR 54 L BUN/Creatinine Ratio 27.7 H Glucose 200 H Lactate 3.2 H Calcium 9.0 Magnesium 1.9 Total Bilirubin 0.4 AST 28 ALT 14 Alkaline Phosphatase 50 Troponin I 0.097 H NT-Pro-B Natriuret Pep 1060 H Total Protein 6.8 Albumin 4.1 Globulin 2.7 Albumin/Globulin Ratio 1.5 Lipase 127 Urine RBC Urine WBC Ur Squamous Epith Cells Urine Bacteria Ur Culture Indicated? Vol Urine Centrifuged Chlamy pneumoniae PCR Not detected Adenovirus (PCR) Not detected B. pertussis DNA (PCR) Not detected B.parapertussis DNA PCR Not detected Coronavirus OC43 (PCR) Not detected Coronavirus HKU1 (PCR) Not detected Coronavirus 229E (PCR) Not detected SARS-CoV-2 (PCR) Not detected Coronavirus NL63 (PCR) Not detected Human Metapneumovir PCR Not detected Influenza Type A (PCR) Not detected Influenza Type B (PCR) Not detected M. pneumoniae (PCR) Not detected Parainfluenza 1 (PCR) Not detected Parainfluenza 2 (PCR) Not detected Parainfluenza 3 (PCR) Not detected Parainfluenza 4 (PCR) Not detected RSV (PCR) Not detected Entero/Rhino (PCR) Detected H 04/16/25 04/16/25 22:16 23:20 WBC RBC Hgb Hct MCV MCH MCHC RDW Plt Count Neut % (Auto) Lymph % (Auto) Calloway % (Auto) Eos % (Auto) Baso % (Auto) Neut # (Auto) Lymph # (Auto) Calloway # (Auto) Eos # (Auto) Baso # (Auto) RBC Morphology Microcytosis VBG pH VBG pCO2 VBG pO2 VBG HCO3 VBG Total CO2 VBG O2 Saturation VBG Base Excess FiO2 % Sodium Potassium Chloride Carbon Dioxide BUN Creatinine Estimated GFR BUN/Creatinine Ratio Glucose Lactate 2.1 Calcium Magnesium Total Bilirubin AST ALT Alkaline Phosphatase Troponin I 0.086 H NT-Pro-B Natriuret Pep Total Protein Albumin Globulin Albumin/Globulin Ratio Lipase Urine RBC 0-1/hpf Urine WBC None seen Ur Squamous Epith Cells 0-1 /hpf Urine Bacteria None seen Ur Culture Indicated? Cult not indicated Vol Urine Centrifuged 10ml (spun) Chlamy pneumoniae PCR Adenovirus (PCR) B. pertussis DNA (PCR) B.parapertussis DNA PCR Coronavirus OC43 (PCR) Coronavirus HKU1 (PCR) Coronavirus 229E (PCR) SARS-CoV-2 (PCR) Coronavirus NL63 (PCR) Human Metapneumovir PCR Influenza Type A (PCR) Influenza Type B (PCR) M. pneumoniae (PCR) Parainfluenza 1 (PCR) Parainfluenza 2 (PCR) Parainfluenza 3 (PCR) Parainfluenza 4 (PCR) RSV (PCR) Entero/Rhino (PCR) Assessment & Plan Assessment & Plan narrative: Acute on chronic diastolic heart failure exacerbation. Admit the patient to medical telemetry as inpatient. Continue IV Lasix with strict I's and O's and daily weights. Monitor renal function and electrolytes. COPD exacerbation. Continue DuoNebs and Solu-Medrol. Possible underlying pneumonia. Continue azithromycin and ceftriaxone. Patient did meet sepsis criteria with elevated WBC and elevated lactic acid. Possible sepsis. Again likely due to pneumonia above. Treat with IV antibiotic and monitor hemodynamics. Elevated lactic acid. Lactic acid actually improved with IV Lasix. Monitor lactic for now. Insulin-dependent diabetes. Monitor glucose with subcu insulin. History of coronary disease. Tropes 0.09 and Trended down to 0.08. EKG Showed No Sign of Acute Ischemia. Resume Home Cardiac Medication. Hypertension. Monitor Blood Pressure and Resume Home Hypertensive Medication. Hyperlipidemia. Resume Home Statin. DVT Prophylaxis Heparin Subcu. CODE STATUS Full Code. Disposition Likely Home in 2 to 3 Days - As the provider of this telehealth evaluation, requested by the patient's evaluating physician, I attest that I introduced myself to the patient, provided my credentials and determined that telemedicine via a real-time, 2 way interactive audio and video platform is an appropriate and effective means of providing this service. - I reviewed the patient's chart and had a discussion with the member of the patient's treatment team. - The patient and I mutually agreed with continuation of this evaluation via telemedicine. The patient consented for the telemedicine evaluation. - This virtual encounter was taken place from [place] by Dr. Guido Adan. The patient was evaluated at [facility]. The encounter was approximately 35 minutes. The nurse was present during the entire time of the encounter and was able assists with the stethoscope to listen to the patients. Time-Based Coding :: [TOTAL MINUTES] spent with patient and on the chart (including review of chart, obtaining history, exam, reviewing outside data, placing orders, documenting exam and treatment plan, and counseling patient) on [DATE].
[2025-04-17] MEDS: methylPREDNISolone succ 125 MG/2 ML VIAL 60 MG IV ×3 (05:39→21:24)
[2025-04-17] MEDS: ASPIRIN EC 81 MG TABLET PO (09:03)
[2025-04-17] MEDS: PANTOPRAZOLE DR 40 MG TABLET PO (09:03)
[2025-04-17] MEDS: METOPROLOL IR 25 MG TABLET 12.5 MG PO ×2 (09:03→21:27)
[2025-04-17] MEDS: FUROSEMIDE 40 MG/4 ML VIAL IV ×2 (09:04→15:18)
[2025-04-17] MEDS: HEPARIN 5,000 UNIT/ML VIAL 5000 UNIT SUBCUT ×2 (09:04→21:26)
[2025-04-17] MEDS: NYSTATIN CREAM 30 GM 1 APPLIC TOP ×2 (09:05→21:28)
[2025-04-17] MEDS: RANOLAZINE 500 MG TAB.ER.12H PO ×2 (09:08→21:46)
[2025-04-17] MEDS: ESCITALOPRAM 10 MG TABLET 20 MG PO (09:08)
[2025-04-17] MEDS: INSULIN LISPRO 100 UNIT/ML 3ML VIAL 7 UNIT SUBCUT ×2 (09:08→11:31)
[2025-04-17] MEDS: ALBUTEROL/IPRATROPIUM 3 ML AMPUL INH ×3 (09:33→19:05)
[2025-04-17] MEDS: INSULIN LISPRO 100 UNIT/ML 3ML VIAL SUBCUT ×3 (11:31→21:29)
--- NOTE | 2025-04-17 12:20 | CM.DANOTE ---
Initial DCP Assessment Note. Review EMR and PT Interview. Met with patient at bedside to discuss discharge needs.PT is alert x 4 sitting up in chair. No acute distress. Independent. Lives with delayed adult son, Yuri. Drmike Beronica, lives a few blocks away and helps with medical visits and cooking.. Payor:?[facility]? PCP: ?MI Bass Summary & Plan:?89 y/o female arrived to ED VIA EMS c/o SOB. Admiited INPT. Dx. Sepsis. Plan: IV abx, steroids, and PT Eval. Likely, discharge home with HH. Discharge Planning/Care Management CM Discharge Assessment Start: 04/17/25 03:04 Freq: Status: Active Protocol: Document 04/17/25 12:17 SM (Rec: 04/17/25 12:20 SM [id number]) Discharge Planning Assessment Assigned Discharge Alice Villalobos RN CM [employer] Provider [place] Bass Insurance Medicare Advance Directives? Yes Advance Directives No on File History Provided By Patient,Family Member,Medical Record Household Members children Comment Delayed sonYuri, lives with her. Type of Public Transportation transporation used prior to admit Comment Paratransit Independent with ADL No 's Is patient alert and Yes oriented? Needs Assistance Bathing,Managing Medications,Home Chores / Shopping With Caregiver for Yes Another Community Services Oxygen Therapy,Physical Therapy,Home Health Aid used prior to admission: Comment Has [facility] Already Rented / Bath Bench,FWW / Walker,Oxygen,Bedside Commode Owned Comment CPAP , home O2 2-3 L at baseline Patient/Family Home with Home Health Preference Comment Patient lives with family, good support system. Discharge Plan Home with Home Health Transportation Family local and able to transport at d/c. Arrangement Referrals Initiated Home Health Additional Comment Resumption orders needed for [facility] Review Status In Process Please Provide Date 04/17/25 Initial DC Assessment Was Performed Next Review Type Continued Stay Review
--- NOTE | 2025-04-17 14:29 | PM.HP.1 ---
History of Present Illness History of Present Illness Date Patient Seen: 04/17/25 Chief complaint: SOB Narrative: Chief complaint: One week of progressive shortness for breath with enterovirus viral pneumonia and acute or chronic diastolic congestive heart failure History of present illness: 04/17: (per nighttime hospitalist) 89-year-old female with past medical history of chronic diastolic heart failure, coronary disease status post 6 stents, COPD with chronic 3 L of oxygen per nasal cannula, insulin-dependent diabetes, hyperlipidemia and hypertension presents with a cough and shortness of breath. Per the patient's report, over the last few days, the patient has had increasing shortness of breath despite using her DuoNebs at home. The patient also noted that her oxygenation was in the 80s despite using. 3 and increasing to 4 L of oxygen per nasal cannula. Otherwise the patient denies any fever, chills, nausea, vomiting, diarrhea, chest pain or syncope. In the emergency room, the patient was requiring 6 L of oxygen per nasal cannula. Patient otherwise hemodynamically stable. Labs shows a WBC of 15 bicarb of 33 glucose 200 lactate 3.2 troponin 0.09 and repeat 0.08. BNP 1060. VBG shows a pH of 7.45 pCO2 of 53 and bicarb of 38. Chest x-ray suggested pulmonary edema that is mild. The patient was given IV Lasix along with Rocephin azithromycin mycin Solu-Medrol and DuoNebs. Hospital course: 04/17: Lying comfortably in bed no acute respiratory distress at rest Review of systems: No fever or chills rigors No persistent chest pain diaphoresis or other anginal stigmata No nausea vomiting diarrhea constipation No new urinary symptoms No neurologic symptoms Physical exam: Obese chronically ill elderly female very pleasant HEENT unremarkable Heart and lung sounds distant Extremities 2+ edema Neuro nonfocal Assessment and plan: Acute chronic diastolic congestive heart failure with acute on chronic hypoxic respiratory failure Aggressive diuresis Daily intake and output Acute exacerbation of COPD: Corticosteroid diet bronchodilators Community-acquired pneumonia Ceftriaxone azithromycin Likely only due to enterovirus rhinovirus Chronic coronary artery disease No signs of complication Morbid obesity: Complicates management DVT prophylaxis: Subcutaneous heparin Code status: Full code blue Disposition: Inpatient treatment anticipate 2-3 days of hospitalization Time based billin minutes were evaluated and involved in this patient with [id number] evaluation physical examination discussion with patient and coffee sampler review of past medical history objective laboratory and object and imaging findings including direct visualization imaging and discussion with care team [facility] Medical History Chronic respiratory failure with hypoxia Skin cancer NSTEMI (non-ST elevated myocardial infarction) Diastolic heart failure Cardiac arrest Chest pain Hypertension Hyperlipidemia Coronary artery disease Left hamstring muscle strain UTI (urinary tract infection) Surgical History H/O right heart catheterization History of breast implant removal History of breast surgery History of appendectomy History of cholecystectomy History of total abdominal hysterectomy History of coronary artery stent placement Family History Father Hypertension Diabetes mellitus Mother Hypertension [place] (myocardial infarction) Sister [place] (myocardial infarction) S/P CABG x 4 Social History household members: children Smoking Status: Never smoker alcohol intake: never Meds Home Medications and Allergies Home Medications ?Medication ?Instructions ?Recorded ?Confirmed ?Type aspirin 81 mg tablet,delayed 81 mg PO DAILY ##0 05/14/17 04/17/25 History release nitroglycerin 0.4 mg sublingual 1 tab sublingual [id number] PRN Chest 11/18/18 04/17/25 History tablet Pain rosuvastatin 40 mg tablet 40 mg PO QPM 11/18/18 04/17/25 History escitalopram oxalate 20 mg tablet 20 mg PO DAILY 03/06/21 04/17/25 History pantoprazole 40 mg tablet,delayed 40 mg PO DAILY 03/06/21 04/17/25 History release acetaminophen 300 mg-codeine 30 mg 1 tab PO BID PRN pain 07/03/24 04/17/25 History tablet ipratropium 0.5 mg-albuterol 3 mg 3 ml inhalation DIRECTED PRN 07/03/24 04/17/25 History (2.5 mg base)/3 mL nebulization sob, wheezing soln ranolazine 500 mg tablet,extended 500 mg PO BID 07/03/24 04/17/25 History release,12 hr guaifenesin 600 mg tablet, 600 mg PO BID #60 tabs 01/23/25 04/17/25 Rx extended release 12 hr (Mucus Relief ER) insulin glargine 100 unit/mL (3 20 unit (0.2 mL) SUBCUT BEDTIME 01/23/25 04/17/25 Rx mL) subcutaneous pen (Lantus #30 mL Solostar U-100 Insulin) insulin lispro 100 unit/mL 0 unit (0 mL) SUBCUT ACHS #30 mL 01/23/25 02/03/25 Rx subcutaneous solution (Admelog U-100 Insulin lispro) insulin lispro 100 unit/mL 7 unit (0.07 mL) SUBCUT AC #30 mL 01/23/25 04/17/25 Rx subcutaneous solution (Admelog U-100 Insulin lispro) miscellaneous medical supply #100 ea 01/23/25 02/03/25 Rx nystatin 100,000 unit/gram topical 1 applic topical BID #120 grams 01/23/25 04/17/25 Rx ointment nystatin 100,000 unit/mL oral 100,000 unit PO QID #500 mL 01/23/25 04/17/25 Rx suspension lancets 28 gauge (FreeStyle 02/03/25 02/03/25 History Lancets) metoprolol tartrate 25 mg tablet 12.5 mg (1/2 x 25 mg) PO BID #30 02/13/25 04/17/25 Rx tabs potassium chloride 20 mEq 20 meq PO BID #60 tabs 02/13/25 04/17/25 Rx tablet,extended release prednisone 10 mg tablet 10 mg PO DAILY #30 tabs 02/13/25 04/17/25 Rx torsemide 10 mg tablet 10 mg PO BID #60 tabs 02/13/25 04/17/25 Rx Allergies Allergy/AdvReac Type Severity Reaction Status Date / Time Iodinated Contrast Media Allergy Severe Unconscious Verified 03/17/25 19:34 (IODINATED CONTRAST- ORAL AND IV DYE) morphine (MORPHINE) Allergy Severe Rash Verified 03/17/25 19:34 telmisartan (TELMISARTAN) Allergy Severe Rash Verified 03/17/25 19:34 Exam Vital Signs (past 8 hours): - 04/17/25 08:19 04/17/25 09:34 04/17/25 09:47 Temperature 97.2 F L Pulse Rate 93 H 95 H Respiratory Rate 16 20 Blood Pressure 150/92 H Pulse Oximetry 96 98 Oxygen Delivery Method Nasal Cannula Nasal Cannula Oxygen Flow Rate 3 04/17/25 11:15 04/17/25 13:22 Temperature 98.1 F Pulse Rate 96 H 98 H Respiratory Rate 18 20 Blood Pressure 153/53 H Pulse Oximetry 96 97 Oxygen Delivery Method Nasal Cannula Oxygen Flow Rate 3 Fraction of Inspired Oxygen 28 SaO2/FiO2 Ratio 346 Oxygen Delivery Method Nasal Cannula Oxygen Flow Rate 3 Objective Labs 04/16/25 21:00 04/16/25 21:00 Labs: Laboratory Results - last 24 hr 04/16/25 04/16/25 04/16/25 21:00 21:09 22:12 WBC 15.7 H RBC 4.88 Hgb 11.2 L Hct 36.1 MCV 73.9 L MCH 23.0 L MCHC 31.1 RDW 22.1 H Plt Count 232 Neut % (Auto) 60.9 Lymph % (Auto) 31.0 [place]rent[place] % (Auto) 7.0 Eos % (Auto) 0.3 L Baso % (Auto) 0.8 Neut # (Auto) 9600 H Lymph # (Auto) 4900 H Prentiss # (Auto) 1100 H Eos # (Auto) 0 Baso # (Auto) 100 RBC Morphology See below Microcytosis 1+ H VBG pH 7.45 H VBG pCO2 53.7 H VBG pO2 36 VBG HCO3 38 H VBG Total CO2 36 H VBG O2 Saturation 69 L VBG Base Excess 11.5 H FiO2 % 28.0 % Sodium 136 L Potassium 3.7 Chloride 95 L Carbon Dioxide 33 H BUN 28 H Creatinine 1.01 Estimated GFR 54 L BUN/Creatinine Ratio 27.7 H Glucose 200 H POC Whole Bld Glucose Lactate 3.2 H Calcium 9.0 Magnesium 1.9 Total Bilirubin 0.4 AST 28 ALT 14 Alkaline Phosphatase 50 Troponin I 0.097 H NT-Pro-B Natriuret Pep 1060 H Total Protein 6.8 Albumin 4.1 Globulin 2.7 Albumin/Globulin Ratio 1.5 Lipase 127 Urine RBC Urine WBC Ur Squamous Epith Cells Urine Bacteria Ur Culture Indicated? Vol Urine Centrifuged Chlamy pneumoniae PCR Not detected Adenovirus (PCR) Not detected B. pertussis DNA (PCR) Not detected B.parapertussis DNA PCR Not detected Coronavirus OC43 (PCR) Not detected Coronavirus HKU1 (PCR) Not detected Coronavirus 229E (PCR) Not detected SARS-CoV-2 (PCR) Not detected Coronavirus NL63 (PCR) Not detected Human Metapneumovir PCR Not detected Influenza Type A (PCR) Not detected Influenza Type B (PCR) Not detected M. pneumoniae (PCR) Not detected Parainfluenza 1 (PCR) Not detected Parainfluenza 2 (PCR) Not detected Parainfluenza 3 (PCR) Not detected Parainfluenza 4 (PCR) Not detected RSV (PCR) Not detected Entero/Rhino (PCR) Detected H 04/16/25 04/16/25 04/17/25 22:16 23:20 06:11 WBC RBC Hgb Hct MCV MCH MCHC RDW Plt Count Neut % (Auto) Lymph % (Auto) [place] % (Auto) Eos % (Auto) Baso % (Auto) Neut # (Auto) Lymph # (Auto) [place] # (Auto) Eos # (Auto) Baso # (Auto) RBC Morphology Microcytosis VBG pH VBG pCO2 VBG pO2 VBG HCO3 VBG Total CO2 VBG O2 Saturation VBG Base Excess FiO2 % Sodium Potassium Chloride Carbon Dioxide BUN Creatinine Estimated GFR BUN/Creatinine Ratio Glucose POC Whole Bld Glucose 262 H Lactate 2.1 Calcium Magnesium Total Bilirubin AST ALT Alkaline Phosphatase Troponin I 0.086 H NT-Pro-B Natriuret Pep Total Protein Albumin Globulin Albumin/Globulin Ratio Lipase Urine RBC 0-1/hpf Urine WBC None seen Ur Squamous Epith Cells 0-1 /hpf Urine Bacteria None seen Ur Culture Indicated? Cult not indicated Vol Urine Centrifuged 10ml (spun) Chlamy pneumoniae PCR Adenovirus (PCR) B. pertussis DNA (PCR) B.parapertussis DNA PCR Coronavirus OC43 (PCR) Coronavirus HKU1 (PCR) Coronavirus 229E (PCR) SARS-CoV-2 (PCR) Coronavirus NL63 (PCR) Human Metapneumovir PCR Influenza Type A (PCR) Influenza Type B (PCR) M. pneumoniae (PCR) Parainfluenza 1 (PCR) Parainfluenza 2 (PCR) Parainfluenza 3 (PCR) Parainfluenza 4 (PCR) RSV (PCR) Entero/Rhino (PCR) 04/17/25 04/17/25 08:01 10:56 WBC RBC Hgb Hct MCV MCH MCHC RDW Plt Count Neut % (Auto) Lymph % (Auto) [place] % (Auto) Eos % (Auto) Baso % (Auto) Neut # (Auto) Lymph # (Auto) [place] # (Auto) Eos # (Auto) Baso # (Auto) RBC Morphology Microcytosis VBG pH VBG pCO2 VBG pO2 VBG HCO3 VBG Total CO2 VBG O2 Saturation VBG Base Excess FiO2 % Sodium Potassium Chloride Carbon Dioxide BUN Creatinine Estimated GFR BUN/Creatinine Ratio Glucose POC Whole Bld Glucose 248 H 320 H Lactate Calcium Magnesium Total Bilirubin AST ALT Alkaline Phosphatase Troponin I NT-Pro-B Natriuret Pep Total Protein Albumin Globulin Albumin/Globulin Ratio Lipase Urine RBC Urine WBC Ur Squamous Epith Cells Urine Bacteria Ur Culture Indicated? Vol Urine Centrifuged Chlamy pneumoniae PCR Adenovirus (PCR) B. pertussis DNA (PCR) B.parapertussis DNA PCR Coronavirus OC43 (PCR) Coronavirus HKU1 (PCR) Coronavirus 229E (PCR) SARS-CoV-2 (PCR) Coronavirus NL63 (PCR) Human Metapneumovir PCR Influenza Type A (PCR) Influenza Type B (PCR) M. pneumoniae (PCR) Parainfluenza 1 (PCR) Parainfluenza 2 (PCR) Parainfluenza 3 (PCR) Parainfluenza 4 (PCR) RSV (PCR) Entero/Rhino (PCR) Assessment & Plan Time-Based Coding :: [TOTAL MINUTES] spent with patient and on the chart (including review of chart, obtaining history, exam, reviewing outside data, placing orders, documenting exam and treatment plan, and counseling patient) on [DATE].
[2025-04-17] MEDS: CODEINE/guaiFENesin LIQUID 5 ML UDC 10 ML PO ×2 (15:17→21:46)
[2025-04-17] MEDS: BENZONATATE 100 MG CAPSULE PO (15:18)
[2025-04-17] MEDS: ACETAMINOPHEN 325 MG TABLET 650 MG PO (15:18)
[2025-04-17] MEDS: INSULIN GLARGINE 100 UNIT/ML 3ML PEN 30 UNIT SUBCUT (16:39)
[2025-04-17] MEDS: INSULIN LISPRO 100 UNIT/ML 3ML VIAL 10 UNIT SUBCUT (16:40)
[2025-04-17] MEDS: AZITHROMYCIN 500 MG in DEXTROSE 5% IN WATER 250 ML 250 MG IV (21:23)
[2025-04-17] MEDS: ATORVASTATIN 20 MG TABLET 80 MG PO (21:28)
[2025-04-18] VITALS (7 sets, daily range): BP systolic 110–179; BP diastolic 58–73; PULSE 80–95; RESP 17–22; TEMP 36.1–36.7; O2SAT 96–99
[2025-04-18] MEDS: FUROSEMIDE 40 MG/4 ML VIAL IV ×3 (00:42→16:39)
[2025-04-18] MEDS: methylPREDNISolone succ 125 MG/2 ML VIAL 60 MG IV ×2 (05:02→12:36)
[2025-04-18 07:16] LABS: Add Manual Diff / Slide Review NO; Hematocrit 33.6 % (36-46); Hemoglobin 10.6 g/dL (12.0-16.0); Lymphocytes Absolute Auto 1100 /uL (1100-4500); Mean Corpuscular HGB Conc 31.4 % (30-36); Mean Corpuscular Hemoglobin 23.0 PG (26-34); Mean Corpuscular Volume 73.2 fL (80-100); Platelet Count 233 X10^3/uL (150-400)
[2025-04-18 07:23] LABS: Blood Urea Nitrogen 30 mg/dL (7-17); Calcium 9.1 mg/dL (8.4-10.2); Carbon Dioxide 33 mmol/L (22-32); Chloride 95 mmol/L (98-107); Estimated Glomerular Filt Rate > 60 mL/min (>60); Glucose 225 mg/dL (70-99); HEMOLYSIS 24 (0-50); Potassium 3.8 mmol/L (3.4-5.1); Sodium 135 mmol/L (137-145)
[2025-04-18] MEDS: CODEINE/guaiFENesin LIQUID 5 ML UDC 10 ML PO ×2 (07:55→14:35)
[2025-04-18] MEDS: INSULIN LISPRO 100 UNIT/ML 3ML VIAL 7 UNIT SUBCUT ×2 (07:57→11:33)
[2025-04-18] MEDS: INSULIN LISPRO 100 UNIT/ML 3ML VIAL SUBCUT ×4 (07:57→20:32)
[2025-04-18] MEDS: RANOLAZINE 500 MG TAB.ER.12H PO ×2 (08:29→20:28)
[2025-04-18] MEDS: HEPARIN 5,000 UNIT/ML VIAL 5000 UNIT SUBCUT ×2 (08:29→20:30)
[2025-04-18] MEDS: METOPROLOL IR 25 MG TABLET 12.5 MG PO ×2 (08:30→20:28)
[2025-04-18] MEDS: PANTOPRAZOLE DR 40 MG TABLET PO (08:30)
[2025-04-18] MEDS: ESCITALOPRAM 10 MG TABLET 20 MG PO (08:31)
[2025-04-18] MEDS: NYSTATIN CREAM 30 GM 1 APPLIC TOP (08:33)
[2025-04-18] MEDS: ASPIRIN EC 81 MG TABLET PO (08:36)
[2025-04-18] MEDS: ALBUTEROL/IPRATROPIUM 3 ML AMPUL INH ×2 (09:46→15:17)
[2025-04-18] MEDS: BENZONATATE 100 MG CAPSULE PO (11:31)
[2025-04-18] MEDS: BENZOCAINE/MENTHOL 1 LOZ PKT 1 EACH PO ×2 (12:36→20:48)
--- NOTE | 2025-04-18 13:21 | DIET.CONS ---
Dietary Consultation Note Admission Date: 04/17/2025 01:22 Assessment: 89 y F admitted for CHF, screened for hx of DM2. Met with pt and family member at bedside. Have logs of pt's BG and insulin over last 2 weeks. Also have CGM and request print out of reports if able to give to their PCP. Took CGM and downloaded reports. CGM returned Outside of hospital have been 28 units lantus at night, which has brought FBG to range 80-130. BG slowly increasing throughout the day until they are 200s, 300s before bed. Titrating up on insulin given before dinner from 7 to 10 units. Would like to continue seeing OP DM educator, but difficulty making appts in person. Open to tele-health but having difficult time accessing portal. Ht: 157.48 cm Wt: 102.512 kg BMI: 41.3 Last BM: 04/18/25 (04/18/25 10:36) MNA: Cirilo Score: 18 Diet: 04/17/25 Lunch caregiver tray [Courtesy Tray (Peds, comfort care)] Diet Modifications: 04/17/25 Dinner Carbohydrate Consistent Diet Diet Modifications: heart healthy Carbohydrate level: Medium (3 CHO) Reflex DM orders: No Food Texture: Level 7 - Regular Liquid Consistency: Level 0 - Thin Nutrition Percent Meal Consumed 75% 04/18/25 10:36 Percent Meal Consumed 75% 04/17/25 18:00 Percent Meal Consumed 50% 04/17/25 09:05 Labs: RBC 4.60 X10^6/uL (4.0-5.2) 04/18/25 06:55 Hgb 10.6 g/dL (12.0-16.0) L 04/18/25 06:55 Hct 33.6 % (36-46) L 04/18/25 06:55 Creatinine 0.92 mg/dL (0.52-1.04) 04/18/25 06:55 Lactate 2.1 mmol/L (0.7-2.1) 04/16/25 23:20 NT-Pro-B Natriuret Pep 1060 pg/mL (<450) H 04/16/25 21:00 Nutrition Diagnosis: Altered nutrition related lab values r/t endocrine dysfunction and medication aeb BG>200 Interventions: -Gave portal support # and scheduling # for OP DM appt, telehealth EER: 30-45 g CHO Monitoring/Evaluations: BG, lantus increased to 35 units today by pharmacy Electronically Signed by: Dori Barrera 04/18/25 13:21 [address] [id number]
[2025-04-18] MEDS: INSULIN LISPRO 100 UNIT/ML 3ML VIAL 10 UNIT SUBCUT (16:40)
--- NOTE | 2025-04-18 16:42 | OT.IP.EVAL ---
Current Diagnoses Sepsis, unspecified organism (04/17/25) Past Medical History (Last Reviewed 02/03/25 @ 18:49 by William Velázquez MD) Cardiac arrest Chest pain Chronic respiratory failure with hypoxia Coronary artery disease Diastolic heart failure Hyperlipidemia Hypertension Left hamstring muscle strain NSTEMI (non-ST elevated myocardial infarction) Skin cancer UTI (urinary tract infection) Surgical History (Last Reviewed 02/03/25 @ 18:49 by William Velázquez MD) H/O right heart catheterization History of appendectomy History of breast implant removal History of breast surgery History of cholecystectomy History of coronary artery stent placement History of total abdominal hysterectomy Occupational Therapy Inpatient Evaluation/Re-Eval M1 OT IP Prior Functional Status Start: 04/18/25 17:14 Freq: Status: Active Protocol: Document 04/18/25 17:14 [facility] (Rec: 04/18/25 17:40 [facility] Desktop) Medical Review Prior Functional Status Communication I Mobility and Gait Pt uses the 4ww. Activities of Daily Pt gets assist for LB dressing, assist for sponge Living and IADL's bathing, and for IADL needs. Prior Functional Pt's daughter and daughter in law alternate to assist Level (Other details pt during the day and live close by. Pt lives with her ) delayed adult son per chart. Social History Household Members children Living Arrangements Mobile home Number of Stairs To Pt has a ramp to enter. Enter/Railing? Home Equipment Four Wheel Walker,Power Wheelchair/Scooter,Bedside Commode,Lift Recliner,Grab Bars Near Toilet,Grab Bars In Shower Additional Social Pt's daughter states the home health OT suggested pt History Comment look into Hospice but pt not open to it at the time. M2 OT-IP Current Condition Start: 04/18/25 17:14 Freq: Status: Active Protocol: Document 04/18/25 17:14 [facility] (Rec: 04/18/25 17:40 [facility] Desktop) Occupational Therapy Current Condition Current Condition Evaluation Date 04/18/25 Treatment Diagnosis Acute Exacerbation if COPD Diagnosis Onset Date 04/17/25 M3 OT- IP Subjective and Pain Start: 04/18/25 17:14 Freq: Status: Active Protocol: Document 04/18/25 17:14 [facility] (Rec: 04/18/25 17:40 [facility] Desktop) OT- Subjective Occupational Therapy Visit Type Type Initial Evaluation Visit Start Time 16:10 Visit Stop Time 16:42 Occupational Therapy Visit Comments Patient Comments Pt agreed to get up to use the BSC. Patient/Caregiver TO go home. Goals OT Pain Assessment Pain When Pain Assessed At Rest Pain Present Pain Present Pain Reported Location Bilateral Leg Pain Behaviors Facial Grimacing M4 OT- IP ADL's Start: 04/18/25 17:14 Freq: Status: Active Protocol: Document 04/18/25 17:14 [facility] (Rec: 04/18/25 17:40 [facility] Desktop) OT [id number] Comments OT Self-Feeding Not at meal time. Comments OT ADL-Grooming Comments OT Grooming Comments Not observed. OT ADL-Oral Care Comments Oral Care Comments Not performed. OT ADL-Dressing General Eval Lower Body Dressing Maximum Assistance Ability Areas Needing Underpants/Brief,Socks Assistance OT ADL-Toileting General Evaluation Toileting Ability Maximum Assistance,Total Assistance Areas Needing Manage Clothing,Perform Perineal Hygiene Assistance Comments OT Toileting Pt needing assist for hygiene and brief management Comments needs. Pt having use of Purewick in bed. M5 OT- IP IADL's Start: 04/18/25 17:14 Freq: Status: Active Protocol: Document 04/18/25 17:14 [facility] (Rec: 04/18/25 17:40 [facility] Desktop) OT-Instrumental Activities of Daily Living Home Safety Awareness Awareness of Need Good Awareness for Assistance at Home Meal Preparation Meal Preparation Caregiver Provides Assist Operation Specialist Operation Specialist Caregiver Provides Assist M6 OT- IP Functional Cognition Start: 04/18/25 17:14 Freq: Status: Active Protocol: Document 04/18/25 17:14 [facility] (Rec: 04/18/25 17:40 [facility] Desktop) Cognitive Factors Limiting Selfcare Function Cognitive Ability Level of Alertness Alert Patient Orientation Name,Age,Birthday,Place,Situation Attention Span Capable of Focused Attention,Capable of Sustained Ability Attention Ability to Follow Able to Follow One Step Commands Commands Cognitive Comments Cognitive Assessment Pt able to follow commands for ADL and mobility needs. Comments OT- Vision and Hearing OT- Hearing Assessment OT- Hearing Hearing Impaired Assessment OT- Vision Assessment Visual Acuity Glasses For Reading Visual Attentiveness WFL Occular Pursuits WFL M7 OT- IP Mobility and Balance Start: 04/18/25 17:14 Freq: Status: Active Protocol: Document 04/18/25 17:14 [facility] (Rec: 04/18/25 17:40 [facility] Desktop) OT- Bed Mobility Assessment Supine to Sit Supine to Sit Assist Moderate Assistance,Head of Bed Elevated Sit to Supine Sit to Supine Assist Maximum Assistance OT-Transfer Assessment Sit to and From Stand Sit to and from Minimal Assistance Stand Transfers Transfer Ability Contact Guard Assistance Technique Transfer Destination Bed,Bedside Commode Transfer Technique Stand Step Pivot Devices Transfer Assistive Gait Belt,Front Wheeled Walker Devices Comments Mobility Comments Pt needing MODA to MAX A for bed mobility needs, assist for her trunk and to move her legs. TIFFANY to stand to the FWW and CGA to get to and from the BSC. Pt on 3L of O2 and at 93-95%. OT- Balance Assessment Sitting Balance and Reactions Static Sitting Good Balance Ability Dynamic Sitting Fair Balance Ability Standing Balance and Reactions Static Standing Fair Balance Ability Dynamic Standing Fair Balance Ability M8 OT- IP Objective Assessments Start: 04/18/25 17:14 Freq: Status: Active Protocol: Document 04/18/25 17:14 [facility] (Rec: 04/18/25 17:40 [facility] Desktop) OT Gross Range of Motion Upper Extremity Range of Motion Assessment Bilaterally Impaired ROM Impairments RUE 0-90, LUE 0-80 OT Strength Upper Extremity Strength Assessment Bilaterally Impaired M9 OT- IP Assessment and Plan Start: 04/18/25 17:14 Freq: Status: Active Protocol: Document 04/18/25 17:14 [facility] (Rec: 04/18/25 17:40 [facility] Desktop) OT Summary Assessment and Plan Potential Rehabilitation Fair Potential Analytic Complexity Moderate at Evaluation Summary OT Impairments Pain,Strength,Balance,Functional Mobility,Dressing, Toileting,Bathing,Toilet Transfers,Activity Tolerance Progress Towards Slow Progress due to Pain,Slow Progress due to Medical Goals Issues,Slow Progress due to Activity Tolerance Assessment Summary Pt MOD complexity and main barriers are decreased activity tolerance and pain. Pt has very supportive family to assist her at home. Pt will benefit to resume home health after able to go home when medically stable. Pt's daughter and daughter in law looking into applying to become pt's Eulal[employer] caregivers. Goals Dressing Goal Moderate Assistance Toileting Goal Standby Assistance Bathing Goal Moderate Assistance Toilet Transfer Goal Independent Days to Meet Goals 7 Frequency of Treatment Other frequency 5x/week Treatment Plan OT Treatment Plan ADL Training,Functional Mobility,Patient/Family Education,Discharge Planning Discharge Recommendations OT Discharge Home with 05/12 Assist Available,Home Health Recommendations Transportation Needs Private Vehicle at Discharge
[2025-04-18] MEDS: methylPREDNISolone succ 40 MG/ML VIAL 20 MG IV (17:16)
--- NOTE | 2025-04-18 18:44 | P.PN_ITS ---
Subjective Subjective Date Patient Seen: 04/18/25 Interval history: Chief complaint: One week of progressive shortness for breath with enterovirus viral pneumonia and acute or chronic diastolic congestive heart failure History of present illness: 04/17: (per nighttime hospitalist) 89-year-old female with past medical history of chronic diastolic heart failure, coronary disease status post 6 stents, COPD with chronic 3 L of oxygen per nasal cannula, insulin-dependent diabetes, hyperlipidemia and hypertension presents with a cough and shortness of breath. Per the patient's report, over the last few days, the patient has had increasing shortness of breath despite using her DuoNebs at home. The patient also noted that her oxygenation was in the 80s despite using. 3 and increasing to 4 L of oxygen per nasal cannula. Otherwise the patient denies any fever, chills, nausea, vomiting, diarrhea, chest pain or syncope. In the emergency room, the patient was requiring 6 L of oxygen per nasal cannula. Patient otherwise hemodynamically stable. Labs shows a WBC of 15 bicarb of 33 glucose 200 lactate 3.2 troponin 0.09 and repeat 0.08. BNP 1060. VBG shows a pH of 7.45 pCO2 of 53 and bicarb of 38. Chest x-ray suggested pulmonary edema that is mild. The patient was given IV Lasix along with Rocephin azithromycin mycin Solu-Medrol and DuoNebs. Hospital course: 04/17: Lying comfortably in bed no acute respiratory distress at rest 04/18: Able to get up walk across room to the commode with assistance body aches all over swelling in her legs some dyspnea with activity Review of systems: No fever or chills rigors No persistent chest pain diaphoresis or other anginal stigmata No nausea vomiting diarrhea constipation No new urinary symptoms No neurologic symptoms Physical exam: Obese chronically ill elderly female very pleasant HEENT unremarkable Heart and lung sounds distant Extremities 2+ edema Neuro nonfocal Assessment and plan: Acute chronic diastolic congestive heart failure with acute on chronic hypoxic respiratory failure * Continue Aggressive diuresis * Daily intake and output Acute exacerbation of COPD: * Corticosteroid diet bronchodilators * Reduced corticosteroid today Community-acquired pneumonia * Ceftriaxone azithromycin * Likely only due to enterovirus rhinovirus Chronic coronary artery disease * No signs of complication Morbid obesity: * Complicates management DVT prophylaxis: * Subcutaneous heparin Code status: * Full code blue Disposition: * Inpatient treatment anticipate 2-3 days of hospitalization Time based billing: * 35 minutes were evaluated and involved in this patient with [id number] evaluation physical examination discussion with patient and associate buyer review of past medical history objective laboratory and object and imaging findings including direct visualization imaging and discussion with care team Exam Vital Signs (past 8 hours): - 04/18/25 15:17 04/18/25 16:53 Temperature 97.3 F L Pulse Rate 80 95 H Respiratory Rate 20 22 Blood Pressure 122/59 L Pulse Oximetry 98 99 Oxygen Delivery Method Nasal Cannula Oxygen Flow Rate 2 3 Fraction of Inspired Oxygen 28 SaO2/FiO2 Ratio 346 Oxygen Delivery Method Nasal Cannula Oxygen Flow Rate 3 Objective Labs 04/18/25 06:55 04/18/25 06:55 Labs: Laboratory Results - last 24 hr 04/17/25 04/18/25 04/18/25 21:08 06:55 07:30 WBC 13.6 H RBC 4.60 Hgb 10.6 L Hct 33.6 L MCV 73.2 L MCH 23.0 L MCHC 31.4 RDW 21.2 H Plt Count 233 Neut % (Auto) 88.8 H D Lymph % (Auto) 8.3 L D [place] % (Auto) 2.8 L Eos % (Auto) 0.0 L Baso % (Auto) 0.1 Neut # (Auto) 23012 H Lymph # (Auto) 1100 [place] # (Auto) 400 Eos # (Auto) 0 Baso # (Auto) 0 Sodium 135 L Potassium 3.8 Chloride 95 L Carbon Dioxide 33 H BUN 30 H Creatinine 0.92 Estimated GFR > 60 BUN/Creatinine Ratio 32.6 H Glucose 225 H POC Whole Bld Glucose 293 H 226 H Calcium 9.1 04/18/25 04/18/25 11:19 16:43 WBC RBC Hgb Hct MCV MCH MCHC RDW Plt Count Neut % (Auto) Lymph % (Auto) [place] % (Auto) Eos % (Auto) Baso % (Auto) Neut # (Auto) Lymph # (Auto) [place] # (Auto) Eos # (Auto) Baso # (Auto) Sodium Potassium Chloride Carbon Dioxide BUN Creatinine Estimated GFR BUN/Creatinine Ratio Glucose POC Whole Bld Glucose 252 H 275 H Calcium PFSH Medical History Chronic respiratory failure with hypoxia Skin cancer NSTEMI (non-ST elevated myocardial infarction) Diastolic heart failure Cardiac arrest Chest pain Hypertension Hyperlipidemia Coronary artery disease Left hamstring muscle strain UTI (urinary tract infection) Surgical History H/O right heart catheterization History of breast implant removal History of breast surgery History of appendectomy History of cholecystectomy History of total abdominal hysterectomy History of coronary artery stent placement Family History Father Hypertension Diabetes mellitus Mother Hypertension [place] (myocardial infarction) Sister AR (myocardial infarction) S/P CABG x 4 Social History household members: children Smoking Status: Never smoker alcohol intake: never Assessment & Plan Time-Based Coding :: [TOTAL MINUTES] spent with patient and on the chart (including review of chart, obtaining history, exam, reviewing outside data, placing orders, documenting exam and treatment plan, and counseling patient) on [DATE].
[2025-04-18] MEDS: ATORVASTATIN 20 MG TABLET 80 MG PO (20:27)
[2025-04-18] MEDS: AZITHROMYCIN 500 MG in DEXTROSE 5% IN WATER 250 ML 250 MG IV (20:31)
[2025-04-18] MEDS: INSULIN GLARGINE 100 UNIT/ML 3ML PEN 35 UNIT SUBCUT (20:35)
[2025-04-19] VITALS (7 sets, daily range): BP systolic 155–197; BP diastolic 49–80; PULSE 77–84; RESP 14–20; TEMP 35.9–36.9; O2SAT 97–99
[2025-04-19] MEDS: FUROSEMIDE 40 MG/4 ML VIAL IV ×3 (01:05→16:31)
[2025-04-19] MEDS: CODEINE/guaiFENesin LIQUID 5 ML UDC 10 ML PO ×3 (01:49→15:49)
[2025-04-19] MEDS: methylPREDNISolone succ 40 MG/ML VIAL 20 MG IV ×2 (06:33→16:28)
--- NOTE | 2025-04-19 07:52 | PM.PN.1 ---
Subjective Subjective Interval history: Course: 04/17: Lying comfortably in bed no acute respiratory distress at rest 04/18: Able to get up walk across room to the commode with assistance body aches all over swelling in her legs some dyspnea with activity S: Still short of breath and coughing with a left rib pain. Comfortable on oxygen. O: NAD, alert and oriented. Fluent speech. On O2. Lungs are diminished, normal rate and effort. Heart is regular, no murmur gallop or rub. Abdomen is soft, non distended. Extremities are free of edema. A/P: 1. Acute chronic diastolic congestive heart failure with acute on chronic hypoxic respiratory failure. Active. 2. Acute exacerbation of COPD, active. 3. Community-acquired pneumonia, active. 4. Chronic coronary artery disease, stable. 5. Morbid obesity, stable. PLAN: -Continue diuresis, Lasix IV Q*. -PT -Isolation. -Bronchodilators. -Abx (Ceftriaxone) -Steroids. -Increase Robitussin. Exam Vital Signs (past 8 hours): - 04/19/25 01:00 Temperature 96.6 F L Pulse Rate 78 Respiratory Rate 18 Blood Pressure 174/59 H Pulse Oximetry 98 Oxygen Flow Rate 0 Fraction of Inspired Oxygen 28 SaO2/FiO2 Ratio 346 Oxygen Delivery Method Nasal Cannula Oxygen Flow Rate 0 Objective Labs 04/18/25 06:55 04/18/25 06:55 Labs: Laboratory Results - last 24 hr 04/18/25 04/18/25 04/18/25 11:19 16:43 19:37 POC Whole Bld Glucose 252 H 275 H 366 H PFS Medical History Chronic respiratory failure with hypoxia Skin cancer NSTEMI (non-ST elevated myocardial infarction) Diastolic heart failure Cardiac arrest Chest pain Hypertension Hyperlipidemia Coronary artery disease Left hamstring muscle strain UTI (urinary tract infection) Surgical History H/O right heart catheterization History of breast implant removal History of breast surgery History of appendectomy History of cholecystectomy History of total abdominal hysterectomy History of coronary artery stent placement Family History Father Hypertension Diabetes mellitus Mother Hypertension [place] (myocardial infarction) Sister GA (myocardial infarction) S/P CABG x 4 Social History household members: children Smoking Status: Never smoker alcohol intake: never Assessment & Plan Time-Based Coding :: [TOTAL MINUTES] spent with patient and on the chart (including review of chart, obtaining history, exam, reviewing outside data, placing orders, documenting exam and treatment plan, and counseling patient) on [DATE].
[2025-04-19] MEDS: ALBUTEROL/IPRATROPIUM 3 ML AMPUL INH ×2 (08:05→19:51)
[2025-04-19] MEDS: INSULIN LISPRO 100 UNIT/ML 3ML VIAL SUBCUT ×4 (09:04→20:55)
[2025-04-19] MEDS: INSULIN LISPRO 100 UNIT/ML 3ML VIAL 7 UNIT SUBCUT (09:04)
[2025-04-19] MEDS: METOPROLOL IR 25 MG TABLET 12.5 MG PO ×2 (09:15→20:59)
[2025-04-19] MEDS: PANTOPRAZOLE DR 40 MG TABLET PO (09:15)
[2025-04-19] MEDS: HEPARIN 5,000 UNIT/ML VIAL 5000 UNIT SUBCUT ×2 (09:16→20:58)
[2025-04-19] MEDS: ASPIRIN EC 81 MG TABLET PO (09:16)
[2025-04-19] MEDS: SODIUM CHLORIDE 0.9% FLUSH 10 ML IV ×2 (09:17→20:59)
[2025-04-19] MEDS: NYSTATIN CREAM 30 GM 1 APPLIC TOP (09:17)
[2025-04-19] MEDS: RANOLAZINE 500 MG TAB.ER.12H PO ×2 (09:28→20:58)
[2025-04-19] MEDS: ESCITALOPRAM 10 MG TABLET 20 MG PO (09:28)
[2025-04-19] MEDS: INSULIN LISPRO 100 UNIT/ML 3ML VIAL 10 UNIT SUBCUT (12:13)
--- NOTE | 2025-04-19 12:49 | CM.DPC ---
DCP Home with HH Cont: Per MD, pt making slow progress and not yet stable for discharge home yet today. PT ordered to work with pt today to determine d/c needs. OT eval yesterday, pt with lots of family support and mainly limited by pain and feel pt would do well at home with family assist and HH. PT ordered and pending. Pt recently discharged the hospital home with [facility]. SW confirmed that pt still open with [facility] services and only need Resumption of Care orders and d/c summary at discharge. SW met bedside with pt and her Dtr Beronica and explained role and remembered them from prior admissions recently. They confirm they do not want SNF or feel it is needed at d/c and preference remains home via family vehicle and to Resume [facility]. DONNELL Erickson
--- NOTE | 2025-04-19 13:05 | PT.IIE ---
Current Diagnoses Sepsis, unspecified organism (04/17/25) Surgical History (Last Reviewed 02/03/25 @ 18:49 by William Velázquez MD) H/O right heart catheterization History of appendectomy History of breast implant removal History of breast surgery History of cholecystectomy History of coronary artery stent placement History of total abdominal hysterectomy Medical History (Last Reviewed 02/03/25 @ 18:49 by William Velázquez MD) Cardiac arrest Chest pain Chronic respiratory failure with hypoxia Coronary artery disease Diastolic heart failure Hyperlipidemia Hypertension Left hamstring muscle strain NSTEMI (non-ST elevated myocardial infarction) Skin cancer UTI (urinary tract infection) Physical Therapy Inpatient Evaluation/Re-Eval M1 PT IP Prior Functional Status Start: 04/19/25 12:48 Freq: NEEDED Status: Active Protocol: Document 04/19/25 10:32 [facility] (Rec: 04/19/25 13:04 [facility] [id number]) Medical Review Prior Functional Status Medical History Yes Reviewed Diet/Fluid Regular Consistency Communication I Mobility and Gait Pt uses the 4ww. Activities of Daily Pt gets assist for LB dressing, assist for sponge Living and IADL's bathing, and for IADL needs. Prior Functional Pt's daughter and daughter in law alternate to assist Level (Other details pt during the day and live close by. Pt lives with her ) delayed adult son per chart. Social History Household Members children Living Arrangements Mobile home Number of Stairs To Pt has a ramp to enter. Enter/Railing? Home Equipment Four Wheel Walker,Power Wheelchair/Scooter,Bedside Commode,Lift Recliner,Grab Bars Near Toilet,Grab Bars In Shower Additional Social Pt's daughter states the home health OT suggested pt History Comment look into Hospice but pt not open to it at the time. M2 PT-IP Current Condition Start: 04/19/25 12:48 Freq: NEEDED Status: Active Protocol: Document 04/19/25 10:32 [facility] (Rec: 04/19/25 13:04 [facility] [id number]) Physical Therapy Current Condition Current Condition Evaluation Date 04/19/25 Treatment Diagnosis SOB, weakness Onset Date 04/16/25 M3 PT-IP Subjective Start: 04/19/25 12:48 Freq: NEEDED Status: Active Protocol: Document 04/19/25 10:32 [facility] (Rec: 04/19/25 13:04 [facility] [id number]) Subjective Physical Therapy Visit Type Type Initial Evaluation Visit Start Time 10:32 Visit Stop Time 11:00 Number of [employer]OR [employer] Visits 0 Physical Therapy Visit Comments Patient Comments Patient willing to participate in PT. Pat in bed with HOB elevated, daughter in room. O2 per NC at 3 L. Patient reports she uses O2 at home 05/12, uses CPAP at night with O2 attached. Has a 4WW and also just got a power wheelchair which she is learning to use. Was doing Home Health PT with [facility] prior to admission. Daughter and pt. report very difficult to get pt in and out of vehicle. Therapy Pain Assessment Pain When Pain Assessed At Rest Pain Present Pain Present Pain Reported Location Bilateral Leg Intensity 7 Scale Used Numeric (0 - 10) Description Throbbing Generalized Intensity 7 Scale Used Numeric (0 - 10) Description Aching,Spasm,Throbbing Bilateral Ribs Intensity 7 Scale Used Numeric (0 - 10) Description Aching,Spasm M4 PT-IP Mobility and Gait Start: 04/19/25 12:48 Freq: NEEDED Status: Active Protocol: Document 04/19/25 10:32 [facility] (Rec: 04/19/25 13:04 [facility] [id number]) PT-Bed Mobility Assessment Supine to Sit Supine to Sit Moderate Assistance,1 Person Assistance,Head of Bed Elevated,Bedrails Sit to Supine Sit to Supine Moderate Assistance Scooting Scooting to Edge of Moderate Assistance Bed Scooting Up and Down Moderate Assistance,Maximum Assistance in Bed PT-Transfer Assessment Sit to and From Stand Sit to and from Minimal Assistance Stand Equipment Transfer Assistive Bed Rail,Gait Belt,Front Wheeled Walker,4 Wheeled Device Walker Gait Assessment Gait Gait Assistance Minimum Assistance Required: Distance (Feet) 0 Assistive Devices Assistive Device Gait Belt,Front Wheeled Walker Comments Gait Comments unable to ambulate. Stood x 2 for 1 min first attempt, 30 sec second, but c/o SOB and fatigue and requested to be assisted back to bed Stair Climbing Assessment Comments Stair Climbing not appropriate at this time Comments PT-Balance Assessment Sitting Balance and Reactions Static Sitting Fair Balance Ability Dynamic Sitting Fair Balance Ability Standing Balance and Reactions Static Standing Fair Balance Ability Device Used FWW Comments Other Balance Tests/ unable to kong Deviations/Treatment : Functional Assessments Other Functional Tests unable to kong Performed M5 PT-IP Objective Assessments Start: 04/19/25 12:48 Freq: NEEDED Status: Active Protocol: Document 04/19/25 10:32 [facility] (Rec: 04/19/25 13:04 [facility] [id number]) Orientation Orientation/Cognition Level of Alertness Alert Orientation Name,Age,Birthday,Month,Year,Situation Language Function No Deficits Noted Ability Safety Awareness Understands Safety Issues Memory Description No Deficits Noted Gross Range of Motion Upper Extremity ROM Assessment Within Functional Limits Lower Extremity ROM Assessment Within Functional Limits Strength Upper Extremity Strength Assessment Bilaterally Impaired Lower Extremity Strength Assessment Bilaterally Impaired Comments Strength Comments No MMT performed due to patient high fatigue level with SOB. AROM assessed as above. Coordination Assessment Gross Coordination Gross Coordination WNL Sensation Assessment Sensation Gross Sensation WNL M7 PT-IP Assessment and Plan Start: 04/19/25 12:48 Freq: NEEDED Status: Active Protocol: Document 04/19/25 10:32 [facility] (Rec: 04/19/25 13:04 [facility] [id number]) PT Summary Assessment and Plan Potential Rehabilitation Fair Potential Status of Condition Evolving at Evaluation Summary Impairments Pain,Strength,Bed Mobility,Transfers,Gait,Activity Tolerance Assessment Summary Patient is 89 y/o admitted to hospital with CHF exacerbation. [employer] she was receiving Home Health services including PT. She lives with her son and daughter and other family members close by and assist pt. with all her ADL's and mobility. She has current impairments in all functional mobility skills, strength , and diminished activity tolerance with c/o increased SOB with talking and moving. Poor tolerance for standing, and was feeling too weak to attempt walking. Her O2 sats were 98% supine at rest, decreased as low as 84% briefly after coughing and mobility skills. Due to decline in her functional status feel she would benefit highly from SNF rehab at discharge. Goals Bed Mobility Goal Standby Assistance Transfer Goal Standby Assistance Gait Goal Standby Assistance Gait Distance 100 Days to Meet Goals 10 Frequency of Treatment Frequency Of Once a Day Treatment Treatment Plan Physical Therapy Bed Mobility Training,Transfer Training,Gait Training, Treatment Plan Therapeutic Exercise,Discharge Planning Weight Bearing Status Weight Bearing Full Weight Bearing Status Recommendations To Nursing Amount of Assist 1 Person Assist Needed Discharge Recommendations PT Discharge Home with 05/12 Assist Available,Home Health,SNF Rehab, Recommendations Home vs SNF Transportation Needs Wheelchair/Cabulance at Discharge
[2025-04-19] MEDS: BENZOCAINE/MENTHOL 1 LOZ PKT 1 EACH PO (13:13)
[2025-04-19] MEDS: BENZONATATE 100 MG CAPSULE PO ×2 (13:13→20:58)
[2025-04-19] MEDS: INSULIN LISPRO 100 UNIT/ML 3ML VIAL 14 UNIT SUBCUT (16:35)
[2025-04-19] MEDS: INSULIN GLARGINE 100 UNIT/ML 3ML PEN 35 UNIT SUBCUT (20:54)
[2025-04-19] MEDS: ATORVASTATIN 20 MG TABLET 80 MG PO (20:58)
[2025-04-20] VITALS (8 sets, daily range): BP systolic 141–185; BP diastolic 51–77; PULSE 68–98; RESP 13–22; TEMP 35.9–37.1; O2SAT 97–100
[2025-04-20] MEDS: FUROSEMIDE 40 MG/4 ML VIAL IV ×4 (00:30→23:47)
[2025-04-20] MEDS: BENZOCAINE/MENTHOL 1 LOZ PKT 1 EACH PO ×3 (07:22→21:04)
--- NOTE | 2025-04-20 08:08 | PM.PN.1 ---
Subjective Subjective Interval history: Course: 04/17: Lying comfortably in bed no acute respiratory distress at rest 04/18: Able to get up walk across room to the commode with assistance body aches all over swelling in her legs some dyspnea with activity S: Feels a bit better, coughing more with more production of sputum which is green. No fevers. Overall feeling more comfortable with breathing compared to yesterday. O: T 97.9, BP 149/54, pulse 73, respiration 22, SpO2 97% 3 L. NAD, alert and oriented. Fluent speech. On O2. Lungs are diminished, normal rate and effort. Heart is regular, no murmur gallop or rub. Abdomen is soft, non distended. Extremities are free of edema. A/P: 1. Acute chronic diastolic congestive heart failure with acute on chronic hypoxic respiratory failure. Active. 2. Acute exacerbation of COPD, active. 3. Community-acquired pneumonia, active. 4. Chronic coronary artery disease, stable. 5. Morbid obesity, stable. PLAN: -Continue diuresis, Lasix IV Q8. -Isolation (Rhinovirus). -Continue bronchodilators. -Abx (Ceftriaxone) -Steroids. -Increased Robitussin. Exam Vital Signs (past 8 hours): - 04/20/25 00:30 04/20/25 00:30 04/20/25 05:20 Temperature 98.8 F 98.8 F Pulse Rate 71 98 H Respiratory Rate 20 20 Blood Pressure 185/77 H 141/51 H Pulse Oximetry 99 98 Oxygen Delivery Method Nasal Cannula CPAP Oxygen Flow Rate 3 3 Fraction of Inspired Oxygen 28 SaO2/FiO2 Ratio 346 Oxygen Delivery Method Nasal Cannula,CPAP Oxygen Flow Rate 3 Objective Labs 04/18/25 06:55 04/18/25 06:55 Labs: Laboratory Results - last 24 hr 04/19/25 04/19/25 04/19/25 11:26 16:17 20:51 POC Whole Bld Glucose 344 H D 244 H D 251 H 04/20/25 07:29 POC Whole Bld Glucose 124 H D PFSH Medical History Chronic respiratory failure with hypoxia Skin cancer NSTEMI (non-ST elevated myocardial infarction) Diastolic heart failure Cardiac arrest Chest pain Hypertension Hyperlipidemia Coronary artery disease Left hamstring muscle strain UTI (urinary tract infection) Surgical History H/O right heart catheterization History of breast implant removal History of breast surgery History of appendectomy History of cholecystectomy History of total abdominal hysterectomy History of coronary artery stent placement Family History Father Hypertension Diabetes mellitus Mother Hypertension MD (myocardial infarction) Sister MD (myocardial infarction) S/P CABG x 4 Social History household members: children Smoking Status: Never smoker alcohol intake: never Assessment & Plan Time-Based Coding :: [TOTAL MINUTES] spent with patient and on the chart (including review of chart, obtaining history, exam, reviewing outside data, placing orders, documenting exam and treatment plan, and counseling patient) on [DATE].
[2025-04-20] MEDS: ALBUTEROL/IPRATROPIUM 3 ML AMPUL INH ×3 (08:57→20:47)
[2025-04-20] MEDS: CODEINE/guaiFENesin LIQUID 5 ML UDC 10 ML PO ×2 (09:09→21:05)
[2025-04-20] MEDS: RANOLAZINE 500 MG TAB.ER.12H PO ×2 (09:10→21:03)
[2025-04-20] MEDS: ESCITALOPRAM 10 MG TABLET 20 MG PO (09:10)
[2025-04-20] MEDS: PANTOPRAZOLE DR 40 MG TABLET PO (09:10)
[2025-04-20] MEDS: HEPARIN 5,000 UNIT/ML VIAL 5000 UNIT SUBCUT ×2 (09:10→21:03)
[2025-04-20] MEDS: ASPIRIN EC 81 MG TABLET PO (09:10)
[2025-04-20] MEDS: METOPROLOL IR 25 MG TABLET 12.5 MG PO ×2 (09:10→21:04)
[2025-04-20] MEDS: INSULIN LISPRO 100 UNIT/ML 3ML VIAL 8 UNIT SUBCUT ×2 (09:20→12:04)
[2025-04-20] MEDS: methylPREDNISolone succ 40 MG/ML VIAL 20 MG IV ×2 (09:21→16:15)
[2025-04-20] MEDS: SODIUM CHLORIDE 0.9% FLUSH 10 ML IV ×2 (09:24→21:01)
[2025-04-20] MEDS: NYSTATIN CREAM 30 GM 1 APPLIC TOP ×2 (09:25→21:01)
[2025-04-20] MEDS: INSULIN LISPRO 100 UNIT/ML 3ML VIAL SUBCUT ×4 (12:04→23:46)
[2025-04-20] MEDS: INSULIN LISPRO 100 UNIT/ML 3ML VIAL 12 UNIT SUBCUT (17:15)
[2025-04-20] MEDS: INSULIN GLARGINE 100 UNIT/ML 3ML PEN 35 UNIT SUBCUT (21:00)
[2025-04-20] MEDS: ATORVASTATIN 20 MG TABLET 80 MG PO (21:03)
[2025-04-20] MEDS: BENZONATATE 100 MG CAPSULE PO (21:04)
[2025-04-21] VITALS (9 sets, daily range): BP systolic 153–188; BP diastolic 51–73; PULSE 72–88; RESP 12–20; TEMP 35.8–36.7; O2SAT 96–100
[2025-04-21] MEDS: CODEINE/guaiFENesin LIQUID 5 ML UDC 10 ML PO ×5 (02:35→20:30)
[2025-04-21] MEDS: BENZOCAINE/MENTHOL 1 LOZ PKT 1 EACH PO ×2 (02:35→06:42)
[2025-04-21] MEDS: BENZONATATE 100 MG CAPSULE PO (06:42)
--- NOTE | 2025-04-21 07:28 | PM.PN.1 ---
Subjective Subjective Date Patient Seen: 04/21/25 Interval history: 04/17: Lying comfortably in bed no acute respiratory distress at rest 04/18: Able to get up walk across room to the commode with assistance body aches all over swelling in her legs some dyspnea with activity 04/20: Feels a bit better, coughing more with more production of sputum which is green. No fevers. Overall feeling more comfortable with breathing compared to yesterday. 04/21: Blood sugars range 157-336. Last labs include white blood count 13.6 and hemoglobin 10.6 with normal BNP on 04/18. Her PCP is MI Bass in [place]. Her son lives with her. Daughter is present today and is quite solicitous. Blood pressure 162/65. NAD, alert and oriented. Fluent speech. On O2. [place] Lungs are diminished, normal rate and effort. Heart is regular, no murmur gallop or rub. Abdomen is soft, non distended. Extremities are free of edema. A/P: 1. Acute chronic diastolic congestive heart failure with acute on chronic hypoxic respiratory failure. Active. 2. Acute exacerbation of COPD, active. 3. Community-acquired pneumonia, active. 4. Chronic coronary artery disease, stable. 5. Morbid obesity, stable. 6. DM 2 PLAN: -Continue diuresis, Lasix IV Q8. -Continue Glargine, Lispro, Lasix and Ranexa -Isolation (Rhinovirus). -Continue bronchodilators. -Abx (Ceftriaxone) -Steroids. -Robitussin. Anticipate home in 1-2 days. Exam Vital Signs (past 8 hours): - 04/21/25 00:00 04/21/25 04:00 Temperature 97.9 F 98.1 F Pulse Rate 76 74 Respiratory Rate 18 12 Blood Pressure 180/73 H 162/65 H Pulse Oximetry 98 98 Oxygen Flow Rate 4 4 Fraction of Inspired Oxygen 32 SaO2/FiO2 Ratio 306 Oxygen Delivery Method Nasal Cannula Oxygen Flow Rate 4 Objective Labs 04/18/25 06:55 04/18/25 06:55 Labs: Laboratory Results - last 24 hr 04/20/25 04/20/25 04/20/25 07:29 11:17 16:46 POC Whole Bld Glucose 124 H D 157 H 350 H D 04/20/25 04/20/25 20:01 23:12 POC Whole Bld Glucose 447 H* 336 H D PFSH Medical History Chronic respiratory failure with hypoxia Skin cancer NSTEMI (non-ST elevated myocardial infarction) Diastolic heart failure Cardiac arrest Chest pain Hypertension Hyperlipidemia Coronary artery disease Left hamstring muscle strain UTI (urinary tract infection) Surgical History H/O right heart catheterization History of breast implant removal History of breast surgery History of appendectomy History of cholecystectomy History of total abdominal hysterectomy History of coronary artery stent placement Family History Father Hypertension Diabetes mellitus Mother Hypertension LA (myocardial infarction) Sister LA (myocardial infarction) S/P CABG x 4 Social History household members: children Smoking Status: Never smoker alcohol intake: never Assessment & Plan Time-Based Coding :: [TOTAL MINUTES] spent with patient and on the chart (including review of chart, obtaining history, exam, reviewing outside data, placing orders, documenting exam and treatment plan, and counseling patient) on [DATE].
[2025-04-21] MEDS: ALBUTEROL/IPRATROPIUM 3 ML AMPUL INH ×3 (08:15→19:20)
[2025-04-21] MEDS: INSULIN LISPRO 100 UNIT/ML 3ML VIAL 8 UNIT SUBCUT ×2 (09:32→12:44)
[2025-04-21] MEDS: INSULIN LISPRO 100 UNIT/ML 3ML VIAL SUBCUT ×4 (09:32→20:38)
[2025-04-21] MEDS: methylPREDNISolone succ 40 MG/ML VIAL 20 MG IV ×2 (09:33→16:56)
[2025-04-21] MEDS: FUROSEMIDE 40 MG/4 ML VIAL IV ×2 (09:33→16:56)
[2025-04-21] MEDS: METOPROLOL IR 25 MG TABLET 12.5 MG PO ×2 (09:34→20:30)
[2025-04-21] MEDS: ESCITALOPRAM 10 MG TABLET 20 MG PO (09:34)
[2025-04-21] MEDS: ASPIRIN EC 81 MG TABLET PO (09:34)
[2025-04-21] MEDS: HEPARIN 5,000 UNIT/ML VIAL 5000 UNIT SUBCUT ×2 (09:34→20:29)
[2025-04-21] MEDS: RANOLAZINE 500 MG TAB.ER.12H PO ×2 (09:35→20:30)
[2025-04-21] MEDS: NYSTATIN CREAM 30 GM 1 APPLIC TOP ×2 (09:35→21:20)
[2025-04-21] MEDS: SODIUM CHLORIDE 0.9% FLUSH 10 ML IV ×2 (09:35→20:31)
[2025-04-21] MEDS: PANTOPRAZOLE DR 40 MG TABLET PO (09:35)
[2025-04-21] MEDS: INSULIN LISPRO 100 UNIT/ML 3ML VIAL 12 UNIT SUBCUT (17:01)
[2025-04-21] MEDS: ATORVASTATIN 20 MG TABLET 80 MG PO (20:30)
[2025-04-21] MEDS: INSULIN GLARGINE 100 UNIT/ML 3ML PEN 40 UNIT SUBCUT (20:34)
[2025-04-22] VITALS (7 sets, daily range): BP systolic 106–195; BP diastolic 43–69; PULSE 69–88; RESP 16–20; TEMP 35.9–36.8; O2SAT 94–100
[2025-04-22] MEDS: CODEINE/guaiFENesin LIQUID 5 ML UDC 10 ML PO ×3 (05:06→22:16)
--- NOTE | 2025-04-22 06:50 | PM.PN.1 ---
Subjective Subjective Date Patient Seen: 04/22/25 Interval history: 04/17: Lying comfortably in bed no acute respiratory distress at rest 04/18: Able to get up walk across room to the commode with assistance body aches all over swelling in her legs some dyspnea with activity 04/20: Feels a bit better, coughing more with more production of sputum which is green. No fevers. Overall feeling more comfortable with breathing compared to yesterday. 04/21: Blood sugars range 157-336. Last labs include white blood count 13.6 and hemoglobin 10.6 with normal BNP on 04/18. Her PCP is MI Bass in [place]. Her son lives with her. Daughter is present today and is quite solicitous. Blood pressure 162/65. 04/22: Blood pressure has been 186/69 so lisinopril will be added. Breathing is slowly improving and she could be within a day or 2 of going home. NAD, alert and oriented. Fluent speech. On O2. [place] Lungs are diminished with bilateral wheezing, normal rate and effort. Heart is regular, no murmur gallop or rub. Abdomen is soft, non distended. Extremities are free of edema. Left arm bruise is present. A/P: 1. Acute chronic diastolic congestive heart failure with acute on chronic hypoxic respiratory failure. Active. 2. Acute exacerbation of COPD, active. 3. Community-acquired pneumonia, active. 4. Chronic coronary artery disease, stable. 5. Morbid obesity, stable. 6. DM 2 7. HTN PLAN: -Continue diuresis, Lasix IV Q8. -Continue Glargine, Lispro, Lasix and Ranexa -Isolation (Rhinovirus). -Continue bronchodilators. -Abx (Ceftriaxone) -Steroids. -Robitussin. -Add Lisinopril. Continue Metoprolol. Anticipate home in 1-2 days. Exam Vital Signs (past 8 hours): - 04/22/25 05:00 Temperature 97.4 F L Pulse Rate 70 Respiratory Rate 20 Blood Pressure 186/69 H Pulse Oximetry 99 Oxygen Flow Rate 3 Fraction of Inspired Oxygen 28 SaO2/FiO2 Ratio 350 Oxygen Delivery Method CPAP Oxygen Flow Rate 3 Objective Labs 04/18/25 06:55 04/18/25 06:55 Labs: Laboratory Results - last 24 hr 04/21/25 04/21/25 04/21/25 07:37 12:08 16:41 POC Whole Bld Glucose 156 H D 276 H D 357 H 04/21/25 04/21/25 19:53 23:03 POC Whole Bld Glucose 396 H 221 H D PFSH Medical History Chronic respiratory failure with hypoxia Skin cancer NSTEMI (non-ST elevated myocardial infarction) Diastolic heart failure Cardiac arrest Chest pain Hypertension Hyperlipidemia Coronary artery disease Left hamstring muscle strain UTI (urinary tract infection) Surgical History H/O right heart catheterization History of breast implant removal History of breast surgery History of appendectomy History of cholecystectomy History of total abdominal hysterectomy History of coronary artery stent placement Family History Father Hypertension Diabetes mellitus Mother Hypertension [place] (myocardial infarction) Sister IA (myocardial infarction) S/P CABG x 4 Social History household members: children Smoking Status: Never smoker alcohol intake: never Assessment & Plan Time-Based Coding :: [TOTAL MINUTES] spent with patient and on the chart (including review of chart, obtaining history, exam, reviewing outside data, placing orders, documenting exam and treatment plan, and counseling patient) on [DATE].
[2025-04-22] MEDS: ALBUTEROL/IPRATROPIUM 3 ML AMPUL INH ×3 (07:27→19:23)
[2025-04-22] MEDS: FUROSEMIDE 40 MG/4 ML VIAL IV ×3 (09:22→17:47)
[2025-04-22] MEDS: INSULIN LISPRO 100 UNIT/ML 3ML VIAL SUBCUT ×4 (09:22→22:14)
[2025-04-22] MEDS: methylPREDNISolone succ 40 MG/ML VIAL 20 MG IV ×2 (09:23→17:47)
[2025-04-22] MEDS: INSULIN LISPRO 100 UNIT/ML 3ML VIAL 8 UNIT SUBCUT (09:23)
[2025-04-22] MEDS: ACETAMINOPHEN 325 MG TABLET 650 MG PO (09:24)
[2025-04-22] MEDS: BENZONATATE 100 MG CAPSULE PO ×3 (09:24→22:16)
[2025-04-22] MEDS: METOPROLOL IR 25 MG TABLET 12.5 MG PO ×2 (09:25→22:16)
[2025-04-22] MEDS: ESCITALOPRAM 10 MG TABLET 20 MG PO (09:25)
[2025-04-22] MEDS: RANOLAZINE 500 MG TAB.ER.12H PO ×2 (09:25→22:20)
[2025-04-22] MEDS: PANTOPRAZOLE DR 40 MG TABLET PO (09:25)
[2025-04-22] MEDS: ASPIRIN EC 81 MG TABLET PO (09:25)
[2025-04-22] MEDS: HEPARIN 5,000 UNIT/ML VIAL 5000 UNIT SUBCUT ×2 (09:26→22:17)
[2025-04-22] MEDS: SODIUM CHLORIDE 0.9% FLUSH 10 ML IV ×2 (09:27→22:17)
[2025-04-22] MEDS: NYSTATIN CREAM 30 GM 1 APPLIC TOP (09:27)
[2025-04-22] MEDS: INSULIN LISPRO 100 UNIT/ML 3ML VIAL 12 UNIT SUBCUT ×2 (13:18→17:49)
--- NOTE | 2025-04-22 14:13 | CM.DPNOTE ---
DCP Continued: Reviewed EMR and team rounds for pt?s medical status. Per hospitalist, pt anticipated to discharge home on 04/23 or when medically cleared. Per PT, recommending SNF at discharge or home with / care. Per CM notes, pt confirmed that she will decline any referral for SNF and strong preference to dc home with daughter support and [facility]. [employer] replaced resumption orders for [facility], will need to send dc summary to [facility] when available. Plan: Anticipating dc home with daughter to transport/support on 04/23 or when medically cleared. [facility] to resume care. CM Team will continue to follow for coordination of discharge plans. ROHIT Melendez
--- NOTE | 2025-04-22 16:53 | OT.IP.TRT ---
Current Diagnoses Sepsis, unspecified organism (04/17/25) Heart failure, unspecified (04/17/25) Pneumonia, unspecified organism (04/17/25) Other specified abnormal findings of blood chemistry (04/17/25) Occupational Therapy Treatment Note M2 OT-IP Current Condition Start: 04/18/25 17:14 Freq: Status: Active Protocol: Document 04/18/25 17:14 [facility] (Rec: 04/18/25 17:40 [facility] Desktop) Occupational Therapy Current Condition Current Condition Evaluation Date 04/18/25 Treatment Diagnosis Acute Exacerbation if COPD Diagnosis Onset Date 04/17/25 M3 OT- IP Subjective and Pain Start: 04/18/25 17:14 Freq: Status: Active Protocol: Document 04/22/25 16:55 [facility] (Rec: 04/22/25 17:06 [facility] Desktop) OT- Subjective Occupational Therapy Visit Type Type Treatment Note Visit Start Time 16:15 Visit Stop Time 16:53 Occupational Therapy Visit Comments Patient Comments Pt needing lots of encouragement and agreed to use the BSC and walk around the bed. Patient/Caregiver TO go home. Goals OT Pain Assessment Pain When Pain Assessed At Rest Pain Present Pain Present Pain Reported Location Bilateral Leg Pain Behaviors Facial Grimacing M4 OT- IP ADL's Start: 04/18/25 17:14 Freq: Status: Active Protocol: Document 04/22/25 16:55 [facility] (Rec: 04/22/25 17:06 [facility] Desktop) OT ADL-Dressing General Eval Lower Body Dressing Maximum Assistance Ability Areas Needing Underpants/Brief,Socks Assistance OT ADL-Toileting General Evaluation Toileting Ability Maximum Assistance,Total Assistance Areas Needing Manage Clothing,Perform Perineal Hygiene Assistance Comments OT Toileting Pt needing assist to wipe for completeness to wipe and Comments assist for brief management needs. M5 OT- IP IADL's Start: 04/18/25 17:14 Freq: Status: Active Protocol: Document 04/18/25 17:14 [facility] (Rec: 04/18/25 17:40 [facility] Desktop) OT-Instrumental Activities of Daily Living Home Safety Awareness Awareness of Need Good Awareness for Assistance at Home Meal Preparation Meal Preparation Caregiver Provides Assist Timber Killer Timber Killer Caregiver Provides Assist M6 OT- IP Functional Cognition Start: 04/18/25 17:14 Freq: Status: Active Protocol: Document 04/22/25 16:55 [facility] (Rec: 04/22/25 17:06 [facility] Desktop) Cognitive Factors Limiting Selfcare Function Cognitive Comments Cognitive Assessment Pt able to follow commands for ADL and mobility needs. Comments Pt needing lots of encouragement to participate and agreed to getting up. M7 OT- IP Mobility and Balance Start: 04/18/25 17:14 Freq: Status: Active Protocol: Document 04/22/25 16:55 [facility] (Rec: 04/22/25 17:06 [facility] Desktop) OT- Bed Mobility Assessment Sit to Supine Sit to Supine Assist Maximum Assistance OT-Transfer Assessment Sit to and From Stand Sit to and from Minimal Assistance Stand Transfers Transfer Ability Contact Guard Assistance Technique Transfer Destination Bed,Bedside Commode,Chair Transfer Technique Stand Step Pivot Devices Transfer Assistive Front Wheeled Walker Devices Comments Mobility Comments TIFFANY to stand and use the FWW with CGA and able to walk to the BSC and then around the bed. Pt on 3L and at 97 %. MAX A for assist to help get her legs back into bed. Pt sleep in the lift chair at home. OT- Balance Assessment Sitting Balance and Reactions Static Sitting Good Balance Ability Dynamic Sitting Fair Balance Ability Standing Balance and Reactions Static Standing Fair Balance Ability Dynamic Standing Fair Balance Ability M8 OT- IP Objective Assessments Start: 04/18/25 17:14 Freq: Status: Active Protocol: Document 04/18/25 17:14 [facility] (Rec: 04/18/25 17:40 [facility] Desktop) OT Gross Range of Motion Upper Extremity Range of Motion Assessment Bilaterally Impaired ROM Impairments RUE 0-90, LUE 0-80 OT Strength Upper Extremity Strength Assessment Bilaterally Impaired M9 OT- IP Assessment and Plan Start: 04/18/25 17:14 Freq: Status: Active Protocol: Document 04/22/25 16:55 [facility] (Rec: 04/22/25 17:06 [facility] Desktop) OT Summary Assessment and Plan Potential Rehabilitation Fair Potential Analytic Complexity Moderate at Evaluation Summary OT Impairments Pain,Strength,Balance,Functional Mobility,Dressing, Toileting,Bathing,Toilet Transfers,Activity Tolerance Progress Towards Slow Progress due to Pain,Slow Progress due to Medical Goals Issues,Slow Progress due to Activity Tolerance Assessment Summary Pt able to get to the BSC and walk around the bed with the walker. Pt's daughter is very supportive and actively able to assist pt in the room with good safety . Pt to go home with 24/7 assist and resume home health when medically stable. Goals Dressing Goal Moderate Assistance Toileting Goal Standby Assistance Bathing Goal Moderate Assistance Toilet Transfer Goal Independent Days to Meet Goals 5 Frequency of Treatment Other frequency 5x/week Treatment Plan OT Treatment Plan ADL Training,Functional Mobility,Patient/Family Education,Discharge Planning Discharge Recommendations OT Discharge Home with 24/7 Assist Available,Home Health Recommendations Transportation Needs Private Vehicle at Discharge
[2025-04-22] MEDS: INSULIN GLARGINE 100 UNIT/ML 3ML PEN 40 UNIT SUBCUT (22:14)
[2025-04-22] MEDS: BENZOCAINE/MENTHOL 1 LOZ PKT 1 EACH PO (22:16)
[2025-04-22] MEDS: ATORVASTATIN 20 MG TABLET 80 MG PO (22:16)
[2025-04-23] MEDS: FUROSEMIDE 40 MG/4 ML VIAL IV ×3 (00:15→16:30)
[2025-04-23 04:00] VITALS: BP 174/68; PULSE 71; RESP 18; TEMP 35.7; O2SAT 98
[2025-04-23 08:00] VITALS: BP 182/65; PULSE 72; RESP 22; TEMP 35.9; O2SAT 96
[2025-04-23 08:10] LABS: Add Manual Diff / Slide Review NO; Hematocrit 36.3 % (36-46); Hemoglobin 11.4 g/dL (12.0-16.0); Lymphocytes Absolute Auto 1600 /uL (1100-4500); Mean Corpuscular HGB Conc 31.5 % (30-36); Mean Corpuscular Hemoglobin 23.0 PG (26-34); Mean Corpuscular Volume 73.1 fL (80-100); Platelet Count 228 X10^3/uL (150-400)
[2025-04-23 08:24] LABS: Alanine Aminotransferase 17 IU/L (<35); Albumin 3.7 g/dL (3.5-5.0); Albumin Globulin Ratio 1.5 (1.0-2.8); Alkaline Phosphatase 50 U/L (38-126); Blood Urea Nitrogen 36 mg/dL (7-17); Calcium 8.9 mg/dL (8.4-10.2); Carbon Dioxide 39 mmol/L (22-32); Chloride 94 mmol/L (98-107); Estimated Glomerular Filt Rate 59 mL/min (>60); Globulin 2.5 g/dL (1.7-4.1); Glucose 129 mg/dL (70-99); HEMOLYSIS < 15 (0-50); Potassium 3.2 mmol/L (3.4-5.1); Sodium 137 mmol/L (137-145); Total Protein 6.2 g/dL (6.3-8.2)
[2025-04-23] MEDS: ALBUTEROL/IPRATROPIUM 3 ML AMPUL INH ×3 (08:37→19:54)
[2025-04-23 09:06] VITALS: PULSE 73; RESP 18; O2SAT 98
[2025-04-23] MEDS: INSULIN LISPRO 100 UNIT/ML 3ML VIAL 12 UNIT SUBCUT (09:21)
[2025-04-23] MEDS: methylPREDNISolone succ 40 MG/ML VIAL 20 MG IV ×2 (09:21→16:46)
[2025-04-23] MEDS: CODEINE/guaiFENesin LIQUID 5 ML UDC 10 ML PO ×3 (09:22→21:05)
[2025-04-23] MEDS: HEPARIN 5,000 UNIT/ML VIAL 5000 UNIT SUBCUT ×2 (09:22→21:07)
[2025-04-23] MEDS: PANTOPRAZOLE DR 40 MG TABLET PO (09:23)
[2025-04-23] MEDS: BENZONATATE 100 MG CAPSULE PO ×2 (09:23→21:06)
[2025-04-23] MEDS: METOPROLOL IR 25 MG TABLET 12.5 MG PO ×2 (09:23→21:07)
[2025-04-23] MEDS: ASPIRIN EC 81 MG TABLET PO (09:23)
[2025-04-23] MEDS: ESCITALOPRAM 10 MG TABLET 20 MG PO (09:23)
[2025-04-23] MEDS: SODIUM CHLORIDE 0.9% FLUSH 10 ML IV ×2 (09:24→21:26)
[2025-04-23] MEDS: RANOLAZINE 500 MG TAB.ER.12H PO ×2 (09:36→21:06)
[2025-04-23] MEDS: POTASSIUM CHLORIDE 20 MEQ TAB 40 MEQ PO (09:36)
--- NOTE | 2025-04-23 11:16 | OT.IPNOTE ---
Pt not wanting to participate in OT due to not feeling well and just wanting to rest.
[2025-04-23] MEDS: INSULIN LISPRO 100 UNIT/ML 3ML VIAL SUBCUT ×3 (11:58→21:06)
[2025-04-23] MEDS: INSULIN LISPRO 100 UNIT/ML 3ML VIAL 14 UNIT SUBCUT ×2 (11:59→16:46)
[2025-04-23] MEDS: NYSTATIN CREAM 30 GM 1 APPLIC TOP (11:59)
[2025-04-23 13:20] VITALS: PULSE 78; RESP 18; O2SAT 97
--- NOTE | 2025-04-23 14:40 | PT.IPTN ---
Current Diagnoses Sepsis, unspecified organism (04/17/25) Heart failure, unspecified (04/17/25) Pneumonia, unspecified organism (04/17/25) Other specified abnormal findings of blood chemistry (04/17/25) Physical Therapy Treatment Note M2 PT-IP Current Condition Start: 04/19/25 12:48 Freq: NEEDED Status: Active Protocol: Document 04/19/25 10:32 [facility] (Rec: 04/19/25 13:04 [facility] [id number]) Physical Therapy Current Condition Current Condition Evaluation Date 04/19/25 Treatment Diagnosis SOB, weakness Onset Date 04/16/25 M3 PT-IP Subjective Start: 04/19/25 12:48 Freq: NEEDED Status: Active Protocol: Document 04/23/25 15:48 [facility] (Rec: 04/23/25 16:01 [facility] [id number]) Subjective Physical Therapy Visit Type Type Treatment Note Visit Start Time 14:01 Visit Stop Time 14:40 Notes 39 Physical Therapy Visit Comments Patient Comments Pt was found visiting with daughter in semi-bird position on 2L of O2. Did not sleep well last night. Patient Goals Return home. M4 PT-IP Mobility and Gait Start: 04/19/25 12:48 Freq: NEEDED Status: Active Protocol: Document 04/23/25 15:48 [facility] (Rec: 04/23/25 16:01 [facility] [id number]) PT-Bed Mobility Assessment Rolling Type of Rolling Roll to Left Level of Assist Contact Guard Assistance Supine to Sit Supine to Sit Minimal Assistance Sit to Supine Sit to Supine Moderate Assistance Scooting Scooting to Edge of Moderate Assistance Bed PT-Transfer Assessment Sit to and From Stand Sit to and from Minimal Assistance Stand Equipment Transfer Assistive Bed Rail,Gait Belt,Front Wheeled Walker,4 Wheeled Device Walker Transfers Transfer Destination Chair,Toilet Transfer Technique Stand Step Pivot Transfer Ability Level of Assist Minimal Assistance Comments Mobility Comments Fatigues quickly and requires BSC to be placed under pt with transfer back into bed. PT-Balance Assessment Sitting Balance and Reactions Static Sitting Good Balance Ability Dynamic Sitting Good Balance Ability Standing Balance and Reactions Static Standing Poor Balance Ability Dynamic Standing Poor Balance Ability Device Used fww Functional Assessments Other Functional Tests unable to tolerate Performed M5 PT-IP Objective Assessments Start: 04/19/25 12:48 Freq: NEEDED Status: Active Protocol: Document 04/19/25 10:32 [facility] (Rec: 04/19/25 13:04 [facility] [id number]) Orientation Orientation/Cognition Level of Alertness Alert Orientation Name,Age,Birthday,Month,Year,Situation Language Function No Deficits Noted Ability Safety Awareness Understands Safety Issues Memory Description No Deficits Noted Gross Range of Motion Upper Extremity ROM Assessment Within Functional Limits Lower Extremity ROM Assessment Within Functional Limits Strength Upper Extremity Strength Assessment Bilaterally Impaired Lower Extremity Strength Assessment Bilaterally Impaired Comments Strength Comments No MMT performed due to patient high fatigue level with SOB. AROM assessed as above. Coordination Assessment Gross Coordination Gross Coordination WNL Sensation Assessment Sensation Gross Sensation WNL M6 PT-IP Treatment Start: 04/19/25 12:48 Freq: NEEDED Status: Active Protocol: Document 04/23/25 15:48 [facility] (Rec: 04/23/25 16:01 [facility] [id number]) Physical Therapy Treatment Education Education Provided Safety Other Treatments Other Treatment STS from edge of bed, BSC x 2 with FWW at [place] Performed Standing tolerance < 30 secs with FWW at CGA to assist with brief change Education on importance for pt to continue to participate in ADLs upon discharge home. Education on acquiring and using FWW upon discharge instead of 4WW secondary to increased stability. M7 PT-IP Assessment and Plan Start: 04/19/25 12:48 Freq: NEEDED Status: Active Protocol: Document 04/23/25 15:48 [facility] (Rec: 04/23/25 16:01 [facility] [id number]) PT Summary Assessment and Plan Potential Rehabilitation Fair Potential Status of Condition Evolving at Evaluation Summary Impairments Strength,Balance,Bed Mobility,Transfers,Gait,Activity Tolerance Progress Towards Slow Progress due to Activity Tolerance Goals Assessment Summary Lida requires encouragement to participate with PT today. Pt has fluctuating oxygen levels with activity decreasing to mid 80s and recovering to high 90s within 1-2 min on 2L of oxygen. Pt requires modA to bed mobility, [place] for stand pivot transfer from edge of bed to BSC, and has low activity tolerance to < 30 seconds with FWW. Education given on recommendation to use FWW instead of 4WW at home to reduce fall liklihood as pt is declining SNF. If pt were to go home she would likely require 24 hour support, has family living with pt to assist, and home health to continue with interventions. Pt returned to semi-bird position with in normal limits for vitals and RN communicated with for replacement of purewick. Goals Bed Mobility Goal Standby Assistance Transfer Goal Standby Assistance Gait Goal Standby Assistance Gait Distance 100 Days to Meet Goals 10 Frequency of Treatment Frequency Of Once a Day Treatment Treatment Plan Physical Therapy Bed Mobility Training,Transfer Training,Gait Training, Treatment Plan Therapeutic Exercise,Discharge Planning Weight Bearing Status Weight Bearing Full Weight Bearing Status Recommendations To Nursing Amount of Assist 1 Person Assist Needed Discharge Recommendations PT Discharge SNF Rehab,Home vs SNF Recommendations Other Discharge Pt refusing to go to SNF. If pt goes home recommending Recommendations HH to continue. Equipment Needed for FWW as pt only has 4WW and power chair. Home Before Discharge Transportation Needs Wheelchair/Cabulance at Discharge - PT assist 1
[2025-04-23 16:36] VITALS: BP 161/53; PULSE 75; RESP 14; TEMP 36.4; O2SAT 99
[2025-04-23 19:55] VITALS: PULSE 74; RESP 18; O2SAT 100
[2025-04-23] MEDS: INSULIN GLARGINE 100 UNIT/ML 3ML PEN 40 UNIT SUBCUT (21:05)
[2025-04-23] MEDS: BENZOCAINE/MENTHOL 1 LOZ PKT 1 EACH PO (21:06)
[2025-04-23] MEDS: ATORVASTATIN 20 MG TABLET 80 MG PO (21:07)
[2025-04-24] VITALS (7 sets, daily range): BP systolic 131–161; BP diastolic 45–66; PULSE 61–74; RESP 14–20; TEMP 35.7–36.1; O2SAT 94–99
[2025-04-24] MEDS: FUROSEMIDE 40 MG/4 ML VIAL IV ×3 (00:58→16:46)
[2025-04-24] MEDS: CODEINE/guaiFENesin LIQUID 5 ML UDC 10 ML PO ×3 (03:04→21:26)
[2025-04-24 07:46] LABS: Hemoglobin A1C% w Est Avg Glu 7.1 % (4.0-6.0)
[2025-04-24 07:51] LABS: Blood Urea Nitrogen 42 mg/dL (7-17); Calcium 9.0 mg/dL (8.4-10.2); Carbon Dioxide 38 mmol/L (22-32); Chloride 96 mmol/L (98-107); Estimated Glomerular Filt Rate 51 mL/min (>60); Glucose 137 mg/dL (70-99); HEMOLYSIS < 15 (0-50); Potassium 3.7 mmol/L (3.4-5.1); Sodium 137 mmol/L (137-145)
[2025-04-24] MEDS: INSULIN LISPRO 100 UNIT/ML 3ML VIAL 16 UNIT SUBCUT ×2 (07:55→12:05)
[2025-04-24] MEDS: INSULIN LISPRO 100 UNIT/ML 3ML VIAL SUBCUT ×2 (07:56→12:05)
[2025-04-24] MEDS: methylPREDNISolone succ 40 MG/ML VIAL 20 MG IV ×2 (07:59→16:46)
[2025-04-24] MEDS: ALBUTEROL/IPRATROPIUM 3 ML AMPUL INH ×3 (08:15→18:44)
[2025-04-24] MEDS: RANOLAZINE 500 MG TAB.ER.12H PO ×2 (09:23→21:27)
[2025-04-24] MEDS: PANTOPRAZOLE DR 40 MG TABLET PO (09:24)
[2025-04-24] MEDS: ESCITALOPRAM 10 MG TABLET 20 MG PO (09:24)
[2025-04-24] MEDS: ASPIRIN EC 81 MG TABLET PO (09:24)
[2025-04-24] MEDS: METOPROLOL IR 25 MG TABLET 12.5 MG PO ×2 (09:25→21:27)
[2025-04-24] MEDS: HEPARIN 5,000 UNIT/ML VIAL 5000 UNIT SUBCUT ×2 (09:28→21:28)
[2025-04-24] MEDS: SODIUM CHLORIDE 0.9% FLUSH 10 ML IV (09:29)
[2025-04-24 13:04] LABS: Hematocrit 35.1 % (36-46); Hemoglobin 11.1 g/dL (12.0-16.0); Lymphocytes Absolute Auto 1800 /uL (1100-4500); Mean Corpuscular HGB Conc 31.6 % (30-36); Mean Corpuscular Hemoglobin 23.1 PG (26-34); Mean Corpuscular Volume 73.0 fL (80-100); Platelet Count 254 X10^3/uL (150-400)
[2025-04-24 13:05] LABS: Add Manual Diff / Slide Review SLIDE REVIEW
[2025-04-24 13:07] LABS: Magnesium 2.3 mg/dL (1.6-2.3)
[2025-04-24 13:39] LABS: Thyroid Stimulating Hormone 1.10 uIU/mL (0.47-4.68)
[2025-04-24 13:49] LABS: Hypersegmented Neutrophils 1+; Microcytosis 2+; Rouleaux 2+
--- NOTE | 2025-04-24 15:06 | PT.IPTN ---
Current Diagnoses Sepsis, unspecified organism (04/17/25) Heart failure, unspecified (04/17/25) Pneumonia, unspecified organism (04/17/25) Other specified abnormal findings of blood chemistry (04/17/25) Physical Therapy Treatment Note M2 PT-IP Current Condition Start: 04/19/25 12:48 Freq: NEEDED Status: Active Protocol: Document 04/19/25 10:32 SAK (Rec: 04/19/25 13:04 SAK [id number]) Physical Therapy Current Condition Current Condition Evaluation Date 04/19/25 Treatment Diagnosis SOB, weakness Onset Date 04/16/25 M3 PT-IP Subjective Start: 04/19/25 12:48 Freq: NEEDED Status: Active Protocol: Document 04/24/25 15:51 NW (Rec: 04/24/25 16:03 NW [id number]) Subjective Physical Therapy Visit Type Type Treatment Note Visit Start Time 14:38 Visit Stop Time 15:06 Physical Therapy Visit Comments Patient Comments Pt is found visiting with daughter and son in room. Pt states she feels better than yesterday, although some instances of dizziness. Pt is happy who new hospital doctor is. Patient Goals To go home. M4 PT-IP Mobility and Gait Start: 04/19/25 12:48 Freq: NEEDED Status: Active Protocol: Document 04/24/25 15:51 NW (Rec: 04/24/25 16:03 NW [id number]) PT-Transfer Assessment Sit to and From Stand Sit to and from Contact Guard Assistance,1 Person Assistance Stand Equipment Transfer Assistive Gait Belt,Front Wheeled Walker Device Transfers Transfer Destination Chair Transfer Technique Stand Step Pivot Transfer Ability Level of Assist Contact Guard Assistance Comments Mobility Comments Improved weight shift anterior with good UE placement with AD management. Adequate power production upon stance, poor eccentric control. Gait Assessment Comments Gait Comments self selects not to ambulate today PT-Balance Assessment Sitting Balance and Reactions Static Sitting Good Balance Ability Dynamic Sitting Good Balance Ability Standing Balance and Reactions Static Standing Fair Balance Ability Dynamic Standing Fair Balance Ability Device Used FWW utilized Functional Assessments Functional Tests 30 Seconds Sit to 2 Stand Test Other Functional Tests Standing tolerance: 45 seconds one trial, 36 sec, 28 Performed sec 3rd stance. M5 PT-IP Objective Assessments Start: 04/19/25 12:48 Freq: NEEDED Status: Active Protocol: Document 04/19/25 10:32 SAK (Rec: 04/19/25 13:04 SAK [id number]) Orientation Orientation/Cognition Level of Alertness Alert Orientation Name,Age,Birthday,Month,Year,Situation Language Function No Deficits Noted Ability Safety Awareness Understands Safety Issues Memory Description No Deficits Noted Gross Range of Motion Upper Extremity ROM Assessment Within Functional Limits Lower Extremity ROM Assessment Within Functional Limits Strength Upper Extremity Strength Assessment Bilaterally Impaired Lower Extremity Strength Assessment Bilaterally Impaired Comments Strength Comments No MMT performed due to patient high fatigue level with SOB. AROM assessed as above. Coordination Assessment Gross Coordination Gross Coordination WNL Sensation Assessment Sensation Gross Sensation WNL M6 PT-IP Treatment Start: 04/19/25 12:48 Freq: NEEDED Status: Active Protocol: Document 04/24/25 15:51 NW (Rec: 04/24/25 16:03 NW [id number]) Physical Therapy Treatment Exercises Exercises Ankle Pumps,Seated Knee Flexion/Extension Other Treatments Other Treatment 2 x 10 bilateral without trunk support while seated Performed M7 PT-IP Assessment and Plan Start: 04/19/25 12:48 Freq: NEEDED Status: Active Protocol: Document 04/24/25 15:51 NW (Rec: 04/24/25 16:03 NW [id number]) PT Summary Assessment and Plan Potential Rehabilitation Good Potential Status of Condition Stable at Evaluation Summary Impairments Strength,Balance,Bed Mobility,Transfers,Gait,Activity Tolerance Progress Towards Slow Progress due to Activity Tolerance Goals Assessment Summary Lida is more agreeable to participate with PT today and has improved activity tolerance. She declines to ambulate, but maintains > 95% oxygen saturation with STS x 5 throughout session and standing duration 20-45 seconds upon separate trials. Pt notes having increased weight in BLE, notable 1+ pitting edema, RN notified and asked about orders for compression garments as pt wears them at home. Pt has adequate home support to discharge home with home health as she refuses to go to a SNF. Goals Bed Mobility Goal Standby Assistance Transfer Goal Standby Assistance Gait Goal Standby Assistance Gait Distance 100 Days to Meet Goals 10 Frequency of Treatment Frequency Of Once a Day Treatment Treatment Plan Physical Therapy Bed Mobility Training,Transfer Training,Gait Training, Treatment Plan Therapeutic Exercise,Discharge Planning Weight Bearing Status Weight Bearing Full Weight Bearing Status Recommendations To Nursing Amount of Assist 1 Person Assist Needed Discharge Recommendations PT Discharge Home with Assistance,Home with / Assist Available, Recommendations SNF Rehab,Home vs SNF Other Discharge Pt refusing to go to SNF. If pt goes home recommending Recommendations HH to continue. Equipment Needed for FWW as pt only has 4WW and power chair. Home Before Discharge Transportation Needs Wheelchair/Cabulance at Discharge - PT assist 1
--- NOTE | 2025-04-24 15:12 | PM.PN.1 ---
Subjective Subjective Interval history: Subjective 89-year-old female with past medical history of chronic diastolic heart failure, coronary artery disease status post 6 stents, COPD with chronic 3 L of oxygen via nasal cannula, insulin-dependent diabetes, hyperlipidemia and hypertension who presented on 04/17/2025 with a several day history of increasing shortness of breath and hypoxia despite increasing oxygen to 4 L via nasal cannula. Patient does not feel yet that she is back at her baseline. Oxygen requirements are down to baseline of 3 L but patient still feels short of breath and weak. Objective Vitals reviewed and notable only for systolic blood pressure 152 Alert and oriented, no acute distress Oropharynx moist Regular rate and rhythm without murmurs Coarse breath sounds, bilateral wheeze, normal work of breathing Abdomen soft, nondistended Diffuse nonpitting edema bilateral lower extremities, left arm bruising present Labs -notable only for mild leukocytosis Assessment and plan Acute chronic diastolic congestive heart failure with acute on chronic hypoxic respiratory failure Acute exacerbation of COPD, slowly resolving -continue diuresis with Lasix 40 mg q.8 hours -continue metoprolol, ranolazine and lisinopril -continue methylprednisolone today, anticipate transition to prednisone tomorrow -continue bronchodilators -continue meds for symptom management -encourage patient to be out of bed Community-acquired pneumonia Rhino virus infection Patient completed an appropriate course of antibiotics. No additional treatment needed for community-acquired pneumonia. -continue isolation for rhinovirus Coronary artery disease Clinically stable, no sign of complication -continue aspirin, atorvastatin, metoprolol, and ranolazine Morbid obesity Contributes to comorbid conditions, complicates management and recovery, impacts mobility Insulin-dependent diabetes mellitus Hemoglobin A1c 7.1, suboptimal but improving control in the setting of steroid use. Blood sugar should improve as steroids are decreased and discontinued. -continue current doses of glargine and lispro DVT prophylaxis: Subcutaneous heparin Exam Vital Signs (past 8 hours): - 04/24/25 07:26 04/24/25 08:14 04/24/25 08:15 Temperature 96.8 F L Pulse Rate 61 64 Respiratory Rate 14 20 Blood Pressure 152/56 H Pulse Oximetry 99 94 Oxygen Delivery Method Nasal Cannula Nasal Cannula Oxygen Flow Rate 2.5 04/24/25 09:23 04/24/25 13:13 Temperature Pulse Rate 74 Respiratory Rate 20 Blood Pressure 152/66 H Pulse Oximetry 94 Oxygen Delivery Method Nasal Cannula Oxygen Flow Rate 2.5 Fraction of Inspired Oxygen 32 SaO2/FiO2 Ratio 312 Oxygen Delivery Method Nasal Cannula Oxygen Flow Rate 2.5 Objective Labs 04/24/25 07:00 04/24/25 07:00 Labs: Laboratory Results - last 24 hr 04/23/25 04/23/25 04/24/25 16:28 19:58 07:00 WBC 13.7 H RBC 4.80 Hgb 11.1 L Hct 35.1 L MCV 73.0 L MCH 23.1 L MCHC 31.6 RDW 21.3 H Plt Count 254 Neut % (Auto) 80.2 H Lymph % (Auto) 13.0 L [place] % (Auto) 6.1 Eos % (Auto) 0.0 L Baso % (Auto) 0.7 Neut # (Auto) 77862 H Lymph # (Auto) 1800 [place] # (Auto) 800 Eos # (Auto) 0 Baso # (Auto) 100 Hypersegmented Neuts 1+ RBC Morphology See below Microcytosis 2+ H Rouleaux 2+ H Sodium 137 Potassium 3.7 Chloride 96 L Carbon Dioxide 38 H BUN 42 H Creatinine 1.06 H Estimated GFR 51 L BUN/Creatinine Ratio 39.6 H Glucose 137 H POC Whole Bld Glucose 317 H 347 H Hemoglobin A1c 7.1 H Calcium 9.0 Magnesium 2.3 TSH 1.10 04/24/25 04/24/25 07:20 11:57 WBC RBC Hgb Hct MCV MCH MCHC RDW Plt Count Neut % (Auto) Lymph % (Auto) [place] % (Auto) Eos % (Auto) Baso % (Auto) Neut # (Auto) Lymph # (Auto) [place] # (Auto) Eos # (Auto) Baso # (Auto) Hypersegmented Neuts RBC Morphology Microcytosis Rouleaux Sodium Potassium Chloride Carbon Dioxide BUN Creatinine Estimated GFR BUN/Creatinine Ratio Glucose POC Whole Bld Glucose 146 H D 177 H Hemoglobin A1c Calcium Magnesium TSH PFSH Medical History Chronic respiratory failure with hypoxia Skin cancer NSTEMI (non-ST elevated myocardial infarction) Diastolic heart failure Cardiac arrest Chest pain Hypertension Hyperlipidemia Coronary artery disease Left hamstring muscle strain UTI (urinary tract infection) Surgical History H/O right heart catheterization History of breast implant removal History of breast surgery History of appendectomy History of cholecystectomy History of total abdominal hysterectomy History of coronary artery stent placement Family History Father Hypertension Diabetes mellitus Mother Hypertension NE (myocardial infarction) Sister NE (myocardial infarction) S/P CABG x 4 Social History household members: children Smoking Status: Never smoker alcohol intake: never Assessment & Plan Time-Based Coding :: 40 minutes spent with patient and on the chart (including review of chart, obtaining history, exam, reviewing outside data, placing orders, documenting exam and treatment plan, and counseling patient) on [DATE].
--- NOTE | 2025-04-24 15:37 | CM.DPC ---
DCP Cont: Per MD, pt making slow progress and likely another day before stable for discharge home with family and HH. Pt already open with [facility] and currently just need d/c summary faxed and Resumption Orders at d/c. DONNELL Erickson
--- NOTE | 2025-04-24 16:42 | OT.IP.TRT ---
Current Diagnoses Sepsis, unspecified organism (04/17/25) Heart failure, unspecified (04/17/25) Pneumonia, unspecified organism (04/17/25) Other specified abnormal findings of blood chemistry (04/17/25) Occupational Therapy Treatment Note M2 OT-IP Current Condition Start: 04/18/25 17:14 Freq: Status: Active Protocol: Document 04/18/25 17:14 [facility] (Rec: 04/18/25 17:40 [facility] Desktop) Occupational Therapy Current Condition Current Condition Evaluation Date 04/18/25 Treatment Diagnosis Acute Exacerbation if COPD Diagnosis Onset Date 04/17/25 M3 OT- IP Subjective and Pain Start: 04/18/25 17:14 Freq: Status: Active Protocol: Document 04/24/25 16:10 [facility] (Rec: 04/24/25 16:41 [facility] Desktop) OT- Subjective Occupational Therapy Visit Type Type Treatment Note Visit Start Time 16:10 Visit Stop Time 16:30 Occupational Therapy Visit Comments Patient Comments Pt with nsg having finished using BSC on entrance of OT . Pt declined performing LB dressing with AE or additional ADLs due to having sat up for 3 hours and being tired. Agreed to have OT assist with functional mobility back to bed. Patient/Caregiver TO go home. Goals OT Pain Assessment Pain When Pain Assessed At Rest Pain Present Pain Present Denied Pain M4 OT- IP ADL's Start: 04/18/25 17:14 Freq: Status: Active Protocol: Document 04/24/25 16:10 [facility] (Rec: 04/24/25 16:41 [facility] OT [id number] Comments OT Self-Feeding Not at meal time. Comments OT ADL-Grooming Comments OT Grooming Comments Not observed. OT ADL-Oral Care Comments Oral Care Comments Not performed. OT ADL-Dressing General Eval Lower Body Dressing Maximum Assistance Ability Areas Needing Underpants/Brief,Socks Assistance OT ADL-Toileting Comments OT Toileting On entrance, nsg research program assistant was completing performing Comments hygiene and attaching brief. Per pt and nsg, pt was unable to assist with either today. OT ADL-Bathing Comments OT Bathing Comments not observed M5 OT- IP IADL's Start: 04/18/25 17:14 Freq: Status: Active Protocol: Document 04/18/25 17:14 [facility] (Rec: 04/18/25 17:40 [facility] Desktop) OT-Instrumental Activities of Daily Living Home Safety Awareness Awareness of Need Good Awareness for Assistance at Home Meal Preparation Meal Preparation Caregiver Provides Assist A P Supervisor A P Supervisor Caregiver Provides Assist M6 OT- IP Functional Cognition Start: 04/18/25 17:14 Freq: Status: Active Protocol: Document 04/22/25 16:55 [facility] (Rec: 04/22/25 17:06 [facility] Desktop) Cognitive Factors Limiting Selfcare Function Cognitive Comments Cognitive Assessment Pt able to follow commands for ADL and mobility needs. Comments Pt needing lots of encouragement to participate and agreed to getting up. M7 OT- IP Mobility and Balance Start: 04/18/25 17:14 Freq: Status: Active Protocol: Document 04/24/25 16:10 [facility] (Rec: 04/24/25 16:41 [email or web address] Desktop) OT- Bed Mobility Assessment Sit to Supine Sit to Supine Assist Moderate Assistance OT-Transfer Assessment Sit to and From Stand Sit to and from Contact Guard Assistance Stand Transfers Transfer Ability Contact Guard Assistance Technique Transfer Destination Bed Transfer Technique Stand Step Pivot Devices Transfer Assistive Gait Belt,Front Wheeled Walker Devices Comments Mobility Comments Pt performs sit>stand with CGA and amb with FWW to EOB. Pt returns to sitting with good safety awareness and CGA. Pt requires MOD A to lift B LEs when returning to supine and MIN A to adjust her shoulders in bed. OT- Gait Assessment Gait Gait Assistance Contact Guard Assist Required: Distance (Feet) 7 Comments Gait Ability Pt amb with FWW from BSC to bed. Comments OT- Balance Assessment Sitting Balance and Reactions Static Sitting Good Balance Ability Dynamic Sitting Good Balance Ability Standing Balance and Reactions Static Standing Fair Balance Ability Dynamic Standing Fair Balance Ability M8 OT- IP Objective Assessments Start: 04/18/25 17:14 Freq: Status: Active Protocol: Document 04/18/25 17:14 [facility] (Rec: 04/18/25 17:40 [facility] Desktop) OT Gross Range of Motion Upper Extremity Range of Motion Assessment Bilaterally Impaired ROM Impairments RUE 0-90, LUE 0-80 OT Strength Upper Extremity Strength Assessment Bilaterally Impaired M9 OT- IP Assessment and Plan Start: 04/18/25 17:14 Freq: Status: Active Protocol: Document 04/24/25 16:10 [facility] 04[facility]24/25 [facility]41 [facility] Summary Assessment and Plan Potential Rehabilitation Fair Potential Analytic Complexity Moderate at Evaluation Summary OT Impairments Pain,Strength,Balance,Functional Mobility,Dressing, Toileting,Bathing,Toilet Transfers,Activity Tolerance Progress Towards Slow Progress due to Pain,Slow Progress due to Medical Goals Issues,Slow Progress due to Activity Tolerance Assessment Summary Pt reports that she sat up for three hours today and is too tired to practice LB dressing for improved I with home use. OT discussed pt's toileting situation at home . Pt reports that she uses a toileting aid to wipe herself at home. Pts functional mobility was CGA today with MOD A to return from sit>supine for LEs. Pt declines all ADL tasks at this time. Pt left reclined in bed with all needs met and in reach. Cont per established POC. Pt to go home with 24/7 assist and resume home health when medically stable. Goals Dressing Goal Moderate Assistance Toileting Goal Standby Assistance Bathing Goal Moderate Assistance Toilet Transfer Goal Independent Days to Meet Goals 5 Frequency of Treatment Other frequency 5x/wk Treatment Plan OT Treatment Plan ADL Training,Functional Mobility,Patient/Family Education,Discharge Planning Discharge Recommendations OT Discharge Home with 24/7 Assist Available,Home Health Recommendations Transportation Needs Private Vehicle at Discharge
[2025-04-24] MEDS: BENZOCAINE/MENTHOL 1 LOZ PKT 1 EACH PO (21:26)
[2025-04-24] MEDS: BENZONATATE 100 MG CAPSULE PO (21:27)
[2025-04-24] MEDS: INSULIN GLARGINE 100 UNIT/ML 3ML PEN 40 UNIT SUBCUT (21:28)
[2025-04-24] MEDS: ATORVASTATIN 20 MG TABLET 80 MG PO (21:29)
[2025-04-25] MEDS: FUROSEMIDE 40 MG/4 ML VIAL IV ×2 (00:15→08:10)
[2025-04-25] MEDS: BENZOCAINE/MENTHOL 1 LOZ PKT 1 EACH PO (07:41)
[2025-04-25] MEDS: CODEINE/guaiFENesin LIQUID 5 ML UDC 10 ML PO ×2 (07:42→21:59)
[2025-04-25] MEDS: BENZONATATE 100 MG CAPSULE PO (07:42)
[2025-04-25] MEDS: ALBUTEROL/IPRATROPIUM 3 ML AMPUL INH ×3 (07:43→19:36)
[2025-04-25 08:00] VITALS: BP 151/60; PULSE 58; RESP 17; TEMP 36.3; O2SAT 97
[2025-04-25] MEDS: INSULIN LISPRO 100 UNIT/ML 3ML VIAL SUBCUT ×4 (08:03→22:39)
[2025-04-25] MEDS: METOPROLOL IR 25 MG TABLET 12.5 MG PO ×2 (08:10→21:58)
[2025-04-25] MEDS: RANOLAZINE 500 MG TAB.ER.12H PO ×2 (08:10→22:35)
[2025-04-25] MEDS: PANTOPRAZOLE DR 40 MG TABLET PO (08:10)
[2025-04-25] MEDS: ESCITALOPRAM 10 MG TABLET 20 MG PO (08:10)
[2025-04-25] MEDS: ASPIRIN EC 81 MG TABLET PO (08:10)
[2025-04-25] MEDS: NYSTATIN CREAM 30 GM 1 APPLIC TOP ×2 (08:11→21:59)
[2025-04-25] MEDS: HEPARIN 5,000 UNIT/ML VIAL 5000 UNIT SUBCUT ×2 (08:15→21:57)
[2025-04-25] MEDS: methylPREDNISolone succ 40 MG/ML VIAL 20 MG IV ×2 (08:19→16:56)
[2025-04-25] MEDS: SODIUM CHLORIDE 0.9% FLUSH 10 ML IV ×2 (08:20→22:35)
--- NOTE | 2025-04-25 11:02 | PT-IP ANOTE ---
Pt refused PT treatment secondary to fatigue. Education given on importance to maintain strength and that PT will continue to try later today. Daughter visiting in room.
--- NOTE | 2025-04-25 11:24 | PC.NURSE ---
Report given to Johnny Wren RN
--- NOTE | 2025-04-25 11:48 | OT.IPNOTE ---
Lida was not agreeable to OT treatment at this time. Visitor informed OT that Lida wanted her to tell everyone to just go away; this information reportedly was also conveyed to inpatient PT.
--- NOTE | 2025-04-25 12:12 | CM.DPC ---
DCP Cont. Reviewed EMR and team rounds for pt's medical status and updates. Per Hospitalist, pt will need 1-more day prior to being medically stable for home d/c. Will need [facility] resumption of care orders sent at d/c.
[2025-04-25 13:27] VITALS: PULSE 60; RESP 18; O2SAT 99
[2025-04-25 16:00] VITALS: BP 142/44; PULSE 68; RESP 20; TEMP 35.6; O2SAT 98
--- NOTE | 2025-04-25 16:01 | PM.PN.1 ---
Subjective Subjective Interval history: Subjective 89-year-old female with past medical history of chronic diastolic heart failure, coronary artery disease status post 6 stents, COPD with chronic 3 L of oxygen via nasal cannula, insulin-dependent diabetes, hyperlipidemia and hypertension who presented on 04/17/2025 with a several day history of increasing shortness of breath and hypoxia despite increasing oxygen to 4 L via nasal cannula. Patient feels slightly better today. Thinks that she is getting back to her baseline, shortness of breath decreased, feels the weight and edema are not significantly different. Oxygen requirements are at 2-3 L which is her prior baseline. She is actually up and sitting in the chair today for the 1st time. Objective Vitals reviewed and notable only for systolic blood pressure 152 Alert and oriented, no acute distress Oropharynx moist Regular rate and rhythm without murmurs left basilar rales, o/w CTA, nl WOB Abdomen soft, nondistended Diffuse nonpitting edema bilateral lower extremities, left arm bruising present Labs -no new labs Assessment and plan Acute chronic diastolic congestive heart failure with acute on chronic hypoxic respiratory failure Acute exacerbation of COPD, slowly resolving -continue diuresis but transition to oral lasix -continue metoprolol, ranolazine and lisinopril -continue methylprednisolone today, transition to prednisone tomorrow -continue bronchodilators -continue meds for symptom management -encourage patient to be out of bed -recheck renal function and K in the am Community-acquired pneumonia Rhino virus infection Patient completed an appropriate course of antibiotics. No additional treatment needed for community-acquired pneumonia. -continue isolation for rhinovirus Coronary artery disease Clinically stable, no sign of complication -continue aspirin, atorvastatin, metoprolol, and ranolazine Morbid obesity Contributes to comorbid conditions, complicates management and recovery, impacts mobility Insulin-dependent diabetes mellitus Hemoglobin A1c 7.1, suboptimal control in the setting of steroid use. Blood sugar should improve as steroids are decreased and discontinued. -continue current doses of lispro, increase dose of lantus DVT prophylaxis: Subcutaneous heparin Exam Vital Signs (past 8 hours): - 04/25/25 13:27 Pulse Rate 60 Respiratory Rate 18 Pulse Oximetry 99 Oxygen Delivery Method Nasal Cannula Oxygen Flow Rate 3 Fraction of Inspired Oxygen 32 Fraction of Inspired Oxygen 32 SaO2/FiO2 Ratio 303 Oxygen Delivery Method Nasal Cannula Oxygen Flow Rate 3 Objective Labs 04/24/25 07:00 04/24/25 07:00 Labs: Laboratory Results - last 24 hr 04/24/25 04/24/25 04/25/25 16:33 21:02 07:48 POC Whole Bld Glucose 104 H 180 H 137 H 04/25/25 11:49 POC Whole Bld Glucose 193 H PFSH Medical History Chronic respiratory failure with hypoxia Skin cancer NSTEMI (non-ST elevated myocardial infarction) Diastolic heart failure Cardiac arrest Chest pain Hypertension Hyperlipidemia Coronary artery disease Left hamstring muscle strain UTI (urinary tract infection) Surgical History H/O right heart catheterization History of breast implant removal History of breast surgery History of appendectomy History of cholecystectomy History of total abdominal hysterectomy History of coronary artery stent placement Family History Father Hypertension Diabetes mellitus Mother Hypertension MD (myocardial infarction) Sister MD (myocardial infarction) S/P CABG x 4 Social History household members: children Smoking Status: Never smoker alcohol intake: never Assessment & Plan Time-Based Coding :: [TOTAL MINUTES] spent with patient and on the chart (including review of chart, obtaining history, exam, reviewing outside data, placing orders, documenting exam and treatment plan, and counseling patient) on [DATE].
[2025-04-25] MEDS: FUROSEMIDE 20 MG TABLET 60 MG PO (16:57)
[2025-04-25 16:59] LABS: Add Manual Diff / Slide Review NO; Hematocrit 35.4 % (36-46); Hemoglobin 11.2 g/dL (12.0-16.0); Lymphocytes Absolute Auto 1000 /uL (1100-4500); Mean Corpuscular HGB Conc 31.5 % (30-36); Mean Corpuscular Hemoglobin 23.1 PG (26-34); Mean Corpuscular Volume 73.2 fL (80-100); Platelet Count 265 X10^3/uL (150-400)
[2025-04-25] MEDS: INSULIN LISPRO 100 UNIT/ML 3ML VIAL 16 UNIT SUBCUT (17:04)
[2025-04-25 17:16] LABS: Blood Urea Nitrogen 52 mg/dL (7-17); Calcium 9.3 mg/dL (8.4-10.2); Carbon Dioxide 35 mmol/L (22-32); Chloride 96 mmol/L (98-107); Estimated Glomerular Filt Rate 43 mL/min (>60); Glucose 239 mg/dL (70-99); HEMOLYSIS < 15 (0-50); Magnesium 2.1 mg/dL (1.6-2.3); Potassium 3.9 mmol/L (3.4-5.1); Sodium 134 mmol/L (137-145)
[2025-04-25 19:36] VITALS: PULSE 70; RESP 16; O2SAT 97
[2025-04-25 20:00] VITALS: BP 119/38; PULSE 70; RESP 20; TEMP 36.6; O2SAT 96
[2025-04-25] MEDS: ATORVASTATIN 20 MG TABLET 80 MG PO (21:54)
[2025-04-25] MEDS: INSULIN GLARGINE 100 UNIT/ML 3ML PEN 45 UNIT SUBCUT (22:34)
[2025-04-26] VITALS (7 sets, daily range): BP systolic 148–176; BP diastolic 52–63; PULSE 60–78; RESP 16–17; TEMP 36.1–36.8; O2SAT 97–100
[2025-04-26] MEDS: INSULIN LISPRO 100 UNIT/ML 3ML VIAL 16 UNIT SUBCUT ×3 (07:57→16:50)
[2025-04-26] MEDS: INSULIN LISPRO 100 UNIT/ML 3ML VIAL SUBCUT ×4 (07:58→20:33)
[2025-04-26] MEDS: ASPIRIN EC 81 MG TABLET PO (08:14)
[2025-04-26] MEDS: METOPROLOL IR 25 MG TABLET 12.5 MG PO ×2 (08:14→20:15)
[2025-04-26] MEDS: HEPARIN 5,000 UNIT/ML VIAL 5000 UNIT SUBCUT ×2 (08:14→20:30)
[2025-04-26] MEDS: ESCITALOPRAM 10 MG TABLET 20 MG PO (08:15)
[2025-04-26] MEDS: SODIUM CHLORIDE 0.9% FLUSH 10 ML IV ×2 (08:15→22:27)
[2025-04-26] MEDS: RANOLAZINE 500 MG TAB.ER.12H PO ×2 (08:15→20:15)
[2025-04-26] MEDS: PANTOPRAZOLE DR 40 MG TABLET PO (08:15)
[2025-04-26] MEDS: methylPREDNISolone succ 40 MG/ML VIAL 20 MG IV ×2 (08:29→16:53)
[2025-04-26] MEDS: FUROSEMIDE 20 MG TABLET 60 MG PO (08:30)
[2025-04-26] MEDS: ALBUTEROL/IPRATROPIUM 3 ML AMPUL INH ×2 (08:50→19:33)
--- NOTE | 2025-04-26 10:46 | P.PN_ITS ---
Subjective Subjective Interval history: Subjective 89-year-old female with past medical history of chronic diastolic heart failure, coronary artery disease status post 6 stents, COPD with chronic 3 L of oxygen via nasal cannula, insulin-dependent diabetes, hyperlipidemia and hypertension who presented on 04/17/2025 with a several day history of increasing shortness of breath and hypoxia despite increasing oxygen to 4 L via nasal cannula. Patient had been slowly improving over the last couple of days. However over the last 24 hours, she reports increased shortness of breath and more respiratory fatigue. She also notes that she is now expectorating green sputum and has pain with coughing in the right lower ribs. This coincides with the transition from IV to oral Lasix. She denies chest pain or chest pressure. No nausea or vomiting. Tolerating p.o. intake. Objective Vitals reviewed and notable only for systolic blood pressure 152 Alert and oriented, no acute distress Oropharynx moist Regular rate and rhythm without murmurs Rales bilateral bases to mid, increased work of breathing Abdomen soft, nondistended Diffuse nonpitting edema bilateral lower extremities, left arm bruising present Labs: No new labs today. Labs yesterday notable only for creatinine 1.22 Imaging: No new imaging in the last 24 hours. Assessment and plan Acute chronic diastolic congestive heart failure with acute on chronic hypoxic respiratory failure Acute exacerbation of COPD, slowly resolving -transitioned back from oral to IV Lasix. -continue metoprolol, ranolazine and lisinopril -transitioned to prednisone this morning -continue bronchodilators -continue meds for symptom management -encourage patient to be out of bed -recheck renal function and K in the am Community-acquired pneumonia Rhino virus infection Patient completed an appropriate course of antibiotics. No additional treatment needed for community-acquired pneumonia. -continue isolation for rhinovirus -recheck chest x-ray due to recurrence of green sputum and increased rales Coronary artery disease Clinically stable, no sign of complication -continue aspirin, atorvastatin, metoprolol, and ranolazine Morbid obesity Contributes to comorbid conditions, complicates management and recovery, impacts mobility Insulin-dependent diabetes mellitus Hemoglobin A1c 7.1, suboptimal control in the setting of steroid use. Blood sugar should improve as steroids are decreased and discontinued. -continue current doses of lispro, increased dose of lantus on 04/25-if blood glucose remains elevated as steroids are tapered, may need to increase Lantus in the next 24-48 hours. DVT prophylaxis: Subcutaneous heparin Discharge planning: Anticipate patient will need another 24-48 hours in the hospital as she did not tolerate the decrease Lasix dose. Exam Vital Signs (past 8 hours): - 04/26/25 04:00 04/26/25 08:09 04/26/25 08:14 Temperature 98.2 F 97.7 F Pulse Rate 68 60 Respiratory Rate 16 16 Blood Pressure 176/63 H 151/60 H 151/60 H Pulse Oximetry 99 100 Oxygen Flow Rate 3 Fraction of Inspired Oxygen 04/26/25 08:50 Temperature Pulse Rate 68 Respiratory Rate 16 Blood Pressure Pulse Oximetry 99 Oxygen Flow Rate 3 Fraction of Inspired Oxygen 24 Fraction of Inspired Oxygen 24 SaO2/FiO2 Ratio 404 Oxygen Delivery Method Nasal Cannula Oxygen Flow Rate 3 Objective Labs 04/25/25 16:42 04/25/25 16:42 Labs: Laboratory Results - last 24 hr 04/25/25 04/25/25 04/25/25 11:49 16:42 17:03 WBC 14.6 H RBC 4.83 Hgb 11.2 L Hct 35.4 L MCV 73.2 L MCH 23.1 L MCHC 31.5 RDW 21.9 H Plt Count 265 Neut % (Auto) 89.2 H Lymph % (Auto) 6.[address] [place] % (Auto) 4.1 Eos % (Auto) 0.0 L Baso % (Auto) 0.1 Neut # (Auto) 60044 H Lymph # (Auto) [address] [place] # (Auto) 600 Eos # (Auto) 0 Baso # (Auto) 0 Sodium 134 L Potassium 3.9 Chloride 96 L Carbon Dioxide 35 H BUN 52 H Creatinine 1.22 H Estimated GFR 43 L BUN/Creatinine Ratio 42.6 H Glucose 239 H D POC Whole Bld Glucose 193 H 345 H D Calcium 9.3 Magnesium 2.1 04/25/25 04/25/25 04/26/25 21:48 22:36 07:28 WBC RBC Hgb Hct MCV MCH MCHC RDW Plt Count Neut % (Auto) Lymph % (Auto) [place] % (Auto) Eos % (Auto) Baso % (Auto) Neut # (Auto) Lymph # (Auto) [place] # (Auto) Eos # (Auto) Baso # (Auto) Sodium Potassium Chloride Carbon Dioxide BUN Creatinine Estimated GFR BUN/Creatinine Ratio Glucose POC Whole Bld Glucose 284 H 287 H 166 H D Calcium Magnesium PFSH Medical History Chronic respiratory failure with hypoxia Skin cancer NSTEMI (non-ST elevated myocardial infarction) Diastolic heart failure Cardiac arrest Chest pain Hypertension Hyperlipidemia Coronary artery disease Left hamstring muscle strain UTI (urinary tract infection) Surgical History H/O right heart catheterization History of breast implant removal History of breast surgery History of appendectomy History of cholecystectomy History of total abdominal hysterectomy History of coronary artery stent placement Family History Father Hypertension Diabetes mellitus Mother Hypertension [place] (myocardial infarction) Sister [place] (myocardial infarction) S/P CABG x 4 Social History household members: children Smoking Status: Never smoker alcohol intake: never Assessment & Plan Time-Based Coding :: [TOTAL MINUTES] spent with patient and on the chart (including review of chart, obtaining history, exam, reviewing outside data, placing orders, documenting exam and treatment plan, and counseling patient) on [DATE].
--- NOTE | 2025-04-26 11:01 | DI.RAD.S_ITS ---
PROCEDURE: XR CHEST 1V INDICATIONS: increase respiratory distress, pleuritic right lower pain TECHNIQUE: One view of the chest was acquired. COMPARISON: [facility], CR, XR CHEST 1V, 03/17/2025, 19:44. FINDINGS: Surgical changes and devices: None. Lungs and pleura: Lungs are clear. No pleural effusions or pneumothorax. Mediastinum: Mediastinal contours appear normal. Heart size is enlarged. Bones and chest wall: No suspicious bony lesions. Overlying soft tissues appear unremarkable. IMPRESSION: Cardiomegaly. No evidence acute pulmonary process. Dictated by: Carlito Pugh M.D. on 04/26/2025 at 11:22 Approved by: Carlito Pugh M.D. on 04/26/2025 at 11:23
--- NOTE | 2025-04-26 11:49 | PT.IPTN ---
Current Diagnoses Sepsis, unspecified organism (04/17/25) Heart failure, unspecified (04/17/25) Pneumonia, unspecified organism (04/17/25) Other specified abnormal findings of blood chemistry (04/17/25) Physical Therapy Treatment Note M2 PT-IP Current Condition Start: 04/19/25 12:48 Freq: NEEDED Status: Active Protocol: Document 04/26/25 11:22 SP (Rec: 04/26/25 12:00 SP Laptop) Physical Therapy Current Condition Current Condition Evaluation Date 04/19/25 Treatment Diagnosis SOB, weakness Onset Date 04/16/25 M3 PT-IP Subjective Start: 04/19/25 12:48 Freq: NEEDED Status: Active Protocol: Document 04/26/25 11:22 SP (Rec: 04/26/25 12:00 SP Laptop) Subjective Physical Therapy Visit Type Type Treatment Note Visit Start Time 11:22 Visit Stop Time 11:49 Notes Daughter in room, observed tx. Number of ENVELOPE MACHINE OPERATOR Visits 1 Physical Therapy Visit Comments Patient Comments Pt agreeable to working with ENVELOPE MACHINE OPERATOR. Patient Goals To go home with family to assist her. M4 PT-IP Mobility and Gait Start: 04/19/25 12:48 Freq: NEEDED Status: Active Protocol: Document 04/26/25 11:22 SP (Rec: 04/26/25 12:00 SP Laptop) PT-Bed Mobility Assessment Supine to Sit Supine to Sit Standby Assistance,1 Person Assistance,Head of Bed Elevated,Bedrails Scooting Scooting to Edge of Contact Guard Assistance,Minimal Assistance Bed PT-Transfer Assessment Sit to and From Stand Sit to and from Contact Guard Assistance,1 Person Assistance,Use of Stand Upper Extremities Equipment Transfer Assistive Gait Belt,Front Wheeled Walker Device Transfers Transfer Destination Chair,Bedside Commode Transfer Technique Stand Step Pivot Transfer Ability Level of Assist Contact Guard Assistance,Use of Upper Extremities Comments Mobility Comments Pt required added assist to scoot to EOB. CGA rest of mobility STS from EOB, SSPT transfer with FWW bed>BSC> chair. Pt requires total assist for pericare after BM and brief mgt. Pt tires quickly between mobility, requires rest and breath recovery. Vitals: BP 131/37 HR 67 SaO2 98% pre mobility and low-mid90s on 3L during mobility. Pt was up in chair with all needs including callight in reach, daughter in room before left. ENVELOPE MACHINE OPERATOR notified assist of commode end of tx. Gait Assessment Comments Gait Comments self selects not to ambulate today, 2 transfers with FWW, CGA. ENVELOPE MACHINE OPERATOR managed O2 line Stair Climbing Assessment Comments Stair Climbing non applicable, has ramp to enter home. Comments PT-Balance Assessment Sitting Balance and Reactions Static Sitting Normal Balance Ability Dynamic Sitting Good Balance Ability Standing Balance and Reactions Static Standing Good Balance Ability Dynamic Standing Fair Balance Ability Device Used FWW M5 PT-IP Objective Assessments Start: 04/19/25 12:48 Freq: NEEDED Status: Active Protocol: Document 04/19/25 10:32 SAK (Rec: 04/19/25 13:04 SAK [id number]) Orientation Orientation/Cognition Level of Alertness Alert Orientation Name,Age,Birthday,Month,Year,Situation Language Function No Deficits Noted Ability Safety Awareness Understands Safety Issues Memory Description No Deficits Noted Gross Range of Motion Upper Extremity ROM Assessment Within Functional Limits Lower Extremity ROM Assessment Within Functional Limits Strength Upper Extremity Strength Assessment Bilaterally Impaired Lower Extremity Strength Assessment Bilaterally Impaired Comments Strength Comments No MMT performed due to patient high fatigue level with SOB. AROM assessed as above. Coordination Assessment Gross Coordination Gross Coordination WNL Sensation Assessment Sensation Gross Sensation WNL M6 PT-IP Treatment Start: 04/19/25 12:48 Freq: NEEDED Status: Active Protocol: Document 04/26/25 11:22 SP (Rec: 04/26/25 12:00 SP Laptop) Physical Therapy Treatment Exercises Exercises Ankle Pumps,Heel Slides,Seated Knee Flexion/Extension M7 PT-IP Assessment and Plan Start: 04/19/25 12:48 Freq: NEEDED Status: Active Protocol: Document 04/26/25 11:22 SP (Rec: 04/26/25 12:00 SP Laptop) PT Summary Assessment and Plan Potential Rehabilitation Good Potential Status of Condition Stable at Evaluation Summary Impairments Strength,Balance,Bed Mobility,Transfers,Gait,Activity Tolerance Progress Towards Slow Progress due to Activity Tolerance Goals Assessment Summary Lida decreased assist needed, CG/Min A during bed mobility, CGA with FWW during transfers bed>BSC>chair, total assist with pericare and brief mgt. Declines further gait inroom after transfers, decreased endurance and strength. Vitals WNL use of 3L O2. Pt has adequate home support to discharge home with home health as she refuses to go to a SNF. Goals Bed Mobility Goal Standby Assistance Transfer Goal Standby Assistance Gait Goal Standby Assistance Gait Distance 100 Days to Meet Goals 10 Frequency of Treatment Frequency Of Once a Day Treatment Treatment Plan Physical Therapy Bed Mobility Training,Transfer Training,Gait Training, Treatment Plan Therapeutic Exercise,Discharge Planning Other Continue to work on mobility needed to go home. Recommendations and Next Treatment Focus Precautions Other Precautions 3 LPM oxygen at baseline BP Weight Bearing Status Weight Bearing Full Weight Bearing Status Recommendations To Nursing Amount of Assist 1 Person Assist Needed Discharge Recommendations PT Discharge Home with Assistance,Home with 05/12 Assist Available, Recommendations Home Health Other Discharge Pt refusing to go to SNF. If pt goes home recommending Recommendations HH to continue. Equipment Needed for FWW as pt only has 4WW and power chair. Home Before Discharge Transportation Needs Wheelchair/Cabulance at Discharge - PT assist 1
[2025-04-26] MEDS: CODEINE/guaiFENesin LIQUID 5 ML UDC 10 ML PO ×2 (12:01→20:03)
--- NOTE | 2025-04-26 12:14 | CM.DPC ---
DCP Cont: Per MD, pt did not tolerate reduction in Lasix and had increased sputum and painful cough increased. Plan for likely d/c home tomorrow Monday with ongoing [facility]. Pt and family historically and currently decline SNF. DONNELL Erickson
[2025-04-26] MEDS: FUROSEMIDE 40 MG/4 ML VIAL IV ×2 (14:29→20:14)
[2025-04-26] MEDS: ATORVASTATIN 20 MG TABLET 80 MG PO (20:14)
[2025-04-26] MEDS: INSULIN GLARGINE 100 UNIT/ML 3ML PEN 45 UNIT SUBCUT (20:29)
[2025-04-27] MEDS: BENZOCAINE/MENTHOL 1 LOZ PKT 1 EACH PO (00:07)
[2025-04-27 04:00] VITALS: BP 145/53; PULSE 85; RESP 16; O2SAT 98
[2025-04-27] MEDS: FUROSEMIDE 40 MG/4 ML VIAL IV ×4 (04:33→20:18)
[2025-04-27 06:09] LABS: Hematocrit 33.1 % (36-46); Hemoglobin 10.5 g/dL (12.0-16.0); Mean Corpuscular HGB Conc 31.9 % (30-36); Mean Corpuscular Hemoglobin 23.3 PG (26-34); Mean Corpuscular Volume 73.2 fL (80-100); Platelet Count 227 X10^3/uL (150-400)
[2025-04-27 06:20] LABS: Blood Urea Nitrogen 47 mg/dL (7-17); Calcium 9.1 mg/dL (8.4-10.2); Carbon Dioxide 36 mmol/L (22-32); Chloride 100 mmol/L (98-107); Estimated Glomerular Filt Rate 49 mL/min (>60); Glucose 123 mg/dL (70-99); HEMOLYSIS < 15 (0-50); Potassium 3.7 mmol/L (3.4-5.1); Sodium 138 mmol/L (137-145)
[2025-04-27 06:55] LABS: Magnesium 2.2 mg/dL (1.6-2.3)
[2025-04-27] MEDS: RANOLAZINE 500 MG TAB.ER.12H PO ×2 (08:59→20:18)
[2025-04-27] MEDS: ESCITALOPRAM 10 MG TABLET 20 MG PO (08:59)
[2025-04-27] MEDS: ASPIRIN EC 81 MG TABLET PO (08:59)
[2025-04-27] MEDS: PANTOPRAZOLE DR 40 MG TABLET PO (09:00)
[2025-04-27] MEDS: SODIUM CHLORIDE 0.9% FLUSH 10 ML IV ×2 (09:00→20:24)
[2025-04-27] MEDS: METOPROLOL IR 25 MG TABLET 12.5 MG PO ×2 (09:00→20:14)
[2025-04-27] MEDS: HEPARIN 5,000 UNIT/ML VIAL 5000 UNIT SUBCUT ×2 (09:00→20:16)
[2025-04-27 09:05] VITALS: PULSE 81; RESP 16; O2SAT 99
[2025-04-27] MEDS: ALBUTEROL/IPRATROPIUM 3 ML AMPUL INH ×2 (09:05→19:26)
[2025-04-27] MEDS: CODEINE/guaiFENesin LIQUID 5 ML UDC 10 ML PO ×2 (11:29→20:18)
[2025-04-27 12:00] VITALS: BP 164/66; PULSE 66; RESP 18; TEMP 36.2; O2SAT 99
[2025-04-27] MEDS: INSULIN LISPRO 100 UNIT/ML 3ML VIAL SUBCUT ×3 (12:12→20:20)
[2025-04-27] MEDS: INSULIN LISPRO 100 UNIT/ML 3ML VIAL 16 UNIT SUBCUT ×2 (12:12→17:03)
--- NOTE | 2025-04-27 15:47 | PT.IPTN ---
Current Diagnoses Sepsis, unspecified organism (04/17/25) Heart failure, unspecified (04/17/25) Pneumonia, unspecified organism (04/17/25) Other specified abnormal findings of blood chemistry (04/17/25) Physical Therapy Treatment Note M2 PT-IP Current Condition Start: 04/19/25 12:48 Freq: NEEDED Status: Active Protocol: Document 04/26/25 11:22 SP (Rec: 04/26/25 12:00 SP Laptop) Physical Therapy Current Condition Current Condition Evaluation Date 04/19/25 Treatment Diagnosis SOB, weakness Onset Date 04/16/25 M3 PT-IP Subjective Start: 04/19/25 12:48 Freq: NEEDED Status: Active Protocol: Document 04/27/25 16:38 NW (Rec: 04/27/25 16:44 NW [id number]) Subjective Physical Therapy Visit Type Type Treatment Note Visit Start Time 15:15 Visit Stop Time 15:47 Notes Daughter in room. Number of JOB DEVELOPER FOR DEAF ADULTS Visits 1 Physical Therapy Visit Comments Patient Comments Pt agreeable to participate. Declines ambulation. Patient Goals Go home with family assistance. M4 PT-IP Mobility and Gait Start: 04/19/25 12:48 Freq: NEEDED Status: Active Protocol: Document 04/27/25 16:38 NW (Rec: 04/27/25 16:44 NW [id number]) PT-Bed Mobility Assessment Supine to Sit Supine to Sit Standby Assistance,1 Person Assistance,Head of Bed Elevated,Bedrails Scooting Scooting to Edge of Contact Guard Assistance,Minimal Assistance Bed PT-Transfer Assessment Sit to and From Stand Sit to and from Contact Guard Assistance,1 Person Assistance,Use of Stand Upper Extremities Equipment Transfer Assistive Gait Belt,Front Wheeled Walker Device Transfers Transfer Destination Bed Transfer Technique side stepping Transfer Ability Level of Assist Contact Guard Assistance,Use of Upper Extremities Comments Mobility Comments Pt required similar amount of assistance with bed mobility and transfers as previous sessions of CGA. Oxygen remains stable > 96% throughout session. Gait Assessment Comments Gait Comments Pt was able to side step 3 ft at edge of bed with FWW at CGA. Stair Climbing Assessment Comments Stair Climbing non applicable, has ramp to enter home. Comments PT-Balance Assessment Sitting Balance and Reactions Static Sitting Normal Balance Ability Dynamic Sitting Good Balance Ability Standing Balance and Reactions Static Standing Good Balance Ability Dynamic Standing Fair Balance Ability Device Used FWW M5 PT-IP Objective Assessments Start: 04/19/25 12:48 Freq: NEEDED Status: Active Protocol: Document 04/19/25 10:32 SAK (Rec: 04/19/25 13:04 SAK [id number]) Orientation Orientation/Cognition Level of Alertness Alert Orientation Name,Age,Birthday,Month,Year,Situation Language Function No Deficits Noted Ability Safety Awareness Understands Safety Issues Memory Description No Deficits Noted Gross Range of Motion Upper Extremity ROM Assessment Within Functional Limits Lower Extremity ROM Assessment Within Functional Limits Strength Upper Extremity Strength Assessment Bilaterally Impaired Lower Extremity Strength Assessment Bilaterally Impaired Comments Strength Comments No MMT performed due to patient high fatigue level with SOB. AROM assessed as above. Coordination Assessment Gross Coordination Gross Coordination WNL Sensation Assessment Sensation Gross Sensation WNL M6 PT-IP Treatment Start: 04/19/25 12:48 Freq: NEEDED Status: Active Protocol: Document 04/27/25 16:38 NW (Rec: 04/27/25 16:44 NW [id number]) Physical Therapy Treatment Other Treatments Other Treatment standing marches 3 x 10 with FWW at edge of bed Performed M7 PT-IP Assessment and Plan Start: 04/19/25 12:48 Freq: NEEDED Status: Active Protocol: Document 04/27/25 16:38 NW (Rec: 04/27/25 16:44 NW [id number]) PT Summary Assessment and Plan Potential Rehabilitation Good Potential Status of Condition Stable at Evaluation Summary Impairments Strength,Balance,Bed Mobility,Transfers,Gait,Activity Tolerance Progress Towards Slow Progress due to Activity Tolerance Goals Assessment Summary Lida continues to decline ambulation in the room even with MD present. Able to perform bed mobility and STS with FWW at [facility] with consistent oxygen levels > 96%. Addition of marches while standing with notable fatigue with hip flexion upon 3rd round. Continue to recommend home health upon discharge with family present to assist. Goals Bed Mobility Goal Standby Assistance Transfer Goal Standby Assistance Gait Goal Standby Assistance Gait Distance 100 Days to Meet Goals 10 Frequency of Treatment Frequency Of Once a Day Treatment Treatment Plan Physical Therapy Bed Mobility Training,Transfer Training,Gait Training, Treatment Plan Therapeutic Exercise,Discharge Planning Other Continue to work on mobility needed to go home. Recommendations and Next Treatment Focus Precautions Other Precautions 3 LPM baseline oxygen Weight Bearing Status Weight Bearing Full Weight Bearing Status Recommendations To Nursing Amount of Assist 1 Person Assist Needed Discharge Recommendations PT Discharge Home with Assistance,Home with 05/12 Assist Available, Recommendations Home Health Other Discharge Pt refusing to go to SNF. If pt goes home recommending Recommendations HH to continue. Equipment Needed for FWW as pt only has 4WW and power chair. Home Before Discharge Transportation Needs Wheelchair/Cabulance at Discharge - PT assist 1
--- NOTE | 2025-04-27 15:51 | PM.PN.1 ---
Subjective Subjective Interval history: Subjective 89-year-old female with past medical history of chronic diastolic heart failure, coronary artery disease status post 6 stents, COPD with chronic 3 L of oxygen via nasal cannula, insulin-dependent diabetes, hyperlipidemia and hypertension who presented on 04/17/2025 with a several day history of increasing shortness of breath and hypoxia despite increasing oxygen to 4 L via nasal cannula. Patient had been slowly improving but on 04/25, lasix was changed to oral in preparation for discharge. On 04/26, patient had increased work of breathing and respiratory exam was worse with rales and wheezing. Lasix was transitioned back to IV on 04/26 and patient now feels better with less SOB. She denies chest pain or chest pressure. No nausea or vomiting. Tolerating p.o. intake. Worked with PT today. Stood at side of bed and marched in place Objective Vitals reviewed and notable only for systolic blood pressure 164, 99% on 3L Alert and oriented, no acute distress Oropharynx moist Regular rate and rhythm without murmurs CTA bilaterally Abdomen soft, nondistended Diffuse nonpitting edema bilateral lower extremities, left arm bruising present Labs: No new labs today. Labs yesterday notable only for creatinine 1.22 Imaging: No new imaging in the last 24 hours. Assessment and plan Acute chronic diastolic congestive heart failure with acute on chronic hypoxic respiratory failure Acute exacerbation of COPD, slowly resolving -transitioned back from oral to IV Lasix. -continue metoprolol -increase lisinopril to 40mg daily - if no response to this, could add oral hydralazine -transitioned to prednisone on 04/26 -continue bronchodilators -continue tessalon for cough -encourage patient to be out of bed -recheck renal function and K in the am Community-acquired pneumonia Rhino virus infection Patient completed an appropriate course of antibiotics. No additional treatment needed for community-acquired pneumonia. -continue isolation for rhinovirus Coronary artery disease Clinically stable, no sign of complication -continue aspirin, atorvastatin, metoprolol, and ranolazine Morbid obesity Contributes to comorbid conditions, complicates management and recovery, impacts mobility Insulin-dependent diabetes mellitus Hemoglobin A1c 7.1, suboptimal control in the setting of steroid use. Blood sugar should improve as steroids are decreased and discontinued. -continue current doses of lispro, increased dose of lantus on 04/25-if blood glucose remains elevated as steroids are tapered, may need to increase Lantus in the next 24-48 hours. DVT prophylaxis: Subcutaneous heparin Discharge planning: Anticipate patient will need another 24-48 hours in the hospital for continued diuresis and another attempt at transition to oral lasix. Patient needs to have HH PT/OT resumed at discharge. She does not want to go to a SNF. Exam Vital Signs (past 8 hours): - 04/27/25 09:05 04/27/25 12:00 Temperature 97.2 F L Pulse Rate 81 66 Respiratory Rate 16 18 Blood Pressure 164/66 H Pulse Oximetry 99 99 Oxygen Flow Rate 3 Fraction of Inspired Oxygen 32 Fraction of Inspired Oxygen 32 SaO2/FiO2 Ratio 300 Oxygen Delivery Method Nasal Cannula Oxygen Flow Rate 3 Objective Labs 04/27/25 04:48 04/27/25 04:48 Labs: Laboratory Results - last 24 hr 04/26/25 04/26/25 04/26/25 11:28 16:41 20:25 WBC RBC Hgb Hct MCV MCH MCHC RDW Plt Count Sodium Potassium Chloride Carbon Dioxide BUN Creatinine Estimated GFR BUN/Creatinine Ratio Glucose POC Whole Bld Glucose 190 H 287 H 278 H Calcium Magnesium 04/27/25 04/27/25 04/27/25 04:48 07:46 11:12 WBC 14.6 H RBC 4.52 Hgb 10.5 L Hct 33.1 L MCV 73.2 L MCH 23.3 L MCHC 31.9 RDW 21.8 H Plt Count 227 Sodium 138 Potassium 3.7 Chloride 100 Carbon Dioxide 36 H BUN 47 H Creatinine 1.10 H Estimated GFR 49 L BUN/Creatinine Ratio 42.7 H Glucose 123 H D POC Whole Bld Glucose 109 H D 212 H D Calcium 9.1 Magnesium 2.2 PFSH Medical History Chronic respiratory failure with hypoxia Skin cancer NSTEMI (non-ST elevated myocardial infarction) Diastolic heart failure Cardiac arrest Chest pain Hypertension Hyperlipidemia Coronary artery disease Left hamstring muscle strain UTI (urinary tract infection) Surgical History H/O right heart catheterization History of breast implant removal History of breast surgery History of appendectomy History of cholecystectomy History of total abdominal hysterectomy History of coronary artery stent placement Family History Father Hypertension Diabetes mellitus Mother Hypertension [place] (myocardial infarction) Sister [place] (myocardial infarction) S/P CABG x 4 Social History household members: children Smoking Status: Never smoker alcohol intake: never Assessment & Plan Time-Based Coding :: [TOTAL MINUTES] spent with patient and on the chart (including review of chart, obtaining history, exam, reviewing outside data, placing orders, documenting exam and treatment plan, and counseling patient) on [DATE].
[2025-04-27 19:26] VITALS: PULSE 81; RESP 16; O2SAT 100
[2025-04-27 20:00] VITALS: BP 136/41; PULSE 84; RESP 18; TEMP 35.7; O2SAT 98
[2025-04-27] MEDS: ATORVASTATIN 20 MG TABLET 80 MG PO (20:14)
[2025-04-27] MEDS: NYSTATIN CREAM 30 GM 1 APPLIC TOP (20:19)
[2025-04-27] MEDS: INSULIN GLARGINE 100 UNIT/ML 3ML PEN 35 UNIT SUBCUT (20:19)
[2025-04-27 23:11] VITALS: O2SAT 97
[2025-04-28] MEDS: CODEINE/guaiFENesin LIQUID 5 ML UDC 10 ML PO ×4 (01:24→23:06)
[2025-04-28] MEDS: FUROSEMIDE 40 MG/4 ML VIAL IV ×3 (02:19→14:47)
[2025-04-28 04:00] VITALS: BP 135/48; PULSE 68; RESP 16; TEMP 35.8; O2SAT 98
[2025-04-28] MEDS: INSULIN LISPRO 100 UNIT/ML 3ML VIAL SUBCUT ×3 (08:25→21:30)
[2025-04-28] MEDS: INSULIN LISPRO 100 UNIT/ML 3ML VIAL 16 UNIT SUBCUT ×3 (08:25→16:51)
[2025-04-28] MEDS: ESCITALOPRAM 10 MG TABLET 20 MG PO (08:26)
[2025-04-28] MEDS: ASPIRIN EC 81 MG TABLET PO (08:26)
[2025-04-28] MEDS: RANOLAZINE 500 MG TAB.ER.12H PO ×2 (08:26→21:22)
[2025-04-28] MEDS: METOPROLOL IR 25 MG TABLET 12.5 MG PO ×2 (08:26→21:25)
[2025-04-28] MEDS: PANTOPRAZOLE DR 40 MG TABLET PO (08:26)
[2025-04-28] MEDS: HEPARIN 5,000 UNIT/ML VIAL 5000 UNIT SUBCUT ×2 (08:27→21:23)
[2025-04-28] MEDS: SODIUM CHLORIDE 0.9% FLUSH 10 ML IV ×2 (08:27→22:03)
[2025-04-28 08:47] VITALS: BP 155/52; PULSE 69; RESP 16; TEMP 36.3; O2SAT 98
[2025-04-28] MEDS: ALBUTEROL/IPRATROPIUM 3 ML AMPUL INH ×2 (09:02→19:35)
[2025-04-28 09:03] VITALS: PULSE 72; RESP 16; O2SAT 99
--- NOTE | 2025-04-28 11:50 | DIET.PN1 ---
Dietary Progress Note Assessment: F/u. Pt with 100% PO intakes recently per recorded PO intakes. DFM reviewed for meal composition. BG was elevated over weekend. Currently, last POC 95. Currently on 35 units glargine, 16 units at meals lispro, and sliding scale. Continuing to monitor PO intakes and BG. Ht: 157.48 cm Wt: 112 kg BMI: 41.3 UBW: Last BM: 04/26/25 (04/26/25 18:00) MNA: Cirilo Score: 19 Diet: 04/17/25 Lunch caregiver tray [Courtesy Tray (Peds, comfort care)] Diet Modifications: 04/17/25 Dinner Carbohydrate Consistent Diet Diet Modifications: heart healthy Carbohydrate level: Medium (3 CHO) Reflex DM orders: No Food Texture: Level 7 - Regular Liquid Consistency: Level 0 - Thin Nutrition Percent Meal Consumed 100% 04/27/25 18:00 Percent Meal Consumed 100% 04/27/25 10:03 Percent Meal Consumed 100% 04/26/25 18:00 Labs: RBC 4.52 X10^6/uL (4.0-5.2) 04/27/25 04:48 Hgb 10.5 g/dL (12.0-16.0) L 04/27/25 04:48 Hct 33.1 % (36-46) L 04/27/25 04:48 Creatinine 1.10 mg/dL (0.52-1.04) H 04/27/25 04:48 Hemoglobin A1c 7.1 % (4.0-6.0) H 04/24/25 07:00 Lactate 2.1 mmol/L (0.7-2.1) 04/16/25 23:20 NT-Pro-B Natriuret Pep 1060 pg/mL (<450) H 04/16/25 21:00 Electronically Signed by: Dori Barrera 04/28/25 11:50 Clinical Dietitian [address] [address]
--- NOTE | 2025-04-28 13:00 | OT.IPNOTE ---
Pt up in recliner on entrance of OT. OT encouraged pt to participate in ADLs, pt declines either stating my daughter does that for me or I'm just real tired and don't feel like doing anything. Pt declined tfing back to bed stating that she likes the bed. OT will re-attempt tomorrow.
[2025-04-28 16:00] VITALS: BP 152/44; PULSE 68; RESP 16; TEMP 36.1; O2SAT 100
--- NOTE | 2025-04-28 16:31 | PM.PN.1 ---
Subjective Subjective Interval history: S: Still we can dyspneic. Coughing a little bit less. More swollen in the arms and legs. O: T 97.3?, BP 155/52, pulse 72, respirations 16, SaO2 99% 3 L. NAD, alert and oriented. Fluent speech. Lungs are diminished, normal rate and effort. Heart is regular, no murmur gallop or rub. Abdomen is soft, non distended. Extremities are with 1+ arm and leg edema. A/P: Acute chronic diastolic congestive heart failure with acute on chronic hypoxic respiratory failure Acute exacerbation of COPD, slowly resolving -transitioned back from oral to IV Lasix. -continue metoprolol -transitioned to prednisone on 04/26 -continue bronchodilators -continue tessalon for cough -encourage patient to be out of bed -recheck renal function and K in the am Community-acquired pneumonia, improving. Rhino virus infection, improving. Patient completed an appropriate course of antibiotics. No additional treatment needed for community-acquired pneumonia. -continue isolation for rhinovirus Coronary artery disease, stable. Clinically stable, no sign of complication -continue aspirin, atorvastatin, metoprolol, and ranolazine Morbid obesity, stable. Contributes to comorbid conditions, complicates management and recovery, impacts mobility Insulin-dependent diabetes mellitus, stable. Hemoglobin A1c 7.1, suboptimal control in the setting of steroid use. Blood sugar should improve as steroids are decreased and discontinued. -continue current doses of lispro, increased dose of lantus on 04/25-if blood glucose remains elevated as steroids are tapered, may need to increase Lantus in the next 24-48 hours. PLAN: -change Lasix to 80 IV q.12 hours. -wean O2 as able. -monitor breathing and edema. DVT prophylaxis: Subcutaneous heparin Discharge planning: Anticipate patient will need another 24-48 hours in the hospital for continued diuresis and another attempt at transition to oral lasix. Patient needs to have HH PT/OT resumed at discharge. Exam Vital Signs (past 8 hours): - 04/28/25 08:47 04/28/25 09:03 Temperature 97.3 F L Pulse Rate 69 72 Respiratory Rate 16 16 Blood Pressure 155/52 H Pulse Oximetry 98 99 Oxygen Delivery Method Nasal Cannula Oxygen Flow Rate 3 3 Fraction of Inspired Oxygen 32 Fraction of Inspired Oxygen 32 SaO2/FiO2 Ratio 300 Oxygen Delivery Method Nasal Cannula Oxygen Flow Rate 3 Objective Labs 04/27/25 04:48 04/27/25 04:48 Labs: Laboratory Results - last 24 hr 04/27/25 04/27/25 04/28/25 16:44 20:01 07:53 POC Whole Bld Glucose 298 H 405 H D 159 H D 04/28/25 11:38 POC Whole Bld Glucose 95 PFSH Medical History Chronic respiratory failure with hypoxia Skin cancer NSTEMI (non-ST elevated myocardial infarction) Diastolic heart failure Cardiac arrest Chest pain Hypertension Hyperlipidemia Coronary artery disease Left hamstring muscle strain UTI (urinary tract infection) Surgical History H/O right heart catheterization History of breast implant removal History of breast surgery History of appendectomy History of cholecystectomy History of total abdominal hysterectomy History of coronary artery stent placement Family History Father Hypertension Diabetes mellitus Mother Hypertension [place] (myocardial infarction) Sister [place] (myocardial infarction) S/P CABG x 4 Social History household members: children Smoking Status: Never smoker alcohol intake: never Assessment & Plan Time-Based Coding :: [TOTAL MINUTES] spent with patient and on the chart (including review of chart, obtaining history, exam, reviewing outside data, placing orders, documenting exam and treatment plan, and counseling patient) on [DATE].
[2025-04-28] MEDS: BENZONATATE 100 MG CAPSULE PO (19:08)
[2025-04-28 19:35] VITALS: PULSE 79; RESP 16; O2SAT 98
[2025-04-28] MEDS: ATORVASTATIN 20 MG TABLET 80 MG PO (21:22)
[2025-04-28] MEDS: INSULIN GLARGINE 100 UNIT/ML 3ML PEN 35 UNIT SUBCUT (21:30)
[2025-04-28] MEDS: FUROSEMIDE 80 MG in SODIUM CHLORIDE 0.9% 50 ML 116 MG IV (21:32)
[2025-04-29] VITALS: BP 128/40; PULSE 61; RESP 16; O2SAT 98
[2025-04-29] MEDS: CODEINE/guaiFENesin LIQUID 5 ML UDC 10 ML PO ×3 (04:27→12:20)
[2025-04-29 08:00] VITALS: BP 147/44; PULSE 61; RESP 16; TEMP 35.7; O2SAT 100
--- NOTE | 2025-04-29 08:01 | PM.PN.1 ---
Subjective Subjective Interval history: Summary: 89-year-old female severe lung disease who presented with COPD exacerbation in context of rhino virus. Was improving to a very small degree, but then developed recurrent diastolic heart failure with volume overload and increased shortness a breath. S: Her breathing is better today, however she had 2 episodes of diarrhea. In addition her blood pressure has been low for the last couple of hours. She also has had hypoglycemia multiple times. RN did speak to pharmacy did decrease her insulin to some degree. She notes 1 regular still today followed by esophageal and then diarrhea. Some abdominal cramping but no nausea or vomiting. Her breathing is somewhat improved and her cough is also diminished. O: T 96.2?, BP 138/36, pulse 64, respiration 15, SpO2 100% on 2 L. NAD, alert and oriented. Fluent speech. Lungs are clear, normal rate and effort. Heart is regular, no murmur gallop or rub. Abdomen is soft, non distended. Extremities are free of edema. A/P: 1. Acute chronic diastolic congestive heart failure with acute on chronic hypoxic respiratory failure, improved. 2. Hypotension secondary to diuresis, active. 3. Hypoglycemia, new. 4. Diarrhea, new. 5. Acute exacerbation of COPD, slowly resolving 6. Community-acquired pneumonia, improving. 7. Rhino virus infection, improving. Patient completed an appropriate course of antibiotics. No additional treatment needed for community-acquired pneumonia. -continue isolation for rhinovirus 8. Coronary artery disease, stable. Clinically stable, no sign of complication -continue aspirin, atorvastatin, metoprolol, and ranolazine 9. Morbid obesity, stable. Contributes to comorbid conditions, complicates management and recovery, impacts mobility 1-. Insulin-dependent diabetes mellitus, stable. Hemoglobin A1c 7.1, suboptimal control in the setting of steroid use. Blood sugar should improve as steroids are decreased and discontinued. -continue current doses of lispro, increased dose of lantus on 12/12-if blood glucose remains elevated as steroids are tapered, may need to increase Lantus in the next 24-48 hours. PLAN: -fluid bolus, 500 mL, hold Lasix for a day. -decrease Lantus and lispro. -encourage p.o. intake, and monitor for recurrent hypoglycemia. -monitor diarrhea, no intervention at this point. She was not stable enough to be discharge on requires another night of care. DVT prophylaxis: Subcutaneous heparin Exam Vital Signs (past 8 hours): Fraction of Inspired Oxygen 32 SaO2/FiO2 Ratio 300 Oxygen Delivery Method Nasal Cannula Oxygen Flow Rate 3 Objective Labs 04/27/25 04:48 04/27/25 04:48 Labs: Laboratory Results - last 24 hr 04/28/25 04/28/25 04/28/25 11:38 16:36 21:14 POC Whole Bld Glucose 95 169 H 240 H PFSH Medical History Chronic respiratory failure with hypoxia Skin cancer NSTEMI (non-ST elevated myocardial infarction) Diastolic heart failure Cardiac arrest Chest pain Hypertension Hyperlipidemia Coronary artery disease Left hamstring muscle strain UTI (urinary tract infection) Surgical History H/O right heart catheterization History of breast implant removal History of breast surgery History of appendectomy History of cholecystectomy History of total abdominal hysterectomy History of coronary artery stent placement Family History Father Hypertension Diabetes mellitus Mother Hypertension [place] (myocardial infarction) Sister [place] (myocardial infarction) S/P CABG x 4 Social History household members: children Smoking Status: Never smoker alcohol intake: never Assessment & Plan Time-Based Coding :: [TOTAL MINUTES] spent with patient and on the chart (including review of chart, obtaining history, exam, reviewing outside data, placing orders, documenting exam and treatment plan, and counseling patient) on [DATE].
[2025-04-29] MEDS: ALBUTEROL/IPRATROPIUM 3 ML AMPUL INH ×2 (09:22→19:53)
[2025-04-29 09:23] VITALS: PULSE 75; RESP 16; O2SAT 98
[2025-04-29] MEDS: PANTOPRAZOLE DR 40 MG TABLET PO (09:58)
[2025-04-29] MEDS: ESCITALOPRAM 10 MG TABLET 20 MG PO (09:58)
[2025-04-29] MEDS: HEPARIN 5,000 UNIT/ML VIAL 5000 UNIT SUBCUT ×2 (09:58→21:32)
[2025-04-29] MEDS: FUROSEMIDE 80 MG in SODIUM CHLORIDE 0.9% 50 ML 116 MG IV (10:02)
[2025-04-29] MEDS: RANOLAZINE 500 MG TAB.ER.12H PO ×2 (10:03→21:32)
[2025-04-29] MEDS: INSULIN LISPRO 100 UNIT/ML 3ML VIAL 16 UNIT SUBCUT (10:04)
[2025-04-29] MEDS: ASPIRIN EC 81 MG TABLET PO (10:04)
[2025-04-29] MEDS: METOPROLOL IR 25 MG TABLET 12.5 MG PO ×2 (10:04→21:32)
[2025-04-29] MEDS: SODIUM CHLORIDE 0.9% FLUSH 10 ML IV ×2 (10:06→21:40)
--- NOTE | 2025-04-29 10:45 | PT.IPTN ---
Current Diagnoses Sepsis, unspecified organism (04/17/25) Heart failure, unspecified (04/17/25) Pneumonia, unspecified organism (04/17/25) Other specified abnormal findings of blood chemistry (04/17/25) Physical Therapy Treatment Note M2 PT-IP Current Condition Start: 04/19/25 12:48 Freq: NEEDED Status: Active Protocol: Document 04/29/25 10:20 LRN (Rec: 04/29/25 10:56 LRN Laptop) Physical Therapy Current Condition Current Condition Evaluation Date 04/19/25 Treatment Diagnosis SOB, weakness Onset Date 04/16/25 M3 PT-IP Subjective Start: 04/19/25 12:48 Freq: NEEDED Status: Active Protocol: Document 04/29/25 10:20 LRN (Rec: 04/29/25 10:56 LRN Laptop) Subjective Physical Therapy Visit Type Type Treatment Note Visit Start Time 09:30 Visit Stop Time 10:15 Notes Daughter in room. Physical Therapy Visit Comments Patient Comments Pt requesting use of Bedside commode (BSC). Later agreeable to get into chair. Patient Goals Home with family assist M4 PT-IP Mobility and Gait Start: 04/19/25 12:48 Freq: NEEDED Status: Active Protocol: Document 04/29/25 10:20 LRN (Rec: 04/29/25 10:56 LRN Laptop) PT-Bed Mobility Assessment Supine to Sit Supine to Sit Contact Guard Assistance,Minimal Assistance,1 Person Assistance,Head of Bed Elevated Scooting Scooting to Edge of Contact Guard Assistance,Minimal Assistance Bed PT-Transfer Assessment Sit to and From Stand Sit to and from Contact Guard Assistance,1 Person Assistance,Use of Stand Upper Extremities Equipment Transfer Assistive Gait Belt,Front Wheeled Walker Device Transfers Transfer Destination Chair,Bedside Commode Transfer Technique Stand Step Pivot Transfer Ability Level of Assist Contact Guard Assistance,Use of Upper Extremities Comments Mobility Comments Assist was needed to get out of bed due to urgency of pt to use the BSC. Pt took ~3 pivot steps to get BSC, then ~4 small steps to get into chair w/3L O2 via NC/ FWW/GB. Gait Assessment Gait Gait Assistance Contact Guard Assist Required: Distance (Feet) 2 Able to Maintain Yes Weight Bearing Status During Gait Assistive Devices Assistive Device Front Wheeled Walker Gait Deviations General Gait Pattern Decreased Stride Length,Decreased Feet Clearance,Flexed Trunk Comments Gait Comments Pt took ~4 small steps (1 bkwd) to get from to BSC to chair/3L O2 via NC/FWW/GB. PT-Balance Assessment Sitting Balance and Reactions Static Sitting Normal Balance Ability Dynamic Sitting Good Balance Ability Standing Balance and Reactions Static Standing Good Balance Ability Dynamic Standing Fair Balance Ability Device Used FWW M5 PT-IP Objective Assessments Start: 04/19/25 12:48 Freq: NEEDED Status: Active Protocol: Document 04/29/25 10:20 LRN (Rec: 04/29/25 10:56 LRN Laptop) Orientation Orientation/Cognition Level of Alertness Alert Other Assessments Other Other Assessments At start: SpO2 100%, HR 66 At rest in chair: 96%, HR 97 M6 PT-IP Treatment Start: 04/19/25 12:48 Freq: NEEDED Status: Active Protocol: Document 04/29/25 10:20 LRN (Rec: 04/29/25 10:56 LRN Laptop) Physical Therapy Treatment Exercises Exercises Ankle Pumps Other Treatments Other Treatment Deep breathing Performed M7 PT-IP Assessment and Plan Start: 04/19/25 12:48 Freq: NEEDED Status: Active Protocol: Document 04/29/25 10:20 LRN (Rec: 04/29/25 10:56 LRN Laptop) PT Summary Assessment and Plan Potential Rehabilitation Good Potential Status of Condition Stable at Evaluation Summary Impairments Strength,Balance,Bed Mobility,Transfers,Gait,Activity Tolerance Progress Towards Slow Progress due to Activity Tolerance Goals Assessment Summary Pt was agreeable to walk short distance to get into a chair after sitting on commode chair. She had assist w /bed mobility due to urgency of needing to use BSC. STS with FWW/CGA/2 L O2 via NC (SpO2 was 100% at rest and 96% after gait. Pt needs encouragement to increase activity level. She did not appear SOB after gait and tolerated activity well with frequent standing rests. Continue to recommend home health upon discharge with family present to assist. Note: BP checks on L forearm only. Goals Bed Mobility Goal Standby Assistance Transfer Goal Standby Assistance Gait Goal Standby Assistance Gait Distance 60' Other Goals Pt able to ambulate 10 steps in 1-2 days to be able to get from bed at home to electric W/C. Days to Meet Goals 10 Frequency of Treatment Frequency Of Once a Day Treatment Treatment Plan Physical Therapy Bed Mobility Training,Transfer Training,Gait Training, Treatment Plan Therapeutic Exercise,Discharge Planning Other Continue to work on mobility needed to go home. Recommendations and Next Treatment Focus Precautions Other Precautions 3 LO2 baseline oxygen BP checks on LUE due to pt reported hx of LUE lymphedema. Weight Bearing Status Weight Bearing Full Weight Bearing Status Recommendations To Nursing Amount of Assist 1 Person Assist Needed Discharge Recommendations PT Discharge Home with Assistance,Home with 24/7 Assist Available, Recommendations Home Health Other Discharge Pt refusing to go to SNF. If pt goes home recommending Recommendations to continue. Equipment Needed for FWW as pt only has 4WW and power chair. Home Before Discharge Transportation Needs Wheelchair/Cabulance at Discharge - PT assist 1
[2025-04-29] MEDS: BENZOCAINE/MENTHOL 1 LOZ PKT 1 EACH PO (12:21)
[2025-04-29 12:42] VITALS: BP 138/36; PULSE 64; RESP 15; TEMP 35.7; O2SAT 100
[2025-04-29] MEDS: INSULIN LISPRO 100 UNIT/ML 3ML VIAL 10 UNIT SUBCUT (12:57)
--- NOTE | 2025-04-29 13:34 | OT.IPNOTE ---
Lida reported that she just 'got back in bed 4-5 minutes ago' and wants to rest. Lida is not agreeable to OT treatment at this time.
--- NOTE | 2025-04-29 13:41 | CM.DPNOTE ---
DCP Continued: Reviewed EMR and team rounds for pt?s medical status. Per hospitalist, still monitoring pt's Potassium and WBC levels before safe discharge home. FRUIT HARVEST MACHINE OPERATOR sent new home health orders for RN, PT, HH Aide to [facility] as pt's current HH episode was set to in three days. FRUIT HARVEST MACHINE OPERATOR sent signed MD orders and updated clinicals for [facility] to review via secure email. Uploaded orders to EMR. Plan: Anticipating dc home with home health on 04/30 or when medically stable, family will transport home. CM Team will continue to follow for coordination of discharge plans. ROHIT Melendez
[2025-04-29] MEDS: SODIUM CHLORIDE 0.9% 500 ML 1000 ML IV (15:01)
--- NOTE | 2025-04-29 16:12 | PC.NURSE ---
Shift note: Patient feeling generally unwell today. Complains of feeling weak. Blood sugars low 60 and 55. Notified MD and pharmacy and insulin adjusted. Hypotensive 80s/30 with dizziness and weakness. MD notified-new orders obtained. Patient sitting in chair with daughter chairside. Call light and personal belongings in reach. Cares continue.
[2025-04-29 19:50] VITALS: PULSE 75; RESP 16; O2SAT 97
[2025-04-29 20:45] VITALS: BP 182/67; PULSE 72; RESP 18; TEMP 35.9; O2SAT 97
[2025-04-29] MEDS: INSULIN GLARGINE 100 UNIT/ML 3ML PEN 25 UNIT SUBCUT (21:31)
[2025-04-29] MEDS: ATORVASTATIN 20 MG TABLET 80 MG PO (21:32)
[2025-04-29] MEDS: ACETAMINOPHEN 325 MG TABLET 650 MG PO (21:33)
[2025-04-30] VITALS (7 sets, daily range): BP systolic 118–183; BP diastolic 44–74; PULSE 66–92; RESP 16–20; TEMP 35.7–36.7; O2SAT 93–100
[2025-04-30 06:14] LABS: Blood Urea Nitrogen 46 mg/dL (7-17); Calcium 8.7 mg/dL (8.4-10.2); Carbon Dioxide 33 mmol/L (22-32); Chloride 99 mmol/L (98-107); Estimated Glomerular Filt Rate 49 mL/min (>60); Glucose 95 mg/dL (70-99); HEMOLYSIS 24 (0-50); Potassium 3.8 mmol/L (3.4-5.1); Sodium 135 mmol/L (137-145)
[2025-04-30 06:17] LABS: Hematocrit 33.1 % (36-46); Hemoglobin 10.5 g/dL (12.0-16.0); Mean Corpuscular HGB Conc 31.8 % (30-36); Mean Corpuscular Hemoglobin 23.3 PG (26-34); Mean Corpuscular Volume 73.5 fL (80-100); Platelet Count 206 X10^3/uL (150-400)
[2025-04-30] MEDS: ALBUTEROL/IPRATROPIUM 3 ML AMPUL INH ×2 (09:28→18:55)
[2025-04-30] MEDS: ASPIRIN EC 81 MG TABLET PO (10:25)
[2025-04-30] MEDS: ESCITALOPRAM 10 MG TABLET 20 MG PO (10:27)
[2025-04-30] MEDS: RANOLAZINE 500 MG TAB.ER.12H PO ×2 (10:29→20:49)
[2025-04-30] MEDS: PANTOPRAZOLE DR 40 MG TABLET PO (10:29)
[2025-04-30] MEDS: SODIUM CHLORIDE 0.9% FLUSH 10 ML IV ×2 (10:31→21:00)
[2025-04-30] MEDS: METOPROLOL IR 25 MG TABLET 12.5 MG PO ×2 (10:39→20:49)
[2025-04-30] MEDS: HEPARIN 5,000 UNIT/ML VIAL 5000 UNIT SUBCUT ×2 (10:41→20:46)
--- NOTE | 2025-04-30 11:48 | PM.PN.1 ---
Subjective Subjective Interval history: Summary: 89-year-old female severe lung disease who presented with COPD exacerbation in context of rhino virus. Was improving to a very small degree, but then developed recurrent diastolic heart failure with volume overload and increased shortness a breath. 04/29: She would hypoglycemia and her insulin was decreased. She also developed hypotension and dizziness and required 500 mL of fluid back. Lasix was held. Overnight events: No major issues with blood pressure, glucose was about 96. She was eating. S: No further dizziness, cough has improved. She was had postnasal drip. She was profoundly weak. She did have diarrhea yesterday, this is resolved. O: T 96.3, BP 129/44, pulse 71, respirations 16, SpO2 99% on 3 L. NAD, alert and oriented. Fluent speech. She appears frail and ill. Lungs are diminished, increase rate and normal effort. Heart is regular, no murmur gallop or rub. Abdomen is soft, non distended. Extremities are with 1 to 2+ edema. A/P: 1. Acute chronic diastolic congestive heart failure with acute on chronic hypoxic respiratory failure, improved. 2. Hypotension secondary to diuresis, new 04/29 and better after IVF. 3. Hypoglycemia, new 04/29 and better. Insulin decreased, she is eating. 4. Diarrhea, new 04/29 and resolved. 5. Acute exacerbation of COPD, slowly resolving 6. Community-acquired pneumonia, improving. 7. Rhino virus infection, improving. Patient completed an appropriate course of antibiotics. No additional treatment needed for community-acquired pneumonia. -continue isolation for rhinovirus. 8. Coronary artery disease, stable. -continue aspirin, atorvastatin, metoprolol, and ranolazine 9. Morbid obesity, stable. 10. Insulin-dependent diabetes mellitus, stable. PLAN: -Hold Lasix and IVF. -continue decreased dose Lantus and lispro. Monitor glucose. -encourage p.o. intake, and monitor for recurrent hypoglycemia. -Add Mucines She was not stable enough to be discharge on requires another night of care. Remains quite short of breath and weak. DVT prophylaxis: Subcutaneous heparin Exam Vital Signs (past 8 hours): - 04/30/25 05:15 04/30/25 08:26 04/30/25 09:29 Temperature 97.4 F L 96.3 F L Pulse Rate 67 66 77 Respiratory Rate 18 16 16 Blood Pressure 153/62 H 183/74 H Pulse Oximetry 100 100 99 Oxygen Delivery Method Nasal Cannula Oxygen Flow Rate 3 3 3 Fraction of Inspired Oxygen 32 04/30/25 10:40 Temperature Pulse Rate 71 Respiratory Rate Blood Pressure 129/44 L Pulse Oximetry Oxygen Delivery Method Oxygen Flow Rate Fraction of Inspired Oxygen Fraction of Inspired Oxygen 32 SaO2/FiO2 Ratio 296 Oxygen Delivery Method Nasal Cannula Oxygen Flow Rate 3 Objective Labs 04/30/25 05:15 04/30/25 05:15 Labs: Laboratory Results - last 24 hr 04/29/25 04/29/25 04/29/25 12:16 14:11 16:51 WBC RBC Hgb Hct MCV MCH MCHC RDW Plt Count Sodium Potassium Chloride Carbon Dioxide BUN Creatinine Estimated GFR BUN/Creatinine Ratio Glucose POC Whole Bld Glucose 55 L 80 94 Calcium 04/29/25 04/30/25 04/30/25 21:04 05:15 07:58 WBC 16.0 H RBC 4.51 Hgb 10.5 L Hct 33.1 L MCV 73.5 L MCH 23.3 L MCHC 31.8 RDW 22.2 H Plt Count 206 Sodium 135 L Potassium 3.8 Chloride 99 Carbon Dioxide 33 H BUN 46 H Creatinine 1.09 H Estimated GFR 49 L BUN/Creatinine Ratio 42.2 H Glucose 95 POC Whole Bld Glucose 155 H 71 Calcium 8.7 PFSH Medical History Chronic respiratory failure with hypoxia Skin cancer NSTEMI (non-ST elevated myocardial infarction) Diastolic heart failure Cardiac arrest Chest pain Hypertension Hyperlipidemia Coronary artery disease Left hamstring muscle strain UTI (urinary tract infection) Surgical History H/O right heart catheterization History of breast implant removal History of breast surgery History of appendectomy History of cholecystectomy History of total abdominal hysterectomy History of coronary artery stent placement Family History Father Hypertension Diabetes mellitus Mother Hypertension CT (myocardial infarction) Sister CT (myocardial infarction) S/P CABG x 4 Social History household members: children Smoking Status: Never smoker alcohol intake: never Assessment & Plan Time-Based Coding :: [TOTAL MINUTES] spent with patient and on the chart (including review of chart, obtaining history, exam, reviewing outside data, placing orders, documenting exam and treatment plan, and counseling patient) on [DATE].
[2025-04-30] MEDS: INSULIN LISPRO 100 UNIT/ML 3ML VIAL SUBCUT ×3 (12:45→20:48)
[2025-04-30] MEDS: INSULIN LISPRO 100 UNIT/ML 3ML VIAL 7 UNIT SUBCUT ×2 (12:47→17:44)
--- NOTE | 2025-04-30 13:27 | CM.DPC ---
DCP Cont. Reviewed EMR and team rounds for pt's medical status and updates. Per Hospitalist, pt will need 1-more day inpt due to SOB. Anticipate d/c tomorrow, 05/01.
--- NOTE | 2025-04-30 13:39 | PC.NURSE ---
Pt resting in bed watching court tv, family at bedside, NAD, pt on 3 liters oxygen, baseline level per patient, will continue to monitor,
--- NOTE | 2025-04-30 15:00 | PC.NURSE ---
pt watching tv with daughter at bedside, nad, call light within reach, will continue to monitor.
--- NOTE | 2025-04-30 15:55 | PT-IP ANOTE ---
Pt refused PT treatment secondary to fatigue. Took vitals per RN request, 86/32 --> 107/32 upon second trial for BP, HR 67 with 100% saturation. Education on importance of movement and exercise to assist with BP, pt continues to decline. RN notified.
[2025-04-30] MEDS: ONDANSETRON 4 MG/2 ML INJ IV (20:40)
[2025-04-30] MEDS: INSULIN GLARGINE 100 UNIT/ML 3ML PEN 25 UNIT SUBCUT (20:47)
[2025-04-30] MEDS: ATORVASTATIN 20 MG TABLET 80 MG PO (20:49)
[2025-05-01 05:57] VITALS: BP 178/96; PULSE 59; RESP 20; TEMP 36; O2SAT 97
[2025-05-01 07:28] LABS: Hematocrit 32.5 % (36-46); Hemoglobin 10.2 g/dL (12.0-16.0); Mean Corpuscular HGB Conc 31.3 % (30-36); Mean Corpuscular Hemoglobin 23.0 PG (26-34); Mean Corpuscular Volume 73.6 fL (80-100); Platelet Count 174 X10^3/uL (150-400)
[2025-05-01 07:43] LABS: Blood Urea Nitrogen 52 mg/dL (7-17); Calcium 9.0 mg/dL (8.4-10.2); Carbon Dioxide 33 mmol/L (22-32); Chloride 99 mmol/L (98-107); Estimated Glomerular Filt Rate 46 mL/min (>60); HEMOLYSIS < 15 (0-50); Potassium 4.9 mmol/L (3.4-5.1); Sodium 134 mmol/L (137-145)
[2025-05-01 07:50] LABS: Glucose 213 mg/dL (70-99)
[2025-05-01] MEDS: INSULIN LISPRO 100 UNIT/ML 3ML VIAL 7 UNIT SUBCUT ×2 (07:58→13:38)
[2025-05-01] MEDS: INSULIN LISPRO 100 UNIT/ML 3ML VIAL SUBCUT ×2 (07:59→13:37)
[2025-05-01] MEDS: SODIUM CHLORIDE 0.9% FLUSH 10 ML IV (08:00)
[2025-05-01] MEDS: ALBUTEROL/IPRATROPIUM 3 ML AMPUL INH (08:55)
[2025-05-01] MEDS: ASPIRIN EC 81 MG TABLET PO (08:55)
[2025-05-01] MEDS: ESCITALOPRAM 10 MG TABLET 20 MG PO (08:55)
[2025-05-01 08:56] VITALS: BP 116/50; PULSE 60; PULSE 78; RESP 16; O2SAT 100
[2025-05-01] MEDS: PANTOPRAZOLE DR 40 MG TABLET PO (08:56)
[2025-05-01] MEDS: HEPARIN 5,000 UNIT/ML VIAL 5000 UNIT SUBCUT (08:56)
[2025-05-01] MEDS: METOPROLOL IR 25 MG TABLET 12.5 MG PO (08:57)
[2025-05-01] MEDS: RANOLAZINE 500 MG TAB.ER.12H PO (09:01)
--- NOTE | 2025-05-01 12:13 | PM.DS.1 ---
History of Present Illness History of Present Illness Date Patient Seen: 05/01/25 Time Patient Seen: 12:14 Chief complaint: SOB Narrative: Hospital Course 89-year-old female with past medical history of chronic diastolic heart failure, coronary artery disease status post 6 stents, COPD with chronic 3 L of oxygen via nasal cannula, insulin-dependent diabetes, hyperlipidemia and hypertension who presented on 04/17/2025 with a several day history of increasing shortness of breath and hypoxia despite increasing oxygen to 4 L via nasal cannula. Patient has had a prolonged hospital course due to difficulty in controlling volume status and respiratory symptoms. She was on IV Lasix for over a week and when IV Lasix was changed to oral Lasix on 04/25 in preparation for discharge, the patient had a significant increase in her respiratory symptoms and work of breathing. She was transitioned back to IV Lasix for multiple days before a successful transition back to IV Lasix. In addition her COPD, possible pneumonia, and rhino virus infection were treated with antibiotics and nebulizers. The patient is now at her baseline with regard to respiratory status and is stable for discharge to home. Objective Vitals reviewed, 96.8, 116/50, 78, 16, 100% on 3 L (baseline oxygen requirement) Alert and oriented, no acute distress Oropharynx moist Regular rate and rhythm without murmurs Bibasilar rales, otherwise clear to auscultation with normal work of breathing Abdomen soft, nondistended Diffuse nonpitting edema bilateral lower extremities, left arm bruising present Labs: Labs today show WBC 14.6, creatinine 1.15, glucose 2 13 Imaging: No new imaging in the last 24 hours. Assessment and plan Acute chronic diastolic congestive heart failure with acute on chronic hypoxic respiratory failure Acute exacerbation of COPD, slowly resolving Prolonged hospital stay as noted above. Respiratory status now back to baseline. She was treated in the hospital with frequent nebulizers, respiratory therapy care, and IV Lasix. She will discharge home on her prior medications. She is currently on a prednisone taper of 40 mg daily x3 days 20 mg daily x3 days and then she will resume her prior chronic prednisone dose of 10 mg daily. Community-acquired pneumonia Rhino virus infection Patient completed an appropriate course of antibiotics for pneumonia. Symptomatic management provided for rhino virus infection. No further treatment required as an outpatient. Coronary artery disease Clinically stable, no sign of complication. continue GDMT with aspirin, atorvastatin, metoprolol, and ranolazine Morbid obesity Contributes to comorbid conditions, complicates management and recovery, impacts mobility Insulin-dependent diabetes mellitus Hemoglobin A1c 7.1, suboptimal control in the setting of steroid use. Blood sugar improving as steroids are tapered. She will discharge on her prior doses of insulin. Discharge Providers Provider Date of admission: 04/17/25 01:22 Discharge Date: 05/01/25 Primary care physician: Zoe Bass PA-C Consults: 04/17/25 05:19 Consult to Pharmacy Routine Comment: New Admit 04/18/25 14:28 Consult to Physical Therapy Evaluate & Treat Comment: Physician Instructions: Evaluate and Treat 04/18/25 14:29 Consult to Occupational Therapy Evaluate & Treat Comment: Physician Instructions: Evaluate and treat 04/19/25 11:11 Consult to Pharmacy Routine Comment: per assessment 04/22/25 14:12 Consult to Home Health Routine Comment: Reason For Exam: Resumption of RN, PT, HH Aide 04/29/25 13:28 Consult to Home Health Routine Comment: Reason For Exam: RN, PT, HH Aide Discharge provider: Corazon Milton MD Exam Vital Signs (past 8 hours): - 05/01/25 05:57 05/01/25 08:56 05/01/25 08:56 Temperature 96.8 F L Pulse Rate 59 L 60 78 Respiratory Rate 20 16 Blood Pressure 178/96 H 116/50 L Pulse Oximetry 97 100 Oxygen Delivery Method Nasal Cannula Oxygen Flow Rate 3 3 Fraction of Inspired Oxygen 32 Fraction of Inspired Oxygen 32 SaO2/FiO2 Ratio 300 Oxygen Delivery Method Nasal Cannula Oxygen Flow Rate 3 Objective Labs 05/01/25 07:20 05/01/25 07:20 Labs: Laboratory Results - last 24 hr 04/30/25 04/30/25 04/30/25 15:13 16:35 20:34 WBC RBC Hgb Hct MCV MCH MCHC RDW Plt Count Sodium Potassium Chloride Carbon Dioxide BUN Creatinine Estimated GFR BUN/Creatinine Ratio Glucose POC Whole Bld Glucose 196 H 188 H 215 H Calcium 05/01/25 07:20 WBC 14.6 H RBC 4.42 Hgb 10.2 L Hct 32.5 L MCV 73.6 L MCH 23.0 L MCHC 31.3 RDW 22.3 H Plt Count 174 Sodium 134 L Potassium 4.9 Chloride 99 Carbon Dioxide 33 H BUN 52 H Creatinine 1.15 H Estimated GFR 46 L BUN/Creatinine Ratio 45.2 H Glucose 213 H D POC Whole Bld Glucose Calcium 9.0 PFSH Medical History Chronic respiratory failure with hypoxia Skin cancer NSTEMI (non-ST elevated myocardial infarction) Diastolic heart failure Cardiac arrest Chest pain Hypertension Hyperlipidemia Coronary artery disease Left hamstring muscle strain UTI (urinary tract infection) Surgical History H/O right heart catheterization History of breast implant removal History of breast surgery History of appendectomy History of cholecystectomy History of total abdominal hysterectomy History of coronary artery stent placement Family History Father Hypertension Diabetes mellitus Mother Hypertension [place] (myocardial infarction) Sister [place] (myocardial infarction) S/P CABG x 4 Social History household members: children Smoking Status: Never smoker alcohol intake: never Discharge Plan Discharge Plan Patient Disposition: Home Discharge orders & Medications Prescriptions: New lisinopril 20 mg Tablet 40 mg PO DAILY Qty: 30 3RF prednisone 10 mg tablet 10 mg PO DIRECTED Qty: 30 0RF Rx Instructions: 4 tabs daily for 3 days, then 2 tabs daily for 3 days, then resume prior chronic dose of 1 tab daily. Continued aspirin 81 MG tablet,delayed release (DR/EC) 81 mg PO DAILY Qty: 0 pantoprazole 40 mg Tablet,Delayed Release (Dr/Ec) 40 mg PO DAILY escitalopram oxalate 20 mg Tablet 20 mg PO DAILY insulin lispro [Admelog U-100 Insulin lispro] 100 unit/mL Solution 7 unit SUBCUT AC Qty: 30 0RF insulin lispro [Admelog U-100 Insulin lispro] 100 unit/mL Solution 0 unit SUBCUT ACHS Qty: 30 0RF guaifenesin [Mucus Relief ER] 600 mg Tablet Extended Release 12hr 600 mg PO BID Qty: 60 0RF (DME) miscellaneous medical supply Package See Rx Instructions .Route Qty: 100 2RF Rx Instructions: Needle tips for insulin pen U 100 insulin syringes nystatin 100,000 unit/mL suspension 100,000 unit PO QID Qty: 500 0RF Rx Instructions: administer 1/2 of dose in each side of the mouth nystatin 100,000 unit/gram ointment 1 applic topical BID Qty: 120 1RF nitroglycerin 0.4 mg tablet, sublingual 1 tab sublingual [id number] PRN (Reason: Chest Pain) Patient Comments: take it when needed, last dose unknown rosuvastatin 40 mg tablet 40 mg PO QPM acetaminophen-codeine 300-30 mg tablet 1 tab PO BID PRN (Reason: pain) ipratropium-albuterol 0.5 mg-3 mg(2.5 mg base)/3 mL solution for nebulization 3 ml inhalation DIRECTED PRN (Reason: sob, wheezing) ranolazine 500 mg tablet extended release 12 hr 500 mg PO BID (DME) lancets [FreeStyle Lancets] 28 gauge misc 1 ea MISCELLANEOUS 3XD metoprolol tartrate 25 mg Tablet 12.5 mg PO BID Qty: 30 0RF torsemide 10 mg tablet 10 mg PO BID Qty: 60 1RF potassium chloride 20 mEq tablet extended release 20 meq PO BID Qty: 60 2RF insulin glargine [Lantus Solostar U-100 Insulin] 100 unit/mL (3 mL) Insulin Pen 28 unit SUBCUT BEDTIME Discontinued prednisone 10 mg tablet 10 mg PO DAILY Qty: 30 2RF Follow up/Referrals: Zoe Bass PA-C [Primary Care Provider, Family Practice] Diet/Activity/Treatments Diet: Diet as Tolerated Visit Report/Discharge Packet Stand Alone Forms: [employer], Patient Portal/API, Stroke Signs & Symptoms, Influenza Vaccine Info, Notice of Privacy Practices, Inpatient vs Outpatient, Pneumococcal Vaccine Info, Pt. Rights & Responsibilities Discharge Data Primary Care Provider: Zoe Bass
[2025-05-01] MEDS: NYSTATIN CREAM 30 GM 1 APPLIC TOP (13:36)
--- NOTE | 2025-05-01 14:39 | CM.DPC ---
DCP Cont. Reviewed EMR and team rounds for pt's medical status and updates. Pt has been medically cleared for home d/c, her dtr will transport her home. Emailed dc summary to Stella SIMMONS, all other clinicals have already been faxed.
--- NOTE | 2025-05-01 15:26 | PC.NURSE ---
Addendum entered by Frieda Hyde RN 05/01/25 15:44: correction- Patient is not on 3 LNC at her baseline level of 02 requirements. Original Note: Patient is A&OX4, VSS, afebrile on RA. Her BG is slightly elevated and she is covered per [employer] and scheduled insulin orders. She reports her LBM was yesterday and declines miralax today. She denies n/v or pain. She is able to get up to BSC and family is supportive at bedside. Plan for patient was to D/C home today with HH. She acknowledges agreement with the plan and expresses that she is eager to discharge home today. She verbalizes understanding of medication changes/new med and she is escorted via w/ch to private vehicle with granddaughter for discharge home today at approximately 1436 with all of her belongings including portable 02.
== END 2025-05-01 14:36 | disposition home health service (06) | DRG 291 ==
LOC: ED 22:13 → AC 04-17 01:23
PROVIDERS: Hospitalist; Internal Medicine; Internal Medicine Infectious Disease; Pharmacist Pharmacist Clinician (PhC)/ Clinical Pharmacy Specialist; Admitting Provider Internal Medicine; Emergency Provider Family Medicine; Family Provider Internal Medicine; PCP Physician Assistant Medical; Referring Provider Family Medicine; Visit Provider Internal Medicine
DX: I11.0 Hypertensive heart disease with heart failure (principal); I50.33 Acute on chronic diastolic (congestive) heart failure; J12.89 Other viral pneumonia; J96.21 Acute and chronic respiratory failure with hypoxia; J44.0 Chronic obstructive pulmonary disease with (acute) lower respiratory infection; J44.1 Chronic obstructive pulmonary disease with (acute) exacerbation; Z68.42 Body mass index [BMI] 45.0-49.9, adult; I25.10 Atherosclerotic heart disease of native coronary artery without angina pectoris; E78.5 Hyperlipidemia, unspecified; E66.01 Morbid (severe) obesity due to excess calories; B97.19 Other enterovirus as the cause of diseases classified elsewhere; I95.2 Hypotension due to drugs; T50.2X5A Adverse effect of carbonic-anhydrase inhibitors, benzothiadiazides and other diuretics, initial encounter; E11.649 Type 2 diabetes mellitus with hypoglycemia without coma; R19.7 Diarrhea, unspecified; I25.2 Old myocardial infarction; Z99.81 Dependence on supplemental oxygen; Z95.5 Presence of coronary angioplasty implant and graft; Z79.4 Long term (current) use of insulin
CPT/HCPCS: 36415; 71045; 71275; 80048; 80053; 81003; 81015; 82805; 82962; 83036; 83605; 83690; 83735; 83880; 84443; 84484; 85025; 85027; 87040; 87633; 93005; 94640; 94760; 94762; 96365; 96367; 96375; 97110; 97116; 97162; 97166; 97530; 97535; 99285; J0696; J1200; J1644; J1815; J1938; J2405; J2919; J7040; J7050; J7060; Q9967

== ENCOUNTER 2025-05-06 12:43 | Inpatient (IN) | payer MEDICARE, OTHER, SELFPAY ==
[2025-04-17 05:03] VITALS: BMI 41.3
--- OUTSIDE RECORDS SUMMARY | 2025-04-17 15:26 | XMS_ITS | Continuity of Care Document ---
Author Organization [facility] [place] [address] Phone Care Team Providers Care Electrophysiology Nurse Practitioner Name Role Phone Zoe Bass PA-C Primary Care Provider DOC, EMS Attending Provider [phone] DOC, EMS Referring Provider [phone] Care Teams Patient Care Team Team Status: Active Member Role/Relationship Status Dates Zoe Bass PA-C Primary Care Provider Active Patient Care Team Team Status: Inactive Member Role/Relationship Status Dates Zoe Bass PA-C Primary Care Provider Active Start: April 16, 2025 End: April 16, 2025 EMS DOC Attending Provider Active Start: [email or web address] End: April 16, 2025 EMS DOC Referring Provider Active Start: Kramer 2024 End: April 16, 2025 Chief Complaint and Reason for Visit Chief Complaint Admit Date SOA April 16, 2025 8 :09pm Allergies, Adverse Reactions, Alerts Allergen Type Severity Reaction Last Updated Verified Status Comments morphine Allergy Unknown Unknown April 02, 2025 3:06pm Yes Active apixaban Adverse Reaction Severe Unknown April 02, 2025 3:06pm Yes Active isosorbide Adverse Reaction Severe Anxiety April 02, 2025 3:06pm Yes Active Mood problems, irritability and sadness lisinopril Adverse Reaction Severe Cramps April 02, 2025 3:06pm Yes Active Leg cramping lovastatin Adverse Reaction Severe leg cramping April 02, 2025 3:06pm Yes Active naproxen Adverse Reaction Severe sedation April 02, 2025 3:06pm Yes Active niacin Adverse Reaction Severe Rash November 19th, 2025 3:06pm Yes Active telmisartan Adverse Reaction Severe Unknown April 02, 2025 3:06pm Yes Active celecoxib Adverse Reaction Moderate GI April 02, 2025 3:06pm Yes Active losartan Adverse Reaction Moderate confusion and fatigue April 02, 2025 3:06pm Yes Active simvastatin Adverse Reaction Moderate GI April 02, 2025 3:06pm Yes Active tramadol Adverse Reaction Mild nightmare, not effective April 02, 2025 3:06pm Yes Active amoxicillin Adverse Reaction Unknown Diarrhea April 02, 2025 3:06pm Yes Active meloxicam Adverse Reaction Unknown GI upset April 02, 2025 3:06pm Yes Active CONTRAST DYE Adverse Reaction Severe Unknown April 02, 2025 3:06pm No Active LIPITOR (ATORVASTATIN CALCIUM) Adverse Reaction Severe Unknown April 02, 2025 3:06pm No Active ERYTHROMYCIN Adverse Reaction Unknown Unknown April 02, 2025 3:06pm No Active Social History Smoking Status Status Start Date End Date Date of Observa tion Never smoked tobacco (finding) April 02, 2025 3:06pm Observation Status Observation Response Date of Response Living arrangement At home January 08, 2025 9:50am Living Situation With family January 08 9:50am ETOH Use Wine January 08 9:50am Legal Sex Female Sex Assigned At Female 1935 Problems Active Problems Problem Diagnosis/Recorded Date Onset Date Stat us Insomnia March 04, 2024 5:01am October 03, 2006 Active Type 2 diabetes mellitus wit h hyperglycemia January 27, 2025 2:15pm Unknown Active Carotid artery stenosis March 04, 2024 5:01am September 23, 2022 Active Hx of non-ST elevation myocardial infarction (NSTEMI) March 04, 2024 5:01am July 08, 2019 Active Sleep apnea January 27, 2025 2:40pm Unknown Active Shortness of breath July 03, 2024 9:58am Unknown Active Actinic keratosis March 04, 2024 5:01am December, 2006 Active Cardiac amyloidosis March 04, 2024 5:35am Unknown Active DVT (deep venous thrombosis) March 04, 2024 5:01am February 26, 2019 Active Reactive airway disease March 04, 2024 5:01am Kota h 2019 Active Hypertension, essential, benign March 04, 2024 5:01am April 05, 2006 Active CAD (coronary artery disease) March 04, 2024 5:01a m May 12, 2022 Active Foot pain, bilateral September 11, 2024 10:30am Unknown Active Congestive heart failure March 04, 2024 5:01am Nov ember 2005 Active Injury of tendon of left upp er extremity April 03, 2016 2:26pm Unknown Active Cough April 25, 2024 11:58am Unknown Active Depression March 04, 2024 5:01am March 23, 009 Active Enlarged thyroid March 04, 2024 5:01am September 27, 017 Active Hyperglycemia March 04, 2024 5:35am Unknown A ctive Compression fracture of body of thoracic vertebra October 21, 2024 5:35am Unknown Active Body aches April 25, 2024 11:58am Unknown Active Chronic renal insufficiency July 25, 2024 10:26am U nknown Active Squamous cell carcinoma of skin March 04, 2024 5:01am April 13, 2018 Active GERD (gastroesophageal reflu x disease) March 04, 2024 5:01am March 25, 2020 Active Abdominal pain August 29, 2024 12:35pm Unknown A ctive Allergic rhinitis March 04, 2024 5:01am July Active Interstitial lung disease March 04, 2024 5:01am No vember 2019 Active Inactive/Resolved Problems Problem Diagnosis/Recorded Date Onset Date Stat us Biceps tendinitis of right shoulder March 04, 2024 5:01am September 29, 2009 Resolved Thoracic back pain March 04, 2024 5:01am November 13, 2019 Resolved Medications Medication Status Dose Units Route Directions Qty Days Refills S tart Date Stop Date End Date Reason(s) Instructions Adherence Pantoprazol e 40 mg tablet,craig yed release (DR/EC) Discont inued 40 MG PO every day 90 4 September 28, 2024 4:25pm Septe mber 2024 12:00 pm take 1 tablet by mouth once daily Prednisone 5 mg tablet Discont inued 5 MG PO every day 30 5 November 28, 2024 2:14pm Augus t 2024 9:48a m Interstiti al lung disease Interstiti al pulmonary disease, unspecifie d once daily for lung disease Furosemide 20 mg tablet Discont inued 20 MG PO EVERY MORNING 90 0 November 28, 2024 2:14pm Septe mber 2024 6:13a m Take 1 tablet by mouth once a day Escitalopra m Oxalate 20 mg tablet Active 20 MG PO every day 90 3 December 24, 2024 1:18pm for depression Unknown Pen Needle, Diabetic (Advocate Pen Needle) 31 gauge x 5/16 needle Active 0 .Route 1200 3 2024 11:00p m As directed, to use 4 x a day with insulin pens Blood-Gluco se Sensor (Dexcom G7 Sensor) device Active 0 .Route 9 3 2024 11:00p m Type 2 diabetes mellitus with hyperglyce tito Type 2 diabetes mellitus with hyperglyce tito change every 10 days Metformin 500 mg tablet Active 500 MG PO every day 90 3 2024 11:00p m for diabetes Unknown Torsemide 10 mg tablet Discont inued 10 MG PO TWICE A DAY 90 3 b er 2024 5:21pm frankie 2024 3:55p m Nitroglycer in 0.4 mg tablet, sublingual Active 1 MG SL ONCE 30 0 Novem b er 2024 5:21pm Place 1 tablet under tongue as directed as needed for chest pain. May repeat every 5 minutes if still having chest pain- to max of 3 tablets per episode. If no relief call 911 Unknown Insulin Lispro (Humalog Kwikpen Insulin) 100 unit/mL insulin pen Active 16 UNIT SUBQ THREE TIMES A DAY 45 3 Novemb er 2024 9:30pm Type 2 diabetes mellitus with hyperglyce tito Type 2 diabetes mellitus Type 2 diabetes mellitus with hyperglyce tito Type 2 diabetes mellitus without complicati ons before meals and adjust as directed Unknown Lisinopril 10 MG tablet Discont inued Novemb er 2015 12:00a m August 29, 2024 10:58 am Hydrochloro thiazide 12.5 MG tablet Discont inued Novemb er 2015 12:00a m Octob er 2023 3:23p m Buspirone 10 mg tablet Discont inued 10 MG PO TWICE A DAY 60 3 2024 12:00a m July 25, 2024 9:57a m TAKE 1 TABLET BY MOUTH TWICE DAILY for anxiety Prednisone 5 mg tablet Active 10 MG PO every day Au lois 2024 9:48am Interstiti al lung disease Interstiti al pulmonary disease, unspecifie d once daily for lung disease Unknown Albuterol Sulfate (Proventil Hfa) 90 mcg/actuati on HFA aerosol inhaler Active 2 PUFFS INH Q4H as needed for shortness of breath or wheezing 8.5 3 Novemb er 2024 3:15pm Unknown Torsemide 10 mg tablet Active 20 MG PO TWICE A DAY 360 3 Nove er 2024 3:53pm for swelling and CHF Unknown Acetaminoph en-Codeine 300-30 mg tablet Discont inued 1 TAB PO Octobe r 2023 11:00p m Octob er 2023 5:40a m Take 1 tablet by mouth twice a day as needed for pain Fluticasone Propion-Anselmo meterol (Advair Diskus) 250-50 mcg/dose blister with device Discont inued 1 INH INH TWICE A DAY Octobe r 2023 11:00p m August 29, 2024 10:58 am Albuterol Sulfate (Proventil Hfa) 90 mcg/actuati on HFA aerosol inhaler Discont inued 2 PUFFS INH Q4H as needed Octobe r 2023 11:00p m [facility] 2024 3:16p m Aspirin 81 mg tablet,craig yed release (DR/EC) Active 81 MG PO every day Octobe r 2023 11:00p m Unknown Rosuvastati n (Crestor) 40 mg tablet Discont inued 40 MG PO Octobe r 2023 11:00p m Septe mber 2024 6:13a m Take 1 tablet by mouth every night Ergocalcife rol (Vitamin D2) 50 mcg (2,000 unit) capsule Active 50 MCG PO every day Octobe r 2023 11:00p m Unknown Escitalopra m Oxalate 20 mg tablet Discont inued 20 MG PO Octobe r 2023 11:00p m Octob er 2023 5:40a m take 1 tablet by mouth once daily Furosemide 20 mg tablet Discont inued 20 MG PO Octobe r 2023 11:00p m November 28, 2024 2:14p m Take 1 tablet by mouth once a day Insulin Glargine (Basaglar Kwikpen U-100 Insulin) 100 unit/mL (3 mL) insulin pen Discont inued 5 UNIT SUBQ every day Octobe r 2023 11:00p m Octob er 2023 3:20p m Ipratropium -Albuterol 0.5 mg-3 mg(2.5 mg base)/3 mL solution for nebulizatio n Active 3 ML INH Q4H as needed Octobe r 2023 11:00p m Unknown Empaglifloz in (Jardiance) 10 mg tablet Discont inued 10 MG PO every day Octobe r 2023 11:00p m Janua ry 2024 10:39 am Take 1 tablet by mouth once a day Metoprolol Tartrate 25 mg tablet Active 12.5 MG PO TWICE A DAY Oc kerrie r 2023 11:00p m Take 1/2 tablet by mouth twice a day Unknown Nitroglycer in 0.4 mg tablet, sublingual Discont inued 1 MG SL Octobe r 2023 11:00p m Novem frankie 2024 5:23p m Place 1 tablet under tongue as directed as needed for chest pain. May repeat every 5 minutes if still having chest pain- to max of 3 tablets per episode. If no relief call 911 Pantoprazol e 40 mg tablet,craig yed release (DR/EC) Discont inued MG PO Octobe r 2023 11:00p m Octob er 2023 3:23p m take 1 tablet by mouth once daily Ranolazine 500 mg tablet extended release 12 hr Active 500 MG PO TWICE A DAY Octo be r 2023 11:00p m Unknown Cyanocobala min (Vitamin B-12) 250 mcg tablet Active 1 MCG PO Octob e r 2023 11:00p m Take 1 tablet by mouth once a day Take 2000mcg once daily. Unknown Pantoprazol e 40 mg tablet,craig yed release (DR/EC) Discont inued 40 MG PO Octobe r 2023 3:19pm September 28, 2024 4:25p m take 1 tablet by mouth once daily Acetaminoph en-Codeine 300-30 mg tablet Discont inued 1 TAB PO TWICE A DAY as needed for pain 60 2 r 2023 5:37am November 11, 2024 11:51 am Take 1 tablet by mouth twice a day as needed for pain Escitalopra m Oxalate 20 mg tablet Discont inued 20 MG PO every day 90 3 Octobe r 2023 5:39am Augus t 2024 1:18p m for depression Rosuvastati n (Crestor) 40 mg tablet Active 40 MG PO every day 2024 6:13am Take 1 tablet by mouth every night Unknown Benzonatate 100 mg capsule Discont inued 100 MG PO THREE TIMES A DAY as needed for cough 60 2 July 24, 2024 11:00p m September 11, 2024 10:01 am Interstiti al lung disease Interstiti al pulmonary disease, unspecifie d Amoxicillin -Pot Clavulanate 875-125 mg tablet Discont inued 1 TAB PO TWICE A DAY 20 July 24, 2024 11:00p m August 29, 2024 10:57 am Interstiti al lung disease Interstiti al pulmonary disease, unspecifie d Doxycycline Hyclate 100 mg capsule Discont inued 100 MG PO TWICE A DAY July 24, 2024 11:00p m August 29, 2024 10:57 am Interstiti al lung disease Interstiti al pulmonary disease, unspecifie d Prednisone 5 mg tablet Discont inued 5 MG PO every day 30 5 July 24, 2024 11:00p m November 28, 2024 2:14p m Interstiti al lung disease Interstiti al pulmonary disease, unspecifie d once daily for lung disease Acetaminoph en-Codeine 300-30 mg tablet Active 1 TAB PO TWICE A DAY as needed for pain 60 5 November 11, 2024 11:51a m Take 1 tablet by mouth twice a day as needed for pain Unknown Prednisone 20 mg tablet Discont inued 20 MG PO TWICE A DAY 2024 11:00p m Octob er 2024 10:32 am 60 mg BID for 3 days, then 40 mg bid for 3 days then 20 mg bid Insulin Lispro (Humalog Kwikpen Insulin) 100 unit/mL insulin pen Discont inued 7 UNIT SUBQ THREE TIMES A DAY 45 3 2024 11:00p m Novem frankie 2024 9:31p m Type 2 diabetes mellitus with hyperglyce tito Type 2 diabetes mellitus Type 2 diabetes mellitus with hyperglyce tito Type 2 diabetes mellitus without complicati ons before meals and adjust as directed Insulin Glargine (Lantus Solostar U-100 Insulin) 100 unit/mL (3 mL) insulin pen Active 20 UNIT SUBQ EVERY EVENING 45 3 2024 2:25pm Type 2 diabetes mellitus with hyperglyce tito Type 2 diabetes mellitus with hyperglyce tito for diabetes Unknown Tirzepatide (Mounjaro) 2.5 mg/0.5 mL pen injector Discont inued 2.5 MG SUBQ every week 2 3 2024 11:00p m Octob er 2024 1:42p m Type 2 diabetes mellitus with hyperglyce tito Morbid obesity Sleep apnea Type 2 diabetes mellitus with hyperglyce tito Morbid (severe) obesity due to excess calories Sleep apnea, unspecifie d inject 2.5 once weekly SC, then may call in 4 weeks for refill and dose increase Blood Sugar Diagnostic (Freestyle Lite Strips) strip Active 0 .Route 300 3 2024 11:00p m As directed, use with glucometer to test blood sugars three ties a day, DX E11.9, insulin use Blood-Gluco se Meter (Freestyle Taylors Lite) kit Active 0 .Route 1 0 2024 11:00p m As directed, to test blood sugar three times a day, DX E11.9, insulin use Lancets (Easy Comfort Lancets) 30 gauge misc Active 0 .Route 200 5 2024 11:00p m As directed to check blood sugars three times a day, DXE11.9, insulin use Prednisone 20 mg tablet Discont inued 10 MG PO every day Octobe r 2024 10:20a m Octob er 2024 1:41p m Pantoprazol e 40 mg tablet,craig yed release (DR/EC) Active 40 MG PO every day 90 4 2024 12:00p m take 1 tablet by mouth once daily Unknown Furosemide 20 mg tablet Discont inued 40 MG PO TWICE A DAY Septem frankie 2024 6:10am Octob er 2024 10:32 am increased at 01/23/25 Insulin Lispro (Admelog U-100 Insulin Lispro) 100 unit/mL solution Discont inued 7 UNIT SUBQ .AC frankie 2024 11:00p m Septe mber 2024 2:24p m Insulin Lispro (Admelog U-100 Insulin Lispro) 100 unit/mL solution Discont inued 1 slidin g scale dose SUBQ use as directed Sept frankie 2024 11:00p m Septe mber 2024 2:24p m Azithromyci n 500 mg tablet Discont inued 500 MG PO every day Septem frankie 2024 11:00p m Octob er 2024 1:38p m Patient to take for at least 9 months (through 10/23/2025) Insulin Glargine (Lantus Solostar U-100 Insulin) 100 unit/mL (3 mL) insulin pen Discont inued 20 UNIT SUBQ EVERY EVENING Sept frankie 2024 11:00p m Septe mber 2024 2:27p m Torsemide 10 mg tablet Discont inued 10 MG PO TWICE A DAY Octobe r 2024 11:00p m [facility] frankie 2024 5:23p m Guaifenesin 600 mg tablet extended release 12hr Discont inued 600 MG PO TWICE A DAY Octobe r 2024 11:00p m Octob er 2024 1:39p m Potassium Chloride (K-Tab) 20 mEq tablet extended release Active 20 MEQ PO TWICE A DAY Octo be r 2024 11:00p m Unknown Immunizations Immunization Event Date Not Given Reason Dose Number P 3 [employer]ament/[employer]dn[employer] 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 Lot Number Reason(s) Given Vaccine Information Statement (VIS) Detail Administration Location COVID-19 (Pfizer) Bivalent Booster, 12Y+ Novemb er 2021 COVID-19 (Pfizer) Decemb er 2020 [id number] Covid-19 Seasonal 12+ Octobe r 2022 [id number] Covid-19 Seasonal 12+ Novemb er 2023 [id number] R July 22, 2020 [id number] R August 12, 2020 Flu Vaccine [id number] Septem frankie 2011 Flu Vaccine HD [id number] Octobe r 2019 Flu Vaccine HD [id number] (Fluzone) Octobe r 2024 [id number] Primary Ca re [place] HD FLU VACCINE 2019- Septem frankie , 2012 HD FLU VACCINE 2019- Octobe r 2013 HD FLU VACCINE 2019- Septem frankie , 2014 HD FLU VACCINE 2019- Octobe r 2015 HD FLU VACCINE 2019- Septem frankie , 2016 HD FLU VACCINE 2019- Septem frankie , 2017 HD FLU VACCINE 2019- Octobe r 2018 Pneumococcal Polysaccharid e Septem frankie 2016 Influenza, Quadrivalent, Adjuvanted Decemb er 2020 Influenza, Quadrivalent, Adjuvanted Octobe r 2022 Respiratory Syncytial Virus (Arexvy) Februa ry 2023 [id number] Advance Directives Advance Directive Response Recorded Date/ Time Advance Directives Yes April 10:29am Advance Directives On File No Decem 2021 10:29am Insurance Providers Guarantor BASIA العراقي Address [address] [facility] [address] Contact Info. Home Phone: Coverage Status Update:2024 Payer Group Member ID Coverage Type Subscriber Relationship to Subscriber Effective Date Expiration Date For Life [id number] null BASIA Gonzalo العراقي Id: [id number] [address] [facility] [address] Home Phone: Email: [email or web address] [email or web address] Self Medicare A and B [id number] null BASIA Gonzalo العراقي Id: [id number] [address] [facility] [address] Home Phone: Email: [email or web address] Self 2000 Encounters Encounter Location(s) Arrival/Admit Date Discharge/Departure Date Discharge/Departure Disposition Provider(s) Departed Clinical -Emergency Medical Services April 16, 2025 8:09pm April 16, 2025 8:10pm Discharged to home care or self care (routine discharge) EMS DOC
[2025-05-06] VITALS (13 sets, daily range): BP systolic 108–145; BP diastolic 50–65; PULSE 77–86; RESP 12–24; TEMP 36.4–37.1; O2SAT 96–100; BMI 46.3
[2025-05-06] MEDS: ONDANSETRON 4 MG/2 ML INJ IM (15:04)
--- NOTE | 2025-05-06 15:19 | EKG_ITS ---
[facility] [address] [place] [address] Test Date: 2025-05-06 Pat Name: Lida [place] Department: [facility] Room: Gender: Female Database Coordinator: ANTONIO : 1935 Requested By: Order Number: [id number] Reading MD: Robby Whitney MD Measurements Intervals [place] Rate: 82 P: 60 [place]: 216 QRS: 92 QRSD: 82 T: 57 QT: 422 QTc: 493 Interpretive Statements Sinus rhythm with 1st degree AV block with occasional premature ventricular complexes Possible Right ventricular hypertrophy Prolonged QT Electronically Signed On 05-06-2025 17:17:11 PST by Robby Whitney MD
--- NOTE | 2025-05-06 15:19 | DI.RAD.S_ITS ---
PROCEDURE: XR CHEST 1V INDICATIONS: chf TECHNIQUE: One view of the chest was acquired. COMPARISON: [facility], CR, XR CHEST 1V, 04/26/2025, 10:58. FINDINGS: Surgical changes and devices: None. Lungs and pleura: Lungs are clear. No pleural effusions or pneumothorax. Mediastinum: The cardiomediastinal contours remain stable with enlargement of the cardiac silhouette. Bones and chest wall: No suspicious bony lesions. Overlying soft tissues appear unremarkable. IMPRESSION: Cardiomegaly. No acute cardiopulmonary abnormalities. No focal consolidation. Dictated by: Volodymyr Velasquez M.D. on 05/06/2025 at 16:40 Approved by: Volodymyr Velasquez M.D. on 05/06/2025 at 16:41
--- NOTE | 2025-05-06 15:25 | ED_ITS ---
<Statement entered by Robby Deleon, DO - 05/06/25 22:58> Co-sign statement: I was available for consultation during this patient's emergency department visit. This chart is being signed by myself for administrative purposes only. I do not have direct contact with this patient during this visit. They were seen independently by the APC. HPI - Allergic Reaction General Chief complaint: Allergic Reaction Stated complaint: Low blood sugar Time Seen by Provider: 05/06/25 14:19 Source: patient and family Mode of arrival: EMS History of Present Illness HPI narrative: 89-year-old female with past medical history CHF, CAD status post 6 stents, COPD, insulin-dependent diabetes, hyperlipidemia, hypertension presents to the ED for nausea, diarrhea, chills, feeling poorly. Patient is on 3 L of oxygen via nasal cannula for COPD. Patient also registered a fasting blood sugar of 59 this morning which is low for the patient. No chest pain, shortness of breath, fever, vomiting, dysuria, lightheadedness, dizziness, syncope. Patient was recently hospitalized for a CHF exacerbation, had an extended stay in the hospital and discharged home on 05/01/2025. Related Data Home Medications ?Medication ?Instructions ?Recorded ?Confirmed aspirin 81 mg tablet,delayed 81 mg PO DAILY ##0 04/17/25 release nitroglycerin 0.4 mg sublingual 1 tab sublingual Q5MIN X3 PRN Chest 11/18/18 04/17/25 tablet Pain rosuvastatin 40 mg tablet 40 mg PO QPM 11/18/18 escitalopram oxalate 20 mg tablet 20 mg PO DAILY 03/0604/17/25 pantoprazole 40 mg tablet,delayed 40 mg PO DAILY 03/0604/17/25 release acetaminophen 300 mg-codeine 30 mg 1 tab PO BID PRN pa in 07/03/24 04/17/25 tablet ipratropium 0.5 mg-albuterol 3 mg 3 ml inhalation D IRECTED PRN 07/03/24 04/17/25 (2.5 mg base)/3 mL nebulization sob, wheezing soln ranolazine 500 mg tablet,extended 500 mg PO BID 04/17/25 release,12 hr lancets 28 gauge (FreeStyle 02/03/25 04/17/25 Lancets) insulin glargine 100 unit/mL (3 28 unit SUBCUT BEDTIME 04/27/25 04/27/25 mL) subcutaneous pen (Lantus Solostar U-100 Insulin) Previous Rx's ?Medication ?Instructions ?Recorded guaifenesin 600 mg tablet, 600 mg PO BID #60 tabs 01/13 06/08 extended release 12 hr (Mucus Relief ER) insulin lispro 100 unit/mL 0 unit (0 mL) SUBCUT ACHS # 30 mL 01/23/25 subcutaneous solution (Admelog U-100 Insulin lispro) insulin lispro 100 unit/mL 7 unit (0.07 mL) SUBCUT AC #30 mL 01/23/25 subcutaneous solution (Admelog U-100 Insulin lispro) miscellaneous medical supply #100 ea 01/23/25 nystatin 100,000 unit/gram topical 1 applic topical BI D #120 grams 01/23/25 ointment nystatin 100,000 unit/mL oral 100,000 unit PO QID #500 mL 01/23/25 suspension metoprolol tartrate 25 mg tablet 12.5 mg (1/2 x 25 mg) PO BID #30 02/13/25 tabs potassium chloride 20 mEq 20 meq PO BID #60 tabs 02/13 tablet,extended release torsemide 10 mg tablet 10 mg PO BID #60 tabs lisinopril 20 mg tablet 40 mg (2 x 20 mg) PO DAILY # 30 tabs 05/01/25 prednisone 10 mg tablet 10 mg PO DIRECTED #30 tab s 05/01/25 Allergies Allergy/AdvReac Type Severity Reaction Status Date / Time Iodinated Contrast Media Allergy Severe Unconscious Verified 05/06/25 13:02 (IODINATED CONTRAST- ORAL AND IV DYE) morphine (MORPHINE) Allergy Severe Rash Verified 05/06/25 13:02 telmisartan (TELMISARTAN) Allergy Severe Rash Verified 05/06/25 13:02 Review of Systems Constitutional Constitutional: Reports chills, Reports fatigue, Denies fever(s), Denies frequent falls, Denies lethargy and Denies weakness Eyes Eyes: Denies change in vision, Denies eye discharge, Denies irritation and Denies loss of vision ENT Ears, Nose, Mouth, and Throat: Denies change in voice, Denies dizziness, Denies neck pain, Denies sore throat and Denies throat swelling Cardiovascular Cardiovascular: Denies chest pain, Denies irregular heart rhythm, Denies lightheadedness, Denies palpitations, Denies dyspnea, Denies dyspnea on exertion and Denies orthopnea Respiratory Respiratory: Denies cough, Denies dyspnea, Denies dyspnea on exertion and Denies wheezing Gastrointestinal Gastrointestinal: Denies abdominal pain, Denies change in bowel habits, Reports diarrhea, Reports nausea and Denies vomiting Musculoskeletal Musculoskeletal: Denies neck pain and Denies numbness Integumentary/Breasts Skin/Breast: Denies pruritus, Denies erythema, Denies rash and Denies wounds Neurologic Neurologic: Denies behavioral changes, Denies confusion, Denies dizziness, Denies frequent falls, Denies loss of vision, Denies numbness and Denies weakness Psychiatric Psychiatric: Denies anxiety, Denies behavioral changes, Denies confusion, Denies depression, Denies homicidal ideation and Denies suicidal ideation Endocrine Endocrine: Reports fatigue, Denies flushing and Denies palpitations Hematologic/Lymphatic Hematologic/Lymphatic: Denies easy bruising Allergic/Immunologic Allergic/Immunologic: Denies urticaria, Denies throat swelling and Denies wheezing Patient History Medical History Chronic respiratory failure with hypoxia Skin cancer NSTEMI (non-ST elevated myocardial infarction) Diastolic heart failure Cardiac arrest Chest pain Hypertension Hyperlipidemia Coronary artery disease Left hamstring muscle strain UTI (urinary tract infection) Surgical History H/O right heart catheterization History of breast implant removal History of breast surgery History of appendectomy History of cholecystectomy History of total abdominal hysterectomy History of coronary artery stent placement Family History Father Hypertension Diabetes mellitus Mother Hypertension [place] (myocardial infarction) Sister [place] (myocardial infarction) S/P CABG x 4 Social History household members: children alcohol intake: never alcohol intake frequency: holidays/special occasions only Exam Initial Vital Signs Initial Vital Signs: Vital Signs Pulse Rate 86 05/06/25 12:59 Respiratory Rate 16 05/06/25 12:59 Pulse Oximetry 98 05/06/25 12:59 Oxygen Delivery Method Nasal Cannula 05/06/25 12:59 Oxygen Flow Rate 2 05/06/25 12:59 Course Orders Ordered: ED Orders 05/06/25 15:19 XR chest 1V Stat EKG-12 Lead Stat 05/06/25 15:35 Complete Blood Count AUTO DIFF Stat Comprehensive Metabolic Panel Stat Lipase Stat Magnesium Stat NT-proBNP (BNP-Adult 18+) Stat Troponin I Stat 05/06/25 17:15 Urinalysis and Microscopic Stat 05/06/25 17:49 Troponin & CK Cardiac Panel Stat EKG-12 Lead Stat Discontinued Medications Aspirin (Aspirin 81 Mg Chew Tab) 324 mg PO NOW ONE Stop: 05/06/25 17:01 Last Admin: 05/06/25 17:06 Dose: 324 mg Documented By: OSCAR Furosemide 60 mg/ Sodium (Chloride) 56 mls @ 112 mls/hr IV NOW ONE Stop: 05/06/25 16:34 Last Infusion: 05/06/25 17:42 Dose: Infused Documented By: Admin: 05/06/25 17:07 Dose: 112 mls/hr Documented By: OSCAR Ondansetron HCl (Ondansetron 4 Mg/2 Ml Inj) 4 mg IM NOW ONE Stop: 05/06/25 15:04 Last Admin: 05/06/25 15:04 Dose: 4 mg Documented By: SHELLY Vital Signs Vital signs: Vital Signs - 8 hr 05/06/25 12:59 05/06/25 13:00 05/06/25 13:00 Temperature Pulse Rate 86 86 Respiratory Rate 16 Blood Pressure 131/63 Pulse Oximetry 98 97 Oxygen Delivery Method Nasal Cannula Oxygen Flow Rate 2 05/06/25 13:02 05/06/25 13:30 05/06/25 13:30 Temperature 97.8 F Pulse Rate 81 78 Respiratory Rate 17 12 Blood Pressure 131/63 130/60 Pulse Oximetry 98 99 Oxygen Delivery Method Room Air Room Air Oxygen Flow Rate 05/06/25 14:00 05/06/25 14:30 05/06/25 16:37 Temperature Pulse Rate 81 83 77 Respiratory Rate 15 20 18 Blood Pressure 145/64 H 135/60 126/57 L Pulse Oximetry 99 100 99 Oxygen Delivery Method Nasal Cannula Nasal Cannula Nasal Cannula Oxygen Flow Rate 2 2 2 05/06/25 17:00 05/06/25 17:30 05/06/25 18:00 Temperature Pulse Rate 82 80 79 Respiratory Rate 23 17 13 Blood Pressure 129/63 127/52 L 108/51 L Pulse Oximetry 99 99 99 Oxygen Delivery Method Nasal Cannula Nasal Cannula Nasal Cannula Oxygen Flow Rate 2 2 2 MDM - Allergic Reaction Lab Data 05/06/25 15:35 05/06/25 15:35 Labs: Lab Results 05/06/25 05/06/25 05/06/25 Range/Units 12:48 14:23 15:35 WBC 14.8 H (4.5-11.0) X10^3/uL RBC 4.69 (4.0-5.2) X10^6/uL Hgb 11.2 L (12.0-16.0) g/dL Hct 35.2 L (36-46) % MCV 75.2 L (80-100) fL MCH 23.9 L (26-34) PG MCHC 31.8 (30-36) % RDW 23.4 H (11.6-14.8) % Plt Count 180 (150-400) X10^3/uL Neut % (Auto) 84.1 H (50-75) % Lymph % (Auto) 10.3 L (25-40) % [place] % (Auto) 4.7 (3-14) % Eos % (Auto) 0.2 L (2-4) % Baso % (Auto) 0.7 (0-2) % Neut # (Auto) 53548 H (8059-9398) /uL Lymph # (Auto) 1500 (6817-8618) /uL [place] # (Auto) 700 (0-900) /uL Eos # (Auto) 0 (0-450) /uL Baso # (Auto) 100 (0-100) /uL RBC Morphology See below Poikilocytosis 1+ H Anisocytosis 1+ H Ovalocytes 1+ H Sodium 135 L (137-145) mmol/L Potassium 4.1 (3.4-5.1) mmol/L Chloride 95 L (98-107) mmol/L Carbon Dioxide 35 H (22-32) mmol/L BUN 32 H (7-17) mg/dL Creatinine 1.33 H (0.52-1.04) mg/dL Estimated GFR 39 L (>60) mL/min BUN/Creatinine Ratio 24.1 H (6-22) Glucose 121 H (70-99) mg/dL POC Whole Bld Glucose 109 H D 88 (70-99) mg/dL Calcium 8.9 (8.4-10.2) mg/dL Magnesium 1.9 (1.6-2.3) mg/dL Total Bilirubin 0.6 (0.2-1.3) mg/dL AST 44 H (14-36) IU/L ALT 21 (<35) IU/L Alkaline Phosphatase 53 (38-126) U/L Troponin I 0.206 H* (0.01-0.034) ng/mL NT-Pro-B Natriuret Pep 2030 H (<450) pg/mL Total Protein 5.9 L (6.3-8.2) g/dL Albumin 3.4 L (3.5-5.0) g/dL Globulin 2.5 (1.7-4.1) g/dL Albumin/Globulin Ratio 1.4 (1.0-2.8) Lipase 138 (23-300) U/L Urine Color Urine Appearance Urine pH (4.5-8.0) Ur Specific [place] (1.000-1.035) Urine Protein (Negative) Urine Glucose (UA) (Negative) g/dL Urine Ketones (NEGATIVE) Urine Occult Blood (Negative) Urine Nitrate (Negative) Urine Bilirubin (NEGATIVE) Urine Urobilinogen (0.2) E.U./dL Ur Leukocyte Esterase (NEGATIVE) Urine RBC (0-5/HPF) Urine WBC (0-5/HPF) Ur Squamous Epith Cells (0-5/HPF) Urine Bacteria (None) Urine Mucus (Negative) Urine Yeast (None) Ur Culture Indicated? Vol Urine Centrifuged 05/06/25 Range/Units 17:15 WBC (4.5-11.0) X10^3/uL RBC (4.0-5.2) X10^6/uL Hgb (12.0-16.0) g/dL Hct (36-46) % MCV (80-100) fL MCH (26-34) PG MCHC (30-36) % RDW (11.6-14.8) % Plt Count (150-400) X10^3/uL Neut % (Auto) (50-75) % Lymph % (Auto) (25-40) % [place] % (Auto) (3-14) % Eos % (Auto) (2-4) % Baso % (Auto) (0-2) % Neut # (Auto) (3582-2132) /uL Lymph # (Auto) (5691-3993) /uL [place] # (Auto) (0-900) /uL Eos # (Auto) (0-450) /uL Baso # (Auto) (0-100) /uL RBC Morphology Poikilocytosis Anisocytosis Ovalocytes Sodium (137-145) mmol/L Potassium (3.4-5.1) mmol/L Chloride (98-107) mmol/L Carbon Dioxide (22-32) mmol/L BUN (7-17) mg/dL Creatinine (0.52-1.04) mg/dL Estimated GFR (>60) mL/min BUN/Creatinine Ratio (6-22) Glucose (70-99) mg/dL POC Whole Bld Glucose (70-99) mg/dL Calcium (8.4-10.2) mg/dL Magnesium (1.6-2.3) mg/dL Total Bilirubin (0.2-1.3) mg/dL AST (14-36) IU/L ALT (<35) IU/L Alkaline Phosphatase (38-126) U/L Troponin I (0.01-0.034) ng/mL NT-Pro-B Natriuret Pep (<450) pg/mL Total Protein (6.3-8.2) g/dL Albumin (3.5-5.0) g/dL Globulin (1.7-4.1) g/dL Albumin/Globulin Ratio (1.0-2.8) Lipase (23-300) U/L Urine Color Yellow Urine Appearance Clear Urine pH 5.0 (4.5-8.0) Ur Specific [place] 1.020 (1.000-1.035) Urine Protein 1+ H (Negative) Urine Glucose (UA) Negative (Negative) g/dL Urine Ketones Trace H (NEGATIVE) Urine Occult Blood 2+ H (Negative) Urine Nitrate Negative (Negative) Urine Bilirubin Negative (NEGATIVE) Urine Urobilinogen 0.2 (0.2) E.U./dL Ur Leukocyte Esterase Negative (NEGATIVE) Urine RBC 1-5/hpf (0-5/HPF) Urine WBC 0-1/hpf (0-5/HPF) Ur Squamous Epith Cells 0-1 /hpf (0-5/HPF) Urine Bacteria Many (>30) H (None) Urine Mucus 1+ H (Negative) Urine Yeast 0-1/hpf (None) Ur Culture Indicated? Cult not indicated Vol Urine Centrifuged 10ml (spun) MDM Narrative Medical decision making narrative: 89-year-old female with past medical history CHF, CAD status post 6 stents, COPD, insulin-dependent diabetes, hyperlipidemia, hypertension presents to the ED for nausea, diarrhea, chills, feeling poorly. Given that patient has some vague symptoms of feeling poorly and a history of CHF and COPD, will add on an ACS workup. Patient's nausea resolved with Zofran. Troponin is elevated to 0.206. BNP is elevated to 2030. WBC elevated to 14.8 which seems to be baseline for patient. Chest x-ray shows cardiomegaly, no other acute cardiopulmonary abnormalities. EKG is sinus rhythm with first- degree AV block with occasional PVCs. Prolonged QT. No acute ST-T changes. Will give Lasix IV, aspirin. Ring Striker Dr. Pearson was consulted. He is in agreement with diuresing for CHF exacerbation. Recommends admitting, diuresing. He will consult as needed. Hospitalist Dr. Adan was consulted, he graciously accepts the patient as an inpatient admission. Discussed findings and plan with patient. She is agreeable with the plan. Patient admitted. Medical records reviewed: Yes Discharge Plan Departure Patient Disposition: Admitted As Inpatient Clinical Impression: Acute CHF Qualifiers: Heart failure type: unspecified Qualified Code(s): I50.9 - Heart failure, unspecified Admit Date/Time: 05/06/25 19:22 Admit Provider: Guido Adan
[2025-05-06 15:52] LABS: Add Manual Diff / Slide Review NO; Hematocrit 35.2 % (36-46); Hemoglobin 11.2 g/dL (12.0-16.0); Lymphocytes Absolute Auto 1500 /uL (1100-4500); Mean Corpuscular HGB Conc 31.8 % (30-36); Mean Corpuscular Hemoglobin 23.9 PG (26-34); Mean Corpuscular Volume 75.2 fL (80-100); Platelet Count 180 X10^3/uL (150-400)
[2025-05-06 15:59] LABS: Alanine Aminotransferase 21 IU/L (<35); Albumin 3.4 g/dL (3.5-5.0); Albumin Globulin Ratio 1.4 (1.0-2.8); Alkaline Phosphatase 53 U/L (38-126); Blood Urea Nitrogen 32 mg/dL (7-17); Calcium 8.9 mg/dL (8.4-10.2); Carbon Dioxide 35 mmol/L (22-32); Chloride 95 mmol/L (98-107); Estimated Glomerular Filt Rate 39 mL/min (>60); Globulin 2.5 g/dL (1.7-4.1); Glucose 121 mg/dL (70-99); Lipase 138 U/L (23-300); Magnesium 1.9 mg/dL (1.6-2.3); Sodium 135 mmol/L (137-145); Total Protein 5.9 g/dL (6.3-8.2)
[2025-05-06 16:00] LABS: HEMOLYSIS 52 (0-50)
[2025-05-06 16:01] LABS: Potassium 4.1 mmol/L (3.4-5.1)
[2025-05-06 16:12] LABS: NT-proBNP (BNP-Adult 18+) 2030 pg/mL (<450)
[2025-05-06 16:13] LABS: Poikilocytosis 1+
[2025-05-06 16:14] LABS: Anisocytosis 1+; Ovalocytes 1+
[2025-05-06 16:17] LABS: Troponin I 0.206 ng/mL (0.01-0.034)
[2025-05-06] MEDS: ASPIRIN 81 MG CHEW TAB 324 MG PO (17:06)
[2025-05-06] MEDS: FUROSEMIDE 60 MG in SODIUM CHLORIDE 0.9% 50 ML 112 MG IV (17:07)
--- NOTE | 2025-05-06 17:49 | EKG_ITS ---
[facility] [address] [place] [address] Test Date: 2025-05-06 Pat Name: Lida [place] Department: [facility] Room: Gender: Female [employer]: : 1935 Requested By: Order Number: [id number] Reading MD: Robby Whitney MD Measurements Intervals [place] Rate: 83 P: 81 CT: 196 QRS: 100 QRSD: 84 T: 36 QT: 450 QTc: 528 Interpretive Statements Sinus rhythm with premature atrial complexes Possible Right ventricular hypertrophy Prolonged QT Electronically Signed On 05-07-2025 7:52:21 PST by Robby Whitney MD
[2025-05-06 18:10] LABS: Appearance Urine UA CLEAR; Bilirubin Urine UA NEGATIVE (NEGATIVE); Color Urine UA YELLOW; Glucose Urine UA NEGATIVE (Negative); Ketones Urine UA TRACE (NEGATIVE); Leukocyte Esterase Urine UA NEGATIVE (NEGATIVE); Nitrite Urine UA NEGATIVE (Negative); Occult Blood Urine UA 2+ (Negative); Protein Urine UA 1+ (Negative); Specific Gravity Urine UA 1.020 (1.000-1.035); Urobilinogen Urine UA 0.2 E.U./dL (0.2)
[2025-05-06 18:20] LABS: pH Urine UA 5.0 (4.5-8.0)
[2025-05-06 18:21] LABS: Culture Indicated Urine Cult Not Indicated
[2025-05-06 20:32] LABS: Creatine Kinase 34 U/L (30-135)
[2025-05-06 20:44] LABS: Troponin I 0.221 ng/mL (0.01-0.034)
[2025-05-07] VITALS (8 sets, daily range): BP systolic 112–152; BP diastolic 62–73; PULSE 76–88; RESP 16–20; TEMP 36.5–37.1; O2SAT 96–100
[2025-05-07] MEDS: FUROSEMIDE 40 MG/4 ML VIAL IV ×3 (04:16→20:00)
[2025-05-07 06:27] LABS: Blood Urea Nitrogen 29 mg/dL (7-17); Calcium 8.4 mg/dL (8.4-10.2); Carbon Dioxide 32 mmol/L (22-32); Chloride 99 mmol/L (98-107); Estimated Glomerular Filt Rate 48 mL/min (>60); Glucose 170 mg/dL (70-99); Sodium 133 mmol/L (137-145)
[2025-05-07 06:28] LABS: Add Manual Diff / Slide Review NO; Hematocrit 32.8 % (36-46); Hemoglobin 10.7 g/dL (12.0-16.0); Lymphocytes Absolute Auto 2000 /uL (1100-4500); Mean Corpuscular HGB Conc 32.6 % (30-36); Mean Corpuscular Hemoglobin 24.2 PG (26-34); Mean Corpuscular Volume 74.3 fL (80-100)
[2025-05-07 06:48] LABS: HEMOLYSIS 57 (0-50); Potassium 4.3 mmol/L (3.4-5.1)
--- NOTE | 2025-05-07 06:53 | PM.HP.1 ---
History of Present Illness History of Present Illness Date Patient Seen: 05/07/25 Time Patient Seen: 00:25 Chief complaint: Low blood sugar Narrative: 89-year-old female with past medical history of CHF, coronary disease status post stents, COPD on 3 L of oxygen per nasal cannula at baseline, hyperlipidemia and hypertension presents with nausea, vomiting and diarrhea. Per the patient's report, over the last 1 to 2 days, the patient has been feeling overall poorly. The patient also admits to have some nausea, vomiting and nonbloody diarrhea. The patient has subjective fever and chills today. The patient was noted to have a glucose of 59 this morning. Otherwise the patient denies any chest pain, dysuria, shortness of breath or syncope. The patient admitted to have some lower extremity bilateral edema. Of note the patient recently was admitted here for CHF and was discharged on 05/01/2025. In the emergency room, the patient was hemodynamically stable but was requiring up to 3 L of oxygen per nasal cannula. WBC was 14 creatinine 1.33 BNP 2030 troponin 0.20 UA was negative. Case was discussed with Dr. Blake cardiology who recommended that we admit the patient continued diuresis due to heart failure exacerbation. IV Lasix was given as well as aspirin. No EKG shows no acute changes in T wave or ST segment. Chest x-ray shows no acute finding. [facility] Medical History Chronic respiratory failure with hypoxia Skin cancer NSTEMI (non-ST elevated myocardial infarction) Diastolic heart failure Cardiac arrest Chest pain Hypertension Hyperlipidemia Coronary artery disease Left hamstring muscle strain UTI (urinary tract infection) Surgical History H/O right heart catheterization History of breast implant removal History of breast surgery History of appendectomy History of cholecystectomy History of total abdominal hysterectomy History of coronary artery stent placement Family History Father Hypertension Diabetes mellitus Mother Hypertension PR (myocardial infarction) Sister PR (myocardial infarction) S/P CABG x 4 Social History household members: children Smoking Status: Never smoker alcohol intake: never Meds Home Medications and Allergies Home Medications ?Medication ?Instructions ?Recorded ?Confirmed ?Type aspirin 81 mg tablet,delayed 81 mg PO DAILY ##0 05/14/17 05/06/25 History release nitroglycerin 0.4 mg sublingual 1 tab sublingual [id number] PRN Chest 11/18/18 05/06/25 History tablet Pain rosuvastatin 40 mg tablet 40 mg PO QPM 11/18/18 05/06/25 History escitalopram oxalate 20 mg tablet 20 mg PO DAILY 03/06/21 05/06/25 History pantoprazole 40 mg tablet,delayed 40 mg PO DAILY 03/06/21 05/06/25 History release acetaminophen 300 mg-codeine 30 mg 1 tab PO BID PRN pain 07/03/24 05/06/25 History tablet ipratropium 0.5 mg-albuterol 3 mg 3 ml inhalation DIRECTED PRN 07/03/24 05/06/25 History (2.5 mg base)/3 mL nebulization sob, wheezing soln ranolazine 500 mg tablet,extended 500 mg PO BID 07/03/24 05/06/25 History release,12 hr guaifenesin 600 mg tablet, 600 mg PO BID #60 tabs 01/23/25 05/06/25 Rx extended release 12 hr (Mucus Relief ER) insulin lispro 100 unit/mL 0 unit (0 mL) SUBCUT ACHS #30 mL 01/23/25 05/06/25 Rx subcutaneous solution (Admelog U-100 Insulin lispro) insulin lispro 100 unit/mL 7 unit (0.07 mL) SUBCUT AC #30 mL 01/23/25 05/06/25 Rx subcutaneous solution (Admelog U-100 Insulin lispro) miscellaneous medical supply #100 ea 01/23/25 04/17/25 Rx nystatin 100,000 unit/gram topical 1 applic topical BID #120 grams 01/23/25 05/06/25 Rx ointment nystatin 100,000 unit/mL oral 100,000 unit PO QID #500 mL 01/23/25 05/06/25 Rx suspension lancets 28 gauge (FreeStyle 02/03/25 04/17/25 History Lancets) metoprolol tartrate 25 mg tablet 12.5 mg (1/2 x 25 mg) PO BID #30 02/13/25 05/06/25 Rx tabs potassium chloride 20 mEq 20 meq PO BID #60 tabs 02/13/25 05/06/25 Rx tablet,extended release torsemide 10 mg tablet 10 mg PO BID #60 tabs 02/13/25 05/06/25 Rx insulin glargine 100 unit/mL (3 28 unit SUBCUT BEDTIME 04/27/25 05/06/25 History mL) subcutaneous pen (Lantus Solostar U-100 Insulin) lisinopril 20 mg tablet 40 mg (2 x 20 mg) PO DAILY #30 tabs 05/01/25 05/06/25 Rx prednisone 10 mg tablet 10 mg PO DIRECTED #30 tabs 05/01/25 05/06/25 Rx Allergies Allergy/AdvReac Type Severity Reaction Status Date / Time Iodinated Contrast Media Allergy Severe Unconscious Verified 05/06/25 13:02 (IODINATED CONTRAST- ORAL AND IV DYE) morphine (MORPHINE) Allergy Severe Rash Verified 05/06/25 13:02 telmisartan (TELMISARTAN) Allergy Severe Rash Verified 05/06/25 13:02 Review of Systems Review of Systems ROS: Yes All systems reviewed with the patient and are negative except as otherwise documented Exam Vital Signs (past 8 hours): - 05/07/25 03:00 Temperature 97.7 F Pulse Rate 82 Respiratory Rate 20 Blood Pressure 152/73 H Pulse Oximetry 97 Oxygen Flow Rate 2 Oxygen Delivery Method Nasal Cannula,CPAP Oxygen Flow Rate 2 Narrative Exam Narrative: Physical Exam: GENERAL: The patient is not in any acute distressed. Awake and alert. HEENT: Nonicteric sclerae, PERRLA, EOMI. Oropharynx clear. Moist mucous membranes. Conjunctivae appear well perfused. HEART: Regular rate and rhythm without murmurs. 2+ lower extremities edema. LUNGS: Clear to auscultation bilaterally. No wheezing, crackles or rhonchi ABDOMEN: Soft, positive bowel sounds, nontender. SKIN: No rash, no excessive bruising, petechiae, or purpura. NEUROLOGIC: AxO x 3. Cranial nerves II-XII intact without motor/sensory deficit. Objective Labs 05/07/25 06:00 05/07/25 06:00 Labs: Laboratory Results - last 24 hr 05/06/25 05/06/25 05/06/25 12:48 14:23 15:35 WBC 14.8 H RBC 4.69 Hgb 11.2 L Hct 35.2 L MCV 75.2 L MCH 23.9 L MCHC 31.8 RDW 23.4 H Plt Count 180 Neut % (Auto) 84.1 H Lymph % (Auto) 10.3 L [place] % (Auto) 4.7 Eos % (Auto) 0.2 L Baso % (Auto) 0.7 Neut # (Auto) 69750 H Lymph # (Auto) 1500 [place] # (Auto) 700 Eos # (Auto) 0 Baso # (Auto) 100 RBC Morphology See below Poikilocytosis 1+ H Anisocytosis 1+ H Ovalocytes 1+ H Sodium 135 L Potassium 4.1 Chloride 95 L Carbon Dioxide 35 H BUN 32 H Creatinine 1.33 H Estimated GFR 39 L BUN/Creatinine Ratio 24.1 H Glucose 121 H POC Whole Bld Glucose 109 H D 88 Calcium 8.9 Magnesium 1.9 Total Bilirubin 0.6 AST 44 H ALT 21 Alkaline Phosphatase 53 Total Creatine Kinase Troponin I 0.206 H* NT-Pro-B Natriuret Pep 2030 H Total Protein 5.9 L Albumin 3.4 L Globulin 2.5 Albumin/Globulin Ratio 1.4 Lipase 138 Urine Color Urine Appearance Urine pH Ur Specific [place] Urine Protein Urine Glucose (UA) Urine Ketones Urine Occult Blood Urine Nitrate Urine Bilirubin Urine Urobilinogen Ur Leukocyte Esterase Urine RBC Urine WBC Ur Squamous Epith Cells Urine Bacteria Urine Mucus Urine Yeast Ur Culture Indicated? Vol Urine Centrifuged 05/06/25 05/06/25 05/06/25 17:15 19:52 20:07 WBC RBC Hgb Hct MCV MCH MCHC RDW Plt Count Neut % (Auto) Lymph % (Auto) [place] % (Auto) Eos % (Auto) Baso % (Auto) Neut # (Auto) Lymph # (Auto) [place] # (Auto) Eos # (Auto) Baso # (Auto) RBC Morphology Poikilocytosis Anisocytosis Ovalocytes Sodium Potassium Chloride Carbon Dioxide BUN Creatinine Estimated GFR BUN/Creatinine Ratio Glucose POC Whole Bld Glucose 172 H Calcium Magnesium Total Bilirubin AST ALT Alkaline Phosphatase Total Creatine Kinase 34 Troponin I 0.221 H* NT-Pro-B Natriuret Pep Total Protein Albumin Globulin Albumin/Globulin Ratio Lipase Urine Color Yellow Urine Appearance Clear Urine pH 5.0 Ur Specific [place] 1.020 Urine Protein 1+ H Urine Glucose (UA) Negative Urine Ketones Trace H Urine Occult Blood 2+ H Urine Nitrate Negative Urine Bilirubin Negative Urine Urobilinogen 0.2 Ur Leukocyte Esterase Negative Urine RBC 1-5/hpf Urine WBC 0-1/hpf Ur Squamous Epith Cells 0-1 /hpf Urine Bacteria Many (>30) H Urine Mucus 1+ H Urine Yeast 0-1/hpf Ur Culture Indicated? Cult not indicated Vol Urine Centrifuged 10ml (spun) 05/07/25 06:00 WBC 14.3 H RBC 4.42 Hgb 10.7 L Hct 32.8 L MCV 74.3 L MCH 24.2 L MCHC 32.6 RDW 23.4 H Plt Count Neut % (Auto) 80.5 H Lymph % (Auto) 14.2 L [place] % (Auto) 4.5 Eos % (Auto) 0.2 L Baso % (Auto) 0.6 Neut # (Auto) 80266 H Lymph # (Auto) 2000 [place] # (Auto) 600 Eos # (Auto) 0 Baso # (Auto) 100 RBC Morphology Poikilocytosis Anisocytosis Ovalocytes Sodium 133 L Potassium 4.3 Chloride 99 Carbon Dioxide 32 BUN 29 H Creatinine 1.12 H Estimated GFR 48 L BUN/Creatinine Ratio 25.9 H Glucose 170 H POC Whole Bld Glucose Calcium 8.4 Magnesium Total Bilirubin AST ALT Alkaline Phosphatase Total Creatine Kinase Troponin I NT-Pro-B Natriuret Pep Total Protein Albumin Globulin Albumin/Globulin Ratio Lipase Urine Color Urine Appearance Urine pH Ur Specific [place] Urine Protein Urine Glucose (UA) Urine Ketones Urine Occult Blood Urine Nitrate Urine Bilirubin Urine Urobilinogen Ur Leukocyte Esterase Urine RBC Urine WBC Ur Squamous Epith Cells Urine Bacteria Urine Mucus Urine Yeast Ur Culture Indicated? Vol Urine Centrifuged Assessment & Plan Assessment & Plan narrative: Acute on chronic heart failure exacerbation. Admission to medical telemetry as patient. Continue IV Lasix with strict I's and O and daily weight. Monitor renal function and urine output. Chronic respiratory failure with hypoxemia. Of note patient is still on 3 L of oxygen per nasal cannula. She as above and continue to monitor respiratory status. COPD. No clear signs of exacerbation. Resume inhalers and nebs. Slightly elevated troponin. 0.2. Likely demand ischemia. EKG shows no sign of acute ischemia. Plan for now. Transient hypoglycemia. Glu was in 50s. Now improved with D50. HOld all insulin and monitor for now. Allow patient to eat regular diet. Depression. Resume home medication Insulin-dependent diabetes. Hold all insulin due to initial hypoglycemia. Hypertension. Monitor blood pressure and resume home medication accordingly. GERD. Resume PPI. Hyperlipidemia. Resume home statin. DVT prophylaxis CDs heparin subcu. CODE STATUS full code. Disposition likely home in 2 days - As the provider of this telehealth evaluation, requested by the patient's evaluating physician, I attest that I introduced myself to the patient, provided my credentials and determined that telemedicine via a real-time, 2 way interactive audio and video platform is an appropriate and effective means of providing this service. - I reviewed the patient's chart and had a discussion with the member of the patient's treatment team. - The patient and I mutually agreed with continuation of this evaluation via telemedicine. The patient consented for the telemedicine evaluation. - This virtual encounter was taken place from [place] by Dr. Guido Adan. The patient was evaluated at [facility]. The encounter was approximately 35 minutes. The nurse was present during the entire time of the encounter and was able assists with the stethoscope to listen to the patients. Time-Based Coding :: [TOTAL MINUTES] spent with patient and on the chart (including review of chart, obtaining history, exam, reviewing outside data, placing orders, documenting exam and treatment plan, and counseling patient) on [DATE].
[2025-05-07 06:58] LABS: Anisocytosis 2+; Ovalocytes 1+
[2025-05-07 06:59] LABS: Microcytosis 1+
[2025-05-07] MEDS: RANOLAZINE 500 MG TAB.ER.12H PO ×2 (08:48→21:50)
[2025-05-07] MEDS: METOPROLOL IR 25 MG TABLET 12.5 MG PO ×2 (08:48→21:50)
[2025-05-07] MEDS: PANTOPRAZOLE DR 40 MG TABLET PO (08:48)
[2025-05-07] MEDS: ESCITALOPRAM 10 MG TABLET 20 MG PO (08:48)
[2025-05-07] MEDS: POTASSIUM CHLORIDE 20 MEQ TAB PO ×2 (08:48→21:50)
[2025-05-07] MEDS: ASPIRIN EC 81 MG TABLET PO (08:48)
[2025-05-07] MEDS: ALBUTEROL/IPRATROPIUM 3 ML AMPUL INH (09:11)
--- NOTE | 2025-05-07 13:56 | CM.DANOTE ---
Initial DCP Assessment Note. Review EMR and PT Interview. Met with patient at bedside to discuss discharge needs.PT is alert x 4 sitting up in bed. No acute distress. Dependent. Lives adult disabled son. Other family close by. DME and home oxygen. Payor:??[facility] PCP: ?MI Bass Summary & Plan:?89 y/o female arrived to ED via EMS c/o Low Blood sugar and N/V/D. Admitted INPT. Dx. CHF Exacerbation. Plan: IV Lasix and IV Abx. Recheck labs in AM. PT Eval. Discharge Planning/Care Management CM Discharge Assessment Start: 05/06/25 20:11 Freq: Status: Active Protocol: Document 05/07/25 13:52 SM (Rec: 05/07/25 13:55 SM [id number]) Discharge Planning Assessment Assigned Discharge Alice Villalobos RN CM Central Supply Technician Provider [place] Bass Insurance Medicare Advance Directives? Yes Advance Directives No on File History Provided By Patient,Family Member,Medical Record Has Patient been Yes admitted in last 30 days? Prior Living House Arrangements Household Members children Type of Relies on Others transporation used prior to admit Independent with ADL No 's Is patient alert and Yes oriented? Needs Assistance Bathing,Eating,Grooming,Meal Prep,Toileting,Managing With Medications,Home Chores / Shopping Caregiver for No Another Community Services Oxygen Therapy,Home Health Aid,Home Health Nurse used prior to admission: Comment [facility] Already Rented / Bath Bench,Wheelchair,FWW / Walker,Oxygen Owned Comment CPAP , home O2 2-3 L at baseline. Electric scooter Patient/Family Home with Home Health Preference Comment Patient lives with family, good support system. Discharge Plan Home with Home Health Transportation Family local and able to transport at d/c. Patient uses [facility] at times. Referrals Initiated Home Health Additional Comment Resumption orders needed for [facility] Review Status In Process Please Provide Date 05/07/25 Initial DC Assessment Was Performed Next Review Type Continued Stay Review
[2025-05-07] MEDS: metroNIDAZOLE 500 MG/100 ML PIGGYBACK 100 MG IV ×2 (15:36→22:32)
--- NOTE | 2025-05-07 18:05 | PM.HP.1 ---
History of Present Illness History of Present Illness Date Patient Seen: 05/07/25 Time Patient Seen: 11:00 Chief complaint: Low blood sugar acute exacerbation of chronic misha Narrative: Chief complaint: Voluminous diarrhea weakness and acute exacerbation of chronic congestive heart failure History of present illness: 89-year-old female with past medical history of CHF, coronary disease status post stents, COPD on 3 L of oxygen per nasal cannula at baseline, hyperlipidemia and hypertension presents with nausea, vomiting and diarrhea. Per the patient's report, over the last 1 to 2 days, the patient has been feeling overall poorly. The patient also admits to have some nausea, vomiting and nonbloody diarrhea. The patient has subjective fever and chills today. The patient was noted to have a glucose of 59 this morning. Otherwise the patient denies any chest pain, dysuria, shortness of breath or syncope. The patient admitted to have some lower extremity bilateral edema. Of note the patient recently was admitted here for CHF and was discharged on 05/01/2025. In the emergency room, the patient was hemodynamically stable but was requiring up to 3 L of oxygen per nasal cannula. WBC was 14 creatinine 1.33 BNP 2030 troponin 0.20 UA was negative. Case was discussed with Dr. Blake cardiology who recommended that we admit the patient continued diuresis due to heart failure exacerbation. IV Lasix was given as well as aspirin. No EKG shows no acute changes in T wave or ST segment. Chest x-ray shows no acute finding. [facility] Medical History Chronic respiratory failure with hypoxia Skin cancer NSTEMI (non-ST elevated myocardial infarction) Diastolic heart failure Cardiac arrest Chest pain Hypertension Hyperlipidemia Coronary artery disease Left hamstring muscle strain UTI (urinary tract infection) Surgical History H/O right heart catheterization History of breast implant removal History of breast surgery History of appendectomy History of cholecystectomy History of total abdominal hysterectomy History of coronary artery stent placement Review of systems: No fever or chills rigors No chest pain palpitations No paresthesia paresis Physical examination: Acute oriented elderly female No acute distress HEENT unremarkable Heart irregularly irregular Lungs diminished breath sounds Extremities 2 to 3+ edema lower extremities Assessment and plan: Acute diarrheal illness Empiric intravenous Flagyl GI panel Acute chronic diastolic congestive heart failure with acute on chronic hypoxic respiratory failure Aggressive diuresis Daily intake and output Acute exacerbation of COPD: Corticosteroid diet bronchodilators Community-acquired pneumonia Ceftriaxone azithromycin Likely only due to enterovirus rhinovirus Chronic coronary artery disease No signs of complication Morbid obesity: Complicates management DVT prophylaxis: Subcutaneous heparin Code status: Full code blue Disposition: Inpatient treatment anticipate 2-3 days of hospitalization Time based billin minutes were evaluated and involved in this patient with [id number] evaluation physical examination discussion with patient and head resident review of past medical history objective laboratory and object and imaging findings including direct visualization imaging and discussion with care team [facility] Medical History Chronic respiratory failure with hypoxia Skin cancer NSTEMI (non-ST elevated myocardial infarction) Diastolic heart failure Cardiac arrest Chest pain Hypertension Hyperlipidemia Coronary artery disease Left hamstring muscle strain UTI (urinary tract infection) Surgical History H/O right heart catheterization History of breast implant removal History of breast surgery History of appendectomy History of cholecystectomy History of total abdominal hysterectomy History of coronary artery stent placement Family History Father Hypertension Diabetes mellitus Mother Hypertension [place] (myocardial infarction) Sister [place] (myocardial infarction) S/P CABG x 4 Social History household members: children Smoking Status: Never smoker alcohol intake: never Meds Home Medications and Allergies Home Medications ?Medication ?Instructions ?Recorded ?Confirmed ?Type aspirin 81 mg tablet,delayed 81 mg PO DAILY ##0 05/14/17 05/06/25 History release nitroglycerin 0.4 mg sublingual 1 tab sublingual [id number] PRN Chest 11/18/18 05/06/25 History tablet Pain rosuvastatin 40 mg tablet 40 mg PO QPM 11/18/18 05/06/25 History escitalopram oxalate 20 mg tablet 20 mg PO DAILY 03/06/21 05/06/25 History pantoprazole 40 mg tablet,delayed 40 mg PO DAILY 03/06/21 05/06/25 History release acetaminophen 300 mg-codeine 30 mg 1 tab PO BID PRN pain 07/03/24 05/06/25 History tablet ipratropium 0.5 mg-albuterol 3 mg 3 ml inhalation DIRECTED PRN 07/03/24 05/06/25 History (2.5 mg base)/3 mL nebulization sob, wheezing soln ranolazine 500 mg tablet,extended 500 mg PO BID 07/03/24 05/06/25 History release,12 hr guaifenesin 600 mg tablet, 600 mg PO BID #60 tabs 01/23/25 05/06/25 Rx extended release 12 hr (Mucus Relief ER) insulin lispro 100 unit/mL 0 unit (0 mL) SUBCUT ACHS #30 mL 01/23/25 05/06/25 Rx subcutaneous solution (Admelog U-100 Insulin lispro) insulin lispro 100 unit/mL 7 unit (0.07 mL) SUBCUT AC #30 mL 01/23/25 05/06/25 Rx subcutaneous solution (Admelog U-100 Insulin lispro) Apartamacellaneous medical supply #100 ea 01/23/25 04/17/25 Rx nystatin 100,000 unit/gram topical 1 applic topical BID #120 grams 01/23/25 05/06/25 Rx ointment nystatin 100,000 unit/mL oral 100,000 unit PO QID #500 mL 01/23/25 05/06/25 Rx suspension lancets 28 gauge (FreeStyle 02/03/25 04/17/25 History Lancets) metoprolol tartrate 25 mg tablet 12.5 mg (1/2 x 25 mg) PO BID #30 02/13/25 05/06/25 Rx tabs potassium chloride 20 mEq 20 meq PO BID #60 tabs 02/13/25 05/06/25 Rx tablet,extended release torsemide 10 mg tablet 10 mg PO BID #60 tabs 02/13/25 05/06/25 Rx insulin glargine 100 unit/mL (3 28 unit SUBCUT BEDTIME 04/27/25 05/06/25 History mL) subcutaneous pen (Lantus Solostar U-100 Insulin) lisinopril 20 mg tablet 40 mg (2 x 20 mg) PO DAILY #30 tabs 05/01/25 05/06/25 Rx prednisone 10 mg tablet 10 mg PO DIRECTED #30 tabs 05/01/25 05/06/25 Rx Allergies Allergy/AdvReac Type Severity Reaction Status Date / Time Iodinated Contrast Media Allergy Severe Unconscious Verified 05/06/25 13:02 (IODINATED CONTRAST- ORAL AND IV DYE) morphine (MORPHINE) Allergy Severe Rash Verified 05/06/25 13:02 telmisartan (TELMISARTAN) Allergy Severe Rash Verified 05/06/25 13:02 Exam Vital Signs (past 8 hours): - 05/07/25 11:00 05/07/25 15:30 Temperature 98.1 F 98.7 F Pulse Rate 85 82 Respiratory Rate 17 17 Blood Pressure 129/66 121/64 Pulse Oximetry 99 99 Oxygen Flow Rate 2 2.5 Oxygen Delivery Method CPAP Oxygen Flow Rate 2.5 Objective Labs 05/07/25 06:00 05/07/25 06:00 Labs: Laboratory Results - last 24 hr 05/06/25 05/06/25 05/06/25 17:15 19:52 20:07 WBC RBC Hgb Hct MCV MCH MCHC RDW Plt Count Neut % (Auto) Lymph % (Auto) [place] % (Auto) Eos % (Auto) Baso % (Auto) Neut # (Auto) Lymph # (Auto) [place] # (Auto) Eos # (Auto) Baso # (Auto) Platelet Estimate RBC Morphology Anisocytosis Microcytosis Ovalocytes Sodium Potassium Chloride Carbon Dioxide BUN Creatinine Estimated GFR BUN/Creatinine Ratio Glucose POC Whole Bld Glucose 172 H Calcium Total Creatine Kinase 34 Troponin I 0.221 H* Urine Color Yellow Urine Appearance Clear Urine pH 5.0 Ur Specific [place] 1.020 Urine Protein 1+ H Urine Glucose (UA) Negative Urine Ketones Trace H Urine Occult Blood 2+ H Urine Nitrate Negative Urine Bilirubin Negative Urine Urobilinogen 0.2 Ur Leukocyte Esterase Negative Urine RBC 1-5/hpf Urine WBC 0-1/hpf Ur Squamous Epith Cells 0-1 /hpf Urine Bacteria Many (>30) H Urine Mucus 1+ H Urine Yeast 0-1/hpf Ur Culture Indicated? Cult not indicated Vol Urine Centrifuged 10ml (spun) 05/07/25 05/07/25 05/07/25 06:00 08:51 11:51 WBC 14.3 H RBC 4.42 Hgb 10.7 L Hct 32.8 L MCV 74.3 L MCH 24.2 L MCHC 32.6 RDW 23.4 H Plt Count TNP Neut % (Auto) 80.5 H Lymph % (Auto) 14.2 L [place] % (Auto) 4.5 Eos % (Auto) 0.2 L Baso % (Auto) 0.6 Neut # (Auto) 64870 H Lymph # (Auto) 2000 [place] # (Auto) 600 Eos # (Auto) 0 Baso # (Auto) 100 Platelet Estimate Adequate on smear RBC Morphology See below Anisocytosis 2+ H Microcytosis 1+ H Ovalocytes 1+ H Sodium 133 L Potassium 4.3 Chloride 99 Carbon Dioxide 32 BUN 29 H Creatinine 1.12 H Estimated GFR 48 L BUN/Creatinine Ratio 25.9 H Glucose 170 H POC Whole Bld Glucose 185 H 144 H Calcium 8.4 Total Creatine Kinase Troponin I Urine Color Urine Appearance Urine pH Ur Specific [place] Urine Protein Urine Glucose (UA) Urine Ketones Urine Occult Blood Urine Nitrate Urine Bilirubin Urine Urobilinogen Ur Leukocyte Esterase Urine RBC Urine WBC Ur Squamous Epith Cells Urine Bacteria Urine Mucus Urine Yeast Ur Culture Indicated? Vol Urine Centrifuged 05/07/25 16:46 WBC RBC Hgb Hct MCV MCH MCHC RDW Plt Count Neut % (Auto) Lymph % (Auto) [place] % (Auto) Eos % (Auto) Baso % (Auto) Neut # (Auto) Lymph # (Auto) [place] # (Auto) Eos # (Auto) Baso # (Auto) Platelet Estimate RBC Morphology Anisocytosis Microcytosis Ovalocytes Sodium Potassium Chloride Carbon Dioxide BUN Creatinine Estimated GFR BUN/Creatinine Ratio Glucose POC Whole Bld Glucose 179 H Calcium Total Creatine Kinase Troponin I Urine Color Urine Appearance Urine pH Ur Specific [place] Urine Protein Urine Glucose (UA) Urine Ketones Urine Occult Blood Urine Nitrate Urine Bilirubin Urine Urobilinogen Ur Leukocyte Esterase Urine RBC Urine WBC Ur Squamous Epith Cells Urine Bacteria Urine Mucus Urine Yeast Ur Culture Indicated? Vol Urine Centrifuged Assessment & Plan Time-Based Coding :: [TOTAL MINUTES] spent with patient and on the chart (including review of chart, obtaining history, exam, reviewing outside data, placing orders, documenting exam and treatment plan, and counseling patient) on [DATE].
[2025-05-07] MEDS: ATORVASTATIN 20 MG TABLET 80 MG PO (21:49)
[2025-05-08 03:00] VITALS: BP 116/72; PULSE 82; RESP 21; TEMP 36.6; O2SAT 93
[2025-05-08] MEDS: FUROSEMIDE 40 MG/4 ML VIAL IV ×2 (04:00→13:12)
[2025-05-08] MEDS: metroNIDAZOLE 500 MG/100 ML PIGGYBACK 100 MG IV (06:40)
[2025-05-08 07:35] VITALS: RESP 18; O2SAT 97
[2025-05-08] MEDS: ALBUTEROL/IPRATROPIUM 3 ML AMPUL INH (07:36)
[2025-05-08 08:00] VITALS: BP 116/58; PULSE 79; RESP 15; TEMP 36.2; O2SAT 99
[2025-05-08] MEDS: PANTOPRAZOLE DR 40 MG TABLET PO (08:36)
[2025-05-08] MEDS: POTASSIUM CHLORIDE 20 MEQ TAB PO (08:36)
[2025-05-08] MEDS: RANOLAZINE 500 MG TAB.ER.12H PO (08:37)
[2025-05-08] MEDS: ESCITALOPRAM 10 MG TABLET 20 MG PO (08:37)
[2025-05-08] MEDS: ASPIRIN EC 81 MG TABLET PO (08:37)
[2025-05-08] MEDS: METOPROLOL IR 25 MG TABLET 12.5 MG PO (08:38)
--- NOTE | 2025-05-08 10:23 | CM.DPC ---
DCP Cont. Reviewed EMR and team rounds for pt's medical updates. Pt has been medically cleared for home d/c. Called dtr to confirm which disciplines are working with her mother from [facility] . Will send the resumption orders with dc summary once available. No further d/c needs indicated at this time.
[2025-05-08] MEDS: ONDANSETRON 4 MG/2 ML INJ IV (10:27)
--- NOTE | 2025-05-08 12:00 | P.DS_ITS ---
History of Present Illness History of Present Illness Chief complaint: Low blood sugar acute exacerbation of chronic misha Narrative: Chief complaint: Voluminous diarrhea weakness and acute exacerbation of chronic congestive heart failure History of present illness: 89-year-old female with past medical history of CHF, coronary disease status post stents, COPD on 3 L of oxygen per nasal cannula at baseline, hyperlipidemia and hypertension presents with nausea, vomiting and diarrhea. Per the patient's report, over the last 1 to 2 days, the patient has been feeling overall poorly. The patient also admits to have some nausea, vomiting and nonbloody diarrhea. The patient has subjective fever and chills today. The patient was noted to have a glucose of 59 this morning. Otherwise the patient denies any chest pain, dysuria, shortness of breath or syncope. The patient admitted to have some lower extremity bilateral edema. Of note the patient recently was admitted here for CHF and was discharged on 05/01/2025. In the emergency room, the patient was hemodynamically stable but was requiring up to 3 L of oxygen per nasal cannula. WBC was 14 creatinine 1.33 BNP 2030 troponin 0.20 UA was negative. Case was discussed with Dr. Blake cardiology who recommended that we admit the patient continued diuresis due to heart failure exacerbation. IV Lasix was given as well as aspirin. No EKG shows no acute changes in T wave or ST segment. Chest x-ray shows no acute finding. [facility] Medical History Chronic respiratory failure with hypoxia Skin cancer NSTEMI (non-ST elevated myocardial infarction) Diastolic heart failure Cardiac arrest Chest pain Hypertension Hyperlipidemia Coronary artery disease Left hamstring muscle strain UTI (urinary tract infection) Surgical History H/O right heart catheterization History of breast implant removal History of breast surgery History of appendectomy History of cholecystectomy History of total abdominal hysterectomy History of coronary artery stent placement Hospital course: Patient's diarrhea stopped with a few doses of intravenous metronidazole congestive heart failure was compensated additional education on fluid restriction torsemide was increased from 10 b.i.d. to 20 mg p.o. b.i.d. Review of systems: No fever or chills rigors No chest pain palpitations No paresthesia paresis Physical examination: Acute oriented elderly female No acute distress HEENT unremarkable Heart irregularly irregular Lungs diminished breath sounds Extremities 2 to 3+ edema lower extremities Assessment and plan: Acute diarrheal illness * Empiric intravenous Flagyl * GI panel Acute chronic diastolic congestive heart failure with acute on chronic hypoxic respiratory failure * Aggressive diuresis * Daily intake and output Acute exacerbation of COPD: * Corticosteroid diet bronchodilators Community-acquired pneumonia * Ceftriaxone azithromycin * Likely only due to enterovirus rhinovirus Chronic coronary artery disease * No signs of complication Morbid obesity: * Complicates management DVT prophylaxis: * Subcutaneous heparin Code status: * Full code blue Disposition: * Discharge to home after seen by PT for after discharge recommendations hopefully this should be fine Time based billing: * 35 minutes were evaluated and involved in this patient with [id number] evaluation physical examination discussion with patient and branch billing payroll clerk review of past medical history objective laboratory and object and imaging findings including direct visualization imaging and discussion with care team Discharge Providers Provider Date of admission: 05/06/25 19:22 Discharge Date: 05/08/25 Primary care physician: Zoe Bass PA-C Consults: 05/08/25 10:21 Consult to Home Health Routine Comment: PT, OT, Bath Aide Reason For Exam: Resumption of [facility] 05/08/25 11:53 Consult to Occupational Therapy Evaluate & Treat Comment: Physician Instructions: Evaluate and treat Consult to Physical Therapy Evaluate & Treat Comment: Physician Instructions: Evaluate and Treat Discharge provider: Lino Soni MD Exam Vital Signs (past 8 hours): - 05/08/25 07:00 05/08/25 07:35 05/08/25 08:00 Temperature 97.2 F L Pulse Rate 79 Respiratory Rate 18 15 Blood Pressure 116/58 L Pulse Oximetry 97 99 Oxygen Delivery Method Nasal Cannula CPAP Oxygen Flow Rate 2 Oxygen Delivery Method CPAP Oxygen Flow Rate 2 Objective Labs 05/07/25 06:00 05/07/25 06:00 Labs: Laboratory Results - last 24 hr 05/07/25 05/07/25 05/08/25 16:46 21:07 07:47 POC Whole Bld Glucose 179 H 191 H 140 H 05/08/25 11:47 POC Whole Bld Glucose 148 H [facility] Medical History Chronic respiratory failure with hypoxia Skin cancer NSTEMI (non-ST elevated myocardial infarction) Diastolic heart failure Cardiac arrest Chest pain Hypertension Hyperlipidemia Coronary artery disease Left hamstring muscle strain UTI (urinary tract infection) Surgical History H/O right heart catheterization History of breast implant removal History of breast surgery History of appendectomy History of cholecystectomy History of total abdominal hysterectomy History of coronary artery stent placement Family History Father Hypertension Diabetes mellitus Mother Hypertension [place] (myocardial infarction) Sister [place] (myocardial infarction) S/P CABG x 4 Social History household members: children Smoking Status: Never smoker alcohol intake: never Discharge Plan Discharge Plan Patient Disposition: Home Discharge orders & Medications Prescriptions: Continued aspirin 81 MG tablet,delayed release (DR/EC) 81 mg PO DAILY Qty: 0 pantoprazole 40 mg Tablet,Delayed Release (Dr/Ec) 40 mg PO DAILY escitalopram oxalate 20 mg Tablet 20 mg PO DAILY insulin lispro [Admelog U-100 Insulin lispro] 100 unit/mL Solution 7 unit SUBCUT AC Qty: 30 0RF insulin lispro [Admelog U-100 Insulin lispro] 100 unit/mL Solution 0 unit SUBCUT ACHS Qty: 30 0RF guaifenesin [Mucus Relief ER] 600 mg Tablet Extended Release 12hr 600 mg PO BID Qty: 60 0RF (DME) miscellaneous medical supply Package See Rx Instructions .Route Qty: 100 2RF Rx Instructions: Needle tips for insulin pen U 100 insulin syringes nystatin 100,000 unit/mL suspension 100,000 unit PO QID Qty: 500 0RF Rx Instructions: administer 1/2 of dose in each side of the mouth nystatin 100,000 unit/gram ointment 1 applic topical BID Qty: 120 1RF nitroglycerin 0.4 mg tablet, sublingual 1 tab sublingual [id number] PRN (Reason: Chest Pain) Patient Comments: take it when needed, last dose unknown rosuvastatin 40 mg tablet 40 mg PO QPM acetaminophen-codeine 300-30 mg tablet 1 tab PO BID PRN (Reason: pain) ipratropium-albuterol 0.5 mg-3 mg(2.5 mg base)/3 mL solution for nebulization 3 ml inhalation DIRECTED PRN (Reason: sob, wheezing) ranolazine 500 mg tablet extended release 12 hr 500 mg PO BID (DME) lancets [FreeStyle Lancets] 28 gauge misc 1 ea MISCELLANEOUS 3XD metoprolol tartrate 25 mg Tablet 12.5 mg PO BID Qty: 30 0RF insulin glargine [Lantus Solostar U-100 Insulin] 100 unit/mL (3 mL) Insulin Pen 28 unit SUBCUT BEDTIME lisinopril 20 mg Tablet 40 mg PO DAILY Qty: 30 3RF Changed torsemide 10 mg tablet 20 mg PO BID Qty: 60 1RF Discontinued potassium chloride 20 mEq tablet extended release 20 meq PO BID Qty: 60 2RF prednisone 10 mg tablet 10 mg PO DIRECTED Qty: 30 0RF Rx Instructions: 4 tabs daily for 3 days, then 2 tabs daily for 3 days, then resume prior chronic dose of 1 tab daily. Follow up/Referrals: Zoe Bass PA-C [Primary Care Provider, Family Practice] Diet/Activity/Treatments Diet: Low-sodium Diet comment: 1500 cc fluid restriction Visit Report/Discharge Packet Stand Alone Forms: [employer], Patient Portal/API, Stroke Signs & Symptoms, Influenza Vaccine Info, Notice of Privacy Practices, Inpatient vs Outpatient, Pneumococcal Vaccine Info, Pt. Rights & Responsibilities Discharge Data Primary Care Provider: Zoe Bass
--- NOTE | 2025-05-08 12:40 | PT.IIE ---
Current Diagnoses Heart failure, unspecified (05/06/25) Surgical History (Last Reviewed 02/03/25 @ 18:49 by William Velázquez MD) H/O right heart catheterization History of appendectomy History of breast implant removal History of breast surgery History of cholecystectomy History of coronary artery stent placement History of total abdominal hysterectomy Medical History (Last Reviewed 02/03/25 @ 18:49 by William Velázquez MD) Cardiac arrest Chest pain Chronic respiratory failure with hypoxia Coronary artery disease Diastolic heart failure Hyperlipidemia Hypertension Left hamstring muscle strain NSTEMI (non-ST elevated myocardial infarction) Skin cancer UTI (urinary tract infection) Physical Therapy Inpatient Evaluation/Re-Eval M1 PT IP Prior Functional Status Start: 05/08/25 12:40 Freq: Status: Active Protocol: Document 05/08/25 12:41 NW (Rec: 05/08/25 12:51 NW [id number]) Medical Review Prior Functional Status Communication I Mobility and Gait family assists pt with stand pivot transfers from to BSC/toilet. Has power recliner to help stand. Has not ambulated in past few weeks. Was ambulating with FWW 5- 10 ft a month ago. Activities of Daily family assists Living and IADL's Prior Functional 3 L of O2 baseline Level (Other details ) Social History Household Members children Living Arrangements House Number of Floors ( One Floor Floors) Number of Stairs To ramp to enter Enter/Railing? Home Environment High Toilet,Walk in Shower,Ramp Home Equipment Four Wheel Walker,Power Wheelchair/Scooter,Bedside Commode,Lift Recliner,Grab Bars In Shower M2 PT-IP Current Condition Start: 05/08/25 12:40 Freq: Status: Active Protocol: Document 05/08/25 12:41 NW (Rec: 05/08/25 12:51 NW [id number]) Physical Therapy Current Condition Current Condition Evaluation Date 05/08/25 Treatment Diagnosis CHF, Weakness Onset Date 05/07/25 M3 PT-IP Subjective Start: 05/08/25 12:40 Freq: Status: Active Protocol: Document 05/08/25 12:41 NW (Rec: 05/08/25 12:51 NW [id number]) Subjective Physical Therapy Visit Type Type Initial Evaluation Visit Start Time 12:15 Visit Stop Time 12:40 Number of LINK AND LINK KNITTING MACHINE OPERATOR Visits 0 Physical Therapy Visit Comments Patient Comments Pt states she wants to go home. Is found eating lunch in bed. Is willing to participate and transfer to bed side chair. Patient Goals Go home. M4 PT-IP Mobility and Gait Start: 05/08/25 12:40 Freq: Status: Active Protocol: Document 05/08/25 12:41 NW (Rec: 05/08/25 12:51 NW [id number]) PT-Bed Mobility Assessment Supine to Sit Supine to Sit Minimal Assistance,1 Person Assistance,Head of Bed Elevated,Bedrails PT-Transfer Assessment Sit to and From Stand Sit to and from Minimal Assistance,1 Person Assistance,Use of Upper Stand Extremities Equipment Transfer Assistive Gait Belt,Front Wheeled Walker Device Transfers Transfer Destination Chair Transfer Technique Stand Pivot Transfer Ability Level of Assist Contact Guard Assistance,1 Person Assistance,Use of Upper Extremities Comments Mobility Comments Able to perform STS with Lisset, fair power production from elevated surfaces. Cues necessary to breathe in through nose and for UE placement with FWW. Able to maintain balance in stance and perform stand pivot with FWW to bed side chair. Poor eccentric control. Vitals remain WFL. Gait Assessment Comments Gait Comments DNT PT-Balance Assessment Sitting Balance and Reactions Static Sitting Good Balance Ability Dynamic Sitting Fair Balance Ability Standing Balance and Reactions Static Standing Poor Balance Ability Dynamic Standing Poor Balance Ability Device Used FWW Functional Assessments Other Functional Tests standing tolerance 30-40 seconds Performed M5 PT-IP Objective Assessments Start: 05/08/25 12:40 Freq: Status: Active Protocol: Document 05/08/25 12:41 NW (Rec: 05/08/25 12:51 NW [id number]) Orientation Orientation/Cognition Level of Alertness Alert Orientation Name,Age,Birthday,Month,Date,Year,Day of Week,Place, Situation Gross Range of Motion Lower Extremity ROM Assessment Within Functional Limits Strength Lower Extremity Strength Assessment Within Functional Limits Sensation Assessment Sensation Gross Sensation WNL M6 PT-IP Treatment Start: 05/08/25 12:40 Freq: Status: Active Protocol: Document 05/08/25 12:41 NW (Rec: 05/08/25 12:51 NW [id number]) Physical Therapy Treatment Education Education Provided Safety Other Treatments Other Treatment Education on importance to participate with functional Performed mobility to maintain current level of function. Education on FWW AD management. M7 PT-IP Assessment and Plan Start: 05/08/25 12:40 Freq: Status: Active Protocol: Document 05/08/25 12:41 NW (Rec: 05/08/25 12:51 NW [id number]) PT Summary Assessment and Plan Potential Rehabilitation Fair Potential Status of Condition Stable at Evaluation Summary Impairments ROM,Strength,Balance,Bed Mobility,Transfers,Gait, Activity Tolerance Progress Towards Progressing Toward Goals Goals Assessment Summary Lida is a 89 yr old female re-admitted for CHF exacerbation after being discharged home with home health within the last week. Pt at baseline has 05/12 family support and states she is currently only performing stand pivot transfers from WC/lift recliner to bed side commode. Prior to previous hospital admit a month ago pt was ambulating short household distance of 10-20 ft with 4WW. Today pt is able to perform bed mobility Lisset, STS from edge of bed at Lisset, and stand pivot with FWW at CGA within functional limits for vitals. Pt expresses desire to go home and continue with home health. Pt has adequate family support to facilitate and could return home with home health once medically stable. Goals Bed Mobility Goal Standby Assistance Transfer Goal Standby Assistance,Front Wheeled Walker Gait Goal Contact Guard Assistance,Front Wheel Walker Gait Distance 10 ft Days to Meet Goals 3 Frequency of Treatment Frequency Of Once a Day Treatment Treatment Plan Physical Therapy Bed Mobility Training,Transfer Training,Gait Training, Treatment Plan Therapeutic Exercise,Balance Retraining,Discharge Planning,Neuromuscular Re-ed Other increase standing tolerance and transfer reps Recommendations and Next Treatment Focus Precautions Other Precautions falls risk Weight Bearing Status Weight Bearing Weight Bear as Tolerated Status Recommendations To Nursing Amount of Assist 1 Person Assist Needed Discharge Recommendations PT Discharge Home with 05/12 Assist Available,Home Health Recommendations Transportation Needs Private Vehicle at Discharge - PT assist 1
--- NOTE | 2025-05-08 12:40 | OT.IPNOTE ---
Pt here for acute CHF and at her baseline for ADL needs (Pt's family assists for all ADL and mobility needs) and able to transfer with one person assist with PT. No OT services needed, therefore discharge OT orders.
--- NOTE | 2025-05-08 15:21 | PC.NURSE ---
1515: discharge instructions given and understood by pt and family. PIV removed. tele removed. All belongings with pt.VSWNS.pt transported to private vehicle via wheelchair.
== END 2025-05-08 15:20 | disposition home health service (06) | DRG 291 ==
LOC: ED 19:22 → AC 19:23
PROVIDERS: Emergency Medicine; Admitting Provider Internal Medicine; Emergency Provider Student in an Organized Health Care Education/Training Program; Family Provider Internal Medicine; PCP Physician Assistant Medical; Referring Provider Student in an Organized Health Care Education/Training Program; Visit Provider Internal Medicine
DX: I11.0 Hypertensive heart disease with heart failure (principal); J18.9 Pneumonia, unspecified organism; J96.21 Acute and chronic respiratory failure with hypoxia; J44.1 Chronic obstructive pulmonary disease with (acute) exacerbation; J44.0 Chronic obstructive pulmonary disease with (acute) lower respiratory infection; Z68.42 Body mass index [BMI] 45.0-49.9, adult; I50.9 Heart failure, unspecified; I25.10 Atherosclerotic heart disease of native coronary artery without angina pectoris; F32.A Depression, unspecified; E11.649 Type 2 diabetes mellitus with hypoglycemia without coma; K21.9 Gastro-esophageal reflux disease without esophagitis; E78.5 Hyperlipidemia, unspecified; A08.4 Viral intestinal infection, unspecified; E66.01 Morbid (severe) obesity due to excess calories; Z95.5 Presence of coronary angioplasty implant and graft; Z99.81 Dependence on supplemental oxygen; Z79.4 Long term (current) use of insulin
CPT/HCPCS: 36415; 71045; 80048; 80053; 81001; 82550; 82962; 83690; 83735; 83880; 84484; 85025; 93005; 93010; 94640; 96365; 96372; 97161; 97530; 99285; J1938; J2405